=== PATIENT | female | born 1940 | race Caucasian/White ===

== ENCOUNTER 2020-03-12 15:29 | Outpatient (REF) | payer MEDICARE, SELFPAY ==
--- NOTE | 2020-03-12 15:37 | ECG_ITS ---
Test Reason : PREOP EVAL Blood Pressure : / mmHG Vent. Rate : 075 BPM Atrial Rate : 075 BPM P-R Int : 148 ms QRS Dur : 080 ms QT Int : 404 ms P-R-T Axes : 018 011 019 degrees QTc Int : 451 ms Normal sinus rhythm Normal ECG No previous ECGs available Referred By: Mireya Bolivar Electronically Signed By:KIMANI TENORIO MD
[2020-03-12 16:33] LABS: MANUAL DIFF FLAG NO
[2020-03-12 16:50] LABS: Basophils Absolute Auto 0.1 X10*3/uL (0.0-0.2); Basophils Percent Auto 0.9 % (0-2); Eosinophils Absolute Auto 0.2 X10*3/uL (0.0-0.4); Eosinophils Percent Auto 2.4 % (0-4); Hematocrit 39.9 % (37-47); Hemoglobin 13.6 g/dl (12.0-16.0); Imm Gran Abs Auto 0.01 X10*3/uL (0.00-0.03); Imm Gran Pct Auto 0.1 % (0.0-0.4); Lymphocytes Absolute Auto 3.2 X10*3/uL (1.2-4.9); Lymphocytes Percent Auto 41.2 % (20-40); Mean Corpuscular HGB Conc 34.1 g/dl (31.0-35.0); Mean Corpuscular Hemoglobin 31.5 pg (27.0-33.0); Mean Corpuscular Volume 92.4 fL (80-98); Mean Platelet Volume 9.8 fL (9.4-12.3); Monocytes Absolute Auto 0.6 X10*3/uL (0.1-1.2); Monocytes Percent Auto 8.4 % (2-11); Neutrophils Absolute Auto 3.6 X10*3/uL (2.0-8.3); Platelet Count 288 X10*3/uL (160-400); Red Blood Count 4.32 X10*6/uL (4.20-5.50); Red Cell Distribution Width 12.2 % (11.0-16.0); White Blood Count 7.7 X10*3/uL (4.8-10.8)
[2020-03-12 17:08] LABS: Alanine Aminotransferase 25 U/L (0-31); Albumin Level 4.4 g/dL (3.5-5.0); Alkaline Phosphatase 84 U/L (39-117); Anion Gap 12 (12-20); Aspartate Amino Transferase 23 U/L (5-31); Bilirubin Total 0.5 mg/dL (0.0-1.0); Blood Urea Nitrogen 21 mg/dL (9-16); Calcium 9.4 mg/dL (8.4-10.2); Carbon Dioxide 31 mmol/L (22-29); Chloride 99 mmol/L (96-108); Estimated Glomerular Filt Rate > 60; Glucose Random 95 mg/dL (60-115); Potassium 3.7 mmol/l (3.3-5.1); Sodium 138 mmol/L (135-145); Total Protein 6.8 g/dL (6.5-8.0)
== END 2020-03-12 15:30 | disposition home or self-care (01) ==
LOC: HO.LAB 15:29
PROVIDERS: PCP Internal Medicine; Visit Provider Physician Assistant
DX: Z01.818 Encounter for other preprocedural examination (principal)
CPT/HCPCS: 36415; 80053; 85025; 93005

== ENCOUNTER 2020-05-11 08:53 | Outpatient (REF) | payer MEDICARE, SELFPAY ==
[2020-05-11 10:14] LABS: Alanine Aminotransferase 18 U/L (0-31); Albumin Level 4.4 g/dL (3.5-5.0); Alkaline Phosphatase 79 U/L (39-117); Anion Gap 13 (12-20); Aspartate Amino Transferase 19 U/L (5-31); Blood Urea Nitrogen 19 mg/dL (9-16); Calcium 9.8 mg/dL (8.4-10.2); Carbon Dioxide 31 mmol/L (22-29); Chloride 99 mmol/L (96-108); Estimated Glomerular Filt Rate 60; Glucose Random 108 mg/dL (60-115); Potassium 4.2 mmol/l (3.3-5.1); Sodium 139 mmol/L (135-145)
== END 2020-05-11 08:54 | disposition home or self-care (01) ==
LOC: HO.LAB 08:53
PROVIDERS: PCP Internal Medicine; Visit Provider Physician Assistant
DX: I10 Essential (primary) hypertension (principal)
CPT/HCPCS: 80053

== ENCOUNTER 2020-08-31 09:07 | Outpatient (REF) | payer MEDICARE, SELFPAY ==
--- NOTE | ~2020-08-31 | MM_ITS ---
EXAMINATION: MM SCREENING DIGITAL BREAST TOMOSYNTHESIS, BILATERAL CLINICAL INFORMATION: Screening. Asymptomatic. The lifetime risk of breast cancer based on the Tyrer-Cuzick Model is 6.4%. COMPARISON: Mammography: May 20, 2019 and studies dating back to November 11, 2009 TECHNIQUE: Digital breast tomosynthesis is performed in both the craniocaudal and mediolateral oblique views along with computer-aided detection (CAD). Synthesized 2D images are generated from the tomosynthesis. FINDINGS: There are scattered areas of fibroglandular density (ACR BI-RADS breast composition Category b). There are no significant masses, abnormal calcifications, or other abnormalities. Stable region of architectural distortion seen deep lateral aspect of the right breast. MM/MM tomosynthesis screening BI IMPRESSION: There are no significant changes from prior study. ASSESSMENT: BI-RADS 2: Benign RECOMMENDATION: Routine annual mammography screening. This patient's information was entered into a reminder system with a target due date for their next mammogram.
== END 2020-08-31 09:08 | disposition home or self-care (01) ==
LOC: HO.MAMMO 09:07
PROVIDERS: Visit Provider Internal Medicine
DX: Z12.31 Encounter for screening mammogram for malignant neoplasm of breast (principal)
CPT/HCPCS: 77063; 77067

== ENCOUNTER 2020-10-06 08:22 | Outpatient (REF) | payer MEDICARE, SELFPAY ==
--- NOTE | 2020-10-06 18:07 | MHC.AU.AHA ---
Adult Audiological Evaluation Date of Visit: 10/06/20 Reason for Appointment: Audiological evaluation to monitor the status of Ms. Barrera's hearing loss. She has a known bilateral sensorineural hearing loss and uses hearing aids binaurally. She denies any significant changes to her hearing or medical history. Previous Hearing Test Results: [facility] [place], 07/16/2019- Mild to moderately severe sensorineural hearing loss bilaterally. Medical History: Medical History: Dizziness or Unsteadiness, High Blood Pressure, high cholesterol Hearing Instrument History- Right Ear: Clothing Supervisor: PhonoNoise Model: Audeo M90-R Serial Number: [id number] Battery Size: Rechargeable Repair Warranty: 09/15/2021 Loss and Damage Warranty: 09/15/2021 Dispensed By: [facility] Date of Fittin06/26/2018 Hearing Instrument History- Left Ear: Clothing Supervisor: Mobiveryak Model: White Rabbit Brewingeo M90-R Serial Number: [id number] Battery Size: Rechargeable Warranty: 09/15/2021 Loss and Damage Warranty: 09/15/2021 Dispensed By: [facility] Date of Fittin06/26/2018 Otoscopy: Right Ear: Unremarkable Left Ear: Unremarkable Tympanometry: Tympanometry performed due to: To assess integrity of the middle ear system Right Ear: Normal Middle Ear System (Type A) Left Ear: Normal Middle Ear System (Type A) Hearing Evaluation: Transducer(s) Used: Insert Earphones, Bone Conduction Method: Conventional Audiometry Stimuli Used: Pure Tones Right Ear: Description of Hearing: Normal hearing from 250-500 Hz, sloping to a mild to moderately severe sensorineural hearing loss bilaterally. Left Ear: Description of Hearing: Normal hearing from 250-500 Hz, sloping to a mild to moderately severe sensorineural hearing loss bilaterally. Speech Recognition Threshold (SRT): Method Used: Monitored Live Voice Stimuli Used: Spondee Words Right Ear: 30 dBHL Left Ear: 30 dBHL Word Discrimination: Method: Recorded Lists Word Lists Used: NU-6 Right Ear: 96% at 70 dBHL Left Ear: 100% at 70 dBHL Comparison: Compared to the most recent evaluation: Hearing is stable. Recommendations: Audiological re-evaluation in one year. Hearing aid maintenance performed today. Hearing aid(s) reprogrammed with updated test results. Diagnosis: Primary Diagnosis: H90.3 Bilateral Sensorineural Hearing Loss Services Performed: Comprehensive Audiological Evaluation (CPT 99719) Tympanometry (CPT 13419) Signature: Provider: Kyleigh Cummings, CCC-A
== END 2020-10-06 08:23 | disposition home or self-care (01) ==
LOC: HO.SH 08:22
PROVIDERS: Visit Provider Physician Assistant
DX: H90.3 Sensorineural hearing loss, bilateral (principal)
CPT/HCPCS: 92557; 92567

== ENCOUNTER 2021-05-18 08:56 | Outpatient (REF) | payer MEDICARE, SELFPAY ==
[2021-05-18 09:06] LABS: MANUAL DIFF FLAG NO
[2021-05-18 09:31] LABS: Basophils Absolute Auto 0.1 X10*3/uL (0.0-0.2); Basophils Percent Auto 1.2 % (0-2); Eosinophils Absolute Auto 0.2 X10*3/uL (0.0-0.4); Eosinophils Percent Auto 3.5 % (0-4); Hematocrit 40.1 % (37.0-47.0); Hemoglobin 13.3 g/dl (12.0-16.0); Imm Gran Abs Auto 0.01 X10*3/uL (0.00-0.03); Imm Gran Pct Auto 0.2 % (0.0-0.4); Lymphocytes Absolute Auto 2.5 X10*3/uL (1.2-4.9); Lymphocytes Percent Auto 43.2 % (20-40); Mean Corpuscular HGB Conc 33.2 g/dl (31.0-35.0); Mean Corpuscular Hemoglobin 28.3 pg (27.0-33.0); Mean Corpuscular Volume 85.3 fL (80.0-98.0); Mean Platelet Volume 9.3 fL (9.4-12.3); Monocytes Absolute Auto 0.6 X10*3/uL (0.1-1.2); Monocytes Percent Auto 10.1 % (2-11); Neutrophils Absolute Auto 2.4 x10*3/uL (2.0-8.3); Neutrophils Percent Auto 41.8 % (45-73); Platelet Count 314 X10*3/uL (160-400); Red Cell Distribution Width 13.4 % (11.0-16.0); White Blood Count 5.7 X10*3/uL (4.8-10.8)
[2021-05-18 09:56] LABS: Alanine Aminotransferase 19 U/L (0-31); Albumin Level 4.4 g/dL (3.5-5.0); Alkaline Phosphatase 78 U/L (39-117); Anion Gap 11 (12-20); Aspartate Amino Transferase 21 U/L (5-31); Bilirubin Total 0.8 mg/dL (0.0-1.0); Blood Urea Nitrogen 16 mg/dL (9-16); Carbon Dioxide 31 mmol/L (22-29); Chloride 102 mmol/L (96-108); Cholesterol 159 mg/dL; Estimated Glomerular Filt Rate 58; Glucose Random 107 mg/dL (60-115); HDL Cholesterol 47 mg/dL; LDL Cholesterol Calculated 89 mg/dl; Potassium 4.1 mmol/L (3.3-5.1); Sodium 140 mmol/L (135-145); Triglycerides 116 mg/dL
== END 2021-05-18 08:57 | disposition home or self-care (01) ==
LOC: HO.LAB 08:56
PROVIDERS: PCP Internal Medicine; Visit Provider Physician Assistant
DX: E78.2 Mixed hyperlipidemia (principal)
CPT/HCPCS: 36415; 80053; 80061; 85025

== ENCOUNTER 2021-07-07 11:28 | Outpatient (REF) | payer SELFPAY | END 2021-07-07 11:29 | disposition home or self-care (01) | LOC: HO.HAP 11:28 | PROVIDERS: Visit Provider Internal Medicine | DX: Z13.89 Encounter for screening for other disorder (principal) ==

== ENCOUNTER 2021-07-15 12:48 | Outpatient (REF) | payer SELFPAY | END 2021-07-15 12:49 | disposition home or self-care (01) | LOC: HO.HAP 12:48 | PROVIDERS: Visit Provider Internal Medicine | DX: Z13.89 Encounter for screening for other disorder (principal) ==

== ENCOUNTER 2021-08-05 09:52 | Outpatient (REF) | payer SELFPAY | END 2021-08-05 09:53 | disposition home or self-care (01) | LOC: HO.HAP 09:52 | PROVIDERS: Visit Provider Internal Medicine | DX: Z13.89 Encounter for screening for other disorder (principal) ==

== ENCOUNTER 2021-08-18 10:54 | Outpatient (REF) | payer SELFPAY | END 2021-08-18 10:55 | disposition home or self-care (01) | LOC: HO.HAP 10:54 | PROVIDERS: Visit Provider Internal Medicine | DX: Z13.89 Encounter for screening for other disorder (principal) ==

== ENCOUNTER 2021-09-02 10:09 | Outpatient (REF) | payer MEDICARE, SELFPAY ==
--- NOTE | ~2021-09-02 | MM_ITS ---
EXAMINATION: MM SCREENING DIGITAL BREAST TOMOSYNTHESIS, BILATERAL CLINICAL INFORMATION: Screening. Asymptomatic. The lifetime risk of breast cancer based on the Tyrer-Cuzick Model is 5%. COMPARISON: Mammography: 08/31/2020, 05/20/2019, 05/15/2018 TECHNIQUE: Digital breast tomosynthesis is performed in both the craniocaudal and mediolateral oblique views along with computer-aided detection (CAD). Synthesized 2D images are generated from the tomosynthesis. FINDINGS: There are scattered areas of fibroglandular density (ACR BI-RADS breast composition Category b). There are no significant masses, abnormal calcifications, or other abnormalities. There is a dermal lesion overlying the posterior aspect 10:30 o'clock left breast. Bilateral vascular and some scattered benign round calcifications are again noted. MM/MM tomosynthesis screening BI IMPRESSION: No mammographic evidence of malignancy. ASSESSMENT: BI-RADS 2: Benign RECOMMENDATION: Routine annual mammography screening. This patient's information was entered into a reminder system with a target due date for their next mammogram.
== END 2021-09-02 10:10 | disposition home or self-care (01) ==
LOC: HO.MAMMO 10:09
PROVIDERS: PCP Internal Medicine; Visit Provider Internal Medicine
DX: Z12.31 Encounter for screening mammogram for malignant neoplasm of breast (principal)
CPT/HCPCS: 77063; 77067

== ENCOUNTER 2022-01-06 10:13 | Outpatient (REF) | payer MEDICARE, SELFPAY ==
--- NOTE | 2022-01-06 12:55 | MHC.AU.AHA ---
Adult Audiological Evaluation Date of Visit: 01/06/22 Reason for Appointment: History of hearing loss. Patient suspects there has been a small change in her hearing since her last evaluation on 10/06/2020. Previous Hearing Test Results: At this clinic on 10/06/2020- Normal to severe sensorineural hearing loss bilaterally Medical History: Medical History: Dizziness or Unsteadiness, High Blood Pressure. Patient reports her seasonal allergies have been bad this summer. Hearing Instrument History- Right Ear: Ivory Carver: Huitongda Model: Origen Therapeuticseo M90-R Serial Number: [id number] Battery Size: Rechargeable Repair Warranty: 09/15/2021 Loss and Damage Warranty: 09/15/2021 Dispensed By: [facility] Date of Fittin06/26/2018 Hearing Instrument History- Left Ear: Ivory Carver: Ella Healthak Model: Origen Therapeuticseo M90-R Serial Number: [id number] Battery Size: Rechargeable Warranty: 09/15/2021 Loss and Damage Warranty: 09/15/2021 Dispensed By: [facility] Date of Fittin06/26/2018 Otoscopy: Right Ear: Unremarkable Left Ear: Unremarkable Tympanometry: Tympanometry performed due to: To assess integrity of the middle ear system Right Ear: Normal Middle Ear System (Type A) Left Ear: Normal Middle Ear System (Type A) Hearing Evaluation: Transducer(s) Used: Insert Earphones Method: Conventional Audiometry Stimuli Used: Pure Tones Right Ear: Description of Hearing: Normal sloping to severe sensorineural hearing loss Left Ear: Description of Hearing: Mild sloping to severe sensorineural hearing loss Speech Recognition Threshold (SRT): Method Used: Recorded Lists Stimuli Used: Spondee Words Right Ear: 30 dBHL Left Ear: 30 dBHL Word Discrimination: Method: Recorded Lists Word Lists Used: W-22 Right Ear: 92% at 70 dBHL Left Ear: 96% at 70 dBHL Most Comfortable Level (MCL): Right Ear: 70 dBHL Left Ear: 70 dBHL Comparison: Compared to most recent evaluation: Slight decreases noted Recommendations: Audiological re-evaluation in one year. See Hearing Aid Follow-Up note for more information. Diagnosis: Primary Diagnosis: H90.3 Bilateral Sensorineural Hearing Loss Signature: Provider: Kyleigh Jane, GERMAN-A
--- NOTE | 2022-01-06 12:56 | MHC.AU.HFU ---
Hearing Instrument Follow-Up- Binaural Date of Visit: 01/06/22 Right Ear: Education Technician: Phonak Model: Audeo M90-R Serial Number: [id number] Repair Warranty: 09/15/2021 Loss and Damage Warranty: 09/15/2021 Battery Size: Rechargeable Explosive Ordnance Disposal Manager: Size 1 M Type of Dome: Small Vented Type of Wax Guard: Cerushield Left Ear: Education Technician: Phonak Model: Audeo M90-R Serial Number: [id number] Repair Warranty: 09/15/2021 Loss and Damage Warranty: 09/15/2021 Battery Size: Rechargeable Explosive Ordnance Disposal Manager: Size 1 M Type of Dome: Small Vented Type of Wax Guard: Cerushield Follow-Up Summary: Patient was seen for audiological re-evaluation (see separate report for details). Patient reports the hearing aids have been occasionally buzzing. Hearing aid maintenance performed. Hearing aid programming updated with today's results. It was noted that she had on cap domes, and the feedback canceller was cutting out some high frequency gain already. Re-raun feedback canceller with no improvement in feedback or gain. Tried small vented domes and re-ran feedback canceller, with no improvement. The receivers did not seem to be going deep enough into her ears, which was likely preventing an adequate seal. Replaced 0M receivers with 1M receivers with significant improvement in feedback. Re-ran feedback finance manager which brought back more high frequency gain. Patient was pleased with the sound and fit of the instruments. Recommendations: Hearing instrument follow-up or maintenance as needed. Diagnosis Code(s): Primary Diagnosis: H90.3 Bilateral Sensorineural Hearing Loss Signature: Provider: Kyleigh Jane, [facility]
== END 2022-01-06 10:14 | disposition home or self-care (01) ==
LOC: HO.SH 10:13
PROVIDERS: Visit Provider Physician Assistant
DX: Z01.118 Encounter for examination of ears and hearing with other abnormal findings (principal); H90.3 Sensorineural hearing loss, bilateral
CPT/HCPCS: 92557; 92567

== ENCOUNTER 2022-01-27 06:55 | Outpatient (REF) | payer MEDICARE, SELFPAY ==
[2022-01-27 11:29] LABS: MANUAL DIFF FLAG NO
[2022-01-27 11:42] LABS: Prothrombin Time 11.1 SEC (10.0-13.1)
[2022-01-27 11:43] LABS: Basophils Absolute Auto 0.1 X10*3/uL (0.0-0.2); Basophils Percent Auto 1.3 % (0-2); Eosinophils Absolute Auto 0.3 X10*3/uL (0.0-0.4); Eosinophils Percent Auto 5.3 % (0-4); Hematocrit 38.9 % (37.0-47.0); Hemoglobin 13.1 g/dl (12.0-16.0); Imm Gran Abs Auto 0.03 X10*3/uL (0.00-0.03); Imm Gran Pct Auto 0.6 % (0.0-0.4); Lymphocytes Absolute Auto 1.7 X10*3/uL (1.2-4.9); Lymphocytes Percent Auto 35.6 % (20-40); Mean Corpuscular HGB Conc 33.7 g/dl (31.0-35.0); Mean Corpuscular Hemoglobin 27.9 pg (27.0-33.0); Mean Corpuscular Volume 82.9 fL (80.0-98.0); Mean Platelet Volume 9.7 fL (9.4-12.3); Monocytes Absolute Auto 0.5 X10*3/uL (0.1-1.2); Monocytes Percent Auto 11.2 % (2-11); Neutrophils Absolute Auto 2.2 x10*3/uL (2.0-8.3); Platelet Count 311 X10*3/uL (160-400); Red Blood Count 4.69 X10*6/uL (4.20-5.50); Red Cell Distribution Width 14.3 % (11.0-16.0); White Blood Count 4.8 X10*3/uL (4.8-10.8)
[2022-01-27 11:54] LABS: Estimated Average Glucose 111 mg/dL; Hemoglobin A1c % 5.5 %
[2022-01-27 12:19] LABS: Alanine Aminotransferase 21 U/L (0-31); Albumin Level 4.2 g/dL (3.5-5.0); Alkaline Phosphatase 78 U/L (39-117); Anion Gap 16 (12-20); Aspartate Amino Transferase 21 U/L (5-31); Bilirubin Total 0.8 mg/dL (0.0-1.0); Blood Urea Nitrogen 16 mg/dL (9-16); Calcium 9.4 mg/dL (8.4-10.2); Carbon Dioxide 29 mmol/L (22-29); Chloride 97 mmol/L (96-108); Cholesterol 222 mg/dL; Estimated Glomerular Filt Rate 59; Glucose Fasting 107 mg/dL (60-99); HDL Cholesterol 47 mg/dL; LDL Cholesterol Calculated 141 mg/dl; Potassium 3.8 mmol/L (3.3-5.1); Sodium 138 mmol/L (135-145); Total Protein 6.9 g/dL (6.5-8.0); Triglycerides 170 mg/dL
[2022-01-27 12:39] LABS: TSH reflex Free T4 2.96 uIU/mL (0.32-4.0)
[2022-01-27 14:05] LABS: Appearance Urine Clear; Color Urine Yellow; Glucose Urine UA Negative (Negative); Leukocyte Esterase Urine Trace (Negative); Nitrite Urine Negative (Negative); PH 6.5 (5.0-8.0); Urine Blood Negative (Negative); Urine Ketones Negative (Negative); Urine Protein Negative (Neg-Trace)
[2022-01-27 14:10] LABS: Bacteria Urine None Seen (None Seen); Hyaline Casts Urine 0-2 /LPF (0-2); RBC Urine 0-2 /HPF (0-2); Squamous Epithelial Cell Urine 0-2 /HPF (0-2); WBC Urine 0-5 /HPF (0-5)
== END 2022-01-27 06:56 | disposition home or self-care (01) ==
LOC: HO.HMGCLDS 06:55
PROVIDERS: PCP Internal Medicine; Visit Provider Internal Medicine
DX: E55.9 Vitamin D deficiency, unspecified (principal); E78.5 Hyperlipidemia, unspecified; R73.9 Hyperglycemia, unspecified; I10 Essential (primary) hypertension
CPT/HCPCS: 36415; 80053; 80061; 81001; 83036; 84443; 85025; 85610

== ENCOUNTER 2022-09-04 10:18 | Outpatient (REF) | payer MEDICARE, SELFPAY ==
--- NOTE | ~2022-09-04 | MM_ITS ---
EXAMINATION: MM SCREENING DIGITAL BREAST TOMOSYNTHESIS, BILATERAL CLINICAL INFORMATION: Screening. Asymptomatic. The lifetime risk of breast cancer based on the Tyrer-Cuzick Model is 4%. COMPARISON: Mammography: 09/02/2021, 08/31/2020, 05/20/2019 TECHNIQUE: Digital breast tomosynthesis is performed in both the craniocaudal and mediolateral oblique views along with computer-aided detection (CAD). Synthesized 2D images are generated from the tomosynthesis. FINDINGS: There are scattered areas of fibroglandular density (ACR BI-RADS breast composition Category b). There are no significant masses, abnormal calcifications, or other abnormalities. No architectural abnormality or developing density or significant change from prior studies. Again, there is a dermal lesion overlying the posterior medial left breast. The axilla are unremarkable. MM/MM tomosynthesis screening BI IMPRESSION: No mammographic evidence of malignancy. ASSESSMENT: BI-RADS 2: Benign RECOMMENDATION: Routine annual mammography screening. This patient's information was entered into a reminder system with a target due date for their next mammogram.
== END 2022-09-04 10:19 | disposition home or self-care (01) ==
LOC: HO.MAMMO 10:18
PROVIDERS: PCP Internal Medicine; Visit Provider Internal Medicine
DX: Z12.31 Encounter for screening mammogram for malignant neoplasm of breast (principal)
CPT/HCPCS: 77063; 77067

== ENCOUNTER 2022-10-16 09:47 | Outpatient (REF) | payer MEDICARE, SELFPAY ==
[2022-10-16 11:20] LABS: MANUAL DIFF FLAG NO
[2022-10-16 11:33] LABS: Hematocrit 35.3 % (37.0-47.0); Hemoglobin 11.9 g/dl (12.0-16.0); Imm Gran Abs Auto 0.01 X10*3/uL (0.00-0.03); Imm Gran Pct Auto 0.2 % (0.0-0.4); Lymphocytes Absolute Auto 2.3 X10*3/uL (1.2-4.9); Lymphocytes Percent Auto 43.6 % (20-40); Mean Corpuscular HGB Conc 33.7 g/dl (31.0-35.0); Mean Corpuscular Hemoglobin 26.4 pg (27.0-33.0); Mean Corpuscular Volume 78.3 fL (80.0-98.0); Mean Platelet Volume 9.7 fL (9.4-12.3); Monocytes Absolute Auto 0.5 X10*3/uL (0.1-1.2); Monocytes Percent Auto 9.4 % (2-11); Neutrophils Absolute Auto 2.4 x10*3/uL (2.0-8.3); Neutrophils Percent Auto 46.8 % (45-73); Platelet Count 288 X10*3/uL (160-400); Red Blood Count 4.51 X10*6/uL (4.20-5.50); Red Cell Distribution Width 15.9 % (11.0-16.0); White Blood Count 5.2 X10*3/uL (4.8-10.8)
[2022-10-16 12:09] LABS: Alanine Aminotransferase 14 U/L (0-31); Albumin Level 4.2 g/dL (3.5-5.0); Alkaline Phosphatase 67 U/L (39-117); Anion Gap 11 (12-20); Aspartate Amino Transferase 17 U/L (5-31); Bilirubin Total 0.5 mg/dL (0.0-1.0); Blood Urea Nitrogen 24 mg/dL (9-16); Calcium 9.4 mg/dL (8.4-10.2); Carbon Dioxide 32 mmol/L (22-29); Chloride 99 mmol/L (96-108); Cholesterol 190 mg/dL; Estimated Glomerular Filt Rate 59; Glucose Fasting 93 mg/dL (60-99); HDL Cholesterol 48 mg/dL; LDL Cholesterol Calculated 123 mg/dl; Potassium 3.5 mmol/L (3.3-5.1); Sodium 138 mmol/L (135-145); Total Protein 6.6 g/dL (6.5-8.0); Triglycerides 97 mg/dL; Vitamin D 25-OH Total 23.3 ng/mL (>30)
[2022-10-16 16:40] LABS: Appearance Urine Turbid; Color Urine Yellow; Glucose Urine UA Negative (Negative); Leukocyte Esterase Urine Negative (Negative); Nitrite Urine Negative (Negative); Urine Blood Negative (Negative); Urine Ketones Negative (Negative); Urine Protein Negative (Neg-Trace)
== END 2022-10-16 09:48 | disposition home or self-care (01) ==
LOC: HO.HMGCLDS 09:47
PROVIDERS: PCP Internal Medicine; Visit Provider Internal Medicine
DX: R35.0 Frequency of micturition (principal); R73.9 Hyperglycemia, unspecified; E78.5 Hyperlipidemia, unspecified; I10 Essential (primary) hypertension; E55.9 Vitamin D deficiency, unspecified
CPT/HCPCS: 36415; 80053; 80061; 81003; 82306; 85025

== ENCOUNTER 2022-12-25 11:39 | Outpatient (REF) | payer SELFPAY ==
--- NOTE | 2022-12-25 12:17 | MHC.AU.HA3 ---
Hearing Instrument Follow-Up- Binaural Date of Visit: 12/25/22 Right Ear: Model Taj, Color, Serial Number: Nicole Solomon M90-R SN: [id number] Color: Stephania Service Car Operator Repair Warranty: 09/15/2021 Service Car Operator Loss and Damage Warranty: 09/15/2021 Battery Size: Rechargeable Vp Medical/Slim Tube: Size 1 M Earmold/Dome/CShell/SlimTip:Small vented dome Type of Wax Guard: Cerushield Dispensed By: [facility] Date of Fittin06/26/2018 Left Ear: Taj, , Color, Serial Number: Nicole Solomon M90-R SN: [id number] Color: Stephania Service Car Operator Repair Warranty: 09/15/2021 Service Car Operator Loss and Damage Warranty: 09/15/2021 Battery Size: Rechargeable Vp Medical/Slim Tube: Size 1 M Earmold/Dome/CShell/SlimTip: Small vented dome Type of Wax Guard: Cerushield Dispensed By: [facility] Date of Fittin06/26/2018 Follow-Up Summary: Crystal dropped off both hearing aids reporting that they sounded weak. Upon inspection, significant wax/debris noted in domes and wax guards - almost completely occluding. Cleaned hearing aids. Vacuumed microphones. Ran through dehumidifier. Replaced domes, wax guards, and retention tails. A listening check demonstrated that the hearing aids are in good working order. Recommendations: Hearing instrument follow-up or maintenance as needed. Diagnosis Code(s): Primary Diagnosis: H90.3 Bilateral Sensorineural Hearing Loss Signature: Provider: Jose C Monique, [facility]
== END 2022-12-25 11:40 | disposition home or self-care (01) ==
LOC: HO.HAP 11:39
PROVIDERS: Visit Provider Internal Medicine
DX: Z46.1 Encounter for fitting and adjustment of hearing aid (principal)
CPT/HCPCS: 92592

== ENCOUNTER 2023-01-17 09:40 | Outpatient (AMB) | payer MEDICARE, SELFPAY ==
--- NOTE | 2023-01-17 09:53 | A.OFFVIS_ITS ---
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 She has take Robaxin in the past but she finds makes her tired. She like to return to physical therapy. The patient also reports intermittent pain in her low back. She did undergo lumbar spinal fusion surgery several years ago. She denies any fevers or chills. 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 Mother No problems noted. Social History Household Members Other:: , lives with sister, 2 daughters, 3 grandchildren Housing: [facility] Patient Tobacco Use Status: Never used Tobacco e-Cigarette/Vaping Use: Never Used Current occupational status: retired Cognitive needs: No Hearing needs: Yes Vision needs: No Physical Exam Vital Signs: BMI result Body Mass Index 30.9 Const Other: Well-nourished well-developed very friendly female awake alert and oriented x3 in no acute distress Back/Spine/Pelvis Other: Low back examination shows minimal discomfort range of motion, mild bilateral paraspinal muscle tenderness Extrem Other: Bilateral lower extremity examination shows good capillary refill, no skin lesions noted, normal sensation light touch Left hip examination shows that the surgical incision is well healed, no erythema, minimal discomfort with range of motion, mild tenderness over her bursa, no overlying skin lesions Results Reviewed Results Reviewed: X-rays of the patient's lumbar spine taken today show hardware at level L4-L5 with no signs of loosening, no acute bony abnormalities X-rays of the patient's left hip taken today show total hip arthroplasty in good position with no signs of loosening, no acute bony abnormalities Assessment & Plan Assessment & Plan (1) Low back pain: Code(s): M54.50 - Low back pain, unspecified Plan: Ms. Barrera continues to do fairly well after undergoing left total hip replacement surgery. She does have intermittent discomfort most likely due to greater trochanteric bursitis as well as deconditioning. Thus, I gave the patient a prescription for formal physical therapy. She does know to take antibiotics before any dental work. She will contact me prior to her fall mine in 3 months should her symptoms worsen in any way. Feel free to call me at any time should questions regarding her orthopedic management arise. I spent 22 minutes in reviewing the patient's records and imaging studies, seeing the patient and documenting in the medical record. (2) Left hip pain: Code(s): M25.552 - Pain in left hip Orders: Orders XR pelvis 1-2V Today M25.551 - Pain in right hip XR lumbar spine 2-3V Today M54.50 - Low back pain, unspecified PT Evaluation and Treatment Today M25.552 - Pain in left hip, M54.50 - Low back pain, unspecified Coding Level of Care Code Est Pt Level 2 (52870) Diagnoses Low back pain M54.50 Left hip pain M25.552
[2023-01-17 09:55] VITALS: BMI 30.9
== END 2023-01-17 10:50 | disposition home or self-care (01) ==
PROVIDERS: PCP Internal Medicine; Visit Provider Orthopaedic Surgery
DX: M54.50 Low back pain, unspecified (principal); M25.552 Pain in left hip
CPT/HCPCS: 99212

== ENCOUNTER 2023-01-17 09:40 | Outpatient (REF) | payer MEDICARE, SELFPAY ==
--- NOTE | ~2023-01-17 | XR_ITS ---
EXAMINATION: 1. PELVIC X-RAY 2. RADIOGRAPHS LUMBAR SPINE CLINICAL INFORMATION: Low back and right hip pain COMPARISON: None TECHNIQUE: Frontal view of the pelvis and 2 views of the lumbar spine were obtained. FINDINGS: Lumbar spine: 5 nonrib-bearing lumbar vertebral bodies are visualized. There is moderate dextroscoliosis of the lumbar spine centered at L3/4. Also noted is mild anterolisthesis of L4 on L5. Lumbar vertebral body heights are maintained. There is severe disc space narrowing at the L1/2 level mild to moderate disc space narrowing throughout the remainder of the lumbar spine. There is posterior fusion hardware at L4/5 which is unremarkable. Prominent vascular calcifications noted. Pelvis: The pelvic ring is intact. Left total hip arthroplasty is in good orientation. There is no periprosthetic fracture of the left hip. There are moderate degenerative changes of the right hip without fracture or dislocation. XR/XR pelvis 1-2V IMPRESSION: 1. Moderate diffuse degenerative changes of the lumbar spine without compression deformity. 2. No pelvic fracture. 3. Left total hip arthroplasty without fracture or dislocation.
--- NOTE | ~2023-01-17 | XR_ITS ---
EXAMINATION: 1. PELVIC X-RAY 2. RADIOGRAPHS LUMBAR SPINE CLINICAL INFORMATION: Low back and right hip pain COMPARISON: None TECHNIQUE: Frontal view of the pelvis and 2 views of the lumbar spine were obtained. FINDINGS: Lumbar spine: 5 nonrib-bearing lumbar vertebral bodies are visualized. There is moderate dextroscoliosis of the lumbar spine centered at L3/4. Also noted is mild anterolisthesis of L4 on L5. Lumbar vertebral body heights are maintained. There is severe disc space narrowing at the L1/2 level mild to moderate disc space narrowing throughout the remainder of the lumbar spine. There is posterior fusion hardware at L4/5 which is unremarkable. Prominent vascular calcifications noted. Pelvis: The pelvic ring is intact. Left total hip arthroplasty is in good orientation. There is no periprosthetic fracture of the left hip. There are moderate degenerative changes of the right hip without fracture or dislocation. XR/XR lumbar spine 2-3V IMPRESSION: 1. Moderate diffuse degenerative changes of the lumbar spine without compression deformity. 2. No pelvic fracture. 3. Left total hip arthroplasty without fracture or dislocation.
== END 2023-01-17 09:41 | disposition home or self-care (01) ==
LOC: HO.HOSX 09:40
PROVIDERS: PCP Internal Medicine; Visit Provider Orthopaedic Surgery
DX: M54.50 Low back pain, unspecified (principal); M25.551 Pain in right hip; M25.552 Pain in left hip
CPT/HCPCS: 72100; 72170; 99212

== ENCOUNTER 2023-01-29 09:00 | Outpatient (RCR) | payer MEDICARE, SELFPAY ==
--- NOTE | 2022-10-25 11:34 | MHC.PT.EP ---
[facility] [place] Office [place] Office [place] Office [address] Francis Matthews [address] [phone] F: [phone] F: [phone] F: [phone] F: [phone] Physical Therapy Plan of Care Date of Evaluation: Date of Surgery: n/a Diagnosis: low back pain Assessment: Patient is a 82 year old female presenting to PT with complaints of pain in her low back. Pt reports onset of pain began February 2022 due to insidious onset but shortly after her L MTICHELL. She presents today with impairments in pain, lumbar ROM, hip strength, core strength, posture. Pt's current occupation is retired, with baseline physical activities including ambulating, stair negotiation, ADLs, standing. Pt expresses correction goal of reducing pain, and is motivated to work towards this in PT. Clinical presentation today is most consistent with signs and sx associated with low back pain and pt will benefit from skilled PT 2 week x 4 weeks to address the following problems and impairments noted upon evaluation: pain, lumbar ROM, hip strength, core strength, posture. These problems limit the patient with the following functional activities: standing, ambulating, stair negotiation, ADLs. The prescribed treatment plan of care is medically necessary. Co-morbidities of L MITCHELL Feb 2022, TKA 2020were identified and taken into considerations of plan of care. Pt was educated on HEP, role of PT, prognosis, POC. Frequency and Duration: The patient will be seen 2 x week x 4 weeks Short Term Goals: Pt will demonstrate ability to perform PPT with good control in 2 weeks. Pt will demonstrate improved hip MMT strength by 1/3 grade in 2 weeks for improved lumbopelvic stability. Pt will demonstrate reports of reduced pain overall in 2 weeks. Mail Inserter Goals: Pt will demonstrate improved Tha score by 10% in 4 weeks for improved functional mobility. Pt will demonstrate ability to stand with min to no pain for improved tolerance to cleaning and ADLs in 4 weeks. Pt will demonstrate ability to ambulate around her condo complex with min to no pain in 4 weeks for improved tolerance to ambulating. Treatment Plan: Modalities to reduce pain, spasms and effusion. Manual therapy to restore motion and function. Therapeutic exercise to improve strength and flexibility. Neuromuscular re-education for posture and balance. Therapeutic activities to return to functional activities of daily living. Electronically signed by: Charissa Yuan PT, DPT, ATC Please sign and return to therapist. Thank you for your referral.
--- NOTE | 2023-02-28 10:15 | MHC.PT.DC ---
[facility] [place] Office [place] Office [place] Office [address] Francis Matthews [address] [phone] F: [phone] F: [phone] F: [phone] F: [phone] Physical Therapy Discharge Report Diagnosis: low back pain Date of Surgery: n/a Date of Evaluation: 10/25/22 Date of Discharge: 02/28/23 Treatments to Date: Cancellations to Date: 2 No Shows to Date: 0 Discharge Status: Recommend MD Follow-up Discharge Summary: Pt has not attended skilled PT in >30 days and therefore to be d/c per policy. At last visit she was still having sx/pain and discussed recommendation to follow up with specialist as we have maximized PT at this point with multiple different interventions trialed all without significant reduction in pain. Electronically signed by: Charissa Yuan, PT, DPT, ATC Please sign and return to therapist. Thank you for your referral.
== END 2023-02-28 10:15 | disposition home or self-care (01) ==
LOC: HO.PTCHIC 09:00
PROVIDERS: PCP Internal Medicine; Visit Provider Internal Medicine
DX: M54.50 Low back pain, unspecified (principal)
CPT/HCPCS: 97014; 97110; 97140; 97161; 97530

== ENCOUNTER 2023-02-24 14:22 | Outpatient (REF) | payer MEDICARE, SELFPAY ==
--- NOTE | ~2023-02-24 | MR_ITS ---
EXAMINATION: MR LUMBAR SPINE WITHOUT CONTRAST CLINICAL INFORMATION: Low back pain. Left lower extremity pain. COMPARISON: Lumbar spine radiograph 11/17/2022. TECHNIQUE: MRI of the lumbar spine was obtained using routine sequences without contrast. FINDINGS: There are chronic postoperative changes of a posterior spinal fusion with transpedicular hardware extending from L4 to L5. There is spinal scoliosis with a rightward convex curvature centered at L3 and a compensatory leftward convex curvature at the thoracolumbar junction. There is grade 2 anterolisthesis of L4 on L5. Slight grade 1 retrolisthesis of L1 on L2 and L2 on L3. Vertebral heights are preserved. There are mixed degenerative endplate changes at L1-L2 anterolisthesis or extent at L5-S1. There is loss of intervertebral disc height and T2 signal intensity at multiple levels related to disc degeneration. The tip of the conus medullaris is located at L1. No mass effect on the conus. Visualized distal cord signal intensity is normal. At L1-L2 there is a bulging disc and bilateral facet degenerative change. No canal stenosis. Partial effacement of perineural fat without overt compression of the right L1 foraminal nerve root. At L2-L3 there is an asymmetrically bulging disc to the left. Bilateral facet degenerative change. No canal stenosis. Asymmetric narrowing left centimeters on causes abutment of the left traversing L3 nerve roots. Mild to moderate mass effect on the left L2 foraminal nerve root. At L3-L4 there is a shallow left subarticular protrusion superimposed upon a bulging disc. Bilateral facet degenerative change. Mild canal stenosis. Subarticular zone narrowing causes asymmetric compression of the left traversing L4 nerve roots. Moderate compression of the left L3 foraminal nerve root. At L4-L5 there are chronic postoperative changes of a right laminectomy. There is a pseudodisc bulge. No canal stenosis. No mass effect on the traversing or foraminal nerve roots. At L5-S1 there is a bulging disc. Bilateral facet degenerative change. No canal stenosis. Moderate compression of the right L5 foraminal nerve root and mild compression of the left L5 foraminal nerve root. Limited visualization of the retroperitoneal anatomy reveals no abnormal finding. There is a well marginated benign-appearing cystic lesion within the right kidney. Psoas and paraspinal muscle groups are symmetric. MR/MR lumbar spine wo con IMPRESSION: There are chronic postoperative changes of a posterior spinal fusion with transpedicular hardware extending from L4 to L5. There is grade 2 anterolisthesis of L4 on L5. Slight grade 1 retrolisthesis of L1 on L2 and L2 on L3. There is mild canal stenosis at L3-L4. Otherwise no canal compromise. There are varying degrees of mass effect on the traversing and foraminal segments of the nerve roots as described above.
== END 2023-02-24 14:23 | disposition home or self-care (01) ==
LOC: HO.MRI 14:22
PROVIDERS: PCP Internal Medicine; Visit Provider Orthopaedic Surgery
DX: M54.50 Low back pain, unspecified (principal)
CPT/HCPCS: 72148

== ENCOUNTER 2023-03-08 10:11 | Outpatient (AMB) | payer MEDICARE, SELFPAY ==
[2023-03-08 10:27] VITALS: BMI 30.9
--- NOTE | 2023-03-08 10:27 | MHC.OFFVIS ---
Intake Vital Signs 03/08/23 10:27 Height 5 ft 4 in Weight 180 lb BMI 30.9 Intake Visit Reasons: ov- MRI Lumbar Spine review Intake Note: Crystal 82 yr old female presents today with complaints of progressively worsening low back pain which radiates down her left leg. The patient did undergo left total hip replacement surgery on 02/16/2022. She denies any pain in her groin. She did undergo lumbar spinal fusion surgery in 2016. That surgery was performed at [facility]. She denies any fevers or chills. She has taken Robaxin for muscle spasms in her lower extremities. The Robaxin made her tired. She has done formal physical therapy which aggravated her symptoms. Allergies ampicillin [AMPICILLIN] Allergy (Unknown, Verified 03/08/23 10:28) UNKNOWN tetracycline [TETRACYCLINE] Allergy (Unknown, Verified 03/08/23 10:28) UNKNOWN Medication List - Last Reconciled 03/08/23 by Ottoniel Wells MD aspirin-caffeine 500-32.5 mg ([facility]) tabs PO clindamycin HCl 600 mg (2 x 300 mg) PO ONCE hydrochlorothiazide 25 mg PO DAILY [facility] Surgical History (Updated 01/17/23 @ 09:58 by Bailey Molina [facility]) History of lumbar fusion History of total right hip replacement (02/16/22) Family History (Updated 10/16/22 @ 09:07 by Sunni Mitchell [facility]) Father No problems noted. Mother No problems noted. Social History Household Members Other:: , lives with sister, 2 daughters, 3 grandchildren Housing: [facility] Patient Tobacco Use Status: Never used Tobacco e-Cigarette/Vaping Use: Never Used Current occupational status: retired Cognitive needs: No Hearing needs: Yes Vision needs: No Physical Exam Vital Signs: BMI result Body Mass Index 30.9 Const Other: Well-nourished well-developed very friendly female awake alert and oriented x3 in no acute distress Extrem Other: Bilateral lower extremity examination shows good capillary refill, no skin lesions noted, normal sensation light touch Left hip examination shows mild discomfort with range of motion, minimal tenderness over her bursa Results Reviewed Results Reviewed: X-rays of the patient's left hip show a total hip arthroplasty in good position with no signs of loosening, no acute bony abnormalities MRI report of the patient's lumbar spine shows mild to moderate mass effect on the left L2 foraminal nerve root, with moderate compression of the left L3 foraminal nerve root the; varying degrees of mass effect on the traversing and foraminal segments of the nerve roots Assessment & Plan Assessment & Plan (1) Lumbar stenosis: Code(s): M48.061 - Spinal stenosis, lumbar region without neurogenic claudication Plan Ms. Barrera presents with low back pain which radiates down her left leg possibly due to lumbar stenosis. The patient does not appear to have any abnormalities with her left total hip arthroplasty. Thus, I will arrange for the evaluated in our neurosurgery department. She will continue with activity modifications in the meantime. Feel free to call me at any time should any questions regarding her orthopedic management arise. I spent 20 minutes in reviewing the patient's records and imaging studies, seeing the patient and documenting in the medical record. Orders: Referrals Neurosurgery Referral M48.061 - Spinal stenosis, lumbar region without neurogenic claudication Medications: New clindamycin HCl Take two caps (600 mg) one hour before any dental work 600 mg (2 x 300 mg) PO ONCE 10 caps 3RF Coding Level of Care Code Est Pt Level 2 (97860) Diagnoses Lumbar stenosis M48.061
== END 2023-03-08 10:37 | disposition home or self-care (01) ==
PROVIDERS: PCP Internal Medicine; Visit Provider Orthopaedic Surgery
DX: M48.061 Spinal stenosis, lumbar region without neurogenic claudication (principal)
CPT/HCPCS: 99212

== ENCOUNTER → 2023-03-08 10:11 | Outpatient (BNVA) | payer MEDICARE, SELFPAY | PROVIDERS: PCP Internal Medicine; Visit Provider Orthopaedic Surgery | DX: M48.061 Spinal stenosis, lumbar region without neurogenic claudication (principal) | CPT/HCPCS: 99212 ==

== ENCOUNTER 2023-03-29 10:46 | Outpatient (AMB) | payer MEDICARE, SELFPAY ==
[2023-03-29 11:02] VITALS: BP 110/58; PULSE 96; TEMP 36.6; O2SAT 100; BMI 30.4
--- NOTE | 2023-03-29 11:02 | MHC.OFFVIS ---
Intake Vital Signs 03/29/23 11:02 03/29/23 11:42 03/29/23 11:45 Height 5 ft 4 in Weight 177 lb 6 oz BMI 30.4 BP 110/58 L 118/60 114/72 Blood Pressure Location Lt brachial Lt brachial Lt brachial Position Sitting Sitting Sitting Pulse 96 88 95 Pulse Source Pulse Oximeter Pulse Oximeter Pulse Oximeter Temp 97.9 F Temp Source Oral Pulse Oximetry (%) 100 Oxygen Delivery Method Room Air Intake Visit Reasons: EP, nausea, tingling in arms, legs Intake Note: pt is here today for nausea,tingling in arms and legs which started about 2-3 weeks ago. Pt states this started happening after her MRI. Pt states she was diagnosed with 3 bulging disks. Pt states she also has trouble walking. I noticed the patient was having issue finding words/jumbling her words. Allergies ampicillin [AMPICILLIN] Allergy (Unknown, Verified 03/29/23 11:06) UNKNOWN tetracycline [TETRACYCLINE] Allergy (Unknown, Verified 03/29/23 11:06) UNKNOWN Do you need a note to return to daycare/school/sports/work: Yes HPI HPI Comments History of Present Illness Details 82-year-old female presents for weakness and dizziness. Patient has been experiencing intermittent episodes of dizziness and weakness the past 3 weeks. Dizziness feels like a mixture of like she might pass out and occasionally feels unsteady. Dizziness is worse with movement and position changes. There is no dizziness or weakness when at rest. She denies any headaches or vision changes. She does endorse some numbness and tingling in the legs but recently MRI that showed some bulging disc in her back. [facility] Surgical History History of lumbar fusion History of total right hip replacement (02/16/22) Family History Father No problems noted. Mother No problems noted. Social History Household Members Other:: , lives with sister, 2 daughters, 3 grandchildren Housing: [facility] Patient Tobacco Use Status: Never used Tobacco e-Cigarette/Vaping Use: Never Used Current occupational status: retired Cognitive needs: No Hearing needs: Yes Vision needs: No Review of Systems ENT Reports dizziness Neuro Reports dizziness Physical Exam Vital Signs: Last Vital Signs Temp 97.9 F 03/29/23 11:02 Pulse 96 03/29/23 11:02 BP 110/58 L 03/29/23 11:02 Pulse Ox 100 03/29/23 11:02 Oxygen Delivery Method Room Air 03/29/23 11:02 BMI result Body Mass Index 30.4 Const General: cooperative, no acute distress and alert Orientation/consciousness: patient oriented x3 Limitations: no limitations HEENT Head: Yes normal to inspection Ears: hearing grossly normal bilaterally and external ears normal General nose exam: Normal external nose present Eyes General: appearance normal, both eyes and all related structures Neck Neck: Yes normal visual inspection Chest Chest palpation & inspection: normal inspection of the chest Resp Effort & Inspection: normal respiratory effort, able to speak in complete sentences and no audible wheezes Auscultation: clear to auscultation bilaterally Cardio Rate: regular rate Rhythm: regular rhythm GI Inspection: Yes normal to inspection Palpation (GI): Soft to palpation and nontender Skin General skin exam: no rashes or lesions noted Neuro Other: NEURO PHYSCIAL EXAM Alert and oriented to person, place, time speech: clear, fluent CN II: visual acuity grossly intact b/l, PERRLA CN III, IV, : EOMI CN V: facial sensation grossly intact to light touch b/l CN VII: symmetric facial movement b/l, no facial droop CN VIII: hearing intact to finger rub b/l, no nystagmus CN IX, X: uvula midline CN XI: 5/5 strength with SCM and trapezius b/l CN XII: midline tongue protrusion, no atrophy or fasciculations motor: 5/5 muscle strength of UE/LE b/l, no pronator drift sensory: grossly intact b/l to light touch coordination: No dysmetria or dysdiadochokinesia with rapid alternating movement and finger to nose testing General: patient oriented x3 Psych Appearance: grossly normal Mental Status: mental status grossly normal Speech and movement: Normal speech and movement present Affect: normal affect Attitude: cooperative Thought process: Normal thought process present Thought content: Normal thought content present Assessment & Plan Assessment & Plan (1) Dizziness: Code(s): R42 - Dizziness and giddiness Plan: VSS. Exam patient presents alert oriented acute distress exam largely unremarkable. Reproducible dizziness with extraocular movements. HINTS exam appears unremarkable at this time. With patient presentation of consideration is central versus peripheral causes of vertigo. Low suspicion for central causes given intermittent and episodic as well as duration lasting 3 weeks absence of other neurological findings. Given reproducibility as well as torsemide of near-syncope he or feeling she might pass out changing positions of suspicion is vasovagal versus peripheral causes of syncope. At this time will prescribe meclizine. Will also recommend trial of holding her diuretic for several days see if symptoms improve. If not will recommend following up with PCP. Discharge instructions, follow up and treatment are discussed with patient in my usual fashion. Alternatives in treatment are also discussed. The patient will return for worsening symptoms or as needed. Advised that any labs/imaging ordered will be followed up on and contact made if further treatment needed. Counseled that patient's condition may require further evaluation and/or treatment. Symptoms of concern for worsening disorder discussed in detail in my customary manner. Patient does verbalize understanding of the plan, there are no apparent barriers to communication. The patient is given the opportunity to ask questions and have them answered to his/her satisfaction Medications: New meclizine 25 mg PO TID 10 tabs 0RF Coding Level of Care Code Est Pt Level 5 (35967) Diagnoses Dizziness R42
[2023-03-29 11:42] VITALS: BP 118/60; PULSE 88
[2023-03-29 11:45] VITALS: BP 114/72; PULSE 95
== END 2023-03-29 11:52 | disposition home or self-care (01) ==
PROVIDERS: PCP Internal Medicine; Visit Provider Physician Assistant
DX: R42 Dizziness and giddiness (principal)
CPT/HCPCS: 99214

== ENCOUNTER 2023-04-16 08:22 | Outpatient (AMB) | payer MEDICARE, SELFPAY ==
--- NOTE | 2023-04-16 08:25 | A.OFFPC_ITS ---
Vital Signs 04/16/23 08:28 Height 5 ft 4 in Weight 182 lb BMI 31.2 BP 120/72 Blood Pressure Location Rt brachial Position Sitting Pulse 78 Pulse Source Pulse Oximeter Pulse Oximetry (%) 96 Oxygen Delivery Method Room Air Intake Visit Reasons: 6 month follow up HTN Allergies ampicillin [AMPICILLIN] Allergy (Unknown, Verified 04/16/23 08:29) UNKNOWN tetracycline [TETRACYCLINE] Allergy (Unknown, Verified 04/16/23 08:29) UNKNOWN Medication List - Last Reconciled 04/16/23 by Aslheigh Grullon MD aspirin-caffeine 500-32.5 mg (Ronda Back and Body) tabs PO clindamycin HCl 600 mg (2 x 300 mg) PO ONCE meclizine 25 mg PO DAILY PRN Tobacco use date assessed: 04/16/23 Fall risk assessment: No Falls in past year Last assessed Fall Risk: 04/16/23 HPI 6 month follow up HTN HPI Details Pt presents for f/u urgent care visit for dizziness/vertigo and left ear tinnitus started in February after patient had an MRI for lumbar spine. She denies headaches, change in vision, weakness or numbness in extremities but reports chronically poor balance. 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 She denies chest pain shortness of breath or palpitations but reports feeling tired and fatigued. [facility] Surgical History History of lumbar fusion History of total right hip replacement (02/16/22) Family History Father No problems noted. Mother No problems noted. Social History Household Members Other:: , lives with sister, 2 daughters, 3 grandchildren Housing: [facility] Patient Tobacco Use Status: Never used Tobacco e-Cigarette/Vaping Use: Never Used Current occupational status: retired Cognitive needs: No Hearing needs: Yes Vision needs: No Questionnaire Thrive Questionnaire Date Thrive assessed: 01/26/22 NAILA-7 AMB Questionnaire NAILA-7 Date NAILA - 7 assessed: 01/26/22 Source: Developed by Drs. Mukesh Rice, Sravani Ramirez, Martin Padgett and colleagues, with an educational faisal from [employer]. Review of Systems Const All systems reviewed & are unremarkable except as noted in HPI and below Reports no additional complaints Eyes Reports no additional complaints ENT Reports no additional complaints Card Reports no additional complaints Resp Reports no additional complaints GI Reports no additional complaints Reports no additional complaints Physical exam (Primary Care) Vital Signs: Last Vital Signs Pulse 78 04/16/23 08:28 BP 120/72 04/16/23 08:28 Pulse Ox 96 04/16/23 08:28 Oxygen Delivery Method Room Air 04/16/23 08:28 BMI result Body Mass Index 31.2 Tobacco/Smoking Status: Tobacco use Status Tobacco use date assessed 04/16/23 04/16/23 08:33 Patient Tobacco Use Status Never used Tobacco 04/16/23 08:26 e-Cigarette/Vaping Use Never Used 04/16/23 08:26 Thrive Assessment: Date of Thrive Assessment Date Thrive assessed 01/26/22 04/16/23 08:26 Const General: no acute distress HENMT Head: Yes normal to inspection Ears: TM's normal bilaterally and hearing grossly impaired on the left Face and sinus: Yes normal facial exam Mouth: Normal oral and palatal mucosa present Eyes General: appearance normal, both eyes and all related structures Neck Neck: Yes no lymphadenopathy and Yes supple Resp Effort & Inspection: normal respiratory effort Auscultation: clear to auscultation bilaterally Cardio Rhythm: regular rhythm Heart sounds: S1 normal heart sound present and S2 normal heart sound present GI Inspection: Yes normal to inspection Neuro Cranial nerves: Yes CN's II-XII intact bilaterally Gait exam (Neuro): Shuffling gait present Motor exam (neuro): 5/5 motor strength present throughout Coordination: [id number] test normal Romberg Test: Negative Extrem General: Yes no clubbing, cyanosis or edema Assessment and Plan Assessment & Plan (1) Anemia: Code(s): D64.9 - Anemia, unspecified Plan: Check CBC iron count and comprehensive panel (2) Vertigo: Code(s): R42 - Dizziness and giddiness Plan: Referred to physical therapy for vestibular therapy, continue meclizine as needed (3) Poor balance: Code(s): R26.89 - Other abnormalities of gait and mobility Plan: Referred to physical therapy (4) Low back pain: Comment: MR Feb 2023, spinal stenosis, multiple level disc herniations Code(s): M54.50 - Low back pain, unspecified Plan: f/u wit ortho/neurosurg Orders: Orders Complete Blood Count Auto Diff Today D64.9 - Anemia, unspecified, R42 - Dizziness and giddiness IRON PROFILE Today D64.9 - Anemia, unspecified, R42 - Dizziness and giddiness Comprehensive [place]. Panel Fast Today D64.9 - Anemia, unspecified, R42 - Dizziness and giddiness PT Evaluation and Treatment Today R26.89 - Other abnormalities of gait and mobi lity, R42 - Dizziness and giddiness Medications: New meclizine 25 mg PO DAILY PRN 30 tabs 0RF dizziness Coding Level of Care Code Est Pt Level 4 (47038) Diagnoses Anemia D64.9 Vertigo R42 Poor balance R26.89 Low back pain M54.50
[2023-04-16 08:28] VITALS: BP 120/72; PULSE 78; O2SAT 96; BMI 31.2
== END 2023-04-16 09:32 | disposition home or self-care (01) ==
PROVIDERS: Visit Provider Internal Medicine
DX: D64.9 Anemia, unspecified (principal); R42 Dizziness and giddiness; R26.89 Other abnormalities of gait and mobility; M54.50 Low back pain, unspecified
CPT/HCPCS: 99214

== ENCOUNTER 2023-04-16 09:26 | Outpatient (REF) | payer MEDICARE, SELFPAY ==
[2023-04-16 11:13] LABS: MANUAL DIFF FLAG NO
[2023-04-16 11:42] LABS: Eosinophils Absolute Auto 0.1 X10*3/uL (0.0-0.4); Eosinophils Percent Auto 1.1 % (0-4); Imm Gran Abs Auto 0.02 X10*3/uL (0.00-0.03); Imm Gran Pct Auto 0.4 % (0.0-0.4); Lymphocytes Absolute Auto 1.4 X10*3/uL (1.2-4.9); Lymphocytes Percent Auto 25.9 % (20-40); Mean Corpuscular HGB Conc 26.7 g/dl (31.0-35.0); Mean Corpuscular Hemoglobin 16.4 pg (27.0-33.0); Monocytes Absolute Auto 0.6 X10*3/uL (0.1-1.2); Monocytes Percent Auto 10.7 % (2-11); NRBC Pct Auto 0.5 /100WBC (0.0-0.2); Neutrophils Absolute Auto 3.4 x10*3/uL (2.0-8.3); Neutrophils Percent Auto 61.9 % (45-73); Platelet Count 402 X10*3/uL (160-400); Red Blood Count 3.04 X10*6/uL (4.20-5.50); Red Cell Distribution Width 18.7 % (11.0-16.0); White Blood Count 5.5 X10*3/uL (4.8-10.8)
[2023-04-16 11:50] LABS: Alanine Aminotransferase 17 U/L (0-31); Albumin Level 4.1 g/dL (3.5-5.0); Alkaline Phosphatase 73 U/L (39-117); Anion Gap 12 (12-20); Aspartate Amino Transferase 18 U/L (5-31); Bilirubin Total 0.9 mg/dL (0.0-1.0); Blood Urea Nitrogen 13 mg/dL (9-16); Carbon Dioxide 26 mmol/L (22-29); Chloride 103 mmol/L (96-108); Estimated Glomerular Filt Rate 59; Glucose Fasting 116 mg/dL (60-99); Iron 11 mcg/dL (30-160); Percent Iron Saturation 2 % (15-50); Potassium 3.5 mmol/L (3.3-5.1); Sodium 137 mmol/L (135-145); Total Iron Binding Capacity 443 mcg/dL (228-428); Total Protein 6.6 g/dL (6.5-8.0); Unsaturated Iron Binding 432 ug/dL
[2023-04-16 11:57] LABS: Hematocrit 18.7 % (37.0-47.0); Mean Corpuscular Volume 61.5 fL (80.0-98.0)
== END 2023-04-16 09:27 | disposition home or self-care (01) ==
LOC: HO.HMGCLDS 09:26
PROVIDERS: PCP Internal Medicine; Visit Provider Internal Medicine
DX: Z13.89 Encounter for screening for other disorder (principal)
CPT/HCPCS: 36415; 80053; 83540; 85025

== ENCOUNTER 2023-04-16 12:29 | Inpatient (IN) | payer MEDICARE, SELFPAY ==
[2023-04-16] VITALS (8 sets, daily range): BP systolic 151–193; BP diastolic 59–80; PULSE 85–96; RESP 16–20; TEMP 35.9–36.9; O2SAT 96–100; BMI 31.6
--- NOTE | ~2023-04-16 | XR_ITS ---
EXAMINATION: XR CHEST CLINICAL INFORMATION: Shortness of breath COMPARISON: None available. TECHNIQUE: 2 views of the chest were obtained. 1305: FINDINGS: The lungs are well expanded. There is patchy opacity in the left lower lobe consistent with pneumonia. There small bilateral pleural effusions. No pneumothorax or interstitial pulmonary edema. No acute osseous abnormality. No significant abnormality is noted involving the heart, mediastinum, bony thorax or soft tissues. XR/XR chest 2V IMPRESSION: 1. Left lower lobe pneumonia. 2. Small bilateral pleural effusions.
--- NOTE | 2023-04-16 12:40 | ED_ITS ---
HPI - General Adult General Chief complaint: Recheck/Abnormal Lab/Rx Stated complaint: Needs blood transfusion Time Seen by Provider: 04/16/23 13:00 Source: patient Mode of arrival: ambulatory Limitations: no limitations History of Present Illness HPI narrative: 82 year old female with pmhx significant for HTN, HDL, vitamin D deficiency, and osteoarthritis presents as an expect from [facility] for evaluation of H&H of 5 and 18 on routine blood work. Patient states that she has been very fatigued especially with exertion x 3 weeks. Endorses worsening generalized weakness. States that she has not been her get up and go self. Additionally reports dark stools x 2- 3 weeks however has been taking naproxen daily for chronic back pain for ~2 wks. Denies BRBPR or hematochezia. Not on AC. Denies taking Pepto-Bismol or iron supplements. Denies fever, dizziness, ROBLERO, chest pain, SOB, LE swelling/ pain, N/V, abd pain, hematuria, vaginal bleeding, diarrhea, or constipation. Denies known tick bites. Related Data Previous Rx's Medication Instructions Recorded meclizine 25 mg tablet 25 mg PO DAILY PRN dizziness #30 04/16/23 tabs Allergies Allergy/AdvReac Type Severity Reaction Status Date / Time ampicillin [AMPICILLIN] Allergy Unknown UNKNOWN Verified 04/16/23 08:29 tetracycline [TETRACYCLINE] Allergy Unknown UNKNOWN Verified 04/16/23 08:29 Review of Systems 2 Review of Systems: Constitutional: No fever, chills, night sweats, weight changes, +fatigue ENT/Mouth: No ear pain, hearing loss, nasal congestion, sinus pain, rhinorrhea, sore throat Eyes: No eye pain, swelling, redness, vision changes, discharge Cardio: No chest pain, palpitations, FERNANDO, orthopnea, peripheral edema Pulm: No SOB, cough, sputum, wheezing, dyspnea, hemoptysis GI: No nausea, vomiting, hematemesis, abdominal pain, diarrhea, constipation, hematochezia, +melena : No irregular bleeding, dysuria, frequency, urgency, hesitancy, hematuria, flank pain, urinary flow changes MSK: No back pain, neck pain, joint pain, myalgias Skin: No lesions, rashes, +pale Neuro: No weakness, numbness, paresthesias, LOC, dizziness, headache All other systems reviewed and are negative. [facility] Past Medical History Attestation statement: The following information was validated with the patient. 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 Mother Breast cancer Social History Social History Household Members Other:: , lives with sister, 2 daughters, 3 grandchildren Housing: [facility] Patient Tobacco Use Status: Never used Tobacco e-Cigarette/Vaping Use: Never Used Current occupational status: retired Cognitive needs: No Hearing needs: Yes Vision needs: No Physical Exam ED Vital Signs: Vital Signs - 24 hr 04/16/23 12:39 04/16/23 14:41 04/16/23 16:14 Temperature 98.0 F Pulse Rate 93 85 96 Respiratory Rate 18 16 16 Blood Pressure 161/60 H 161/59 H 183/71 H Pulse Oximetry 98 100 100 Oxygen Delivery Method Room Air Room Air Room Air BMI result Body Mass Index 31.6 Vital signs stable Const General: cooperative, comfortable, no acute distress, alert and awake Nutritional Appearance: average body habitus Orientation/consciousness: patient oriented x3 Limitations: no limitations HENPR Head: Yes normal to inspection Ears: hearing grossly normal bilaterally General nose exam: Normal external nose present Mouth: Normal oral and palatal mucosa present Eyes Other: + bilateral conjunctival pallor General: appearance normal, both eyes and all related structures Pupils: Equal, round and reactive pupils present EOM: EOMs intact bilaterally Neck Neck: Yes normal visual inspection and Yes no lymphadenopathy Resp Effort & Inspection: normal respiratory effort Auscultation: clear to auscultation bilaterally Cardio Rate: regular rate Rhythm: regular rhythm Peripheral pulses: radial pulses present GI Other: + Rectal exam performed with [facility] supplier diversity director 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 Normal rectal sphincter tone. No external masses or lesions. Stool is normal in appearance. Guac negative. Inspection: Yes normal to inspection Palpation (GI): Soft to palpation, nontender, no guarding, no splenomegaly and No Rebound tenderness present Skin General skin exam: no rashes or lesions noted, no jaundice, no petechiae, no purpura and pallor Neuro General: patient oriented x3, gait normal and moves all extremities Cranial nerves: Yes CN's II-XII intact bilaterally and Yes Equal, round and reactive pupils present Extrem General: Yes normal to inspection, Yes capillary refill normal and Yes no clubbing, cyanosis or edema Course Course Course Narrative: RME performed by Faina Cheek PA-C. Patient is a 82 year old assigned female at presenting to the emergency department with low hemoglobin. Labs ordered. Patient placed back in the waiting room pending room availability and results. Reevaluation(s) Reevaluation #1: 8109-- On review of outpatient labs obtained this morning, there has been a significant decrease in H&H when compared to labs obtained 6 months ago >H&H now 5 and 18. On review of iron studies, patient with iron deficiency anemia. There are no acute electrolyte abnormalities requiring intervention. OBS negative > less likely GI bleed. Discussed risks and benefits of blood transfusion with patient and obtained informed consent. Type and screen is pending. 2 units PRBC ordered. 1514-- CXR showing small bilateral pleural effusions and possible left lower lobe PNA > patient denies fever, cough, or SOB. Patient is afebrile, normotensive and not tachycardic. Patient with possible source of infection and decreased H&H > infection suspected at this time. Repeat basic labs ordered along with lactic, blood cultueres, and one dose of IV Ceftriaxone. >> Discussed results with patient. Chart showing unknown allergy to ampicillin & tetracycline. Patient tells me that she cannot remember her reaction however thinks that she had an itchy throat. Denies anaphylaxis. I discussed giving her a dose of ceftriaxone and she is agreeable with this. >> Discussed case with hospitalist, Dr. Joseph. Patient to be admitted to medicine pending transfusion, repeat labs, and UA. Medications Administered Discontinued Medications Generic Name Dose Route Start Last Admin Trade Name Freq PRN Reason Stop Dose Admin Ceftriaxone Sodium 1 gm/ 50 mls @ 100 mls/hr 04/16/23 15:10 04/16/23 17:03 Sodium Chloride IV 04/16/23 15:39 Infused ONCE ONE Infusion Medical Decision Making Medical Decision Making [facility] Narrative: 82 year old female with pmhx significant for HTN, HDL, vitamin D deficiency, and osteoarthritis presents as an expect from [facility] for evaluation of H&H of 5 and 18 on routine blood work. VSS. Patient is nontoxic appearing and in NAD. Pallor noted to skin and conjunctiva. RRR. Lungs CTA b/l. No JVD or peripheral edema. 2+ pulses throughout. No rashes or bruising. Abd soft, NT/ND, no hepatosplenomegaly. Guiac negative. Clinical concern for iron deficiency anemia, acute on chronic blood loss, gastrointestinal bleed, PUD, diverticulosis, hemorrhoids, PNA. Low suspicion for UTI, nephrolithiasis, bladder carcinoma. Unlikely ACS, PE, arrhtyhmia. CXR and type & screen ordered in triage. Will obtain OBS and informed consent, plan for transfusion. Differential Diagnosis Differential Diagnoses: The differential diagnosis associated with the presentation includes As above. Admission/Observation Consideration of admission/observation: Escalation of care including admission/observation considered This 82 year old patient with anemia of unknown origin requiring transfusion will be admitted. Consult Healthcare Provider Management of the patient was discussed with: Hospitalist (Dr. Joseph) Lab Data [facility] Lab Attestation statement: I reviewed the patient's lab results. As above. 04/16/23 15:37 04/16/23 15:37 Labs: Lab Results 04/16/23 04/16/23 04/16/23 Range/Units 13:24 13:39 15:37 WBC 5.1 (4.8-10.8) X10*3/uL RBC 2.90 L (4.20-5.50) X10*6/uL Hgb 4.7 L* (12.0-16.0) g/dl Hct 17.2 L* (37.0-47.0) % MCV 59.3 L (80.0-98.0) fL MCH 16.2 L (27.0-33.0) pg MCHC 27.3 L (31.0-35.0) g/dl RDW 18.6 H (11.0-16.0) % Plt Count 318 (160-400) X10*3/uL MPV 9.4 (9.4-12.3) fL Immature Gran % (Auto) 0.6 H (0.0-0.4) % Neut % (Auto) 55.1 (45-73) % Lymph % (Auto) 33.0 (20-40) % Johnson % (Auto) 10.7 (2-11) % Eos % (Auto) 0.6 (0-4) % Baso % (Auto) 0.0 (0-2) % Lymph # (Auto) 1.7 (1.2-4.9) X10*3/uL Johnson # (Auto) 0.5 (0.1-1.2) X10*3/uL Eos # (Auto) 0.0 (0.0-0.4) X10*3/uL Baso # (Auto) 0.0 (0.0-0.2) X10*3/uL Abs Immat Gran (auto) 0.03 (0.00-0.03) X10*3/uL Absolute Neuts (auto) 2.8 (2.0-8.3) x10*3/uL Absolute Nucleated RBC 0.020 H (0.0-0.012) X10*3/uL Nucleated RBC % (auto) 0.4 H (0.0-0.2) /100WBC Sodium 137 (135-145) mmol/L Potassium 3.3 (3.3-5.1) mmol/L Chloride 101 (96-108) mmol/L Carbon Dioxide 27 (22-29) mmol/L Anion Gap 12 (12-20) BUN 12 (9-16) mg/dL Creatinine 0.80 (0.5-1.4) mg/dL Estim Creat Clear Calc 58.6 Estimated GFR > 60 Random Glucose 104 (60-115) mg/dL Lactic Acid 1.0 (0.5-2.0) mmol/L Calcium 8.7 (8.4-10.2) mg/dL Magnesium 2.1 (1.6-2.6) mg/dL Total Bilirubin 0.8 (0.0-1.0) mg/dL AST 17 (5-31) U/L ALT 14 (0-31) U/L Alkaline Phosphatase 73 (39-117) U/L Total Protein 6.3 L (6.5-8.0) g/dL Albumin 4.0 (3.5-5.0) g/dL Lipase 10 (8-78) U/L Urine Color Urine Appearance Urine pH (5.0-9.0) Ur Specific [place] (1.005-1.025) Urine Protein (Neg-Trace) mg/dL Urine Glucose (UA) (Negative) mg/dL Urine Ketones (Negative) mg/dL Urine Blood (Negative) Urine Nitrite (Negative) Ur Leukocyte Esterase (Negative) Stool Occult Blood NEGATIVE (NEGATIVE) Blood Type AB Positive Antibody Screen NEGATIVE Crossmatch See Detail 04/16/23 Range/Units 16:18 WBC (4.8-10.8) X10*3/uL RBC (4.20-5.50) X10*6/uL Hgb (12.0-16.0) g/dl Hct (37.0-47.0) % MCV (80.0-98.0) fL MCH (27.0-33.0) pg MCHC (31.0-35.0) g/dl RDW (11.0-16.0) % Plt Count (160-400) X10*3/uL MPV (9.4-12.3) fL Immature Gran % (Auto) (0.0-0.4) % Neut % (Auto) (45-73) % Lymph % (Auto) (20-40) % Johnson % (Auto) (2-11) % Eos % (Auto) (0-4) % Baso % (Auto) (0-2) % Lymph # (Auto) (1.2-4.9) X10*3/uL Johnson # (Auto) (0.1-1.2) X10*3/uL Eos # (Auto) (0.0-0.4) X10*3/uL Baso # (Auto) (0.0-0.2) X10*3/uL Abs Immat Gran (auto) (0.00-0.03) X10*3/uL Absolute Neuts (auto) (2.0-8.3) x10*3/uL Absolute Nucleated RBC (0.0-0.012) X10*3/uL Nucleated RBC % (auto) (0.0-0.2) /100WBC Sodium (135-145) mmol/L Potassium (3.3-5.1) mmol/L Chloride (96-108) mmol/L Carbon Dioxide (22-29) mmol/L Anion Gap (12-20) BUN (9-16) mg/dL Creatinine (0.5-1.4) mg/dL Estim Creat Clear Calc Estimated GFR Random Glucose (60-115) mg/dL Lactic Acid (0.5-2.0) mmol/L Calcium (8.4-10.2) mg/dL Magnesium (1.6-2.6) mg/dL Total Bilirubin (0.0-1.0) mg/dL AST (5-31) U/L ALT (0-31) U/L Alkaline Phosphatase (39-117) U/L Total Protein (6.5-8.0) g/dL Albumin (3.5-5.0) g/dL Lipase (8-78) U/L Urine Color Yellow Urine Appearance Clear Urine pH 7.5 (5.0-9.0) Ur Specific [place] <= 1.005 (1.005-1.025) Urine Protein Negative (Neg-Trace) mg/dL Urine Glucose (UA) Negative (Negative) mg/dL Urine Ketones Negative (Negative) mg/dL Urine Blood Negative (Negative) Urine Nitrite Negative (Negative) Ur Leukocyte Esterase Negative (Negative) Stool Occult Blood (NEGATIVE) Blood Type Antibody Screen Crossmatch Independent Interpretation I performed an independent interpretation of an: Plain X-Ray Interpretation: CXR showing ?consolidations to the left lower lobe indicating a possible pneumonia, agree with radiologist's interpretation. Radiology Impression Discussion of test interpretation with radiology: I have reviewed the radiologist's reading. Radiologist Impression: XR chest 2V IMPRESSION: 1. Left lower lobe pneumonia. 2. Small bilateral pleural effusions. External Record Review External record reviewed: Inpatient record Critical Care Time Critical Care Time Critical Care Time: Yes Total Critical Care Time: 90 Attestation: Critical care time in the amount of 90 minutes has been provided to the patient in terms of direct patient care, frequent reevaluation, consultation with hospitalist, review and interpretation of medical data and results, and management of potentially life-threatening conditions. This is all outside of any medical procedures. Discharge Plan Discharge Clinical Impression: Anemia Patient Disposition: Admitted As Inpatient Interventions: Admission Worksheet (ED) Last Done: 04/16/23 20:47 Discharge Date/Time: 04/16/23 20:48
[2023-04-16 13:28] LABS: OBS1 NEGATIVE (NEGATIVE)
[2023-04-16 13:29] LABS: OBS Int Ctl Valid YES
--- NOTE | 2023-04-16 13:32 | PC.NURSE ---
patient a&ox3, library monitor applied-nsr on monitor, iv inserted, tech to draw labs, provider did rectal exam, pt states recently she hasnt fell her normal self-has been using a walker to ambulate where prior she walked independently, pt states she has had some dizziness on and off which caused her to reach out to her provider to be seen and have labs drawn.
[2023-04-16 15:47] LABS: MANUAL DIFF FLAG NO
[2023-04-16 15:53] LABS: Eosinophils Percent Auto 0.6 % (0-4); Imm Gran Abs Auto 0.03 X10*3/uL (0.00-0.03); Imm Gran Pct Auto 0.6 % (0.0-0.4); Lymphocytes Absolute Auto 1.7 X10*3/uL (1.2-4.9); Mean Corpuscular HGB Conc 27.3 g/dl (31.0-35.0); Mean Corpuscular Hemoglobin 16.2 pg (27.0-33.0); Mean Platelet Volume 9.4 fL (9.4-12.3); Monocytes Absolute Auto 0.5 X10*3/uL (0.1-1.2); Monocytes Percent Auto 10.7 % (2-11); NRBC Pct Auto 0.4 /100WBC (0.0-0.2); Neutrophils Absolute Auto 2.8 x10*3/uL (2.0-8.3); Neutrophils Percent Auto 55.1 % (45-73); Platelet Count 318 X10*3/uL (160-400); Red Cell Distribution Width 18.6 % (11.0-16.0); White Blood Count 5.1 X10*3/uL (4.8-10.8)
[2023-04-16 15:59] LABS: Hematocrit 17.2 % (37.0-47.0); Hemoglobin 4.7 g/dl (12.0-16.0); Mean Corpuscular Volume 59.3 fL (80.0-98.0)
[2023-04-16 16:02] LABS: Alanine Aminotransferase 14 U/L (0-31); Alkaline Phosphatase 73 U/L (39-117); Anion Gap 12 (12-20); Aspartate Amino Transferase 17 U/L (5-31); Bilirubin Total 0.8 mg/dL (0.0-1.0); Blood Urea Nitrogen 12 mg/dL (9-16); Calcium 8.7 mg/dL (8.4-10.2); Carbon Dioxide 27 mmol/L (22-29); Chloride 101 mmol/L (96-108); Creatinine Clr Calc Pharmacy 58.6; Estimated Glomerular Filt Rate > 60; Glucose Random 104 mg/dL (60-115); Lipase 10 U/L (8-78); Magnesium 2.1 mg/dL (1.6-2.6); Potassium 3.3 mmol/L (3.3-5.1); Sodium 137 mmol/L (135-145); Total Protein 6.3 g/dL (6.5-8.0)
--- NOTE | 2023-04-16 16:14 | P.HPHOSP_ITS ---
History of Present Illness Date of Service: 04/16/23 Chief Complaint: weakness 82 year old presents to the ER from [facility] [place] after lab evaluation of hemoglobin and hematocrit. She reports that she has been very fatigued, feeling weakness over the last several weeks. She did report that she had been taking in naproxen 2-4 tablets day over the last couple of weeks for back pain. She reports that she noted some dark colored stools but no bright red blood, hematemesis or epistaxis. She does not have any significant medical problems. And no previous history of anemia. She denied chest pain, shortness breath, nausea, vomiting, diarrhea, fever, chills, recent travel, sick contact, improperly cooked foods. Hemoglobin and hematocrit in the ER noted to be 4.7/17.2, MCV 59.3, iron 11. 2 units of packed red blood cells was ordered in the ER. Chest x-ray showed a pneumonia the patient has no fever, chills, cough, shortness of breath but she did receive a dose of Rocephin in the ER. She will be admitted for further management and treatment of acute anemia. Review of Systems 2 Review of Systems: Denies any recent fever chills or decrease in appetite respiratory denies any shortness of breath coverage production cardiovascular Denied chest pain gastrointestinal denies any dysphagia abdominal pain nausea vomiting or diarrhea genitourinary denies any dysuria frequency or hematuria musculoskeletal denies any joint pain or swelling neuropsych denies any weakness or seizures all other systems reviewed are negative [facility] Medical History FH: total knee replacement Family History (Updated 04/16/23 @ 16:18 by Geno Torres NP) Father No problems noted. 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) Social History Household Members Other:: , lives with sister, 2 daughters, 3 grandchildren Housing: [facility] Patient Tobacco Use Status: Never used Tobacco Smoked in Last 30 Days: No e-Cigarette/Vaping Use: Never Used Use of substances other than those prescribed or required for medical reasons: No Advance Directives: No Advance Directives Information Provided: No Current occupational status: retired Cognitive needs: No Hearing needs: Yes Vision needs: No Meds Allergies Allergy/AdvReac Type Severity Reaction Status Date / Time ampicillin [AMPICILLIN] Allergy Unknown UNKNOWN Verified 04/16/23 08:29 tetracycline [TETRACYCLINE] Allergy Unknown UNKNOWN Verified 04/16/23 08:29 Physical Exam 2 Vital Signs and Narrative: Vital Signs: Last Vital Signs Temp 98.0 F 04/16/23 12:39 Pulse 85 04/16/23 14:41 Resp 16 04/16/23 14:41 BP 161/59 H 04/16/23 14:41 Pulse Ox 100 04/16/23 14:41 O2 Del Method Room Air 04/16/23 14:41 BMI result Body Mass Index 31.6 Appearing in no acute distress lung sounds are clear to auscultation heart regular rate rhythm, clear S1, S2 positive bowel sounds, abdomen is soft, nontender neuro patient is alert x3, no focal deficits Results Labs 04/16/23 15:37 04/16/23 15:37 Labs: Laboratory Results - last 24 hr 04/16/23 04/16/23 04/16/23 13:24 13:39 15:37 MCV 59.3 L MCH 16.2 L MCHC 27.3 L RDW 18.6 H Plt Count 318 MPV 9.4 Immature Gran % (Auto) 0.6 H Neut % (Auto) 55.1 Lymph % (Auto) 33.0 [place] % (Auto) 10.7 Eos % (Auto) 0.6 Baso % (Auto) 0.0 Lymph # (Auto) 1.7 [place] # (Auto) 0.5 Eos # (Auto) 0.0 Baso # (Auto) 0.0 Abs Immat Gran (auto) 0.03 Absolute Neuts (auto) 2.8 Absolute Nucleated RBC 0.020 H Nucleated RBC % (auto) 0.4 H Anion Gap 12 Estim Creat Clear Calc 58.6 Estimated GFR > 60 Random Glucose 104 Lactic Acid 1.0 Calcium 8.7 Magnesium 2.1 Total Bilirubin 0.8 AST 17 ALT 14 Alkaline Phosphatase 73 Total Protein 6.3 L Albumin 4.0 Lipase 10 Stool Occult Blood NEGATIVE Blood Type AB Positive Antibody Screen NEGATIVE Crossmatch See Detail Imaging Radiologist's Impressions: Impressions Chest X-Ray 04/16/23 13:10 IMPRESSION: 1. Left lower lobe pneumonia. 2. Small bilateral pleural effusions. Assessment and Plan (1) Anemia: Status: Acute Plan 82-year-old woman admitted with acute in blood-loss anemia /GI bleed from unknown cause Acute blood loss anemia/ GI bleed , unspecified Unknown source of bleeding, possibly upper GI bleed source as patient reports taking naproxen 2-4 pills a day over the last several weeks back pain Will transfuse 2 units packed red blood cells Stool occult negative GI consultation Check CBC post transfusion and in the morning iron 11/TIBC 443, start iron supplement Elevated blood pressure reading Patient declines history of hypertension May be secondary to hospitalization Will add IV hydralazine for systolic blood pressure greater than 190 Possible PNA, unspecified Noted on one view chest x-ray no fever, leukocytosis, cough or shortness of breath Will hold off on antibiotics and monitor patient DVT prophylaxis with pneumatic compression boots Full code Patient required 2 inpatient midnights for treatment acute blood loss anemia requiring blood transfusion and specialty follow-up that cannot be done at a lesser acute setting. Quality Stroke Does the patient have a stroke diagnosis?: No VTE Prior VTE?: No VTE Risk Level:: Medical - moderate - high VTE Device Contraindication: N/A - Device Ordered VTE Drug Contraindication: Treatment Not Indicated
[2023-04-16 16:23] LABS: Appearance Urine Clear; Color Urine Yellow; Glucose Urine UA Negative (Negative); Leukocyte Esterase Urine Negative (Negative); Nitrite Urine Negative (Negative); PH 7.5 (5.0-9.0); Specific Gravity - Urine <= 1.005 (1.005-1.025); Urine Blood Negative (Negative); Urine Ketones Negative (Negative); Urine Protein Negative (Neg-Trace)
[2023-04-16] MEDS: cefTRIAXone sodium 1 GM in 0.9 % Sodium Chloride 50 ML IV (16:33)
--- NOTE | 2023-04-16 16:34 | PHA.MEDREC ---
Pharmacy Consult ? Medication Reconciliation Pharmacy has completed the medication reconciliation. Patient reported medications. Lauren Aragon, JaneeD
--- NOTE | 2023-04-16 17:20 | PC.NURSE ---
patient a&ox3, secured entrance monitor intact, vss, pt medicated with abx per order, blood started per order- pt tolerating well, family at bedside, call noel within reach, will continue to monitor.
--- NOTE | 2023-04-16 18:25 | P.EN_ITS ---
Event Note Date of Service: 04/16/23 Event Note: GI-Consult received, chart reviewed, and will see patient on 04/17. Significant microcytic anemia and reportedly taking NSAIDs, although with brown and Heme negative stool per ER exam. Will need upper endoscopy and colonoscopy to R/O a source of GI blood loss if s he has not had these done recently. Will tentatively plan for Wed, 04/18, such that she can be transfused 1st and hopefully be able to tolerate the bowel prep. Will therefore start liquid diet on 04/17 AM and hold Iron. Will also start an empiric PPI in the meantime. Please call me in the meantime if any questions or concerns. Thanks Time Spent With Patient Time: Total time managing care of this patient today ____ minutes.
--- NOTE | 2023-04-16 20:17 | MHC.EDTECH ---
This tech assumed care of patient at 1900,hourly rounds,vitals and belonging list completed. Family brought patients purse and wallet home.
--- NOTE | 2023-04-16 20:21 | PC.NURSE ---
called for report unable to get in touch with nurse at this time
[2023-04-16 22:12] LABS: Hematocrit 20.4 % (37.0-47.0)
[2023-04-17] VITALS (12 sets, daily range): BP systolic 167–194; BP diastolic 72–96; PULSE 80–106; RESP 16–20; TEMP 36.2–37.3; O2SAT 92–99
[2023-04-17] MEDS: 0.9 % Sodium Chloride Flush 3 ML SYRINGE IVFLUSH ×2 (03:58→18:52)
[2023-04-17] MEDS: Omeprazole 40 MG CAPSULE.DR PO (06:24)
[2023-04-17 06:40] LABS: Hematocrit 24.8 % (37.0-47.0); Hemoglobin 7.2 g/dl (12.0-16.0); Mean Corpuscular Hemoglobin 19.9 pg (27.0-33.0); Mean Corpuscular Volume 68.7 fL (80.0-98.0); Mean Platelet Volume 9.1 fL (9.4-12.3); NRBC Pct Auto 1.5 /100WBC (0.0-0.2); Platelet Count 279 X10*3/uL (160-400); Red Blood Count 3.61 X10*6/uL (4.20-5.50); Red Cell Distribution Width 25.7 % (11.0-16.0); White Blood Count 5.4 X10*3/uL (4.8-10.8)
[2023-04-17 06:55] LABS: Alanine Aminotransferase 11 U/L (0-31); Albumin Level 3.8 g/dL (3.5-5.0); Alkaline Phosphatase 75 U/L (39-117); Anion Gap 12 (12-20); Aspartate Amino Transferase 15 U/L (5-31); Bilirubin Total 4.3 mg/dL (0.0-1.0); Blood Urea Nitrogen 9 mg/dL (9-16); Calcium 8.8 mg/dL (8.4-10.2); Carbon Dioxide 27 mmol/L (22-29); Chloride 105 mmol/L (96-108); Creatinine Clr Calc Pharmacy 59.3; Estimated Glomerular Filt Rate > 60; Glucose Random 101 mg/dL (60-115); Potassium 3.6 mmol/L (3.3-5.1); Sodium 140 mmol/L (135-145)
--- NOTE | 2023-04-17 08:04 | PC.NURSE ---
Pt. admitted bu stretcher last evening from ED. Pt. A and O x4. Slight ALUTIIQ and wearing bilateral hearing aids. Pt. denies dysnea. Mild lightheadeness when ambulating. 1 assist with walker to bathroom and used commode to void overnight. No BM's overnight. LS: clear. NSR on surveillance monitor. Pt. received 1 unit of RBC's and tolerated well without adverse reaction. No sob post transfusion.
--- NOTE | 2023-04-17 08:56 | PM.EVENT ---
Event Note Date of Service: 04/17/23 Event Note: GI Consult-Full note dictated Imp: Microcytic anemia with Iron deficiency. She had been using some aspirin and Naproxen for back pain and arthritis but stopped a couple of weeks ago. She has not had any localizing GI sx nor any obvious bleeding, although she does describe some dark brown stools. She has never had a colonoscopy nor upper endoscopy. Her only family history is ulcerative colitis in her mother. Denies tobacco and EtOH. Diff Dx: NSAID-induced chronic UGI bleeding such as silent ulcer, gastritis, etc. Upper or lower GI neoplasm, AVM's, celiac disease with iron malabsorption. Rec: EGD/Colonoscopy 04/[address] Boyle. Full consent obtained for this, including risks of bleeding and perforation. Agree with 3rd unit PRBC. Follow Hgb. Empiric PPI in the meantime. D/W patient in detail and she is comfortable with this plan. Thanks Time Spent With Patient Time: Total time managing care of this patient today ____ minutes.
--- NOTE | 2023-04-17 09:07 | MHC.SHP ---
Pre-Procedural Eval Section A Date of Service: 04/18/23 The patient is an INPATIENT: Yes The History & Physical has been completed within 30 days and I have reviewed it.: Yes Section B Chief Complaint: Anemia Allergies: Allergies Allergy/AdvReac Type Severity Reaction Status Date / Time ampicillin [AMPICILLIN] Allergy Unknown UNKNOWN Verified 04/16/23 08:29 tetracycline [TETRACYCLINE] Allergy Unknown UNKNOWN Verified 04/16/23 08:29 Plan I have reviewed the history and physical and performed a pertinent physical examination on my patient. No changes have occurred unless specified. Time Spent With Patient Time: Total time managing care of this patient today ____ minutes.
--- NOTE | 2023-04-17 09:13 | MHC.CM.PN ---
CM met with Patient at bedside and addressed the IMM with her, providing Patient with the original and placing a copy on the chart. Patient lives with her Sister in a condo and she just recently switched from a cane to a walker. 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 Home with new [facility] pending PT eval is the tentative plan and CM has initiated and will follow for dc planning. Patient's Daughter/Yamel is the HCP and the PCP is Dr. Ashleigh Grullon.
--- NOTE | 2023-04-17 09:42 | P.PNIM_ITS ---
Subjective Subjective Date of Service: 04/17/23 Review of Systems Follow-up for anemia Stable H&H Patient denies any chest pain, shortness breath Physical Exam 2 Vital Signs: Vital Signs: Last Vital Signs Temp 98.2 F 04/17/23 07:56 Pulse 88 04/17/23 07:56 Resp 20 04/17/23 07:56 BP 175/80 H 04/17/23 07:56 Pulse Ox 97 04/17/23 07:56 O2 Del Method Room Air 04/17/23 07:56 BMI result Body Mass Index 31.6 Appearing in no acute distress lung sounds are clear to auscultation heart regular rate rhythm, clear S1, S2 positive bowel sounds, abdomen is soft, nontender neuro patient is alert x3, no focal deficits Objective Data Active Medications Acetaminophen (Acetaminophen 325 Mg Tablet) 650 mg PO Q6H PRN PRN Reason: Pain, Mild (Pain Scale 1-3) Bisacodyl (Bisacodyl 5 Mg Tablet.) 10 mg PO ONCE ONE Stop: 04/17/23 18:02 Bisacodyl (Bisacodyl 5 Mg Tablet.) 10 mg PO ONCE ONE Stop: 04/17/23 13:01 Omeprazole (Omeprazole 40 Mg Capsule.) 40 mg PO DAILY@0630 [facility] Last Admin: 04/17/23 06:24 Dose: 40 mg Documented By: LOPEZ Ondansetron HCl (Ondansetron Hcl 4 Mg/2 Ml Vial) 4 mg IVPUSH Q8H PRN PRN Reason: Nausea and Vomiting Polyethylene Glycol/Electrolytes (Peg 3350/Na Sulf,Bicarb,Cl/Kcl 4,000 Ml Soln.Recon) 4,000 ml PO ONCE ONE Stop: 04/17/23 15:01 Sodium Chloride (0.9 % Sodium Chloride Flush 3 Ml Syringe) [facility] Last Admin: 04/17/23 03:58 Dose: 3 ml Documented By: LOPEZ Labs 04/17/23 06:33 04/17/23 06:33 Labs: Laboratory Results - last 24 hr 04/16/23 04/16/23 04/16/23 13:24 13:39 15:37 MCV 59.3 L MCH 16.2 L MCHC 27.3 L RDW 18.6 H Plt Count 318 MPV 9.4 Immature Gran % (Auto) 0.6 H Neut % (Auto) 55.1 Lymph % (Auto) 33.0 [place] % (Auto) 10.7 Eos % (Auto) 0.6 Baso % (Auto) 0.0 Lymph # (Auto) 1.7 [place] # (Auto) 0.5 Eos # (Auto) 0.0 Baso # (Auto) 0.0 Abs Immat Gran (auto) 0.03 Absolute Neuts (auto) 2.8 Absolute Nucleated RBC 0.020 H Nucleated RBC % (auto) 0.4 H Anion Gap 12 Estim Creat Clear Calc 58.6 Estimated GFR > 60 Random Glucose 104 Lactic Acid 1.0 Calcium 8.7 Magnesium 2.1 Total Bilirubin 0.8 AST 17 ALT 14 Alkaline Phosphatase 73 Total Protein 6.3 L Albumin 4.0 Lipase 10 Urine Color Urine Appearance Urine pH Ur Specific Post Urine Protein Urine Glucose (UA) Urine Ketones Urine Blood Urine Nitrite Ur Leukocyte Esterase Stool Occult Blood NEGATIVE Blood Type AB Positive Antibody Screen NEGATIVE Crossmatch See Detail 04/16/23 04/17/23 16:18 06:33 MCV 68.7 L D MCH 19.9 L MCHC 29.0 L RDW 25.7 H Plt Count 279 MPV 9.1 L Immature Gran % (Auto) Neut % (Auto) Lymph % (Auto) [place] % (Auto) Eos % (Auto) Baso % (Auto) Lymph # (Auto) [place] # (Auto) Eos # (Auto) Baso # (Auto) Abs Immat Gran (auto) Absolute Neuts (auto) Absolute Nucleated RBC 0.080 H Nucleated RBC % (auto) 1.5 H Anion Gap 12 Estim Creat Clear Calc 59.3 Estimated GFR > 60 Random Glucose 101 Lactic Acid Calcium 8.8 Magnesium Total Bilirubin 4.3 H AST 15 ALT 11 Alkaline Phosphatase 75 Total Protein 6.0 L Albumin 3.8 Lipase Urine Color Yellow Urine Appearance Clear Urine pH 7.5 Ur Specific Post <= 1.005 Urine Protein Negative Urine Glucose (UA) Negative Urine Ketones Negative Urine Blood Negative Urine Nitrite Negative Ur Leukocyte Esterase Negative Stool Occult Blood Blood Type Antibody Screen Crossmatch Assessment and Plan (1) Anemia: Status: Acute Plan 82-year-old woman admitted with acute in blood-loss anemia /GI bleed from unknown cause Acute blood loss anemia/ GI bleed , unspecified Unknown source of bleeding, possibly upper GI bleed source as patient reports taking naproxen 2-4 pills a day over the last several weeks back pain s/p 3 units packed red blood cells Stool occult negative GI consultation> plan for EGD and colo 04/18/23 iron 11/TIBC 443, start iron supplement after procedures PPI npo after midnight, clears today Elevated blood pressure reading Patient declines history of hypertension May be secondary to hospitalization Will add IV hydralazine for systolic blood pressure greater than 190 Possible PNA, unspecified Noted on one view chest x-ray no fever, leukocytosis, cough or shortness of breath Will hold off on antibiotics and monitor patient DVT prophylaxis with pneumatic compression boots Attending Dr. Chiang Full code continue hospitalization for treatment acute blood loss anemia requiring blood transfusion and specialty follow-up that cannot be done at a lesser acute setting. Quality Stroke Does the patient have a stroke diagnosis?: No VTE Prior VTE?: No VTE Risk Level:: Medical - moderate - high VTE Device Contraindication: N/A - Device Ordered VTE Drug Contraindication: Treatment Not Indicated
[2023-04-17] MEDS: Acetaminophen 325 MG TABLET 650 MG PO (09:47)
[2023-04-17] MEDS: amLODIPine Besylate 2.5 MG TABLET PO (11:52)
--- NOTE | 2023-04-17 13:12 | P.CDIM_ITS ---
PROVIDER RESPONSE TEXT: To clarify, the appropriate diagnosis supported by the clinical indicators: Clinically unable to determine (explain): undetermined at this point QUERY TEXT: PHYSICIAN'S DOCUMENTATION REQUEST Date of Query: 04/17/2023 12:08 PM EST Patient Name: Crystal Barrera Admit Date: 04/16/2023 Dear Geno Torres, A review of the medical record indicates additional documentation may be needed. Please review below and update the documentation accordingly. Clinical Indicators: GI: Impression - Microcytic anemia with Iron deficiency. Has been using aspirin and Naproxen, dark br own stools. H&P: Acute blood loss anemia/GI bleed Iron 11L/TIBC 443 2 units PRBC, patient agrees with 3rd unit PRBC. Based on the above, could you clarify which of the following is the most likely type of anemia you ar e evaluating, treating, and/or monitoring? Iron deficiency anemia Iron deficiency anemia due to chronic blood loss Iron deficiency anemia due to acute on chronic blood loss Other Other (explain) Clinically unable to determine (explain) Thank you, Jamilah Julien, CCS, CDIS Use of terms such as suspected, likely, concern for, or probable (associated with a specific diagnosi s that is being evaluated, monitored, or treated as if it exists) are acceptable and can be coded in the inpatient se tting, when documented at the time of discharge. Please use your independent medical judgment in providing your response. THIS QUERY IS PART OF THE PERMANENT MEDICAL RECORD
[2023-04-17] MEDS: bisacodyL 5 MG TABLET.DR 10 MG PO (14:54)
[2023-04-17] MEDS: PEG 3350/Na Sulf,Bicarb,Cl/KCL 4,000 ML SOLN.RECON 4000 ML PO (15:03)
[2023-04-18] VITALS (10 sets, daily range): BP systolic 120–181; BP diastolic 60–102; PULSE 68–94; RESP 16–22; TEMP 36.1–37.1; O2SAT 93–98; BMI 29.9
--- NOTE | 2023-04-18 00:29 | CONS_ITS ---
DATE OF SERVICE: 04/17/2023 REASON FOR CONSULTATION: Iron-deficiency anemia. HISTORY OF PRESENT ILLNESS: This has been obtained from the patient and the medical record. The patient is a healthy 82-year-old female, who has noted some progressive fatigue at home. However, she was otherwise feeling well without any particular GI symptoms. She had some routine outpatient lab testing and was noted to be quite anemic with a hemoglobin of 5.0 and hematocrit of 18.7, and an MCV of 61.5 on the morning of April 16. Her hemoglobin in October had been 11.9 with MCV of 78. Hemoglobin in January of 2022 was 13.1 with MCV of 83. Due to the low blood count, she was advised to come to the ER. A repeat hemoglobin was 4.7. She was admitted for further evaluation. Her evaluation in the ER was also notable for brown heme-negative stool. The patient had been using some aspirin and/or naproxen over the past few weeks at least for some back pain and arthritis. However, she reports having stopped that about 2 weeks ago. She has noticed some dark brown stools, but no melena nor hematochezia. She enjoys a good appetite without any significant heartburn nor dysphagia. She denies any abdominal pain, jaundice, nor unintentional weight loss. Her bowel movements are otherwise regular and without any hematochezia. She has never had an upper endoscopy nor colonoscopy. She denies any known family history of colorectal cancer. She does not use any tobacco nor alcohol. Since having stopped the aspirin and naproxen 2 to 3 weeks ago, she has had no further NSAIDs. Thus far here in the hospital, she has received 2 units of blood and is scheduled to receive a third unit. MEDICATIONS: At home include meclizine p.r.n., naproxen p.r.n., and aspirin p.r.n. Current medications include acetaminophen, amlodipine, Zofran. PAST MEDICAL HISTORY: Surgeries include cataracts, left hip replacement, left knee replacement, and appendectomy. She denies history of SD, diabetes, stroke, lung disease or kidney disease. SOCIAL HISTORY: She is a . She does not smoke nor use any significant amounts of alcohol. REVIEW OF SYSTEMS: CONSTITUTIONAL: She has been having fatigue and some shortness of breath due to the anemia. SKIN: No rash. No pruritus. CARDIAC: No chest pain. PULMONARY: No coughing or hemoptysis. GI: As above. URINARY: No dysuria. No hematuria. NEUROLOGIC: No headache or seizures. FAMILY HISTORY: Her mother has ulcerative colitis, but there is no family history of GI malignancy. There is no family history of celiac disease. PHYSICAL EXAMINATION: GENERAL: The patient is a pleasant, alert, pale female, in no distress. SKIN: Warm and dry. HEENT: Anicteric sclerae. Moist mucous membranes. NECK: Supple without lymphadenopathy. CHEST: Clear. CARDIAC: Normal S1, S2. ABDOMEN: Soft, nondistended, nontender without palpable mass. EXTREMITIES: Without edema. NEUROLOGICAL: She is alert and oriented. LABORATORY DATA: CBCs as above. CBC this morning after 2 units of blood showed a hemoglobin of 7.2. Platelet count was 279,000. Normal electrolytes. BUN 9, creatinine 0.8; BUN on admission was 13 with a creatinine of 0.9. Iron 11, TIBC 443, iron saturation 2%. Normal LFTs. Lipase 10. Stool was Hemoccult negative. IMAGING DATA: Chest x-ray revealed a question of a left lower lobe pneumonia, but no sign of any CHF. Small bilateral pleural effusions were noted as well. IMPRESSION: Given the patient's significant iron deficiency anemia, I did review with her that the most likely diagnoses would be that of some chronic gastrointestinal blood loss from her gastrointestinal tract. She has been using some aspirin and naproxen fairly regularly for at least several weeks up until recently and this may certainly account for any chronic upper gastrointestinal blood loss from silent ulcer disease, gastritis, and/or duodenitis. She has not had any obvious bleeding, but again may very well have some chronic slow blood loss from her upper gastrointestinal tract. She looks like she had the beginnings of an anemia earlier this year as well. We did review other potential diagnoses including that of upper or lower gastrointestinal neoplasm, angiodysplasias, celiac disease with iron malabsorption, or polyps. At this point, I would recommend both upper endoscopy and colonoscopy with myself or Dr. Boyle. Full consent has been obtained for this, including risks of bleeding and perforation. In the meantime, I would agree with the third unit of blood for transfusion and following up a blood count. I would start her empirically on a PPI to treat any source of upper gastrointestinal bleeding. Full consent has been obtained from her for both upper endoscopy and colonoscopy, including risks of bleeding and perforation. The patient was comfortable with this plan. Thank you for the consultation. MD DARLYN Jerez/BRINDA / [phone] MTDD
[2023-04-18 06:26] LABS: MANUAL DIFF FLAG NO
[2023-04-18 06:35] LABS: Eosinophils Absolute Auto 0.2 X10*3/uL (0.0-0.4); Eosinophils Percent Auto 2.6 % (0-4); Hematocrit 29.7 % (37.0-47.0); INTERNATIONAL NORM RATIO 1.2 (0.9-1.1); Imm Gran Abs Auto 0.02 X10*3/uL (0.00-0.03); Imm Gran Pct Auto 0.3 % (0.0-0.4); Lymphocytes Absolute Auto 1.3 X10*3/uL (1.2-4.9); Mean Corpuscular HGB Conc 30.3 g/dl (31.0-35.0); Mean Corpuscular Hemoglobin 21.6 pg (27.0-33.0); Mean Corpuscular Volume 71.2 fL (80.0-98.0); Mean Platelet Volume 8.8 fL (9.4-12.3); Monocytes Absolute Auto 0.6 X10*3/uL (0.1-1.2); Monocytes Percent Auto 10.1 % (2-11); NRBC Pct Auto 0.3 /100WBC (0.0-0.2); Platelet Count 240 X10*3/uL (160-400); Prothrombin Time 14.4 SEC (11.1-13.3); Red Blood Count 4.17 X10*6/uL (4.20-5.50); Red Cell Distribution Width 27.9 % (11.0-16.0)
[2023-04-18 06:50] LABS: Alanine Aminotransferase 13 U/L (0-31); Albumin Level 3.7 g/dL (3.5-5.0); Alkaline Phosphatase 80 U/L (39-117); Anion Gap 12 (12-20); Aspartate Amino Transferase 17 U/L (5-31); Bilirubin Direct 0.6 mg/dL (0.0-0.5); Bilirubin Total 2.1 mg/dL (0.0-1.0); Blood Urea Nitrogen 7 mg/dL (9-16); Calcium 8.7 mg/dL (8.4-10.2); Carbon Dioxide 25 mmol/L (22-29); Chloride 105 mmol/L (96-108); Creatinine Clr Calc Pharmacy 61.6; Estimated Glomerular Filt Rate > 60; Glucose Fasting 105 mg/dL (60-99); Potassium 2.8 mmol/L (3.3-5.1); Sodium 139 mmol/L (135-145)
--- NOTE | 2023-04-18 09:07 | MHC.CM.PN ---
Per [facility], Patient is having an Endoscopy and Colonoscopy today and is not yet medically cleared for dc. Patient may benefit from a PT eval to assist with disposition. CM will follow.
--- NOTE | 2023-04-18 12:44 | HO.PM.IMPN ---
Subjective Subjective Date of Service: 04/18/23 Review of Systems Follow-up for anemia Stable H&H Patient denies any chest pain, shortness breath Physical Exam Vital Signs: Vital Signs: Last Vital Signs Temp 98.3 F 04/18/23 11:41 Pulse 73 04/18/23 11:41 Resp 18 04/18/23 11:41 BP 166/79 H 04/18/23 11:41 Pulse Ox 93 04/18/23 11:41 O2 Del Method Room Air 04/18/23 11:41 BMI result Body Mass Index 31.6 Appearing in no acute distress lung sounds are clear to auscultation heart regular rate rhythm, clear S1, S2 positive bowel sounds, abdomen is soft, nontender neuro patient is alert x3, no focal deficits Objective Data Active Medications Acetaminophen (Acetaminophen 325 Mg Tablet) 650 mg PO Q6H PRN PRN Reason: Pain, Mild (Pain Scale 1-3) Last Admin: 04/17/23 09:47 Dose: 650 mg Documented By: CHAKA Amlodipine Besylate (Amlodipine Besylate 2.5 Mg Tablet) 2.5 mg PO DAILY [facility]; Protocol Last Admin: 04/18/23 09:50 Dose: Not Given Documented By: JESI Non-Admin Reason: NPO Influenza Virus Vaccine (Flu Vacc [id number](6mos Up)/Pf 0.5 Ml Syringe) 0.5 ml IM .ONCE ONE Stop: 04/18/23 18:01 Omeprazole (Omeprazole 40 Mg Capsule.Dr) 40 mg PO DAILY@0630 [facility] Last Admin: 04/18/23 06:14 Dose: Not Given Documented By: LY Non-Admin Reason: NPO Ondansetron HCl (Ondansetron Hcl 4 Mg/2 Ml Vial) 4 mg IVPUSH Q8H PRN PRN Reason: Nausea and Vomiting Sodium Chloride (0.9 % Sodium Chloride Flush 3 Ml Syringe) 3 ml IVFLUSH QSHIFT [facility] Last Admin: 04/18/23 11:13 Dose: Not Given Documented By: JESI Non-Admin Reason: Patient Asleep Labs 04/18/23 06:19 04/18/23 06:19 Labs: Laboratory Results - last 24 hr 04/16/23 04/18/23 04/18/23 13:39 06:19 06:19 MCV Cancelled 71.2 L MCH Cancelled MCHC RDW Plt Count MPV Immature Gran % (Auto) Neut % (Auto) Lymph % (Auto) [place] % (Auto) Eos % (Auto) Baso % (Auto) Lymph # (Auto) [place] # (Auto) Eos # (Auto) Baso # (Auto) Abs Immat Gran (auto) Absolute Neuts (auto) Absolute Nucleated RBC Nucleated RBC % (auto) PT INR Anion Gap Estim Creat Clear Calc Estimated GFR Fasting Glucose Calcium Total Bilirubin Direct Bilirubin AST ALT Alkaline Phosphatase Total Protein Albumin Crossmatch See Detail 04/18/23 04/18/23 04/18/23 06:19 06:19 06:19 MCV MCH 21.6 L MCHC Cancelled 30.3 L RDW Cancelled 27.9 H Plt Count Cancelled MPV Immature Gran % (Auto) Neut % (Auto) Lymph % (Auto) [place] % (Auto) Eos % (Auto) Baso % (Auto) Lymph # (Auto) [place] # (Auto) Eos # (Auto) Baso # (Auto) Abs Immat Gran (auto) Absolute Neuts (auto) Absolute Nucleated RBC Nucleated RBC % (auto) PT INR Anion Gap Estim Creat Clear Calc Estimated GFR Fasting Glucose Calcium Total Bilirubin Direct Bilirubin AST ALT Alkaline Phosphatase Total Protein Albumin Crossmatch 04/18/23 04/18/23 04/18/23 06:19 06:19 06:19 MCV MCH MCHC RDW Plt Count 240 MPV Cancelled 8.8 L Immature Gran % (Auto) 0.3 Neut % (Auto) 66.0 Lymph % (Auto) 21.0 [place] % (Auto) 10.1 Eos % (Auto) 2.6 Baso % (Auto) 0.0 Lymph # (Auto) 1.3 [place] # (Auto) 0.6 Eos # (Auto) 0.2 Baso # (Auto) 0.0 Abs Immat Gran (auto) 0.02 Absolute Neuts (auto) 4.0 Absolute Nucleated RBC Cancelled 0.020 H Nucleated RBC % (auto) Cancelled PT INR Anion Gap Estim Creat Clear Calc Estimated GFR Fasting Glucose Calcium Total Bilirubin Direct Bilirubin AST ALT Alkaline Phosphatase Total Protein Albumin Crossmatch 04/18/23 06:19 MCV MCH MCHC RDW Plt Count MPV Immature Gran % (Auto) Neut % (Auto) Lymph % (Auto) [place] % (Auto) Eos % (Auto) Baso % (Auto) Lymph # (Auto) [place] # (Auto) Eos # (Auto) Baso # (Auto) Abs Immat Gran (auto) Absolute Neuts (auto) Absolute Nucleated RBC Nucleated RBC % (auto) 0.3 H PT 14.4 H INR 1.2 H Anion Gap 12 Estim Creat Clear Calc 61.6 Estimated GFR > 60 Fasting Glucose 105 H Calcium 8.7 Total Bilirubin 2.1 H Direct Bilirubin 0.6 H AST 17 ALT 13 Alkaline Phosphatase 80 Total Protein 6.0 L Albumin 3.7 Crossmatch Microbiology Microbiology Results: Microbiology 04/16/23 15:38 Blood Culture - Preliminary Blood - Venous No growth after 24 hours. 04/16/23 15:37 Blood Culture - Preliminary Blood - Venous No growth after 24 hours. Assessment and Plan (1) Anemia: Status: Acute Plan 82-year-old woman admitted with acute in blood-loss anemia /GI bleed from unknown cause Acute blood loss anemia/ GI bleed , unspecified Unknown source of bleeding, possibly upper GI bleed source as patient reports taking naproxen 2-4 pills a day over the last several weeks back pain s/p 3 units packed red blood cells, HH stable 9.0/29.7 Stool occult negative iron 11/TIBC 443, start iron supplement after procedures PPI EGD and colonoscopy today Hypokalemia likely from poor nutritional status vs colon prep replete with oral potassium check BMP in am Elevated blood pressure reading Patient declines history of hypertension May be secondary to hospitalization Will add IV hydralazine for systolic blood pressure greater than 190 Possible PNA, unspecified Noted on one view chest x-ray no fever, leukocytosis, cough or shortness of breath Will hold off on antibiotics and monitor patient DVT prophylaxis with pneumatic compression boots Attending Dr. Chiang Full code DISPO dc home when medically clear continue hospitalization for treatment acute blood loss anemia requiring blood transfusion and specialty follow-up that cannot be done at a lesser acute setting. Quality Stroke Does the patient have a stroke diagnosis?: No VTE Prior VTE?: No VTE Risk Level:: Medical - moderate - high VTE Device Contraindication: N/A - Device Ordered VTE Drug Contraindication: Treatment Not Indicated
[2023-04-18] MEDS: Lactated Ringers 1,000 ML 100 ML IVCONT (14:13)
--- NOTE | 2023-04-18 14:13 | HO.ANESPROP2 ---
HPI - Anesthesia Eval Consult details Narrative: right layeral rectus repair PMFSH Active Problems Active Problems: All Active Problems (Updated 04/16/23 @ 19:32 by DICKSON Aguilar) Anemia (Acute) Poor balance (Acute) Vertigo (Acute) Anemia (Acute) Lumbar stenosis (Acute) Left hip pain (Acute) Low back pain (Acute) Right hip pain (Acute) Annual physical exam (Acute) Actinic keratosis (Acute) Lower back pain (Acute) Increased urinary frequency (Acute) S/P total left hip arthroplasty (Acute) History of laminectomy (Acute) Vitamin D deficiency (Acute) Hyperglycemia (Acute) HTN (hypertension) (Acute) Hyperlipidemia (Acute) Hx of mammogram (Acute) Osteoarthritis of left hip (Acute) Total knee replacement status (Acute) Past Medical History Medical History FH: total knee replacement Family History Family History Father No problems noted. Mother Breast cancer Family history of problems with anesthesia: No Surgical History Surgical History History of appendectomy H/O left knee surgery H/O cataract removal with insertion of prosthetic lens History of lumbar fusion History of total right hip replacement (02/16/22) History of Problems with Anesthesia: No Social History Social History Household Members: Family Household Members Other:: , lives with sister, 2 daughters, 3 grandchildren [facility] Do you presently have visiting nurse or other home services: No Patient Tobacco Use Status: Never used Tobacco e-Cigarette/Vaping Use: Never Used Advance Directives Date on File: 10/16/22 service: No Current occupational status: retired Cognitive needs: No Hearing needs: Yes Vision needs: No Meds Allergies Allergy/AdvReac Type Severity Reaction Status Date / Time ampicillin [AMPICILLIN] Allergy Unknown UNKNOWN Verified 04/16/23 08:29 tetracycline [TETRACYCLINE] Allergy Unknown UNKNOWN Verified 04/16/23 08:29 Active Medications: Current Medications Acetaminophen (Acetaminophen 325 Mg Tablet) 650 mg PO Q6H PRN PRN Reason: Pain, Mild (Pain Scale 1-3) Last Admin: 04/17/23 09:47 Dose: 650 mg Amlodipine Besylate (Amlodipine Besylate 2.5 Mg Tablet) 2.5 mg PO DAILY [facility]; Protocol Last Admin: 04/18/23 09:50 Dose: Not Given Lactated Ringer's (Lr) 1,000 mls @ 100 mls/hr IVCONT .Q10H [facility] Influenza Virus Vaccine (Flu Vacc [id number](6mos Up)/Pf 0.5 Ml Syringe) 0.5 ml IM .ONCE ONE Stop: 04/18/23 18:01 Omeprazole (Omeprazole 40 Mg Capsule.Dr) 40 mg PO DAILY@0630 [facility] Last Admin: 04/18/23 06:14 Dose: Not Given Ondansetron HCl (Ondansetron Hcl 4 Mg/2 Ml Vial) 4 mg IVPUSH Q8H PRN PRN Reason: Nausea and Vomiting Potassium Chloride (Potassium Chloride Er 20 Meq Tab.Er.Prt) 40 meq PO ONCE ONE Stop: 04/18/23 21:01 Sodium Chloride (0.9 % Sodium Chloride Flush 3 Ml Syringe) 3 ml IVFLUSH QSHIFT [facility] Last Admin: 04/18/23 11:13 Dose: Not Given Exam Exam Date and Time: April 18, 2023 1413 Height,Weight and Vital Signs: Height 5 ft 4 in Weight 78.925 kg Last Vital Signs Temp 96.9 F 04/18/23 13:57 Pulse 94 04/18/23 13:57 Resp 18 04/18/23 13:57 BP 181/102 H 04/18/23 13:57 Pulse Ox 97 04/18/23 13:57 O2 Del Method Room Air 04/18/23 13:57 Pertinent Lab Results Pertinent Lab Results: Laboratory Tests 04/16/23 04/16/23 04/16/23 13:24 13:39 15:37 WBC 5.1 RBC 2.90 L Hgb 4.7 L* Hct 17.2 L* MCV 59.3 L MCH 16.2 L MCHC 27.3 L RDW 18.6 H Plt Count 318 MPV 9.4 Immature Gran % (Auto) 0.6 H Neut % (Auto) 55.1 Lymph % (Auto) 33.0 [place] % (Auto) 10.7 Eos % (Auto) 0.6 Baso % (Auto) 0.0 Lymph # (Auto) 1.7 [place] # (Auto) 0.5 Eos # (Auto) 0.0 Baso # (Auto) 0.0 Abs Immat Gran (auto) 0.03 Absolute Neuts (auto) 2.8 Absolute Nucleated RBC 0.020 H Nucleated RBC % (auto) 0.4 H PT INR Sodium 137 Potassium 3.3 Chloride 101 Carbon Dioxide 27 Anion Gap 12 BUN 12 Creatinine 0.80 Estim Creat Clear Calc 58.6 Estimated GFR > 60 Random Glucose 104 Fasting Glucose Lactic Acid 1.0 Calcium 8.7 Magnesium 2.1 Total Bilirubin 0.8 Direct Bilirubin AST 17 ALT 14 Alkaline Phosphatase 73 Total Protein 6.3 L Albumin 4.0 Lipase 10 Urine Color Urine Appearance Urine pH Ur Specific [place] Urine Protein Urine Glucose (UA) Urine Ketones Urine Blood Urine Nitrite Ur Leukocyte Esterase Stool Occult Blood NEGATIVE Blood Type AB Positive Antibody Screen NEGATIVE Crossmatch See Detail 04/16/23 04/16/23 04/17/23 16:18 21:59 06:33 WBC 5.4 RBC 3.61 L D Hgb 6.0 L* D 7.2 L Hct 20.4 L* 24.8 L D MCV 68.7 L D MCH 19.9 L MCHC 29.0 L RDW 25.7 H Plt Count 279 MPV 9.1 L Immature Gran % (Auto) Neut % (Auto) Lymph % (Auto) [place] % (Auto) Eos % (Auto) Baso % (Auto) Lymph # (Auto) [place] # (Auto) Eos # (Auto) Baso # (Auto) Abs Immat Gran (auto) Absolute Neuts (auto) Absolute Nucleated RBC 0.080 H Nucleated RBC % (auto) 1.5 H PT INR Sodium 140 Potassium 3.6 Chloride 105 Carbon Dioxide 27 Anion Gap 12 BUN 9 Creatinine 0.79 Estim Creat Clear Calc 59.3 Estimated GFR > 60 Random Glucose 101 Fasting Glucose Lactic Acid Calcium 8.8 Magnesium Total Bilirubin 4.3 H Direct Bilirubin AST 15 ALT 11 Alkaline Phosphatase 75 Total Protein 6.0 L Albumin 3.8 Lipase Urine Color Yellow Urine Appearance Clear Urine pH 7.5 Ur Specific [place] <= 1.005 Urine Protein Negative Urine Glucose (UA) Negative Urine Ketones Negative Urine Blood Negative Urine Nitrite Negative Ur Leukocyte Esterase Negative Stool Occult Blood Blood Type Antibody Screen Crossmatch 04/18/23 04/18/23 04/18/23 06:19 06:19 06:19 WBC Cancelled 6.0 RBC Cancelled 4.17 L Hgb Cancelled Hct MCV MCH MCHC RDW Plt Count MPV Immature Gran % (Auto) Neut % (Auto) Lymph % (Auto) [place] % (Auto) Eos % (Auto) Baso % (Auto) Lymph # (Auto) [place] # (Auto) Eos # (Auto) Baso # (Auto) Abs Immat Gran (auto) Absolute Neuts (auto) Absolute Nucleated RBC Nucleated RBC % (auto) PT INR Sodium Potassium Chloride Carbon Dioxide Anion Gap BUN Creatinine Estim Creat Clear Calc Estimated GFR Random Glucose Fasting Glucose Lactic Acid Calcium Magnesium Total Bilirubin Direct Bilirubin AST ALT Alkaline Phosphatase Total Protein Albumin Lipase Urine Color Urine Appearance Urine pH Ur Specific [place] Urine Protein Urine Glucose (UA) Urine Ketones Urine Blood Urine Nitrite Ur Leukocyte Esterase Stool Occult Blood Blood Type Antibody Screen Crossmatch 04/18/23 04/18/23 04/18/23 06:19 06:19 06:19 WBC RBC Hgb 9.0 L D Hct Cancelled 29.7 L MCV Cancelled 71.2 L MCH Cancelled MCHC RDW Plt Count MPV Immature Gran % (Auto) Neut % (Auto) Lymph % (Auto) [place] % (Auto) Eos % (Auto) Baso % (Auto) Lymph # (Auto) [place] # (Auto) Eos # (Auto) Baso # (Auto) Abs Immat Gran (auto) Absolute Neuts (auto) Absolute Nucleated RBC Nucleated RBC % (auto) PT INR Sodium Potassium Chloride Carbon Dioxide Anion Gap BUN Creatinine Estim Creat Clear Calc Estimated GFR Random Glucose Fasting Glucose Lactic Acid Calcium Magnesium Total Bilirubin Direct Bilirubin AST ALT Alkaline Phosphatase Total Protein Albumin Lipase Urine Color Urine Appearance Urine pH Ur Specific [place] Urine Protein Urine Glucose (UA) Urine Ketones Urine Blood Urine Nitrite Ur Leukocyte Esterase Stool Occult Blood Blood Type Antibody Screen Crossmatch 04/18/23 04/18/23 04/18/23 06:19 06:19 06:19 WBC RBC Hgb Hct MCV MCH 21.6 L MCHC Cancelled 30.3 L RDW Cancelled 27.9 H Plt Count Cancelled MPV Immature Gran % (Auto) Neut % (Auto) Lymph % (Auto) [place] % (Auto) Eos % (Auto) Baso % (Auto) Lymph # (Auto) [place] # (Auto) Eos # (Auto) Baso # (Auto) Abs Immat Gran (auto) Absolute Neuts (auto) Absolute Nucleated RBC Nucleated RBC % (auto) PT INR Sodium Potassium Chloride Carbon Dioxide Anion Gap BUN Creatinine Estim Creat Clear Calc Estimated GFR Random Glucose Fasting Glucose Lactic Acid Calcium Magnesium Total Bilirubin Direct Bilirubin AST ALT Alkaline Phosphatase Total Protein Albumin Lipase Urine Color Urine Appearance Urine pH Ur Specific [place] Urine Protein Urine Glucose (UA) Urine Ketones Urine Blood Urine Nitrite Ur Leukocyte Esterase Stool Occult Blood Blood Type Antibody Screen Crossmatch 04/18/23 04/18/23 04/18/23 06:19 06:19 06:19 WBC RBC Hgb Hct MCV MCH MCHC RDW Plt Count 240 MPV Cancelled 8.8 L Immature Gran % (Auto) 0.3 Neut % (Auto) 66.0 Lymph % (Auto) 21.0 [place] % (Auto) 10.1 Eos % (Auto) 2.6 Baso % (Auto) 0.0 Lymph # (Auto) 1.3 [place] # (Auto) 0.6 Eos # (Auto) 0.2 Baso # (Auto) 0.0 Abs Immat Gran (auto) 0.02 Absolute Neuts (auto) 4.0 Absolute Nucleated RBC Cancelled 0.020 H Nucleated RBC % (auto) Cancelled PT INR Sodium Potassium Chloride Carbon Dioxide Anion Gap BUN Creatinine Estim Creat Clear Calc Estimated GFR Random Glucose Fasting Glucose Lactic Acid Calcium Magnesium Total Bilirubin Direct Bilirubin AST ALT Alkaline Phosphatase Total Protein Albumin Lipase Urine Color Urine Appearance Urine pH Ur Specific [place] Urine Protein Urine Glucose (UA) Urine Ketones Urine Blood Urine Nitrite Ur Leukocyte Esterase Stool Occult Blood Blood Type Antibody Screen Crossmatch 04/18/23 06:19 WBC RBC Hgb Hct MCV MCH MCHC RDW Plt Count MPV Immature Gran % (Auto) Neut % (Auto) Lymph % (Auto) [place] % (Auto) Eos % (Auto) Baso % (Auto) Lymph # (Auto) [place] # (Auto) Eos # (Auto) Baso # (Auto) Abs Immat Gran (auto) Absolute Neuts (auto) Absolute Nucleated RBC Nucleated RBC % (auto) 0.3 H PT 14.4 H INR 1.2 H Sodium 139 Potassium 2.8 L D Chloride 105 Carbon Dioxide 25 Anion Gap 12 BUN 7 L Creatinine 0.76 Estim Creat Clear Calc 61.6 Estimated GFR > 60 Random Glucose Fasting Glucose 105 H Lactic Acid Calcium 8.7 Magnesium Total Bilirubin 2.1 H Direct Bilirubin 0.6 H AST 17 ALT 13 Alkaline Phosphatase 80 Total Protein 6.0 L Albumin 3.7 Lipase Urine Color Urine Appearance Urine pH Ur Specific [place] Urine Protein Urine Glucose (UA) Urine Ketones Urine Blood Urine Nitrite Ur Leukocyte Esterase Stool Occult Blood Blood Type Antibody Screen Crossmatch Airway Mallampati Class: II TM Dist: >3cm Neck ROM: Full Heart: rrr Lungs: cta Assessment and Plan Assessment Anesthesia Assessment: Anesthesia Plan Discussed and Chart Reviewed Final Anesthetic Review Family History of Problems with Anesthesia: No History of Problems with Anesthesia: No NPO: Yes ASA Class: II Final Preanesthetic Review: No Changes in Pt Med Stat, Meds/Allgs Chart Reviewed, Consent Obtained/Reviewed and Anes Risks/Benef Reviewed Patient Risk: Low Procedure Risk: Low Anesthetic Plan Anesthetic Plan: GA Disposition: Standard PACU
--- NOTE | 2023-04-18 14:31 | HO.ANESPROP2 ---
HPI - Anesthesia Eval Consult details Narrative: 82 yo female patient for EGD, Colonoscopy. Routine blood test 04/16/23 revealed H/H 5/18.2. S/p transfusion 0f 3u PRBC. H/H today 03/02.7 Never had Colonoscopy PMFSH Active Problems Active Problems: All Active Problems (Updated 04/18/23 @ 14:32 by Marcela Castellanos MD) Anemia (Acute) Poor balance (Acute) Vertigo (Acute) Lumbar stenosis (Acute) Left hip pain (Acute) Low back pain (Acute) Right hip pain (Acute) Annual physical exam (Acute) Actinic keratosis (Acute) Increased urinary frequency (Acute) S/P total left hip arthroplasty (Acute) History of laminectomy (Acute) Vitamin D deficiency (Acute) Hyperglycemia (Acute) HTN (hypertension) (Acute) Hyperlipidemia (Acute) Osteoarthritis of left hip (Acute) Total knee replacement status (Acute) Past Medical History Medical History FH: total knee replacement Family History Family History Father No problems noted. Mother Breast cancer Family history of problems with anesthesia: No Surgical History Surgical History History of appendectomy H/O left knee surgery H/O cataract removal with insertion of prosthetic lens History of lumbar fusion History of total right hip replacement (02/16/22) History of Problems with Anesthesia: No Social History Social History Household Members: Family Household Members Other:: , lives with sister, 2 daughters, 3 grandchildren Housing: Condominium Do you presently have visiting nurse or other home services: No Patient Tobacco Use Status: Never used Tobacco e-Cigarette/Vaping Use: Never Used Advance Directives Date on File: 10/16/22 service: No Current occupational status: retired Cognitive needs: No Hearing needs: Yes Vision needs: No Meds Allergies Allergy/AdvReac Type Severity Reaction Status Date / Time ampicillin [AMPICILLIN] Allergy Unknown UNKNOWN Verified 04/16/23 08:29 tetracycline [TETRACYCLINE] Allergy Unknown UNKNOWN Verified 04/16/23 08:29 Active Medications: Current Medications Acetaminophen (Acetaminophen 325 Mg Tablet) 650 mg PO Q6H PRN PRN Reason: Pain, Mild (Pain Scale 1-3) Last Admin: 04/17/23 09:47 Dose: 650 mg Amlodipine Besylate (Amlodipine Besylate 2.5 Mg Tablet) 2.5 mg PO DAILY [facility]; Protocol Last Admin: 04/18/23 09:50 Dose: Not Given Fentanyl (Fentanyl Citrate/Pf 100 Mcg/2 Ml Vial) 25 mcg IVPUSH Q5M PRN; Protocol PRN Reason: Pain, Moderate(Pain Scale 4-6) Lactated Ringer's (Lr) 1,000 mls @ 100 mls/hr IVCONT .Q10H [facility] Last Admin: 04/18/23 14:13 Dose: 100 mls/hr Influenza Virus Vaccine (Flu Vacc [id number](6mos Up)/Pf 0.5 Ml Syringe) 0.5 ml IM .ONCE ONE Stop: 04/18/23 18:01 Omeprazole (Omeprazole 40 Mg Capsule.Dr) 40 mg PO DAILY@0630 [facility] Last Admin: 04/18/23 06:14 Dose: Not Given Ondansetron HCl (Ondansetron Hcl 4 Mg/2 Ml Vial) 4 mg IVPUSH Q8H PRN PRN Reason: Nausea and Vomiting Ondansetron HCl (Ondansetron Hcl 4 Mg/2 Ml Vial) 4 mg IVPUSH ONCE PRN PRN Reason: Nausea and Vomiting Oxycodone HCl (Oxycodone Hcl Immed Release 5 Mg Tablet) 5 mg PO ONCE PRN PRN Reason: Pain, Severe (Pain Scale 7-10) Potassium Chloride (Potassium Chloride Er 20 Meq Tab.Er.Prt) 40 meq PO ONCE ONE Stop: 04/18/23 21:01 Sodium Chloride (0.9 % Sodium Chloride Flush 3 Ml Syringe) 3 ml IVFLUSH QSHIFT [facility] Last Admin: 04/18/23 11:13 Dose: Not Given Exam Exam Date and Time: April 18, 2023 1431 Height,Weight and Vital Signs: Height 5 ft 4 in Weight 78.925 kg Last Vital Signs Temp 96.9 F 04/18/23 13:57 Pulse 94 04/18/23 13:57 Resp 18 04/18/23 13:57 BP 181/102 H 04/18/23 13:57 Pulse Ox 97 04/18/23 13:57 O2 Del Method Room Air 04/18/23 13:57 Pertinent Lab Results Pertinent Lab Results: Laboratory Tests 04/16/23 04/16/23 04/16/23 13:24 13:39 15:37 WBC 5.1 RBC 2.90 L Hgb 4.7 L* Hct 17.2 L* MCV 59.3 L MCH 16.2 L MCHC 27.3 L RDW 18.6 H Plt Count 318 MPV 9.4 Immature Gran % (Auto) 0.6 H Neut % (Auto) 55.1 Lymph % (Auto) 33.0 [place] % (Auto) 10.7 Eos % (Auto) 0.6 Baso % (Auto) 0.0 Lymph # (Auto) 1.7 [place] # (Auto) 0.5 Eos # (Auto) 0.0 Baso # (Auto) 0.0 Abs Immat Gran (auto) 0.03 Absolute Neuts (auto) 2.8 Absolute Nucleated RBC 0.020 H Nucleated RBC % (auto) 0.4 H PT INR Sodium 137 Potassium 3.3 Chloride 101 Carbon Dioxide 27 Anion Gap 12 BUN 12 Creatinine 0.80 Estim Creat Clear Calc 58.6 Estimated GFR > 60 Random Glucose 104 Fasting Glucose Lactic Acid 1.0 Calcium 8.7 Magnesium 2.1 Total Bilirubin 0.8 Direct Bilirubin AST 17 ALT 14 Alkaline Phosphatase 73 Total Protein 6.3 L Albumin 4.0 Lipase 10 Urine Color Urine Appearance Urine pH Ur Specific [place] Urine Protein Urine Glucose (UA) Urine Ketones Urine Blood Urine Nitrite Ur Leukocyte Esterase Stool Occult Blood NEGATIVE Blood Type AB Positive Antibody Screen NEGATIVE Crossmatch See Detail 04/16/23 04/16/23 04/17/23 16:18 21:59 06:33 WBC 5.4 RBC 3.61 L D Hgb 6.0 L* D 7.2 L Hct 20.4 L* 24.8 L D MCV 68.7 L D MCH 19.9 L MCHC 29.0 L RDW 25.7 H Plt Count 279 MPV 9.1 L Immature Gran % (Auto) Neut % (Auto) Lymph % (Auto) [place] % (Auto) Eos % (Auto) Baso % (Auto) Lymph # (Auto) [place] # (Auto) Eos # (Auto) Baso # (Auto) Abs Immat Gran (auto) Absolute Neuts (auto) Absolute Nucleated RBC 0.080 H Nucleated RBC % (auto) 1.5 H PT INR Sodium 140 Potassium 3.6 Chloride 105 Carbon Dioxide 27 Anion Gap 12 BUN 9 Creatinine 0.79 Estim Creat Clear Calc 59.3 Estimated GFR > 60 Random Glucose 101 Fasting Glucose Lactic Acid Calcium 8.8 Magnesium Total Bilirubin 4.3 H Direct Bilirubin AST 15 ALT 11 Alkaline Phosphatase 75 Total Protein 6.0 L Albumin 3.8 Lipase Urine Color Yellow Urine Appearance Clear Urine pH 7.5 Ur Specific [place] <= 1.005 Urine Protein Negative Urine Glucose (UA) Negative Urine Ketones Negative Urine Blood Negative Urine Nitrite Negative Ur Leukocyte Esterase Negative Stool Occult Blood Blood Type Antibody Screen Crossmatch 04/18/23 04/18/23 04/18/23 06:19 06:19 06:19 WBC Cancelled 6.0 RBC Cancelled 4.17 L Hgb Cancelled Hct MCV MCH MCHC RDW Plt Count MPV Immature Gran % (Auto) Neut % (Auto) Lymph % (Auto) [place] % (Auto) Eos % (Auto) Baso % (Auto) Lymph # (Auto) [place] # (Auto) Eos # (Auto) Baso # (Auto) Abs Immat Gran (auto) Absolute Neuts (auto) Absolute Nucleated RBC Nucleated RBC % (auto) PT INR Sodium Potassium Chloride Carbon Dioxide Anion Gap BUN Creatinine Estim Creat Clear Calc Estimated GFR Random Glucose Fasting Glucose Lactic Acid Calcium Magnesium Total Bilirubin Direct Bilirubin AST ALT Alkaline Phosphatase Total Protein Albumin Lipase Urine Color Urine Appearance Urine pH Ur Specific [place] Urine Protein Urine Glucose (UA) Urine Ketones Urine Blood Urine Nitrite Ur Leukocyte Esterase Stool Occult Blood Blood Type Antibody Screen Crossmatch 04/18/23 04/18/23 04/18/23 06:19 06:19 06:19 WBC RBC Hgb 9.0 L D Hct Cancelled 29.7 L MCV Cancelled 71.2 L MCH Cancelled MCHC RDW Plt Count MPV Immature Gran % (Auto) Neut % (Auto) Lymph % (Auto) [place] % (Auto) Eos % (Auto) Baso % (Auto) Lymph # (Auto) [place] # (Auto) Eos # (Auto) Baso # (Auto) Abs Immat Gran (auto) Absolute Neuts (auto) Absolute Nucleated RBC Nucleated RBC % (auto) PT INR Sodium Potassium Chloride Carbon Dioxide Anion Gap BUN Creatinine Estim Creat Clear Calc Estimated GFR Random Glucose Fasting Glucose Lactic Acid Calcium Magnesium Total Bilirubin Direct Bilirubin AST ALT Alkaline Phosphatase Total Protein Albumin Lipase Urine Color Urine Appearance Urine pH Ur Specific [place] Urine Protein Urine Glucose (UA) Urine Ketones Urine Blood Urine Nitrite Ur Leukocyte Esterase Stool Occult Blood Blood Type Antibody Screen Crossmatch 04/18/23 04/18/23 04/18/23 06:19 06:19 06:19 WBC RBC Hgb Hct MCV MCH 21.6 L MCHC Cancelled 30.3 L RDW Cancelled 27.9 H Plt Count Cancelled MPV Immature Gran % (Auto) Neut % (Auto) Lymph % (Auto) [place] % (Auto) Eos % (Auto) Baso % (Auto) Lymph # (Auto) [place] # (Auto) Eos # (Auto) Baso # (Auto) Abs Immat Gran (auto) Absolute Neuts (auto) Absolute Nucleated RBC Nucleated RBC % (auto) PT INR Sodium Potassium Chloride Carbon Dioxide Anion Gap BUN Creatinine Estim Creat Clear Calc Estimated GFR Random Glucose Fasting Glucose Lactic Acid Calcium Magnesium Total Bilirubin Direct Bilirubin AST ALT Alkaline Phosphatase Total Protein Albumin Lipase Urine Color Urine Appearance Urine pH Ur Specific [place] Urine Protein Urine Glucose (UA) Urine Ketones Urine Blood Urine Nitrite Ur Leukocyte Esterase Stool Occult Blood Blood Type Antibody Screen Crossmatch 04/18/23 04/18/23 04/18/23 06:19 06:19 06:19 WBC RBC Hgb Hct MCV MCH MCHC RDW Plt Count 240 MPV Cancelled 8.8 L Immature Gran % (Auto) 0.3 Neut % (Auto) 66.0 Lymph % (Auto) 21.0 [place] % (Auto) 10.1 Eos % (Auto) 2.6 Baso % (Auto) 0.0 Lymph # (Auto) 1.3 [place] # (Auto) 0.6 Eos # (Auto) 0.2 Baso # (Auto) 0.0 Abs Immat Gran (auto) 0.02 Absolute Neuts (auto) 4.0 Absolute Nucleated RBC Cancelled 0.020 H Nucleated RBC % (auto) Cancelled PT INR Sodium Potassium Chloride Carbon Dioxide Anion Gap BUN Creatinine Estim Creat Clear Calc Estimated GFR Random Glucose Fasting Glucose Lactic Acid Calcium Magnesium Total Bilirubin Direct Bilirubin AST ALT Alkaline Phosphatase Total Protein Albumin Lipase Urine Color Urine Appearance Urine pH Ur Specific [place] Urine Protein Urine Glucose (UA) Urine Ketones Urine Blood Urine Nitrite Ur Leukocyte Esterase Stool Occult Blood Blood Type Antibody Screen Crossmatch 04/18/23 06:19 WBC RBC Hgb Hct MCV MCH MCHC RDW Plt Count MPV Immature Gran % (Auto) Neut % (Auto) Lymph % (Auto) [place] % (Auto) Eos % (Auto) Baso % (Auto) Lymph # (Auto) [place] # (Auto) Eos # (Auto) Baso # (Auto) Abs Immat Gran (auto) Absolute Neuts (auto) Absolute Nucleated RBC Nucleated RBC % (auto) 0.3 H PT 14.4 H INR 1.2 H Sodium 139 Potassium 2.8 L D Chloride 105 Carbon Dioxide 25 Anion Gap 12 BUN 7 L Creatinine 0.76 Estim Creat Clear Calc 61.6 Estimated GFR > 60 Random Glucose Fasting Glucose 105 H Lactic Acid Calcium 8.7 Magnesium Total Bilirubin 2.1 H Direct Bilirubin 0.6 H AST 17 ALT 13 Alkaline Phosphatase 80 Total Protein 6.0 L Albumin 3.7 Lipase Urine Color Urine Appearance Urine pH Ur Specific [place] Urine Protein Urine Glucose (UA) Urine Ketones Urine Blood Urine Nitrite Ur Leukocyte Esterase Stool Occult Blood Blood Type Antibody Screen Crossmatch Airway Mallampati Class: II TM Dist: >3cm Neck ROM: Full Loose/Missing/Broken Teeth: No (Denies broken, loose, missing teeth) Heart: RRR Lungs: CTAB Assessment and Plan Assessment Anesthesia Assessment: Anesthesia Plan Discussed and Chart Reviewed Final Anesthetic Review Family History of Problems with Anesthesia: No History of Problems with Anesthesia: No NPO: Yes ASA Class: III and Emergency Final Preanesthetic Review: No Changes in Pt Med Stat, Meds/Allgs Chart Reviewed, Consent Obtained/Reviewed and Anes Risks/Benef Reviewed Patient Risk: Intermediate Procedure Risk: Low Assessment/Block/Sedation in SS: Assess/Block/Sedation-SS Anesthetic Plan Anesthetic Plan: MAC: Disposition: Standard PACU
--- NOTE | 2023-04-18 15:44 | PM.OP ---
Brief Operative Note Date of Service: 04/18/23 Pre-op diagnosis: iron def anemia Post-op diagnosis: same Surgeon: Fernando Boyle MD Anesthesia: MAC Was an Pipe Straightener used for this Procedure?: No Estimated blood loss (mL): 2 Pathology: other Condition: stable Disposition: PACU
--- NOTE | 2023-04-18 15:45 | PM.EVENT ---
Event Note Date of Service: 04/18/23 Event Note: EGD/Colon erosive gastritis, biopsied hiatal hernia normal colonoscopy Rec: advance diet oral iron supplementation cotinue ppi no nsaids Time Spent With Patient Time: Total time managing care of this patient today ____ minutes.
[2023-04-18] MEDS: Potassium Chloride ER 20 MEQ TAB.ER.PRT 40 MEQ PO (20:53)
[2023-04-18] MEDS: 0.9 % Sodium Chloride Flush 3 ML SYRINGE IVFLUSH (20:54)
[2023-04-19] MEDS: Lactated Ringers 1,000 ML 100 ML IVCONT (00:15)
[2023-04-19 03:51] VITALS: BP 157/70; PULSE 87; RESP 20; TEMP 36.4; O2SAT 94
[2023-04-19] MEDS: Omeprazole 40 MG CAPSULE.DR PO (06:15)
[2023-04-19 06:48] LABS: MANUAL DIFF FLAG NO
[2023-04-19 06:54] LABS: Eosinophils Absolute Auto 0.2 X10*3/uL (0.0-0.4); Eosinophils Percent Auto 1.9 % (0-4); Hematocrit 30.9 % (37.0-47.0); Hemoglobin 9.2 g/dl (12.0-16.0); Imm Gran Abs Auto 0.03 X10*3/uL (0.00-0.03); Imm Gran Pct Auto 0.4 % (0.0-0.4); Lymphocytes Absolute Auto 1.9 X10*3/uL (1.2-4.9); Lymphocytes Percent Auto 24.8 % (20-40); Mean Corpuscular HGB Conc 29.8 g/dl (31.0-35.0); Mean Corpuscular Hemoglobin 21.1 pg (27.0-33.0); Mean Corpuscular Volume 70.7 fL (80.0-98.0); Mean Platelet Volume 8.9 fL (9.4-12.3); Monocytes Absolute Auto 0.8 X10*3/uL (0.1-1.2); Monocytes Percent Auto 10.7 % (2-11); Neutrophils Absolute Auto 4.9 x10*3/uL (2.0-8.3); Neutrophils Percent Auto 62.2 % (45-73); Platelet Count 243 X10*3/uL (160-400); Red Blood Count 4.37 X10*6/uL (4.20-5.50); Red Cell Distribution Width 28.7 % (11.0-16.0); White Blood Count 7.8 X10*3/uL (4.8-10.8)
[2023-04-19 07:04] VITALS: BP 170/68; PULSE 85; RESP 20; TEMP 36.7; O2SAT 96
[2023-04-19 07:08] LABS: Anion Gap 9 (12-20); Blood Urea Nitrogen 7 mg/dL (9-16); Calcium 8.8 mg/dL (8.4-10.2); Carbon Dioxide 27 mmol/L (22-29); Chloride 106 mmol/L (96-108); Creatinine Clr Calc Pharmacy 61.6; Estimated Glomerular Filt Rate > 60; Glucose Random 95 mg/dL (60-115); Potassium 3.3 mmol/L (3.3-5.1); Sodium 139 mmol/L (135-145)
--- NOTE | 2023-04-19 08:16 | P.PNGI_ITS ---
Subjective Subjective Date of Service: 04/19/23 Interval History: feels well no problems with bleeding Critical Care Time (minutes): 0 Physical Exam 2 Vital Signs: Vital Signs: Last Vital Signs Temp 98.1 F 04/19/23 07:04 Pulse 85 04/19/23 07:04 Resp 20 04/19/23 07:04 BP 170/68 H 04/19/23 07:04 Pulse Ox 96 04/19/23 07:04 O2 Del Method Room Air 04/19/23 07:04 O2 Flow Rate 6 04/18/23 15:45 BMI result Body Mass Index 29.9 GI: Other: abdomen is soft and nontender Objective Data Labs 04/19/23 06:30 04/19/23 06:30 Labs: Laboratory Results - last 24 hr 04/19/23 06:30 WBC 7.8 RBC 4.37 Hgb 9.2 L Hct 30.9 L MCV 70.7 L MCH 21.1 L MCHC 29.8 L RDW 28.7 H Plt Count 243 MPV 8.9 L Immature Gran % (Auto) 0.4 Neut % (Auto) 62.2 Lymph % (Auto) 24.8 [place] % (Auto) 10.7 Eos % (Auto) 1.9 Baso % (Auto) 0.0 Lymph # (Auto) 1.9 [place] # (Auto) 0.8 Eos # (Auto) 0.2 Baso # (Auto) 0.0 Abs Immat Gran (auto) 0.03 Absolute Neuts (auto) 4.9 Absolute Nucleated RBC 0.000 Nucleated RBC % (auto) 0.0 Sodium 139 Potassium 3.3 Chloride 106 Carbon Dioxide 27 Anion Gap 9 L BUN 7 L Creatinine 0.74 Estim Creat Clear Calc 61.6 Estimated GFR > 60 Random Glucose 95 Calcium 8.8 Microbiology Microbiology Results: Microbiology 04/16/23 15:38 Blood - Venous Blood Culture - Preliminary No growth after 48 hours. 04/16/23 15:37 Blood - Venous Blood Culture - Preliminary No growth after 48 hours. Procedures Date of Service Date of Service: 04/19/23 Progress Note: A&P Assessment and plan (1) Anemia: Status: Acute Assessment and Plan: I reviewed the egd/colonoscopy findings with Mrs Barrera. She is advised to continue a omeprazole and iron, and avoid nsaids/asa. My office will schedule followup and review pathology results with her. She is stable for discharge. Time Spent With Patient Time: Total time managing care of this patient today ____ minutes. Quality Stroke Does the patient have a stroke diagnosis?: No VTE Prior VTE?: No VTE Risk Level:: Medical - moderate - high VTE Device Contraindication: N/A - Device Ordered VTE Drug Contraindication: Treatment Not Indicated
[2023-04-19] MEDS: 0.9 % Sodium Chloride Flush 3 ML SYRINGE IVFLUSH (08:42)
[2023-04-19] MEDS: Ferrous Sulfate 324 MG TABLET.DR PO (08:42)
[2023-04-19] MEDS: amLODIPine Besylate 2.5 MG TABLET PO (08:42)
--- NOTE | 2023-04-19 08:42 | OP_ITS ---
DATE OF SERVICE: 04/18/2023 SURGEON: Fernando Boyle MD INDICATIONS: Iron deficiency anemia. PREOPERATIVE DIAGNOSIS: POSTOPERATIVE DIAGNOSIS: PROCEDURE PERFORMED: ESTIMATED BLOOD LOSS: COMPLICATIONS: ANESTHESIA: Monitored anesthesia care. ASSISTANTS: SPECIMENS: PROCEDURES PERFORMED: 1. Upper endoscopy with biopsy. 2. Colonoscopy to the terminal ileum. DESCRIPTION OF PROCEDURE: A history and physical performed the risks and benefits of the procedure were explained to the patient. Informed consent was obtained. The patient was placed in the left lateral decubitus position. The Olympus video gastroscope was introduced into the esophagus, stomach, and duodenum. Examination was performed. The scope was removed. She was repositioned for colonoscopy. A digital rectal exam was performed and was found to be normal. The Olympus pediatric video colonoscope was introduced into the rectum and advanced to the cecum. The cecum was identified by transillumination, palpation, and identification of ileocecal valve. Examination was performed. The scope was removed. She tolerated both procedures well and was returned to recovery room in stable condition. FINDINGS: Upper endoscopy: 1. Esophagus: The esophagus was normal. There was no esophagitis. There was 7 cm hiatal hernia. 2. Stomach: The stomach showed the hiatal hernia as described above. There were linear erosions at the level of the hiatal hernia, which were mild consistent with Anshu erosions. There was no bleeding. There were some patchy erosive changes in the antrum. Biopsies were obtained from the antrum. 3. Duodenum: The bulb and second portion were normal. No bleeding was identified. The 2nd portion biopsies were obtained. Colonoscopy: The terminal ileum was examined and appeared normal. The visualized colonic mucosa was normal. The quality of the prep was good. There was mild sigmoid diverticulosis. Retroflexed examination showed some internal hemorrhoids. There was no bleeding. IMPRESSION: 1. Erosive gastritis. 2. Hiatal hernia. 3. Normal colonoscopy. RECOMMENDATION: 1. Follow up the biopsy results. 2. Continue proton pump inhibitor. 3. Oral iron supplementation. 4. Advance diet. 5. The patient should avoid NSAIDs and aspirin to the extent possible. MD SCOT Abdullahi/SHUKRIL / [id number]
--- NOTE | 2023-04-19 11:10 | PM.DS ---
DS: Providers Provider Date of Service: 04/19/23 Date of admission: 04/16/23 16:40 Date of discharge: 04/19/23 Primary care physician: Ashleigh Grullon MD Consults: 04/16/23 16:40 Consult to Gastroenterology Routine Consulting Provider: Mukesh Bearden Reason for consultation: anemia Attending physician on discharge: Rashel Chiang Discharging clinician: Luna Tan DS: Diagnosis Discharge Diagnosis (1) Anemia: Status: Acute (2) Erosive gastritis: Status: Acute DS: Summary Hospital Course Hospital Course: From H&P on day of admission 82 year old presents to the ER from [facility] after lab evaluation of hemoglobin and hematocrit. She reports that she has been very fatigued, feeling weakness over the last several weeks. She did report that she had been taking in naproxen 2-4 tablets day over the last couple of weeks for back pain. She reports that she noted some dark colored stools but no bright red blood, hematemesis or epistaxis. She does not have any significant medical problems. And no previous history of anemia. She denied chest pain, shortness breath, nausea, vomiting, diarrhea, fever, chills, recent travel, sick contact, improperly cooked foods. Hemoglobin and hematocrit in the ER noted to be 4.7/17.2, MCV 59.3, iron 11. 2 units of packed red blood cells was ordered in the ER. Chest x-ray showed a pneumonia the patient has no fever, chills, cough, shortness of breath but she did receive a dose of Rocephin in the ER. She will be admitted for further management and treatment of acute anemia. Acute blood loss anemia/ GI bleed due to erosive gastritis patient reports taking naproxen 2-4 pills a day over the last several weeks back pain she received 3 units packed red blood cells, and HH has remained stable. Stool occult negative. she was started on PPI and seen by GI, she underwent EGD and colonoscopy which revealed Erosive gastritis. Colonoscopy was unremarkable. Recommended oral iron supplementation as well as oral proton pump inhibitor. Patient's diet was advanced and she is tolerating a regular diet at this time. Hypokalemia likely from poor nutritional status vs colon prep. resolved with replacement Elevated blood pressure reading Patient declines history of hypertension. was started on low dose Possible PNA, unspecified Noted on one view chest x-ray. no fever, leukocytosis, or any respiratory symptoms. No hypoxia. recommend outpatient follow up CXR Time Attestation Discharge coordination time: Greater than 30 minutes Quality: Safe Use of Opioids Does Pt have an Active Cancer Diagnosis on the Problem List?: No Quality: Stroke Does the patient have a stroke diagnosis?: No Physical Exam Vital Signs: Vital Signs: Last Vital Signs Temp 98.1 F 04/19/23 07:04 Pulse 85 04/19/23 07:04 Resp 20 04/19/23 07:04 BP 170/68 H 04/19/23 07:04 Pulse Ox 96 04/19/23 07:04 O2 Del Method Room Air 04/19/23 07:04 O2 Flow Rate 6 04/18/23 15:45 BMI result Body Mass Index 29.9 Const: General: cooperative, comfortable, no acute distress, alert and awake Nutritional Appearance: overweight Orientation/consciousness: patient oriented x3 Resp: Effort & Inspection: normal respiratory effort, able to speak in complete sentences, no respiratory distress and no use of accessory muscles Cardio: Rate: regular rate GI: Inspection: No distended Palpation (GI): Soft to palpation and nontender Neuro: General: patient oriented x3, moves all extremities and CN's II-XI intact bilaterally DS: Data Data Completed and Pending Pending studies at discharge: Pending at discharge 04/18/23 15:26 Surgical [PTH] Routine Labs on day of discharge: Laboratory Results - last 24 hr 04/19/23 06:30 WBC 7.8 RBC 4.37 Hgb 9.2 L Hct 30.9 L MCV 70.7 L MCH 21.1 L MCHC 29.8 L RDW 28.7 H Plt Count 243 MPV 8.9 L Immature Gran % (Auto) 0.4 Neut % (Auto) 62.2 Lymph % (Auto) 24.8 [place] % (Auto) 10.7 Eos % (Auto) 1.9 Baso % (Auto) 0.0 Lymph # (Auto) 1.9 [place] # (Auto) 0.8 Eos # (Auto) 0.2 Baso # (Auto) 0.0 Abs Immat Gran (auto) 0.03 Absolute Neuts (auto) 4.9 Absolute Nucleated RBC 0.000 Nucleated RBC % (auto) 0.0 Sodium 139 Potassium 3.3 Chloride 106 Carbon Dioxide 27 Anion Gap 9 L BUN 7 L Creatinine 0.74 Estim Creat Clear Calc 61.6 Estimated GFR > 60 Random Glucose 95 Calcium 8.8 Preliminary micro results at discharge 04/16/23 15:38 Blood Culture - Preliminary Blood - Venous No growth after 48 hours. 04/16/23 15:37 Blood Culture - Preliminary Blood - Venous No growth after 48 hours. Discharge Plan Discharge Anticipated Discharge Date/Time: 04/19/23 11:01 Patient Disposition: Home, Self-Care Discharge Diagnosis: anemia secondary to erosive gastritis high blood pressure Referrals: Ashleigh Grullon MD [Primary Care Provider] - 1 Week Fernando Boyle MD [Physician] - 2 Weeks Discharge Medications: New ferrous sulfate 324 mg (65 mg iron) Tablet,Delayed Release (Dr/Ec) 324 mg PO DAILY 30 Days Qty: 30 0RF omeprazole 40 mg Capsule,Delayed Release(Dr/Ec) 40 mg PO DAILY@0630 30 Days Qty: 30 0RF amlodipine 2.5 mg Tablet 2.5 mg PO DAILY 30 Days Qty: 30 0RF Protocol: Hold for SBP< HOLD for SBP < : 90 Continued meclizine 25 mg tablet 25 mg PO DAILY PRN (Reason: dizziness) Qty: 30 0RF Discharge Orders: Discharge Order (Routine); Ordered 04/19/23 Ordered By: Luna Tan Activity on Discharge: As tolerated Stand Alone Forms: Patient Portal Discharge page Care Plan Goals: see below Health Concerns: anemia due to erosive gastritis do not take NSAIDs such as ibuprofen, motrin, aspirin etc the GI office of Dr. Boyle should be in touch to discuss pathology results and schedule follow up start taking iron supplement daily as prescribed start taking prilosec daily as prescribed Blood pressure was also noted to be elevated, you were started on low dose blood pressure medication, Norvasc. this will likely need to be titrated up by your PCP, please call to schedule follow up appointment for blood pressure monitoring CXR on admission showed possible pneumonia, but you do not have a fever or white count to suggest infection or any respiratory symptoms. recommend outpatient follow up CXR Plan of Treatment: see discharge summary Assessment: see discharge summary
[2023-04-19 11:11] VITALS: BP 128/62; PULSE 96; RESP 20; TEMP 37.2; O2SAT 95
--- NOTE | 2023-04-19 11:36 | MHC.CM.PN ---
Pt is medically cleared for D/C home self-care. Pts daughter Yamel will crimp setter her up and bring her home.
--- NOTE | 2023-04-20 10:17 | HO.POSTANES ---
Post Anesthesia Evaluation Post Anesthesia Evaluation Date of Service: 04/19/23 Vital Signs: Patient seen on 04/19/23 at 1120am Vitals: 128/62, 96, 20, 99F, 95%RA Anesthesia: Monitored Mental Status: Awake Pain Control: Satisfactory Nausea/Vomiting: None Hydration: Adequate Anesthesia-Related Issues: No Anes. Related Issues
== END 2023-04-19 15:58 | disposition home or self-care (01) | DRG 377 ==
LOC: HO.ED 13:00 → HO.EDOVER 16:46 → HO.IMC 19:28
PROVIDERS: Internal Medicine; Internal Medicine Gastroenterology; Physician Assistant Medical; Admitting Provider Nurse Practitioner Acute Care; Emergency Provider Emergency Medicine; PCP Internal Medicine; Visit Provider Physician Assistant Medical
PROC: 0DB98ZX Excision of Duodenum, Via Natural or Artificial Opening Endoscopic, Diagnostic (ICD-10-PCS; principal; 2023-04-18 14:40)
DX: K25.4 Chronic or unspecified gastric ulcer with hemorrhage (principal); J18.9 Pneumonia, unspecified organism; D62 Acute posthemorrhagic anemia; J91.8 Pleural effusion in other conditions classified elsewhere; K44.9 Diaphragmatic hernia without obstruction or gangrene; K57.31 Diverticulosis of large intestine without perforation or abscess with bleeding; E87.6 Hypokalemia; R03.0 Elevated blood-pressure reading, without diagnosis of hypertension; Z88.0 Allergy status to penicillin; Z88.1 Allergy status to other antibiotic agents; Z98.1 Arthrodesis status; Z79.899 Other long term (current) drug therapy
CPT/HCPCS: 36415; 71046; 80048; 80053; 80076; 81003; 82272; 83540; 83605; 83690; 83735; 85014; 85018; 85025; 85027; 85610; 86850; 86900; 86901; 86923; 87040; 88305; 88342; 99285; J0696; J2704; J7120; P9016

== ENCOUNTER → 2023-04-16 16:40 | Outpatient (BNV) | payer MEDICARE, SELFPAY | PROVIDERS: Admitting Provider Nurse Practitioner Acute Care; Emergency Provider Emergency Medicine; PCP Internal Medicine; Visit Provider Nurse Practitioner Acute Care | DX: D64.9 Anemia, unspecified (principal); K29.60 Other gastritis without bleeding | CPT/HCPCS: 99223; 99232; 99239 ==

== ENCOUNTER 2023-04-24 13:42 | Outpatient (AMB) | payer MEDICARE, SELFPAY ==
--- NOTE | 2023-04-24 13:59 | HO.SPINEOV ---
Intake Intake Visit Reasons: spinal stenosis Intake Note: Ms. Barrera is here today c/o low back pain. MRI done @ [facility] [place]. Vrt Mechanic Required: No Allergies ampicillin [AMPICILLIN] Allergy (Unknown, Verified 04/16/23 08:29) UNKNOWN tetracycline [TETRACYCLINE] Allergy (Unknown, Verified 04/16/23 08:29) UNKNOWN Assessment & Plan Assessment & Plan (1) Scoliosis (and kyphoscoliosis), idiopathic: Code(s): M41.20 - Other idiopathic scoliosis, site unspecified Plan Dear Dr Wells, Thank you for referring Mrs Barrera to our office today. She is a very nice 82-year-old female who underwent an L4-5 fusion for spondylolisthesis in 2015 at [facility] for back and bilateral leg pain. She tells me she did great from those surgeries until about a year ago when she started to develop a nagging pain from her low back going down into her left anterior thigh into her knee. Occasionally will travel down to her medial anterior tibial region as well. She initially tried to treated with [id number] treatments such as Tylenol and nonsteroidal anti-inflammatories. She has been through physical therapy. Unfortunately the pain is only progressed. It has gotten to the point now when she stands and walks she can only walk for very short distances before she has to sit down. It is starting to bother her at night as well and she is having difficulty sleeping. She has also tried CBD drops with some modest success. She has no pain in the right leg. She underwent an MRI showing collapse of the foramen above the fusion at the L3-4 region and she was sent today to see us for an evaluation. PMH: Recently admitted to the hospital for GI bleed secondary to nonsteroidal anti-inflammatories which ultimately required 3 blood transfusions. Her hematocrit was as low as 17 but bounced up to 30 but at time she was discharged. She is currently having no dizziness chest pain shortness of breath etc.. She is otherwise very healthy, underwent a left hip replacement, left knee replacement, cataract surgery and remote history of an appendectomy. No history of heart disease, strokes, bleeding disorders Social hx: She does not smoke Medications: Taking omeprazole since her admission to the hospital, amlodipine, iron and meclizine Allergies: Ampicillin tetracycline Physical exam: Very nice elderly woman no acute distress, is able to stand up out of a chair on her own slowly, she has some mild iliopsoas strength loss which I think is pain related. From the quadriceps tibialis and gastrocnemius her strength is normal. Reflexes absent at the patella secondary to artificial knee. Imaging review: She has a lumbar MRI and x-rays done at [facility] showing evidence of fusion at L4-5 with no residual stenosis at this region. It should be noted that there is no interbody cage, just pedicle screws. She has a scoliotic curve of the upper lumbar region, specifically at L3-4 there is disc collapse on the left causing severe foraminal narrowing and compressing the left L3 nerve root as well as narrowing of the lateral recess compressing the left L4 nerve root. There are other degenerative changes above at the L1-2 level. Impression: This is a very nice 82-year-old female with history of previous L4-5 fusion about 8 years ago who did well from that surgery over the last year has developed a progressive L3/4 radiculopathy going down into her left anterior thigh into her knee and occasionally into her medial tibial region. The pain is worse when she stands walk and better when she sits. The pain is even started to bother her at night. She has failed conservative treatment in the form of physical therapy, nonsteroidal anti-inflammatories, Tylenol CBD and tincture of time. Dr. Shaw and I met with her discussed the option of an L3-4 oblique lumbar interbody fusion. This approach will give us access to a larger footprint cage which will help with her osteopenic bone. We have tentatively scheduled her for July 09. We did tell her which she would need to have a preoperative evaluation and have her blood levels checked. She was enquiring about tramadol for pain relief. This is certainly reasonable. Typically we would defer this to the primary care physician until the dates of surgery, but if it is too much trouble, we told her we can prescribe before her leading up to surgery. Pt was given risk and benefits of surgery including but not limited to infection, hematoma , nerve injury,durotomy, weakness,bowel/bladder injury, persistent pain, hardware failure, adjacent segment disease as well as the option to continue with conservative treatment and patient wishes to proceed with surgery. Pt is aware they should stop their motrin, aspirin 7 days prior to surgery. All questions were answered to the best of our ability. If there is anything about this patients medical history that we have overlooked or concerns you have about us proceeding with surgery we would appreciate any input you can offer. Thank you for allowing us to care for your patient. The total time spent with this visit with this patient was 45 minutes reviewing history, physical exam, lumbar imaging review, and implementation of treatment plan or further diagnostic testing Boo Shaw MD,PhD [facility] Coding Level of Care Code New Pt Level 4 (90805) Diagnoses Scoliosis (and kyphoscoliosis), idiopathic M41.20
== END 2023-04-24 15:03 | disposition home or self-care (01) ==
PROVIDERS: PCP Internal Medicine; Referring Provider Orthopaedic Surgery; Visit Provider Physician Assistant
DX: M41.20 Other idiopathic scoliosis, site unspecified (principal)
CPT/HCPCS: 99204

== ENCOUNTER → 2023-04-24 13:42 | Outpatient (BNVA) | payer MEDICARE, SELFPAY | PROVIDERS: PCP Internal Medicine; Referring Provider Orthopaedic Surgery; Visit Provider Physician Assistant | DX: M41.20 Other idiopathic scoliosis, site unspecified (principal) | CPT/HCPCS: 99202 ==

== ENCOUNTER 2023-05-03 06:59 | Outpatient (REF) | payer MEDICARE, SELFPAY ==
[2023-05-03 11:48] LABS: MANUAL DIFF FLAG NO
[2023-05-03 12:31] LABS: Basophils Percent Auto 0.2 % (0-2); Eosinophils Absolute Auto 0.3 X10*3/uL (0.0-0.4); Eosinophils Percent Auto 4.5 % (0-4); Hematocrit 34.6 % (37.0-47.0); Hemoglobin 10.6 g/dl (12.0-16.0); Imm Gran Abs Auto 0.02 X10*3/uL (0.00-0.03); Imm Gran Pct Auto 0.4 % (0.0-0.4); Lymphocytes Absolute Auto 2.5 X10*3/uL (1.2-4.9); Lymphocytes Percent Auto 45.1 % (20-40); Mean Corpuscular HGB Conc 30.6 g/dl (31.0-35.0); Mean Corpuscular Hemoglobin 22.9 pg (27.0-33.0); Mean Corpuscular Volume 74.9 fL (80.0-98.0); Mean Platelet Volume 9.5 fL (9.4-12.3); Monocytes Absolute Auto 0.5 X10*3/uL (0.1-1.2); Monocytes Percent Auto 9.7 % (2-11); Neutrophils Absolute Auto 2.3 x10*3/uL (2.0-8.3); Neutrophils Percent Auto 40.1 % (45-73); Red Blood Count 4.62 X10*6/uL (4.20-5.50); White Blood Count 5.6 X10*3/uL (4.8-10.8)
[2023-05-03 14:11] LABS: Platelet Count 619 X10*3/uL (160-400)
== END 2023-05-03 07:00 | disposition home or self-care (01) ==
LOC: HO.HMGCLDS 06:59
PROVIDERS: PCP Internal Medicine; Visit Provider Internal Medicine
DX: D64.9 Anemia, unspecified (principal)
CPT/HCPCS: 36415; 85025

== ENCOUNTER 2023-05-15 13:09 | Outpatient (AMB) | payer MEDICARE, SELFPAY ==
--- NOTE | 2023-05-15 13:23 | MHC.PC.OV ---
Vital Signs 05/15/23 13:25 Height 5 ft 4 in Weight 173 lb BMI 29.7 BP 110/62 Blood Pressure Location Rt brachial Position Sitting Pulse 89 Pulse Source Pulse Oximeter Pulse Oximetry (%) 96 Oxygen Delivery Method Room Air Intake Visit Reasons: Hospital follow up Intake Note: Pt is here today for a Hospital follow up visit from [facility]. Allergies ampicillin [AMPICILLIN] Allergy (Unknown, Verified 05/15/23 13:29) swelling in face and itchy throat tetracycline [TETRACYCLINE] Allergy (Unknown, Verified 05/15/23 13:29) itchy throat swelling in face Medication List - Last Reconciled 05/15/23 by Ashleigh Grullon MD amlodipine 2.5 mg PO DAILY 30 days ferrous sulfate 324 mg PO DAILY 30 days omeprazole 40 mg PO DAILY@0630 30 days Tobacco use date assessed: 05/15/23 Fall risk assessment: No Falls in past year Last assessed Fall Risk: 05/15/23 Dental Screening Dental Screen Date: 05/15/23 Did you have a dental visit in the last 12 months?: Yes Did you have a dental problem in the last 6 months where you did not have access to dental care?: No Was dental information given to patient?: Patient has dentist HPI Hospital follow up HPI Details Patient presents for follow-up of hospitalization for acute iron deficiency anemia.. Patient underwent endoscopy and colonoscopy which showed only erosive gastritis but no acute source of the bleeding. patient was transfused 3 units of PRBC. She stopped taking naproxen. Patient denies hematochezia melena abdominal pain and feels stronger. She is planning to have a lower back surgery in July. [facility] Medical History FH: total knee replacement Surgical History History of appendectomy H/O left knee surgery H/O cataract removal with insertion of prosthetic lens History of lumbar fusion History of total right hip replacement (02/16/22) Family History Father No problems noted. Mother Breast cancer Social History Household Members: Family Household Members Other:: , lives with sister, 2 daughters, 3 grandchildren Housing: [facility] Do you presently have visiting nurse or other home services: No Patient Tobacco Use Status: Never used Tobacco e-Cigarette/Vaping Use: Never Used Advance Directives Date on File: 10/16/22 service: No Current occupational status: retired Cognitive needs: No Hearing needs: Yes Vision needs: No Questionnaire Thrive Questionnaire Date Thrive assessed: 04/17/23 AUDIT C Alcohol Use Questionnaire (AUDIT-C) 1. How often do you have a drink containing alcohol?: Monthly or less 2. How many drinks containing alcohol do you have on a typical day when you are drinking?: 1 or 2 3. How often do you have six or more drinks on one occasion?: Never Total Score: 1 NAILA-7 AMB Questionnaire NAILA-7 Date NAILA - 7 assessed: 01/26/22 Source: Developed by Drs. Mukesh Rice, Sravani Ramirez, Martin Padgett and colleagues, with an educational faisal from [employer]. Review of Systems Const All systems reviewed & are unremarkable except as noted in HPI and below Reports no additional complaints Eyes Reports no additional complaints ENT Reports no additional complaints Card Reports no additional complaints Resp Reports no additional complaints GI Reports no additional complaints Reports no additional complaints Physical exam (Primary Care) Vital Signs: Last Vital Signs Pulse 89 05/15/23 13:25 BP 110/62 05/15/23 13:25 Pulse Ox 96 05/15/23 13:25 Oxygen Delivery Method Room Air 05/15/23 13:25 BMI result Body Mass Index 29.7 Tobacco/Smoking Status: Tobacco use Status Tobacco use date assessed 05/15/23 05/15/23 13:34 Patient Tobacco Use Status Never used Tobacco 05/15/23 13:34 e-Cigarette/Vaping Use Never Used 05/15/23 13:27 Thrive Assessment: Date of Thrive Assessment Date Thrive assessed 04/17/23 05/15/23 13:27 Const General: no acute distress HENMT Head: Yes normal to inspection Mouth: Normal oral and palatal mucosa present Neck Neck: Yes supple Resp Effort & Inspection: normal respiratory effort Auscultation: clear to auscultation bilaterally Cardio Rhythm: regular rhythm Heart sounds: S1 normal heart sound present and S2 normal heart sound present Assessment and Plan Assessment & Plan (1) HTN (hypertension): Code(s): I10 - Essential (primary) hypertension Plan: Continue Amlodipine (2) Hyperglycemia: Code(s): R73.9 - Hyperglycemia, unspecified Plan: ADA diet, check labs in 1 month (3) Anemia: Code(s): D64.9 - Anemia, unspecified Plan: cont Iron, check CBC IN 1 MONTH (4) Lumbar stenosis: Code(s): M48.061 - Spinal stenosis, lumbar region without neurogenic claudication Plan: F/U with ortho Orders: Orders Comprehensive Met. Panel 1 Month I10 - Essential (primary) hypertension, R73.9 - Hyperglycemia, unspecified IRON PROFILE 1 Month I10 - Essential (primary) hypertension, R73.9 - Hyperglycemia, unspecified Complete Blood Count Auto Diff 1 Month I10 - Essential (primary) hypertension, R73.9 - Hyperglycemia, unspecified Lipid Panel 1 Month I10 - Essential (primary) hypertension, R73.9 - Hyperglycemia, unspecified Basic Metabolic Panel Today I10 - Essential (primary) hypertension, R73.9 - Hyperglycemia, unspecified Medications: Refilled omeprazole 40 mg PO DAILY@0630 30 caps 4RF 30 days amlodipine 2.5 mg PO DAILY 30 tabs 4RF 30 days ferrous sulfate 324 mg PO DAILY 30 tabs 1RF 30 days Coding Level of Care Code Est Pt Level 4 (45731) Diagnoses HTN (hypertension) I10 Hyperglycemia R73.9 Anemia D64.9 Lumbar stenosis M48.061
[2023-05-15 13:25] VITALS: BP 110/62; PULSE 89; O2SAT 96; BMI 29.7
== END 2023-05-15 15:30 | disposition home or self-care (01) ==
PROVIDERS: PCP Internal Medicine; Visit Provider Internal Medicine
DX: I10 Essential (primary) hypertension (principal); R73.9 Hyperglycemia, unspecified; D64.9 Anemia, unspecified; M48.061 Spinal stenosis, lumbar region without neurogenic claudication
CPT/HCPCS: 99214

== ENCOUNTER 2023-05-15 14:30 | Outpatient (REF) | payer MEDICARE, SELFPAY ==
[2023-05-15 16:31] LABS: Anion Gap 11 (12-20); Blood Urea Nitrogen 16 mg/dL (9-16); Carbon Dioxide 28 mmol/L (22-29); Chloride 103 mmol/L (96-108); Estimated Glomerular Filt Rate > 60; Glucose Random 109 mg/dL (60-115); Potassium 3.4 mmol/L (3.3-5.1); Sodium 139 mmol/L (135-145)
== END 2023-05-15 14:31 | disposition home or self-care (01) ==
LOC: HO.HMGCLDS 14:30
PROVIDERS: PCP Internal Medicine; Visit Provider Internal Medicine
DX: I10 Essential (primary) hypertension (principal); R73.9 Hyperglycemia, unspecified
CPT/HCPCS: 36415; 80048

== ENCOUNTER 2023-06-08 08:26 | Outpatient (REF) | payer MEDICARE, SELFPAY ==
[2023-06-08 12:27] LABS: Alanine Aminotransferase 10 U/L (0-31); Albumin Level 4.2 g/dL (3.5-5.0); Alkaline Phosphatase 78 U/L (39-117); Anion Gap 11 (12-20); Aspartate Amino Transferase 16 U/L (5-31); Bilirubin Total 0.7 mg/dL (0.0-1.0); Blood Urea Nitrogen 14 mg/dL (9-16); Calcium 9.7 mg/dL (8.4-10.2); Carbon Dioxide 31 mmol/L (22-29); Chloride 105 mmol/L (96-108); Cholesterol 206 mg/dL (<200); Estimated Glomerular Filt Rate > 60; Glucose Random 90 mg/dL (60-115); HDL Cholesterol 45 mg/dL (>40); Iron 65 mcg/dL (30-160); LDL Cholesterol Calculated 142 mg/dL (<100); Percent Iron Saturation 19 % (15-50); Potassium 3.3 mmol/L (3.3-5.1); Sodium 144 mmol/L (135-145); Total Iron Binding Capacity 348 mcg/dL (228-428); Total Protein 6.8 g/dL (6.5-8.0); Triglycerides 97 mg/dL (<150); Unsaturated Iron Binding 283 ug/dL
== END 2023-06-08 08:27 | disposition home or self-care (01) ==
LOC: HO.HMGCLDS 08:26
PROVIDERS: PCP Internal Medicine; Visit Provider Internal Medicine
DX: R73.9 Hyperglycemia, unspecified (principal); I10 Essential (primary) hypertension
CPT/HCPCS: 36415; 80053; 80061; 83540; 85025

== ENCOUNTER 2023-06-08 09:10 | Outpatient (REF) | payer MEDICARE, SELFPAY ==
--- NOTE | 2023-06-08 12:46 | MHC.AU.HA3 ---
Hearing Instrument Follow-Up- Binaural Date of Visit: 06/08/23 Right Ear: Taj, Model, Color, Serial Number: Nicole Solomon [id number] SN: [id number] Color: Stephania Business Continuity Consultant Repair Warranty: 09/15/2021 Business Continuity Consultant Loss and Damage Warranty: 09/15/2021 [facility] Service Plan: Battery Size: Rechargeable Physician/Slim Tube: Size 1 M Earmold/Dome/CShell/SlimTip:Small vented dome Type of Wax Guard: Cerushield Dispensed By: [facility] Date of Fittin06/26/2018 Left Ear: Taj, Model, Color, Serial Number: Nicole Solomon [id number] SN: [id number] Color: Stephania Business Continuity Consultant Repair Warranty: 09/15/2021 Business Continuity Consultant Loss and Damage Warranty: 09/15/2021 [facility] Service Plan: Battery Size: Rechargeable Physician/Slim Tube: Size 1 M Earmold/Dome/CShell/SlimTip: Small vented dome Type of Wax Guard: Cerushield Dispensed By: [facility] Date of Fittin06/26/2018 Follow-Up Summary: Crystal is here for an updated audiogram and hearing aid adjustment. She reports intermittent static with her hearing aids as well as overall lack of clarity. She also finds the planes flying over her con[place] bothersome but notes they are bothersome without the hearing aids as well. Cleaned aids, listening check OK. Updated Target to reflect closed domes (was set to open) and recalculated targets, changed to NAL-NL2 and increased mids. Re-ran feedback communication and outreach manager. Decreased MPO. Juanita reported improved sound quality in the office. Discussed communication strategies to suggest to her sister who she has a very difficult time communicating with at home--suggested SAMIRA as a reference. Follow up as needed. Recommendations: Recommendations: Hearing instrument maintenance in 6 months, or sooner if needed. Patient will call if problems persist. Diagnosis Code(s): Primary Diagnosis: H90.3 Bilateral Sensorineural Hearing Loss Signature: Provider: Kyleigh Sandoval, [facility]
== END 2023-06-08 09:11 | disposition home or self-care (01) ==
LOC: HO.SH 09:10
PROVIDERS: Visit Provider Internal Medicine
DX: Z01.118 Encounter for examination of ears and hearing with other abnormal findings (principal); H90.3 Sensorineural hearing loss, bilateral
CPT/HCPCS: 92552; 92556; 92557

== ENCOUNTER 2023-06-08 13:07 | Outpatient (REF) | payer SELFPAY | END 2023-06-08 13:08 | disposition home or self-care (01) | LOC: HO.HAP 13:07 | PROVIDERS: Visit Provider Internal Medicine | DX: Z46.1 Encounter for fitting and adjustment of hearing aid (principal) | CPT/HCPCS: 92592 ==

== ENCOUNTER 2023-06-15 13:41 | Outpatient (AMB) | payer MEDICARE, SELFPAY ==
[2023-06-15 14:08] VITALS: BP 130/66; PULSE 85; O2SAT 96; BMI 29.3
--- NOTE | 2023-06-15 14:08 | MHC.PC.OV ---
Vital Signs 06/15/23 14:08 Height 5 ft 4 in Weight 171 lb BMI 29.3 BP 130/66 Blood Pressure Location Rt brachial Position Sitting Pulse 85 Pulse Source Pulse Oximeter Pulse Oximetry (%) 96 Oxygen Delivery Method Room Air Intake Visit Reasons: 5 week fu Intake Note: Pt is here today for 5 weeks follow up visit on labs. Allergies ampicillin [AMPICILLIN] Allergy (Unknown, Verified 06/15/23 14:13) swelling in face and itchy throat tetracycline [TETRACYCLINE] Allergy (Unknown, Verified 06/15/23 14:13) itchy throat swelling in face Medication List - Last Reconciled 06/15/23 by Ashleigh Grullon MD amlodipine 2.5 mg PO DAILY 30 days ferrous sulfate 324 mg PO DAILY 30 days omeprazole 40 mg PO DAILY@0630 30 days Tobacco use date assessed: 06/15/23 Fall risk assessment: No Falls in past year Last assessed Fall Risk: 06/15/23 Dental Screening Dental Screen Date: 06/15/23 Did you have a dental visit in the last 12 months?: Yes Did you have a dental problem in the last 6 months where you did not have access to dental care?: No Was dental information given to patient?: Patient has dentist HPI 5 week fu HPI Details Patient presents for the follow-up of hypertension and episode of acute iron deficiency anemia. Patient has a lumbar spine surgery planned in 1 month. She denies chest pain shortness for breath palpitations and feels stronger. She is ambulating with a walker and complains of chronic lower back pain but has not been taking naproxen. [facility] Medical History (Updated 06/15/23 @ 14:55 by Ashleigh Grullon MD) FH: total knee replacement Surgical History History of appendectomy H/O left knee surgery H/O cataract removal with insertion of prosthetic lens History of lumbar fusion History of total right hip replacement (02/16/22) Family History Father No problems noted. Mother Breast cancer Social History Household Members: Family Household Members Other:: , lives with sister, 2 daughters, 3 grandchildren Housing: Condominium Do you presently have visiting nurse or other home services: No Patient Tobacco Use Status: Never used Tobacco e-Cigarette/Vaping Use: Never Used Advance Directives Date on File: 10/16/22 service: No Current occupational status: retired Cognitive needs: No Hearing needs: Yes Vision needs: No Questionnaire PHQ-9 Over the last 2 weeks, how often have you been bothered by any of the following problems? 1. Little interest or pleasure in doing things: not at all 2. Feeling down, depressed, or hopeless: not at all 3. Trouble falling or staying asleep, or sleeping too much: not at all 4. Feeling tired or having little energy: several days 5. Poor appetite or overeating: not at all 6. Feeling bad about yourself - or that you are a failure or have let yourself or your family down: not at all 7. Trouble concentrating on things, such as reading the newspaper or watching television: not at all 8. Moving or speaking so slowly that other people could have noticed. Or the opposite - being so fidgety or restless that you have been moving around a lot more than usual: not at all 9. Thoughts that you would be better off or of hurting yourself in some way: not at all Total score: 1 Depression Screening Interpretation: Negative Depression Screening Done: Yes Source: Developed by Drs. Mukesh Rice, Sravani Ramirez, Martin Padgett and colleagues, with an educational faisal from [employer]. Thrive Questionnaire Date Thrive assessed: 06/15/23 I am a: Patient What is your living situation today?: I have a steady place to live Within the past 12 months, did the food you bought not last and you didn't have the money to get more?: Never true Within the past 12 months, did you worry whether your food would run out before you got money to buy more?: Never true Do you have trouble paying for medicines?: No Do you have trouble getting transportation to medical appointments?: No Do you have trouble paying your heating and electricity bill?: No Do you have trouble taking care of your child, family member or friend?: No Do you have trouble with day-to-day activities such as bathing, preparing meals, shopping, managing finances, etc.?: No Are you currently unemployed and looking for a job?: No Are you interested in more education?: No Please select the resources that you would like help with: None Currently or been in a relationship where the following occur: no concerns reported AUDIT C Alcohol Use Questionnaire (AUDIT-C) 1. How often do you have a drink containing alcohol?: Never 3. How often do you have six or more drinks on one occasion?: Never Total Score: 0 NAILA-7 AMB Questionnaire NAILA-7 Date NAILA - 7 assessed: 06/15/23 Feeling nervous, anxious, or on edge: 0 = Not at all Not being able to stop or control worryin = Not at all Worrying too much about different things: 0 = Not at all Trouble relaxin = Not at all Being so restless that it is hard to sit still: 0 = Not at all Becoming easily annoyed or irritable: 0 = Not at all Feeling afraid as if something awful might happen: 0 = Not at all Total NAILA-7 score (0-4 normal; 5-9 mild; 10-14 moderate; 15-21 severe): 0 Source: Developed by Drs. Mukesh Rice, Sravani Ramirez, Martin Padgett and colleagues, with an educational faisal from [employer]. NAILA-7 Assessment Billing NAILA-7 Assessment Tool: NAILA-7 Assessment 02096 Review of Systems Const All systems reviewed & are unremarkable except as noted in HPI and below Reports no additional complaints Eyes Reports no additional complaints ENT Reports no additional complaints Card Reports no additional complaints Resp Reports no additional complaints GI Reports no additional complaints Reports no additional complaints Physical exam (Primary Care) Vital Signs: Last Vital Signs Pulse 85 06/15/23 14:08 BP 130/66 06/15/23 14:08 Pulse Ox 96 06/15/23 14:08 Oxygen Delivery Method Room Air 06/15/23 14:08 BMI result Body Mass Index 29.3 Tobacco/Smoking Status: Tobacco use Status Tobacco use date assessed 06/15/23 06/15/23 14:14 Patient Tobacco Use Status Never used Tobacco 06/15/23 14:14 e-Cigarette/Vaping Use Never Used 06/15/23 14:14 PHQ-9: PHQ-9 Score PHQ-9: Total score 1 06/15/23 14:16 Depression Screening Interpretation: Negative Thrive Assessment: Date of Thrive Assessment Date Thrive assessed 06/15/23 06/15/23 14:16 Currently or been in a relationship where the following occur: no concerns reported Const General: no acute distress HENMT Head: Yes normal to inspection Face and sinus: Yes normal facial exam Throat: Yes posterior oropharynx normal Eyes General: appearance normal, both eyes and all related structures Neck Neck: Yes supple Resp Effort & Inspection: normal respiratory effort Auscultation: clear to auscultation bilaterally Cardio Rhythm: regular rhythm Heart sounds: S1 normal heart sound present and S2 normal heart sound present Assessment and Plan Assessment & Plan (1) Anemia: Comment: Iron def, GI w/u inpt EGD and colonoscopy no acute bleed 05/26, on oral Iron suppl Code(s): D64.9 - Anemia, unspecified Plan: Continue iron supplement, recheck CBC and iron count in 2 months (2) Erosive gastritis: Comment: EDG 05/26, secondary to NSAIDs, on PPI Code(s): K29.60 - Other gastritis without bleeding Plan: Continue PPI avoid NSAID (3) Lumbar stenosis: Code(s): M48.061 - Spinal stenosis, lumbar region without neurogenic claudication Plan: Patient will have lumbar stenosis surgery in 1 month and is medically cleared (4) HTN (hypertension): Code(s): I10 - Essential (primary) hypertension Plan: Continue Amlodipine Orders: Orders Complete Blood Count Auto Diff 2 Months D64.9 - Anemia, unspecified, I10 - Essential (primary) hypertension IRON PROFILE 2 Months D64.9 - Anemia, unspecified, I10 - Essential (primary) hypertension Comprehensive [place]. Panel Fast 2 Months D64.9 - Anemia, unspecified, I10 - Essential (primary) hypertension Coding Level of Care Code Est Pt Level 4 (40818) Diagnoses Anemia D64.9 Erosive gastritis K29.60 Lumbar stenosis M48.061 HTN (hypertension) I10 Additional Codes NIALA-7 Assessment Billing - NAILA-7 Assessment Tool: NAILA-7 Assessment 64221 ([id number])
== END 2023-06-15 14:58 | disposition home or self-care (01) ==
PROVIDERS: PCP Internal Medicine; Visit Provider Internal Medicine
DX: D64.9 Anemia, unspecified (principal); K29.60 Other gastritis without bleeding; M48.061 Spinal stenosis, lumbar region without neurogenic claudication; I10 Essential (primary) hypertension
CPT/HCPCS: 99214

== ENCOUNTER → 2023-07-09 07:37 | Outpatient (BNV) | payer MEDICARE, SELFPAY | PROVIDERS: Admitting Provider Neurological Surgery; PCP Internal Medicine; Visit Provider Internal Medicine | DX: Z01.818 Encounter for other preprocedural examination (principal); M41.20 Other idiopathic scoliosis, site unspecified | CPT/HCPCS: 93010 ==

== ENCOUNTER 2023-07-18 08:27 | Inpatient (IN) | payer MEDICARE, SELFPAY ==
[2023-06-25 11:57] VITALS: BP 179/83; PULSE 91; RESP 18; O2SAT 98; BMI 29.2
--- NOTE | 2023-06-25 12:16 | P.CONAN_ITS ---
Documented by User: Yamel Anthony NP 07/17/23 08:24 HPI - Anesthesia Eval Consult details Narrative: 83yo F for L3-4 Oblique Lumbar Interbody Fusion, 07/18/23 PCP cleared No recent illness No CP/SOB. Very limited activity d/t back pain [place]20[place] [facility] [place]. Started on omeprazole. BP up at PAT. Reports home BP's wnl. Will record and bring DOS PMFSH Active Problems Active Problems: All Active Problems (Updated 06/22/23 @ 11:43 by Leah Lopez RN) Scoliosis (and kyphoscoliosis), idiopathic (Acute) Erosive gastritis (Acute) Anemia (Acute) Poor balance (Acute) Vertigo (Acute) Lumbar stenosis (Acute) Left hip pain (Acute) Low back pain (Acute) Right hip pain (Acute) Annual physical exam (Acute) Actinic keratosis (Acute) Lower back pain (Acute) Increased urinary frequency (Acute) S/P total left hip arthroplasty (Acute) History of laminectomy (Acute) Vitamin D deficiency (Acute) Hyperglycemia (Acute) HTN (hypertension) (Acute) Hyperlipidemia (Acute) Hx of mammogram (Acute) Osteoarthritis of left hip (Acute) Total knee replacement status (Acute) Past Medical History Medical History (Updated 06/25/23 @ 12:49 by Leah Lopez RN) [place] (hard of hearing) GI bleed due to NSAIDs Osteoarthritis Elevated cholesterol Hyperglycemia HTN (hypertension) Lumbar stenosis Vertigo Gastritis Scoliosis (and kyphoscoliosis), idiopathic Anemia Family History Family History Father No problems noted. Mother Breast cancer Family history of problems with anesthesia: No Surgical History Surgical History Hx of tonsillectomy History of total left knee replacement History of esophagogastroduodenoscopy (EGD) H/O colonoscopy History of lumbar laminectomy History of total left hip arthroplasty History of appendectomy H/O cataract removal with insertion of prosthetic lens History of Problems with Anesthesia: No Social History Social History Household Members: Family Household Members Other:: sister Housing: Condominium Are you a primary career advisor to a significant other at home: No Do you presently have visiting nurse or other home services: No Patient Tobacco Use Status: Never used Tobacco e-Cigarette/Vaping Use: Never Used Use of substances other than those prescribed or required for medical reasons: Yes Substance Use Type Other:: CBD drops BID daily Substance Use Frequency: Daily Have you been hit, kicked, punched, or otherwise hurt by someone within the past year? If so, by whom?: No Are you DNR?: Yes Advance Directives: Yes Advance Directives Information Provided: Yes Advance Directives on File: Yes Advance Directives Date on File: 10/16/22 Recently lost weight without trying: No Eating poorly because of decreased appetite: No Nutrition Risks: Surgical patient >75years Poor oral hygiene: No service: No Current occupational status: retired Cognitive needs: No Hearing needs: Yes Vision needs: No Meds Allergies Allergy/AdvReac Type Severity Reaction Status Date / Time ampicillin [AMPICILLIN] Allergy Severe swelling Verified 06/22/23 11:35 in face/itchy throat tetracycline [TETRACYCLINE] Allergy Severe itchy Verified 06/22/23 11:35 throat/swelling in face Home Medications Medication Instructions Recorded Confirmed Last Taken Type amlodipine 2.5 mg tablet 2.5 mg PO QAM 06/25/23 06/25/23 07/18/23 History ferrous sulfate 325 mg (65 mg 325 mg PO DAILY 06/28/23 07/15/23 History iron) tablet Exam Height,Weight and Vital Signs: Height 5 ft 4 in Weight 77.111 kg Last Vital Signs Pulse 91 06/25/23 11:57 Resp 18 06/25/23 11:57 BP 179/83 H 06/25/23 11:57 Pulse Ox 98 06/25/23 11:57 O2 Del Method Room Air 06/25/23 11:57 Pertinent Lab Results Pertinent Lab Results: Laboratory Tests 06/08/23 08:38 WBC 5.0 Hgb 11.9 L Hct 37.2 Plt Count 353 D Sodium 144 Potassium 3.3 Chloride 105 Carbon Dioxide 31 H BUN 14 Creatinine 0.83 Lab Results 07/09/23 Range/Units 08:03 Blood Type AB Positive Antibody Screen NEGATIVE Narrative Narrative: EKG 07/2022 Vent. Rate : 080 BPM Atrial Rate : 080 BPM P-R Int : 162 ms QRS Dur : 090 ms QT Int : 402 ms P-R-T Axes : 080 000 027 degrees QTc Int : 463 ms Normal sinus rhythm Normal ECG When compared with ECG of 12-MAR-2020 15:44, No significant change was found Airway Mallampati Class: II TM Dist: >3cm Neck ROM: Full Loose/Missing/Broken Teeth: Yes (#24 pulled, lower right molar implant, lower left molar crowned) Heart: RRR Lungs: CTAB Assessment and Plan Assessment Anesthesia Assessment: Anesthesia Plan Discussed and PAT Visit Final Anesthetic Review Family History of Problems with Anesthesia: No History of Problems with Anesthesia: No Documented by User: Matthew Vergara MD 07/18/23 10:00 [facility] Past Medical History Medical History (Updated 06/25/23 @ 12:49 by Leah Lopez RN) [place] (hard of hearing) GI bleed due to NSAIDs Osteoarthritis Elevated cholesterol Hyperglycemia HTN (hypertension) Lumbar stenosis Vertigo Gastritis Scoliosis (and kyphoscoliosis), idiopathic Anemia Family History Family History Father No problems noted. Mother Breast cancer Surgical History Surgical History Hx of tonsillectomy History of total left knee replacement History of esophagogastroduodenoscopy (EGD) H/O colonoscopy History of lumbar laminectomy History of total left hip arthroplasty History of appendectomy H/O cataract removal with insertion of prosthetic lens Social History Social History Household Members: Family Household Members Other:: sister Housing: Condominium Are you a primary career advisor to a significant other at home: No Do you presently have visiting nurse or other home services: No Patient Tobacco Use Status: Never used Tobacco e-Cigarette/Vaping Use: Never Used Use of substances other than those prescribed or required for medical reasons: Yes Substance Use Type Other:: CBD drops BID daily Substance Use Frequency: Daily Have you been hit, kicked, punched, or otherwise hurt by someone within the past year? If so, by whom?: No Are you DNR?: Yes Advance Directives: Yes Advance Directives Information Provided: Yes Advance Directives on File: Yes Advance Directives Date on File: 10/16/22 Recently lost weight without trying: No Eating poorly because of decreased appetite: No Nutrition Risks: Surgical patient >75years Poor oral hygiene: No service: No Current occupational status: retired Cognitive needs: No Hearing needs: Yes Vision needs: No Meds Allergies Allergy/AdvReac Type Severity Reaction Status Date / Time ampicillin [AMPICILLIN] Allergy Severe swelling Verified 06/22/23 11:35 in face/itchy throat tetracycline [TETRACYCLINE] Allergy Severe itchy Verified 06/22/23 11:35 throat/swelling in face Home Medications Medication Instructions Recorded Confirmed Last Taken Type amlodipine 2.5 mg tablet 2.5 mg PO QAM 06/25/23 06/25/23 07/18/23 History ferrous sulfate 325 mg (65 mg 325 mg PO DAILY 06/28/23 07/15/23 History iron) tablet Exam Airway Neck ROM: Full Assessment and Plan Assessment Anesthesia Assessment: Anesthesia Plan Discussed and Chart Reviewed Final Anesthetic Review NPO: Yes ASA Class: II Final Preanesthetic Review: No Changes in Pt Med Stat, Meds/Allgs Chart Reviewed, Consent Obtained/Reviewed and Anes Risks/Benef Reviewed Patient Risk: Intermediate Procedure Risk: Intermediate Anesthetic Plan Anesthetic Plan: GA Disposition: Standard PACU
--- NOTE | 2023-07-09 07:37 | ECG_ITS ---
Test Reason : pre op Blood Pressure : / mmHG Vent. Rate : 080 BPM Atrial Rate : 080 BPM P-R Int : 162 ms QRS Dur : 090 ms QT Int : 402 ms P-R-T Axes : 080 000 027 degrees QTc Int : 463 ms Normal sinus rhythm Normal ECG When compared with ECG of 12-MAR-2020 15:44, No significant change was found Referred By: Yamel Anthony Electronically Signed By:KORY ALONSO
[2023-07-18] VITALS (13 sets, daily range): BP systolic 123–173; BP diastolic 61–84; PULSE 73–78; RESP 15–20; TEMP 36.1–36.6; O2SAT 95–99; BMI 29.9
--- NOTE | ~2023-07-18 | FL_ITS ---
EXAMINATION: XR FLUOROSCOPY WITH IMAGES CLINICAL INFORMATION: Fluoroscopic guidance for lumbar spine fusion at the level of L3-L4 COMPARISON: Surgical images from 04/18/2023 TECHNIQUE: Fluoroscopy Supervised By: Dr. López Walker Fluoroscopy Time: 1 minute 27 seconds. Cumulative Dose: 59.01 mGy. DAP: 18.26 Gycm2. Images: 4. FINDINGS: Procedure performed laparoscopically with C-arm camera images during evaluation and revealed placement of pedicle screws at the level of L4-L5. Pedicles screws are well aligned. There is disc spacer seen at the level of L3-L4.
--- NOTE | 2023-07-18 07:01 | P.HPSUR_ITS ---
Pre-Procedural Eval Section A - 24 Hr Update-Section A only Date of Service: 07/18/23 Section B - Complete if H&P > 30 days Chief Complaint: Other idiopathic scoliosis, site unspecified Allergies: Allergies Allergy/AdvReac Type Severity Reaction Status Date / Time ampicillin [AMPICILLIN] Allergy Severe swelling Verified 06/22/23 11:35 in face/itchy throat tetracycline [TETRACYCLINE] Allergy Severe itchy Verified 06/22/23 11:35 throat/swelling in face Review of Systems Sugical H&P ROS: Negative: Constitution, Cardiovascular, Respiratory, Neurol ogical, Psychiatric, Hem-Onc, Allergic/Immunologic, Gastrointestinal, Genitourinary, Musculoskeletal, Integumentary, Endocrine and Eyes/Ears/Nose/Throat Exam Surgical H&P Exam: Not Evaluated: HEENT, Not Evaluated: Heart, Not Evaluated: Lungs, Not Evaluated: Extremities, Not Evaluated: Abdomen, Not Evaluated: Skin and Not Evaluated: Neurological Plan I have reviewed the history and physical and performed a pertinent physical examination on my patient. No changes have occurred unless specified. Plan remains the same, L3-4 OLIF Time Spent With Patient Time: Total time managing care of this patient today __8__ minutes.
[2023-07-18] MEDS: Lactated Ringers 1,000 ML 100 ML IVCONT (09:23)
[2023-07-18] MEDS: methocarbamoL 750 MG TABLET PO (09:24)
[2023-07-18] MEDS: Gabapentin 300 MG CAPSULE PO ×2 (09:24→20:09)
[2023-07-18] MEDS: vancomycin HCL 1,000 MG in 0.9 % Sodium Chloride 250 ML 270 MG IV ×2 (09:28→20:09)
--- NOTE | 2023-07-18 14:43 | PHA.MEDREC ---
Pharmacy Consult ? Medication Reconciliation Pharmacy has completed the medication reconciliation. Reviewed med rec done by nursing
--- NOTE | 2023-07-18 15:33 | P.OP_ITS ---
Operative Note Operative Note Date of Service: 07/18/23 Narrative: Preop Diagnosis: 1.) Adjacent degenerative disc disease with scoliosis Procedure: L3-4 discectomy, arthrodesis and implantation cage through an anterolateral, retroperitoneal approach; removal L4-5 posterior instrumentation on the left side; insertion posterior fusion L3-4 on the left side; posterolateral fusion L3-4; allograft Consent Informed Consent was obtained for this operation. I have explained the nature, p urpose and benefits of the operation. I have discussed the risks and benefit of the operation including possible complications or adverse events with patient/family. Alternative(s) were discussed with the patient with their relative benefits and risks as well as the consequences of not accepting the operation were included in obtaining consent. Surgeon: CATRACHITO CANDELARIO MD, PHD Procedure Assisted By: DICKSON Hudson Description of Procedure This 83-year-old female is suffering from back pain and lumbar radiculopathy. MRI and x-ray shows adjacent degenerative disc disease with a unilateral collapse of the disc space causing a scoliosis and nerve root compression. The patient was offered an oblique lumbar interbody fusion L3-4, L4-5 instrumentation and reinsertion L3-4 posterior instrumentation.. The procedure complications were explained. The patient was consented. The patient was brought to the operating room and endotracheally intubated. The patient was turned in a lateral position with the left side up. Prep and drape was done followed by timeout. A small incision was made in the left lower abdominal quadrant. The muscle fascia was opened after which the 3 muscle layer was split to enter the retroperitoneal space. Dilators were docked in the anterior one third of the L3- 4 disc space followed by a retractor. The retractor was opened. The L3-4 disc space was exposed. An annulotomy was done after which an elevator Moon was used to release the disc material from its endplates and to perforate the contralateral side. A partial discectomy was done. An 8 and 10 mm height trial implant were inserted. The discectomy was completed. The endplates were prepared. An 10 x 45 mm with 0 degree lordosis 4 web cage filled with allograft was inserted into the disc space under fluoroscopic guidance. This resulted in a correction of the disc collapse and scoliosis. The retractor was removed. Hemostasis was done. The incision was closed in 2 layers. Steri-Strips used to approximate incision. An OpSite with Tegaderm was used to cover the incision. This marked first part of the procedure. The patient was turned prone on the Harvinder spine table. 2C arms were installed for fluoroscopy. Prep and drape was done followed by a second timeout. The previous 2 paramedian incisions were opened to expose the L4-5 posterior hardware. I tried to remove the locking cap from the right L4 pedicle screw but the removal instrumentation hi low truck driver failed and therefore I had to leave the L4-5 instrumentation on the right side in Situ. I opened up the left paramedian incision and expose the L4-5 posterior instrumentation. This time we were able to remove the locking caps solo and screws. A new 7.5 x 50 mm screw was inserted in the left L4 pedicle and another screw was placed in the left L3 pedicle with a diameter of 6.5 x 50 mm. The insertion was done with aid of thePediguard, which reviewed no abnormalities. Pedicle screws were connected with 40 mm solo bilaterally and locked down with locking caps. The extension towers were removed. The posterolateral gutter was filled with allograft to complete the posterolateral L3-4 fusion Hemostasis was done and the incision was closed in 2 layers. Steri-Strips were used to approximate the incision. An OpSite were taken and was used to cover the incision. All sponge and needle counts were correct. Patient was extubated and transferred in stable is to recovery room. Anesthesia: General Estimated Blood Loss (ml): 20 mL Duration of Surgery: 2.5 hours Complications: None Postoperative Plan: Admit to inpatient for observation
[2023-07-18] MEDS: HYDROmorphone HCl 0.5 MG/0.5 ML SYRINGE IVPUSH ×2 (16:15→16:40)
[2023-07-18] MEDS: oxyCODONE HCl Immed Release 5 MG TABLET 10 MG PO ×2 (17:43→21:22)
[2023-07-18] MEDS: Acetaminophen 325 MG TABLET 975 MG PO (18:00)
[2023-07-18] MEDS: HYDROmorphone HCl 1 MG/ML SYRINGE IVPUSH ×2 (20:09→23:29)
[2023-07-18] MEDS: Docusate Sodium 100 MG CAPSULE PO (20:09)
[2023-07-19] MEDS: Acetaminophen 325 MG TABLET 975 MG PO (01:13)
[2023-07-19 03:19] VITALS: BP 121/58; PULSE 80; RESP 14; TEMP 36.2; O2SAT 93
[2023-07-19] MEDS: Omeprazole 40 MG CAPSULE.DR PO (05:36)
[2023-07-19] MEDS: oxyCODONE HCl Immed Release 5 MG TABLET 10 MG PO (05:36)
--- NOTE | 2023-07-19 05:39 | PC.NURSE ---
pt woke up with little confusion. pt think she was at home, looking for her daughter. once fully wakes up she's AOx4. answer all my questions. during the night. given Dilaudid and Oxycodone per eMar. pt voided once greater than 300 mL. using the bedside commode. educated post-op care. pt responds all interaction. no notice issues. will continue to monitor.
[2023-07-19 07:35] VITALS: BP 121/58; PULSE 80; O2SAT 93
[2023-07-19 07:44] VITALS: BP 140/67; PULSE 82; RESP 16; TEMP 36.3; O2SAT 98
[2023-07-19] MEDS: amLODIPine Besylate 2.5 MG TABLET PO (07:48)
[2023-07-19] MEDS: Gabapentin 300 MG CAPSULE PO (07:48)
[2023-07-19] MEDS: Docusate Sodium 100 MG CAPSULE PO (07:48)
[2023-07-19] MEDS: HYDROmorphone HCl 1 MG/ML SYRINGE IVPUSH (07:49)
[2023-07-19 07:54] VITALS: BP 154/72; PULSE 80; RESP 15; TEMP 36.3; O2SAT 96
--- NOTE | 2023-07-19 09:25 | HO.NEURO.PN ---
Neurosurgery Operative Note Date of Service: 07/19/23 Narrative: Postop day 1. L3-4 oblique lumbar interbody fusion with revision of posterior instrumentation Patient overall reports significant improvement in her preoperative leg pain. She has back pain as expected. She has been voiding and tolerating a diet. She was up walking with physical therapy this morning and they anticipate home discharge today. Afebrile, vital signs stable Physical exam: Patient is awake alert oriented x3, she has full strength of bilateral lower extremities, abdomen soft nondistended nontender, left lower quadrant incision clean and dry no rebound tenderness or guarding, back dressings have small amount of staining but no signs of hematoma. Impression: Postop day 1. L3-4 oblique lumbar interbody fusion with revision of posterior instrumentation, clinically doing okay, worked for physical therapy this morning they expect she can go home today. She is otherwise tolerating a diet, voiding okay and her pain is reasonably well controlled, we will plan for discharge today. Patient seen at bedside with Dr. Shaw.
--- NOTE | 2023-07-19 09:29 | P.DS_ITS ---
DS: Providers Provider Date of Service: 07/18/23 Date of admission: 07/18/23 08:27 Date of discharge: 07/19/23 Primary care physician: Ashleigh Grullon MD Admitting clinician: Bran Shaw DS: Diagnosis Discharge Diagnosis (1) Scoliosis (and kyphoscoliosis), idiopathic: Status: Acute DS: Summary Time Attestation Discharge coordination time: Less than 30 minutes Quality: Safe Use of Opioids Does Pt have an Active Cancer Diagnosis on the Problem List?: No Quality: Stroke Does the patient have a stroke diagnosis?: No Physical Exam Vital Signs: Vital Signs: Last Vital Signs Temp 97.3 F 07/19/23 07:54 Pulse 80 07/19/23 07:54 Resp 15 07/19/23 07:54 BP 154/72 H 07/19/23 07:54 Pulse Ox 96 07/19/23 07:54 O2 Del Method Room Air 07/19/23 07:54 O2 Flow Rate 1 07/18/23 16:45 BMI result Body Mass Index 29.9 DS: Data Data Completed and Pending Completed studies during hospitalization [Text1]: Procedures Excision of Duodenum, Via Natural or Artificial Opening Endoscopic, Diagnostic (04/16/23) Excision of Stomach, Pylorus, Via Natural or Artificial Opening Endoscopic, D iagnostic (04/16/23) Inspection of Lower Intestinal Tract, Via Natural or Artificial Opening Endoscopic (04/16/23) Transfusion of Nonautologous Red Blood Cells into Peripheral Vein, Percutaneous Approach (04/16/23) Discharge Plan Discharge Anticipated Discharge Date/Time: 07/19/23 01:00 Patient Disposition: Home, Self-Care Discharge Diagnosis: Lumbar degenerative disc disease Referrals: Ashleigh Grullon MD [Primary Care Provider] - 1 Week Discharge Medications: New docusate sodium [Colace] 100 mg capsule 100 mg PO BID Qty: 20 0RF oxycodone 5 mg tablet See Rx Instructions .ROUTE .COMPLEX PRN (Reason: pain) Qty: 40 0RF Rx Instructions: 1-2 tabs p.o. q.4 hours p.r.n. pain; Partial Fill upon patient request. Continued ferrous sulfate 325 mg (65 mg iron) tablet 325 mg PO DAILY amlodipine 2.5 mg tablet 2.5 mg PO DAILY omeprazole 40 mg capsule,delayed release(DR/EC) 40 mg PO DAILY@0630 30 Days Qty: 30 4RF Discharge Orders: Discharge Order (Routine); Ordered 07/19/23 Ordered By: Boo Horton Diet: Advance to usual diet Activity on Discharge: As tolerated Stand Alone Forms: Patient Portal Discharge page Activity Restrictions/Additional Instructions: After your spinal surgery we ask you to observe the following restrictions/guidelines: Activity: It is normal to feel some discomfort as you increase your activity, but that will improve with time. We ask you avoid heavy lifting or acitivities that cause pain. As a general rule, 8lbs is a safe limit for lifting right after surgery. Walk as much as you feel comfortable but not to exhaustion. You will feel extra tired the first few days after surgery. Stay well hydrated. It is OK to walk up and down stairs You may return to driving when you are off narcotics (such as vicodin, oxycodone, dilaudid, etc), and you are back to normal functional capacity. If you have any concerns please check with office before driving. Return to work is specific to each patient and each surgery, so please speak with your doctor/PA at first follow up. Please bring paperwork such as FMLA at that time if you need it filled out. Medications: For optimum pain control, it is best to start with a combination of 500 mg of Tylenol every 4 hours with 600 mg of Motrin every 8 hours (if you can take these with your history of gastritis) , and use narcotics as needed in between for breakthrough pain. We will give you a short supply of narcotics after surgery (usually one weeks worth). If you need more please call the office but do not use more than prescribed. You will need to give our office 48 hours notice if you need narcotics refilled and we do not fill narcotics on weekends or evenings. If you are on a narcotic, it is a good idea to take a stool softener such as colace or senna to avoid constipation If you take blood thinner such as aspirin, Plavix, Coumadin, Effient, Eliquis etc for conditions such as Afib, DVT, Pulmonary embolus, coronary disease, stents etc please speak with your surgeon about specific details as to when you can resume these medications. You can resume NSAIDs on post op day 1 (eg: Motrin, Naproxen, etc). Follow up: Please call the office, , after surgery to arrange a 3 week follow up for wound check. Wound Care: You may remove your dressing on the first day after surgery. ?You may ?leave open to air. Please do not remove the steri strips underneath. they will fall off on their own in one week. IT IS NORMAL FOR THE WOUND TO OOZE OR BE BLOODY FOR A FEW DAYS AFTER SURGERY. ?IF THIS HAPPENS JUST PLACE NEW DRESSING OVER IT TO AVOID STAINING CLOTHES. You may shower on post op day # 1 We ask that you do not let the water soak the wound. If it does get wet, just towel dry lightly. Please do not scrub your incision or place any type of chemical/ointment on the wound. No tub baths, pools or jacuzzis for one month. If you have any leaking or redness from your wound, or fevers, please call office Care Plan Goals: Discharge home Health Concerns: None Plan of Treatment: Discharge home Assessment: Stable
--- NOTE | 2023-07-19 10:57 | MHC.CM.PN ---
PATIENT LIVES WITH HER SISTER. SHE IS INDEPENDENT WITH ADLS NO VNA SERVICES IN THE HOME. 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 UPON DC, PATIENT'S HCP/DAUGHTER, HORACIO, WILL BE STAYING AT THE HOME TO ASSIST. NO HCP ON FILE AND A COPY IS REQUESTED. PLAN IS HOME TODAY WITH NO VNA SERVICES NEEDED. IMM 07/19 IN CHART.
--- NOTE | 2023-07-19 11:41 | MHC.CM.PN ---
HCP/POA/NELI RECEIVED AND COPIED [facility]
--- NOTE | 2023-07-19 11:55 | HO.POSTANES ---
Post Anesthesia Evaluation Post Anesthesia Evaluation Date of Service: 07/19/23 Vital Signs: Vital Signs Temp Pulse Resp BP Pulse Ox O2 Del Method 07/19/23 10:00 Room Air 07/19/23 07:54 97.3 F 80 15 154/72 H 96 Room Air 07/19/23 07:44 97.4 F 82 16 140/67 H 98 Room Air 07/19/23 07:35 80 121/58 L 93 07/19/23 03:19 97.2 F 80 14 121/58 L 93 Room Air 07/18/23 23:59 16 Anesthesia: General Endotracheal-GETA Mental Status: Awake Pain Control: Satisfactory Nausea/Vomiting: None Hydration: Adequate Anesthesia-Related Issues: No Anes. Related Issues
--- NOTE | 2023-07-24 09:12 | W.MHC.F2F ---
Service Date Service Date: 07/24/23 Encounter Date of encounter: 07/24/23 Encounter: s/p unilateral posterolateral fusion of L3-4 Reasons for Services Signs and symptoms assessed: Lumbago, postoperative pain Reason for physical therapy: home safety and mobility, therapeutic exercises, gait/transfer training, ADL training and energy conservation Reason for occupational therapy: home safety and mobility, therapeutic exercises, gait/transfer training, ADL training and energy conservation Homebound: Leaving the home is medically contraindicated at this time without the asist of a device and/or another person due th the listed conditions above and below. Reason homebound: unsteady gait / fall risk and pain with transfers Certification: Based on the above findings, I certify that this patient is confined to the home and needs intermittent jail care, physical therapy and/or speech therapy, or continues to need occupational therapy. The patient is under my care, and I have initiated the establishment of the plan of care. The patient will be followed by a physician who will periodically review the plan of care. Time Spent With Patient Time: Total time managing care of this patient today __15__ minutes.
== END 2023-07-19 11:58 | disposition home or self-care (01) | DRG 458 ==
LOC: HO.SSSA 08:30 → HO.S3 15:52
PROVIDERS: Neurological Surgery; Admitting Provider Physician Assistant; PCP Internal Medicine; Visit Provider Physician Assistant
PROC: 0SG00A0 Fusion of Lumbar Vertebral Joint with Interbody Fusion Device, Anterior Approach, Anterior Column, Open Approach (ICD-10-PCS; principal; 2023-07-18 10:50)
DX: M51.36 Other intervertebral disc degeneration, lumbar region (principal); M41.56 Other secondary scoliosis, lumbar region; E78.00 Pure hypercholesterolemia, unspecified; Z23 Encounter for immunization; Z79.899 Other long term (current) drug therapy
CPT/HCPCS: 86850; 86900; 86901; 90471; 90686; 93005; 97162; C1713; J0131; J1100; J1170; J1885; J2405; J2598; J2704; J3010; J3370; L8699

== ENCOUNTER → 2023-07-18 08:27 | Outpatient (BNV) | payer MEDICARE, SELFPAY ==
--- NOTE | 2023-07-25 14:39 | HO.SPINEOV ---
Intake Intake Visit Reasons: S/P l3-4 OLIF Allergies ampicillin [AMPICILLIN] Allergy (Severe, Verified 06/22/23 11:35) swelling in face/itchy throat tetracycline [TETRACYCLINE] Allergy (Severe, Verified 06/22/23 11:35) itchy throat/swelling in face Assessment & Plan Assessment & Plan Medications: Discontinued oxycodone Discontinued Reason: Doctor's Order 1-2 tabs p.o. q.4 hours p.r.n. pain; Partial Fill upon patient request. 40 tabs 0RF pain Coding
== END ==
PROVIDERS: Admitting Provider Physician Assistant; PCP Internal Medicine; Visit Provider Neurological Surgery
DX: M41.20 Other idiopathic scoliosis, site unspecified (principal)
CPT/HCPCS: 20930; 22558; 22612; 22849; 22853; 99024; 99499; G0180

== ENCOUNTER 2023-08-08 10:04 | Outpatient (AMB) | payer MEDICARE, SELFPAY ==
--- NOTE | 2023-08-08 10:09 | HO.SPINEOV ---
Intake Intake Visit Reasons: 1st post op Intake Note: Ms. Barrera is here today for 1st post op. Photographs Curator Required: No Allergies ampicillin [AMPICILLIN] Allergy (Severe, Verified 06/22/23 11:35) swelling in face/itchy throat tetracycline [TETRACYCLINE] Allergy (Severe, Verified 06/22/23 11:35) itchy throat/swelling in face Assessment & Plan Assessment & Plan (1) S/P lumbar fusion: Code(s): Z98.1 - Arthrodesis status Plan Procedure: L3-4 OLIF Crystal comes in today for her 1st postoperative visit. She reports that she has had quite a bit of postoperative pain since being discharged from the hospital. She states that she is still suffering from the left-sided radiculopathy that travels over her anterior thigh and terminates in her left knee. Unfortunately, she has not been taking any Tylenol or ibuprofen since her surgery. We discussed the importance of taking 1,000mg of Tylenol 3-4 times daily, as it reduces prostaglandin production. We also discussed ambulation postoperatively. She is currently walking with the assistance of a walker but only really ambulates around her home. I encouraged her to spend more time getting out of her house to go walking. No new neurological deficits. Sensation grossly intact. Patient is able to ambulate well, rises from a seated position with assistance of a walker. Incision sites are closed, well healing, with no signs of drainage. We will follow-up with the patient in 6 weeks for her 2nd postoperative visit. At that time we will get x-rays to review with the patient. López Shaw MD,PhD [facility] Medications: Changed From hydromorphone Partial Fill upon patient request. 2 mg PO Q4-6H 30 tabs 0RF severe pain To hydromorphone Partial Fill upon patient request. 2 mg PO Q8H 21 tabs 0RF severe pain Coding Level of Care Code Global (32948) Diagnoses S/P lumbar fusion Z98.1
== END 2023-08-08 10:28 | disposition home or self-care (01) ==
PROVIDERS: PCP Internal Medicine; Visit Provider Physician Assistant
DX: Z98.1 Arthrodesis status (principal)
CPT/HCPCS: 99024

== ENCOUNTER → 2023-08-08 10:04 | Outpatient (BNVA) | payer MEDICARE, SELFPAY | PROVIDERS: PCP Internal Medicine; Visit Provider Physician Assistant | DX: Z47.89 Encounter for other orthopedic aftercare (principal); Z98.1 Arthrodesis status | CPT/HCPCS: 99212 ==

== ENCOUNTER 2023-08-24 13:44 | Outpatient (AMB) | payer MEDICARE, SELFPAY ==
[2023-08-24 13:56] VITALS: BP 138/80; PULSE 78; O2SAT 98; BMI 29.0
--- NOTE | 2023-08-24 13:56 | A.OFFPC_ITS ---
Vital Signs 08/24/23 13:56 Height 5 ft 4 in Weight 169 lb BMI 29.0 BP 138/80 Blood Pressure Location Rt brachial Position Sitting Pulse 78 Pulse Source Pulse Oximeter Pulse Oximetry (%) 98 Oxygen Delivery Method Room Air Intake Visit Reasons: TWO (2) MONTH F/U HTN Allergies ampicillin [AMPICILLIN] Allergy (Severe, Verified 08/24/23 13:59) swelling in face/itchy throat tetracycline [TETRACYCLINE] Allergy (Severe, Verified 08/24/23 13:59) itchy throat/swelling in face Medication List - Last Reconciled 08/24/23 by Ashleigh Grullon MD amlodipine 2.5 mg PO DAILY docusate sodium (Colace) 100 mg PO BID hydromorphone 2 mg PO Q8H omeprazole 40 mg PO DAILY@0630 30 days Tobacco use date assessed: 08/24/23 Fall risk assessment: No Falls in past year Last assessed Fall Risk: 08/24/23 Dental Screening Dental Screen Date: 08/24/23 Did you have a dental visit in the last 12 months?: Yes Did you have a dental problem in the last 6 months where you did not have access to dental care?: No Was dental information given to patient?: Patient has dentist HPI TWO (2) MONTH F/U HTN HPI Details Patient presents for the follow-up of lower back surgery. She complains of persistent pain not significantly improved since the surgery patient was told to take up to 3 g of Tylenol for the last 3 weeks and has been taking hydromorphone as prescribed by Neurosurgery. Patient has been doing home physical therapy once a week and daily exercises. She has been ambulating with a walker. PFSH Medical History [place] ([place] hearing) GI bleed due to NSAIDs Osteoarthritis Elevated cholesterol Hyperglycemia HTN (hypertension) Lumbar stenosis Vertigo Gastritis Scoliosis (and kyphoscoliosis), idiopathic Anemia Surgical History Hx of tonsillectomy History of total left knee replacement History of esophagogastroduodenoscopy (EGD) H/O colonoscopy History of lumbar laminectomy History of total left hip arthroplasty History of appendectomy H/O cataract removal with insertion of prosthetic lens Family History Father No problems noted. Mother Breast cancer Social History Household Members: Family Household Members Other:: sister Housing: Condominium Are you a primary health care specialist to a significant other at home: No Do you presently have visiting nurse or other home services: No Patient Tobacco Use Status: Never used Tobacco e-Cigarette/Vaping Use: Never Used Advance Directives Date on File: 10/16/22 service: No Current occupational status: retired Cognitive needs: No Hearing needs: Yes Vision needs: No Questionnaire Thrive Questionnaire Date Thrive assessed: 07/19/23 NAILA-7 AMB Questionnaire NAILA-7 Date NAILA - 7 assessed: 06/15/23 Source: Developed by Drs. Mukesh Rice, Sravani Ramirez, Martin Padgett and colleagues, with an educational faisal from [employer]. Review of Systems Const All systems reviewed & are unremarkable except as noted in HPI and below Reports no additional complaints Eyes Reports no additional complaints ENT Reports no additional complaints Card Reports no additional complaints Resp Reports no additional complaints GI Reports no additional complaints Reports no additional complaints Physical exam (Primary Care) Vital Signs: Last Vital Signs Pulse 78 08/24/23 13:56 BP 138/80 08/24/23 13:56 Pulse Ox 98 08/24/23 13:56 Oxygen Delivery Method Room Air 08/24/23 13:56 BMI result Body Mass Index 29.0 Tobacco/Smoking Status: Tobacco use Status Tobacco use date assessed 08/24/23 08/24/23 14:01 Patient Tobacco Use Status Never used Tobacco 08/24/23 14:01 e-Cigarette/Vaping Use Never Used 08/24/23 14:01 Thrive Assessment: Date of Thrive Assessment Date Thrive assessed 07/19/23 08/24/23 14:01 Const General: no acute distress HENMT Head: Yes normal to inspection Ears: hearing grossly normal bilaterally Face and sinus: Yes normal facial exam Eyes General: appearance normal, both eyes and all related structures Neck Neck: Yes supple Resp Effort & Inspection: normal respiratory effort Auscultation: clear to auscultation bilaterally Cardio Rhythm: regular rhythm Heart sounds: S1 normal heart sound present and S2 normal heart sound present GI Inspection: Yes normal to inspection Palpation (GI): Soft to palpation Percussion: Yes normal to percussion Auscultation: normal bowel sounds Assessment and Plan Assessment & Plan (1) Anemia: Comment: Iron def, GI w/u inpt EGD and colonoscopy no acute bleed 05/26, on oral Iron suppl Code(s): D64.9 - Anemia, unspecified Plan: pt has been off Iron supplement for >1 month, check CBC and Iron studies (2) Low back pain: Comment: MR Feb 2023, spinal stenosis, multiple level disc herniations Code(s): M54.50 - Low back pain, unspecified Plan: Follow-up with neurosurgery. Patient was advised not to exceed 2 g of Tylenol daily to prevent liver injury from Tylenol. She will try Celebrex 200 mg for 10 days and will assess and record her pain level daily. (3) HTN (hypertension): Code(s): I10 - Essential (primary) hypertension Plan: Blood pressure is elevated and amlodipine will be increased to 5 mg a day. Patient will follow-up in 1 month (4) Erosive gastritis: Comment: EDG 05/26, secondary to NSAIDs, on PPI Code(s): K29.60 - Other gastritis without bleeding Plan: Continue PPI and avoid NSAIDs Orders: Orders IRON PROFILE Today D64.9 - Anemia, unspecified, I10 - Essential (primary) hypertension, M54.50 - Low back pain, unspecified Complete Blood Count Auto Diff Today D64.9 - Anemia, unspecified, I10 - Essential (primary) hypertension, M54.50 - Low back pain, unspecified Comprehensive Met. Panel Today D64.9 - Anemia, unspecified, I10 - Essential (primary) hypertension, M54.50 - Low back pain, unspecified Medications: New celecoxib (Celebrex) 200 mg PO DAILY 30 caps 0RF amlodipine 5 mg PO DAILY 60 tabs 0RF Coding Level of Care Code Est Pt Level 4 (21919) Diagnoses Anemia D64.9 Low back pain M54.50 HTN (hypertension) I10 Erosive gastritis K29.60
== END 2023-08-24 14:41 | disposition home or self-care (01) ==
PROVIDERS: PCP Internal Medicine; Visit Provider Internal Medicine
DX: D64.9 Anemia, unspecified (principal); M54.50 Low back pain, unspecified; I10 Essential (primary) hypertension; K29.60 Other gastritis without bleeding
CPT/HCPCS: 99214

== ENCOUNTER 2023-08-24 14:42 | Outpatient (REF) | payer MEDICARE, SELFPAY ==
[2023-08-24 16:12] LABS: MANUAL DIFF FLAG NO
[2023-08-24 16:16] LABS: Basophils Percent Auto 0.3 % (0-2); Eosinophils Absolute Auto 0.1 X10*3/uL (0.0-0.4); Eosinophils Percent Auto 1.6 % (0-4); Hematocrit 41.9 % (37.0-47.0); Imm Gran Abs Auto 0.02 X10*3/uL (0.00-0.03); Imm Gran Pct Auto 0.3 % (0.0-0.4); Lymphocytes Absolute Auto 2.5 X10*3/uL (1.2-4.9); Lymphocytes Percent Auto 37.2 % (20-40); Mean Corpuscular HGB Conc 33.4 g/dl (31.0-35.0); Mean Corpuscular Hemoglobin 28.7 pg (27.0-33.0); Monocytes Absolute Auto 0.5 X10*3/uL (0.1-1.2); Monocytes Percent Auto 7.9 % (2-11); Neutrophils Absolute Auto 3.6 x10*3/uL (2.0-8.3); Neutrophils Percent Auto 52.7 % (45-73); Platelet Count 253 X10*3/uL (160-400); Red Blood Count 4.87 X10*6/uL (4.20-5.50); Red Cell Distribution Width 15.7 % (11.0-16.0); White Blood Count 6.8 X10*3/uL (4.8-10.8)
[2023-08-24 16:27] LABS: Alanine Aminotransferase 16 U/L (0-31); Albumin Level 4.6 g/dL (3.5-5.0); Alkaline Phosphatase 114 U/L (39-117); Anion Gap 13 (12-20); Aspartate Amino Transferase 21 U/L (5-31); Bilirubin Total 0.5 mg/dL (0.0-1.0); Blood Urea Nitrogen 15 mg/dL (9-16); Calcium 9.8 mg/dL (8.4-10.2); Carbon Dioxide 28 mmol/L (22-29); Chloride 103 mmol/L (96-108); Estimated Glomerular Filt Rate > 60; Glucose Random 93 mg/dL (60-115); Iron 81 mcg/dL (30-160); Percent Iron Saturation 22 % (15-50); Potassium 3.8 mmol/L (3.3-5.1); Sodium 140 mmol/L (135-145); Total Iron Binding Capacity 369 mcg/dL (228-428); Total Protein 7.5 g/dL (6.5-8.0); Unsaturated Iron Binding 288 ug/dL
== END 2023-08-24 14:43 | disposition home or self-care (01) ==
LOC: HO.HMGCLDS 14:42
PROVIDERS: PCP Internal Medicine; Visit Provider Internal Medicine
DX: D64.9 Anemia, unspecified (principal); I10 Essential (primary) hypertension; M54.50 Low back pain, unspecified
CPT/HCPCS: 36415; 80053; 83540; 85025

== ENCOUNTER 2023-09-21 13:17 | Outpatient (REF) | payer MEDICARE, SELFPAY ==
--- NOTE | ~2023-09-21 | XR_ITS ---
EXAMINATION: XR LUMBOSACRAL SPINE WITH OBLIQUES CLINICAL INFORMATION: Arthrodesis status. COMPARISON: Fluoroscopic OR images of 07/18/2023. MRI lumbar spine 02/24/2023. X-ray lumbar spine 01/18/2020. TECHNIQUE: 4 views of the lumbar spine inclusive of AP, lateral neutral, flexion and extension views. FINDINGS: The bones are diffusely demineralized. Dextroscoliosis of the lumbar spine. Posterior fusion hardware at L4-L5 on the right and L3-L4 on the left. Disc spacer at L3-L4 projects slightly beyond the anterior margin of the disc space with mild grade 1 anterolisthesis of L3 on L4. Small rectangular radiopaque device projects along the posterior aspect of the L4 component on the lateral view, of uncertain significance. Correlate to surgical history and exam recommended. Grade 1 anterolisthesis of L4 on L5 with flexion and extension. Degenerative changes in the remainder of the lumbar spine at L1-L2 and L2-L3 as well as in the imaged lower thoracic spine. Two (2) metallic devices overlie and obscure the right sacroiliac joint with presumed zipper overlying the lower right hemipelvis. Left hip prosthesis minimally imaged. XR/XR lumbar spine 4V min IMPRESSION: 1. Posterior fusion hardware at L4-L5 on the right and L3-L4 on the left. Disc spacer at L3-L4 projects slightly beyond the anterior margin of the disc space with mild grade 1 anterolisthesis of L3 on L4.Grade 1 anterolisthesis of L4 on L5 with flexion and extension. 2. Small rectangular radiopaque device projects along the posterior aspect of the L4 component on the lateral view, of uncertain significance. Correlation with surgical history and exam recommended.
== END 2023-09-21 13:18 | disposition home or self-care (01) ==
LOC: HO.HOSX 13:17
PROVIDERS: PCP Internal Medicine; Visit Provider Physician Assistant
DX: Z47.89 Encounter for other orthopedic aftercare (principal); Z98.1 Arthrodesis status
CPT/HCPCS: 72110; 99212

== ENCOUNTER 2023-09-21 13:17 | Outpatient (AMB) | payer MEDICARE, SELFPAY ==
--- NOTE | 2023-09-21 13:36 | HO.SPINEOV ---
Intake Visit Reasons: 2nd post op with xrays Intake Note: Ms. Barrera is here today for 2nd Post-op appointment. Senior Talent Acquisition Specialist Required: No Allergies ampicillin [AMPICILLIN] Allergy (Severe, Verified 08/24/23 13:59) swelling in face/itchy throat tetracycline [TETRACYCLINE] Allergy (Severe, Verified 08/24/23 13:59) itchy throat/swelling in face Assessment & Plan Assessment & Plan (1) S/P lumbar fusion: Code(s): Z98.1 - Arthrodesis status Category: Medical Plan Procedure: L3-4 OLIF Juanita comes in today for subsequent follow-up visit after being evaluated postoperatively for a L3-4 OLIF during her last visit. Unfortunately, she reported quite a deal of pain during her last visit. Thankfully her leg pain has resolved, and she is only left with a very mild dull back pain. She has been doing very well with ambulation and utilizing her walker. We reviewed her x-rays in office today which shows stable placement of her surgical construct. No new neurological deficits, posterior incision sites are closed and well healed. There is no need for regular routine follow-up with Crystal any longer. She may be discharged as a patient. López Shaw MD,PhD [facility] Orders: Orders XR lumbar spine 4V min Today Z98.1 - Arthrodesis status
== END 2023-09-21 14:46 | disposition home or self-care (01) ==
PROVIDERS: PCP Internal Medicine; Visit Provider Physician Assistant
DX: Z98.1 Arthrodesis status (principal)
CPT/HCPCS: 99024

== ENCOUNTER 2023-09-28 12:38 | Outpatient (AMB) | payer MEDICARE, SELFPAY ==
[2023-09-28 12:51] VITALS: BP 124/78; PULSE 97; O2SAT 97; BMI 28.7
--- NOTE | 2023-09-28 12:51 | MHC.PC.OV ---
Vital Signs 09/28/23 12:51 Height 5 ft 4 in Weight 167 lb BMI 28.7 BP 124/78 Blood Pressure Location Rt brachial Position Sitting Pulse 97 Pulse Source Pulse Oximeter Pulse Oximetry (%) 97 Oxygen Delivery Method Room Air Intake Visit Reasons: 1 month follow up Allergies ampicillin [AMPICILLIN] Allergy (Severe, Verified 09/28/23 12:52) swelling in face/itchy throat tetracycline [TETRACYCLINE] Allergy (Severe, Verified 09/28/23 12:52) itchy throat/swelling in face Medication List - Last Reconciled 09/28/23 by Ashleigh Grullon MD amlodipine 5 mg PO DAILY baclofen 10 mg PO BID celecoxib (Celebrex) 200 mg PO BID PRN docusate sodium (Colace) 100 mg PO BID omeprazole 40 mg PO DAILY@0630 30 days Tobacco use date assessed: 08/24/23 Dental Screening Dental Screen Date: 08/24/23 HPI 1 month follow up HPI Details Pt presents for f/u HTN, stable on Amlodipine. LOWER BACK PAIN IS SLIGHTLY IMPROVED. PATIENT HAS BEEN TAKING CELEBREX NEEDED. She is interested in trying physical therapy PFSH Medical History [place] (hard of hearing) GI bleed due to NSAIDs Osteoarthritis Elevated cholesterol Hyperglycemia HTN (hypertension) Lumbar stenosis Vertigo Gastritis Scoliosis (and kyphoscoliosis), idiopathic Anemia Surgical History Hx of tonsillectomy History of total left knee replacement History of esophagogastroduodenoscopy (EGD) H/O colonoscopy History of lumbar laminectomy History of total left hip arthroplasty History of appendectomy H/O cataract removal with insertion of prosthetic lens Family History Father No problems noted. Mother Breast cancer Social History Household Members: Family Household Members Other:: sister Housing: Condominium Are you a primary career and guidance counselor to a significant other at home: No Do you presently have visiting nurse or other home services: No Patient Tobacco Use Status: Never used Tobacco e-Cigarette/Vaping Use: Never Used Advance Directives Date on File: 10/16/22 service: No Current occupational status: retired Cognitive needs: No Hearing needs: Yes Vision needs: No Questionnaire Thrive Questionnaire Date Thrive assessed: 07/19/23 NAILA-7 AMB Questionnaire NAILA-7 Date NAILA - 7 assessed: 06/15/23 Source: Developed by Drs. Mukesh Rice, Sravani Ramirez, Martin Padgett and colleagues, with an educational faisal from [employer]. Review of Systems Const All systems reviewed & are unremarkable except as noted in HPI and below Reports no additional complaints Eyes Reports no additional complaints ENT Reports no additional complaints Reports no additional complaints Musc Reports no additional complaints Physical exam (Primary Care) Vital Signs: Last Vital Signs Pulse 97 09/28/23 12:51 BP 124/78 09/28/23 12:51 Pulse Ox 97 09/28/23 12:51 Oxygen Delivery Method Room Air 09/28/23 12:51 BMI result Body Mass Index 28.7 Tobacco/Smoking Status: Tobacco use Status Tobacco use date assessed 08/24/23 09/28/23 12:52 Patient Tobacco Use Status Never used Tobacco 09/28/23 12:52 e-Cigarette/Vaping Use Never Used 09/28/23 12:52 Thrive Assessment: Date of Thrive Assessment Date Thrive assessed 07/19/23 09/28/23 12:52 Const General: no acute distress HENMT Head: Yes normal to inspection Ears: hearing grossly normal bilaterally Face and sinus: Yes normal facial exam Throat: Yes posterior oropharynx normal Eyes General: appearance normal, both eyes and all related structures Neck Neck: Yes no lymphadenopathy and Yes supple Resp Effort & Inspection: normal respiratory effort Auscultation: clear to auscultation bilaterally Cardio Rhythm: regular rhythm Heart sounds: S1 normal heart sound present and S2 normal heart sound present Assessment and Plan Assessment & Plan (1) HTN (hypertension): Code(s): I10 - Essential (primary) hypertension Plan: Continue amlodipine (2) Lower back pain: Code(s): M54.50 - Low back pain, unspecified Plan: Referred to physical therapy continue Celebrex as needed only patient was advised to avoid NSAIDs and aspirin Orders: Orders Comprehensive [place]. Panel Fast 3 Months E78.5 - Hyperlipidemia, unspecified, I10 - Essential (primary) hypertension, R73.9 - Hyperglycemia, unspecified Complete Blood Count Auto Diff 3 Months E78.5 - Hyperlipidemia, unspecified, I10 - Essential (primary) hypertension, R73.9 - Hyperglycemia, unspecified PT Evaluation and Treatment Today M54.50 - Low back pain, unspecified Lipid Panel 3 Months E78.5 - Hyperlipidemia, unspecified, I10 - Essential (primary) hypertension, R73.9 - Hyperglycemia, unspecified Medications: New baclofen 10 mg PO BID 60 tabs 1RF Changed From celecoxib (Celebrex) 200 mg PO DAILY 60 caps 1RF To celecoxib (Celebrex) 200 mg PO BID PRN Refilled amlodipine 5 mg PO DAILY 90 tabs 3RF omeprazole 40 mg PO DAILY@0630 30 days 30 caps 4RF celecoxib (Celebrex) 200 mg PO DAILY 60 caps 1RF Discontinued hydromorphone Partial Fill upon patient request. Discontinued Reason: Doctor's Order 2 mg PO Q8H 21 tabs 0RF severe pain Coding Level of Care Code Est Pt Level 3 (23878) Diagnoses HTN (hypertension) I10 Lower back pain M54.50
== END 2023-09-28 15:56 | disposition home or self-care (01) ==
PROVIDERS: PCP Internal Medicine; Visit Provider Internal Medicine
DX: I10 Essential (primary) hypertension (principal); M54.50 Low back pain, unspecified
CPT/HCPCS: 99213

== ENCOUNTER 2023-11-13 14:00 | Outpatient (RCR) | payer MEDICARE, SELFPAY ==
--- NOTE | 2023-10-10 09:09 | MHC.PT.EP ---
[facility] [place] Office [place] [facility] [place] [facility] [address] Francis Matthews [address] [phone] F: [phone] F: [phone] F: [phone] F: [phone] Physical Therapy Plan of Care Date of Evaluation: 10/09/23 Date of Surgery: 07/18/2023 Diagnosis: low back pain Assessment: Patient is a 83 year old female presenting to PT with complaints of pain in her low back s/p L3-4 OLIF on 07/18/2023. She presents today with impairments in pain, ROM, hip strength, posture. Pt's current occupation is retired, with baseline physical activities including sitting, ambulating, stair negotiation, ADLs. Pt expresses fpc goal of walking without walker, and is motivated to work towards this in PT. Clinical presentation today is most consistent with signs and sx associated with s/p L3-4 OLIF and pt will benefit from skilled PT 2 week x 4 weeks to address the following problems and impairments noted upon evaluation: pain, ROM, hip strength, posture. These problems limit the patient with the following functional activities: sitting, ambulating, stair negotiation, ADLs. The prescribed treatment plan of care is medically necessary. Co-morbidities of HTN, hx L MITCHELL, hx lumbar laminectomy were identified and taken into considerations of plan of care. Pt was educated on HEP, role of PT, prognosis, POC. Frequency and Duration: The patient will be seen 2 x week x 4 weeks Short Term Goals: Pt will demonstrate hip strength at least 4/5 in 2 weeks for improved lumbopelvic stability. Pt will demonstrate ability to transfer from seated to standing with good fluidity and minimal to no pain in 2 weeks. Pt will report less pain with ROM in available range in 2 weeks. Fpc Goals: Pt will demonstrate improved Tha score by 10% in 4 weeks for improved functional mobility. Pt will demonstrate ability to ambulate with least restrictive device in 4 weeks for return to PLOF. Pt will demonstrate ability to negotiate stairs with use of railing and minimal difficulty in 4 weeks for improved ability to enter and exit her home. Treatment Plan: Modalities to reduce pain, spasms and effusion. Manual therapy to restore motion and function. Therapeutic exercise to improve strength and flexibility. Neuromuscular re-education for posture and balance. Therapeutic activities to return to functional activities of daily living. Electronically signed by: Charissa Yuan PT, DPT, ATC Please sign and return to therapist. Thank you for your referral.
--- NOTE | 2023-11-30 12:14 | MHC.PT.DC ---
[facility] [place] Office [place] Office [place] Office [address] Francis Matthews [address] [phone] F: [phone] F: [phone] F: [phone] F: [phone] Physical Therapy Discharge Report Diagnosis: low back pain Date of Surgery: 07/18/2023 Date of Evaluation: 10/09/23 Date of Discharge: 11/30/23 Treatments to Date: 9 Cancellations to Date: 1 No Shows to Date: 0 Discharge Status: Recommend MD Follow-up Discharge Summary: At last visit pt was having increase in pain. Recommended to follow up with her MD. Spoke to pt over the phone who stated she is likely needing surgery and therefore will d/c her per this POC. Electronically signed by: Charissa Yuan, PT, DPT, ATC Please sign and return to therapist. Thank you for your referral.
== END 2023-11-30 12:15 | disposition home or self-care (01) ==
LOC: HO.PTCHIC 14:00
PROVIDERS: PCP Internal Medicine; Visit Provider Internal Medicine
DX: M54.50 Low back pain, unspecified (principal)
CPT/HCPCS: 97110; 97140; 97162

== ENCOUNTER 2023-11-16 14:24 | Outpatient (AMB) | payer MEDICARE, SELFPAY ==
--- NOTE | 2023-11-16 14:36 | A.SPINEOV_ITS ---
Intake Visit Reasons: LBP/problems walking Intake Note: Ms. Barrera is here today c/o low back pain and difficulty walking. 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 She was very hopeful right after surgery that the back pain and trouble walking that she had before surgery would improve but unfortunately it only seems to be getting worse. She has been taking Celebrex and baclofen to try to deal with it. She is done extensive physical therapy but she continues to have a feeling of unsteadiness with pain along the right side of her back. It does not allow her to stand up straight and when she has walking the pain will become so intense it will make her feel like she is going to fall to the ground so she is required to use a walker now. Even navigating around her house with very simple activities is very difficult because she can not stand upright and she feels like she is going to fall over. She has no pain radiating down the legs this is strictly a back pain situation. When I examined her, she is barely able to stand up out of a chair on her own because of pain. She can localize with her hands where it hurts and she points to the area just above where the stab incisions are in the right hand side. She has proximal weakness that is pain related but distally her strength is full. She is unsteady just walking down the hallway holding onto the wall because she feels like she can not stand up straight. I did standing x-rays of her today, and this shows the remaining a right-sided L4-5 screws from her previous surgery. These were unable to be removed at the time of her surgery due to issues with instrumentation trying to get the locking caps off. The L3-4 instrumentation on the left looks similar to what it did at the time of surgery, however if we compare the level L2-3 and L1-2 above her surgery and an upright position to the x-rays done before surgery in the upright position we can see on the AP view that she has developing a left leaning scoliosis. It appears to be getting worse slightly compared her x-rays 2 months ago. Intraoperatively with the fluoro imaging we can see that on the Harvinder table her spine was completely straight. This is suggesting to me that there may still be a component of worsening degeneration above the surgical site when she is in a weight-bearing upright position. I am going to get a noncontrast CT scan to evaluate for any lucency or pseudoarthrosis. I will review her imaging with Dr. Shaw once it is completed. Total amount of time spent in this visit was 20 minutes in discussion of symptoms, lumbar x-ray imaging results and subsequent plan of care Boo Shaw MD,PhD [facility] Orders: Orders CT lumbar spine wo IV con Today M54.50 - Low back pain, unspecified XR lumbar spine 4V min Today Z98.1 - Arthrodesis status Coding Level of Care Code Est Pt Level 3 (82609) Diagnoses S/P lumbar fusion Z98.1 Scoliosis (and kyphoscoliosis), idiopathic M41.20
== END 2023-11-16 15:11 | disposition home or self-care (01) ==
PROVIDERS: PCP Internal Medicine; Visit Provider Physician Assistant
DX: Z98.1 Arthrodesis status (principal); M41.20 Other idiopathic scoliosis, site unspecified
CPT/HCPCS: 99213

== ENCOUNTER 2023-11-16 14:24 | Outpatient (REF) | payer MEDICARE, SELFPAY ==
--- NOTE | ~2023-11-16 | XR_ITS ---
EXAMINATION: XR LUMBOSACRAL SPINE WITH OBLIQUES CLINICAL INFORMATION: Status post arthrodesis COMPARISON: 09/21/2023 TECHNIQUE: AP, lateral, lateral flexion and extension views FINDINGS: Patient is status post fusion at the level of L4-L5 on the right and at the level of L3-L4 on the left with parallel screws and vertical rods. There is disc spacer seen again in the same position, at the level of L3-L4. The position of disc spacer is stable and satisfactory. There is mild diffuse osteopenia and dextroscoliosis of lumbar spine. XR/XR lumbar spine 4V min IMPRESSION: No interval change
== END 2023-11-16 14:25 | disposition home or self-care (01) ==
LOC: HO.HOSX 14:24
PROVIDERS: PCP Internal Medicine; Visit Provider Physician Assistant
DX: Z98.1 Arthrodesis status (principal)
CPT/HCPCS: 72110; 99212

== ENCOUNTER 2024-01-01 13:31 | Outpatient (AMB) | payer MEDICARE, SELFPAY ==
[2024-01-01 13:35] VITALS: BP 136/86; PULSE 88; O2SAT 98; BMI 29.9
--- NOTE | 2024-01-01 13:35 | AM.OFFVISMDC ---
Intake Vital Signs 01/01/24 13:35 Height 5 ft 4 in Weight 174 lb BMI 29.9 BP 136/86 Blood Pressure Location Lt brachial Position Sitting Pulse 88 Pulse Source Pulse Oximeter Pulse Oximetry (%) 98 Oxygen Delivery Method Room Air Intake Visit Reasons: SWV [id number] Allergies ampicillin [AMPICILLIN] Allergy (Severe, Verified 01/01/24 13:42) swelling in face/itchy throat tetracycline [TETRACYCLINE] Allergy (Severe, Verified 01/01/24 13:42) itchy throat/swelling in face HPI SWV G0439 HPI Details Initiated the conversation about Advanced Directives. Advanced Directives help? patients prepare for current and future decisions about their medical treatment? and place of care. Discussed with patient that it is a process where a patients? current condition and prognosis are reviewed, their wishes for information? regarding their illness are elicited, and likely medical dilemmas are presented? and options discussed. The form can be amended as needed, reviewed yearly and? make changes as needed IPPE/AWV ? year old presents? for her ? Annual? Wellness Visit, initial visit.? Medical / Social History Reviewed? Past Medical History ?Yes? . ? [place]? of Care / Care Team list updated ?Yes . ? Surgical/Hospitalization? History ?Yes . ? Current Medications? (including OTC and supplements) ?Yes . ? Family History ?Yes? . ? Tobacco? Control form ?Yes . ? AUDIT-C (Alcohol use) form? ?Yes . ? Illicit drug use in Social? History ?Yes . ? Current diagnosis of? depression? ?No ? Appropriate PHQ2/PHQ9? completed ?Yes . ? Data entered by ?Medical? Ballet [employer] and reviewed by provider ? Fall Risk ? Fall? History? Have you had any falls with? injury in the past year? ?No . ? Have you had two or more? falls in the past year? ?No . ? Fall Risk Assessment: ?No? falls in the past year . ? HRA filled out by? the patient, reviewed by Provider and scanned. ? IPPE/AWV ? Balance? [place]? ?Yes . ? Tandem? walk ?Yes . ? Walk and? Turn ?Yes . ? Rise from? sit to stand ?Yes . ?Vision? Corrective? lens ?Yes ? Vision? screen ? Up-to-date, has an appointment [] for vision? screening and glaucoma screening ?Hearing? Whisper? test ?pass .? Initiated the conversation about Advanced Directives. Advanced Directives help? patients prepare for current and future decisions about their medical treatment? and place of care. Discussed with patient that it is a process where a patients? current condition and prognosis are reviewed, their wishes for information? regarding their illness are elicited, and likely medical dilemmas are presented? and options discussed. The form can be amended as needed, reviewed yearly and? make changes as needed Written? Plan?Completed. See Patient? Documents. [facility] Medical History PALA (hard of hearing) GI bleed due to NSAIDs Osteoarthritis Elevated cholesterol Hyperglycemia HTN (hypertension) Lumbar stenosis Vertigo Gastritis Scoliosis (and kyphoscoliosis), idiopathic Anemia Surgical History Hx of tonsillectomy History of total left knee replacement History of esophagogastroduodenoscopy (EGD) H/O colonoscopy History of lumbar laminectomy History of total left hip arthroplasty History of appendectomy H/O cataract removal with insertion of prosthetic lens Family History Father No problems noted. Mother Breast cancer Social History Household Members: Family Household Members Other:: sister Housing: Condominium Are you a primary direct care worker to a significant other at home: No Do you presently have visiting nurse or other home services: No Patient Tobacco Use Status: Never used Tobacco e-Cigarette/Vaping Use: Never Used Advance Directives Date on File: 10/16/22 service: No Current occupational status: retired Cognitive needs: No Hearing needs: Yes Vision needs: No Questionnaire Medicare Wellness Checkup What is your age?: 82 or older What gender do you identify with?: female During the past 4 weeks, how much have you been bothered by emotional problems such as feeling anxious, depressed, irritable, sad or downhearted, and blue?: not at all During the past 4 weeks, has your physical & emotional health limited your social activities with family, friends, neighbors, or groups?: not at all During the past 4 weeks, how much bodily pain have you generally had?: moderate pain During the past 4 weeks, was someone available to help you if you needed & wanted help?: yes, quite a bit During the past 4 weeks, what was the hardest physical activity you could do for at least 2 minutes?: light Can you get to places out of walking distance without help? (For eg., can you travel alone on buses, taxis or drive your car?): Yes Can you go shopping for groceries or clothes without someone's help?: No Can you prepare your own meals?: Yes Can you do your housework without help?: No Because of any health problems, do you need the help of another person with your personal care needs such as eating, bathing, dressing or getting around the house?: No Can you handle your own money without help?: Yes During the past 4 weeks, how would you rate your health in general?: good During the past 4 weeks how have things been going for you?: pretty well Are you having difficulties driving your car?: not applicable, I don't use a car Do you always fasten your seat belt when you are in a car?: yes, usually During past 4 weeks, have you been bothered by the following: never: Falling or dizzy when standing up, Sexual problems?, Trouble eating well?, Teeth or denture problems?, Problems using the telephone? and Tiredness or fatigue? Have you fallen 2 or more times in the past year?: No Are you afraid of falling?: Yes Are you a smoker?: no During the past 4 weeks, how many drinks of wine, beer, or other alcoholic beverages did you have?: no alcohol at all Do you exercise for about 20 minutes 3 or more times a week?: yes, some of the time Have you been given information to help with the following?: yes: Hazards in your house that might hurt you? and yes: Keeping track of your medications? How often do you have trouble taking medicines the way you have been told to take them?: I always take medicine as prescribed How confident are you that you can control & manage most of your health problems?: very confident What is your race?: White Mini Mental State Exam (MMSE) Orientation What is the (year) (season) (date) (day) (month)?: year, season, date, day and month Where are we (state) (county) (town or city) (hospital) (floor)?: state, county, town or city, hospital/clinic and floor Registration Name of 3 unrelated objects clearly and slowly, then ask patient to repeat all 3 of them. (1st repeat determines score. Make sure they can repeat all three): object 1, object 2 and object 3 Attention & Calculation (CHOOSE ONE) Spell WORLD backwards (DLROW): 5 letters Recall Ask patient to repeat the 3 items from question #3.: object 1, object 2 and object 3 Language Show patient a wristwatch & ask what it is. Repeat for pencil.: watch and pencil Ask the patient to repeat the phrase 'No ifs, ands, or buts' after you.: correct Ask the patient to 'take a piece of paper with their right hand' 'fold paper in half' 'place paper on floor': take paper in right hand, fold paper in half and place paper on floor Print the sentence 'CLOSE YOUR EYES' on a piece. If patient actually closes eyes then score.: followed written direction Give patient a blank piece of paper & ask to write a sentence. Score if it contains a noun & verb.: sentence contains subject and verb Score Score: 29 Activity of Daily Living Bathing - sponge bath, tub bath or shower: receives no assistance (gets in/out by self, if usual bathing means Dressing - getting clothes from closets & drawers, including inner/outer garments & fasteners.: gets clothes & gets completely dressed without help Toileting - going to the 'toilet room' for urine/bowel elimination & cleaning self/arranging clothes: goes to toilet room, cleans self, arranges clothes without help Transfer: moves in & out of bed and chair without help (may use support object) Continence: controls urination/bowel movements completely by self Feeding: feeds self without help Total Score: 0 Information obtained from: informant Using telephone: independent Traveling: needs assistance Shopping: dependent Preparing meals: independent Housework: dependent Taking medicine: independent Managing money: independent PHQ-9 Over the last 2 weeks, how often have you been bothered by any of the following problems? 1. Little interest or pleasure in doing things: not at all 2. Feeling down, depressed, or hopeless: not at all 3. Trouble falling or staying asleep, or sleeping too much: not at all 4. Feeling tired or having little energy: not at all 5. Poor appetite or overeating: not at all 6. Feeling bad about yourself - or that you are a failure or have let yourself or your family down: not at all 7. Trouble concentrating on things, such as reading the newspaper or watching television: not at all 8. Moving or speaking so slowly that other people could have noticed. Or the opposite - being so fidgety or restless that you have been moving around a lot more than usual: not at all 9. Thoughts that you would be better off or of hurting yourself in some way: not at all Total score: 0 Depression Screening Interpretation: Negative Depression Screening Done: Yes Source: Developed by Drs. Mukesh Rice, Sravani Ramirez, Martin Pdagett and colleagues, with an educational faisal from [facility]. Review of Systems Const All systems reviewed & are unremarkable except as noted in HPI and below Reports no additional complaints Eyes Reports no additional complaints ENT Reports no additional complaints Card Reports no additional complaints Resp Reports no additional complaints GI Reports no additional complaints Reports no additional complaints Musc Reports no additional complaints Physical Exam Vital Signs: Last Vital Signs Pulse 88 01/01/24 13:35 BP 136/86 01/01/24 13:35 Pulse Ox 98 01/01/24 13:35 Oxygen Delivery Method Room Air 01/01/24 13:35 BMI result Body Mass Index 29.9 Const General: no acute distress HEENT Head: Yes normal to inspection Eyes General: appearance normal, both eyes and all related structures Neck Neck: Yes no lymphadenopathy and Yes supple Resp Effort & Inspection: normal respiratory effort Auscultation: clear to auscultation bilaterally Cardio Rhythm: regular rhythm Heart sounds: S1 normal heart sound present and S2 normal heart sound present GI Inspection: Yes normal to inspection Palpation (GI): Soft to palpation Percussion: Yes normal to percussion Auscultation: normal bowel sounds Extrem General: Yes no clubbing, cyanosis or edema Assessment & Plan Assessment & Plan (1) S/P lumbar fusion: Code(s): Z98.1 - Arthrodesis status Plan: Follow-up with ortho (2) HTN (hypertension): Code(s): I10 - Essential (primary) hypertension Plan: cont Amlodipine (3) Hyperlipidemia: Comment: Refused taking medications, Code(s): E78.5 - Hyperlipidemia, unspecified Plan: Continue low-cholesterol diet (4) Annual physical exam: Code(s): Z00.00 - Encounter for general adult medical examination without abnormal findings Plan: Well-balanced diet regular physical activity discussed with the patient she will return for fasting blood work (5) Erosive gastritis: Comment: EDG 05/26, secondary to NSAIDs, on PPI Code(s): K29.60 - Other gastritis without bleeding Plan: Continue PPI and avoid NSAIDs, check CBC and iron (6) Vitamin D deficiency: Code(s): E55.9 - Vitamin D deficiency, unspecified Plan: Continue vitamin-D supplement check the level Orders: Orders IRON PROFILE Today E55.9 - Vitamin D deficiency, unspecified, E78.5 - Hyperlipidemia, unspecified, I10 - Essential (primary) hypertension, Z00.00 - Encounter for general adult medical examination without abnormal findings TSH reflex Free T4 Today E55.9 - Vitamin D deficiency, unspecified, E78.5 - Hyperlipidemia, unspecified, I10 - Essential (primary) hypertension, Z00.00 - Encounter for general adult medical examination without abnormal findings Vitamin D 25-OH Total Today E55.9 - Vitamin D deficiency, unspecified, E78.5 - Hyperlipidemia, unspecified, I10 - Essential (primary) hypertension, Z00.00 - Encounter for general adult medical examination without abnormal findings Comprehensive [place]. Panel Fast Today E55.9 - Vitamin D deficiency, unspecified, E78.5 - Hyperlipidemia, unspecified, I10 - Essential (primary) hypertension, Z00.00 - Encounter for general adult medical examination without abnormal findings Lipid Panel Today E55.9 - Vitamin D deficiency, unspecified, E78.5 - Hyperlipidemia, unspecified, I10 - Essential (primary) hypertension, Z00.00 - Encounter for general adult medical examination without abnormal findings Quality Reporting (2020) Depression/Bipolar (159/160/161/177) PHQ-9: Total score: 0 Coding Level of Care Code Medicare Subsequent (G0439) Diagnoses S/P lumbar fusion Z98.1 HTN (hypertension) I10 Hyperlipidemia E78.5 Annual physical exam Z00.00 Erosive gastritis K29.60 Vitamin D deficiency E55.9 CPT Codes Advance Care Planning - Advance Care Planning discussion: On file, no changes ([id number]) Advance Care Planning - Time spent: 1-15 minutes, on File ([id number]) Advance Care Planning Advance Care Planning discussion: On file, no changes Forms completed: Health Care Proxy and Comfort care/DNR Time spent: 1-15 minutes, on File
== END 2024-01-01 14:12 | disposition home or self-care (01) ==
PROVIDERS: Visit Provider Internal Medicine
DX: Z00.00 Encounter for general adult medical examination without abnormal findings (principal); Z98.1 Arthrodesis status; I10 Essential (primary) hypertension; E78.5 Hyperlipidemia, unspecified; K29.60 Other gastritis without bleeding; E55.9 Vitamin D deficiency, unspecified
CPT/HCPCS: 1123F; G0439

== ENCOUNTER 2024-01-02 06:36 | Outpatient (REF) | payer MEDICARE, SELFPAY ==
[2024-01-02 10:22] LABS: MANUAL DIFF FLAG NO
[2024-01-02 10:40] LABS: Basophils Percent Auto 0.5 % (0-2); Eosinophils Absolute Auto 0.2 X10*3/uL (0.0-0.4); Eosinophils Percent Auto 3.3 % (0-4); Hematocrit 39.8 % (37.0-47.0); Hemoglobin 13.7 g/dl (12.0-16.0); Imm Gran Abs Auto 0.01 X10*3/uL (0.00-0.03); Imm Gran Pct Auto 0.2 % (0.0-0.4); Lymphocytes Absolute Auto 2.6 X10*3/uL (1.2-4.9); Lymphocytes Percent Auto 46.3 % (20-40); Mean Corpuscular HGB Conc 34.4 g/dl (31.0-35.0); Mean Corpuscular Hemoglobin 31.3 pg (27.0-33.0); Mean Corpuscular Volume 90.9 fL (80.0-98.0); Mean Platelet Volume 9.7 fL (9.4-12.3); Monocytes Absolute Auto 0.6 X10*3/uL (0.1-1.2); Monocytes Percent Auto 10.9 % (2-11); Neutrophils Absolute Auto 2.1 x10*3/uL (2.0-8.3); Neutrophils Percent Auto 38.8 % (45-73); Platelet Count 286 X10*3/uL (160-400); Red Blood Count 4.38 X10*6/uL (4.20-5.50); White Blood Count 5.5 X10*3/uL (4.8-10.8)
[2024-01-02 11:07] LABS: Alanine Aminotransferase 15 U/L (0-31); Albumin Level 4.2 g/dL (3.5-5.0); Alkaline Phosphatase 107 U/L (39-117); Anion Gap 12 (12-20); Aspartate Amino Transferase 18 U/L (5-31); Bilirubin Total 0.8 mg/dL (0.0-1.0); Blood Urea Nitrogen 19 mg/dL (9-16); Carbon Dioxide 29 mmol/L (22-29); Chloride 103 mmol/L (96-108); Cholesterol 239 mg/dL (<200); Estimated Glomerular Filt Rate > 60; Glucose Fasting 91 mg/dL (60-99); HDL Cholesterol 49 mg/dL (>40); Iron 106 mcg/dL (30-160); LDL Cholesterol Calculated 166 mg/dL (<100); Percent Iron Saturation 29 % (15-50); Potassium 3.9 mmol/L (3.3-5.1); Sodium 140 mmol/L (135-145); Total Iron Binding Capacity 362 mcg/dL (228-428); Total Protein 7.1 g/dL (6.5-8.0); Triglycerides 121 mg/dL (<150); Unsaturated Iron Binding 256 ug/dL
[2024-01-02 11:10] LABS: TSH reflex Free T4 4.48 uIU/mL (0.32-4.0); Vitamin D 25-OH Total 45.4 ng/mL (>30)
[2024-01-02 11:51] LABS: Free T4 (Free Thyroxine) 0.89 ng/dL (0.71-1.85)
== END 2024-01-02 06:37 | disposition home or self-care (01) ==
LOC: HO.HMGCLDS 06:36
PROVIDERS: PCP Internal Medicine; Visit Provider Internal Medicine
DX: Z00.00 Encounter for general adult medical examination without abnormal findings (principal); I10 Essential (primary) hypertension; D64.9 Anemia, unspecified; E55.9 Vitamin D deficiency, unspecified; E78.5 Hyperlipidemia, unspecified; R73.9 Hyperglycemia, unspecified
CPT/HCPCS: 36415; 80053; 80061; 82306; 83540; 84439; 84443; 85025

== ENCOUNTER 2024-01-08 16:29 | Outpatient (REF) | payer MEDICARE, SELFPAY ==
--- NOTE | ~2024-01-08 | CT_ITS ---
EXAMINATION: CT LUMBAR SPINE WITHOUT CONTRAST CLINICAL INFORMATION: Low back pain, unspecified, postoperative. COMPARISON: No prior CT available. MRI lumbar 02/24/2023. X-ray lumbar 11/16/2023. TECHNIQUE: Spiral noncontrast CT imaging of the lumbar spine was performed from T12 through the symphysis pubis. Sagittal, coronal, and thin section axial reformatted images were constructed from the axial data set. This CT examination was performed using dose optimization techniques as appropriate, variously including the following: *Automated exposure control *Adjustment of mA and/or kV according to patient size (this includes techniques or standardized protocols for targeted exams where dose is matched to indication/reason for exam; i.e. extremities or head) *Use of iterative reconstruction technique DLP; 667 mGy-cm FINDINGS: POSTOPERATIVE FINDINGS: -Posterior and anterior fusion construct in place. -Transpedicular screw in the left aspect of L3. No evidence of loosening. -Bilateral transpedicular screws in the superior aspect of L4, of which the left demonstrates periscrew lucencies highly suggestive of loosening. -Right transpedicular screw present in L5 without evidence of loosening. Empty screw tract in the left aspect of L5. -Posterior L4-5 facets are fused with bone graft. -Laminectomy changes posteriorly at L4. -Anterior fusion cage present at L3-4, without clear evidence of bony fusion through the device. -Otherwise hardware appears intact. CORONAL ALIGNMENT: -Right convex scoliosis with estimated Moon angle of 20 degrees, apex at L3. -3 mm left lateral listhesis of L2 on L3. -Estimated 9 mm right lateral listhesis of L4 on L5. -There are right lateral pelvic tilt. SAGITTAL ALIGNMENT: -Normal lordosis. -3 mm retrolisthesis of L1 on L2. -4 mm retrolisthesis of L3 on L4. -6 mm anterolisthesis L4 on L5. -2 mm retrolisthesis L5 on S1. LUMBOSACRAL JUNCTION: Normal. There are 5 [id number]-ses-[id number] lumbar-type vertebral bodies. VERTEBRAL BODIES/BONE MARROW: -There are sclerotic type endplate changes present at L1 to, and L3-4. -There is mild superior endplate depression of L3, chronic. -Prominent Schmorl's node in the superior aspect of T12, and inferior endplate of L2. -No abnormal infiltrative bone marrow findings. No lytic or blastic bone lesion. No acute fractures. Bone graft harvest site from the posterior left medial iliac bone. DISCS: -Disc vacuum phenomenon present at T12-L3, and L5-S1, with associated severe disc space narrowing most notable at L1-2 and L5-S1. SPINAL CANAL: No abnormal developmental findings. Several levels of acquired stenosis. See below. Axial Disc Space Images: T12-L1: Shallow diffuse disc bulging. Mild facet arthropathy bilaterally. No significant central canal or neural foraminal narrowing. L1-L2: Disc ridge complex secondary to retrolisthesis, moderate to advanced degenerative facet changes left greater than right with facet osteophytes and dorsal subluxations, ligamentous thickening/infolding, with combination of findings resulting in left greater than right subarticular recess narrowing, mild central canal narrowing, severe right and moderate left neural foraminal narrowing. L2-L3: Disc ridge osteophytic complex present diffusely, asymmetrically left prominent, moderate to advanced degenerative facet changes right greater than left with dorsal subluxations, ligamentous thickening/infolding, with findings resulting in mild central canal stenosis, severe left subarticular recess stenosis, and severe left neural foraminal stenosis. There is moderate right neural foraminal narrowing. L3-L4: This level limited by streak artifact from hardware. Retrolisthesis results in significant effacement of the ventral thecal sac, along with severe left greater than right hypertrophic degenerative facet changes with dorsal subluxations, prominent ligamentous thickening/infolding, with combination findings resulting in moderate central canal stenosis, severe left and moderate right subarticular recess stenosis, and moderate to severe left greater than right neural foraminal encroachment. L4-L5: Retrolisthesis, partial laminectomies right greater than left, severe degenerative facet change left greater than right. Mild central stenosis, mild left subarticular recess stenosis, and mild left neural foraminal narrowing. L5-S1: Shallow diffuse disc osteophytic ridge complex, [id number]-bbgdvrty hypertrophic facet changes bilaterally, however no significant central canal stenosis. There is moderate right and mild left neural foraminal narrowing. IMAGED SI JOINTS: -Mxyy-ie-ttrvkmzp degenerative changes. PARAVERTEBRAL AND INCLUDED EXTRASPINAL SOFT TISSUES: Aorta is heavily calcified but not aneurysmal. Iliac arteries are calcified and ectatic as well as tortuous. Atrophy of the paraspinous musculature inferior to L4. CT/CT lumbar spine wo IV con IMPRESSION: 1. Spinal fusion as detail, both anterior and posterior components. There appears to be loosening of the left L4 transpedicular screw. Hardware otherwise appears intact. 2. Multilevel advanced spondylosis as described, with a right convex scoliosis measuring 20 degrees. 3. L4-5 facets are fused with bone graft. 4. Additional findings as detailed in the body of report. See above for axial disc space imaging findings. Electronically signed by: Nav Zelaya MD 02/11/2024 02:38 PM EDT
== END 2024-01-08 16:30 | disposition home or self-care (01) ==
LOC: HO.CT 16:29
PROVIDERS: Visit Provider Physician Assistant
DX: M54.50 Low back pain, unspecified (principal)
CPT/HCPCS: 72131

== ENCOUNTER → 2024-01-08 16:31 | Outpatient (BNV) | payer MEDICARE, SELFPAY | PROVIDERS: Visit Provider Radiology Diagnostic Radiology | DX: M54.50 Low back pain, unspecified (principal) | CPT/HCPCS: 72131 ==

== ENCOUNTER 2024-02-22 14:12 | Outpatient (AMB) | payer MEDICARE, SELFPAY ==
--- NOTE | 2024-02-22 14:18 | A.SPINEOV_ITS ---
Intake Visit Reasons: F/u CT and Xray results Intake Note: Ms. Barrera is here today to F/u on her CT/Xray results. Network Controller Required: No Allergies ampicillin [AMPICILLIN] Allergy (Severe, Verified 01/01/24 13:42) swelling in face/itchy throat tetracycline [TETRACYCLINE] Allergy (Severe, Verified 01/01/24 13:42) itchy throat/swelling in face Assessment & Plan Assessment & Plan (1) Scoliosis (and kyphoscoliosis), idiopathic: Code(s): M41.20 - Other idiopathic scoliosis, site unspecified Category: Medical Plan Mrs Barrera is back today to discuss her ongoing back pain. We did a L3-4 oblique lumbar interbody fusion as an extension from a previous fusion L4-5. The patient had globus Creo instrumentation placed by her previous surgeon. Unfortunately the locking cap remover failed and we were only able to remove the left side so we extended the construct up on the left side at L3-4 but left the L4-[address] After surgery she has been having ongoing pain which has been getting severely worse with standing and walking. When she is sitting she does have back pain. It is primarily on the left, over the mid to lower lumbar area. We had been following her and Dr. Shaw and I had seen her with regard to progressive scoliotic curvature developing above her construct. We are hoping with time maybe some how things would improve a little bit but over the last few months things have only continue to get worse. Thankfully she has no pain shooting down her legs. The primary issue here is the inability to stand and walk secondary to back pain and being unable to hold herself up. She and her daughter both agree that she is worse off than she was before surgery. Her CT scan done here at [facility] was reviewed in addition to her x-rays and Dr. Shaw and I met with her together and explained to her that the L1-2 and L2-3 appear to be developing adjacent segment disease and increased scoliotic curvature. The treatment for this would be extension of the fusion not only to the L1-2 and L2-3 regions, but because of the junctional thoracic component, we would also need to place pedicle screws up to the lower thoracic spine. We would like a scoliosis survey to better assess her in a standing position as well as AP lateral with flexion-extension views. She also reports today that she has been having some spontaneous fecal incontinence and some altered sensation when she is wiping. We will get a lumbar MRI to rule out that the scoliotic curvature as not cause some kind of compression on her conus. We will see her back in formalize the plan once this is completed and the x-rays are done. Total amount of time spent in this visit was 20 minutes in discussion of symptoms, CT scan imaging results and subsequent plan of care Boo Shaw MD,PhD [facility] Orders: Orders XR lumbar spine 4V min Today M41.20 - Other idiopathic scoliosis, site unspecified MR lumbar spine wo con Today M54.50 - Low back pain, unspecified XR scoliosis survey Today M41.20 - Other idiopathic scoliosis, site unspecified Coding Level of Care Code Est Pt Level 3 (06581) Diagnoses Scoliosis (and kyphoscoliosis), idiopathic M41.20
== END 2024-02-22 15:40 | disposition home or self-care (01) ==
PROVIDERS: PCP Internal Medicine; Visit Provider Physician Assistant
DX: M41.20 Other idiopathic scoliosis, site unspecified (principal)
CPT/HCPCS: 99213

== ENCOUNTER → 2024-02-22 14:12 | Outpatient (BNVA) | payer MEDICARE, SELFPAY | PROVIDERS: Visit Provider Physician Assistant | DX: M41.20 Other idiopathic scoliosis, site unspecified (principal) | CPT/HCPCS: 99212 ==

== ENCOUNTER 2024-03-14 16:17 | Outpatient (REF) | payer MEDICARE, SELFPAY ==
--- NOTE | ~2024-03-14 | MR_ITS ---
EXAMINATION: MR LUMBAR SPINE WITHOUT CONTRAST CLINICAL INFORMATION: Low back pain, unspecified, history of spinal fusion L3-L5. COMPARISON: CT lumbar 01/08/2024. MRI lumbar 02/24/2023. X-ray lumbar 11/16/2023. TECHNIQUE: Multiplanar multisequence MR imaging of the lumbar spine was done without IV contrast. Examination was performed on a 1.5 Sol Siemens magnet, utilizing standard sequences. FINDINGS: -Status post surgical fusion in place consisting of left transpedicular screw L3, bilateral pedicle screws L4, and right-sided transpedicular screw at L5. Empty screw tract the left aspect of L5. -Posterior bars connecting the left L3-4 screws, and similarly on the right contacting the L4-5 screws. Hardware creates significant susceptibility artifact, obscuring significant portions of the adjacent bony and soft tissues. -Disc graft in place at L3-4, cage type. Associated susceptibility artifact. CORONAL ALIGNMENT: -There is an approximate 20 degree right convex scoliosis, apex at L3-4. -3 mm left lateral listhesis of L2 on L3, 9 mm right lateral listhesis of L4 on L5, and there is mild rightward lateral pelvic tilt. SAGITTAL ALIGNMENT: - Normal lordosis. -3 mm retrolisthesis of L1 on L2. -4 mm retrolisthesis L3 on L4. -6 mm anterolisthesis L4 on L5. -2 mm retrolisthesis L5 on S1. LUMBOSACRAL JUNCTION: -Normal. There are 5 zgc-zyi-fkpefyx lumbar-type vertebral bodies. VERTEBRAL BODIES/BONE MARROW: -There are no compression deformities. Limited evaluation of the marrow signal at L3-4 due to susceptibility artifact and loss of fat suppression. -No gross pathological bone marrow signal abnormality. -No gross bone marrow edema within limitations from susceptibility. -There are fatty type endplate changes with mild associated endplate edema at L1-2, there are Schmorl's nodes in the superior endplate of T12, and plates of L1-L2, and inferior endplate of L2. DISCS: -Severe loss of disc height and signal with disc vacuum phenomenon T11-T12, T12-L1, L1-L2, L4-5, and L5-S1. -Disc cage prosthesis L3-4. -Moderate loss of height and signal L2-3. SPINAL CANAL: -No abnormal developmental findings. CONUS MEDULLARIS: -Terminates at T12-L1. Morphology and signal is normal. INTRADURAL NERVE ROOTS: - Normal in distribution. No evidence of clumping or mass. Axial Disc Space Images: T12-L1: Shallow diffuse disc bulging. Mild facet arthropathy bilaterally. No significant central canal or neural foraminal narrowing. L1-L2: Disc ridge complex secondary to retrolisthesis, moderate to advanced degenerative facet changes left greater than right with facet osteophytes and dorsal subluxations, ligamentous thickening/infolding, with combination of findings resulting in left greater than right subarticular recess narrowing with contact and minimal deflection of the left greater than right traversing L3 roots. There is mild central canal narrowing, severe right and moderate left neural foraminal impingement. L2-L3: Disc ridge osteophytic complex present diffusely, asymmetrically left prominent, moderate to advanced degenerative facet changes right greater than left with dorsal subluxations, ligamentous thickening/infolding, dorsal epidural lipomatosis, with findings resulting in moderate. Left central canal stenosis, severe left subarticular recess stenosis, and severe left neural foraminal stenosis. There is moderate right neural foraminal narrowing. -Transpedicular screw within the left aspect of L3. L3-L4: This level limited by susceptibility artifact from hardware. Disc prosthesis/cage in place ventrally. Retrolisthesis results in significant effacement of the ventral thecal sac, along with severe left greater than right hypertrophic degenerative facet changes with dorsal subluxations, prominent ligamentous thickening/infolding, dorsal epidural lipomatosis, with overall combination of findings resulting in moderate to severe central canal stenosis, and severe left and moderate right subarticular recess stenosis. There is contact and likely impingement of the left greater than right traversing L4 nerve roots. There is moderate to severe left and moderate right neural foraminal encroachment. L4-L5: Retrolisthesis, partial laminectomies right greater than left, with hardware susceptibility completely obscuring the right facet joint. Severe degenerative hypertrophic facet changes on the left (per the recent CT also on the right). There is mild to moderate central stenosis, moderate left subarticular recess stenosis, with contact and minimal posterior deflection of the traversing left L5 roots. There is moderate right greater than left neural foraminal narrowing. L5-S1: Shallow diffuse disc osteophytic ridge complex, superimposed central subtle disc extrusion extending into the paracentral regions. There are asvm-fk-ulguswno hypertrophic facet changes bilaterally, however no significant central canal stenosis. There is mild to moderate left and mild right subarticular recess narrowing. There is moderate to severe right and moderate left neural foraminal narrowing. IMAGED SI JOINTS: -Zhpm-ou-ororhfdn degenerative changes. PARAVERTEBRAL AND INCLUDED EXTRASPINAL SOFT TISSUES: -Aorta is nonaneurysmal. -Atrophy of the paraspinous musculature most notable inferior to L4. -Simple cyst in the right posterior kidney. -No retroperitoneal adenopathy noted. MR/MR lumbar spine wo con IMPRESSION: 1. Status post dorsal fusion L3-L5 as discussed, with disc cage/prosthesis L3-4 anterior disc space. Associated hardware are generated susceptibility artifact. 2. Relatively advanced degenerative spondylosis, multilevel, with associated right convex scoliosis. 3. By MR, moderate to severe central canal stenosis at L3-4, with severe left and moderate right subarticular recess stenosis. Moderate to severe left and moderate right neural foraminal stenosis. 4. No additional levels of high-grade central canal stenosis. Multilevel foraminal narrowing as discussed. 5. Remaining axial disc space findings as discussed above. These appear very similar to the axial disc space findings as reported on the recent CT examination. 6. See the body of the report for additional details. Electronically signed by: Nav Zelaya MD 04/11/2024 09:19 AM [facility] FUENETS
== END 2024-03-14 16:18 | disposition home or self-care (01) ==
LOC: HO.MRI 16:17
PROVIDERS: Visit Provider Physician Assistant
DX: M54.50 Low back pain, unspecified (principal)
CPT/HCPCS: 72148

== ENCOUNTER → 2024-03-14 16:17 | Outpatient (BNV) | payer MEDICARE, SELFPAY | PROVIDERS: Visit Provider Radiology Diagnostic Radiology | DX: M54.50 Low back pain, unspecified (principal) | CPT/HCPCS: 72148 ==

== ENCOUNTER 2024-04-18 09:18 | Outpatient (AMB) | payer MEDICARE, SELFPAY ==
--- NOTE | 2024-04-18 09:20 | HO.SPINEOV ---
Intake Visit Reasons: MRI follow up Intake Note: Ms. Barrera is here today to F/u on her MRI results. Info Analyst Required: No Allergies ampicillin [AMPICILLIN] Allergy (Severe, Verified 04/18/24 09:20) swelling in face/itchy throat tetracycline [TETRACYCLINE] Allergy (Severe, Verified 04/18/24 09:20) itchy throat/swelling in face Assessment & Plan Assessment & Plan (1) Scoliosis (and kyphoscoliosis), idiopathic: Code(s): M41.20 - Other idiopathic scoliosis, site unspecified Category: Medical Plan: Dear colleague, On April 18, 2024, I saw for follow-up Crystal Barrera for ongoing back pain with walking and standing. The patient is severe and interferes with her daily activities. She can not stand or walk for any prolonged time due to the pain. She denies radiation down her legs. Imaging reviews progressive lumbar scoliosis above the previous L3-4 fusion that is most likely responsible for symptoms. A scoliosis series was obtained today that shows the scoliosis and coronal plane where there is a lateral listhesis above the fusion causing deformity with the spine falling towards the left side. The curve becomes normal at around T 10. Unfortunately, I think we have to correct the scoliosis and extend the instrumentation to the thoracic area to address her progressive pain. I discussed the proposed procedure and she wants to proceed. She is tentatively scheduled for the end of June. She will come back 1 more time to get a more in-depth discussion about the procedure and to review a lateral view of the spine that was not performed today. I spent 30 minutes in his consult to review imaging and discussing plan of care. Bran Shaw MD, PhD Spine Fellowship Trained Neurosurgeon Director, [facility] Orders: Orders XR scoliosis survey Today M41.20 - Other idiopathic scoliosis, site unspecified XR scoliosis survey Today M41.20 - Other idiopathic scoliosis, site unspecified Coding Level of Care Code Est Pt Level 4 (91440) Diagnoses Scoliosis (and kyphoscoliosis), idiopathic M41.20
== END 2024-04-18 11:23 | disposition home or self-care (01) ==
PROVIDERS: Visit Provider Neurological Surgery
DX: M41.20 Other idiopathic scoliosis, site unspecified (principal)
CPT/HCPCS: 99214

== ENCOUNTER 2024-04-18 09:18 | Outpatient (REF) | payer MEDICARE, SELFPAY ==
--- NOTE | ~2024-04-18 | XR_ITS ---
EXAMINATION: XR SCOLIOSIS CLINICAL INFORMATION: M41.20 - Other idiopathic scoliosis, site unspecified COMPARISON: Lumbar spine radiographs 11/16/2023 TECHNIQUE: A single PA view of the thoracolumbar spine is obtained. FINDINGS: Status post fusion at L3-L4 on the left at L4-L5 on the right with pedicle screws and rods as well as a disc spacer at the L3-L4 level. Residual scoliosis with a left convex thoracolumbar curvature measuring 20 degrees and a right convex lumbar curvature measuring 22 degrees. Negative sagittal balance of 2.7 cm. A moderate hiatal hernia is identified. XR/XR scoliosis survey IMPRESSION: 1. Scoliosis as above with instrumentation without evidence of hardware failure seen. 2. Moderate hiatal hernia is identified. Electronically signed by: Landon Patel MD 05/02/2024 05:01 PM [facility] FUENT[facility]
== END 2024-04-18 09:19 | disposition home or self-care (01) ==
LOC: HO.XRAY 09:18
PROVIDERS: PCP Internal Medicine; Visit Provider Neurological Surgery
DX: M41.20 Other idiopathic scoliosis, site unspecified (principal)
CPT/HCPCS: 72082; 72110; 99212

== ENCOUNTER 2024-05-14 13:59 | Outpatient (AMB) | payer MEDICARE, SELFPAY ==
--- NOTE | 2024-05-14 14:02 | A.SPINEOV_ITS ---
Intake Visit Reasons: F/u and Discuss Surgical Options Intake Note: Ms. 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 As you know, she suffering from pain that is severe and interfering with her daily activities. She can not stand or walk for any prolonged time due to the pain. She denies radiation down her legs. Imaging re views progressive lumbar scoliosis above the previous L3-4 fusion responsible for the increase in symptoms. A scoliosis series was obtained today that shows the scoliosis and coronal plane where there is a lateral listhesis at L2-3, above the fusion causing deformity with the spine falling towards the left side but also collapse of the L1-L2 disc space that is adding to the scoliotic curve.. The curve becomes normal at around T 10. Today we had an extensive discussion about the surgical approach The surgical plan will be to perform an L1-L2, L2-L3 oblique lateral lumbar interbody fusion(Transkambin) followed by removal of L3-L5 posterior instrumentation and posterior instrumented fusion T11-L5. I might try an oblique lumbar interbody fusion at L2-3, which instead of the OLLIF, which has the advantage of getting a longer and larger cage in the disc space. The surgery is planned for 06/18/2023. I ordered a LSO brace with thoracic extension that she will need postoperatively. She also requested to have rehab postoperatively, which seems indicated after this type of surgery. I spent 35 minutes in his consult to review the images in detail with the patient and her daughter, answering questions and discuss the surgical approach. 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
--- OUTSIDE RECORDS SUMMARY | 2024-05-15 02:40 | XMS_ITS | Patient Health Record ---
Author Organization [facility] Address [address] [place] [address] Care Team Providers Care Ladle Watcher Name Role Phone Ashleigh Grullon MD Primary Care Provider Mukesh Taveras [phone] ALLERGIES Allergen (clinical drug ingredient) Drug/Non Drug Allergy documented on EMR Reaction Allergy Type Onset Date Status tetracycline Tetracycline HCl Unknown Drug Allergy Active ampicillin Ampicillin Unknown Drug Allergy Activ e REASON FOR REFERRAL No Information MEDICATIONS Medication SIG (Take, Route, Frequency, Duration) Notes Start Date End Date Status amLODIPine Besylate 5 MG Oral for 60 Active Celecoxib 200 MG Oral for 30 A ctive Multivitamin - 1 tablet Orally Once a day for 30 day(s) Active Omeprazole 40 MG 1 Oral Act dinh tylenol Active SOCIAL HISTORY Sex Assigned At : Social History Observation Description Sex Assigned At Unknown PROBLEMS Problem Type ICD Code Onset Dates Problem Status W/U Status Risk SNOMED Code Notes Problem Acute gastritis with bleeding (K29.01) Active confirmed Acute hemorrhagic gastritis (4362341) Problem Diverticulosis of large intestine without perforation or abscess without bleeding (K57.30) Active confirmed Diverticul ar disease of colon (942678333) Problem Iron deficiency anemia (D50.9) Active confirmed Iron deficien cy anemia (23268781) Problem Hiatal hernia (K44.9) Active confirmed Hiatal hernia (29925484) Problem Chronic diarrhea (K52.9) Active confirmed Chronic diarrhea (782792881) Problem Chronic gastritis with bleeding, unspecified gastritis type (K29.51) Active confirmed Chronic antral gastritis with hemorrhage (disorder) (851212518) Problem Gastric ulcer (K25.9) Active confirmed Gastric ulcer (673667814) Problem Gastritis, erosive (K29.60) Active confirmed Erosive gastritis (97646508073640 00) VITAL SIGNS Temperature 96.4 degrees Fahrenheit 08/28/2023 Blood pressure diastolic 00 mm Hg 08/28/2023 Height 63.5 in 08/28/2023 Blood pressure systolic 00 mm Hg 08/28/2023 Weight 150 lbs 08/28/2023 BMI 26.15 kg/m2 08/28/2023 Encounters Encounter Location Date Provider Diagnosis [facility] [address] [place] [address] 08/28/2023 Mukesh Bearden Iron deficiency anem ia D50.9 ; Hiatal hernia K44.9 ; Chronic gastritis with bleeding, unspecified gastritis type K29.51 and Chronic diarrhea K52.9 ASSESSMENTS Encounter Date Diagnosis Assessment Notes Treatment Notes Treatment Clinical Notes 08/28/2023 Iron deficiency anemia (ICD-10 - D50.9) 08/28/2023 Hiatal hernia (ICD-10 - K44.9) 08/28/2023 Chronic gastritis with bleeding, unspecified gastritis type (ICD-10 - K29.51) 08/28/2023 Chronic diarrhea (ICD-10 - K52.9) Eat bland diet until diarrhea is better. Call if need be PLAN OF TREATMENT Future Test Test Name Order Date UPPER GI ENDOSCOPY 02/26/2014 COLONOSCOPY 02/26/2014 Insurance Providers Payer Name Payer Address Payer Phone Subscriber Number Group Number Insured Name Patient Relationship to Insured Coverage Start Date Coverage End Date MEDICARE OF [place] [address] [place] [id number] SRINIVASAN ALVARAOD Self - patient is the insured [facility] [employer] [address] [place] [address] [id number] SRINIVASAN ALVARADO Self - patient is the insured MEDICAL (GENERAL) HISTORY Medical History History ICD Code Denies NM,DM,CVA,Lung disease,renal dise ase Colonoscopy in 10/2001 with o nly hyperplastic polyps, sigmoid diverticulosis, and internal hemorrhoids EGD in 10/2001 with a small H H and erosive esophagitis-had been on PPI's--bx neg for Gamboa's HTN Hyperlipidemia Upper endoscopy in 2013 show ed only her known hiatal hernia but no other abnormalities Colonoscopy in 2013 revealed only a hype rplastic polyp Admission in April for significant anemia with a hemoglobin of 7.2 and iron deficiency. She had been on NSAIDs at that time. She received 3 units of blood. She underwent upper endoscopy and colonoscopy with a finding of only her known hiatal hernia and associated gastritis. Gastric biopsies were negative for H. pylori. Things resolved with the use of omeprazole, avoidance of NSAIDs, and some temporary use of oral iron. Surgical History Surgery Date(Month/Year) rotator cuff tear repair-right 09/2013 back surgery disc 09/2011 dilatation and curettage eye surgery appendectomy total knee replacement left 2021 total hip replacement left [address] Shaw 07/2023
--- OUTSIDE RECORDS SUMMARY | 2024-05-15 02:40 | XMS_ITS ---
Author Organization [facility] Address [address] [place] [address] Care Team Providers Care Reception Agent Name Role Phone Ashleigh Grullon MD Primary Care Provider Mukesh Taveras [phone] ALLERGIES Allergen (clinical drug ingredient) Drug/Non Drug Allergy documented on EMR Reaction Allergy Type Onset Date Status tetracycline Tetracycline HCl Unknown Drug Allergy Active ampicillin Ampicillin Unknown Drug Allergy Activ e REASON FOR VISIT Patient presents today for gerd MEDICATIONS Medication SIG (Take, Route, Frequency, Duration) Notes Start Date End Date Status amLODIPine Besylate 5 MG Oral for 60 Active Celecoxib 200 MG Oral for 30 A ctive Multivitamin - 1 tablet Orally Once a day for 30 day(s) Active Omeprazole 40 MG 1 Oral Act dinh tylenol Active PROBLEMS Problem Type ICD Code Onset Dates Problem Status W/U Status Risk SNOMED Code Notes Problem Hiatal hernia (K44.9) Active confirmed Hiatal hernia (58604864) Problem Acute gastritis with bleeding (K29.01) Active confirmed Acute hemorrhagic gastritis (3452955) Problem Chronic gastritis with bleeding, unspecified gastritis type (K29.51) Active confirmed Chronic antral gastritis with hemorrhage (disorder) (775826509) Problem Chronic diarrhea (K52.9) Active confirmed Chronic diarrhea (015136070) VITAL SIGNS BMI 26.15 kg/m2 08/28/2023 Blood pressure systolic 00 mm Hg 08/28/19 24 Blood pressure diastolic 00 mm Hg 024 Height 63.5 in 08/28/2023 Temperature 96.4 degrees Fahrenheit 08/28/19 24 Weight 150 lbs 08/28/2023 Encounters Encounter Location Date Provider Diagnosis [facility] [address] [place] [address] 08/28/2023 Mukesh Bearden Iron deficiency anem ia [...] Call if need be PLAN OF TREATMENT Medication Medication Name Sig Start Date Stop Date Notes Omeprazole 40 MG 1 Oral Treatment Notes Assessment Notes Chronic diarrhea Eat bland diet until diarrhea is better. Call if need be Next Appt Details Follow Up: prn, Reason: Progress Notes * Examination Category Sub-Category Detail Notes General Examination GENERAL APPEARANCE: pleasant , well nourished, well developed, in no acute distress HEAD: EYES: sclera non-icteric EARS: NOSE: THROAT: NECK/THYROID: no cervical lymphade nopathy, neck supple HEART: S1, S2 normal CHEST: LUNGS: clear to auscultatio n bilaterally ABDOMEN: normal bowel sounds, no guarding or rigidity, no guarding or rigidity, no masses palpable, soft, nontender, nondistended NEUROLOGIC: alert and oriented SKIN: nonjaundiced, no spi fernando angiomata EXTREMITIES: no edema PERIPHERAL PULSES: BACK: BREASTS: MUSCULOSKELETAL: MALE GENITOURINARY: LYMPH NODES: RECTAL EXAM: FEMALE GENITOURINARY: ORAL CAVITY: mucosa moist
--- OUTSIDE RECORDS SUMMARY | 2024-05-15 02:40 | XMS_ITS ---
Author Organization [facility] Address [address] [place] [address] Care Team Providers Care Drafting Layout Worker Name Role Phone Ashleigh Grullon MD Primary Care Provider UnavailMukesh Mccormick [phone] REASON FOR VISIT follow up after procedure Encounters Encounter Location Date Provider Diagnosis [facility] [address] [place] [address] 04/23/2023 Mukesh Bearden PLAN OF TREATMENT No Information
== END 2024-05-14 14:38 | disposition home or self-care (01) ==
PROVIDERS: PCP Internal Medicine; Visit Provider Neurological Surgery
DX: M51.362 Other intervertebral disc degeneration, lumbar region with discogenic back pain and lower extremity pain (principal); M41.50 Other secondary scoliosis, site unspecified
CPT/HCPCS: 99214

== ENCOUNTER → 2024-05-14 13:59 | Outpatient (BNVA) | payer MEDICARE, SELFPAY | PROVIDERS: PCP Internal Medicine; Visit Provider Neurological Surgery | DX: M51.369 Other intervertebral disc degeneration, lumbar region without mention of lumbar back pain or lower extremity pain (principal); M41.50 Other secondary scoliosis, site unspecified; Z98.1 Arthrodesis status | CPT/HCPCS: 99212 ==

== ENCOUNTER 2024-06-18 06:01 | Inpatient (IN) | payer MEDICARE, SELFPAY ==
[2024-06-03 13:20] VITALS: BP 168/85; PULSE 85; RESP 16; O2SAT 97; BMI 30.6
--- NOTE | 2024-06-03 13:21 | P.CONAN_ITS ---
Documented by User: Yamel Anthony NP 06/16/24 15:33 HPI - Anesthesia Eval Consult details Narrative: 84yo F for L1-2,L3-4 Transkambin Lumbar Interbody Fusion,Removal of L3-5 Posterior Instrumentation, 06/18/23 s/p OLIF 07/2023 GA-ETT 7 (PCP cleared prior) - no issues with anesthesia No recent illness No CP/SOB with limited activity. Limited to pain PMFSH Active Problems Active Problems: All Active Problems Scoliosis due to degenerative disease of spine in adult patient (Acute) S/P lumbar fusion (Acute) Scoliosis (and kyphoscoliosis), idiopathic (Acute) Erosive gastritis (Acute) Anemia (Acute) Poor balance (Acute) Vertigo (Acute) Lumbar stenosis (Acute) Left hip pain (Acute) Low back pain (Acute) Right hip pain (Acute) Annual physical exam (Acute) Actinic keratosis (Acute) Lower back pain (Acute) Increased urinary frequency (Acute) S/P total left hip arthroplasty (Acute) History of laminectomy (Acute) Vitamin D deficiency (Acute) Hyperglycemia (Acute) HTN (hypertension) (Acute) Hyperlipidemia (Acute) Hx of mammogram (Acute) Osteoarthritis of left hip (Acute) Total knee replacement status (Acute) Past Medical History Medical History Uses roller walker Arthritis Back pain GERD (gastroesophageal reflux disease) Numbness Seasonal allergies History of blood transfusion KIPNUK (hard of hearing) GI bleed due to NSAIDs Osteoarthritis Elevated cholesterol Hyperglycemia HTN (hypertension) Lumbar stenosis Vertigo Gastritis Scoliosis (and kyphoscoliosis), idiopathic Anemia Family History Family History Father No problems noted. Mother Breast cancer Family history of problems with anesthesia: No Surgical History Surgical History Hx of spinal surgery (07/18/23) Hx of tonsillectomy History of total left knee replacement History of esophagogastroduodenoscopy (EGD) H/O colonoscopy History of lumbar laminectomy History of total left hip arthroplasty History of appendectomy H/O cataract removal with insertion of prosthetic lens History of Problems with Anesthesia: No Social History Social History (Updated 06/03/24 @ 13:44 by Angy Schmid RN) Household Members: Family Household Members Other:: sister Housing: [facility] Are you a primary respiratory care program director to a significant other at home: No Do you presently have visiting nurse or other home services: Yes (privately hired home health aide 8 hrs per week) Patient Tobacco Use Status: Former Tobacco user Tobacco use type: Cigarette e-Cigarette/Vaping Use: Never Used Use of substances other than those prescribed or required for medical reasons: No Have you been hit, kicked, punched, or otherwise hurt by someone within the past year? If so, by whom?: No Are you DNR?: No Advance Directives: Yes Advance Directives Information Provided: No Advance Directives on File: Yes Advance Directives Date on File: 10/16/22 Recently lost weight without trying: No Nutrition Risks: Surgical patient >75years Poor oral hygiene: No service: No Current occupational status: retired Cognitive needs: No Hearing needs: Yes Vision needs: No Meds Allergies Allergy/AdvReac Type Severity Reaction Status Date / Time ampicillin [AMPICILLIN] Allergy Severe swelling Verified 06/18/24 07:13 in face/itchy throat tetracycline [TETRACYCLINE] Allergy Severe itchy Verified 06/18/24 07:13 throat/swelling in face Home Medications ?Medication ?Instructions ?Recorded ?Confirmed ?Last Taken ?Type baclofen 10 mg tablet 10 mg PO BID PRN Pain 01/01/24 06/03/24 Unknown History docusate sodium 100 mg capsule 100 mg PO BID PRN Constipation 01/01/24 06/03/24 Unknown History (Colace) Exam Pertinent Lab Results Pertinent Lab Results: Lab Results 06/03/24 06/03/24 Range/Units 14:20 14:22 WBC 6.9 (4.8-10.8) X10*3/uL RBC 4.64 (4.20-5.50) X10*6/uL Hgb 14.3 (12.0-16.0) g/dl Hct 40.5 (37.0-47.0) % MCV 87.3 (80.0-98.0) fL MCH 30.8 (27.0-33.0) pg MCHC 35.3 H (31.0-35.0) g/dl RDW 13.3 (11.0-16.0) % Plt Count 263 (160-400) X10*3/uL MPV 9.9 (9.4-12.3) fL Absolute Nucleated RBC 0.000 (0.0-0.012) X10*3/uL Nucleated RBC % (auto) 0.0 (0.0-0.2) /100WBC Sodium 143 (135-145) mmol/L Potassium 3.5 (3.3-5.1) mmol/L Chloride 106 (96-108) mmol/L Carbon Dioxide 27 (22-29) mmol/L Anion Gap 14 (12-20) BUN 17 H (9-16) mg/dL Creatinine 0.81 (0.5-1.4) mg/dL Estim Creat Clear Calc 55.0 Estimated GFR > 60 Random Glucose 91 (60-115) mg/dL Calcium 9.5 (8.4-10.2) mg/dL Blood Type AB Positive Antibody Screen NEGATIVE Narrative Narrative: EKG 07/2023 Vent. Rate : 080 BPM Atrial Rate : 080 BPM P-R Int : 162 ms QRS Dur : 090 ms QT Int : 402 ms P-R-T Axes : 080 000 027 degrees QTc Int : 463 ms Normal sinus rhythm Normal ECG When compared with ECG of 12-MAR-2020 15:44, No significant change was found Airway Mallampati Class: II TM Dist: >3cm Neck ROM: Full Loose/Missing/Broken Teeth: Yes (#24 pulled, lower right molar implant, lower left molar crowned) Heart: RRR Lungs: CTAB Assessment and Plan Assessment Anesthesia Assessment: Anesthesia Plan Discussed and PAT Visit Final Anesthetic Review Family History of Problems with Anesthesia: No History of Problems with Anesthesia: No Documented by User: Brianna Loera MD 06/18/24 07:16 [facility] Past Medical History Medical History Uses roller walker Arthritis Back pain GERD (gastroesophageal reflux disease) Numbness Seasonal allergies History of blood transfusion KIPNUK (hard of hearing) GI bleed due to NSAIDs Osteoarthritis Elevated cholesterol Hyperglycemia HTN (hypertension) Lumbar stenosis Vertigo Gastritis Scoliosis (and kyphoscoliosis), idiopathic Anemia Family History Family History Father No problems noted. Mother Breast cancer Surgical History Surgical History Hx of spinal surgery (07/18/23) Hx of tonsillectomy History of total left knee replacement History of esophagogastroduodenoscopy (EGD) H/O colonoscopy History of lumbar laminectomy History of total left hip arthroplasty History of appendectomy H/O cataract removal with insertion of prosthetic lens Social History Social History (Updated 06/03/24 @ 13:44 by Angy Schmid RN) Household Members: Family Household Members Other:: sister Housing: [facility] Are you a primary respiratory care program director to a significant other at home: No Do you presently have visiting nurse or other home services: Yes (privately hired home health aide 8 hrs per week) Patient Tobacco Use Status: Former Tobacco user Tobacco use type: Cigarette e-Cigarette/Vaping Use: Never Used Use of substances other than those prescribed or required for medical reasons: No Have you been hit, kicked, punched, or otherwise hurt by someone within the past year? If so, by whom?: No Are you DNR?: No Advance Directives: Yes Advance Directives Information Provided: No Advance Directives on File: Yes Advance Directives Date on File: 10/16/22 Recently lost weight without trying: No Nutrition Risks: Surgical patient >75years Poor oral hygiene: No service: No Current occupational status: retired Cognitive needs: No Hearing needs: Yes Vision needs: No Meds Allergies Allergy/AdvReac Type Severity Reaction Status Date / Time ampicillin [AMPICILLIN] Allergy Severe swelling Verified 06/18/24 07:13 in face/itchy throat tetracycline [TETRACYCLINE] Allergy Severe itchy Verified 06/18/24 07:13 throat/swelling in face Home Medications ?Medication ?Instructions ?Recorded ?Confirmed ?Last Taken ?Type baclofen 10 mg tablet 10 mg PO BID PRN Pain 01/01/24 06/03/24 Unknown History docusate sodium 100 mg capsule 100 mg PO BID PRN Constipation 01/01/24 06/03/24 Unknown History (Colace) Exam Airway Mallampati Class: II (caps) Assessment and Plan Final Anesthetic Review NPO: Yes ASA Class: II Final Preanesthetic Review: No Changes in Pt Med Stat, Meds/Allgs Chart Reviewed and Consent Obtained/Reviewed Patient Risk: Intermediate Procedure Risk: Intermediate Anesthetic Plan Anesthetic Plan: GA Disposition: Standard PACU
[2024-06-03 15:24] LABS: Hematocrit 40.5 % (37.0-47.0); Hemoglobin 14.3 g/dl (12.0-16.0); Mean Corpuscular HGB Conc 35.3 g/dl (31.0-35.0); Mean Corpuscular Hemoglobin 30.8 pg (27.0-33.0); Mean Corpuscular Volume 87.3 fL (80.0-98.0); Mean Platelet Volume 9.9 fL (9.4-12.3); Platelet Count 263 X10*3/uL (160-400); Red Blood Count 4.64 X10*6/uL (4.20-5.50); Red Cell Distribution Width 13.3 % (11.0-16.0); White Blood Count 6.9 X10*3/uL (4.8-10.8)
[2024-06-03 17:08] LABS: Anion Gap 14 (12-20); Blood Urea Nitrogen 17 mg/dL (9-16); Calcium 9.5 mg/dL (8.4-10.2); Carbon Dioxide 27 mmol/L (22-29); Chloride 106 mmol/L (96-108); Estimated Glomerular Filt Rate > 60; Glucose Random 91 mg/dL (60-115); Potassium 3.5 mmol/L (3.3-5.1); Sodium 143 mmol/L (135-145)
[2024-06-18] VITALS (17 sets, daily range): BP systolic 94–164; BP diastolic 42–91; PULSE 60–118; RESP 15–20; TEMP 35.5–36.4; O2SAT 87–99
--- NOTE | ~2024-06-18 | CT_ITS ---
CLINICAL HISTORY: stroke CT Head without contrast. CT angiography head and neck with contrast. 3D Postprocessing. Comparison: MR - MR HEAD/BRAIN WO CON - 06/19/24 14:38 EST Findings: The MRI report is not available for review. HEAD CT: No intra-axial mass, midline shift, hydrocephalus, or acute hemorrhage. There is atrophy-like change and white matter disease. There is no sinus or mastoid fluid. The orbits are within normal limits. No skull fracture. HEAD AND NECK CTA: Aortic arch and cervical great vessels are patent. Atherosclerosis calcification of the bilateral carotid bulbs. No significant stenosis of the internal carotid artery and vertebral artery. No aneurysm, dissection of the intracranial arteries. There is a area of severe stenosis of the left distal CAN HANDLER. Areas of diminished or absence of blood flow of the right ABHIJIT. The bilateral MCA and branches are unremarkable. No abnormal intracranial enhancement. The visualized thyroid gland is unremarkable. No cervical mass or fluid collection. Lung apices clear. No acute fracture. Contrast CT head venogram: No abnormal contrast filling defect in the dural venous sinuses. IMPRESSION: 1. No acute intracranial process on the noncontrast CT head. 2. No significant stenoses of the internal carotid artery and vertebral artery. Area of severe stenosis of the left distal CAN HANDLER. There are areas of severe stenosis or occlusion of the right ABHIJIT. Correlation with angiogram finding is recommended. 3. No evidence of dural venous sinus thrombosis. This document has been electronically signed by: Armando Fierro MD on 06/19/2024 20:48:45
--- NOTE | ~2024-06-18 | FL_ITS ---
EXAMINATION: FLUOROSCOPY GUIDANCE FOR NEEDLE PLACEMENT CLINICAL INFORMATION: l1-2,l3-4. transkambkin COMPARISON: None available. TECHNIQUE: Intraoperative fluoroscopy guidance, thoracolumbar. Physician is present. FINDINGS: Intraoperative fluoroscopy guidance with 7 images obtained. FLUOROSCOPY TIME: 4 minutes and 8 seconds. DOSE AREA PRODUCT: 113.62 uGy-m2 (microgray-meter squared) FL/FL guidance in OR IMPRESSION: Intraoperative fluoroscopy guidance. Electronically signed by: Edmond Paniagua MD 06/18/2024 01:47 PM [facility]
--- NOTE | ~2024-06-18 | MR_ITS ---
EXAMINATION: MR BRAIN WITHOUT CONTRAST CLINICAL INFORMATION: Stroke 2 weeks ago. COMPARISON: CT brain and neck angiogram and CT brain without contrast performed subsequently TECHNIQUE: MRI of the brain was obtained using routine sequences without contrast. FINDINGS: There is punctate diffusion abnormality along the right parafalcine frontal cortex with corresponding low signal on ADC suggestive of small area of acute ischemic changes on image 17, series 6-2. Also visualized is a small acute ischemic changes along the prefrontal cortical gyri on axial slice 21/6-2- No additional areas of abnormality seen. There are scattered foci of T2 FLAIR signal abnormality in the periventricular white matter of both cerebral hemispheres without mass effect likely chronic small vessel ischemic changes. There is no magnetic susceptibility artifact seen to suspect an acute or chronic hemorrhagic products. There is calcium deposits in the pineal gland. Normal flow-void signal seen in major cerebral vasculature. The lateral ventricles are symmetrical but enlarged. There is T2 signal in the right mastoid, right frontal and bilateral ethmoid sinuses from inflammatory process. The cervical-medullary junction appears normal. No abnormality seen in the posterior fossa. The bone marrow signal and the scalp soft tissues are normal. MR/MR head/brain wo con IMPRESSION: Punctate area of acute ischemic change in right frontal lobe parafalcine region and along the right frontal cortical gyrus. No evidence acute or chronic hemorrhagic products. Chronic small vessel ischemic changes with slight cerebral volume loss. Electronically signed by: Garrison Ortiz MD 06/20/2024 09:13 AM [facility]
[2024-06-18] MEDS: methocarbamoL 750 MG TABLET PO (06:26)
[2024-06-18] MEDS: Gabapentin 300 MG CAPSULE PO ×3 (06:26→21:17)
[2024-06-18] MEDS: vancomycin HCL 1,500 MG in 0.9 % Sodium Chloride 500 ML 333.33 MG IV (06:46)
[2024-06-18] MEDS: Lactated Ringers 1,000 ML 100 ML IVCONT (06:47)
--- NOTE | 2024-06-18 07:02 | MHC.SHP ---
Pre-Procedural Eval Section A - 24 Hr Update-Section A only Date of Service: 06/18/24 Section B - Complete if H&P > 30 days Chief Complaint: s/p T11-L5 posterior instrumented fusion with inte Allergies: Allergies Allergy/AdvReac Type Severity Reaction Status Date / Time ampicillin [AMPICILLIN] Allergy Severe swelling Verified 06/03/24 13:43 in face/itchy throat tetracycline [TETRACYCLINE] Allergy Severe itchy Verified 06/03/24 13:43 throat/swelling in face Review of Systems Sugical H&P ROS: Negative: Constitution, Cardiovascular, Respiratory, Neurological, Psychiatric, Hem-Onc, Allergic/Immunologic, Gastrointestinal, Genitourinary, Musculoskeletal, Integumentary, Endocrine and Eyes/Ears/Nose/Throat Exam Surgical H&P Exam: Not Evaluated: HEENT, Not Evaluated: Heart, Not Evaluated: Lungs, Not Evaluated: Extremities, Not Evaluated: Abdomen, Not Evaluated: Skin and Not Evaluated: Neurological Exam Comment: The patient is awake, alert, no acute distress. Proposed surgical incision site is clean without any evidence of recent trauma or surgery. Plan Diagnosis/Plan: Unchanged I have reviewed the history and physical and performed a pertinent physical examination on my patient. No changes have occurred unless specified. Plan remains the same: 1) L1-2, L2-3 transkambin lumbar interbody fusion 2) removal of old hardware at L3-5 3) posterior instrumentation from T10-S1 Time Spent With Patient Time: Total time managing care of this patient today __13__ minutes.
--- NOTE | 2024-06-18 11:15 | PHA.MEDREC ---
Pharmacy Consult ? Medication Reconciliation Pharmacy has reviewed the medication reconciliation completed by nursing. Claims match.
--- NOTE | 2024-06-18 17:09 | HO.NEUROPN_ITS ---
Neurosurgery Operative Note Date of Service: 06/18/24 Narrative: POD: 0 Procedure: L1-2 OLIF, L2-3 TKLIF, T11-L5 posterior instrumentation Crystal was seen in the immediate postoperative period tonight. Nursing staff was reporting a left-sided footdrop. After evaluating the patient she reports that the weakness in her left lower extremity is exactly the same as it was prior to surgery. She had significant difficulty moving her left foot before she came in today per her report. Her family were in the room last several questions regarding her surgery and the postoperative healing course. I answered all of their questions to the best of my ability. [facility] should be coming in to fit her for a TLSO brace with sternum plate. Afebrile, vital signs stable. She has about 3/5 strength with dorsiflexion, plantar flexion, and knee flexion. The rest of her bilateral lower extremity strength is about 4/5. Back dressings have some staining without signs of hematoma. No active sanguineous drainage. Area is dry. Plan: Will remain admitted to [address] [place] [address] for recovery, pain management, and further evaluation. Disposition plan is to discharge to inpatient rehab facility. Her Juarez catheter needs to come out at 06:00 tomorrow. She may log roll and ambulate only with the assist. López Shaw MD,PhD [facility]
[2024-06-18] MEDS: Acetaminophen 325 MG TABLET 975 MG PO (17:25)
[2024-06-18] MEDS: 0.9 % Sodium Chloride 1,000 ML 75 ML IVCONT (17:26)
--- NOTE | 2024-06-18 17:48 | P.OP_ITS ---
Operative Note Operative Note Date of Service: 06/18/24 Narrative: Preoperative diagnosis: 1) thoracolumbar scoliosis with back pain 2) status post L3-4 and L4-5 lumbar fusion Postprocedure diagnosis: 1) same as above Procedure: 1) L1-L2 oblique lateral lumbar interbody fusion with discectomy, preparation of the endplates and placement of a titanium bullet cage packed with allograft, anterior to the transverse process in modified prone position, with intraoperative biplanar fluoroscopy imaging and electrophysiological monitoring 2) L2-L3 discectomy, arthrodesis and implantation cage through an anterolateral, retroperitoneal approach 3) removal right L4-5 instrumentation 4) T11-L5 posterior minimally invasive pedicle screw placement and posterior lateral instrumentation and fusion with intraoperative biplanar fluoroscopic imaging and electrophysiological monitoring 3 Exparel in paravertebral tissue for postop management Consent Informed Consent was obtained for this operation. I have explained the nature, purpose and benefits of the operation. I have discussed the risks and benefit of the operation including possible complications or adverse events with patient/family. Alternative(s) were discussed with the patient with their relative benefits and risks as well as the consequences of not accepting the operation were included in obtaining consent. Surgeon: CATRACHITO CANDELARIO MD, PHD Procedure Assisted By: López Walker PA-C Description of Procedure: This is a complex surgery on the lumbar spine and an financial planning assistant as needed for safety of the surgery for setup of instrumentation, retraction and closing. History: This 84-year-old female that had a previous L3-4 and L4-5 fusion done. She complains of severe left-sided back pain and has to ambulate with a walker. Imaging reviews adjacent degenerative disc disease above the previous fusion with an increase of the scoliotic curve. Patient was offered a correction of the scoliotic curve and because it involves the L1-L2 segment it was decided to extend the fusion from T11 to L5 with posterior instrumentation. The L2 3 fusion was done through an oblique lumbar interbody fusion and the L1-L2 area was done through oblique lumbar lateral interbody fusion followed by a posterior lateral instrumented fusion T11-L5. The procedure and complications were explained and the patient was consented. The patient was brought to the operating room and endotracheally intubated. The patient was turned in a lateral position with the left side up. Prep and drape was done followed by timeout. A small incision was made in the left upper abdominal quadrant. The muscle fascia was opened after which the 3 muscle layer was split to enter the retroperitoneal space. Dilators were docked in the anterior one third of the L2-3 disc space followed by a retractor. The retractor was opened. The L2-3 disc space was exposed. An annulotomy was done after which an elevator Moon was used to release the disc material from its endplates and to perforate the contralateral side. A partial discectomy was done. An 8 mm and 10 mm height trial implant was inserted. The discectomy was completed. The endplates were prepared. An 10 x 45 mm with 6 degree lordosis 4 web cage filled with allograft was inserted into the disc space under fluoroscopic guidance. This resulted in near complete correction of the scoliotic curvature. The retractor was removed. Hemostasis was done. The incision was closed in 2 layers. Steri-Strips used to approximate incision. An OpSite with Tegaderm was used to cover the incision. This marked first part of the procedure. Accordingly, the patient was positioned on the Harvinder spine table in a modified prone position for ease of access from the left side.. 2C arms were installed for fluoroscopy. Prepping and draping was done followed by timeout. The landmarks, including spinal processes, transverse processes, disc space, endplates and pedicles are identified and marked. The following steps are taken for each specified level: L1-L2 level: Cage size 9 mm high and 30 mm long titanium . The patient was turned using the rotation of the surgical table so a near direct anterior lateral approach to the lumbar spine could be achieved. A small incision was then made superior to the mid iliac crest and then using biplanar fluoroscopy visualization, under electrophysiological monitoring and stimulation, we introduced an electrophysiological probe through the retroperitoneal space into the desired disc anterior to the transverse process and then passed it into the disc space after finding a silent window. The sleeve was retained and the probe was removed, then the K wire was passed sequentially into the disc space. A dilating tube was then passed along the same route. Following this, a working channel, a working channel was then passed sequentially into the disc space. The working channel was manually held in position while a series of disc cleaning tools were passed through the channel to remove the affected disc under clear and direct biplanar fluoroscopic visualization, decompress the nerve roots and equal corticated vertebral endplates at this segment. Arthrodesis of the intervertebral space via an anterior retroperitoneal exposure was achieved through Kambin's [place] and lateral extraforaminal space. Allograft was added into the anterior disc space. The working channel was then removed. A titanium interbody cage tightly packed with allograft was then in serted into the midportion of the intervertebral disc space over a K-wire under biplanar fluoroscopic visualization and intraoperative neuro monitoring. The inter pedicular and intradiscal space was significantly enlarged and disc height was restored to worked normal anatomy there for releasing pressure on the nerve roots visual largely the spinal canal and lateral recess as well as foramen were bilateral decompressed and all bones were confined to the borders of the disc space. Thirdly, the previous placed L4-5 instrumentation was exposed on the right side. The locking caps, rods and screws were removed followed by placement of 2 K- wires. Then the previous placed L3-4 instrumentation was exposed on the left side. The locking caps were removed and an extension tower was attached so then in a later stage these previously placed screws can be connected to the newly placed screws described below. The following steps are then taken for each specified level: T11 level: Bilateral pedicle screws with a diameter of 6.5 x 40 mm. T12 and L1 levels: Bilateral pedicle screws with a diameter of 5.5 x 40 mm L2 level: Bilateral pedicle screws with a diameter of 5.5 x 45 mm L3 level: Insertion of right L3 pedicle screw with a diameter of 6.5 x 45 mm L4 and L5 levels: Reinsertion of of right L4 and L5 pedicle screws with a diameter of 7.5 x 45 mm Paramedian incisions were made lateral from the T11-L5 pedicles bilaterally. The muscle fascia was opened after which the muscle layer was split bluntly to expose the posterolateral gutter. The following steps were taken. A pediguard t ap was used to create a transpedicular trajectory into the vertebral body. A K wire was placed. A specially designed instrument was advanced over the K wire to decorticate the posterolateral gutter in preparation for the posterolateral fusion. A pedicle screw was advanced over the K wire and the K wire was removed. The steps were done for the bilateral T11, T12, L1 and L2 and the right L3 pedicle. Furthermore, the right old L4-5 hardware was removed and replaced with a new right L4 and L5 pedicle screws. No screw was placed in the left L5 pedicle. A total of 11 screws were placed. The pedicle screws were connected with 180 mm solo on the right side and 160 mm solo on the left side and locked down with locking caps. The solo was prebend according to the spinal curvature .The extension towers were removed. The posterolateral gutter was filled with allograft to complete the posterolateral T11-L5 fusion Hemostasis was done and the incision was closed in 2 layers. Steri-Strips were used to approximate the incisions. Multiple OpSites with Tegaderm were used to cover the incision. All sponge and needle counts were correct. Patient was extubated and transferred in stable is to recovery room. No abnormalities were seen with neurophysiological monitoring or with the Pediguard during the procedure. Anesthesia: General Estimated Blood Loss (ml): 150 mL Specimen: None Duration of Surgery: 5 hours Postoperative Plan: Admit to inpatient
[2024-06-18] MEDS: vancomycin HCL 1,000 MG in 0.9 % Sodium Chloride 250 ML 270 MG IV (18:20)
--- NOTE | 2024-06-18 18:21 | PC.NURSE ---
Ganga Dickey from [facility] here to fit pt for back brace. Pt fitted and instructed on use by Ganga. Pt to be seen by PT in am
[2024-06-18] MEDS: Ketorolac Tromethamine 15 MG/ML VIAL IVPUSH (21:16)
[2024-06-18] MEDS: Sennosides/Docusate Sodium TABLET 2 TAB PO (21:17)
[2024-06-19] VITALS (7 sets, daily range): BP systolic 105–139; BP diastolic 52–69; PULSE 67–92; RESP 16–20; TEMP 36–37; O2SAT 96–100
[2024-06-19] MEDS: Acetaminophen 325 MG TABLET 975 MG PO ×3 (00:15→16:46)
[2024-06-19] MEDS: 0.9 % Sodium Chloride 1,000 ML 75 ML IVCONT ×2 (04:20→16:45)
[2024-06-19] MEDS: Omeprazole 40 MG CAPSULE.DR PO (05:46)
--- NOTE | 2024-06-19 09:02 | HO.POSTANES ---
Post Anesthesia Evaluation Post Anesthesia Evaluation Date of Service: 06/19/24 Vital Signs: Vital Signs Temp Pulse Resp BP Pulse Ox O2 Del Method O2 Flow Rate 06/19/24 08:37 77 124/60 98 06/19/24 07:44 96.8 F 77 16 124/60 98 Nasal Cannula 2 06/19/24 03:20 97.0 F 67 18 114/69 97 Nasal Cannula 2 06/19/24 00:00 98.6 F 75 16 139/65 98 Nasal Cannula 2 Anesthesia: General Endotracheal-GETA Mental Status: Awake Pain Control: Satisfactory Nausea/Vomiting: None Hydration: Adequate Anesthesia-Related Issues: No Anes. Related Issues
[2024-06-19] MEDS: amLODIPine Besylate 5 MG TABLET PO (09:17)
[2024-06-19] MEDS: Gabapentin 300 MG CAPSULE PO ×3 (09:18→20:06)
[2024-06-19] MEDS: Ketorolac Tromethamine 15 MG/ML VIAL IVPUSH ×2 (09:18→20:06)
--- NOTE | 2024-06-19 09:35 | HO.NEURO.PN ---
Neurosurgery Operative Note Date of Service: 06/19/24 Narrative: POD: 1 Procedure: L1-2 OLIF, L2-3 TKLIF, T11-L5 posterior instrumentation Crystal is a pleasant 84 year old female who is POD:1 s/p L1-3 interbody fusion with T11-L5 posterior instrumentation. She was seen laying in bed this morning on 3-S. Postoperatively she disclosed left sided foot & leg weakness that has been ongoing x 2 weeks. She reports that she awoke one morning 2 weeks ago and was largely unable to ambulate / bear weight on her left foot. In addition to this she feels her strength on that side has been significantly diminished. This is a concerning finding that may be related to something more insidious than simply lumber spine exiting nerve compression, and is particularly concerning for a stroke / TIA. Aside from this, she reports that her pain has been well controlled and that she is otherwise doing well. She is tolerating current diet, alonso is still in place. Afebrile, vital signs stable. Patient is alert and oriented in no acutge distress. She maintains about 3/5 strength with dorsiflexion, plantar flexion, and knee flexion on the left. The rest of her bilateral lower extremity strength is about 4/5. Full 5/5 strength in her bilateral UE's. Back dressings have some staining without signs of hematoma. No active sanguineous drainage. Area is dry. (-) Pronator drift bilaterally. (-) Finger to nose testing. Patient maintains normal sensation with no acute changes reported. No facial droop. Plan: Crystal is a pleasant 84 year old female who is POD:1 s/p L1-3 interbody fusion with T11-L5 posterior instrumentation. It sounds like she had some kind of acute event happened roughly 2 weeks ago where she woke up with decreased ability to engage her left lower extremity. This is accompanied by a feeling of weakness. Unfortunately she did not discuss this with us pre-operatively. I would like to order a stat brain MRI to rule out a transient ischemic attack/stroke and will also be urgently consulting Neurology in regards. She will remain admitted to [address] [place] [address] for recovery, pain management, and further evaluation. I contacted nursing staff to have alonso removed; she can use bedside commode with assist. Disposition plan is to discharge to inpatient rehab facility. She may log roll and ambulate only with assist. López Shaw MD,PhD [facility]
--- NOTE | 2024-06-19 12:35 | MHC.CM.PN ---
CM MET WITH PT AND FAMILY AT BEDSIDE PT LIVES WITH HER SISTER AND IS INDEPENDENT AT BASELINE PT USES A WALKER FOR DME SHE HAS A HCP, NELI AND PETER ON FILE PCP: RANI AGUILA IMM DELIVERED STR BEING RECOMMENDED, REPORTED PREFERENCE IS A WELL-RATED SNF NO PREFERRED GEOGRAPHIC LOCATION NOTED REFERRALS MADE TO [facility]
--- NOTE | 2024-06-19 16:10 | P.CNNE_ITS ---
History of Present Illness Data of Consult Service Date: 06/19/24 Primary Care Provider: Ashleigh Grullon MD [facility] Reason for consult: Stroke 84 years old woman who recently had lumbar surgery for intractable back pain radiating to both legs. She was noted to have left leg weakness that she said started maybe couple of weeks before the surgery or at least few days before the surgery. There was no problem with bowel bladder function associated with these symptoms. There was no arm weakness or facial asymmetry. Due to concern about a stroke she had an MRI and this consultation. She was not known to have any cardiac condition. Review of Systems 2 Review of Systems: Recent intractable back pain requiring back surgery PMFSH Past Medical History Medical History (Updated 06/19/24 @ 16:13 by Arnol Parsons MD) Uses roller walker Arthritis Back pain GERD (gastroesophageal reflux disease) Numbness Seasonal allergies History of blood transfusion [place] (hard of hearing) GI bleed due to NSAIDs Osteoarthritis Elevated cholesterol Hyperglycemia HTN (hypertension) Lumbar stenosis Vertigo Gastritis Scoliosis (and kyphoscoliosis), idiopathic Anemia Family History Family History Father No problems noted. Mother Breast cancer Surgical History Surgical History Hx of spinal surgery (07/18/23) Hx of tonsillectomy History of total left knee replacement History of esophagogastroduodenoscopy (EGD) H/O colonoscopy History of lumbar laminectomy History of total left hip arthroplasty History of appendectomy H/O cataract removal with insertion of prosthetic lens Social History Social History (Updated 06/03/24 @ 13:44 by Angy Schmid RN) Household Members: Family Household Members Other:: sister Housing: Condominium Are you a primary direct care supervisor to a significant other at home: No Do you presently have visiting nurse or other home services: No Patient Tobacco Use Status: Former Tobacco user Tobacco use type: Cigarette e-Cigarette/Vaping Use: Never Used Use of substances other than those prescribed or required for medical reasons: No Substance Use Type: Other Substance Use Type Other:: gummies Last Used Substance Other:: greater than a month Currently Displaying Signs/Symptoms of Drug Intoxication Withdrawal: No Have you been hit, kicked, punched, or otherwise hurt by someone within the past year? If so, by whom?: No Do you feel safe in your current relationship?: No Current Relationship Is there a partner from a previous relationship who is making you feel unsafe now?: No Are you made to feel afraid or neglected: No Are you DNR?: No Advance Directives: Yes Advance Directives Information Provided: No Advance Directives on File: Yes Advance Directives Date on File: 10/16/22 Do you have a plan to hurt others: No Plan Recently lost weight without trying: No Nutrition Risks: No Nutritional Risk Patient : No Poor oral hygiene: No service: No Current occupational status: retired Cognitive needs: No Hearing needs: Yes Vision needs: No Meds Allergies Allergy/AdvReac Type Severity Reaction Status Date / Time ampicillin [AMPICILLIN] Allergy Severe swelling Verified 06/18/24 07:13 in face/itchy throat tetracycline [TETRACYCLINE] Allergy Severe itchy Verified 06/18/24 07:13 throat/swelling in face Active Medications: Current Medications Acetaminophen (Acetaminophen 325 Mg Tablet) 975 mg PO Q8H [facility] Last Admin: 06/19/24 09:17 Dose: 975 mg Amlodipine Besylate (Amlodipine Besylate 5 Mg Tablet) 5 mg PO DAILY [facility]; Protocol Last Admin: 06/19/24 09:17 Dose: 5 mg Docusate Sodium (Docusate Sodium 100 Mg Capsule) 100 mg PO BID PRN PRN Reason: Constipation Gabapentin (Gabapentin 300 Mg Capsule) 300 mg PO TID [facility] Last Admin: 06/19/24 15:41 Dose: 300 mg Hydromorphone HCl (Hydromorphone Hcl 1 Mg/Ml Syringe) 1 mg IVPUSH Q3H PRN; Protocol PRN Reason: Pain, Severe (Pain Scale 7-10) Sodium Chloride (Ns) 1,000 mls @ 75 mls/hr IVCONT .[id number] [facility] Last Admin: 06/19/24 04:20 Dose: 75 mls/hr Ketorolac Tromethamine (Ketorolac Tromethamine 15 Mg/Ml Vial) 15 mg IVPUSH BID [facility] Last Admin: 06/19/24 09:18 Dose: 15 mg Methocarbamol (Methocarbamol 750 Mg Tablet) 750 mg PO TID PRN PRN Reason: Muscle Spasm Omeprazole (Omeprazole 40 Mg Capsule.Dr) 40 mg PO DAILY@0630 [facility] Last Admin: 06/19/24 05:46 Dose: 40 mg Ondansetron HCl (Ondansetron Hcl 4 Mg/2 Ml Vial) 4 mg IVPUSH Q6H PRN PRN Reason: Nausea and Vomiting Oxycodone HCl (Oxycodone Hcl Immed Release 5 Mg Tablet) 5 mg PO Q4H PRN PRN Reason: Pain, Moderate(Pain Scale 4-6) Oxycodone HCl (Oxycodone Hcl Immed Release 5 Mg Tablet) 10 mg PO Q4H PRN PRN Reason: Pain, Severe (Pain Scale 7-10) Senna/Docusate Sodium (Sennosides/Docusate Sodium Tablet) 2 tab PO BEDTIME [facility] Last Admin: 06/18/24 21:17 Dose: 2 tab Home Medications ?Medication ?Instructions ?Recorded ?Confirmed ?Last Taken ?Type baclofen 10 mg tablet 10 mg PO BID PRN Pain 01/01/24 06/03/24 Unknown History docusate sodium 100 mg capsule 100 mg PO BID PRN Constipation 01/01/24 06/03/24 Unknown History (Colace) Physical Exam 2 Vital Signs: Vital Signs: Last Vital Signs Temp 97.5 F 06/19/24 15:52 Pulse 90 06/19/24 15:52 Resp 20 06/19/24 15:52 BP 134/60 06/19/24 15:52 Pulse Ox 97 06/19/24 15:52 O2 Del Method Nasal Cannula 06/19/24 15:52 O2 Flow Rate 2 06/19/24 15:52 BMI result Body Mass Index 30.6 Neuro: Other: she is alert and awake with normal spontaneity of speech fluency comprehension and somewhat vague affect. She was following commands. Visual joseph are full. Face is symmetrical. There was no pronator drift. She is able to lift right leg against gravity but could not do so with left leg. She barely wiggle toes on left foot. Plantars were flat. Deep tendon reflexes were trace to absent. There was no neglect. Results Labs 06/03/24 14:22 06/03/24 14:22 Labs: MRI of brain revealed a tiny area of restricted diffusion and right medial parietal area. Chronic microvascular ischemic changes were also noted. Assessment and Plan (1) Cerebral infarction: Qualifiers: Cerebral infarction mechanism: unspecified mechanism Qualified Code(s): I63.9 - Cerebral infarction, unspecified Status: Acute small right hemispheric ischemic cerebral infarction resulting in left leg weakness because of its location. Whenever possible, start aspirin 81 mg daily and subQ heparin to avoid DVT. Pay attention to blood pressure as low blood pressure and this type of patients could be more damaging and I would noted that her blood pressure has significantly dropped during this hospitalization. I recommend stopping blood pressure medicines at this time and hydration to avoid hypotension. I also recommend CTA of brain and neck and an echocardiogram. PT OT consultation is also recommended. Procedures Date of Service Date of Service: 06/19/24
[2024-06-19 18:02] LABS: Blood Urea Nitrogen 8 mg/dL (9-16); Creatinine Clr Calc Pharmacy 59.4; Estimated Glomerular Filt Rate > 60
[2024-06-19] MEDS: iohexoL 350 MG/ML 100 ML INFUS..BTL IV (19:24)
[2024-06-19] MEDS: Sennosides/Docusate Sodium TABLET 2 TAB PO (20:06)
[2024-06-20] VITALS: BP 124/59; PULSE 69; RESP 18; TEMP 36.8; O2SAT 97
[2024-06-20] MEDS: Acetaminophen 325 MG TABLET 975 MG PO ×2 (01:43→08:53)
[2024-06-20 04:00] VITALS: BP 128/60; PULSE 63; RESP 18; TEMP 36.3; O2SAT 97
[2024-06-20] MEDS: 0.9 % Sodium Chloride 1,000 ML 75 ML IVCONT (05:34)
[2024-06-20] MEDS: Omeprazole 40 MG CAPSULE.DR PO (05:34)
[2024-06-20 08:00] VITALS: BP 142/64; PULSE 66; RESP 18; TEMP 36.3; O2SAT 98
[2024-06-20] MEDS: Aspirin 81 MG TAB.CHEW PO (08:53)
[2024-06-20] MEDS: Gabapentin 300 MG CAPSULE PO (08:53)
[2024-06-20] MEDS: oxyCODONE HCl Immed Release 5 MG TABLET PO (08:53)
--- NOTE | 2024-06-20 09:06 | HO.NEUROPN_ITS ---
Neurosurgery Operative Note Date of Service: 06/20/24 Narrative: Postop day 2. 1) L1-L2 oblique lateral lumbar interbody fusion 2) L2-L3 oblique lumbar interbody fusion 3) removal right L4-5 instrumentation 4) T11-L5 posterior minimally invasive pedicle screw placement and posterior lateral instrumentation and fusion Neurology saw patient yesterday, appreciate their input. Looks like the patient has had a small stroke in the right hemisphere. No official read back on the MRI just yet. 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 We have started her on baby aspirin and held her blood pressure medications as recommended. The patient clinically reports no improvement in her left leg weakness. She has not report any new weakness. She continues to have back pain, is taking the medications to help control that. Her Juarez catheter came out, but she had been unable to void on her own. She was straight cathed for 800 cc overnight. She is tolerating a diet okay denies any nausea vomiting abdominal pain etc.. Afebrile, vital signs are stable She is awake alert oriented no acute distress, motor examination again reveals that she has diffuse left leg weakness which I would rate as 3/5 in the left iliopsoas, distal left lower extremity however is 1/5 in the quadriceps, tibialis and gastrocnemius. Sensation is normal in bilateral lower extremities. Her abdomen is soft nondistended nontender, left lower quadrant incision is clean and dry. Her back dressing is clean and dry, no signs of hematoma. Impression: 84-year-old female presented for elective spine surgery, came in with a 2 week history of left lower extremity weakness before the operation. Dr. Shaw was not aware of this leading up to the surgery, but unfortunately now it looks like she had a stroke a few weeks back. We consulted Neurology, who suspects she had a right hemispheric infarct as well. No formal read yet on the MRI but her CTA of the head shows severe stenosis at the ABHIJIT on the right side which would be consistent with the leg weakness and the stroke that the neurologist to seeing. We have stopped her hypertensive medications to avoid hypotension. We have also started baby aspirin and subQ heparin as prophylactic measures. On my exam this morning her weakness remains the same, with minimal movement in the distal left lower extremity, proximally 3/5 in the iliopsoas hip flexor. This is going to be a chair real challenge for her with the rehab from the back surgery because of the challenges with mobility. She is going to need acute rehab. OT was ordered so we could assist with getting her out to [facility]hab [facility]. I will touch base with Neurology today, and review everything with Dr. Shaw. In the interim however, she may need her catheter put back and because she was unable to void on her own since it was removed yesterday. I am going to have the nursing staff scan or bladder again to see if she is continuing to be in retention. Will finalize the plan once I have a chance to review everything with Dr. Shaw.
[2024-06-20 09:34] VITALS: BP 142/64; PULSE 66; O2SAT 98
--- NOTE | 2024-06-20 09:35 | P.DS_ITS ---
DS: Providers Provider Date of Service: 06/18/24 Date of admission: 06/18/24 06:01 Date of discharge: 06/20/24 Primary care physician: Ashleigh Grullon MD Admitting clinician: Bran Shaw Consults: 06/19/24 09:49 Consult to Neurology Stat Consulting Provider: [facility] Reason for consultation: r/o suspected stroke 2 weeks ago see note from today. 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 Shaw last year, who presented with further worsening of her scoliotic curvature and difficulty with back pain with standing walking which had made her life significantly limited. She chose to come in for elective spine surgery to revise and extend her fusion up to the lower thoracic level. She was brought to the operating room on 06/18/2024 and underwent oblique lumbar interbody fusion L2-3, oblique lateral trans Kambin interbody fusion L1-2 as well as revision of posterior instrumentation and fusion from T11-L5 level. The procedure went well, the patient was brought to the PACU where she began a recovery. It was noticed by the PACU nurse that the patient was reporting leg weakness. The patient reported she had had it previously. Upon evaluation on postoperative day 1. When the patient was able to tell us more clearly what was going on, she reported that about 2 weeks ago she had sudden onset of weakness of her left leg. Unfortunately she did not disclose this before the surgery. It is a diffuse left leg weakness described only as inability to lift or move the leg, but no sensory changes reported with it. Denied any upper extremity symptoms, facial droop etc.. On postoperative day 1., Dr. Shaw ordered Neurology consultation as well as brain MRI to rule out a stroke. Indeed the brain MRI came back showing right frontal lobe ischemic area consistent with an infarct. 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 The right ABHIJIT distribution would explain the frontal lobe stroke and the leg weakness. Neurology recommended holding the patient's blood pressure medications in the short term just to make sure that the penumbra of the stroke does not become hypotensive as she was running a little bit low postoperatively likely secondary to narcotics and lack of mobility etc.. So we held her amlodipine. We also started her on baby aspirin and subQ heparin for prophylactic purposes. In terms of the recovery from her spine surgery, she has been complaining of back pain, treated with oxycodone generally, Tylenol etc.. We had to discontinue the Toradol because of the diagnosis of stroke. The patient was able to tolerate a diet. We removed her Juarez on postoperative day 1. But unfortunately she had a lot of difficulty voiding and had to be straight cath for 800 cc. A subsequent voiding trial was done and she was unable to void again. She had 500 cc in her bladder so we will leave a Jaurez in place until she can become more mobile and void on her own. We did allow her to get out of bed with physical therapy and occupational therapy and obviously with her diffuse leg weakness and the extensive lumbar fusion she is going to need acute rehab. The plan will be to discharge her on postoperative day 2 to the rehab facility. She has a brace to wear when she is out of bed and participating in activity. She does not need it when she is sitting in a recliner or lying in bed.. Other than that she has no specific limitations. She has multiple incisions, 1 on her left lower quadrant of her abdomen as well as multiple incisions on her thoracolumbar spine. These were all closed with Steri-Strips and they can be removed in a week if they have not already fallen off. She can shower whenever she likes. She will need to follow up with Neurology as an outpatient, and will come back to see our office in 3 weeks. Physical exam upon discharge: Patient is awake alert oriented no acute distress, as mentioned she has significant weakness of the left lower extremity. Her hip flexor muscle groups are 3/5 but her quadriceps tibialis and plantar function are all about 1/5. No problems with sensation. Upper extremity strength and right lower extremity strength is normal. Abdomen is soft nondistended nontender no rebound tenderness or guarding. There is a left lower quadrant incision that is covered with a dry sterile bandage. This can be removed at any time. Her back dressings are clean and dry, these can be removed tomorrow Please do not hesitate to call the office with any questions [phone]. Status at Discharge Functional status at discharge: uses cane/walker Time Attestation Discharge Coordination Time (in mins): 5 Quality: Safe Use of Opioids Does Pt have an Active Cancer Diagnosis on the Problem List?: No Quality: Stroke Does the patient have a stroke diagnosis?: Yes Reason for No Anti-thrombotic at DC: N/A - Med Ordered Reason for No Anticoagulant at DC: N/A - Med Ordered Reason Not Initiating IV-Tpa: Not indicated Reason for No Anti-thrombotic by Day Two: Not indicated Reason for No Statin at DC: Not indicated Physical Exam Vital Signs: Vital Signs: Last Vital Signs Temp 97.3 F 06/20/24 08:00 Pulse 66 06/20/24 08:00 Resp 18 06/20/24 08:00 BP 142/64 H 06/20/24 08:00 Pulse Ox 98 06/20/24 08:00 O2 Del Method Nasal Cannula 06/20/24 08:00 O2 Flow Rate 1.0 06/20/24 08:00 BMI result Body Mass Index 30.6 DS: Data Data Completed and Pending Completed studies during hospitalization [Text1]: Procedures Excision of Duodenum, Via Natural or Artificial Opening Endoscopic, Diagnostic (04/16/23) Excision of Lumbar Vertebral Disc, Open Approach (07/18/23) Excision of Stomach, Pylorus, Via Natural or Artificial Opening Endoscopic, Diagnostic (04/16/23) Fusion of Lumbar Vertebral Joint with Interbody Fusion Device, Anterior Approach, Anterior Column, Open Approach (07/18/23) Insertion of Interspinous Process Spinal Stabilization Device into Lumbar Vertebral Joint, Open Approach (07/18/23) Inspection of Lower Intestinal Tract, Via Natural or Artificial Opening Endoscopic (04/16/23) Removal of Internal Fixation Device from Lumbar Vertebra, Open Approach (07/18/23) Transfusion of Nonautologous Red Blood Cells into Peripheral Vein, Percutaneous Approach (04/16/23) Labs on day of discharge: Laboratory Results - last 24 hr 06/19/24 17:43 BUN 8 L Creatinine 0.75 Estim Creat Clear Calc 59.4 Estimated GFR > 60 Discharge Plan Discharge Anticipated Discharge Date/Time: 06/20/24 14:09 Patient Disposition: Xfer Inpatient Rehab Fac Discharge Diagnosis: Scoliosis and right frontal cerebral infarct Referrals: Ashleigh Grullon MD [Primary Care Provider] - 1 Week Discharge Medications: New aspirin 81 mg Tablet,Chewable 81 mg PO DAILY Qty: 30 0RF oxycodone 5 mg Tablet See Rx Instructions .ROUTE .COMPLEX PRN (Reason: Pain, Moderate(Pain Scale 4-6)) Qty: 40 0RF Rx Instructions: 1-2 tabs po q4 hours prn pain; Partial Fill upon patient request. acetaminophen 325 mg Tablet 975 mg PO Q8H Qty: 20 0RF heparin (porcine) 5,000 unit/mL Solution 5,000 unit subcut Q8H Qty: 25 0RF Continued omeprazole 40 mg capsule,delayed release(DR/EC) 40 mg PO DAILY@0630 Qty: 90 3RF baclofen 10 mg tablet 10 mg PO BID PRN (Reason: Pain) docusate sodium [Colace] 100 mg capsule 100 mg PO BID PRN (Reason: Constipation) (DME) back brace Misc See Rx Instructions .Route Qty: 1 0RF Rx Instructions: LSO brace with thoracic extension CPT 10: M41.80 CHRISTOPHER: 99 Discontinued celecoxib 200 mg capsule 200 mg PO DAILY Qty: 60 3RF amlodipine 5 mg tablet 5 mg PO DAILY Qty: 90 3RF Discharge Orders: Discharge Order (Routine); Ordered 06/20/24 Ordered By: Boo Horton Diet: Advance to usual diet Activity on Discharge: As tolerated Stand Alone Forms: Patient Portal Discharge page Print Language: Uzbek Activity Restrictions/Additional Instructions: After your spinal surgery we ask you to observe the following restrictions/guidelines: Activity: You must use your TLSO brace when you are out of bed It is normal to feel some discomfort as you increase your activity, but that will improve with time. We ask you avoid heavy lifting or acitivities that cause pain. As a general rule, 8lbs is a safe limit for lifting right after surgery. Walk as much as you feel comfortable but not to exhaustion. You will feel extra tired the first few days after surgery. Stay well hydrated. It is OK to walk up and down stairs You may return to driving when you are off narcotics (such as vicodin, oxycodone, dilaudid, etc), and you are back to normal functional capacity. If you have any concerns please check with office before driving. Return to work is specific to each patient and each surgery, so please speak with your doctor/PA at first follow up. Please bring paperwork such as FMLA at that time if you need it filled out. Medications: For optimum pain control, it is best to start with a combination of 500 mg of Tylenol every 4 hours with 600 mg of Motrin every 8 hours, and use narcotics as needed in between for breakthrough pain. We will give you a short supply of narcotics after surgery (usually one weeks worth). If you need more please call the office but do not use more than prescribed. You will need to give our office 48 hours notice if you need narcotics refilled and we do not fill narcotics on weekends or evenings. If you are on a narcotic, it is a good idea to take a stool softener such as colace or senna to avoid constipation If you take blood thinner such as aspirin, Plavix, Coumadin, Effient, Eliquis etc for conditions such as Afib, DVT, Pulmonary embolus, coronary disease, stents etc please speak with your surgeon about specific details as to when you can resume these medications. Follow up: Please call the office, , after surgery to arrange a 3 week follow up for wound check. Wound Care: You may remove your dressing on the first day after surgery. ?You may ?leave open to air. Please do not remove the steri strips underneath. they will fall off on their own in one week. IT IS NORMAL FOR THE WOUND TO OOZE OR BE BLOODY FOR A FEW DAYS AFTER SURGERY. ?IF THIS HAPPENS JUST PLACE NEW DRESSING OVER IT TO AVOID STAINING CLOTHES. You may shower on post op day # 1 We ask that you do not let the water soak the wound. If it does get wet, just towel dry lightly. Please do not scrub your incision or place any type of chemical/ointment on the wound. No tub baths, pools or jacuzzis for one month. If you have any leaking or redness from your wound, or fevers, please call office Care Plan Goals: Discharge to rehab to recover from stroke and spine surgery Health Concerns: As above recovering from surgery and stroke Plan of Treatment: Discharge to rehab Follow-up with Neurology Dr Parsons and Neurosurgery Dr Shaw in 2-3 weeks Assessment: Stable
[2024-06-20] MEDS: Heparin Sodium,Porcine 5,000 UNIT/ML VIAL 5000 UNIT SUBCUT (10:41)
[2024-06-20 11:08] VITALS: BP 126/60; PULSE 68; RESP 18; TEMP 36.8; O2SAT 96
--- NOTE | 2024-06-20 11:14 | MHC.CM.PN ---
Patient medically cleared for dc to acute rehab. CM reviewed dc plan w/ daughter Yamel and patient. Bed accepted @ [facility]. BLS transport scheduled for 2pm. RN aware.
--- NOTE | 2024-06-20 11:33 | P.DS_ITS ---
DS: Providers Provider Date of Service: 06/18/24 Date of admission: 06/18/24 06:01 Date of discharge: 06/20/24 Primary care physician: Ashleigh Grullon MD Consults: 06/19/24 09:49 Consult to Neurology Stat Consulting Provider: [facility] Reason for consultation: r/o suspected stroke 2 weeks ago see note from today. 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 Shaw last year, who presented with further worsening of her scoliotic curvature and difficulty with back pain with standing walking which had made her life significantly limited. She chose to come in for elective spine surgery to revise and extend her fusion up to the lower thoracic level. She was brought to the operating room on 06/18/2024 and underwent oblique lumbar interbody fusion L2-3, oblique lateral trans Kambin interbody fusion L1-2 as well as revision of posterior instrumentation and fusion from T11-L5 level. The procedure went well, the patient was brought to the PACU where she began a recovery. It was noticed by the PACU nurse that the patient was reporting leg weakness. The patient reported she had had it previously. Upon evaluation on postoperative day 1. When the patient was able to tell us more clearly what was going on, she reported that about 2 weeks ago she had sudden onset of weakness of her left leg. Unfortunately she did not disclose this before the surgery. It is a diffuse left leg weakness described only as inability to lift or move the leg, but no sensory changes reported with it. Denied any upper extremity symptoms, facial droop etc.. On postoperative day 1., Dr. Shaw ordered Neurology consultation as well as brain MRI to rule out a stroke. Indeed the brain MRI came back showing right frontal lobe ischemic area consistent with an infarct. 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 The right ABHIJIT distribution would explain the frontal lobe stroke and the leg weakness. Neurology recommended holding the patient's blood pressure medications in the short term just to make sure that the penumbra of the stroke does not become hypotensive as she was running a little bit low postoperatively likely secondary to narcotics and lack of mobility etc.. So we held her amlodipine. We also started her on baby aspirin and subQ heparin for prophylactic purposes. She was also started on atorvastatin 40 mg daily and a lipid panel was drawn as per stroke protocol. In terms of the recovery from her spine surgery, she has been complaining of back pain, treated with oxycodone generally, Tylenol etc.. We had to discontinue the Toradol because of the diagnosis of stroke. The patient was able to tolerate a diet. We removed her Juarez on postoperative day 1. But unfortunately she had a lot of difficulty voiding and had to be straight cath for 800 cc. A subsequent voiding trial was done and she was unable to void again. She had 500 cc in her bladder so we will leave a Juarez in place until she can become more mobile and void on her own. We did allow her to get out of bed with physical therapy and occupational therapy and obviously with her diffuse leg weakness and the extensive lumbar fusion she is going to need acute rehab. The plan will be to discharge her on postoperative day 2 to the rehab facility. She has a brace to wear when she is out of bed and participating in activity. She does not need it when she is sitting in a recliner or lying in bed.. Other than that she has no specific limitations. She has multiple incisions, 1 on her left lower quadrant of her abdomen as well as multiple incisions on her thoracolumbar spine. These were all closed with Steri-Strips and they can be removed in a week if they have not already fallen off. She can shower whenever she likes. She will need to follow up with Neurology as an outpatient, and will come back to see our office in 3 weeks. Physical exam upon discharge: Patient is awake alert oriented no acute distress, as mentioned she has significant weakness of the left lower extremity. Her hip flexor muscle groups are 3/5 but her quadriceps tibialis and plantar function are all about 1/5. No problems with sensation. Upper extremity strength and right lower extremity strength is normal. Abdomen is soft nondistended nontender no rebound tenderness or guarding. There is a left lower quadrant incision that is covered with a dry sterile bandage. This can be removed at any time. Her back dressings are clean and dry, these can be removed tomorrow Please do not hesitate to call the office with any questions [phone]. Time Attestation Discharge Coordination Time (in mins): 6 Quality: Safe Use of Opioids Does Pt have an Active Cancer Diagnosis on the Problem List?: No Quality: Stroke Does the patient have a stroke diagnosis?: Yes Reason for No Anti-thrombotic at DC: N/A - Med Ordered Reason for No Anticoagulant at DC: N/A - Med Ordered Reason Not Initiating IV-Tpa: Not indicated Reason for No Anti-thrombotic by Day Two: Not indicated Reason for No Statin at DC: N/A - Med Ordered Physical Exam Vital Signs: Vital Signs: Last Vital Signs Temp 98.2 F 06/20/24 11:08 Pulse 68 06/20/24 11:08 Resp 18 06/20/24 11:08 BP 126/60 06/20/24 11:08 Pulse Ox 96 06/20/24 11:08 O2 Del Method Room Air 06/20/24 11:08 O2 Flow Rate 1.0 06/20/24 08:00 BMI result Body Mass Index 30.6 DS: Data Data Completed and Pending Completed studies during hospitalization [Text1]: Procedures Excision of Duodenum, Via Natural or Artificial Opening Endoscopic, Diagnostic (04/16/23) Excision of Lumbar Vertebral Disc, Open Approach (07/18/23) Excision of Stomach, Pylorus, Via Natural or Artificial Opening Endoscopic, Diagnostic (04/16/23) Fusion of Lumbar Vertebral Joint with Interbody Fusion Device, Anterior Approach, Anterior Column, Open Approach (07/18/23) Insertion of Interspinous Process Spinal Stabilization Device into Lumbar Vertebral Joint, Open Approach (07/18/23) Inspection of Lower Intestinal Tract, Via Natural or Artificial Opening End oscopic (04/16/23) Removal of Internal Fixation Device from Lumbar Vertebra, Open Approach (07/18/23) Transfusion of Nonautologous Red Blood Cells into Peripheral Vein, Percutaneous Approach (04/16/23) Labs on day of discharge: Laboratory Results - last 24 hr 06/19/24 17:43 BUN 8 L Creatinine 0.75 Estim Creat Clear Calc 59.4 Estimated GFR > 60 Discharge Plan Discharge Anticipated Discharge Date/Time: 06/20/24 14:09 Patient Disposition: Xfer Inpatient Rehab Fac Discharge Diagnosis: Scoliosis and right frontal cerebral infarct Referrals: Ashleigh Grullon MD [Primary Care Provider] - 1 Week Discharge Medications: New aspirin 81 mg Tablet,Chewable 81 mg PO DAILY Qty: 30 0RF oxycodone 5 mg Tablet See Rx Instructions .ROUTE .COMPLEX PRN (Reason: Pain, Moderate(Pain Scale 4-6)) Qty: 40 0RF Rx Instructions: 1-2 tabs po q4 hours prn pain; Partial Fill upon patient request. acetaminophen 325 mg Tablet 975 mg PO Q8H Qty: 20 0RF heparin (porcine) 5,000 unit/mL Solution 5,000 unit subcut Q8H Qty: 25 0RF atorvastatin 40 mg tablet 40 mg PO DAILY Qty: 20 0RF Continued omeprazole 40 mg capsule,delayed release(DR/EC) 40 mg PO DAILY@0630 Qty: 90 3RF baclofen 10 mg tablet 10 mg PO BID PRN (Reason: Pain) docusate sodium [Colace] 100 mg capsule 100 mg PO BID PRN (Reason: Constipation) (DME) back brace Misc See Rx Instructions .Route Qty: 1 0RF Rx Instructions: LSO brace with thoracic extension CPT 10: M41.80 CHRISTOPHER: 99 Discontinued celecoxib 200 mg capsule 200 mg PO DAILY Qty: 60 3RF amlodipine 5 mg tablet 5 mg PO DAILY Qty: 90 3RF Discharge Orders: Discharge Order (Routine); Ordered 06/20/24 Ordered By: Boo Horton Diet: Advance to usual diet Activity on Discharge: As tolerated Stand Alone Forms: Patient Portal Discharge page Print Language: Malay Activity Restrictions/Additional Instructions: After your spinal surgery we ask you to observe the following restrictions/guidelines: Activity: You must use your TLSO brace when you are out of bed It is normal to feel some discomfort as you increase your activity, but that will improve with time. We ask you avoid heavy lifting or acitivities that cause pain. As a general rule, 8lbs is a safe limit for lifting right after surgery. Walk as much as you feel comfortable but not to exhaustion. You will feel extra tired the first few days after surgery. Stay well hydrated. It is OK to walk up and down stairs You may return to driving when you are off narcotics (such as vicodin, oxycodone, dilaudid, etc), and you are back to normal functional capacity. If you have any concerns please check with office before driving. Return to work is specific to each patient and each surgery, so please speak with your doctor/PA at first follow up. Please bring paperwork such as FMLA at that time if you need it filled out. Medications: For optimum pain control, it is best to start with a combination of 500 mg of Tylenol every 4 hours with 600 mg of Motrin every 8 hours, and use narcotics as needed in between for breakthrough pain. We will give you a short supply of narcotics after surgery (usually one weeks worth). If you need more please call the office but do not use more than prescribed. You will need to give our office 48 hours notice if you need narcotics refilled and we do not fill narcotics on weekends or evenings. If you are on a narcotic, it is a good idea to take a stool softener such as colace or senna to avoid constipation If you take blood thinner such as aspirin, Plavix, Coumadin, Effient, Eliquis etc for conditions such as Afib, DVT, Pulmonary embolus, coronary disease, stents etc please speak with your surgeon about specific details as to when you can resume these medications. Follow up: Please call the office, , after surgery to arrange a 3 week follow up for wound check. Wound Care: You may remove your dressing on the first day after surgery. ?You may ?leave open to air. Please do not remove the steri strips underneath. they will fall off on their own in one week. IT IS NORMAL FOR THE WOUND TO OOZE OR BE BLOODY FOR A FEW DAYS AFTER SURGERY. ?IF THIS HAPPENS JUST PLACE NEW DRESSING OVER IT TO AVOID STAINING CLOTHES. You may shower on post op day # 1 We ask that you do not let the water soak the wound. If it does get wet, just towel dry lightly. Please do not scrub your incision or place any type of chemical/ointment on the wound. No tub baths, pools or jacuzzis for one month. If you have any leaking or redness from your wound, or fevers, please call office Care Plan Goals: Discharge to rehab to recover from stroke and spine surgery Health Concerns: As above recovering from surgery and stroke Plan of Treatment: Discharge to rehab Follow-up with Neurology Dr Parsons and Neurosurgery Dr Shaw in 2-3 weeks Assessment: Stable
--- NOTE | 2024-06-20 12:37 | MHC.STROKE ---
Notified of patient by López Walker neurosurgical PA at 06/19/24 at 1152. Patient had surgery performed on 06/18 and the surgical staff was not notified by the patient of recent left lower extremity weakness. Pt reporting that approximately 2 weeks ago she woke one morning with weakness of her left lower extremity. There was no inciting incident. Patient reported this to the rounding PA. An MRI was ordered and completed. Patient was seen by Dr. Parsons 06/19 MRI did show a stroke. Interventions included: Heparin, Aspirin, Swallow screen, Stroke Education, PT/OT, request for lipid profile and a statin to be ordered. Upon meeting patient, she was sleepy but arousable to verbal stimuli. Pt had been medicated and worked with PT. Pt answering questions appropriately. Stroke Education provided to patient. Pamphlet and diagram given to patient. Risk factors discussed: diet, medication, activity, I also spoke with her daughter Yamel via telephone to provide update from stroke perspective. All questions answered. Plan is for patient to be discharge to IRF. Will continue to assist as needed.
[2024-06-20 12:52] LABS: Cholesterol 143 mg/dL (<200); HDL Cholesterol 33 mg/dL (>40); LDL Cholesterol Calculated 81 mg/dL (<100); Triglycerides 145 mg/dL (<150)
[2024-06-20] MEDS: oxyCODONE HCl Immed Release 5 MG TABLET 10 MG PO (13:32)
[2024-06-20 14:07] VITALS: BP 137/60; PULSE 94; RESP 16; TEMP 36.9; O2SAT 95
== END 2024-06-20 14:02 | DRG 456 ==
LOC: HO.SSSA 06:09 → HO.S3 13:41
PROVIDERS: Neurological Surgery; Nurse Practitioner; Physician Assistant; Admitting Provider Physician Assistant; PCP Internal Medicine; Visit Provider Physician Assistant
PROC: 0SG00A0 Fusion of Lumbar Vertebral Joint with Interbody Fusion Device, Anterior Approach, Anterior Column, Open Approach (ICD-10-PCS; principal; 2024-06-18 07:30)
DX: M51.35 Other intervertebral disc degeneration, thoracolumbar region (principal); I63.9 Cerebral infarction, unspecified; M41.55 Other secondary scoliosis, thoracolumbar region; Z87.891 Personal history of nicotine dependence; Z79.899 Other long term (current) drug therapy
CPT/HCPCS: 36415; 70496; 70498; 70551; 80048; 80061; 82565; 84520; 85027; 86850; 86900; 86901; 97162; 97167; 97530; C1713; C1758; C1889; J0131; J0665; J0666; J1100; J1171; J1644; J1885; J2003; J2250; J2405; J2704; J3010; J3370; J3371; L8699; Q9957; Q9967

== ENCOUNTER 2024-06-18 06:01 | Outpatient (BNV) | payer MEDICARE, SELFPAY | END 2024-06-19 19:09 | PROVIDERS: Admitting Provider Physician Assistant; PCP Internal Medicine; Visit Provider Nuclear Medicine | DX: I67.82 Cerebral ischemia (principal) | CPT/HCPCS: 70551 ==

== ENCOUNTER → 2024-06-18 06:01 | Outpatient (BNV) | payer MEDICARE, SELFPAY | PROVIDERS: Admitting Provider Physician Assistant; PCP Internal Medicine; Visit Provider Physician Assistant | DX: I63.9 Cerebral infarction, unspecified (principal); M41.50 Other secondary scoliosis, site unspecified; Z48.89 Encounter for other specified surgical aftercare | CPT/HCPCS: 99024; 99499 ==

== ENCOUNTER → 2024-06-18 06:01 | Outpatient (BNV) | payer MEDICARE, SELFPAY | PROVIDERS: Admitting Provider Physician Assistant; PCP Internal Medicine; Visit Provider Psychiatry & Neurology Neurology | DX: I67.82 Cerebral ischemia (principal); I69.354 Hemiplegia and hemiparesis following cerebral infarction affecting left non-dominant side | CPT/HCPCS: 99222 ==

== ENCOUNTER 2024-07-17 06:28 | Emergency (ER) | payer MEDICARE, SELFPAY ==
--- NOTE | ~2024-07-17 | XR_ITS ---
EXAMINATION: XR KNEE, LEFT CLINICAL INFORMATION: pain, injury COMPARISON: None available. TECHNIQUE: 2 views of the left knee. FINDINGS: Metallic prosthesis with a femoral and tibial plateau components well seated in the osseous structures. The prostate is intact. The alignment is normal. No loosening. No cortical disruption in the osseous structures. XR/XR knee LT 2V IMPRESSION: Total left knee arthroplasty prosthesis, intact without displacement. Electronically signed by: Edmond Paniagua MD 07/17/2024 11:11 AM [facility]
--- NOTE | ~2024-07-17 | XR_ITS ---
EXAMINATION: XR CHEST CLINICAL INFORMATION: weakness, dizziness COMPARISON: April 16, 2023. TECHNIQUE: 2 views of the chest were obtained. FINDINGS: No consolidation pleural effusion or pneumothorax. Cardiomediastinal silhouette demonstrates a moderate-sized hiatal hernia. Calcified plaque thoracic aorta. Metallic hardware for a thoracolumbar fusion no fully included in the exam. Pineal versus osteoporosis. XR/XR chest 2V IMPRESSION: No acute airspace disease. Hiatal hernia, moderate size. Electronically signed by: Edmond Paniagua MD 07/17/2024 10:21 AM [facility]
--- NOTE | ~2024-07-17 | CT_ITS ---
EXAMINATION: CT HEAD WITHOUT CONTRAST CLINICAL INFORMATION: fall, pain COMPARISON: Correlated to MRI dated June 19, 2024 demonstrated acute nonhemorrhagic ischemia. TECHNIQUE: Contiguous axial imaging was performed from the skull base to vertex without intravenous administration of contrast. This CT examination was performed using dose optimization techniques as appropriate, variously including the following: *Automated exposure control *Adjustment of mA and/or kV according to patient size (this includes techniques or standardized protocols for targeted exams where dose is matched to indication/reason for exam; i.e. extremities or head) *Use of iterative reconstruction technique DLP: 634.9 mGy-cm FINDINGS: The bony calvarium is intact. The skull base is intact. No acute intracranial hemorrhage, mass effect, midline shift, hydrocephalus or herniation. Bilateral multifocal patchy and confluent deep periventricular white matter hypodensities involving centrum semiovale and garcia radiata. Old lacunar infarcts in the centrum semiovale and garcia radiata and right cingulate gyrus. Prominence of the extra-axial CSF spaces cerebral sulci and ventricles. Calcified plaques in the V4 segments of the vertebral arteries and cavernous supracavernous segments both ICAs. Posterior cranial fossa contents demonstrated no acute intracranial hemorrhage or mass effect. Sellar/suprasellar region demonstrated no gross masses or hemorrhage. Craniocervical junction is intact. No hematoma in the intraconal or extraconal compartments of the orbits. There is an apparent high riding left internal jugular bulb. No air-fluid levels in the included paranasal sinuses. Tympanic cavities and mastoid air cells are aerated. Minimal secretions in the right mastoid air cells.. CT/CT head/brain wo IV con IMPRESSION: No acute fracture, bony calvarium. No acute intracranial hemorrhage. Small vessel occlusive disease. Superimposed acute stroke/nonhemorrhagic ischemia cannot be excluded. Global cerebral atrophy. Probable high riding left internal jugular bulb. Electronically signed by: Edmond Paniagua MD 07/17/2024 11:09 AM [facility]
--- NOTE | ~2024-07-17 | CT_ITS ---
EXAMINATION: CT CERVICAL SPINE WITHOUT CONTRAST CLINICAL INFORMATION: Status post fall. COMPARISON: None available. TECHNIQUE: Contiguous axial images through the cervical spine using 3 mm collimation with bone and soft tissue algorithm. Sagittal and coronal reformatted images acquired. This CT examination was performed using dose optimization techniques as appropriate, variously including the following: *Automated exposure control *Adjustment of mA and/or kV according to patient size (this includes techniques or standardized protocols for targeted exams where dose is matched to indication/reason for exam; i.e. extremities or head) *Use of iterative reconstruction technique DLP: 296.50 mGy centimeter. FINDINGS: Degenerative changes in the periodontal C1 region. Craniocervical junction is intact. Multilevel marginal osteophyte formation and endplate irregularity decreased intervertebral disc height and subchondral cyst formation at C6-7 and to a lesser extent C3-4, C5-6 and C4-5 levels. Grade 1 anterolisthesis C4-5 likely degenerative. Reverse curvature apex at C5-6. Facet joint hypertrophy at multiple levels from C2 C7 more conspicuous at C3-4. Calcifications of the ligamentum flavum from C3 to C5. C1 is intact. C2 is intact. C3 is intact. C4 is intact. C5 is intact. C6 is intact. C7 is intact.. No prevertebral compartment hematoma. Calcified plaques in the ICAs. Tympanic cavities and mastoid cells are aerated. Calcified plaques in the cavernous supracavernous segments both ICAs and V4 segments of the left vertebral artery. CT/CT cervical spine wo IV con IMPRESSION: Level cervical spondylosis resulting in grade 1 anterolisthesis C4-5 without acute fracture or trauma-related listhesis. Fleischner guidelines were followed. Electronically signed by: Edmond Paniagua MD 07/17/2024 11:04 AM [facility]
--- NOTE | ~2024-07-17 | CT_ITS ---
EXAMINATION: CT ABDOMEN PELVIS WITHOUT IV CONTRAST HISTORY: fall, pain COMPARISON: There are no prior studies for comparison. TECHNIQUE: CT scan of the abdomen and pelvis was performed without contrast using standard departmental protocol. Coronal and sagittal reformatted images were generated and reviewed. Oral contrast material was not administered at the request of the referring physician. This CT exam was performed with one or more of the following dose reduction techniques: automated exposure control, adjustment of the mA and/or kV according to patient size, use of iterative reconstruction technique. DLP: 588.77 mGy-cm FINDINGS: LOWER CHEST: The visualized lung bases are clear. There is no pleural effusion. CARDIOVASCULATURE: The heart is normal in size. There is no pericardial effusion. LIVER: The liver is normal in size and contour. The liver has an unremarkable unenhanced appearance. GALLBLADDER / BILE DUCTS: The gallbladder is unremarkable. There is no intra or extrahepatic biliary ductal dilatation. SPLEEN: The spleen is normal in size and has an unremarkable unenhanced appearance. PANCREAS: The pancreas has an unremarkable unenhanced appearance. ADRENAL GLANDS: Unremarkable. KIDNEYS/RETROPERITONEUM: No renal calculi are identified. There is no hydronephrosis. There is a 1.2 cm cyst at the anterior aspect of the right kidney. LYMPH NODES: No retroperitoneal lymphadenopathy is identified in the abdomen or pelvis. VASCULATURE: The abdominal aorta demonstrates atherosclerotic calcification, but is normal in caliber. MESENTERY/PERITONEUM: No free fluid. No masses. There is no free intraperitoneal gas. STOMACH: There is a large hiatal hernia. SMALL BOWEL: The small bowel is normal in caliber. COLON: The colon is unremarkable. APPENDIX: The appendix is not seen, however no inflammatory changes are seen adjacent to the cecum. URINARY BLADDER/PELVIC ORGANS: The urinary bladder is unremarkable. The uterus has an unremarkable unenhanced appearance. BONES / SOFT TISSUES: The patient is status post posterior spinal fusion from T11 through L5 with pedicle screws and spinal stabilization rods. There is slight retrolisthesis of L3 on L4 and grade I spondylolisthesis of L4 on L5. There is diffuse degenerative disc disease. No fracture is seen. The patient is status post left total hip arthroplasty. CT/CT abdomen pelvis wo IV con IMPRESSION: No evidence of traumatic injury to the abdomen or pelvis on this unenhanced examination. Please note that evaluation for solid organ injury is limited by lack of intravenous contrast material. Electronically signed by: Mukesh Zacarias MD 07/17/2024 10:30 AM [facility]
[2024-07-17 07:09] VITALS: BP 146/88; PULSE 79; PULSE 82; RESP 16; TEMP 36.7; O2SAT 97; BMI 27.5
[2024-07-17 07:20] VITALS: PULSE 79; RESP 16
--- NOTE | 2024-07-17 07:23 | ECG_ITS ---
Test Reason : syncope Blood Pressure : */* mmHG Vent. Rate : 79 BPM Atrial Rate : * BPM P-R Int : * ms QRS Dur : 92 ms QT Int : 398 ms P-R-T Axes : * -16 10 degrees QTcB Int : 456 ms Poor data quality Possible Accelerated Junctional rhythm Abnormal ECG When compared with ECG of 09-Jul-2023 07:43, Possible Junctional rhythm has replaced Sinus rhythm Referred By: Generic ED Physician Electronically Signed By: CLEMENTINE ACUNA MD
--- OUTSIDE RECORDS SUMMARY | 2024-07-17 07:29 | XMS_ITS | Encounter Summary ---
Author Organization [facility] Address [address] [place] [address] Care Team Providers Care Consulting Analyst Name Role Phone Leonardo García MD Primary Care Provider [phone] Encounter Details Date Type Department Care Team (Late st Contact Info) Description 06/23/[address] [facility] - Main Lab [address] [place] [address] Chris Barlow MD [address] [place] [phone] Encounter for other general examination Social History Tobacco Use Types Packs/Day Years Used Date Smoking Tobacco: Former Cigarettes Q uit: 06/04/1961 Smokeless Tobacco: Never Alcohol Use Standard Drinks/Week Comments Yes 1 (1 standard drink = 0.6 oz pur e alcohol) Comments Unknown Sex and Gender Information Value Date Recorded Sex Assigned at Not on file Legal Sex Female 10:07 PM EST Gender Identity Not on file Sexual Orientation Not on file documented as of this encounter Plan of Treatment Not on file documented as of this encounter Procedures Procedure Name Priority Date/Time Associated Diagnosis Comments MAGNESIUM Routine 06/23/2024 5:46 AM EST Encounter for other general examination BASIC METABOLIC PANEL Routine 06/23/2024 5:46 AM EST Encounter for other general examination documented in this encounter Results * Magnesium (06/23/2024 5:46 AM EST) Magnesium 2.1 1.9 - 2.6 mg/dL LAB CHEMISTRY METHOD 06/23/2024 12:17 PM EST [facility] Blood Venous blood specimen / Unknown Venipuncture / Unknown 06/23/2024 5:46 AM EST 06/23/2024 10:54 AM EST us Chris Barlow MD LAB BLOOD ORDERABLES Final Resu lt [facility] [address] [place] [address], [place] [phone] * (ABNORMAL) Basic metabolic panel (06/23/2024 5:46 AM EST) Sodium 137 133 - 145 mmol/L LAB CHEMISTRY METHOD 06/23/2024 12:24 PM [facility] Potassium 3.7 3.5 - 5.5 mmol/L LAB CHEMISTRY METHOD 06/23/2024 12:24 PM [facility] Chloride 100 96 - 110 mmol/L LAB CHEMISTRY METHOD 06/23/2024 12:24 PM [facility] CO2 29 21 - 32 mmol/L LAB CHEMISTRY METHOD 06/23/2024 12:24 PM [facility] Anion Gap 8 3 - 11 LAB CHEMISTRY METHOD 06/23/2024 12:24 PM [facility] Glucose 106(H) 70 - 100 mg/dL LAB CHEMISTRY METHOD 06/23/2024 12:24 PM [facility] BUN 23 5 - 25 mg/dL LAB CHEMISTRY METHOD 06/23/2024 12:24 PM [facility] Creatinine 0.83 0.50 - 1.10 mg/dL LAB CHEMISTRY METHOD 06/23/2024 12:24 PM [facility] eGFR 70 >=60 mL/min/1. 73m2 LAB CHEMISTRY METHOD 06/23/2024 12:24 PM [facility] Comment:Calculation based on the??Chronic Kidney Disease Epidemiology Collaboration (CKD-EPI) equation refit??without adjustment for race. BUN/Creatinine Ratio 27.7 LAB CHEMISTRY METHOD 06/23/2024 12:24 PM EST [facility] Calcium 8.4(L) 8.5 - 10.5 mg/dL LAB CHEMISTRY METHOD 06/23/2024 12:24 PM EST [facility] Blood Venous blood specimen / Unknown Venipuncture / Unknown 06/23/2024 5:46 AM EST 06/23/2024 10:54 AM EST us Chris Barlow MD LAB BLOOD ORDERABLES Final Resu lt [facility] [address] [place] [address], documented in this encounter Visit Diagnoses Diagnosis Encounter for other general examination documented in this encounter Care Teams Consulting Analyst Relationship Specialty Start Date End Date Leonardo García MD [address] [place] [phone] PCP - General Internal Medicine 06/30/24 documented as of this encounter
--- OUTSIDE RECORDS SUMMARY | 2024-07-17 07:29 | XMS_ITS | Encounter Summary ---
Author Organization [facility] Address [address] [place] [address] Care Team Providers Care Bank Examiner Name Role Phone Leonardo García MD Primary Care Provider [phone] Encounter Details Date Type Department Care Team (Late st Contact Info) Description 06/22/2024 Lab Requisition [facility] - Main Lab [address] [place] [address] Chris Barlow MD [address] [place] [address] Encounter for other general examination Social History [...] Procedure Name Priority Date/Time Associated Diagnosis Comments BASIC METABOLIC PANEL Routine 06/22/2024 6:05 AM EST Encounter for other general examination documented in this encounter Results * (ABNORMAL) Basic metabolic panel (06/22/2024 6:05 AM EST) Sodium 137 133 - 145 mmol/L LAB CHEMISTRY METHOD 06/22/2024 9:17 AM EST [facility] Potassium 3.4(L) 3.5 - 5.5 mmol/L LAB CHEMISTRY METHOD 06/22/2024 9:[address] [facility] Chloride 101 96 - 110 mmol/L LAB CHEMISTRY METHOD 06/22/2024 9:[address] [facility] CO2 28 21 - 32 mmol/L LAB CHEMISTRY METHOD 06/22/2024 9:[address] [facility] Anion Gap 8 3 - 11 LAB CHEMISTRY METHOD 06/22/2024 9:[address] [facility] Glucose 128(H) 70 - 100 mg/dL LAB CHEMISTRY METHOD 06/22/2024 9:[address] [facility] BUN 14 5 - 25 mg/dL LAB CHEMISTRY METHOD 06/22/2024 9:[address] [facility] Creatinine 0.60 0.50 - 1.10 mg/dL LAB CHEMISTRY METHOD 06/22/2024 9:[address] [facility] eGFR 90 >=60 mL/min/1. 73m2 LAB CHEMISTRY METHOD 06/22/2024 9:[address] [facility] Comment:Calculation based on the??Chronic Kidney Disease Epidemiology Collaboration (CKD-EPI) equation refit??without adjustment for race. BUN/Creatinine Ratio 23.3 LAB CHEMISTRY METHOD 06/22/2024 9:[address] [facility] Calcium 8.3(L) 8.5 - 10.5 mg/dL LAB CHEMISTRY METHOD 06/22/2024 9:[address] [facility] Blood Venous blood specimen / Unknown Venipuncture / Unknown 06/22/2024 6:05 AM EST 06/22/2024 8:27 AM EST us Chris Barlow MD LAB BLOOD ORDERABLES Final Resu lt [facility] [address] [place] [address], documented in this encounter Visit Diagnoses Diagnosis Encounter for other general examination documented in this encounter Care Teams Bank Examiner Relationship Specialty Start Date End Date Leonardo García MD [address] [place] [phone] PCP - General Internal Medicine 06/30/24 documented as of this encounter
--- OUTSIDE RECORDS SUMMARY | 2024-07-17 07:29 | XMS_ITS | Encounter Summary ---
Author Organization [facility] Address [address] [place] [address] Care Team Providers Care Extruding Department Supervisor Name Role Phone Leonardo García MD Primary Care Provider [phone] Encounter Details Date Type Department Care Team (Late st Contact Info) Description 06/21/2024 Lab Requisition [facility] - Main Lab [address] [facility] [place] [address] Chris Barlow MD [address] [place] [address] Encounter for other general examination Social History [...] Procedure Name Priority Date/Time Associated Diagnosis Comments CBC WITH AUTO DIFFERENTIAL Routine 06/21/2024 7:13 AM EST Encounter for other general examination CBC AND DIFFERENTIAL Routine 06/21/2024 7:13 AM EST Encounter for other general examination MAGNESIUM Routine 06/21/2024 7:13 AM EST Encounter for other general examination COMPREHENSIVE METABOLIC PANEL Routine 06/21/2024 7:13 AM EST Encounter for other general examination documented in this encounter Results * (ABNORMAL) CBC auto differential (06/21/2024 7:13 AM EST) [facility] WBC 8.0 4.8 - 10.8 K/mcL LAB HEMETOLOGY METHOD 06/21/2024 10:55 AM [facility] RBC 3.50(L) 3.80 - 4.80 M/mcL LAB HEMETOLOGY METHOD 06/21/2024 10:55 AM [facility] Hemoglobin 10.5(L) 11.5 - 16.0 g/dL LAB HEMETOLOGY METHOD 06/21/2024 10:55 AM [facility] Hematocrit 30.6(L) 35.0 - 47.0 % LAB HEMETOLOGY METHOD 06/21/2024 10:55 AM [facility] MCV 88.7 79.0 - 98.0 FL LAB HEMETOLOGY METHOD 06/21/2024 10:55 AM [facility] MCH 30.4 27.0 - 32.0 pcg LAB HEMETOLOGY METHOD 06/21/2024 10:55 AM [facility] MCHC 34.3 32.0 - 37.0 g/dL LAB HEMETOLOGY METHOD 06/21/2024 10:55 AM [facility] RDW 13.4 11.0 - 15.0 % LAB HEMETOLOGY METHOD 06/21/2024 10:55 AM [facility] Platelets 257 130 - 400 K/mcL LAB HEMETOLOGY METHOD 06/21/2024 10:55 AM [facility] MPV 9.7 7.0 - 11.0 FL LAB HEMETOLOGY METHOD 06/21/2024 10:55 AM [facility] NRBC 0.0 <1.0 % LAB HEMETOLOGY METHOD 06/21/2024 10:55 AM [facility] NRBC Absolute 0.00 <0.10 K/mcL LAB HEMETOLOGY METHOD 06/21/2024 10:55 AM [facility] Neutrophils Relative 73.2 % LAB HEMETOLOGY METHOD 06/21/2024 10:55 AM [facility] Lymphocytes Relative 16.0 % LAB HEMETOLOGY METHOD 06/21/2024 10:55 AM [facility] Monocytes Relative 7.3 % LAB HEMETOLOGY METHOD 06/21/2024 10:55 AM [facility] Eosinophils Relative 2.3 % LAB HEMETOLOGY METHOD 06/21/2024 10:55 AM [facility] Basophils Relative 0.6 % LAB HEMETOLOGY METHOD 06/21/2024 10:55 AM [facility] Immature Granulocytes Relative 0.6 % LAB HEMETOLOGY METHOD 06/21/2024 10:55 AM [facility] Neutrophils Absolute 5.84 1.50 - 7.00 K/mcL LAB HEMETOLOGY METHOD 06/21/2024 10:55 AM [facility] Lymphocytes Absolute 1.28 1.00 - 5.00 K/mcL LAB HEMETOLOGY METHOD 06/21/2024 10:55 AM [facility] Monocytes Absolute 0.58 0.20 - 1.00 K/mcL LAB HEMETOLOGY METHOD 06/21/2024 10:55 AM [facility] Eosinophils Absolute 0.18 0.00 - 0.50 K/mcL LAB HEMETOLOGY METHOD 06/21/2024 10:55 AM [facility] Basophils Absolute 0.05 0.00 - 0.20 K/mcL LAB HEMETOLOGY METHOD 06/21/2024 10:55 AM [facility] Immature Granulocytes Absolute 0.05(H) 0.00 - 0.03 K/mcL LAB HEMETOLOGY METHOD 06/21/2024 10:55 AM [facility] Blood Venous blood specimen / Unknown Venipuncture / Unknown 06/21/2024 7:13 AM EST 06/21/2024 10:03 AM EST Chris Barlow MD LAB BLOOD ORDERABLES Final Resu lt Performing Organization Address [facility]/ZIP Co de Phone Number [facility] [address] [place] [address], [place] [phone] * (ABNORMAL) Magnesium (06/21/2024 7:13 AM EST) Magnesium 1.7(L) 1.9 - 2.6 mg/dL LAB CHEMISTRY METHOD 06/21/2024 11:21 AM EST [facility] Blood Venous blood specimen / Unknown Venipuncture / Unknown 06/21/2024 7:13 AM EST 06/21/2024 10:03 AM EST Chris Barlow MD LAB BLOOD ORDERABLES Final Resu lt Performing Organization Address [facility]/ZIP Co de Phone Number [facility] [address] [place] [address], [place] [phone] * (ABNORMAL) Comprehensive metabolic panel (06/21/2024 7:13 AM EST) Pathologist [facility] Sodium 138 133 - 145 mmol/L LAB CHEMISTRY METHOD 06/21/2024 11:50 AM [facility] Potassium 2.8(LL) 3.5 - 5.5 mmol/L LAB CHEMISTRY METHOD 06/21/2024 11:50 AM EST [facility] Chloride 103 96 - 110 mmol/L LAB CHEMISTRY METHOD 06/21/2024 11:50 AM [facility] CO2 30 21 - 32 mmol/L LAB CHEMISTRY METHOD 06/21/2024 11:50 AM [facility] Anion Gap 5 3 - 11 LAB CHEMISTRY METHOD 06/21/2024 11:50 AM [facility] Glucose 109(H) 70 - 100 mg/dL LAB CHEMISTRY METHOD 06/21/2024 11:50 AM [facility] BUN 8 5 - 25 mg/dL LAB CHEMISTRY METHOD 06/21/2024 11:50 AM [facility] Creatinine 0.62 0.50 - 1.10 mg/dL LAB CHEMISTRY METHOD 06/21/2024 11:50 AM [facility] eGFR 89 >=60 mL/min/1. 73m2 LAB CHEMISTRY METHOD 06/21/2024 11:50 AM [facility] Comment:Calculation based on the??Chronic Kidney Disease Epidemiology Collaboration (CKD-EPI) equation refit??without adjustment for race. BUN/Creatinine Ratio 12.9 LAB CHEMISTRY METHOD 06/21/2024 11:50 AM [facility] Calcium 8.4(L) 8.5 - 10.5 mg/dL LAB CHEMISTRY METHOD 06/21/2024 11:50 AM [facility] AST (SGOT) 71(H) 10 - 42 unit/L LAB CHEMISTRY METHOD 06/21/2024 11:50 AM [facility] ALT (SGPT) 46 10 - 60 unit/L LAB CHEMISTRY METHOD 06/21/2024 11:50 AM [facility] Alkaline Phosphatase 95 42 - 121 unit/L LAB CHEMISTRY METHOD 06/21/2024 11:50 AM [facility] Total Protein 5.6(L) 6.0 - 8.0 g/dL LAB CHEMISTRY METHOD 06/21/2024 11:50 AM [facility] Albumin 2.9(L) 3.2 - 5.0 g/dL LAB CHEMISTRY METHOD 06/21/2024 11:50 AM [facility] Total Bilirubin 0.7 0.0 - 1.4 mg/dL LAB CHEMISTRY METHOD 06/21/2024 11:50 AM [facility] Blood Venous blood specimen / Unknown Venipuncture / Unknown 06/21/2024 7:13 AM EST 06/21/2024 10:03 AM EST us Chris Barlow MD LAB BLOOD ORDERABLES Final Resu lt Performing Organization Address City/State/[facility] Co de Phone Number [facility] [address] [place] [address], documented in this encounter Visit Diagnoses Diagnosis Encounter for other general examination documented in this encounter Care Teams Extruding Department Supervisor Relationship Specialty Start Date End Date Leonardo García MD [address] [place] [phone] PCP - General Internal Medicine 06/30/24 documented as of this encounter
--- OUTSIDE RECORDS SUMMARY | 2024-07-17 07:29 | XMS_ITS | Clinical Summary ---
Author Organization [address] Address [address] [place] [phone] Phone Care Team Providers Care X Ray Service Engineer Name Role Phone Leonardo García MD Primary Care Provider [phone] Encounters Date Type Department Care Team Description 07/07/2024 Lab Requisition [facility] Lab [address] [place] [address] Chris Barlow MD Encounter for other general examination 07/06/2024 Lab Requisition [facility] Lab [address] [place] [address] Chris Barlow MD Encounter for other general examination 07/05/2024 Lab Requisition [facility] Lab [address] [place] [address] Chris Barlow MD Encounter for other general examination 06/29/2024 Lab Requisition [facility] Lab [address] [place] [address] Chris Barlow MD Encounter for other general examination 06/23/2024 Lab Requisition [facility] Lab [address] [place] [address] Chris Barlow MD Encounter for other general examination 06/22/2024 Lab Requisition [facility] Lab [address] [place] [address] Chris Barlow MD Encounter for other general examination 06/21/2024 Lab Requisition [facility] Lab [address] [facility] [place] [address] Chris Barlow MD Encounter for other general examination from Last 3 Months Surgical History Surgery Date Site/Laterality Comments APPENDECTOMY PROCEDURE:APPENDECTOMY CATARACT EXTRACTION W/ INTRAOCULAR LENS IMPLANT PROCEDURE:CATARACT EXTRACTION W/ INTRAOCULAR LENS IMPLANT TONSILLECTOMY PROCEDURE:TONSILLECTOMY DENTAL SURGERY PROCEDURE:DENTAL SURGERY;COMMENT:wisdom teeth ROTATOR CUFF REPAIR 2013 Right PROCEDURE:ROTATOR CUFF REPAIR BACK SURGERY PROCEDURE:BACK SURGERY LUMBAR LAMINECTOMY 08/30/2017 Bilateral Posterior PROCEDURE:LUMBAR LAMINECTOMY;COMMENT:Proced ure: L4, L5 LAMINECTOMY DECOMPRESSION; Surgeon: Emeka Lopez MD; Location: [facility]; Service: Spine; Laterality: Bilateral Posterior; LUMBAR FUSION 08/30/2017 Bilateral Posterior PROCEDURE:LUMBAR FUSION;COMMENT:Procedure: L4 - 5 FUSION SPINE LUMBAR POSTERIOR, INSTRUMENTED ARTHRODESIS; Surgeon: Emeka Lopez MD; Location: [facility]; Service: Spine; Laterality: Bilateral Posterior; AUTOGRAFT/SPINE SURGERY 08/30/2017 Left PROCEDURE:AUTOGRAFT/SPINE SURGERY;COMMENT:Procedure: AUTOGRAFT BONE SPINE; Surgeon: Emeka Lopez MD; Location: [facility]; Service: Spine; Laterality: Left; TOTAL KNEE ARTHROPLASTY 01/03/2021 Left PROCEDURE:TOTAL KNEE ARTHROPLASTY TOTAL HIP ARTHROPLASTY 02/16/2022 Left PROCEDURE:TOTAL HIP ARTHROPLASTY;COMMENT:David escalerae: REPLACEMENT TOTAL HIP; Surgeon: Ottoniel Wells MD; Location: [facility] Service: Orthopedics; Laterality: Left; Medical History Medical History Date Comments Bronchitis, chronic (CMS/HCC) DX :Bronchitis, chronic (HCC);COMMENT:May 2017 GERD (gastroesophageal reflux disease) DX:GERD (gastroesophageal reflux disease) Hypertension DX:Hypertension Hyperlipidemia DX:Hyperlipidemi a PONV (postoperative nausea and vomiting) DX:PONV (postoperative nausea and vomiting) Numbness of right foot DX:Numbne ss of right foot Nasal fracture 08/2018 DX:Nasal fractur e Rosacea DX:Rosacea 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; COMMENT:Treated x 1 year Seasonal allergies DX:Seasonal a llergies Social History Tobacco Use Types Packs/Day Years [...] on file Sexual Orientation Not on file Obstetrics History Last Filed Vital Signs Vital Sign Reading Time Taken Comments Blood Pressure - - Pulse - - Temperature - - Respiratory Rate - - Oxygen Saturation - - Inhaled Oxygen Concentration - - Weight 84.8 kg (187 lb) 11/14/2021 10:12 AM EDT Height 162.6 cm (5' 4 ) 11/14/2021 10:12 AM EDT Body Mass Index 32.1 11/14/2021 10:12 AM EDT Plan of Treatment Health Maintenance Due Date Last Done Comments DTaP,Tdap,and Td Vaccines (1 - Tdap) 1947 Pneumococcal Vaccine: 50+ Years (1 of 2 - PCV) 1961 Zoster Vaccines (1 of 2) 1961 RSV Immunization Patients 60 + Years Old (1 - 1-dose 75+ series) 2017 Depression Screening 05/06/2022 Falls Risk Assessment 05/06/2022 Medicare Annual Wellness Visit 05/06/2022 Osteoporosis Screening (Bone Density Screening) 05/06/2022 Social Influencers of Health Screening 05/06/2022 COVID-19 Vaccine (2023-2 5 season) 2024 05/11/2021, 08/04/2020, 07/14/2020 Influenza Vaccine (#1) 2024 HIB Vaccines Aged Out No longer eligi ble based on patient's age to complete this topic HPV Vaccines Aged Out No longer eligi ble based on patient's age to complete this topic Hepatitis A Vaccines Aged Out No long er eligible based on patient's age to complete this topic Hepatitis B Vaccines Aged Out No long er eligible based on patient's age to complete this topic IPV Vaccines Aged Out No longer eligi ble based on patient's age to complete this topic MMR Vaccines Aged Out No longer eligi ble based on patient's age to complete this topic Meningococcal ACWY Vaccine Aged Out N o longer eligible based on patient's age to complete this topic Meningococcal B Vacine Aged Out No lo nger eligible based on patient's age to complete this topic RSV Immunization Patients Under 20 months Aged Out No longer eligible b ased on patient's age to complete this topic Varicella Vaccines Aged Out No longer eligible based on patient's age to complete this topic Medical Devices Implanted Type Area Stock Mixer Device Identifier Shelf Expiration Date Model / Serial / Lot Cement Bone Surg Simplex Radiopq Stry-Howm [id number] Implanted:Qty: 1 on 02/16/2022 by Ottoniel Wells MD Left: Hip [employer] [id number] 05/03/2023 6191-1-010 / / [id number] Hip Head Delta Biolox 36mm-2.5 Stry-Howm [id number] 191 Implanted:Qty: 1 on 02/16/2022 by Ottoniel Wells MD Left: Hip [employer] [id number] 11/10/2026 6570-0-436 / / [id number] Cement Bone Surg Simplex Radiopq Stry-Howm [id number] 092 Implanted:Qty: 1 on 02/16/2022 by Ottoniel Wells MD Left: Hip [employer] [id number] 05/03/2023 6191-1-010 / / [id number] Lp Hex Screw 6.5x30mm Stry-Howm [id number] 78 Implanted:Qty: 1 on 02/16/2022 by Ottoniel Wells MD Left: Hip [employer] [id number] 12/15/2026 6129-7765 / / [id number] Tritanium Cluster Hole Shell 52mm Stry-Howm [id number] Implanted:Qty: 1 on 02/16/2022 by Ottoniel Wells MD Left: Hip [employer] [id number] 09/28/2026 702-04-52E / / [id number] Lp Hex Screw 6.5x20mm Stry-Howm [id number] 57 Implanted:Qty: 1 on 02/16/2022 by Ottoniel Wells MD Left: Hip [employer] [id number] 11/23/2026 8519-8286 / / [id number] Hip Insrt X3 Trident 0d 36mm E Stry-Howm [id number] 921 Implanted:Qty: 1 on 02/16/2022 by Ottoniel Wells MD Left: Hip [employer] [id number] 09/24/2025 623-10-36E / / [id number] Hip Stm Parveen 127 #2 30 124 Stry-Howm [id number] Implanted:Qty: 1 on 02/16/2022 by Ottoniel Wells MD Left: Hip [employer] [id number] 10/21/2026 6057-0230D / / [id number] Plug Bone Sm Stry-Howm [id number] 871 Implanted:Qty: 1 on 02/16/2022 by Ottoniel Wells MD Left: Hip [employer] [id number] 11/16/2026 6215-5-001 / / [id number] Hip Dist Spacer Ostnc Univ #8 Stry-How [id number] 90 Implanted:Qty: 1 on 02/16/2022 by Ottoniel Wells MD Left: Hip [employer] [id number] 01/19/2027 1838-2720 / / [id number] Procedures Procedure Name Priority Date/Time Associated Diagnosis Comments CBC WITH AUTO DIFFERENTIAL Routine 07/07/2024 6:34 AM EST Encounter for other general examination CBC AND DIFFERENTIAL Routine 07/07/2024 6:34 AM EST Encounter for other general examination BASIC METABOLIC PANEL Routine 07/07/2024 6:34 AM EST Encounter for other general examination JAY URINE CULTURE TUBE Routine 07/06/2024 10:07 AM EST Encounter for other general examination URINALYSIS WITH REFLEX MICROSCOPIC AND CULTURE Routine 07/06/2024 10:07 AM EST Encounter for other general examination URINALYSIS WITH REFLEX MICROSCOPIC AND CULTURE Routine 07/06/2024 10:07 AM EST Encounter for other general examination CULTURE URINE Routine 07/06/2024 10:07 AM EST Encounter for other general examination CBC WITH AUTO DIFFERENTIAL Routine 07/05/2024 7:00 AM EST Encounter for other general examination MAGNESIUM Routine 07/05/2024 7:00 AM EST Encounter for other general examination CBC AND DIFFERENTIAL Routine 07/05/2024 7:00 AM EST Encounter for other general examination COMPREHENSIVE METABOLIC PANEL Routine 07/05/2024 7:00 AM EST Encounter for other general examination CBC WITH AUTO DIFFERENTIAL Routine 06/29/2024 5:48 AM EST Encounter for other general examination MAGNESIUM Routine 06/29/2024 5:48 AM EST Encounter for other general examination CBC AND DIFFERENTIAL Routine 06/29/2024 5:48 AM EST Encounter for other general examination COMPREHENSIVE METABOLIC PANEL Routine 06/29/2024 5:48 AM EST Encounter for other general examination MAGNESIUM Routine 06/23/2024 5:46 AM EST Encounter for other general examination BASIC METABOLIC PANEL Routine 06/23/2024 5:46 AM EST Encounter for other general examination BASIC METABOLIC PANEL Routine 06/22/2024 6:05 AM EST Encounter for other general examination CBC WITH AUTO DIFFERENTIAL Routine 06/21/2024 7:13 AM EST Encounter for other general examination MAGNESIUM Routine 06/21/2024 7:13 AM EST Encounter for other general examination CBC AND DIFFERENTIAL Routine 06/21/2024 7:13 AM EST Encounter for other general examination COMPREHENSIVE METABOLIC PANEL Routine 06/21/2024 7:13 AM EST Encounter for other general examination from Last 3 Months Results * (ABNORMAL) CBC auto differential (07/07/2024 6:34 AM EST) Only the most recent of4 resultswithin the time period is included. WBC 6.0 4.8 - 10.8 K/mcL LAB HEMETOLOGY METHOD 07/07/2024 10:40 AM [facility] RBC 3.20(L) 3.80 - 4.80 M/mcL LAB HEMETOLOGY METHOD 07/07/2024 10:40 AM [facility] LAB Hemoglobin 10.1(L) 11.5 - 16.0 g/dL LAB HEMETOLOGY METHOD 07/07/2024 10:40 AM [facility] LAB Hematocrit 30.7(L) 35.0 - 47.0 % LAB HEMETOLOGY METHOD 07/07/2024 10:40 AM [facility] MCV 94.8 79.0 - 98.0 FL LAB HEMETOLOGY METHOD 07/07/2024 10:40 AM [facility] LAB MCH 31.2 27.0 - 32.0 pcg LAB HEMETOLOGY METHOD 07/07/2024 10:40 AM [facility] LAB MCHC 32.9 32.0 - 37.0 g/dL LAB HEMETOLOGY METHOD 07/07/2024 10:40 AM [facility] RDW 14.2 11.0 - 15.0 % LAB HEMETOLOGY METHOD 07/07/2024 10:40 AM [facility] Platelets 415(H) 130 - 400 K/mcL LAB HEMETOLOGY METHOD 07/07/2024 10:40 AM [facility] MPV 9.2 7.0 - 11.0 FL LAB HEMETOLOGY METHOD 07/07/2024 10:40 AM [facility] NRBC 0.0 <1.0 % LAB HEMETOLOGY METHOD 07/07/2024 10:40 AM [facility] LAB NRBC Absolute 0.00 <0.10 K/mcL LAB HEMETOLOGY METHOD 07/07/2024 10:40 AM [facility] Neutrophils Relative 57.2 % LAB HEMETOLOGY METHOD 07/07/2024 10:40 AM [facility] Lymphocytes Relative 25.4 % LAB HEMETOLOGY METHOD 07/07/2024 10:40 AM [facility] Monocytes Relative 12.5 % LAB HEMETOLOGY METHOD 07/07/2024 10:40 AM [facility] Eosinophils Relative 3.8 % LAB HEMETOLOGY METHOD 07/07/2024 10:40 AM [facility] Basophils Relative 0.8 % LAB HEMETOLOGY METHOD 07/07/2024 10:40 AM [facility] Immature Granulocytes Relative 0.3 % LAB HEMETOLOGY METHOD 07/07/2024 10:40 AM [facility] Neutrophils Absolute 3.42 1.50 - 7.00 K/mcL LAB HEMETOLOGY METHOD 07/07/2024 10:40 AM [facility] Lymphocytes Absolute 1.52 1.00 - 5.00 K/mcL LAB HEMETOLOGY METHOD 07/07/2024 10:40 AM [facility] Monocytes Absolute 0.75 0.20 - 1.00 K/mcL LAB HEMETOLOGY METHOD 07/07/2024 10:40 AM [facility] Eosinophils Absolute 0.23 0.00 - 0.50 K/mcL LAB HEMETOLOGY METHOD 07/07/2024 10:40 AM [facility] Basophils Absolute 0.05 0.00 - 0.20 K/mcL LAB HEMETOLOGY METHOD 07/07/2024 10:40 AM EST [facility] Immature Granulocytes Absolute 0.02 0.00 - 0.03 K/[facility] LAB HEMETOLOGY METHOD 07/07/2024 10:40 AM [facility] Blood Venous blood specimen / Unknown Venipuncture / Unknown 07/07/2024 6:34 AM EST 07/07/2024 9:05 AM EST us Chris aBrlow MD LAB BLOOD ORDERABLES Final Resu lt [facility] [address] [place] [address], [place] [phone] * Basic metabolic panel (07/07/2024 6:34 AM EST) Only the most recent of3 resultswithin the time period is included. Sodium 135 133 - 145 mmol/L LAB CHEMISTRY METHOD 07/07/2024 11:20 AM [facility] Potassium 4.2 3.5 - 5.5 mmol/L LAB CHEMISTRY METHOD 07/07/2024 11:20 AM [facility] Chloride 100 96 - 110 mmol/L LAB CHEMISTRY METHOD 07/07/2024 11:20 AM [facility] CO2 28 21 - 32 mmol/L LAB CHEMISTRY METHOD 07/07/2024 11:20 AM [facility] Anion Gap 7 3 - 11 LAB CHEMISTRY METHOD 07/07/2024 11:20 AM [facility] Glucose 92 70 - 100 mg/dL LAB CHEMISTRY METHOD 07/07/2024 11:20 AM [facility] BUN 19 5 - 25 mg/dL LAB CHEMISTRY METHOD 07/07/2024 11:20 AM [facility] Creatinine 0.70 0.50 - 1.10 mg/dL LAB CHEMISTRY METHOD 07/07/2024 11:20 AM [facility] LAB eGFR 86 >=60 mL/min/1. 73m2 LAB CHEMISTRY METHOD 07/07/2024 11:20 AM [facility] Comment:Calculation based on the??Chronic Kidney Disease Epidemiology Collaboration (CKD-EPI) equation refit??without adjustment for race. BUN/Creatinine Ratio 27.1 LAB CHEMISTRY METHOD 07/07/2024 11:20 AM [facility] Calcium 9.0 8.5 - 10.5 mg/dL LAB CHEMISTRY METHOD 07/07/2024 11:20 AM [facility] Blood Venous blood specimen / Unknown Venipuncture / Unknown 07/07/2024 6:34 AM EST 07/07/2024 9:05 AM EST us Chris Barlow MD LAB BLOOD ORDERABLES Final Resu lt [facility] [address] [place] [address], [place] [phone] * (ABNORMAL) Urinalysis with reflex microscopic and culture (07/06/2024 10:07 AM EST) Specific [place] Urine 1.022 1.003 - 1.030 LAB URINALYSIS - AUTOMATED METHOD 07/06/2024 3:05 PM [facility] pH, Urine 5.5 5.0 - 8.0 pH LAB URINALYSIS - AUTOMATED METHOD 07/06/2024 3:05 PM [facility] Leukocytes, Urine Large(A) Negative LAB URINALYSIS - AUTOMATED METHOD 07/06/2024 3:05 PM [facility] Nitrite, Urine Positive(A) Negative LAB URINALYSIS - AUTOMATED METHOD 07/06/2024 3:05 PM [facility] Protein, Urine Negative <=Trace mg/dL LAB URINALYSIS - AUTOMATED METHOD 07/06/2024 3:05 PM [facility] Glucose, Urine Negative Negative mg/dL LAB URINALYSIS - AUTOMATED METHOD 07/06/2024 3:05 PM [facility] Ketones, Urine Negative Negative mg/dL LAB URINALYSIS - AUTOMATED METHOD 07/06/2024 3:05 PM [facility] Urobilinogen , Urine 1.0 0.2 - 1.0 mg/dL LAB URINALYSIS - AUTOMATED METHOD 07/06/2024 3:05 PM [facility] Bilirubin, Urine Negative Negative LAB URINALYSIS - AUTOMATED METHOD 07/06/2024 3:05 PM [facility] Blood, Urine Trace(A) Negative LAB URINALYSIS - AUTOMATED METHOD 07/06/2024 3:05 PM [facility] Urine Urine specimen obtained by clean catch procedure / Unknown 07/06/2024 10:07 AM EST 07/06/2024 2:07 PM EST us Chris Barlow MD LAB URINE ORDERABLES Final Resu lt Performing Organization Address City/[facility]/ZIP Co de Phone Number [facility] [address] [place] [address], [place] [phone] * Jay urine culture tube (07/06/2024 10:07 AM EST) Extra Tube Hold for add-ons. 07/06/2024 4:01 PM [facility] Comment:Auto resulted. Urine Urine specimen obtained by clean catch procedure / Unknown 07/06/2024 10:07 AM EST 07/06/2024 2:09 PM EST us Chris Barlow MD LAB URINE ORDERABLES Final Resu lt Performing Organization Address City/[facility]/ZIP Co de Phone Number [facility] [address] [place] [address], [place] [phone] * (ABNORMAL) Culture urine (07/06/2024 10:07 AM EST) Culture, Urine >100,000 CFU/mL Escherichia coli(A) JUDIE 07/08/2024 8:28 AM EST [facility] Urine Urine specimen obtained by clean catch procedure / Unknown 07/06/2024 10:07 AM EST 07/06/2024 3:05 PM EST Narrative Organism Antibiotic Method Susceptibility Escherichia coli Amoxicillin/Clavulanate JUDIE <=2 ug/ml: Susceptible Escherichia coli Ampicillin/Sulbactam JUDIE <=2 ug/ml: Susceptible Escherichia coli Piperacillin/Tazobactam JUDIE <=4 ug/ml: Susceptible Escherichia coli Cefazolin (Urine) JUDIE <=1 ug/ml: Susceptible Escherichia coli Cefoxitin JUDIE <=4 ug/ml: Susceptible Escherichia coli Ceftazidime JUDIE <=0.5 ug/ml: Susceptible Escherichia coli Ceftriaxone JUDIE <=0.25 ug/ml: Susceptible Escherichia coli Cefepime JUDIE <=0.12 ug/ml: Susceptible Escherichia coli Meropenem JUDIE <=0.25 ug/ml: Susceptible Escherichia coli Amikacin JUDIE 2 ug/ml: Susceptible Escherichia coli Gentamicin JUDIE <=1 ug/ml: Susceptible Escherichia coli Ciprofloxacin JUDIE <=0.06 ug/ml: Susceptible Escherichia coli Levofloxacin JUDIE <=0.12 ug/ml: Susceptible Escherichia coli Nitrofurantoin JUDIE <=16 ug/ml: Susceptible Escherichia coli Trimethoprim/Sulfamethoxazole JUDIE <=20 ug/ml: Susceptible Chris Barlow MD LAB MICROBIOLOGY - GENERAL ALONDRA ROTH Final Result [facility] [address] [place] [address], * Magnesium (07/05/2024 7:00 AM EST) Only the most recent of4 resultswithin the time period is included. Magnesium 2.4 1.9 - 2.6 mg/dL LAB CHEMISTRY METHOD 07/05/2024 12:15 PM EST [facility] Blood Venous blood specimen / Unknown Venipuncture / Unknown 07/05/2024 7:00 AM EST 07/05/2024 10:39 AM EST us Chris Barlow MD LAB BLOOD ORDERABLES Final Resu lt [facility] [address] [place] [address], * (ABNORMAL) Comprehensive metabolic panel (07/05/2024 7:00 AM EST) Only the most recent of3 resultswithin the time period is included. Sodium 132(L) 133 - 145 mmol/L LAB CHEMISTRY METHOD 07/05/2024 12:14 PM [facility] Potassium 4.3 3.5 - 5.5 mmol/L LAB CHEMISTRY METHOD 07/05/2024 12:14 PM [facility] Chloride 98 96 - 110 mmol/L LAB CHEMISTRY METHOD 07/05/2024 12:14 PM [facility] CO2 28 21 - 32 mmol/L LAB CHEMISTRY METHOD 07/05/2024 12:14 PM [facility] Anion Gap 6 3 - 11 LAB CHEMISTRY METHOD 07/05/2024 12:14 PM [facility] Glucose 95 70 - 100 mg/dL LAB CHEMISTRY METHOD 07/05/2024 12:14 PM [facility] BUN 21 5 - 25 mg/dL LAB CHEMISTRY METHOD 07/05/2024 12:14 PM [facility] Creatinine 0.80 0.50 - 1.10 mg/dL LAB CHEMISTRY METHOD 07/05/2024 12:14 PM [facility] eGFR 74 >=60 mL/min/1. 73m2 LAB CHEMISTRY METHOD 07/05/2024 12:14 PM [facility] Comment:Calculation based on the??Chronic Kidney Disease Epidemiology Collaboration (CKD-EPI) equation refit??without adjustment for race. BUN/Creatinine Ratio 26.3 LAB CHEMISTRY METHOD 07/05/2024 12:14 PM [facility] Calcium 8.9 8.5 - 10.5 mg/dL LAB CHEMISTRY METHOD 07/05/2024 12:14 PM [facility] AST (SGOT) 20 10 - 42 unit/L LAB CHEMISTRY METHOD 07/05/2024 12:14 PM [facility] ALT (SGPT) 50 10 - 60 unit/L LAB CHEMISTRY METHOD 07/05/2024 12:14 PM [facility] Alkaline Phosphatase 203(H) 42 - 121 unit/L LAB CHEMISTRY METHOD 07/05/2024 12:14 PM [facility] Total Protein 6.1 6.0 - 8.0 g/dL LAB CHEMISTRY METHOD 07/05/2024 12:14 PM [facility] Albumin 3.5 3.2 - 5.0 g/dL LAB CHEMISTRY METHOD 07/05/2024 12:14 PM [facility] Total Bilirubin 0.9 0.0 - 1.4 mg/dL LAB CHEMISTRY METHOD 07/05/2024 12:14 PM [facility] Blood Venous blood specimen / Unknown Venipuncture / Unknown 07/05/2024 7:00 AM EST 07/05/2024 10:39 AM EST us Chris Barlow MD LAB BLOOD ORDERABLES Final Resu lt [facility] [address] [place] [address], from Last 3 Months Insurance MEDICARE [employer] Advance Directives Documents on File Type Date Recorded 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
--- OUTSIDE RECORDS SUMMARY | 2024-07-17 07:29 | XMS_ITS ---
Author Organization [facility] Address [address] [place] [address] Care Team Providers Care Credit Rating Checker Name Role Phone Ashleigh Grullon MD Primary Care Provider Mukesh Taveras [phone] ALLERGIES Allergen (clinical drug ingredient) Drug/Non Drug [...] Hiatal hernia (K44.9) Active confirmed Hiatal hernia (79292626) Problem Acute gastritis with bleeding (K29.01) Active confirmed Acute hemorrhagic gastritis (4745886) Problem Chronic gastritis with bleeding, unspecified gastritis type (K29.51) Active confirmed Chronic antral gastritis with hemorrhage (disorder) (121043974) Problem Chronic diarrhea (K52.9) Active confirmed Chronic diarrhea (927852875) VITAL SIGNS BMI 26.15 kg/m2 08/28/2023 Blood pressure systolic 00 mm Hg 08/28/19 24 Blood pressure diastolic 00 mm Hg 024 Height 63.5 in 08/28/2023 Temperature 96.4 degrees Fahrenheit 08/28/19 24 Weight 150 lbs 08/28/2023 Encounters Encounter Location Date Provider Diagnosis [facility] [address] [place] [address] 08/28/2023 Mukesh Bearden Iron deficiency anem ia [...]
--- OUTSIDE RECORDS SUMMARY | 2024-07-17 07:29 | XMS_ITS | Encounter Summary ---
Author Organization [facility] Address [address] [place] [address] Care Team Providers Care Jacket Preparer Name Role Phone Leonardo García MD Primary Care Provider [phone] Encounter Details Date Type Department Care Team (Late st Contact Info) Description 06/29/2024 Lab Requisition [facility] - Main Lab [address] [facility] [place] [address] Chris Barlow MD [address] [place] [id number] Encounter for other general examination Social History [...] Diagnosis Comments CBC WITH AUTO DIFFERENTIAL Routine 06/29/2024 5:48 AM EST Encounter for other general examination CBC AND DIFFERENTIAL Routine 06/29/2024 5:48 AM EST Encounter for other general examination MAGNESIUM Routine 06/29/2024 5:48 AM EST Encounter for other general examination COMPREHENSIVE METABOLIC PANEL Routine 06/29/2024 5:48 AM EST Encounter for other general examination documented in this encounter Results * (ABNORMAL) CBC auto differential (06/29/2024 5:48 AM EST) [facility] WBC 9.9 4.8 - 10.8 K/mcL LAB HEMETOLOGY METHOD 06/29/2024 10:26 AM [facility] RBC 3.60(L) 3.80 - 4.80 M/mcL LAB HEMETOLOGY METHOD 06/29/2024 10:26 AM [facility] Hemoglobin 11.2(L) 11.5 - 16.0 g/dL LAB HEMETOLOGY METHOD 06/29/2024 10:26 AM [facility] Hematocrit 33.3(L) 35.0 - 47.0 % LAB HEMETOLOGY METHOD 06/29/2024 10:26 AM [facility] MCV 93.0 79.0 - 98.0 FL LAB HEMETOLOGY METHOD 06/29/2024 10:26 AM [facility] MCH 31.3 27.0 - 32.0 pcg LAB HEMETOLOGY METHOD 06/29/2024 10:26 AM [facility] MCHC 33.6 32.0 - 37.0 g/dL LAB HEMETOLOGY METHOD 06/29/2024 10:26 AM [facility] RDW 13.8 11.0 - 15.0 % LAB HEMETOLOGY METHOD 06/29/2024 10:26 AM [facility] Platelets 373 130 - 400 K/mcL LAB HEMETOLOGY METHOD 06/29/2024 10:26 AM [facility] MPV 9.4 7.0 - 11.0 FL LAB HEMETOLOGY METHOD 06/29/2024 10:26 AM [facility] NRBC 0.0 <1.0 % LAB HEMETOLOGY METHOD 06/29/2024 10:26 AM [facility] NRBC Absolute 0.00 <0.10 K/mcL LAB HEMETOLOGY METHOD 06/29/2024 10:26 AM [facility] Neutrophils Relative 64.0 % LAB HEMETOLOGY METHOD 06/29/2024 10:26 AM [facility] Lymphocytes Relative 25.2 % LAB HEMETOLOGY METHOD 06/29/2024 10:26 AM [facility] Monocytes Relative 7.8 % LAB HEMETOLOGY METHOD 06/29/2024 10:26 AM [facility] Eosinophils Relative 2.0 % LAB HEMETOLOGY METHOD 06/29/2024 10:26 AM [facility] Basophils Relative 0.4 % LAB HEMETOLOGY METHOD 06/29/2024 10:26 AM [facility] Immature Granulocytes Relative 0.6 % LAB HEMETOLOGY METHOD 06/29/2024 10:26 AM [facility] Neutrophils Absolute 6.31 1.50 - 7.00 K/mcL LAB HEMETOLOGY METHOD 06/29/2024 10:26 AM [facility] Lymphocytes Absolute 2.49 1.00 - 5.00 K/mcL LAB HEMETOLOGY METHOD 06/29/2024 10:26 AM [facility] Monocytes Absolute 0.77 0.20 - 1.00 K/mcL LAB HEMETOLOGY METHOD 06/29/2024 10:26 AM [facility] Eosinophils Absolute 0.20 0.00 - 0.50 K/mcL LAB HEMETOLOGY METHOD 06/29/2024 10:26 AM [facility] Basophils Absolute 0.04 0.00 - 0.20 K/mcL LAB HEMETOLOGY METHOD 06/29/2024 10:26 AM [facility] Immature Granulocytes Absolute 0.06(H) 0.00 - 0.03 K/mcL LAB HEMETOLOGY METHOD 06/29/2024 10:26 AM [facility] Blood Venous blood specimen / Unknown Venipuncture / Unknown 06/29/2024 5:48 AM EST 06/29/2024 8:27 AM EST us hCris Barlow MD LAB BLOOD ORDERABLES Final Resu lt Performing Organization Address City/[facility]/ZIP Co de Phone Number [facility] [address] [place] [address], [place] [phone] * Magnesium (06/29/2024 5:48 AM EST) Magnesium 2.2 1.9 - 2.6 mg/dL LAB CHEMISTRY METHOD 06/29/2024 10:10 AM EST [facility] Blood Venous blood specimen / Unknown Venipuncture / Unknown 06/29/2024 5:48 AM EST 06/29/2024 8:27 AM EST us Chris Barlow MD LAB BLOOD ORDERABLES Final Resu lt Performing Organization Address City/[facility]/ZIP Co de Phone Number [facility] [address] [place] [address], [place] [phone] * (ABNORMAL) Comprehensive metabolic panel (06/29/2024 5:48 AM EST) Sodium 134 133 - 145 mmol/L LAB CHEMISTRY METHOD 06/29/2024 10:10 AM EST [facility] Potassium 3.7 3.5 - 5.5 mmol/L LAB CHEMISTRY METHOD 06/29/2024 10:10 AM EST [facility] Chloride 100 96 - 110 mmol/L LAB CHEMISTRY METHOD 06/29/2024 10:10 AM EST [facility] CO2 29 21 - 32 mmol/L LAB CHEMISTRY METHOD 06/29/2024 10:10 AM EST [facility] Anion Gap 5 3 - 11 LAB CHEMISTRY METHOD 06/29/2024 10:10 AM EST [facility] Glucose 86 70 - 100 mg/dL LAB CHEMISTRY METHOD 06/29/2024 10:10 AM [facility] BUN 18 5 - 25 mg/dL LAB CHEMISTRY METHOD 06/29/2024 10:10 AM [facility] Creatinine 0.66 0.50 - 1.10 mg/dL LAB CHEMISTRY METHOD 06/29/2024 10:10 AM [facility] eGFR 88 >=60 mL/min/1. 73m2 LAB CHEMISTRY METHOD 06/29/2024 10:10 AM [facility] Comment:Calculation based on the??Chronic Kidney Disease Epidemiology Collaboration (CKD-EPI) equation refit??without adjustment for race. BUN/Creatinine Ratio 27.3 LAB CHEMISTRY METHOD 06/29/2024 10:10 AM [facility] Calcium 8.9 8.5 - 10.5 mg/dL LAB CHEMISTRY METHOD 06/29/2024 10:10 AM [facility] AST (SGOT) 36 10 - 42 unit/L LAB CHEMISTRY METHOD 06/29/2024 10:10 AM [facility] ALT (SGPT) 69(H) 10 - 60 unit/L LAB CHEMISTRY METHOD 06/29/2024 10:10 AM [facility] Alkaline Phosphatase 141(H) 42 - 121 unit/L LAB CHEMISTRY METHOD 06/29/2024 10:10 AM [facility] Total Protein 5.9(L) 6.0 - 8.0 g/dL LAB CHEMISTRY METHOD 06/29/2024 10:10 AM [facility] Albumin 3.2 3.2 - 5.0 g/dL LAB CHEMISTRY METHOD 06/29/2024 10:10 AM [facility] Total Bilirubin 0.8 0.0 - 1.4 mg/dL LAB CHEMISTRY METHOD 06/29/2024 10:10 AM [facility] Blood Venous blood specimen / Unknown Venipuncture / Unknown 06/29/2024 5:48 AM EST 06/29/2024 8:27 AM EST us Chris Barlow MD LAB BLOOD ORDERABLES Final Resu lt [facility] ([facility]) [facility] [address] [place] [address], documented in this encounter Visit Diagnoses Diagnosis Encounter for other general examination documented in this encounter Care Teams Jacket Preparer Relationship Specialty Start Date End Date Leonardo García MD [address] [place] [address] PCP - General Internal Medicine 06/30/24 documented as of this encounter
--- OUTSIDE RECORDS SUMMARY | 2024-07-17 07:29 | XMS_ITS | Encounter Summary ---
Author Organization [facility] Address [address] [place] [address] Care Team Providers Care Pretzel Twisting Machine Operator Name Role Phone Leonardo García MD Primary Care Provider [phone] Encounter Details Date Type Department Care Team (Late st Contact Info) Description 07/05/[address] [facility] - Main Lab [address] [facility] [employer] [place] [address] Chris Barlow MD [address] [place] [address] Encounter for other general examination Social History [...] Diagnosis Comments CBC WITH AUTO DIFFERENTIAL Routine 07/05/2024 7:00 AM EST Encounter for other general examination CBC AND DIFFERENTIAL Routine 07/05/2024 7:00 AM EST Encounter for other general examination MAGNESIUM Routine 07/05/2024 7:00 AM EST Encounter for other general examination COMPREHENSIVE METABOLIC PANEL Routine 07/05/2024 7:00 AM EST Encounter for other general examination documented in this encounter Results * (ABNORMAL) CBC auto differential (07/05/2024 7:00 AM EST) [facility] WBC 9.9 4.8 - 10.8 K/mcL LAB HEMETOLOGY METHOD 07/05/2024 11:42 AM [facility] RBC 3.60(L) 3.80 - 4.80 M/mcL LAB HEMETOLOGY METHOD 07/05/2024 11:42 AM [facility] Hemoglobin 10.7(L) 11.5 - 16.0 g/dL LAB HEMETOLOGY METHOD 07/05/2024 11:42 AM [facility] Hematocrit 32.8(L) 35.0 - 47.0 % LAB HEMETOLOGY METHOD 07/05/2024 11:42 AM [facility] MCV 92.1 79.0 - 98.0 FL LAB HEMETOLOGY METHOD 07/05/2024 11:42 AM [facility] MCH 30.1 27.0 - 32.0 pcg LAB HEMETOLOGY METHOD 07/05/2024 11:42 AM [facility] MCHC 32.6 32.0 - 37.0 g/dL LAB HEMETOLOGY METHOD 07/05/2024 11:42 AM [facility] RDW 14.2 11.0 - 15.0 % LAB HEMETOLOGY METHOD 07/05/2024 11:42 AM [facility] Platelets 439(H) 130 - 400 K/mcL LAB HEMETOLOGY METHOD 07/05/2024 11:42 AM [facility] MPV 8.9 7.0 - 11.0 FL LAB HEMETOLOGY METHOD 07/05/2024 11:42 AM [facility] NRBC 0.0 <1.0 % LAB HEMETOLOGY METHOD 07/05/2024 11:42 AM [facility] NRBC Absolute 0.00 <0.10 K/mcL LAB HEMETOLOGY METHOD 07/05/2024 11:42 AM [facility] Neutrophils Relative 71.2 % LAB HEMETOLOGY METHOD 07/05/2024 11:42 AM [facility] Lymphocytes Relative 16.3 % LAB HEMETOLOGY METHOD 07/05/2024 11:42 AM [facility] Monocytes Relative 10.4 % LAB HEMETOLOGY METHOD 07/05/2024 11:42 AM [facility] Eosinophils Relative 1.2 % LAB HEMETOLOGY METHOD 07/05/2024 11:42 AM [facility] Basophils Relative 0.4 % LAB HEMETOLOGY METHOD 07/05/2024 11:42 AM [facility] Immature Granulocytes Relative 0.5 % LAB HEMETOLOGY METHOD 07/05/2024 11:42 AM [facility] Neutrophils Absolute 7.06(H) 1.50 - 7.00 K/mcL LAB HEMETOLOGY METHOD 07/05/2024 11:42 AM [facility] Lymphocytes Absolute 1.62 1.00 - 5.00 K/mcL LAB HEMETOLOGY METHOD 07/05/2024 11:42 AM [facility] Monocytes Absolute 1.03(H) 0.20 - 1.00 K/mcL LAB HEMETOLOGY METHOD 07/05/2024 11:42 AM [facility] Eosinophils Absolute 0.12 0.00 - 0.50 K/mcL LAB HEMETOLOGY METHOD 07/05/2024 11:42 AM [facility] Basophils Absolute 0.04 0.00 - 0.20 K/mcL LAB HEMETOLOGY METHOD 07/05/2024 11:42 AM [facility] Immature Granulocytes Absolute 0.05(H) 0.00 - 0.03 K/mcL LAB HEMETOLOGY METHOD 07/05/2024 11:42 AM EST [facility] Blood Venous blood specimen / Unknown Venipuncture / Unknown 07/05/2024 7:00 AM EST 07/05/2024 10:39 AM EST Chris Barlow MD LAB BLOOD ORDERABLES Final Resu lt [facility] [address] [place] [address], [place] [phone] * Magnesium (07/05/2024 7:00 AM EST) Magnesium 2.4 1.9 - 2.6 mg/dL LAB CHEMISTRY METHOD 07/05/2024 12:15 PM [facility] Blood Venous blood specimen / Unknown Venipuncture / Unknown 07/05/2024 7:00 AM EST 07/05/2024 10:39 AM EST Chris Barlow MD LAB BLOOD ORDERABLES Final Resu lt [facility] [address] [place] [address], [place] [phone] * (ABNORMAL) Comprehensive metabolic panel (07/05/2024 7:00 AM EST) Sodium 132(L) 133 - 145 mmol/L LAB CHEMISTRY METHOD 07/05/2024 12:14 PM [facility] Potassium 4.3 3.5 - 5.5 mmol/L LAB CHEMISTRY METHOD 07/05/2024 12:14 PM [facility] Chloride 98 96 - 110 mmol/L LAB CHEMISTRY METHOD 07/05/2024 12:14 PM [facility] CO2 28 21 - 32 mmol/L LAB CHEMISTRY METHOD 07/05/2024 12:14 PM [facility] Anion Gap 6 3 - 11 LAB CHEMISTRY METHOD 07/05/2024 12:14 PM [facility] Glucose 95 70 - 100 mg/dL LAB CHEMISTRY METHOD 07/05/2024 12:14 PM [facility] BUN 21 5 - 25 mg/dL LAB CHEMISTRY METHOD 07/05/2024 12:14 PM [facility] Creatinine 0.80 0.50 - 1.10 mg/dL LAB CHEMISTRY METHOD 07/05/2024 12:14 PM [facility] eGFR 74 >=60 mL/min/1. 73m2 LAB CHEMISTRY METHOD 07/05/2024 12:14 PM [facility] Comment:Calculation based on the??Chronic Kidney Disease Epidemiology Collaboration (CKD-EPI) equation refit??without adjustment for race. BUN/Creatinine Ratio 26.3 LAB CHEMISTRY METHOD 07/05/2024 12:14 PM [facility] Calcium 8.9 8.5 - 10.5 mg/dL LAB CHEMISTRY METHOD 07/05/2024 12:14 PM [facility] AST (SGOT) 20 10 - 42 unit/L LAB CHEMISTRY METHOD 07/05/2024 12:14 PM [facility] ALT (SGPT) 50 10 - 60 unit/L LAB CHEMISTRY METHOD 07/05/2024 12:14 PM [facility] Alkaline Phosphatase 203(H) 42 - 121 unit/L LAB CHEMISTRY METHOD 07/05/2024 12:14 PM [facility] Total Protein 6.1 6.0 - 8.0 g/dL LAB CHEMISTRY METHOD 07/05/2024 12:14 PM [facility] Albumin 3.5 3.2 - 5.0 g/dL LAB CHEMISTRY METHOD 07/05/2024 12:14 PM [facility] Total Bilirubin 0.9 0.0 - 1.4 mg/dL LAB CHEMISTRY METHOD 07/05/2024 12:14 PM [facility] Blood Venous blood specimen / Unknown Venipuncture / Unknown 07/05/2024 7:00 AM EST 07/05/2024 10:39 AM EST us Chris Barlow MD LAB BLOOD ORDERABLES Final Resu lt Performing Organization Address City/State/[facility] Co de Phone Number [facility] ([facility]) [facility] [address] [place] [address], documented in this encounter Visit Diagnoses Diagnosis Encounter for other general examination documented in this encounter Care Teams Pretzel Twisting Machine Operator Relationship Specialty Start Date End Date Leonardo García MD [address] [place] [id number] PCP - General Internal Medicine 06/30/24 documented as of this encounter
--- OUTSIDE RECORDS SUMMARY | 2024-07-17 07:30 | XMS_ITS | Patient Health Record ---
Author Organization [facility] Address [address] [place] [address] Care Team Providers Care Carton Making Machine Operator Name Role Phone Ashleigh Grullon MD Primary Care Provider Mukesh Taveras [phone] ALLERGIES Allergen (clinical drug ingredient) Drug/Non Drug [...] bleeding (K29.01) Active confirmed Acute hemorrhagic gastritis (4595352) Problem Diverticulosis of large intestine without perforation or abscess without bleeding (K57.30) Active confirmed Diverticul ar disease of colon (612456407) Problem Iron deficiency anemia (D50.9) Active confirmed Iron deficien cy anemia (40673814) Problem Hiatal hernia (K44.9) Active confirmed Hiatal hernia (06522353) Problem Chronic diarrhea (K52.9) Active confirmed Chronic diarrhea (978033784) Problem Chronic gastritis with bleeding, unspecified gastritis type (K29.51) Active confirmed Chronic antral gastritis with hemorrhage (disorder) (188832483) Problem Gastric ulcer (K25.9) Active confirmed Gastric ulcer (360193177) Problem Gastritis, erosive (K29.60) Active confirmed Erosive gastritis (21419824621534 00) VITAL SIGNS Temperature 96.4 degrees Fahrenheit 08/28/2023 Blood pressure diastolic 00 mm Hg 08/28/2023 Height 63.5 in 08/28/2023 Blood pressure systolic 00 mm Hg 08/28/2023 Weight 150 lbs 08/28/2023 BMI 26.15 kg/m2 08/28/2023 Encounters Encounter Location Date Provider Diagnosis [facility] [address] [place] [address] 08/28/2023 Mukesh Bearden Iron deficiency anem ia [...] OF [place] [address] [place] [address] [id number] SRINIVASAN ALVARADO Self - patient is the insured [facility] [employer] [address] [place] [address] [id number] SRINIVASAN ALVARADO Self - patient is the insured MEDICAL (GENERAL) HISTORY Medical History History ICD Code Denies [place],DM,CVA,Lung disease,renal dise ase Colonoscopy in 10/2001 with [...]
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
--- OUTSIDE RECORDS SUMMARY | 2024-07-17 07:30 | XMS_ITS | Encounter Summary ---
Author Organization [facility] Address [address] [place] [address] Care Team Providers Care Clasp Machine Operator Name Role Phone Leonardo García MD Primary Care Provider [phone] Encounter Details Date Type Department Care Team (Late st Contact Info) Description 07/06/2024 Lab Requisition [facility] - Main Lab [address] [facility] [place] [address] Chris Barlow MD [address] [place] [address] Encounter for other general examination Social History [...] Procedure Name Priority Date/Time Associated Diagnosis Comments URINALYSIS WITH REFLEX MICROSCOPIC AND CULTURE Routine [...] documented in this encounter Results * (ABNORMAL) Culture urine (07/06/2024 10:07 AM EST) Culture, Urine >100,000 CFU/mL Escherichia coli(A) JUDIE 07/08/2024 8:28 AM EST [facility] Urine Urine specimen obtained by [...] Escherichia coli Trimethoprim/Sulfamethoxazole JUDIE <=20 ug/ml: Susceptible us Chris Barlow MD LAB MICROBIOLOGY - GENERAL ALLANE GONZALEZ Final Result [facility] [address] [place] [address], * Jay urine culture tube (07/06/2024 10:07 AM EST) Extra Tube Hold for add-ons. 07/06/2024 4:01 PM EST [facility] Comment:Auto resulted. Urine Urine specimen obtained by clean catch procedure / Unknown 07/06/2024 10:07 AM EST 07/06/2024 2:09 PM EST us Chris Barlow MD LAB URINE ORDERABLES Final Resu lt [facility] [address] [place] [address], [place] [phone] * (ABNORMAL) Urinalysis with reflex microscopic and culture (07/06/2024 10:07 AM EST) Specific [place] Urine 1.022 1.003 - 1.030 LAB URINALYSIS - AUTOMATED METHOD 07/06/2024 3:05 PM [facility] pH, Urine 5.5 5.0 - 8.0 pH LAB URINALYSIS - AUTOMATED METHOD 07/06/2024 3:05 PM [facility] Leukocytes, Urine Large(A) Negative LAB URINALYSIS - AUTOMATED METHOD 07/06/2024 3:05 PM [facility] Nitrite, Urine Positive(A) Negative LAB URINALYSIS - AUTOMATED METHOD 07/06/2024 3:05 PM [facility] Protein, Urine Negative <=Trace mg/dL LAB URINALYSIS - AUTOMATED METHOD 07/06/2024 3:05 PM [facility] Glucose, Urine Negative Negative mg/dL LAB URINALYSIS - AUTOMATED METHOD 07/06/2024 3:05 PM [facility] Ketones, Urine Negative Negative mg/dL LAB URINALYSIS - AUTOMATED METHOD 07/06/2024 3:05 PM [facility] Urobilinogen , Urine 1.0 0.2 - 1.0 mg/dL LAB URINALYSIS - AUTOMATED METHOD 07/06/2024 3:05 PM [facility] Bilirubin, Urine Negative Negative LAB URINALYSIS - AUTOMATED METHOD 07/06/2024 3:05 PM EST [facility] Blood, Urine Trace(A) Negative LAB URINALYSIS - AUTOMATED METHOD 07/06/2024 3:05 PM EST [facility] Urine Urine specimen obtained by clean catch procedure / Unknown 07/06/2024 10:07 AM EST 07/06/2024 2:07 PM EST us Chris Barlow MD LAB URINE ORDERABLES Final Resu lt [facility] [address] [place] [address], [place] [phone] documented in this encounter Visit Diagnoses Diagnosis Encounter for other general examination documented in this encounter Care Teams Clasp Machine Operator Relationship Specialty Start Date End Date Leonardo García MD [address] [place] [id number] PCP - General Internal Medicine 06/30/24 documented as of this encounter
--- OUTSIDE RECORDS SUMMARY | 2024-07-17 07:30 | XMS_ITS | Clinical Summary ---
Author Organization [facility] Address [address] [place] [address] Care Team Providers Care Call Center Director Name Role Phone Unavailable Primary Care Provider Unavailabl e Social History Tobacco Use Types Packs/Day Years Used Date Smoking Tobacco: Never Assessed Sex and Gender Information Value Date Recorded Sex Assigned at Not on file Gender Identity Not on file Sexual Orientation Not on file Plan of Treatment Health Maintenance Due Date Last Done Comments DTaP/Tdap/Td Vaccines (1 - Tdap) 1961 Pneumococcal Vaccines 50+ (1 of 1 - PCV) 1992 Zoster (Shingles) Vaccine (1 of 2) 1992 DXA Bone Density (Females,Ag es 65 and older) 2007 RSV Vaccine 60 years and old er and Patients (1 - 1-dose 75+ series) 2017 Influenza Vaccine 01/03/2024 COVID-19 Vaccine (2023-2 5 season) 2024 Hepatitis B Vaccines Aged Out No long er eligible based on patient's age to complete this topic
--- OUTSIDE RECORDS SUMMARY | 2024-07-17 07:30 | XMS_ITS ---
Author Organization [facility] Address [address] [place] [address] Care Team Providers Care Teller Supervisor Name Role Phone Ashleigh Grullon MD Primary Care Provider UnavailMukesh Mccormick [phone] REASON FOR VISIT follow up after procedure Encounters Encounter Location Date Provider Diagnosis [facility] [address] [place] [address] 04/23/2023 Mukesh Bearden PLAN OF TREATMENT No Information
--- OUTSIDE RECORDS SUMMARY | 2024-07-17 07:30 | XMS_ITS | Encounter Summary ---
Author Organization [facility] Address [address] [place] [address] Care Team Providers Care E Commerce Merchandising Coordinator Name Role Phone Leonardo García MD Primary Care Provider [phone] Encounter Details Date Type Department Care Team (Late st Contact Info) Description 07/07/2024 Lab Requisition [facility] - Main Lab [address] [facility] [employer] [place] [address] Chris Barlow MD [address] [place] [address] Encounter for other general examination Social History [...] encounter Results * (ABNORMAL) CBC auto differential (07/07/2024 6:34 AM EST) [facility] WBC 6.0 4.8 - 10.8 K/mcL LAB HEMETOLOGY METHOD 07/07/2024 10:[address] [facility] RBC 3.20(L) 3.80 - 4.80 M/mcL LAB HEMETOLOGY METHOD 07/07/2024 10:[address] [facility] Hemoglobin 10.1(L) 11.5 - 16.0 g/dL LAB HEMETOLOGY METHOD 07/07/2024 10:[address] [facility] Hematocrit 30.7(L) 35.0 - 47.0 % LAB HEMETOLOGY METHOD 07/07/2024 10:[address] [facility] MCV 94.8 79.0 - 98.0 FL LAB HEMETOLOGY METHOD 07/07/2024 10:[address] [facility] MCH 31.2 27.0 - 32.0 pcg LAB HEMETOLOGY METHOD 07/07/2024 10:[address] [facility] MCHC 32.9 32.0 - 37.0 g/dL LAB HEMETOLOGY METHOD 07/07/2024 10:[address] [facility] RDW 14.2 11.0 - 15.0 % LAB HEMETOLOGY METHOD 07/07/2024 10:[address] [facility] Platelets 415(H) 130 - 400 K/mcL LAB HEMETOLOGY METHOD 07/07/2024 10:[address] [facility] MPV 9.2 7.0 - 11.0 FL LAB HEMETOLOGY METHOD 07/07/2024 10:[address] [facility] NRBC 0.0 <1.0 % LAB HEMETOLOGY METHOD 07/07/2024 10:[address] [facility] NRBC Absolute 0.00 <0.10 K/mcL LAB HEMETOLOGY METHOD 07/07/2024 10:[address] [facility] Neutrophils Relative 57.2 % LAB HEMETOLOGY METHOD 07/07/2024 10:[address] [facility] Lymphocytes Relative 25.4 % LAB HEMETOLOGY METHOD 07/07/2024 10:[address] [facility] Monocytes Relative 12.5 % LAB HEMETOLOGY METHOD 07/07/2024 10:[address] [facility] Eosinophils Relative 3.8 % LAB HEMETOLOGY METHOD 07/07/2024 10:[address] [facility] Basophils Relative 0.8 % LAB HEMETOLOGY METHOD 07/07/2024 10:[address] [facility] Immature Granulocytes Relative 0.3 % LAB HEMETOLOGY METHOD 07/07/2024 10:[address] [facility] Neutrophils Absolute 3.42 1.50 - 7.00 K/mcL LAB HEMETOLOGY METHOD 07/07/2024 10:[address] [facility] Lymphocytes Absolute 1.52 1.00 - 5.00 K/mcL LAB HEMETOLOGY METHOD 07/07/2024 10:[address] [facility] Monocytes Absolute 0.75 0.20 - 1.00 K/mcL LAB HEMETOLOGY METHOD 07/07/2024 10:[address] [facility] Eosinophils Absolute 0.23 0.00 - 0.50 K/mcL LAB HEMETOLOGY METHOD 07/07/2024 10:[address] [facility] Basophils Absolute 0.05 0.00 - 0.20 K/mcL LAB HEMETOLOGY METHOD 07/07/2024 10:[address] [facility] Immature Granulocytes Absolute 0.02 0.00 - 0.03 K/mcL LAB HEMETOLOGY METHOD 07/07/2024 10:[address] [facility] Blood Venous blood specimen / Unknown Venipuncture / Unknown 07/07/2024 6:34 AM EST 07/07/2024 9:05 AM EST us Chris Barlow MD LAB BLOOD ORDERABLES Final Resu lt [facility] [address] [place] [address], [place] [phone] * Basic metabolic panel (07/07/2024 6:34 AM EST) Sodium 135 133 - 145 mmol/L LAB CHEMISTRY METHOD 07/07/2024 11:[address] [facility] Potassium 4.2 3.5 - 5.5 mmol/L LAB CHEMISTRY METHOD 07/07/2024 11:[address] [facility] Chloride 100 96 - 110 mmol/L LAB CHEMISTRY METHOD 07/07/2024 11:[address] [facility] CO2 28 21 - 32 mmol/L LAB CHEMISTRY METHOD 07/07/2024 11:[address] [facility] Anion Gap 7 3 - 11 LAB CHEMISTRY METHOD 07/07/2024 11:[address] [facility] Glucose 92 70 - 100 mg/dL LAB CHEMISTRY METHOD 07/07/2024 11:[address] [facility] BUN 19 5 - 25 mg/dL LAB CHEMISTRY METHOD 07/07/2024 11:[address] [facility] Creatinine 0.70 0.50 - 1.10 mg/dL LAB CHEMISTRY METHOD 07/07/2024 11:[address] [facility] eGFR 86 >=60 mL/min/1. 73m2 LAB CHEMISTRY METHOD 07/07/2024 11:[address] [facility] Comment:Calculation based on the??Chronic Kidney Disease Epidemiology Collaboration (CKD-EPI) equation refit??without adjustment for race. BUN/Creatinine Ratio 27.1 LAB CHEMISTRY METHOD 07/07/2024 11:[address] [facility] Calcium 9.0 8.5 - 10.5 mg/dL LAB CHEMISTRY METHOD 07/07/2024 11:20 AM EST [facility] Blood Venous blood specimen / Unknown Venipuncture / Unknown 07/07/2024 6:34 AM EST 07/07/2024 9:05 AM EST us Chris Barlow MD LAB BLOOD ORDERABLES Final Resu lt [facility] [address] [place] [address], documented in this encounter Visit Diagnoses Diagnosis Encounter for other general examination documented in this encounter Care Teams E Commerce Merchandising Coordinator Relationship Specialty Start Date End Date Leonardo García MD [address] [place] [id number] PCP - General Internal Medicine 06/30/24 documented as of this encounter
--- OUTSIDE RECORDS SUMMARY | 2024-07-17 07:30 | XMS_ITS | Encounter Summary ---
Author Organization [facility] Address [address] [place] [address] Care Team Providers Care Technical Education Teacher Name Role Phone Unavailable Primary Care Provider Unavailabl e Encounter Details Date Type Department Care Team (Late st Contact Info) Description 03/17/2020 Lab Requisition [facility] [address] [place] [address] Boo Milian PA-C [address] [place] [address] Encounter for laboratory testing for COVID-19 virus Social History Tobacco Use Types Packs/Day Years Used Date Smoking Tobacco: Never Assessed Sex and Gender Information Value Date Recorded Sex Assigned at Not on file Gender Identity Not on file Sexual Orientation Not on file documented as of this encounter Plan of Treatment Not on file documented as of this encounter Procedures Procedure Name Priority Date/Time Associated Diagnosis Comments COVID-19 RT-PCR ([facility]) Routine 03/17/2020 2:45 PM EDT Encounter for laboratory testing for COVID-19 virus [ICD-10-CM] documented in this encounter Results * COVID-19 RT-PCR ([facility]) (03/17/2020 2:45 PM EDT) COVID-19 RT-PCR SARS-COV-2 NOT DETECTED Not Detected 03/18/2020 5:59 PM EDT [facility] Comment: ADDITIONAL INFORMATION The SUKUMAR COVID-19 RT-PCR Assay is Real-Time Reverse Provider Network Manager Polymerase Chain Reaction (chute feeder-PCR) for the in vitro qualitative detection of three SARS-Cov-2 target sequences unique to the coronavirus disease 2019 (COVID-19). This is an Emergency Use Authorization (EUA) in vitro diagnostic (IVD) test that has been modified to include the Revolut automated liquid handler. Its analytical performance characteristics have been determined by the correspondence school instructor and verified by [facility] in a manner consistent with CLIA requirements. This test may be used for clinical purposes and should not be regarded as purely investigational or for research use only. This laboratory is certified under the Clinical Laboratory Improvement Amendments of 1988 (CLIA) as qualified to perform high complexity clinical testing. Reference interval for this testing is SARS-CoV-2 Not Detected. Fact sheets for this Emergency Use Authorization assay can be found at the following links: For Healthcare Providers: https://www.fda.gov/media/447951/download For Patients: https://www.fda.gov/media/610114/download TEST LIMITATIONS Positive results are indicative of the presence of SARS-CoV-2 RNA; clinical correlation with patient history and other diagnostic information is necessary to determine patient infection status. Positive results do not rule out bacterial infection or co-infection with other viruses. The agent detected may not be the definite cause of disease. Negative results do not exclude SARS-CoV-2 infection and should not be used as the sole basis for patient management decisions. Negative results must be combined with clinical observations, patient history, and epidemiological information. Improper sample collection, transport or storage may impede the ability of the assay to detect target sequences. Inconclusive specimens are not repeated, and recollection and submission of a new sample is recommended. The performance of the TaqPath COVID-19 Combo Kit was established using nasopharyngeal swab, nasopharyngeal aspirate, and bronchoalveolar lavage (BAL) specimens. The limit of detection for the assay was determined to be 0.75copies/uL in the specimens of nasopharyngeal swab. Other specimen types may be need for further validation before testing on this system. For further details refer to the [employer] TaqPath COVID-19 Combo Kit EUA submission (https://www.Ombit[employer].gov/media/914002/download). ----- Test performed by [facility], [address] [place], [place] [address] CLIA# [id number] ?[id number] ? Antoine Shah M.D., Ph.D., [facility], Clinical Braiding Machine Operator Microbiology Nasopharyngeal swab / Unknown 03/17/2020 2:45 PM EDT 03/17/2020 2:45 PM EDT Narrative [facility] - 03/18/2020 5:59 PM EDT Performed at [facility], [address] [place], [place], [place] Lic [address], CLIA [id number] Boo Milian PA-C MICROBIOLOGY - NERAL ORDERABLES [facility] [address] [place] [address] documented in this encounter Visit Diagnoses Diagnosis Encounter for laboratory testing for COVID-19 virus documented in this encounter
[2024-07-17 08:04] LABS: MANUAL DIFF FLAG NO
[2024-07-17 08:05] LABS: Basophils Percent Auto 0.3 % (0-2); Eosinophils Absolute Auto 0.1 X10*3/uL (0.0-0.4); Eosinophils Percent Auto 1.1 % (0-4); Hematocrit 33.8 % (37.0-47.0); Hemoglobin 11.7 g/dl (12.0-16.0); Imm Gran Abs Auto 0.02 X10*3/uL (0.00-0.03); Imm Gran Pct Auto 0.3 % (0.0-0.4); Lymphocytes Absolute Auto 1.2 X10*3/uL (1.2-4.9); Mean Corpuscular HGB Conc 34.6 g/dl (31.0-35.0); Mean Corpuscular Hemoglobin 31.5 pg (27.0-33.0); Mean Corpuscular Volume 90.9 fL (80.0-98.0); Mean Platelet Volume 8.9 fL (9.4-12.3); Monocytes Absolute Auto 0.6 X10*3/uL (0.1-1.2); Monocytes Percent Auto 7.5 % (2-11); Neutrophils Absolute Auto 5.6 x10*3/uL (2.0-8.3); Neutrophils Percent Auto 74.8 % (45-73); Platelet Count 274 X10*3/uL (160-400); Red Blood Count 3.72 X10*6/uL (4.20-5.50); Red Cell Distribution Width 14.2 % (11.0-16.0); White Blood Count 7.5 X10*3/uL (4.8-10.8)
[2024-07-17 08:19] LABS: Anion Gap 13 (12-20); Blood Urea Nitrogen 16 mg/dL (9-16); Calcium 9.4 mg/dL (8.4-10.2); Carbon Dioxide 26 mmol/L (22-29); Chloride 105 mmol/L (96-108); Creatinine Clr Calc Pharmacy 66.1; Estimated Glomerular Filt Rate > 60; Glucose Random 110 mg/dL (60-115); Potassium 3.6 mmol/L (3.3-5.1); Sodium 140 mmol/L (135-145)
--- NOTE | 2024-07-17 09:26 | ED_ITS ---
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 Patient states that she got out of her bed and felt lightheaded, like she was going to pass out, and her legs gave out and fell down onto her knee and buttock. Patient states that she did not hit her head or have any loss of consciousness. Patient's daughter states that the patient is supposed to be wearing a back brace but was found by [facility] staff on the ground without it. Patient's daughter states that she is very concerned about the patient living in [facility] and believes she needs a higher level of care. Patient denies any dizziness, abdominal pain, nausea, vomiting, fever, chills, blurry vision, double vision, loss of vision, chest pain, difficulty breathing, shortness of breath, night sweats, pain with urination, increased urinary frequency, increased urinary urgency, blood in her urine or stool, syncope or a near syncopal episode, bowel incontinence, bladder incontinence, or any other complaints at this time. Relieving factors: none Exacerbating factors: none Associated symptoms: weakness Treatments prior to arrival: none Related Data Home Medications ?Medication ?Instructions ?Recorded ?Confirmed baclofen 10 mg tablet 10 mg PO BID PRN Pain 01/01/24 06/03/24 docusate sodium 100 mg capsule 100 mg PO BID PRN Constipation 01/01/24 06/03/24 (Colace) Previous Rx's ?Medication ?Instructions ?Recorded omeprazole 40 mg capsule,delayed 40 mg PO DAILY@0630 #90 caps 03/21/24 release back brace #1 ea 05/14/24 acetaminophen 325 mg tablet 975 mg (3 x 325 mg) PO Q8H #20 tabs 06/20/24 aspirin 81 mg chewable tablet 81 mg PO DAILY #30 tabs 06/20/24 atorvastatin 40 mg tablet 40 mg PO DAILY #20 tabs 06/20/24 heparin (porcine) 5,000 unit/mL 5,000 unit subcut Q8H #25 mL 06/20/24 injection solution oxycodone 5 mg tablet See Rx Instructions .Route 06/20/24 .COMPLEX PRN Pain, Moderate(Pain Scale 4-6) #40 tabs Allergies Allergy/AdvReac Type Severity Reaction Status Date / Time ampicillin [AMPICILLIN] Allergy Severe swelling Verified 07/17/24 07:16 in face/itchy throat tetracycline [TETRACYCLINE] Allergy Severe itchy Verified 07/17/24 07:16 throat/swelling in face Review of Systems 2 Constitutional: Constitutional: Reports no additional constitutional complaints, Denies chills, Denies fever(s) and Denies night sweats Eyes: Eyes: Reports no additional eye complaints, Denies blurry vision, Denies change in vision, Denies diplopia, Denies eye discharge, Denies loss of vision and Denies eye pain ENT: Denies dizziness Cardiovascular: Cardiovascular: Reports no additional cardiovascular complaints, Denies chest pain, Denies lightheadedness, Denies Loss of Consciousness and Denies dyspnea Respiratory: Respiratory: Reports no additional respiratory complaints and Denies dyspnea Gastrointestinal: Gastrointestinal: Reports no additional gastrointestinal complaints, Denies abdominal pain, Denies melena, Denies hematochezia, Denies change in bowel habits and Denies change in stool character Genitourinary: Genitourinary: Denies hematuria, Denies urinary frequency, Denies dysuria, Denies urinary incontinence, Denies urinary hesitancy and Denies urinary urgency Musculoskeletal: Musculoskeletal: Reports no additional musculoskeletal complaints, Denies numbness and Denies tingling Comments: left knee pain buttock / low back pain Neurologic: Denies dizziness, Denies loss of vision, Denies numbness and Denies tingling Psychiatric: Psychiatric: Reports no additional psychiatric complaints Endocrine: Endocrine: Reports no additional endocrine complaints Hematologic/Lymphatic: Hematologic/Lymphatic: Reports no additional hematologic/lymphatic complaints Allergic/Immunologic: Allergic/Immunologic: Reports no additional allergic/immunologic complaints PMFSH Past Medical History Attestation statement: The following information was validated with the patient. (all information validated with the patient's daughter Yamel) Source: old records reviewed, obtained from family (patient's daughter Yamel provided additional history and confirmed the history provided by the patient) and nursing notes reviewed Medical History Uses roller walker Arthritis Back pain GERD (gastroesophageal reflux disease) Numbness Seasonal allergies History of blood transfusion [place] (hard of hearing) GI bleed due to NSAIDs Osteoarthritis Elevated cholesterol Hyperglycemia HTN (hypertension) Lumbar stenosis Vertigo Gastritis Scoliosis (and kyphoscoliosis), idiopathic Anemia Surgical History Hx of spinal surgery (07/18/23) Hx of tonsillectomy History of total left knee replacement History of esophagogastroduodenoscopy (EGD) H/O colonoscopy History of lumbar laminectomy History of total left hip arthroplasty History of appendectomy H/O cataract removal with insertion of prosthetic lens Family History Family History Father No problems noted. Mother Breast cancer Social History Social History Household Members: Family Household Members Other:: sister [facility]: [facility] Are you a primary reservoir caretaker to a significant other at home: No Do you presently have visiting nurse or other home services: No Patient Tobacco Use Status: Former Tobacco user Tobacco use type: Cigarette Smoked in Last 30 Days: No e-Cigarette/Vaping Use: Never Used Substance Use Type: Other Advance Directives: Yes Advance Directives on File: Yes Advance Directives Date on File: 10/16/22 service: No Current occupational status: retired Cognitive needs: No Hearing needs: Yes Vision needs: No Physical Exam ED Vital Signs: Vital Signs - 24 hr 07/17/24 07:09 07/17/24 07:20 07/17/24 07:20 Temperature 98.1 F Pulse Rate 79 79 79 Respiratory Rate 16 16 16 Blood Pressure Pulse Oximetry 97 Oxygen Delivery Method Room Air 07/17/24 11:47 07/17/24 13:11 07/17/24 14:55 Temperature 98.0 F 97.8 F Pulse Rate 79 87 94 Respiratory Rate 16 18 Blood Pressure 150/81 H 169/70 H Pulse Oximetry 95 96 Oxygen Delivery Method Room Air Room Air BMI result Body Mass Index 27.5 Const General: cooperative, no acute distress, alert and awake Nutritional Appearance: well nourished Orientation/consciousness: patient oriented x3 Limitations: no limitations HENMT Head: Yes normal to inspection and Yes atraumatic Ears: hearing grossly normal bilaterally and external ears normal General nose exam: Normal external nose present, no nasal discharge noted and no epistaxis Face and sinus: Yes normal facial exam, No abrasion and No laceration Mouth: Normal oral and palatal mucosa present, no drooling and no muffled voice Eyes General: appearance normal, both eyes and all related structures Periorbital: periorbital findings normal Eyelids: Yes eyelids normal Conjunctivae: conjunctivae normal Pupils: Equal, round and reactive pupils present EOM: EOMs intact bilaterally Neck Neck: Yes normal visual inspection, Yes full ROM and Yes no lymphadenopathy Chest Chest palpation & inspection: normal inspection of the chest Resp Effort & Inspection: normal respiratory effort and able to speak in complete sentences GI Inspection: Yes normal to inspection Neuro General: patient oriented x3, moves all extremities and CN's II-XI intact bilaterally Cranial nerves: Yes Equal, round and reactive pupils present Cognition (Neuro): normal cognition Extrem General: Yes normal to inspection, Yes full ROM and Yes capillary refill normal Psych Appearance: grossly normal Mental Status: mental status grossly normal Affect: normal affect Attitude: cooperative Thought process: Normal thought process present Thought content: Normal thought content present Insight: Good insight present (Psych) Medical Decision Making Medical Decision Making MDM Narrative: Patient is an 84 year old assigned female at with a history of HTN, HLD, 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 Patient's physical exam was unremarkable. Patient's blood work was unremarkable. Patient's urine showed evidence of possible infection - given the patient's presentation, will treat. Patient's EKG was unremarkable. Patient's chest and left knee x-rays showed no acute process. Patient's head, cervical spine, and abdomen/pelvis CTs showed no acute process. I explained my physical exam findings as well as all test results to the patient adn the patient's daughter. I answered all questions asked by the patient and the patient's daughter. Patient will remain in the department to be evaluated by physical therapy and case management. Differential Diagnosis Differential Diagnoses: The differential diagnosis associated with the presentation includes UTI Weakness Failure to thrive Admission/Observation Consideration of admission/observation: Escalation of care including admission/observation considered Patient would have been admitted to the hospital had her work up had any findings where hospital admission was appropriate and her clinical presentation warranted hospital admission. Lab Data [facility] Lab Attestation statement: I reviewed the patient's lab results. My interpretation of these results are in the [facility] Rationale portion of this note. 07/17/24 07:58 07/17/24 07:58 Labs: Lab Results 07/17/24 07/17/24 07/17/24 Range/Units 07:58 11:07 11:13 WBC 7.5 (4.8-10.8) X10*3/uL RBC 3.72 L (4.20-5.50) X10*6/uL Hgb 11.7 L (12.0-16.0) g/dl Hct 33.8 L (37.0-47.0) % MCV 90.9 (80.0-98.0) fL MCH 31.5 (27.0-33.0) pg MCHC 34.6 (31.0-35.0) g/dl RDW 14.2 (11.0-16.0) % Plt Count 274 (160-400) X10*3/uL MPV 8.9 L (9.4-12.3) fL Immature Gran % (Auto) 0.3 (0.0-0.4) % Neut % (Auto) 74.8 H (45-73) % Lymph % (Auto) 16.0 L (20-40) % [place] % (Auto) 7.5 (2-11) % Eos % (Auto) 1.1 (0-4) % Baso % (Auto) 0.3 (0-2) % Lymph # (Auto) 1.2 (1.2-4.9) X10*3/uL [place] # (Auto) 0.6 (0.1-1.2) X10*3/uL Eos # (Auto) 0.1 (0.0-0.4) X10*3/uL Baso # (Auto) 0.0 (0.0-0.2) X10*3/uL Abs Immat Gran (auto) 0.02 (0.00-0.03) X10*3/uL Absolute Neuts (auto) 5.6 (2.0-8.3) x10*3/uL Absolute Nucleated RBC 0.000 (0.0-0.012) X10*3/uL Nucleated RBC % (auto) 0.0 (0.0-0.2) /100WBC VBG pH 7.44 H (7.32-7.43) VBG pCO2 48 mmHg VBG pO2 33 mmHg VBG HCO3 33 H (22-26) mmol/L VBG O2 Saturation 50.0 % VBG Base Excess 8.3 mmol/L Sodium 140 (135-145) mmol/L Potassium 3.6 (3.3-5.1) mmol/L Chloride 105 (96-108) mmol/L Carbon Dioxide 26 (22-29) mmol/L Anion Gap 13 (12-20) BUN 16 (9-16) mg/dL Creatinine 0.64 (0.5-1.4) mg/dL Estim Creat Clear Calc 66.1 Estimated GFR > 60 Random Glucose 110 (60-115) mg/dL Calcium 9.4 (8.4-10.2) mg/dL Magnesium 2.0 (1.6-2.6) mg/dL Total Creatine Kinase 69 (26-140) U/L Troponin I High Sens 4.0 (<3.5-17.0) ng/L Urine Color Urine Appearance Urine pH (5.0-9.0) Ur Specific [place] (1.005-1.025) Urine Protein (Neg-Trace) mg/dL Urine Glucose (UA) (Negative) mg/dL Urine Ketones (Negative) mg/dL Urine Blood (Negative) Urine Nitrite (Negative) Ur Leukocyte Esterase (Negative) Urine RBC (0-2) /HPF Urine WBC (0-5) /HPF Ur Squamous Epith Cells (0-2) /HPF Urine Bacteria (None Seen) Hyaline Casts (0-2) /LPF Influenza Type A (PCR) NEGATIVE (Negative) Influenza Type B (PCR) NEGATIVE (Negative) RSV RNA Qual (PCR) NEGATIVE (Negative) SARS-CoV-2 RNA (RT-PCR) NEGATIVE (Negative) 07/17/24 Range/Units 15:39 WBC (4.8-10.8) X10*3/uL RBC (4.20-5.50) X10*6/uL Hgb (12.0-16.0) g/dl Hct (37.0-47.0) % MCV (80.0-98.0) fL MCH (27.0-33.0) pg MCHC (31.0-35.0) g/dl RDW (11.0-16.0) % Plt Count (160-400) X10*3/uL MPV (9.4-12.3) fL Immature Gran % (Auto) (0.0-0.4) % Neut % (Auto) (45-73) % Lymph % (Auto) (20-40) % [place] % (Auto) (2-11) % Eos % (Auto) (0-4) % Baso % (Auto) (0-2) % Lymph # (Auto) (1.2-4.9) X10*3/uL [place] # (Auto) (0.1-1.2) X10*3/uL Eos # (Auto) (0.0-0.4) X10*3/uL Baso # (Auto) (0.0-0.2) X10*3/uL Abs Immat Gran (auto) (0.00-0.03) X10*3/uL Absolute Neuts (auto) (2.0-8.3) x10*3/uL Absolute Nucleated RBC (0.0-0.012) X10*3/uL Nucleated RBC % (auto) (0.0-0.2) /100WBC VBG pH (7.32-7.43) VBG pCO2 mmHg VBG pO2 mmHg VBG HCO3 (22-26) mmol/L VBG O2 Saturation % VBG Base Excess mmol/L Sodium (135-145) mmol/L Potassium (3.3-5.1) mmol/L Chloride (96-108) mmol/L Carbon Dioxide (22-29) mmol/L Anion Gap (12-20) BUN (9-16) mg/dL Creatinine (0.5-1.4) mg/dL Estim Creat Clear Calc Estimated GFR Random Glucose (60-115) mg/dL Calcium (8.4-10.2) mg/dL Magnesium (1.6-2.6) mg/dL Total Creatine Kinase (26-140) U/L Troponin I High Sens (<3.5-17.0) ng/L Urine Color Yellow Urine Appearance Cloudy Urine pH 6.5 (5.0-9.0) Ur Specific [place] 1.015 (1.005-1.025) Urine Protein Negative (Neg-Trace) mg/dL Urine Glucose (UA) Negative (Negative) mg/dL Urine Ketones Negative (Negative) mg/dL Urine Blood Trace H (Negative) Urine Nitrite Positive H (Negative) Ur Leukocyte Esterase Large (3+) H (Negative) Urine RBC 0-2 (0-2) /HPF Urine WBC >50 H (0-5) /HPF Ur Squamous Epith Cells 3-5 (0-2) /HPF Urine Bacteria 4+ (None Seen) Hyaline Casts 0-2 (0-2) /LPF Influenza Type A (PCR) (Negative) Influenza Type B (PCR) (Negative) RSV RNA Qual (PCR) (Negative) SARS-CoV-2 RNA (RT-PCR) (Negative) Independent Interpretation I performed an independent interpretation of an: EKG, Plain X-Ray and CT Scan Interpretation: My interpretation is in agreement with the radiologist's impression of these imaging studies. L Report Number: [id number]: Total DLP = 296.00 mGy-cm EXAMINATION: CT ABDOMEN PELVIS WITHOUT IV CONTRAST HISTORY: fall, pain COMPARISON: There are no prior studies for comparison. TECHNIQUE: CT scan of the abdomen and pelvis was performed without contrast using standard departmental protocol. Coronal and sagittal reformatted images were generated and reviewed. Oral contrast material was not administered at the request of the referring physician. This CT exam was performed with one or more of the following dose reduction techniques: automated exposure control, adjustment of the mA and/or kV according to patient size, use of iterative reconstruction technique. DLP: 588.77 mGy-cm FINDINGS: LOWER CHEST: The visualized lung bases are clear. There is no pleural effusion. CARDIOVASCULATURE: The heart is normal in size. There is no pericardial effusion. LIVER: The liver is normal in size and contour. The liver has an unremarkable unenhanced appearance. GALLBLADDER / BILE DUCTS: The gallbladder is unremarkable. There is no intra or extrahepatic biliary ductal dilatation. SPLEEN: The spleen is normal in size and has an unremarkable unenhanced appearance. PANCREAS: The pancreas has an unremarkable unenhanced appearance. ADRENAL GLANDS: Unremarkable. KIDNEYS/RETROPERITONEUM: No renal calculi are identified. There is no hydronephrosis. There is a 1.2 cm cyst at the anterior aspect of the right kidney. LYMPH NODES: No retroperitoneal lymphadenopathy is identified in the abdomen or pelvis. VASCULATURE: The abdominal aorta demonstrates atherosclerotic calcification, but is normal in caliber. MESENTERY/PERITONEUM: No free fluid. No masses. There is no free intraperitoneal gas. STOMACH: There is a large hiatal hernia. SMALL BOWEL: The small bowel is normal in caliber. COLON: The colon is unremarkable. APPENDIX: The appendix is not seen, however no inflammatory changes are seen adjacent to the cecum. URINARY BLADDER/PELVIC ORGANS: The urinary bladder is unremarkable. The uterus has an unremarkable unenhanced appearance. BONES / SOFT TISSUES: The patient is status post posterior spinal fusion from T11 through L5 with pedicle screws and spinal stabilization rods. There is slight retrolisthesis of L3 on L4 and grade I spondylolisthesis of L4 on L5. There is diffuse degenerative disc disease. No fracture is seen. The patient is status post left total hip arthroplasty. CT/CT abdomen pelvis wo IV con IMPRESSION: No evidence of traumatic injury to the abdomen or pelvis on this unenhanced examination. Please note that evaluation for solid organ injury is limited by lack of intravenous contrast material. Electronically signed by: Mukesh Zacarias MD 07/17/2024 10:30 AM [facility] Dictated By: Mukesh Zacairas MD Signed By: Electronically signed by Mukesh Zacarias MD 07/17/24 1030 Report Number: [id number]: Total DLP = 644.00 mGy-cm EXAMINATION: CT HEAD WITHOUT CONTRAST CLINICAL INFORMATION: fall, pain COMPARISON: Correlated to MRI dated June 19, 2024 demonstrated acute nonhemorrhagic ischemia. TECHNIQUE: Contiguous axial imaging was performed from the skull base to vertex without intravenous administration of contrast. This CT examination was performed using dose optimization techniques as appropriate, variously including the following: *Automated exposure control *Adjustment of mA and/or kV according to patient size (this includes techniques or standardized protocols for targeted exams where dose is matched to indication/reason for exam; i.e. extremities or head) *Use of iterative reconstruction technique DLP: 634.9 mGy-cm FINDINGS: The bony calvarium is intact. The skull base is intact. No acute intracranial hemorrhage, mass effect, midline shift, hydrocephalus or herniation. Bilateral multifocal patchy and confluent deep periventricular white matter hypodensities involving centrum semiovale and garcia radiata. Old lacunar infarcts in the centrum semiovale and garcia radiata and right cingulate gyrus. Prominence of the extra-axial CSF spaces cerebral sulci and ventricles. Calcified plaques in the V4 segments of the vertebral arteries and cavernous supracavernous segments both ICAs. Posterior cranial fossa contents demonstrated no acute intracranial hemorrhage or mass effect. Sellar/suprasellar region demonstrated no gross masses or hemorrhage. Craniocervical junction is intact. No hematoma in the intraconal or extraconal compartments of the orbits. There is an apparent high riding left internal jugular bulb. No air-fluid levels in the included paranasal sinuses. Tympanic cavities and mastoid air cells are aerated. Minimal secretions in the right mastoid air cells.. CT/CT head/brain wo IV con IMPRESSION: No acute fracture, bony calvarium. No acute intracranial hemorrhage. Small vessel occlusive disease. Superimposed acute stroke/nonhemorrhagic ischemia cannot be excluded. Global cerebral atrophy. Probable high riding left internal jugular bulb. Electronically signed by: Edmond Paniagua MD 07/17/2024 11:09 AM [facility] Dictated By: Edmond Jones MD Signed By: Electronically signed by Edmond Lauren MD 07/17/24 1109 EXAMINATION: XR CHEST CLINICAL INFORMATION: weakness, dizziness COMPARISON: April 16, 2023. TECHNIQUE: 2 views of the chest were obtained. FINDINGS: No consolidation pleural effusion or pneumothorax. Cardiomediastinal silhouette demonstrates a moderate-sized hiatal hernia. Calcified plaque thoracic aorta. Metallic hardware for a thoracolumbar fusion no fully included in the exam. Pineal versus osteoporosis. XR/XR chest 2V IMPRESSION: No acute airspace disease. Hiatal hernia, moderate size. Electronically signed by: Edmond Paniagua MD 07/17/2024 10:21 AM [facility] Dictated By: Edmond Jones MD Signed By: Electronically signed by Edmond Lauren MD 07/17/24 1021 Report Number: [id number]: Total DLP = 296.00 mGy-cm EXAMINATION: CT CERVICAL SPINE WITHOUT CONTRAST CLINICAL INFORMATION: Status post fall. COMPARISON: None available. TECHNIQUE: Contiguous axial images through the cervical spine using 3 mm collimation with bone and soft tissue algorithm. Sagittal and coronal reformatted images acquired. This CT examination was performed using dose optimization techniques as appropriate, variously including the following: *Automated exposure control *Adjustment of mA and/or kV according to patient size (this includes techniques or standardized protocols for targeted exams where dose is matched to indication/reason for exam; i.e. extremities or head) *Use of iterative reconstruction technique DLP: 296.50 mGy centimeter. FINDINGS: Degenerative changes in the periodontal C1 region. Craniocervical junction is intact. Multilevel marginal osteophyte formation and endplate irregularity decreased intervertebral disc height and subchondral cyst formation at C6-7 and to a lesser extent C3-4, C5-6 and C4-5 levels. Grade 1 anterolisthesis C4-5 likely degenerative. Reverse curvature apex at C5-6. Facet joint hypertrophy at multiple levels from C2 C7 more conspicuous at C3-4. Calcifications of the ligamentum flavum from C3 to C5. C1 is intact. C2 is intact. C3 is intact. C4 is intact. C5 is intact. C6 is intact. C7 is intact.. No prevertebral compartment hematoma. Calcified plaques in the ICAs. Tympanic cavities and mastoid cells are aerated. Calcified plaques in the cavernous supracavernous segments both ICAs and V4 segments of the left vertebral artery. CT/CT cervical spine wo IV con IMPRESSION: Level cervical spondylosis resulting in grade 1 anterolisthesis C4-5 without acute fracture or trauma-related listhesis. Fleischner guidelines were followed. Electronically signed by: Edmond Paniagua MD 07/17/2024 11:04 AM EST [facility] Dictated By: Edmond Jones MD Signed By: Electronically signed by Edmond Lauren MD 07/17/24 1104 EXAMINATION: XR KNEE, LEFT CLINICAL INFORMATION: pain, injury COMPARISON: None available. TECHNIQUE: 2 views of the left knee. FINDINGS: Metallic prosthesis with a femoral and tibial plateau components well seated in the osseous structures. The prostate is intact. The alignment is normal. No loosening. No cortical disruption in the osseous structures. XR/XR knee LT 2V IMPRESSION: Total left knee arthroplasty prosthesis, intact without displacement. Electronically signed by: Edmond Paniagua MD 07/17/2024 11:11 AM EST [facility] Dictated By: Edmond Jones MD Signed By: Electronically signed by Edmond Lauren MD 07/17/24 1111 I independently interpreted this EKG and am in agreement with the below findings: Vent. Rate: 79 BPM QRS Dur: 92 ms QT Int: 398 ms QTcB Int: 456 ms Poor data quality NSR 07/17/24 1058 Radiology Impression Discussion of test interpretation with radiology: I have reviewed the radiologist's reading. Independent Historian Clinical information obtained from an independent historian. History obtained from or confirmed by: EMS (EMS provided additional history and confirmed the history provided by the patient.) and Other (patient's daughter provided additional history and confirmed the history provided by the patient.) Prescription Management I considered prescription management with: Antibiotic (patient started on antibiotic for UTI) Discharge Plan Discharge Clinical Impression: Acute UTI, Weakness, Fall Patient Disposition: Still a Patient Prescriptions: No Action omeprazole 40 mg capsule,delayed release(DR/EC) 40 mg PO DAILY@0630 Qty: 90 3RF aspirin 81 mg Tablet,Chewable 81 mg PO DAILY Qty: 30 0RF oxycodone 5 mg Tablet See Rx Instructions .ROUTE .COMPLEX PRN (Reason: Pain, Moderate(Pain Scale 4-6)) Qty: 40 0RF Rx Instructions: 1-2 tabs po q4 hours prn pain; Partial Fill upon patient request. acetaminophen 325 mg Tablet 975 mg PO Q8H Qty: 20 0RF heparin (porcine) 5,000 unit/mL Solution 5,000 unit subcut Q8H Qty: 25 0RF atorvastatin 40 mg tablet 40 mg PO DAILY Qty: 20 0RF baclofen 10 mg tablet 10 mg PO BID PRN (Reason: Pain) docusate sodium [Colace] 100 mg capsule 100 mg PO BID PRN (Reason: Constipation) (DME) back brace Misc See Rx Instructions .Route Qty: 1 0RF Rx Instructions: LSO brace with thoracic extension CPT 10: M41.80 CHRISTOPHER: 99 Print Language: Bahamian
[2024-07-17 11:19] LABS: VBG pCO2 48 mmHg; VBG pH 7.44 (7.32-7.43); VBG pO2 33 mmHg
[2024-07-17 11:20] LABS: VBG Base Excess 8.3 mmol/L; VBG HCO3 33 mmol/L (22-26)
[2024-07-17 11:23] LABS: Venous Blood Gas Refer to POC result
[2024-07-17 11:47] VITALS: PULSE 79
[2024-07-17 12:07] LABS: Influenza A PCR NEGATIVE (Negative); Influenza B PCR NEGATIVE (Negative); Resp Syncy Virus RNA Qual PCR NEGATIVE (Negative); SARS COV2 PCR INHOUSE NEGATIVE (Negative)
[2024-07-17 13:11] VITALS: BP 150/81; PULSE 87; RESP 16; TEMP 36.7; O2SAT 95
--- NOTE | 2024-07-17 14:37 | MHC.CM.ED ---
Addendum entered by Muriel Armstrong 07/17/24 14:56: Received return telephone call from Yamel. Discharge plan will be STR at this time. Referral will be broadcasted locally for bed offers. Original Note: Received case management consult from Faina FORMAN. Patient came to the ER due to a fall with knee pain. Work up essentially negative. Physical therapy eval completed. Short term rehab is recommended. Attempted to meet with patient in regards to discharge planning. Patient has a little confusion at this time. Spoke with patient's daughter, Yamel, via telephone at [phone]. Patient resides at [facility] in [place]. Patient was at [facility] from 06/20-07/14. Patient is now unable to self transfer out of bed. The [facility] is unable to manage residents that are unable to self transfer. Yamel requesting referral to [facility] in [place]. T/W spoke with Lianna of [facility]. They are able to accept residents that require 2 person assist and sandra lift for transfers. Lianna will reach out to Yamel to see if [facility] would be a good fit for patient. Continue to monitor for d/c needs.
[2024-07-17 14:55] VITALS: BP 169/70; PULSE 94; RESP 18; TEMP 36.6; O2SAT 96
--- NOTE | 2024-07-17 15:49 | MHC.EDTECH ---
pt transferred to bedside commode x2 assist, slightly unsteady, able to void, UA sent to lab
[2024-07-17 15:52] LABS: Appearance Urine Cloudy; Color Urine Yellow; Glucose Urine UA Negative (Negative); Leukocyte Esterase Urine Large (3+) (Negative); Nitrite Urine Positive (Negative); PH 6.5 (5.0-9.0); Specific Gravity - Urine 1.015 (1.005-1.025); UMIC TRIGGER UACC YES; Urine Blood Trace (Negative); Urine Ketones Negative (Negative); Urine Protein Negative (Neg-Trace)
[2024-07-17 16:12] LABS: Bacteria Urine 4+ (None Seen); Hyaline Casts Urine 0-2 /LPF (0-2); RBC Urine 0-2 /HPF (0-2); UACC Culture Trigger YES; WBC Urine >50 /HPF (0-5)
--- NOTE | 2024-07-17 17:15 | MHC.CM.ED ---
CM reviewed bed offers with daughter, including 3 facilities that are reviewing. Daughter, Yamel will review with her family. Currently interested in [facility] (with bed available on Sunday) and [facility] that are reviewing. All facilities that offered bed are aware that family is reviewing options and that CM will reach out to them in the morning regarding bed acceptance. Yamel tells CM that she spoke with [facility]. The plan moving forward per Yamel is to have her mother go to [facility] to increase strength, have formal dementia testing and then return to [facility] if possible, otherwise the family will consider other [facility] with memory care levels.
[2024-07-17 20:00] VITALS: BP 173/79; PULSE 74; RESP 18; TEMP 36.3; O2SAT 96
--- NOTE | 2024-07-17 20:29 | PC.NURSE ---
pt med list not updated. updated with pt and called provider to look over and order pt meds. pt states she has a headache 12/11 at this time.
--- NOTE | 2024-07-18 00:47 | PC.NURSE ---
pt waking up to get oob, needs met pt confused, (UTI), pt redirectable back in bed with alarm on. still waiting for med rec to be approved. pt has not received her daily meds.
--- NOTE | 2024-07-18 00:51 | PC.NURSE ---
pt took her back brace off. repositioned, pt also pulled her iv out.
[2024-07-18] MEDS: Heparin Sodium,Porcine 5,000 UNIT/ML VIAL 5000 UNIT SUBCUT ×2 (05:05→14:47)
[2024-07-18] MEDS: oxyCODONE HCl Immed Release 5 MG TABLET 10 MG PO (05:06)
[2024-07-18] MEDS: Omeprazole 40 MG CAPSULE.DR PO (05:06)
[2024-07-18] MEDS: Acetaminophen 325 MG TABLET 975 MG PO ×2 (05:07→14:47)
--- NOTE | 2024-07-18 05:08 | PC.NURSE ---
pt medication list crossed over, pt medicated for 10/10 pain to knee and also with a scheduled tylenol order as well.
[2024-07-18 05:26] VITALS: BP 143/68; PULSE 77; RESP 19; TEMP 36.5; O2SAT 93
[2024-07-18 07:00] VITALS: BP 143/68; PULSE 77; RESP 19; TEMP 36.5
[2024-07-18 08:00] VITALS: BP 132/63; PULSE 70; RESP 18; TEMP 36.6; O2SAT 98
--- NOTE | 2024-07-18 08:32 | MHC.CM.ED ---
Addendum entered by Muriel Armstrong 07/18/24 09:19: Per Yamel, facility choices: 1) [facility] 2) [facility] 3) [facility] Original Note: Patient remains in ER overflow. Waiting for telephone call from patient's daughter, Yamel, about facility 1st choice. Continue to monitor for d/c needs.
[2024-07-18] MEDS: Aspirin 81 MG TAB.CHEW PO (08:44)
[2024-07-18] MEDS: Atorvastatin Calcium 40 MG TABLET PO (08:45)
--- NOTE | 2024-07-18 12:02 | MHC.CM.ED ---
[facility] bed. Patient can leave at 4pm. Ari MOREL booked. Med nec with chart. Patient, daughter Margie Montesinos RN and Faina FORMAN aware. Continue to monitor for d/c needs.
[2024-07-18] MEDS: levoFLOXacin 750 MG TABLET PO (14:47)
--- NOTE | 2024-07-18 15:01 | PC.NURSE ---
ortho static vitals not done this morning, this RN asked provider if still needed to be done and she said no
[2024-07-18 15:49] VITALS: BP 176/89; PULSE 83; RESP 16; TEMP 36.6; O2SAT 96
[2024-07-18 17:31] VITALS: BP 140/69; PULSE 83; RESP 16; TEMP 36.6; O2SAT 96
== END 2024-07-18 17:32 | disposition skilled nursing facility (03) ==
PROVIDERS: Physician Assistant Medical; Emergency Provider Emergency Medicine Emergency Medical Services; PCP Internal Medicine
DX: S89.92XA Unspecified injury of left lower leg, initial encounter (principal); S09.90XA Unspecified injury of head, initial encounter; N39.0 Urinary tract infection, site not specified; R51.9 Headache, unspecified; M54.2 Cervicalgia; R10.2 Pelvic and perineal pain; R07.89 Other chest pain; R53.1 Weakness; R94.31 Abnormal electrocardiogram [ECG] [EKG]; M25.562 Pain in left knee; R26.81 Unsteadiness on feet; W06.XXXA Fall from bed, initial encounter; Y93.9 Activity, unspecified; Y92.003 Bedroom of unspecified non-institutional (private) residence as the place of occurrence of the external cause; Y99.8 Other external cause status; Z79.899 Other long term (current) drug therapy; Z03.818 Encounter for observation for suspected exposure to other biological agents ruled out
CPT/HCPCS: 0241U; 36415; 70450; 71046; 72125; 73560; 74176; 80048; 81001; 81003; 82550; 82803; 83735; 84484; 85025; 87086; 87088; 87186; 93005; 97162; 99285; J1644

== ENCOUNTER → 2024-07-17 07:23 | Outpatient (BNV) | payer MEDICARE, SELFPAY | PROVIDERS: Emergency Provider Emergency Medicine Emergency Medical Services; PCP Internal Medicine; Visit Provider Internal Medicine Cardiovascular Disease | DX: R94.31 Abnormal electrocardiogram [ECG] [EKG] (principal); R55 Syncope and collapse | CPT/HCPCS: 93010 ==

== ENCOUNTER → 2024-07-17 09:26 | Outpatient (BNV) | payer MEDICARE, SELFPAY | PROVIDERS: Emergency Provider Emergency Medicine Emergency Medical Services; PCP Internal Medicine; Visit Provider Radiology Diagnostic Radiology | DX: M25.562 Pain in left knee (principal); Z96.652 Presence of left artificial knee joint; R53.1 Weakness; G31.9 Degenerative disease of nervous system, unspecified; M47.812 Spondylosis without myelopathy or radiculopathy, cervical region; M43.12 Spondylolisthesis, cervical region; R10.9 Unspecified abdominal pain | CPT/HCPCS: 74176 ==

== ENCOUNTER 2024-07-21 06:07 | Outpatient (REF) | payer MEDICARE, SELFPAY ==
[2024-07-21 06:11] LABS: MANUAL DIFF FLAG NO
[2024-07-21 07:15] LABS: Basophils Percent Auto 0.5 % (0-2); Eosinophils Absolute Auto 0.4 X10*3/uL (0.0-0.4); Eosinophils Percent Auto 5.8 % (0-4); Hematocrit 31.6 % (37.0-47.0); Hemoglobin 10.8 g/dl (12.0-16.0); Imm Gran Abs Auto 0.02 X10*3/uL (0.00-0.03); Imm Gran Pct Auto 0.3 % (0.0-0.4); Lymphocytes Absolute Auto 1.6 X10*3/uL (1.2-4.9); Lymphocytes Percent Auto 24.7 % (20-40); Mean Corpuscular HGB Conc 34.2 g/dl (31.0-35.0); Mean Corpuscular Hemoglobin 31.8 pg (27.0-33.0); Mean Corpuscular Volume 92.9 fL (80.0-98.0); Mean Platelet Volume 9.4 fL (9.4-12.3); Monocytes Absolute Auto 0.7 X10*3/uL (0.1-1.2); Neutrophils Absolute Auto 3.8 x10*3/uL (2.0-8.3); Neutrophils Percent Auto 58.7 % (45-73); Platelet Count 274 X10*3/uL (160-400); Red Cell Distribution Width 13.9 % (11.0-16.0); White Blood Count 6.5 X10*3/uL (4.8-10.8)
[2024-07-21 07:23] LABS: Alanine Aminotransferase 130 U/L (0-31); Albumin Level 3.6 g/dL (3.5-5.0); Alkaline Phosphatase 355 U/L (39-117); Anion Gap 14 (12-20); Aspartate Amino Transferase 82 U/L (5-31); Bilirubin Total 0.9 mg/dL (0.0-1.0); Blood Urea Nitrogen 18 mg/dL (9-16); Calcium 8.8 mg/dL (8.4-10.2); Carbon Dioxide 23 mmol/L (22-29); Chloride 105 mmol/L (96-108); Estimated Glomerular Filt Rate > 60; Glucose Random 91 mg/dL (60-115); Potassium 3.2 mmol/L (3.3-5.1); Sodium 139 mmol/L (135-145); Total Protein 6.2 g/dL (6.5-8.0)
== END 2024-07-21 06:08 | disposition home or self-care (01) ==
LOC: HO.MMNH2L 06:07
PROVIDERS: Visit Provider Student in an Organized Health Care Education/Training Program
DX: N39.0 Urinary tract infection, site not specified (principal); R53.1 Weakness
CPT/HCPCS: 36415; 80053; 85025

== ENCOUNTER 2024-07-23 05:21 | Outpatient (REF) | payer MEDICARE, SELFPAY ==
[2024-07-23 05:23] LABS: MANUAL DIFF FLAG NO
--- OUTSIDE RECORDS SUMMARY | 2024-07-23 05:24 | XMS_ITS ---
Author Organization [facility] Address [address] [place] [address] Care Team Providers Care Certification And Selection Specialist Name Role Phone Ashleigh Grullon MD Primary Care Provider Mukesh Taveras [phone] ALLERGIES Allergen (clinical drug ingredient) Drug/Non Drug [...] Hiatal hernia (K44.9) Active confirmed Hiatal hernia (41652445) Problem Acute gastritis with bleeding (K29.01) Active confirmed Acute hemorrhagic gastritis (6202980) Problem Chronic gastritis with bleeding, unspecified gastritis type (K29.51) Active confirmed Chronic antral gastritis with hemorrhage (disorder) (328124413) Problem Chronic diarrhea (K52.9) Active confirmed Chronic diarrhea (609661678) VITAL SIGNS BMI 26.15 kg/m2 08/28/2023 Blood pressure systolic 00 mm Hg 08/28/19 24 Blood pressure diastolic 00 mm Hg 024 Height 63.5 in 08/28/2023 Temperature 96.4 degrees Fahrenheit 08/28/19 24 Weight 150 lbs 08/28/2023 Encounters Encounter Location Date Provider Diagnosis [facility] [address] [place] [address] 08/28/2023 Mukesh Bearden Iron deficiency anem ia [...]
--- OUTSIDE RECORDS SUMMARY | 2024-07-23 05:24 | XMS_ITS | Encounter Summary ---
Author Organization [facility] Address [address] [place] [address] Care Team Providers Care Manager Library Name Role Phone Leonardo García MD Primary Care Provider [phone] Encounter Details Date Type Department Care Team (Late st Contact Info) Description 07/05/2024 Lab Requisition [facility] [address] [facility] [place] [address] Chris Barlow MD [address] [place] [phone] Encounter for other general examination Social History [...] CBC auto differential (07/05/2024 7:00 AM EST) [facility] WBC 9.9 4.8 - 10.8 K/mcL LAB HEMETOLOGY METHOD 07/05/2024 11:42 AM [facility] RBC 3.60(L) 3.80 - 4.80 M/mcL LAB HEMETOLOGY METHOD 07/05/2024 11:42 AM [facility] Hemoglobin 10.7(L) 11.5 - 16.0 g/dL LAB HEMETOLOGY METHOD 07/05/2024 11:42 AM [facility] Hematocrit 32.8(L) 35.0 - 47.0 % LAB HEMETOLOGY METHOD 07/05/2024 11:42 AM [facility] MCV 92.1 79.0 - 98.0 FL LAB HEMETOLOGY METHOD 07/05/2024 11:42 AM [facility] MCH 30.1 27.0 - 32.0 pcg LAB HEMETOLOGY METHOD 07/05/2024 11:42 AM [facility] MCHC 32.6 32.0 - 37.0 g/dL LAB HEMETOLOGY METHOD 07/05/2024 11:42 AM [facility] RDW 14.2 11.0 - 15.0 % LAB HEMETOLOGY METHOD 07/05/2024 11:42 AM [facility] Platelets 439(H) 130 - 400 K/mcL LAB HEMETOLOGY METHOD 07/05/2024 11:42 AM [facility] MPV 8.9 7.0 - 11.0 FL LAB HEMETOLOGY METHOD 07/05/2024 11:42 AM [facility] NRBC 0.0 <1.0 % LAB HEMETOLOGY METHOD 07/05/2024 11:42 AM [facility] NRBC Absolute 0.00 <0.10 K/mcL LAB HEMETOLOGY METHOD 07/05/2024 11:42 AM [facility] Neutrophils Relative 71.2 % LAB HEMETOLOGY METHOD 07/05/2024 11:42 AM [facility] Lymphocytes Relative 16.3 % LAB HEMETOLOGY METHOD 07/05/2024 11:42 AM [facility] Monocytes Relative 10.4 % LAB HEMETOLOGY METHOD 07/05/2024 11:42 AM [facility] Eosinophils Relative 1.2 % LAB HEMETOLOGY METHOD 07/05/2024 11:42 AM [facility] Basophils Relative 0.4 % LAB HEMETOLOGY METHOD 07/05/2024 11:42 AM [facility] Immature Granulocytes Relative 0.5 % LAB HEMETOLOGY METHOD 07/05/2024 11:42 AM [facility] Neutrophils Absolute 7.06(H) 1.50 - 7.00 K/mcL LAB HEMETOLOGY METHOD 07/05/2024 11:42 AM [facility] Lymphocytes Absolute 1.62 1.00 - 5.00 K/mcL LAB HEMETOLOGY METHOD 07/05/2024 11:42 AM [facility] Monocytes Absolute 1.03(H) 0.20 - 1.00 K/mcL LAB HEMETOLOGY METHOD 07/05/2024 11:42 AM [facility] Eosinophils Absolute 0.12 0.00 - 0.50 K/mcL LAB HEMETOLOGY METHOD 07/05/2024 11:42 AM [facility] Basophils Absolute 0.04 0.00 - 0.20 K/mcL LAB HEMETOLOGY METHOD 07/05/2024 11:42 AM [facility] Immature Granulocytes Absolute 0.05(H) 0.00 - 0.03 K/mcL LAB HEMETOLOGY METHOD 07/05/2024 11:42 AM EST [facility] Blood Venous blood specimen / Unknown Venipuncture / Unknown 07/05/2024 7:00 AM EST 07/05/2024 10:39 AM EST Chris Barlow MD LAB BLOOD ORDERABLES Final Resu lt [facility] [address] [place] [address], [place] [phone] * Magnesium (07/05/2024 7:00 AM EST) Magnesium 2.4 1.9 - 2.6 mg/dL LAB CHEMISTRY METHOD 07/05/2024 12:15 PM [facility] Blood Venous blood specimen / Unknown Venipuncture / Unknown 07/05/2024 7:00 AM EST 07/05/2024 10:39 AM EST Chris Barlow MD LAB BLOOD ORDERABLES Final Resu lt [facility] [address] [place] [address], [place] [phone] * (ABNORMAL) Comprehensive metabolic panel (07/05/2024 7:00 AM EST) Sodium 132(L) 133 - 145 mmol/L LAB CHEMISTRY METHOD 07/05/2024 12:14 PM [facility] Potassium 4.3 3.5 - 5.5 mmol/L LAB CHEMISTRY METHOD 07/05/2024 12:14 PM [facility] Chloride 98 96 - 110 mmol/L LAB CHEMISTRY METHOD 07/05/2024 12:14 PM [facility] CO2 28 21 - 32 mmol/L LAB CHEMISTRY METHOD 07/05/2024 12:14 PM [facility] Anion Gap 6 3 - 11 LAB CHEMISTRY METHOD 07/05/2024 12:14 PM [facility] Glucose 95 70 - 100 mg/dL LAB CHEMISTRY METHOD 07/05/2024 12:14 PM [facility] BUN 21 5 - 25 mg/dL LAB CHEMISTRY METHOD 07/05/2024 12:14 PM [facility] Creatinine 0.80 0.50 - 1.10 mg/dL LAB CHEMISTRY METHOD 07/05/2024 12:14 PM [facility] eGFR 74 >=60 mL/min/1. 73m2 LAB CHEMISTRY METHOD 07/05/2024 12:14 PM [facility] Comment:Calculation based on the??Chronic Kidney Disease Epidemiology Collaboration (CKD-EPI) equation refit??without adjustment for race. BUN/Creatinine Ratio 26.3 LAB CHEMISTRY METHOD 07/05/2024 12:14 PM [facility] Calcium 8.9 8.5 - 10.5 mg/dL LAB CHEMISTRY METHOD 07/05/2024 12:14 PM [facility] AST (SGOT) 20 10 - 42 unit/L LAB CHEMISTRY METHOD 07/05/2024 12:14 PM [facility] ALT (SGPT) 50 10 - 60 unit/L LAB CHEMISTRY METHOD 07/05/2024 12:14 PM [facility] Alkaline Phosphatase 203(H) 42 - 121 unit/L LAB CHEMISTRY METHOD 07/05/2024 12:14 PM [facility] Total Protein 6.1 6.0 - 8.0 g/dL LAB CHEMISTRY METHOD 07/05/2024 12:14 PM [facility] Albumin 3.5 3.2 - 5.0 g/dL LAB CHEMISTRY METHOD 07/05/2024 12:14 PM [facility] Total Bilirubin 0.9 0.0 - 1.4 mg/dL LAB CHEMISTRY METHOD 07/05/2024 12:14 PM [facility] Blood Venous blood specimen / Unknown Venipuncture / Unknown 07/05/2024 7:00 AM EST 07/05/2024 10:39 AM EST us Chris Barlow MD LAB BLOOD ORDERABLES Final Resu lt Performing Organization Address City/State/[facility] Co de Phone Number [facility] ([facility] [address] [place] [address], documented in this encounter Visit Diagnoses Diagnosis Encounter for other general examination documented in this encounter Care Teams Manager Library Relationship Specialty Start Date End Date Leonardo García MD [address] [place] [phone] PCP - General Internal Medicine 06/30/24 documented as of this encounter
--- OUTSIDE RECORDS SUMMARY | 2024-07-23 05:24 | XMS_ITS | Clinical Summary ---
Author Organization [address] Address [address] [place] [address] Phone Care Team Providers Care Cut Off Saw Operator Metal Name Role Phone Leonardo García MD Primary Care Provider [phone] Encounters Date Type Department Care Team Description 07/07/2024 Lab Requisition [facility] Lab [address] [place] [address] Chris Barlow MD Encounter for other general examination 07/06/2024 Lab Requisition [facility] Lab [address] [place] [address] Chris Barlow MD Encounter for other general examination 07/05/2024 Lab Requisition [facility] Lab [address] [place] [address] Chris Barlow MD Encounter for other general examination 06/29/2024 Lab Requisition [facility] Lab [address] [place] [address] Chris Barlow MD Encounter for other general examination 06/23/2024 Lab Requisition [facility] Lab [address] [place] [address] Chris Barlow MD Encounter for other general examination 06/22/2024 Lab Requisition [facility] Lab [address] [place] [address] Chris Barlow MD Encounter for other general examination 06/21/2024 Lab Requisition [facility] Main Lab [address] [facility] [place] [address] Chris Barlow MD Encounter for [...] LAMINECTOMY DECOMPRESSION; Surgeon: Emeka Lopez MD; Location: [facility] MAIN OPERATING ROOM; Service: Spine; Laterality: Bilateral Posterior; LUMBAR FUSION 08/30/2017 Bilateral Posterior PROCEDURE:LUMBAR FUSION;COMMENT:Procedure: L4 - 5 FUSION SPINE LUMBAR POSTERIOR, INSTRUMENTED ARTHRODESIS; Surgeon: Emeka Lopez MD; Location: [facility] MAIN OPERATING ROOM; Service: Spine; Laterality: Bilateral Posterior; AUTOGRAFT/SPINE SURGERY 08/30/2017 Left PROCEDURE:AUTOGRAFT/SPINE SURGERY;COMMENT:Procedure: AUTOGRAFT BONE SPINE; Surgeon: Emeka Lopez MD; Location: [facility] MAIN OPERATING ROOM; Service: Spine; Laterality: Left; TOTAL KNEE ARTHROPLASTY 01/03/2021 Left PROCEDURE:TOTAL KNEE ARTHROPLASTY TOTAL HIP ARTHROPLASTY 02/16/2022 Left PROCEDURE:TOTAL HIP ARTHROPLASTY;COMMENT:David escalerae: REPLACEMENT TOTAL HIP; Surgeon: Ottoniel Wells MD; Location: [facility] Service: Orthopedics; [...] Comments DTaP,Tdap,and Td Vaccines (1 - Tdap) 1959 Pneumococcal Vaccine: 50+ Years (1 of 2 [...] this topic Medical Devices Implanted Type Area Automatic Steel Tie Adjuster Device Identifier Shelf Expiration Date Model / Serial / Lot Cement Bone Surg Simplex Radiopq Stry-Howm [id number] Implanted:Qty: 1 on 02/16/2022 by Ottoniel Wells MD Left: Hip [employer] [id number] 05/03/2023 6191-1-010 / / [id number] Hip Head Delta Biolox 36mm-2.5 Stry-Howm [id number] 191 Implanted:Qty: 1 on 02/16/2022 by Ottoniel Wells MD Left: Hip [employer] [id number] 11/10/2026 6570-0-436 / / [id number] Cement Bone Surg Simplex Radiopq Stry-Howm [id number] 092 Implanted:Qty: 1 on 02/16/2022 by Ottoniel Wells MD Left: Hip [employer] [id number] 05/03/2023 6191-1-010 / / [id number] Lp Hex Screw 6.5x30mm Stry-Howm [id number] 78 Implanted:Qty: 1 on 02/16/2022 by Ottoniel Wells MD Left: Hip [employer] [id number] 12/15/2026 2231-8513 / / [id number] Tritanium Cluster Hole Shell 52mm Stry-Howm [id number] Implanted:Qty: 1 on 02/16/2022 by Ottoniel Wells MD Left: Hip [employer] [id number] 09/28/2026 702-04-52E / / [id number] Lp Hex Screw 6.5x20mm Stry-Howm [id number] 57 Implanted:Qty: 1 on 02/16/2022 by Ottoniel Wells MD Left: Hip [employer] [id number] 11/23/2026 9264-9234 / / [id number] Hip Insrt X3 Trident 0d 36mm E Stry-Howm [id number] 921 Implanted:Qty: 1 on 02/16/2022 by Ottoniel Wells MD Left: Hip [employer] [id number] 09/24/2025 623-10-36E / / [id number] Hip Stm Parveen 127 #2 30 124 Stry-Howm [id number] 932 Implanted:Qty: 1 on 02/16/2022 by Ottoniel Wells MD Left: Hip [employer] [id number] 10/21/2026 6057-0230D / / [id number] Plug Bone Sm Stry-Howm [id number] 871 Implanted:Qty: 1 on 02/16/2022 by Ottoniel Wells MD Left: Hip [employer] [id number] 11/16/2026 6215-5-001 / / [id number] Hip Dist Spacer Ostnc Univ #8 Stry-How [id number] 90 Implanted:Qty: 1 on 02/16/2022 by Ottoniel Wells MD Left: Hip [employer] [id number] 01/19/2027 7062-3477 / / [id number] Procedures Procedure Name Priority Date/Time Associated Diagnosis [...] K/mcL LAB HEMETOLOGY METHOD 07/07/2024 10:40 AM [facility] LAB RBC 3.20(L) 3.80 - 4.80 M/mcL LAB HEMETOLOGY METHOD 07/07/2024 10:40 AM [facility] LAB Hemoglobin 10.1(L) 11.5 - 16.0 g/dL LAB HEMETOLOGY METHOD 07/07/2024 10:40 AM [facility] LAB Hematocrit 30.7(L) 35.0 - 47.0 % LAB HEMETOLOGY METHOD 07/07/2024 10:40 AM [facility] LAB MCV 94.8 79.0 - 98.0 FL LAB HEMETOLOGY METHOD 07/07/2024 10:40 AM [facility] LAB MCH 31.2 27.0 - 32.0 pcg LAB HEMETOLOGY METHOD 07/07/2024 10:40 AM [facility] LAB MCHC 32.9 32.0 - 37.0 g/dL LAB HEMETOLOGY METHOD 07/07/2024 10:40 AM [facility] LAB RDW 14.2 11.0 - 15.0 % LAB HEMETOLOGY METHOD 07/07/2024 10:40 AM [facility] LAB Platelets 415(H) 130 - 400 K/mcL LAB HEMETOLOGY METHOD 07/07/2024 10:40 AM [facility] LAB MPV 9.2 7.0 - 11.0 FL LAB HEMETOLOGY METHOD 07/07/2024 10:40 AM [facility] LAB NRBC 0.0 <1.0 % LAB HEMETOLOGY METHOD 07/07/2024 10:40 AM [facility] LAB NRBC Absolute 0.00 <0.10 K/mcL LAB HEMETOLOGY METHOD 07/07/2024 10:40 AM [facility] LAB Neutrophils Relative 57.2 % LAB HEMETOLOGY METHOD 07/07/2024 10:40 AM [facility] LAB Lymphocytes Relative 25.4 % LAB HEMETOLOGY METHOD 07/07/2024 10:40 AM [facility] Monocytes Relative 12.5 % LAB HEMETOLOGY METHOD 07/07/2024 10:40 AM [facility] Eosinophils Relative 3.8 % LAB HEMETOLOGY METHOD 07/07/2024 10:40 AM [facility] Basophils Relative 0.8 % LAB HEMETOLOGY METHOD 07/07/2024 10:40 AM [facility] Immature Granulocytes Relative 0.3 % LAB HEMETOLOGY METHOD 07/07/2024 10:40 AM [facility] LAB Neutrophils Absolute 3.42 1.50 - 7.00 K/mcL LAB HEMETOLOGY METHOD 07/07/2024 10:40 AM [facility] LAB Lymphocytes Absolute 1.52 1.00 - 5.00 K/mcL LAB HEMETOLOGY METHOD 07/07/2024 10:40 AM [facility] Monocytes Absolute 0.75 0.20 - 1.00 K/mcL LAB HEMETOLOGY METHOD 07/07/2024 10:40 AM [facility] LAB Eosinophils Absolute 0.23 0.00 - 0.50 K/mcL LAB HEMETOLOGY METHOD 07/07/2024 10:40 AM [facility] Basophils Absolute 0.05 0.00 - 0.20 K/mcL LAB HEMETOLOGY METHOD 07/07/2024 10:40 AM EST [facility] LAB Immature Granulocytes Absolute 0.02 0.00 - 0.03 K/[facility] LAB HEMETOLOGY METHOD 07/07/2024 10:40 AM [facility] LAB Blood Venous blood specimen / Unknown Venipuncture / Unknown 07/07/2024 6:34 AM EST 07/07/2024 9:05 AM EST us Chris Barlow MD LAB BLOOD ORDERABLES Final Resu lt [facility] [address] [place] [address], [place] [phone] * Basic metabolic panel (07/07/2024 6:34 AM EST) Only the most recent of3 resultswithin the time period is included. Sodium 135 133 - 145 mmol/L LAB CHEMISTRY METHOD 07/07/2024 11:20 AM [facility] Potassium 4.2 3.5 - 5.5 mmol/L LAB CHEMISTRY METHOD 07/07/2024 11:20 AM [facility] Chloride 100 96 - 110 mmol/L LAB CHEMISTRY METHOD 07/07/2024 11:20 AM [facility] CO2 28 21 - 32 mmol/L LAB CHEMISTRY METHOD 07/07/2024 11:20 AM [facility] Anion Gap 7 3 - 11 LAB CHEMISTRY METHOD 07/07/2024 11:20 AM [facility] Glucose 92 70 - 100 mg/dL LAB CHEMISTRY METHOD 07/07/2024 11:20 AM [facility] BUN 19 5 - 25 mg/dL LAB CHEMISTRY METHOD 07/07/2024 11:20 AM [facility] Creatinine 0.70 0.50 - 1.10 mg/dL LAB CHEMISTRY METHOD 07/07/2024 11:20 AM [facility] eGFR 86 >=60 mL/min/1. 73m2 LAB CHEMISTRY METHOD 07/07/2024 11:20 AM [facility] Comment:Calculation based on the??Chronic Kidney Disease Epidemiology Collaboration (CKD-EPI) equation refit??without adjustment for race. BUN/Creatinine Ratio 27.1 LAB CHEMISTRY METHOD 07/07/2024 11:20 AM [facility] Calcium 9.0 8.5 - 10.5 mg/dL LAB CHEMISTRY METHOD 07/07/2024 11:20 AM [facility] Blood Venous blood specimen / Unknown Venipuncture / Unknown 07/07/2024 6:34 AM EST 07/07/2024 9:05 AM EST us Chris Barlow MD LAB BLOOD ORDERABLES Final Resu lt [facility] [address] [place] [address], [place] [phone] * (ABNORMAL) Urinalysis with reflex microscopic and culture (07/06/2024 10:07 AM EST) Specific Kouts Urine 1.022 1.003 - 1.030 LAB URINALYSIS - AUTOMATED METHOD 07/06/2024 3:05 PM [facility] pH, Urine 5.5 5.0 - 8.0 pH LAB URINALYSIS - AUTOMATED METHOD 07/06/2024 3:05 PM [facility] Leukocytes, Urine Large(A) Negative LAB URINALYSIS - AUTOMATED METHOD 07/06/2024 3:05 PM [facility] Nitrite, Urine Positive(A) Negative LAB URINALYSIS - AUTOMATED METHOD 07/06/2024 3:05 PM [facility] Protein, Urine Negative <=Trace mg/dL LAB URINALYSIS - AUTOMATED METHOD 07/06/2024 3:05 PM [facility] Glucose, Urine Negative Negative mg/dL LAB URINALYSIS - AUTOMATED METHOD 07/06/2024 3:05 PM [facility] Ketones, Urine Negative Negative mg/dL LAB URINALYSIS - AUTOMATED METHOD 07/06/2024 3:05 PM [facility] Urobilinogen , Urine 1.0 0.2 - 1.0 mg/dL LAB URINALYSIS - AUTOMATED METHOD 07/06/2024 3:05 PM [facility] Bilirubin, Urine Negative Negative LAB URINALYSIS - AUTOMATED METHOD 07/06/2024 3:05 PM [facility] Blood, Urine Trace(A) Negative LAB URINALYSIS - AUTOMATED METHOD 07/06/2024 3:05 PM [facility] Urine Urine specimen obtained by clean catch procedure / Unknown 07/06/2024 10:07 AM EST 07/06/2024 2:07 PM EST us Chris Barlow MD LAB URINE ORDERABLES Final Resu lt Performing Organization Address City/[facility]/ZIP Co de Phone Number [facility] [address] [place] [address], [place] [phone] * Jay urine culture tube (07/06/2024 10:07 AM EST) Extra Tube Hold for add-ons. 07/06/2024 4:01 PM [facility] Comment:Auto resulted. Urine Urine specimen obtained by clean catch procedure / Unknown 07/06/2024 10:07 AM EST 07/06/2024 2:09 PM EST us Chris Barlow MD LAB URINE ORDERABLES Final Resu lt Performing Organization Address City/[facility]/ZIP Co de Phone Number [facility] [address] [place] [address], [place] [phone] * (ABNORMAL) Culture urine (07/06/2024 10:07 AM EST) Culture, Urine >100,000 CFU/mL Escherichia coli(A) JUDIE 07/08/2024 8:28 AM EST [facility] Urine Urine specimen obtained by [...] MICROBIOLOGY - GENERAL ALONDRA ROTH Final Result [facility] [address] [place] [address], * Magnesium (07/05/2024 7:00 AM EST) Only the most recent of4 resultswithin the time period is included. 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
--- OUTSIDE RECORDS SUMMARY | 2024-07-23 05:24 | XMS_ITS | Patient Health Record ---
Author Organization [facility] Address [address] [place] [address] Care Team Providers Care Teacher Home Therapy Name Role Phone Ashleigh Grullon MD Primary Care Provider Mukesh Taveras [phone] ALLERGIES Allergen (clinical drug ingredient) Drug/Non Drug [...] bleeding (K29.01) Active confirmed Acute hemorrhagic gastritis (1843316) Problem Diverticulosis of large intestine without perforation or abscess without bleeding (K57.30) Active confirmed Diverticul ar disease of colon (985221870) Problem Iron deficiency anemia (D50.9) Active confirmed Iron deficien cy anemia (49904779) Problem Hiatal hernia (K44.9) Active confirmed Hiatal hernia (53164450) Problem Chronic diarrhea (K52.9) Active confirmed Chronic diarrhea (456172131) Problem Chronic gastritis with bleeding, unspecified gastritis type (K29.51) Active confirmed Chronic antral gastritis with hemorrhage (disorder) (650622838) Problem Gastric ulcer (K25.9) Active confirmed Gastric ulcer (411940772) Problem Gastritis, erosive (K29.60) Active confirmed Erosive gastritis (30403163350714 00) VITAL SIGNS Temperature 96.4 degrees Fahrenheit 08/28/2023 Blood pressure diastolic 00 mm Hg 08/28/2023 Height 63.5 in 08/28/2023 Blood pressure systolic 00 mm Hg 08/28/2023 Weight 150 lbs 08/28/2023 BMI 26.15 kg/m2 08/28/2023 Encounters Encounter Location Date Provider Diagnosis [facility] [address] [place] [address] 08/28/2023 Mukesh Bearden Iron deficiency anem ia [...] OF [place] [address] [place] [address] [phone] [id number] SRINIVASAN ALVARADO Self - patient is the insured [facility] SUPPLEMENTAL PLAN [address] [place] [address] [phone] [id number] SRINIVASAN ALVARADO Self - patient is the insured MEDICAL (GENERAL) HISTORY Medical History History ICD Code Denies MT,DM,CVA,Lung disease,renal dise ase Colonoscopy in 10/2001 with [...]
--- OUTSIDE RECORDS SUMMARY | 2024-07-23 05:24 | XMS_ITS | Encounter Summary ---
Author Organization [facility] Address [address] [place] [address] Care Team Providers Care Principal Trainer Name Role Phone Leonardo García MD Primary Care Provider [phone] Encounter Details Date Type Department Care Team (Late st Contact Info) Description 06/22/2024 Lab Requisition [facility] Main Lab [address] [place] [address] Chris Barlow MD [address] [place] [address] Encounter for other general examination Social History [...] LAB CHEMISTRY METHOD 06/22/2024 9:17 AM EST [facility] Potassium 3.4(L) 3.5 - 5.5 mmol/L LAB CHEMISTRY METHOD 06/22/2024 9:17 AM [facility] Chloride 101 96 - 110 mmol/L LAB CHEMISTRY METHOD 06/22/2024 9:17 AM [facility] CO2 28 21 - 32 mmol/L LAB CHEMISTRY METHOD 06/22/2024 9:17 AM [facility] Anion Gap 8 3 - 11 LAB CHEMISTRY METHOD 06/22/2024 9:17 AM [facility] Glucose 128(H) 70 - 100 mg/dL LAB CHEMISTRY METHOD 06/22/2024 9:17 AM [facility] BUN 14 5 - 25 mg/dL LAB CHEMISTRY METHOD 06/22/2024 9:17 AM [facility] Creatinine 0.60 0.50 - 1.10 mg/dL LAB CHEMISTRY METHOD 06/22/2024 9:17 AM [facility] eGFR 90 >=60 mL/min/1. 73m2 LAB CHEMISTRY METHOD 06/22/2024 9:17 AM [facility] Comment:Calculation based on the??Chronic Kidney Disease Epidemiology Collaboration (CKD-EPI) equation refit??without adjustment for race. BUN/Creatinine Ratio 23.3 LAB CHEMISTRY METHOD 06/22/2024 9:17 AM [facility] Calcium 8.3(L) 8.5 - 10.5 mg/dL LAB CHEMISTRY METHOD 06/22/2024 9:17 AM [facility] Blood Venous blood specimen / Unknown Venipuncture / Unknown 06/22/2024 6:05 AM EST 06/22/2024 8:27 AM EST us Chris Barlow MD LAB BLOOD ORDERABLES Final Resu lt [facility] [address] [place] [address], documented in this encounter Visit Diagnoses Diagnosis Encounter for other general examination documented in this encounter Care Teams Principal Trainer Relationship Specialty Start Date End Date Leonardo García MD [address] [place] [address] PCP - General Internal Medicine 06/30/24 documented as of this encounter
--- OUTSIDE RECORDS SUMMARY | 2024-07-23 05:24 | XMS_ITS | Encounter Summary ---
Author Organization [facility] Address [address] [place] [address] Care Team Providers Care Sql Server Dba Name Role Phone Leonardo García MD Primary Care Provider [phone] Encounter Details Date Type Department Care Team (Late st Contact Info) Description 06/29/2024 Lab Requisition [facility] Main Lab [address] [facility] [place] [address] Chris Barlow MD [address] [place] [address] Encounter for other general examination Social History [...] CBC auto differential (06/29/2024 5:48 AM EST) [facility] WBC 9.9 4.8 - 10.8 K/mcL LAB HEMETOLOGY METHOD 06/29/2024 10:26 AM [facility] RBC 3.60(L) 3.80 - 4.80 M/mcL LAB HEMETOLOGY METHOD 06/29/2024 10:26 AM [facility] Hemoglobin 11.2(L) 11.5 - 16.0 g/dL LAB HEMETOLOGY METHOD 06/29/2024 10:26 AM [facility] Hematocrit 33.3(L) 35.0 - 47.0 % LAB HEMETOLOGY METHOD 06/29/2024 10:26 AM [facility] MCV 93.0 79.0 - 98.0 FL LAB HEMETOLOGY METHOD 06/29/2024 10:26 AM [facility] MCH 31.3 27.0 - 32.0 pcg LAB HEMETOLOGY METHOD 06/29/2024 10:26 AM [facility] MCHC 33.6 32.0 - 37.0 g/dL LAB HEMETOLOGY METHOD 06/29/2024 10:26 AM [facility] RDW 13.8 11.0 - 15.0 % LAB HEMETOLOGY METHOD 06/29/2024 10:26 AM [facility] Platelets 373 130 - 400 K/mcL LAB HEMETOLOGY METHOD 06/29/2024 10:26 AM [facility] MPV 9.4 7.0 - 11.0 FL LAB HEMETOLOGY METHOD 06/29/2024 10:26 AM [facility] NRBC 0.0 <1.0 % LAB HEMETOLOGY METHOD 06/29/2024 10:26 AM [facility] NRBC Absolute 0.00 <0.10 K/mcL LAB HEMETOLOGY METHOD 06/29/2024 10:26 AM [facility] Neutrophils Relative 64.0 % LAB HEMETOLOGY METHOD 06/29/2024 10:26 AM [facility] Lymphocytes Relative 25.2 % LAB HEMETOLOGY METHOD 06/29/2024 10:26 AM [facility] Monocytes Relative 7.8 % LAB HEMETOLOGY METHOD 06/29/2024 10:26 AM [facility] Eosinophils Relative 2.0 % LAB HEMETOLOGY METHOD 06/29/2024 10:26 AM [facility] Basophils Relative 0.4 % LAB HEMETOLOGY METHOD 06/29/2024 10:26 AM [facility] Immature Granulocytes Relative 0.6 % LAB HEMETOLOGY METHOD 06/29/2024 10:26 AM [facility] Neutrophils Absolute 6.31 1.50 - 7.00 K/mcL LAB HEMETOLOGY METHOD 06/29/2024 10:26 AM [facility] Lymphocytes Absolute 2.49 1.00 - 5.00 K/mcL LAB HEMETOLOGY METHOD 06/29/2024 10:26 AM [facility] Monocytes Absolute 0.77 0.20 - 1.00 K/mcL LAB HEMETOLOGY METHOD 06/29/2024 10:26 AM [facility] Eosinophils Absolute 0.20 0.00 - 0.50 K/mcL LAB HEMETOLOGY METHOD 06/29/2024 10:26 AM [facility] Basophils Absolute 0.04 0.00 - 0.20 K/mcL LAB HEMETOLOGY METHOD 06/29/2024 10:26 AM [facility] Immature Granulocytes Absolute 0.06(H) 0.00 - 0.03 K/mcL LAB HEMETOLOGY METHOD 06/29/2024 10:26 AM [facility] Blood Venous blood specimen / Unknown Venipuncture / Unknown 06/29/2024 5:48 AM EST 06/29/2024 8:27 AM EST us Chris Barlow MD LAB BLOOD ORDERABLES Final Resu lt Performing Organization Address City/[facility]/ZIP Co de Phone Number [facility] [address] [place] [address], [place] [phone] * Magnesium (06/29/2024 5:48 AM EST) Magnesium 2.2 1.9 - 2.6 mg/dL LAB CHEMISTRY METHOD 06/29/2024 10:10 AM EST [facility] Blood Venous blood specimen / Unknown Venipuncture / Unknown 06/29/2024 5:48 AM EST 06/29/2024 8:27 AM EST us Chris Barlow MD LAB BLOOD ORDERABLES Final Resu lt Performing Organization Address City/[facility]/ZIP Co de Phone Number [facility] [address] [place] [address], [place] [phone] * (ABNORMAL) Comprehensive metabolic panel (06/29/2024 5:48 AM EST) Sodium 134 133 - 145 mmol/L LAB CHEMISTRY METHOD 06/29/2024 10:10 AM EST [facility] Potassium 3.7 3.5 - 5.5 mmol/L LAB CHEMISTRY METHOD 06/29/2024 10:10 AM EST [facility] Chloride 100 96 - 110 mmol/L LAB CHEMISTRY METHOD 06/29/2024 10:10 AM EST [facility] CO2 29 21 - 32 mmol/L LAB CHEMISTRY METHOD 06/29/2024 10:10 AM EST [facility] Anion Gap 5 3 - 11 LAB CHEMISTRY METHOD 06/29/2024 10:10 AM EST [facility] Glucose 86 70 - 100 mg/dL LAB CHEMISTRY METHOD 06/29/2024 10:10 AM [facility] BUN 18 5 - 25 mg/dL LAB CHEMISTRY METHOD 06/29/2024 10:10 AM [facility] Creatinine 0.66 0.50 - 1.10 mg/dL LAB CHEMISTRY METHOD 06/29/2024 10:10 AM [facility] eGFR 88 >=60 mL/min/1. 73m2 LAB CHEMISTRY METHOD 06/29/2024 10:10 AM [facility] Comment:Calculation based on the??Chronic Kidney Disease Epidemiology Collaboration (CKD-EPI) equation refit??without adjustment for race. BUN/Creatinine Ratio 27.3 LAB CHEMISTRY METHOD 06/29/2024 10:10 AM [facility] Calcium 8.9 8.5 - 10.5 mg/dL LAB CHEMISTRY METHOD 06/29/2024 10:10 AM [facility] AST (SGOT) 36 10 - 42 unit/L LAB CHEMISTRY METHOD 06/29/2024 10:10 AM [facility] ALT (SGPT) 69(H) 10 - 60 unit/L LAB CHEMISTRY METHOD 06/29/2024 10:10 AM [facility] Alkaline Phosphatase 141(H) 42 - 121 unit/L LAB CHEMISTRY METHOD 06/29/2024 10:10 AM [facility] Total Protein 5.9(L) 6.0 - 8.0 g/dL LAB CHEMISTRY METHOD 06/29/2024 10:10 AM [facility] Albumin 3.2 3.2 - 5.0 g/dL LAB CHEMISTRY METHOD 06/29/2024 10:10 AM [facility] Total Bilirubin 0.8 0.0 - 1.4 mg/dL LAB CHEMISTRY METHOD 06/29/2024 10:10 AM [facility] Blood Venous blood specimen / Unknown Venipuncture / Unknown 06/29/2024 5:48 AM EST 06/29/2024 8:27 AM EST us Chris Barlow MD LAB BLOOD ORDERABLES Final Resu lt [facility] ([facility]) [facility] [address] [place] [address], documented in this encounter Visit Diagnoses Diagnosis Encounter for other general examination documented in this encounter Care Teams Sql Server Dba Relationship Specialty Start Date End Date Leonardo García MD [address] [place] [address] PCP - General Internal Medicine 06/30/24 documented as of this encounter
--- OUTSIDE RECORDS SUMMARY | 2024-07-23 05:24 | XMS_ITS ---
Author Organization [facility] Address [address] [place] [address] Care Team Providers Care Assistant Grocery Store Manager Name Role Phone Ashleigh Grullon MD Primary Care Provider UnavailMukesh Mccormick [phone] REASON FOR VISIT follow up after procedure Encounters Encounter Location Date Provider Diagnosis [facility] [address] [place] [address] 04/23/2023 Mukesh Bearden PLAN OF TREATMENT No Information
--- OUTSIDE RECORDS SUMMARY | 2024-07-23 05:24 | XMS_ITS | Encounter Summary ---
Author Organization [facility] Address [address] [place] [address] Care Team Providers Care Crew Dispatcher Name Role Phone Leonardo García MD Primary Care Provider [phone] Encounter Details Date Type Department Care Team (Late st Contact Info) Description 06/23/2024 Lab Requisition [facility] - Main Lab [address] [place] [address] Chris Barlow MD [address] [place] [id number] Encounter for other general examination Social History [...] LAB CHEMISTRY METHOD 06/23/2024 12:17 PM EST [facility] Blood Venous blood specimen / Unknown Venipuncture / Unknown 06/23/2024 5:46 AM EST 06/23/2024 10:54 AM EST us Chris Barlow MD LAB BLOOD ORDERABLES Final Resu lt [facility] [address] [place] [address], [place] [phone] * (ABNORMAL) Basic metabolic panel (06/23/2024 5:46 AM EST) Sodium 137 133 - 145 mmol/L LAB CHEMISTRY METHOD 06/23/2024 12:24 PM [facility] Potassium 3.7 3.5 - 5.5 mmol/L LAB CHEMISTRY METHOD 06/23/2024 12:24 PM [facility] Chloride 100 96 - 110 mmol/L LAB CHEMISTRY METHOD 06/23/2024 12:24 PM [facility] CO2 29 21 - 32 mmol/L LAB CHEMISTRY METHOD 06/23/2024 12:24 PM [facility] Anion Gap 8 3 - 11 LAB CHEMISTRY METHOD 06/23/2024 12:24 PM [facility] Glucose 106(H) 70 - 100 mg/dL LAB CHEMISTRY METHOD 06/23/2024 12:24 PM [facility] BUN 23 5 - 25 mg/dL LAB CHEMISTRY METHOD 06/23/2024 12:24 PM [facility] Creatinine 0.83 0.50 - 1.10 mg/dL LAB CHEMISTRY METHOD 06/23/2024 12:24 PM [facility] eGFR 70 >=60 mL/min/1. 73m2 LAB CHEMISTRY METHOD 06/23/2024 12:24 PM [facility] Comment:Calculation based on the??Chronic Kidney Disease Epidemiology Collaboration (CKD-EPI) equation refit??without adjustment for race. BUN/Creatinine Ratio 27.7 LAB CHEMISTRY METHOD 06/23/2024 12:24 PM EST [facility] Calcium 8.4(L) 8.5 - 10.5 mg/dL LAB CHEMISTRY METHOD 06/23/2024 12:24 PM EST [facility] Blood Venous blood specimen / Unknown Venipuncture / Unknown 06/23/2024 5:46 AM EST 06/23/2024 10:54 AM EST us Chris Barlwo MD LAB BLOOD ORDERABLES Final Resu lt [facility] [address] [place] [address], documented in this encounter Visit Diagnoses Diagnosis Encounter for other general examination documented in this encounter Care Teams Crew Dispatcher Relationship Specialty Start Date End Date Leonardo García MD [address] [place] [id number] PCP - General Internal Medicine 06/30/24 documented as of this encounter
--- OUTSIDE RECORDS SUMMARY | 2024-07-23 05:24 | XMS_ITS | Encounter Summary ---
Author Organization [facility] Address [address] [place] [address] Care Team Providers Care Blending Supervisor Name Role Phone Leonardo García MD Primary Care Provider [phone] Encounter Details Date Type Department Care Team (Late st Contact Info) Description 07/07/2024 Lab Requisition [facility] - Main Lab [address] [facility] [place] [address] Chris Barlow MD [address] [place] [phone] Encounter for other general examination Social History [...] CBC auto differential (07/07/2024 6:34 AM EST) [facility] WBC 6.0 4.8 - 10.8 K/mcL LAB HEMETOLOGY METHOD 07/07/2024 10:40 AM [facility] RBC 3.20(L) 3.80 - 4.80 M/mcL LAB HEMETOLOGY METHOD 07/07/2024 10:40 AM [facility] Hemoglobin 10.1(L) 11.5 - 16.0 g/dL LAB HEMETOLOGY METHOD 07/07/2024 10:40 AM [facility] Hematocrit 30.7(L) 35.0 - 47.0 % LAB HEMETOLOGY METHOD 07/07/2024 10:40 AM [facility] MCV 94.8 79.0 - 98.0 FL LAB HEMETOLOGY METHOD 07/07/2024 10:40 AM [facility] MCH 31.2 27.0 - 32.0 pcg LAB HEMETOLOGY METHOD 07/07/2024 10:40 AM [facility] MCHC 32.9 32.0 - 37.0 g/dL LAB HEMETOLOGY METHOD 07/07/2024 10:40 AM [facility] RDW 14.2 11.0 - 15.0 % LAB HEMETOLOGY METHOD 07/07/2024 10:40 AM [facility] Platelets 415(H) 130 - 400 K/mcL LAB HEMETOLOGY METHOD 07/07/2024 10:40 AM [facility] MPV 9.2 7.0 - 11.0 FL LAB HEMETOLOGY METHOD 07/07/2024 10:40 AM [facility] NRBC 0.0 <1.0 % LAB HEMETOLOGY METHOD 07/07/2024 10:40 AM [facility] NRBC Absolute 0.00 <0.10 K/mcL LAB HEMETOLOGY METHOD 07/07/2024 10:40 AM [facility] Neutrophils Relative 57.2 % LAB HEMETOLOGY METHOD 07/07/2024 10:40 AM [facility] Lymphocytes Relative 25.4 % LAB HEMETOLOGY METHOD 07/07/2024 10:40 AM [facility] Monocytes Relative 12.5 % LAB HEMETOLOGY METHOD 07/07/2024 10:40 AM [facility] Eosinophils Relative 3.8 % LAB HEMETOLOGY METHOD 07/07/2024 10:40 AM [facility] Basophils Relative 0.8 % LAB HEMETOLOGY METHOD 07/07/2024 10:40 AM [facility] Immature Granulocytes Relative 0.3 % LAB HEMETOLOGY METHOD 07/07/2024 10:40 AM [facility] Neutrophils Absolute 3.42 1.50 - 7.00 K/mcL LAB HEMETOLOGY METHOD 07/07/2024 10:40 AM [facility] Lymphocytes Absolute 1.52 1.00 - 5.00 K/mcL LAB HEMETOLOGY METHOD 07/07/2024 10:40 AM [facility] Monocytes Absolute 0.75 0.20 - 1.00 K/mcL LAB HEMETOLOGY METHOD 07/07/2024 10:40 AM [facility] Eosinophils Absolute 0.23 0.00 - 0.50 K/mcL LAB HEMETOLOGY METHOD 07/07/2024 10:40 AM [facility] Basophils Absolute 0.05 0.00 - 0.20 K/mcL LAB HEMETOLOGY METHOD 07/07/2024 10:40 AM [facility] Immature Granulocytes Absolute 0.02 0.00 - 0.03 K/mcL LAB HEMETOLOGY METHOD 07/07/2024 10:40 AM [facility] Blood Venous blood specimen / Unknown Venipuncture / Unknown 07/07/2024 6:34 AM EST 07/07/2024 9:05 AM EST us Chris Barlow MD LAB BLOOD ORDERABLES Final Resu lt [facility] [address] [place] [address], [place] [phone] * Basic metabolic panel (07/07/2024 6:34 AM EST) Sodium 135 133 - 145 mmol/L LAB CHEMISTRY METHOD 07/07/2024 11:20 AM [facility] Potassium 4.2 3.5 - 5.5 mmol/L LAB CHEMISTRY METHOD 07/07/2024 11:20 AM [facility] Chloride 100 96 - 110 mmol/L LAB CHEMISTRY METHOD 07/07/2024 11:20 AM [facility] CO2 28 21 - 32 mmol/L LAB CHEMISTRY METHOD 07/07/2024 11:20 AM [facility] Anion Gap 7 3 - 11 LAB CHEMISTRY METHOD 07/07/2024 11:20 AM [facility] Glucose 92 70 - 100 mg/dL LAB CHEMISTRY METHOD 07/07/2024 11:20 AM [facility] BUN 19 5 - 25 mg/dL LAB CHEMISTRY METHOD 07/07/2024 11:20 AM [facility] Creatinine 0.70 0.50 - 1.10 mg/dL LAB CHEMISTRY METHOD 07/07/2024 11:20 AM [facility] eGFR 86 >=60 mL/min/1. 73m2 LAB CHEMISTRY METHOD 07/07/2024 11:20 AM [facility] Comment:Calculation based on the??Chronic Kidney Disease Epidemiology Collaboration (CKD-EPI) equation refit??without adjustment for race. BUN/Creatinine Ratio 27.1 LAB CHEMISTRY METHOD 07/07/2024 11:20 AM [facility] Calcium 9.0 8.5 - 10.5 mg/dL LAB CHEMISTRY METHOD 07/07/2024 11:20 AM EST [facility] Blood Venous blood specimen / Unknown Venipuncture / Unknown 07/07/2024 6:34 AM EST 07/07/2024 9:05 AM EST us Chris Barlow MD LAB BLOOD ORDERABLES Final Resu lt [facility] [address] [place] [address], documented in this encounter Visit Diagnoses Diagnosis Encounter for other general examination documented in this encounter Care Teams Blending Supervisor Relationship Specialty Start Date End Date Leonardo García MD [address] [place] [phone] PCP - General Internal Medicine 06/30/24 documented as of this encounter
--- OUTSIDE RECORDS SUMMARY | 2024-07-23 05:24 | XMS_ITS | Encounter Summary ---
Author Organization [facility] Address [address] [place] [address] Care Team Providers Care Tick Eradicator Name Role Phone Leonardo García MD Primary Care Provider [phone] Encounter Details Date Type Department Care Team (Late st Contact Info) Description 07/06/2024 Lab Requisition [facility] - Main Lab [address] [facility] [place] [address] Chris Barlow MD [address] [place] [address] Encounter for other general examination Social History [...] Escherichia coli(A) JUDIE 07/08/2024 8:28 AM EST [facility] Urine Urine specimen obtained by [...] MICROBIOLOGY - GENERAL ALLANE GONZALEZ Final Result [facility] [address] [place] [address], * Jay urine culture tube (07/06/2024 10:07 AM EST) Extra Tube Hold for add-ons. 07/06/2024 4:01 PM EST [facility] Comment:Auto resulted. Urine Urine specimen obtained by clean catch procedure / Unknown 07/06/2024 10:07 AM EST 07/06/2024 2:09 PM EST us Chris Barlow MD LAB URINE ORDERABLES Final Resu lt [facility] [address] [place] [address], [place] [phone] * (ABNORMAL) Urinalysis with reflex microscopic and culture (07/06/2024 10:07 AM EST) Specific [place] Urine 1.022 1.003 - 1.030 LAB URINALYSIS - AUTOMATED METHOD 07/06/2024 3:05 PM [facility] pH, Urine 5.5 5.0 - 8.0 pH LAB URINALYSIS - AUTOMATED METHOD 07/06/2024 3:05 PM [facility] Leukocytes, Urine Large(A) Negative LAB URINALYSIS - AUTOMATED METHOD 07/06/2024 3:05 PM [facility] Nitrite, Urine Positive(A) Negative LAB URINALYSIS - AUTOMATED METHOD 07/06/2024 3:05 PM [facility] Protein, Urine Negative <=Trace mg/dL LAB URINALYSIS - AUTOMATED METHOD 07/06/2024 3:05 PM [facility] Glucose, Urine Negative Negative mg/dL LAB URINALYSIS - AUTOMATED METHOD 07/06/2024 3:05 PM [facility] Ketones, Urine Negative Negative mg/dL LAB URINALYSIS - AUTOMATED METHOD 07/06/2024 3:05 PM [facility] Urobilinogen , Urine 1.0 0.2 - 1.0 mg/dL LAB URINALYSIS - AUTOMATED METHOD 07/06/2024 3:05 PM [facility] Bilirubin, Urine Negative Negative LAB URINALYSIS - AUTOMATED METHOD 07/06/2024 3:05 PM EST [facility] Blood, Urine Trace(A) Negative LAB URINALYSIS - AUTOMATED METHOD 07/06/2024 3:05 PM EST [facility] Urine Urine specimen obtained by clean catch procedure / Unknown 07/06/2024 10:07 AM EST 07/06/2024 2:07 PM EST us Chris Barlow MD LAB URINE ORDERABLES Final Resu lt [facility] [address] [place] [address], [place] [phone] documented in this encounter Visit Diagnoses Diagnosis Encounter for other general examination documented in this encounter Care Teams Tick Eradicator Relationship Specialty Start Date End Date Leonardo García MD [address] [place] [id number] PCP - General Internal Medicine 06/30/24 documented as of this encounter
--- OUTSIDE RECORDS SUMMARY | 2024-07-23 05:24 | XMS_ITS | Clinical Summary ---
Author Organization [facility] Address [address] [place] [address] Care Team Providers Care Pathology Secretary/Transcriptionist Name Role Phone Unavailable Primary Care Provider [...]
--- OUTSIDE RECORDS SUMMARY | 2024-07-23 05:24 | XMS_ITS | Encounter Summary ---
Author Organization [facility] Address [address] [place] [address] Care Team Providers Care Carrot Buncher Name Role Phone Unavailable Primary Care Provider Unavailabl e Encounter Details Date Type Department Care Team (Late st Contact Info) Description 03/17/2020 Lab Requisition [facility] [address] [place] [address] Boo Milian PA-C [address] [place] [address] Encounter for laboratory testing for COVID-19 virus [...] DETECTED Not Detected 03/18/2020 5:59 PM EDT [facility] Comment: ADDITIONAL INFORMATION The [employer] COVID-19 RT-PCR Assay is Real-Time Reverse Quality Manager Polymerase Chain Reaction (marketing operations specialist-PCR) for the in vitro qualitative detection of three SARS-Cov-2 target sequences unique to the coronavirus disease 2019 (COVID-19). This is an Emergency Use Authorization (EUA) in vitro diagnostic (IVD) test that has been modified to include the [employer] automated liquid handler. Its analytical performance characteristics have been determined by the panama hat hydraulic press operator and verified by [facility] in a manner consistent with CLIA [...] at the following links: For Healthcare Providers: https://www.fda.gov/media/788960/download For Patients: https://www.fda.gov/media/015949/download TEST LIMITATIONS Positive results are indicative of [...] system. For further details refer to the Lee Silber TaqPath COVID-19 Combo Kit EUA submission (https://www.Workana.gov/media/720381/download). ----- Test performed by [facility], [address] [place], [place] [address] CLIA# [id number] ?[id number] ? Antoine Shah M.D., Ph.D., [facility], Clinical Air Drill Operator Microbiology Nasopharyngeal swab / Unknown 03/17/2020 2:45 PM EDT 03/17/2020 2:45 PM EDT Narrative [facility] - 03/18/2020 5:59 PM EDT Performed at [facility], [address] [place], [place], [place] Lic [address]695, CLIA [id number] Boo Milian PA-C MICROBIOLOGY - NERAL ORDERABLES [facility] [address] [place] [address] documented in this encounter Visit Diagnoses Diagnosis Encounter for laboratory testing for COVID-19 virus documented in this encounter
--- OUTSIDE RECORDS SUMMARY | 2024-07-23 05:24 | XMS_ITS | Encounter Summary ---
Author Organization [facility] Address [address] [place] [address] Care Team Providers Care Envelope Patternmaker Name Role Phone Leonardo García MD Primary Care Provider [phone] Encounter Details Date Type Department Care Team (Late st Contact Info) Description 06/21/2024 Lab Requisition [facility] - Main Lab [address] [facility] [employer] [place] [address] Chris Barlow MD [address] [place] [address] Encounter for other general examination Social History [...] CBC auto differential (06/21/2024 7:13 AM EST) [facility] WBC 8.0 4.8 - 10.8 K/mcL LAB HEMETOLOGY METHOD 06/21/2024 10:[address] [facility] RBC 3.50(L) 3.80 - 4.80 M/mcL LAB HEMETOLOGY METHOD 06/21/2024 10:[address] [facility] Hemoglobin 10.5(L) 11.5 - 16.0 g/dL LAB HEMETOLOGY METHOD 06/21/2024 10:[address] [facility] Hematocrit 30.6(L) 35.0 - 47.0 % LAB HEMETOLOGY METHOD 06/21/2024 10:[address] [facility] MCV 88.7 79.0 - 98.0 FL LAB HEMETOLOGY METHOD 06/21/2024 10:[address] [facility] MCH 30.4 27.0 - 32.0 pcg LAB HEMETOLOGY METHOD 06/21/2024 10:[address] [facility] MCHC 34.3 32.0 - 37.0 g/dL LAB HEMETOLOGY METHOD 06/21/2024 10:[address] [facility] RDW 13.4 11.0 - 15.0 % LAB HEMETOLOGY METHOD 06/21/2024 10:[address] [facility] Platelets 257 130 - 400 K/mcL LAB HEMETOLOGY METHOD 06/21/2024 10:[address] [facility] MPV 9.7 7.0 - 11.0 FL LAB HEMETOLOGY METHOD 06/21/2024 10:[address] [facility] NRBC 0.0 <1.0 % LAB HEMETOLOGY METHOD 06/21/2024 10:[address] [facility] NRBC Absolute 0.00 <0.10 K/mcL LAB HEMETOLOGY METHOD 06/21/2024 10:[address] [facility] Neutrophils Relative 73.2 % LAB HEMETOLOGY METHOD 06/21/2024 10:[address] [facility] Lymphocytes Relative 16.0 % LAB HEMETOLOGY METHOD 06/21/2024 10:[address] [facility] Monocytes Relative 7.3 % LAB HEMETOLOGY METHOD 06/21/2024 10:[address] [facility] Eosinophils Relative 2.3 % LAB HEMETOLOGY METHOD 06/21/2024 10:[address] [facility] Basophils Relative 0.6 % LAB HEMETOLOGY METHOD 06/21/2024 10:[address] [facility] Immature Granulocytes Relative 0.6 % LAB HEMETOLOGY METHOD 06/21/2024 10:[address] [facility] Neutrophils Absolute 5.84 1.50 - 7.00 K/mcL LAB HEMETOLOGY METHOD 06/21/2024 10:[address] [facility] Lymphocytes Absolute 1.28 1.00 - 5.00 K/mcL LAB HEMETOLOGY METHOD 06/21/2024 10:[address] [facility] Monocytes Absolute 0.58 0.20 - 1.00 K/mcL LAB HEMETOLOGY METHOD 06/21/2024 10:[address] [facility] Eosinophils Absolute 0.18 0.00 - 0.50 K/mcL LAB HEMETOLOGY METHOD 06/21/2024 10:[address] [facility] Basophils Absolute 0.05 0.00 - 0.20 K/mcL LAB HEMETOLOGY METHOD 06/21/2024 10:[address] [facility] Immature Granulocytes Absolute 0.05(H) 0.00 - 0.03 K/mcL LAB HEMETOLOGY METHOD 06/21/2024 10:[address] [facility] Blood Venous blood specimen / Unknown Venipuncture / Unknown 06/21/2024 7:13 AM EST 06/21/2024 10:03 AM EST Chris Barlow MD LAB BLOOD ORDERABLES Final Resu lt Performing Organization Address [facility]/ZIP Co de Phone Number [facility] [address] [place] [address], [place] [phone] * (ABNORMAL) Magnesium (06/21/2024 7:13 AM EST) Magnesium 1.7(L) 1.9 - 2.6 mg/dL LAB CHEMISTRY METHOD 06/21/2024 11:21 AM EST [facility] Blood Venous blood specimen / Unknown Venipuncture / Unknown 06/21/2024 7:13 AM EST 06/21/2024 10:03 AM EST Chris Barlow MD LAB BLOOD ORDERABLES Final Resu lt Performing Organization Address [facility]/ZIP Co de Phone Number [facility] [address] [place] [address], [place] [phone] * (ABNORMAL) Comprehensive metabolic panel (06/21/2024 7:13 AM EST) Pathologist [facility] Sodium 138 133 - 145 mmol/L LAB CHEMISTRY METHOD 06/21/2024 11:[address] [facility] Potassium 2.8(LL) 3.5 - 5.5 mmol/L LAB CHEMISTRY METHOD 06/21/2024 11:50 AM EST [facility] Chloride 103 96 - 110 mmol/L LAB CHEMISTRY METHOD 06/21/2024 11:[address] [facility] CO2 30 21 - 32 mmol/L LAB CHEMISTRY METHOD 06/21/2024 11:[address] [facility] Anion Gap 5 3 - 11 LAB CHEMISTRY METHOD 06/21/2024 11:[address] [facility] Glucose 109(H) 70 - 100 mg/dL LAB CHEMISTRY METHOD 06/21/2024 11:[address] [facility] BUN 8 5 - 25 mg/dL LAB CHEMISTRY METHOD 06/21/2024 11:[address] [facility] Creatinine 0.62 0.50 - 1.10 mg/dL LAB CHEMISTRY METHOD 06/21/2024 11:[address] [facility] eGFR 89 >=60 mL/min/1. 73m2 LAB CHEMISTRY METHOD 06/21/2024 11:[address] [facility] Comment:Calculation based on the??Chronic Kidney Disease Epidemiology Collaboration (CKD-EPI) equation refit??without adjustment for race. BUN/Creatinine Ratio 12.9 LAB CHEMISTRY METHOD 06/21/2024 11:[address] [facility] Calcium 8.4(L) 8.5 - 10.5 mg/dL LAB CHEMISTRY METHOD 06/21/2024 11:[address] [facility] AST (SGOT) 71(H) 10 - 42 unit/L LAB CHEMISTRY METHOD 06/21/2024 11:[address] [facility] ALT (SGPT) 46 10 - 60 unit/L LAB CHEMISTRY METHOD 06/21/2024 11:[address] [facility] Alkaline Phosphatase 95 42 - 121 unit/L LAB CHEMISTRY METHOD 06/21/2024 11:[address] [facility] Total Protein 5.6(L) 6.0 - 8.0 g/dL LAB CHEMISTRY METHOD 06/21/2024 11:[address] [facility] Albumin 2.9(L) 3.2 - 5.0 g/dL LAB CHEMISTRY METHOD 06/21/2024 11:[address] [facility] Total Bilirubin 0.7 0.0 - 1.4 mg/dL LAB CHEMISTRY METHOD 06/21/2024 11:[address] [facility] Blood Venous blood specimen / Unknown Venipuncture / Unknown 06/21/2024 7:13 AM EST 06/21/2024 10:03 AM EST us Chris Barlow MD LAB BLOOD ORDERABLES Final Resu lt Performing Organization Address City/State/[facility] Co de Phone Number [facility] [address] [place] [address], documented in this encounter Visit Diagnoses Diagnosis Encounter for other general examination documented in this encounter Care Teams Envelope Patternmaker Relationship Specialty Start Date End Date Leonardo García MD [address] [place] [id number] PCP - General Internal Medicine 06/30/24 documented as of this encounter
--- OUTSIDE RECORDS SUMMARY | 2024-07-23 05:24 | XMS_ITS | Clinical Summary ---
Author Organization [facility] Address [address] [place] [address] Care Team Providers Care Product Safety Technical Assistant Name Role Phone Ashleigh Grullon MD Primary Care Provider [phone] Allergies Active Allergy Reactions Criticality Noted Date Comments Ampicillin Anaphylaxis High 08/15/2017 Chloramphenicol Anaphylaxis High 08/15/2017 [employer] 08/30/2017 Tape Rash Medium 08/30/2017 Paper tape, [...] MORNING AND IN THE EVENING 0 Active [place]-3 Fatty Acids (OMEGA-3 FISH OIL PO) Take [...] Immunizations Name Administration Dates Next Due Covid-19 (Adlogix) Dilution Required 05/11/2021,0 08/04/2020,07/14/2020 Social History Tobacco [...] this topic Medical Devices Implanted Type Area Steel Post Installer Device Identifier Shelf Expiration Date Model / Serial / Lot Screw 6.5 X 45.Mm - [id number] - [id number] Implanted:Qty : 1 on 08/30/2017 by Emeka Lopez MD at [facility] Posterior: Spine Lumbar [employer] 1067.1645 / / 6.5 X 50mm Screw Modular Creo Amp - [id number] - [id number] Implanted:Qty : 3 on 08/30/2017 by Emeka Lopez MD at [facility] Posterior: Spine Lumbar [employer] 1067.1650 / / 5.5 Polyaxial Tulip Threaded Creo Amp - [id number] - [id number] Implanted:Qty : 4 on 08/30/2017 by Emeka Lopez MD at [facility] Posterior: Spine Lumbar [employer] 1119.0110 / / 5.5 Threaded Locking Cap Creo - [id number] - [id number] Implanted:Qty : 4 on 08/30/2017 by Emeka Lopez MD at [facility] Posterior: Spine Lumbar [facility] 1119.0010 / / 5.5mm Curved Gurpreet Titanium Alloy 40mm Length - [id number] - [id number] Implanted:Qty : 2 on 08/30/2017 by Emeka Lopez MD at [facility] Posterior: Spine Lumbar [facility] 1119.7040 / / Lp Hex Screw 6.5x20mm Stry-Howm 7141-9812-124 457 - [id number] Implanted:Qty : 1 on 02/16/2022 by Ottoniel Wells MD at [facility] Left: Hip [facility] [id number] 11/23/2026 0607-1075 / / [id number] Hip Insrt X3 Trident 0d 36mm E Stry-Howm 294-80-60h-20 0921 - [id number] Implanted:Qty : 1 on 02/16/2022 by Ottoniel Wells MD at [facility] Left: Hip [employer] [id number] 09/24/2025 623-10-36 E / / [id number] Hip Stm Parveen 127 #2 30 124 Stry-Howm 8115-3483q-51 7932 - [id number] Implanted:Qty : 1 on 02/16/2022 by Ottoniel Wells MD at [facility] Left: Hip [employer] [id number] 10/21/2026 5122-7775 D / / [id number] Plug Bone Sm Stry-Howm 1993-5-639-14 3871 - [id number] Implanted:Qty : 1 on 02/16/2022 by Ottoniel Wells MD at [facility] Left: Hip [employer] [facility] [id number] 11/16/2026 6215-5-00 1 / / [id number] Hip Dist Spacer Ostnc Univ #8 Stry-Howm 0852-4097-224 590 - [id number] Implanted:Qty : 1 on 02/16/2022 by Ottoniel Wells MD at [facility] Left: Hip [facility] [facility] [id number] 01/19/2027 6514-5913 / / [id number] Hip Head Delta [employer] 36mm-2.5 Stry-Howm 1498-4-905-54 9191 - [id number] Implanted:Qty : 1 on 02/16/2022 by Ottoniel Wells MD at [facility] Left: Hip [facility] [facility] [id number] 11/10/2026 6570-0-43 6 / / [id number] Cement Bone Surg Simplex Radiopq Stry-Howm 5969-4-084-11 4092 - [id number] Implanted:Qty : 1 on 02/16/2022 by Ottoniel Wells MD at [facility] Left: Hip [facility] [id number] 05/03/2023 6190-06-04 0 / / [id number] Cement Bone Surg Simplex Radiopq Stry-Howm 2017-4-628-11 4092 - [id number] Implanted:Qty : 1 on 02/16/2022 by Ottoniel Wells MD at [facility] Left: Hip [facility] [facility] [id number] 05/03/2023 6190-06-04 0 / / [id number] Lp Hex Screw 6.5x30mm Stry-Howm 6872-7226-567 478 - [id number] Implanted:Qty : 1 on 02/16/2022 by Ottoniel Wells MD at [facility] Left: Hip [facility] [facility] [id number] 12/15/2026 1340-1862 / / [id number] Tritanium Cluster Hole Shell 52mm Stry-Howm 777-52-41m-77 0473 - [id number] Implanted:Qty : 1 on 02/16/2022 by Ottoniel Wells MD at [facility] Left: Hip [facility] [id number] 09/28/2026 702-04-52 E / / [id number] Advance Directives For more information, please contact: [phone] Documents on File Type Date Recorded Patient Public Service Director Expl anation Advance Directive and Living Will [...] way: discussion with patient . Care Teams Product Safety Technical Assistant Relationship Specialty Start Date End Date Cichon, Ashleigh, MD [address] [place] [address] PCP - General Trace Clerk 01/02/22
[2024-07-23 05:54] LABS: Basophils Percent Auto 0.5 % (0-2); Eosinophils Absolute Auto 0.3 X10*3/uL (0.0-0.4); Eosinophils Percent Auto 5.2 % (0-4); Hematocrit 31.7 % (37.0-47.0); Hemoglobin 10.9 g/dl (12.0-16.0); Imm Gran Abs Auto 0.02 X10*3/uL (0.00-0.03); Imm Gran Pct Auto 0.3 % (0.0-0.4); Lymphocytes Absolute Auto 0.9 X10*3/uL (1.2-4.9); Lymphocytes Percent Auto 15.5 % (20-40); Mean Corpuscular HGB Conc 34.4 g/dl (31.0-35.0); Mean Corpuscular Hemoglobin 31.1 pg (27.0-33.0); Mean Corpuscular Volume 90.6 fL (80.0-98.0); Mean Platelet Volume 9.6 fL (9.4-12.3); Monocytes Absolute Auto 0.4 X10*3/uL (0.1-1.2); Monocytes Percent Auto 7.2 % (2-11); Neutrophils Absolute Auto 4.1 x10*3/uL (2.0-8.3); Neutrophils Percent Auto 71.3 % (45-73); Platelet Count 239 X10*3/uL (160-400); Red Cell Distribution Width 13.7 % (11.0-16.0); White Blood Count 5.8 X10*3/uL (4.8-10.8)
[2024-07-23 06:13] LABS: Alanine Aminotransferase 390 U/L (0-31); Albumin Level 3.3 g/dL (3.5-5.0); Alkaline Phosphatase 625 U/L (39-117); Anion Gap 13 (12-20); Aspartate Amino Transferase 383 U/L (5-31); Bilirubin Total 1.4 mg/dL (0.0-1.0); Blood Urea Nitrogen 14 mg/dL (9-16); Calcium 8.7 mg/dL (8.4-10.2); Carbon Dioxide 24 mmol/L (22-29); Chloride 106 mmol/L (96-108); Estimated Glomerular Filt Rate > 60; Glucose Random 93 mg/dL (60-115); Potassium 3.1 mmol/L (3.3-5.1); Sodium 140 mmol/L (135-145); Total Protein 6.1 g/dL (6.5-8.0)
== END 2024-07-23 05:22 | disposition home or self-care (01) ==
LOC: HO.MMNH2L 05:21
PROVIDERS: Visit Provider Student in an Organized Health Care Education/Training Program
DX: D64.9 Anemia, unspecified (principal)
CPT/HCPCS: 36415; 80053; 85025

== ENCOUNTER 2024-07-24 15:47 | Outpatient (REF) | payer MEDICARE, SELFPAY ==
[2024-07-24 15:57] LABS: MANUAL DIFF FLAG NO
[2024-07-24 16:03] LABS: Basophils Percent Auto 0.4 % (0-2); Eosinophils Absolute Auto 0.3 X10*3/uL (0.0-0.4); Eosinophils Percent Auto 7.4 % (0-4); Hematocrit 34.3 % (37.0-47.0); Hemoglobin 11.8 g/dl (12.0-16.0); Imm Gran Abs Auto 0.02 X10*3/uL (0.00-0.03); Imm Gran Pct Auto 0.4 % (0.0-0.4); Lymphocytes Absolute Auto 1.4 X10*3/uL (1.2-4.9); Lymphocytes Percent Auto 30.4 % (20-40); Mean Corpuscular HGB Conc 34.4 g/dl (31.0-35.0); Mean Corpuscular Hemoglobin 31.1 pg (27.0-33.0); Mean Corpuscular Volume 90.3 fL (80.0-98.0); Mean Platelet Volume 9.7 fL (9.4-12.3); Monocytes Absolute Auto 0.4 X10*3/uL (0.1-1.2); Monocytes Percent Auto 8.1 % (2-11); Neutrophils Absolute Auto 2.4 x10*3/uL (2.0-8.3); Neutrophils Percent Auto 53.3 % (45-73); Platelet Count 265 X10*3/uL (160-400); Red Cell Distribution Width 13.9 % (11.0-16.0); White Blood Count 4.6 X10*3/uL (4.8-10.8)
[2024-07-24 16:09] LABS: INTERNATIONAL NORM RATIO 1.2 (0.9-1.1); Prothrombin Time 13.8 SEC (10.9-12.4)
[2024-07-24 16:21] LABS: Alanine Aminotransferase 845 U/L (0-31); Albumin Level 3.5 g/dL (3.5-5.0); Aspartate Amino Transferase 559 U/L (5-31); Bilirubin Direct 1.5 mg/dL (0.0-0.5); Bilirubin Total 2.7 mg/dL (0.0-1.0); Total Protein 6.7 g/dL (6.5-8.0)
[2024-07-24 16:38] LABS: Alkaline Phosphatase 1041 U/L (39-117)
--- OUTSIDE RECORDS SUMMARY | 2024-07-24 16:45 | XMS_ITS | Encounter Summary ---
Author Organization [facility] Address [address] [place] [address] Care Team Providers Care Sales Process Manager Name Role Phone Leonardo García MD Primary Care Provider [phone] Encounter Details Date Type Department Care Team (Late st Contact Info) Description 06/22/2024 Lab Requisition [facility] - Main Lab [address] [place] [address] Chris Barlow MD [address] [place] [address] Encounter for other general examination Social History [...] LAB CHEMISTRY METHOD 06/22/2024 9:17 AM EST [facility] Potassium 3.4(L) 3.5 - 5.5 mmol/L LAB CHEMISTRY METHOD 06/22/2024 9:17 AM [facility] Chloride 101 96 - 110 mmol/L LAB CHEMISTRY METHOD 06/22/2024 9:17 AM [facility] CO2 28 21 - 32 mmol/L LAB CHEMISTRY METHOD 06/22/2024 9:17 AM [facility] Anion Gap 8 3 - 11 LAB CHEMISTRY METHOD 06/22/2024 9:17 AM [facility] Glucose 128(H) 70 - 100 mg/dL LAB CHEMISTRY METHOD 06/22/2024 9:17 AM [facility] BUN 14 5 - 25 mg/dL LAB CHEMISTRY METHOD 06/22/2024 9:17 AM [facility] Creatinine 0.60 0.50 - 1.10 mg/dL LAB CHEMISTRY METHOD 06/22/2024 9:17 AM [facility] eGFR 90 >=60 mL/min/1. 73m2 LAB CHEMISTRY METHOD 06/22/2024 9:17 AM [facility] Comment:Calculation based on the??Chronic Kidney Disease Epidemiology Collaboration (CKD-EPI) equation refit??without adjustment for race. BUN/Creatinine Ratio 23.3 LAB CHEMISTRY METHOD 06/22/2024 9:17 AM [facility] Calcium 8.3(L) 8.5 - 10.5 mg/dL LAB CHEMISTRY METHOD 06/22/2024 9:17 AM [facility] Blood Venous blood specimen / Unknown Venipuncture / Unknown 06/22/2024 6:05 AM EST 06/22/2024 8:27 AM EST us Chris Barlow MD LAB BLOOD ORDERABLES Final Resu lt [facility] [address] [place] [address], documented in this encounter Visit Diagnoses Diagnosis Encounter for other general examination documented in this encounter Care Teams Sales Process Manager Relationship Specialty Start Date End Date Leonardo García MD [address] [place] [address] PCP - General Internal Medicine 06/30/24 documented as of this encounter
--- OUTSIDE RECORDS SUMMARY | 2024-07-24 16:45 | XMS_ITS | Encounter Summary ---
Author Organization [facility] Address [address] [place] [address] Care Team Providers Care Internal Recruiter Name Role Phone Leonardo García MD Primary Care Provider [phone] Encounter Details Date Type Department Care Team (Late st Contact Info) Description 06/23/2024 Lab Requisition [facility] - Main Lab [address] [place] [address] Chris Barlow MD [address] [place] [address] Encounter for other general examination Social History [...] LAB CHEMISTRY METHOD 06/23/2024 12:17 PM EST [facility] Blood Venous blood specimen / Unknown Venipuncture / Unknown 06/23/2024 5:46 AM EST 06/23/2024 10:54 AM EST us Chris Barlow MD LAB BLOOD ORDERABLES Final Resu lt [facility] [address] [place] [address], [place] [phone] * (ABNORMAL) Basic metabolic panel (06/23/2024 5:46 AM EST) Sodium 137 133 - 145 mmol/L LAB CHEMISTRY METHOD 06/23/2024 12:24 PM [facility] Potassium 3.7 3.5 - 5.5 mmol/L LAB CHEMISTRY METHOD 06/23/2024 12:24 PM [facility] Chloride 100 96 - 110 mmol/L LAB CHEMISTRY METHOD 06/23/2024 12:24 PM [facility] CO2 29 21 - 32 mmol/L LAB CHEMISTRY METHOD 06/23/2024 12:24 PM [facility] Anion Gap 8 3 - 11 LAB CHEMISTRY METHOD 06/23/2024 12:24 PM [facility] Glucose 106(H) 70 - 100 mg/dL LAB CHEMISTRY METHOD 06/23/2024 12:24 PM [facility] BUN 23 5 - 25 mg/dL LAB CHEMISTRY METHOD 06/23/2024 12:24 PM [facility] Creatinine 0.83 0.50 - 1.10 mg/dL LAB CHEMISTRY METHOD 06/23/2024 12:24 PM [facility] eGFR 70 >=60 mL/min/1. 73m2 LAB CHEMISTRY METHOD 06/23/2024 12:24 PM [facility] Comment:Calculation based on the??Chronic Kidney Disease Epidemiology Collaboration (CKD-EPI) equation refit??without adjustment for race. BUN/Creatinine Ratio 27.7 LAB CHEMISTRY METHOD 06/23/2024 12:24 PM EST [facility] Calcium 8.4(L) 8.5 - 10.5 mg/dL LAB CHEMISTRY METHOD 06/23/2024 12:24 PM EST [facility] Blood Venous blood specimen / Unknown Venipuncture / Unknown 06/23/2024 5:46 AM EST 06/23/2024 10:54 AM EST us Chris Barlow MD LAB BLOOD ORDERABLES Final Resu lt [facility] [address] [place] [address], documented in this encounter Visit Diagnoses Diagnosis Encounter for other general examination documented in this encounter Care Teams Internal Recruiter Relationship Specialty Start Date End Date Leonardo García MD [address] [place] [address] PCP - General Internal Medicine 06/30/24 documented as of this encounter
--- OUTSIDE RECORDS SUMMARY | 2024-07-24 16:45 | XMS_ITS ---
Author Organization [facility] Address [address] [place] [address] Care Team Providers Care Patient Services Specialist Name Role Phone Ashleigh Grullon MD Primary Care Provider UnavailMukesh Mccormick [phone] REASON FOR VISIT follow up after procedure Encounters Encounter Location Date Provider Diagnosis [facility] [address] [place] [address] 04/23/2023 Mukesh Bearden PLAN OF TREATMENT No Information
--- OUTSIDE RECORDS SUMMARY | 2024-07-24 16:45 | XMS_ITS | Encounter Summary ---
Author Organization [facility] Address [address] [place] [address] Care Team Providers Care Senior Research Associate Name Role Phone Leonardo García MD Primary Care Provider [phone] Encounter Details Date Type Department Care Team (Late st Contact Info) Description 07/06/[address] [facility] - Main Lab [address] [facility] [place] [address] Chris Barlow MD [address] [place] [address] Encounter for other general examination Social History [...] Escherichia coli(A) JUDIE 07/08/2024 8:28 AM EST [facility] Urine Urine specimen obtained by [...] MICROBIOLOGY - GENERAL ALLANE GONZALEZ Final Result [facility] [address] [place] [address], * Jay urine culture tube (07/06/2024 10:07 AM EST) Extra Tube Hold for add-ons. 07/06/2024 4:01 PM EST [facility] Comment:Auto resulted. Urine Urine specimen obtained by clean catch procedure / Unknown 07/06/2024 10:07 AM EST 07/06/2024 2:09 PM EST us Chris Barlow MD LAB URINE ORDERABLES Final Resu lt [facility] [address] [place] [address], [place] [phone] * (ABNORMAL) Urinalysis with reflex microscopic and culture (07/06/2024 10:07 AM EST) Specific [place] Urine 1.022 1.003 - 1.030 LAB URINALYSIS [...] - AUTOMATED METHOD 07/06/2024 3:05 PM EST [facility] Blood, Urine Trace(A) Negative LAB URINALYSIS - AUTOMATED METHOD 07/06/2024 3:05 PM EST [facility] Urine Urine specimen obtained by clean catch procedure / Unknown 07/06/2024 10:07 AM EST 07/06/2024 2:07 PM EST us Chris Barlow MD LAB URINE ORDERABLES Final Resu lt [facility] [address] [place] [address], [place] [phone] documented in this encounter Visit Diagnoses Diagnosis Encounter for other general examination documented in this encounter Care Teams Senior Research Associate Relationship Specialty Start Date End Date Leonardo García MD [address] [place] [address] PCP - General Internal Medicine 06/30/24 documented as of this encounter
--- OUTSIDE RECORDS SUMMARY | 2024-07-24 16:45 | XMS_ITS | Encounter Summary ---
Author Organization [facility] Address [address] [place] [address] Care Team Providers Care Lockstitch Back Maker Name Role Phone Leonardo García MD Primary Care Provider [phone] Encounter Details Date Type Department Care Team (Late st Contact Info) Description 06/21/2024 Lab Requisition [facility] - Main Lab [address] [facility] [place] [address] Chris Barlow MD [address] [place] [address] Encounter for other general examination Social History [...] CBC auto differential (06/21/2024 7:13 AM EST) [facility] [address] WBC 8.0 4.8 - 10.8 K/mcL LAB HEMETOLOGY METHOD 06/21/2024 10:55 AM [facility] RBC 3.50(L) 3.80 - 4.80 M/mcL LAB HEMETOLOGY METHOD 06/21/2024 10:55 AM [facility] Hemoglobin 10.5(L) 11.5 - 16.0 g/dL LAB HEMETOLOGY METHOD 06/21/2024 10:55 AM [facility] Hematocrit 30.6(L) 35.0 - 47.0 % LAB HEMETOLOGY METHOD 06/21/2024 10:55 AM [facility] MCV 88.7 79.0 - 98.0 FL LAB HEMETOLOGY METHOD 06/21/2024 10:55 AM [facility] MCH 30.4 27.0 - 32.0 pcg LAB HEMETOLOGY METHOD 06/21/2024 10:55 AM [facility] MCHC 34.3 32.0 - 37.0 g/dL LAB HEMETOLOGY METHOD 06/21/2024 10:55 AM [facility] RDW 13.4 11.0 - 15.0 % LAB HEMETOLOGY METHOD 06/21/2024 10:55 AM [facility] Platelets 257 130 - 400 K/mcL LAB HEMETOLOGY METHOD 06/21/2024 10:55 AM [facility] MPV 9.7 7.0 - 11.0 FL LAB HEMETOLOGY METHOD 06/21/2024 10:55 AM [facility] NRBC 0.0 <1.0 % LAB HEMETOLOGY METHOD 06/21/2024 10:55 AM [facility] NRBC Absolute 0.00 <0.10 K/mcL LAB HEMETOLOGY METHOD 06/21/2024 10:55 AM [facility] Neutrophils Relative 73.2 % LAB HEMETOLOGY METHOD 06/21/2024 10:55 AM [facility] Lymphocytes Relative 16.0 % LAB HEMETOLOGY METHOD 06/21/2024 10:55 AM [facility] Monocytes Relative 7.3 % LAB HEMETOLOGY METHOD 06/21/2024 10:55 AM [facility] Eosinophils Relative 2.3 % LAB HEMETOLOGY METHOD 06/21/2024 10:55 AM [facility] Basophils Relative 0.6 % LAB HEMETOLOGY METHOD 06/21/2024 10:55 AM [facility] Immature Granulocytes Relative 0.6 % LAB HEMETOLOGY METHOD 06/21/2024 10:55 AM [facility] Neutrophils Absolute 5.84 1.50 - 7.00 K/mcL LAB HEMETOLOGY METHOD 06/21/2024 10:55 AM [facility] Lymphocytes Absolute 1.28 1.00 - 5.00 K/mcL LAB HEMETOLOGY METHOD 06/21/2024 10:55 AM [facility] Monocytes Absolute 0.58 0.20 - 1.00 K/mcL LAB HEMETOLOGY METHOD 06/21/2024 10:55 AM [facility] Eosinophils Absolute 0.18 0.00 - 0.50 K/mcL LAB HEMETOLOGY METHOD 06/21/2024 10:55 AM [facility] Basophils Absolute 0.05 0.00 - 0.20 K/mcL LAB HEMETOLOGY METHOD 06/21/2024 10:55 AM [facility] Immature Granulocytes Absolute 0.05(H) 0.00 - 0.03 K/mcL LAB HEMETOLOGY METHOD 06/21/2024 10:55 AM [facility] Blood Venous blood specimen / Unknown Venipuncture / Unknown 06/21/2024 7:13 AM EST 06/21/2024 10:03 AM EST Chris Barlow MD LAB BLOOD ORDERABLES Final Resu lt Performing Organization Address [facility]/ZIP Co de Phone Number [facility] [address] [place] [address], [place] [phone] * (ABNORMAL) Magnesium (06/21/2024 7:13 AM EST) Magnesium 1.7(L) 1.9 - 2.6 mg/dL LAB CHEMISTRY METHOD 06/21/2024 11:21 AM EST [facility] Blood Venous blood specimen / Unknown Venipuncture / Unknown 06/21/2024 7:13 AM EST 06/21/2024 10:03 AM EST Chris Barlow MD LAB BLOOD ORDERABLES Final Resu lt Performing Organization Address [facility]/ZIP Co de Phone Number [facility] [address] [place] [address], [place] [phone] * (ABNORMAL) Comprehensive metabolic panel (06/21/2024 7:13 AM EST) Pathologist [facility] Sodium 138 133 - 145 mmol/L LAB CHEMISTRY METHOD 06/21/2024 11:50 AM [facility] Potassium 2.8(LL) 3.5 - 5.5 mmol/L LAB CHEMISTRY METHOD 06/21/2024 11:50 AM EST [facility] Chloride 103 96 - 110 mmol/L LAB CHEMISTRY METHOD 06/21/2024 11:50 AM [facility] CO2 30 21 - 32 mmol/L LAB CHEMISTRY METHOD 06/21/2024 11:50 AM [facility] Anion Gap 5 3 - 11 LAB CHEMISTRY METHOD 06/21/2024 11:50 AM [facility] Glucose 109(H) 70 - 100 mg/dL LAB CHEMISTRY METHOD 06/21/2024 11:50 AM [facility] BUN 8 5 - 25 mg/dL LAB CHEMISTRY METHOD 06/21/2024 11:50 AM [facility] Creatinine 0.62 0.50 - 1.10 mg/dL LAB CHEMISTRY METHOD 06/21/2024 11:50 AM [facility] eGFR 89 >=60 mL/min/1. 73m2 LAB CHEMISTRY METHOD 06/21/2024 11:50 AM [facility] Comment:Calculation based on the??Chronic Kidney Disease Epidemiology Collaboration (CKD-EPI) equation refit??without adjustment for race. BUN/Creatinine Ratio 12.9 LAB CHEMISTRY METHOD 06/21/2024 11:50 AM [facility] Calcium 8.4(L) 8.5 - 10.5 mg/dL LAB CHEMISTRY METHOD 06/21/2024 11:50 AM [facility] AST (SGOT) 71(H) 10 - 42 unit/L LAB CHEMISTRY METHOD 06/21/2024 11:50 AM [facility] ALT (SGPT) 46 10 - 60 unit/L LAB CHEMISTRY METHOD 06/21/2024 11:50 AM [facility] Alkaline Phosphatase 95 42 - 121 unit/L LAB CHEMISTRY METHOD 06/21/2024 11:50 AM [facility] Total Protein 5.6(L) 6.0 - 8.0 g/dL LAB CHEMISTRY METHOD 06/21/2024 11:50 AM [facility] Albumin 2.9(L) 3.2 - 5.0 g/dL LAB CHEMISTRY METHOD 06/21/2024 11:50 AM [facility] Total Bilirubin 0.7 0.0 - 1.4 mg/dL LAB CHEMISTRY METHOD 06/21/2024 11:50 AM [facility] Blood Venous blood specimen / Unknown Venipuncture / Unknown 06/21/2024 7:13 AM EST 06/21/2024 10:03 AM EST us Chris Barlow MD LAB BLOOD ORDERABLES Final Resu lt Performing Organization Address City/State/[facility] Co de Phone Number [facility] [address] [place] [address], documented in this encounter Visit Diagnoses Diagnosis Encounter for other general examination documented in this encounter Care Teams Lockstitch Back Maker Relationship Specialty Start Date End Date Leonardo García MD [address] [place] [address] PCP - General Internal Medicine 06/30/24 documented as of this encounter
--- OUTSIDE RECORDS SUMMARY | 2024-07-24 16:45 | XMS_ITS | Data Portability ---
Author Organization [facility] Home Service Address [address] [place] [address] Assessment Encounter Date Assessment Date Assessment LastModified by Organization Details LastModified Time 09/07/2021 09/07/2021 The patient denies recent falls or recurrent falls. Denies instability, weakness, abnormal gait, or difficulties with movement. The patient wears correct, supportive shoes and is not otherwise severely visually impaired. The patient is full weight bearing and if using the assistance of a cane or walker feels supported and stable with the use of such devices. All medical conditions have been taken into account that may pose a risk for the patient for falls. Home ernst, carpets and/or rugs do not pose a challenge for the patient. The patient has been educated about the use of vitamin D supplementation for bone health and prevention of hypotensive episodes that may increase risk for fall. All question and concerns were answered to the patient's satisfaction. [email or web address] Not available 09/07/2021 11:24:10 Plan of Treatment Reminders Order Date Submit Date Provider Last Modified By Organization Details Last Modified Time Details Appointments None recorded. Lab lipid panel, blood 2020 [facility], [address] [place] [address], [place], [address], 13:17:16 CMP, serum or plasma 2020 [facility], [address] [place] [address], [place], [address], 13:17:16 CBC w/ auto diff 2020 [facility], [address] [place] [address], [place], [address], 1 13:17:16 CMP, serum or plasma 2019 [facility], [address] [place] [address], [place], [address], 0 15:24:12 CBC w/ auto diff 2019 [facility], [address] [place] [address], [place], [address], 0 15:24:12 CMP, serum or plasma 2019 [facility] Not available 0 16:01:10 Referral None recorded. Procedures None recorded. Surgeries None recorded. Imaging None recorded. Medication Orders celecoxib 200 mg capsule 2021 022 [facility] #[id number], [address], [place], [id number], 2 11:37:31 metronidaz ole 0.75 % topical cream 2021 [facility] #[id number], [address], [place], [id number], 2 11:29:27 hydrochlor othiazide 25 mg tablet 2021 022 [facility] #[id number], [address], [place], [id number], 2 11:31:03 hydrochlor othiazide 25 mg tablet 2019 [facility] #[id number], [address], [place], [id number], 0 10:39:17 Patient TargetsNo targets recorded. Patient Instructions Encounter Date Encounter Id Patient Instructions Last Modified By Organization Details Last Modified Time 03/12/2020 [id number] rhythm strip, EKG* VON Not available 03/12/2020 17:29:18 Reason for Referral None Reported. Results Created Date Observation Date Name Description Value Unit Range Abnormal Flag Note LastModifiedBy Organization Detail LastModifiedTime 03/12/20 20 03/12/2020 rhyth m strip , EKG* No observ ation record ed. [facility] [address] [facility], [place], [address], 03/16/2020 09:55:12 09/02/19 21 08/31/2020 MAMMO , scree andres, digit al, bilat eral No observ ation record ed. [address] [place], [address], 09/01/2020 14:06:45 01/04/20 21 01/03/2021 XR, knee No observ ation record ed. [facility] [address] [place], [address], 01/03/2021 16:03:47 09/06/19 22 09/02/2021 MAMMO , scree andres, digit al, bilat eral No observ ation record ed. [address] [place], [address], 09/05/2021 12:30:19 Result Notes None recorded. Problems Name Problem SNOMED Code Status Onset Date Resolution Date Notes Provider Name and Address Organization Details Recorded Time Essential hypertensi on 96131175 Active 2017 Not Available [facility] 0 11:57:35 Hyperchole sterolemia 53029971 Active 2017 Not Available [facility] 0 11:57:35 Gastric reflux 096448396 Active 2017 Not Available [facility] 0 11:57:35 Degenerati on of interverte bral disc 15004777 Active 2017 Not Available [facility] 0 11:57:35 Insomnia 181940451 Active 2018 Not Available [facility] 0 11:57:35 Kamran 739267855 Active [address] [place], [address], [facility] 2 11:27:44 Problem Notes None recorded. Procedures Surgical History Date Name Laterality Status Provider Name and Address Organization Details Recorded Time 018 Most Recent Mammogram completed Hamida Pinedo [facility] 05/06/2019 09:57:25 018 laminectomy completed Brigette Cates NP, S [address] [place] [address], [address], [facility] 05/01/2018 14:57:46 014 Colonoscopy completed [facility] 04/30/2018 14:53:24 Cataract Surgery completed [facility] 04/30/2018 14:51:58 complete repair of rotator cuff completed [facility] 04/30/2018 14:52:29 Appendectomy completed Brigette grullon NP, S [address] [place] [address], [address], [facility] 04/30/2018 16:37:33 tonsillectomy completed Brigette menendez NP, S [address] [place] [address], [address], [facility] 04/30/2018 16:38:54 Imaging Results Imaging Date Name Status LastModified by Organiz ation Details LastModified Time 03/12/2020 rhythm strip, EKG* [facility] [address] [facility], [place], [address], 03/16/2020 09:55:12 08/31/2020 MAMMO, screening, digital, bilateral completed rtba [facility] [address] [place] [address] [place], [address], 09/01/2020 14:06:45 01/03/2021 XR, knee completed [email or web address] [facility] [address] [facility], [place], [address], 01/03/2021 16:03:47 09/02/2021 MAMMO, screening, digital, bilateral completed [email or web address] [facility] [address] [place], [address], 09/05/2021 12:30:19 Procedure Notes None recorded. Medical Equipment None Reported. Allergies Allergen ID Allergen Name Allergen Category Reaction Reaction Severity Criticality Documentation Date Start Date Code Code System Note Provider Name and Address Organization Details Recorded Time 2553 ampicilli n medicatio n Not available Not available Not available 04/30/2018 733 RxNorm Claire valencia [facility] 8 14:43:03 2554 tetracycl ine medicatio n Not available Not available Not available 04/30/2018 38328 RxNorm Claire valencia [facility] 8 14:43:18 2555 Chloromyc etin medicatio n Not available Not available Not available 04/30/2018 73117 8 RxNorm Claire Tovar [facility] 8 14:51:28 3665 adhesive tape environme nt,medica tion rash Not available Not available 06/10/2019 [id number] UNK Hamida Mahmoodaugustine [facility] 0 10:05:05 Medications Name Sig Start Date Stop Date Status Note LastModified by Organization Details LastModified Time losartan potassium 25 mg tabs 02/16 completed Not Available Not Available Not Available lovastatin 40 mg tabs 02/16 completed Not Available Not Available Not Available celecoxib 200 mg capsule TAKE 1 CAPSULE BY MOUTH EVERY DAY WITH MEALS active Not Available Not Available No t Available methocarbam ol 500 mg tablet 05/01 completed Not Available Not Available Not Available tizanidine 2 mg tablet 05/01 completed Not Available Not Available Not Available clindamycin HCl 300 mg capsule TAKE 2 CAPSULES BY MOUTH 1 HOUR BEFORE DENTAL APPOINTME NT active Not Available Not Available No t Available lovastatin 40 mg tablet TAKE 1 TABLET BY MOUTH EVERY DAY NO FULL MONTH SUPPLY-NE EDS APPT. CALL OFFICE 09/07 completed Not Available Not Available Not Available tramadol 50 mg tablet 03/12 completed Not Available Not Available Not Available acetaminoph en 500 mg tablet 05/13 completed Not Available Not Available Not Available oxycodone-a cetaminophe n 5 mg-325 mg tablet TK 1 TO 2 TS PO Q 4 TO 6 HOURS PRF PAIN 05/13 completed Not Available Not Available Not Available hydromorpho ne 2 mg tablet TAKE 1 TABLET BY MOUTH EVERY 4 TO 6 HOURS NEEDED FOR PAIN. MAY FILL FOR LESSER QUANTITY 05/13 completed Not Available Not Available Not Available diazepam 2 mg tablet 1 po q hs prn 02/16 completed Not Available Not Available Not Available cephalexin 500 mg capsule 06/10 completed Not Available Not Available Not Available lisinopril 10 mg tablet Take 1 tablet every day by oral route for 90 days. 02/16 completed Not Available Not Available Not Available metronidazo le 0.75 % topical cream APPLY THIN LAYER TOPICALLY TO THE AFFECTED AREA TWICE DAILY IN THE MORNING AND IN THE EVENING active Not Available Not Available No t Available losartan 25 mg tablet TAKE 1 TABLET BY MOUTH EVERY DAY 02/16 completed Not Available Not Available Not Available hydrochloro thiazide 25 mg tablet TAKE 1 TABLET BY MOUTH DAILY 2022 active Not Available Not Available Not Avai lable warfarin 1 mg tablet 05/13 completed Not Available Not Available Not Available magnesium 05/13 completed Not Available Not Available Not Available zinc 05/13 completed Not Available Not Available Not Available naproxen prn 09/07 completed Not Available Not Available Not Available Glucosamine Take 1 tablet twice a day 03/12 completed Not Available Not Available Not Available CoQ10 02/16 completed Not Available Not Available Not Available [place] 3 02/16 completed Not Available Not Available Not Available Advil Cold and Sinus seasonal allergies , PRN active Not Available Not Available No t Available Cromolyn Sodium Nasal prn active Not Available Not Available Not Available Stimulant Laxative Plus 8.6 mg-50 mg tablet 05/13 completed Not Available Not Available Not Available Vitals Date Recorded Body height Body mass index (BMI) Body weight Heart rate Oxygen saturation Oxygen saturation in Arterial blood by Pulse oximetry Systolic blood pressure Diastolic blood pressure Provider Name and Address Organization Details Last Updated DateTime 0 160.02 cm 32.8 kg/m2 76008.6 7 g 78 /min 98 % 98 % 148 mm[Hg] 92 mm[Hg] [facility] 0 10:29:24 Date Recorded Body height Body mass index (BMI) Body weight Heart rate Oxygen saturation Oxygen saturation in Arterial blood by Pulse oximetry Systolic blood pressure Diastolic blood pressure Provider Name and Address Organization Details Last Updated DateTime 0 160.02 cm 32.9 kg/m2 64065.8 2 g 78 /min 97 % 97 % 130 mm[Hg] 82 mm[Hg] [facility] 0 14:26:47 Date Recorded Body height Body mass index (BMI) Body weight Oxygen saturation Oxygen saturation in Arterial blood by Pulse oximetry Heart rate Systolic blood pressure Diastolic blood pressure Provider Name and Address Organization Details Last Updated DateTime 1 160.02 cm 33.4 kg/m2 96864.2 4 g 97 % 97 % 83 /min 158 mm[Hg] 90 mm[Hg] Lianna [facility] 1 11:28:23 Date Recorded Body height Oxygen saturation Oxygen saturation in Arterial blood by Pulse oximetry Heart rate Systolic blood pressure Diastolic blood pressure Provider Name and Address Organization Details Last Updated DateTime 2 160.02 cm 99 % 99 % 74 /min 158 mm[Hg] 90 mm[Hg] Lianna [facility] 2 11:16:48 Social History Question Answer Notes LastModified by Organizat ion Details LastModified Time Tobacco Smoking Status Former Smoker Not Available [facility] 04/06/2020 03:36:23 What Was The Date Of Your Most Recent Tobacco Screening? 05/13/2021 [email or web address] Information not available 05/13/2021 Sex: Unknown Functional Status None recorded. Mental Status None recorded. Family History Nothing Reported. Medical History No medical history recorded. Gynecological History Statement/Question Response Most Recent Mammogram 05/15/2018 Obstetrics History GPAL:G 0 P 0 0 0 0 Immunizations Vaccine Type Date Status Note Provider Nam e and Address Organization Details Recorded Time Influenza, split virus, quadrivalent, preservative 8 completed Hamida valencia [facility] 03/12/2020 14:22:57 Influenza, split virus, quadrivalent, preservative 1 completed Lianna valencia [facility] 05/10/2021 08:45:09 COVID-19, mRNA, LNP-S, PF, 30 mcg/0.3 mL dose 1 completed Lianna valencia [facility] 05/10/2021 08:45:31 COVID-19, mRNA, LNP-S, PF, 30 mcg/0.3 mL dose 1 completed Lianna valencia [facility] 05/10/2021 08:45:46 Td(adult) unspecified formulation 9 completed Lianna valencia [facility] 05/10/2021 08:46:19 Influenza, split virus, quadrivalent, preservative 9 completed Hamida valencia [facility] 03/12/2020 14:22:57 Influenza, split virus, quadrivalent, preservative 0 completed Hamida valencia [facility] 03/12/2020 14:22:57 Past Encounters Encounter ID Performer Location Encounter Start Date Encounter Closed Date Diagnosis/Indication Diagnosis SNOMED-CT Code Diagnosis ICD10 Code Diagnosis Note [id number] Brigette Cates NP, S [facility] [address],[place] [address] 05/01/2018 13:37:32 05/01/2018 15:16:02 Essential hypertension 71322371 I10 Degenerati on of intervertebral disc 19066778 M51.9 S/P laminectom y Hypercholesterolemia 136 85906 E78.00 Decreased hearing 235507 001 H91.93 September CESAR Hannon [facility] Medicine [address] [facility], [place] [address] 11/01/2018 11:36:08 11/01/2018 12:10:37 Essential hypertension 52112114 I10 stable Degenerati on of intervertebral disc 48017597 M51.9 S/P laminectom y Hypercholesterolemia 136 58002 E78.00 taking lovastatin every other day - would really like to get off the med discussed diet for weight loss Insomnia 696052040 G47.0 0 takes a half at bedtime to help her sleep lots of stress Body mass index 30+ - obesity 099290548 Z68.33 discussed diet strategies cutting out sugar - advised she may have withdrawl like sx and cravings for sugar, but that these would eventually subside she could try sugar free alternates , but these may still cause sugar craving and can still cause fat storage via the insulin pathyway discussed restrictiv e eating schedule 12 hours of eating and 12 hours of fasting - ok to have water and tea while fasting [id number] CES[address] [facility] Medicine [address] [facility],[place] [address] 06/10/2019 09:46:55 06/10/2019 10:42:39 Essential hypertension 57011412 I10 mildly elevated d/c hctz start lisinopril 10 mg Degenerati on of intervertebral disc 46774077 M51.9 S/P laminectom y Hypercholesterolemia 136 75460 E78.00 taking lovastatin every other day - would really like to get off the med discussed diet for weight loss Insomnia 187681718 G47.0 0 takes a half at bedtime to help her sleep as needed lots of stress Body mass index 30+ - obesity 700046529 Z68.33 has lost about 10 lbs! has cut back her sugar intake due to her high bs last time Gastric reflux 274000229 K21.9 Hearing loss 26269668 H9 1.93 Advance care planning 71 9490810 Z71.89 HCP - planning to re-do her will/trust and update HCP [id number] [facility] Medicine [address] [facility], [place] [address] 02/17/2020 10:22:21 02/17/2020 11:04:06 Essential hypertension 97471944 I10 will switch off losartan as patient states it makes her thirsty and dry mouth the patient would like to go back on HTCZ, will just monitor her kidney function more frequently Adult heal th examination 586616267 Z00.00 BP is elevated has been since switch from HTCZ to losartan will switch back and just watch kidneys closer never had issue with kidney function before on it Active or passive immunization 356178321 Z23 has shingle shot, old one long time ago getting flu shot at pharmacy [id number] [facility] Internal Medicine [address] [facility] [address],[place] [address] 03/12/2020 14:10:33 03/12/2020 15:07:44 Pre-surgery evaluation 650630691 Z01.818 based on exam and history will clear for surgery pending labs and EKG will fax EKG separately after reading results [id number] [facility] Medicine [address] [facility] [address],[place] [address] 05/18/2020 08:44:16 05/18/2020 10:08:45 Essential hypertension 42392433 I10 BP has been stable on the HTCZ, no side effects CMP looks good as well Osteoarthritis 750168482 M19.90 improvemen t with surgery and PT, if need surgeon will clear out arthritis behind her patella [id number] [facility] Medicine [address] [facility] [address],[place] [address] 05/13/2021 10:59:04 05/13/2021 12:18:39 Essential hypertension 11471450 I10 BP has been stable with other checks and with recheck in office Hypercholesterolemia 136 84549 E78.2 will recheck labsdiscus sed stopping as she has muscle aches with it constantly [id number] [facility] Internal Medicine [address] [facility] [address],[place] [address] 09/07/2021 11:09:39 09/12/2021 09:03:07 Hypercholesterolemia 83111373 E78.2 will recheck labsdiscus sed stopping as she has muscle aches with it constantly Essential hypertension 29023473 I10 BP has been stable with other checks and with recheck in office Degenerati on of intervertebral disc 36612908 M51.06 seeing PT for the next 6 weeks Insomnia 428441126 G47.0 0 stable Rosacea 302591753 L71.8 will trial a course of metronidaz ole cream for use Health Concerns Section Related Observation LastModified by Organization Detai ls LastModified Time None Recorded Concern Status LastModified by Organization Details LastModified Time None Recorded Advance Directives Directive None Recorded Payers Encounter Date Sequence Insurance Name Policy Number Policy Dotson Covered Member ID Dotson Member ID Guarantor Name 02/17/2020 2 [employer] OPTIONS Crystal [place]son [id number] Crytsal Holly 02/17/2020 1 [place] [facility] Crystal G [place]son [id number] Crystal [place] 03/12/2020 2 [employer] - OPTIONS Crystal [place]son [id number] Crystal [place]son 03/12/2020 1 [place] [facility] Crystal G [place] [id number] Crystal [place]son 05/18/2020 2 [employer] OPTIONS Crystal Holly [id number] Crystal [place] 05/18/2020 1 [place] [facility] Crystal G [place] [id number] Crystal [place]son 05/13/2021 2 [employer] OPTIONS Crystal [place]son [id number] Crystal [place]son 05/13/2021 1 MEDICARE [facility]: [facility] Crystal G [place] [id number] Crystal Holly 09/07/2021 2 [employer] - OPTIONS Crystal [place] [id number] Crystal Holly 09/07/2021 1 MEDICARE [facility]: [facility] Crystal G Holly [id number] Crystal Holly Notes Date Note Type Note Provider Name a nd Address Organization Details Recorded Time 0 text/html Medicare Annual Wellness VisitReported bypatient.Diet and Nutrition:discussed vitamin and supplement use; discussed portion control; discussed maintaining calcium balance; discussed diet improvement Fracture Risk:no history of fractures; no recent explained fracture; no sudden unexplained fractures; no previous musculoskeletal injuries Physical Activity:exercises on a regular basis; discussed weightbearing activities; discussed exercise habits Depression Risk:never feels sad, empty, or tearful; no loss of interest in activities; no significant changes in weight; no sleep disturbances or insomnia; no agitation; no loss of energy; no feelings of worthlessness or guilt; no thoughts of suicide; no history of depression; no history of mood disorders Orientation:no disorientation to time; no disorientation to date; no disorientation to place Concentration and Memory:no decreased concentrating ability; no memory lapses or loss; does not forget words Speech/Motor difficulties:no speech difficulties; no difficulty expressing formulated concepts; no difficulty with fine manipulative tasks; no difficulty writing/copying; no slowed reaction time; does not knock things over when trying to pick them up Hearing:wears hearing aids Vision:no vision problems Activities of Daily Living:able to bathe with limited or no assistance; able to contol urination and bowels; able to dress with limited or no assistance; able to feed self with limited or no assistance; able to get out of chair or bed with limited or no assistance; able to groom with limited or no assistance; able to toilet with limited or no assistance Instrumental Activities of Daily Living:able to do house work with limited or no assistance; able to grocery shop with limited or no assistance; able to manage medications with limited or no assistance; able to manage money with limited or no assistance; able to prepare meals with limited or no assistance; able to use the phone with limited or no assistance Falls Risk Assessment:fall(s) in the past year 1 Home Safety:no unsafe ernst hazzards; no unsafe stairs; no unsafe gas appliances; working smoke/CO detectors; wears protective head gear for biking/high velocity; use of seatbelts; no vision or hearing loss while driving; no fire arms; has hand bars in the bathroom/shower; good lighting in the home [address]ICKSON STONE [address] [place] [address], [address], [facility] 02/17/2020 10:47:42 0 text/html Pre-OpReported bypatient.Surgery to be Performed:left knee arthroscopy Dr[facility] Risk Factorsno cognitive impairment; no functional impairment; no malnutrition; no frailty; able to climb a flight of stairs (exercise capacity>4 METS); no obstructive sleep apnea; non-smoker; no alcohol misuse; no illicit drug use; no chronic cardiopulmonary condition; not obese Anesthesia hx:no hx of anesthesia complications; no allergy to anesthetic agents; no family history of anesthesia complications Functional Ability:able to walk up stairs; able to perform heavy work around the house; no difficulty walking up hills; able to walk 4 mph Post-Op Support:adequate assistance at home [address] [place], [address], [facility] 03/12/2020 15:56:29 0 text/html 3 mo fu the patient reports that the operation which great the patient has two tears fixed, did find a lot of arthritis behind the knee the patient is doing well with PT, if she has any concerns about her knee the surgeon told her the could go back in and clean it out for now patient says her knee feels much better no fever, no chills, no sob, no cough, no abd pain, no chest pain, no n/v/d, no sore throat, no fatigue [address] [place], [address], [facility] 05/18/2020 10:08:45 1 text/html medication fu TKR: the patient reports that she has a total knee replacement, right kneedoing excellent, full ROM now, has had fu with ortho and everything is stable HTN: the patient BP is a little elevated todaycheck after 5 minutes in 130/80 in the right arm sittingtends to have white coat in officeother readings at other offices have been excellent HLD: will recheck her cholesterol to see if we can start taking her off of it due to her side effects [address] [place], [address], [facility] 05/13/2021 11:43:58 2 text/html medication f/u fall risk assessment: per A&P low back pain: the patient will start six week of PT for her lumbar back, if no improvement in her low back pain, she will be scheduled for cortisone injectionwas not given her anything for the pain, will start on the tramadol has left over diluadid, for severe painwill trial celobrex HTN: today in the office the patient BP is 130/80 R arm with recheck, ten minutes after with sittingthe patient is doing well on the BP medication with no side effects and no adjustment of their medications needed today at the appointmentroseline-eldon padilla on medicationdenies chest pain, sob, ankle swelling, orthopnea, palpitations all questions and concerns answered today [facility] [address] [place] [address], [place], [address], [facility] 09/07/2021 11:39:36 OBGyn Episode No OBEpisode recorded.
--- OUTSIDE RECORDS SUMMARY | 2024-07-24 16:45 | XMS_ITS | Encounter Summary ---
Author Organization [facility] Address [address] [place] [address] Care Team Providers Care Cosmetician Name Role Phone Leonardo García MD Primary Care Provider Encounter Details Date Type Department Care Team (Late st Contact Info) Description 06/29/2024 Lab Requisition [facility] - Main Lab [address] [facility] [employer] [address] Chris Barlwo MD [address] [place] [id number] Encounter for other general examination Social History [...] K/mcL LAB HEMETOLOGY METHOD 06/29/2024 10:26 AM [facility] RBC 3.60(L) 3.80 - 4.80 M/mcL LAB HEMETOLOGY METHOD 06/29/2024 10:26 AM [facility] Hemoglobin 11.2(L) 11.5 - 16.0 g/dL LAB HEMETOLOGY METHOD 06/29/2024 10:26 AM [facility] Hematocrit 33.3(L) 35.0 - 47.0 % LAB HEMETOLOGY METHOD 06/29/2024 10:26 AM [facility] MCV 93.0 79.0 - 98.0 FL LAB HEMETOLOGY METHOD 06/29/2024 10:26 AM [facility] MCH 31.3 27.0 - 32.0 pcg LAB HEMETOLOGY METHOD 06/29/2024 10:26 AM [facility] MCHC 33.6 32.0 - 37.0 g/dL LAB HEMETOLOGY METHOD 06/29/2024 10:26 AM [facility] RDW 13.8 11.0 - 15.0 % LAB HEMETOLOGY METHOD 06/29/2024 10:26 AM [facility] Platelets 373 130 - 400 K/mcL LAB HEMETOLOGY METHOD 06/29/2024 10:26 AM [facility] MPV 9.4 7.0 - 11.0 FL LAB HEMETOLOGY METHOD 06/29/2024 10:26 AM [facility] NRBC 0.0 <1.0 % LAB HEMETOLOGY METHOD 06/29/2024 10:26 AM [facility] NRBC Absolute 0.00 <0.10 K/mcL LAB HEMETOLOGY METHOD 06/29/2024 10:26 AM [facility] Neutrophils Relative 64.0 % LAB HEMETOLOGY METHOD 06/29/2024 10:26 AM [facility] Lymphocytes Relative 25.2 % LAB HEMETOLOGY METHOD 06/29/2024 10:26 AM [facility] Monocytes Relative 7.8 % LAB HEMETOLOGY METHOD 06/29/2024 10:26 AM [facility] Eosinophils Relative 2.0 % LAB HEMETOLOGY METHOD 06/29/2024 10:26 AM [facility] Basophils Relative 0.4 % LAB HEMETOLOGY METHOD 06/29/2024 10:26 AM [facility] Immature Granulocytes Relative 0.6 % LAB HEMETOLOGY METHOD 06/29/2024 10:26 AM [facility] Neutrophils Absolute 6.31 1.50 - 7.00 K/mcL LAB HEMETOLOGY METHOD 06/29/2024 10:26 AM [facility] Lymphocytes Absolute 2.49 1.00 - 5.00 K/mcL LAB HEMETOLOGY METHOD 06/29/2024 10:26 AM [facility] Monocytes Absolute 0.77 0.20 - 1.00 K/mcL LAB HEMETOLOGY METHOD 06/29/2024 10:26 AM [facility] Eosinophils Absolute 0.20 0.00 - 0.50 K/mcL LAB HEMETOLOGY METHOD 06/29/2024 10:26 AM [facility] Basophils Absolute 0.04 0.00 - 0.20 K/mcL LAB HEMETOLOGY METHOD 06/29/2024 10:26 AM [facility] Immature Granulocytes Absolute 0.06(H) 0.00 - 0.03 K/mcL LAB HEMETOLOGY METHOD 06/29/2024 10:26 AM [facility] Blood Venous blood specimen / Unknown Venipuncture / Unknown 06/29/2024 5:48 AM EST 06/29/2024 8:27 AM EST us Chris Barlow MD LAB BLOOD ORDERABLES Final Resu lt Performing Organization Address City/[facility]/ZIP Co de Phone Number [facility] [address] [place] [address], [place] [phone] * Magnesium (06/29/2024 5:48 AM EST) Magnesium 2.2 1.9 - 2.6 mg/dL LAB CHEMISTRY METHOD 06/29/2024 10:10 AM EST [facility] Blood Venous blood specimen / Unknown Venipuncture / Unknown 06/29/2024 5:48 AM EST 06/29/2024 8:27 AM EST us Chris Barlow MD LAB BLOOD ORDERABLES Final Resu lt Performing Organization Address City/[facility]/ZIP Co de Phone Number [facility] [address] [place] [address], [place] [phone] * (ABNORMAL) Comprehensive metabolic panel (06/29/2024 5:48 AM EST) Sodium 134 133 - 145 mmol/L LAB CHEMISTRY METHOD 06/29/2024 10:10 AM EST [facility] Potassium 3.7 3.5 - 5.5 mmol/L LAB CHEMISTRY METHOD 06/29/2024 10:10 AM EST [facility] Chloride 100 96 - 110 mmol/L LAB CHEMISTRY METHOD 06/29/2024 10:10 AM EST [facility] CO2 29 21 - 32 mmol/L LAB CHEMISTRY METHOD 06/29/2024 10:10 AM EST [facility] Anion Gap 5 3 - 11 LAB CHEMISTRY METHOD 06/29/2024 10:10 AM EST [facility] Glucose 86 70 - 100 mg/dL LAB CHEMISTRY METHOD 06/29/2024 10:10 AM [facility] BUN 18 5 - 25 mg/dL LAB CHEMISTRY METHOD 06/29/2024 10:10 AM [facility] Creatinine 0.66 0.50 - 1.10 mg/dL LAB CHEMISTRY METHOD 06/29/2024 10:10 AM [facility] eGFR 88 >=60 mL/min/1. 73m2 LAB CHEMISTRY METHOD 06/29/2024 10:10 AM [facility] Comment:Calculation based on the??Chronic Kidney Disease Epidemiology Collaboration (CKD-EPI) equation refit??without adjustment for race. BUN/Creatinine Ratio 27.3 LAB CHEMISTRY METHOD 06/29/2024 10:10 AM [facility] Calcium 8.9 8.5 - 10.5 mg/dL LAB CHEMISTRY METHOD 06/29/2024 10:10 AM [facility] AST (SGOT) 36 10 - 42 unit/L LAB CHEMISTRY METHOD 06/29/2024 10:10 AM [facility] ALT (SGPT) 69(H) 10 - 60 unit/L LAB CHEMISTRY METHOD 06/29/2024 10:10 AM [facility] Alkaline Phosphatase 141(H) 42 - 121 unit/L LAB CHEMISTRY METHOD 06/29/2024 10:10 AM [facility] Total Protein 5.9(L) 6.0 - 8.0 g/dL LAB CHEMISTRY METHOD 06/29/2024 10:10 AM [facility] Albumin 3.2 3.2 - 5.0 g/dL LAB CHEMISTRY METHOD 06/29/2024 10:10 AM [facility] Total Bilirubin 0.8 0.0 - 1.4 mg/dL LAB CHEMISTRY METHOD 06/29/2024 10:10 AM [facility] Blood Venous blood specimen / Unknown Venipuncture / Unknown 06/29/2024 5:48 AM EST 06/29/2024 8:27 AM EST us Chris Barlow MD LAB BLOOD ORDERABLES Final Resu lt [facility] [address] [place] [address], documented in this encounter Visit Diagnoses Diagnosis Encounter for other general examination documented in this encounter Care Teams Cosmetician Relationship Specialty Start Date End Date Leonardo García MD [address] [place] [address] PCP - General Internal Medicine 06/30/24 documented as of this encounter
--- OUTSIDE RECORDS SUMMARY | 2024-07-24 16:45 | XMS_ITS ---
Author Organization [facility] Address [address] [place] [address] Care Team Providers Care Adjunct Psychology Professor Name Role Phone Ashleigh Grullon MD Primary Care Provider Mukesh Taveras [phone] ALLERGIES Allergen (clinical drug ingredient) Drug/Non Drug [...] Hiatal hernia (K44.9) Active confirmed Hiatal hernia (22314473) Problem Acute gastritis with bleeding (K29.01) Active confirmed Acute hemorrhagic gastritis (8406042) Problem Chronic gastritis with bleeding, unspecified gastritis type (K29.51) Active confirmed Chronic antral gastritis with hemorrhage (disorder) (978335666) Problem Chronic diarrhea (K52.9) Active confirmed Chronic diarrhea (603711356) VITAL SIGNS BMI 26.15 kg/m2 08/28/2023 Blood pressure systolic 00 mm Hg 08/28/19 24 Blood pressure diastolic 00 mm Hg 024 Height 63.5 in 08/28/2023 Temperature 96.4 degrees Fahrenheit 08/28/19 24 Weight 150 lbs 08/28/2023 Encounters Encounter Location Date Provider Diagnosis [facility] [address] [place] [address] 08/28/2023 Mukesh Bearden Iron deficiency anem ia [...]
--- OUTSIDE RECORDS SUMMARY | 2024-07-24 16:45 | XMS_ITS | Clinical Summary ---
Author Organization [address] Address [address] [place] [phone] Phone Care Team Providers Care Psychology Instructor Name Role Phone Leonardo García MD Primary Care Provider [phone] Encounters Date Type Department Care Team Description 07/07/2024 Lab Requisition [facility] [address] [place] [address] Chris Barlow MD Encounter for other general examination 07/06/2024 Lab Requisition [facility] [address] [place] [address] Chris Barlow MD Encounter for other general examination 07/05/2024 Lab Requisition [facility] [address] [place] [address] Chris Barlow MD Encounter for other general examination 06/29/2024 Lab Requisition [facility] [address] [place] [address] Chris Barlow MD Encounter for other general examination 06/23/2024 Lab Requisition [facility] [address] [place] [address] Chris Barlow MD Encounter for other general examination 06/22/2024 Lab Requisition [facility] [address] [place] [address] Chris Barlow MD Encounter for other general examination 06/21/2024 Lab Requisition [facility] Lab [address] [facility] [place] [place] [address] Chris Barlow MD Encounter for [...] LAMINECTOMY DECOMPRESSION; Surgeon: Emeka Lopez MD; Location: [facility]; Service: Spine; Laterality: Bilateral Posterior; LUMBAR FUSION 08/30/2017 Bilateral Posterior PROCEDURE:LUMBAR FUSION;COMMENT:Procedure: L4 - 5 FUSION SPINE LUMBAR POSTERIOR, INSTRUMENTED ARTHRODESIS; Surgeon: Emeka Lopez MD; Location: [facility]; Service: Spine; Laterality: Bilateral Posterior; AUTOGRAFT/SPINE SURGERY 08/30/2017 Left PROCEDURE:AUTOGRAFT/SPINE SURGERY;COMMENT:Procedure: AUTOGRAFT BONE SPINE; Surgeon: Emeka Lopez MD; Location: [facility]; Service: Spine; Laterality: Left; TOTAL KNEE ARTHROPLASTY 01/03/2021 Left PROCEDURE:TOTAL KNEE ARTHROPLASTY TOTAL HIP ARTHROPLASTY 02/16/2022 Left PROCEDURE:TOTAL HIP ARTHROPLASTY;COMMENT:David escalerae: REPLACEMENT TOTAL HIP; Surgeon: Ottoniel Wells MD; Location: [facility]); Service: Orthopedics; Laterality: [...] this topic Medical Devices Implanted Type Area Grainer Machine Device Identifier Shelf Expiration Date Model / Serial / Lot Cement Bone Surg Simplex Radiopq Stry-Howm [id number] Implanted:Qty: 1 on 02/16/2022 by Ottoniel Wells MD Left: Hip [employer] [id number] 05/03/2023 6191-1-010 / / [id number] Hip Head Delta Biolox 36mm-2.5 Stry-Howm 1946-2-521-549 191 Implanted:Qty: 1 on 02/16/2022 by Ottoniel Wells MD Left: Hip [employer] [id number] 11/10/2026 6570-0-436 / / [id number] Cement Bone Surg Simplex Radiopq Stry-Howm [id number] 092 Implanted:Qty: 1 on 02/16/2022 by Ottoniel Wells MD Left: Hip [employer] [id number] 05/03/2023 6191-1-010 / / [id number] Lp Hex Screw 6.5x30mm Stry-Howm [id number] 78 Implanted:Qty: 1 on 02/16/2022 by Ottoniel Wells MD Left: Hip [employer] [id number] 12/15/2026 2654-9438 / / [id number] Tritanium Cluster Hole Shell 52mm Stry-Howm [id number] Implanted:Qty: 1 on 02/16/2022 by Ottoniel Wells MD Left: Hip [employer] [id number] 09/28/2026 702-04-52E / / [id number] Lp Hex Screw 6.5x20mm Stry-Howm [id number] Implanted:Qty: 1 on 02/16/2022 by Ottoniel Wells MD Left: Hip [employer] [id number] 11/23/2026 6419-7014 / / [id number] Hip Insrt X3 Trident 0d 36mm E Stry-Howm [id number] 921 Implanted:Qty: 1 on 02/16/2022 by Ottoniel Wells MD Left: Hip [employer] [id number] 09/24/2025 623-10-36E / / [id number] Hip Stm Parveen 127 #2 30 124 Stry-Howm [id number] Implanted:Qty: 1 on 02/16/2022 by Ottoniel Wells MD Left: Hip [employer] [id number] 10/21/2026 6057-0230D / / [id number] Plug Bone Sm Stry-Howm [id number] 871 Implanted:Qty: 1 on 02/16/2022 by Ottoniel Wells MD Left: Hip [employer] [id number] 11/16/2026 6215-5-001 / / [id number] Hip Dist Spacer Ost[employer] #8 Stry-How [id number] 90 Implanted:Qty: 1 on 02/16/2022 by Ottoniel Wells MD Left: Hip [employer] [id number] 01/19/2027 0881-9369 / / [id number] Procedures Procedure Name Priority Date/Time Associated Diagnosis [...] K/mcL LAB HEMETOLOGY METHOD 07/07/2024 10:40 AM [facility] RBC 3.20(L) 3.80 - 4.80 M/mcL LAB HEMETOLOGY METHOD 07/07/2024 10:40 AM [facility] Hemoglobin 10.1(L) 11.5 - 16.0 g/dL LAB HEMETOLOGY METHOD 07/07/2024 10:40 AM [facility] Hematocrit 30.7(L) 35.0 - 47.0 % LAB HEMETOLOGY METHOD 07/07/2024 10:40 AM [facility] MCV 94.8 79.0 - 98.0 FL LAB HEMETOLOGY METHOD 07/07/2024 10:40 AM [facility] MCH 31.2 27.0 - 32.0 pcg LAB HEMETOLOGY METHOD 07/07/2024 10:40 AM [facility] MCHC 32.9 32.0 - 37.0 g/dL LAB HEMETOLOGY METHOD 07/07/2024 10:40 AM [facility] RDW 14.2 11.0 - 15.0 % LAB HEMETOLOGY METHOD 07/07/2024 10:40 AM [facility] Platelets 415(H) 130 - 400 K/mcL LAB HEMETOLOGY METHOD 07/07/2024 10:40 AM [facility] MPV 9.2 7.0 - 11.0 FL LAB HEMETOLOGY METHOD 07/07/2024 10:40 AM [facility] NRBC 0.0 <1.0 % LAB HEMETOLOGY METHOD 07/07/2024 10:40 AM [facility] NRBC Absolute 0.00 <0.10 K/mcL LAB HEMETOLOGY METHOD 07/07/2024 10:40 AM [facility] Neutrophils Relative 57.2 % LAB HEMETOLOGY METHOD 07/07/2024 10:40 AM [facility] Lymphocytes Relative 25.4 % LAB HEMETOLOGY METHOD 07/07/2024 10:40 AM [facility] Monocytes Relative 12.5 % LAB HEMETOLOGY METHOD 07/07/2024 10:40 AM [facility] Eosinophils Relative 3.8 % LAB HEMETOLOGY METHOD 07/07/2024 10:40 AM [facility] Basophils Relative 0.8 % LAB HEMETOLOGY METHOD 07/07/2024 10:40 AM [facility] Immature Granulocytes Relative 0.3 % LAB HEMETOLOGY METHOD 07/07/2024 10:40 AM [facility] Neutrophils Absolute 3.42 1.50 - 7.00 K/mcL LAB HEMETOLOGY METHOD 07/07/2024 10:40 AM [facility] Lymphocytes Absolute 1.52 1.00 - 5.00 K/mcL LAB HEMETOLOGY METHOD 07/07/2024 10:40 AM [facility] Monocytes Absolute 0.75 0.20 - 1.00 K/mcL LAB HEMETOLOGY METHOD 07/07/2024 10:40 AM [facility] Eosinophils Absolute 0.23 0.00 - 0.50 K/mcL LAB HEMETOLOGY METHOD 07/07/2024 10:40 AM [facility] Basophils Absolute 0.05 0.00 - 0.20 K/mcL LAB HEMETOLOGY METHOD 07/07/2024 10:40 AM EST [facility] Immature Granulocytes Absolute 0.02 0.00 - 0.03 K/[facility] LAB HEMETOLOGY METHOD 07/07/2024 10:40 AM [facility] Blood Venous blood specimen / Unknown Venipuncture / Unknown 07/07/2024 6:34 AM EST 07/07/2024 9:05 AM EST us Chris Barlow MD LAB BLOOD ORDERABLES Final Resu lt [facility] [address] [place] [address], [place] [phone] * Basic metabolic panel (07/07/2024 6:34 AM EST) Only the most recent of3 resultswithin the time period is included. Sodium 135 133 - 145 mmol/L LAB CHEMISTRY METHOD 07/07/2024 11:20 AM [facility] Potassium 4.2 3.5 - 5.5 mmol/L LAB CHEMISTRY METHOD 07/07/2024 11:20 AM [facility] Chloride 100 96 - 110 mmol/L LAB CHEMISTRY METHOD 07/07/2024 11:20 AM [facility] CO2 28 21 - 32 mmol/L LAB CHEMISTRY METHOD 07/07/2024 11:20 AM [facility] Anion Gap 7 3 - 11 LAB CHEMISTRY METHOD 07/07/2024 11:20 AM [facility] Glucose 92 70 - 100 mg/dL LAB CHEMISTRY METHOD 07/07/2024 11:20 AM [facility] BUN 19 5 - 25 mg/dL LAB CHEMISTRY METHOD 07/07/2024 11:20 AM [facility] Creatinine 0.70 0.50 - 1.10 mg/dL LAB CHEMISTRY METHOD 07/07/2024 11:20 AM [facility] eGFR 86 >=60 mL/min/1. 73m2 LAB CHEMISTRY METHOD 07/07/2024 11:20 AM [facility] Comment:Calculation based on the??Chronic Kidney Disease Epidemiology Collaboration (CKD-EPI) equation refit??without adjustment for race. BUN/Creatinine Ratio 27.1 LAB CHEMISTRY METHOD 07/07/2024 11:20 AM [facility] Calcium 9.0 8.5 - 10.5 mg/dL LAB CHEMISTRY METHOD 07/07/2024 11:20 AM [facility] Blood Venous blood specimen / Unknown Venipuncture / Unknown 07/07/2024 6:34 AM EST 07/07/2024 9:05 AM EST us Chris Barlow MD LAB BLOOD ORDERABLES Final Resu lt [facility] [address] [place] [address], [place] [phone] * (ABNORMAL) Urinalysis with reflex microscopic and culture (07/06/2024 10:07 AM EST) Specific [place] Urine 1.022 1.003 - 1.030 LAB URINALYSIS - AUTOMATED METHOD 07/06/2024 3:05 PM [facility] pH, Urine 5.5 5.0 - 8.0 pH LAB URINALYSIS - AUTOMATED METHOD 07/06/2024 3:05 PM [facility] Leukocytes, Urine Large(A) Negative LAB URINALYSIS - AUTOMATED METHOD 07/06/2024 3:05 PM [facility] Nitrite, Urine Positive(A) Negative LAB URINALYSIS - AUTOMATED METHOD 07/06/2024 3:05 PM [facility] Protein, Urine Negative <=Trace mg/dL LAB URINALYSIS - AUTOMATED METHOD 07/06/2024 3:05 PM [facility] Glucose, Urine Negative Negative mg/dL LAB URINALYSIS - AUTOMATED METHOD 07/06/2024 3:05 PM [facility] Ketones, Urine Negative Negative mg/dL LAB URINALYSIS - AUTOMATED METHOD 07/06/2024 3:05 PM [facility] Urobilinogen , Urine 1.0 0.2 - 1.0 mg/dL LAB URINALYSIS - AUTOMATED METHOD 07/06/2024 3:05 PM [facility] Bilirubin, Urine Negative Negative LAB URINALYSIS - AUTOMATED METHOD 07/06/2024 3:05 PM [facility] Blood, Urine Trace(A) Negative LAB URINALYSIS - AUTOMATED METHOD 07/06/2024 3:05 PM [facility] Urine Urine specimen obtained by clean catch procedure / Unknown 07/06/2024 10:07 AM EST 07/06/2024 2:07 PM EST us Chris Barlow MD LAB URINE ORDERABLES Final Resu lt Performing Organization Address City/[facility]/ZIP Co de Phone Number [facility] [address] [place] [address], [place] [phone] * Jay urine culture tube (07/06/2024 10:07 AM EST) Extra Tube Hold for add-ons. 07/06/2024 4:01 PM [facility] Comment:Auto resulted. Urine Urine specimen obtained by clean catch procedure / Unknown 07/06/2024 10:07 AM EST 07/06/2024 2:09 PM EST us Chris Barlow MD LAB URINE ORDERABLES Final Resu lt Performing Organization Address City/[facility]/ZIP Co de Phone Number [facility] [address] [place] [address], [place] [phone] * (ABNORMAL) Culture urine (07/06/2024 10:07 AM [...] MICROBIOLOGY - GENERAL ALONDRA ROTH Final Result [facility] [address] [place] [address], * Magnesium (07/05/2024 7:00 AM EST) Only the most recent of4 resultswithin the time period is included. Magnesium 2.4 1.9 - 2.6 mg/dL LAB CHEMISTRY METHOD 07/05/2024 12:15 PM EST [facility] Blood Venous blood specimen / Unknown Venipuncture / Unknown 07/05/2024 7:00 AM EST 07/05/2024 10:39 AM EST us Chris Barlow MD LAB BLOOD ORDERABLES Final Resu lt [facility] [address] [place] [address], * (ABNORMAL) Comprehensive metabolic panel (07/05/2024 7:00 AM EST) Only the most recent of3 resultswithin the time period is included. Sodium 132(L) 133 - 145 mmol/L LAB CHEMISTRY METHOD 07/05/2024 12:14 PM [facility] Potassium 4.3 3.5 - 5.5 mmol/L LAB CHEMISTRY METHOD 07/05/2024 12:14 PM [facility] Chloride 98 96 - 110 mmol/L LAB CHEMISTRY METHOD 07/05/2024 12:14 PM [facility] CO2 28 21 - 32 mmol/L LAB CHEMISTRY METHOD 07/05/2024 12:14 PM [facility] Anion Gap 6 3 - 11 LAB CHEMISTRY METHOD 07/05/2024 12:14 PM [facility] Glucose 95 70 - 100 mg/dL LAB CHEMISTRY METHOD 07/05/2024 12:14 PM [facility] BUN 21 5 - 25 mg/dL LAB CHEMISTRY METHOD 07/05/2024 12:14 PM [facility] Creatinine 0.80 0.50 - 1.10 mg/dL LAB CHEMISTRY METHOD 07/05/2024 12:14 PM [facility] eGFR 74 >=60 mL/min/1. 73m2 LAB CHEMISTRY METHOD 07/05/2024 12:14 PM [facility] Comment:Calculation based on the??Chronic Kidney Disease Epidemiology Collaboration (CKD-EPI) equation refit??without adjustment for race. BUN/Creatinine Ratio 26.3 LAB CHEMISTRY METHOD 07/05/2024 12:14 PM [facility] Calcium 8.9 8.5 - 10.5 mg/dL LAB CHEMISTRY METHOD 07/05/2024 12:14 PM [facility] AST (SGOT) 20 10 - 42 unit/L LAB CHEMISTRY METHOD 07/05/2024 12:14 PM [facility] ALT (SGPT) 50 10 - 60 unit/L LAB CHEMISTRY METHOD 07/05/2024 12:14 PM [facility] Alkaline Phosphatase 203(H) 42 - 121 unit/L LAB CHEMISTRY METHOD 07/05/2024 12:14 PM [facility] Total Protein 6.1 6.0 - 8.0 g/dL LAB CHEMISTRY METHOD 07/05/2024 12:14 PM [facility] Albumin 3.5 3.2 - 5.0 g/dL LAB CHEMISTRY METHOD 07/05/2024 12:14 PM [facility] Total Bilirubin 0.9 0.0 - 1.4 mg/dL LAB CHEMISTRY METHOD 07/05/2024 12:14 PM [facility] Blood Venous blood specimen / Unknown Venipuncture / Unknown 07/05/2024 7:00 AM EST 07/05/2024 10:39 AM EST us Chris Barlow MD LAB BLOOD ORDERABLES Final Resu lt [facility] [address] [place] [address], from Last 3 Months Insurance MEDICARE AARP Advance Directives Documents on File Type Date Recorded Patient Ehs Engineer Expl anation Health Care Decision (hx) 02/16/2022 ADVANCE DIRECTIVE AN D LIVING WILL Health Care Decision (hx) 12/21/2020 ADVANCE DIRECTIVE Care Teams Psychology Instructor Relationship Specialty Start Date End Date Leonardo García MD [address] [place] [phone] PCP - General Internal Medicine 06/30/24
--- OUTSIDE RECORDS SUMMARY | 2024-07-24 16:45 | XMS_ITS | Encounter Summary ---
Author Organization [facility] Address [address] [place] [address] Care Team Providers Care Instructor Substitute Cosmetology Name Role Phone Leonardo García MD Primary Care Provider [phone] Encounter Details Date Type Department Care Team (Late st Contact Info) Description 07/05/2024 Lab Requisition [facility] - Main Lab [address] [facility] [place] [address] Chris Barlow MD [address] [place] [address] Encounter for other general examination Social History [...] CBC auto differential (07/05/2024 7:00 AM EST) [facility] WBC 9.9 4.8 - 10.8 K/mcL LAB HEMETOLOGY METHOD 07/05/2024 11:42 AM [facility] RBC 3.60(L) 3.80 - 4.80 M/mcL LAB HEMETOLOGY METHOD 07/05/2024 11:42 AM [facility] Hemoglobin 10.7(L) 11.5 - 16.0 g/dL LAB HEMETOLOGY METHOD 07/05/2024 11:42 AM [facility] Hematocrit 32.8(L) 35.0 - 47.0 % LAB HEMETOLOGY METHOD 07/05/2024 11:42 AM [facility] MCV 92.1 79.0 - 98.0 FL LAB HEMETOLOGY METHOD 07/05/2024 11:42 AM [facility] MCH 30.1 27.0 - 32.0 pcg LAB HEMETOLOGY METHOD 07/05/2024 11:42 AM [facility] MCHC 32.6 32.0 - 37.0 g/dL LAB HEMETOLOGY METHOD 07/05/2024 11:42 AM [facility] RDW 14.2 11.0 - 15.0 % LAB HEMETOLOGY METHOD 07/05/2024 11:42 AM [facility] Platelets 439(H) 130 - 400 K/mcL LAB HEMETOLOGY METHOD 07/05/2024 11:42 AM [facility] MPV 8.9 7.0 - 11.0 FL LAB HEMETOLOGY METHOD 07/05/2024 11:42 AM [facility] NRBC 0.0 <1.0 % LAB HEMETOLOGY METHOD 07/05/2024 11:42 AM [facility] NRBC Absolute 0.00 <0.10 K/mcL LAB HEMETOLOGY METHOD 07/05/2024 11:42 AM [facility] Neutrophils Relative 71.2 % LAB HEMETOLOGY METHOD 07/05/2024 11:42 AM [facility] Lymphocytes Relative 16.3 % LAB HEMETOLOGY METHOD 07/05/2024 11:42 AM [facility] Monocytes Relative 10.4 % LAB HEMETOLOGY METHOD 07/05/2024 11:42 AM [facility] Eosinophils Relative 1.2 % LAB HEMETOLOGY METHOD 07/05/2024 11:42 AM [facility] Basophils Relative 0.4 % LAB HEMETOLOGY METHOD 07/05/2024 11:42 AM [facility] Immature Granulocytes Relative 0.5 % LAB HEMETOLOGY METHOD 07/05/2024 11:42 AM [facility] Neutrophils Absolute 7.06(H) 1.50 - 7.00 K/mcL LAB HEMETOLOGY METHOD 07/05/2024 11:42 AM [facility] Lymphocytes Absolute 1.62 1.00 - 5.00 K/mcL LAB HEMETOLOGY METHOD 07/05/2024 11:42 AM [facility] Monocytes Absolute 1.03(H) 0.20 - 1.00 K/mcL LAB HEMETOLOGY METHOD 07/05/2024 11:42 AM [facility] Eosinophils Absolute 0.12 0.00 - 0.50 K/mcL LAB HEMETOLOGY METHOD 07/05/2024 11:42 AM [facility] Basophils Absolute 0.04 0.00 - 0.20 K/mcL LAB HEMETOLOGY METHOD 07/05/2024 11:42 AM [facility] Immature Granulocytes Absolute 0.05(H) 0.00 - 0.03 K/mcL LAB HEMETOLOGY METHOD 07/05/2024 11:42 AM EST [facility] Blood Venous blood specimen / Unknown Venipuncture / Unknown 07/05/2024 7:00 AM EST 07/05/2024 10:39 AM EST Chris Barlow MD LAB BLOOD ORDERABLES Final Resu lt [facility] [address] [place] [address], [place] [phone] * Magnesium (07/05/2024 7:00 AM EST) Magnesium 2.4 1.9 - 2.6 mg/dL LAB CHEMISTRY METHOD 07/05/2024 12:15 PM [facility] Blood Venous blood specimen / Unknown Venipuncture / Unknown 07/05/2024 7:00 AM EST 07/05/2024 10:39 AM EST Chris Barlow MD LAB BLOOD ORDERABLES Final Resu lt [facility] [address] [place] [address], [place] [phone] * (ABNORMAL) Comprehensive metabolic panel (07/05/2024 7:00 AM EST) Sodium 132(L) 133 - 145 mmol/L LAB CHEMISTRY METHOD 07/05/2024 12:14 PM [facility] Potassium 4.3 3.5 - 5.5 mmol/L LAB CHEMISTRY METHOD 07/05/2024 12:14 PM [facility] Chloride 98 96 - 110 mmol/L LAB CHEMISTRY METHOD 07/05/2024 12:14 PM [facility] CO2 28 21 - 32 mmol/L LAB CHEMISTRY METHOD 07/05/2024 12:14 PM [facility] Anion Gap 6 3 - 11 LAB CHEMISTRY METHOD 07/05/2024 12:14 PM [facility] Glucose 95 70 - 100 mg/dL LAB CHEMISTRY METHOD 07/05/2024 12:14 PM [facility] BUN 21 5 - 25 mg/dL LAB CHEMISTRY METHOD 07/05/2024 12:14 PM [facility] Creatinine 0.80 0.50 - 1.10 mg/dL LAB CHEMISTRY METHOD 07/05/2024 12:14 PM [facility] eGFR 74 >=60 mL/min/1. 73m2 LAB CHEMISTRY METHOD 07/05/2024 12:14 PM [facility] Comment:Calculation based on the??Chronic Kidney Disease Epidemiology Collaboration (CKD-EPI) equation refit??without adjustment for race. BUN/Creatinine Ratio 26.3 LAB CHEMISTRY METHOD 07/05/2024 12:14 PM [facility] Calcium 8.9 8.5 - 10.5 mg/dL LAB CHEMISTRY METHOD 07/05/2024 12:14 PM [facility] AST (SGOT) 20 10 - 42 unit/L LAB CHEMISTRY METHOD 07/05/2024 12:14 PM [facility] ALT (SGPT) 50 10 - 60 unit/L LAB CHEMISTRY METHOD 07/05/2024 12:14 PM [facility] Alkaline Phosphatase 203(H) 42 - 121 unit/L LAB CHEMISTRY METHOD 07/05/2024 12:14 PM [facility] Total Protein 6.1 6.0 - 8.0 g/dL LAB CHEMISTRY METHOD 07/05/2024 12:14 PM [facility] Albumin 3.5 3.2 - 5.0 g/dL LAB CHEMISTRY METHOD 07/05/2024 12:14 PM [facility] Total Bilirubin 0.9 0.0 - 1.4 mg/dL LAB CHEMISTRY METHOD 07/05/2024 12:14 PM [facility] Blood Venous blood specimen / Unknown Venipuncture / Unknown 07/05/2024 7:00 AM EST 07/05/2024 10:39 AM EST us Chris Barlow MD LAB BLOOD ORDERABLES Final Resu lt Performing Organization Address City/State/[facility] Co de Phone Number [facility] [address] [place] [address], documented in this encounter Visit Diagnoses Diagnosis Encounter for other general examination documented in this encounter Care Teams Instructor Substitute Cosmetology Relationship Specialty Start Date End Date Leonardo García MD [address] [place] [phone] PCP - General Internal Medicine 06/30/24 documented as of this encounter
--- OUTSIDE RECORDS SUMMARY | 2024-07-24 16:46 | XMS_ITS | Patient Health Record ---
Author Organization [facility] Address [address] [place] [address] Care Team Providers Care Grocery Stocker Name Role Phone Ashleigh Grullon MD Primary Care Provider Mukesh Taveras [phone] ALLERGIES Allergen (clinical drug ingredient) Drug/Non Drug [...] bleeding (K29.01) Active confirmed Acute hemorrhagic gastritis (5451785) Problem Diverticulosis of large intestine without perforation or abscess without bleeding (K57.30) Active confirmed Diverticul ar disease of colon (856406019) Problem Iron deficiency anemia (D50.9) Active confirmed Iron deficien cy anemia (98250411) Problem Hiatal hernia (K44.9) Active confirmed Hiatal hernia (94285953) Problem Chronic diarrhea (K52.9) Active confirmed Chronic diarrhea (362720301) Problem Chronic gastritis with bleeding, unspecified gastritis type (K29.51) Active confirmed Chronic antral gastritis with hemorrhage (disorder) (476824577) Problem Gastric ulcer (K25.9) Active confirmed Gastric ulcer (274345225) Problem Gastritis, erosive (K29.60) Active confirmed Erosive gastritis (02736764897070 00) VITAL SIGNS Temperature 96.4 degrees Fahrenheit 08/28/2023 Blood pressure diastolic 00 mm Hg 08/28/2023 Height 63.5 in 08/28/2023 Blood pressure systolic 00 mm Hg 08/28/2023 Weight 150 lbs 08/28/2023 BMI 26.15 kg/m2 08/28/2023 Encounters Encounter Location Date Provider Diagnosis [facility] [address] [place] [address] 08/28/2023 Mukesh Bearden Iron deficiency anem ia [...] OF [place] [address] [place] [address] [phone] [id number] SRINIVASAN ALVARADO Self - patient is the insured [facility] [employer] [address] [place] [address] [phone] [id number] SRINIVASAN ALVARADO Self - patient is the insured MEDICAL (GENERAL) HISTORY Medical History History ICD Code Denies NH,DM,CVA,Lung disease,renal dise ase Colonoscopy in 10/2001 with [...]
--- OUTSIDE RECORDS SUMMARY | 2024-07-24 16:46 | XMS_ITS | Encounter Summary ---
Author Organization [facility] Address [address] [place] [address] Care Team Providers Care Product Sales Representative Name Role Phone Leonardo García MD Primary Care Provider [phone] Encounter Details Date Type Department Care Team (Late st Contact Info) Description 07/07/2024 Lab Requisition [facility] - Main Lab [address] [facility] [employer] [address] Chris Barlow MD [address] [place] [address] Encounter for other general examination Social History [...] CBC auto differential (07/07/2024 6:34 AM EST) [facility] WBC 6.0 4.8 - 10.8 K/mcL LAB HEMETOLOGY METHOD 07/07/2024 10:40 AM [facility] RBC 3.20(L) 3.80 - 4.80 M/mcL LAB HEMETOLOGY METHOD 07/07/2024 10:40 AM [facility] Hemoglobin 10.1(L) 11.5 - 16.0 g/dL LAB HEMETOLOGY METHOD 07/07/2024 10:40 AM [facility] Hematocrit 30.7(L) 35.0 - 47.0 % LAB HEMETOLOGY METHOD 07/07/2024 10:40 AM [facility] MCV 94.8 79.0 - 98.0 FL LAB HEMETOLOGY METHOD 07/07/2024 10:40 AM [facility] MCH 31.2 27.0 - 32.0 pcg LAB HEMETOLOGY METHOD 07/07/2024 10:40 AM [facility] MCHC 32.9 32.0 - 37.0 g/dL LAB HEMETOLOGY METHOD 07/07/2024 10:40 AM [facility] RDW 14.2 11.0 - 15.0 % LAB HEMETOLOGY METHOD 07/07/2024 10:40 AM [facility] Platelets 415(H) 130 - 400 K/mcL LAB HEMETOLOGY METHOD 07/07/2024 10:40 AM [facility] MPV 9.2 7.0 - 11.0 FL LAB HEMETOLOGY METHOD 07/07/2024 10:40 AM [facility] NRBC 0.0 <1.0 % LAB HEMETOLOGY METHOD 07/07/2024 10:40 AM [facility] NRBC Absolute 0.00 <0.10 K/mcL LAB HEMETOLOGY METHOD 07/07/2024 10:40 AM [facility] Neutrophils Relative 57.2 % LAB HEMETOLOGY METHOD 07/07/2024 10:40 AM [facility] Lymphocytes Relative 25.4 % LAB HEMETOLOGY METHOD 07/07/2024 10:40 AM [facility] Monocytes Relative 12.5 % LAB HEMETOLOGY METHOD 07/07/2024 10:40 AM [facility] Eosinophils Relative 3.8 % LAB HEMETOLOGY METHOD 07/07/2024 10:40 AM [facility] Basophils Relative 0.8 % LAB HEMETOLOGY METHOD 07/07/2024 10:40 AM [facility] Immature Granulocytes Relative 0.3 % LAB HEMETOLOGY METHOD 07/07/2024 10:40 AM [facility] Neutrophils Absolute 3.42 1.50 - 7.00 K/mcL LAB HEMETOLOGY METHOD 07/07/2024 10:40 AM [facility] Lymphocytes Absolute 1.52 1.00 - 5.00 K/mcL LAB HEMETOLOGY METHOD 07/07/2024 10:40 AM [facility] Monocytes Absolute 0.75 0.20 - 1.00 K/mcL LAB HEMETOLOGY METHOD 07/07/2024 10:40 AM [facility] Eosinophils Absolute 0.23 0.00 - 0.50 K/mcL LAB HEMETOLOGY METHOD 07/07/2024 10:40 AM [facility] Basophils Absolute 0.05 0.00 - 0.20 K/mcL LAB HEMETOLOGY METHOD 07/07/2024 10:40 AM [facility] Immature Granulocytes Absolute 0.02 0.00 - 0.03 K/mcL LAB HEMETOLOGY METHOD 07/07/2024 10:40 AM [facility] Blood Venous blood specimen / Unknown Venipuncture / Unknown 07/07/2024 6:34 AM EST 07/07/2024 9:05 AM EST us Chris Barlow MD LAB BLOOD ORDERABLES Final Resu lt [facility] [address] [place] [address], [place] [phone] * Basic metabolic panel (07/07/2024 6:34 AM EST) Sodium 135 133 - 145 mmol/L LAB CHEMISTRY METHOD 07/07/2024 11:20 AM [facility] Potassium 4.2 3.5 - 5.5 mmol/L LAB CHEMISTRY METHOD 07/07/2024 11:20 AM [facility] Chloride 100 96 - 110 mmol/L LAB CHEMISTRY METHOD 07/07/2024 11:20 AM [facility] CO2 28 21 - 32 mmol/L LAB CHEMISTRY METHOD 07/07/2024 11:20 AM [facility] Anion Gap 7 3 - 11 LAB CHEMISTRY METHOD 07/07/2024 11:20 AM [facility] Glucose 92 70 - 100 mg/dL LAB CHEMISTRY METHOD 07/07/2024 11:20 AM [facility] BUN 19 5 - 25 mg/dL LAB CHEMISTRY METHOD 07/07/2024 11:20 AM [facility] Creatinine 0.70 0.50 - 1.10 mg/dL LAB CHEMISTRY METHOD 07/07/2024 11:20 AM [facility] eGFR 86 >=60 mL/min/1. 73m2 LAB CHEMISTRY METHOD 07/07/2024 11:20 AM [facility] Comment:Calculation based on the??Chronic Kidney Disease Epidemiology Collaboration (CKD-EPI) equation refit??without adjustment for race. BUN/Creatinine Ratio 27.1 LAB CHEMISTRY METHOD 07/07/2024 11:20 AM [facility] Calcium 9.0 8.5 - 10.5 mg/dL LAB CHEMISTRY METHOD 07/07/2024 11:20 AM EST [facility] Blood Venous blood specimen / Unknown Venipuncture / Unknown 07/07/2024 6:34 AM EST 07/07/2024 9:05 AM EST us Chris Barlow MD LAB BLOOD ORDERABLES Final Resu lt [facility] [address] [place] [address], documented in this encounter Visit Diagnoses Diagnosis Encounter for other general examination documented in this encounter Care Teams Product Sales Representative Relationship Specialty Start Date End Date Leonardo García MD [address] [place] [address] PCP - General Internal Medicine 06/30/24 documented as of this encounter
--- OUTSIDE RECORDS SUMMARY | 2024-07-24 16:46 | XMS_ITS | Clinical Summary ---
Author Organization [facility] Address [address] [place] [address] Care Team Providers Care Polo Coach Name Role Phone Ashleigh Grullon MD Primary Care Provider [phone] Allergies Active Allergy Reactions Criticality Noted Date Comments Ampicillin Anaphylaxis High 08/15/2017 Chloramphenicol Anaphylaxis High 08/15/2017 [place] 08/30/2017 Tape Rash Medium 08/30/2017 Paper tape, [...] MORNING AND IN THE EVENING 0 Active [place]-3 Fatty Acids (OMEGA-3 FISH OIL PO) Take [...] Immunizations Name Administration Dates Next Due Covid-19 (True Office) Dilution Required 05/11/2021,0 08/04/2020,07/14/2020 Social History Tobacco [...] this topic Medical Devices Implanted Type Area Die Cast Patternmaker Device Identifier Shelf Expiration Date Model / Serial / Lot Screw 6.5 X 45.Mm - [id number] - [id number] Implanted:Qty : 1 on 08/30/2017 by Emeka Lopez MD at [facility] [place] Posterior: Spine Lumbar [employer] 1067.1645 / / 6.5 X 50mm Screw Modular Creo Amp - [id number] - [id number] Implanted:Qty : 3 on 08/30/2017 by Emeka Lopez MD at [facility] [place] [place] Posterior: Spine Lumbar [employer] 1067.1650 / / 5.5 Polyaxial Tulip Threaded Creo Amp - [id number] - [id number] Implanted:Qty : 4 on 08/30/2017 by Emeka Lopez MD at [facility] [place] Posterior: Spine Lumbar [employer] 1119.0110 / / 5.5 Threaded Locking Cap Creo - 649235 - [id number] Implanted:Qty : 4 on 08/30/2017 by Emeka Lopez MD at [facility] [place] Posterior: Spine Lumbar [facility] 1119.0010 / / 5.5mm Curved Gurpreet Titanium Alloy 40mm Length - [id number] - [id number] Implanted:Qty : 2 on 08/30/2017 by Emeka Lopez MD at [facility] [place] Posterior: Spine Lumbar [facility] 1119.7040 / / Lp Hex Screw 6.5x20mm Stry-Howm [id number] 457 - [id number] Implanted:Qty : 1 on 02/16/2022 by Ottoniel Wells MD at [facility] [place] [place] Left: Hip [facility] [employer] [id number] 11/23/2026 4313-7085 / / [id number] Hip Insrt X3 Trident 0d 36mm E Stry-Howm 716-39-68s-20 0921 - [id number] Implanted:Qty : 1 on 02/16/2022 by Ottoniel Wells MD at [facility] [place] Left: Hip [employer] [facility] [id number] 09/24/2025 623-10-36 E / / [id number] Hip Stm Parveen 127 #2 30 124 Stry-Howm 3908-9606o-39 7932 - [id number] Implanted:Qty : 1 on 02/16/2022 by Ottoniel Wells MD at [facility] [place] [place] Left: Hip [employer] [id number] 10/21/2026 7972-8198 D / / [id number] Plug Bone Sm Stry-Howm 9294-3-424-14 3871 - [id number] Implanted:Qty : 1 on 02/16/2022 by Ottoniel Wells MD at [facility] [place] Left: Hip [facility] [facility] [id number] 11/16/2026 6215-5-00 1 / / [id number] E Hip Dist Spacer Ostnc Univ #8 Stry-Howm 3693-4146-620 590 - [id number] Implanted:Qty : 1 on 02/16/2022 by Ottoniel Wells MD at [facility] [place] [place] Left: Hip [facility] [facility] [id number] 01/19/2027 1305-6893 / / [id number] Hip Head Delta [employer] 36mm-2.5 Stry-Howm 0407-1-219-54 9191 - [id number] Implanted:Qty : 1 on 02/16/2022 by Ottoniel Wells MD at [facility] [place] [facility] Left: Hip [facility] [facility] [id number] 11/10/2026 6570-0-43 6 / / [id number] Cement Bone Surg Simplex Radiopq Stry-Howm 4396-6-080-11 4092 - [id number] Implanted:Qty : 1 on 02/16/2022 by Ottoniel Wells MD at [facility] [place] [place] [facility] Left: Hip [facility] [id number] 05/03/2023 6190-06-04 0 / / [id number] Cement Bone Surg Simplex Radiopq Stry-Howm 7058-6-072-11 4092 - [id number] Implanted:Qty : 1 on 02/16/2022 by Ottoniel Wells MD at [facility] [place] [place] Left: Hip [employer] [facility] [id number] 05/03/2023 6190-06-04 0 / / [id number] Lp Hex Screw 6.5x30mm Stry-Howm 4923-7800-585 478 - [id number] Implanted:Qty : 1 on 02/16/2022 by Ottoniel Wells MD at [facility] [place] [place] Left: Hip [facility] [id number] 12/15/2026 6300-0596 / / [id number] Tritanium Cluster Hole Shell 52mm Stry-Howm 120-44-16g-77 0473 - [id number] Implanted:Qty : 1 on 02/16/2022 by Ottoniel Wells MD at [facility] [place] [place] Left: Hip [facility] [id number] 09/28/2026 702-04-52 E / / [id number] Advance Directives For more information, please contact: [phone] Documents on File Type Date Recorded Patient Concentrator Operator Expl anation Advance Directive and Living Will [...] way: discussion with patient . Care Teams Polo Coach Relationship Specialty Start Date End Date Cichon, Ashleigh, MD [address] [place] [address] PCP - General Painter Drum 01/02/22
--- OUTSIDE RECORDS SUMMARY | 2024-07-24 16:46 | XMS_ITS | Clinical Summary ---
Author Organization [facility] Address [address] [place] [address] Care Team Providers Care Business Communications Instructor Name Role Phone Unavailable Primary Care Provider [...]
--- OUTSIDE RECORDS SUMMARY | 2024-07-24 16:46 | XMS_ITS | Encounter Summary ---
Author Organization [facility] Address [address] [place] [address] Care Team Providers Care Assistant Manager Pt Name Role Phone Unavailable Primary Care Provider Unavailabl e Encounter Details Date Type Department Care Team (Late st Contact Info) Description 03/17/2020 Lab Requisition [facility] [address] [place] [address] Boo Milian PA-C [address] [place] [address] Encounter for laboratory testing for COVID-19 virus [...] DETECTED Not Detected 03/18/2020 5:59 PM EDT [facility] Comment: ADDITIONAL INFORMATION The SUKUMAR COVID-19 RT-PCR Assay is Real-Time Reverse Ice Cream Maker Polymerase Chain Reaction (tube skiver-PCR) for the in vitro qualitative detection of three SARS-Cov-2 target sequences unique to the coronavirus disease 2019 (COVID-19). This is an Emergency Use Authorization (EUA) in vitro diagnostic (IVD) test that has been modified to include the [facility] automated liquid handler. Its analytical performance characteristics have been determined by the pallet rectifier and verified by [facility] in a manner consistent with CLIA [...] at the following links: For Healthcare Providers: https://www.fda.gov/media/257950/download For Patients: https://www.fda.gov/media/881299/download TEST LIMITATIONS Positive results are indicative of [...] system. For further details refer to the Source Audio TaqPath COVID-19 Combo Kit EUA submission (https://www.[employer].gov/media/356539/download). ----- Test performed by [facility] for [facility], [address] [place], [place] [address] CLIA# [id number] ?[id number] ? Antoine Shah M.D., Ph.D., [facility], Clinical Office Bookkeeper Microbiology Nasopharyngeal swab / Unknown 03/17/2020 2:45 PM EDT 03/17/2020 2:45 PM EDT Narrative [facility] - 03/18/2020 5:59 PM EDT Performed at [facility], [address] [place], [place], [place] Lic [address], CLIA [id number] Boo Milian PA-C MICROBIOLOGY - NERAL ORDERABLES [facility] [address] [place] [address] documented in this encounter Visit Diagnoses Diagnosis Encounter for laboratory testing for COVID-19 virus documented in this encounter
== END 2024-07-24 15:48 | disposition home or self-care (01) ==
LOC: HO.MMNH2L 15:47
PROVIDERS: Visit Provider Nurse Practitioner
DX: E46 Unspecified protein-calorie malnutrition (principal); K92.2 Gastrointestinal hemorrhage, unspecified
CPT/HCPCS: 36415; 80076; 85025; 85610

== ENCOUNTER 2024-07-28 07:37 | Outpatient (REF) | payer MEDICARE, SELFPAY ==
[2024-07-28 06:12] LABS: MANUAL DIFF FLAG NO
[2024-07-28 06:38] LABS: Basophils Absolute Auto 0.1 X10*3/uL (0.0-0.2); Basophils Percent Auto 1.1 % (0-2); Eosinophils Absolute Auto 0.3 X10*3/uL (0.0-0.4); Eosinophils Percent Auto 5.2 % (0-4); Hematocrit 36.7 % (37.0-47.0); Hemoglobin 12.1 g/dl (12.0-16.0); Imm Gran Abs Auto 0.01 X10*3/uL (0.00-0.03); Imm Gran Pct Auto 0.2 % (0.0-0.4); Lymphocytes Absolute Auto 1.7 X10*3/uL (1.2-4.9); Lymphocytes Percent Auto 29.6 % (20-40); Mean Corpuscular Hemoglobin 30.6 pg (27.0-33.0); Mean Corpuscular Volume 92.7 fL (80.0-98.0); Mean Platelet Volume 9.7 fL (9.4-12.3); Monocytes Absolute Auto 0.6 X10*3/uL (0.1-1.2); Monocytes Percent Auto 10.2 % (2-11); Neutrophils Percent Auto 53.7 % (45-73); Platelet Count 286 X10*3/uL (160-400); Red Blood Count 3.96 X10*6/uL (4.20-5.50); Red Cell Distribution Width 13.7 % (11.0-16.0); White Blood Count 5.6 X10*3/uL (4.8-10.8)
[2024-07-28 07:05] LABS: Anion Gap 14 (12-20); Blood Urea Nitrogen 10 mg/dL (9-16); Calcium 8.9 mg/dL (8.4-10.2); Carbon Dioxide 23 mmol/L (22-29); Chloride 105 mmol/L (96-108); Estimated Glomerular Filt Rate > 60; Glucose Random 106 mg/dL (60-115); Potassium 3.2 mmol/L (3.3-5.1); Sodium 139 mmol/L (135-145)
--- OUTSIDE RECORDS SUMMARY | 2024-07-28 07:40 | XMS_ITS | Encounter Summary ---
Author Organization [facility] Address [address] [place] [address] Care Team Providers Care Box Press Operator Name Role Phone Leonardo García MD Primary Care Provider [phone] Encounter Details Date Type Department Care Team (Late st Contact Info) Description 06/21/2024 Lab Requisition [facility] - Main Lab [address] [facility] [place] [address] Chris Barlow MD [address] [place] [address] Encounter for other general examination Social History [...] CBC auto differential (06/21/2024 7:13 AM EST) [facility] WBC 8.0 4.8 - 10.8 K/mcL LAB HEMETOLOGY METHOD 06/21/2024 10:55 AM [facility] RBC 3.50(L) 3.80 - 4.80 M/mcL LAB HEMETOLOGY METHOD 06/21/2024 10:55 AM [facility] Hemoglobin 10.5(L) 11.5 - 16.0 g/dL LAB HEMETOLOGY METHOD 06/21/2024 10:55 AM [facility] Hematocrit 30.6(L) 35.0 - 47.0 % LAB HEMETOLOGY METHOD 06/21/2024 10:55 AM [facility] MCV 88.7 79.0 - 98.0 FL LAB HEMETOLOGY METHOD 06/21/2024 10:55 AM [facility] MCH 30.4 27.0 - 32.0 pcg LAB HEMETOLOGY METHOD 06/21/2024 10:55 AM [facility] MCHC 34.3 32.0 - 37.0 g/dL LAB HEMETOLOGY METHOD 06/21/2024 10:55 AM [facility] RDW 13.4 11.0 - 15.0 % LAB HEMETOLOGY METHOD 06/21/2024 10:55 AM [facility] Platelets 257 130 - 400 K/mcL LAB HEMETOLOGY METHOD 06/21/2024 10:55 AM [facility] MPV 9.7 7.0 - 11.0 FL LAB HEMETOLOGY METHOD 06/21/2024 10:55 AM [facility] NRBC 0.0 <1.0 % LAB HEMETOLOGY METHOD 06/21/2024 10:55 AM [facility] NRBC Absolute 0.00 <0.10 K/mcL LAB HEMETOLOGY METHOD 06/21/2024 10:55 AM [facility] Neutrophils Relative 73.2 % LAB HEMETOLOGY METHOD 06/21/2024 10:55 AM [facility] Lymphocytes Relative 16.0 % LAB HEMETOLOGY METHOD 06/21/2024 10:55 AM [facility] Monocytes Relative 7.3 % LAB HEMETOLOGY METHOD 06/21/2024 10:55 AM [facility] Eosinophils Relative 2.3 % LAB HEMETOLOGY METHOD 06/21/2024 10:55 AM [facility] Basophils Relative 0.6 % LAB HEMETOLOGY METHOD 06/21/2024 10:55 AM [facility] Immature Granulocytes Relative 0.6 % LAB HEMETOLOGY METHOD 06/21/2024 10:55 AM [facility] Neutrophils Absolute 5.84 1.50 - 7.00 K/mcL LAB HEMETOLOGY METHOD 06/21/2024 10:55 AM [facility] Lymphocytes Absolute 1.28 1.00 - 5.00 K/mcL LAB HEMETOLOGY METHOD 06/21/2024 10:55 AM [facility] Monocytes Absolute 0.58 0.20 - 1.00 K/mcL LAB HEMETOLOGY METHOD 06/21/2024 10:55 AM [facility] Eosinophils Absolute 0.18 0.00 - 0.50 K/mcL LAB HEMETOLOGY METHOD 06/21/2024 10:55 AM [facility] Basophils Absolute 0.05 0.00 - 0.20 K/mcL LAB HEMETOLOGY METHOD 06/21/2024 10:55 AM [facility] Immature Granulocytes Absolute 0.05(H) 0.00 - 0.03 K/mcL LAB HEMETOLOGY METHOD 06/21/2024 10:[address] [facility] Blood Venous blood specimen / Unknown Venipuncture / Unknown 06/21/2024 7:13 AM EST 06/21/2024 10:03 AM EST us Chris Barlow MD LAB BLOOD ORDERABLES Final Resu lt Performing Organization Address City/[facility]/ZIP Co de Phone Number [facility] [address] [place] [address], [place] [phone] * (ABNORMAL) Magnesium (06/21/2024 7:13 AM EST) Magnesium 1.7(L) 1.9 - 2.6 mg/dL LAB CHEMISTRY METHOD 06/21/2024 11:[address] [facility] Blood Venous blood specimen / Unknown Venipuncture / Unknown 06/21/2024 7:13 AM EST 06/21/2024 10:03 AM EST us Chris Barlow MD LAB BLOOD ORDERABLES Final Resu lt Performing Organization Address [facility]/ZIP Co de Phone Number [facility] [address] [place] [address], [place] [phone] * (ABNORMAL) Comprehensive metabolic panel (06/21/2024 7:13 AM EST) Sodium 138 133 - 145 mmol/L LAB CHEMISTRY METHOD 06/21/2024 11:[address] [facility] Potassium 2.8(LL) 3.5 - 5.5 mmol/L LAB CHEMISTRY METHOD 06/21/2024 11:[address] [facility] Chloride 103 96 - 110 mmol/L LAB CHEMISTRY METHOD 06/21/2024 11:[address] [facility] CO2 30 21 - 32 mmol/L LAB CHEMISTRY METHOD 06/21/2024 11:50 AM [facility] Anion Gap 5 3 - 11 LAB CHEMISTRY METHOD 06/21/2024 11:50 AM [facility] Glucose 109(H) 70 - 100 mg/dL LAB CHEMISTRY METHOD 06/21/2024 11:50 AM [facility] BUN 8 5 - 25 mg/dL LAB CHEMISTRY METHOD 06/21/2024 11:50 AM [facility] Creatinine 0.62 0.50 - 1.10 mg/dL LAB CHEMISTRY METHOD 06/21/2024 11:50 AM [facility] eGFR 89 >=60 mL/min/1. 73m2 LAB CHEMISTRY METHOD 06/21/2024 11:50 AM [facility] Comment:Calculation based on the??Chronic Kidney Disease Epidemiology Collaboration (CKD-EPI) equation refit??without adjustment for race. BUN/Creatinine Ratio 12.9 LAB CHEMISTRY METHOD 06/21/2024 11:50 AM [facility] Calcium 8.4(L) 8.5 - 10.5 mg/dL LAB CHEMISTRY METHOD 06/21/2024 11:50 AM [facility] AST (SGOT) 71(H) 10 - 42 unit/L LAB CHEMISTRY METHOD 06/21/2024 11:50 AM [facility] ALT (SGPT) 46 10 - 60 unit/L LAB CHEMISTRY METHOD 06/21/2024 11:50 AM [facility] Alkaline Phosphatase 95 42 - 121 unit/L LAB CHEMISTRY METHOD 06/21/2024 11:50 AM [facility] Total Protein 5.6(L) 6.0 - 8.0 g/dL LAB CHEMISTRY METHOD 06/21/2024 11:50 AM [facility] Albumin 2.9(L) 3.2 - 5.0 g/dL LAB CHEMISTRY METHOD 06/21/2024 11:50 AM [facility] Total Bilirubin 0.7 0.0 - 1.4 mg/dL LAB CHEMISTRY METHOD 06/21/2024 11:[address] [facility] Blood Venous blood specimen / Unknown Venipuncture / Unknown 06/21/2024 7:13 AM EST 06/21/2024 10:03 AM EST us Chris Barlow MD LAB BLOOD ORDERABLES Final Resu lt [facility] [address] [place] [address], documented in this encounter Visit Diagnoses Diagnosis Encounter for other general examination documented in this encounter Additional Health Concerns Infection Onset Date Last Indicated Resolved Time Respiratory Rule-Out 07/26/2024 07/26/2024 025 3:02 AM EST COVID-19 Rule-Out 07/26/2024 07/26/2024 07/26/2024 3:02 AM EST documented as of this encounter Care Teams Box Press Operator Relationship Specialty Start Date End Date Leonardo García MD [address] [place] [id number] PCP - General Internal Medicine 06/30/24 documented as of this encounter
--- OUTSIDE RECORDS SUMMARY | 2024-07-28 07:40 | XMS_ITS | Encounter Summary ---
Author Organization [facility] Address [address] [place] [address] Care Team Providers Care Camper Assembler Name Role Phone Unavailable Primary Care Provider Unavailabl e Encounter Details Date Type Department Care Team (Late st Contact Info) Description 03/17/2020 Lab Requisition [facility] [address] [place] [address] Boo Milian PA-C [address] [place] [id number] Encounter for laboratory testing for COVID-19 virus [...] DETECTED Not Detected 03/18/2020 5:59 PM EDT Primary Data Comment: ADDITIONAL INFORMATION The SUK[employer]AR COVID-19 RT-PCR Assay is Real-Time Reverse Drill Press Hand Polymerase Chain Reaction (medical device engineer-PCR) for the in vitro qualitative detection of three SARS-Cov-2 target sequences unique to the coronavirus disease 2019 (COVID-19). This is an Emergency Use Authorization (EUA) in vitro diagnostic (IVD) test that has been modified to include the [employer] automated liquid handler. Its analytical performance characteristics have been determined by the control room technician and verified by [facility] in a manner consistent with CLIA [...] at the following links: For Healthcare Providers: https://www.fda.gov/media/461113/download For Patients: https://www.fda.gov/media/777456/download TEST LIMITATIONS Positive results are indicative of [...] system. For further details refer to the [employer] TaqPath COVID-19 Combo Kit EUA submission (https://www.[place].gov/media/193900/download). ----- Test performed by [facility], [address] [place], [place] [address] CLIA# [id number] ?[id number] ? Antoine Shah M.D., Ph.D., [facility] [place], Clinical Ship Purser Microbiology Nasopharyngeal swab / Unknown 03/17/2020 2:45 PM EDT 03/17/2020 2:45 PM EDT Narrative [facility] - 03/18/2020 5:59 PM EDT Performed at [facility], [address], [place], [place] Lic [address], CLIA [id number] Boo Milian PA-C MICROBIOLOGY - NERAL ORDERABLES [facility] [address] [place] [address] documented in this encounter Visit Diagnoses Diagnosis Encounter for laboratory testing for COVID-19 virus documented in this encounter
--- OUTSIDE RECORDS SUMMARY | 2024-07-28 07:40 | XMS_ITS | Encounter Summary ---
Author Organization [facility] Address [address] [place] [address] Care Team Providers Care Early Childhood Education Specialist Name Role Phone Leonardo García MD Primary Care Provider [phone] Encounter Details Date Type Department Care Team (Late st Contact Info) Description 06/29/2024 Lab Requisition [facility] - Main Lab [address] [facility] [place] [address] Chris Barlow MD [address] [place] [address] Encounter for other general examination Social History [...] CBC auto differential (06/29/2024 5:48 AM EST) [facility] Signature WBC 9.9 4.8 - 10.8 K/mcL LAB HEMETOLOGY METHOD 06/29/2024 10:26 AM [facility] RBC 3.60(L) 3.80 - 4.80 M/mcL LAB HEMETOLOGY METHOD 06/29/2024 10:26 AM [facility] Hemoglobin 11.2(L) 11.5 - 16.0 g/dL LAB HEMETOLOGY METHOD 06/29/2024 10:26 AM [facility] Hematocrit 33.3(L) 35.0 - 47.0 % LAB HEMETOLOGY METHOD 06/29/2024 10:26 AM [facility] MCV 93.0 79.0 - 98.0 FL LAB HEMETOLOGY METHOD 06/29/2024 10:26 AM [facility] MCH 31.3 27.0 - 32.0 pcg LAB HEMETOLOGY METHOD 06/29/2024 10:26 AM [facility] MCHC 33.6 32.0 - 37.0 g/dL LAB HEMETOLOGY METHOD 06/29/2024 10:26 AM [facility] RDW 13.8 11.0 - 15.0 % LAB HEMETOLOGY METHOD 06/29/2024 10:26 AM [facility] Platelets 373 130 - 400 K/mcL LAB HEMETOLOGY METHOD 06/29/2024 10:26 AM [facility] MPV 9.4 7.0 - 11.0 FL LAB HEMETOLOGY METHOD 06/29/2024 10:26 AM [facility] NRBC 0.0 <1.0 % LAB HEMETOLOGY METHOD 06/29/2024 10:26 AM [facility] NRBC Absolute 0.00 <0.10 K/mcL LAB HEMETOLOGY METHOD 06/29/2024 10:26 AM [facility] Neutrophils Relative 64.0 % LAB HEMETOLOGY METHOD 06/29/2024 10:26 AM [facility] Lymphocytes Relative 25.2 % LAB HEMETOLOGY METHOD 06/29/2024 10:26 AM [facility] Monocytes Relative 7.8 % LAB HEMETOLOGY METHOD 06/29/2024 10:26 AM [facility] Eosinophils Relative 2.0 % LAB HEMETOLOGY METHOD 06/29/2024 10:26 AM [facility] Basophils Relative 0.4 % LAB HEMETOLOGY METHOD 06/29/2024 10:26 AM [facility] Immature Granulocytes Relative 0.6 % LAB HEMETOLOGY METHOD 06/29/2024 10:26 AM [facility] Neutrophils Absolute 6.31 1.50 - 7.00 K/mcL LAB HEMETOLOGY METHOD 06/29/2024 10:26 AM [facility] Lymphocytes Absolute 2.49 1.00 - 5.00 K/mcL LAB HEMETOLOGY METHOD 06/29/2024 10:26 AM [facility] Monocytes Absolute 0.77 0.20 - 1.00 K/mcL LAB HEMETOLOGY METHOD 06/29/2024 10:26 AM [facility] Eosinophils Absolute 0.20 0.00 - 0.50 K/mcL LAB HEMETOLOGY METHOD 06/29/2024 10:26 AM [facility] Basophils Absolute 0.04 0.00 - 0.20 K/mcL LAB HEMETOLOGY METHOD 06/29/2024 10:26 AM [facility] Immature Granulocytes Absolute 0.06(H) 0.00 - 0.03 K/mcL LAB HEMETOLOGY METHOD 06/29/2024 10:26 AM EST [facility] Blood Venous blood specimen / Unknown Venipuncture / Unknown 06/29/2024 5:48 AM EST 06/29/2024 8:27 AM EST Chris Barlow MD LAB BLOOD ORDERABLES Final Resu lt Performing Organization Address City/[facility]/ZIP Co de Phone Number [facility] [address] [place] [address], [place] [phone] * Magnesium (06/29/2024 5:48 AM EST) [facility] Magnesium 2.2 1.9 - 2.6 mg/dL LAB CHEMISTRY METHOD 06/29/2024 10:10 AM EST [facility] Blood Venous blood specimen / Unknown Venipuncture / Unknown 06/29/2024 5:48 AM EST 06/29/2024 8:27 AM EST us Chris Barlow MD LAB BLOOD ORDERABLES Final Resu lt Performing Organization Address [facility]/ZIP Co de Phone Number [facility] [address] [place] [address], [place] [phone] * (ABNORMAL) Comprehensive metabolic panel (06/29/2024 5:48 AM EST) [facility] Sodium 134 133 - 145 mmol/L LAB [...] 11 LAB CHEMISTRY METHOD 06/29/2024 10:10 AM [facility] Glucose 86 70 - 100 mg/dL LAB CHEMISTRY METHOD 06/29/2024 10:10 AM [facility] BUN 18 5 - 25 mg/dL LAB CHEMISTRY METHOD 06/29/2024 10:10 AM [facility] Creatinine 0.66 0.50 - 1.10 mg/dL LAB CHEMISTRY METHOD 06/29/2024 10:10 AM [facility] eGFR 88 >=60 mL/min/1. 73m2 LAB CHEMISTRY METHOD 06/29/2024 10:10 AM [facility] Comment:Calculation based on the??Chronic Kidney Disease Epidemiology Collaboration (CKD-EPI) equation refit??without adjustment for race. BUN/Creatinine Ratio 27.3 LAB CHEMISTRY METHOD 06/29/2024 10:10 AM [facility] Calcium 8.9 8.5 - 10.5 mg/dL LAB CHEMISTRY METHOD 06/29/2024 10:10 AM [facility] AST (SGOT) 36 10 - 42 unit/L LAB CHEMISTRY METHOD 06/29/2024 10:10 AM [facility] ALT (SGPT) 69(H) 10 - 60 unit/L LAB CHEMISTRY METHOD 06/29/2024 10:10 AM [facility] Alkaline Phosphatase 141(H) 42 - 121 unit/L LAB CHEMISTRY METHOD 06/29/2024 10:10 AM [facility] Total Protein 5.9(L) 6.0 - 8.0 g/dL LAB CHEMISTRY METHOD 06/29/2024 10:10 AM [facility] Albumin 3.2 3.2 - 5.0 g/dL LAB CHEMISTRY METHOD 06/29/2024 10:10 AM [facility] Total Bilirubin 0.8 0.0 - 1.4 mg/dL LAB CHEMISTRY METHOD 06/29/2024 10:10 AM EST [facility] Blood Venous blood specimen / Unknown Venipuncture / Unknown 06/29/2024 5:48 AM EST 06/29/2024 8:27 AM EST us Chris Barlow MD LAB BLOOD ORDERABLES Final Resu lt [facility] [address] [place] [address], documented in this encounter Visit Diagnoses Diagnosis Encounter for other general examination documented in this encounter Additional Health Concerns Infection Onset Date Last Indicated Resolved Time Respiratory Rule-Out 07/26/2024 07/26/2024 025 3:02 AM EST COVID-19 Rule-Out 07/26/2024 07/26/2024 07/26/2024 3:02 AM EST documented as of this encounter Care Teams Early Childhood Education Specialist Relationship Specialty Start Date End Date Leonardo García MD [address] [place] [id number] PCP - General Internal Medicine 06/30/24 documented as of this encounter
--- OUTSIDE RECORDS SUMMARY | 2024-07-28 07:40 | XMS_ITS | Encounter Summary ---
Author Organization [facility] Address [address] [place] [address] Care Team Providers Care Family Practice Nurse Practitioner Name Role Phone Leonardo García MD Primary Care Provider [phone] Reason for Visit * Reason Comments Abnormal Labs * Auth/Cert (Routine) Specialty Diagnoses / Procedures Referred By Contac t Referred To Contact Diagnoses Hypokalemia Elevated LFTs Colon wall thickening Elevated liver transaminase level Procedures [facility] IP/OBS CARE INITIAL MODERATE LEVEL PER DAY . Jomar Booth MD [address] [place] [id number] Phone: tel: fax: [facility] Unit [address] [place] [phone] Phone: tel: Referral ID Status Reason Start Date Expiration Date Visits Re quested Visits Authorized [id number] 1 1 Encounter Details Date Type Department Care Team (Latest Contact Info) Description 07/25/2024 11:18 AM EST - 07/27/2024 1:30 PM EST Hospital Encounter [facility] [address] [place] [phone] Jomar Booth MD [address] [place] [address] Tammie Lewis MD [address] [place] [id number] Hypokalemia (Primary Dx); Colon wall thickening; Elevated liver transaminase level Discharge Disposition: Fdc Facility Social History Tobacco Use Types Packs/Day Years Used Date Smoking Tobacco: Former Cigarettes Q uit: 06/04/1961 Smokeless Tobacco: Never Alcohol Use Standard Drinks/Week Comments Yes 1 (1 standard drink = 0.6 oz pur e alcohol) Interpersonal Safety Answer Date Record ed Physical Abuse 07/25/2024 Verbal Abuse 07/25/2024 Comments Unknown Sex and Gender Information Value Date Recorded Sex Assigned at Not on file Legal Sex Female 10:07 PM EST Gender Identity Not on file Sexual Orientation Not on file documented as of this encounter Last Filed Vital Signs Vital Sign Reading Time Taken Comments Blood Pressure 149/73 07/27/2024 7:45 AM EST Pulse 69 07/27/2024 7:45 AM EST Temperature 36.5 ??C (97.7 ??F) 07/27/2024 7:45 AM ES T Respiratory Rate 14 07/27/2024 7:45 AM EST Oxygen Saturation 92% 07/27/2024 7:45 AM EST Inhaled Oxygen Concentration - - Weight 74.8 kg (165 lb) 07/25/2024 11:27 AM EST Height 162.6 cm (5' 4 ) 07/25/2024 11:27 AM EST Body Mass Index 28.32 07/25/2024 11:27 AM EST documented in this encounter Discharge Summaries * DICKSON Zhu - 07/27/2024 11:43 AM EST Date of admission 07/25/2024 Date of discharge 07/27/2024 Disposition: SNF Discharge Final Diagnosis: Elevated LFTs Hospital Course: From HPI: Mrs. Barrera is an 84-year-old female with PMH CVA, GERD, HTN, HLD, recent UTI on levaquin seen today for complaint of abnormal lfts. She had no complaints during my interview including dizziness, chest pain, shortness of breath, nausea, vomiting, abdominal pain, diarrhea. She was able to answer orientation questions appropriately with exception that she thought she was [facility] instead of [facility]. She did not want to converse much and did not respond when asked about medication. She currently resides at [facility]. Vitals are as follows: Temperature of 36.5, heart rate of 90, respirate of 16, blood pressure 156/76 and pulse ox of 95% on room air. Labs notable for K of 2.9, ast of 328, alt of 693, alk phos of 1054, total biliribuin 2.2, direct 2.2, indirect 1.4, lactate 1.2, cbc wnl, hepatitis panel negative, urine appears to be a dirty sample with greater than [address] A/P showed colonic thickening consistent with ischemia, infection or inflammation, f/up colonoscopy recommended to excluded underlying neoplasm, hiatal hernia. Patient was given potassium IV and po in the ED. Patient will be transferred to the care of [facility] staff for further management of their elevated lfts with concern for cholangiocarcinoma. Transaminitis Hyperbilirubinemia: Upon arrival to the ED AST 328 ALT 693 ALP 1054. Total bilirubin 2.2, direct 1.4. Tylenol level was less than 2. INR 1.0. Hepatitis panel negative. CT abdomen and pelvis showed colonic thickening and hiatal hernia. Right upper quadrant ultrasound showed borderline gallbladder wall thickening without stones. MRCP was negative for any biliary ductal dilation liver appeared within normal limits. Statin and amantadine were held. LFTs are downtrending most recently AST 115 ALT 362 ALP 912 with total bilirubin 1.0 on 07/27. In rare instances amantadine can cause elevated liver enzymes. This is her only new medication (prescribed 07/15 for 30-day course). I suspect her transaminitis is due to amantadine and recommend discontinuation of amantadine. Continue to hold statin until LFTs close to baseline. Repeat LFTs in 3 days at [facility]. Avoid hepatotoxins. As for question of colitison CT she is without any lower abdominal pain, diarrhea, fever. Lactate was WNL 1.2. Low suspicion for colitis. Plan is for her to transfer back to [facility] on 07/27. Hypokalemia: Potassium on arrival was 2.9. Replaced. Repeat potassium is stable 3.6 on 07/27. History of CVA: Continues on aspirin 81 mg daily. Statin remains on hold due to transaminitis. OnceLFTs close to baseline can resume with close LFT monitoring. GERD: Continue PPI Hypertension: Amlodipine was increased from 2.5 to 5 mg daily Test Results Pending At Discharge: Pending Labs Order Current Status Culture urine Preliminary result Outpatient Follow-Up Care: No future appointments. Discharge Medication List: Your medication list CHANGE how you take these medications Instructions Last Dose Given Next Dose Due amLODIPine 2.5 mg tablet Commonly known as: NORVASC What changed: how much to take Take 2 tablets (5 mg total) by mouth 1 (one) time each day. atorvastatin 80 mg tablet Commonly known as: LIPITOR What changed: additional instructions Take 1 tablet (80 mg total) by mouth 1 (one) time each day. HOLD THIS MEDICATION UNTIL LIVER FUNCTION TESTS IMPROVE AND YOU ARE INSTRUCTED TO RESUME CONTINUE taking these medications Instructions Last Dose Given Next Dose Due aspirin 81 mg chewable tablet Chew 1 tablet (81 mg total) 1 (one) time each day at the same time. baclofen 10 mg tablet Commonly known as: LIORESAL Take 1 tablet (10 mg total) by mouth 2 (two) times a day if needed for muscle spasms. docusate sodium 100 mg capsule Commonly known as: COLACE Take 1 capsule (100 mg total) by mouth 2 (two) times a day if needed for constipation. omeprazole [address] capsule Commonly known as: PriLOSEC Take 1 capsule (40 mg total) by mouth 1 (one) time each day at the same time. oxyCODONE 5 mg immediate release tablet Commonly known as: ROXICODONE Take 1 tablet (5 mg total) by mouth every 4 (four) hours if needed for severe pain. Max Daily Amount: 30 mg STOP taking these medications amantadine 10 mg/mL solution Commonly known as: SYMMETREL Where to Get Your Medications Information about where to get these medications is not yet available Ask your nurse or doctor about these medications amLODIPine 2.5 mg tablet atorvastatin 80 mg tablet Patient Condition and Disposition at Time of Discharge: Patient was seen and examined this morning at bedside. She continues to deny any abdominal pain, nausea or vomiting No chest pain, shortness of breath, diarrhea Has been afebrile Tolerating diet Vitals: 07/27/24 0745 BP: (!) 149/73 Pulse: 69 Resp: 14 Temp: 36.5 ??C (97.7 ??F) SpO2: 92% Physical Exam General Exam: Age-appropriate female, awake, calm, cooperative, lying in the hospital bed in no acute distress. Skin Exam: Warm, dry and intact without diaphoresis. No rashes appreciated. HEENT exam: Head appears atraumatic. No scleral icterus. Respiratory Exam: Clear to auscultation bilaterally. Cardiovascular Exam: Regular rate and rhythm. Gastrointestinal Exam: Abdomen is soft, nontender, and nondistended. Bowel sounds appreciated. Musculoskeletal Exam: No lower extremity edema is appreciated. Neurological Exam: Alert and oriented to person, [facility] and 2024 Psychiatric: Stable mood and affect. Lab Results Component Value Date WBC 6.6 07/27/2024 HGB 11.8 07/27/2024 HCT 36.3 07/27/2024 MCV 94.5 07/27/2024 PLT 300 07/27/2024 Lab Results Component Value Date GLUCOSE 110 (H) 07/27/2024 CALCIUM 9.4 07/27/2024 NA 137 07/27/2024 K 3.6 07/27/2024 CO2 29 07/27/2024 CL 103 07/27/2024 BUN 10 07/27/2024 CREATININE 0.49 (L) 07/27/2024 MR Abdomen wo and w Contrast MRCP Final Result 1. As seen by CT, no evidence of biliary ductal dilatation to indicate cholangiocarcinoma. Negative evaluation of the liver. 2. Hiatal hernia. This document has been electronically signed by: Janice Chaparro MD on 07/26/2024 15:28:50 US Abdomen Limited Final Result Impression: Borderline gallbladder wall thickening without stones Consider hepatobiliary scan if cholecystitis suspected This document has been electronically signed by: Qamar Sepulveda MD on 07/26/2024 01:02:43 CT Abdomen Pelvis w Contrast Final Result 1. Colonic thickening, consistent with ischemia, infection, or inflammation. Follow-up colonoscopy is recommended to exclude underlying neoplasm. 2. Hiatal hernia. This document has been electronically signed by: Janice Chaparro MD on 07/25/2024 17:55:43 Recent Results (from the past week) Culture urine Collection Time: 07/25/24 7:41 PM Specimen: Urine, Clean Catch Result Value Ref Range Culture, Urine 50,000-100,000 CFU/mL Gram negative bacilli (A) Respiratory virus panel molecular study Collection Time: 07/26/24 2:05 AM Specimen: Naris, Right; Swab Result Value Ref Range Adenovirus Detection by PCR Not Detected Not Detected Influenza A PCR Not Detected Not Detected Influenza B PCR Not Detected Not Detected Coronavirus 229E Not Detected Not Detected Coronavirus HKU1 Not Detected Not Detected Coronavirus OC43 Not Detected Not Detected Coronavirus NL63 Not Detected Not Detected Parainfluenza Virus 1 Not Detected Not Detected Parainfluenza Virus 2 Not Detected Not Detected Parainfluenza Virus 3 Not Detected Not Detected Parainfluenza Virus 4 Not Detected Not Detected RSV PCR Not Detected Not Detected Human Metapneumovirus A and B Not Detected Not Detected Rhinovirus/Enterovirus Not Detected Not Detected Bordetella pertussis Not Detected Not Detected Bordetella parapertussis Not Detected Not Detected Mycoplasma pneumo by PCR Not Detected Not Detected Chlamydia pneumoniae Not Detected Not Detected SARS COV-2 Not Detected Not Detected Total time spent performing chart review, assessing the patient, documenting, discussing with attending MD/bedside RN/ICC, updating family, arranging care and performing a high level of medical decision making approximately 40 minutes. Case discussed with Dr. Lewis. Cosigned by Tammie Lewis MD at 07/27/2024 12:44 PM EST Associated attestation - Tammie Lewis MD - 07/27/2024 12:44 PM EST This is a split/shared visit with DICKSON Zhu. I personally performed the medical decision making (MDM) for the care of this patient on 07/27/24 as documented below Patient seen and examined on the date of service, discussed with Jeannie FORMAN regarding plan of care. All diagnostics and imaging was reviewed by me directly. Agree with assessment and plan as outlined below. Hold Amantadine for now - new meds MRI negative, abd exam benign Recheck LFT in few days to ensure trending down Tammie Lewis MD 07/27/24 12:42 PM EST documented in this encounter Medications at Time of Discharge amLODIPine (NORVASC) 2.5 mg tablet Take 2 tablets (5 mg total) by mouth 1 (one) time each day. 07/27/2024 atorvastatin (LIPITOR) 80 mg tablet Take 1 tablet (80 mg total) by mouth 1 (one) time each day. HOLD THIS MEDICATION UNTIL LIVER FUNCTION TESTS IMPROVE AND YOU ARE INSTRUCTED TO RESUME 07/27/2024 aspirin 81 mg chewable tablet Chew 1 tablet (81 mg total) 1 (one) time each day at the same time. 07/19/2024 baclofen (LIORESAL) 10 mg tablet Take 1 tablet (10 mg total) by mouth 2 (two) times a day if needed for muscle spasms. 07/18/2024 docusate sodium (COLACE) 100 mg capsule Take 1 capsule (100 mg total) by mouth 2 (two) times a day if needed for constipation. omeprazole (PriLOSEC) [address] capsule Take 1 capsule (40 mg total) by mouth 1 (one) time each day at the same time. 07/19/2024 oxyCODONE (ROXICODONE) 5 mg immediate release tablet Take 1 tablet (5 mg total) by mouth every 4 (four) hours if needed for severe pain. Max Daily Amount: 30 mg documented as of this encounter Ordered Prescriptions Prescription Sig Dispense Quantity Refills Last Filled Start Date End Date amLODIPine (NORVASC) 2.5 mg tablet Take 2 tablets (5 mg total) by mouth 1 (one) time each day. 07/27/2024 atorvastatin (LIPITOR) 80 mg tablet Take 1 tablet (80 mg total) by mouth 1 (one) time each day. HOLD THIS MEDICATION UNTIL LIVER FUNCTION TESTS IMPROVE AND YOU ARE INSTRUCTED TO RESUME 07/27/2024 documented in this encounter Discharge Disposition Disposition Code Departure Means Destination Comment s Fdc Facility documented in this encounter Progress Notes * Luna Miller RN - 07/27/2024 3:34 PM EST 07/27/24 1534 Transportation Transportation at discharge [facility] providing transportation [place] What day is the transport expected? 07/27/24 What time is the transport expected? 1330 Final Discharge Disposition Fdc Facility Pt returned to [facility]. Pt's daughter notified of d/c and agreed with plan * Amber Varela - 07/27/2024 1:30 PM EST SPIRITUAL CARE Date/Time:07/27/24 at 1:30 PM EST Type of Visit: Initial Visit and Anthropology Lecturer Rounding Reason for Visit: Spiritual/Emotional Support and Spiritual Assessment Time Spent: 15 Minutes Location: [address] [place] [address] Sacramental Encounters: Sacrament of Sick-Anointing: Anointed Spiritual Distress Assessment: Spiritual Distress Assessment at beginning of visit Meaning - Overall Life Balance: No evidence of unmet spiritual need Transcendence: No evidence of unmet spiritual need Values - Acknowledgement: No evidence of unmet spiritual need Values - Control: No evidence of unmet spiritual need Psycho-Social Identity: No evidence of unmet spiritual need SDAT Beginning of Visit Average Score: 0 Spiritual Distress Assessment at end of visit Meaning - Overall Life Balance: No evidence of unmet spiritual need Transcendence: No evidence of unmet spiritual need Values - Acknowledgement: No evidence of unmet spiritual need Values - Control: No evidence of unmet spiritual need Psycho-Social Identity: No evidence of unmet spiritual need SDAT End of Visit Average Score: 0 Spiritual Assessment/Distress Spiritual Care Assessment: Assessment: Corrinne, was awake, alert, lying and resting in bed at the time of visit. Patient observer present in the room. Voiced having and good night sleep and rest. Raised no concern. Thankful for family support and quality of care given and caregivers. Holley sikhism is Rastafarian. Voiced desire to receive anointing of the sick. Prayed for recovery and good health. Thankful for the visit and support. Intervention: NE Spiritual Care Interventions : provided support, explored hope, listened empathically, and provided prayer Outcomes: expressed gratitude and expressed peace Plan of Care: Visit as needed *Reference: Spiritual Distress Assessment Tool: The SDAT is a clinical tool used by chaplains to identify unmet spiritual and emotional needs that can impact Goals of Care in the following categories: Spiritual Distress Assessment Legend Spiritual Needs Related Questions Meaning Are you having difficulties coping with what is happening to your now? Does your hospitalization have any repercussions on the way you live usually? Transcendence Do you have a particular sikhism, holley, or spirituality? Is your sikhism/spirituality/holley challenged by what is happening to you now? Values Do you think that the health professionals caring for you know you well enough? Do you feel that you are participating in the decisions made about your care? Psycho-Social Identity Do you have any worries or difficulties regarding your family or other persons close to you? Do you feel lonely? Do you have links to your holley community? SCALE 0= no evidence of unmet spiritual needs 1= some evidence of unmet spiritual needs 2= substantial evidence of unmet spiritual needs 3= evidence of severe unmet spiritual needs * Valerie Tolentino RN - 07/27/2024 6:50 AM EST Goals: Clinical Goals for the Shift: to get a good nights sleep Identify possible barriers to meeting goals/advancing plan of care: Stability of the patient: Moderately Stable - Low risk of patient condition declining or worsening End of Shift Summary: Pt is alert. Slept at night, no complain of pain. Will continue to monitor. * DICKSON Zhu - 07/26/2024 2:27 PM EST Subjective Patient was seen and examined this morning at bedside She denies any abdominal pain, nausea, vomiting, chest pain, shortness of breath Denies dizziness or diarrhea Per RN, was impulsive earlier, trying to get out of bed Objective Physical Exam General Exam: Age-appropriate female, awake, calm, cooperative, lying in the hospital bed in no acute distress. Skin Exam: Warm, dry and intact without diaphoresis. No rashes appreciated. HEENT exam: Head appears atraumatic. No scleral icterus. Respiratory Exam: Clear to auscultation bilaterally. Cardiovascular Exam: Regular rate and rhythm. Gastrointestinal Exam: Abdomen is soft, nontender, and nondistended. Bowel sounds appreciated. Musculoskeletal Exam: No lower extremity edema is appreciated. Neurological Exam: Alert and oriented to person, [facility] and 2024 Psychiatric: Stable mood and affect. Last Recorded Vitals: Blood pressure (!) 152/75, pulse 74, temperature 36.7 ??C (98.1 ??F), resp. rate 14, height 1.626 m(64 ), weight 74.8 kg (165 lb), SpO2 97%. Medications: amLODIPine, 2.5 mg, oral, Daily aspirin, 81 mg, oral, q24h gadoterate meglumine, 15 mL, intravenous, Once in imaging pantoprazole, 40 mg, oral, q AM AC sodium chloride, 10 mL, intravenous, BID PRN medications: baclofen, ibuprofen, ondansetron (ZOFRAN-ODT) disintegrating tablet OR ondansetron, polyetheylene glycol, prochlorperazine OR prochlorperazine OR prochlorperazine, Insertperipheral IV AND Maintain IV access AND Saline lock IV AND sodium chloride AND sodium chloride Lab Results Component Value Date WBC 5.7 07/26/2024 HGB 12.5 07/26/2024 HCT 38.3 07/26/2024 MCV 93.9 07/26/2024 PLT 308 07/26/2024 Lab Results Component Value Date GLUCOSE 103 (H) 07/26/2024 CALCIUM 9.4 07/26/2024 NA 138 07/26/2024 K 3.4 (L) 07/26/2024 CO2 28 07/26/2024 CL 103 07/26/2024 BUN 10 07/26/2024 CREATININE 0.62 07/26/2024 US Abdomen Limited Final Result Impression: Borderline gallbladder wall thickening without stones Consider hepatobiliary scan if cholecystitis suspected This document has been electronically signed by: Qamar Sepulveda MD on 07/26/2024 01:02:43 CT Abdomen Pelvis w Contrast Final Result 1. Colonic thickening, consistent with ischemia, infection, or inflammation. Follow-up colonoscopy is recommended to exclude underlying neoplasm. 2. Hiatal hernia. This document has been electronically signed by: Janice Chaparro MD on 07/25/2024 17:55:43 MR Abdomen wo and w Contrast MRCP (Results Pending) Assessment/Plan This is an 84-year-old female with a past medical history of CVA, GERD, hypertension, hyperlipidemia, or recent UTI on Levaquin who presented to the ED due to abnormal LFTs. On arrival to the ED she was hypertensive but otherwise hemodynamically stable. Lab workup showed hypokalemia with potassium 2.9, transaminitis with mild hyperbilirubinemia. Viral panel was negative. UA showed possible infection. CT abdomen and pelvis showed colonic thickening and hiatal hernia. Abdomen ultrasound showed borderline gallbladder wall thickening without stones. She was admitted to the medical service for further management. Transaminitis Hyperbilirubinemia Upon arrival to the ED AST 328 ALT 693 ALP 1054. Total bilirubin 2.2, direct 1.4 Tylenol level less than 2 INR 1.[address] abdomen/ultrasound results as above On 07/26 LFTs downtrending with AST 196 ALT 538 ALP 986. Total bilirubin 1.5 --MRCP --Trend LFTs --Hold statin, amantadine -- Avoid other hepatotoxins Hypokalemia Potassium on arrival 2.9. Replaced. Repeat potassium 3.4 on 07/26 --KCl replacement --BMP in a.m. History of CVA -- Continue aspirin 81 mg daily -- Hold statin due to transaminitis GERD -- Continue PPI Hypertension SBP 130s to 150s on 07/26 --Continue amlodipine 2.5 mg p.o. daily CODE STATUS: Full code DVT prophylaxis: SCDs Emergency contact is the patient's daughter, Yamel [phone] and Cassandra [phone]. Family updated at bedside by attending MD today. Total time spent performing chart review, assessing the patient, documenting, discussing with attending MD/bedside RN/ICC, updating family, arranging care and performing a high level of medical decision making approximately 40 minutes. Case discussed with Dr. Lewis Cosigned by Tammie Lewis MD at 07/26/2024 3:33 PM EST Associated attestation - Tammie Lewis MD - 07/26/2024 3:33 PM EST This is a split/shared visit with DICKSON Zhu. I personally performed the medical decision making (MDM) for the care of this patient on 07/26/24 as documented below Patient seen and examined on the date of service, discussed with Jeannie FORMAN regarding plan of care. All diagnostics and imaging was reviewed by me directly. . Time spent was reviewing imaging, evaluating the patient, and discussing care with patient and family Agree with assessment and mary outlined below. Patient without any signs or symptoms, no abdominal pain no nausea or vomiting. Has been on Tylenol postsurgery for pain control. No other recent changes in medications per patient's daughter. Denies having any recent viral illnesses. Abdomen exam is benign, nontender. LFT trending down. No evidence of acute obstruction noted on CAT scan. Await MRI. Recheck LFTs in a.m., if trending down plan likely DC back to rehab facility. Tammie Lewis MD 07/26/24 3:32 PM EST * Luna Miller RN - 07/26/2024 1:36 PM EST 07/26/24 1336 Initial Transition Plan Initial Transition Plan Inpatient Rehab Discharge Planning Living Arrangements Other (Comment) Type of Residence long-term Care Facility Name [facility] Assistive Devices Walker Support Systems Children;Immediate family;Friends Medication Coverage Has Med Coverage Under Insurance Plan Yes Medication Affordability No concerns related to payment for meds Anticipated Discharge Needs Discipline following for SNF placement Seasonal ClerkDomestic Violence Advocate Transportation at discharge Ambulance [facility] met with pt and daughter Cassandra at bedside. Daughter Cassandra confirmed that pt was recently at respite at the [facility] and had a fall. Pt has since been at [facility] for rehab. Plan is to return to facility, referral placed. HCP on file * Magui Ruff RN - 07/26/2024 1:08 PM EST Goals: Clinical Goals for the Shift: to get a good nights sleep Identify possible barriers to meeting goals/advancing plan of care: Stability of the patient: Moderately Stable - Low risk of patient condition declining or worsening End of Shift Summary: VSS. Patient verbalizes understanding of NPO status due to test today. Patient cooperative with care. * Yudy Tanner RN - 07/26/2024 3:32 AM EST Goals: Clinical Goals for the Shift: to get a good nights sleep Identify possible barriers to meeting goals/advancing plan of care: multiple orders/imaging/labs, interrupting pts sleep Stability of the patient: Moderately Stable - Low risk of patient condition declining or worsening End of Shift Summary: alert and pleasantly confused, from [facility], viral panel negative, abd U/S complated, pt awaiting MRCP * Nina Crocker RN - 07/25/2024 9:27 PM EST ED RN HANDOFF (All Lui Below Must Be Completed) Reason/Diagnosis for Admission: Type of Admission: [x] Medsurg, [] Telemetry Already in a Hospital Bed: [] Yes / [x] No Room Considerations/Precautions (ex: fever, diarrhea, or any infectious concerns): [] Yes / [x] No Optometric Coordinator: [] Yes / [x] No If YES, Cardiac Rhythm: [] NSR, [] SB, [] ST, [] A-FIB, [] A-Flutter, [] Pacemaker, [] 1st Degree HB, [] 2nd Degree HB, [] 3rd Degree HB Reason for Optometric Coordinator: VS: Visit Vitals BP (!) 186/99 (BP Location: Left arm, Patient Position: Lying) Pulse 70 Temp 36.5 ??C (97.7 ??F) (Oral) Resp 18 Ht 1.626 m (64 ) Wt 74.8 kg (165 lb) SpO2 99% BMI 28.32 kg/m?? Smoking Status Former BSA 1.8 m?? Current Mental Status: A/O x [x]4, []3, []2, []1 Current Ambulation Status: UNK IV Access: [x] Yes / [] No Field IV present: [] Yes / [x] No Hx of Violence: [] Yes / [x] No / [] Unknown Fall Risk:[] Yes / [x] No Yellow Bracelet Applied [] Yes / [] No Yellow Socks Applied [] Yes / [] No Patient Belongings inventoried and BL completed: [] Yes / [x] No Patient belongings stored in the security closet: [] Yes (If Yes please supply Security bag #): [x] No Patient Medications stored in Pharmacy: [] Yes (If Yes please supply Medication Security bag #): [x] No ED Summary of Care: ADMIT FOR ELEVATED LFTs Submitted by and Phone Extension: NINA Hodgson RN * Nina Crocker RN - 07/25/2024 7:02 PM EST DAUGHTER CASSANDRA REQUESTS TO BE CALLED FIRST. SISTER WHO IS PROXY IS ALSO IN HOSPITAL. TEL: [phone] OKAY TO CALL ANYTIME. Nina Crocker RN 07/25/24 5621 * Tayo Gomez RN - 07/25/2024 11:24 AM EST ANDREAA from [facility] with concerns of increased liver panel. Patient complaining of dizziness, and abdominal pain. ? Biliary obstruction. Fsbg 46 for EMS * Bella Smith RN - 07/25/2024 11:[address] Perez from [facility] called and states send the pt in for ? Biliary obstruction, jaundice. States to call with any questions [phone] or cell # [phone] Bella Smith RN 07/25/24 7910 * DICKSON Naranjo - 07/25/2024 11:12 AM EST Emergency Medicine Note Patient Name: Crystal Barrera Initial Evaluation: 07/25/2024 : 1940 Patient's PCP: Leonardo García MD Emergency Physician: DICKSON Naranjo History of Present Illness Chief Complaint: Chief Complaint Patient presents with Abnormal Labs This is an 84-year-old female with a past medical history of gastroesophageal reflux disease, hypertension, appendectomy, hyperlipidemia and recent treatment of UTI with Levaquin on July 18 presenting from [facility] evaluation of increased liver function tests. Specific laboratory results of concern are not available. Upon evaluation the patient has no specific physical complaints at this time. ROS: I have performed a ROS with the pertinent positives and negatives documented in the history ofpresent illness. 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;COMMENT:Treated x 1 year Rosacea DX:Rosacea Seasonal allergies DX:Seasonal allergies Past Surgical History: Procedure Laterality Date APPENDECTOMY PROCEDURE:APPENDECTOMY AUTOGRAFT/SPINE SURGERY Left 08/30/2017 PROCEDURE:AUTOGRAFT/SPINE SURGERY;COMMENT:Procedure: AUTOGRAFT BONE SPINE; Surgeon: Emeka Lopez MD; Location: [facility]PER[facility] RO[facility]; Service: Spine; Laterality: Left; BACK SURGERY PROCEDURE:BACK SURGERY CATARACT EXTRACTION W/ INTRAOCULAR LENS IMPLANT PROCEDURE:CATARACT EXTRACTION W/ INTRAOCULAR LENS IMPLANT DENTAL SURGERY PROCEDURE:DENTAL SURGERY;COMMENT:wisdom teeth LUMBAR FUSION Bilateral Posterior 08/30/2017 PROCEDURE:LUMBAR FUSION;COMMENT:Procedure: L4 - 5 FUSION SPINE LUMBAR POSTERIOR, INSTRUMENTED ARTHRODESIS; Surgeon: Emeka Lopez MD; Location: [facility]; Service: Spine; Laterality:Bilateral Posterior; LUMBAR LAMINECTOMY Bilateral Posterior 08/30/2017 PROCEDURE:LUMBAR LAMINECTOMY;COMMENT:Procedure: L4, L5 LAMINECTOMY DECOMPRESSION; Surgeon: Emeka Lopez MD; Location: [facility]; Service: Spine; Laterality: Bilateral Posterior; ROTATOR CUFF REPAIR 2013 PROCEDURE:ROTATOR CUFF REPAIR TONSILLECTOMY PROCEDURE:TONSILLECTOMY TOTAL HIP ARTHROPLASTY Left 02/16/2022 PROCEDURE:TOTAL HIP ARTHROPLASTY;COMMENT:Procedure: REPLACEMENT TOTAL HIP; Surgeon: Ottoniel Wells MD; Location: [facility] ([facility] Service: Orthopedics; Laterality: Left; TOTAL KNEE ARTHROPLASTY Left 01/03/2021 PROCEDURE:TOTAL KNEE ARTHROPLASTY Social History Tobacco Use Smoking status: Former Current packs/day: 0.00 Types: Cigarettes Quit date: 06/04/1961 Years since quittin.1 Smokeless tobacco: Never Substance Use Topics Alcohol use: Yes Alcohol/week: 1.0 standard drink of alcohol Drug use: No No family history on file. has No Known Allergies. No current facility-administered medications on file prior to encounter. No current outpatient medications on file prior to encounter. Physical Exam ED Triage Vitals [07/25/24 1127] Temp Heart Rate Resp BP 36.5 ??C (97.7 ??F) 90 16 (!) 156/76 SpO2 Temp Source Heart Rate Source Patient Position 95 % Oral Monitor Lying BP Location FiO2 (%) Left arm -- Physical Exam General: awake, calm, cooperative, no apparent distress, vital signs reviewed Skin: warm, dry, no diaphoresis, no overt jaundice Eyes: EOMI, no photophobia, no nystagmus, no icterus ENT: mucosa is moist, throat is clear Respiratory: clear to auscultation bilaterally throughout Cardiovascular: regular rate and rhythm, no murmur Gastrointestinal: soft, mild epigastric tenderness without guarding, abdomen is nondistended, normal active bowel sounds Musculoskeletal: patient able to move all four extremities, extremities are warm and well-perfused Neurological: alert and oriented to self and hospital , no focal deficits Psychiatric: stable mood and affect, fluid speech, good eye contact and appropriate demeanor Results Labs Reviewed COMPREHENSIVE METABOLIC PANEL - Abnormal Result Value Sodium 140 Potassium 2.9 (*) Chloride 103 CO2 28 Anion Gap 9 Glucose 101 (*) BUN 10 Creatinine 0.62 eGFR 89 BUN/Creatinine Ratio 16.1 Calcium 9.3 AST (SGOT) 328 (*) ALT (SGPT) 693 (*) Alkaline Phosphatase 1,054 (*) Total Protein 6.6 Albumin 3.4 Total Bilirubin 2.2 (*) BILIRUBIN DUPLICATE PROCEDURE TO ORDER - Abnormal Total Bilirubin 2.2 (*) Bilirubin, Direct 1.4 (*) Bilirubin, Indirect 0.8 ACETAMINOPHEN LEVEL - Abnormal Acetaminophen Level <2.0 (*) POCT GLUCOSE, BLOOD - Abnormal Glucose POCT 177 (*) PROTHROMBIN TIME WITH INR - Normal Protime 13.1 INR 1.0 LIPASE - Normal Lipase 21 LACTATE - Normal Lactate 1.2 HEPATITIS PANEL, ACUTE WITH REFLEX TO CONFIRMATION - Normal Hepatitis B Surface Ag Negative Hepatitis A Antibody IgM Negative Hep B Core IgM Negative Hepatitis C Antibody Negative CBC AND DIFFERENTIAL Narrative: The following orders were created for panel order CBC and differential. Procedure Abnormality Status --------- ------ CBC auto differential[[id number]] Final result Please view results for these tests on the individual orders. CBC WITH AUTO DIFFERENTIAL WBC 6.1 RBC 3.90 Hemoglobin 12.3 Hematocrit 36.7 MCV 93.1 MCH 31.2 MCHC 33.5 RDW 13.9 Platelets 321 MPV 10.4 NRBC 0.0 NRBC Absolute 0.00 Neutrophils Relative 60.8 Lymphocytes Relative 23.2 Monocytes Relative 9.4 Eosinophils Relative 5.9 Basophils Relative 0.5 Immature Granulocytes Relative 0.2 Neutrophils Absolute 3.70 Lymphocytes Absolute 1.41 Monocytes Absolute 0.57 Eosinophils Absolute 0.36 Basophils Absolute 0.03 Immature Granulocytes Absolute 0.01 URINALYSIS WITH REFLEX MICROSCOPIC AND CULTURE Narrative: The following orders were created for panel order Urinalysis with reflex microscopic and culture. Procedure Abnormality Status --------- ------ Urinalysis with reflex m...[[id number]] In process Jay urine culture tube[[id number]] In process Please view results for these tests on the individual orders. URINALYSIS WITH REFLEX MICROSCOPIC AND CULTURE Abnormal Labs Reviewed COMPREHENSIVE METABOLIC PANEL - Abnormal; Notable for the following components: Result Value Potassium 2.9 (*) Glucose 101 (*) AST (SGOT) 328 (*) ALT (SGPT) 693 (*) Alkaline Phosphatase 1,054 (*) Total Bilirubin 2.2 (*) All other components within normal limits BILIRUBIN DUPLICATE PROCEDURE TO ORDER - Abnormal; Notable for the following components: Total Bilirubin 2.2 (*) Bilirubin, Direct 1.4 (*) All other components within normal limits ACETAMINOPHEN LEVEL - Abnormal; Notable for the following components: Acetaminophen Level <2.0 (*) All other components within normal limits POCT GLUCOSE, BLOOD - Abnormal; Notable for the following components: Glucose POCT 177 (*) All other components within normal limits CT Abdomen Pelvis w Contrast Final Result 1. Colonic thickening, consistent with ischemia, infection, or inflammation. Follow-up colonoscopy is recommended to exclude underlying neoplasm. 2. Hiatal hernia. This document has been electronically signed by: Janice Chaparro MD on 07/25/2024 17:55:43 I have discussed the incidental/abnormal imaging and/or lab abnormalities with the patient and haveinstructed them the need for further evaluation and workup with their primary care doctor. The laboratory results, imaging results and other diagnostic exam results were reviewed in the EMR. EKG Interpretation Critical Care Time None ? Differential Diagnosis Elevated LFTs Cholelithiasis Acetaminophen toxicity Malignancy Choledocholithiasis Medical Decision Making Patient is evaluated. Blood glucose is reevaluated bedside. Laboratories are pending at this time. Medications potassium chloride 10 mEq/100 mL IVPB 10 mEq (10 mEq intravenous New Bag 07/25/242039) potassium chloride (KLOR-CON) packet 40 mEq (40 mEq oral Given 07/25/241803) iopamidoL (ISOVUE-370) 370 mg iodine /mL (76 %) injection 100 mL (90 mL intravenous Given 07/25/241725) sodium chloride 0.9 % flush 10 mL (10 mL intravenous Given 07/25/241725) ED Course as of 07/25/242050Jul 25, 2024 1603 Patient's laboratories reveal hypokalemia which will be repleted IV and p.o. as well as elevated transaminases. Given that this patient has no significant right upper quadrant tenderness, CT imaging will be obtained. The patient's daughter, Cassandra is now bedside and states that her mother has been at [facility] for approximately 10 days after having spinal fusion performed at [facility] on June [address] Shaw. [RO] 6116 CT imaging reveals colonic thickening, consistent with ischemia, infection, or inflammation. Follow-up colonoscopy is recommended to exclude underlying neoplasm. Patient denies having any previous colonoscope performed. [RO] ED Course User Index [RO] DICKSON Naranjo Clinical Impressions as of 07/25/242050 Hypokalemia Colon wall thickening Elevated liver transaminase level Procedures Procedures Diagnosis 1. Hypokalemia 2. Colon wall thickening 3. Elevated liver transaminase level Disposition Admit to Inpatient ED Prescriptions None Physician Attestation DCIKSON Naranjo 07/25/24 1149 DICKSON Naranjo 07/25/24 1831 DICKSON Naranjo 07/25/242050 Cosigned by Chidi Klein MD at 07/26/2024 9:24 AM EST documented in this encounter H&P Notes * DCIKSON Alvarez - 07/25/2024 10:41 PM EST Images from the original note were not included. [facility] HISTORY AND PHYSICAL Please contact author [DICKSON Alvarez] via [employer]. Patient: Crystal Barrera Admission Date/Time: 07/25/2024 11:18 AM : 1940 [84 y.o.] Patient's PCP: Leonardo García MD Attending Provider: Jomar Booth MD CHIEF COMPLAINT Abnormal lfts HISTORY OF PRESENT ILLNESS Mrs. Barrera is an 84-year-old female with PMH CVA, GERD, HTN, HLD, recent UTI on levaquin seen today for complaint of abnormal lfts. She had no complaints during my interview including dizziness, chest pain, shortness of breath, nausea, vomiting, abdominal pain, diarrhea. She was able to answer orientation questions appropriately with exception that she thought she was [facility] instead of [facility]. She did not want to converse much and did not respond when asked about medication. She currently resides at [facility]. Vitals are as follows: Temperature of 36.5, heart rate of 90, respirate of 16, blood pressure 156/76 and pulse ox of 95% on room air. Labs notable for K of 2.9, ast of 328, alt of 693, alk phos of 1054, total biliribuin 2.2, direct 2.2, indirect 1.4, lactate 1.2, cbc wnl, hepatitis panel negative, urine appears to be a dirty sample with greater than [address] A/P showed colonic thickening consistent with ischemia, infection or inflammation, f/up colonoscopy recommended to excluded underlying neoplasm, hiatal hernia. Patient was given potassium IV and po in the ED. Patient will be transferred to the care of [facility] staff for further management of their elevated lfts with concern for cholangiocarcinoma. 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;COMMENT: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 1 year Rosacea DX:Rosacea Seasonal allergies DX:Seasonal allergies Past Surgical History Past Surgical History: Procedure Laterality Date APPENDECTOMY PROCEDURE:APPENDECTOMY AUTOGRAFT/SPINE SURGERY Left 08/30/2017 PROCEDURE:AUTOGRAFT/SPINE SURGERY;COMMENT:Procedure: AUTOGRAFT BONE SPINE; Surgeon: Emeka Lopez MD; Location: [facility]; Service: Spine; Laterality: Left; BACK SURGERY PROCEDURE:BACK SURGERY CATARACT EXTRACTION W/ INTRAOCULAR LENS IMPLANT PROCEDURE:CATARACT EXTRACTION W/ INTRAOCULAR LENS IMPLANT DENTAL SURGERY PROCEDURE:DENTAL SURGERY;COMMENT:wisdom teeth LUMBAR FUSION Bilateral Posterior 08/30/2017 PROCEDURE:LUMBAR FUSION;COMMENT:Procedure: L4 - 5 FUSION SPINE LUMBAR POSTERIOR, INSTRUMENTED ARTHRODESIS; Surgeon: Emeka Lopez MD; Location: [facility]; Service: Spine; Laterality:Bilateral Posterior; LUMBAR LAMINECTOMY Bilateral Posterior 08/30/2017 PROCEDURE:LUMBAR LAMINECTOMY;COMMENT:Procedure: L4, L5 LAMINECTOMY DECOMPRESSION; Surgeon: Emeka Lopez MD; Location: [facility]; Service: Spine; Laterality: Bilateral Posterior; ROTATOR CUFF REPAIR 2013 PROCEDURE:ROTATOR CUFF REPAIR TONSILLECTOMY PROCEDURE:TONSILLECTOMY TOTAL HIP ARTHROPLASTY Left 02/16/2022 PROCEDURE:TOTAL HIP ARTHROPLASTY;COMMENT:Procedure: REPLACEMENT TOTAL HIP; Surgeon: Ottoniel Wells MD; Location: [facility] Service: Orthopedics; Laterality: Left; TOTAL KNEE ARTHROPLASTY Left 01/03/2021 PROCEDURE:TOTAL KNEE ARTHROPLASTY Social History reports that she quit smoking about 63 years ago. Her smoking use included cigarettes. She has never used smokeless tobacco. She reports current alcohol use of about 1.0 standard drink of alcohol perweek. She reports that she does not use drugs. Family History family history is not on file. Allergies has No Known Allergies. Home Medications No current facility-administered medications on file prior to encounter. Current Outpatient Medications on File Prior to Encounter Medication Sig Dispense Refill amantadine (SYMMETREL) 10 mg/mL solution Take 5 mL (50 mg total) by mouth 2 (two) times a day. amLODIPine (NORVASC) 2.5 mg tablet Take 1 tablet (2.5 mg total) by mouth 1 (one) time each day. aspirin 81 mg chewable tablet Chew 1 tablet (81 mg total) 1 (one) time each day at the same time. atorvastatin (LIPITOR) 80 mg tablet Take 1 tablet (80 mg total) by mouth 1 (one) time each day. baclofen (LIORESAL) 10 mg tablet Take 1 tablet (10 mg total) by mouth 2 (two) times a day if neededfor muscle spasms. omeprazole (PriLOSEC) [address] capsule Take 1 capsule (40 mg total) by mouth 1 (one) time each day at the same time. OBJECTIVE Vitals Visit Vitals BP (!) 168/78 (BP Location: Left arm, Patient Position: Lying) Pulse 67 Temp 37 ??C (98.6 ??F) (Oral) Resp 16 Temp (24hrs), Av.8 ??C (98.2 ??F), Min:36.5 ??C (97.7 ??F), Max:37 ??C (98.6 ??F) Body mass index is 28.32 kg/m??. No results found for: PTWT , PTHT Physical Examination Physical Exam General: Older female sitting upright in the stretcher in no acute distress, calm Skin: Appropriate tone for ethnicity, warm, dry, no rashes or wounds HEENT: normocephalic, atraumatic, sclera nonicteric, MONIKA, EOMI, tongue protrudes midline, moist mucus membranes, uvula midline Pulmonary: Lungs clear to auscultation in all lung lui bilaterally. No wheezes railes or rhonchiappreciated, no respiratory distress, no accessory muscle use. Cardiac: S1 and S2 appreciated, no murmurs, rubs or gallops, no peripheral edema Abdomen: Soft, non-tender, nondistended, no guarding or rebound tenderness appreciated. Bowel sounds normoactive. MSK: Full range of motion in upper and lower extremities dorsiflexion, plantar flexion, handgrip strength 5/5. Neuro: Alert and oriented x4. Cranial nerves 2-12 intact. No focal neurological deficits appreciated. No facial droop. No drift noted to the extremities bilaterally, no asterixis Psych: Normal affect. ECG: Was ECG Performed? No EKG Performed. Sinus Rhythm? N/A. Signs of acute ischemia? N/A Further Interpretation: LAB RESULTS (most recent) HEMATOLOGY Lab Results Component Value Date WBC 6.1 07/25/2024 HGB 12.3 07/25/2024 HCT 36.7 07/25/2024 MCV 93.1 07/25/2024 PLT 321 07/25/2024 CHEMISTRY Lab Results Component Value Date GLUCOSE 101 (H) 07/25/2024 NA 140 07/25/2024 K 2.9 (LL) 07/25/2024 CO2 28 07/25/2024 CL 103 07/25/2024 BUN 10 07/25/2024 CREATININE 0.62 07/25/2024 EGFR 89 07/25/2024 CALCIUM 9.3 07/25/2024 MG 2.0 07/25/2024 ANIONGAP 9 07/25/[address] Abdomen Pelvis w Contrast Final Result 1. Colonic thickening, consistent with ischemia, infection, or inflammation. Follow-up colonoscopy is recommended to exclude underlying neoplasm. 2. Hiatal hernia. This document has been electronically signed by: Janice Chaparro MD on 07/25/2024 17:55:43 US Abdomen Limited (Results Pending) ASSESSMENT & PLAN Abnormal LFTs with concern for cholangiocarcinoma -Patient resents today with concern of abnormal LFTs -vitals are stable -Labs notable for K of 2.9, ast of 328, alt of 693, alk phos of 1054, total biliribuin 2.2, direct 2.2, indirect 1.4, lactate 1.2, cbc wnl, hepatitis panel negative, urine appears to be a dirty sample with greater than [address] -CT A/P showed colonic thickening consistent with ischemia, infection or inflammation, f/up colonoscopy recommended to excluded underlying neoplasm, hiatal hernia. -Patient was given potassium IV and po in the ED. -Will check liver ultrasound, if there are no clear findings will need MRCP with and without tomorrow ---MRCP placed -was less conversive and not forthcoming with details, didn't know why she came in although answered most oriented questions appropriately. No hx of dementia in chart, no focal neurologic deficits, ua appeared contaminated, no white count, will check resp panel. She has findings of colitis on imaging but she has no abdominal pain, vomiting or diarrhea will defer antibiotics at this time. -AM labs Hx of CVA -Holding statin in setting elevated LFTs, continue with aspirin GERD -Continue PPI Hypertension -Continue amlodipine Admission checklist [x] Code status: Full Code - Default [x] VTE Prophylaxis: SCD [x] Diet order on admission: Dietary Orders (From admission, onward) Start Ordered 07/25/24 2250 Adult diet [facility]; General; Regular Diet effective 0500 Question Answer Comment Location [facility] Diet Type (req) General General Diet Regular 07/25/24 2249 [x] Lines, tubes, drains: IV access [x] Medication reconciliation Health Care proxy with Phone number emergency contact is daughter Yamel, and daughter Cassandra, Cosigned by Jomar Booth MD at 07/26/2024 10:05 PM EST Associated attestation - Jomar Booth MD - 07/26/2024 10:05 PM EST This is a split/shared visit with DICKSON Alvarez. I personally performed the medical decision making (MDM) for the care of this patient on 07/25/2024 as documented below 84 year-old female with history of CVA, hypertension, hyperlipidemia, GERD, and recent UTI treated with levofloxacin presents with abnormal LFTs. After discussion with the ER provider, the patient will be admitted to the hospital. The patient was prescribed levofloxacin from /. Routine check of her laboratories at her facilityshowed severe elevation in her LFTs and she was referred to the Emergency Department for further evaluation. The patient is completely asymptomatic. The pattern of her liver enzymes is consistent with cholestatic liver injury. Her numbers are too high to calculate an R factor, but the severe elevations in her GGT and alkaline phosphatase point to a cholestatic injury. Her normal INR and albumin suggest routine synthetic function. Her viral hepatitis panel is negative. Drug-induced cholestatic liver injury secondary to levofloxacin is a possibility, her liver function tests are severely elevated and the diagnosis is one of exclusion. She has already completed her antibiotic course. Due to her age, cholangiocarcinoma and primary biliary cirrhosis are considerations and MRCP will be performed for further evaluation. We will follow her liver function tests expectantly. Jomar Booth MD 07/26/24 8:46 PM EST documented in this encounter Plan of Treatment Not on file documented as of this encounter Procedures Procedure Name Priority Date/Time Associated Diagnosis Comments CBC WITH AUTO DIFFERENTIAL Routine 07/27/2024 6:22 AM EST CBC AND DIFFERENTIAL Routine 07/27/2024 6:22 AM EST HEPATIC FUNCTION PANEL Routine 07/27/2024 6:22 AM EST BASIC METABOLIC PANEL Routine 07/27/2024 6:22 AM EST MR ABDOMEN WO AND W CONTRAST MRCP Routine 07/26/2024 2:40 PM EST CBC WITH AUTO DIFFERENTIAL Routine 07/26/2024 6:14 AM EST PROTHROMBIN TIME WITH INR Routine 07/26/2024 6:14 AM EST CBC AND DIFFERENTIAL Routine 07/26/2024 6:14 AM EST COMPREHENSIVE METABOLIC PANEL Routine 07/26/2024 6:14 AM EST RESPIRATORY VIRUS PANEL MOLECULAR STUDY Routine 07/26/2024 2:05 AM EST BASIC METABOLIC PANEL Routine 07/26/2024 1:06 AM EST US ABDOMEN LIMITED STAT 07/26/2024 12 :37 AM EST URINALYSIS WITH REFLEX MICROSCOPIC AND CULTURE STAT 07/25/2024 7:41 PM EST JAY URINE CULTURE TUBE STAT 07/25/2024 7:41 PM EST URINALYSIS WITH REFLEX MICROSCOPIC AND CULTURE STAT 07/25/2024 7:41 PM EST CULTURE URINE STAT 07/25/2024 7:41 PM EST LACTATE STAT 07/25/2024 7:[address] ABDOMEN PELVIS W CONTRAST STAT 07/25/2024 5:33 PM EST BILIRUBIN DUPLICATE PROCEDURE TO ORDER STAT 07/25/2024 2:10 PM EST HEPATITIS PANEL, ACUTE WITH REFLEX TO CONFIRMATION Add-On 07/25/2024 2:10 PM EST MAGNESIUM Add-On 07/25/2024 2:10 PM EST LIPASE STAT Add-on 07/25/2024 2:10 PM EST GAMMA GLUTAMYL TRANSFERASE Add-On 07/25/2024 2:10 PM EST ACETAMINOPHEN LEVEL STAT Add-on 07/25/2024 2 :10 PM EST COMPREHENSIVE METABOLIC PANEL STAT 07/25/2024 2:10 PM EST PROTHROMBIN TIME WITH INR STAT 07/25/2024 12:49 PM EST CBC WITH AUTO DIFFERENTIAL STAT 07/25/2024 11:54 AM EST CBC AND DIFFERENTIAL STAT 07/25/2024 11:54 AM EST POCT GLUCOSE BLOOD Routine 07/25/2024 11 :26 AM EST documented in this encounter Results * CBC auto differential (07/27/2024 6:22 AM EST) WBC 6.6 4.8 - 10.8 K/mcL LAB HEMETOLOGY METHOD 07/27/2024 7:50 AM [facility] RBC 3.80 3.80 - 4.80 M/mcL LAB HEMETOLOGY METHOD 07/27/2024 7:50 AM [facility] Hemoglobin 11.8 11.5 - 16.0 g/dL LAB HEMETOLOGY METHOD 07/27/2024 7:50 AM [facility] Hematocrit 36.3 35.0 - 47.0 % LAB HEMETOLOGY METHOD 07/27/2024 7:50 AM [facility] MCV 94.5 79.0 - 98.0 FL LAB HEMETOLOGY METHOD 07/27/2024 7:50 AM [facility] MCH 30.7 27.0 - 32.0 pcg LAB HEMETOLOGY METHOD 07/27/2024 7:50 AM [facility] MCHC 32.5 32.0 - 37.0 g/dL LAB HEMETOLOGY METHOD 07/27/2024 7:50 AM [facility] RDW 13.9 11.0 - 15.0 % LAB HEMETOLOGY METHOD 07/27/2024 7:50 AM [facility] Platelets 300 130 - 400 K/mcL LAB HEMETOLOGY METHOD 07/27/2024 7:50 AM [facility] MPV 9.7 7.0 - 11.0 FL LAB HEMETOLOGY METHOD 07/27/2024 7:50 AM [facility] NRBC 0.0 <1.0 % LAB HEMETOLOGY METHOD 07/27/2024 7:50 AM [facility] NRBC Absolute 0.00 <0.10 K/mcL LAB HEMETOLOGY METHOD 07/27/2024 7:50 AM [facility] Neutrophils Relative 55.9 % LAB HEMETOLOGY METHOD 07/27/2024 7:50 AM [facility] Lymphocytes Relative 26.7 % LAB HEMETOLOGY METHOD 07/27/2024 7:50 AM [facility] Monocytes Relative 9.6 % LAB HEMETOLOGY METHOD 07/27/2024 7:50 AM [facility] Eosinophils Relative 6.4 % LAB HEMETOLOGY METHOD 07/27/2024 7:50 AM [facility] Basophils Relative 1.1 % LAB HEMETOLOGY METHOD 07/27/2024 7:50 AM [facility] Immature Granulocytes Relative 0.3 % LAB HEMETOLOGY METHOD 07/27/2024 7:50 AM [facility] Neutrophils Absolute 3.66 1.50 - 7.00 K/mcL LAB HEMETOLOGY METHOD 07/27/2024 7:50 AM [facility] Lymphocytes Absolute 1.75 1.00 - 5.00 K/mcL LAB HEMETOLOGY METHOD 07/27/2024 7:50 AM [facility] Monocytes Absolute 0.63 0.20 - 1.00 K/mcL LAB HEMETOLOGY METHOD 07/27/2024 7:50 AM [facility] Eosinophils Absolute 0.42 0.00 - 0.50 K/mcL LAB HEMETOLOGY METHOD 07/27/2024 7:50 AM EST [facility] Basophils Absolute 0.07 0.00 - 0.20 K/mcL LAB HEMETOLOGY METHOD 07/27/2024 7:50 AM [facility] Immature Granulocytes Absolute 0.02 0.00 - 0.03 K/mcL LAB HEMETOLOGY METHOD 07/27/2024 7:50 AM EST [facility] Blood Venous blood specimen / Unknown Venipuncture / Unknown 07/27/2024 6:22 AM EST 07/27/2024 7:09 AM EST Jeannie FORMAN LAB BLOOD ORDERABLES Final Result [facility] [address] [place] [address], * (ABNORMAL) Hepatic function panel (07/27/2024 6:22 AM EST) Total Protein 6.0 6.0 - 8.0 g/dL LAB CHEMISTRY METHOD 07/27/2024 7:56 AM [facility] Albumin 3.0(L) 3.2 - 5.0 g/dL LAB CHEMISTRY METHOD 07/27/2024 7:56 AM [facility] Total Bilirubin 1.0 0.0 - 1.4 mg/dL LAB CHEMISTRY METHOD 07/27/2024 7:56 AM [facility] Bilirubin, Direct 0.4(H) 0.0 - 0.3 mg/dL LAB CHEMISTRY METHOD 07/27/2024 7:56 AM [facility] Bilirubin, Indirect 0.6 0.0 - 1.1 mg/dL LAB CHEMISTRY METHOD 07/27/2024 7:56 AM [facility] ALT (SGPT) 362(H) 10 - 60 unit/L LAB CHEMISTRY METHOD 07/27/2024 7:56 AM [facility] AST (SGOT) 115(H) 10 - 42 unit/L LAB CHEMISTRY METHOD 07/27/2024 7:56 AM [facility] Alkaline Phosphatase 912(H) 42 - 121 unit/L LAB CHEMISTRY METHOD 07/27/2024 7:56 AM [facility] Blood Venous blood specimen / Unknown Venipuncture / Unknown 07/27/2024 6:22 AM EST 07/27/2024 7:10 AM EST us Jeannie FORMAN LAB BLOOD ORDERABLES Final Result [facility] [address] [place] [address], [place] [phone] * (ABNORMAL) Basic metabolic panel (07/27/2024 6:22 AM EST) Sodium 137 133 - 145 mmol/L LAB CHEMISTRY METHOD 07/27/2024 7:47 AM [facility] Potassium 3.6 3.5 - 5.5 mmol/L LAB CHEMISTRY METHOD 07/27/2024 7:47 AM [facility] Chloride 103 96 - 110 mmol/L LAB CHEMISTRY METHOD 07/27/2024 7:47 AM [facility] CO2 29 21 - 32 mmol/L LAB CHEMISTRY METHOD 07/27/2024 7:47 AM [facility] Anion Gap 5 3 - 11 LAB CHEMISTRY METHOD 07/27/2024 7:47 AM [facility] Glucose 110(H) 70 - 100 mg/dL LAB CHEMISTRY METHOD 07/27/2024 7:47 AM [facility] BUN 10 5 - 25 mg/dL LAB CHEMISTRY METHOD 07/27/2024 7:47 AM [facility] Creatinine 0.49(L) 0.50 - 1.10 mg/dL LAB CHEMISTRY METHOD 07/27/2024 7:47 AM EST [facility] eGFR 94 >=60 mL/min/1. 73m2 LAB CHEMISTRY METHOD 07/27/2024 7:47 AM EST [facility] Comment:Calculation based on the??Chronic Kidney Disease Epidemiology Collaboration (CKD-EPI) equation refit??without adjustment for race. BUN/Creatinine Ratio 20.4 LAB CHEMISTRY METHOD 07/27/2024 7:47 AM EST [facility] Calcium 9.4 8.5 - 10.5 mg/dL LAB CHEMISTRY METHOD 07/27/2024 7:47 AM EST [facility] Blood Venous blood specimen / Unknown Venipuncture / Unknown 07/27/2024 6:22 AM EST 07/27/2024 7:10 AM EST us Jeannie FORMAN LAB BLOOD ORDERABLES Final Result [facility] [address] [place] [address], [place] [phone] * MR Abdomen wo and w Contrast MRCP (07/26/2024 2:40 PM EST) Anatomical Region Laterality Modality Body Magnetic Resonan ce 07/26/2024 3:28 PM EST Impressions 07/26/2024 3:28 PM EST 1. As seen by CT, no evidence of biliary ductal dilatation to indicate cholangiocarcinoma. Negative evaluation of the liver. 2. Hiatal hernia. This document has been electronically signed by: Janice Chaparro MD on 07/26/2024 15:28:50 Narrative 07/26/2024 3:28 PM EST INDICATION: Jaundice 1. MRCP. 2. MR abdomen with and without gadolinium Comparison: CT - CT ABD PEL W CONTRAST - 07/25/24 17:32 EST Findings: Examination is degraded by motion artifact Lung bases are clear. Heart size is normal. Liver, biliary tree, gallbladder, pancreas, and pancreatic duct are within normal limits. Spleen, adrenals, and kidneys are within normal limits. No adenopathy. Visualized bowel loops and vasculature are normal in caliber. Large hiatal hernia. Visualized osseous structures are within normal limits. Fusion hardware within the thoracolumbar spine. Procedure Note Janice Chaparro MD - 07/26/2024 INDICATION: Jaundice 1. MRCP. 2. MR abdomen with and without gadolinium Comparison: CT - CT ABD PEL W CONTRAST - 07/25/24 17:32 EST Findings: Examination is degraded by motion artifact Lung bases are clear. Heart size is normal. Liver, biliary tree, gallbladder, pancreas, and pancreatic duct arewithin normal limits. Spleen, adrenals, and kidneys are within normal limits. No adenopathy. Visualized bowel loops and vasculature are normal in caliber. Largehiatal hernia. Visualized osseous structures are within normal limits. Fusion hardware within the thoracolumbar spine. IMPRESSION: 1. As seen by CT, no evidence of biliary ductal dilatation to indicate cholangiocarcinoma. Negative evaluation of the liver. 2. Hiatal hernia. This document has been electronically signed by: Janice Chaparro MD on 07/26/2024 15:28:50 us Jomar Booth MD IM MRI PROCEDURES Final Re sult * CBC auto differential (07/26/2024 6:14 AM EST) WBC 5.7 4.8 - 10.8 K/mcL LAB HEMETOLOGY METHOD 07/26/2024 7:18 AM [facility] RBC 4.10 3.80 - 4.80 M/mcL LAB HEMETOLOGY METHOD 07/26/2024 7:18 AM [facility] Hemoglobin 12.5 11.5 - 16.0 g/dL LAB HEMETOLOGY METHOD 07/26/2024 7:18 AM [facility] Hematocrit 38.3 35.0 - 47.0 % LAB HEMETOLOGY METHOD 07/26/2024 7:18 AM [facility] MCV 93.9 79.0 - 98.0 FL LAB HEMETOLOGY METHOD 07/26/2024 7:18 AM [facility] MCH 30.6 27.0 - 32.0 pcg LAB HEMETOLOGY METHOD 07/26/2024 7:18 AM [facility] MCHC 32.6 32.0 - 37.0 g/dL LAB HEMETOLOGY METHOD 07/26/2024 7:18 AM [facility] RDW 13.9 11.0 - 15.0 % LAB HEMETOLOGY METHOD 07/26/2024 7:18 AM [facility] Platelets 308 130 - 400 K/mcL LAB HEMETOLOGY METHOD 07/26/2024 7:18 AM [facility] MPV 9.7 7.0 - 11.0 FL LAB HEMETOLOGY METHOD 07/26/2024 7:18 AM [facility] NRBC 0.0 <1.0 % LAB HEMETOLOGY METHOD 07/26/2024 7:18 AM [facility] NRBC Absolute 0.00 <0.10 K/mcL LAB HEMETOLOGY METHOD 07/26/2024 7:18 AM [facility] Neutrophils Relative 51.3 % LAB HEMETOLOGY METHOD 07/26/2024 7:18 AM [facility] Lymphocytes Relative 30.7 % LAB HEMETOLOGY METHOD 07/26/2024 7:18 AM [facility] Monocytes Relative 9.5 % LAB HEMETOLOGY METHOD 07/26/2024 7:18 AM [facility] Eosinophils Relative 7.4 % LAB HEMETOLOGY METHOD 07/26/2024 7:18 AM [facility] Basophils Relative 0.7 % LAB HEMETOLOGY METHOD 07/26/2024 7:18 AM [facility] Immature Granulocytes Relative 0.4 % LAB HEMETOLOGY METHOD 07/26/2024 7:18 AM [facility] Neutrophils Absolute 2.91 1.50 - 7.00 K/mcL LAB HEMETOLOGY METHOD 07/26/2024 7:18 AM EST [facility] Lymphocytes Absolute 1.74 1.00 - 5.00 K/[facility] LAB HEMETOLOGY METHOD 07/26/2024 7:18 AM [facility] Monocytes Absolute 0.54 0.20 - 1.00 K/[facility] LAB HEMETOLOGY METHOD 07/26/2024 7:18 AM EST [facility] Eosinophils Absolute 0.42 0.00 - 0.50 K/[facility] LAB HEMETOLOGY METHOD 07/26/2024 7:18 AM [facility] Basophils Absolute 0.04 0.00 - 0.20 K/[facility] LAB HEMETOLOGY METHOD 07/26/2024 7:18 AM [facility] Immature Granulocytes Absolute 0.02 0.00 - 0.03 K/[facility] LAB HEMETOLOGY METHOD 07/26/2024 7:18 AM [facility] Blood Venous blood specimen / Unknown Venipuncture / Unknown 07/26/2024 6:14 AM EST 07/26/2024 6:54 AM EST us Jomar Booth MD LAB BLOOD ORDERABLES Final Result [facility] [address] [place] [address], * (ABNORMAL) Comprehensive metabolic panel (07/26/2024 6:14 AM EST) Sodium 138 133 - 145 mmol/L LAB CHEMISTRY METHOD 07/26/2024 7:53 AM [facility] Potassium 3.4(L) 3.5 - 5.5 mmol/L LAB CHEMISTRY METHOD 07/26/2024 7:53 AM [facility] Chloride 103 96 - 110 mmol/L LAB CHEMISTRY METHOD 07/26/2024 7:53 AM [facility] CO2 28 21 - 32 mmol/L LAB CHEMISTRY METHOD 07/26/2024 7:53 AM [facility] Anion Gap 7 3 - 11 LAB CHEMISTRY METHOD 07/26/2024 7:53 AM [facility] Glucose 103(H) 70 - 100 mg/dL LAB CHEMISTRY METHOD 07/26/2024 7:53 AM [facility] BUN 10 5 - 25 mg/dL LAB CHEMISTRY METHOD 07/26/2024 7:53 AM [facility] Creatinine 0.62 0.50 - 1.10 mg/dL LAB CHEMISTRY METHOD 07/26/2024 7:53 AM [facility] eGFR 89 >=60 mL/min/1. 73m2 LAB CHEMISTRY METHOD 07/26/2024 7:53 AM [facility] Comment:Calculation based on the??Chronic Kidney Disease Epidemiology Collaboration (CKD-EPI) equation refit??without adjustment for race. BUN/Creatinine Ratio 16.1 LAB CHEMISTRY METHOD 07/26/2024 7:53 AM [facility] Calcium 9.4 8.5 - 10.5 mg/dL LAB CHEMISTRY METHOD 07/26/2024 7:53 AM [facility] AST (SGOT) 196(H) 10 - 42 unit/L LAB CHEMISTRY METHOD 07/26/2024 7:53 AM [facility] ALT (SGPT) 538(H) 10 - 60 unit/L LAB CHEMISTRY METHOD 07/26/2024 7:53 AM [facility] Alkaline Phosphatase 986(H) 42 - 121 unit/L LAB CHEMISTRY METHOD 07/26/2024 7:53 AM [facility] Total Protein 6.5 6.0 - 8.0 g/dL LAB CHEMISTRY METHOD 07/26/2024 7:53 AM [facility] Albumin 3.3 3.2 - 5.0 g/dL LAB CHEMISTRY METHOD 07/26/2024 7:53 AM [facility] Total Bilirubin 1.5(H) 0.0 - 1.4 mg/dL LAB CHEMISTRY METHOD 07/26/2024 7:53 AM EST [facility] Blood Venous blood specimen / Unknown Venipuncture / Unknown 07/26/2024 6:14 AM EST 07/26/2024 6:50 AM EST Jomar Booth MD LAB BLOOD ORDERABLES Final Result Performing Organization Address City/[facility]/ZIP Co de Phone Number [facility] [address] [place] [address], [place] [phone] * Prothrombin time with INR (07/26/2024 6:14 AM EST) [facility] Protime 11.3 10.6 - 13.9 sec LAB COAGULATION METHOD 07/26/2024 7:26 AM [facility] INR 0.9 LAB COAGULATION METHOD 07/26/2024 7:26 AM [facility] Blood Venous blood specimen / Unknown Venipuncture / Unknown 07/26/2024 6:14 AM EST 07/26/2024 6:51 AM EST us Jomar Booth MD LAB BLOOD ORDERABLES Final Result Performing Organization Address [facility]/ZIP Co de Phone Number [facility] [address] [place] [address], [place] [phone] * Respiratory virus panel molecular study (07/26/2024 2:05 AM EST) [facility] Adenovirus Detection by PCR Not Detected Not Detected LAB MICROBIOLOGY METHOD 07/26/2024 3:02 AM EST [facility] Influenza A PCR Not Detected Not Detected LAB MICROBIOLOGY METHOD 07/26/2024 3:02 AM [facility] Influenza B PCR Not Detected Not Detected LAB MICROBIOLOGY METHOD 07/26/2024 3:02 AM EST [facility] Coronavirus 229E Not Detected Not Detected LAB MICROBIOLOGY METHOD 07/26/2024 3:02 AM [facility] Coronavirus HKU1 Not Detected Not Detected LAB MICROBIOLOGY METHOD 07/26/2024 3:02 AM [facility] Coronavirus OC43 Not Detected Not Detected LAB MICROBIOLOGY METHOD 07/26/2024 3:02 AM [facility] Coronavirus NL63 Not Detected Not Detected LAB MICROBIOLOGY METHOD 07/26/2024 3:02 AM [facility] Parainfluenza Virus 1 Not Detected Not Detected LAB MICROBIOLOGY METHOD 07/26/2024 3:02 AM [facility] Parainfluenza Virus 2 Not Detected Not Detected LAB MICROBIOLOGY METHOD 07/26/2024 3:02 AM [facility] Parainfluenza Virus 3 Not Detected Not Detected LAB MICROBIOLOGY METHOD 07/26/2024 3:02 AM [facility] Parainfluenza Virus 4 Not Detected Not Detected LAB MICROBIOLOGY METHOD 07/26/2024 3:02 AM [facility] RSV PCR Not Detected Not Detected LAB MICROBIOLOGY METHOD 07/26/2024 3:02 AM [facility] Human Metapneumovirus A and B Not Detected Not Detected LAB MICROBIOLOGY METHOD 07/26/2024 3:02 AM [facility] Rhinovirus/Entero virus Not Detected Not Detected LAB MICROBIOLOGY METHOD 07/26/2024 3:02 AM [facility] Bordetella pertussis Not Detected Not Detected LAB MICROBIOLOGY METHOD 07/26/2024 3:02 AM [facility] Bordetella parapertussis Not Detected Not Detected LAB MICROBIOLOGY METHOD 07/26/2024 3:02 AM [facility] Mycoplasma pneumo by PCR Not Detected Not Detected LAB MICROBIOLOGY METHOD 07/26/2024 3:02 AM [facility] Chlamydia pneumoniae Not Detected Not Detected LAB MICROBIOLOGY METHOD 07/26/2024 3:02 AM [facility] SARS COV-2 Not Detected Not Detected LAB MICROBIOLOGY METHOD 07/26/2024 3:02 AM [facility] Swab Structure of right anterior naris / Unknown Non-blood Collection / Unknown 07/26/2024 2:05 AM EST 07/26/2024 2:14 AM EST [facility] - 07/26/2024 3:02 AM EST Testing was performed using the [employer] Respiratory Pathogen PCR Assay. All results must be correlated with the clinical findings. Results should not be used as the sole basis for diagnosis. False Negative results may occur from the presence of sequence variants in the region targeted by the assay or the presence of inhibitors. Results may be affected by concurrent antiviral/antimicrobial therapy or levels of organisms that are below the limit of detection. Nayely FORMAN LAB MICROBIOLOGY - GENERAL OR DERABLES Final Result [facility] [address] [place] [address], [place] [phone] * (ABNORMAL) Basic metabolic panel (07/26/2024 1:06 AM EST) Sodium 140 133 - 145 mmol/L LAB CHEMISTRY METHOD 07/26/2024 2:07 AM [facility] Potassium 3.5 3.5 - 5.5 mmol/L LAB CHEMISTRY METHOD 07/26/2024 2:07 AM [facility] Chloride 105 96 - 110 mmol/L LAB CHEMISTRY METHOD 07/26/2024 2:07 AM [facility] CO2 28 21 - 32 mmol/L LAB CHEMISTRY METHOD 07/26/2024 2:07 AM [facility] Anion Gap 7 3 - 11 LAB CHEMISTRY METHOD 07/26/2024 2:07 AM [facility] Glucose 143(H) 70 - 100 mg/dL LAB CHEMISTRY METHOD 07/26/2024 2:07 AM [facility] BUN 9 5 - 25 mg/dL LAB CHEMISTRY METHOD 07/26/2024 2:07 AM EST [facility] Creatinine 0.58 0.50 - 1.10 mg/dL LAB CHEMISTRY METHOD 07/26/2024 2:07 AM EST [facility] eGFR 90 >=60 mL/min/1. 73m2 LAB CHEMISTRY METHOD 07/26/2024 2:07 AM EST [facility] Comment:Calculation based on the??Chronic Kidney Disease Epidemiology Collaboration (CKD-EPI) equation refit??without adjustment for race. BUN/Creatinine Ratio 15.5 LAB CHEMISTRY METHOD 07/26/2024 2:07 AM EST [facility] Calcium 8.9 8.5 - 10.5 mg/dL LAB CHEMISTRY METHOD 07/26/2024 2:07 AM EST [facility] Blood Venous blood specimen / Unknown Venipuncture / Unknown 07/26/2024 1:06 AM EST 07/26/2024 1:28 AM EST us Nayely FORMAN LAB BLOOD ORDERABLES Final Re sult [facility] [address] [place] [address], [place] [phone] * [place] Abdomen Limited (07/26/2024 12:37 AM EST) Anatomical Region Laterality Modality Body Ultrasound 07/26/2024 1:02 AM EST Impressions 07/26/2024 1:02 AM EST Impression: Borderline gallbladder wall thickening without stones Consider hepatobiliary scan if cholecystitis suspected This document has been electronically signed by: Qamar Sepulveda MD on 07/26/2024 01:02:43 Narrative 07/26/2024 1:02 AM EST INDICATION: Cholangiocarcinoma suspected US abdomen limited Comparison: CT same date Findings: Liver homogeneous without focal abnormality. Right lobe 13.5 cm length. Main portal vein patent with antegrade flow. Visualized pancreas unremarkable. Borderline gallbladder wall thickening noted. No stones or sludge identified. Question early acalculous cholecystitis. Nuclear hepatobiliary scan may be of value. Common duct 3.2 mm diameter. No ultrasonographic De La Garza sign. Right kidney normal, 9.6 cm in length. Procedure Note Qamar Sepulveda MD - 07/26/2024 INDICATION: Cholangiocarcinoma suspected US abdomen limited Comparison: CT same date Findings: Liver homogeneous without focal abnormality. Right lobe 13.5 cm length. Main portal vein patent with antegrade flow. Visualized pancreas unremarkable. Borderline gallbladder wall thickening noted. No stones or sludge identified. Question early acalculous cholecystitis. Nuclear hepatobiliary scan may be of value. Common duct 3.2 mm diameter. No ultrasonographic De La Garza sign. Right kidney normal, 9.6 cm in length. IMPRESSION: Impression: Borderline gallbladder wall thickening without stones Consider hepatobiliary scan if cholecystitis suspected This document has been electronically signed by: Qamar Sepulveda MD on 07/26/2024 01:02:43 us Jomar Booth MD IMG US PROCEDURES Final Res ult * (ABNORMAL) Culture urine (07/25/2024 7:41 PM EST) Culture, Urine 50,000-100,000 CFU/mL Escherichia coli(A) JUDIE 07/27/2024 11:55 AM EST [facility] Comment: This is an edited result. Previous organism was Gram negative bacilli on 07/26/2024 at 1325 EST. Urine Urine specimen obtained by clean catch procedure / Unknown Non-blood Collection / Unknown 07/25/2024 7:41 PM EST 07/25/2024 8:57 PM EST Narrative [facility] - 07/27/2024 11:55 AM EST Additional colony types present in insignificant amounts. Organism Antibiotic Method Susceptibility Escherichia coli Amoxicillin/Clavulanate [...] <=1 ug/ml: Susceptible Escherichia coli Ciprofloxacin JUDIE >=4 ug/ml: Resistant Escherichia coli Levofloxacin JUDIE >=8 ug/ml: Resistant Escherichia coli Nitrofurantoin JUDIE <=16 ug/ml: Susceptible Escherichia coli Trimethoprim/Sulfamethoxazole JUDIE <=20 ug/ml: Susceptible Jomar Booth MD LAB MICROBIOLOGY - GENERAL ORDERABLES Final Result Performing Organization Address [facility]/ZIP Co de Phone Number [facility] [address] [place] [address], [place] [phone] * Jay urine culture tube (07/25/2024 7:41 PM EST) [facility] Extra Tube Hold for add-ons. 07/25/2024 9:01 PM EST [facility] Comment:Auto resulted. Urine Urine specimen obtained by clean catch procedure / Unknown Non-blood Collection / Unknown 07/25/2024 7:41 PM EST 07/25/2024 7:59 PM EST Jomar Booth MD LAB URINE ORDERABLES Final Result Performing Organization Address [facility]/ZIP Co de Phone Number [facility] [address] [place] [address], [place] [phone] * (ABNORMAL) Urinalysis with reflex microscopic and culture (07/25/2024 7:41 PM EST) Pathologist [facility] Specific [place] Urine 1.040(H) 1.003 - 1.030 LAB URINALYSIS - AUTOMATED METHOD 07/25/2024 8:57 PM EST [facility] pH, Urine 7.0 5.0 - 8.0 pH LAB URINALYSIS - AUTOMATED METHOD 07/25/2024 8:57 PM [facility] Leukocytes, Urine Small(A) Negative LAB URINALYSIS - AUTOMATED METHOD 07/25/2024 8:57 PM [facility] Nitrite, Urine Negative Negative LAB URINALYSIS - AUTOMATED METHOD 07/25/2024 8:57 PM [facility] Protein, Urine Negative <=Trace mg/dL LAB URINALYSIS - AUTOMATED METHOD 07/25/2024 8:57 PM [facility] Glucose, Urine Negative Negative mg/dL LAB URINALYSIS - AUTOMATED METHOD 07/25/2024 8:57 PM [facility] Ketones, Urine Trace(A) Negative mg/dL LAB URINALYSIS - AUTOMATED METHOD 07/25/2024 8:57 PM [facility] Urobilinogen, Urine 1.0 0.2 - 1.0 mg/dL LAB URINALYSIS - AUTOMATED METHOD 07/25/2024 8:57 PM [facility] Bilirubin, Urine Negative Negative LAB URINALYSIS - AUTOMATED METHOD 07/25/2024 8:57 PM [facility] Blood, Urine Negative Negative LAB URINALYSIS - AUTOMATED METHOD 07/25/2024 8:57 PM [facility] RBC, Urine 1.7 0 - 4 /HPF LAB URINALYSIS - AUTOMATED METHOD 07/25/2024 8:57 PM [facility] WBC, Urine 16.3(H) 0 - 4 /HPF LAB URINALYSIS - AUTOMATED METHOD 07/25/2024 8:57 PM [facility] Squamous Epithelial, Urine >100(H) 0 - 60 /LPF LAB URINALYSIS - AUTOMATED METHOD 07/25/2024 8:57 PM [facility] Bacteria, Urine Few(A) Negative /HPF LAB URINALYSIS - AUTOMATED METHOD 07/25/2024 8:57 PM [facility] Hyaline Casts, Urine 5.6(H) 0 - 3 /LPF LAB URINALYSIS - AUTOMATED METHOD 07/25/2024 8:57 PM EST [facility] Urine Urine specimen obtained by clean catch procedure / Unknown Non-blood Collection / Unknown 07/25/2024 7:41 PM EST 07/25/2024 7:59 PM EST Jomar Booth MD LAB URINE ORDERABLES Final Result Performing Organization Address [facility]/ZIP Co de Phone Number [facility] [address] [place] [address], [place] [phone] * Lactate (07/25/2024 7:34 PM EST) Lactate 1.2 0.4 - 2.0 mmol/L LAB CHEMISTRY METHOD 07/25/2024 8:37 PM EST [facility] Blood Venous blood specimen / Unknown Venipuncture / Unknown 07/25/2024 7:34 PM EST 07/25/2024 7:59 PM EST us Kaci Lopez DO LAB BLOOD ORDERABLES Payal l Result Performing Organization Address [facility]/ZIP Co de Phone Number [facility] [address] [place] [address], [place] [phone] * CT Abdomen Pelvis w Contrast (07/25/2024 5:33 PM EST) Anatomical Region Laterality Modality Body Computed Tomogra phy 07/25/2024 5:55 PM EST Impressions 07/25/2024 5:55 PM EST 1. Colonic thickening, consistent with ischemia, infection, or inflammation. Follow-up colonoscopy is recommended to exclude underlying neoplasm. 2. Hiatal hernia. This document has been electronically signed by: Janice Chaparro MD on 07/25/2024 17:55:43 Narrative 07/25/2024 5:55 PM EST INDICATION: Anemia CT abdomen and pelvis with contrast Comparison: None Findings: The lung bases are clear. The gallbladder and solid organs are within normal limits. No renal stones. No bowel obstruction, pneumoperitoneum, or pneumatosis. Large hiatal hernia. Moderate thickening of the splenic flexure of colon and proximal descending colon. Cylindrical calcifications within the mid/distal splenic artery. Pelvic contents unremarkable. Appendix is not seen. No acute fracture. Thoracolumbar fusion hardware. Multilevel disc space narrowing and endplate osteophyte formation, as well as facet hypertrophy. Procedure Note Janice Chaparro MD - 07/25/2024 INDICATION: Anemia CT abdomen and pelvis with contrast Comparison: None Findings: The lung bases are clear. The gallbladder and solid organs are within normal limits. No renal stones. No bowel obstruction, pneumoperitoneum, or pneumatosis. Large hiatal hernia. Moderate thickening of the splenic flexure of colon and proximal descending colon. Cylindrical calcifications within the mid/distal splenic artery. Pelvic contents unremarkable. Appendix is not seen. No acute fracture. Thoracolumbar fusion hardware. Multilevel disc space narrowing and endplate osteophyte formation, as well as facethypertrophy. IMPRESSION: 1. Colonic thickening, consistent with ischemia, infection, or inflammation. Follow-up colonoscopy is recommended to exclude underlying neoplasm. 2. Hiatal hernia. This document has been electronically signed by: Janice Chaparro MD on 07/25/2024 17:55:[address] PROCEDURES Final Re sult * (ABNORMAL) GGT (07/25/2024 2:10 PM EST) GGT 933(H) 7 - 64 unit/L LAB CHEMISTRY METHOD 07/25/2024 9:38 PM EST [facility] Blood Venous blood specimen / Unknown Venipuncture / Unknown 07/25/2024 2:10 PM EST 07/25/2024 2:23 PM EST Jomar Booth MD LAB BLOOD ORDERABLES Final Result [facility] [address] [place] [address], [place] [phone] * Magnesium (07/25/2024 2:10 PM EST) Magnesium 2.0 1.9 - 2.6 mg/dL LAB CHEMISTRY METHOD 07/25/2024 10:55 PM EST [facility] Blood Venous blood specimen / Unknown Venipuncture / Unknown 07/25/2024 2:10 PM EST 07/25/2024 2:23 PM EST Jomar Booth MD LAB BLOOD ORDERABLES Final Result Performing Organization Address [facility]/ZIP Co de Phone Number [facility] [address] [place] [address], [place] [phone] * (ABNORMAL) Acetaminophen level (07/25/2024 2:10 PM EST) Pathologist [facility] Acetaminophen Level <2.0(L) 10.0 - 30.0 mcg/mL LAB CHEMISTRY METHOD 07/25/2024 6:50 PM EST [facility] Blood Venous blood specimen / Unknown Venipuncture / Unknown 07/25/2024 2:10 PM EST 07/25/2024 2:23 PM EST aKci Lopez DO LAB BLOOD ORDERABLES Payal l Result Performing Organization Address City/[facility]/ZIP Co de Phone Number [facility] [address] [place] [address], [place] [phone] * Hepatitis panel, acute with reflex to confirmation (07/25/2024 2:10 PM EST) Pathologist [facility] Hepatitis B Surface Ag Negative Negative LAB CHEMISTRY METHOD 07/25/2024 7:43 PM EST [facility] Hepatitis A Antibody IgM Negative Negative LAB CHEMISTRY METHOD 07/25/2024 7:43 PM EST [facility] Hep B Core IgM Negative Negative LAB CHEMISTRY METHOD 07/25/2024 7:43 PM EST [facility] Hepatitis C Antibody Negative Negative LAB CHEMISTRY METHOD 07/25/2024 7:43 PM EST [facility] Blood Venous blood specimen / Unknown Venipuncture / Unknown 07/25/2024 2:10 PM EST 07/25/2024 2:23 PM EST Marino Eligio Lopez LAB BLOOD ORDERABLES Payal l Result Performing Organization Address City/[facility]/ZIP Co de Phone Number [facility] [address] [place] [address], [place] [phone] * Lipase (07/25/2024 2:10 PM EST) [facility] Lipase 21 13 - 75 unit/L LAB CHEMISTRY METHOD 07/25/2024 6:50 PM EST [facility] Blood Venous blood specimen / Unknown Venipuncture / Unknown 07/25/2024 2:10 PM EST 07/25/2024 2:23 PM EST [facility] Eligio Aaron [facility] LAB BLOOD ORDERABLES Payal l Result Performing Organization Address [facility] de Phone Number [facility] [address] [place] [address], [place] [phone] * (ABNORMAL) Bilirubin duplicate procedure to order (07/25/2024 2:10 PM EST) Pathologist [facility] Total Bilirubin 2.2(H) 0.0 - 1.4 mg/dL LAB CHEMISTRY METHOD 07/25/2024 3:26 PM EST [facility] Bilirubin, Direct 1.4(H) 0.0 - 0.3 mg/dL LAB CHEMISTRY METHOD 07/25/2024 3:26 PM EST [facility] Bilirubin, Indirect 0.8 0.0 - 1.1 mg/dL LAB CHEMISTRY METHOD 07/25/2024 3:26 PM EST [facility] Blood Venous blood specimen / Unknown Venipuncture / Unknown 07/25/2024 2:10 PM EST 07/25/2024 2:23 PM EST Brianna FORMAN LAB BLOOD ORDERABLES Final Result [facility] [address] [place] [address], [place] [phone] * (ABNORMAL) Comprehensive metabolic panel (07/25/2024 2:10 PM EST) Sodium 140 133 - 145 mmol/L LAB CHEMISTRY METHOD 07/25/2024 4:02 PM [facility] Potassium 2.9(LL) 3.5 - 5.5 mmol/L LAB CHEMISTRY METHOD 07/25/2024 4:02 PM [facility] Chloride 103 96 - 110 mmol/L LAB CHEMISTRY METHOD 07/25/2024 4:02 PM [facility] CO2 28 21 - 32 mmol/L LAB CHEMISTRY METHOD 07/25/2024 4:02 PM [facility] Anion Gap 9 3 - 11 LAB CHEMISTRY METHOD 07/25/2024 4:02 PM [facility] Glucose 101(H) 70 - 100 mg/dL LAB CHEMISTRY METHOD 07/25/2024 4:02 PM [facility] BUN 10 5 - 25 mg/dL LAB CHEMISTRY METHOD 07/25/2024 4:02 PM [facility] Creatinine 0.62 0.50 - 1.10 mg/dL LAB CHEMISTRY METHOD 07/25/2024 4:02 PM [facility] eGFR 89 >=60 mL/min/1 .73m2 LAB CHEMISTRY METHOD 07/25/2024 4:02 PM [facility] Comment:Calculation based on the??Chronic Kidney Disease Epidemiology Collaboration (CKD-EPI) equation refit??without adjustment for race. BUN/Creatinine Ratio 16.1 LAB CHEMISTRY METHOD 07/25/2024 4:02 PM [facility] Calcium 9.3 8.5 - 10.5 mg/dL LAB CHEMISTRY METHOD 07/25/2024 4:02 PM [facility] AST (SGOT) 328(H) 10 - 42 unit/L LAB CHEMISTRY METHOD 07/25/2024 4:02 PM [facility] ALT (SGPT) 693(H) 10 - 60 unit/L LAB CHEMISTRY METHOD 07/25/2024 4:02 PM [facility] Alkaline Phosphatase 1,054(H) 42 - 121 unit/L LAB CHEMISTRY METHOD 07/25/2024 4:02 PM [facility] Total Protein 6.6 6.0 - 8.0 g/dL LAB CHEMISTRY METHOD 07/25/2024 4:02 PM [facility] Albumin 3.4 3.2 - 5.0 g/dL LAB CHEMISTRY METHOD 07/25/2024 4:02 PM [facility] Total Bilirubin 2.2(H) 0.0 - 1.4 mg/dL LAB CHEMISTRY METHOD 07/25/2024 4:02 PM [facility] Blood Venous blood specimen / Unknown Venipuncture / Unknown 07/25/2024 2:10 PM EST 07/25/2024 2:23 PM EST us Brianna FORMAN LAB BLOOD ORDERABLES Final Result [facility] [address] [place] [address], * Prothrombin time with INR (07/25/2024 12:49 PM EST) Protime 13.1 10.6 - 13.9 sec LAB COAGULATION METHOD 07/25/2024 1:02 PM [facility] INR 1.0 LAB COAGULATION METHOD 07/25/2024 1:02 PM [facility] Blood Venous blood specimen / Unknown Venipuncture / Unknown 07/25/2024 12:49 PM EST 07/25/2024 12:53 PM EST Brianna FORMAN LAB BLOOD ORDERABLES Final Result [facility] [address] [place] [address], * CBC auto differential (07/25/2024 11:54 AM EST) WBC 6.1 4.8 - 10.8 K/mcL LAB HEMETOLOGY METHOD 07/25/2024 12:30 PM [facility] RBC 3.90 3.80 - 4.80 M/mcL LAB HEMETOLOGY METHOD 07/25/2024 12:30 PM [facility] Hemoglobin 12.3 11.5 - 16.0 g/dL LAB HEMETOLOGY METHOD 07/25/2024 12:30 PM [facility] Hematocrit 36.7 35.0 - 47.0 % LAB HEMETOLOGY METHOD 07/25/2024 12:30 PM [facility] MCV 93.1 79.0 - 98.0 FL LAB HEMETOLOGY METHOD 07/25/2024 12:30 PM [facility] MCH 31.2 27.0 - 32.0 pcg LAB HEMETOLOGY METHOD 07/25/2024 12:30 PM [facility] MCHC 33.5 32.0 - 37.0 g/dL LAB HEMETOLOGY METHOD 07/25/2024 12:30 PM [facility] RDW 13.9 11.0 - 15.0 % LAB HEMETOLOGY METHOD 07/25/2024 12:30 PM [facility] Platelets 321 130 - 400 K/mcL LAB HEMETOLOGY METHOD 07/25/2024 12:30 PM [facility] MPV 10.4 7.0 - 11.0 FL LAB HEMETOLOGY METHOD 07/25/2024 12:30 PM [facility] NRBC 0.0 <1.0 % LAB HEMETOLOGY METHOD 07/25/2024 12:30 PM [facility] NRBC Absolute 0.00 <0.10 K/mcL LAB HEMETOLOGY METHOD 07/25/2024 12:30 PM [facility] Neutrophils Relative 60.8 % LAB HEMETOLOGY METHOD 07/25/2024 12:30 PM [facility] Lymphocytes Relative 23.2 % LAB HEMETOLOGY METHOD 07/25/2024 12:30 PM [facility] Monocytes Relative 9.4 % LAB HEMETOLOGY METHOD 07/25/2024 12:30 PM [facility] Eosinophils Relative 5.9 % LAB HEMETOLOGY METHOD 07/25/2024 12:30 PM [facility] Basophils Relative 0.5 % LAB HEMETOLOGY METHOD 07/25/2024 12:30 PM [facility] Immature Granulocytes Relative 0.2 % LAB HEMETOLOGY METHOD 07/25/2024 12:30 PM [facility] Neutrophils Absolute 3.70 1.50 - 7.00 K/mcL LAB HEMETOLOGY METHOD 07/25/2024 12:30 PM [facility] Lymphocytes Absolute 1.41 1.00 - 5.00 K/mcL LAB HEMETOLOGY METHOD 07/25/2024 12:30 PM [facility] Monocytes Absolute 0.57 0.20 - 1.00 K/mcL LAB HEMETOLOGY METHOD 07/25/2024 12:30 PM [facility] Eosinophils Absolute 0.36 0.00 - 0.50 K/mcL LAB HEMETOLOGY METHOD 07/25/2024 12:30 PM EST [facility] Basophils Absolute 0.03 0.00 - 0.20 K/[facility] LAB HEMETOLOGY METHOD 07/25/2024 12:30 PM EST [facility] Immature Granulocytes Absolute 0.01 0.00 - 0.03 K/mcL LAB HEMETOLOGY METHOD 07/25/2024 12:30 PM EST [facility] Blood Venous blood specimen / Unknown Venipuncture / Unknown 07/25/2024 11:54 AM EST 07/25/2024 12:26 PM EST Jomar Booth MD LAB BLOOD ORDERABLES Final Result [facility] [address] [place] [address], [place] [phone] * (ABNORMAL) POCT Glucose, blood (07/25/2024 11:26 AM EST) [facility] Signature Glucose POCT 177(H) 70 - 100 mg/dL 07/25/2024 11:27 AM EST [facility] Blood Capillary blood specimen / Unknown 07/25/2024 11:26 AM EST 07/25/2024 11:29 AM EST Generic Provider Poct LAB POINT OF CARE TEST DOCKED DEVICE UNSOLICITED RESULTS Final Result [facility] [address] [place] [address], [place] [phone] documented in this encounter Visit Diagnoses Diagnosis Elevated LFTs- Primary Other abnormal blood chemistry Hypokalemia Hypopotassemia Colon wall thickening Elevated liver transaminase level documented in this encounter Admitting Diagnoses Diagnosis Elevated LFTs Other abnormal blood chemistry documented in this encounter Administered Medications Inactive Administered Medications - up to 3 most recent administrations Medication Order MAR Action Action Date Dose Rate Site amLODIPine (NORVASC) tablet 2.5 mg 2.5 mg, oral, Daily, First dose on 07/26/24 at 0900 Given 07/26/2024 9:47 AM EST 2.5 mg amLODIPine (NORVASC) tablet 5 mg 5 mg, oral, Daily, First dose (after last modification) on 07/27/24 at 0900 Given 07/27/2024 8:13 AM EST 5 mg aspirin chewable tablet 81 mg 81 mg, oral, Every 24 hours, First dose on 07/26/24 at 0900 Given 07/27/2024 8:13 AM EST 81 mg Given 07/26/2024 9:46 AM EST 81 mg gadoterate meglumine (CLARISCAN, DOTAREM) injection 15 mL 15 mL, intravenous, Once in imaging, Starting on 07/26/24 at 1426, For 1 dose Given 07/26/2024 2:40 PM EST 15 mL iopamidoL (ISOVUE-370) 370 mg iodine /mL (76 %) injection 100 mL 100 mL, intravenous, Once in imaging, Starting on Sun07/25/24 at 1725, For 1 dose Given 07/25/2024 5:26 PM EST 90 mL ondansetron (PF) (ZOFRAN) injection 4 mg 4 mg, intravenous, Every 8 hours PRN, vomiting, nausea, Starting on Sun07/25/24 at 2249, -ONLY give IV if patient is unable to take orally. -If inadequate response within 30 minutes, proceed to next-line agent or contact provider if no further options ordered. ondansetron ODT (ZOFRAN-ODT) disintegrating tablet 4 mg 4 mg, oral, Every 8 hours PRN, vomiting, nausea, Starting on Sun07/25/24 at 2249, -Give IV if patient is unable to take orally. -If inadequate response within 30 minutes, proceed to next-line agent or contact provider if no further options ordered. For ODT tablets: -Do not remove from blister pack until just before administering. -Patient should allow tablet to dissolve on tongue. pantoprazole (PROTONIX) EC tablet 40 mg 40 mg, oral, Every morning before breakfast, First dose on 07/26/24 at 0700, Do not crush, chew, or split. Given 07/27/2024 6:31 AM EST 40 mg Given 07/26/2024 6:15 AM EST 40 mg potassium chloride (KLOR-CON M20) CR tablet 40 mEq 40 mEq, oral, Once, On Sun07/26/24 at 0830, For 1 dose, Tablet may be swallowed whole (do not crush/chew/suck on) OR broken in half and each half swallowed separately OR dissolved (whole tablet) in ~4 ounces of water (allow ~2 minutes to dissolve, stir well and administer immediately). Given 07/26/2024 9:47 AM EST 40 mEq potassium chloride (KLOR-CON) packet 40 mEq 40 mEq, oral, Once, On Sun07/25/24 at 1629, For 1 dose, Dissolve each packet in 4 ounces of water = 5 mEq per 1 oz fluid. Given 07/25/2024 6:04 PM EST 40 mEq potassium chloride 10 mEq/100 mL IVPB 10 mEq 10 mEq, intravenous, at 100 mL/hr, Administer over 1 Hours, Every 1 hour, First dose on Sun07/25/24 at 1629, For 2 doses New Bag 07/25/2024 8:40 PM EST 10 mEq 100 mL/hr New Bag 07/25/2024 6:08 PM EST 10 mEq 100 mL/hr prochlorperazine (COMPAZINE) injection 10 mg 10 mg, intravenous, Every 6 hours PRN, nausea, vomiting, Starting on Sun07/25/24 at 2249, 2nd Line Option: -ONLY give IV if patient is unable to take orally. -Give IM if patient does not have IV Access -If inadequate response within 30 minutes, proceed to next-line agent or contact provider if no further options ordered. prochlorperazine (COMPAZINE) suppository 25 mg 25 mg, rectal, Every 12 hours PRN, nausea, vomiting, Starting on Sun07/25/24 at 2249, 2nd Line Option: -ONLY give NH if patient is unable to take orally and cannot receive IV/IM. -If inadequate response within 30 minutes, proceed to next-line agent or contact provider if no further options ordered. prochlorperazine (COMPAZINE) tablet 10 mg 10 mg, oral, Every 6 hours PRN, nausea, vomiting, Starting on Sun07/25/24 at 2249, 2nd Line Option: -Give IV or IM if patient is unable to take orally. -If inadequate response within 30 minutes, proceed to next-line agent or contact provider if no further options ordered. sodium chloride 0.9 % flush 10 mL 10 mL, intravenous, Once, On Sun07/25/24 at 1726, For 1 dose Given 07/25/2024 5:26 PM EST 10 mL sodium chloride 0.9 % flush 10 mL 10 mL, intravenous, 2 times daily, First dose on Sun07/25/24 at 2315 Given 07/27/2024 8:13 AM EST 10 mL Given 07/26/2024 9:14 PM EST 10 mL Given 07/26/2024 9:46 AM EST 10 mL sodium chloride 0.9 % flush 10 mL 10 mL, intravenous, As needed, line care, Starting on Sun07/25/24 at 2249 documented in this encounter Discontinued Medications Medication Sig Discontinue Reason Start Date End Da te amLODIPine (NORVASC) 2.5 mg tablet Take 1 tablet (2.5 mg total) by mouth 1 (one) time each day. 07/17/2024 07/27/2024 atorvastatin (LIPITOR) 80 mg tablet Take 1 tablet (80 mg total) by mouth 1 (one) time each day. 07/17/2024 07/27/2024 amantadine (SYMMETREL) 10 mg/mL solution Take 5 mL (50 mg total) by mouth 2 (two) times a day. Stop Taking at Discharge 07/10/2024 07/27/2024 documented as of this encounter Historical Medications * This list may reflect changes made after this encounter. oxyCODONE (ROXICODONE) 5 mg immediate release tablet Take 1 tablet (5 mg total) by mouth every 4 (four) hours if needed for severe pain. Max Daily Amount: 30 mg docusate sodium (COLACE) 100 mg capsule Take 1 capsule (100 mg total) by mouth 2 (two) times a day if needed for constipation. omeprazole (PriLOSEC) [address] capsule Take 1 capsule (40 mg total) by mouth 1 (one) time each day at the same time. 07/19/2024 baclofen (LIORESAL) 10 mg tablet Take 1 tablet (10 mg total) by mouth 2 (two) times a day if needed for muscle spasms. 07/18/2024 aspirin 81 mg chewable tablet Chew 1 tablet (81 mg total) 1 (one) time each day at the same time. 07/19/2024 atorvastatin (LIPITOR) 80 mg tablet Take 1 tablet (80 mg total) by mouth 1 (one) time each day. 07/17/2024 07/27/2024 amLODIPine (NORVASC) 2.5 mg tablet Take 1 tablet (2.5 mg total) by mouth 1 (one) time each day. 07/17/2024 07/27/2024 amantadine (SYMMETREL) 10 mg/mL solution Take 5 mL (50 mg total) by mouth 2 (two) times a day. 07/10/2024 07/27/2024 added in this encounter Active and Recently Administered Medications Times are shown in EST. Scheduled Medication Order 07/25/2024 07/26/2024 07/27/2024 amLODIPine (NORVASC) tablet 2.5 mg (CANCELED) 2.5 mg, oral, Daily, First dose on 07/26/24 at 0900 0947 (Given - Provider: Magui Ruff, PAYTON) amLODIPine (NORVASC) tablet 5 mg 5 mg, oral, Daily, First dose (after last modification) on 07/27/24 at 0900 0813 (Given - Provider: Radha Hinds, PAYTON) aspirin chewable tablet 81 mg 81 mg, oral, Every 24 hours, First dose on 07/26/24 at 0900 0946 (Given - Provider: Magui Ruff, PAYTON) 0813 (Given - Provider: Radha Hinds, RN) gadoterate meglumine (CLARISCAN, DOTAREM) injection 15 mL (COMPLETED) 15 mL, intravenous, Once in imaging, Starting on 07/26/24 at 1426, For 1 dose 1440 (Given - Provider: Yamel Bai) iopamidoL (ISOVUE-370) 370 mg iodine /mL (76 %) injection 100 mL (COMPLETED) 100 mL, intravenous, Once in imaging, Starting on Sun07/25/24 at 1725, For 1 dose 1726 (Given - Provider: Annemarie Joaquin) pantoprazole (PROTONIX) EC tablet 40 mg 40 mg, oral, Every morning before breakfast, First dose on 07/26/24 at 0700, Do not crush, chew, or split. 0615 (Given - Provider: Yudy Tanner, RN) 0631 (Given - Provider: Valerie Tolentino, RN) potassium chloride (KLOR-CON M20) CR tablet 40 mEq (COMPLETED) 40 mEq, oral, Once, On Sun07/26/24 at 0830, For 1 dose, Tablet may be swallowed whole (do not crush/chew/suck on) OR broken in half and each half swallowed separately OR dissolved (whole tablet) in ~4 ounces of water (allow ~2 minutes to dissolve, stir well and administer immediately). 0947 (Given - Provider: Magui Ruff, RN) potassium chloride (KLOR-CON) packet 40 mEq (COMPLETED) 40 mEq, oral, Once, On Sun07/25/24 at 1629, For 1 dose, Dissolve each packet in 4 ounces of water = 5 mEq per 1 oz fluid. 1804 (Given - Provider: Nina Crocker RN) potassium chloride 10 mEq/100 mL IVPB 10 mEq (COMPLETED) 10 mEq, intravenous, at 100 mL/hr, Administer over 1 Hours, Every 1 hour, First dose on Sun07/25/24 at 1629, For 2 doses 1808 (New Bag - Provider: Nina Crocker RN)2040 (New Bag - Provider: Nina Crocker, RN)2307 (Stopped - Provider: Yudy Tanner, PAYTON)2314 (Stopped - Provider: Yudy Tanner RN - Comment: not infusing) sodium chloride 0.9 % flush 10 mL (COMPLETED) 10 mL, intravenous, Once, On Sun07/25/24 at 1726, For 1 dose 1726 (Given - Provider: Annemarie Joaquin) sodium chloride 0.9 % flush 10 mL(Linked Group 1) 10 mL, intravenous, 2 times daily, First dose on Sun07/25/24 at 2315 2307 (Given - Provider: Yudy Tanner, PAYTON) 0946 (Given - Provider: Magui Ruff, RN)2114 (Given - Provider: Valerie Tolentino, RN) 0813 (Given - Provider: Radha Hinds, PAYTON) PRN Medication Order 07/25/2024 07/26/2024 07/27/2024 baclofen (LIORESAL) tablet 10 mg 10 mg, oral, 2 times daily PRN, muscle spasms, Starting on Sun07/26/24 at 0900 ibuprofen (ADVIL,MOTRIN) tablet 200 mg 200 mg, oral, Every 6 hours PRN, mild pain, Starting on Sun07/25/24 at 2249, Administer with food or milk to decrease GI upset ondansetron (PF) (ZOFRAN) injection 4 mg(Linked Group 2) 4 mg, intravenous, Every 8 hours PRN, vomiting, nausea, Starting on Sun07/25/24 at 2249, -ONLY give IV if patient is unable to take orally. -If inadequate response within 30 minutes, proceed to next-line agent or contact provider if no further options ordered. ondansetron ODT (ZOFRAN-ODT) disintegrating tablet 4 mg(Linked Group 2) 4 mg, oral, Every 8 hours PRN, vomiting, nausea, Starting on Sun07/25/24 at 2249, -Give IV if patient is unable to take orally. -If inadequate response within 30 minutes, proceed to next-line agent or contact provider if no further options ordered. For ODT tablets: -Do not remove from blister pack until just before administering. -Patient should allow tablet to dissolve on tongue. polyethylene glycol (MIRALAX) packet 17 g 17 g, oral, Daily PRN, constipation, Starting on Sun07/25/24 at 2249, Bowel Regimen - for prevention of constipation prochlorperazine (COMPAZINE) injection 10 mg(Linked Group 3) 10 mg, intravenous, Every 6 hours PRN, nausea, vomiting, Starting on Sun07/25/24 at 2249, 2nd Line Option: -ONLY give IV if patient is unable to take orally. -Give IM if patient does not have IV Access -If inadequate response within 30 minutes, proceed to next-line agent or contact provider if no further options ordered. prochlorperazine (COMPAZINE) suppository 25 mg(Linked Group 3) 25 mg, rectal, Every 12 hours PRN, nausea, vomiting, Starting on Sun07/25/24 at 2249, 2nd Line Option: -ONLY give NH if patient is unable to take orally and cannot receive IV/IM. -If inadequate response within 30 minutes, proceed to next-line agent or contact provider if no further options ordered. prochlorperazine (COMPAZINE) tablet 10 mg(Linked Group 3) 10 mg, oral, Every 6 hours PRN, nausea, vomiting, Starting on Sun07/25/24 at 2249, 2nd Line Option: -Give IV or IM if patient is unable to take orally. -If inadequate response within 30 minutes, proceed to next-line agent or contact provider if no further options ordered. sodium chloride 0.9 % flush 10 mL(Linked Group 1) 10 mL, intravenous, As needed, line care, Starting on Sun07/25/24 at 2249 Linked Groups Order Group 1: Insert peripheral IV (CANCELED) STAT, Once, On Sun07/25/24 at 2250, For 1 occurrence And Maintain IV access (CANCELED) Until discontinued, Starting on Sun07/25/24 at 2250, Until Specified And Saline lock IV (CANCELED) Routine, Once, On Sun07/25/24 at 2250, For 1 occurrence And sodium chloride 0.9 % flush 10 mLJump to med 10 mL, intravenous, 2 times daily, First dose on Sun07/25/24 at 2315 And sodium chloride 0.9 % flush 10 mLJump to med 10 mL, intravenous, As needed, line care, Starting on Sun07/25/24 at 2249 Group 2: ondansetron ODT (ZOFRAN-ODT) disintegrating tablet 4 mgJump to med 4 mg, oral, Every 8 hours PRN, vomiting, nausea, Starting on Sun07/25/24 at 2249, -Give IV if patient is unable to take orally. -If inadequate response within 30 minutes, proceed to next-line agent or contact provider if no further options ordered. For ODT tablets: -Do not remove from blister pack until just before administering. -Patient should allow tablet to dissolve on tongue. Or ondansetron (PF) (ZOFRAN) injection 4 mgJump to med 4 mg, intravenous, Every 8 hours PRN, vomiting, nausea, Starting on Sun07/25/24 at 2249, -ONLY give IV if patient is unable to take orally. -If inadequate response within 30 minutes, proceed to next-line agent or contact provider if no further options ordered. Group 3: prochlorperazine (COMPAZINE) tablet 10 mgJump to med 10 mg, oral, Every 6 hours PRN, nausea, vomiting, Starting on Sun07/25/24 at 2249, 2nd Line Option: -Give IV or IM if patient is unable to take orally. -If inadequate response within 30 minutes, proceed to next-line agent or contact provider if no further options ordered. Or prochlorperazine (COMPAZINE) injection 10 mgJump to med 10 mg, intravenous, Every 6 hours PRN, nausea, vomiting, Starting on Sun07/25/24 at 2249, 2nd Line Option: -ONLY give IV if patient is unable to take orally. -Give IM if patient does not have IV Access -If inadequate response within 30 minutes, proceed to next-line agent or contact provider if no further options ordered. Or prochlorperazine (COMPAZINE) suppository 25 mgJump to med 25 mg, rectal, Every 12 hours PRN, nausea, vomiting, Starting on Sun07/25/24 at 2249, 2nd Line Option: -ONLY give NH if patient is unable to take orally and cannot receive IV/IM. -If inadequate response within 30 minutes, proceed to next-line agent or contact provider if no further options ordered. documented in this encounter Orders Medications Ordered That Mike ht Not Have Been Administered Count Last Ordered Date First Ordered Date amantadine (SYMMETREL) solution 50 mg 1 baclofen (LIORESAL) tablet 10 mg 1 07/26/19 ibuprofen (ADVIL,MOTRIN) tablet 200 mg 1 ondansetron (PF) (ZOFRAN) injection 4 mg 1 07/25/2024 ondansetron ODT (ZOFRAN-ODT) disintegrating tablet 4 mg 1 07/25/2024 polyethylene glycol (MIRALAX) packet 17 g 1 07/25/2024 prochlorperazine (COMPAZINE) injection 10 mg 1 07/25/2024 prochlorperazine (COMPAZINE) suppository 25 mg 1 07/25/2024 prochlorperazine (COMPAZINE) tablet 10 mg 1 07/25/2024 sodium chloride 0.9 % flush 10 mL 1 025 Admission Count Last Ordered Date First Orde red Date ADMIT TO INPATIENT 1 07/25/2024 Transfer Count Last Ordered Date First Orde red Date ED TO FLOOR BED REQUEST 1 07/25/2024 Discharge Count Last Ordered Date First Orde red Date DISCHARGE PATIENT 1 07/27/2024 documented in this encounter Additional Health Concerns Infection Onset Date Last Indicated Resolved Time Respiratory Rule-Out 07/26/2024 07/26/2024 025 3:02 AM EST COVID-19 Rule-Out 07/26/2024 07/26/2024 07/26/2024 3:02 AM EST documented as of this encounter Care Teams Family Practice Nurse Practitioner Relationship Specialty Start Date End Date Leonardo García MD [address] [place] [id number] PCP - General Internal Medicine 06/30/24 documented as of this encounter
--- OUTSIDE RECORDS SUMMARY | 2024-07-28 07:40 | XMS_ITS | Encounter Summary ---
Author Organization [facility] Address [address] [place] [address] Care Team Providers Care Dynamics Ax Consultant Name Role Phone Leonardo García MD Primary Care Provider Encounter Details Date Type Department Care Team (Late st Contact Info) Description 07/06/2024 Lab Requisition [facility] - Main Lab [address] [facility] [place] [id number] Chris Barlow MD [address] [place] [id number] Encounter for other general examination Social History [...] (ABNORMAL) Culture urine (07/06/2024 10:07 AM EST) Pathologist [facility] Culture, Urine >100,000 CFU/mL Escherichia coli(A) JUDIE 07/08/2024 8:28 AM EST [facility] Urine Urine specimen obtained by clean [...] Chris Barlow MD LAB MICROBIOLOGY - GENERAL ORDE GONZALEZ Final Result [facility] [address] [place] [address], [place] [phone] * Jay urine culture tube (07/06/2024 10:07 AM EST) Extra Tube Hold for add-ons. 07/06/2024 4:01 PM [facility] Comment:Auto resulted. Urine Urine specimen obtained by clean catch procedure / Unknown 07/06/2024 10:07 AM EST 07/06/2024 2:09 PM EST us Chris Barlow MD LAB URINE ORDERABLES Final Resu lt [facility] [address] [place] [address], [place] [phone] * (ABNORMAL) Urinalysis with reflex microscopic and culture (07/06/2024 10:07 AM EST) [facility] Specific [place] Urine 1.022 1.003 - 1.030 LAB URINALYSIS - AUTOMATED METHOD 07/06/2024 3:05 PM [facility] pH, Urine 5.5 5.0 - 8.0 pH LAB URINALYSIS - AUTOMATED METHOD 07/06/2024 3:05 PM [facility] Leukocytes, Urine Large(A) Negative LAB URINALYSIS - AUTOMATED METHOD 07/06/2024 3:05 PM [facility] Nitrite, Urine Positive(A) Negative LAB URINALYSIS - AUTOMATED METHOD 07/06/2024 3:05 PM [facility] Protein, Urine Negative <=Trace mg/dL LAB URINALYSIS - AUTOMATED METHOD 07/06/2024 3:05 PM [facility] Glucose, Urine Negative Negative mg/dL LAB URINALYSIS - AUTOMATED METHOD 07/06/2024 3:05 PM [facility] Ketones, Urine Negative Negative mg/dL LAB URINALYSIS - AUTOMATED METHOD 07/06/2024 3:05 PM [facility] Urobilinogen , Urine 1.0 0.2 - 1.0 mg/dL LAB URINALYSIS - AUTOMATED METHOD 07/06/2024 3:05 PM EST [facility] Bilirubin, Urine Negative Negative LAB URINALYSIS - AUTOMATED METHOD 07/06/2024 3:05 PM EST [facility] Blood, Urine Trace(A) Negative LAB URINALYSIS - AUTOMATED METHOD 07/06/2024 3:05 PM EST [facility] Urine Urine specimen obtained by clean catch procedure / Unknown 07/06/2024 10:07 AM EST 07/06/2024 2:07 PM EST us Chris Barlow MD LAB URINE ORDERABLES Final Resu lt [facility] [address] [place] [address], documented in this encounter Visit Diagnoses Diagnosis Encounter for other general examination documented in this encounter Additional Health Concerns Infection Onset Date Last Indicated Resolved Time Respiratory Rule-Out 07/26/2024 07/26/2024 025 3:02 AM EST COVID-19 Rule-Out 07/26/2024 07/26/2024 07/26/2024 3:02 AM EST documented as of this encounter Care Teams Dynamics Ax Consultant Relationship Specialty Start Date End Date Leonardo García MD [address] [place] [id number] PCP - General Internal Medicine 06/30/24 documented as of this encounter
--- OUTSIDE RECORDS SUMMARY | 2024-07-28 07:40 | XMS_ITS | Encounter Summary ---
Author Organization [facility] [place] [address] Care Team Providers Care Electronic Assembler Name Role Phone Leonardo García MD Primary Care Provider [phone] Encounter Details Date Type Department Care Team (Late st Contact Info) Description 06/23/2024 Lab Requisition [facility] - Main Lab 299 [facility] [place] [address] Chris Barlow MD [address] [place] [address] Encounter for other general examination Social History [...] Results * Magnesium (06/23/2024 5:46 AM EST) Pathologist [facility] Magnesium 2.1 1.9 - 2.6 mg/dL LAB CHEMISTRY METHOD 06/23/2024 12:17 PM [facility] Blood Venous blood specimen / Unknown Venipuncture / Unknown 06/23/2024 5:46 AM EST 06/23/2024 10:54 AM EST us Chris Barlow MD LAB BLOOD ORDERABLES Final Resu lt [facility] [address] [place] [address], [place] [phone] * (ABNORMAL) Basic metabolic panel (06/23/2024 5:46 AM EST) [facility] Sodium 137 133 - 145 mmol/L LAB CHEMISTRY METHOD 06/23/2024 12:24 PM [facility] Potassium 3.7 3.5 - 5.5 mmol/L LAB CHEMISTRY METHOD 06/23/2024 12:24 PM [facility] Chloride 100 96 - 110 mmol/L LAB CHEMISTRY METHOD 06/23/2024 12:24 PM [facility] CO2 29 21 - 32 mmol/L LAB CHEMISTRY METHOD 06/23/2024 12:24 PM [facility] Anion Gap 8 3 - 11 LAB CHEMISTRY METHOD 06/23/2024 12:24 PM [facility] Glucose 106(H) 70 - 100 mg/dL LAB CHEMISTRY METHOD 06/23/2024 12:24 PM [facility] BUN 23 5 - 25 mg/dL LAB CHEMISTRY METHOD 06/23/2024 12:24 PM [facility] Creatinine 0.83 0.50 - 1.10 mg/dL LAB CHEMISTRY METHOD 06/23/2024 12:24 PM [facility] eGFR 70 >=60 mL/min/1. 73m2 LAB CHEMISTRY METHOD 06/23/2024 12:24 PM EST [facility] Comment:Calculation based on the??Chronic Kidney Disease Epidemiology Collaboration (CKD-EPI) equation refit??without adjustment for race. BUN/Creatinine Ratio 27.7 LAB CHEMISTRY METHOD 06/23/2024 12:24 PM [facility] Calcium 8.4(L) 8.5 - 10.5 mg/dL LAB CHEMISTRY METHOD 06/23/2024 12:24 PM [facility] Blood Venous blood specimen / Unknown Venipuncture / Unknown 06/23/2024 5:46 AM EST 06/23/2024 10:54 AM EST us Chris Barlow MD LAB BLOOD ORDERABLES Final Resu lt [facility] [address] [place] [address], documented in this encounter Visit Diagnoses Diagnosis Encounter for other general examination documented in this encounter Additional Health Concerns Infection Onset Date Last Indicated Resolved Time Respiratory Rule-Out 07/26/2024 07/26/2024 025 3:02 AM EST COVID-19 Rule-Out 07/26/2024 07/26/2024 07/26/2024 3:02 AM EST documented as of this encounter Care Teams Electronic Assembler Relationship Specialty Start Date End Date Leonardo García MD [address] [place] [id number] PCP - General Internal Medicine 06/30/24 documented as of this encounter
--- OUTSIDE RECORDS SUMMARY | 2024-07-28 07:40 | XMS_ITS | Encounter Summary ---
Author Organization [facility] [address] Care Team Providers Care Slip Seat Coverer Name Role Phone Leonardo García MD Primary Care Provider [phone] Encounter Details Date Type Department Care Team (Late st Contact Info) Description 07/05/2024 Lab Requisition [facility] - Main Lab [address] [facility] [place] [address] Chris Barlow MD [address] [place] [address] Encounter for other general examination Social History [...] CBC auto differential (07/05/2024 7:00 AM EST) [facility] Signature WBC 9.9 4.8 - 10.8 K/mcL LAB HEMETOLOGY METHOD 07/05/2024 11:42 AM [facility] RBC 3.60(L) 3.80 - 4.80 M/mcL LAB HEMETOLOGY METHOD 07/05/2024 11:42 AM [facility] Hemoglobin 10.7(L) 11.5 - 16.0 g/dL LAB HEMETOLOGY METHOD 07/05/2024 11:42 AM [facility] Hematocrit 32.8(L) 35.0 - 47.0 % LAB HEMETOLOGY METHOD 07/05/2024 11:42 AM [facility] MCV 92.1 79.0 - 98.0 FL LAB HEMETOLOGY METHOD 07/05/2024 11:42 AM [facility] MCH 30.1 27.0 - 32.0 pcg LAB HEMETOLOGY METHOD 07/05/2024 11:42 AM [facility] MCHC 32.6 32.0 - 37.0 g/dL LAB HEMETOLOGY METHOD 07/05/2024 11:42 AM [facility] RDW 14.2 11.0 - 15.0 % LAB HEMETOLOGY METHOD 07/05/2024 11:42 AM [facility] Platelets 439(H) 130 - 400 K/mcL LAB HEMETOLOGY METHOD 07/05/2024 11:42 AM [facility] MPV 8.9 7.0 - 11.0 FL LAB HEMETOLOGY METHOD 07/05/2024 11:42 AM [facility] NRBC 0.0 <1.0 % LAB HEMETOLOGY METHOD 07/05/2024 11:42 AM [facility] NRBC Absolute 0.00 <0.10 K/mcL LAB HEMETOLOGY METHOD 07/05/2024 11:42 AM [facility] Neutrophils Relative 71.2 % LAB HEMETOLOGY METHOD 07/05/2024 11:42 AM [facility] Lymphocytes Relative 16.3 % LAB HEMETOLOGY METHOD 07/05/2024 11:42 AM [facility] Monocytes Relative 10.4 % LAB HEMETOLOGY METHOD 07/05/2024 11:42 AM [facility] Eosinophils Relative 1.2 % LAB HEMETOLOGY METHOD 07/05/2024 11:42 AM [facility] Basophils Relative 0.4 % LAB HEMETOLOGY METHOD 07/05/2024 11:42 AM [facility] Immature Granulocytes Relative 0.5 % LAB HEMETOLOGY METHOD 07/05/2024 11:42 AM [facility] Neutrophils Absolute 7.06(H) 1.50 - 7.00 K/mcL LAB HEMETOLOGY METHOD 07/05/2024 11:42 AM [facility] Lymphocytes Absolute 1.62 1.00 - 5.00 K/mcL LAB HEMETOLOGY METHOD 07/05/2024 11:42 AM [facility] Monocytes Absolute 1.03(H) 0.20 - 1.00 K/mcL LAB HEMETOLOGY METHOD 07/05/2024 11:42 AM [facility] Eosinophils Absolute 0.12 0.00 - 0.50 K/mcL LAB HEMETOLOGY METHOD 07/05/2024 11:42 AM [facility] Basophils Absolute 0.04 0.00 - 0.20 K/mcL LAB HEMETOLOGY METHOD 07/05/2024 11:42 AM [facility] Immature Granulocytes Absolute 0.05(H) 0.00 - 0.03 K/mcL LAB HEMETOLOGY METHOD 07/05/2024 11:42 AM EST [facility] Blood Venous blood specimen / Unknown Venipuncture / Unknown 07/05/2024 7:00 AM EST 07/05/2024 10:39 AM EST Chris Barlow MD LAB BLOOD ORDERABLES Final Resu lt Performing Organization Address City/[facility]/ZIP Co de Phone Number [facility] [address] [place] [address], [place] [phone] * Magnesium (07/05/2024 7:00 AM EST) Pathologist [facility] Magnesium 2.4 1.9 - 2.6 mg/dL LAB CHEMISTRY METHOD 07/05/2024 12:15 PM EST [facility] Blood Venous blood specimen / Unknown Venipuncture / Unknown 07/05/2024 7:00 AM EST 07/05/2024 10:39 AM EST Chris Barlow MD LAB BLOOD ORDERABLES Final Resu lt Performing Organization Address [facility]/ZIP Co de Phone Number [facility] [address] [place] [address], [place] [phone] * (ABNORMAL) Comprehensive metabolic panel (07/05/2024 7:00 AM EST) Sodium 132(L) 133 - 145 mmol/L LAB CHEMISTRY METHOD 07/05/2024 12:14 PM EST [facility] Potassium 4.3 3.5 - 5.5 mmol/L LAB CHEMISTRY METHOD 07/05/2024 12:14 PM EST [facility] Chloride 98 96 - 110 mmol/L LAB CHEMISTRY METHOD 07/05/2024 12:14 PM EST [facility] CO2 28 21 - 32 mmol/L LAB CHEMISTRY METHOD 07/05/2024 12:14 PM [facility] Anion Gap 6 3 - 11 LAB CHEMISTRY METHOD 07/05/2024 12:14 PM [facility] Glucose 95 70 - 100 mg/dL LAB CHEMISTRY METHOD 07/05/2024 12:14 PM [facility] BUN 21 5 - 25 mg/dL LAB CHEMISTRY METHOD 07/05/2024 12:14 PM [facility] Creatinine 0.80 0.50 - 1.10 mg/dL LAB CHEMISTRY METHOD 07/05/2024 12:14 PM [facility] eGFR 74 >=60 mL/min/1. 73m2 LAB CHEMISTRY METHOD 07/05/2024 12:14 PM [facility] Comment:Calculation based on the??Chronic Kidney Disease Epidemiology Collaboration (CKD-EPI) equation refit??without adjustment for race. BUN/Creatinine Ratio 26.3 LAB CHEMISTRY METHOD 07/05/2024 12:14 PM [facility] Calcium 8.9 8.5 - 10.5 mg/dL LAB CHEMISTRY METHOD 07/05/2024 12:14 PM [facility] AST (SGOT) 20 10 - 42 unit/L LAB CHEMISTRY METHOD 07/05/2024 12:14 PM [facility] ALT (SGPT) 50 10 - 60 unit/L LAB CHEMISTRY METHOD 07/05/2024 12:14 PM [facility] Alkaline Phosphatase 203(H) 42 - 121 unit/L LAB CHEMISTRY METHOD 07/05/2024 12:14 PM [facility] Total Protein 6.1 6.0 - 8.0 g/dL LAB CHEMISTRY METHOD 07/05/2024 12:14 PM [facility] Albumin 3.5 3.2 - 5.0 g/dL LAB CHEMISTRY METHOD 07/05/2024 12:14 PM [facility] Total Bilirubin 0.9 0.0 - 1.4 mg/dL LAB CHEMISTRY METHOD 07/05/2024 12:14 PM EST [facility] Blood Venous blood specimen / Unknown Venipuncture / Unknown 07/05/2024 7:00 AM EST 07/05/2024 10:39 AM EST us Chris Barlow MD LAB BLOOD ORDERABLES Final Resu lt [facility] [address] [place] [address], documented in this encounter Visit Diagnoses Diagnosis Encounter for other general examination documented in this encounter Additional Health Concerns Infection Onset Date Last Indicated Resolved Time Respiratory Rule-Out 07/26/2024 07/26/2024 025 3:02 AM EST COVID-19 Rule-Out 07/26/2024 07/26/2024 07/26/2024 3:02 AM EST documented as of this encounter Care Teams Slip Seat Coverer Relationship Specialty Start Date End Date Leonardo García MD [address] [place] [id number] PCP - General Internal Medicine 06/30/24 documented as of this encounter
--- OUTSIDE RECORDS SUMMARY | 2024-07-28 07:40 | XMS_ITS ---
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
--- OUTSIDE RECORDS SUMMARY | 2024-07-28 07:40 | XMS_ITS | Clinical Summary ---
Author Organization [facility] Address [address] [place] [address] Care Team Providers Care Apparatus Lineman Name Role Phone Unavailable Primary Care Provider [...]
--- OUTSIDE RECORDS SUMMARY | 2024-07-28 07:40 | XMS_ITS | Encounter Summary ---
Author Organization [facility] Address [address] [place] [address] Care Team Providers Care Wet Mixer Name Role Phone Leonardo García MD Primary Care Provider [phone] Encounter Details Date Type Department Care Team (Late st Contact Info) Description 06/22/2024 Lab Requisition [facility] - Main Lab [address] [facility] [place] [address] Chris Barlow MD [address] [place] [address] Encounter for other general examination Social History [...] mmol/L LAB CHEMISTRY METHOD 06/22/2024 9:17 AM [facility] Potassium 3.4(L) 3.5 - 5.5 mmol/L LAB CHEMISTRY METHOD 06/22/2024 9:17 AM [facility] Chloride 101 96 - 110 mmol/L LAB CHEMISTRY METHOD 06/22/2024 9:17 AM [facility] CO2 28 21 - 32 mmol/L LAB CHEMISTRY METHOD 06/22/2024 9:17 AM [facility] Anion Gap 8 3 - 11 LAB CHEMISTRY METHOD 06/22/2024 9:17 AM [facility] Glucose 128(H) 70 - 100 mg/dL LAB CHEMISTRY METHOD 06/22/2024 9:17 AM [facility] BUN 14 5 - 25 mg/dL LAB CHEMISTRY METHOD 06/22/2024 9:17 AM [facility] Creatinine 0.60 0.50 - 1.10 mg/dL LAB CHEMISTRY METHOD 06/22/2024 9:17 AM [facility] eGFR 90 >=60 mL/min/1. 73m2 LAB CHEMISTRY METHOD 06/22/2024 9:17 AM [facility] Comment:Calculation based on the??Chronic Kidney Disease Epidemiology Collaboration (CKD-EPI) equation refit??without adjustment for race. BUN/Creatinine Ratio 23.3 LAB CHEMISTRY METHOD 06/22/2024 9:17 AM [facility] Calcium 8.3(L) 8.5 - 10.5 mg/dL LAB CHEMISTRY METHOD 06/22/2024 9:17 AM [facility] Blood Venous blood specimen / Unknown Venipuncture / Unknown 06/22/2024 6:05 AM EST 06/22/2024 8:27 AM EST us Chris Barlow MD LAB BLOOD ORDERABLES Final Resu lt [facility] [address] [place], [place] [address] [phone] documented in this encounter Visit Diagnoses Diagnosis Encounter for other general examination documented in this encounter Additional Health Concerns Infection Onset Date Last Indicated Resolved Time Respiratory Rule-Out 07/26/2024 07/26/2024 025 3:02 AM EST COVID-19 Rule-Out 07/26/2024 07/26/2024 07/26/2024 3:02 AM EST documented as of this encounter Care Teams Wet Mixer Relationship Specialty Start Date End Date Leonardo García MD [address] [place] [id number] PCP - General Internal Medicine 06/30/24 documented as of this encounter
--- OUTSIDE RECORDS SUMMARY | 2024-07-28 07:40 | XMS_ITS | Clinical Summary ---
Author Organization [address] Address [address] [place] [phone] Phone Care Team Providers Care Bus Person Dishwasher Name Role Phone Leonardo García MD Primary Care Provider [phone] Allergies No known active allergies Medications aspirin 81 mg chewable tablet Chew 1 tablet (81 mg total) 1 (one) time each day at the same time. 07/19/19 25 Active baclofen (LIORESAL) 10 mg tablet Take 1 tablet (10 mg total) by mouth 2 (two) times a day if needed for muscle spasms. 07/18/19 25 Active omeprazole (PriLOSEC) [address] capsule Take 1 capsule (40 mg total) by mouth 1 (one) time each day at the same time. 07/19/19 25 Active docusate sodium (COLACE) 100 mg capsule Take 1 capsule (100 mg total) by mouth 2 (two) times a day if needed for constipation. Active oxyCODONE (ROXICODONE) 5 mg immediate release tablet Take 1 tablet (5 mg total) by mouth every 4 (four) hours if needed for severe pain. Max Daily Amount: 30 mg Active atorvastatin (LIPITOR) 80 mg tablet Take 1 tablet (80 mg total) by mouth 1 (one) time each day. HOLD THIS MEDICATION UNTIL LIVER FUNCTION TESTS IMPROVE AND YOU ARE INSTRUCTED TO RESUME 07/27/19 25 Active amLODIPine (NORVASC) 2.5 mg tablet Take 2 tablets (5 mg total) by mouth 1 (one) time each day. 07/27/19 Active amantadine (SYMMETREL) 10 mg/mL solution Take 5 mL (50 mg total) by mouth 2 (two) times a day. 07/10/19 025 Discontinued(St op Taking at Discharge) amLODIPine (NORVASC) 2.5 mg tablet Take 1 tablet (2.5 mg total) by mouth 1 (one) time each day. 07/17/19 025 Discontinued atorvastatin (LIPITOR) 80 mg tablet Take 1 tablet (80 mg total) by mouth 1 (one) time each day. 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 07/18/2024 Gastro-esophageal reflux disease without esophag itis 07/18/2024 Adult failure to thrive 07/18/2024 Rosacea 09/07/2021 Insomnia 11/01/2018 Essential hypertension 04/30/2018 Encounters Date Type Department Care Team Description 07/25/2024 11:18 AM EST - 07/27/2024 1:30 PM [facility] Hospital Encounter [facility] Urology [address] [place] [address] Jomar Booth MD Surendran, Anupama, MD Hypokalemia (Primary Dx); Colon wall thickening; Elevated liver transaminase level Discharge Disposition: [facility] 07/07/2024 Lab Requisition [facility] Lab [address] [place] [phone] Chris Barlow MD Encounter for other general examination 07/06/2024 Lab Requisition [facility] Lab [address] [place] [phone] Chris Barlow MD Encounter for other general examination 07/05/2024 Lab Requisition [facility] Lab [address] [place] [phone] Chris Barlow MD Encounter for other general examination 06/29/2024 Lab Requisition [facility] Lab [address] [place] [phone] Chris Barlow MD Encounter for other general examination 06/23/2024 Lab Requisition [facility] Lab [address] [place] [phone] Chris Barlow MD Encounter for other general examination 06/22/2024 Lab Requisition [facility] Lab [address] [place] [phone] Chris Barlow MD Encounter for other general examination 06/21/2024 Lab Requisition [facility] Lab [address] [place] [phone] Chris Barlow MD Encounter for other general [...] LAMINECTOMY DECOMPRESSION; Surgeon: Emeka Lopez MD; Location: [facility]; Service: Spine; Laterality: Bilateral Posterior; LUMBAR FUSION 08/30/2017 Bilateral Posterior PROCEDURE:LUMBAR FUSION;COMMENT:Procedure: L4 - 5 FUSION SPINE LUMBAR POSTERIOR, INSTRUMENTED ARTHRODESIS; Surgeon: Emeka Lopez MD; Location: [facility]; Service: Spine; Laterality: Bilateral Posterior; AUTOGRAFT/SPINE SURGERY 08/30/2017 Left PROCEDURE:AUTOGRAFT/SPINE SURGERY;COMMENT:Procedure: AUTOGRAFT BONE SPINE; Surgeon: Emeka Lopez MD; Location: [facility]; Service: Spine; Laterality: Left; TOTAL KNEE ARTHROPLASTY 01/03/2021 Left PROCEDURE:TOTAL KNEE ARTHROPLASTY TOTAL HIP ARTHROPLASTY 02/16/2022 Left PROCEDURE:TOTAL HIP ARTHROPLASTY;COMMENT:Proce dure: REPLACEMENT TOTAL HIP; Surgeon: Ottoniel Wells MD; Location: [facility] Service: Orthopedics; [...] Mass Index 28.32 07/25/2024 11:27 AM EST Plan of Treatment Health Maintenance Due Date Last Done Comments Pneumococcal Vaccine: 50+ Years (1 of 2 - PCV) 1961 Zoster Vaccines (1 of 2) 1961 RSV Immunization Patients 60+ Years Old (1 - 1-dose 75+ series) 2017 Cholesterol Screening (Lipid Panel) 05/06/2022 Depression Screening 05/06/2022 Medicare Annual Wellness Visit 05/06/2022 Osteoporosis Screening (Bone Density Screening) 05/06/2022 Social Influencers of Health Screening 05/06/2022 Falls Risk Assessment 07/27/2025 07/27/2024 Hypertension/CHF/CAD Annual BMP Blood Test 07/27/2025 07/27/2024, 07/26/2024, 07/26/2024, Additional history exists DTaP,Tdap,and Td Vaccines (2 - Td or Tdap) 08/24/2028 08/24/2018 COVID-19 Vaccine Completed 03/04/2024, 07/2022, 05/11/2021, Additional history exists Influenza Vaccine Completed 03/04/2024, , 07/06/2022, Additional history exists HIB Vaccines Aged Out No longer eligi [...] 20 months Aged Out No longer eligible based on patient's age to complete this topic Varicella Vaccines Aged Out No longer eligible based on patient's age to complete this topic Medical Devices Implanted Type Area Wheel Filler Device Identifier Shelf Expiration Date Model / Serial / Lot Cement Bone Surg Simplex Radiopq [facility] [id number] Implanted:Qty: 1 on 02/16/2022 by Ottoniel Wells MD Left: Hip [employer] [id number] 05/03/2023 6191-1-010 / / [id number] Hip Head Delta Biolox 36mm-2.5 [facility] [id number] Implanted:Qty: 1 on 02/16/2022 by Ottoniel Wells MD Left: Hip [employer] [id number] 11/10/2026 6570-0-436 / / [id number] Cement Bone Surg Simplex Radiopq Stry-Howm [id number] Implanted:Qty: 1 on 02/16/2022 by Ottoniel Wells MD Left: Hip [employer] [id number] 05/03/2023 6191-1-010 / / [id number] Lp Hex Screw 6.5x30mm Stry-Howm [id number] 78 Implanted:Qty: 1 on 02/16/2022 by Ottoniel Wells MD Left: Hip [employer] [id number] 12/15/2026 9495-1231 / / [id number] Tritanium Cluster Hole Shell 52mm Stry-Howm [id number] Implanted:Qty: 1 on 02/16/2022 by Ottoniel Wells MD Left: Hip [employer] [id number] 09/28/2026 702-04-52E / / [id number] Lp Hex Screw 6.5x20mm Stry-Howm [id number] Implanted:Qty: 1 on 02/16/2022 by Ottoniel Wells MD Left: Hip [employer] [id number] 11/23/2026 5843-5311 / / [id number] Hip Insrt X3 Trident 0d 36mm E Stry-Howm [id number] 921 Implanted:Qty: 1 on 02/16/2022 by Ottoniel Wells MD Left: Hip [employer] [id number] 09/24/2025 623-10-36E / / [id number] Hip Stm Parveen 127 #2 30 124 Stry-Howm [id number] Implanted:Qty: 1 on 02/16/2022 by Ottoniel Wells MD Left: Hip [employer] [id number] 10/21/2026 6057-0230D / / [id number] Plug Bone Sm Strtheron-How [id number] 871 Implanted:Qty: 1 on 02/16/2022 by Ottoniel Wells MD Left: Hip [employer] [id number] 11/16/2026 6215-5-001 / / [id number] Hip Dist Spacer [employer]8 Strtheron-Ana [id number] 90 Implanted:Qty: 1 on 02/16/2022 by Ottoniel Wells MD Left: Hip [employer] [id number] 01/19/2027 7969-5070 / / [id number] Procedures Procedure Name Priority Date/Time Associated Diagnosis Comments CBC WITH AUTO DIFFERENTIAL Routine 07/27/2024 6:22 AM EST CBC AND DIFFERENTIAL Routine 07/27/2024 6:22 AM EST HEPATIC FUNCTION PANEL Routine 07/27/2024 6:22 AM EST BASIC METABOLIC PANEL Routine 07/27/2024 6:22 AM EST MR ABDOMEN WO AND W CONTRAST MRCP Routine 07/26/2024 2:40 PM EST CBC WITH AUTO DIFFERENTIAL Routine 07/26/2024 6:14 AM EST COMPREHENSIVE METABOLIC PANEL Routine 07/26/2024 6:14 AM EST PROTHROMBIN TIME WITH INR Routine 07/26/2024 6:14 AM EST CBC AND DIFFERENTIAL Routine 07/26/2024 6:14 AM EST RESPIRATORY VIRUS PANEL MOLECULAR STUDY Routine 07/26/2024 2:05 AM EST BASIC METABOLIC PANEL Routine 07/26/2024 1:06 AM EST US ABDOMEN LIMITED STAT 07/26/2024 12 :37 AM EST JAY URINE CULTURE TUBE STAT 07/25/2024 7:41 PM EST URINALYSIS WITH REFLEX MICROSCOPIC AND CULTURE STAT 07/25/2024 7:41 PM EST URINALYSIS WITH REFLEX MICROSCOPIC AND CULTURE STAT 07/25/2024 7:41 PM EST CULTURE URINE STAT 07/25/2024 7:41 PM EST LACTATE STAT 07/25/2024 7:[address] ABDOMEN PELVIS W CONTRAST STAT 07/25/2024 5:33 PM EST MAGNESIUM Add-On 07/25/2024 2:10 PM EST GAMMA GLUTAMYL TRANSFERASE Add-On 07/25/2024 2:10 PM EST ACETAMINOPHEN LEVEL STAT Add-on 07/25/2024 2 :10 PM EST HEPATITIS PANEL, ACUTE WITH REFLEX TO CONFIRMATION Add-On 07/25/2024 2:10 PM EST LIPASE STAT Add-on 07/25/2024 2:10 PM EST BILIRUBIN DUPLICATE PROCEDURE TO ORDER STAT 07/25/2024 2:10 PM EST COMPREHENSIVE METABOLIC PANEL STAT 07/25/2024 2:10 PM EST PROTHROMBIN TIME WITH INR STAT 07/25/2024 12:49 PM EST CBC WITH AUTO DIFFERENTIAL STAT 07/25/2024 11:54 AM EST CBC AND DIFFERENTIAL STAT 07/25/2024 11:54 AM EST POCT GLUCOSE BLOOD Routine 07/25/2024 11 :26 AM EST CBC WITH AUTO DIFFERENTIAL Routine 07/07/2024 6:34 [...] examination from Last 3 Months Results * CBC auto differential (07/27/2024 6:22 AM EST) Only the most recent of7 resultswithin the time period is included. WBC 6.6 4.8 - 10.8 K/mcL LAB HEMETOLOGY METHOD 07/27/2024 7:50 AM [facility] LAB RBC 3.80 3.80 - 4.80 M/mcL LAB HEMETOLOGY METHOD 07/27/2024 7:50 AM [facility] LAB Hemoglobin 11.8 11.5 - 16.0 g/dL LAB HEMETOLOGY METHOD 07/27/2024 7:50 AM [facility] LAB Hematocrit 36.3 35.0 - 47.0 % LAB HEMETOLOGY METHOD 07/27/2024 7:50 AM [facility] LAB MCV 94.5 79.0 - 98.0 FL LAB HEMETOLOGY METHOD 07/27/2024 7:50 AM [facility] LAB MCH 30.7 27.0 - 32.0 pcg LAB HEMETOLOGY METHOD 07/27/2024 7:50 AM [facility] LAB MCHC 32.5 32.0 - 37.0 g/dL LAB HEMETOLOGY METHOD 07/27/2024 7:50 AM [facility] LAB RDW 13.9 11.0 - 15.0 % LAB HEMETOLOGY METHOD 07/27/2024 7:50 AM [facility] LAB Platelets 300 130 - 400 K/mcL LAB HEMETOLOGY METHOD 07/27/2024 7:50 AM [facility] LAB MPV 9.7 7.0 - 11.0 FL LAB HEMETOLOGY METHOD 07/27/2024 7:50 AM [facility] LAB NRBC 0.0 <1.0 % LAB HEMETOLOGY METHOD 07/27/2024 7:50 AM [facility] LAB NRBC Absolute 0.00 <0.10 K/mcL LAB HEMETOLOGY METHOD 07/27/2024 7:50 AM [facility] LAB Neutrophils Relative 55.9 % LAB HEMETOLOGY METHOD 07/27/2024 7:50 AM [facility] LAB Lymphocytes Relative 26.7 % LAB HEMETOLOGY METHOD 07/27/2024 7:50 AM [facility] LAB Monocytes Relative 9.6 % LAB HEMETOLOGY METHOD 07/27/2024 7:50 AM [facility] LAB Eosinophils Relative 6.4 % LAB HEMETOLOGY METHOD 07/27/2024 7:50 AM [facility] LAB Basophils Relative 1.1 % LAB HEMETOLOGY METHOD 07/27/2024 7:50 AM [facility] LAB Immature Granulocytes Relative 0.3 % LAB HEMETOLOGY METHOD 07/27/2024 7:50 AM [facility] LAB Neutrophils Absolute 3.66 1.50 - 7.00 K/mcL LAB HEMETOLOGY METHOD 07/27/2024 7:50 AM [facility] LAB Lymphocytes Absolute 1.75 1.00 - 5.00 K/mcL LAB HEMETOLOGY METHOD 07/27/2024 7:50 AM EST [facility] LAB Monocytes Absolute 0.63 0.20 - 1.00 K/[facility] LAB HEMETOLOGY METHOD 07/27/2024 7:50 AM EST [facility] LAB Eosinophils Absolute 0.42 0.00 - 0.50 K/[facility] LAB HEMETOLOGY METHOD 07/27/2024 7:50 AM EST [facility] LAB Basophils Absolute 0.07 0.00 - 0.20 K/[facility] LAB HEMETOLOGY METHOD 07/27/2024 7:50 AM EST [facility] LAB Immature Granulocytes Absolute 0.02 0.00 - 0.03 K/[facility] LAB HEMETOLOGY METHOD 07/27/2024 7:50 AM EST [facility] LAB Blood Venous blood specimen / Unknown Venipuncture / Unknown 07/27/2024 6:22 AM EST 07/27/2024 7:09 AM EST us Jeannie FORMAN LAB BLOOD ORDERABLES Final Result [facility] LAB [address] [place] [address], * (ABNORMAL) Hepatic function panel (07/27/2024 6:22 AM EST) Total Protein 6.0 6.0 - 8.0 g/dL LAB CHEMISTRY METHOD 07/27/2024 7:56 AM EST [facility] LAB Albumin 3.0(L) 3.2 - 5.0 g/dL LAB CHEMISTRY METHOD 07/27/2024 7:56 AM [facility] LAB Total Bilirubin 1.0 0.0 - 1.4 mg/dL LAB CHEMISTRY METHOD 07/27/2024 7:56 AM EST [facility] LAB Bilirubin, Direct 0.4(H) 0.0 - 0.3 mg/dL LAB CHEMISTRY METHOD 07/27/2024 7:56 AM [facility] LAB Bilirubin, Indirect 0.6 0.0 - 1.1 mg/dL LAB CHEMISTRY METHOD 07/27/2024 7:56 AM [facility] LAB ALT (SGPT) 362(H) 10 - 60 unit/L LAB CHEMISTRY METHOD 07/27/2024 7:56 AM [facility] LAB AST (SGOT) 115(H) 10 - 42 unit/L LAB CHEMISTRY METHOD 07/27/2024 7:56 AM [facility] LAB Alkaline Phosphatase 912(H) 42 - 121 unit/L LAB CHEMISTRY METHOD 07/27/2024 7:56 AM [facility] LAB Blood Venous blood specimen / Unknown Venipuncture / Unknown 07/27/2024 6:22 AM EST 07/27/2024 7:10 AM EST us Jeannie FORMAN LAB BLOOD ORDERABLES Final Result [facility] LAB [address] [place] [address], [place] [phone] * (ABNORMAL) Basic metabolic panel (07/27/2024 6:22 AM EST) Only the most recent of5 resultswithin the time period is included. Sodium 137 133 - 145 mmol/L LAB CHEMISTRY METHOD 07/27/2024 7:47 AM [facility] LAB Potassium 3.6 3.5 - 5.5 mmol/L LAB CHEMISTRY METHOD 07/27/2024 7:47 AM [facility] LAB Chloride 103 96 - 110 mmol/L LAB CHEMISTRY METHOD 07/27/2024 7:47 AM [facility] LAB CO2 29 21 - 32 mmol/L LAB CHEMISTRY METHOD 07/27/2024 7:47 AM [facility] LAB Anion Gap 5 3 - 11 LAB CHEMISTRY METHOD 07/27/2024 7:47 AM [facility] LAB Glucose 110(H) 70 - 100 mg/dL LAB CHEMISTRY METHOD 07/27/2024 7:47 AM [facility] LAB BUN 10 5 - 25 mg/dL LAB CHEMISTRY METHOD 07/27/2024 7:47 AM [facility] LAB Creatinine 0.49(L) 0.50 - 1.10 mg/dL LAB CHEMISTRY METHOD 07/27/2024 7:47 AM [facility] LAB eGFR 94 >=60 mL/min/1. 73m2 LAB CHEMISTRY METHOD 07/27/2024 7:47 AM [facility] LAB Comment:Calculation based on the??Chronic Kidney Disease Epidemiology Collaboration (CKD-EPI) equation refit??without adjustment for race. BUN/Creatinine Ratio 20.4 LAB CHEMISTRY METHOD 07/27/2024 7:47 AM [facility] LAB Calcium 9.4 8.5 - 10.5 mg/dL LAB CHEMISTRY METHOD 07/27/2024 7:47 AM [facility] LAB Blood Venous blood specimen / Unknown Venipuncture / Unknown 07/27/2024 6:22 AM EST 07/27/2024 7:10 AM EST us Jeannie FORMAN LAB BLOOD ORDERABLES Final Result [facility] LAB [address] [place] [address], * MR Abdomen wo and w Contrast [...] by: Janice Chaparro MD on 07/26/2024 15:28:50 Jomar Booth MD IM MRI PROCEDURES Final Re sult * Prothrombin time with INR (07/26/2024 6:14 AM EST) Only the most recent of2 resultswithin the time period is included. Protime 11.3 10.6 - 13.9 sec LAB COAGULATION METHOD 07/26/2024 7:26 AM EST [facility] LAB INR 0.9 LAB COAGULATION METHOD 07/26/2024 7:26 AM EST [facility] LAB Blood Venous blood specimen / Unknown Venipuncture / Unknown 07/26/2024 6:14 AM EST 07/26/2024 6:51 AM EST us Jomar Booth MD LAB BLOOD ORDERABLES Final Result [facility] LAB [address] [place] [address], [place] [phone] * (ABNORMAL) Comprehensive metabolic panel (07/26/2024 6:14 AM EST) Only the most recent of5 resultswithin the time period is included. Sodium 138 133 - 145 mmol/L LAB CHEMISTRY METHOD 07/26/2024 7:53 AM [facility] LAB Potassium 3.4(L) 3.5 - 5.5 mmol/L LAB CHEMISTRY METHOD 07/26/2024 7:53 AM [facility] LAB Chloride 103 96 - 110 mmol/L LAB CHEMISTRY METHOD 07/26/2024 7:53 AM [facility] LAB CO2 28 21 - 32 mmol/L LAB CHEMISTRY METHOD 07/26/2024 7:53 AM [facility] LAB Anion Gap 7 3 - 11 LAB CHEMISTRY METHOD 07/26/2024 7:53 AM [facility] LAB Glucose 103(H) 70 - 100 mg/dL LAB CHEMISTRY METHOD 07/26/2024 7:53 AM [facility] LAB BUN 10 5 - 25 mg/dL LAB CHEMISTRY METHOD 07/26/2024 7:53 AM [facility] LAB Creatinine 0.62 0.50 - 1.10 mg/dL LAB CHEMISTRY METHOD 07/26/2024 7:53 AM [facility] LAB eGFR 89 >=60 mL/min/1. 73m2 LAB CHEMISTRY METHOD 07/26/2024 7:53 AM [facility] LAB Comment:Calculation based on the??Chronic Kidney Disease Epidemiology Collaboration (CKD-EPI) equation refit??without adjustment for race. BUN/Creatinine Ratio 16.1 LAB CHEMISTRY METHOD 07/26/2024 7:53 AM [facility] LAB Calcium 9.4 8.5 - 10.5 mg/dL LAB CHEMISTRY METHOD 07/26/2024 7:53 AM [facility] LAB AST (SGOT) 196(H) 10 - 42 unit/L LAB CHEMISTRY METHOD 07/26/2024 7:53 AM [facility] LAB ALT (SGPT) 538(H) 10 - 60 unit/L LAB CHEMISTRY METHOD 07/26/2024 7:53 AM [facility] LAB Alkaline Phosphatase 986(H) 42 - 121 unit/L LAB CHEMISTRY METHOD 07/26/2024 7:53 AM [facility] LAB Total Protein 6.5 6.0 - 8.0 g/dL LAB CHEMISTRY METHOD 07/26/2024 7:53 AM [facility] LAB Albumin 3.3 3.2 - 5.0 g/dL LAB CHEMISTRY METHOD 07/26/2024 7:53 AM [facility] LAB Total Bilirubin 1.5(H) 0.0 - 1.4 mg/dL LAB CHEMISTRY METHOD 07/26/2024 7:53 AM [facility] LAB Blood Venous blood specimen / Unknown Venipuncture / Unknown 07/26/2024 6:14 AM EST 07/26/2024 6:50 AM EST us Jomar Booth MD LAB BLOOD ORDERABLES Final Result [facility] LAB [address] [place] [address], * Respiratory virus panel molecular study (07/26/2024 2:05 AM EST) Adenovirus Detection by PCR Not Detected Not Detected LAB MICROBIOLOGY METHOD 07/26/2024 3:02 AM [facility] LAB Influenza A PCR Not Detected Not Detected LAB MICROBIOLOGY METHOD 07/26/2024 3:02 AM [facility] LAB Influenza B PCR Not Detected Not Detected LAB MICROBIOLOGY METHOD 07/26/2024 3:02 AM [facility] LAB Coronavirus 229E Not Detected Not Detected LAB MICROBIOLOGY METHOD 07/26/2024 3:02 AM [facility] LAB Coronavirus HKU1 Not Detected Not Detected LAB MICROBIOLOGY METHOD 07/26/2024 3:02 AM [facility] LAB Coronavirus OC43 Not Detected Not Detected LAB MICROBIOLOGY METHOD 07/26/2024 3:02 AM [facility] LAB Coronavirus NL63 Not Detected Not Detected LAB MICROBIOLOGY METHOD 07/26/2024 3:02 AM [facility] LAB Parainfluenza Virus 1 Not Detected Not Detected LAB MICROBIOLOGY METHOD 07/26/2024 3:02 AM [facility] LAB Parainfluenza Virus 2 Not Detected Not Detected LAB MICROBIOLOGY METHOD 07/26/2024 3:02 AM [facility] LAB Parainfluenza Virus 3 Not Detected Not Detected LAB MICROBIOLOGY METHOD 07/26/2024 3:02 AM [facility] LAB Parainfluenza Virus 4 Not Detected Not Detected LAB MICROBIOLOGY METHOD 07/26/2024 3:02 AM [facility] LAB RSV PCR Not Detected Not Detected LAB MICROBIOLOGY METHOD 07/26/2024 3:02 AM [facility] LAB Human Metapneumovirus A and B Not Detected Not Detected LAB MICROBIOLOGY METHOD 07/26/2024 3:02 AM [facility] LAB Rhinovirus/Entero virus Not Detected Not Detected LAB MICROBIOLOGY METHOD 07/26/2024 3:02 AM [facility] LAB Bordetella pertussis Not Detected Not Detected LAB MICROBIOLOGY METHOD 07/26/2024 3:02 AM [facility] LAB Bordetella parapertussis Not Detected Not Detected LAB MICROBIOLOGY METHOD 07/26/2024 3:02 AM [facility] LAB Mycoplasma pneumo by PCR Not Detected Not Detected LAB MICROBIOLOGY METHOD 07/26/2024 3:02 AM EST [facility] LAB Chlamydia pneumoniae Not Detected Not Detected LAB MICROBIOLOGY METHOD 07/26/2024 3:02 AM EST [facility] LAB SARS COV-2 Not Detected Not Detected LAB MICROBIOLOGY METHOD 07/26/2024 3:02 AM EST [facility] LAB Swab Structure of right anterior naris / Unknown Non-blood Collection / Unknown 07/26/2024 2:05 AM EST 07/26/2024 2:14 AM EST [facility] LAB - 07/26/2024 3:02 AM EST Testing was performed using the [employer] Respiratory Pathogen PCR Assay. All results must [...] that are below the limit of detection. us Nayely FORMAN LAB MICROBIOLOGY - GENERAL OR DERABLES Final Result [facility] LAB [address] [place] [address], * [place] Abdomen Limited (07/26/2024 12:37 AM [...] US PROCEDURES Final Res ult * (ABNORMAL) Urinalysis with reflex microscopic and culture (07/25/2024 7:41 PM EST) Only the most recent of2 resultswithin the time period is included. Specific [place] Urine 1.040(H) 1.003 - 1.030 LAB URINALYSIS - AUTOMATED METHOD 07/25/2024 8:57 PM [facility] LAB pH, Urine 7.0 5.0 - 8.0 pH LAB URINALYSIS - AUTOMATED METHOD 07/25/2024 8:57 PM [facility] LAB Leukocytes, Urine Small(A) Negative LAB URINALYSIS - AUTOMATED METHOD 07/25/2024 8:57 PM [facility] LAB Nitrite, Urine Negative Negative LAB URINALYSIS - AUTOMATED METHOD 07/25/2024 8:57 PM [facility] LAB Protein, Urine Negative <=Trace mg/dL LAB URINALYSIS - AUTOMATED METHOD 07/25/2024 8:57 PM [facility] LAB Glucose, Urine Negative Negative mg/dL LAB URINALYSIS - AUTOMATED METHOD 07/25/2024 8:57 PM [facility] LAB Ketones, Urine Trace(A) Negative mg/dL LAB URINALYSIS - AUTOMATED METHOD 07/25/2024 8:57 PM [facility] LAB Urobilinogen, Urine 1.0 0.2 - 1.0 mg/dL LAB URINALYSIS - AUTOMATED METHOD 07/25/2024 8:57 PM [facility] LAB Bilirubin, Urine Negative Negative LAB URINALYSIS - AUTOMATED METHOD 07/25/2024 8:57 PM [facility] LAB Blood, Urine Negative Negative LAB URINALYSIS - AUTOMATED METHOD 07/25/2024 8:57 PM [facility] LAB RBC, Urine 1.7 0 - 4 /HPF LAB URINALYSIS - AUTOMATED METHOD 07/25/2024 8:57 PM [facility] LAB WBC, Urine 16.3(H) 0 - 4 /HPF LAB URINALYSIS - AUTOMATED METHOD 07/25/2024 8:57 PM [facility] LAB Squamous Epithelial, Urine >100(H) 0 - 60 /LPF LAB URINALYSIS - AUTOMATED METHOD 07/25/2024 8:57 PM [facility] LAB Bacteria, Urine Few(A) Negative /HPF LAB URINALYSIS - AUTOMATED METHOD 07/25/2024 8:57 PM [facility] Hyaline Casts, Urine 5.6(H) 0 - 3 /LPF LAB URINALYSIS - AUTOMATED METHOD 07/25/2024 8:57 PM [facility] Urine Urine specimen obtained by clean catch procedure / Unknown Non-blood Collection / Unknown 07/25/2024 7:41 PM EST 07/25/2024 7:59 PM EST us Jomar Booth MD LAB URINE ORDERABLES Final Result [facility] [address] [place] [address], * Jay urine culture tube (07/25/2024 7:41 PM EST) Only the most recent of2 resultswithin the time period is included. Extra Tube Hold for add-ons. 07/25/2024 9:01 PM EST [facility] Comment:Auto resulted. Urine Urine specimen obtained by clean catch procedure / Unknown Non-blood Collection / Unknown 07/25/2024 7:41 PM EST 07/25/2024 7:59 PM EST us Jomar Booth MD LAB URINE ORDERABLES Final Result [facility] [address] [place] [address], * (ABNORMAL) Culture urine (07/25/2024 7:41 PM EST) Only the most recent of2 resultswithin the time period is included. Culture, Urine 50,000-100,000 CFU/mL Escherichia coli(A) JUDIE 07/27/2024 11:55 AM EST [facility] Comment: This is an edited result. Previous organism was Gram negative bacilli on 07/26/2024 at 1325 EST. Urine Urine specimen obtained by clean catch procedure / Unknown Non-blood Collection / Unknown 07/25/2024 7:41 PM EST 07/25/2024 8:57 PM EST Narrative [facility] - 07/27/2024 11:55 AM EST [...] GENERAL ORDERABLES Final Result Performing Organization Address [facility]/ZIP Co de Phone Number [facility] [address] [place] [address], [place] [phone] * Lactate (07/25/2024 7:34 PM EST) [facility] Signature Lactate 1.2 0.4 - 2.0 mmol/L LAB CHEMISTRY METHOD 07/25/2024 8:37 PM EST [facility] Blood Venous blood specimen / Unknown Venipuncture / Unknown 07/25/2024 7:34 PM EST 07/25/2024 7:59 PM EST Kaci Buiny John CAIN LAB BLOOD ORDERABLES Payal l Result Performing Organization Address [facility]/ZIP Co de Phone Number [facility] [address] [place] [address], [place] [phone] * CT Abdomen Pelvis w Contrast (07/25/2024 [...] Chaparro MD on 07/25/2024 17:55:43 Brianna FORMAN [facility] PROCEDURES Final Re sult * (ABNORMAL) Bilirubin duplicate procedure to order (07/25/2024 2:10 PM EST) Total Bilirubin 2.2(H) 0.0 - 1.4 mg/dL LAB CHEMISTRY METHOD 07/25/2024 3:26 PM EST [facility] Bilirubin, Direct 1.4(H) 0.0 - 0.3 mg/dL LAB CHEMISTRY METHOD 07/25/2024 3:26 PM EST [facility] Bilirubin, Indirect 0.8 0.0 - 1.1 mg/dL LAB CHEMISTRY METHOD 07/25/2024 3:26 PM EST [facility] Blood Venous blood specimen / Unknown Venipuncture / Unknown 07/25/2024 2:10 PM EST 07/25/2024 2:23 PM EST Brianna FORMAN LAB BLOOD ORDERABLES Final Result Performing Organization Address [facility]/ZIP Co de Phone Number [facility] [address] [place] [address], [place] [phone] * Hepatitis panel, acute with reflex to confirmation (07/25/2024 2:10 PM EST) Hepatitis B Surface Ag Negative Negative LAB CHEMISTRY METHOD 07/25/2024 7:43 PM EST [facility] Hepatitis A Antibody IgM Negative Negative LAB CHEMISTRY METHOD 07/25/2024 7:43 PM EST [facility] Hep B Core IgM Negative Negative LAB CHEMISTRY METHOD 07/25/2024 7:43 PM EST [facility] Hepatitis C Antibody Negative Negative LAB CHEMISTRY METHOD 07/25/2024 7:43 PM EST [facility] Blood Venous blood specimen / Unknown Venipuncture / Unknown 07/25/2024 2:10 PM EST 07/25/2024 2:23 PM EST Kaci Lopez DO LAB BLOOD ORDERABLES Payal l Result Performing Organization Address City/[facility]/ZIP Co de Phone Number [facility] [address] [place] [address], [place] [phone] * Magnesium (07/25/2024 2:10 PM EST) Only the most recent of5 resultswithin the time period is included. Pathologist [facility] Magnesium 2.0 1.9 - 2.6 mg/dL LAB CHEMISTRY METHOD 07/25/2024 10:55 PM EST [facility] Blood Venous blood specimen / Unknown Venipuncture / Unknown 07/25/2024 2:10 PM EST 07/25/2024 2:23 PM EST Jomar Booth MD LAB BLOOD ORDERABLES Final Result Performing Organization Address [facility] Co de Phone Number [facility] [address] [place] [address], [place] [phone] * Lipase (07/25/2024 2:10 PM EST) [facility] Lipase 21 13 - 75 unit/L LAB CHEMISTRY METHOD 07/25/2024 6:50 PM EST [facility] Blood Venous blood specimen / Unknown Venipuncture / Unknown 07/25/2024 2:10 PM EST 07/25/2024 2:23 PM EST Kaci Lopez DO LAB BLOOD ORDERABLES Payal l Result Performing Organization Address [facility] de Phone Number [facility] [address] [place] [address], [place] [phone] * (ABNORMAL) GGT (07/25/2024 2:10 PM EST) [facility] GGT 933(H) 7 - 64 unit/L LAB CHEMISTRY METHOD 07/25/2024 9:38 PM EST [facility] Blood Venous blood specimen / Unknown Venipuncture / Unknown 07/25/2024 2:10 PM EST 07/25/2024 2:23 PM EST us Jomar Booth MD LAB BLOOD ORDERABLES Final Result Performing Organization Address [facility] Co de Phone Number [facility] [address] [place] [address], [place] [phone] * (ABNORMAL) Acetaminophen level (07/25/2024 2:10 PM EST) [facility] Acetaminophen Level <2.0(L) 10.0 - 30.0 mcg/mL LAB CHEMISTRY METHOD 07/25/2024 6:50 PM EST [facility] Blood Venous blood specimen / Unknown Venipuncture / Unknown 07/25/2024 2:10 PM EST 07/25/2024 2:23 PM EST Kaci Buiny John DO LAB BLOOD ORDERABLES Payal l Result [facility] [address] [place] [address], [place] [phone] * (ABNORMAL) POCT Glucose, blood (07/25/2024 11:26 AM EST) [facility] Glucose POCT 177(H) 70 - 100 mg/dL 07/25/2024 11:27 AM EST [facility] Blood Capillary blood specimen / Unknown 07/25/2024 11:26 AM EST 07/25/2024 11:29 AM EST us Generic Provider Poct LAB POINT OF CARE TEST DOCKED DEVICE UNSOLICITED RESULTS Final Result Performing Organization Address [facility] Co de Phone Number [facility] [address] [place] [address], [place] [phone] from Last 3 Months Insurance MEDICARE [facility] Advance Directives Documents on File Type Date Recorded 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 Do not modify or discontinue any currently active code status orders. Care Teams Bus Person Dishwasher Relationship Specialty Start Date End Date Leonardo García MD [address] [place] [id number] PCP - General Internal Medicine 06/30/24
--- OUTSIDE RECORDS SUMMARY | 2024-07-28 07:40 | XMS_ITS | Patient Health Record ---
Author Organization [facility] Address [address] [place] [address] Care Team Providers Care Spa Manager Name Role Phone Ashleigh Grullon MD Primary Care Provider Mukesh Taveras [phone] ALLERGIES Allergen (clinical drug ingredient) Drug/Non Drug [...] bleeding (K29.01) Active confirmed Acute hemorrhagic gastritis (9937865) Problem Diverticulosis of large intestine without perforation or abscess without bleeding (K57.30) Active confirmed Diverticul ar disease of colon (587879398) Problem Iron deficiency anemia (D50.9) Active confirmed Iron deficien cy anemia (18361126) Problem Hiatal hernia (K44.9) Active confirmed Hiatal hernia (58249221) Problem Chronic diarrhea (K52.9) Active confirmed Chronic diarrhea (268703981) Problem Chronic gastritis with bleeding, unspecified gastritis type (K29.51) Active confirmed Chronic antral gastritis with hemorrhage (disorder) (017643806) Problem Gastric ulcer (K25.9) Active confirmed Gastric ulcer (403768406) Problem Gastritis, erosive (K29.60) Active confirmed Erosive gastritis (10933232020683 00) VITAL SIGNS Temperature 96.4 degrees Fahrenheit 08/28/2023 Blood pressure diastolic 00 mm Hg 08/28/2023 Height 63.5 in 08/28/2023 Blood pressure systolic 00 mm Hg 08/28/2023 Weight 150 lbs 08/28/2023 BMI 26.15 kg/m2 08/28/2023 Encounters Encounter Location Date Provider Diagnosis [facility] [address] [place] [address] 08/28/2023 Mukesh Bearden Iron deficiency anem ia [...] OF [place] [address] [place] [address] [phone] [id number] SRINIVASAN ALVARADO Self - patient is the insured [facility] [employer]AN [address] [place] [address] [id number] SRINIVASAN ALVARADO Self - patient is the insured MEDICAL (GENERAL) HISTORY Medical History History ICD Code Denies NC,DM,CVA,Lung disease,renal dise ase Colonoscopy in 10/2001 with [...]
--- OUTSIDE RECORDS SUMMARY | 2024-07-28 07:40 | XMS_ITS | Clinical Summary ---
Author Organization [facility] Address [address] [place] [address] Care Team Providers Care Office Helper Clerical Name Role Phone Ashleigh Grullon MD Primary Care Provider [phone] Allergies Active Allergy Reactions Criticality Noted Date Comments Ampicillin Anaphylaxis High 08/15/2017 Chloramphenicol Anaphylaxis High 08/15/2017 [place] 08/30/2017 Tape Rash Medium 08/30/2017 Paper tape, [...] MORNING AND IN THE EVENING 0 Active [place]-3 Fatty Acids (OMEGA-3 FISH OIL PO) Take [...] Immunizations Name Administration Dates Next Due Covid-19 ([facility]) Dilution Required 05/11/2021,0 08/04/2020,07/14/2020 Social History Tobacco [...] this topic Medical Devices Implanted Type Area Rail Layer Device Identifier Shelf Expiration Date Model / Serial / Lot Screw 6.5 X 45.Mm - [id number] - [id number] Implanted:Qty : 1 on 08/30/2017 by Emeka Lopez MD at [facility] [place] [facility] Posterior: Spine Lumbar [employer] 1067.1645 / / 6.5 X 50mm Screw Modular Creo Amp - 687789 - [id number] Implanted:Qty : 3 on 08/30/2017 by Emeka Lopez MD at [facility] [place] [facility] Posterior: Spine Lumbar [employer] 1067.1650 / / 5.5 Polyaxial Tulip Threaded Creo Amp - 283874 - [id number] Implanted:Qty : 4 on 08/30/2017 by Emeka Lopez MD at [facility] [place] [facility] Posterior: Spine Lumbar [employer] 1119.0110 / / 5.5 Threaded Locking Cap Creo - 588631 - [id number] Implanted:Qty : 4 on 08/30/2017 by Emeka Lopez MD at [facility] [place] [facility] Posterior: Spine Lumbar [facility] 1119.0010 / / 5.5mm Curved Gurpreet Titanium Alloy 40mm Length - 869148 - [id number] Implanted:Qty : 2 on 08/30/2017 by Emeka Lopez MD at [facility] [place] [facility] Posterior: Spine Lumbar [facility] 1119.7040 / / Lp Hex Screw 6.5x20mm Stry-Howm 1174-8844-132 457 - [id number] Implanted:Qty : 1 on 02/16/2022 by Ottoniel Wells MD at [facility] [place] [facility] Left: Hip [employer] [id number] 11/23/2026 9547-6191 / / [id number] Hip Insrt X3 Trident 0d 36mm E Stry-Howm 706-54-86p-20 0921 - [id number] Implanted:Qty : 1 on 02/16/2022 by Ottoniel Wells MD at [facility] [place] [facility] Left: Hip [employer] [id number] 09/24/2025 623-10-36 E / / [id number] Hip Stm Parveen 127 #2 30 124 Stry-Howm 4845-0909r-78 7932 - [id number] Implanted:Qty : 1 on 02/16/2022 by Ottoniel Wells MD at [facility] [place] [facility] Left: Hip [employer] [id number] 10/21/2026 9596-2154 D / / [id number] Plug Bone Sm Stry-Howm 1795-1-712-14 3871 - [id number] Implanted:Qty : 1 on 02/16/2022 by Ottoniel Wells MD at [facility] [place] [facility] Left: Hip [employer] [id number] 11/16/2026 6215-5-00 1 / / [id number] Hip Dist Spacer Ostnc Univ #8 Stry-Howm 4038-3829-423 590 - [id number] Implanted:Qty : 1 on 02/16/2022 by Ottoniel Wells MD at [facility] [place] [facility] Left: Hip [employer] [id number] 01/19/2027 4882-4751 / / [id number] Hip Head Delta [employer] 36mm-2.5 Stry-Howm 9259-7-245-54 9191 - [id number] Implanted:Qty : 1 on 02/16/2022 by Ottoniel Wells MD at [facility] [place] [facility] Left: Hip [employer] [id number] 11/10/2026 6570-0-43 6 / / [id number] Cement Bone Surg Simplex Radiopq Stry-Howm 7233-9-701-11 4092 - [id number] Implanted:Qty : 1 on 02/16/2022 by Ottoniel Wells MD at [facility] [place] [facility] Left: Hip [employer] [id number] 05/03/2023 6190-06-04 0 / / [id number] Cement Bone Surg Simplex Radiopq Stry-Howm 3534-6-454-11 4092 - [id number] Implanted:Qty : 1 on 02/16/2022 by Ottoniel Wells MD at [facility] [place] [facility] Left: Hip [employer] [id number] 05/03/2023 6190-06-04 0 / / [id number] Lp Hex Screw 6.5x30mm Stry-Howm 4091-5050-363 478 - [id number] Implanted:Qty : 1 on 02/16/2022 by Ottoniel Wells MD at [facility] [place] [facility] Left: Hip [employer] [id number] 12/15/2026 2047-9178 / / [id number] Tritanium Cluster Hole Shell 52mm Stry-Howm 958-72-51z-77 0473 - [id number] Implanted:Qty : 1 on 02/16/2022 by Ottoniel Wells MD at [facility] [place] [facility] Left: Hip [employer] [id number] 09/28/2026 702-04-52 E / / [id number] Advance Directives For more information, please contact: [phone] Documents on File Type Date Recorded Patient Community Specialist Expl anation Advance Directive and Living Will [...] way: discussion with patient . Care Teams Office Helper Clerical Relationship Specialty Start Date End Date Cichon, Ashleigh, MD [address] [place] [address] PCP - General Telecommunications Support 01/02/22
--- OUTSIDE RECORDS SUMMARY | 2024-07-28 07:40 | XMS_ITS ---
Author Organization [facility] Address [address] [place] [address] Care Team Providers Care Filling And Packing Supervisor Name Role Phone Ashleigh Grullon MD Primary Care Provider UnavailMukesh Mccormick [phone] REASON FOR VISIT follow up after procedure Encounters Encounter Location Date Provider Diagnosis [facility] [address] [place] [address] 04/23/2023 Mukesh Bearden PLAN OF TREATMENT No Information
--- OUTSIDE RECORDS SUMMARY | 2024-07-28 07:40 | XMS_ITS | Data Portability ---
Author Organization [facility] Home Service Address [address] [place] [address] Assessment Encounter Date Assessment Date Assessment LastModified [...] None recorded. Lab lipid panel, blood 2020 [facility], [address] [place] [address], [place], [address], 13:17:16 CMP, serum or plasma 2020 [facility], [address] [place] [address], [place], [address], 13:17:16 CBC w/ auto diff 2020 [facility], [address] [place] [address], [place], [address], 1 13:17:16 CMP, serum or plasma 2019 [facility], [address] [place] [address], [place], [address], 0 15:24:12 CBC w/ auto diff 2019 [facility], [address] [place] [address], [place], [address], 0 15:24:12 CMP, serum or plasma 2019 VON Not available 0 16:01:10 Referral None recorded. Procedures None recorded. Surgeries None recorded. Imaging None recorded. Medication Orders celecoxib 200 mg capsule 2021 022 [facility][id number], [address], L[place] Herrmann, [id number], 2 11:37:31 metronidaz ole 0.75 % topical cream 2021 [facility][id number], [address], [place], [id number], 2 11:29:27 hydrochlor othiazide 25 mg tablet 2021 022 [facility] #[id number], [address], [place] Herr[place], [id number], 2 11:31:03 hydrochlor othiazide 25 mg tablet 2019 [facility] #79629, [address], [place] Herrmann, [id number], 0 10:39:17 Patient TargetsNo targets recorded. Patient Instructions Encounter Date Encounter Id Patient Instructions Last Modified By Organization Details Last Modified Time 03/12/2020 [id number] rhythm strip, EKG* VON Not available 03/12/2020 17:29:18 Reason for Referral None Reported. Results Created Date Observation Date Name Description Value Unit Range Abnormal Flag Note LastModifiedBy Organization Detail LastModifiedTime 03/12/20 20 03/12/2020 rhyth m strip , EKG* No observ ation record ed. [facility] [address] [facility], [place], [address], 03/16/2020 09:55:12 09/02/19 21 08/31/2020 MAMMO , scree andres, digit al, bilat eral No observ ation record ed. [address] [place], [address], 09/01/2020 14:06:45 01/04/20 21 01/03/2021 XR, knee No observ ation record ed. [facility] [address] [place], [address], 01/03/2021 16:03:47 09/06/19 22 09/02/2021 MAMMO , scree andres, digit al, bilat eral No observ ation record ed. [address] [place], [address], 09/05/2021 12:30:19 Result Notes None recorded. Problems Name Problem SNOMED Code Status Onset Date Resolution Date Notes Provider Name and Address Organization Details Recorded Time Essential hypertensi on 79133524 Active 2017 Not Available [facility] 0 11:57:35 Hyperchole sterolemia 45382415 Active 2017 Not Available [facility] 0 11:57:35 Gastric reflux 222313576 Active 2017 Not Available [facility] 0 11:57:35 Degenerati on of interverte bral disc 97590586 Active 2017 Not Available [facility] 0 11:57:35 Insomnia 863773161 Active 2018 Not Available [facility] 0 11:57:35 Kamran 523507577 Active 2021 [address] [place], [address], [facility] Internal [facility] 2 11:27:44 Problem Notes None recorded. Procedures Surgical History Date Name Laterality Status Provider Name and Address Organization Details Recorded Time 018 Most Recent Mammogram completed Hamida Pinedo [facility] 05/06/2019 09:57:25 018 laminectomy completed Brigette Cates NP, S [address] [place] [address], [address], [facility] 05/01/2018 14:57:46 014 Colonoscopy completed [facility] 04/30/2018 14:53:24 Cataract Surgery completed [facility] 04/30/2018 14:51:58 complete repair of rotator cuff completed [facility] 04/30/2018 14:52:29 Appendectomy completed Brigette grullon NP, S [address] [place] [address], [address], [facility] 04/30/2018 16:37:33 tonsillectomy completed Brigette menendez NP, S [address] [place] [address], [address], [facility] 04/30/2018 16:38:54 Imaging Results Imaging Date Name Status LastModified by Organiz ation Details LastModified Time 03/12/2020 rhythm strip, EKG* [facility] [address] [facility], [place], [address], 03/16/2020 09:55:12 08/31/2020 MAMMO, screening, digital, bilateral completed rtba [facility] [address] [place] [address] [place], [address], 09/01/2020 14:06:45 01/03/2021 XR, knee completed [email or web address] [facility] [address] [facility], [place], [address], 01/03/2021 16:03:47 09/02/2021 MAMMO, screening, digital, bilateral completed [email or web address] [facility] [address] [place], [address], 09/05/2021 12:30:19 Procedure Notes None recorded. Medical Equipment None Reported. Allergies Allergen ID Allergen Name Allergen Category Reaction Reaction Severity Criticality Documentation Date Start Date Code Code System Note Provider Name and Address Organization Details Recorded Time 2553 ampicilli n medicatio n Not available Not available Not available 04/30/2018 733 RxNorm Claire valencia [facility] 8 14:43:03 2554 tetracycl ine medicatio n Not available Not available Not available 04/30/2018 12621 RxNorm Claire valencia [facility] 8 14:43:18 2555 Chloromyc etin medicatio n Not available Not available Not available 04/30/2018 04838 8 RxNorm Claire Tovar [facility] 8 14:51:28 3665 adhesive tape environme nt,medica tion rash Not available Not available 06/10/2019 [id number] UNK Hamida Mahmoodaugustine [facility] 0 10:05:05 Medications Name [...] completed Not Available Not Available Not Available [place] 3 02/16 completed Not Available Not Available [...] Updated DateTime 0 160.02 cm 32.8 kg/m2 83818.6 7 g 78 /min 98 % 98 % 148 mm[Hg] 92 mm[Hg] [facility] 0 10:29:24 Date Recorded Body height Body mass index (BMI) Body weight Heart rate Oxygen saturation Oxygen saturation in Arterial blood by Pulse oximetry Systolic blood pressure Diastolic blood pressure Provider Name and Address Organization Details Last Updated DateTime 0 160.02 cm 32.9 kg/m2 97208.8 2 g 78 /min 97 % 97 % 130 mm[Hg] 82 mm[Hg] [facility] 0 14:26:47 Date Recorded Body height Body mass index (BMI) Body weight Oxygen saturation Oxygen saturation in Arterial blood by Pulse oximetry Heart rate Systolic blood pressure Diastolic blood pressure Provider Name and Address Organization Details Last Updated DateTime 1 160.02 cm 33.4 kg/m2 98569.2 4 g 97 % 97 % 83 /min 158 mm[Hg] 90 mm[Hg] Lianna [facility] 1 11:28:23 Date Recorded Body height Oxygen saturation Oxygen saturation in Arterial blood by Pulse oximetry Heart rate Systolic blood pressure Diastolic blood pressure Provider Name and Address Organization Details Last Updated DateTime 2 160.02 cm 99 % 99 % 74 /min 158 mm[Hg] 90 mm[Hg] Lianna [facility] 2 11:16:48 Social History [...] virus, quadrivalent, preservative 8 completed Hamida valencia [facility] 03/12/2020 14:22:57 Influenza, split virus, quadrivalent, preservative 1 completed Lianna valencia [facility] 05/10/2021 08:45:09 COVID-19, mRNA, LNP-S, PF, 30 mcg/0.3 mL dose 1 completed Lianna valencia [facility] 05/10/2021 08:45:31 COVID-19, mRNA, LNP-S, PF, 30 mcg/0.3 mL dose 1 completed Lianna valencia [facility] 05/10/2021 08:45:46 Td(adult) unspecified formulation 9 completed Lianna valencia [facility] 05/10/2021 08:46:19 Influenza, split virus, quadrivalent, preservative 9 completed Hamida valencia [facility] 03/12/2020 14:22:57 Influenza, split virus, quadrivalent, preservative 0 completed Hamida valencia [facility] 03/12/2020 14:22:57 Past Encounters Encounter ID Performer Location Encounter Start Date Encounter Closed Date Diagnosis/Indication Diagnosis SNOMED-CT Code Diagnosis ICD10 Code Diagnosis Note [id number] Brigette Cates NP, S [facility] [address],[place] [address] 05/01/2018 13:37:32 05/01/2018 15:16:02 Essential hypertension 86529279 I10 Degenerati on of intervertebral disc 38444145 M51.9 S/P laminectom y Hypercholesterolemia 136 57027 E78.00 Decreased hearing 892763 001 H91.93 September CESAR Hannon [facility] [address] [facility], [place] [address] 11/01/2018 11:36:08 11/01/2018 12:10:37 Essential hypertension 02132037 I10 stable Degenerati on of intervertebral disc 41039877 M51.9 S/P laminectom y Hypercholesterolemia 136 07903 E78.00 taking lovastatin every other day - would really like to get off the med discussed diet for weight loss Insomnia 314440508 G47.0 0 takes a half at bedtime to help her sleep lots of stress Body mass index 30+ - obesity 385348824 Z68.33 discussed diet strategies cutting out sugar [...] to have water and tea while fasting [id number] CESAR Alfred [facility] [address] [facility],[place] [address] 06/10/2019 09:46:55 06/10/2019 10:42:39 Essential hypertension 93314580 I10 mildly elevated d/c hctz start lisinopril 10 mg Degenerati on of intervertebral disc 14450704 M51.9 S/P laminectom y Hypercholesterolemia 136 25152 E78.00 taking lovastatin every other day - would really like to get off the med discussed diet for weight loss Insomnia 506333552 G47.0 0 takes a half at bedtime to help her sleep as needed lots of stress Body mass index 30+ - obesity 882737390 Z68.33 has lost about 10 lbs! has cut back her sugar intake due to her high bs last time Gastric reflux 888357232 K21.9 Hearing loss 80196209 H9 1.93 Advance care planning 71 7503859 Z71.89 HCP - planning to re-do her will/trust and update HCP [id number] [address] [facility] [address] [facility] [place] [address] 02/17/2020 10:22:21 02/17/2020 11:04:06 Essential hypertension 70744363 I10 will switch off losartan as patient states it makes her thirsty and dry mouth the patient would like to go back on HTCZ, will just monitor her kidney function more frequently Adult heal th examination 078657683 Z00.00 BP is elevated has been since switch from HTCZ to losartan will switch back and just watch kidneys closer never had issue with kidney function before on it Active or passive immunization 373665299 Z23 has shingle shot, old one long time ago getting flu shot at pharmacy [id number] [address] [facility] [address] [facility] [address],[place] [address] 03/12/2020 14:10:33 03/12/2020 15:07:44 Pre-surgery evaluation 777823431 Z01.818 based on exam and history will clear for surgery pending labs and EKG will fax EKG separately after reading results [id number] [address] [facility] [address] [facility] on [address],[place] [address] 05/18/2020 08:44:16 05/18/2020 10:08:45 Essential hypertension 59125855 I10 BP has been stable on the HTCZ, no side effects CMP looks good as well Osteoarthritis 153176773 M19.90 improvemen t with surgery and PT, if need surgeon will clear out arthritis behind her patella [id number] [address] [facility] [address] [facility] [address],[place] [address] 05/13/2021 10:59:04 05/13/2021 12:18:39 Essential hypertension 05408620 I10 BP has been stable with other checks and with recheck in office Hypercholesterolemia 136 93453 E78.2 will recheck labsdiscus sed stopping as she has muscle aches with it constantly [id number] [address] [facility] [address] [facility] [address],[place] [address] 09/07/2021 11:09:39 09/12/2021 09:03:07 Hypercholesterolemia 67488558 E78.2 will recheck labsdiscus sed stopping as she has muscle aches with it constantly Essential hypertension 93789054 I10 BP has been stable with other checks and with recheck in office Degenerati on of intervertebral disc 34784389 M51.06 seeing PT for the next 6 weeks Insomnia 882663267 G47.0 0 stable Rosacea 417809940 L71.8 will trial a course of metronidaz [...] 02/17/2020 2 [employer] Crystal Hunker [id number] Crystal Holly 02/17/2020 1 MEDICARE B-[place]: [facility] Crystal G Hunker [id number] Crystal Hunker 03/12/2020 2 [employer] Crystal Hunker [id number] Crystal Hunker 03/12/2020 1 MEDICARE B-[place]: [facility] Crystal G Hunker [id number] Crystal Hunker 05/18/2020 2 [employer] Crystal Holly [id number] Crystal Hunker 05/18/2020 1 MEDICARE B-[place]: [facility] Crystal G Hunker [id number] Crystal Hunker 05/13/2021 2 [employer] Crystal Hunker [id number] Crystal Hunker 05/13/2021 1 [facility] Crystal G Hunker [id number] Crystal Holly 09/07/2021 2 [employer] Crystal Hunker [id number] Crystal Holly 09/07/2021 1 [facility] Crystal G Holly [id number] Crystal Holly Notes Date Note Type Note [...] good lighting in the home DICKSON STONE [address] [place] [address], [address], [facility] 02/17/2020 10:47:42 0 text/html Pre-OpReported bypatient.Surgery to be Performed:left knee arthroscopy Dr. Jimenez [facility] Risk Factorsno cognitive impairment; no functional impairment; [...] Support:adequate assistance at home DICKSON STONE [address] [place], [address], [facility] 03/12/2020 15:56:29 0 [...] sore throat, no fatigue DICKSON STONE [address] [place], [address], [facility] 05/18/2020 10:08:45 1 [...] to her side effects DICKSON STONE [address] [place], [address], [facility] 05/13/2021 11:43:58 2 [...] questions and concerns answered today DICKSON STONE [address] [place] [address], [place], [address], [facility] 09/07/2021 11:39:36 OBGyn Episode No OBEpisode recorded.
--- OUTSIDE RECORDS SUMMARY | 2024-07-28 07:40 | XMS_ITS | Encounter Summary ---
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 Name Role Phone Leonardo García MD Primary Care Provider [phone] Encounter Details Date Type Department Care Team (Late st Contact Info) Description 07/07/2024 Lab Requisition [facility] - Main Lab [address] [facility] [place] [phone] Chris Barlow MD [address] [place] [address] Encounter for other general examination Social History [...] CBC auto differential (07/07/2024 6:34 AM EST) [facility] WBC 6.0 4.8 - 10.8 K/mcL LAB HEMETOLOGY METHOD 07/07/2024 10:40 AM [facility] RBC 3.20(L) 3.80 - 4.80 M/mcL LAB HEMETOLOGY METHOD 07/07/2024 10:40 AM [facility] Hemoglobin 10.1(L) 11.5 - 16.0 g/dL LAB HEMETOLOGY METHOD 07/07/2024 10:40 AM [facility] Hematocrit 30.7(L) 35.0 - 47.0 % LAB HEMETOLOGY METHOD 07/07/2024 10:40 AM [facility] MCV 94.8 79.0 - 98.0 FL LAB HEMETOLOGY METHOD 07/07/2024 10:40 AM [facility] MCH 31.2 27.0 - 32.0 pcg LAB HEMETOLOGY METHOD 07/07/2024 10:40 AM [facility] MCHC 32.9 32.0 - 37.0 g/dL LAB HEMETOLOGY METHOD 07/07/2024 10:40 AM [facility] RDW 14.2 11.0 - 15.0 % LAB HEMETOLOGY METHOD 07/07/2024 10:40 AM [facility] Platelets 415(H) 130 - 400 K/mcL LAB HEMETOLOGY METHOD 07/07/2024 10:40 AM [facility] MPV 9.2 7.0 - 11.0 FL LAB HEMETOLOGY METHOD 07/07/2024 10:40 AM [facility] NRBC 0.0 <1.0 % LAB HEMETOLOGY METHOD 07/07/2024 10:40 AM [facility] NRBC Absolute 0.00 <0.10 K/mcL LAB HEMETOLOGY METHOD 07/07/2024 10:40 AM [facility] Neutrophils Relative 57.2 % LAB HEMETOLOGY METHOD 07/07/2024 10:40 AM [facility] Lymphocytes Relative 25.4 % LAB HEMETOLOGY METHOD 07/07/2024 10:40 AM [facility] Monocytes Relative 12.5 % LAB HEMETOLOGY METHOD 07/07/2024 10:40 AM [facility] Eosinophils Relative 3.8 % LAB HEMETOLOGY METHOD 07/07/2024 10:40 AM [facility] Basophils Relative 0.8 % LAB HEMETOLOGY METHOD 07/07/2024 10:40 AM [facility] Immature Granulocytes Relative 0.3 % LAB HEMETOLOGY METHOD 07/07/2024 10:40 AM [facility] Neutrophils Absolute 3.42 1.50 - 7.00 K/mcL LAB HEMETOLOGY METHOD 07/07/2024 10:40 AM [facility] Lymphocytes Absolute 1.52 1.00 - 5.00 K/mcL LAB HEMETOLOGY METHOD 07/07/2024 10:40 AM [facility] Monocytes Absolute 0.75 0.20 - 1.00 K/mcL LAB HEMETOLOGY METHOD 07/07/2024 10:40 AM [facility] Eosinophils Absolute 0.23 0.00 - 0.50 K/mcL LAB HEMETOLOGY METHOD 07/07/2024 10:40 AM [facility] Basophils Absolute 0.05 0.00 - 0.20 K/mcL LAB HEMETOLOGY METHOD 07/07/2024 10:40 AM [facility] Immature Granulocytes Absolute 0.02 0.00 - 0.03 K/mcL LAB HEMETOLOGY METHOD 07/07/2024 10:[address] [facility] Blood Venous blood specimen / Unknown Venipuncture / Unknown 07/07/2024 6:34 AM EST 07/07/2024 9:05 AM EST us Chris Barlow MD LAB BLOOD ORDERABLES Final Resu lt [facility] [address] [place] [address], [place] [phone] * Basic metabolic panel (07/07/2024 6:34 AM EST) Sodium 135 133 - 145 mmol/L LAB CHEMISTRY METHOD 07/07/2024 11:20 AM [facility] Potassium 4.2 3.5 - 5.5 mmol/L LAB CHEMISTRY METHOD 07/07/2024 11:20 AM [facility] Chloride 100 96 - 110 mmol/L LAB CHEMISTRY METHOD 07/07/2024 11:20 AM [facility] CO2 28 21 - 32 mmol/L LAB CHEMISTRY METHOD 07/07/2024 11:20 AM [facility] Anion Gap 7 3 - 11 LAB CHEMISTRY METHOD 07/07/2024 11:20 AM [facility] Glucose 92 70 - 100 mg/dL LAB CHEMISTRY METHOD 07/07/2024 11:20 AM [facility] BUN 19 5 - 25 mg/dL LAB CHEMISTRY METHOD 07/07/2024 11:20 AM [facility] Creatinine 0.70 0.50 - 1.10 mg/dL LAB CHEMISTRY METHOD 07/07/2024 11:20 AM [facility] eGFR 86 >=60 mL/min/1. 73m2 LAB CHEMISTRY METHOD 07/07/2024 11:20 AM [facility] Comment:Calculation based on the??Chronic Kidney Disease Epidemiology Collaboration (CKD-EPI) equation refit??without adjustment for race. BUN/Creatinine Ratio 27.1 LAB CHEMISTRY METHOD 07/07/2024 11:[address] [facility] Calcium 9.0 8.5 - 10.5 mg/dL LAB CHEMISTRY METHOD 07/07/2024 11:[address] [facility] Blood Venous blood specimen / Unknown Venipuncture / Unknown 07/07/2024 6:34 AM EST 07/07/2024 9:05 AM EST us Chris Barlow MD LAB BLOOD ORDERABLES Final Resu lt [facility] [address] [place] [address], documented in this encounter Visit Diagnoses Diagnosis Encounter for other general examination documented in this encounter Additional Health Concerns Infection Onset Date Last Indicated Resolved Time Respiratory Rule-Out 07/26/2024 07/26/2024 025 3:02 AM EST COVID-19 Rule-Out 07/26/2024 07/26/2024 07/26/2024 3:02 AM EST documented as of this encounter Care Teams Shell Molding Roller Blast Operator Relationship Specialty Start Date End Date Leonardo García MD [address] [place] [id number] PCP - General Internal Medicine 06/30/24 documented as of this encounter
== END 2024-07-28 07:38 | disposition home or self-care (01) ==
LOC: HO.MMNH2L 07:37
PROVIDERS: Visit Provider Student in an Organized Health Care Education/Training Program
DX: N39.0 Urinary tract infection, site not specified (principal); R53.1 Weakness
CPT/HCPCS: 36415; 80048; 85025

== ENCOUNTER 2024-07-31 05:32 | Outpatient (REF) | payer MEDICARE, SELFPAY ==
[2024-07-31 05:35] LABS: MANUAL DIFF FLAG NO
[2024-07-31 06:10] LABS: Basophils Absolute Auto 0.1 X10*3/uL (0.0-0.2); Basophils Percent Auto 1.2 % (0-2); Eosinophils Absolute Auto 0.2 X10*3/uL (0.0-0.4); Eosinophils Percent Auto 4.7 % (0-4); Hematocrit 36.4 % (37.0-47.0); Hemoglobin 11.9 g/dl (12.0-16.0); Imm Gran Abs Auto 0.01 X10*3/uL (0.00-0.03); Imm Gran Pct Auto 0.2 % (0.0-0.4); Lymphocytes Absolute Auto 1.5 X10*3/uL (1.2-4.9); Lymphocytes Percent Auto 28.5 % (20-40); Mean Corpuscular HGB Conc 32.7 g/dl (31.0-35.0); Mean Corpuscular Hemoglobin 30.2 pg (27.0-33.0); Mean Corpuscular Volume 92.4 fL (80.0-98.0); Mean Platelet Volume 9.6 fL (9.4-12.3); Monocytes Absolute Auto 0.7 X10*3/uL (0.1-1.2); Monocytes Percent Auto 13.2 % (2-11); Neutrophils Absolute Auto 2.7 x10*3/uL (2.0-8.3); Neutrophils Percent Auto 52.2 % (45-73); Platelet Count 338 X10*3/uL (160-400); Red Blood Count 3.94 X10*6/uL (4.20-5.50); Red Cell Distribution Width 13.4 % (11.0-16.0); White Blood Count 5.1 X10*3/uL (4.8-10.8)
[2024-07-31 06:23] LABS: Alanine Aminotransferase 124 U/L (0-31); Albumin Level 3.4 g/dL (3.5-5.0); Alkaline Phosphatase 564 U/L (39-117); Anion Gap 13 (12-20); Aspartate Amino Transferase 33 U/L (5-31); Bilirubin Total 0.7 mg/dL (0.0-1.0); Blood Urea Nitrogen 12 mg/dL (9-16); Calcium 8.9 mg/dL (8.4-10.2); Carbon Dioxide 25 mmol/L (22-29); Chloride 106 mmol/L (96-108); Estimated Glomerular Filt Rate > 60; Glucose Random 99 mg/dL (60-115); Potassium 3.6 mmol/L (3.3-5.1); Sodium 140 mmol/L (135-145); Total Protein 6.3 g/dL (6.5-8.0)
== END 2024-07-31 05:33 | disposition home or self-care (01) ==
LOC: HO.MMNH2L 05:32
PROVIDERS: Visit Provider Student in an Organized Health Care Education/Training Program
DX: E78.5 Hyperlipidemia, unspecified (principal)
CPT/HCPCS: 36415; 80053; 85025

== ENCOUNTER 2024-08-04 06:19 | Outpatient (REF) | payer MEDICARE, SELFPAY ==
[2024-08-04 06:13] LABS: MANUAL DIFF FLAG NO
--- OUTSIDE RECORDS SUMMARY | 2024-08-04 06:31 | XMS_ITS | Clinical Summary ---
Author Organization [address] Address [address] [place] [phone] Phone Care Team Providers Care Enamel Burner Name Role Phone Leonardo García MD Primary Care Provider [phone] Allergies No known active allergies Medications aspirin [...] AM EST - 07/27/2024 1:30 PM [facility] Hospital Encounter [facility] Urology [address] [place] [address] Jomar Booth MD Surendran, Anupama, MD Hypokalemia (Primary Dx); Colon wall thickening; Elevated liver transaminase level Discharge Disposition: [facility] Facility 07/07/2024 Lab Requisition [facility] Lab [address] [place] [address] Chris Barlow MD Encounter for other general examination 07/06/[address] [facility] Lab [address] [place] [address] Chris Barlow MD Encounter for other general examination 07/05/[address] [facility] Lab [address] [place] [address] Chrsi Barlow MD Encounter for other general examination 06/29/[address] [facility] Lab [address] [place] [phone] Chris Barlow MD Encounter for other general examination 06/23/2024 Lab Requisition [facility] Main Lab [address] [place] [phone] Chris Barlow MD Encounter for other general examination 06/22/[address] [facility] Lab [address] [place] [phone] Chris Barlow MD Encounter for other general examination 06/21/[address] [facility] Lab [address] [place] [phone] Chris Barlow MD Encounter for other general [...] LAMINECTOMY DECOMPRESSION; Surgeon: Emeka Lopez MD; Location: [facility] MAIN OPERATING ROOM; Service: Spine; Laterality: Bilateral Posterior; LUMBAR FUSION 08/30/2017 Bilateral Posterior PROCEDURE:LUMBAR FUSION;COMMENT:Procedure: L4 - 5 FUSION SPINE LUMBAR POSTERIOR, INSTRUMENTED ARTHRODESIS; Surgeon: Emeka Lopez MD; Location: [facility]PERATING RO[facility]; Service: Spine; Laterality: Bilateral Posterior; AUTOGRAFT/SPINE SURGERY 08/30/2017 Left PROCEDURE:AUTOGRAFT/SPINE SURGERY;COMMENT:Procedure: AUTOGRAFT BONE SPINE; Surgeon: Emeka Lopez MD; Location: [facility] MAIN [facility]PERATING ROOM; Service: Spine; Laterality: Left; TOTAL KNEE ARTHROPLASTY 01/03/2021 Left PROCEDURE:TOTAL KNEE ARTHROPLASTY TOTAL HIP ARTHROPLASTY 02/16/2022 Left PROCEDURE:TOTAL HIP ARTHROPLASTY;COMMENT:Proce dure: REPLACEMENT TOTAL HIP; Surgeon: Ottoniel Wells MD; Location: [facility] Service: Orthopedics; [...] this topic Medical Devices Implanted Type Area Machine Maintenance Technician Device Identifier Shelf Expiration Date Model / Serial / Lot Cement Bone Surg Simplex Radiopq [facility] [id number] Implanted:Qty: 1 on 02/16/2022 by Ottoniel Wells MD Left: Hip [employer] [id number] 05/03/2023 6191-1-010 / / [id number] Hip Head Delta Biolox 36mm-2.5 [facility] [id number] Implanted:Qty: 1 on 02/16/2022 by Ottoniel Wells MD Left: Hip [employer] [id number] 11/10/2026 6570-0-436 / / [id number] Cement Bone Surg Simplex Radiopq [employer] [id number] 092 Implanted:Qty: 1 on 02/16/2022 by Ottoniel Wells MD Left: Hip [employer] [id number] 05/03/2023 6191-1-010 / / [id number] Lp Hex Screw 6.5x30mm Stry-Howm [id number] 78 Implanted:Qty: 1 on 02/16/2022 by Ottoniel Wells MD Left: Hip [employer] [id number] 12/15/2026 8547-6328 / / [id number] Tritanium Cluster Hole Shell 52mm Stry-Howm [id number] 473 Implanted:Qty: 1 on 02/16/2022 by Ottoniel Wells MD Left: Hip [employer] [id number] 09/28/2026 702-04-52E / / [id number] Lp Hex Screw 6.5x20mm Stry-Howm [id number] 57 Implanted:Qty: 1 on 02/16/2022 by Ottoniel Wells MD Left: Hip [employer] [id number] 11/23/2026 2797-9768 / / [id number] Hip Insrt X3 Trident 0d 36mm E Stry-Howm [id number] 921 Implanted:Qty: 1 on 02/16/2022 by Ottoniel Wells MD Left: Hip [employer] [id number] 09/24/2025 623-10-36E / / [id number] Hip Stm Parveen 127 #2 30 124 Stry-Howm [id number] 932 Implanted:Qty: 1 on 02/16/2022 by Ottoniel Wells MD Left: Hip [employer] [id number] 10/21/2026 6057-0230D / / [id number] Plug Bone Sm Str[place]on-How [id number] 871 Implanted:Qty: 1 on 02/16/2022 by Ottoniel Wells MD Left: Hip [employer] [id number] 11/16/2026 6215-5-001 / / [id number] Hip Dist Spacer [employer] #8 Str[employer]on-Ana [id number] 90 Implanted:Qty: 1 on 02/16/2022 by Ottoniel Wells MD Left: Hip [employer] [id number] 01/19/2027 4358-1617 / / [id number] Procedures Procedure Name Priority Date/Time Associated Diagnosis [...] K/mcL LAB HEMETOLOGY METHOD 07/27/2024 7:[address] [facility] RBC 3.80 3.80 - 4.80 M/mcL LAB HEMETOLOGY METHOD 07/27/2024 7:[address] [facility] Hemoglobin 11.8 11.5 - 16.0 g/dL LAB HEMETOLOGY METHOD 07/27/2024 7:[address] [facility] Hematocrit 36.3 35.0 - 47.0 % LAB HEMETOLOGY METHOD 07/27/2024 7:[address] [facility] MCV 94.5 79.0 - 98.0 FL LAB HEMETOLOGY METHOD 07/27/2024 7:[address] [facility] MCH 30.7 27.0 - 32.0 pcg LAB HEMETOLOGY METHOD 07/27/2024 7:[address] [facility] MCHC 32.5 32.0 - 37.0 g/dL LAB HEMETOLOGY METHOD 07/27/2024 7:[address] [facility] RDW 13.9 11.0 - 15.0 % LAB HEMETOLOGY METHOD 07/27/2024 7:[address] [facility] Platelets 300 130 - 400 K/mcL LAB HEMETOLOGY METHOD 07/27/2024 7:[address] [facility] MPV 9.7 7.0 - 11.0 FL LAB HEMETOLOGY METHOD 07/27/2024 7:[address] [facility] NRBC 0.0 <1.0 % LAB HEMETOLOGY METHOD 07/27/2024 7:[address] [facility] NRBC Absolute 0.00 <0.10 K/mcL LAB HEMETOLOGY METHOD 07/27/2024 7:[address] [facility] Neutrophils Relative 55.9 % LAB HEMETOLOGY METHOD 07/27/2024 7:[address] [facility] Lymphocytes Relative 26.7 % LAB HEMETOLOGY METHOD 07/27/2024 7:[address] [facility] Monocytes Relative 9.6 % LAB HEMETOLOGY METHOD 07/27/2024 7:[address] [facility] Eosinophils Relative 6.4 % LAB HEMETOLOGY METHOD 07/27/2024 7:[address] [facility] Basophils Relative 1.1 % LAB HEMETOLOGY METHOD 07/27/2024 7:[address] [facility] Immature Granulocytes Relative 0.3 % LAB HEMETOLOGY METHOD 07/27/2024 7:[address] [facility] Neutrophils Absolute 3.66 1.50 - 7.00 K/mcL LAB HEMETOLOGY METHOD 07/27/2024 7:[address] [facility] Lymphocytes Absolute 1.75 1.00 - 5.00 K/mcL LAB HEMETOLOGY METHOD 07/27/2024 7:50 AM EST [facility] Monocytes Absolute 0.63 0.20 - 1.00 K/[facility] LAB HEMETOLOGY METHOD 07/27/2024 7:50 AM EST [facility] Eosinophils Absolute 0.42 0.00 - 0.50 K/[facility] LAB HEMETOLOGY METHOD 07/27/2024 7:50 AM EST [facility] Basophils Absolute 0.07 0.00 - 0.20 K/[facility] LAB HEMETOLOGY METHOD 07/27/2024 7:50 AM EST [facility] Immature Granulocytes Absolute 0.02 0.00 - 0.03 K/[facility] LAB HEMETOLOGY METHOD 07/27/2024 7:50 AM EST [facility] Blood Venous blood specimen / Unknown Venipuncture / Unknown 07/27/2024 6:22 AM EST 07/27/2024 7:09 AM EST us Jeannie FORMAN LAB BLOOD ORDERABLES Final Result [facility] [address] [place] [address], * (ABNORMAL) Hepatic function panel (07/27/2024 6:22 AM EST) Total Protein 6.0 6.0 - 8.0 g/dL LAB CHEMISTRY METHOD 07/27/2024 7:56 AM EST [facility] Albumin 3.0(L) 3.2 - 5.0 g/dL LAB CHEMISTRY METHOD 07/27/2024 7:[address] [facility] Total Bilirubin 1.0 0.0 - 1.4 mg/dL LAB CHEMISTRY METHOD 07/27/2024 7:56 AM EST [facility] Bilirubin, Direct 0.4(H) 0.0 - 0.3 mg/dL LAB CHEMISTRY METHOD 07/27/2024 7:[address] [facility] Bilirubin, Indirect 0.6 0.0 - 1.1 mg/dL LAB CHEMISTRY METHOD 07/27/2024 7:[address] [facility] ALT (SGPT) 362(H) 10 - 60 unit/L LAB CHEMISTRY METHOD 07/27/2024 7:[address] [facility] AST (SGOT) 115(H) 10 - 42 unit/L LAB CHEMISTRY METHOD 07/27/2024 7:[address] [facility] Alkaline Phosphatase 912(H) 42 - 121 unit/L LAB CHEMISTRY METHOD 07/27/2024 7:[address] [facility] Blood Venous blood specimen / Unknown Venipuncture / Unknown 07/27/2024 6:22 AM EST 07/27/2024 7:10 AM EST us Jeannie FORMAN LAB BLOOD ORDERABLES Final Result [facility] [address] [place] [address], [place] [phone] * (ABNORMAL) Basic metabolic panel (07/27/2024 6:22 AM EST) Only the most recent of5 resultswithin the time period is included. Sodium 137 133 - 145 mmol/L LAB CHEMISTRY METHOD 07/27/2024 7:[address] [facility] Potassium 3.6 3.5 - 5.5 mmol/L LAB CHEMISTRY METHOD 07/27/2024 7:[address] [facility] Chloride 103 96 - 110 mmol/L LAB CHEMISTRY METHOD 07/27/2024 7:[address] [facility] CO2 29 21 - 32 mmol/L LAB CHEMISTRY METHOD 07/27/2024 7:[address] [facility] Anion Gap 5 3 - 11 LAB CHEMISTRY METHOD 07/27/2024 7:[address] [facility] Glucose 110(H) 70 - 100 mg/dL LAB CHEMISTRY METHOD 07/27/2024 7:[address] [facility] BUN 10 5 - 25 mg/dL LAB CHEMISTRY METHOD 07/27/2024 7:[address] [facility] Creatinine 0.49(L) 0.50 - 1.10 mg/dL LAB CHEMISTRY METHOD 07/27/2024 7:[address] [facility] eGFR 94 >=60 mL/min/1. 73m2 LAB CHEMISTRY METHOD 07/27/2024 7:[address] [facility] Comment:Calculation based on the??Chronic Kidney Disease Epidemiology Collaboration (CKD-EPI) equation refit??without adjustment for race. BUN/Creatinine Ratio 20.4 LAB CHEMISTRY METHOD 07/27/2024 7:[address] [facility] Calcium 9.4 8.5 - 10.5 mg/dL LAB CHEMISTRY METHOD 07/27/2024 7:[address] [facility] Blood Venous blood specimen / Unknown Venipuncture / Unknown 07/27/2024 6:22 AM EST 07/27/2024 7:10 AM EST us Jeannie FORMAN LAB BLOOD ORDERABLES Final Result [facility] [address] [place] [address], * MR Abdomen wo and w Contrast [...] LAB COAGULATION METHOD 07/26/2024 7:26 AM EST [facility] INR 0.9 LAB COAGULATION METHOD 07/26/2024 7:26 AM EST [facility] Blood Venous blood specimen / Unknown Venipuncture / Unknown 07/26/2024 6:14 AM EST 07/26/2024 6:51 AM EST us Jomar Booth MD LAB BLOOD ORDERABLES Final Result [facility] [address] [place] [address], [place] [phone] * (ABNORMAL) Comprehensive metabolic panel (07/26/2024 6:14 AM EST) Only the most recent of5 resultswithin the time period is included. Sodium 138 133 - 145 mmol/L LAB CHEMISTRY METHOD 07/26/2024 7:[address] [facility] Potassium 3.4(L) 3.5 - 5.5 mmol/L LAB CHEMISTRY METHOD 07/26/2024 7:[address] [facility] Chloride 103 96 - 110 mmol/L LAB CHEMISTRY METHOD 07/26/2024 7:[address] [facility] CO2 28 21 - 32 mmol/L LAB CHEMISTRY METHOD 07/26/2024 7:[address] [facility] Anion Gap 7 3 - 11 LAB CHEMISTRY METHOD 07/26/2024 7:[address] [facility] Glucose 103(H) 70 - 100 mg/dL LAB CHEMISTRY METHOD 07/26/2024 7:[address] [facility] BUN 10 5 - 25 mg/dL LAB CHEMISTRY METHOD 07/26/2024 7:[address] [facility] Creatinine 0.62 0.50 - 1.10 mg/dL LAB CHEMISTRY METHOD 07/26/2024 7:[address] [facility] eGFR 89 >=60 mL/min/1. 73m2 LAB CHEMISTRY METHOD 07/26/2024 7:[address] [facility] Comment:Calculation based on the??Chronic Kidney Disease Epidemiology Collaboration (CKD-EPI) equation refit??without adjustment for race. BUN/Creatinine Ratio 16.1 LAB CHEMISTRY METHOD 07/26/2024 7:[address] [facility] Calcium 9.4 8.5 - 10.5 mg/dL LAB CHEMISTRY METHOD 07/26/2024 7:[address] [facility] AST (SGOT) 196(H) 10 - 42 unit/L LAB CHEMISTRY METHOD 07/26/2024 7:[address] [facility] ALT (SGPT) 538(H) 10 - 60 unit/L LAB CHEMISTRY METHOD 07/26/2024 7:[address] [facility] Alkaline Phosphatase 986(H) 42 - 121 unit/L LAB CHEMISTRY METHOD 07/26/2024 7:[address] [facility] Total Protein 6.5 6.0 - 8.0 g/dL LAB CHEMISTRY METHOD 07/26/2024 7:[address] [facility] Albumin 3.3 3.2 - 5.0 g/dL LAB CHEMISTRY METHOD 07/26/2024 7:[address] [facility] Total Bilirubin 1.5(H) 0.0 - 1.4 mg/dL LAB CHEMISTRY METHOD 07/26/2024 7:[address] [facility] Blood Venous blood specimen / Unknown Venipuncture / Unknown 07/26/2024 6:14 AM EST 07/26/2024 6:50 AM EST us Jomar Booth MD LAB BLOOD ORDERABLES Final Result [facility] [address] [place] [address], * Respiratory virus panel molecular study (07/26/2024 2:05 AM EST) Adenovirus Detection by PCR Not Detected Not Detected LAB MICROBIOLOGY METHOD 07/26/2024 3:[address] [facility] Influenza A PCR Not Detected Not Detected LAB MICROBIOLOGY METHOD 07/26/2024 3:[address] [facility] Influenza B PCR Not Detected Not Detected LAB MICROBIOLOGY METHOD 07/26/2024 3:[address] [facility] Coronavirus 229E Not Detected Not Detected LAB MICROBIOLOGY METHOD 07/26/2024 3:[address] [facility] Coronavirus HKU1 Not Detected Not Detected LAB MICROBIOLOGY METHOD 07/26/2024 3:[address] [facility] Coronavirus OC43 Not Detected Not Detected LAB MICROBIOLOGY METHOD 07/26/2024 3:[address] [facility] Coronavirus NL63 Not Detected Not Detected LAB MICROBIOLOGY METHOD 07/26/2024 3:[address] [facility] Parainfluenza Virus 1 Not Detected Not Detected LAB MICROBIOLOGY METHOD 07/26/2024 3:[address] [facility] Parainfluenza Virus 2 Not Detected Not Detected LAB MICROBIOLOGY METHOD 07/26/2024 3:[address] [facility] Parainfluenza Virus 3 Not Detected Not Detected LAB MICROBIOLOGY METHOD 07/26/2024 3:[address] [facility] Parainfluenza Virus 4 Not Detected Not Detected LAB MICROBIOLOGY METHOD 07/26/2024 3:[address] [facility] RSV PCR Not Detected Not Detected LAB MICROBIOLOGY METHOD 07/26/2024 3:[address] [facility] Human Metapneumovirus A and B Not Detected Not Detected LAB MICROBIOLOGY METHOD 07/26/2024 3:[address] [facility] Rhinovirus/Entero virus Not Detected Not Detected LAB MICROBIOLOGY METHOD 07/26/2024 3:[address] [facility] Bordetella pertussis Not Detected Not Detected LAB MICROBIOLOGY METHOD 07/26/2024 3:[address] [facility] Bordetella parapertussis Not Detected Not Detected LAB MICROBIOLOGY METHOD 07/26/2024 3:[address] [facility] Mycoplasma pneumo by PCR Not Detected Not Detected LAB MICROBIOLOGY METHOD 07/26/2024 3:02 AM EST [facility] Chlamydia pneumoniae Not Detected Not Detected LAB MICROBIOLOGY METHOD 07/26/2024 3:02 AM EST [facility] SARS COV-2 Not Detected Not Detected LAB MICROBIOLOGY METHOD 07/26/2024 3:02 AM EST [facility] Swab Structure of right anterior naris / Unknown Non-blood Collection / Unknown 07/26/2024 2:05 AM EST 07/26/2024 2:14 AM EST [facility] - 07/26/2024 3:02 AM EST Testing was performed using the [employer] Respiratory Pathogen PCR Assay. All results must [...] MICROBIOLOGY - GENERAL OR DERABLES Final Result [facility] [address] [place] [address], * [place] Abdomen Limited (07/26/2024 12:37 AM [...] resultswithin the time period is included. Specific [place] Urine 1.040(H) 1.003 - 1.030 LAB URINALYSIS - AUTOMATED METHOD 07/25/2024 8:[address] [facility] pH, Urine 7.0 5.0 - 8.0 pH LAB URINALYSIS - AUTOMATED METHOD 07/25/2024 8:[address] [facility] Leukocytes, Urine Small(A) Negative LAB URINALYSIS - AUTOMATED METHOD 07/25/2024 8:[address] [facility] Nitrite, Urine Negative Negative LAB URINALYSIS - AUTOMATED METHOD 07/25/2024 8:[address] [facility] Protein, Urine Negative <=Trace mg/dL LAB URINALYSIS - AUTOMATED METHOD 07/25/2024 8:[address] [facility] Glucose, Urine Negative Negative mg/dL LAB URINALYSIS - AUTOMATED METHOD 07/25/2024 8:[address] [facility] Ketones, Urine Trace(A) Negative mg/dL LAB URINALYSIS - AUTOMATED METHOD 07/25/2024 8:[address] [facility] Urobilinogen, Urine 1.0 0.2 - 1.0 mg/dL LAB URINALYSIS - AUTOMATED METHOD 07/25/2024 8:[address] [facility] Bilirubin, Urine Negative Negative LAB URINALYSIS - AUTOMATED METHOD 07/25/2024 8:[address] [facility] Blood, Urine Negative Negative LAB URINALYSIS - AUTOMATED METHOD 07/25/2024 8:[address] [facility] RBC, Urine 1.7 0 - 4 /HPF LAB URINALYSIS - AUTOMATED METHOD 07/25/2024 8:[address] [facility] WBC, Urine 16.3(H) 0 - 4 /HPF LAB URINALYSIS - AUTOMATED METHOD 07/25/2024 8:[address] [facility] Squamous Epithelial, Urine >100(H) 0 - 60 /LPF LAB URINALYSIS - AUTOMATED METHOD 07/25/2024 8:[address] [facility] Bacteria, Urine Few(A) Negative /HPF LAB URINALYSIS - AUTOMATED METHOD 07/25/2024 8:[address] [facility] Hyaline Casts, Urine 5.6(H) 0 - 3 /LPF LAB URINALYSIS - AUTOMATED METHOD 07/25/2024 8:[address] [facility] Urine Urine specimen obtained by clean catch procedure / Unknown Non-blood Collection / Unknown 07/25/2024 7:41 PM EST 07/25/2024 7:59 PM EST us Jomar Booth MD LAB URINE ORDERABLES Final Result [facility] [address] [place] [address], * Jay urine culture tube (07/25/2024 7:41 PM EST) Only the most recent of2 resultswithin the time period is included. Extra Tube Hold for add-ons. 07/25/2024 9:01 PM EST [facility] Comment:Auto resulted. Urine Urine specimen obtained by clean catch procedure / Unknown Non-blood Collection / Unknown 07/25/2024 7:41 PM EST 07/25/2024 7:59 PM EST us Jomar Booth MD LAB URINE ORDERABLES Final Result [facility] [address] [place] [address], * (ABNORMAL) Culture urine (07/25/2024 7:41 PM EST) Only the most recent of2 resultswithin the time period is included. Culture, Urine 50,000-100,000 CFU/mL Escherichia coli(A) JUDIE 07/27/2024 11:55 AM EST [facility] Comment: This is an edited result. Previous organism was Gram negative bacilli on 07/26/2024 at 1325 EST. Urine Urine specimen obtained by clean catch procedure / Unknown Non-blood Collection / Unknown 07/25/2024 7:41 PM EST 07/25/2024 8:57 PM EST Narrative [facility] - 07/27/2024 11:55 AM EST [...] GENERAL ORDERABLES Final Result Performing Organization Address [facility] [address]/ZIP Co de Phone Number [facility] [address] [place] [address], [place] [phone] * Lactate (07/25/2024 7:34 PM EST) [facility] [employer] Signature Lactate 1.2 0.4 - 2.0 mmol/L LAB CHEMISTRY METHOD 07/25/2024 8:37 PM EST [facility] Blood Venous blood specimen / Unknown Venipuncture / Unknown 07/25/2024 7:34 PM EST 07/25/2024 7:59 PM EST Kaci Buiny John CAIN LAB BLOOD ORDERABLES Payal l Result Performing Organization Address [facility] [address]/ZIP Co de Phone Number [facility] [address] [place] [address], [place] [phone] * CT Abdomen Pelvis w Contrast (07/25/2024 [...] Chaparro MD on 07/25/2024 17:55:43 Brianna FORMAN [facility] CT PROCEDURES Final Re sult * (ABNORMAL) Bilirubin duplicate procedure to order (07/25/2024 2:10 PM EST) Total Bilirubin 2.2(H) 0.0 - 1.4 mg/dL LAB CHEMISTRY METHOD 07/25/2024 3:26 PM EST [facility] Bilirubin, Direct 1.4(H) 0.0 - 0.3 mg/dL LAB CHEMISTRY METHOD 07/25/2024 3:26 PM EST [facility] Bilirubin, Indirect 0.8 0.0 - 1.1 mg/dL LAB CHEMISTRY METHOD 07/25/2024 3:26 PM EST [facility] Blood Venous blood specimen / Unknown Venipuncture / Unknown 07/25/2024 2:10 PM EST 07/25/2024 2:23 PM EST Brianna FORMAN LAB BLOOD ORDERABLES Final Result Performing Organization Address [facility] [address]/ZIP Co de Phone Number [facility] [address] [place] [address], [place] [phone] * Hepatitis panel, acute with reflex to confirmation (07/25/2024 2:10 PM EST) Hepatitis B Surface Ag Negative Negative LAB CHEMISTRY METHOD 07/25/2024 7:43 PM EST [facility] Hepatitis A Antibody IgM Negative Negative LAB CHEMISTRY METHOD 07/25/2024 7:43 PM EST [facility] Hep B Core IgM Negative Negative LAB CHEMISTRY METHOD 07/25/2024 7:43 PM EST [facility] Hepatitis C Antibody Negative Negative LAB CHEMISTRY METHOD 07/25/2024 7:43 PM EST [facility] Blood Venous blood specimen / Unknown Venipuncture / Unknown 07/25/2024 2:10 PM EST 07/25/2024 2:23 PM EST Kaci Lopez DO LAB BLOOD ORDERABLES Payal l Result Performing Organization Address City/[facility] [address]/ZIP Co de Phone Number [facility] [address] [place] [address], [place] [phone] * Magnesium (07/25/2024 2:10 PM EST) Only the most recent of5 resultswithin the time period is included. Pathologist [facility] Magnesium 2.0 1.9 - 2.6 mg/dL LAB CHEMISTRY METHOD 07/25/2024 10:55 PM EST [facility] Blood Venous blood specimen / Unknown Venipuncture / Unknown 07/25/2024 2:10 PM EST 07/25/2024 2:23 PM EST Jomar Booth MD LAB BLOOD ORDERABLES Final Result Performing Organization Address [facility] [address]/[facility] Co de Phone Number [facility] [address] [place] [address], [place] [phone] * Lipase (07/25/2024 2:10 PM EST) [facility] Lipase 21 13 - 75 unit/L LAB CHEMISTRY METHOD 07/25/2024 6:50 PM EST [facility] Blood Venous blood specimen / Unknown Venipuncture / Unknown 07/25/2024 2:10 PM EST 07/25/2024 2:23 PM EST Kaci Lopez DO LAB BLOOD ORDERABLES Payal l Result Performing Organization Address [facility] [address]/[facility] de Phone Number [facility] [address] [place] [address], [place] [phone] * (ABNORMAL) GGT (07/25/2024 2:10 PM EST) [facility] GGT 933(H) 7 - 64 unit/L LAB CHEMISTRY METHOD 07/25/2024 9:38 PM EST [facility] Blood Venous blood specimen / Unknown Venipuncture / Unknown 07/25/2024 2:10 PM EST 07/25/2024 2:23 PM EST us Jomar Booth MD LAB BLOOD ORDERABLES Final Result Performing Organization Address [facility] [address]/[facility] Co de Phone Number [facility] [address] [place] [address], [place] [phone] * (ABNORMAL) Acetaminophen level (07/25/2024 2:10 PM EST) [facility] Acetaminophen Level <2.0(L) 10.0 - 30.0 mcg/mL LAB CHEMISTRY METHOD 07/25/2024 6:50 PM EST [facility] Blood Venous blood specimen / Unknown Venipuncture / Unknown 07/25/2024 2:10 PM EST 07/25/2024 2:23 PM EST Kaci Buiny John DO LAB BLOOD ORDERABLES Payal l Result [facility] [address] [place] [address], [place] [phone] * (ABNORMAL) POCT Glucose, blood (07/25/2024 11:26 AM EST) [facility] Glucose POCT 177(H) 70 - 100 mg/dL 07/25/2024 11:27 AM EST [facility] Blood Capillary blood specimen / Unknown 07/25/2024 11:26 AM EST 07/25/2024 11:29 AM EST us Generic Provider Poct LAB POINT OF CARE TEST DOCKED DEVICE UNSOLICITED RESULTS Final Result Performing Organization Address [facility] [address]/[facility] Co de Phone Number [facility] [address] [place] [address], [place] [phone] from Last [address] [facility] [place] Advance Directives Documents on File Type Date Recorded Patient Aquaculture Director Expl anation Health Care Decision (hx) 02/16/2022 [...] currently active code status orders. Care Teams Enamel Burner Relationship Specialty Start Date End Date Leonardo García MD [address] [place] [id number] PCP - General Internal Medicine 06/30/24
--- OUTSIDE RECORDS SUMMARY | 2024-08-04 06:31 | XMS_ITS ---
Author Organization [facility] Address [address] [place] [address] Care Team Providers Care Front Facer Name Role Phone Ashleigh Grullon MD Primary Care Provider UnavailMukesh Mccormick [phone] REASON FOR VISIT follow up after procedure Encounters Encounter Location Date Provider Diagnosis [facility] [address] [place] [address] 04/23/2023 Mukesh Bearden PLAN OF TREATMENT No Information
--- OUTSIDE RECORDS SUMMARY | 2024-08-04 06:31 | XMS_ITS | Encounter Summary ---
Author Organization [facility] Address [address] [place] [address] Care Team Providers Care Jewelsmith Name Role Phone Leonardo Gracía MD Primary Care Provider [phone] Reason for Visit * Reason Comments Abnormal Labs * Auth/Cert (Routine) Specialty Diagnoses / Procedures Referred By Contac t Referred To Contact Diagnoses Hypokalemia Elevated LFTs Colon wall thickening Elevated liver transaminase level Procedures PA HOSPITAL IP/OBS CARE INITIAL MODERATE LEVEL PER DAY . Jomar Booth MD [address] [place] [address] Phone: tel: fax: [facility] Urology Unit [address] [place] [phone] Phone: tel: Referral ID Status Reason Start Date Expiration Date Visits Re quested Visits Authorized [id number] 1 1 Encounter Details Date Type Department Care Team (Latest Contact Info) Description 07/25/2024 11:18 AM EST - 07/27/2024 1:30 PM EST Hospital Encounter [facility] [address] [place] [phone] Jomar Booth MD [address] [place] [address] Tammie Lewis MD [address] [place] [phone] Hypokalemia (Primary Dx); Colon wall thickening; Elevated liver transaminase level Discharge Disposition: Halfway Facility Social History Tobacco Use Types Packs/Day [...] with exception that she thought she was [facility] instead of [facility]. She did not want to converse much and did not respond when asked about medication. She currently resides at [facility]. Vitals are as follows: Temperature of 36.5, [...] will be transferred to the care of [facility] staff for further management of their elevated [...] baseline. Repeat LFTs in 3 days at [facility]. Avoid hepatotoxins. As for question of colitison CT she is without any lower abdominal pain, diarrhea, fever. Lactate was WNL 1.2. Low suspicion for colitis. Plan is for her to transfer back to [facility] on 07/27. Hypokalemia: Potassium on arrival was [...] Neurological Exam: Alert and oriented to person, [facility] and 2024 Psychiatric: Stable mood and affect. [...] Disposition Code Departure Means Destination Comment s Halfway Facility documented in this encounter Progress Notes * Luna Miller RN - 07/27/2024 3:34 PM EST 07/27/24 1534 Transportation Transportation at discharge [facility] providing transportation [place] What day is the transport expected? 07/27/24 What time is the transport expected? 1330 Final Discharge Disposition Halfway Facility Pt returned to [facility]. Pt's daughter notified of d/c and agreed with plan * Amber Varela - 07/27/2024 1:30 PM EST SPIRITUAL CARE Date/Time:07/27/24 at 1:30 PM EST Type of Visit: Initial Visit and Wallpaper Remover Steam Rounding Reason for Visit: Spiritual/Emotional Support and Spiritual Assessment Time Spent: 15 Minutes Location: [address] [place] [address] Sacramental Encounters: Sacrament of Sick-Anointing: Anointed Spiritual [...] quality of care given and caregivers. Holley pentecostalism is Religious. Voiced desire to receive anointing of the [...] usually? Transcendence Do you have a particular pentecostalism, holley, or spirituality? Is your pentecostalism/spirituality/holley challenged by what is happening to you [...] Neurological Exam: Alert and oriented to person, [facility] and 2024 Psychiatric: Stable mood and affect. [...] Emergency contact is the patient's daughter, Yamel [phone] and Cassandra [phone]. 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 Daughter Cassandra confirmed that pt was recently at respite at the [facility] and had a fall. Pt has since been at [facility] for rehab. Plan is to return to [...] Shift Summary: alert and pleasantly confused, from [facility], viral panel negative, abd U/S complated, pt awaiting MRCP * Nina Crocker RN - 07/25/2024 9:27 PM EST ED RN HANDOFF (All Lui Below Must Be Completed) Reason/Diagnosis for Admission: Type of Admission: [x] Medsurg, [] Telemetry Already in a Hospital Bed: [] Yes / [x] No Room Considerations/Precautions (ex: fever, diarrhea, or any infectious concerns): [] Yes / [x] No Ultrasonic Cleaner: [] Yes / [x] No If YES, Cardiac Rhythm: [] NSR, [] SB, [] ST, [] A-FIB, [] A-Flutter, [] Pacemaker, [] 1st Degree HB, [] 2nd Degree HB, [] 3rd Degree HB Reason for Ultrasonic Cleaner: VS: Visit Vitals BP (!) 186/99 (BP [...] IS PROXY IS ALSO IN HOSPITAL. TEL: [phone] OKAY TO CALL ANYTIME. Nina Crocker RN 07/25/24 2684 * Tayo Gomez RN - 07/25/2024 11:24 AM EST ANDREAA from [facility] with concerns of increased liver panel. Patient complaining of dizziness, and abdominal pain. ? Biliary obstruction. Fsbg 46 for EMS * Bella Smith RN - 07/25/2024 11:[address] Perez from [facility] called and states send the pt in for ? Biliary obstruction, jaundice. States to call with any questions [phone] or cell # [phone] Bella Smith RN 07/25/24 0643 * DICKSON Naranjo - 07/25/2024 11:12 AM [...] with Levaquin on July 18 presenting from [facility] evaluation of increased liver function tests. Specific [...] BONE SPINE; Surgeon: Emeka Lopez MD; Location: [facility] MAIN OPERATING ROOM; Service: Spine; Laterality: Left; BACK SURGERY PROCEDURE:BACK SURGERY CATARACT EXTRACTION W/ INTRAOCULAR LENS IMPLANT PROCEDURE:CATARACT EXTRACTION W/ INTRAOCULAR LENS IMPLANT DENTAL SURGERY PROCEDURE:DENTAL SURGERY;COMMENT:wisdom teeth LUMBAR FUSION Bilateral Posterior 08/30/2017 PROCEDURE:LUMBAR FUSION;COMMENT:Procedure: L4 - 5 FUSION SPINE LUMBAR POSTERIOR, INSTRUMENTED ARTHRODESIS; Surgeon: Emeka Lopez MD; Location: [facility] MAIN OPERATING ROOM; Service: Spine; Laterality:Bilateral Posterior; LUMBAR LAMINECTOMY Bilateral Posterior 08/30/2017 PROCEDURE:LUMBAR LAMINECTOMY;COMMENT:Procedure: L4, L5 LAMINECTOMY DECOMPRESSION; Surgeon: Emeka Lopez MD; Location: [facility] MAIN OPERATING ROOM; Service: Spine; Laterality: Bilateral Posterior; ROTATOR CUFF REPAIR 2013 PROCEDURE:ROTATOR CUFF REPAIR TONSILLECTOMY PROCEDURE:TONSILLECTOMY TOTAL HIP ARTHROPLASTY Left 02/16/2022 PROCEDURE:TOTAL HIP ARTHROPLASTY;COMMENT:Procedure: REPLACEMENT TOTAL HIP; Surgeon: Ottoniel Wells MD; Location: [facility] ([facility]); Service: Orthopedics; [...] Procedure Abnormality Status --------- ------ CBC auto differential[[id number]] Final result Please view results for these [...] Abnormality Status --------- ------ Urinalysis with reflex m...[[id number]] In process Jay urine culture tube[[id number]] In process Please view results for these [...] states that her mother has been at [facility] for approximately 10 days after having spinal fusion performed at [facility] on June [address] Shaw. [RO] 8772 CT imaging reveals colonic thickening, consistent with [...] to Inpatient ED Prescriptions None Physician Attestation DICKSON Naranjo 07/25/24 1149 DICKSON Naranjo 07/25/24 1831 DICKSON Naranjo 07/25/242050 Cosigned by Chidi Klein MD at 07/26/2024 9:24 AM EST documented in this encounter H&P Notes * DICKSON Alvarez - 07/25/2024 10:41 PM EST Images from the original note were not included. [facility] HISTORY AND PHYSICAL Please contact author [DICKSON Alvarez] via [employer]. Patient: Crystal Barrera Admission Date/Time: 07/25/2024 11:18 [...] with exception that she thought she was [facility] instead of [facility]. She did not want to converse much and did not respond when asked about medication. She currently resides at [facility]. Vitals are as follows: Temperature of 36.5, [...] will be transferred to the care of [facility] staff for further management of their elevated [...] BONE SPINE; Surgeon: Emeka Lopez MD; Location: [facility] MAIN OPERATING ROOM; Service: Spine; Laterality: Left; BACK SURGERY PROCEDURE:BACK SURGERY CATARACT EXTRACTION W/ INTRAOCULAR LENS IMPLANT PROCEDURE:CATARACT EXTRACTION W/ INTRAOCULAR LENS IMPLANT DENTAL SURGERY PROCEDURE:DENTAL SURGERY;COMMENT:wisdom teeth LUMBAR FUSION Bilateral Posterior 08/30/2017 PROCEDURE:LUMBAR FUSION;COMMENT:Procedure: L4 - 5 FUSION SPINE LUMBAR POSTERIOR, INSTRUMENTED ARTHRODESIS; Surgeon: Emeka Lopez MD; Location: [facility] MAIN OPERATING ROOM; Service: Spine; Laterality:Bilateral Posterior; LUMBAR LAMINECTOMY Bilateral Posterior 08/30/2017 PROCEDURE:LUMBAR LAMINECTOMY;COMMENT:Procedure: L4, L5 LAMINECTOMY DECOMPRESSION; Surgeon: Emeka Lopez MD; Location: [facility] MAIN OPERATING ROOM; Service: Spine; Laterality: Bilateral Posterior; ROTATOR CUFF REPAIR 2013 PROCEDURE:ROTATOR CUFF REPAIR TONSILLECTOMY PROCEDURE:TONSILLECTOMY TOTAL HIP ARTHROPLASTY Left 02/16/2022 PROCEDURE:TOTAL HIP ARTHROPLASTY;COMMENT:Procedure: REPLACEMENT TOTAL HIP; Surgeon: Ottoniel Wells MD; Location: [facility] ([facility]); Service: Orthopedics; [...] onward) [place] Ordered 07/25/24 2250 Adult diet [facility]; General; Regular Diet effective 0500 Question Answer Comment Location [facility] Diet Type (req) General General Diet Regular [...] K/mcL LAB HEMETOLOGY METHOD 07/27/2024 7:50 AM [facility] RBC 3.80 3.80 - 4.80 M/mcL LAB HEMETOLOGY METHOD 07/27/2024 7:50 AM [facility] Hemoglobin 11.8 11.5 - 16.0 g/dL LAB HEMETOLOGY METHOD 07/27/2024 7:50 AM [facility] Hematocrit 36.3 35.0 - 47.0 % LAB HEMETOLOGY METHOD 07/27/2024 7:50 AM [facility] MCV 94.5 79.0 - 98.0 FL LAB HEMETOLOGY METHOD 07/27/2024 7:50 AM [facility] MCH 30.7 27.0 - 32.0 pcg LAB HEMETOLOGY METHOD 07/27/2024 7:50 AM [facility] MCHC 32.5 32.0 - 37.0 g/dL LAB HEMETOLOGY METHOD 07/27/2024 7:50 AM [facility] RDW 13.9 11.0 - 15.0 % LAB HEMETOLOGY METHOD 07/27/2024 7:50 AM [facility] Platelets 300 130 - 400 K/mcL LAB HEMETOLOGY METHOD 07/27/2024 7:50 AM [facility] MPV 9.7 7.0 - 11.0 FL LAB HEMETOLOGY METHOD 07/27/2024 7:50 AM [facility] NRBC 0.0 <1.0 % LAB HEMETOLOGY METHOD 07/27/2024 7:50 AM [facility] NRBC Absolute 0.00 <0.10 K/mcL LAB HEMETOLOGY METHOD 07/27/2024 7:50 AM [facility] Neutrophils Relative 55.9 % LAB HEMETOLOGY METHOD 07/27/2024 7:50 AM [facility] Lymphocytes Relative 26.7 % LAB HEMETOLOGY METHOD 07/27/2024 7:50 AM [facility] Monocytes Relative 9.6 % LAB HEMETOLOGY METHOD 07/27/2024 7:50 AM [facility] Eosinophils Relative 6.4 % LAB HEMETOLOGY METHOD 07/27/2024 7:50 AM [facility] Basophils Relative 1.1 % LAB HEMETOLOGY METHOD 07/27/2024 7:50 AM [facility] Immature Granulocytes Relative 0.3 % LAB HEMETOLOGY METHOD 07/27/2024 7:50 AM [facility] Neutrophils Absolute 3.66 1.50 - 7.00 K/mcL LAB HEMETOLOGY METHOD 07/27/2024 7:50 AM [facility] Lymphocytes Absolute 1.75 1.00 - 5.00 K/mcL LAB HEMETOLOGY METHOD 07/27/2024 7:50 AM [facility] Monocytes Absolute 0.63 0.20 - 1.00 K/mcL LAB HEMETOLOGY METHOD 07/27/2024 7:50 AM [facility] Eosinophils Absolute 0.42 0.00 - 0.50 K/mcL LAB HEMETOLOGY METHOD 07/27/2024 7:50 AM EST [facility] Basophils Absolute 0.07 0.00 - 0.20 K/mcL LAB HEMETOLOGY METHOD 07/27/2024 7:50 AM [facility] Immature Granulocytes Absolute 0.02 0.00 - 0.03 K/mcL LAB HEMETOLOGY METHOD 07/27/2024 7:50 AM EST [facility] Blood Venous blood specimen / Unknown Venipuncture / Unknown 07/27/2024 6:22 AM EST 07/27/2024 7:09 AM EST Jeannie FORMAN LAB BLOOD ORDERABLES Final Result [facility] [address] [place] [address], * (ABNORMAL) Hepatic function panel (07/27/2024 6:22 AM EST) Total Protein 6.0 6.0 - 8.0 g/dL LAB CHEMISTRY METHOD 07/27/2024 7:56 AM [facility] Albumin 3.0(L) 3.2 - 5.0 g/dL LAB CHEMISTRY METHOD 07/27/2024 7:56 AM [facility] Total Bilirubin 1.0 0.0 - 1.4 mg/dL LAB CHEMISTRY METHOD 07/27/2024 7:56 AM [facility] Bilirubin, Direct 0.4(H) 0.0 - 0.3 mg/dL LAB CHEMISTRY METHOD 07/27/2024 7:56 AM [facility] Bilirubin, Indirect 0.6 0.0 - 1.1 mg/dL LAB CHEMISTRY METHOD 07/27/2024 7:56 AM [facility] ALT (SGPT) 362(H) 10 - 60 unit/L LAB CHEMISTRY METHOD 07/27/2024 7:56 AM [facility] AST (SGOT) 115(H) 10 - 42 unit/L LAB CHEMISTRY METHOD 07/27/2024 7:56 AM [facility] Alkaline Phosphatase 912(H) 42 - 121 unit/L LAB CHEMISTRY METHOD 07/27/2024 7:56 AM [facility] Blood Venous blood specimen / Unknown Venipuncture / Unknown 07/27/2024 6:22 AM EST 07/27/2024 7:10 AM EST us Jeannie FORMAN LAB BLOOD ORDERABLES Final Result [facility] [address] [place] [address], [place] [phone] * (ABNORMAL) Basic metabolic panel (07/27/2024 6:22 AM EST) Sodium 137 133 - 145 mmol/L LAB CHEMISTRY METHOD 07/27/2024 7:47 AM [facility] Potassium 3.6 3.5 - 5.5 mmol/L LAB CHEMISTRY METHOD 07/27/2024 7:47 AM [facility] Chloride 103 96 - 110 mmol/L LAB CHEMISTRY METHOD 07/27/2024 7:47 AM [facility] CO2 29 21 - 32 mmol/L LAB CHEMISTRY METHOD 07/27/2024 7:47 AM [facility] Anion Gap 5 3 - 11 LAB CHEMISTRY METHOD 07/27/2024 7:47 AM [facility] Glucose 110(H) 70 - 100 mg/dL LAB CHEMISTRY METHOD 07/27/2024 7:47 AM [facility] BUN 10 5 - 25 mg/dL LAB CHEMISTRY METHOD 07/27/2024 7:47 AM [facility] Creatinine 0.49(L) 0.50 - 1.10 mg/dL LAB CHEMISTRY METHOD 07/27/2024 7:47 AM EST [facility] eGFR 94 >=60 mL/min/1. 73m2 LAB CHEMISTRY METHOD 07/27/2024 7:47 AM EST [facility] Comment:Calculation based on the??Chronic Kidney Disease Epidemiology Collaboration (CKD-EPI) equation refit??without adjustment for race. BUN/Creatinine Ratio 20.4 LAB CHEMISTRY METHOD 07/27/2024 7:47 AM EST [facility] Calcium 9.4 8.5 - 10.5 mg/dL LAB CHEMISTRY METHOD 07/27/2024 7:47 AM EST [facility] Blood Venous blood specimen / Unknown Venipuncture / Unknown 07/27/2024 6:22 AM EST 07/27/2024 7:10 AM EST us Jeannie FORMAN LAB BLOOD ORDERABLES Final Result [facility] [address] [place] [address], [place] [phone] * MR Abdomen wo and w Contrast [...] K/mcL LAB HEMETOLOGY METHOD 07/26/2024 7:18 AM [facility] RBC 4.10 3.80 - 4.80 M/mcL LAB HEMETOLOGY METHOD 07/26/2024 7:18 AM [facility] Hemoglobin 12.5 11.5 - 16.0 g/dL LAB HEMETOLOGY METHOD 07/26/2024 7:18 AM [facility] Hematocrit 38.3 35.0 - 47.0 % LAB HEMETOLOGY METHOD 07/26/2024 7:18 AM [facility] MCV 93.9 79.0 - 98.0 FL LAB HEMETOLOGY METHOD 07/26/2024 7:18 AM [facility] MCH 30.6 27.0 - 32.0 pcg LAB HEMETOLOGY METHOD 07/26/2024 7:18 AM [facility] MCHC 32.6 32.0 - 37.0 g/dL LAB HEMETOLOGY METHOD 07/26/2024 7:18 AM [facility] RDW 13.9 11.0 - 15.0 % LAB HEMETOLOGY METHOD 07/26/2024 7:18 AM [facility] Platelets 308 130 - 400 K/mcL LAB HEMETOLOGY METHOD 07/26/2024 7:18 AM [facility] MPV 9.7 7.0 - 11.0 FL LAB HEMETOLOGY METHOD 07/26/2024 7:18 AM [facility] NRBC 0.0 <1.0 % LAB HEMETOLOGY METHOD 07/26/2024 7:18 AM [facility] NRBC Absolute 0.00 <0.10 K/mcL LAB HEMETOLOGY METHOD 07/26/2024 7:18 AM [facility] Neutrophils Relative 51.3 % LAB HEMETOLOGY METHOD 07/26/2024 7:18 AM [facility] Lymphocytes Relative 30.7 % LAB HEMETOLOGY METHOD 07/26/2024 7:18 AM [facility] Monocytes Relative 9.5 % LAB HEMETOLOGY METHOD 07/26/2024 7:18 AM [facility] Eosinophils Relative 7.4 % LAB HEMETOLOGY METHOD 07/26/2024 7:18 AM [facility] Basophils Relative 0.7 % LAB HEMETOLOGY METHOD 07/26/2024 7:18 AM [facility] Immature Granulocytes Relative 0.4 % LAB HEMETOLOGY METHOD 07/26/2024 7:18 AM [facility] Neutrophils Absolute 2.91 1.50 - 7.00 K/mcL LAB HEMETOLOGY METHOD 07/26/2024 7:18 AM EST [facility] Lymphocytes Absolute 1.74 1.00 - 5.00 K/[facility] LAB HEMETOLOGY METHOD 07/26/2024 7:18 AM [facility] Monocytes Absolute 0.54 0.20 - 1.00 K/[facility] LAB HEMETOLOGY METHOD 07/26/2024 7:18 AM EST [facility] Eosinophils Absolute 0.42 0.00 - 0.50 K/[facility] LAB HEMETOLOGY METHOD 07/26/2024 7:18 AM [facility] Basophils Absolute 0.04 0.00 - 0.20 K/[facility] LAB HEMETOLOGY METHOD 07/26/2024 7:18 AM [facility] Immature Granulocytes Absolute 0.02 0.00 - 0.03 K/[facility] LAB HEMETOLOGY METHOD 07/26/2024 7:18 AM [facility] Blood Venous blood specimen / Unknown Venipuncture / Unknown 07/26/2024 6:14 AM EST 07/26/2024 6:54 AM EST us Jomar Booth MD LAB BLOOD ORDERABLES Final Result [facility] [address] [place] [address], * (ABNORMAL) Comprehensive metabolic panel (07/26/2024 6:14 AM EST) Sodium 138 133 - 145 mmol/L LAB CHEMISTRY METHOD 07/26/2024 7:53 AM [facility] Potassium 3.4(L) 3.5 - 5.5 mmol/L LAB CHEMISTRY METHOD 07/26/2024 7:53 AM [facility] Chloride 103 96 - 110 mmol/L LAB CHEMISTRY METHOD 07/26/2024 7:53 AM [facility] CO2 28 21 - 32 mmol/L LAB CHEMISTRY METHOD 07/26/2024 7:53 AM [facility] Anion Gap 7 3 - 11 LAB CHEMISTRY METHOD 07/26/2024 7:53 AM [facility] Glucose 103(H) 70 - 100 mg/dL LAB CHEMISTRY METHOD 07/26/2024 7:53 AM [facility] BUN 10 5 - 25 mg/dL LAB CHEMISTRY METHOD 07/26/2024 7:53 AM [facility] Creatinine 0.62 0.50 - 1.10 mg/dL LAB CHEMISTRY METHOD 07/26/2024 7:53 AM [facility] eGFR 89 >=60 mL/min/1. 73m2 LAB CHEMISTRY METHOD 07/26/2024 7:53 AM [facility] Comment:Calculation based on the??Chronic Kidney Disease Epidemiology Collaboration (CKD-EPI) equation refit??without adjustment for race. BUN/Creatinine Ratio 16.1 LAB CHEMISTRY METHOD 07/26/2024 7:53 AM [facility] Calcium 9.4 8.5 - 10.5 mg/dL LAB CHEMISTRY METHOD 07/26/2024 7:53 AM [facility] AST (SGOT) 196(H) 10 - 42 unit/L LAB CHEMISTRY METHOD 07/26/2024 7:53 AM [facility] ALT (SGPT) 538(H) 10 - 60 unit/L LAB CHEMISTRY METHOD 07/26/2024 7:53 AM [facility] Alkaline Phosphatase 986(H) 42 - 121 unit/L LAB CHEMISTRY METHOD 07/26/2024 7:53 AM [facility] Total Protein 6.5 6.0 - 8.0 g/dL LAB CHEMISTRY METHOD 07/26/2024 7:53 AM [facility] Albumin 3.3 3.2 - 5.0 g/dL LAB CHEMISTRY METHOD 07/26/2024 7:53 AM [facility] Total Bilirubin 1.5(H) 0.0 - 1.4 mg/dL LAB CHEMISTRY METHOD 07/26/2024 7:53 AM EST [facility] Blood Venous blood specimen / Unknown Venipuncture / Unknown 07/26/2024 6:14 AM EST 07/26/2024 6:50 AM EST Jomar Booth MD LAB BLOOD ORDERABLES Final Result Performing Organization Address City/[facility]/ZIP Co de Phone Number [facility] [address] [place] [address], [place] [phone] * Prothrombin time with INR (07/26/2024 6:14 AM EST) [facility] Protime 11.3 10.6 - 13.9 sec LAB COAGULATION METHOD 07/26/2024 7:26 AM [facility] INR 0.9 LAB COAGULATION METHOD 07/26/2024 7:26 AM [facility] Blood Venous blood specimen / Unknown Venipuncture / Unknown 07/26/2024 6:14 AM EST 07/26/2024 6:51 AM EST us Jomar Booth MD LAB BLOOD ORDERABLES Final Result Performing Organization Address [facility]/ZIP Co de Phone Number [facility] [address] [place] [address], [place] [phone] * Respiratory virus panel molecular study (07/26/2024 2:05 AM EST) [facility] Adenovirus Detection by PCR Not Detected Not Detected LAB MICROBIOLOGY METHOD 07/26/2024 3:02 AM EST [facility] Influenza A PCR Not Detected Not Detected LAB MICROBIOLOGY METHOD 07/26/2024 3:02 AM [facility] Influenza B PCR Not Detected Not Detected LAB MICROBIOLOGY METHOD 07/26/2024 3:02 AM EST [facility] Coronavirus 229E Not Detected Not Detected LAB MICROBIOLOGY METHOD 07/26/2024 3:02 AM [facility] Coronavirus HKU1 Not Detected Not Detected LAB MICROBIOLOGY METHOD 07/26/2024 3:02 AM [facility] Coronavirus OC43 Not Detected Not Detected LAB MICROBIOLOGY METHOD 07/26/2024 3:02 AM [facility] Coronavirus NL63 Not Detected Not Detected LAB MICROBIOLOGY METHOD 07/26/2024 3:02 AM [facility] Parainfluenza Virus 1 Not Detected Not Detected LAB MICROBIOLOGY METHOD 07/26/2024 3:02 AM [facility] Parainfluenza Virus 2 Not Detected Not Detected LAB MICROBIOLOGY METHOD 07/26/2024 3:02 AM [facility] Parainfluenza Virus 3 Not Detected Not Detected LAB MICROBIOLOGY METHOD 07/26/2024 3:02 AM [facility] Parainfluenza Virus 4 Not Detected Not Detected LAB MICROBIOLOGY METHOD 07/26/2024 3:02 AM [facility] RSV PCR Not Detected Not Detected LAB MICROBIOLOGY METHOD 07/26/2024 3:02 AM [facility] Human Metapneumovirus A and B Not Detected Not Detected LAB MICROBIOLOGY METHOD 07/26/2024 3:02 AM [facility] Rhinovirus/Entero virus Not Detected Not Detected LAB MICROBIOLOGY METHOD 07/26/2024 3:02 AM [facility] Bordetella pertussis Not Detected Not Detected LAB MICROBIOLOGY METHOD 07/26/2024 3:02 AM [facility] Bordetella parapertussis Not Detected Not Detected LAB MICROBIOLOGY METHOD 07/26/2024 3:02 AM [facility] Mycoplasma pneumo by PCR Not Detected Not Detected LAB MICROBIOLOGY METHOD 07/26/2024 3:02 AM [facility] Chlamydia pneumoniae Not Detected Not Detected LAB MICROBIOLOGY METHOD 07/26/2024 3:02 AM [facility] SARS COV-2 Not Detected Not Detected LAB MICROBIOLOGY METHOD 07/26/2024 3:02 AM [facility] Swab Structure of right anterior naris / Unknown Non-blood Collection / Unknown 07/26/2024 2:05 AM EST 07/26/2024 2:14 AM EST [facility] - 07/26/2024 3:02 AM EST Testing was performed using the [employer] Respiratory Pathogen PCR Assay. All results must [...] MICROBIOLOGY - GENERAL OR DERABLES Final Result [facility] [address] [place] [address], [place] [phone] * (ABNORMAL) Basic metabolic panel (07/26/2024 1:06 AM EST) Sodium 140 133 - 145 mmol/L LAB CHEMISTRY METHOD 07/26/2024 2:07 AM [facility] Potassium 3.5 3.5 - 5.5 mmol/L LAB CHEMISTRY METHOD 07/26/2024 2:07 AM [facility] Chloride 105 96 - 110 mmol/L LAB CHEMISTRY METHOD 07/26/2024 2:07 AM [facility] CO2 28 21 - 32 mmol/L LAB CHEMISTRY METHOD 07/26/2024 2:07 AM [facility] Anion Gap 7 3 - 11 LAB CHEMISTRY METHOD 07/26/2024 2:07 AM [facility] Glucose 143(H) 70 - 100 mg/dL LAB CHEMISTRY METHOD 07/26/2024 2:07 AM [facility] BUN 9 5 - 25 mg/dL LAB CHEMISTRY METHOD 07/26/2024 2:07 AM EST [facility] [facility] Creatinine 0.58 0.50 - 1.10 mg/dL LAB CHEMISTRY METHOD 07/26/2024 2:07 AM EST [facility] eGFR 90 >=60 mL/min/1. 73m2 LAB CHEMISTRY METHOD 07/26/2024 2:07 AM EST [facility] Comment:Calculation based on the??Chronic Kidney Disease Epidemiology Collaboration (CKD-EPI) equation refit??without adjustment for race. BUN/Creatinine Ratio 15.5 LAB CHEMISTRY METHOD 07/26/2024 2:07 AM EST [facility] Calcium 8.9 8.5 - 10.5 mg/dL LAB CHEMISTRY METHOD 07/26/2024 2:07 AM EST [facility] Blood Venous blood specimen / Unknown Venipuncture / Unknown 07/26/2024 1:06 AM EST 07/26/2024 1:28 AM EST us Nayely FORMAN LAB BLOOD ORDERABLES Final Re sult [facility] [address] [place] [address], [place] [phone] * [place] Abdomen Limited (07/26/2024 12:37 AM [...] Escherichia coli(A) JUDIE 07/27/2024 11:55 AM EST [facility] Comment: This is an edited result. Previous organism was Gram negative bacilli on 07/26/2024 at 1325 EST. Urine Urine specimen obtained by clean catch procedure / Unknown Non-blood Collection / Unknown 07/25/2024 7:41 PM EST 07/25/2024 8:57 PM EST Narrative [facility] - 07/27/2024 11:55 AM EST Additional [...] ORDERABLES Final Result Performing Organization Address [facility]/ZIP Co de Phone Number [facility] [address] [place] [address], [place] [phone] * Jay urine culture tube (07/25/2024 7:41 PM EST) [facility] Extra Tube Hold for add-ons. 07/25/2024 9:01 PM EST [facility] Comment:Auto resulted. Urine Urine specimen obtained by clean catch procedure / Unknown Non-blood Collection / Unknown 07/25/2024 7:41 PM EST 07/25/2024 7:59 PM EST Jomar Booth MD LAB URINE ORDERABLES Final Result Performing Organization Address [facility]/ZIP Co de Phone Number [facility] [address] [place] [address], [place] [phone] * (ABNORMAL) Urinalysis with reflex microscopic and culture (07/25/2024 7:41 PM EST) Pathologist [facility] Specific [place] Urine 1.040(H) 1.003 - 1.030 LAB URINALYSIS - AUTOMATED METHOD 07/25/2024 8:57 PM EST [facility] pH, Urine 7.0 5.0 - 8.0 pH LAB URINALYSIS - AUTOMATED METHOD 07/25/2024 8:57 PM [facility] Leukocytes, Urine Small(A) Negative LAB URINALYSIS - AUTOMATED METHOD 07/25/2024 8:57 PM [facility] Nitrite, Urine Negative Negative LAB URINALYSIS - AUTOMATED METHOD 07/25/2024 8:57 PM [facility] Protein, Urine Negative <=Trace mg/dL LAB URINALYSIS - AUTOMATED METHOD 07/25/2024 8:57 PM [facility] Glucose, Urine Negative Negative mg/dL LAB URINALYSIS - AUTOMATED METHOD 07/25/2024 8:57 PM [facility] Ketones, Urine Trace(A) Negative mg/dL LAB URINALYSIS - AUTOMATED METHOD 07/25/2024 8:57 PM [facility] Urobilinogen, Urine 1.0 0.2 - 1.0 mg/dL LAB URINALYSIS - AUTOMATED METHOD 07/25/2024 8:57 PM [facility] Bilirubin, Urine Negative Negative LAB URINALYSIS - AUTOMATED METHOD 07/25/2024 8:57 PM [facility] Blood, Urine Negative Negative LAB URINALYSIS - AUTOMATED METHOD 07/25/2024 8:57 PM [facility] RBC, Urine 1.7 0 - 4 /HPF LAB URINALYSIS - AUTOMATED METHOD 07/25/2024 8:57 PM [facility] WBC, Urine 16.3(H) 0 - 4 /HPF LAB URINALYSIS - AUTOMATED METHOD 07/25/2024 8:57 PM [facility] Squamous Epithelial, Urine >100(H) 0 - 60 /LPF LAB URINALYSIS - AUTOMATED METHOD 07/25/2024 8:57 PM [facility] Bacteria, Urine Few(A) Negative /HPF LAB URINALYSIS - AUTOMATED METHOD 07/25/2024 8:57 PM [facility] Hyaline Casts, Urine 5.6(H) 0 - 3 /LPF LAB URINALYSIS - AUTOMATED METHOD 07/25/2024 8:57 PM EST [facility] Urine Urine specimen obtained by clean catch procedure / Unknown Non-blood Collection / Unknown 07/25/2024 7:41 PM EST 07/25/2024 7:59 PM EST Jomar Booth MD LAB URINE ORDERABLES Final Result Performing Organization Address [facility]/ZIP Co de Phone Number [facility] [address] [place] [address], [place] [phone] * Lactate (07/25/2024 7:34 PM EST) Lactate 1.2 0.4 - 2.0 mmol/L LAB CHEMISTRY METHOD 07/25/2024 8:37 PM EST [facility] Blood Venous blood specimen / Unknown Venipuncture / Unknown 07/25/2024 7:34 PM EST 07/25/2024 7:59 PM EST us Kaci Lopez DO LAB BLOOD ORDERABLES Payal l Result Performing Organization Address [facility]/ZIP Co de Phone Number [facility] [address] [place] [address], [place] [phone] * CT Abdomen Pelvis w Contrast (07/25/2024 [...] LAB CHEMISTRY METHOD 07/25/2024 9:38 PM EST [facility] Blood Venous blood specimen / Unknown Venipuncture / Unknown 07/25/2024 2:10 PM EST 07/25/2024 2:23 PM EST Jomar Booth MD LAB BLOOD ORDERABLES Final Result [facility] [address] [place] [address], [place] [phone] * Magnesium (07/25/2024 2:10 PM EST) Magnesium 2.0 1.9 - 2.6 mg/dL LAB CHEMISTRY METHOD 07/25/2024 10:55 PM EST [facility] Blood Venous blood specimen / Unknown Venipuncture / Unknown 07/25/2024 2:10 PM EST 07/25/2024 2:23 PM EST Jomar Booth MD LAB BLOOD ORDERABLES Final Result Performing Organization Address [facility]/ZIP Co de Phone Number [facility] [address] [place] [address], [place] [phone] * (ABNORMAL) Acetaminophen level (07/25/2024 2:10 PM EST) Pathologist [facility] Acetaminophen Level <2.0(L) 10.0 - 30.0 mcg/mL LAB CHEMISTRY METHOD 07/25/2024 6:50 PM EST [facility] Blood Venous blood specimen / Unknown Venipuncture / Unknown 07/25/2024 2:10 PM EST 07/25/2024 2:23 PM EST Kaci Lopez DO LAB BLOOD ORDERABLES Payal l Result Performing Organization Address City/[facility]/ZIP Co de Phone Number [facility] [address] [place] [address], [place] [phone] * Hepatitis panel, acute with reflex to confirmation (07/25/2024 2:10 PM EST) Pathologist [facility] Hepatitis B Surface Ag Negative Negative LAB CHEMISTRY METHOD 07/25/2024 7:43 PM EST [facility] Hepatitis A Antibody IgM Negative Negative LAB CHEMISTRY METHOD 07/25/2024 7:43 PM EST [facility] Hep B Core IgM Negative Negative LAB CHEMISTRY METHOD 07/25/2024 7:43 PM EST [facility] Hepatitis C Antibody Negative Negative LAB CHEMISTRY METHOD 07/25/2024 7:43 PM EST [facility] Blood Venous blood specimen / Unknown Venipuncture / Unknown 07/25/2024 2:10 PM EST 07/25/2024 2:23 PM EST Marino Eligio Lopez LAB BLOOD ORDERABLES Payal l Result Performing Organization Address [facility]/ZIP Co de Phone Number [facility] [address] [place] [address], [place] [phone] * Lipase (07/25/2024 2:10 PM EST) [facility] Lipase 21 13 - 75 unit/L LAB CHEMISTRY METHOD 07/25/2024 6:50 PM EST [facility] Blood Venous blood specimen / Unknown Venipuncture / Unknown 07/25/2024 2:10 PM EST 07/25/2024 2:23 PM EST [facility] Eligio Aaron [facility] LAB BLOOD ORDERABLES Payal l Result Performing Organization Address [facility] de Phone Number [facility] [address] [place] [address], [place] [phone] * (ABNORMAL) Bilirubin duplicate procedure to order (07/25/2024 2:10 PM EST) Pathologist [facility] Total Bilirubin 2.2(H) 0.0 - 1.4 mg/dL LAB CHEMISTRY METHOD 07/25/2024 3:26 PM EST [facility] Bilirubin, Direct 1.4(H) 0.0 - 0.3 mg/dL LAB CHEMISTRY METHOD 07/25/2024 3:26 PM EST [facility] Bilirubin, Indirect 0.8 0.0 - 1.1 mg/dL LAB CHEMISTRY METHOD 07/25/2024 3:26 PM EST [facility] Blood Venous blood specimen / Unknown Venipuncture / Unknown 07/25/2024 2:10 PM EST 07/25/2024 2:23 PM EST Brianna FORMAN LAB BLOOD ORDERABLES Final Result [facility] [address] [place] [address], [place] [phone] * (ABNORMAL) Comprehensive metabolic panel (07/25/2024 2:10 PM EST) Sodium 140 133 - 145 mmol/L LAB CHEMISTRY METHOD 07/25/2024 4:02 PM [facility] Potassium 2.9(LL) 3.5 - 5.5 mmol/L LAB CHEMISTRY METHOD 07/25/2024 4:02 PM [facility] Chloride 103 96 - 110 mmol/L LAB CHEMISTRY METHOD 07/25/2024 4:02 PM [facility] CO2 28 21 - 32 mmol/L LAB CHEMISTRY METHOD 07/25/2024 4:02 PM [facility] Anion Gap 9 3 - 11 LAB CHEMISTRY METHOD 07/25/2024 4:02 PM [facility] Glucose 101(H) 70 - 100 mg/dL LAB CHEMISTRY METHOD 07/25/2024 4:02 PM [facility] BUN 10 5 - 25 mg/dL LAB CHEMISTRY METHOD 07/25/2024 4:02 PM [facility] Creatinine 0.62 0.50 - 1.10 mg/dL LAB CHEMISTRY METHOD 07/25/2024 4:02 PM [facility] eGFR 89 >=60 mL/min/1 .73m2 LAB CHEMISTRY METHOD 07/25/2024 4:02 PM [facility] Comment:Calculation based on the??Chronic Kidney Disease Epidemiology Collaboration (CKD-EPI) equation refit??without adjustment for race. BUN/Creatinine Ratio 16.1 LAB CHEMISTRY METHOD 07/25/2024 4:02 PM [facility] Calcium 9.3 8.5 - 10.5 mg/dL LAB CHEMISTRY METHOD 07/25/2024 4:02 PM [facility] AST (SGOT) 328(H) 10 - 42 unit/L LAB CHEMISTRY METHOD 07/25/2024 4:02 PM [facility] ALT (SGPT) 693(H) 10 - 60 unit/L LAB CHEMISTRY METHOD 07/25/2024 4:02 PM [facility] Alkaline Phosphatase 1,054(H) 42 - 121 unit/L LAB CHEMISTRY METHOD 07/25/2024 4:02 PM [facility] Total Protein 6.6 6.0 - 8.0 g/dL LAB CHEMISTRY METHOD 07/25/2024 4:02 PM [facility] Albumin 3.4 3.2 - 5.0 g/dL LAB CHEMISTRY METHOD 07/25/2024 4:02 PM [facility] Total Bilirubin 2.2(H) 0.0 - 1.4 mg/dL LAB CHEMISTRY METHOD 07/25/2024 4:02 PM [facility] Blood Venous blood specimen / Unknown Venipuncture / Unknown 07/25/2024 2:10 PM EST 07/25/2024 2:23 PM EST us Brianna FORMAN LAB BLOOD ORDERABLES Final Result [facility] [address] [place] [address], * Prothrombin time with INR (07/25/2024 12:49 PM EST) Protime 13.1 10.6 - 13.9 sec LAB COAGULATION METHOD 07/25/2024 1:02 PM [facility] INR 1.0 LAB COAGULATION METHOD 07/25/2024 1:02 PM [facility] Blood Venous blood specimen / Unknown Venipuncture / Unknown 07/25/2024 12:49 PM EST 07/25/2024 12:53 PM EST Brianna FORMAN LAB BLOOD ORDERABLES Final Result [facility] [address] [place] [address], * CBC auto differential (07/25/2024 11:54 AM EST) WBC 6.1 4.8 - 10.8 K/mcL LAB HEMETOLOGY METHOD 07/25/2024 12:30 PM [facility] RBC 3.90 3.80 - 4.80 M/mcL LAB HEMETOLOGY METHOD 07/25/2024 12:30 PM [facility] Hemoglobin 12.3 11.5 - 16.0 g/dL LAB HEMETOLOGY METHOD 07/25/2024 12:30 PM [facility] Hematocrit 36.7 35.0 - 47.0 % LAB HEMETOLOGY METHOD 07/25/2024 12:30 PM [facility] MCV 93.1 79.0 - 98.0 FL LAB HEMETOLOGY METHOD 07/25/2024 12:30 PM [facility] MCH 31.2 27.0 - 32.0 pcg LAB HEMETOLOGY METHOD 07/25/2024 12:30 PM [facility] MCHC 33.5 32.0 - 37.0 g/dL LAB HEMETOLOGY METHOD 07/25/2024 12:30 PM [facility] RDW 13.9 11.0 - 15.0 % LAB HEMETOLOGY METHOD 07/25/2024 12:30 PM [facility] Platelets 321 130 - 400 K/mcL LAB HEMETOLOGY METHOD 07/25/2024 12:30 PM [facility] MPV 10.4 7.0 - 11.0 FL LAB HEMETOLOGY METHOD 07/25/2024 12:30 PM [facility] NRBC 0.0 <1.0 % LAB HEMETOLOGY METHOD 07/25/2024 12:30 PM [facility] NRBC Absolute 0.00 <0.10 K/mcL LAB HEMETOLOGY METHOD 07/25/2024 12:30 PM [facility] Neutrophils Relative 60.8 % LAB HEMETOLOGY METHOD 07/25/2024 12:30 PM [facility] Lymphocytes Relative 23.2 % LAB HEMETOLOGY METHOD 07/25/2024 12:30 PM [facility] Monocytes Relative 9.4 % LAB HEMETOLOGY METHOD 07/25/2024 12:30 PM [facility] Eosinophils Relative 5.9 % LAB HEMETOLOGY METHOD 07/25/2024 12:30 PM [facility] Basophils Relative 0.5 % LAB HEMETOLOGY METHOD 07/25/2024 12:30 PM [facility] Immature Granulocytes Relative 0.2 % LAB HEMETOLOGY METHOD 07/25/2024 12:30 PM [facility] Neutrophils Absolute 3.70 1.50 - 7.00 K/mcL LAB HEMETOLOGY METHOD 07/25/2024 12:30 PM [facility] Lymphocytes Absolute 1.41 1.00 - 5.00 K/mcL LAB HEMETOLOGY METHOD 07/25/2024 12:30 PM [facility] Monocytes Absolute 0.57 0.20 - 1.00 K/mcL LAB HEMETOLOGY METHOD 07/25/2024 12:30 PM [facility] Eosinophils Absolute 0.36 0.00 - 0.50 K/mcL LAB HEMETOLOGY METHOD 07/25/2024 12:30 PM EST [facility] Basophils Absolute 0.03 0.00 - 0.20 K/[facility] LAB HEMETOLOGY METHOD 07/25/2024 12:30 PM EST [facility] Immature Granulocytes Absolute 0.01 0.00 - 0.03 K/mcL LAB HEMETOLOGY METHOD 07/25/2024 12:30 PM EST [facility] Blood Venous blood specimen / Unknown Venipuncture / Unknown 07/25/2024 11:54 AM EST 07/25/2024 12:26 PM EST Jomar Booth MD LAB BLOOD ORDERABLES Final Result [facility] [address] [place] [address], [place] [phone] * (ABNORMAL) POCT Glucose, blood (07/25/2024 11:26 AM EST) [facility] Signature Glucose POCT 177(H) 70 - 100 mg/dL 07/25/2024 11:27 AM EST [facility] Blood Capillary blood specimen / Unknown 07/25/2024 11:26 AM EST 07/25/2024 11:29 AM EST Generic Provider Poct LAB POINT OF CARE TEST DOCKED DEVICE UNSOLICITED RESULTS Final Result [facility] [address] [place] [address], [place] [phone] documented in this encounter Visit Diagnoses Diagnosis [...] at 2249, 2nd Line Option: -ONLY give PA if patient is unable to take orally [...] at 2249, 2nd Line Option: -ONLY give PA if patient is unable to take orally [...] at 2249, 2nd Line Option: -ONLY give PA if patient is unable to take orally [...] documented as of this encounter Care Teams Jewelsmith Relationship Specialty Start Date End Date Leonardo García MD [address] [place] [id number] PCP - General Internal Medicine 06/30/24 documented as of this encounter
--- OUTSIDE RECORDS SUMMARY | 2024-08-04 06:31 | XMS_ITS | Patient Health Record ---
Author Organization [facility] Address [address] [place] [address] Care Team Providers Care Cab Driver Name Role Phone Ashleigh Grullon MD Primary Care Provider Mukesh Taveras [phone] ALLERGIES Allergen (clinical drug ingredient) Drug/Non Drug [...] bleeding (K29.01) Active confirmed Acute hemorrhagic gastritis (4700935) Problem Diverticulosis of large intestine without perforation or abscess without bleeding (K57.30) Active confirmed Diverticul ar disease of colon (191464788) Problem Iron deficiency anemia (D50.9) Active confirmed Iron deficien cy anemia (56208775) Problem Hiatal hernia (K44.9) Active confirmed Hiatal hernia (15445213) Problem Chronic diarrhea (K52.9) Active confirmed Chronic diarrhea (765838192) Problem Chronic gastritis with bleeding, unspecified gastritis type (K29.51) Active confirmed Chronic antral gastritis with hemorrhage (disorder) (812474008) Problem Gastric ulcer (K25.9) Active confirmed Gastric ulcer (682620313) Problem Gastritis, erosive (K29.60) Active confirmed Erosive gastritis (60953225853341 00) VITAL SIGNS Temperature 96.4 degrees Fahrenheit 08/28/2023 Blood pressure diastolic 00 mm Hg 08/28/2023 Height 63.5 in 08/28/2023 Blood pressure systolic 00 mm Hg 08/28/2023 Weight 150 lbs 08/28/2023 BMI 26.15 kg/m2 08/28/2023 Encounters Encounter Location Date Provider Diagnosis [facility] [address] [place] [address] 08/28/2023 Mukesh Bearden Iron deficiency anem ia [...] OF [place] [address] [place] [address] [phone] [id number] SRINIVASAN ALVARADO Self - patient is the insured [facility] [employer]AN [address] [place] [address] [phone] [id number] SRINIVASAN ALVARADO Self - patient is the insured MEDICAL (GENERAL) HISTORY Medical History History ICD Code Denies IN,DM,CVA,Lung disease,renal dise ase Colonoscopy in 10/2001 with [...]
--- OUTSIDE RECORDS SUMMARY | 2024-08-04 06:31 | XMS_ITS | Encounter Summary ---
Author Organization [facility] Address [address] [place] [address] Care Team Providers Care Charm Filter Operator Helper Name Role Phone Leonardo García MD Primary Care Provider [phone] Encounter Details Date Type Department Care Team (Late st Contact Info) Description 06/22/2024 Lab Requisition [facility] [address] [facility] [place] [address] Chris Barlow MD [address] [place] [address] Encounter for other general examination Social History [...] mmol/L LAB CHEMISTRY METHOD 06/22/2024 9:17 AM [facility] Potassium 3.4(L) 3.5 - 5.5 mmol/L LAB CHEMISTRY METHOD 06/22/2024 9:17 AM [facility] Chloride 101 96 - 110 mmol/L LAB CHEMISTRY METHOD 06/22/2024 9:17 AM [facility] CO2 28 21 - 32 mmol/L LAB CHEMISTRY METHOD 06/22/2024 9:17 AM [facility] Anion Gap 8 3 - 11 LAB CHEMISTRY METHOD 06/22/2024 9:17 AM [facility] Glucose 128(H) 70 - 100 mg/dL LAB CHEMISTRY METHOD 06/22/2024 9:17 AM [facility] BUN 14 5 - 25 mg/dL LAB CHEMISTRY METHOD 06/22/2024 9:17 AM [facility] Creatinine 0.60 0.50 - 1.10 mg/dL LAB CHEMISTRY METHOD 06/22/2024 9:17 AM [facility] eGFR 90 >=60 mL/min/1. 73m2 LAB CHEMISTRY METHOD 06/22/2024 9:17 AM [facility] Comment:Calculation based on the??Chronic Kidney Disease Epidemiology Collaboration (CKD-EPI) equation refit??without adjustment for race. BUN/Creatinine Ratio 23.3 LAB CHEMISTRY METHOD 06/22/2024 9:17 AM [facility] Calcium 8.3(L) 8.5 - 10.5 mg/dL LAB CHEMISTRY METHOD 06/22/2024 9:17 AM [facility] Blood Venous blood specimen / Unknown Venipuncture / Unknown 06/22/2024 6:05 AM EST 06/22/2024 8:27 AM EST us Chris Barlow MD LAB BLOOD ORDERABLES Final Resu lt [facility] [address] [place], [place] [address] [phone] documented in this encounter Visit Diagnoses Diagnosis Encounter for other general examination documented in this encounter Additional Health Concerns Infection Onset Date Last Indicated Resolved Time Respiratory Rule-Out 07/26/2024 07/26/2024 025 3:02 AM EST COVID-19 Rule-Out 07/26/2024 07/26/2024 07/26/2024 3:02 AM EST documented as of this encounter Care Teams Charm Filter Operator Helper Relationship Specialty Start Date End Date Leonardo García MD [address] [place] [id number] PCP - General Internal Medicine 06/30/24 documented as of this encounter
--- OUTSIDE RECORDS SUMMARY | 2024-08-04 06:31 | XMS_ITS ---
Author Organization [facility] Address [address] [place] [address] Care Team Providers Care Concession Supervisor Name Role Phone Ashleigh Grullon MD Primary Care Provider Mukesh Taveras [phone] ALLERGIES Allergen (clinical drug ingredient) Drug/Non Drug [...] Hiatal hernia (K44.9) Active confirmed Hiatal hernia (00370668) Problem Acute gastritis with bleeding (K29.01) Active confirmed Acute hemorrhagic gastritis (9404919) Problem Chronic gastritis with bleeding, unspecified gastritis type (K29.51) Active confirmed Chronic antral gastritis with hemorrhage (disorder) (627362820) Problem Chronic diarrhea (K52.9) Active confirmed Chronic diarrhea (486214558) VITAL SIGNS Temperature 96.4 degrees Fahrenheit 08/28/19 24 Blood pressure systolic 00 mm Hg 08/28/19 24 Blood pressure diastolic 00 mm Hg 024 Height 63.5 in 08/28/2023 Weight 150 lbs 08/28/2023 BMI 26.15 kg/m2 08/28/2023 Encounters Encounter Location Date Provider Diagnosis [facility] [address] [place] [address] 08/28/2023 Mukesh Bearden Iron deficiency anem ia [...]
--- OUTSIDE RECORDS SUMMARY | 2024-08-04 06:31 | XMS_ITS | Encounter Summary ---
Author Organization [facility] Address [address] [place] [address] Care Team Providers Care Senior Informatica Etl Developer Name Role Phone Leonardo García MD Primary Care Provider [phone] Encounter Details Date Type Department Care Team (Late st Contact Info) Description 06/29/2024 Lab Requisition [facility] - Main Lab [address] [facility] [place] [address] Chris Barlow MD [address] [place] [address] Encounter for other general examination Social History [...] CBC auto differential (06/29/2024 5:48 AM EST) [facility] Signature WBC 9.9 4.8 - 10.8 K/mcL LAB HEMETOLOGY METHOD 06/29/2024 10:26 AM [facility] RBC 3.60(L) 3.80 - 4.80 M/mcL LAB HEMETOLOGY METHOD 06/29/2024 10:26 AM [facility] Hemoglobin 11.2(L) 11.5 - 16.0 g/dL LAB HEMETOLOGY METHOD 06/29/2024 10:26 AM [facility] Hematocrit 33.3(L) 35.0 - 47.0 % LAB HEMETOLOGY METHOD 06/29/2024 10:26 AM [facility] MCV 93.0 79.0 - 98.0 FL LAB HEMETOLOGY METHOD 06/29/2024 10:26 AM [facility] MCH 31.3 27.0 - 32.0 pcg LAB HEMETOLOGY METHOD 06/29/2024 10:26 AM [facility] LAB MCHC 33.6 32.0 - 37.0 g/dL LAB HEMETOLOGY METHOD 06/29/2024 10:26 AM [facility] RDW 13.8 11.0 - 15.0 % LAB HEMETOLOGY METHOD 06/29/2024 10:26 AM [facility] Platelets 373 130 - 400 K/mcL LAB HEMETOLOGY METHOD 06/29/2024 10:26 AM [facility] MPV 9.4 7.0 - 11.0 FL LAB HEMETOLOGY METHOD 06/29/2024 10:26 AM [facility] NRBC 0.0 <1.0 % LAB HEMETOLOGY METHOD 06/29/2024 10:26 AM [facility] LAB NRBC Absolute 0.00 <0.10 K/mcL LAB HEMETOLOGY METHOD 06/29/2024 10:26 AM [facility] Neutrophils Relative 64.0 % LAB HEMETOLOGY METHOD 06/29/2024 10:26 AM [facility] Lymphocytes Relative 25.2 % LAB HEMETOLOGY METHOD 06/29/2024 10:26 AM [facility] Monocytes Relative 7.8 % LAB HEMETOLOGY METHOD 06/29/2024 10:26 AM [facility] Eosinophils Relative 2.0 % LAB HEMETOLOGY METHOD 06/29/2024 10:26 AM [facility] Basophils Relative 0.4 % LAB HEMETOLOGY METHOD 06/29/2024 10:26 AM [facility] Immature Granulocytes Relative 0.6 % LAB HEMETOLOGY METHOD 06/29/2024 10:26 AM [facility] Neutrophils Absolute 6.31 1.50 - 7.00 K/mcL LAB HEMETOLOGY METHOD 06/29/2024 10:26 AM [facility] Lymphocytes Absolute 2.49 1.00 - 5.00 K/mcL LAB HEMETOLOGY METHOD 06/29/2024 10:26 AM [facility] Monocytes Absolute 0.77 0.20 - 1.00 K/mcL LAB HEMETOLOGY METHOD 06/29/2024 10:26 AM [facility] Eosinophils Absolute 0.20 0.00 - 0.50 K/mcL LAB HEMETOLOGY METHOD 06/29/2024 10:26 AM [facility] Basophils Absolute 0.04 0.00 - 0.20 K/mcL LAB HEMETOLOGY METHOD 06/29/2024 10:26 AM [facility] Immature Granulocytes Absolute 0.06(H) 0.00 - 0.03 K/mcL LAB HEMETOLOGY METHOD 06/29/2024 10:26 AM EST [facility] Blood Venous blood specimen / Unknown Venipuncture / Unknown 06/29/2024 5:48 AM EST 06/29/2024 8:27 AM EST Chris Barlow MD LAB BLOOD ORDERABLES Final Resu lt Performing Organization Address City/[facility]/ZIP Co de Phone Number [facility] [address] [place] [address], [place] [phone] * Magnesium (06/29/2024 5:48 AM EST) [facility] Magnesium 2.2 1.9 - 2.6 mg/dL LAB CHEMISTRY METHOD 06/29/2024 10:10 AM EST [facility] Blood Venous blood specimen / Unknown Venipuncture / Unknown 06/29/2024 5:48 AM EST 06/29/2024 8:27 AM EST us Crhis Barlow MD LAB BLOOD ORDERABLES Final Resu lt Performing Organization Address [facility]/ZIP Co de Phone Number [facility] [address] [place] [address], [place] [phone] * (ABNORMAL) Comprehensive metabolic panel (06/29/2024 5:48 AM EST) [facility] Sodium 134 133 - 145 mmol/L LAB CHEMISTRY METHOD 06/29/2024 10:10 AM EST [facility] Potassium 3.7 3.5 - 5.5 mmol/L LAB CHEMISTRY METHOD 06/29/2024 10:10 AM EST [facility] Chloride 100 96 - 110 mmol/L LAB CHEMISTRY METHOD 06/29/2024 10:10 AM EST [facility] CO2 29 21 - 32 mmol/L LAB CHEMISTRY METHOD 06/29/2024 10:10 AM EST [facility] Anion Gap 5 3 - 11 LAB CHEMISTRY METHOD 06/29/2024 10:10 AM [facility] Glucose 86 70 - 100 mg/dL LAB CHEMISTRY METHOD 06/29/2024 10:10 AM [facility] BUN 18 5 - 25 mg/dL LAB CHEMISTRY METHOD 06/29/2024 10:10 AM [facility] Creatinine 0.66 0.50 - 1.10 mg/dL LAB CHEMISTRY METHOD 06/29/2024 10:10 AM [facility] eGFR 88 >=60 mL/min/1. 73m2 LAB CHEMISTRY METHOD 06/29/2024 10:10 AM [facility] Comment:Calculation based on the??Chronic Kidney Disease Epidemiology Collaboration (CKD-EPI) equation refit??without adjustment for race. BUN/Creatinine Ratio 27.3 LAB CHEMISTRY METHOD 06/29/2024 10:10 AM [facility] Calcium 8.9 8.5 - 10.5 mg/dL LAB CHEMISTRY METHOD 06/29/2024 10:10 AM [facility] AST (SGOT) 36 10 - 42 unit/L LAB CHEMISTRY METHOD 06/29/2024 10:10 AM [facility] ALT (SGPT) 69(H) 10 - 60 unit/L LAB CHEMISTRY METHOD 06/29/2024 10:10 AM [facility] Alkaline Phosphatase 141(H) 42 - 121 unit/L LAB CHEMISTRY METHOD 06/29/2024 10:10 AM [facility] Total Protein 5.9(L) 6.0 - 8.0 g/dL LAB CHEMISTRY METHOD 06/29/2024 10:10 AM [facility] Albumin 3.2 3.2 - 5.0 g/dL LAB CHEMISTRY METHOD 06/29/2024 10:10 AM [facility] Total Bilirubin 0.8 0.0 - 1.4 mg/dL LAB CHEMISTRY METHOD 06/29/2024 10:10 AM EST [facility] Blood Venous blood specimen / Unknown Venipuncture / Unknown 06/29/2024 5:48 AM EST 06/29/2024 8:27 AM EST us Chris Barlow MD LAB BLOOD ORDERABLES Final Resu lt [facility] [address] [place] [address], documented in this encounter Visit Diagnoses Diagnosis Encounter for other general examination documented in this encounter Additional Health Concerns Infection Onset Date Last Indicated Resolved Time Respiratory Rule-Out 07/26/2024 07/26/2024 025 3:02 AM EST COVID-19 Rule-Out 07/26/2024 07/26/2024 07/26/2024 3:02 AM EST documented as of this encounter Care Teams Senior Informatica Etl Developer Relationship Specialty Start Date End Date Leonardo García MD [address] [place] [id number] PCP - General Internal Medicine 06/30/24 documented as of this encounter
--- OUTSIDE RECORDS SUMMARY | 2024-08-04 06:31 | XMS_ITS | Clinical Summary ---
Author Organization [facility] Address [address] [place] [address] Care Team Providers Care Poly Operator Name Role Phone Ashleigh Grullon MD Primary Care Provider [phone] Allergies Active Allergy Reactions Criticality Noted Date Comments Ampicillin Anaphylaxis High 08/15/2017 Chloramphenicol Anaphylaxis High 08/15/2017 Sparkill 08/30/2017 Tape Rash Medium 08/30/2017 Paper tape, [...] MORNING AND IN THE EVENING 0 Active [place]-3 Fatty Acids (OMEGA-3 FISH OIL PO) Take [...] Immunizations Name Administration Dates Next Due Covid-19 (Wooop) Dilution Required 05/11/2021,0 08/04/2020,07/14/2020 Social History Tobacco [...] this topic Medical Devices Implanted Type Area Diagnostic Imaging Manager Device Identifier Shelf Expiration Date Model / Serial / Lot Screw 6.5 X 45.Mm - [id number] - [id number] Implanted:Qty : 1 on 08/30/2017 by Emeka Lopez MD at [facility] Posterior: Spine Lumbar [employer] 1067.1645 / / 6.5 X 50mm Screw Modular Creo Amp - 069228 - [id number] Implanted:Qty : 3 on 08/30/2017 by Emeka Lopez MD at [facility] Posterior: Spine Lumbar [employer] 1067.1650 / / 5.5 Polyaxial Tulip Threaded Creo Amp - [id number] - [id number] Implanted:Qty : 4 on 08/30/2017 by Emeka Lopez MD at [facility] Posterior: Spine Lumbar [employer] 1119.0110 / / 5.5 Threaded Locking Cap Creo - [id number] - [id number] Implanted:Qty : 4 on 08/30/2017 by Emeka Lopez MD at [facility] Posterior: Spine Lumbar [facility] 1119.0010 / / 5.5mm Curved Gurpreet Titanium Alloy 40mm Length - [id number] - [id number] Implanted:Qty : 2 on 08/30/2017 by Emeka Lopez MD at [facility] Posterior: Spine Lumbar [facility] 1119.7040 / / Lp Hex Screw 6.5x20mm Stry-Howm 5197-7403-900 457 - [id number] Implanted:Qty : 1 on 02/16/2022 by Ottoniel Wells MD at [facility] Left: Hip [employer] [id number] 11/23/2026 5533-1308 / / [id number] Hip Insrt X3 Trident 0d 36mm E Stry-Howm 158-38-32n-20 0921 - [id number] Implanted:Qty : 1 on 02/16/2022 by Ottoniel Wells MD at [facility] Left: Hip [employer] [id number] 09/24/2025 623-10-36 E / / [id number] Hip Stm Parveen 127 #2 30 124 Stry-Howm 0130-6007a-22 7932 - [id number] Implanted:Qty : 1 on 02/16/2022 by Ottoniel Wells MD at [facility] Left: Hip [employer] [id number] 10/21/2026 4221-5096 D / / [id number] Plug Bone Sm Stry-Howm 4318-5-158-14 3871 - [id number] Implanted:Qty : 1 on 02/16/2022 by Ottoniel Wells MD at [facility] Left: Hip [employer] [id number] 11/16/2026 6215-5-00 1 / / [id number] E Hip Dist Spacer Ostnc Univ #8 Stry-Howm 7951-3957-400 590 - [id number] Implanted:Qty : 1 on 02/16/2022 by Ottoniel Wells MD at [facility] Left: Hip [employer] [id number] 01/19/2027 6878-8812 / / [id number] Hip Head Delta [employer]ox 36mm-2.5 Stry-Howm 6112-2-475-54 9191 - [id number] Implanted:Qty : 1 on 02/16/2022 by Ottoniel Wells MD at [facility] Left: Hip [employer] [id number] 11/10/2026 6570-0-43 6 / / [id number] Cement Bone Surg Simplex Radiopq Stry-Howm 3959-3-580-11 4092 - [id number] Implanted:Qty : 1 on 02/16/2022 by Ottoniel Wells MD at [facility] Left: Hip [employer] [id number] 05/03/2023 6190-06-04 0 / / [id number] Cement Bone Surg Simplex Radiopq Stry-Howm 9473-1-650-11 4092 - [id number] Implanted:Qty : 1 on 02/16/2022 by Ottoniel Wells MD at [facility] Left: Hip [employer] [facility] [id number] 05/03/2023 6190-06-04 0 / / [id number] Lp Hex Screw 6.5x30mm Stry-Howm 2423-8136-664 478 - [id number] Implanted:Qty : 1 on 02/16/2022 by Ottoniel Wells MD at [facility] Left: Hip [employer] [id number] 12/15/2026 7242-5884 / / [id number] Tritanium Cluster Hole Shell 52mm Stry-Howm 087-70-16g-77 0473 - [id number] Implanted:Qty : 1 on 02/16/2022 by Ottoniel Wells MD at [facility] Left: Hip [employer] [facility] [id number] 09/28/2026 702-04-52 E / / [id number] Advance Directives For more information, please contact: [phone] Documents on File Type Date Recorded Patient Charge Auditor Expl anation Advance Directive and Living Will [...] way: discussion with patient . Care Teams Poly Operator Relationship Specialty Start Date End Date Cichon, Ashleigh, MD [address] [place] [address] PCP - General Hide And Skin Processing Worker 01/02/22
--- OUTSIDE RECORDS SUMMARY | 2024-08-04 06:31 | XMS_ITS | Encounter Summary ---
Author Organization [facility] Address [address] [place] [address] Care Team Providers Care Director Energy Name Role Phone Leonardo García MD Primary Care Provider [phone] Encounter Details Date Type Department Care Team (Late st Contact Info) Description 06/21/2024 Lab Requisition [facility] - Main Lab [address] [facility] [place] [address] Chris Barlow MD [address] [place] [address] Encounter for other general examination Social History [...] auto differential (06/21/2024 7:13 AM EST) [facility] WBC 8.0 4.8 - 10.8 K/mcL LAB HEMETOLOGY METHOD 06/21/2024 10:55 AM [facility] RBC 3.50(L) 3.80 - 4.80 M/mcL LAB HEMETOLOGY METHOD 06/21/2024 10:55 AM [facility] Hemoglobin 10.5(L) 11.5 - 16.0 g/dL LAB HEMETOLOGY METHOD 06/21/2024 10:55 AM [facility] Hematocrit 30.6(L) 35.0 - 47.0 % LAB HEMETOLOGY METHOD 06/21/2024 10:55 AM [facility] MCV 88.7 79.0 - 98.0 FL LAB HEMETOLOGY METHOD 06/21/2024 10:55 AM [facility] MCH 30.4 27.0 - 32.0 pcg LAB HEMETOLOGY METHOD 06/21/2024 10:55 AM [facility] MCHC 34.3 32.0 - 37.0 g/dL LAB HEMETOLOGY METHOD 06/21/2024 10:55 AM [facility] RDW 13.4 11.0 - 15.0 % LAB HEMETOLOGY METHOD 06/21/2024 10:55 AM [facility] Platelets 257 130 - 400 K/mcL LAB HEMETOLOGY METHOD 06/21/2024 10:55 AM [facility] MPV 9.7 7.0 - 11.0 FL LAB HEMETOLOGY METHOD 06/21/2024 10:55 AM [facility] NRBC 0.0 <1.0 % LAB HEMETOLOGY METHOD 06/21/2024 10:55 AM [facility] NRBC Absolute 0.00 <0.10 K/mcL LAB HEMETOLOGY METHOD 06/21/2024 10:55 AM [facility] Neutrophils Relative 73.2 % LAB HEMETOLOGY METHOD 06/21/2024 10:55 AM [facility] Lymphocytes Relative 16.0 % LAB HEMETOLOGY METHOD 06/21/2024 10:55 AM [facility] Monocytes Relative 7.3 % LAB HEMETOLOGY METHOD 06/21/2024 10:55 AM [facility] Eosinophils Relative 2.3 % LAB HEMETOLOGY METHOD 06/21/2024 10:55 AM [facility] Basophils Relative 0.6 % LAB HEMETOLOGY METHOD 06/21/2024 10:55 AM [facility] Immature Granulocytes Relative 0.6 % LAB HEMETOLOGY METHOD 06/21/2024 10:55 AM [facility] Neutrophils Absolute 5.84 1.50 - 7.00 K/mcL LAB HEMETOLOGY METHOD 06/21/2024 10:55 AM [facility] Lymphocytes Absolute 1.28 1.00 - 5.00 K/mcL LAB HEMETOLOGY METHOD 06/21/2024 10:55 AM [facility] Monocytes Absolute 0.58 0.20 - 1.00 K/mcL LAB HEMETOLOGY METHOD 06/21/2024 10:55 AM [facility] Eosinophils Absolute 0.18 0.00 - 0.50 K/mcL LAB HEMETOLOGY METHOD 06/21/2024 10:55 AM [facility] Basophils Absolute 0.05 0.00 - 0.20 K/mcL LAB HEMETOLOGY METHOD 06/21/2024 10:55 AM [facility] Immature Granulocytes Absolute 0.05(H) 0.00 - 0.03 K/mcL LAB HEMETOLOGY METHOD 06/21/2024 10:55 AM EST [facility] Blood Venous blood specimen / Unknown Venipuncture / Unknown 06/21/2024 7:13 AM EST 06/21/2024 10:03 AM EST us Chris Barlow MD LAB BLOOD ORDERABLES Final Resu lt Performing Organization Address City/[facility]/ZIP Co de Phone Number [facility] [address] [place] [address], [place] [phone] * (ABNORMAL) Magnesium (06/21/2024 7:13 AM EST) Magnesium 1.7(L) 1.9 - 2.6 mg/dL LAB CHEMISTRY METHOD 06/21/2024 11:21 AM EST [facility] Blood Venous blood specimen / Unknown Venipuncture / Unknown 06/21/2024 7:13 AM EST 06/21/2024 10:03 AM EST us Chris Barlow MD LAB BLOOD ORDERABLES Final Resu lt Performing Organization Address [facility]/ZIP Co de Phone Number [facility] [address] [place] [address], [place] [phone] * (ABNORMAL) Comprehensive metabolic panel (06/21/2024 7:13 AM EST) Sodium 138 133 - 145 mmol/L LAB CHEMISTRY METHOD 06/21/2024 11:50 AM EST [facility] Potassium 2.8(LL) 3.5 - 5.5 mmol/L LAB CHEMISTRY METHOD 06/21/2024 11:50 AM EST [facility] Chloride 103 96 - 110 mmol/L LAB CHEMISTRY METHOD 06/21/2024 11:50 AM EST [facility] CO2 30 21 - 32 mmol/L LAB CHEMISTRY METHOD 06/21/2024 11:50 AM [facility] Anion Gap 5 3 - 11 LAB CHEMISTRY METHOD 06/21/2024 11:50 AM [facility] Glucose 109(H) 70 - 100 mg/dL LAB CHEMISTRY METHOD 06/21/2024 11:50 AM [facility] BUN 8 5 - 25 mg/dL LAB CHEMISTRY METHOD 06/21/2024 11:50 AM [facility] Creatinine 0.62 0.50 - 1.10 mg/dL LAB CHEMISTRY METHOD 06/21/2024 11:50 AM [facility] eGFR 89 >=60 mL/min/1. 73m2 LAB CHEMISTRY METHOD 06/21/2024 11:50 AM [facility] Comment:Calculation based on the??Chronic Kidney Disease Epidemiology Collaboration (CKD-EPI) equation refit??without adjustment for race. BUN/Creatinine Ratio 12.9 LAB CHEMISTRY METHOD 06/21/2024 11:50 AM [facility] Calcium 8.4(L) 8.5 - 10.5 mg/dL LAB CHEMISTRY METHOD 06/21/2024 11:50 AM [facility] AST (SGOT) 71(H) 10 - 42 unit/L LAB CHEMISTRY METHOD 06/21/2024 11:50 AM [facility] ALT (SGPT) 46 10 - 60 unit/L LAB CHEMISTRY METHOD 06/21/2024 11:50 AM [facility] Alkaline Phosphatase 95 42 - 121 unit/L LAB CHEMISTRY METHOD 06/21/2024 11:50 AM [facility] Total Protein 5.6(L) 6.0 - 8.0 g/dL LAB CHEMISTRY METHOD 06/21/2024 11:50 AM [facility] Albumin 2.9(L) 3.2 - 5.0 g/dL LAB CHEMISTRY METHOD 06/21/2024 11:50 AM [facility] Total Bilirubin 0.7 0.0 - 1.4 mg/dL LAB CHEMISTRY METHOD 06/21/2024 11:50 AM EST [facility] Blood Venous blood specimen / Unknown Venipuncture / Unknown 06/21/2024 7:13 AM EST 06/21/2024 10:03 AM EST us Chris Barlow MD LAB BLOOD ORDERABLES Final Resu lt [facility] [address] [place] [address], documented in this encounter Visit Diagnoses Diagnosis Encounter for other general examination documented in this encounter Additional Health Concerns Infection Onset Date Last Indicated Resolved Time Respiratory Rule-Out 07/26/2024 07/26/2024 025 3:02 AM EST COVID-19 Rule-Out 07/26/2024 07/26/2024 07/26/2024 3:02 AM EST documented as of this encounter Care Teams Director Energy Relationship Specialty Start Date End Date Leonardo García MD [address] [place] [id number] PCP - General Internal Medicine 06/30/24 documented as of this encounter
--- OUTSIDE RECORDS SUMMARY | 2024-08-04 06:31 | XMS_ITS | Clinical Summary ---
Author Organization [facility] Address [address] [place] [address] Care Team Providers Care Bulb Packer Name Role Phone Unavailable Primary Care Provider [...]
--- OUTSIDE RECORDS SUMMARY | 2024-08-04 06:31 | XMS_ITS | Encounter Summary ---
Author Organization [facility] Address [address] [place] [phone] Care Team Providers Care Inseamer Name Role Phone Unavailable Primary Care Provider Unavailabl e Encounter Details Date Type Department Care Team (Late st Contact Info) Description 03/17/2020 Lab Requisition [facility] [address] [place] [address] Boo Milian PA-C [address] [place] [id number] Encounter for laboratory testing for COVID-19 virus [...] DETECTED Not Detected 03/18/2020 5:59 PM EDT [facility] Comment: ADDITIONAL INFORMATION The SUKUMAR COVID-19 RT-PCR Assay is Real-Time Reverse Potato Chip Frier Polymerase Chain Reaction (director industrial relations-PCR) for the in vitro qualitative detection of three SARS-Cov-2 target sequences unique to the coronavirus disease 2019 (COVID-19). This is an Emergency Use Authorization (EUA) in vitro diagnostic (IVD) test that has been modified to include the Rollstream automated liquid handler. Its analytical performance characteristics have been determined by the crayon molding machine operator and verified by [facility] in a manner consistent with CLIA [...] at the following links: For Healthcare Providers: https://www.fda.gov/media/272445/download For Patients: https://www.fda.gov/media/718848/download TEST LIMITATIONS Positive results are indicative of [...] system. For further details refer to the [employer] TaqPath COVID-19 Combo Kit EUA submission (https://www.TempMine.gov/media/749437/download). ----- Test performed by [facility], [address] [place], [place] [address] CLIA# [id number] ?[id number] ? Antoine Shah M.D., Ph.D., [facility], Clinical Pharmacy Account Director Microbiology Nasopharyngeal swab / Unknown 03/17/2020 2:45 PM EDT 03/17/2020 2:45 PM EDT Narrative [facility] - 03/18/2020 5:59 PM EDT Performed at [facility], [address], [place], [place] Lic [address], CLIA [id number] Boo Milian PA-C MICROBIOLOGY - NERAL ORDERABLES [facility] [address] [place] [address] documented in this encounter Visit Diagnoses Diagnosis Encounter for laboratory testing for COVID-19 virus documented in this encounter
--- OUTSIDE RECORDS SUMMARY | 2024-08-04 06:31 | XMS_ITS | Data Portability ---
Author Organization [facility] Home Service Address [address] [place] [address] Assessment Encounter Date Assessment Date Assessment LastModified [...] None recorded. Lab lipid panel, blood 2020 [facility], [address] [place] [address], [place], [address], 13:17:16 CMP, serum or plasma 2020 [facility], [address] [place] [address], [place], [address], 13:17:16 CBC w/ auto diff 2020 [facility], [address] [place] [address], [place], [address], 1 13:17:16 CMP, serum or plasma 2019 [facility], [address] [place] [address], [place], [address], 0 15:24:12 CBC w/ auto diff 2019 [facility], [address] [place] [address], [place], [address], 0 15:24:12 CMP, serum or plasma 2019 VON Not available 0 16:01:10 Referral None recorded. Procedures None recorded. Surgeries None recorded. Imaging None recorded. Medication Orders celecoxib 200 mg capsule [address] [facility]90288, [address], [place], [id number], 2 11:37:31 metronidaz ole 0.75 % topical cream 2021 [facility] #79644, [address], [place], [id number], 2 11:29:27 hydrochlor othiazide 25 mg tablet [address] [facility] #94687, [address], [place], [id number], 2 11:31:03 hydrochlor othiazide 25 mg tablet 2019 [facility] #43679, [address], [place], [id number], 0 10:39:17 Patient TargetsNo targets recorded. Patient Instructions Encounter Date Encounter Id Patient Instructions Last Modified By Organization Details Last Modified Time 03/12/2020 [id number] rhythm strip, EKG* VON Not available 03/12/2020 17:29:18 Reason for Referral None Reported. Results Created Date Observation Date Name Description Value Unit Range Abnormal Flag Note LastModifiedBy Organization Detail LastModifiedTime 03/12/20 20 03/12/2020 rhyth m strip , EKG* No observ ation record ed. [facility] [address] [facility], [place], [address], 03/16/2020 09:55:12 09/02/19 21 08/31/2020 MAMMO , scree andres, digit al, bilat eral No observ ation record ed. [address] [place], [address], 09/01/2020 14:06:45 01/04/20 21 01/03/2021 XR, knee No observ ation record ed. [facility] [address] [place], [address], 01/03/2021 16:03:47 09/06/19 22 09/02/2021 MAMMO , scree andres, digit al, bilat eral No observ ation record ed. [address] [place], [address], 09/05/2021 12:30:19 Result Notes None recorded. Problems Name Problem SNOMED Code Status Onset Date Resolution Date Notes Provider Name and Address Organization Details Recorded Time Essential hypertensi on 62518891 Active 2017 Not Available [facility] 0 11:57:35 Hyperchole sterolemia 19809325 Active 2017 Not Available [facility] 0 11:57:35 Gastric reflux 889494027 Active 2017 Not Available [facility] 0 11:57:35 Degenerati on of interverte bral disc 00543097 Active 2017 Not Available [facility] 0 11:57:35 Insomnia 769966924 Active 2018 Not Available [facility] 0 11:57:35 Kamran 550689190 Active [address] [place], [address], [facility] 2 11:27:44 Problem Notes None recorded. Procedures Surgical History Date Name Laterality Status Provider Name and Address Organization Details Recorded Time 018 Most Recent Mammogram completed Hamida Pinedo [facility] 05/06/2019 09:57:25 018 laminectomy completed Brigette Cates NP, S [address] [place] [address], [address], [facility] 05/01/2018 14:57:46 014 Colonoscopy completed [facility] 04/30/2018 14:53:24 Cataract Surgery completed [facility] 04/30/2018 14:51:58 complete repair of rotator cuff completed [facility] 04/30/2018 14:52:29 Appendectomy completed Brigette grullon NP, S [address] [place] [address], [address], [facility] 04/30/2018 16:37:33 tonsillectomy completed Brigette menendez NP, [address] [place] [address], [address], [facility] 04/30/2018 16:38:54 Imaging Results Imaging Date Name Status LastModified by Organiz ation Details LastModified Time 03/12/2020 rhythm strip, EKG* [facility] [address] [facility], [place], [address], 03/16/2020 09:55:12 08/31/2020 MAMMO, screening, digital, bilateral completed rtba [facility] [address] [place] [address] [place], [address], 09/01/2020 14:06:45 01/03/2021 XR, knee completed rtryba [facility] [address] [facility], [place], [address], 01/03/2021 16:03:47 09/02/2021 MAMMO, screening, digital, bilateral completed rtryba [facility] [address] [place], [address], 09/05/2021 12:30:19 Procedure Notes None recorded. Medical Equipment None Reported. Allergies Allergen ID Allergen Name Allergen Category Reaction Reaction Severity Criticality Documentation Date Start Date Code Code System Note Provider Name and Address Organization Details Recorded Time 2553 ampicilli n medicatio n Not available Not available Not available 04/30/2018 733 RxNorm Claire valencia [facility] Internal [facility] 8 14:43:03 2554 tetracycl ine medicatio n Not available Not available Not available 04/30/2018 36167 RxNorm Claire valencia [facility] 8 14:43:18 2555 Chloromyc etin medicatio n Not available Not available Not available 04/30/2018 52940 8 RxNorm Claire Tovar [facility] Internal [facility] 8 14:51:28 3665 adhesive tape environme nt,medica tion rash Not available Not available 06/10/2019 85366 UNK Hamida Mahmoodaugustine [facility] Medicine 0 10:05:05 Medications Name [...] completed Not Available Not Available Not Available Drury 3 02/16 completed Not Available Not Available [...] Updated DateTime 0 160.02 cm 32.8 kg/m2 02222.6 7 g 78 /min 98 % 98 % 148 mm[Hg] 92 mm[Hg] [facility] 0 10:29:24 Date Recorded Body height Body mass index (BMI) Body weight Heart rate Oxygen saturation Oxygen saturation in Arterial blood by Pulse oximetry Systolic blood pressure Diastolic blood pressure Provider Name and Address Organization Details Last Updated DateTime 0 160.02 cm 32.9 kg/m2 98333.8 2 g 78 /min 97 % 97 % 130 mm[Hg] 82 mm[Hg] [facility] 0 14:26:47 Date Recorded Body height Body mass index (BMI) Body weight Oxygen saturation Oxygen saturation in Arterial blood by Pulse oximetry Heart rate Systolic blood pressure Diastolic blood pressure Provider Name and Address Organization Details Last Updated DateTime 1 160.02 cm 33.4 kg/m2 35391.2 4 g 97 % 97 % 83 /min 158 mm[Hg] 90 mm[Hg] Lianna [facility] 1 11:28:23 Date Recorded Body height Oxygen saturation Oxygen saturation in Arterial blood by Pulse oximetry Heart rate Systolic blood pressure Diastolic blood pressure Provider Name and Address Organization Details Last Updated DateTime 2 160.02 cm 99 % 99 % 74 /min 158 mm[Hg] 90 mm[Hg] Lianna [facility] 2 11:16:48 Social History Question [...] virus, quadrivalent, preservative 8 completed Hamida valencia [facility] 03/12/2020 14:22:57 Influenza, split virus, quadrivalent, preservative 1 completed Lianna valencia [facility] 05/10/2021 08:45:09 COVID-19, mRNA, LNP-S, PF, 30 mcg/0.3 mL dose 1 completed Lianna valencia [facility] 05/10/2021 08:45:31 COVID-19, mRNA, LNP-S, PF, 30 mcg/0.3 mL dose 1 completed Lianna valencia [facility] 05/10/2021 08:45:46 Td(adult) unspecified formulation 9 completed Lianna valencia [facility] 05/10/2021 08:46:19 Influenza, split virus, quadrivalent, preservative 9 completed Hamida valencia [facility] 03/12/2020 14:22:57 Influenza, split virus, quadrivalent, preservative 0 completed Hamida valencia [facility] 03/12/2020 14:22:57 Past Encounters Encounter ID Performer Location Encounter Start Date Encounter Closed Date Diagnosis/Indication Diagnosis SNOMED-CT Code Diagnosis ICD10 Code Diagnosis Note [id number] Brigette Cates NP, S [facility] Internal [address],[place] [address] 05/01/2018 13:37:32 05/01/2018 15:16:02 Essential hypertension 05301313 I10 Degenerati on of intervertebral disc 70905072 M51.9 S/P laminectom y Hypercholesterolemia 136 55118 E78.00 Decreased hearing 288134 [address] H91.[address] [facility] Medicine [address] [facility], [place] [address] 11/01/2018 11:36:08 11/01/2018 12:10:37 Essential hypertension 11518416 I10 stable Degenerati on of intervertebral disc 97667851 M51.9 S/P laminectom y Hypercholesterolemia 136 07740 E78.00 taking lovastatin every other day - would really like to get off the med discussed diet for weight loss Insomnia 294837229 G47.0 0 takes a half at bedtime to help her sleep lots of stress Body mass index 30+ - obesity 850528357 Z68.33 discussed diet strategies cutting out sugar [...] to have water and tea while fasting [id number] [facility] [address] [facility],[place] [address] 06/10/2019 09:46:55 06/10/2019 10:42:39 Essential hypertension 14878669 I10 mildly elevated d/c hctz start lisinopril 10 mg Degenerati on of intervertebral disc 70983326 M51.9 S/P laminectom y Hypercholesterolemia 136 70785 E78.00 taking lovastatin every other day - would really like to get off the med discussed diet for weight loss Insomnia 366823426 G47.0 0 takes a half at bedtime to help her sleep as needed lots of stress Body mass index 30+ - obesity 337379042 Z68.33 has lost about 10 lbs! has cut back her sugar intake due to her high bs last time Gastric reflux 043731214 K21.9 Hearing loss 55502556 H9 1.93 Advance care planning 71 8365359 Z71.89 HCP - planning to re-do her will/trust and update HCP [id number] [facility] Internal Medicine [address] [facility], [place] [address] 02/17/2020 10:22:21 02/17/2020 11:04:06 Essential hypertension 65601294 I10 will switch off losartan as patient states it makes her thirsty and dry mouth the patient would like to go back on HTCZ, will just monitor her kidney function more frequently Adult heal th examination 807045734 Z00.00 BP is elevated has been since switch from HTCZ to losartan will switch back and just watch kidneys closer never had issue with kidney function before on it Active or passive immunization 329081714 Z23 has shingle shot, old one long time ago getting flu shot at pharmacy [id number] [facility] Internal Medicine [address] [facility] [address],[place] [address] 03/12/2020 14:10:33 03/12/2020 15:07:44 Pre-surgery evaluation 866750147 Z01.818 based on exam and history will clear for surgery pending labs and EKG will fax EKG separately after reading results [id number] [facility] Medicine [address] [facility] [address],[place] [address] 05/18/2020 08:44:16 05/18/2020 10:08:45 Essential hypertension 98907631 I10 BP has been stable on the HTCZ, no side effects CMP looks good as well Osteoarthritis 436177284 M19.90 improvemen t with surgery and PT, if need surgeon will clear out arthritis behind her patella [id number] [facility] Medicine [address] [facility] [address],[place] [address] 05/13/2021 10:59:04 05/13/2021 12:18:39 Essential hypertension 25649240 I10 BP has been stable with other checks and with recheck in office Hypercholesterolemia 136 44328 E78.2 will recheck labsdiscus sed stopping as she has muscle aches with it constantly [id number] [facility] Medicine [address] [facility] [address],[place] [address] 09/07/2021 11:09:39 09/12/2021 09:03:07 Hypercholesterolemia 21525055 E78.2 will recheck labsdiscus sed stopping as she has muscle aches with it constantly Essential hypertension 15707872 I10 BP has been stable with other checks and with recheck in office Degenerati on of intervertebral disc 37839418 M51.06 seeing PT for the next 6 weeks Insomnia 139409058 G47.0 0 stable Rosacea 274868184 L71.8 will trial a course of metronidaz [...] 02/17/2020 2 [employer] Crystal Holly [id number] Crystal [place] 02/17/2020 1 MEDICARE [place]: [facility] Crystal G Holly [id number] Crystal Holly 03/12/2020 2 [employer] Crystal Clintwood [id number] Crystal Clintwood 03/12/2020 1 [place]: [facility] Crystal G Holly [id number] Crystal Holly 05/18/2020 2 [employer] Crystal Clintwood [id number] Crystal Holly 05/18/2020 1 [place]: [facility] Crystal G Clintwood [id number] Crystal Holly 05/13/2021 2 [employer] Crystal Holly [id number] Crystal Clintwood 05/13/2021 1 [facility] Crystal G Holly [id number] Crystal Holly 09/07/2021 2 [employer] Crystal Holly [id number] Crystal Holly 09/07/2021 1 [facility] Crystal G Clintwood [id number] Crystal Holly Notes Date Note Type Note [...] good lighting in the home DICKSON STONE [address] [place] [address], [address], [facility] 02/17/2020 10:47:42 0 text/html Pre-OpReported bypatient.Surgery to be Performed:left knee arthroscopy Dr. [facility] Risk Factorsno cognitive impairment; no functional [...] Support:adequate assistance at home [address] [address] [place], [address], [facility] 03/12/2020 15:56:29 0 text/html [...] sore throat, no fatigue [address]SON STONE [address] [place], [address], [facility] 05/18/2020 10:08:45 1 text/html [...] to her side effects [address]ICKSON STONE [address] [place], [address], [facility] 05/13/2021 11:43:58 2 text/html [...] questions and concerns answered today [facility]ICKSON STONE [address] [place] [address], [place], [address], [facility] 09/07/2021 11:39:36 OBGyn Episode No OBEpisode recorded.
--- OUTSIDE RECORDS SUMMARY | 2024-08-04 06:31 | XMS_ITS | Encounter Summary ---
Author Organization [facility] Address [address] [place] [address] Care Team Providers Care Travel Specialist Name Role Phone Leonardo García MD Primary Care Provider [phone] Encounter Details Date Type Department Care Team (Late st Contact Info) Description 07/07/2024 Lab Requisition [facility] - Main Lab [address] [facility] [place] [id number] Chris Barlow MD [address] [place] [address] Encounter for other general examination Social History [...] CBC auto differential (07/07/2024 6:34 AM EST) [facility] WBC 6.0 4.8 - 10.8 K/mcL LAB HEMETOLOGY METHOD 07/07/2024 10:40 AM [facility] RBC 3.20(L) 3.80 - 4.80 M/mcL LAB HEMETOLOGY METHOD 07/07/2024 10:40 AM [facility] Hemoglobin 10.1(L) 11.5 - 16.0 g/dL LAB HEMETOLOGY METHOD 07/07/2024 10:40 AM [facility] Hematocrit 30.7(L) 35.0 - 47.0 % LAB HEMETOLOGY METHOD 07/07/2024 10:40 AM [facility] MCV 94.8 79.0 - 98.0 FL LAB HEMETOLOGY METHOD 07/07/2024 10:40 AM [facility] MCH 31.2 27.0 - 32.0 pcg LAB HEMETOLOGY METHOD 07/07/2024 10:40 AM [facility] MCHC 32.9 32.0 - 37.0 g/dL LAB HEMETOLOGY METHOD 07/07/2024 10:40 AM [facility] RDW 14.2 11.0 - 15.0 % LAB HEMETOLOGY METHOD 07/07/2024 10:40 AM [facility] Platelets 415(H) 130 - 400 K/mcL LAB HEMETOLOGY METHOD 07/07/2024 10:40 AM [facility] MPV 9.2 7.0 - 11.0 FL LAB HEMETOLOGY METHOD 07/07/2024 10:40 AM [facility] NRBC 0.0 <1.0 % LAB HEMETOLOGY METHOD 07/07/2024 10:40 AM [facility] NRBC Absolute 0.00 <0.10 K/mcL LAB HEMETOLOGY METHOD 07/07/2024 10:40 AM [facility] Neutrophils Relative 57.2 % LAB HEMETOLOGY METHOD 07/07/2024 10:40 AM [facility] Lymphocytes Relative 25.4 % LAB HEMETOLOGY METHOD 07/07/2024 10:40 AM [facility] Monocytes Relative 12.5 % LAB HEMETOLOGY METHOD 07/07/2024 10:40 AM [facility] Eosinophils Relative 3.8 % LAB HEMETOLOGY METHOD 07/07/2024 10:40 AM [facility] Basophils Relative 0.8 % LAB HEMETOLOGY METHOD 07/07/2024 10:40 AM [facility] Immature Granulocytes Relative 0.3 % LAB HEMETOLOGY METHOD 07/07/2024 10:40 AM [facility] Neutrophils Absolute 3.42 1.50 - 7.00 K/mcL LAB HEMETOLOGY METHOD 07/07/2024 10:40 AM [facility] Lymphocytes Absolute 1.52 1.00 - 5.00 K/mcL LAB HEMETOLOGY METHOD 07/07/2024 10:40 AM [facility] Monocytes Absolute 0.75 0.20 - 1.00 K/mcL LAB HEMETOLOGY METHOD 07/07/2024 10:40 AM [facility] Eosinophils Absolute 0.23 0.00 - 0.50 K/mcL LAB HEMETOLOGY METHOD 07/07/2024 10:40 AM [facility] Basophils Absolute 0.05 0.00 - 0.20 K/mcL LAB HEMETOLOGY METHOD 07/07/2024 10:40 AM [facility] Immature Granulocytes Absolute 0.02 0.00 - 0.03 K/mcL LAB HEMETOLOGY METHOD 07/07/2024 10:40 AM EST [facility] Blood Venous blood specimen / Unknown Venipuncture / Unknown 07/07/2024 6:34 AM EST 07/07/2024 9:05 AM EST us Chris Barlow MD LAB BLOOD ORDERABLES Final Resu lt [facility] [address] [place] [address], [place] [phone] * Basic metabolic panel (07/07/2024 6:34 AM EST) Sodium 135 133 - 145 mmol/L LAB CHEMISTRY METHOD 07/07/2024 11:20 AM [facility] Potassium 4.2 3.5 - 5.5 mmol/L LAB CHEMISTRY METHOD 07/07/2024 11:20 AM [facility] Chloride 100 96 - 110 mmol/L LAB CHEMISTRY METHOD 07/07/2024 11:20 AM [facility] CO2 28 21 - 32 mmol/L LAB CHEMISTRY METHOD 07/07/2024 11:20 AM [facility] Anion Gap 7 3 - 11 LAB CHEMISTRY METHOD 07/07/2024 11:20 AM [facility] Glucose 92 70 - 100 mg/dL LAB CHEMISTRY METHOD 07/07/2024 11:20 AM [facility] BUN 19 5 - 25 mg/dL LAB CHEMISTRY METHOD 07/07/2024 11:20 AM [facility] Creatinine 0.70 0.50 - 1.10 mg/dL LAB CHEMISTRY METHOD 07/07/2024 11:20 AM [facility] eGFR 86 >=60 mL/min/1. 73m2 LAB CHEMISTRY METHOD 07/07/2024 11:20 AM [facility] Comment:Calculation based on the??Chronic Kidney Disease Epidemiology Collaboration (CKD-EPI) equation refit??without adjustment for race. BUN/Creatinine Ratio 27.1 LAB CHEMISTRY METHOD 07/07/2024 11:20 AM EST [facility] Calcium 9.0 8.5 - 10.5 mg/dL LAB CHEMISTRY METHOD 07/07/2024 11:20 AM EST [facility] Blood Venous blood specimen / Unknown Venipuncture / Unknown 07/07/2024 6:34 AM EST 07/07/2024 9:05 AM EST us Chris Barlow MD LAB BLOOD ORDERABLES Final Resu lt [facility] [address] [place] [address], documented in this encounter Visit Diagnoses Diagnosis Encounter for other general examination documented in this encounter Additional Health Concerns Infection Onset Date Last Indicated Resolved Time Respiratory Rule-Out 07/26/2024 07/26/2024 025 3:02 AM EST COVID-19 Rule-Out 07/26/2024 07/26/2024 07/26/2024 3:02 AM EST documented as of this encounter Care Teams Travel Specialist Relationship Specialty Start Date End Date Leonardo García MD [address] [place] [id number] PCP - General Internal Medicine 06/30/24 documented as of this encounter
--- OUTSIDE RECORDS SUMMARY | 2024-08-04 06:31 | XMS_ITS | Encounter Summary ---
Author Organization [facility] [place] [address] Care Team Providers Care Sign Out Clerk Name Role Phone Leonardo García MD Primary Care Provider [phone] Encounter Details Date Type Department Care Team (Late st Contact Info) Description 07/05/[address] [facility] - Main Lab 299 [facility] [place] [address] Chris Barlow MD [address] [place] [address] Encounter for other general examination Social History [...] CBC auto differential (07/05/2024 7:00 AM EST) [facility] Signature WBC 9.9 4.8 - 10.8 K/mcL LAB HEMETOLOGY METHOD 07/05/2024 11:42 AM [facility] RBC 3.60(L) 3.80 - 4.80 M/mcL LAB HEMETOLOGY METHOD 07/05/2024 11:42 AM [facility] Hemoglobin 10.7(L) 11.5 - 16.0 g/dL LAB HEMETOLOGY METHOD 07/05/2024 11:42 AM [facility] Hematocrit 32.8(L) 35.0 - 47.0 % LAB HEMETOLOGY METHOD 07/05/2024 11:42 AM [facility] MCV 92.1 79.0 - 98.0 FL LAB HEMETOLOGY METHOD 07/05/2024 11:42 AM [facility] MCH 30.1 27.0 - 32.0 pcg LAB HEMETOLOGY METHOD 07/05/2024 11:42 AM [facility] MCHC 32.6 32.0 - 37.0 g/dL LAB HEMETOLOGY METHOD 07/05/2024 11:42 AM [facility] RDW 14.2 11.0 - 15.0 % LAB HEMETOLOGY METHOD 07/05/2024 11:42 AM [facility] Platelets 439(H) 130 - 400 K/mcL LAB HEMETOLOGY METHOD 07/05/2024 11:42 AM [facility] MPV 8.9 7.0 - 11.0 FL LAB HEMETOLOGY METHOD 07/05/2024 11:42 AM [facility] NRBC 0.0 <1.0 % LAB HEMETOLOGY METHOD 07/05/2024 11:42 AM [facility] NRBC Absolute 0.00 <0.10 K/mcL LAB HEMETOLOGY METHOD 07/05/2024 11:42 AM [facility] Neutrophils Relative 71.2 % LAB HEMETOLOGY METHOD 07/05/2024 11:42 AM [facility] Lymphocytes Relative 16.3 % LAB HEMETOLOGY METHOD 07/05/2024 11:42 AM [facility] Monocytes Relative 10.4 % LAB HEMETOLOGY METHOD 07/05/2024 11:42 AM [facility] Eosinophils Relative 1.2 % LAB HEMETOLOGY METHOD 07/05/2024 11:42 AM [facility] Basophils Relative 0.4 % LAB HEMETOLOGY METHOD 07/05/2024 11:42 AM [facility] Immature Granulocytes Relative 0.5 % LAB HEMETOLOGY METHOD 07/05/2024 11:42 AM [facility] Neutrophils Absolute 7.06(H) 1.50 - 7.00 K/mcL LAB HEMETOLOGY METHOD 07/05/2024 11:42 AM [facility] Lymphocytes Absolute 1.62 1.00 - 5.00 K/mcL LAB HEMETOLOGY METHOD 07/05/2024 11:42 AM [facility] Monocytes Absolute 1.03(H) 0.20 - 1.00 K/mcL LAB HEMETOLOGY METHOD 07/05/2024 11:42 AM [facility] Eosinophils Absolute 0.12 0.00 - 0.50 K/mcL LAB HEMETOLOGY METHOD 07/05/2024 11:42 AM [facility] Basophils Absolute 0.04 0.00 - 0.20 K/mcL LAB HEMETOLOGY METHOD 07/05/2024 11:42 AM [facility] Immature Granulocytes Absolute 0.05(H) 0.00 - 0.03 K/mcL LAB HEMETOLOGY METHOD 07/05/2024 11:42 AM EST [facility] Blood Venous blood specimen / Unknown Venipuncture / Unknown 07/05/2024 7:00 AM EST 07/05/2024 10:39 AM EST Chris Barlow MD LAB BLOOD ORDERABLES Final Resu lt Performing Organization Address City/[facility]/ZIP Co de Phone Number [facility] [address] [place] [address], [place] [phone] * Magnesium (07/05/2024 7:00 AM EST) Pathologist [facility] Magnesium 2.4 1.9 - 2.6 mg/dL LAB CHEMISTRY METHOD 07/05/2024 12:15 PM EST [facility] Blood Venous blood specimen / Unknown Venipuncture / Unknown 07/05/2024 7:00 AM EST 07/05/2024 10:39 AM EST Chris Barlow MD LAB BLOOD ORDERABLES Final Resu lt Performing Organization Address [facility]/ZIP Co de Phone Number [facility] [address] [place] [address], [place] [phone] * (ABNORMAL) Comprehensive metabolic panel (07/05/2024 7:00 AM EST) Sodium 132(L) 133 - 145 mmol/L LAB CHEMISTRY METHOD 07/05/2024 12:14 PM EST [facility] Potassium 4.3 3.5 - 5.5 mmol/L LAB CHEMISTRY METHOD 07/05/2024 12:14 PM EST [facility] Chloride 98 96 - 110 mmol/L LAB CHEMISTRY METHOD 07/05/2024 12:14 PM EST [facility] CO2 28 21 - 32 mmol/L LAB CHEMISTRY METHOD 07/05/2024 12:14 PM [facility] Anion Gap 6 3 - 11 LAB CHEMISTRY METHOD 07/05/2024 12:14 PM [facility] Glucose 95 70 - 100 mg/dL LAB CHEMISTRY METHOD 07/05/2024 12:14 PM [facility] BUN 21 5 - 25 mg/dL LAB CHEMISTRY METHOD 07/05/2024 12:14 PM [facility] Creatinine 0.80 0.50 - 1.10 mg/dL LAB CHEMISTRY METHOD 07/05/2024 12:14 PM [facility] eGFR 74 >=60 mL/min/1. 73m2 LAB CHEMISTRY METHOD 07/05/2024 12:14 PM [facility] Comment:Calculation based on the??Chronic Kidney Disease Epidemiology Collaboration (CKD-EPI) equation refit??without adjustment for race. BUN/Creatinine Ratio 26.3 LAB CHEMISTRY METHOD 07/05/2024 12:14 PM [facility] Calcium 8.9 8.5 - 10.5 mg/dL LAB CHEMISTRY METHOD 07/05/2024 12:14 PM [facility] AST (SGOT) 20 10 - 42 unit/L LAB CHEMISTRY METHOD 07/05/2024 12:14 PM [facility] ALT (SGPT) 50 10 - 60 unit/L LAB CHEMISTRY METHOD 07/05/2024 12:14 PM [facility] Alkaline Phosphatase 203(H) 42 - 121 unit/L LAB CHEMISTRY METHOD 07/05/2024 12:14 PM [facility] Total Protein 6.1 6.0 - 8.0 g/dL LAB CHEMISTRY METHOD 07/05/2024 12:14 PM [facility] Albumin 3.5 3.2 - 5.0 g/dL LAB CHEMISTRY METHOD 07/05/2024 12:14 PM [facility] Total Bilirubin 0.9 0.0 - 1.4 mg/dL LAB CHEMISTRY METHOD 07/05/2024 12:14 PM EST [facility] Blood Venous blood specimen / Unknown Venipuncture / Unknown 07/05/2024 7:00 AM EST 07/05/2024 10:39 AM EST us Chris Barlow MD LAB BLOOD ORDERABLES Final Resu lt [facility] [address] [place] [address], documented in this encounter Visit Diagnoses Diagnosis Encounter for other general examination documented in this encounter Additional Health Concerns Infection Onset Date Last Indicated Resolved Time Respiratory Rule-Out 07/26/2024 07/26/2024 025 3:02 AM EST COVID-19 Rule-Out 07/26/2024 07/26/2024 07/26/2024 3:02 AM EST documented as of this encounter Care Teams Sign Out Clerk Relationship Specialty Start Date End Date Leonardo García MD [address] [place] [id number] PCP - General Internal Medicine 06/30/24 documented as of this encounter
--- OUTSIDE RECORDS SUMMARY | 2024-08-04 06:31 | XMS_ITS | Encounter Summary ---
Author Organization [facility] [place] [address] Care Team Providers Care Computer Typesetter Keyliner Name Role Phone Leonardo García MD Primary Care Provider [phone] Encounter Details Date Type Department Care Team (Late st Contact Info) Description 06/23/2024 Lab Requisition [facility] - Main Lab 299 [facility] [place] [address] Chris Barlow MD [address] [place] [address] Encounter for other general examination Social History [...] * Magnesium (06/23/2024 5:46 AM EST) Pathologist [facility] Magnesium 2.1 1.9 - 2.6 mg/dL LAB CHEMISTRY METHOD 06/23/2024 12:17 PM [facility] Blood Venous blood specimen / Unknown Venipuncture / Unknown 06/23/2024 5:46 AM EST 06/23/2024 10:54 AM EST us Chris Barlow MD LAB BLOOD ORDERABLES Final Resu lt [facility] [address] [place] [address], [place] [phone] * (ABNORMAL) Basic metabolic panel (06/23/2024 5:46 AM EST) [facility] Sodium 137 133 - 145 mmol/L LAB CHEMISTRY METHOD 06/23/2024 12:24 PM [facility] Potassium 3.7 3.5 - 5.5 mmol/L LAB CHEMISTRY METHOD 06/23/2024 12:24 PM [facility] Chloride 100 96 - 110 mmol/L LAB CHEMISTRY METHOD 06/23/2024 12:24 PM [facility] CO2 29 21 - 32 mmol/L LAB CHEMISTRY METHOD 06/23/2024 12:24 PM [facility] Anion Gap 8 3 - 11 LAB CHEMISTRY METHOD 06/23/2024 12:24 PM [facility] Glucose 106(H) 70 - 100 mg/dL LAB CHEMISTRY METHOD 06/23/2024 12:24 PM [facility] BUN 23 5 - 25 mg/dL LAB CHEMISTRY METHOD 06/23/2024 12:24 PM [facility] Creatinine 0.83 0.50 - 1.10 mg/dL LAB CHEMISTRY METHOD 06/23/2024 12:24 PM [facility] eGFR 70 >=60 mL/min/1. 73m2 LAB CHEMISTRY METHOD 06/23/2024 12:24 PM EST [facility] Comment:Calculation based on the??Chronic Kidney Disease Epidemiology Collaboration (CKD-EPI) equation refit??without adjustment for race. BUN/Creatinine Ratio 27.7 LAB CHEMISTRY METHOD 06/23/2024 12:24 PM [facility] Calcium 8.4(L) 8.5 - 10.5 mg/dL LAB CHEMISTRY METHOD 06/23/2024 12:24 PM [facility] Blood Venous blood specimen / Unknown Venipuncture / Unknown 06/23/2024 5:46 AM EST 06/23/2024 10:54 AM EST us Chris Barlow MD LAB BLOOD ORDERABLES Final Resu lt [facility] [address] [place] [address], documented in this encounter Visit Diagnoses Diagnosis Encounter for other general examination documented in this encounter Additional Health Concerns Infection Onset Date Last Indicated Resolved Time Respiratory Rule-Out 07/26/2024 07/26/2024 025 3:02 AM EST COVID-19 Rule-Out 07/26/2024 07/26/2024 07/26/2024 3:02 AM EST documented as of this encounter Care Teams Computer Typesetter Keyliner Relationship Specialty Start Date End Date Leonardo García MD [address] [place] [id number] PCP - General Internal Medicine 06/30/24 documented as of this encounter
--- OUTSIDE RECORDS SUMMARY | 2024-08-04 06:31 | XMS_ITS | Encounter Summary ---
Author Organization [facility] Address [address] [place] [address] Care Team Providers Care Nurse Staff Industrial Name Role Phone Leonardo García MD Primary Care Provider [phone] Encounter Details Date Type Department Care Team (Late st Contact Info) Description 07/06/2024 Lab Requisition [facility] - Main Lab 299 [facility] [place] [phone] Chris Barlow MD [address] [place] [phone] Encounter for other general examination Social History [...] Culture urine (07/06/2024 10:07 AM EST) Pathologist [facility] Culture, Urine >100,000 CFU/mL Escherichia coli(A) JUDIE 07/08/2024 8:28 AM EST [facility] Urine Urine specimen obtained [...] MICROBIOLOGY - GENERAL ORDE GONZALEZ Final Result [facility] [address] [place] [address], [place] [phone] * Jay urine culture tube (07/06/2024 10:07 AM EST) Extra Tube Hold for add-ons. 07/06/2024 4:01 PM [facility] Comment:Auto resulted. Urine Urine specimen obtained by clean catch procedure / Unknown 07/06/2024 10:07 AM EST 07/06/2024 2:09 PM EST us Chris Barlow MD LAB URINE ORDERABLES Final Resu lt [facility] [address] [place] [address], [place] [phone] * (ABNORMAL) Urinalysis with reflex microscopic and culture (07/06/2024 10:07 AM EST) [facility] Specific [place] Urine 1.022 1.003 - 1.030 LAB URINALYSIS - AUTOMATED METHOD 07/06/2024 3:05 PM [facility] pH, Urine 5.5 5.0 - 8.0 pH LAB URINALYSIS - AUTOMATED METHOD 07/06/2024 3:05 PM [facility] Leukocytes, Urine Large(A) Negative LAB URINALYSIS - AUTOMATED METHOD 07/06/2024 3:05 PM [facility] Nitrite, Urine Positive(A) Negative LAB URINALYSIS - AUTOMATED METHOD 07/06/2024 3:05 PM [facility] Protein, Urine Negative <=Trace mg/dL LAB URINALYSIS - AUTOMATED METHOD 07/06/2024 3:05 PM [facility] Glucose, Urine Negative Negative mg/dL LAB URINALYSIS - AUTOMATED METHOD 07/06/2024 3:05 PM [facility] Ketones, Urine Negative Negative mg/dL LAB URINALYSIS - AUTOMATED METHOD 07/06/2024 3:05 PM [facility] Urobilinogen , Urine 1.0 0.2 - 1.0 mg/dL LAB URINALYSIS - AUTOMATED METHOD 07/06/2024 3:05 PM EST [facility] Bilirubin, Urine Negative Negative LAB URINALYSIS - AUTOMATED METHOD 07/06/2024 3:05 PM EST [facility] Blood, Urine Trace(A) Negative LAB URINALYSIS - AUTOMATED METHOD 07/06/2024 3:05 PM EST [facility] Urine Urine specimen obtained by clean catch procedure / Unknown 07/06/2024 10:07 AM EST 07/06/2024 2:07 PM EST us Chris Barlow MD LAB URINE ORDERABLES Final Resu lt [facility] [address] [place] [address], documented in this encounter Visit Diagnoses Diagnosis Encounter for other general examination documented in this encounter Additional Health Concerns Infection Onset Date Last Indicated Resolved Time Respiratory Rule-Out 07/26/2024 07/26/2024 025 3:02 AM EST COVID-19 Rule-Out 07/26/2024 07/26/2024 07/26/2024 3:02 AM EST documented as of this encounter Care Teams Nurse Staff Industrial Relationship Specialty Start Date End Date Leonardo García MD [address] [place] [id number] PCP - General Internal Medicine 06/30/24 documented as of this encounter
[2024-08-04 06:46] LABS: Basophils Percent Auto 0.3 % (0-2); Eosinophils Absolute Auto 0.1 X10*3/uL (0.0-0.4); Eosinophils Percent Auto 1.8 % (0-4); Hematocrit 34.1 % (37.0-47.0); Hemoglobin 11.4 g/dl (12.0-16.0); Lymphocytes Absolute Auto 1.8 X10*3/uL (1.2-4.9); Lymphocytes Percent Auto 45.9 % (20-40); Mean Corpuscular HGB Conc 33.4 g/dl (31.0-35.0); Mean Corpuscular Hemoglobin 30.5 pg (27.0-33.0); Mean Corpuscular Volume 91.2 fL (80.0-98.0); Mean Platelet Volume 9.8 fL (9.4-12.3); Monocytes Absolute Auto 0.6 X10*3/uL (0.1-1.2); Monocytes Percent Auto 14.7 % (2-11); Neutrophils Absolute Auto 1.5 x10*3/uL (2.0-8.3); Neutrophils Percent Auto 37.3 % (45-73); Platelet Count 305 X10*3/uL (160-400); Red Blood Count 3.74 X10*6/uL (4.20-5.50); Red Cell Distribution Width 13.1 % (11.0-16.0); White Blood Count 3.9 X10*3/uL (4.8-10.8)
[2024-08-04 07:17] LABS: Anion Gap 12 (12-20); Blood Urea Nitrogen 18 mg/dL (9-16); Calcium 8.8 mg/dL (8.4-10.2); Carbon Dioxide 25 mmol/L (22-29); Chloride 106 mmol/L (96-108); Estimated Glomerular Filt Rate > 60; Glucose Random 88 mg/dL (60-115); Sodium 140 mmol/L (135-145)
== END 2024-08-04 06:20 | disposition home or self-care (01) ==
LOC: HO.MMNH2L 06:19
PROVIDERS: Visit Provider Student in an Organized Health Care Education/Training Program
DX: N30.00 Acute cystitis without hematuria (principal); R53.1 Weakness
CPT/HCPCS: 36415; 80048; 85025

== ENCOUNTER 2024-08-06 05:46 | Outpatient (REF) | payer MEDICARE, SELFPAY ==
[2024-08-06 06:32] LABS: Anion Gap 12 (12-20); Blood Urea Nitrogen 10 mg/dL (9-16); Carbon Dioxide 27 mmol/L (22-29); Chloride 104 mmol/L (96-108); Estimated Glomerular Filt Rate > 60; Glucose Random 91 mg/dL (60-115); Potassium 3.6 mmol/L (3.3-5.1); Sodium 139 mmol/L (135-145)
== END 2024-08-06 05:47 | disposition home or self-care (01) ==
LOC: HO.MMNH2L 05:46
PROVIDERS: Visit Provider Student in an Organized Health Care Education/Training Program
DX: I69.352 Hemiplegia and hemiparesis following cerebral infarction affecting left dominant side (principal); M25.569 Pain in unspecified knee; Z91.81 History of falling
CPT/HCPCS: 36415; 80048

== ENCOUNTER 2024-08-18 13:22 | Outpatient (REF) | payer MEDICARE, SELFPAY ==
--- NOTE | ~2024-08-18 | XR_ITS ---
CLINICAL HISTORY: M41.50 - Other secondary scoliosis, site unspecified 2 views thoracic spine Comparison: None Findings: Normal alignment. Extensive thoracolumbar fusion. No findings of complication. The left-sided facet screw at the superior most level (T11) does extend into the disc space. Bones appear osteopenic. No acute appearing thoracic vertebral body height loss. Hiatal hernia. Lungs are otherwise clear. Multilevel disc height loss. IMPRESSION: Partially visualized thoracolumbar fusion hardware. The left pedicular screw at T11 does extend into the T10/T11 disc space. Otherwise no complications or failure. Multilevel thoracic spondylosis. Osteopenia. This document has been electronically signed by: Mireya Mac MD on 08/20/2024 08:58:46
--- NOTE | ~2024-08-18 | XR_ITS ---
CLINICAL HISTORY: M41.50 - Other secondary scoliosis, site unspecified 2 views lumbar spine Comparison: None Findings: Thoracolumbar fusion. No evidence of hardware failure or complication within the lumbar spine. There is a 6 mm anterolisthesis of L4 on L5. Bones appear osteopenic. IMPRESSION: Extensive fusion without evidence of acute complication or failure. This document has been electronically signed by: Mireya Mac MD on 08/20/2024 08:59:10
== END 2024-08-18 13:23 | disposition home or self-care (01) ==
LOC: HO.HOSX 13:22
PROVIDERS: PCP Internal Medicine; Visit Provider Physician Assistant
DX: Z98.1 Arthrodesis status (principal); M41.50 Other secondary scoliosis, site unspecified
CPT/HCPCS: 72070; 72110; 99212

== ENCOUNTER 2024-08-18 13:22 | Outpatient (AMB) | payer MEDICARE, SELFPAY ==
--- NOTE | 2024-08-18 13:55 | HO.SPINEOV ---
Intake Visit Reasons: F/u LBP Intake Note: Ms. Barrera is here today for a F/u on her Low back pain. 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 Two months ago she had a T11 at L5 posterior instrumentation with interbody cages at L1-2, L2-3. This was then extension of a previous fusion which developed scoliotic curvature above the previous construct and she was brought back for scoliosis revision. She had a postop course complicated by a left leg weakness which was ultimately diagnosed as a stroke which occurred before surgery. The patient never shared with us that she was experiencing left leg weakness before she came in and ultimately a brain MRI in the hospital diagnosed the stroke. She has been in and out of rehab now for about 2 months. Her daughter Yamel is here with her today. She looks after her and is very up to date on her whole situation right now. She currently just transitioned to a assisted living facility which seems to be a nice fit for her. She is having minimal back pain, not requiring any pain medication. On my exam her wounds are healed up nicely. She is still wearing a brace. The patient's daughter and the patient reluctantly admit that she generally he is noncompliant with it. The patient has some dementia related issues and generally does not wear it at all. No x-rays to look at today. Her left leg weakness is improving. She is antigravity with the hip flexor, 4+ out of 5 with the quadriceps tibialis and plantar flexion. I am going to get a set of x-rays today in the standing position. I will talk with Dr. Shaw after I review the x-rays and get back to the patient's daughter Yamel with the plan. I suspect if the x-rays are stable he will tell her she does not continue to need the brace. 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
--- OUTSIDE RECORDS SUMMARY | 2024-08-18 15:32 | XMS_ITS | Encounter Summary ---
Author Organization [facility] [place] [address] Care Team Providers Care Quality Internship Name Role Phone Leonardo García MD Primary Care Provider [phone] Encounter Details Date Type Department Care Team (Late st Contact Info) Description 06/23/2024 Lab Requisition [facility] - Main Lab 299 [facility] [place] [address] Chris Barlow MD [address] [place] [address] Encounter for other general examination Social History [...] * Magnesium (06/23/2024 5:46 AM EST) Pathologist [facility] Magnesium 2.1 1.9 - 2.6 mg/dL LAB CHEMISTRY METHOD 06/23/2024 12:17 PM [facility] Blood Venous blood specimen / Unknown Venipuncture / Unknown 06/23/2024 5:46 AM EST 06/23/2024 10:54 AM EST us Chris Barlow MD LAB BLOOD ORDERABLES Final Resu lt [facility] [address] [place] [address], [place] [phone] * (ABNORMAL) Basic metabolic panel (06/23/2024 5:46 AM EST) [facility] Sodium 137 133 - 145 mmol/L LAB [...] LAB CHEMISTRY METHOD 06/23/2024 12:[address] [facility] Comment:Calculation based on [...] MD LAB BLOOD ORDERABLES Final Resu lt [facility] [address] [place] [address], documented in this encounter Visit Diagnoses Diagnosis Encounter for other general examination documented in this encounter Additional Health Concerns Infection Onset Date Last Indicated Resolved Time Respiratory Rule-Out 07/26/2024 07/26/2024 025 3:02 AM EST COVID-19 Rule-Out 07/26/2024 07/26/2024 07/26/2024 3:02 AM EST documented as of this encounter Care Teams Quality Internship Relationship Specialty Start Date End Date Leonardo García MD [address] [place] [id number] PCP - General Internal Medicine 06/30/24 documented as of this encounter
--- OUTSIDE RECORDS SUMMARY | 2024-08-18 15:32 | XMS_ITS | Encounter Summary ---
Author Organization [facility] Address [address] [place] [address] Care Team Providers Care Room Service Food Server Name Role Phone Leonardo García MD Primary Care Provider [phone] Encounter Details Date Type Department Care Team (Late st Contact Info) Description 07/06/2024 Lab Requisition [facility] - Main Lab 299 [facility] [place] [phone] Chris Barlow MD [address] [place] [address] Encounter for other general examination Social History [...] Culture urine (07/06/2024 10:07 AM EST) Pathologist [facility] Culture, Urine >100,000 CFU/mL Escherichia coli(A) JUDIE 07/08/2024 8:28 AM EST [facility] Urine Urine specimen obtained [...] MICROBIOLOGY - GENERAL ORDE GONZALEZ Final Result [facility] [address] [place] [address], [place] [phone] * Jay urine culture tube (07/06/2024 10:07 AM EST) Extra Tube Hold for add-ons. 07/06/2024 4:01 PM [facility] Comment:Auto resulted. Urine Urine specimen obtained by clean catch procedure / Unknown 07/06/2024 10:07 AM EST 07/06/2024 2:09 PM EST us Chris Barlow MD LAB URINE ORDERABLES Final Resu lt [facility] [address] [place] [address], [place] [phone] * (ABNORMAL) Urinalysis with reflex microscopic and culture (07/06/2024 10:07 AM EST) [facility] Specific [place] Urine 1.022 1.003 - 1.030 LAB URINALYSIS - AUTOMATED METHOD 07/06/2024 3:05 PM [facility] pH, Urine 5.5 5.0 - 8.0 pH LAB URINALYSIS - AUTOMATED METHOD 07/06/2024 3:05 PM [facility] Leukocytes, Urine Large(A) Negative LAB URINALYSIS - AUTOMATED METHOD 07/06/2024 3:05 PM [facility] Nitrite, Urine Positive(A) Negative LAB URINALYSIS - AUTOMATED METHOD 07/06/2024 3:05 PM [facility] Protein, Urine Negative <=Trace mg/dL LAB URINALYSIS - AUTOMATED METHOD 07/06/2024 3:05 PM [facility] Glucose, Urine Negative Negative mg/dL LAB URINALYSIS - AUTOMATED METHOD 07/06/2024 3:05 PM [facility] Ketones, Urine Negative Negative mg/dL LAB URINALYSIS - AUTOMATED METHOD 07/06/2024 3:05 PM [facility] Urobilinogen , Urine 1.0 0.2 - 1.0 mg/dL LAB URINALYSIS - AUTOMATED METHOD 07/06/2024 3:05 PM EST [facility] Bilirubin, Urine Negative Negative LAB URINALYSIS - AUTOMATED METHOD 07/06/2024 3:05 PM EST [facility] Blood, Urine Trace(A) Negative LAB URINALYSIS - AUTOMATED METHOD 07/06/2024 3:05 PM EST [facility] Urine Urine specimen obtained by clean catch procedure / Unknown 07/06/2024 10:07 AM EST 07/06/2024 2:07 PM EST us Chris Barlow MD LAB URINE ORDERABLES Final Resu lt [facility] [address] [place] [address], documented in this encounter Visit Diagnoses Diagnosis Encounter for other general examination documented in this encounter Additional Health Concerns Infection Onset Date Last Indicated Resolved Time Respiratory Rule-Out 07/26/2024 07/26/2024 025 3:02 AM EST COVID-19 Rule-Out 07/26/2024 07/26/2024 07/26/2024 3:02 AM EST documented as of this encounter Care Teams Room Service Food Server Relationship Specialty Start Date End Date Leonardo García MD [address] [place] [id number] PCP - General Internal Medicine 06/30/24 documented as of this encounter
--- OUTSIDE RECORDS SUMMARY | 2024-08-18 15:32 | XMS_ITS | Encounter Summary ---
Author Organization [facility] Address [address] [place] [address] Care Team Providers Care Engineering And Scientific Programmer Name Role Phone Leonardo García MD Primary Care Provider [phone] Encounter Details Date Type Department Care Team (Late st Contact Info) Description 07/07/2024 Lab Requisition [facility] - Main Lab [address] [facility] [place] [id number] Chris Barlow MD [address] [place] [address] Encounter for other general examination Social History [...] CBC auto differential (07/07/2024 6:34 AM EST) [facility] [address] WBC 6.0 4.8 - 10.8 K/mcL LAB HEMETOLOGY METHOD 07/07/2024 10:40 AM [facility] RBC 3.20(L) 3.80 - 4.80 M/mcL LAB HEMETOLOGY METHOD 07/07/2024 10:40 AM [facility] Hemoglobin 10.1(L) 11.5 - 16.0 g/dL LAB HEMETOLOGY METHOD 07/07/2024 10:40 AM [facility] Hematocrit 30.7(L) 35.0 - 47.0 % LAB HEMETOLOGY METHOD 07/07/2024 10:40 AM [facility] MCV 94.8 79.0 - 98.0 FL LAB HEMETOLOGY METHOD 07/07/2024 10:40 AM [facility] MCH 31.2 27.0 - 32.0 pcg LAB HEMETOLOGY METHOD 07/07/2024 10:40 AM [facility] MCHC 32.9 32.0 - 37.0 g/dL LAB HEMETOLOGY METHOD 07/07/2024 10:40 AM [facility] RDW 14.2 11.0 - 15.0 % LAB HEMETOLOGY METHOD 07/07/2024 10:40 AM [facility] Platelets 415(H) 130 - 400 K/mcL LAB HEMETOLOGY METHOD 07/07/2024 10:40 AM [facility] MPV 9.2 7.0 - 11.0 FL LAB HEMETOLOGY METHOD 07/07/2024 10:40 AM [facility] NRBC 0.0 <1.0 % LAB HEMETOLOGY METHOD 07/07/2024 10:40 AM [facility] NRBC Absolute 0.00 <0.10 K/mcL LAB HEMETOLOGY METHOD 07/07/2024 10:40 AM [facility] Neutrophils Relative 57.2 % LAB HEMETOLOGY METHOD 07/07/2024 10:40 AM [facility] Lymphocytes Relative 25.4 % LAB HEMETOLOGY METHOD 07/07/2024 10:40 AM [facility] Monocytes Relative 12.5 % LAB HEMETOLOGY METHOD 07/07/2024 10:40 AM [facility] Eosinophils Relative 3.8 % LAB HEMETOLOGY METHOD 07/07/2024 10:40 AM [facility] Basophils Relative 0.8 % LAB HEMETOLOGY METHOD 07/07/2024 10:40 AM [facility] Immature Granulocytes Relative 0.3 % LAB HEMETOLOGY METHOD 07/07/2024 10:40 AM [facility] Neutrophils Absolute 3.42 1.50 - 7.00 K/mcL LAB HEMETOLOGY METHOD 07/07/2024 10:40 AM [facility] Lymphocytes Absolute 1.52 1.00 - 5.00 K/mcL LAB HEMETOLOGY METHOD 07/07/2024 10:40 AM [facility] Monocytes Absolute 0.75 0.20 - 1.00 K/mcL LAB HEMETOLOGY METHOD 07/07/2024 10:40 AM [facility] Eosinophils Absolute 0.23 0.00 - 0.50 K/mcL LAB HEMETOLOGY METHOD 07/07/2024 10:40 AM [facility] Basophils Absolute 0.05 0.00 - 0.20 K/mcL LAB HEMETOLOGY METHOD 07/07/2024 10:40 AM [facility] Immature Granulocytes Absolute 0.02 0.00 - 0.03 K/mcL LAB HEMETOLOGY METHOD 07/07/2024 10:40 AM EST [facility] Blood Venous blood specimen / Unknown Venipuncture / Unknown 07/07/2024 6:34 AM EST 07/07/2024 9:05 AM EST us Chris Barlow MD LAB BLOOD ORDERABLES Final Resu lt [facility] [address] [place] [address], [place] [phone] * Basic metabolic panel (07/07/2024 6:34 AM EST) Sodium 135 133 - 145 mmol/L LAB CHEMISTRY METHOD 07/07/2024 11:20 AM [facility] Potassium 4.2 3.5 - 5.5 mmol/L LAB CHEMISTRY METHOD 07/07/2024 11:20 AM [facility] Chloride 100 96 - 110 mmol/L LAB CHEMISTRY METHOD 07/07/2024 11:20 AM [facility] CO2 28 21 - 32 mmol/L LAB CHEMISTRY METHOD 07/07/2024 11:20 AM [facility] Anion Gap 7 3 - 11 LAB CHEMISTRY METHOD 07/07/2024 11:20 AM [facility] Glucose 92 70 - 100 mg/dL LAB CHEMISTRY METHOD 07/07/2024 11:20 AM [facility] BUN 19 5 - 25 mg/dL LAB CHEMISTRY METHOD 07/07/2024 11:20 AM [facility] Creatinine 0.70 0.50 - 1.10 mg/dL LAB CHEMISTRY METHOD 07/07/2024 11:20 AM [facility] eGFR 86 >=60 mL/min/1. 73m2 LAB CHEMISTRY METHOD 07/07/2024 11:20 AM [facility] Comment:Calculation based on the??Chronic Kidney Disease Epidemiology Collaboration (CKD-EPI) equation refit??without adjustment for race. BUN/Creatinine Ratio 27.1 LAB CHEMISTRY METHOD 07/07/2024 11:20 AM EST [facility] Calcium 9.0 8.5 - 10.5 mg/dL LAB CHEMISTRY METHOD 07/07/2024 11:20 AM EST [facility] Blood Venous blood specimen / Unknown Venipuncture / Unknown 07/07/2024 6:34 AM EST 07/07/2024 9:05 AM EST us Chris Barlow MD LAB BLOOD ORDERABLES Final Resu lt [facility] [address] [place] [address], documented in this encounter Visit Diagnoses Diagnosis Encounter for other general examination documented in this encounter Additional Health Concerns Infection Onset Date Last Indicated Resolved Time Respiratory Rule-Out 07/26/2024 07/26/2024 025 3:02 AM EST COVID-19 Rule-Out 07/26/2024 07/26/2024 07/26/2024 3:02 AM EST documented as of this encounter Care Teams Engineering And Scientific Programmer Relationship Specialty Start Date End Date Leonardo García MD [address] [place] [id number] PCP - General Internal Medicine 06/30/24 documented as of this encounter
--- OUTSIDE RECORDS SUMMARY | 2024-08-18 15:32 | XMS_ITS ---
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 Role Phone Magui Quijano Unavailable Unavailable Paula Dumas Unavailable Unavailable Td Perez Unavailable Unavailable Allergies and adverse reactions Code CodeSystem Substance Reaction Severity StartDate Concern Status 17006 RXNORM Tetracycline Moderate 07/18/2024 active 733 RXNORM Ampicillin Severe 07/18/2024 active Care Team Name Role Address Phone Organization Dates Td Perez PCP [address] [place] [address], [id number], [facility] : [facility] 07/18/2024 - present Magui Quijano Attending Physician [address] [place] [address], [id number], [place] (Office): : [facility] 07/18/2024 - present Paula Dumas Attending Physician [address] [place] [address], [place], [id number], [facility] ([facility] : [facility] 07/18/2024 - present Goals Section Description Status Target Date I will maintain optimal stat us and quality of life within limitations imposed by Hemiplegia/Hemiparesis (specify) through next review date. Active 10/12/2024 I will attend/participate in activities of choice (Specify i.e.3-5 times weekly) by next review date. Active 10/12/2024 I will be at reduced risk fo r complications of self care performance deficit and impaired mobility daily through the review date. Active 10/12/2024 I will be free from discomfo rt and adverse effects of pain medication through the review date. Active 10/12/2024 I will be free from discomfo rt or adverse side effects of antibiotic therapy through the review date. Active 10/12/2024 I will be free from discomfo rt or adverse side effects of anticoagulant therapy through the review date. Active 025 I will be free from s/sx of complications of cardiac problems through the review date. Active 10/12/2024 I will be free from s/sx of dehydration through next review date. Active 10/12/2024 I will be free of fall relat ed injury through the next review date. Active 10/12/2024 I will maintain adequate nut ritional status as evidenced by maintaining weight within +/-5% of (SPECIFY BASELINE), no s/sx of malnutrition, and consuming at least >/=76% of at least 2 meals daily through review date. Active 10/12/2024 I will not have skin breakdo wn due to incontinence through the review date. Active 10/12/2024 I will remain free from disc omfort and complications related to gastro-esophageal reflux through the review date. Active 10/02 I will remain free from disc omfort, complications or s/sx related to gastrointestinal alterations through review date. Active 0 10/12/2024 I will verbalize adequate re lief of pain or ability to cope with incompletely relieved pain through the review date. Active My skin integrity will be im proved or maintained by next review date. Active 10/12/2024 My urinary tract infection w ill resolve without complications by the review date. Active 10/12/2024 The resident will have intac t skin, free of redness, blisters, or discoloration through review date. Active 10/12/2024 Functional Status Code Name Recorded Time Value Entered By Eating 07/24/2024 Independent molivo Lying to sitting on side of bed 07/25/2024 Not assessed levital Oral hygiene 07/25/2024 Substantial/maximal assistan ce levital Personal hygiene 07/25/2024 Substantial/maximal assi stance levital Shower/bathe self 07/25/2024 Not assessed levital Sit to lying 07/25/2024 Substantial/maximal assistan ce levital Toilet transfer 07/25/2024 Substantial/maximal katheryn tance levital Toileting hygiene 07/25/2024 Substantial/maximal ass istance levital Immunizations Immunization Status Vaccine Details Vaccine Code CodeSystem Noe e Notes Tetanus completed tetanus immune globulin 13 CVX created date: 07/22/2024 administered date: 08/24/2018 (Influenza) FLUAD - Adjuvanted - High Dose - 65+ completed Influenza, adjuvanted, inactivated, trivalent, injectable, preservative free 168 CVX created date: 07/22/2024 administered date: 03/04/2024 (COVID-19) [id number] Updated [employer] Vaccine completed SARS-COV-2 (COVID-19) vaccine, mRNA, spike protein, LNP, preservative free, juanito-sucrose, 30 mcg/0.3 mL dose 309 CVX created date: 07/22/2024 administered date: 03/04/2024 Medications Section Medication Name Status Code CodeSystem Dose Route Frequency Admin Type Sig Text Start Date End Date Tubersol Solution 5 UNIT/0.1ML complete d 060624 RXNORM 0.1 ml Intrade rmal one time only One Time Only Inject 0.1 ml intrad ermall y one time only for Screen ing for TB until 2024 23:59 record indura tion in millim eters; Read PPD in 48 hours, notify physic markos if positi ve and discon tinue 2-step . 07/20 Tubersol Solution 5 UNIT/0.1ML active 436930 RXNORM 0.1 ml Intrade rmal one time only One Time Only Inject 0.1 ml intrad ermall y one time only for Screen ing For TB until 2024 23:59 record indura tion in millim eters; Read PPD in 48 hours, notify physic markos if positi ve. 08/03 Dulcolax Suppository 10 MG active 272320 RXNORM 1 suppos itory Rectal as needed PRN Insert 1 suppos itory rectal ly as needed for Consti pation every 3 days if No Bowel Moveme nt and Milk of Magnes ia ineffe ctive 2024 - Milk of Magnesia Suspension 400 MG/5ML active 783128 RXNORM 30 ml Oral as needed PRN Give 30 ml by mouth as needed for Consti pation daily 2024 - Fleet Enema Enema 7-19 GM/118ML active 099727 RXNORM 1 applic ation Rectal as needed PRN Insert 1 applic ation rectal ly as needed for Consti pation daily 2024 - levoFLOXacin Oral Tablet 750 MG complete d 780034 RXNORM 1 tablet Oral one time a day Routine Give 1 tablet by mouth one time a day for UTI for 4 Days 07/23 Aspirin Oral Tablet Chewable 81 MG active 865824 RXNORM 1 tablet Oral one time a day Routine Give 1 tablet by mouth one time a day for Pain 2024 - Acetaminophen Tablet 325 MG aborted 201875 RXNORM 3 tablet Oral three times a day Routine Give 3 tablet by mouth three times a day for Pain Manage ment DO NOT EXCEED GREATE R THAN 3 GRAMS/ 24 HOURS 07/21 Omeprazole Oral Capsule Delayed Release 40 MG active 923734 RXNORM 1 capsul e Oral one time a day Routine Give 1 capsul e by mouth one time a day for GERD 2024 - oxyCODONE HCl Oral Tablet 5 MG active 484950 1 RXNORM 1 tablet Oral as needed PRN Give 1 tablet by mouth every 4 hours as needed for Modera te(4-6 ) - Severe (7-10) Pain 2024 - Heparin Sodium (Porcine) Injection Solution 5000 UNIT/ML aborted 513920 3 RXNORM 5000 unit Subcuta neous three times a day Routine Inject 5000 unit subcut aneous ly three times a day for Antico agulat ion Therap y 07/23 Colace Oral Capsule 100 MG active 619396 6 RXNORM 1 capsul e Oral as needed PRN Give 1 capsul e by mouth every 12 hours as needed for Consti pation 2024 - Atorvastatin Calcium Oral Tablet 40 MG aborted 965243 RXNORM 1 tablet Oral in the evening Routine Give 1 tablet by mouth in the evenin g for Choles terol 07/24 Baclofen Oral Tablet 10 MG active 360286 RXNORM 1 tablet Oral as needed PRN Give 1 tablet by mouth every 12 hours as needed for Pain Manage ment 2024 - Lidocaine Patch 4 % active 822447 8 RXNORM n/a n/a Topical in the morning Routine Apply to area of discom fort topica lly in the mornin g for pain for 12 hours then remove 2024 - Tylenol Extra Strength Oral Tablet 500 MG aborted 627909 RXNORM 1 tablet Oral three times a day Routine Give 1 tablet by mouth three times a day for pain manage ment decrea sed due to elevat ed LFTs 07/24 Heparin Sodium (Porcine) Injection Solution 5000 UNIT/ML aborted 592939 3 RXNORM 5000 unit Subcuta neous every 8 hours Routine Inject 5000 unit subcut aneous ly every 8 hours for Antico agulat ion Therap y 07/24 Potassium Chloride ER Tablet Extended Release 20 MEQ complete d 19800609 RXNORM 2 tablet Oral STAT STAT Give 2 tablet by mouth STAT for hypoK 07/25 Problems Problem # Description Date of onset Resolved Date Code CodeSystem Concern Status 1 ANEMIA, UNSPECIFIED [address] active 2 ESSENTIAL (PRIMARY) HYPERTENSION [address] active 3 HISTORY OF FALLING [address] active 4 MUSCLE WASTING AND ATROPHY, NOT ELSEWHERE CLASSIFIED, MULTIPLE SITES [address] active 5 UNSPECIFIED PROTEIN-CALORIE MALNUTRITION [address] active 6 ADULT FAILURE TO THRIVE [address] active 7 GASTRO-ESOPHAGEAL REFLUX DISEASE WITHOUT ESOPHAGITIS [address] active 8 GASTROINTESTINAL HEMORRHAGE, UNSPECIFIED [address] active 9 HEMIPLEGIA AND HEMIPARESIS FOLLOWING CEREBRAL INFARCTION AFFECTING LEFT DOMINANT SIDE [address] active 10 HYPERLIPIDEMIA, UNSPECIFIED [address] active 11 PAIN IN UNSPECIFIED KNEE [address] active 12 SPINAL STENOSIS, LUMBAR REGION WITHOUT NEUROGENIC CLAUDICATION [address] active 13 URINARY TRACT INFECTION, SITE NOT SPECIFIED [address] active Reason for Referral No Reasons for Referral Entered Social History Social History Observation Description Start Date End Date Code Code System Current Smoking Status Tobacco smoking consumption unknown 484221095 SNOMED CT Sex Assigned At Female 1940 03802-8 [facility] Vital Signs Code Code System Vitals Name Values and Units Timing Information 57365-3 [facility] Pain Level Value=0.0 07/25/2024 8310-5 [facility] Body Temperature Value=98.8 Units=?? F 07/23/2024 9279-1 [facility] Respiratory Rate Value=18.0 Units=/m in 07/22/2024 8462-4 [facility] Blood Pressure-Diastolic Value=69 Un its=mmHg 07/22/2024 8480-6 [facility] Blood Pressure-Systolic Chwuw=970 Un its=mmHg 07/22/2024 8867-4 [facility] Heart rate Value=76.0 Units=/min 66308-5 [facility] O2 % BldC Oximetry Value=95.0 Units= % 07/22/2024 04216-2 [facility] Weight Oejok=805.2 Units=Lbs 8302-2 [facility] Height Value=64.0 Units=Inches 07/19/2024
--- OUTSIDE RECORDS SUMMARY | 2024-08-18 15:32 | XMS_ITS | Data Portability ---
Author Organization [facility] Home Service Address [address] [place] [address] Assessment Encounter Date Assessment Date Assessment LastModified [...] None recorded. Lab lipid panel, blood 2020 [facility], [address] [place] [address], [place], [address], 13:17:16 CMP, serum or plasma 2020 [facility], [address] [place] [address], [place], [address], 13:17:16 CBC w/ auto diff 2020 [facility], [address] [place] [address], [place], [address], 1 13:17:16 CMP, serum or plasma 2019 [facility], [address] [place] [address], [place], [address], 0 15:24:12 CBC w/ auto diff 2019 [facility], [address] [place] [address], [place], [address], 0 15:24:12 CMP, serum or plasma 2019 V[facility] Not available 0 16:01:10 Referral None recorded. Procedures None recorded. Surgeries None recorded. Imaging None recorded. Medication Orders celecoxib 200 mg capsule 2021 022 [facility] #[id number], [address], [place], [id number], 2 11:37:31 metronidaz ole 0.75 % topical cream 2021 [facility] #44269, [address], [place], [id number], 2 11:29:27 hydrochlor othiazide 25 mg tablet 2021 022 [facility] #96391, [address], [place], [id number], 2 11:31:03 hydrochlor othiazide 25 mg tablet 2019 [facility] #[id number], [address], [place], [id number], 0 10:39:17 Patient TargetsNo targets recorded. Patient Instructions Encounter Date Encounter Id Patient Instructions Last Modified By Organization Details Last Modified Time 03/12/2020 [id number] rhythm strip, EKG* VON Not available 03/12/2020 17:29:18 Reason for Referral None Reported. Results Created Date Observation Date Name Description Value Unit Range Abnormal Flag Note LastModifiedBy Organization Detail LastModifiedTime 03/12/20 20 03/12/2020 rhyth m strip , EKG* No observ ation record ed. [facility] [address] [facility], [place], [address], 03/16/2020 09:55:12 09/02/19 21 08/31/2020 MAMMO , scree andres, digit al, bilat eral No observ ation record ed. [address] [place], [address], 09/01/2020 14:06:45 01/04/20 21 01/03/2021 XR, knee No observ ation record ed. [facility] [address] [place], [address], 01/03/2021 16:03:47 09/06/19 22 09/02/2021 MAMMO , scree andres, digit al, bilat eral No observ ation record ed. [address] [place], [address], 09/05/2021 12:30:19 Result Notes None recorded. Problems Name Problem SNOMED Code Status Onset Date Resolution Date Notes Provider Name and Address Organization Details Recorded Time Essential hypertensi on 92835827 Active 2017 Not Available [facility] 0 11:57:35 Hyperchole sterolemia 65881995 Active 2017 Not Available [facility] 0 11:57:35 Gastric reflux 866634790 Active 2017 Not Available [facility] 0 11:57:35 Degenerati on of interverte bral disc 56972353 Active 2017 Not Available [facility] 0 11:57:35 Insomnia 697664634 Active 2018 Not Available [facility] 0 11:57:35 Kamran 012492174 Active 2021 [address] [place], [address], [facility] Internal [facility] 2 11:27:44 Problem Notes None recorded. Procedures Surgical History Date Name Laterality Status Provider Name and Address Organization Details Recorded Time 018 Most Recent Mammogram completed Hamida Pinedo [facility] 05/06/2019 09:57:25 018 laminectomy completed Brigette Cates NP, S [address] [place] [address], [address], [facility] 05/01/2018 14:57:46 [address] [facility] 04/30/2018 14:53:24 Cataract Surgery completed [facility] 04/30/2018 14:51:58 complete repair of rotator cuff completed [facility] 04/30/2018 14:52:29 Appendectomy completed Brigette grullon NP, [address] [place] [address], [address], [facility] 04/30/2018 16:37:33 tonsillectomy completed Brigette menendez NP, [address] [place] [address], [address], [facility] Internal [facility] 04/30/2018 16:38:54 Imaging Results Imaging Date Name Status LastModified by Organiz ation Details LastModified Time 03/12/2020 rhythm strip, EKG* [facility] [address] [facility], [place], [address], 03/16/2020 09:55:12 08/31/2020 MAMMO, screening, digital, bilateral completed rtba [facility] [address] [place] [address] [place], [address], 09/01/2020 14:06:45 01/03/2021 XR, knee completed rtryba [facility] [address] [facility], [place], [address], 01/03/2021 16:03:47 09/02/2021 MAMMO, screening, digital, bilateral completed rtryba [facility] [address] [place], [address], 09/05/2021 12:30:19 Procedure Notes None recorded. Medical Equipment None Reported. Allergies Allergen ID Allergen Name Allergen Category Reaction Reaction Severity Criticality Documentation Date Start Date Code Code System Note Provider Name and Address Organization Details Recorded Time 2553 ampicilli n medicatio n Not available Not available Not available 04/30/2018 733 RxNorm Claire valencia [facility] Internal [facility] 8 14:43:03 2554 tetracycl ine medicatio n Not available Not available Not available 04/30/2018 92480 RxNorm Claire valencia [facility] 8 14:43:18 2555 Chloromyc etin medicatio n Not available Not available Not available 04/30/2018 47960 8 RxNorm Claire Tovar [facility] Internal [facility] 8 14:51:28 3665 adhesive tape environme nt,medica tion rash Not available Not available 06/10/2019 [id number] UNK Hamida Mahmoodaugustine [facility] 0 10:05:05 Medications Name Sig [...] completed Not Available Not Available Not Available [place] 3 02/16 completed Not Available Not Available [...] Updated DateTime 0 160.02 cm 32.8 kg/m2 59632.6 7 g 78 /min 98 % 98 % 148 mm[Hg] 92 mm[Hg] [facility] 0 10:29:24 Date Recorded Body height Body mass index (BMI) Body weight Heart rate Oxygen saturation Oxygen saturation in Arterial blood by Pulse oximetry Systolic blood pressure Diastolic blood pressure Provider Name and Address Organization Details Last Updated DateTime 0 160.02 cm 32.9 kg/m2 12106.8 2 g 78 /min 97 % 97 % 130 mm[Hg] 82 mm[Hg] [facility] 0 14:26:47 Date Recorded Body height Body mass index (BMI) Body weight Oxygen saturation Oxygen saturation in Arterial blood by Pulse oximetry Heart rate Systolic blood pressure Diastolic blood pressure Provider Name and Address Organization Details Last Updated DateTime 1 160.02 cm 33.4 kg/m2 35647.2 4 g 97 % 97 % 83 /min 158 mm[Hg] 90 mm[Hg] Lianna [facility] 1 11:28:23 Date Recorded Body height Oxygen saturation Oxygen saturation in Arterial blood by Pulse oximetry Heart rate Systolic blood pressure Diastolic blood pressure Provider Name and Address Organization Details Last Updated DateTime 2 160.02 cm 99 % 99 % 74 /min 158 mm[Hg] 90 mm[Hg] Lian[facility] 2 11:16:48 Social History [...] virus, quadrivalent, preservative 8 completed Hamida valencia [facility] 03/12/2020 14:22:57 Influenza, split virus, quadrivalent, preservative 1 completed Lianna valencia [facility] 05/10/2021 08:45:09 COVID-19, mRNA, LNP-S, PF, 30 mcg/0.3 mL dose 1 completed Lianna valencia [facility] 05/10/2021 08:45:31 COVID-19, mRNA, LNP-S, PF, 30 mcg/0.3 mL dose 1 completed Lianna valencia [facility] 05/10/2021 08:45:46 Td(adult) unspecified formulation 9 completed Lianna valencia [facility] 05/10/2021 08:46:19 Influenza, split virus, quadrivalent, preservative 9 completed Hamida valencia [facility] 03/12/2020 14:22:57 Influenza, split virus, quadrivalent, preservative 0 completed Hamida valencia [facility] 03/12/2020 14:22:57 Past Encounters Encounter ID Performer Location Encounter Start Date Encounter Closed Date Diagnosis/Indication Diagnosis SNOMED-CT Code Diagnosis ICD10 Code Diagnosis Note [id number] Brigette Cates NP, S [facility] [address],[place] [address] 05/01/2018 13:37:32 05/01/2018 15:16:02 Essential hypertension 02913697 I10 Degenerati on of intervertebral disc 14945894 M51.9 S/P laminectom y Hypercholesterolemia 136 13517 E78.00 Decreased hearing 794619 001 H91.93 September CESAR Hannon [facility] [address] [facility], [place] [address] 11/01/2018 11:36:08 11/01/2018 12:10:37 Essential hypertension 82491313 I10 stable Degenerati on of intervertebral disc 56271510 M51.9 S/P laminectom y Hypercholesterolemia 136 18178 E78.00 taking lovastatin every other day - would really like to get off the med discussed diet for weight loss Insomnia 612382244 G47.0 0 takes a half at bedtime to help her sleep lots of stress Body mass index 30+ - obesity 932997112 Z68.33 discussed diet strategies cutting out sugar [...] to have water and tea while fasting [id number] CESAR Alfred [facility] [address] [facility],[place] [address] 06/10/2019 09:46:55 06/10/2019 10:42:39 Essential hypertension 83079495 I10 mildly elevated d/c hctz start lisinopril 10 mg Degenerati on of intervertebral disc 80927102 M51.9 S/P laminectom y Hypercholesterolemia 136 12632 E78.00 taking lovastatin every other day - would really like to get off the med discussed diet for weight loss Insomnia 308250290 G47.0 0 takes a half at bedtime to help her sleep as needed lots of stress Body mass index 30+ - obesity 681917941 Z68.33 has lost about 10 lbs! has cut back her sugar intake due to her high bs last time Gastric reflux 512986703 K21.9 Hearing loss 18177194 H9 1.93 Advance care planning 71 1425617 Z71.89 HCP - planning to re-do her will/trust and update HCP [id number] [address] [facility] Medicine [address] [facility], [place] [address] 02/17/2020 10:22:21 02/17/2020 11:04:06 Essential hypertension 14044223 I10 will switch off losartan as patient states it makes her thirsty and dry mouth the patient would like to go back on HTCZ, will just monitor her kidney function more frequently Adult heal th examination 692634597 Z00.00 BP is elevated has been since switch from HTCZ to losartan will switch back and just watch kidneys closer never had issue with kidney function before on it Active or passive immunization 847086715 Z23 has shingle shot, old one long time ago getting flu shot at pharmacy [id number] [address] [facility] Medicine [address] [facility] [address],[place] [address] 03/12/2020 14:10:33 03/12/2020 15:07:44 Pre-surgery evaluation 719362160 Z01.818 based on exam and history will clear for surgery pending labs and EKG will fax EKG separately after reading results [id number] [address] [facility] Medicine [address] [facility] [address],[place] [address] 05/18/2020 08:44:16 05/18/2020 10:08:45 Essential hypertension 48210596 I10 BP has been stable on the HTCZ, no side effects CMP looks good as well Osteoarthritis 147280085 M19.90 improvemen t with surgery and PT, if need surgeon will clear out arthritis behind her patella [id number] [address] [facility] Medicine [address] [facility] [address],[place] [address] 05/13/2021 10:59:04 05/13/2021 12:18:39 Essential hypertension 86911032 I10 BP has been stable with other checks and with recheck in office Hypercholesterolemia 136 71346 E78.2 will recheck labsdiscus sed stopping as she has muscle aches with it constantly [id number] [address] [facility] Medicine [address] [facility] [address],[place] [address] 09/07/2021 11:09:39 09/12/2021 09:03:07 Hypercholesterolemia 77356246 E78.2 will recheck labsdiscus sed stopping as she has muscle aches with it constantly Essential hypertension 95860617 I10 BP has been stable with other checks and with recheck in office Degenerati on of intervertebral disc 29764457 M51.06 seeing PT for the next 6 weeks Insomnia 799251459 G47.0 0 stable Rosacea 459356602 L71.8 will trial a course of metronidaz [...] 02/17/2020 2 [employer] [place] [id number] [place] 02/17/2020 1 MEDICARE B-[place]: [facility] Crystal G [place] [id number] Crystal [place] 03/12/2020 2 [employer] [place] [id number] Crystal [place] 03/12/2020 1 MEDICARE [place]: [facility] [place] [id number] [place] 05/18/2020 2 [employer] [facility] [place] [id number] Crystal [place] 05/18/2020 1 MEDICARE [place]: [facility] [place] [id number] [place] 05/13/2021 2 [employer] [facility] [place] [id number] Crystal [place] 05/13/2021 1 [facility] [place] [id number] [place] 09/07/2021 2 [employer] [place] [id number] Crystal [place] 09/07/2021 1 [facility] [place] [id number] [place] Notes Date Note Type Note Provider Name [...] good lighting in the home DICKSON STONE [address] [place] [address], [address], [facility] 02/17/2020 10:47:42 0 text/html Pre-OpReported bypatient.Surgery to be Performed:left knee arthroscopy Dr. Jimenez [facility] Risk Factorsno cognitive impairment; no functional impairment; [...] Support:adequate assistance at home DICKSON STONE [address] [place], [address], [facility] 03/12/2020 15:56:29 0 text/html 3 [...] sore throat, no fatigue DICKSON STONE [address] [place], [address], [facility] Medicine 05/18/2020 10:08:45 1 text/html medication [...] to her side effects DICKSON STONE [address] [place], [address], [facility] 05/13/2021 11:43:58 2 text/html medication [...] questions and concerns answered today DICKSON STONE [address] [place] [address], [place], [address], [facility] 09/07/2021 11:39:36 OBGyn Episode No OBEpisode recorded.
--- OUTSIDE RECORDS SUMMARY | 2024-08-18 15:32 | XMS_ITS | Encounter Summary ---
Author Organization [facility] [place] [address] Care Team Providers Care Disbursing Agent Name Role Phone Leonardo García MD Primary Care Provider [phone] Encounter Details Date Type Department Care Team (Late st Contact Info) Description 07/05/2024 Lab Requisition [facility] - Main Lab [address] [facility] [place] [address] Chris Barlow MD [address] [place] [address] Encounter for other general examination Social History [...] CBC auto differential (07/05/2024 7:00 AM EST) [facility] Signature WBC 9.9 4.8 - 10.8 K/mcL [...] [facility] Monocytes Relative 10.4 [...] Phone Number [facility] [address] [place] [address], [place] [phone] * Magnesium (07/05/2024 7:00 AM EST) Pathologist [facility] Magnesium 2.4 1.9 - 2.6 mg/dL LAB CHEMISTRY METHOD 07/05/2024 12:15 PM EST [facility] Blood Venous blood specimen / Unknown Venipuncture / Unknown 07/05/2024 7:00 AM EST 07/05/2024 10:39 AM EST Chris Barlow MD LAB BLOOD ORDERABLES Final Resu lt Performing Organization Address [facility]/ZIP Co de Phone Number [facility] [address] [place] [address], [place] [phone] * (ABNORMAL) Comprehensive metabolic panel (07/05/2024 7:00 AM EST) Sodium 132(L) 133 - 145 mmol/L LAB CHEMISTRY METHOD 07/05/2024 12:14 PM EST [facility] Potassium 4.3 3.5 - 5.5 mmol/L LAB CHEMISTRY METHOD 07/05/2024 12:14 PM EST [facility] Chloride 98 96 - 110 mmol/L LAB CHEMISTRY METHOD 07/05/2024 12:14 PM EST [facility] CO2 28 21 [...] LAB CHEMISTRY METHOD 07/05/2024 12:14 PM EST [facility] Blood Venous blood specimen / Unknown Venipuncture / Unknown 07/05/2024 7:00 AM EST 07/05/2024 10:39 AM EST us Chris Barlow MD LAB BLOOD ORDERABLES Final Resu lt [facility] [address] [place] [address], documented in this encounter Visit Diagnoses Diagnosis Encounter for other general examination documented in this encounter Additional Health Concerns Infection Onset Date Last Indicated Resolved Time Respiratory Rule-Out 07/26/2024 07/26/2024 025 3:02 AM EST COVID-19 Rule-Out 07/26/2024 07/26/2024 07/26/2024 3:02 AM EST documented as of this encounter Care Teams Disbursing Agent Relationship Specialty Start Date End Date Leonardo García MD [address] [place] [address] PCP - General Internal Medicine 06/30/24 documented as of this encounter
--- OUTSIDE RECORDS SUMMARY | 2024-08-18 15:32 | XMS_ITS | Encounter Summary ---
Author Organization [facility] Address [address] [place] [address] Care Team Providers Care Hydraulic Plumber Name Role Phone Leonardo García MD Primary Care Provider [phone] Encounter Details Date Type Department Care Team (Late st Contact Info) Description 06/29/2024 Lab Requisition [facility] - Main Lab [address] [facility] [place] [address] Chris Barlow MD [address] [place] [address] Encounter for other general examination Social History [...] CBC auto differential (06/29/2024 5:48 AM EST) [facility] Signature WBC 9.9 4.8 - 10.8 K/mcL LAB HEMETOLOGY METHOD 06/29/2024 10:26 AM [facility] RBC 3.60(L) 3.80 - 4.80 M/mcL LAB HEMETOLOGY METHOD 06/29/2024 10:26 AM [facility] Hemoglobin 11.2(L) 11.5 - 16.0 g/dL LAB HEMETOLOGY METHOD 06/29/2024 10:26 AM [facility] Hematocrit 33.3(L) 35.0 - 47.0 % LAB HEMETOLOGY METHOD 06/29/2024 10:26 AM [facility] MCV 93.0 79.0 - 98.0 FL LAB HEMETOLOGY METHOD 06/29/2024 10:26 AM [facility] MCH 31.3 27.0 - 32.0 pcg LAB HEMETOLOGY METHOD 06/29/2024 10:26 AM [facility] MCHC 33.6 32.0 - 37.0 g/dL LAB HEMETOLOGY METHOD 06/29/2024 10:26 AM [facility] RDW 13.8 11.0 - 15.0 % LAB HEMETOLOGY METHOD 06/29/2024 10:26 AM [facility] Platelets 373 130 - 400 K/mcL LAB HEMETOLOGY METHOD 06/29/2024 10:26 AM [facility] MPV 9.4 7.0 - 11.0 FL LAB HEMETOLOGY METHOD 06/29/2024 10:26 AM [facility] NRBC 0.0 <1.0 % LAB HEMETOLOGY METHOD 06/29/2024 10:26 AM [facility] NRBC Absolute 0.00 <0.10 K/mcL LAB HEMETOLOGY METHOD 06/29/2024 10:26 AM [facility] Neutrophils Relative 64.0 % LAB HEMETOLOGY METHOD 06/29/2024 10:26 AM [facility] Lymphocytes Relative 25.2 % LAB HEMETOLOGY METHOD 06/29/2024 10:26 AM [facility] Monocytes Relative 7.8 % LAB HEMETOLOGY METHOD 06/29/2024 10:26 AM [facility] Eosinophils Relative 2.0 % LAB HEMETOLOGY METHOD 06/29/2024 10:26 AM [facility] Basophils Relative 0.4 % LAB HEMETOLOGY METHOD 06/29/2024 10:26 AM [facility] Immature Granulocytes Relative 0.6 % LAB HEMETOLOGY METHOD 06/29/2024 10:26 AM [facility] Neutrophils Absolute 6.31 1.50 - 7.00 K/mcL LAB HEMETOLOGY METHOD 06/29/2024 10:26 AM [facility] Lymphocytes Absolute 2.49 1.00 - 5.00 K/mcL LAB HEMETOLOGY METHOD 06/29/2024 10:26 AM [facility] Monocytes Absolute 0.77 0.20 - 1.00 K/mcL LAB HEMETOLOGY METHOD 06/29/2024 10:26 AM [facility] Eosinophils Absolute 0.20 0.00 - 0.50 K/mcL LAB HEMETOLOGY METHOD 06/29/2024 10:26 AM [facility] Basophils Absolute 0.04 0.00 - 0.20 K/mcL LAB HEMETOLOGY METHOD 06/29/2024 10:26 AM [facility] Immature Granulocytes Absolute 0.06(H) 0.00 - 0.03 K/mcL LAB HEMETOLOGY METHOD 06/29/2024 10:26 AM EST [facility] Blood Venous blood specimen / Unknown Venipuncture / Unknown 06/29/2024 5:48 AM EST 06/29/2024 8:27 AM EST Chris Barlow MD LAB BLOOD ORDERABLES Final Resu lt Performing Organization Address City/[facility]/ZIP Co de Phone Number [facility] [address] [place] [address], [place] [phone] * Magnesium (06/29/2024 5:48 AM EST) [facility] Magnesium 2.2 1.9 - 2.6 mg/dL LAB CHEMISTRY METHOD 06/29/2024 10:10 AM EST [facility] Blood Venous blood specimen / Unknown Venipuncture / Unknown 06/29/2024 5:48 AM EST 06/29/2024 8:27 AM EST us Chris Barlow MD LAB BLOOD ORDERABLES Final Resu lt Performing Organization Address [facility]/ZIP Co de Phone Number [facility] [address] [place] [address], [place] [phone] * (ABNORMAL) Comprehensive metabolic panel (06/29/2024 5:48 AM EST) [facility] Sodium 134 133 - 145 mmol/L LAB CHEMISTRY METHOD 06/29/2024 10:10 AM EST [facility] Potassium 3.7 3.5 - 5.5 mmol/L LAB CHEMISTRY METHOD 06/29/2024 10:10 AM EST [facility] Chloride 100 96 - 110 mmol/L LAB CHEMISTRY METHOD 06/29/2024 10:10 AM EST [facility] CO2 29 21 - 32 mmol/L LAB CHEMISTRY METHOD 06/29/2024 10:10 AM EST [facility] Anion Gap 5 3 - 11 LAB CHEMISTRY METHOD 06/29/2024 10:10 AM [facility] Glucose 86 70 - 100 mg/dL LAB CHEMISTRY METHOD 06/29/2024 10:10 AM [facility] BUN 18 5 - 25 mg/dL LAB CHEMISTRY METHOD 06/29/2024 10:10 AM [facility] Creatinine 0.66 0.50 - 1.10 mg/dL LAB CHEMISTRY METHOD 06/29/2024 10:10 AM [facility] eGFR 88 >=60 mL/min/1. 73m2 LAB CHEMISTRY METHOD 06/29/2024 10:10 AM [facility] Comment:Calculation based on the??Chronic Kidney Disease Epidemiology Collaboration (CKD-EPI) equation refit??without adjustment for race. BUN/Creatinine Ratio 27.3 LAB CHEMISTRY METHOD 06/29/2024 10:10 AM [facility] Calcium 8.9 8.5 - 10.5 mg/dL LAB CHEMISTRY METHOD 06/29/2024 10:10 AM [facility] AST (SGOT) 36 10 - 42 unit/L LAB CHEMISTRY METHOD 06/29/2024 10:10 AM [facility] ALT (SGPT) 69(H) 10 - 60 unit/L LAB CHEMISTRY METHOD 06/29/2024 10:10 AM [facility] Alkaline Phosphatase 141(H) 42 - 121 unit/L LAB CHEMISTRY METHOD 06/29/2024 10:10 AM [facility] Total Protein 5.9(L) 6.0 - 8.0 g/dL LAB CHEMISTRY METHOD 06/29/2024 10:10 AM [facility] Albumin 3.2 3.2 - 5.0 g/dL LAB CHEMISTRY METHOD 06/29/2024 10:10 AM [facility] Total Bilirubin 0.8 0.0 - 1.4 mg/dL LAB CHEMISTRY METHOD 06/29/2024 10:10 AM EST [facility] Blood Venous blood specimen / Unknown Venipuncture / Unknown 06/29/2024 5:48 AM EST 06/29/2024 8:27 AM EST us Chris Barlow MD LAB BLOOD ORDERABLES Final Resu lt [facility] [address] [place] [address], documented in this encounter Visit Diagnoses Diagnosis Encounter for other general examination documented in this encounter Additional Health Concerns Infection Onset Date Last Indicated Resolved Time Respiratory Rule-Out 07/26/2024 07/26/2024 025 3:02 AM EST COVID-19 Rule-Out 07/26/2024 07/26/2024 07/26/2024 3:02 AM EST documented as of this encounter Care Teams Hydraulic Plumber Relationship Specialty Start Date End Date Leonardo García MD [address] [place] [address] PCP - General Internal Medicine 06/30/24 documented as of this encounter
--- OUTSIDE RECORDS SUMMARY | 2024-08-18 15:33 | XMS_ITS | Encounter Summary ---
Author Organization [facility] Address [address] [place] [address] Care Team Providers Care Game Farm Supervisor Name Role Phone Leonardo García MD Primary Care Provider [phone] Encounter Details Date Type Department Care Team (Late st Contact Info) Description 06/22/2024 Lab Requisition [facility] - Main Lab [address] [facility] [place] [address] Chris Barlow MD [address] [place] [address] Encounter for other general examination Social History [...] mmol/L LAB CHEMISTRY METHOD 06/22/2024 9:17 AM [facility] Potassium 3.4(L) 3.5 - 5.5 mmol/L LAB CHEMISTRY METHOD 06/22/2024 9:17 AM [facility] Chloride 101 96 - 110 mmol/L LAB CHEMISTRY METHOD 06/22/2024 9:17 AM [facility] CO2 28 21 - 32 mmol/L LAB CHEMISTRY METHOD 06/22/2024 9:17 AM [facility] Anion Gap 8 3 - 11 LAB CHEMISTRY METHOD 06/22/2024 9:17 AM [facility] Glucose 128(H) 70 - 100 mg/dL LAB CHEMISTRY METHOD 06/22/2024 9:17 AM [facility] BUN 14 5 - 25 mg/dL LAB CHEMISTRY METHOD 06/22/2024 9:17 AM [facility] Creatinine 0.60 0.50 - 1.10 mg/dL LAB CHEMISTRY METHOD 06/22/2024 9:17 AM [facility] eGFR 90 >=60 mL/min/1. 73m2 LAB CHEMISTRY METHOD 06/22/2024 9:17 AM [facility] Comment:Calculation based on the??Chronic Kidney Disease Epidemiology Collaboration (CKD-EPI) equation refit??without adjustment for race. BUN/Creatinine Ratio 23.3 LAB CHEMISTRY METHOD 06/22/2024 9:17 AM [facility] Calcium 8.3(L) 8.5 - 10.5 mg/dL LAB CHEMISTRY METHOD 06/22/2024 9:17 AM [facility] Blood Venous blood specimen / Unknown Venipuncture / Unknown 06/22/2024 6:05 AM EST 06/22/2024 8:27 AM EST us Chris Barlow MD LAB BLOOD ORDERABLES Final Resu lt [facility] [address] [place], [place] [address] [phone] documented in this encounter Visit Diagnoses Diagnosis Encounter for other general examination documented in this encounter Additional Health Concerns Infection Onset Date Last Indicated Resolved Time Respiratory Rule-Out 07/26/2024 07/26/2024 025 3:02 AM EST COVID-19 Rule-Out 07/26/2024 07/26/2024 07/26/2024 3:02 AM EST documented as of this encounter Care Teams Game Farm Supervisor Relationship Specialty Start Date End Date Leonardo García MD [address] [place] [id number] PCP - General Internal Medicine 06/30/24 documented as of this encounter
--- OUTSIDE RECORDS SUMMARY | 2024-08-18 15:33 | XMS_ITS | Clinical Summary ---
Author Organization [facility] Address [address] [place] [address] Care Team Providers Care Department Administrator Name Role Phone Unavailable Primary Care Provider [...]
--- OUTSIDE RECORDS SUMMARY | 2024-08-18 15:33 | XMS_ITS ---
Author Name [facility] Organization [facility] Encounters Encounter Type Encounter Reason Primary Diagnosis Location Date Ambulatory [facility] 12/01/2022 Care Team Organization Name Specialty Phone Email Start Date End Da te [facility] RANI AGUILA Primary Care 05/04/2022 024
--- OUTSIDE RECORDS SUMMARY | 2024-08-18 15:33 | XMS_ITS ---
Author Organization [facility] Address [address] [place] [address] Care Team Providers Care Manager Garage Name Role Phone Ashleigh Grullon MD Primary Care Provider Mukesh Taveras [phone] REASON FOR VISIT follow up after procedure Encounters Encounter Location Date Provider Diagnosis [facility] [address] [place] [address] 04/23/2023 Mukesh Bearden Plan Of Treatment No Information Progress Notes * SRINIVASAN ALVARADO GDOB:1939 (83 yo F)Acc No.[id number]:04/23/2023 Patient:?SRINIVASAN ALVARADO :1940???Age:82 Y???Sex:Female Address:[address] [place], [place] [address] [address] * true * Date:? Generated for Elieser vasquez/Jairo/eTransmitting on:?08/18/2024 03:32 PM EDT
--- OUTSIDE RECORDS SUMMARY | 2024-08-18 15:33 | XMS_ITS ---
Author Organization [facility] Care Team Providers Care Physician [facility] Name Role Phone Magui Quijano Unavailable Unavailable Paula Dumas Unavailable Unavailable Paula Cormier Unavailable Unavailable Td Perez Unavailable Unavailable Allergies and adverse reactions Code CodeSystem Substance Reaction Severity StartDate Concern Status 15222 RXNORM Tetracycline Moderate 07/18/2024 active 733 RXNORM Ampicillin Severe 07/18/2024 active Care Team Name Role Address Phone Organization Dates Td Ana PCP [address] [place] [address], [address], [facility] (Office): : [facility] 07/27/2024 - 08/08/2024 Magui Quijano Attending Physician [address] [place] [address], [phone], [place] (Office): : [facility] 07/27/2024 - 08/08/2024 Paula Dumas Attending Physician [address] [place] [address], [address], [facility] (Office): : [facility] 07/27/2024 - 08/08/2024 Paula Cormier Attending Physician [address] [place] [address], [place], [address], [place] (Office): : [facility] 07/27/2024 - 08/08/2024 Goals Section Description Status Target Date I will maintain optimal stat us and quality of life within limitations imposed by Hemiplegia/Hemiparesis (specify) through next review date. Active 10/25/2024 I plan to discharge to [facility] to the [facility] where I was residing prior to being in the hospital Pending outcome of therapy sessions, clinical medical stability progress reviewed weekly. Active 10/25/2024 I will attend/participate in activities of choice 1-2 times weekly) by next review date. Active 10/25/2024 I will be at reduced risk fo r adverse drug reactions through the review date. Active 10/25/2024 I will be at reduced risk fo r complications of self care performance deficit and impaired mobility daily through the review date. Active 10/25/2024 I will be free from discomfo rt and adverse effects of pain medication through the review date. Active 10/25/2024 I will be free from discomfo rt or adverse side effects of antibiotic therapy through the review date. Active 10/25/2024 I will be free from discomfo rt or adverse side effects of anticoagulant therapy through the review date. Active I will be free from s/sx of complications of cardiac problems through the review date. Active 10/25/2024 I will be free from s/sx of dehydration through next review date. Active 10/25/2024 I will be free of fall relat ed injury through the next review date. Active 10/25/2024 I will improve current level of cognitive function by the review date. Active 10/25/2024 I will maintain adequate nut ritional status as evidenced by maintaining weight within +/-5% of CBW, no s/sx of malnutrition, and consuming at least >/=76% of at least 2 meals daily through review date. Active 10/25/2024 I will maintain involvement in cognitive stimulation, social activities as desired through next review date. Active 2024 I will not have skin breakdo wn due to incontinence through the review date. Active 10/25/2024 I will remain free from disc omfort and complications related to gastro-esophageal reflux through the review date. Active 10/03 I will remain free from disc omfort, complications or s/sx related to gastrointestinal alterations through review date. Active 0 10/25/2024 I will verbalize adequate re lief of pain or ability to cope with incompletely relieved pain through the review date. Active My skin integrity will be im proved or maintained by next review date. Active 10/25/2024 My urinary tract infection w ill resolve without complications by the review date. Active 10/25/2024 The resident will have intac t skin, free of redness, blisters, or discoloration through review date. Active 10/25/2024 The resident's advance direc tives are in effect and their wishes will be carried out through the next review. Active Functional Status Code Name Recorded Time Value Entered By Eating 08/08/2024 Partial/moderate assistance [email or web address] Lying to sitting on side of bed 08/08/2024 Partial/m oderate assistance [email or web address] Oral hygiene 08/08/2024 Partial/moderate assistance [email or web address] Personal hygiene 08/08/2024 Partial/moderate assista nce [email or web address] Shower/bathe self 08/08/2024 Partial/moderate assist ance [email or web address] Sit to lying 08/08/2024 Partial/moderate assistance [email or web address] Toilet transfer 08/08/2024 Partial/moderate assistan ce [email or web address] Toileting hygiene 08/08/2024 Partial/moderate assist ance [email or web address] Immunizations Immunization Status Vaccine Details Vaccine Code CodeSystem Noe e Notes Tetanus completed tetanus immune globulin 13 CVX created date: 07/22/2024 administered date: 08/24/2018 (Influenza) FLUAD - Adjuvanted - High Dose - 65+ completed Influenza, adjuvanted, inactivated, trivalent, injectable, preservative free 168 CVX created date: 07/22/2024 administered date: 03/04/2024 (COVID-19) [id number] Updated Pfizer Vaccine completed SARS-COV-2 (COVID-19) vaccine, mRNA, spike protein, LNP, preservative free, juanito-sucrose, 30 mcg/0.3 mL dose 309 CVX created date: 07/22/2024 administered date: 03/04/2024 Medications Section Medication Name Status Code CodeSystem Dose Route Frequency Admin Type Sig Text Start Date End Date Tubersol Solution 5 UNIT/0.1ML complete d 857557 RXNORM 0.1 ml Intrade rmal one time only One Time Only Inject 0.1 ml intrad ermall y one time only for Screen ing for TB until 2024 23:59 record indura tion in millim eters; Read PPD in 48 hours, notify physic markos if positi ve and discon tinue 2-step . 07/20 Tubersol Solution 5 UNIT/0.1ML complete d 688343 RXNORM 0.1 ml Intrade rmal one time only One Time Only Inject 0.1 ml intrad ermall y one time only for Screen ing For TB until 2024 23:59 record indura tion in millim eters; Read PPD in 48 hours, notify physic markos if positi ve. 08/03 Dulcolax Suppository 10 MG active 690936 RXNORM 1 suppos itory Rectal as needed PRN Insert 1 suppos itory rectal ly as needed for Consti pation every 3 days if No Bowel Moveme nt and Milk of Magnes ia ineffe ctive 2024 - Milk of Magnesia Suspension 400 MG/5ML active 022385 RXNORM 30 ml Oral as needed PRN Give 30 ml by mouth as needed for Consti pation daily 2024 - Fleet Enema Enema 7-19 GM/118ML active 052877 RXNORM 1 applic ation Rectal as needed PRN Insert 1 applic ation rectal ly as needed for Consti pation daily 2024 - levoFLOXacin Oral Tablet 750 MG complete d 273233 RXNORM 1 tablet Oral one time a day Routine Give 1 tablet by mouth one time a day for UTI for 4 Days 07/23 Aspirin Oral Tablet Chewable 81 MG active 068171 RXNORM 1 tablet Oral one time a day Routine Give 1 tablet by mouth one time a day for Pain 2024 - Acetaminophen Tablet 325 MG aborted 765721 RXNORM 3 tablet Oral three times a day Routine Give 3 tablet by mouth three times a day for Pain Manage ment DO NOT EXCEED GREATE R THAN 3 GRAMS/ 24 HOURS 07/21 Omeprazole Oral Capsule Delayed Release 40 MG active 868914 RXNORM 1 capsul e Oral one time a day Routine Give 1 capsul e by mouth one time a day for GERD 2024 - oxyCODONE HCl Oral Tablet 5 MG aborted 217158 1 RXNORM 1 tablet Oral as needed PRN Give 1 tablet by mouth every 4 hours as needed for Modera te(4-6 ) - Severe (7-10) Pain 07/28 Heparin Sodium (Porcine) Injection Solution 5000 UNIT/ML aborted 894534 3 RXNORM 5000 unit Subcuta neous three times a day Routine Inject 5000 unit subcut aneous ly three times a day for Antico agulat ion Therap y 07/23 Colace Oral Capsule 100 MG active 013495 6 RXNORM 1 capsul e Oral as needed PRN Give 1 capsul e by mouth every 12 hours as needed for Consti pation 2024 - Atorvastatin Calcium Oral Tablet 40 MG aborted 743930 RXNORM 1 tablet Oral in the evening Routine Give 1 tablet by mouth in the evenin g for Choles terol 07/24 Baclofen Oral Tablet 10 MG aborted 335240 RXNORM 1 tablet Oral as needed PRN Give 1 tablet by mouth every 12 hours as needed for Pain Manage ment 08/06 Lidocaine Patch 4 % active 909668 8 RXNORM n/a n/a Topical in the morning Routine Apply to area of discom fort topica lly in the mornin g for pain for 12 hours then remove 2024 - Tylenol Extra Strength Oral Tablet 500 MG aborted 334402 RXNORM 1 tablet Oral three times a day Routine Give 1 tablet by mouth three times a day for pain manage ment decrea sed due to elevat ed LFTs 07/245 Heparin Sodium (Porcine) Injection Solution 5000 UNIT/ML aborted 381393 3 RXNORM 5000 unit Subcuta neous every 8 hours Routine Inject 5000 unit subcut aneous ly every 8 hours for Antico agulat ion Therap y 07/24 Potassium Chloride ER Tablet Extended Release 20 MEQ complete d 19800609 RXNORM 2 tablet Oral STAT STAT Give 2 tablet by mouth STAT for hypoK 07/25 AmLODIPine Besylate Tablet 5 MG active 133216 RXNORM 1 tablet Oral one time a day Routine Give 1 tablet by mouth one time a day for hypert ension 2024 - Atorvastatin Calcium Oral Tablet 80 MG aborted 638047 RXNORM 80 mg Oral in the morning Routine Give 80 mg by mouth in the mornin g for choles terol 07/28 Omeprazole Oral Capsule Delayed Release 20 MG aborted 334245 RXNORM 40 mg Oral in the morning Routine Give 40 mg by mouth in the mornin g for gerd 07/28 Potassium Chloride ER Tablet Extended Release 20 MEQ complete d 19800609 RXNORM 2 tablet Oral one time only One Time Only Give 2 tablet by mouth one time only for hypoK for 1 Day 07/29 oxyCODONE HCl Oral Tablet 5 MG aborted 823675 1 RXNORM 1 tablet Oral as needed PRN Give 1 tablet by mouth every 6 hours as needed for Modera te(4-6 ) - Severe (7-10) Pain 07/30 Tylenol Extra Strength Oral Tablet 500 MG active 900747 RXNORM 500 mg Oral as needed PRN Give 500 mg by mouth every 12 hours as needed for Pain 2024 - traMADol HCl Oral Tablet 25 MG aborted 658067 0 RXNORM 25 mg Oral as needed PRN Give 25 mg by mouth every 6 hours as needed for pain 08/06 Potassium Chloride ER Oral Tablet Extended Release complete d 40 mEq Oral every 6 hours Routine Give 40 mEq by mouth every 6 hours for Hypoka lemia for 2 Admini strati ons 08/06 Mental Status Section Date Assessment Total Score Description 07/25/2024 CAM 0 No delirium ind icated 07/24/2024 BIMS 11 moderate cognit dinh impairment CAM 0 No delirium ind icated Problems Problem # Description Date of onset Resolved Date Code CodeSystem Concern Status 1 ANEMIA, UNSPECIFIED [address] active 2 ESSENTIAL (PRIMARY) HYPERTENSION [address] active 3 HISTORY OF FALLING [address] active 4 MUSCLE WASTING AND ATROPHY, NOT ELSEWHERE CLASSIFIED, MULTIPLE SITES [address] active 5 UNSPECIFIED PROTEIN-CALORIE MALNUTRITION [address] active 6 ADULT FAILURE TO THRIVE [address] active 7 GASTRO-ESOPHAGEAL REFLUX DISEASE WITHOUT ESOPHAGITIS [address] active 8 GASTROINTESTINAL HEMORRHAGE, UNSPECIFIED [address] active 9 HEMIPLEGIA AND HEMIPARESIS FOLLOWING CEREBRAL INFARCTION AFFECTING LEFT DOMINANT SIDE [address] active 10 HYPERLIPIDEMIA, UNSPECIFIED [address] active 11 PAIN IN UNSPECIFIED KNEE [address] active 12 SPINAL STENOSIS, LUMBAR REGION WITHOUT NEUROGENIC CLAUDICATION [address] active 13 URINARY TRACT INFECTION, SITE NOT SPECIFIED [address] active Reason for Referral No Reasons for Referral Entered Social History Social History Observation Description Start Date End Date Code Code System Current Smoking Status Tobacco smoking consumption unknown 253829261 SNOMED CT Sex Assigned At Female 1940 [address]-9 [facility] Vital Signs Code Code System Vitals Name Values and Units Timing Information 85625-6 LOINC Pain Level Value=0.0 08/08/2024 9279-1 LOINC Respiratory Rate Value=18.0 Units=/m in 08/07/2024 8462-4 LOINC Blood Pressure-Diastolic Value=82 Un its=mmHg 08/07/2024 8480-6 LOINC Blood Pressure-Systolic Bobcy=692 Un its=mmHg 08/07/2024 8310-5 LOINC Body Temperature Value=97.2 Units=?? F 08/07/2024 8867-4 [facility] Heart rate Value=91.0 Units=/min 11/2024 62408-9 [facility] O2 % BldC Oximetry Value=95.0 Units= % 08/07/2024 53084-5 [facility] Weight Cwyra=657.0 Units=Lbs 09/2024 8302-2 [facility] Height Value=64.0 Units=Inches 07/19/2024
--- OUTSIDE RECORDS SUMMARY | 2024-08-18 15:33 | XMS_ITS | Encounter Summary ---
Author Organization [facility] Address [address] [place] [address] Care Team Providers Care Cognos Report Developer Name Role Phone Leonardo García MD Primary Care Provider Encounter Details Date Type Department Care Team (Late st Contact Info) Description 06/21/2024 Lab Requisition [facility] - Main Lab [address] [facility] [place] [address] Chris Barlow MD [address] [place] [address] Encounter for other general examination Social History [...] CBC auto differential (06/21/2024 7:13 AM EST) [facility] WBC 8.0 4.8 - 10.8 K/mcL LAB [...] LAB HEMETOLOGY METHOD 06/21/2024 10:55 AM EST [facility] Blood Venous blood specimen / Unknown Venipuncture / Unknown 06/21/2024 7:13 AM EST 06/21/2024 10:03 AM EST us Chris Barlow MD LAB BLOOD ORDERABLES Final Resu lt Performing Organization Address City/[facility]/ZIP Co de Phone Number [facility] [address] [place] [address], [place] [phone] * (ABNORMAL) Magnesium (06/21/2024 7:13 AM EST) Magnesium 1.7(L) 1.9 - 2.6 mg/dL LAB CHEMISTRY METHOD 06/21/2024 11:21 AM EST [facility] Blood Venous blood specimen / Unknown Venipuncture / Unknown 06/21/2024 7:13 AM EST 06/21/2024 10:03 AM EST us Chris Barlow MD LAB BLOOD ORDERABLES Final Resu lt Performing Organization Address [facility]/ZIP Co de Phone Number [facility] [address] [place] [address], [place] [phone] * (ABNORMAL) Comprehensive metabolic panel (06/21/2024 7:13 AM EST) Sodium 138 133 - 145 mmol/L LAB CHEMISTRY METHOD 06/21/2024 11:50 AM EST [facility] Potassium 2.8(LL) 3.5 - 5.5 mmol/L LAB CHEMISTRY METHOD 06/21/2024 11:50 AM EST [facility] Chloride 103 96 - 110 mmol/L LAB CHEMISTRY METHOD 06/21/2024 11:50 AM EST [facility] CO2 30 21 - [...] LAB CHEMISTRY METHOD 06/21/2024 11:50 AM EST [facility] Blood Venous blood specimen / Unknown Venipuncture / Unknown 06/21/2024 7:13 AM EST 06/21/2024 10:03 AM EST us Chris Barlow MD LAB BLOOD ORDERABLES Final Resu lt [facility] [address] [place] [address], documented in this encounter Visit Diagnoses Diagnosis Encounter for other general examination documented in this encounter Additional Health Concerns Infection Onset Date Last Indicated Resolved Time Respiratory Rule-Out 07/26/2024 07/26/2024 025 3:02 AM EST COVID-19 Rule-Out 07/26/2024 07/26/2024 07/26/2024 3:02 AM EST documented as of this encounter Care Teams Cognos Report Developer Relationship Specialty Start Date End Date Leonardo García MD [address] [place] [address] PCP - General Internal Medicine 06/30/24 documented as of this encounter
--- OUTSIDE RECORDS SUMMARY | 2024-08-18 15:33 | XMS_ITS | Clinical Summary ---
Author Organization [facility] Address [address] [place] [address] Care Team Providers Care Hand Baseball Sewer Name Role Phone Ashleigh Grullon MD Primary Care Provider [phone] Allergies Active Allergy Reactions Criticality Noted Date Comments Ampicillin Anaphylaxis High 08/15/2017 Chloramphenicol Anaphylaxis High 08/15/2017 [place] 08/30/2017 Tape Rash Medium 08/30/2017 Paper tape, [...] MORNING AND IN THE EVENING 0 Active Bellamy-3 Fatty Acids (OMEGA-3 FISH OIL PO) Take [...] Immunizations Name Administration Dates Next Due Covid-19 ([place]icos) Dilution Required 05/11/2021,0 08/04/2020,07/14/2020 Social History Tobacco [...] this topic Medical Devices Implanted Type Area Search Engine Optimization Strategist Device Identifier Shelf Expiration Date Model / Serial / Lot Screw 6.5 X 45.Mm - [id number] - [id number] Implanted:Qty : 1 on 08/30/2017 by Emeka Lopez MD at [facility] Posterior: Spine Lumbar [employer] 1067.1645 / / 6.5 X 50mm Screw Modular Creo Amp - [id number] - [id number] Implanted:Qty : 3 on 08/30/2017 by Emeka Lopez MD at [facility] Posterior: Spine Lumbar [employer] 1067.1650 / / 5.5 Polyaxial Tulip Threaded Creo Amp - 144199 - [id number] Implanted:Qty : 4 on 08/30/2017 by Emeka Lopez MD at [facility] Posterior: Spine Lumbar [employer] 1119.0110 / / 5.5 Threaded Locking Cap Creo - 144243 - [id number] Implanted:Qty : 4 on 08/30/2017 by Emeka Lopez MD at [facility] Posterior: Spine Lumbar [facility] 1119.0010 / / 5.5mm Curved Gurpreet Titanium Alloy 40mm Length - [id number] - [id number] Implanted:Qty : 2 on 08/30/2017 by Emeka Lopez MD at [facility] Posterior: Spine Lumbar [facility] 1119.7040 / / Lp Hex Screw 6.5x20mm Stry-Howm 5131-6655-009 457 - [id number] Implanted:Qty : 1 on 02/16/2022 by Ottoniel Wells MD at [facility] Left: Hip [employer] [id number] 11/23/2026 2717-5443 / / [id number] Hip Insrt X3 Trident 0d 36mm E Stry-Howm 298-48-84z-20 0921 - [id number] Implanted:Qty : 1 on 02/16/2022 by Ottoniel Wells MD at [facility] Left: Hip [employer] [id number] 09/24/2025 623-10-36 E / / [id number] Hip Stm Parveen 127 #2 30 124 Stry-Howm 2908-8174s-58 7932 - [id number] Implanted:Qty : 1 on 02/16/2022 by Ottoniel Wells MD at [facility] Left: Hip [employer] [id number] 10/21/2026 6456-8622 D / / [id number] Plug Bone Sm Stry-Howm 1209-1-911-14 3871 - [id number] Implanted:Qty : 1 on 02/16/2022 by Ottoniel Wells MD at [facility] Left: Hip [employer] [id number] 11/16/2026 6215-5-00 1 / / [id number] E Hip Dist Spacer Ostnc Univ #8 Stry-Howm 9377-4276-917 590 - [id number] Implanted:Qty : 1 on 02/16/2022 by Ottoniel Wells MD at [facility] Left: Hip [employer] [id number] 01/19/2027 1286-3232 / / [id number] Hip Head Delta Biolox 36mm-2.5 Stry-Howm 4275-7-152-54 9191 - [id number] Implanted:Qty : 1 on 02/16/2022 by Ottoniel Wells MD at [facility] Left: Hip [employer] [id number] 11/10/2026 6570-0-43 6 / / [id number] Cement Bone Surg Simplex Radiopq Stry-Howm 9178-3-647-11 4092 - [id number] Implanted:Qty : 1 on 02/16/2022 by Ottoniel Wells MD at [facility] Left: Hip [facility] [facility] [id number] 05/03/2023 6190-06-04 0 / / [id number] Cement Bone Surg Simplex Radiopq Stry-Howm 4306-4-751-11 4092 - [id number] Implanted:Qty : 1 on 02/16/2022 by Ottoniel Wells MD at [facility] Left: Hip [employer] [id number] 05/03/2023 6190-06-04 0 / / [id number] Lp Hex Screw 6.5x30mm Stry-Howm 3930-9927-170 478 - [id number] Implanted:Qty : 1 on 02/16/2022 by Ottoniel Wells MD at [facility] Left: Hip [employer] [facility] [id number] 12/15/2026 7113-9254 / / [id number] Tritanium Cluster Hole Shell 52mm Stry-Howm 575-61-75r-77 0473 - [id number] Implanted:Qty : 1 on 02/16/2022 by Ottoniel Wells MD at [facility] Left: Hip [employer] [id number] 09/28/2026 702-04-52 E / / [id number] Advance Directives For more information, please contact: [phone] Documents on File Type Date 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 Care Teams Hand Baseball Sewer Relationship Specialty Start Date End Date Cichon, Ashleigh, MD [address] [place] [address] PCP - General Postdoctoral Fellow 01/02/22
--- OUTSIDE RECORDS SUMMARY | 2024-08-18 15:33 | XMS_ITS | Encounter Summary ---
Author Organization [facility] Address [address] [place] [address] Care Team Providers Care Special Agent In Charge Name Role Phone Unavailable Primary Care Provider Unavailabl e Encounter Details Date Type Department Care Team (Late st Contact Info) Description 03/17/2020 Lab Requisition [facility] [address] [place] [address] Boo Milian PA-C [address] [place] [address] Encounter for laboratory testing for COVID-19 virus [...] DETECTED Not Detected 03/18/2020 5:59 PM EDT [employer] Comment: ADDITIONAL INFORMATION The SUKUMAR COVID-19 RT-PCR Assay is Real-Time Reverse Dry Goods Clerk Polymerase Chain Reaction (dye reel operator helper-PCR) for the in vitro qualitative detection of three SARS-Cov-2 target sequences unique to the coronavirus disease 2019 (COVID-19). This is an Emergency Use Authorization (EUA) in vitro diagnostic (IVD) test that has been modified to include the [employer] automated liquid handler. Its analytical performance characteristics have been determined by the assistant import manager and verified by [facility] in a manner consistent with CLIA [...] at the following links: For Healthcare Providers: https://www.fda.gov/media/650767/download For Patients: https://www.fda.gov/media/600593/download TEST LIMITATIONS Positive results are indicative of [...] system. For further details refer to the [employer] TaqPath COVID-19 Combo Kit EUA submission (https://www.myShavingClub.com.gov/media/233380/download). ----- Test performed by [facility], [address] [place], [place] [address] CLIA# [id number] ?[id number] ? Antoine Shah M.D., Ph.D., [facility] Clinical Microbiology Quality Control Technician Microbiology Nasopharyngeal swab / Unknown 03/17/2020 2:45 PM EDT 03/17/2020 2:45 PM EDT Narrative [facility] - 03/18/2020 5:59 PM EDT Performed at [facility], [address], [place], [place] Lic [address], CLIA [id number] Boo Milian PA-C MICROBIOLOGY - NERAL ORDERABLES [facility] [address] [place] [address] documented in this encounter Visit Diagnoses Diagnosis Encounter for laboratory testing for COVID-19 virus documented in this encounter
--- OUTSIDE RECORDS SUMMARY | 2024-08-18 15:33 | XMS_ITS ---
Author Organization [facility] Address [address] [place] [address] Care Team Providers Care Rubber Chemist Name Role Phone Ashleigh Grullon MD Primary Care Provider Mukesh Taveras [phone] Allergies Allergen (clinical drug ingredient) Drug/Non Drug Allergy documented on EMR Reaction Allergy Type Onset Date Status tetracycline Tetracycline HCl Unknown Drug Allergy Active ampicillin Ampicillin Unknown Drug Allergy Activ e REASON FOR VISIT Patient presents today for gerd Medications Medication SIG (Take, Route, Frequency, Duration) Notes Start Date End Date Status amLODIPine Besylate 5 MG Oral for 60 Active Celecoxib 200 MG Oral for 30 A ctive Multivitamin - 1 tablet Orally Once a day for 30 day(s) Active Omeprazole 40 MG 1 Oral Act dinh tylenol Active Problems Problem Type SNOMED Code ICD Code Onset Dates Problem Status W/U Status Risk Notes Problem Hiatal hernia (27634036) Hiatal hernia (K44.9) Active confirmed Problem Acute hemorrhagic gastritis (7796391) Acute gastritis with bleeding (K29.01) Active confirmed Problem Chronic antral gastritis with hemorrhage (disorder) (777683659) Chronic gastritis with bleeding, unspecified gastritis type (K29.51) Active confirmed Problem Chronic diarrhea (082409798) Chronic diarrhea (K52.9) Active confirmed Vital Signs Temperature 96.4 degrees Fahrenheit 08/28/19 24 Blood pressure systolic 00 mm Hg 08/28/19 24 Blood pressure diastolic 00 mm Hg 024 Height 63.5 in 08/28/2023 Weight 150 lbs 08/28/2023 BMI 26.15 kg/m2 08/28/2023 Encounters Encounter Location Date Provider Diagnosis [facility] [address] [place] [address] 08/28/2023 Mukesh Bearden Iron deficiency anem ia D50.9 ; Hiatal hernia K44.9 ; Chronic gastritis with bleeding, unspecified gastritis type K29.51 and Chronic diarrhea K52.9 Assessments Encounter Date Diagnosis (ICD Code) Assessment Notes Treatment Notes Treatment Clinical Notes Section Notes 08/28/2023 Iron deficiency anemia (ICD-10 - D50.9) Overall, Srinivasan appears quite well. Her previous anemia has completely resolved by avoiding NSAIDs and staying on her omeprazole. I did advise her to continue the omeprazole long-term given her known significant hiatal hernia and previous GI bleeding. I did advise her to try to avoid all NSAIDs as well. Based on her excellent clinical appearance and resolution of the anemia, I don't think any further evaluation of that is required. I advised her that she can certainly stay off iron and have some periodic monitoring of her blood counts every 6 months or so. In regard to the new diarrhea that she has been having since this morning this does not seem particularly worrisome by her description. I don't think she needs any testing for that given the acute onset and her good clinical appearance. I did advise her stay on a very bland diet and stay hydrated, and to call me if symptoms persist or worsen in which case we would want to obtain some stool specimens. If things otherwise remain well I advised Srinivasan to see me on a p.r.n. basis. Srinivasan and Jimena were both very comfortable with this plan. Thank you again for allowing me to participate in Srinivasan's care. I shall continue to keep you advised of her progress. 08/28/2023 Hiatal hernia (ICD-10 - K44.9) Overall, Srinivasan appears quite well. Her previous anemia has completely resolved by avoiding NSAIDs and staying on her omeprazole. I did advise her to continue the omeprazole long-term given her known significant hiatal hernia and previous GI bleeding. I did advise her to try to avoid all NSAIDs as well. Based on her excellent clinical appearance and resolution of the anemia, I don't think any further evaluation of that is required. I advised her that she can certainly stay off iron and have some periodic monitoring of her blood counts every 6 months or so. In regard to the new diarrhea that she has been having since this morning this does not seem particularly worrisome by her description. I don't think she needs any testing for that given the acute onset and her good clinical appearance. I did advise her stay on a very bland diet and stay hydrated, and to call me if symptoms persist or worsen in which case we would want to obtain some stool specimens. If things otherwise remain well I advised Srinivasan to see me on a p.r.n. basis. Srinivasan and Jimena were both very comfortable with this plan. Thank you again for allowing me to participate in Srinivasan's care. I shall continue to keep you advised of her progress. 08/28/2023 Chronic gastritis with bleeding, unspecified gastritis type (ICD-10 - K29.51) Overall, Srinivasan appears quite well. Her previous anemia has completely resolved by avoiding NSAIDs and staying on her omeprazole. I did advise her to continue the omeprazole long-term given her known significant hiatal hernia and previous GI bleeding. I did advise her to try to avoid all NSAIDs as well. Based on her excellent clinical appearance and resolution of the anemia, I don't think any further evaluation of that is required. I advised her that she can certainly stay off iron and have some periodic monitoring of her blood counts every 6 months or so. In regard to the new diarrhea that she has been having since this morning this does not seem particularly worrisome by her description. I don't think she needs any testing for that given the acute onset and her good clinical appearance. I did advise her stay on a very bland diet and stay hydrated, and to call me if symptoms persist or worsen in which case we would want to obtain some stool specimens. If things otherwise remain well I advised Srinivasan to see me on a p.r.n. basis. Srinivasan and Jimena were both very comfortable with this plan. Thank you again for allowing me to participate in Srinivasan's care. I shall continue to keep you advised of her progress. 08/28/2023 Chronic diarrhea (ICD-10 - K52.9) Eat bland diet until diarrhea is better. Call if need be Overall, Srinivasan appears quite well. Her previous anemia has completely resolved by avoiding NSAIDs and staying on her omeprazole. I did advise her to continue the omeprazole long-term given her known significant hiatal hernia and previous GI bleeding. I did advise her to try to avoid all NSAIDs as well. Based on her excellent clinical appearance and resolution of the anemia, I don't think any further evaluation of that is required. I advised her that she can certainly stay off iron and have some periodic monitoring of her blood counts every 6 months or so. In regard to the new diarrhea that she has been having since this morning this does not seem particularly worrisome by her description. I don't think she needs any testing for that given the acute onset and her good clinical appearance. I did advise her stay on a very bland diet and stay hydrated, and to call me if symptoms persist or worsen in which case we would want to obtain some stool specimens. If things otherwise remain well I advised Srinivasan to see me on a p.r.n. basis. Srinivasan and Jimena were both very comfortable with this plan. Thank you again for allowing me to participate in Srinivasan's care. I shall continue to keep you advised of her progress. Plan Of Treatment Medication Medication Name Sig Start Date Stop Date Notes Omeprazole 40 MG 1 Oral Treatment Notes Assessment Notes Chronic diarrhea Eat bland diet until diarrhea is better. Call if need be Next Appt Details Follow Up: prn, Reason: Progress Notes * SRINIVASAN ALVRAADO GDOB:1939 (83 yo F)Acc No.[id number]:08/28/2023 Progress Notes Patient:?SRINIVASAN ALVARADO Provider:?Mukesh Bearden MD :1940???Age:83 Y???Sex:Female D ate:08/28/2023 Address:[address] [place] [address], [id number] Pcp:Ashleigh Grullon MD Subjective: * Chief Complaints: * ???Patient presents today fo r gerd * HPI: ???incontinence:? I saw Srinivasan in followup today in regard to her hiatal hernia, gastritis, and anemia. She is accompanied by her SCREEN PRINTING MACHINE OPERATOR HELPER, Jimena. ?I last saw Srinivasan in April of 2023 when she was admitted with a hemoglobin of 7.2. Her workup with an upper endoscopy and colonoscopy revealed her known hiatal hernia with associated erosions within the hiatal hernia, as well as antral gastritis. Gastric biopsies were negative for H. pylori. Duodenal biopsies were negative for celiac disease. A colonoscopy on that day was unremarkable. ?Since the hospitalization she was on oral iron but stopped that due to some GI upset. She has remain off of NSAIDs other than Celebrex, and has remained On her omeprazole. Her blood work from just last week revealed a hemoglobin of 14.0. ?She is presently feeling well. She did have a couple of episodes of diarrhea this morning but prior to that had been feeling very well with regular bowel movements and good appetite. She denies any hematochezia nor melena. She denies any significant heartburn or dysphagia. She denies abdominal pain, jaundice, nor weight loss. ?She did just had back surgery in July and is recovering from that. ?In regard to her diarrhea she denies any recent antibiotic use, suspicious food intake, nor ill contacts. * ROS:?General/Constitutional:?Change in appetite?denies.?Chills?denies.?Fatigue?denies.?Ophthalmologic:?Comments?all negative.?ENT:?Comments?all negative.?Respiratory:?hemoptysis?denies.?Cough?denies.?Cardiovascular:?Chest pain?denies.?Orthopnea?denies.?Gastrointestinal:?Comments?See HPI for details.?Genitourinary:?Hematuria?denies.?Dysuria?denies.?Musculoskeletal:?Painful joints?denies.?Weakness?denies.?Skin:?Itching?denies.?Rash?denies.?Neurologic:?Headache?denies.?Seizures?denies.?Psychiatric:?Comments?all negative.? * Medical History:? * Surgical History:?rotator cu ff tear repair-right ack surgery disc 09/2011dilatation and curettage eye surgery appendectomy total knee replacement left 2021total hip replacement left ack surgery with Dr. Shaw 07/2023 * Hospitalization/Major Diagno stic Procedure:?No Hospitalization History. * Family History:?Father: dece ased.?Mother: , breast cancer , diagnosed with HTN (hypertension), Heart disease.? No colorectal cancer. * Social History:?Tobacco Use:?Tobacco Use/Smoking?Are you a: nonsmoker.?Drugs/Alcohol:?Alcohol Screen?Points: 1, Interpretation: Negative.?Miscellaneous:?Marital status: . Occupation: retired. ???Nonsmoker; no sig alcohol. * Medications:?Takingtylenol Multivitamin - Tablet 1 tablet Orally Once a dayamLODIPine Besylate 5 MG Tablet Oral Celecoxib 200 MG Capsule Oral Omeprazole 40 MG Capsule Delayed Release TAKE 1 CAPSULE BY MOUTH DAILY AT 6.3 AM Oral Taking tylenol Taking Multivitamin - Tablet 1 tablet Orally Once a dayTaking amLODIPine Besylate 5 MG Tablet Oral Taking Celecoxib 200 MG Capsule Oral Taking Omeprazole 40 MG Capsule Delayed Release TAKE 1 CAPSULE BY MOUTH DAILY AT 6.3 AM Oral DiscontinuedhydroCHLOROthiazide 25 MG Tablet 1 tablet Orally Once a dayLovastatin 40 MG Tablet 1 tablet with a meal Orally Once a dayAspir-81 81 MG Tablet Delayed Release 1 tablet Orally Once a [id number] [place] 3 Colyte w Flavor Packs 240 GM Solution Reconstituted as directed Orally as directedMedication List reviewed and reconciled with the patientDiscontinued hydroCHLOROthiazide 25 MG Tablet 1 tablet Orally Once a dayDiscontinued Lovastatin 40 MG Tablet 1 tablet with a meal Orally Once a dayDiscontinued Aspir-81 81 MG Tablet Delayed Release 1 tablet Orally Once a dayDiscontinued CoQ10 Discontinued [place] 3 Discontinued Colyte w Flavor Packs 240 GM Solution Reconstituted as directed Orally as directedMedication List reviewed and reconciled with the patient * Allergies:?Tetracycline HClA mpicillinyes[Allergies Verified] Objective: * Vitals:?Wt: 150 lbs, Ht: 63. 5 in, BMI:26.15 Index, BP: 00/00 mm Hg, Temp: 96.4. * Examination: ???General Examination: ?GENERAL APPEARANCE:?pleasant, well nourished, well developed, in no acute distress.?EYES:?sclera non-icteric.?ORAL CAVITY:?mucosa moist.?NECK/THYROID:?no cervical lymphadenopathy, neck supple.?SKIN:?nonjaundiced, no spider angiomata.?HEART:?S1, S2 normal.?LUNGS:?clear to auscultation bilaterally.?ABDOMEN:?normal bowel sounds, no guarding or rigidity, no guarding or rigidity, no masses palpable, soft, nontender, nondistended.?EXTREMITIES:?no edema.?NEUROLOGIC:?alert and oriented.? Assessment: * Assessment: 1.?Iron deficiency anemia - D50.9 (Primary)?2.?Hiatal hernia - K44.9?3.?Chronic gastritis with bleeding, unspecified gastritis type - K29.51?4.?Chronic diarrhea - K52.9? Overall, Srinivasan appears amie te well. Her previous anemia has completely resolved by avoiding NSAIDs and staying on her omeprazole. I did advise her to continue the omeprazole long-term given her known significant hiatal hernia and previous GI bleeding. I did advise her to try to avoid all NSAIDs as well. Based on her excellent clinical appearance and resolution of the anemia, I don't think any further evaluation of that is required. I advised her that she can certainly stay off iron and have some periodic monitoring of her blood counts every 6 months or so. In regard to the new diarrhea that she has been having since this morning this does not seem particularly worrisome by her description. I don't think she needs any testing for that given the acute onset and her good clinical appearance. I did advise her stay on a very bland diet and stay hydrated, and to call me if symptoms persist or worsen in which case we would want to obtain some stool specimens. If things otherwise remain well I advised Srinivasan to see me on a p.r.n. basis. Srinivasan and Jimena were both very comfortable with this plan. Thank you again for allowing me to participate in Srinivasan's care. I shall continue to keep you advised of her progress. Plan: * Treatment: 2.?Others? Continue Omeprazole Capsule Delayed Release, 40 MG, 1, Oral.?? * Procedure Codes:?1036F TOBAC CO [id number] BP SCR NOT PRFRM REC REASON NOS * Preventive Medicine:? ??Counseling:?Care goal follow-up plan:?Above Normal BMI Follow-up?Giving encouragement to exercise,?BMI management provided?Yes.? ??Urinary Incontinence:?Urinary Incontinence?Assessment:?Present,?Plan of care documented:?Yes,?Type of plan of care:?Lifestyle interventions.? * Follow Up:?prn * * Sign off status: Completed true * Provider:?Mukesh Bearden MD Date:? 024 Generated for Elieser vasquez/Jairo/Aprilitting on:?08/18/2024 03:32 PM EDT History and Physical Notes * HPI (History of Present Illness) Category Sub-Category Detail Notes Category Not es incontinence I saw Srinivasan in followup today in regard to her hiatal hernia, gastritis, and anemia. She is accompanied by her SCREEN PRINTING MACHINE OPERATOR HELPER, Jimena. I last saw Srinivasan in April of 2023 when she was admitted with a hemoglobin of 7.2. Her workup with an upper endoscopy and colonoscopy revealed her known hiatal hernia with associated erosions within the hiatal hernia, as well as antral gastritis. Gastric biopsies were negative for H. pylori. Duodenal biopsies were negative for celiac disease. A colonoscopy on that day was unremarkable. Since the hospitalization she was on oral iron but stopped that due to some GI upset. She has remain off of NSAIDs other than Celebrex, and has remained On her omeprazole. Her blood work from just last week revealed a hemoglobin of 14.0. She is presently feeling well. She did have a couple of episodes of diarrhea this morning but prior to that had been feeling very well with regular bowel movements and good appetite. She denies any hematochezia nor melena. She denies any significant heartburn or dysphagia. She denies abdominal pain, jaundice, nor weight loss. She did just had back surgery in July and is recovering from that. In regard to her diarrhea she denies any recent antibiotic use, suspicious food intake, nor ill contacts. Examination Category Sub-Category Detail Notes Category Not es General Examination GENERAL APPEARANCE: pleasant , well [...]
--- OUTSIDE RECORDS SUMMARY | 2024-08-18 15:33 | XMS_ITS | Clinical Summary ---
Author Organization [address] Address [address] [place] [phone] Phone Care Team Providers Care Psychotherapist Social Worker Name Role Phone Leonardo García MD Primary Care Provider [phone] Allergies No known active allergies Medications aspirin [...] 11:18 AM EST - 07/27/2024 1:30 PM [facility] Hospital Encounter [facility] Unit [address] [place] [address] Jomar Booth MD Surendran, Anupama, MD Hypokalemia (Primary Dx); Colon wall thickening; Elevated liver transaminase level Discharge Disposition: [facility] Facility 07/07/2024 Lab Requisition [facility] [address] [place] [phone] Chris Barlow MD Encounter for other general examination 07/06/2024 Lab Requisition [facility] [address] [place] [phone] Chris Barlow MD Encounter for other general examination 07/05/2024 Lab Requisition [facility] [address] [place] [phone] Chris Barlow MD Encounter for other general examination 06/29/2024 Lab Requisition [facility] [address] [place] [phone] Chris Barlow MD Encounter for other general examination 06/23/2024 Lab Requisition [facility] Lab [address] [place] [phone] Chris Barlow MD Encounter for other general examination 06/22/2024 Lab Requisition [facility] [address] [place] [phone] Chris Barlow MD Encounter for other general examination 06/21/2024 Lab Requisition [facility] [address] [place] [phone] Chris Barlow MD Encounter for other general [...] DECOMPRESSION; Surgeon: Emeka Lopez MD; Location: [facility] MAIN OPERATING ROOM; Service: Spine; Laterality: Bilateral Posterior; LUMBAR FUSION 08/30/2017 Bilateral Posterior PROCEDURE:LUMBAR FUSION;COMMENT:Procedure: L4 - 5 FUSION SPINE LUMBAR POSTERIOR, INSTRUMENTED ARTHRODESIS; Surgeon: Emeka Lopez MD; Location: [facility] MAIN OPERATING ROOM; Service: Spine; Laterality: Bilateral Posterior; AUTOGRAFT/SPINE SURGERY 08/30/2017 Left PROCEDURE:AUTOGRAFT/SPINE SURGERY;COMMENT:Procedure: AUTOGRAFT BONE SPINE; Surgeon: Emkea Lopez MD; Location: [facility] MAIN OPERATING ROOM; Service: Spine; Laterality: Left; TOTAL KNEE ARTHROPLASTY 01/03/2021 Left PROCEDURE:TOTAL KNEE ARTHROPLASTY TOTAL HIP ARTHROPLASTY 02/16/2022 Left PROCEDURE:TOTAL HIP ARTHROPLASTY;COMMENT:Proce dure: REPLACEMENT TOTAL HIP; Surgeon: Ottoniel Wells MD; Location: [facility] Service: [...] this topic Medical Devices Implanted Type Area Asphalt Distributor Tender Device Identifier Shelf Expiration Date Model / Serial / Lot Cement Bone Surg Simplex Radiopq [facility] [id number] Implanted:Qty: 1 on 02/16/2022 by Ottoniel Wells MD Left: Hip [employer] [id number] 05/03/2023 6191-1-010 / / [id number] Hip Head Delta Biolox 36mm-2.5 [facility] [id number] Implanted:Qty: 1 on 02/16/2022 by Ottoniel Wells MD Left: Hip [employer] [id number] 11/10/2026 6570-0-436 / / [id number] Cement Bone Surg Simplex Radiopq [employer]How[employer] [id number] 092 Implanted:Qty: 1 on 02/16/2022 by Ottoniel Wells MD Left: Hip [employer] [id number] 05/03/2023 6191-1-010 / / [id number] Lp Hex Screw 6.5x30mm Stry[employer]Howm [id number] 78 Implanted:Qty: 1 on 02/16/2022 by Ottoniel Wells MD Left: Hip [employer] [id number] 12/15/2026 6879-0575 / / [id number] Tritanium Cluster Hole Shell 52mm [employer]Howm [id number] Implanted:Qty: 1 on 02/16/2022 by Ottoniel Wells MD Left: Hip [employer] [id number] 09/28/2026 702-04-52E / / [id number] Lp Hex Screw 6.5x20mm Stry-Howm [id number] 57 Implanted:Qty: 1 on 02/16/2022 by Ottoniel Wells MD Left: Hip [employer] [id number] 11/23/2026 4151-1661 / / [id number] Hip Insrt X3 Trident 0d 36mm E Stry-Howm [id number] 921 Implanted:Qty: 1 on 02/16/2022 by Ottoniel Wells MD Left: Hip [employer] [id number] 09/24/2025 623-10-36E / / [id number] Hip Stm Parveen 127 #2 30 124 Stry-Howm [id number] 932 Implanted:Qty: 1 on 02/16/2022 by Ottoniel Wells MD Left: Hip [employer] [id number] 10/21/2026 6057-0230D / / [id number] Plug Bone Sm Str[place]on-How [id number] 871 Implanted:Qty: 1 on 02/16/2022 by Ottoniel Wells MD Left: Hip [employer] [id number] 11/16/2026 6215-5-001 / / [id number] Hip Dist Spacer [employer] #8 Str[place]-Ana [id number] 90 Implanted:Qty: 1 on 02/16/2022 by Ottoniel Wells MD Left: Hip [employer] [id number] 01/19/2027 5850-4807 / / [id number] Procedures Procedure Name Priority Date/Time Associated Diagnosis [...] LAB HEMETOLOGY METHOD 07/27/2024 7:50 AM EST [facility] Monocytes Absolute 0.63 0.20 - 1.00 K/Health system LAB HEMETOLOGY METHOD 07/27/2024 7:50 AM EST [facility] Eosinophils Absolute 0.42 0.00 - 0.50 K/Health system LAB HEMETOLOGY METHOD 07/27/2024 7:50 AM EST [facility] Basophils Absolute 0.07 0.00 - 0.20 K/Health system LAB HEMETOLOGY METHOD 07/27/2024 7:50 AM EST [facility] Immature Granulocytes Absolute 0.02 0.00 - 0.03 K/Health system LAB HEMETOLOGY METHOD 07/27/2024 7:50 AM EST [facility] Blood Venous blood specimen / Unknown Venipuncture / Unknown 07/27/2024 6:22 AM EST 07/27/2024 7:09 AM EST us Jeannie FORMAN LAB BLOOD ORDERABLES Final Result [facility] [address] [place] [address], * (ABNORMAL) Hepatic function panel (07/27/2024 6:22 AM EST) Total Protein 6.0 6.0 - 8.0 g/dL LAB CHEMISTRY METHOD 07/27/2024 7:56 AM EST [facility] Albumin 3.0(L) 3.2 - 5.0 g/dL LAB CHEMISTRY METHOD 07/27/2024 7:56 AM [facility] Total Bilirubin 1.0 0.0 - 1.4 mg/dL LAB CHEMISTRY METHOD 07/27/2024 7:56 AM EST [facility] Bilirubin, Direct 0.4(H) [...] Jeannie FORMAN LAB BLOOD ORDERABLES Final Result [facility] [address] [place] [address], [place] [phone] * (ABNORMAL) Basic metabolic panel (07/27/2024 6:22 [...] 07/27/2024 7:47 AM [facility] eGFR 94 >=60 mL/min/1. 73m2 LAB CHEMISTRY METHOD 07/27/2024 7:47 AM [facility] Comment:Calculation based on the??Chronic Kidney Disease Epidemiology Collaboration (CKD-EPI) equation refit??without adjustment for race. BUN/Creatinine Ratio 20.4 LAB CHEMISTRY METHOD 07/27/2024 7:47 AM [facility] Calcium 9.4 8.5 - 10.5 mg/dL LAB CHEMISTRY METHOD 07/27/2024 7:47 AM [facility] Blood Venous blood specimen / Unknown Venipuncture / Unknown 07/27/2024 6:22 AM EST 07/27/2024 7:10 AM EST us Jeannie FORMAN LAB BLOOD ORDERABLES Final Result [facility] [address] [place] [address], * MR Abdomen wo and w Contrast [...] LAB COAGULATION METHOD 07/26/2024 7:26 AM EST [facility] INR 0.9 LAB COAGULATION METHOD 07/26/2024 7:26 AM EST [facility] Blood Venous blood specimen / Unknown Venipuncture / Unknown 07/26/2024 6:14 AM EST 07/26/2024 6:51 AM EST us Jomar Booth MD LAB BLOOD ORDERABLES Final Result [facility] [address] [place] [address], [place] [phone] * (ABNORMAL) Comprehensive metabolic panel (07/26/2024 6:14 [...] 07/26/2024 7:53 AM [facility] Blood Venous blood specimen / Unknown Venipuncture / Unknown 07/26/2024 6:14 AM EST 07/26/2024 6:50 AM EST us Jomar Booth MD LAB BLOOD ORDERABLES Final Result [facility] [address] [place] [address], * Respiratory virus panel molecular study (07/26/2024 2:05 AM EST) Adenovirus Detection by PCR Not Detected Not Detected LAB MICROBIOLOGY METHOD 07/26/2024 3:02 AM [facility] Influenza A PCR Not Detected Not Detected LAB MICROBIOLOGY METHOD 07/26/2024 3:02 AM [facility] Influenza B PCR Not Detected Not Detected LAB MICROBIOLOGY METHOD 07/26/2024 3:02 AM [facility] Coronavirus 229E Not Detected Not [...] LAB MICROBIOLOGY METHOD 07/26/2024 3:02 AM EST [facility] Chlamydia pneumoniae Not Detected Not Detected LAB MICROBIOLOGY METHOD 07/26/2024 3:02 AM EST [facility] SARS COV-2 Not Detected Not Detected LAB MICROBIOLOGY METHOD 07/26/2024 3:02 AM EST [facility] Swab Structure of right anterior naris / Unknown Non-blood Collection / Unknown 07/26/2024 2:05 AM EST 07/26/2024 2:14 AM EST [facility] - 07/26/2024 3:02 AM EST Testing was performed using the [employer] Respiratory Pathogen PCR Assay. All results must [...] MICROBIOLOGY - GENERAL OR DERABLES Final Result [facility] [address] [place] [address], * US Abdomen Limited (07/26/2024 12:37 AM [...] 9.6 cm in length. 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 Specific Hale Urine 1.040(H) 1.003 - 1.030 LAB URINALYSIS - AUTOMATED METHOD 07/25/2024 8:57 PM [facility] pH, Urine 7.0 5.0 - [...] 07/25/2024 8:57 PM [facility] Urine Urine specimen obtained by clean catch procedure / Unknown Non-blood Collection / Unknown 07/25/2024 7:41 PM EST 07/25/2024 7:59 PM EST us Jomar Booth MD LAB URINE ORDERABLES Final Result [facility] [address] [place] [address], * Jay urine culture tube (07/25/2024 7:41 PM EST) Only the most recent of2 resultswithin the time period is included. Extra Tube Hold for add-ons. 07/25/2024 9:01 PM EST [facility] Comment:Auto resulted. Urine Urine specimen obtained by clean catch procedure / Unknown Non-blood Collection / Unknown 07/25/2024 7:41 PM EST 07/25/2024 7:59 PM EST us Jomar Booth MD LAB URINE ORDERABLES Final Result [facility] [address] [place] [address], * (ABNORMAL) Culture urine (07/25/2024 7:41 PM EST) Only the most recent of2 resultswithin the time period is included. Culture, Urine 50,000-100,000 CFU/mL Escherichia coli(A) JUDIE 07/27/2024 11:55 AM EST [facility] Comment: This is an edited result. Previous organism was Gram negative bacilli on 07/26/2024 at 1325 EST. Urine Urine specimen obtained by clean catch procedure / Unknown Non-blood Collection / Unknown 07/25/2024 7:41 PM EST 07/25/2024 8:57 PM EST Narrative [facility] - 07/27/2024 11:55 AM EST [...] GENERAL ORDERABLES Final Result Performing Organization Address [facility]/ZIP Co de Phone Number [facility] [address] [place] [address], [place] [phone] * Lactate (07/25/2024 7:34 PM EST) [facility] Signature Lactate 1.2 0.4 - 2.0 mmol/L LAB CHEMISTRY METHOD 07/25/2024 8:37 PM EST [facility] Blood Venous blood specimen / Unknown Venipuncture / Unknown 07/25/2024 7:34 PM EST 07/25/2024 7:59 PM EST Kaci Buiny John CAIN LAB BLOOD ORDERABLES Payal l Result Performing Organization Address [facility]/ZIP Co de Phone Number [facility] [address] [place] [address], [place] [phone] * CT Abdomen Pelvis w Contrast (07/25/2024 [...] Chaparro MD on 07/25/2024 17:55:43 Brianna FORMAN [facility] PROCEDURES Final Re sult * (ABNORMAL) Bilirubin duplicate procedure to order (07/25/2024 2:10 PM EST) Total Bilirubin 2.2(H) 0.0 - 1.4 mg/dL LAB CHEMISTRY METHOD 07/25/2024 3:26 PM EST [facility] Bilirubin, Direct 1.4(H) 0.0 - 0.3 mg/dL LAB CHEMISTRY METHOD 07/25/2024 3:26 PM EST [facility] Bilirubin, Indirect 0.8 0.0 - 1.1 mg/dL LAB CHEMISTRY METHOD 07/25/2024 3:26 PM EST [facility] Blood Venous blood specimen / Unknown Venipuncture / Unknown 07/25/2024 2:10 PM EST 07/25/2024 2:23 PM EST Brianna FORMAN LAB BLOOD ORDERABLES Final Result Performing Organization Address [facility]/ZIP Co de Phone Number [facility] [address] [place] [address], [place] [phone] * Hepatitis panel, acute with reflex to confirmation (07/25/2024 2:10 PM EST) Hepatitis B Surface Ag Negative Negative LAB CHEMISTRY METHOD 07/25/2024 7:43 PM EST [facility] Hepatitis A Antibody IgM Negative Negative LAB CHEMISTRY METHOD 07/25/2024 7:43 PM EST [facility] Hep B Core IgM Negative Negative LAB CHEMISTRY METHOD 07/25/2024 7:43 PM EST [facility] Hepatitis C Antibody Negative Negative LAB CHEMISTRY METHOD 07/25/2024 7:43 PM EST [facility] Blood Venous blood specimen / Unknown Venipuncture / Unknown 07/25/2024 2:10 PM EST 07/25/2024 2:23 PM EST Kaci Lopez DO LAB BLOOD ORDERABLES Payal l Result Performing Organization Address City/[facility]/ZIP Co de Phone Number [facility] [address] [place] [address], [place] [phone] * Magnesium (07/25/2024 2:10 PM EST) Only the most recent of5 resultswithin the time period is included. Pathologist [facility] Magnesium 2.0 1.9 - 2.6 mg/dL LAB CHEMISTRY METHOD 07/25/2024 10:55 PM EST [facility] Blood Venous blood specimen / Unknown Venipuncture / Unknown 07/25/2024 2:10 PM EST 07/25/2024 2:23 PM EST Jomar Booth MD LAB BLOOD ORDERABLES Final Result Performing Organization Address [facility] Co de Phone Number [facility] [address] [place] [address], [place] [phone] * Lipase (07/25/2024 2:10 PM EST) [facility] Lipase 21 13 - 75 unit/L LAB CHEMISTRY METHOD 07/25/2024 6:50 PM EST [facility] Blood Venous blood specimen / Unknown Venipuncture / Unknown 07/25/2024 2:10 PM EST 07/25/2024 2:23 PM EST Kaci Lopez DO LAB BLOOD ORDERABLES Payal l Result Performing Organization Address [facility] de Phone Number [facility] [address] [place] [address], [place] [phone] * (ABNORMAL) GGT (07/25/2024 2:10 PM EST) [facility] GGT 933(H) 7 - 64 unit/L LAB CHEMISTRY METHOD 07/25/2024 9:38 PM EST [facility] Blood Venous blood specimen / Unknown Venipuncture / Unknown 07/25/2024 2:10 PM EST 07/25/2024 2:23 PM EST us Jomar Booth MD LAB BLOOD ORDERABLES Final Result Performing Organization Address [facility] Co de Phone Number [facility] [address] [place] [address], [place] [phone] * (ABNORMAL) Acetaminophen level (07/25/2024 2:10 PM EST) [facility] Acetaminophen Level <2.0(L) 10.0 - 30.0 mcg/mL LAB CHEMISTRY METHOD 07/25/2024 6:50 PM EST [facility] Blood Venous blood specimen / Unknown Venipuncture / Unknown 07/25/2024 2:10 PM EST 07/25/2024 2:23 PM EST Kaci Buiny John DO LAB BLOOD ORDERABLES Payal l Result [facility] [address] [place] [address], [place] [phone] * (ABNORMAL) POCT Glucose, blood (07/25/2024 11:26 AM EST) [facility] Glucose POCT 177(H) 70 - 100 mg/dL 07/25/2024 11:27 AM EST [facility] Blood Capillary blood specimen / Unknown 07/25/2024 11:26 AM EST 07/25/2024 11:29 AM EST us Generic Provider Poct LAB POINT OF CARE TEST DOCKED DEVICE UNSOLICITED RESULTS Final Result Performing Organization Address [facility] Co de Phone Number [facility] [address] [place] [address], [place] [phone] from Last 3 Months Insurance MEDICARE [facility] Advance Directives Documents on File Type Date Recorded Patient Tnt Line Supervisor Expl anation Health Care Decision (hx) 02/16/2022 [...] currently active code status orders. Care Teams Psychotherapist Social Worker Relationship Specialty Start Date End Date Leonardo García MD [address] [place] [id number] PCP - General Internal Medicine 06/30/24
--- OUTSIDE RECORDS SUMMARY | 2024-08-18 15:33 | XMS_ITS | Encounter Summary ---
Author Organization [facility] Address [address] [place] [address] Care Team Providers Care Engraver Machine Name Role Phone Leonardo García MD Primary Care Provider Reason for Visit * Reason Comments Abnormal Labs * Auth/Cert (Routine) Specialty Diagnoses / Procedures Referred By Contac t Referred To Contact Diagnoses Hypokalemia Elevated LFTs Colon wall thickening Elevated liver transaminase level Procedures [facility] IP/OBS CARE INITIAL MODERATE LEVEL PER DAY . Jomar Booth MD [address] [place] [phone] Phone: tel: fax: [facility] Urology Unit [address] [place] [phone] Phone: tel: Referral ID Status Reason Start Date Expiration Date Visits Re quested Visits Authorized [id number] 1 1 Encounter Details Date Type Department Care Team (Latest Contact Info) Description 07/25/2024 11:18 AM EST - 07/27/2024 1:30 PM EST Hospital Encounter [facility] Unit [address] [place] [phone] Jomar Booth MD [address] [place] [address] Tammie Lewis MD [address] [place] [phone] Hypokalemia (Primary Dx); Colon wall thickening; Elevated liver transaminase level Discharge Disposition: [facility] Facility Social History Tobacco Use Types Packs/Day [...] with exception that she thought she was [facility] instead of [facility]. She did not want to converse much and did not respond when asked about medication. She currently resides at [facility]. Vitals are as follows: Temperature of [...] will be transferred to the care of [facility] staff for further management of their elevated [...] baseline. Repeat LFTs in 3 days at [facility]. Avoid hepatotoxins. As for question of colitison CT she is without any lower abdominal pain, diarrhea, fever. Lactate was WNL 1.2. Low suspicion for colitis. Plan is for her to transfer back to [facility] on 07/27. Hypokalemia: Potassium on [...] Neurological Exam: Alert and oriented to person, [facility] and 2024 Psychiatric: Stable mood and [...] mouth 1 (one) time each day. 07/27/2024 aspirin 81 mg chewable tablet Chew 1 tablet (81 mg total) 1 (one) time each day at the same time. 07/19/2024 atorvastatin (LIPITOR) 80 mg tablet Take 1 tablet (80 mg total) by mouth 1 (one) time each day. HOLD THIS MEDICATION UNTIL LIVER FUNCTION TESTS IMPROVE AND YOU ARE INSTRUCTED TO RESUME 07/27/2024 baclofen (LIORESAL) 10 mg tablet Take 1 [...] Disposition Code Departure Means Destination Comment s [facility] Facility documented in this encounter Progress Notes * Luna Miller RN - 07/27/2024 3:34 PM EST 07/27/24 1534 Transportation Transportation at discharge [facility] providing transportation [place] What day is the transport expected? 07/27/24 What time is the transport expected? 1330 Final Discharge Disposition [facility] Facility Pt returned to [facility]. Pt's daughter notified of d/c and agreed with plan * Amber Varela - 07/27/2024 1:30 PM EST SPIRITUAL CARE Date/Time:07/27/24 at 1:30 PM EST Type of Visit: Initial Visit and Conceptor Rounding Reason for Visit: Spiritual/Emotional Support and Spiritual Assessment Time Spent: 15 Minutes Location: [address] [place] [address] Sacramental Encounters: Sacrament of Sick-Anointing: Anointed Spiritual [...] quality of care given and caregivers. Holley taoism is Hoahaoism. Voiced desire to receive anointing of the [...] usually? Transcendence Do you have a particular taoism, holley, or spirituality? Is your taoism/spirituality/holley challenged by what is happening to you [...] Neurological Exam: Alert and oriented to person, [facility] and 2024 Psychiatric: Stable mood and [...] Emergency contact is the patient's daughter, Yamel [phone] and Cassandra [phone]. Family updated at bedside by attending MD [...] Living Arrangements Other (Comment) Type of Residence [facility] Care Facility Name [facility] Assistive Devices Walker Support Systems Children;Immediate family;Friends Medication Coverage Has Med Coverage Under Insurance Plan Yes Medication Affordability No concerns related to payment for meds Anticipated Discharge Needs Discipline following for SNF placement Seo EngineerField Specialist Transportation at discharge Ambulance [facility] met with pt and daughter Cassandra at bedside. Daughter Cassandra confirmed that pt was recently at respite at the [facility] and had a fall. Pt has since been at [facility] for rehab. Plan is to return [...] Shift Summary: alert and pleasantly confused, from [facility], viral panel negative, abd U/S complated, pt awaiting MRCP * Nina Crocker RN - 07/25/2024 9:27 PM EST ED RN HANDOFF (All Lui Below Must Be Completed) Reason/Diagnosis for Admission: Type of Admission: [x] Medsurg, [] Telemetry Already in a Hospital Bed: [] Yes / [x] No Room Considerations/Precautions (ex: fever, diarrhea, or any infectious concerns): [] Yes / [x] No Gold Tooler: [] Yes / [x] No If YES, Cardiac Rhythm: [] NSR, [] SB, [] ST, [] A-FIB, [] A-Flutter, [] Pacemaker, [] 1st Degree HB, [] 2nd Degree HB, [] 3rd Degree HB Reason for Gold Tooler: VS: Visit Vitals BP (!) 186/99 (BP [...] IS PROXY IS ALSO IN HOSPITAL. TEL: [phone] OKAY TO CALL ANYTIME. Nina Crocker RN 07/25/24 3524 * Tayo Gomez RN - 07/25/2024 11:24 AM EST ANDREAA from [facility] with concerns of increased liver panel. Patient complaining of dizziness, and abdominal pain. ? Biliary obstruction. Fsbg 46 for EMS * Bella Smith RN - 07/25/2024 11:[address] Perez from [facility] called and states send the pt in for ? Biliary obstruction, jaundice. States to call with any questions [phone] or cell # [phone] Bella Smith RN 07/25/24 1587 * DICKSON Naranjo - 07/25/2024 11:12 AM [...] with Levaquin on July 18 presenting from [facility] evaluation of increased liver function tests. Specific [...] BONE SPINE; Surgeon: Emeka Lopez MD; Location: [facility] MAIN OPERATING ROOM; Service: Spine; Laterality: Left; BACK SURGERY PROCEDURE:BACK SURGERY CATARACT EXTRACTION W/ INTRAOCULAR LENS IMPLANT PROCEDURE:CATARACT EXTRACTION W/ INTRAOCULAR LENS IMPLANT DENTAL SURGERY PROCEDURE:DENTAL SURGERY;COMMENT:wisdom teeth LUMBAR FUSION Bilateral Posterior 08/30/2017 PROCEDURE:LUMBAR FUSION;COMMENT:Procedure: L4 - 5 FUSION SPINE LUMBAR POSTERIOR, INSTRUMENTED ARTHRODESIS; Surgeon: Emeka Lopez MD; Location: [facility] MAIN OPERATING ROOM; Service: Spine; Laterality:Bilateral Posterior; LUMBAR LAMINECTOMY Bilateral Posterior 08/30/2017 PROCEDURE:LUMBAR LAMINECTOMY;COMMENT:Procedure: L4, L5 LAMINECTOMY DECOMPRESSION; Surgeon: Emeka Lopez MD; Location: [facility] MAIN OPERATING ROOM; Service: Spine; Laterality: Bilateral Posterior; ROTATOR CUFF REPAIR 2013 PROCEDURE:ROTATOR CUFF REPAIR TONSILLECTOMY PROCEDURE:TONSILLECTOMY TOTAL HIP ARTHROPLASTY Left 02/16/2022 PROCEDURE:TOTAL HIP ARTHROPLASTY;COMMENT:Procedure: REPLACEMENT TOTAL HIP; Surgeon: Ottoniel Wells MD; Location: [facility] Service: Orthopedics; Laterality: [...] Procedure Abnormality Status --------- ------ CBC auto differential[[id number]] Final result Please view results for these [...] Abnormality Status --------- ------ Urinalysis with reflex m...[[id number]] In process Jay urine culture tube[[id number]] In process Please view results for these [...] states that her mother has been at [facility] for approximately 10 days after having spinal fusion performed at [facility] on June [address] Shaw. [RO] 8067 CT imaging reveals colonic thickening, consistent with [...] PHYSICAL Please contact author [DICKSON Alvarez] via [employer]. Patient: Crystal Barrera Admission Date/Time: 07/25/2024 11:18 [...] with exception that she thought she was [facility] instead of [facility]. She did not want to converse much and did not respond when asked about medication. She currently resides at [facility]. Vitals are as follows: Temperature of [...] will be transferred to the care of [facility] staff for further management of their elevated [...] BONE SPINE; Surgeon: Emeka Lopez MD; Location: [facility] MAIN OPERATING ROOM; Service: Spine; Laterality: Left; BACK SURGERY PROCEDURE:BACK SURGERY CATARACT EXTRACTION W/ INTRAOCULAR LENS IMPLANT PROCEDURE:CATARACT EXTRACTION W/ INTRAOCULAR LENS IMPLANT DENTAL SURGERY PROCEDURE:DENTAL SURGERY;COMMENT:wisdom teeth LUMBAR FUSION Bilateral Posterior 08/30/2017 PROCEDURE:LUMBAR FUSION;COMMENT:Procedure: L4 - 5 FUSION SPINE LUMBAR POSTERIOR, INSTRUMENTED ARTHRODESIS; Surgeon: Emeka Lopez MD; Location: [facility] MAIN OPERATING ROOM; Service: Spine; Laterality:Bilateral Posterior; LUMBAR LAMINECTOMY Bilateral Posterior 08/30/2017 PROCEDURE:LUMBAR LAMINECTOMY;COMMENT:Procedure: L4, L5 LAMINECTOMY DECOMPRESSION; Surgeon: Emeka Lopez MD; Location: [facility] MAIN OPERATING ROOM; Service: Spine; Laterality: Bilateral Posterior; ROTATOR CUFF REPAIR 2013 PROCEDURE:ROTATOR CUFF REPAIR TONSILLECTOMY PROCEDURE:TONSILLECTOMY TOTAL HIP ARTHROPLASTY Left 02/16/2022 PROCEDURE:TOTAL HIP ARTHROPLASTY;COMMENT:Procedure: REPLACEMENT TOTAL HIP; Surgeon: Ottoniel Wells MD; Location: [facility] ([facility]); Service: Orthopedics; Laterality: [...] onward) Start Ordered 07/25/24 2250 Adult diet [facility]; General; Regular Diet effective 0500 Question Answer Comment Location [facility] Diet Type (req) General General Diet Regular 07/25/24 2249 [x] Lines, tubes, drains: IV access [x] Medication reconciliation Health Care proxy with Phone number emergency contact is daughter Yamel, and daughter Cassandra, Cosigned by Jomar Botoh MD at 07/26/2024 10:05 PM EST Associated [...] K/mcL LAB HEMETOLOGY METHOD 07/27/2024 7:50 AM [facility] RBC 3.80 3.80 - 4.80 M/mcL LAB HEMETOLOGY METHOD 07/27/2024 7:50 AM [facility] Hemoglobin 11.8 11.5 - 16.0 g/dL LAB HEMETOLOGY METHOD 07/27/2024 7:50 AM [facility] Hematocrit 36.3 35.0 - 47.0 % LAB HEMETOLOGY METHOD 07/27/2024 7:50 AM [facility] MCV 94.5 79.0 - 98.0 FL LAB HEMETOLOGY METHOD 07/27/2024 7:50 AM [facility] MCH 30.7 27.0 - 32.0 pcg LAB HEMETOLOGY METHOD 07/27/2024 7:50 AM [facility] MCHC 32.5 32.0 - 37.0 g/dL LAB HEMETOLOGY METHOD 07/27/2024 7:50 AM [facility] RDW 13.9 11.0 - 15.0 % LAB HEMETOLOGY METHOD 07/27/2024 7:50 AM [facility] Platelets 300 130 - 400 K/mcL LAB HEMETOLOGY METHOD 07/27/2024 7:50 AM [facility] MPV 9.7 7.0 - 11.0 FL LAB HEMETOLOGY METHOD 07/27/2024 7:50 AM [facility] NRBC 0.0 <1.0 % LAB HEMETOLOGY METHOD 07/27/2024 7:50 AM [facility] NRBC Absolute 0.00 <0.10 K/mcL LAB HEMETOLOGY METHOD 07/27/2024 7:50 AM [facility] Neutrophils Relative 55.9 % LAB HEMETOLOGY METHOD 07/27/2024 7:50 AM [facility] Lymphocytes Relative 26.7 % LAB HEMETOLOGY METHOD 07/27/2024 7:50 AM [facility] Monocytes Relative 9.6 % LAB HEMETOLOGY METHOD 07/27/2024 7:50 AM [facility] Eosinophils Relative 6.4 % LAB HEMETOLOGY METHOD 07/27/2024 7:50 AM [facility] Basophils Relative 1.1 % LAB HEMETOLOGY METHOD 07/27/2024 7:50 AM [facility] Immature Granulocytes Relative 0.3 % LAB HEMETOLOGY METHOD 07/27/2024 7:50 AM [facility] Neutrophils Absolute 3.66 1.50 - 7.00 K/mcL LAB HEMETOLOGY METHOD 07/27/2024 7:50 AM [facility] Lymphocytes Absolute 1.75 1.00 - 5.00 K/mcL LAB HEMETOLOGY METHOD 07/27/2024 7:50 AM [facility] Monocytes Absolute 0.63 0.20 - 1.00 K/mcL LAB HEMETOLOGY METHOD 07/27/2024 7:50 AM [facility] Eosinophils Absolute 0.42 0.00 - 0.50 K/mcL LAB HEMETOLOGY METHOD 07/27/2024 7:50 AM EST [facility] Basophils Absolute 0.07 0.00 - 0.20 K/mcL LAB HEMETOLOGY METHOD 07/27/2024 7:50 AM [facility] Immature Granulocytes Absolute 0.02 0.00 - 0.03 K/mcL LAB HEMETOLOGY METHOD 07/27/2024 7:50 AM EST [facility] Blood Venous blood specimen / Unknown Venipuncture / Unknown 07/27/2024 6:22 AM EST 07/27/2024 7:09 AM EST Jeannie FORMAN LAB BLOOD ORDERABLES Final Result [facility] [address] [place] [address], * (ABNORMAL) Hepatic function panel (07/27/2024 6:22 AM EST) Total Protein 6.0 6.0 - 8.0 g/dL LAB CHEMISTRY METHOD 07/27/2024 7:56 AM [facility] Albumin 3.0(L) 3.2 - 5.0 g/dL LAB CHEMISTRY METHOD 07/27/2024 7:56 AM [facility] Total Bilirubin 1.0 0.0 - 1.4 mg/dL LAB CHEMISTRY METHOD 07/27/2024 7:56 AM [facility] Bilirubin, Direct 0.4(H) 0.0 - 0.3 mg/dL LAB CHEMISTRY METHOD 07/27/2024 7:56 AM [facility] Bilirubin, Indirect 0.6 0.0 - 1.1 mg/dL LAB CHEMISTRY METHOD 07/27/2024 7:56 AM [facility] ALT (SGPT) 362(H) 10 - 60 unit/L LAB CHEMISTRY METHOD 07/27/2024 7:56 AM [facility] AST (SGOT) 115(H) 10 - 42 unit/L LAB CHEMISTRY METHOD 07/27/2024 7:56 AM [facility] Alkaline Phosphatase 912(H) 42 - 121 unit/L LAB CHEMISTRY METHOD 07/27/2024 7:56 AM [facility] Blood Venous blood specimen / Unknown Venipuncture / Unknown 07/27/2024 6:22 AM EST 07/27/2024 7:10 AM EST us Jeannie FORMAN LAB BLOOD ORDERABLES Final Result [facility] [address] [place] [address], [place] [phone] * (ABNORMAL) Basic metabolic panel (07/27/2024 6:22 AM EST) Sodium 137 133 - 145 mmol/L LAB CHEMISTRY METHOD 07/27/2024 7:47 AM [facility] Potassium 3.6 3.5 - 5.5 mmol/L LAB CHEMISTRY METHOD 07/27/2024 7:47 AM [facility] Chloride 103 96 - 110 mmol/L LAB CHEMISTRY METHOD 07/27/2024 7:47 AM [facility] CO2 29 21 - 32 mmol/L LAB CHEMISTRY METHOD 07/27/2024 7:47 AM [facility] Anion Gap 5 3 - 11 LAB CHEMISTRY METHOD 07/27/2024 7:47 AM [facility] Glucose 110(H) 70 - 100 mg/dL LAB CHEMISTRY METHOD 07/27/2024 7:47 AM [facility] BUN 10 5 - 25 mg/dL LAB CHEMISTRY METHOD 07/27/2024 7:47 AM [facility] Creatinine 0.49(L) 0.50 - 1.10 mg/dL LAB CHEMISTRY METHOD 07/27/2024 7:47 AM EST [facility] eGFR 94 >=60 mL/min/1. 73m2 LAB CHEMISTRY METHOD 07/27/2024 7:47 AM EST [facility] Comment:Calculation based on the??Chronic Kidney Disease Epidemiology Collaboration (CKD-EPI) equation refit??without adjustment for race. BUN/Creatinine Ratio 20.4 LAB CHEMISTRY METHOD 07/27/2024 7:47 AM EST [facility] Calcium 9.4 8.5 - 10.5 mg/dL LAB CHEMISTRY METHOD 07/27/2024 7:47 AM EST [facility] Blood Venous blood specimen / Unknown Venipuncture / Unknown 07/27/2024 6:22 AM EST 07/27/2024 7:10 AM EST us Jeannie FORMAN LAB BLOOD ORDERABLES Final Result [facility] [address] [place] [address], [place] [phone] * MR Abdomen wo and w Contrast [...] K/mcL LAB HEMETOLOGY METHOD 07/26/2024 7:18 AM [facility] RBC 4.10 3.80 - 4.80 M/mcL LAB HEMETOLOGY METHOD 07/26/2024 7:18 AM [facility] Hemoglobin 12.5 11.5 - 16.0 g/dL LAB HEMETOLOGY METHOD 07/26/2024 7:18 AM [facility] Hematocrit 38.3 35.0 - 47.0 % LAB HEMETOLOGY METHOD 07/26/2024 7:18 AM [facility] MCV 93.9 79.0 - 98.0 FL LAB HEMETOLOGY METHOD 07/26/2024 7:18 AM [facility] MCH 30.6 27.0 - 32.0 pcg LAB HEMETOLOGY METHOD 07/26/2024 7:18 AM [facility] MCHC 32.6 32.0 - 37.0 g/dL LAB HEMETOLOGY METHOD 07/26/2024 7:18 AM [facility] RDW 13.9 11.0 - 15.0 % LAB HEMETOLOGY METHOD 07/26/2024 7:18 AM [facility] Platelets 308 130 - 400 K/mcL LAB HEMETOLOGY METHOD 07/26/2024 7:18 AM [facility] MPV 9.7 7.0 - 11.0 FL LAB HEMETOLOGY METHOD 07/26/2024 7:18 AM [facility] NRBC 0.0 <1.0 % LAB HEMETOLOGY METHOD 07/26/2024 7:18 AM [facility] NRBC Absolute 0.00 <0.10 K/mcL LAB HEMETOLOGY METHOD 07/26/2024 7:18 AM [facility] Neutrophils Relative 51.3 % LAB HEMETOLOGY METHOD 07/26/2024 7:18 AM [facility] Lymphocytes Relative 30.7 % LAB HEMETOLOGY METHOD 07/26/2024 7:18 AM [facility] Monocytes Relative 9.5 % LAB HEMETOLOGY METHOD 07/26/2024 7:18 AM [facility] Eosinophils Relative 7.4 % LAB HEMETOLOGY METHOD 07/26/2024 7:18 AM [facility] Basophils Relative 0.7 % LAB HEMETOLOGY METHOD 07/26/2024 7:18 AM [facility] Immature Granulocytes Relative 0.4 % LAB HEMETOLOGY METHOD 07/26/2024 7:18 AM [facility] Neutrophils Absolute 2.91 1.50 - 7.00 K/mcL LAB HEMETOLOGY METHOD 07/26/2024 7:18 AM EST [facility] Lymphocytes Absolute 1.74 1.00 - 5.00 K/[facility] LAB HEMETOLOGY METHOD 07/26/2024 7:18 AM [facility] Monocytes Absolute 0.54 0.20 - 1.00 K/[facility] LAB HEMETOLOGY METHOD 07/26/2024 7:18 AM EST [facility] Eosinophils Absolute 0.42 0.00 - 0.50 K/[facility] LAB HEMETOLOGY METHOD 07/26/2024 7:18 AM [facility] Basophils Absolute 0.04 0.00 - 0.20 K/[facility] LAB HEMETOLOGY METHOD 07/26/2024 7:18 AM [facility] Immature Granulocytes Absolute 0.02 0.00 - 0.03 K/[facility] LAB HEMETOLOGY METHOD 07/26/2024 7:18 AM [facility] Blood Venous blood specimen / Unknown Venipuncture / Unknown 07/26/2024 6:14 AM EST 07/26/2024 6:54 AM EST us Jomar Booth MD LAB BLOOD ORDERABLES Final Result [facility] [address] [place] [address], * (ABNORMAL) Comprehensive metabolic panel (07/26/2024 6:14 AM EST) Sodium 138 133 - 145 mmol/L LAB CHEMISTRY METHOD 07/26/2024 7:53 AM [facility] Potassium 3.4(L) 3.5 - 5.5 mmol/L LAB CHEMISTRY METHOD 07/26/2024 7:53 AM [facility] Chloride 103 96 - 110 mmol/L LAB CHEMISTRY METHOD 07/26/2024 7:53 AM [facility] CO2 28 21 - 32 mmol/L LAB CHEMISTRY METHOD 07/26/2024 7:53 AM [facility] Anion Gap 7 3 - 11 LAB CHEMISTRY METHOD 07/26/2024 7:53 AM [facility] Glucose 103(H) 70 - 100 mg/dL LAB CHEMISTRY METHOD 07/26/2024 7:53 AM [facility] BUN 10 5 - 25 mg/dL LAB CHEMISTRY METHOD 07/26/2024 7:53 AM [facility] Creatinine 0.62 0.50 - 1.10 mg/dL LAB CHEMISTRY METHOD 07/26/2024 7:53 AM [facility] eGFR 89 >=60 mL/min/1. 73m2 LAB CHEMISTRY METHOD 07/26/2024 7:53 AM [facility] Comment:Calculation based on the??Chronic Kidney Disease Epidemiology Collaboration (CKD-EPI) equation refit??without adjustment for race. BUN/Creatinine Ratio 16.1 LAB CHEMISTRY METHOD 07/26/2024 7:53 AM [facility] Calcium 9.4 8.5 - 10.5 mg/dL LAB CHEMISTRY METHOD 07/26/2024 7:53 AM [facility] AST (SGOT) 196(H) 10 - 42 unit/L LAB CHEMISTRY METHOD 07/26/2024 7:53 AM [facility] ALT (SGPT) 538(H) 10 - 60 unit/L LAB CHEMISTRY METHOD 07/26/2024 7:53 AM [facility] Alkaline Phosphatase 986(H) 42 - 121 unit/L LAB CHEMISTRY METHOD 07/26/2024 7:53 AM [facility] Total Protein 6.5 6.0 - 8.0 g/dL LAB CHEMISTRY METHOD 07/26/2024 7:53 AM [facility] Albumin 3.3 3.2 - 5.0 g/dL LAB CHEMISTRY METHOD 07/26/2024 7:53 AM [facility] Total Bilirubin 1.5(H) 0.0 - 1.4 mg/dL LAB CHEMISTRY METHOD 07/26/2024 7:53 AM EST [facility] Blood Venous blood specimen / Unknown Venipuncture / Unknown 07/26/2024 6:14 AM EST 07/26/2024 6:50 AM EST Jomar Booth MD LAB BLOOD ORDERABLES Final Result Performing Organization Address City/[facility]/ZIP Co de Phone Number [facility] [address] [place] [address], [place] [phone] * Prothrombin time with INR (07/26/2024 6:14 AM EST) [facility] Protime 11.3 10.6 - 13.9 sec LAB COAGULATION METHOD 07/26/2024 7:26 AM [facility] INR 0.9 LAB COAGULATION METHOD 07/26/2024 7:26 AM [facility] Blood Venous blood specimen / Unknown Venipuncture / Unknown 07/26/2024 6:14 AM EST 07/26/2024 6:51 AM EST us Jomar Booth MD LAB BLOOD ORDERABLES Final Result Performing Organization Address [facility]/ZIP Co de Phone Number [facility] [address] [place] [address], [place] [phone] * Respiratory virus panel molecular study (07/26/2024 2:05 AM EST) [facility] Adenovirus Detection by PCR Not Detected Not Detected LAB MICROBIOLOGY METHOD 07/26/2024 3:02 AM EST [facility] Influenza A PCR Not Detected Not Detected LAB MICROBIOLOGY METHOD 07/26/2024 3:02 AM [facility] Influenza B PCR Not Detected Not Detected LAB MICROBIOLOGY METHOD 07/26/2024 3:02 AM EST [facility] Coronavirus 229E Not Detected Not Detected LAB MICROBIOLOGY METHOD 07/26/2024 3:02 AM [facility] Coronavirus HKU1 Not Detected Not Detected LAB MICROBIOLOGY METHOD 07/26/2024 3:02 AM [facility] Coronavirus OC43 Not Detected Not Detected LAB MICROBIOLOGY METHOD 07/26/2024 3:02 AM [facility] Coronavirus NL63 Not Detected Not Detected LAB MICROBIOLOGY METHOD 07/26/2024 3:02 AM [facility] Parainfluenza Virus 1 Not Detected Not Detected LAB MICROBIOLOGY METHOD 07/26/2024 3:02 AM [facility] Parainfluenza Virus 2 Not Detected Not Detected LAB MICROBIOLOGY METHOD 07/26/2024 3:02 AM [facility] Parainfluenza Virus 3 Not Detected Not Detected LAB MICROBIOLOGY METHOD 07/26/2024 3:02 AM [facility] Parainfluenza Virus 4 Not Detected Not Detected LAB MICROBIOLOGY METHOD 07/26/2024 3:02 AM [facility] RSV PCR Not Detected Not Detected LAB MICROBIOLOGY METHOD 07/26/2024 3:02 AM [facility] Human Metapneumovirus A and B Not Detected Not Detected LAB MICROBIOLOGY METHOD 07/26/2024 3:02 AM [facility] Rhinovirus/Entero virus Not Detected Not Detected LAB MICROBIOLOGY METHOD 07/26/2024 3:02 AM [facility] Bordetella pertussis Not Detected Not Detected LAB MICROBIOLOGY METHOD 07/26/2024 3:02 AM [facility] Bordetella parapertussis Not Detected Not Detected LAB MICROBIOLOGY METHOD 07/26/2024 3:02 AM [facility] Mycoplasma pneumo by PCR Not Detected Not Detected LAB MICROBIOLOGY METHOD 07/26/2024 3:02 AM [facility] Chlamydia pneumoniae Not Detected Not Detected LAB MICROBIOLOGY METHOD 07/26/2024 3:02 AM [facility] SARS COV-2 Not Detected Not Detected LAB MICROBIOLOGY METHOD 07/26/2024 3:02 AM [facility] Swab Structure of right anterior naris / Unknown Non-blood Collection / Unknown 07/26/2024 2:05 AM EST 07/26/2024 2:14 AM EST [facility] - 07/26/2024 3:02 AM EST Testing was performed using the [employer] Respiratory Pathogen PCR Assay. All results must [...] MICROBIOLOGY - GENERAL OR DERABLES Final Result [facility] [address] [place] [address], [place] [phone] * (ABNORMAL) Basic metabolic panel (07/26/2024 1:06 AM EST) Sodium 140 133 - 145 mmol/L LAB CHEMISTRY METHOD 07/26/2024 2:07 AM [facility] Potassium 3.5 3.5 - 5.5 mmol/L LAB CHEMISTRY METHOD 07/26/2024 2:07 AM [facility] Chloride 105 96 - 110 mmol/L LAB CHEMISTRY METHOD 07/26/2024 2:07 AM [facility] CO2 28 21 - 32 mmol/L LAB CHEMISTRY METHOD 07/26/2024 2:07 AM [facility] Anion Gap 7 3 - 11 LAB CHEMISTRY METHOD 07/26/2024 2:07 AM [facility] Glucose 143(H) 70 - 100 mg/dL LAB CHEMISTRY METHOD 07/26/2024 2:07 AM [facility] BUN 9 5 - 25 mg/dL LAB CHEMISTRY METHOD 07/26/2024 2:07 AM EST [facility] Creatinine 0.58 0.50 - 1.10 mg/dL LAB CHEMISTRY METHOD 07/26/2024 2:07 AM EST [facility] eGFR 90 >=60 mL/min/1. 73m2 LAB CHEMISTRY METHOD 07/26/2024 2:07 AM EST [facility] Comment:Calculation based on the??Chronic Kidney Disease Epidemiology Collaboration (CKD-EPI) equation refit??without adjustment for race. BUN/Creatinine Ratio 15.5 LAB CHEMISTRY METHOD 07/26/2024 2:07 AM EST [facility] Calcium 8.9 8.5 - 10.5 mg/dL LAB CHEMISTRY METHOD 07/26/2024 2:07 AM EST [facility] Blood Venous blood specimen / Unknown Venipuncture / Unknown 07/26/2024 1:06 AM EST 07/26/2024 1:28 AM EST us Nayely FORMAN LAB BLOOD ORDERABLES Final Re sult [facility] [address] [place] [address], [place] [phone] * [place] Abdomen Limited (07/26/2024 12:37 AM [...] Escherichia coli(A) JUDIE 07/27/2024 11:55 AM EST [facility] Comment: This is an edited result. Previous organism was Gram negative bacilli on 07/26/2024 at 1325 EST. Urine Urine specimen obtained by clean catch procedure / Unknown Non-blood Collection / Unknown 07/25/2024 7:41 PM EST 07/25/2024 8:57 PM EST Narrative [facility] - 07/27/2024 11:55 AM [...] GENERAL ORDERABLES Final Result Performing Organization Address [facility]/ZIP Co de Phone Number [facility] [address] [place] [address], [place] [phone] * Jay urine culture tube (07/25/2024 7:41 PM EST) [facility] Extra Tube Hold for add-ons. 07/25/2024 9:01 PM EST [facility] Comment:Auto resulted. Urine Urine specimen obtained by clean catch procedure / Unknown Non-blood Collection / Unknown 07/25/2024 7:41 PM EST 07/25/2024 7:59 PM EST Jomar Booth MD LAB URINE ORDERABLES Final Result Performing Organization Address [facility]/ZIP Co de Phone Number [facility] [address] [place] [address], [place] [phone] * (ABNORMAL) Urinalysis with reflex microscopic and culture (07/25/2024 7:41 PM EST) Pathologist [facility] Specific [place] Urine 1.040(H) 1.003 - 1.030 LAB URINALYSIS - AUTOMATED METHOD 07/25/2024 8:57 PM EST [facility] pH, Urine 7.0 5.0 - 8.0 pH LAB URINALYSIS - AUTOMATED METHOD 07/25/2024 8:57 PM [facility] Leukocytes, Urine Small(A) Negative LAB URINALYSIS - AUTOMATED METHOD 07/25/2024 8:57 PM [facility] Nitrite, Urine Negative Negative LAB URINALYSIS - AUTOMATED METHOD 07/25/2024 8:57 PM [facility] Protein, Urine Negative <=Trace mg/dL LAB URINALYSIS - AUTOMATED METHOD 07/25/2024 8:57 PM [facility] Glucose, Urine Negative Negative mg/dL LAB URINALYSIS - AUTOMATED METHOD 07/25/2024 8:57 PM [facility] Ketones, Urine Trace(A) Negative mg/dL LAB URINALYSIS - AUTOMATED METHOD 07/25/2024 8:57 PM [facility] Urobilinogen, Urine 1.0 0.2 - 1.0 mg/dL LAB URINALYSIS - AUTOMATED METHOD 07/25/2024 8:57 PM [facility] Bilirubin, Urine Negative Negative LAB URINALYSIS - AUTOMATED METHOD 07/25/2024 8:57 PM [facility] Blood, Urine Negative Negative LAB URINALYSIS - AUTOMATED METHOD 07/25/2024 8:57 PM [facility] RBC, Urine 1.7 0 - 4 /HPF LAB URINALYSIS - AUTOMATED METHOD 07/25/2024 8:57 PM [facility] WBC, Urine 16.3(H) 0 - 4 /HPF LAB URINALYSIS - AUTOMATED METHOD 07/25/2024 8:57 PM [facility] Squamous Epithelial, Urine >100(H) 0 - 60 /LPF LAB URINALYSIS - AUTOMATED METHOD 07/25/2024 8:57 PM [facility] Bacteria, Urine Few(A) Negative /HPF LAB URINALYSIS - AUTOMATED METHOD 07/25/2024 8:57 PM [facility] Hyaline Casts, Urine 5.6(H) 0 - 3 /LPF LAB URINALYSIS - AUTOMATED METHOD 07/25/2024 8:57 PM EST [facility] Urine Urine specimen obtained by clean catch procedure / Unknown Non-blood Collection / Unknown 07/25/2024 7:41 PM EST 07/25/2024 7:59 PM EST Jomar Booth MD LAB URINE ORDERABLES Final Result Performing Organization Address [facility]/ZIP Co de Phone Number [facility] [address] [place] [address], [place] [phone] * Lactate (07/25/2024 7:34 PM EST) Lactate 1.2 0.4 - 2.0 mmol/L LAB CHEMISTRY METHOD 07/25/2024 8:37 PM EST [facility] Blood Venous blood specimen / Unknown Venipuncture / Unknown 07/25/2024 7:34 PM EST 07/25/2024 7:59 PM EST us Kaci Lopez DO LAB BLOOD ORDERABLES Payal l Result Performing Organization Address [facility]/ZIP Co de Phone Number [facility] [address] [place] [address], [place] [phone] * CT Abdomen Pelvis w Contrast (07/25/2024 [...] LAB CHEMISTRY METHOD 07/25/2024 9:38 PM EST [facility] Blood Venous blood specimen / Unknown Venipuncture / Unknown 07/25/2024 2:10 PM EST 07/25/2024 2:23 PM EST Jomar Booth MD LAB BLOOD ORDERABLES Final Result [facility] [address] [place] [address], [place] [phone] * Magnesium (07/25/2024 2:10 PM EST) Magnesium 2.0 1.9 - 2.6 mg/dL LAB CHEMISTRY METHOD 07/25/2024 10:55 PM EST [facility] Blood Venous blood specimen / Unknown Venipuncture / Unknown 07/25/2024 2:10 PM EST 07/25/2024 2:23 PM EST Jomar Booth MD LAB BLOOD ORDERABLES Final Result Performing Organization Address [facility]/ZIP Co de Phone Number [facility] [address] [place] [address], [place] [phone] * (ABNORMAL) Acetaminophen level (07/25/2024 2:10 PM EST) Pathologist [facility] Acetaminophen Level <2.0(L) 10.0 - 30.0 mcg/mL LAB CHEMISTRY METHOD 07/25/2024 6:50 PM EST [facility] Blood Venous blood specimen / Unknown Venipuncture / Unknown 07/25/2024 2:10 PM EST 07/25/2024 2:23 PM EST Kaci Lopez DO LAB BLOOD ORDERABLES Payal l Result Performing Organization Address [facility]/ZIP Co de Phone Number [facility] [address] [place] [address], [place] [phone] * Hepatitis panel, acute with reflex to confirmation (07/25/2024 2:10 PM EST) Pathologist [facility] Hepatitis B Surface Ag Negative Negative LAB CHEMISTRY METHOD 07/25/2024 7:43 PM EST [facility] Hepatitis A Antibody IgM Negative Negative LAB CHEMISTRY METHOD 07/25/2024 7:43 PM EST [facility] Hep B Core IgM Negative Negative LAB CHEMISTRY METHOD 07/25/2024 7:43 PM EST [facility] Hepatitis C Antibody Negative Negative LAB CHEMISTRY METHOD 07/25/2024 7:43 PM EST [facility] Blood Venous blood specimen / Unknown Venipuncture / Unknown 07/25/2024 2:10 PM EST 07/25/2024 2:23 PM EST Marino Eligio Lopez LAB BLOOD ORDERABLES Payal l Result Performing Organization Address [facility]/ZIP Co de Phone Number [facility] [address] [place] [address], [place] [phone] * Lipase (07/25/2024 2:10 PM EST) [facility] Lipase 21 13 - 75 unit/L LAB CHEMISTRY METHOD 07/25/2024 6:50 PM EST [facility] Blood Venous blood specimen / Unknown Venipuncture / Unknown 07/25/2024 2:10 PM EST 07/25/2024 2:23 PM EST [facility] Eligio Aaron [facility] LAB BLOOD ORDERABLES Payal l Result Performing Organization Address [facility] de Phone Number [facility] [address] [place] [address], [place] [phone] * (ABNORMAL) Bilirubin duplicate procedure to order (07/25/2024 2:10 PM EST) Pathologist [facility] Total Bilirubin 2.2(H) 0.0 - 1.4 mg/dL LAB CHEMISTRY METHOD 07/25/2024 3:26 PM EST [facility] Bilirubin, Direct 1.4(H) 0.0 - 0.3 mg/dL LAB CHEMISTRY METHOD 07/25/2024 3:26 PM EST [facility] Bilirubin, Indirect 0.8 0.0 - 1.1 mg/dL LAB CHEMISTRY METHOD 07/25/2024 3:26 PM EST [facility] Blood Venous blood specimen / Unknown Venipuncture / Unknown 07/25/2024 2:10 PM EST 07/25/2024 2:23 PM EST Brianna FORMAN LAB BLOOD ORDERABLES Final Result [facility] [address] [place] [address], [place] [phone] * (ABNORMAL) Comprehensive metabolic panel (07/25/2024 2:10 PM EST) Sodium 140 133 - 145 mmol/L LAB CHEMISTRY METHOD 07/25/2024 4:02 PM [facility] Potassium 2.9(LL) 3.5 - 5.5 mmol/L LAB CHEMISTRY METHOD 07/25/2024 4:02 PM [facility] Chloride 103 96 - 110 mmol/L LAB CHEMISTRY METHOD 07/25/2024 4:02 PM [facility] CO2 28 21 - 32 mmol/L LAB CHEMISTRY METHOD 07/25/2024 4:02 PM [facility] Anion Gap 9 3 - 11 LAB CHEMISTRY METHOD 07/25/2024 4:02 PM [facility] Glucose 101(H) 70 - 100 mg/dL LAB CHEMISTRY METHOD 07/25/2024 4:02 PM [facility] BUN 10 5 - 25 mg/dL LAB CHEMISTRY METHOD 07/25/2024 4:02 PM [facility] Creatinine 0.62 0.50 - 1.10 mg/dL LAB CHEMISTRY METHOD 07/25/2024 4:02 PM [facility] eGFR 89 >=60 mL/min/1 .73m2 LAB CHEMISTRY METHOD 07/25/2024 4:02 PM [facility] Comment:Calculation based on the??Chronic Kidney Disease Epidemiology Collaboration (CKD-EPI) equation refit??without adjustment for race. BUN/Creatinine Ratio 16.1 LAB CHEMISTRY METHOD 07/25/2024 4:02 PM [facility] Calcium 9.3 8.5 - 10.5 mg/dL LAB CHEMISTRY METHOD 07/25/2024 4:02 PM [facility] AST (SGOT) 328(H) 10 - 42 unit/L LAB CHEMISTRY METHOD 07/25/2024 4:02 PM [facility] ALT (SGPT) 693(H) 10 - 60 unit/L LAB CHEMISTRY METHOD 07/25/2024 4:02 PM [facility] Alkaline Phosphatase 1,054(H) 42 - 121 unit/L LAB CHEMISTRY METHOD 07/25/2024 4:02 PM [facility] Total Protein 6.6 6.0 - 8.0 g/dL LAB CHEMISTRY METHOD 07/25/2024 4:02 PM [facility] Albumin 3.4 3.2 - 5.0 g/dL LAB CHEMISTRY METHOD 07/25/2024 4:02 PM [facility] Total Bilirubin 2.2(H) 0.0 - 1.4 mg/dL LAB CHEMISTRY METHOD 07/25/2024 4:02 PM [facility] Blood Venous blood specimen / Unknown Venipuncture / Unknown 07/25/2024 2:10 PM EST 07/25/2024 2:23 PM EST us Brianna FORMAN LAB BLOOD ORDERABLES Final Result [facility] [address] [place] [address], * Prothrombin time with INR (07/25/2024 12:49 PM EST) Protime 13.1 10.6 - 13.9 sec LAB COAGULATION METHOD 07/25/2024 1:02 PM [facility] INR 1.0 LAB COAGULATION METHOD 07/25/2024 1:02 PM [facility] Blood Venous blood specimen / Unknown Venipuncture / Unknown 07/25/2024 12:49 PM EST 07/25/2024 12:53 PM EST Brianna FORMAN LAB BLOOD ORDERABLES Final Result [facility] [address] [place] [address], * CBC auto differential (07/25/2024 11:54 AM EST) WBC 6.1 4.8 - 10.8 K/mcL LAB HEMETOLOGY METHOD 07/25/2024 12:30 PM [facility] RBC 3.90 3.80 - 4.80 M/mcL LAB HEMETOLOGY METHOD 07/25/2024 12:30 PM [facility] Hemoglobin 12.3 11.5 - 16.0 g/dL LAB HEMETOLOGY METHOD 07/25/2024 12:30 PM [facility] Hematocrit 36.7 35.0 - 47.0 % LAB HEMETOLOGY METHOD 07/25/2024 12:30 PM [facility] MCV 93.1 79.0 - 98.0 FL LAB HEMETOLOGY METHOD 07/25/2024 12:30 PM [facility] MCH 31.2 27.0 - 32.0 pcg LAB HEMETOLOGY METHOD 07/25/2024 12:30 PM [facility] MCHC 33.5 32.0 - 37.0 g/dL LAB HEMETOLOGY METHOD 07/25/2024 12:30 PM [facility] RDW 13.9 11.0 - 15.0 % LAB HEMETOLOGY METHOD 07/25/2024 12:30 PM [facility] Platelets 321 130 - 400 K/mcL LAB HEMETOLOGY METHOD 07/25/2024 12:30 PM [facility] MPV 10.4 7.0 - 11.0 FL LAB HEMETOLOGY METHOD 07/25/2024 12:30 PM [facility] NRBC 0.0 <1.0 % LAB HEMETOLOGY METHOD 07/25/2024 12:30 PM [facility] NRBC Absolute 0.00 <0.10 K/mcL LAB HEMETOLOGY METHOD 07/25/2024 12:30 PM [facility] Neutrophils Relative 60.8 % LAB HEMETOLOGY METHOD 07/25/2024 12:30 PM [facility] Lymphocytes Relative 23.2 % LAB HEMETOLOGY METHOD 07/25/2024 12:30 PM [facility] Monocytes Relative 9.4 % LAB HEMETOLOGY METHOD 07/25/2024 12:30 PM [facility] Eosinophils Relative 5.9 % LAB HEMETOLOGY METHOD 07/25/2024 12:30 PM [facility] Basophils Relative 0.5 % LAB HEMETOLOGY METHOD 07/25/2024 12:30 PM [facility] Immature Granulocytes Relative 0.2 % LAB HEMETOLOGY METHOD 07/25/2024 12:30 PM [facility] Neutrophils Absolute 3.70 1.50 - 7.00 K/mcL LAB HEMETOLOGY METHOD 07/25/2024 12:30 PM [facility] Lymphocytes Absolute 1.41 1.00 - 5.00 K/mcL LAB HEMETOLOGY METHOD 07/25/2024 12:30 PM [facility] Monocytes Absolute 0.57 0.20 - 1.00 K/mcL LAB HEMETOLOGY METHOD 07/25/2024 12:30 PM [facility] Eosinophils Absolute 0.36 0.00 - 0.50 K/mcL LAB HEMETOLOGY METHOD 07/25/2024 12:30 PM EST [facility] Basophils Absolute 0.03 0.00 - 0.20 K/[facility] LAB HEMETOLOGY METHOD 07/25/2024 12:30 PM EST [facility] Immature Granulocytes Absolute 0.01 0.00 - 0.03 K/mcL LAB HEMETOLOGY METHOD 07/25/2024 12:30 PM EST [facility] Blood Venous blood specimen / Unknown Venipuncture / Unknown 07/25/2024 11:54 AM EST 07/25/2024 12:26 PM EST Jomar Booth MD LAB BLOOD ORDERABLES Final Result [facility] [address] [place] [address], [place] [phone] * (ABNORMAL) POCT Glucose, blood (07/25/2024 11:26 AM EST) [facility] Signature Glucose POCT 177(H) 70 - 100 mg/dL 07/25/2024 11:27 AM EST [facility] Blood Capillary blood specimen / Unknown 07/25/2024 11:26 AM EST 07/25/2024 11:29 AM EST Generic Provider Poct LAB POINT OF CARE TEST DOCKED DEVICE UNSOLICITED RESULTS Final Result [facility] [address] [place] [address], [place] [phone] documented in this encounter Visit Diagnoses Diagnosis [...] at 2249, 2nd Line Option: -ONLY give NC if patient is unable to take orally [...] at 2249, 2nd Line Option: -ONLY give NC if patient is unable to take orally [...] at 2249, 2nd Line Option: -ONLY give NC if patient is unable to take orally [...] documented as of this encounter Care Teams Engraver Machine Relationship Specialty Start Date End Date Leonardo García MD [address] [place] [id number] PCP - General Internal Medicine 06/30/24 documented as of this encounter
--- OUTSIDE RECORDS SUMMARY | 2024-08-18 15:33 | XMS_ITS | Patient Health Record ---
Author Organization [facility] Address [address] [place] [address] Care Team Providers Care Boiler Out Name Role Phone Ashleigh Grullon MD Primary Care Provider Mukesh Taveras [phone] Allergies Allergen (clinical drug ingredient) Drug/Non Drug Allergy documented on EMR Reaction Allergy Type Onset Date Status tetracycline Tetracycline HCl Unknown Drug Allergy Active ampicillin Ampicillin Unknown Drug Allergy Activ e Reason For Referral No Information Medications Medication SIG (Take, Route, Frequency, Duration) [...] Problem Status W/U Status Risk Notes Problem Acute hemorrhagic gastritis (4645338) Acute gastritis with bleeding (K29.01) Active confirmed Problem Diverticular disease of colon (106383199) Diverticulosis of large intestine without perforation or abscess without bleeding (K57.30) Active confirmed Problem Iron deficiency anemia (66817130) Iron deficiency anemia (D50.9) Active confirmed Problem Hiatal hernia (62220423) Hiatal hernia (K44.9) Active confirmed Problem Chronic diarrhea (365158378) Chronic diarrhea (K52.9) Active confirmed Problem 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) Chronic gastritis with bleeding, unspecified gastritis type (K29.51) Active confirmed Problem Gastric ulcer (896882042) Gastric ulcer (K25.9) Active confirmed Problem Erosive gastritis (059613108859101 0) Gastritis, erosive (K29.60) Active confirmed Vital Signs Temperature 96.4 degrees Fahrenheit 08/28/2023 Blood pressure diastolic 00 mm Hg 08/28/2023 Height 63.5 in 08/28/2023 Blood pressure systolic 00 mm Hg 08/28/2023 Weight 150 lbs 08/28/2023 BMI 26.15 kg/m2 08/28/2023 Encounters Encounter Location Date Provider Diagnosis [facility] [address] [place] [address] 08/28/2023 Mukesh Bearden Iron deficiency anem ia [...] If things otherwise remain well I advised Srinivasna to see me on a p.r.n. basis. [...] advised of her progress. Plan Of Treatment Future Test Test Name Order Date UPPER GI ENDOSCOPY 02/26/2014 COLONOSCOPY 02/26/2014 Insurance Providers Payer Name Payer Address Payer Phone Subscriber Number Group Number Insured Name Patient Relationship to Insured Coverage Start Date Coverage End Date MEDICARE OF [place] [address] [place] [id number] [phone] [id number] SRINIVASAN ALVARADO Self - patient is the insured [facility] [employer] [address] [place] [address] [id number] SRINIVASAN ALVARADO Self - patient is the insured Medical (General) History Medical History History ICD Code Denies NC,DM,CVA,Lung [...]
== END 2024-08-18 14:42 | disposition home or self-care (01) ==
LOC: HO.HNS 13:23
PROVIDERS: PCP Internal Medicine; Visit Provider Physician Assistant
DX: Z09 Encounter for follow-up examination after completed treatment for conditions other than malignant neoplasm (principal)
CPT/HCPCS: 99024

== ENCOUNTER → 2024-08-18 14:18 | Outpatient (BNV) | payer MEDICARE, SELFPAY | PROVIDERS: PCP Internal Medicine; Visit Provider Radiology Diagnostic Radiology | DX: M41.9 Scoliosis, unspecified (principal) | CPT/HCPCS: 72070; 72110 ==

== ENCOUNTER 2024-08-28 10:35 | Outpatient (REF) | payer MEDICARE, SELFPAY ==
--- NOTE | ~2024-08-28 | XR_ITS ---
EXAMINATION: XR CHEST CLINICAL INFORMATION: Cough. COMPARISON: July 17, 2024. TECHNIQUE: 2 views of the chest were obtained. FINDINGS: No consolidation, pleural effusion or pneumothorax. Cardiomediastinal silhouette size is normal. Calcified plaque thoracic aorta. Hiatal hernia, moderate to large size. Metallic hardware from a posterior thoracolumbar fusion no fully included. XR/XR chest 2V IMPRESSION: No acute airspace disease. Hiatal hernia, moderate to large volume. Electronically signed by: Edmond Paniagua MD 08/28/2024 12:41 PM EDT
== END 2024-08-28 10:36 | disposition home or self-care (01) ==
LOC: HO.HMGCX 10:35
PROVIDERS: PCP Internal Medicine; Visit Provider Internal Medicine
DX: R05.9 Cough, unspecified (principal); F03.90 Unspecified dementia, unspecified severity, without behavioral disturbance, psychotic disturbance, mood disturbance, and anxiety; Z86.73 Personal history of transient ischemic attack (TIA), and cerebral infarction without residual deficits; Z98.1 Arthrodesis status
CPT/HCPCS: 71046; 96127; 99212

== ENCOUNTER 2024-08-28 10:35 | Outpatient (AMB) | payer MEDICARE, SELFPAY ==
[2024-08-28 10:39] VITALS: BP 134/84; PULSE 92; RESP 18; TEMP 36.7; O2SAT 97; BMI 28.1
--- NOTE | 2024-08-28 10:39 | MHC.PC.OV ---
Vital Signs 08/28/24 10:39 Height 5 ft 4 in Weight 164 lb BMI 28.1 BP 134/84 Blood Pressure Location Lt brachial Position Sitting Respiration 18 Pulse 92 Pulse Source Pulse Oximeter Temp 98.0 F Temp Source Oral Pulse Oximetry (%) 97 Oxygen Delivery Method Room Air Intake Visit Reasons: Cough Intake Note: Pt is here today for a sick visit. Pt c/o cough. Pt's daughter states that pt had back surgery in June and after that she had a stroke. Pt states that she took 3 Advils this morning. Allergies ampicillin [AMPICILLIN] Allergy (Severe, Verified 08/28/24 10:40) swelling in face/itchy throat tetracycline [TETRACYCLINE] Allergy (Severe, Verified 08/28/24 10:40) itchy throat/swelling in face Tobacco use date assessed: 08/28/24 Fall risk assessment: 2 + Falls in past year Last assessed Fall Risk: 08/28/24 Dental Screening Dental Screen Date: 08/28/24 Did you have a dental visit in the last 12 months?: Yes Did you have a dental problem in the last 6 months where you did not have access to dental care?: No Was dental information given to patient?: Patient has dentist HPI Cough HPI Details Pt c/o dry cough for 2 weeks on and off. Patient denies recent upper respiratory infection, heartburn allergy symptoms. She denies chest pain shortness or breath PND orthopnea fever, chills. Patient underwent fusion of T11 through L5 spine on June 19. Patient was found to have left lower extremity weakness after waking up from anesthesia and brain MRI showed right frontal lobe acute ischemia. brain and neck CTA revealed severe stenosis in the left distal EXTRUSION PRESS ADJUSTER and right ABHIJIT. Patient has been in-patient rehab following the surgery with significant improvement of her left lower extremity. Patient has been ambulating with a walker and continues physical therapy. She has been forgetful and confused at times before the surgery became worse afterwards. Patient is currently living in assisted living facility. Her daughter is concerned about patient's progressive declining memory, having episodes of hallucinations and confusions, sundowning. Patient has no episodes of agitation or insomnia. she denies depression anxiety and has good appetite. [facility] Medical History Uses roller walker Arthritis Back pain GERD (gastroesophageal reflux disease) Numbness Seasonal allergies History of blood transfusion KNIK (hard of hearing) GI bleed due to NSAIDs Osteoarthritis Elevated cholesterol Hyperglycemia HTN (hypertension) Lumbar stenosis Vertigo Gastritis Scoliosis (and kyphoscoliosis), idiopathic Anemia Surgical History Hx of spinal surgery (07/18/23) Hx of tonsillectomy History of total left knee replacement History of esophagogastroduodenoscopy (EGD) H/O colonoscopy History of lumbar laminectomy History of total left hip arthroplasty History of appendectomy H/O cataract removal with insertion of prosthetic lens Family History Father No problems noted. Mother Breast cancer Social History Household Members: Family Household Members Other:: sister Housing: Condominium Are you a primary career information specialist to a significant other at home: No Do you presently have visiting nurse or other home services: No Patient Tobacco Use Status: Former Tobacco user Tobacco use type: Cigarette e-Cigarette/Vaping Use: Never Used Substance Use Type: Other Advance Directives Date on File: 10/16/22 service: No Current occupational status: retired Cognitive needs: No Hearing needs: Yes Vision needs: No Questionnaire PHQ-9 Over the last 2 weeks, how often have you been bothered by any of the following problems? 1. Little interest or pleasure in doing things: not at all 2. Feeling down, depressed, or hopeless: not at all 3. Trouble falling or staying asleep, or sleeping too much: several days 4. Feeling tired or having little energy: several days 5. Poor appetite or overeating: not at all 6. Feeling bad about yourself - or that you are a failure or have let yourself or your family down: not at all 7. Trouble concentrating on things, such as reading the newspaper or watching television: not at all 8. Moving or speaking so slowly that other people could have noticed. Or the opposite - being so fidgety or restless that you have been moving around a lot more than usual: not at all 9. Thoughts that you would be better off or of hurting yourself in some way: not at all Total score: 2 Depression Screening Interpretation: Negative Depression Screening Done: Yes 61404 - PHQ-9 Billing: Yes Source: Developed by Sravani Soto Kurt Kroenke and colleagues, with an educational faisal from [employer]. Thrive Questionnaire Date Thrive assessed: 08/28/24 I am a: Patient What is your living situation today?: I have a steady place to live Within the past 12 months, did the food you bought not last and you didn't have the money to get more?: Never true Within the past 12 months, did you worry whether your food would run out before you got money to buy more?: Never true Do you have trouble paying for medicines?: No Do you have trouble getting transportation to medical appointments?: No Do you have trouble paying your heating and electricity bill?: No Do you have trouble taking care of your child, family member or friend?: No Do you have trouble with day-to-day activities such as bathing, preparing meals, shopping, managing finances, etc.?: No Are you currently unemployed and looking for a job?: No Are you interested in more education?: No Please select the resources that you would like help with: Care for elder or disabled Currently or been in a relationship where the following occur: I choose not to answer THRIVE Score: 0 AUDIT C Alcohol Use Questionnaire (AUDIT-C) 1. How often do you have a drink containing alcohol?: Never 3. How often do you have six or more drinks on one occasion?: Never Total Score: 0 NAILA-7 AMB Questionnaire NAILA-7 Date NAILA - 7 assessed: 08/28/24 Feeling nervous, anxious, or on edge: 1 = Several days Not being able to stop or control worryin = Several days Worrying too much about different things: 1 = Several days Trouble relaxin = Not at all Being so restless that it is hard to sit still: 0 = Not at all Becoming easily annoyed or irritable: 0 = Not at all Feeling afraid as if something awful might happen: 0 = Not at all Total NAILA-7 score (0-4 normal; 5-9 mild; 10-14 moderate; 15-21 severe): 3 Source: Developed by Sravani Soto Kurt Kroenke and colleagues, with an educational faisal from [employer]. NAILA-7 Assessment Billing NAILA-7 Assessment Tool: NAILA-7 Assessment 88542 Review of Systems Const All systems reviewed & are unremarkable except as noted in HPI and below Eyes Reports no additional complaints ENT Reports no additional complaints Card Reports no additional complaints Resp Reports no additional complaints GI Reports no additional complaints Reports no additional complaints Physical exam (Primary Care) Vital Signs: Last Vital Signs Temp 98.0 F 08/28/24 10:39 Pulse 92 08/28/24 10:39 Resp 18 08/28/24 10:39 BP 134/84 08/28/24 10:39 Pulse Ox 97 08/28/24 10:39 Oxygen Delivery Method Room Air 08/28/24 10:39 BMI result Body Mass Index 28.1 Tobacco/Smoking Status: Tobacco use Status Tobacco use date assessed 08/28/24 08/28/24 10:51 Patient Tobacco Use Status Former Tobacco user 08/28/24 10:51 Tobacco use type Cigarette 08/28/24 10:51 e-Cigarette/Vaping Use Never Used 08/28/24 10:51 PHQ-9: PHQ-9 Score PHQ-9: Total score 2 08/28/24 11:02 Depression Screening Interpretation: Negative Thrive Assessment: Date of Thrive Assessment Date Thrive assessed 08/28/24 08/28/24 10:51 Currently or been in a relationship where the following occur: I choose not to answer Const General: no acute distress HENMT Head: Yes normal to inspection Eyes General: appearance normal, both eyes and all related structures Resp Effort & Inspection: normal respiratory effort Auscultation: clear to auscultation bilaterally Cardio Rhythm: regular rhythm Heart sounds: S1 normal heart sound present and S2 normal heart sound present GI Inspection: Yes normal to inspection Palpation (GI): Soft to palpation Percussion: Yes normal to percussion Auscultation: normal bowel sounds Neuro Other: left lower extremity motor strength 4-5/5 proximally 3 to 4/5 distally, right lower extremity strength 5/5 proximally and distally General: Unable to assess gait Cranial nerves: Yes CN's II-XII intact bilaterally Gait exam (Neuro): Unable to assess gait Motor exam (neuro): Pronator motor function not present Coding Level of Care Code Est Pt Level 5 (55856) Complex EM visit Add On G2211 Diagnoses Cerebral infarction, unspecified mechanism I63.9 Cerebral infarction mechanism: unspecified mechanism Dementia F03.90 S/P lumbar fusion Z98.1 Additional Codes NAILA-7 Assessment Billing - NAILA-7 Assessment Tool: NAILA-7 Assessment 33369 ([id number]) PHQ-9 - 69612 - PHQ-9 Billing: Yes ([id number]) Assessment & Plan Assessment & Plan (1) Cerebral infarction: Comment: 06/2024, left lower extremity weakness, MR acute ischemia in middle cerebral artery distribution. CT angiogram severe stenosis left distal EXTRUSION PRESS ADJUSTER, right ABHIJIT Code(s): I63.9 - Cerebral infarction, unspecified Category: Medical Qualifiers: Cerebral infarction mechanism: unspecified mechanism Qualified Code(s): I63.9 - Cerebral infarction, unspecified Plan: Patient will have a fasting blood work today and most advised to restart high dose of statin and baby aspirin. She will be referred to Neurology (2) Dementia: Comment: Brain MRI consistent with small-vessel ischemic changes and atrophy 06/2024 Code(s): F03.90 - Unspecified dementia, unspecified severity, without behavioral disturbance, psychotic disturbance, mood disturbance, and anxiety Category: Medical Plan: Check blood work and referred to neurologist for worsening dementia (3) S/P lumbar fusion: Comment: Th11-L5, 06/2024, by Dr. Shaw Code(s): Z98.1 - Arthrodesis status Category: Surgical Plan: Follow-up with the spine surgeon Orders: Orders Vitamin B12 and Folate Today I63.9 - Cerebral infarction, unspecified Comprehensive Met. Panel Today I63.9 - Cerebral infarction, unspecified Complete Blood Count Auto Diff Today I63.9 - Cerebral infarction, unspecified Lipid Panel Today I63.9 - Cerebral infarction, unspecified TSH reflex Free T4 Today I63.9 - Cerebral infarction, unspecified Vitamin D 25-OH Total Today I63.9 - Cerebral infarction, unspecified Referrals Neurology Referral I63.9 - Cerebral infarction, unspecified
== END 2024-08-28 11:29 | disposition home or self-care (01) ==
LOC: HO.HMCC 10:36
PROVIDERS: PCP Internal Medicine; Visit Provider Internal Medicine
DX: I69.354 Hemiplegia and hemiparesis following cerebral infarction affecting left non-dominant side (principal); F03.90 Unspecified dementia, unspecified severity, without behavioral disturbance, psychotic disturbance, mood disturbance, and anxiety; Z98.1 Arthrodesis status

== ENCOUNTER → 2024-08-28 11:25 | Outpatient (BNV) | payer MEDICARE, SELFPAY | PROVIDERS: PCP Internal Medicine; Visit Provider Radiology Diagnostic Radiology | DX: R05.9 Cough, unspecified (principal) | CPT/HCPCS: 71046 ==

== ENCOUNTER 2024-08-30 07:10 | Outpatient (REF) | payer MEDICARE, SELFPAY ==
[2024-08-30 11:44] LABS: MANUAL DIFF FLAG NO
[2024-08-30 11:53] LABS: Basophils Percent Auto 0.7 % (0-2); Eosinophils Absolute Auto 0.1 X10*3/uL (0.0-0.4); Hematocrit 36.1 % (37.0-47.0); Hemoglobin 12.2 g/dl (12.0-16.0); Imm Gran Abs Auto 0.01 X10*3/uL (0.00-0.03); Imm Gran Pct Auto 0.2 % (0.0-0.4); Lymphocytes Percent Auto 48.8 % (20-40); Mean Corpuscular HGB Conc 33.8 g/dl (31.0-35.0); Mean Corpuscular Hemoglobin 29.4 pg (27.0-33.0); Mean Platelet Volume 9.9 fL (9.4-12.3); Monocytes Absolute Auto 0.5 X10*3/uL (0.1-1.2); Monocytes Percent Auto 12.7 % (2-11); Neutrophils Absolute Auto 1.4 x10*3/uL (2.0-8.3); Neutrophils Percent Auto 34.6 % (45-73); Platelet Count 260 X10*3/uL (160-400); Red Blood Count 4.15 X10*6/uL (4.20-5.50); Red Cell Distribution Width 13.3 % (11.0-16.0)
[2024-08-30 12:12] LABS: Alanine Aminotransferase 13 U/L (0-31); Albumin Level 3.8 g/dL (3.5-5.0); Alkaline Phosphatase 129 U/L (39-117); Anion Gap 10 (12-20); Aspartate Amino Transferase 22 U/L (5-31); Bilirubin Total 0.7 mg/dL (0.0-1.0); Blood Urea Nitrogen 12 mg/dL (9-16); Calcium 8.8 mg/dL (8.4-10.2); Carbon Dioxide 28 mmol/L (22-29); Chloride 105 mmol/L (96-108); Cholesterol 176 mg/dL (<200); Estimated Glomerular Filt Rate > 60; Glucose Random 98 mg/dL (60-115); HDL Cholesterol 38 mg/dL (>40); LDL Cholesterol Calculated 113 mg/dL (<100); Sodium 140 mmol/L (135-145); Total Protein 6.2 g/dL (6.5-8.0); Triglycerides 128 mg/dL (<150)
[2024-08-30 12:32] LABS: TSH reflex Free T4 1.89 uIU/mL (0.32-4.0); Vitamin D 25-OH Total 20.6 ng/mL (>30)
[2024-08-30 12:38] LABS: Folate 9.5 ng/mL (> or = 4.0); Vitamin B12 290 pg/mL (200-900)
== END 2024-08-30 07:11 | disposition home or self-care (01) ==
LOC: HO.HMGCLDS 07:10
PROVIDERS: PCP Internal Medicine; Visit Provider Internal Medicine
DX: I63.9 Cerebral infarction, unspecified (principal)
CPT/HCPCS: 36415; 80053; 80061; 82306; 82607; 82746; 84443; 85025

== ENCOUNTER 2024-09-13 08:01 | Outpatient (REF) | payer MEDICARE, SELFPAY ==
--- OUTSIDE RECORDS SUMMARY | 2024-09-13 08:03 | XMS_ITS | Encounter Summary ---
Author Organization [facility] Address [address] [place] [address] Care Team Providers Care Machine Bander And Cellophaner Name Role Phone Leonardo García MD Primary Care Provider [phone] Encounter Details Date Type Department Care Team (Late st Contact Info) Description 06/22/2024 Lab Requisition [facility] - Main Lab [address] [facility] [place] [address] Chris Barlow MD [address] [place] [address] Encounter for other general examination Social History [...] mmol/L LAB CHEMISTRY METHOD 06/22/2024 9:17 AM [facility] Potassium 3.4(L) 3.5 - 5.5 mmol/L LAB CHEMISTRY METHOD 06/22/2024 9:17 AM [facility] Chloride 101 96 - 110 mmol/L LAB CHEMISTRY METHOD 06/22/2024 9:17 AM [facility] CO2 28 21 - 32 mmol/L LAB CHEMISTRY METHOD 06/22/2024 9:17 AM [facility] Anion Gap 8 3 - 11 LAB CHEMISTRY METHOD 06/22/2024 9:17 AM [facility] Glucose 128(H) 70 - 100 mg/dL LAB CHEMISTRY METHOD 06/22/2024 9:17 AM [facility] BUN 14 5 - 25 mg/dL LAB CHEMISTRY METHOD 06/22/2024 9:17 AM [facility] Creatinine 0.60 0.50 - 1.10 mg/dL LAB CHEMISTRY METHOD 06/22/2024 9:17 AM [facility] eGFR 90 >=60 mL/min/1. 73m2 LAB CHEMISTRY METHOD 06/22/2024 9:17 AM [facility] Comment:Calculation based on the??Chronic Kidney Disease Epidemiology Collaboration (CKD-EPI) equation refit??without adjustment for race. BUN/Creatinine Ratio 23.3 LAB CHEMISTRY METHOD 06/22/2024 9:17 AM [facility] Calcium 8.3(L) 8.5 - 10.5 mg/dL LAB CHEMISTRY METHOD 06/22/2024 9:17 AM [facility] Blood Venous blood specimen / Unknown Venipuncture / Unknown 06/22/2024 6:05 AM EST 06/22/2024 8:27 AM EST us Chris Barlow MD LAB BLOOD ORDERABLES Final Resu lt [facility] [address] [place], [place] [address] [phone] documented in this encounter Visit Diagnoses Diagnosis Encounter for other general examination documented in this encounter Additional Health Concerns Infection Onset Date Last Indicated Resolved Time Respiratory Rule-Out 07/26/2024 07/26/2024 025 3:02 AM EST COVID-19 Rule-Out 07/26/2024 07/26/2024 07/26/2024 3:02 AM EST documented as of this encounter Care Teams Machine Bander And Cellophaner Relationship Specialty Start Date End Date Leonardo García MD [address] [place] [id number] PCP - General Internal Medicine 06/30/24 documented as of this encounter
--- OUTSIDE RECORDS SUMMARY | 2024-09-13 08:03 | XMS_ITS | Encounter Summary ---
Author Organization [facility] Address [address] [place] [address] Care Team Providers Care Contact Center Director Name Role Phone Leonardo García MD Primary Care Provider [phone] Encounter Details Date Type Department Care Team (Late st Contact Info) Description 06/21/2024 Lab Requisition [facility] - Main Lab [address] [facility] [place] [address] Chris Barlow MD [address] [place] [address] Encounter for other general examination Social History [...] CBC auto differential (06/21/2024 7:13 AM EST) [facility] WBC 8.0 4.8 - 10.8 K/mcL LAB HEMETOLOGY METHOD 06/21/2024 10:55 AM [facility] RBC 3.50(L) 3.80 - 4.80 M/mcL LAB HEMETOLOGY METHOD 06/21/2024 10:55 AM [facility] Hemoglobin 10.5(L) 11.5 - 16.0 g/dL LAB HEMETOLOGY METHOD 06/21/2024 10:55 AM [facility] Hematocrit 30.6(L) 35.0 - 47.0 % LAB HEMETOLOGY METHOD 06/21/2024 10:55 AM [facility] MCV 88.7 79.0 - 98.0 FL LAB HEMETOLOGY METHOD 06/21/2024 10:55 AM [facility] MCH 30.4 27.0 - 32.0 pcg LAB HEMETOLOGY METHOD 06/21/2024 10:55 AM [facility] MCHC 34.3 32.0 - 37.0 g/dL LAB HEMETOLOGY METHOD 06/21/2024 10:55 AM [facility] RDW 13.4 11.0 - 15.0 % LAB HEMETOLOGY METHOD 06/21/2024 10:55 AM [facility] Platelets 257 130 - 400 K/mcL LAB HEMETOLOGY METHOD 06/21/2024 10:55 AM [facility] MPV 9.7 7.0 - 11.0 FL LAB HEMETOLOGY METHOD 06/21/2024 10:55 AM [facility] NRBC 0.0 <1.0 % LAB HEMETOLOGY METHOD 06/21/2024 10:55 AM [facility] NRBC Absolute 0.00 <0.10 K/mcL LAB HEMETOLOGY METHOD 06/21/2024 10:55 AM [facility] Neutrophils Relative 73.2 % LAB HEMETOLOGY METHOD 06/21/2024 10:55 AM [facility] Lymphocytes Relative 16.0 % LAB HEMETOLOGY METHOD 06/21/2024 10:55 AM [facility] Monocytes Relative 7.3 % LAB HEMETOLOGY METHOD 06/21/2024 10:55 AM [facility] Eosinophils Relative 2.3 % LAB HEMETOLOGY METHOD 06/21/2024 10:55 AM [facility] Basophils Relative 0.6 % LAB HEMETOLOGY METHOD 06/21/2024 10:55 AM [facility] Immature Granulocytes Relative 0.6 % LAB HEMETOLOGY METHOD 06/21/2024 10:55 AM [facility] Neutrophils Absolute 5.84 1.50 - 7.00 K/mcL LAB HEMETOLOGY METHOD 06/21/2024 10:55 AM [facility] Lymphocytes Absolute 1.28 1.00 - 5.00 K/mcL LAB HEMETOLOGY METHOD 06/21/2024 10:55 AM [facility] Monocytes Absolute 0.58 0.20 - 1.00 K/mcL LAB HEMETOLOGY METHOD 06/21/2024 10:55 AM [facility] Eosinophils Absolute 0.18 0.00 - 0.50 K/mcL LAB HEMETOLOGY METHOD 06/21/2024 10:55 AM [facility] Basophils Absolute 0.05 0.00 - 0.20 K/mcL LAB HEMETOLOGY METHOD 06/21/2024 10:55 AM [facility] Immature Granulocytes Absolute 0.05(H) 0.00 - 0.03 K/mcL LAB HEMETOLOGY METHOD 06/21/2024 10:55 AM EST [facility] Blood Venous blood specimen / Unknown Venipuncture / Unknown 06/21/2024 7:13 AM EST 06/21/2024 10:03 AM EST us Chris Barlow MD LAB BLOOD ORDERABLES Final Resu lt Performing Organization Address City/[facility]/ZIP Co de Phone Number [facility] [address] [place] [address], [place] [phone] * (ABNORMAL) Magnesium (06/21/2024 7:13 AM EST) Magnesium 1.7(L) 1.9 - 2.6 mg/dL LAB CHEMISTRY METHOD 06/21/2024 11:21 AM EST [facility] Blood Venous blood specimen / Unknown Venipuncture / Unknown 06/21/2024 7:13 AM EST 06/21/2024 10:03 AM EST us Chris Barlow MD LAB BLOOD ORDERABLES Final Resu lt Performing Organization Address [facility]/ZIP Co de Phone Number [facility] [address] [place] [address], [place] [phone] * (ABNORMAL) Comprehensive metabolic panel (06/21/2024 7:13 AM EST) Sodium 138 133 - 145 mmol/L LAB CHEMISTRY METHOD 06/21/2024 11:50 AM EST [facility] Potassium 2.8(LL) 3.5 - 5.5 mmol/L LAB CHEMISTRY METHOD 06/21/2024 11:50 AM EST [facility] Chloride 103 96 - 110 mmol/L LAB CHEMISTRY METHOD 06/21/2024 11:50 AM EST [facility] CO2 30 21 - 32 mmol/L LAB CHEMISTRY METHOD 06/21/2024 11:50 AM [facility] Anion Gap 5 3 - 11 LAB CHEMISTRY METHOD 06/21/2024 11:50 AM [facility] Glucose 109(H) 70 - 100 mg/dL LAB CHEMISTRY METHOD 06/21/2024 11:50 AM [facility] BUN 8 5 - 25 mg/dL LAB CHEMISTRY METHOD 06/21/2024 11:50 AM [facility] Creatinine 0.62 0.50 - 1.10 mg/dL LAB CHEMISTRY METHOD 06/21/2024 11:50 AM [facility] eGFR 89 >=60 mL/min/1. 73m2 LAB CHEMISTRY METHOD 06/21/2024 11:50 AM [facility] Comment:Calculation based on the??Chronic Kidney Disease Epidemiology Collaboration (CKD-EPI) equation refit??without adjustment for race. BUN/Creatinine Ratio 12.9 LAB CHEMISTRY METHOD 06/21/2024 11:50 AM [facility] Calcium 8.4(L) 8.5 - 10.5 mg/dL LAB CHEMISTRY METHOD 06/21/2024 11:50 AM [facility] AST (SGOT) 71(H) 10 - 42 unit/L LAB CHEMISTRY METHOD 06/21/2024 11:50 AM [facility] ALT (SGPT) 46 10 - 60 unit/L LAB CHEMISTRY METHOD 06/21/2024 11:50 AM [facility] Alkaline Phosphatase 95 42 - 121 unit/L LAB CHEMISTRY METHOD 06/21/2024 11:50 AM [facility] Total Protein 5.6(L) 6.0 - 8.0 g/dL LAB CHEMISTRY METHOD 06/21/2024 11:50 AM [facility] Albumin 2.9(L) 3.2 - 5.0 g/dL LAB CHEMISTRY METHOD 06/21/2024 11:50 AM [facility] Total Bilirubin 0.7 0.0 - 1.4 mg/dL LAB CHEMISTRY METHOD 06/21/2024 11:50 AM EST [facility] Blood Venous blood specimen / Unknown Venipuncture / Unknown 06/21/2024 7:13 AM EST 06/21/2024 10:03 AM EST us Chris Barlow MD LAB BLOOD ORDERABLES Final Resu lt [facility] [address] [place] [address], documented in this encounter Visit Diagnoses Diagnosis Encounter for other general examination documented in this encounter Additional Health Concerns Infection Onset Date Last Indicated Resolved Time Respiratory Rule-Out 07/26/2024 07/26/2024 025 3:02 AM EST COVID-19 Rule-Out 07/26/2024 07/26/2024 07/26/2024 3:02 AM EST documented as of this encounter Care Teams Contact Center Director Relationship Specialty Start Date End Date Leonardo García MD [address] [place] [id number] PCP - General Internal Medicine 06/30/24 documented as of this encounter
--- OUTSIDE RECORDS SUMMARY | 2024-09-13 08:03 | XMS_ITS | Encounter Summary ---
Author Organization [facility] Address [address] [place] [address] Care Team Providers Care Salvage Mechanic Name Role Phone Leonardo García MD Primary Care Provider [phone] Encounter Details Date Type Department Care Team (Late st Contact Info) Description 07/06/2024 Lab Requisition [facility] - Main Lab [address] [facility] [place] [id number] Chris Barlow MD [address] [place] [address] Encounter for other general examination Social History [...] Escherichia coli(A) JUDIE 07/08/2024 8:28 AM EST [facility] Urine Urine specimen obtained [...] MICROBIOLOGY - GENERAL ORDE GONZALEZ Final Result [facility] [address] [place] [address], [place] [phone] * Jay urine culture tube (07/06/2024 10:07 AM EST) Extra Tube Hold for add-ons. 07/06/2024 4:01 PM [facility] Comment:Auto resulted. Urine Urine specimen obtained by clean catch procedure / Unknown 07/06/2024 10:07 AM EST 07/06/2024 2:09 PM EST us Chris Barlow MD LAB URINE ORDERABLES Final Resu lt [facility] [address] [place] [address], [place] [phone] * (ABNORMAL) Urinalysis with reflex microscopic and culture (07/06/2024 10:07 AM EST) [facility] [place] Urine 1.022 1.003 - 1.030 LAB URINALYSIS - AUTOMATED METHOD 07/06/2024 3:05 PM [facility] pH, Urine 5.5 5.0 - 8.0 pH LAB URINALYSIS - AUTOMATED METHOD 07/06/2024 3:05 PM [facility] Leukocytes, Urine Large(A) Negative LAB URINALYSIS - AUTOMATED METHOD 07/06/2024 3:05 PM [facility] Nitrite, Urine Positive(A) Negative LAB URINALYSIS - AUTOMATED METHOD 07/06/2024 3:05 PM [facility] Protein, Urine Negative <=Trace mg/dL LAB URINALYSIS - AUTOMATED METHOD 07/06/2024 3:05 PM [facility] Glucose, Urine Negative Negative mg/dL LAB URINALYSIS - AUTOMATED METHOD 07/06/2024 3:05 PM [facility] Ketones, Urine Negative Negative mg/dL LAB URINALYSIS - AUTOMATED METHOD 07/06/2024 3:05 PM [facility] Urobilinogen , Urine 1.0 0.2 - 1.0 mg/dL LAB URINALYSIS - AUTOMATED METHOD 07/06/2024 3:05 PM EST [facility] Bilirubin, Urine Negative Negative LAB URINALYSIS - AUTOMATED METHOD 07/06/2024 3:05 PM EST [facility] Blood, Urine Trace(A) Negative LAB URINALYSIS - AUTOMATED METHOD 07/06/2024 3:05 PM EST [facility] Urine Urine specimen obtained by clean catch procedure / Unknown 07/06/2024 10:07 AM EST 07/06/2024 2:07 PM EST us Chris Barlow MD LAB URINE ORDERABLES Final Resu lt [facility] [address] [place] [address], documented in this encounter Visit Diagnoses Diagnosis Encounter for other general examination documented in this encounter Additional Health Concerns Infection Onset Date Last Indicated Resolved Time Respiratory Rule-Out 07/26/2024 07/26/2024 025 3:02 AM EST COVID-19 Rule-Out 07/26/2024 07/26/2024 07/26/2024 3:02 AM EST documented as of this encounter Care Teams Salvage Mechanic Relationship Specialty Start Date End Date Leonardo García MD [address] [place] [address] PCP - General Internal Medicine 06/30/24 documented as of this encounter
--- OUTSIDE RECORDS SUMMARY | 2024-09-13 08:03 | XMS_ITS ---
Author Organization [facility] Address [address] [place] [address] Care Team Providers Care Weatherization Administrator Name Role Phone Ashleigh Grullon MD Primary Care Provider Mukesh Taveras [phone] Allergies Allergen (clinical drug ingredient) Drug/Non Drug [...] W/U Status Risk Notes Problem Hiatal hernia (45795377) Hiatal hernia (K44.9) Active confirmed Problem Acute hemorrhagic gastritis (3564983) Acute gastritis with bleeding (K29.01) Active confirmed Problem Chronic antral gastritis with hemorrhage (disorder) (714875683) Chronic gastritis with bleeding, unspecified gastritis type (K29.51) Active confirmed Problem Chronic diarrhea (162861793) Chronic diarrhea (K52.9) Active confirmed Vital Signs Temperature 96.4 degrees Fahrenheit 08/28/19 24 Blood pressure systolic 00 mm Hg 08/28/19 24 Blood pressure diastolic 00 mm Hg 024 Height 63.5 in 08/28/2023 Weight 150 lbs 08/28/2023 BMI 26.15 kg/m2 08/28/2023 Encounters Encounter Location Date Provider Diagnosis [facility] [address] [place] [address] 08/28/2023 Mukesh Bearden Iron deficiency anem ia [...] Up: prn, Reason: Progress Notes * SRINIVASAN ALVARADO GDOB:1939 (83 yo F)Acc No.[id number]:08/28/2023 Progress Notes Patient:?SRINIVASAN ALVARADO Provider:?Mukesh Bearden MD :1940???Age:83 Y???Sex:Female D ate:08/28/2023 Address:[address] [place] [address], [facility] Pcp:Ashleigh Grullon MD Subjective: * Chief Complaints: * ???Patient presents today fo r gerd * HPI: ???incontinence:? I saw Srinivasan in followup today in regard to her hiatal hernia, gastritis, and anemia. She is accompanied by her HEALTH AND SAFETY INSTRUCTOR, Jimena. ?I last saw Srinivasan in April [...] Delayed Release 1 tablet Orally Once a [id number] [place] 3 Colyte w Flavor Packs 240 GM Solution Reconstituted as directed Orally as directedMedication List reviewed and reconciled with the patientDiscontinued hydroCHLOROthiazide 25 MG Tablet 1 tablet Orally Once a dayDiscontinued Lovastatin 40 MG Tablet 1 tablet with a meal Orally Once a dayDiscontinued Aspir-81 81 MG Tablet Delayed Release 1 tablet Orally Once a dayDiscontinued CoQ10 Discontinued [place] 3 Discontinued Colyte w Flavor Packs 240 [...] 1, Oral.?? * Procedure Codes:?1036F TOBAC CO NON-[id number] BP SCR NOT PRFRM REC REASON NOS * Preventive Medicine:? ??Counseling:?Care goal follow-up plan:?Above Normal BMI Follow-up?Giving encouragement to exercise,?BMI management provided?Yes.? ??Urinary Incontinence:?Urinary Incontinence?Assessment:?Present,?Plan of care documented:?Yes,?Type of plan of care:?Lifestyle interventions.? * Follow Up:?prn * * Sign off status: Completed true * Provider:?Mukesh Bearden MD Date:? 024 Generated for Elieser vasquez/Jairo/Aprilitting on:?09/13/2024 08:02 AM EDT History and Physical Notes * HPI (History of Present Illness) Category Sub-Category Detail Notes Category Not es incontinence I saw Srinivasan in followup today in regard to her hiatal hernia, gastritis, and anemia. She is accompanied by her HEALTH AND SAFETY INSTRUCTOR, Jimena. I last saw Srinivasan in April [...]
--- OUTSIDE RECORDS SUMMARY | 2024-09-13 08:03 | XMS_ITS ---
Author Organization [facility] Address [address] [place] [address] Care Team Providers Care Forensic Investigator Name Role Phone Ashleigh Grullon MD Primary Care Provider Mukesh Taveras [phone] REASON FOR VISIT follow up after procedure Encounters Encounter Location Date Provider Diagnosis [facility] [address] [place] [phone] 04/23/2023 Mukesh Bearden Plan Of Treatment No Information Progress Notes * SRINIVASAN ALVARADO GDOB:1939 (83 yo F)Acc No.[id number]:04/23/2023 Patient:?SRINIVASAN ALVARADO :1940???Age:82 Y???Sex:Female Address:[address] [place], [place] [address] [address] * true * Date:? Generated for Elieser vasquez/Jairo/eTransmitting on:?09/13/2024 08:03 AM EDT
--- OUTSIDE RECORDS SUMMARY | 2024-09-13 08:03 | XMS_ITS | Encounter Summary ---
Author Organization [facility] [place] [address] Care Team Providers Care Lining Ironer Name Role Phone Leonardo García MD Primary Care Provider [phone] Encounter Details Date Type Department Care Team (Late st Contact Info) Description 07/05/2024 Lab Requisition [facility] - Main Lab [address] [facility] [place] [address] Chris Barlow MD [address] [place] [address] Encounter for other general examination Social History [...] CBC auto differential (07/05/2024 7:00 AM EST) [facility] Signature WBC 9.9 4.8 - 10.8 K/mcL LAB HEMETOLOGY METHOD 07/05/2024 11:42 AM [facility] RBC 3.60(L) 3.80 - 4.80 M/mcL LAB HEMETOLOGY METHOD 07/05/2024 11:42 AM [facility] Hemoglobin 10.7(L) 11.5 - 16.0 g/dL LAB HEMETOLOGY METHOD 07/05/2024 11:42 AM [facility] Hematocrit 32.8(L) 35.0 - 47.0 % LAB HEMETOLOGY METHOD 07/05/2024 11:42 AM [facility] MCV 92.1 79.0 - 98.0 FL LAB HEMETOLOGY METHOD 07/05/2024 11:42 AM [facility] MCH 30.1 27.0 - 32.0 pcg LAB HEMETOLOGY METHOD 07/05/2024 11:42 AM [facility] MCHC 32.6 32.0 - 37.0 g/dL LAB HEMETOLOGY METHOD 07/05/2024 11:42 AM [facility] RDW 14.2 11.0 - 15.0 % LAB HEMETOLOGY METHOD 07/05/2024 11:42 AM [facility] Platelets 439(H) 130 - 400 K/mcL LAB HEMETOLOGY METHOD 07/05/2024 11:42 AM [facility] MPV 8.9 7.0 - 11.0 FL LAB HEMETOLOGY METHOD 07/05/2024 11:42 AM [facility] NRBC 0.0 <1.0 % LAB HEMETOLOGY METHOD 07/05/2024 11:42 AM [facility] NRBC Absolute 0.00 <0.10 K/mcL LAB HEMETOLOGY METHOD 07/05/2024 11:42 AM [facility] Neutrophils Relative 71.2 % LAB HEMETOLOGY METHOD 07/05/2024 11:42 AM [facility] Lymphocytes Relative 16.3 % LAB HEMETOLOGY METHOD 07/05/2024 11:42 AM [facility] Monocytes Relative 10.4 % LAB HEMETOLOGY METHOD 07/05/2024 11:42 AM [facility] Eosinophils Relative 1.2 % LAB HEMETOLOGY METHOD 07/05/2024 11:42 AM [facility] Basophils Relative 0.4 % LAB HEMETOLOGY METHOD 07/05/2024 11:42 AM [facility] Immature Granulocytes Relative 0.5 % LAB HEMETOLOGY METHOD 07/05/2024 11:42 AM [facility] Neutrophils Absolute 7.06(H) 1.50 - 7.00 K/mcL LAB HEMETOLOGY METHOD 07/05/2024 11:42 AM [facility] Lymphocytes Absolute 1.62 1.00 - 5.00 K/mcL LAB HEMETOLOGY METHOD 07/05/2024 11:42 AM [facility] Monocytes Absolute 1.03(H) 0.20 - 1.00 K/mcL LAB HEMETOLOGY METHOD 07/05/2024 11:42 AM [facility] Eosinophils Absolute 0.12 0.00 - 0.50 K/mcL LAB HEMETOLOGY METHOD 07/05/2024 11:42 AM [facility] Basophils Absolute 0.04 0.00 - 0.20 K/mcL LAB HEMETOLOGY METHOD 07/05/2024 11:42 AM [facility] Immature Granulocytes Absolute 0.05(H) 0.00 - 0.03 K/mcL LAB HEMETOLOGY METHOD 07/05/2024 11:42 AM EST [facility] Blood Venous blood specimen / Unknown Venipuncture / Unknown 07/05/2024 7:00 AM EST 07/05/2024 10:39 AM EST Chris Barlow MD LAB BLOOD ORDERABLES Final Resu lt Performing Organization Address City/[facility]/ZIP Co de Phone Number [facility] [address] [place] [address], [place] [phone] * Magnesium (07/05/2024 7:00 AM EST) Pathologist [facility] Magnesium 2.4 1.9 - 2.6 mg/dL LAB CHEMISTRY METHOD 07/05/2024 12:15 PM EST [facility] Blood Venous blood specimen / Unknown Venipuncture / Unknown 07/05/2024 7:00 AM EST 07/05/2024 10:39 AM EST Chris Barlow MD LAB BLOOD ORDERABLES Final Resu lt Performing Organization Address [facility]/ZIP Co de Phone Number [facility] [address] [place] [address], [place] [phone] * (ABNORMAL) Comprehensive metabolic panel (07/05/2024 7:00 AM EST) Sodium 132(L) 133 - 145 mmol/L LAB CHEMISTRY METHOD 07/05/2024 12:14 PM EST [facility] Potassium 4.3 3.5 - 5.5 mmol/L LAB CHEMISTRY METHOD 07/05/2024 12:14 PM EST [facility] Chloride 98 96 - 110 mmol/L LAB CHEMISTRY METHOD 07/05/2024 12:14 PM EST [facility] CO2 28 21 - 32 mmol/L LAB CHEMISTRY METHOD 07/05/2024 12:14 PM [facility] Anion Gap 6 3 - 11 LAB CHEMISTRY METHOD 07/05/2024 12:14 PM [facility] Glucose 95 70 - 100 mg/dL LAB CHEMISTRY METHOD 07/05/2024 12:14 PM [facility] BUN 21 5 - 25 mg/dL LAB CHEMISTRY METHOD 07/05/2024 12:14 PM [facility] Creatinine 0.80 0.50 - 1.10 mg/dL LAB CHEMISTRY METHOD 07/05/2024 12:14 PM [facility] eGFR 74 >=60 mL/min/1. 73m2 LAB CHEMISTRY METHOD 07/05/2024 12:14 PM [facility] Comment:Calculation based on the??Chronic Kidney Disease Epidemiology Collaboration (CKD-EPI) equation refit??without adjustment for race. BUN/Creatinine Ratio 26.3 LAB CHEMISTRY METHOD 07/05/2024 12:14 PM [facility] Calcium 8.9 8.5 - 10.5 mg/dL LAB CHEMISTRY METHOD 07/05/2024 12:14 PM [facility] AST (SGOT) 20 10 - 42 unit/L LAB CHEMISTRY METHOD 07/05/2024 12:14 PM [facility] ALT (SGPT) 50 10 - 60 unit/L LAB CHEMISTRY METHOD 07/05/2024 12:14 PM [facility] Alkaline Phosphatase 203(H) 42 - 121 unit/L LAB CHEMISTRY METHOD 07/05/2024 12:14 PM [facility] Total Protein 6.1 6.0 - 8.0 g/dL LAB CHEMISTRY METHOD 07/05/2024 12:14 PM [facility] Albumin 3.5 3.2 - 5.0 g/dL LAB CHEMISTRY METHOD 07/05/2024 12:14 PM [facility] Total Bilirubin 0.9 0.0 - 1.4 mg/dL LAB CHEMISTRY METHOD 07/05/2024 12:14 PM EST [facility] Blood Venous blood specimen / Unknown Venipuncture / Unknown 07/05/2024 7:00 AM EST 07/05/2024 10:39 AM EST us Chris Barlow MD LAB BLOOD ORDERABLES Final Resu lt [facility] [address] [place] [address], documented in this encounter Visit Diagnoses Diagnosis Encounter for other general examination documented in this encounter Additional Health Concerns Infection Onset Date Last Indicated Resolved Time Respiratory Rule-Out 07/26/2024 07/26/2024 025 3:02 AM EST COVID-19 Rule-Out 07/26/2024 07/26/2024 07/26/2024 3:02 AM EST documented as of this encounter Care Teams Lining Ironer Relationship Specialty Start Date End Date Leonardo García MD [address] [place] [address] PCP - General Internal Medicine 06/30/24 documented as of this encounter
--- OUTSIDE RECORDS SUMMARY | 2024-09-13 08:03 | XMS_ITS | Patient Health Record ---
Author Organization [facility] Address [address] [place] [address] Care Team Providers Care Splicer Helper Name Role Phone Ashleigh Grullon MD Primary Care Provider Mukesh Taveras [phone] Allergies Allergen (clinical drug ingredient) Drug/Non Drug [...] Status Risk Notes Problem Acute hemorrhagic gastritis (5734366) Acute gastritis with bleeding (K29.01) Active confirmed Problem Diverticular disease of colon (151694244) Diverticulosis of large intestine without perforation or abscess without bleeding (K57.30) Active confirmed Problem Iron deficiency anemia (14590431) Iron deficiency anemia (D50.9) Active confirmed Problem Hiatal hernia (57113846) Hiatal hernia (K44.9) Active confirmed Problem Chronic diarrhea (311381888) Chronic diarrhea (K52.9) Active confirmed Problem Chronic antral gastritis with hemorrhage (disorder) (393159653) Chronic gastritis with bleeding, unspecified gastritis type (K29.51) Active confirmed Problem Gastric ulcer (453078782) Gastric ulcer (K25.9) Active confirmed Problem Erosive gastritis (020360564134493 0) Gastritis, erosive (K29.60) Active confirmed Plan Of Treatment Future Test Test Name Order Date UPPER GI ENDOSCOPY 02/26/2014 COLONOSCOPY 02/26/2014 Insurance Providers Payer Name Payer Address Payer Phone Subscriber Number Group Number Insured Name Patient Relationship to Insured Coverage Start Date Coverage End Date MEDICARE OF [place] [address] [place] [id number] [phone] [id number] SRINIVASAN ALVARADO Self - patient is the insured [facility] SUPPLEMENTAL PLAN [address] [place] [address] [id number] SRINIVASAN ALVARADO Self - patient is the insured Medical (General) History Medical History History ICD Code Denies [place],DM,CVA,Lung [...]
--- OUTSIDE RECORDS SUMMARY | 2024-09-13 08:03 | XMS_ITS | Data Portability ---
Author Organization [facility] Service Address [address] [place] [address] Assessment Encounter Date Assessment Date Assessment LastModified [...] None recorded. Lab lipid panel, blood 2020 [facility], [address] [place] [place] [address], [place], [address], 13:17:16 CMP, serum or plasma 2020 [facility], [address] [place] [address], [place], [address], 13:17:16 CBC w/ auto diff 2020 [facility], [address] [place] [address], [place], [address], 1 13:17:16 CMP, serum or plasma 2019 [facility], [address] [place] [address], [place], [address], 0 15:24:12 CBC w/ auto diff 2019 [facility], [address] [place] [address], [place], [address], 0 15:24:12 CMP, serum or plasma 2019 VON Not available 0 16:01:10 Referral None recorded. Procedures None recorded. Surgeries None recorded. Imaging None recorded. Medication Orders celecoxib 200 mg capsule 2021 022 [facility] #[id number], [address], [place], [id number], 2 11:37:31 metronidaz ole 0.75 % topical cream 2021 [facility] #61525, [address], [place], [id number], 2 11:29:27 hydrochlor othiazide 25 mg tablet 2021 022 [facility] #58117, [address], [place], [id number], 2 11:31:03 hydrochlor othiazide 25 mg tablet 2019 [facility] #11342, [address], [place], [id number], 0 10:39:17 Patient TargetsNo targets recorded. Patient Instructions Encounter Date Encounter Id Patient Instructions Last Modified By Organization Details Last Modified Time 03/12/2020 [id number] rhythm strip, EKG* VON Not available 03/12/2020 17:29:18 Reason for Referral None Reported. Results Created Date Observation Date Name Description Value Unit Range Abnormal Flag Note LastModifiedBy Organization Detail LastModifiedTime 03/12/20 20 03/12/2020 rhyth m strip , EKG* No observ ation record ed. [facility] [address], [place], [address], 03/16/2020 09:55:12 09/02/19 21 08/31/2020 MAMMO , scree andres, digit al, bilat eral No observ ation record ed. [address] [place], [address], 09/01/2020 14:06:45 01/04/20 21 01/03/2021 XR, knee No observ ation record ed. [facility] [address] [place], [address], 01/03/2021 16:03:47 09/06/19 22 09/02/2021 MAMMO , scree andres, digit al, bilat eral No observ ation record ed. [address] [place], [address], 09/05/2021 12:30:19 Result Notes None recorded. Problems Name Problem SNOMED Code Status Onset Date Resolution Date Notes Provider Name and Address Organization Details Recorded Time Essential hypertensi on 17605922 Active 2017 Not Available [facility] 0 11:57:35 Hyperchole sterolemia 25229893 Active 2017 Not Available [facility] 0 11:57:35 Gastric reflux 126940175 Active 2017 Not Available [facility] 0 11:57:35 Degenerati on of interverte bral disc 58587300 Active 2017 Not Available [facility] 0 11:57:35 Insomnia 267454429 Active 2018 Not Available [facility] 0 11:57:35 Kamran 539936925 Active [address] [place], [address], [facility] 2 11:27:44 Problem Notes None recorded. Procedures Surgical History Date Name Laterality Status Provider Name and Address Organization Details Recorded Time 018 Most Recent Mammogram completed Hamida Pinedo [facility] 05/06/2019 09:57:25 018 laminectomy completed Brigette Cates NP, S [address] [place] [address], [address], [facility] 05/01/2018 14:57:46 014 Colonoscopy completed [facility] 04/30/2018 14:53:24 Cataract Surgery completed [facility] 04/30/2018 14:51:58 complete repair of rotator cuff completed [facility] 04/30/2018 14:52:29 Appendectomy completed Brigette grullon NP, S [address] [place] [address], [address], [facility] 04/30/2018 16:37:33 tonsillectomy completed Brigette menendez NP, S [address] [place] [address], [address], [facility] 04/30/2018 16:38:54 Imaging Results Imaging Date Name Status LastModified by Organiz ation Details LastModified Time 03/12/2020 rhythm strip, EKG* [facility] [address], [place], [address], 03/16/2020 09:55:12 08/31/2020 MAMMO, screening, digital, bilateral completed [facility] [address] [place] [address] [place], [address], 09/01/2020 14:06:45 01/03/2021 XR, knee completed [facility] [address] [facility], [place], [address], 01/03/2021 16:03:47 09/02/2021 MAMMO, screening, digital, bilateral completed [facility] [address] [place], [address], 09/05/2021 12:30:19 Procedure Notes None recorded. Medical Equipment None Reported. Allergies Allergen ID Allergen Name Allergen Category Reaction Reaction Severity Criticality Documentation Date Start Date Code Code System Note Provider Name and Address Organization Details Recorded Time 2553 ampicilli n medicatio n Not available Not available Not available 04/30/2018 733 RxNorm Claire valencia [facility] 8 14:43:03 2554 tetracycl ine medicatio n Not available Not available Not available 04/30/2018 42573 RxNorm Claire valencia [facility] 8 14:43:18 2555 Chloromyc etin medicatio n Not available Not available Not available 04/30/2018 84397 8 RxNorm Claire Tovar [facility] 8 14:51:28 3665 adhesive tape environme nt,medica tion rash Not available Not available 06/10/2019 41484 UNK Hamida Mahmoodaugustine [facility] 0 10:05:05 Medications [...] completed Not Available Not Available Not Available [facility] 3 02/16 completed Not Available Not Available [...] Updated DateTime 0 160.02 cm 32.8 kg/m2 79146.6 7 g 78 /min 98 % 98 % 148 mm[Hg] 92 mm[Hg] [facility] 0 10:29:24 Date Recorded Body height Body mass index (BMI) Body weight Heart rate Oxygen saturation Oxygen saturation in Arterial blood by Pulse oximetry Systolic blood pressure Diastolic blood pressure Provider Name and Address Organization Details Last Updated DateTime 0 160.02 cm 32.9 kg/m2 40481.8 2 g 78 /min 97 % 97 % 130 mm[Hg] 82 mm[Hg] [facility] 0 14:26:47 Date Recorded Body height Body mass index (BMI) Body weight Oxygen saturation Oxygen saturation in Arterial blood by Pulse oximetry Heart rate Systolic blood pressure Diastolic blood pressure Provider Name and Address Organization Details Last Updated DateTime 1 160.02 cm 33.4 kg/m2 02647.2 4 g 97 % 97 % 83 /min 158 mm[Hg] 90 mm[Hg] Lianna [facility] 1 11:28:23 Date Recorded Body height Oxygen saturation Oxygen saturation in Arterial blood by Pulse oximetry Heart rate Systolic blood pressure Diastolic blood pressure Provider Name and Address Organization Details Last Updated DateTime 2 160.02 cm 99 % 99 % 74 /min 158 mm[Hg] 90 mm[Hg] Lianna [facility] 2 11:16:48 Social History [...] virus, quadrivalent, preservative 8 completed Hamida valencia [facility] 03/12/2020 14:22:57 Influenza, split virus, quadrivalent, preservative 1 completed Lianna valencia [facility] 05/10/2021 08:45:09 COVID-19, mRNA, LNP-S, PF, 30 mcg/0.3 mL dose 1 completed Lianna valencia [facility] 05/10/2021 08:45:31 COVID-19, mRNA, LNP-S, PF, 30 mcg/0.3 mL dose 1 completed Lianna valencia [facility] 05/10/2021 08:45:46 Td(adult) unspecified formulation 9 completed Lianna valencia [facility] 05/10/2021 08:46:19 Influenza, split virus, quadrivalent, preservative 9 completed Hamida valencia [facility] 03/12/2020 14:22:57 Influenza, split virus, quadrivalent, preservative 0 completed Hamida valencia [facility] 03/12/2020 14:22:57 Past Encounters Encounter ID Performer Location Encounter Start Date Encounter Closed Date Diagnosis/Indication Diagnosis SNOMED-CT Code Diagnosis ICD10 Code Diagnosis Note [id number] Brigette Cates NP, S [facility] [address],[place] [address] 05/01/2018 13:37:32 05/01/2018 15:16:02 Essential hypertension 08080831 I10 Degenerati on of intervertebral disc 77764600 M51.9 S/P laminectom y Hypercholesterolemia 136 87649 E78.00 Decreased hearing 560238 001 H91.93 September CESAR Hannon [facility] [address], [place] [address] 11/01/2018 11:36:08 11/01/2018 12:10:37 Essential hypertension 43066413 I10 stable Degenerati on of intervertebral disc 43937074 M51.9 S/P laminectom y Hypercholesterolemia 136 87532 E78.00 taking lovastatin every other day - would really like to get off the med discussed diet for weight loss Insomnia 540314295 G47.0 0 takes a half at bedtime to help her sleep lots of stress Body mass index 30+ - obesity 145688644 Z68.33 discussed diet strategies cutting out sugar [...] to have water and tea while fasting [id number] CESAR Alfrde [facility] [address],[place] [address] 06/10/2019 09:46:55 06/10/2019 10:42:39 Essential hypertension 71275662 I10 mildly elevated d/c hctz start lisinopril 10 mg Degenerati on of intervertebral disc 29867217 M51.9 S/P laminectom y Hypercholesterolemia 136 58067 E78.00 taking lovastatin every other day - would really like to get off the med discussed diet for weight loss Insomnia 896042614 G47.0 0 takes a half at bedtime to help her sleep as needed lots of stress Body mass index 30+ - obesity 566232973 Z68.33 has lost about 10 lbs! has cut back her sugar intake due to her high bs last time Gastric reflux 730968820 K21.9 Hearing loss 64608772 H9 1.93 Advance care planning 71 7040909 Z71.89 HCP - planning to re-do her will/trust and update HCP [id number] [address] [facility] [address] [facility], [place] [address] 02/17/2020 10:22:21 02/17/2020 11:04:06 Essential hypertension 13023239 I10 will switch off losartan as patient states it makes her thirsty and dry mouth the patient would like to go back on HTCZ, will just monitor her kidney function more frequently Adult heal th examination 581327088 Z00.00 BP is elevated has been since switch from HTCZ to losartan will switch back and just watch kidneys closer never had issue with kidney function before on it Active or passive immunization 259235620 Z23 has shingle shot, old one long time ago getting flu shot at pharmacy [id number] [address] [facility] [address],[place] [address] 03/12/2020 14:10:33 03/12/2020 15:07:44 Pre-surgery evaluation 259897882 Z01.818 based on exam and history will clear for surgery pending labs and EKG will fax EKG separately after reading results [id number] [address] [facility] [address] [facility] [address] [place] [address] 05/18/2020 08:44:16 05/18/2020 10:08:45 Essential hypertension 66574584 I10 BP has been stable on the HTCZ, no side effects CMP looks good as well Osteoarthritis 733375466 M19.90 improvemen t with surgery and PT, if need surgeon will clear out arthritis behind her patella [id number] [address] [facility] Medicine [address],[place] [address] 05/13/2021 10:59:04 05/13/2021 12:18:39 Essential hypertension 34092062 I10 BP has been stable with other checks and with recheck in office Hypercholesterolemia 136 47352 E78.2 will recheck labsdiscus sed stopping as she has muscle aches with it constantly [id number] [address] [facility] Medicine [address],[place] [address] 09/07/2021 11:09:39 09/12/2021 09:03:07 Hypercholesterolemia 02782518 E78.2 will recheck labsdiscus sed stopping as she has muscle aches with it constantly Essential hypertension 67309419 I10 BP has been stable with other checks and with recheck in office Degenerati on of intervertebral disc 31494121 M51.06 seeing PT for the next 6 weeks Insomnia 448768926 G47.0 0 stable Rosacea 831279686 L71.8 will trial a course of metronidaz [...] 02/17/2020 2 [employer] Crystal [place] [id number] Crystal Holly 02/17/2020 1 MEDICARE B-[place]: [facility] Crystal G Holly [id number] Crystal Holly 03/12/2020 2 [employer] Crystal [place] [id number] Crystal Holly 03/12/2020 1 MEDICARE B-[place]: [facility] Crystal G Morrow [id number] Crystal [place]row 05/18/2020 2 [employer] Crystal Holly [id number] Crystal Holly 05/18/2020 1 MEDICARE B-[place]: [facility] Crystal G Morrow [id number] Crystal Morrow 05/13/2021 2 [employer] Crystal Holly [id number] Crystal Holly 05/13/2021 1 [facility] Crystal G Morrow [id number] Crystal Holly 09/07/2021 2 [employer] Crystal Holly [id number] Crystal Holly 09/07/2021 1 [facility] Crystal G Morrow [id number] Crystal [place] Notes Date Note Type Note Provider Name [...] good lighting in the home DICKSON STONE [address] [place] [address], [address], [facility] 02/17/2020 10:47:42 0 text/html Pre-OpReported bypatient.Surgery to be Performed:left knee arthroscopy Dr. Jimenez [facility] Risk Factorsno cognitive impairment; no functional impairment; [...] Support:adequate assistance at home DICKSON STONE [address] [place], [address], [facility] 03/12/2020 15:56:29 0 text/html 3 [...] sore throat, no fatigue DICKSON STONE [address] [place], [address], [facility] 05/18/2020 10:08:45 1 text/html medication [...] to her side effects DICKSON STONE [address] [place], [address], [facility] 05/13/2021 11:43:58 2 text/html medication [...] questions and concerns answered today DICKSON STONE [address] [place] [address], [place], [address], [facility] 09/07/2021 11:39:36 OBGyn Episode No OBEpisode recorded.
--- OUTSIDE RECORDS SUMMARY | 2024-09-13 08:03 | XMS_ITS | Encounter Summary ---
Author Organization [facility] Address [address] [place] [address] Care Team Providers Care Clinical Trial Assistant Name Role Phone Unavailable Primary Care Provider Unavailabl e Encounter Details Date Type Department Care Team (Late st Contact Info) Description 03/17/2020 Lab Requisition [facility] [address] [place] [address] Boo Milian PA-C [address] [place] [address] Encounter for laboratory testing for COVID-19 virus [...] DETECTED Not Detected 03/18/2020 5:59 PM EDT [employer] Comment: ADDITIONAL INFORMATION The SU[employer] COVID-19 RT-PCR Assay is Real-Time Reverse Electrician Marine Polymerase Chain Reaction (hospital sales representative-PCR) for the in vitro qualitative detection of three SARS-Cov-2 target sequences unique to the coronavirus disease 2019 (COVID-19). This is an Emergency Use Authorization (EUA) in vitro diagnostic (IVD) test that has been modified to include the [employer] automated liquid handler. Its analytical performance characteristics have been determined by the cassandra consultant and verified by [facility] in a manner consistent with CLIA [...] at the following links: For Healthcare Providers: https://www.fda.gov/media/475809/download For Patients: https://www.fda.gov/media/451710/download TEST LIMITATIONS Positive results are indicative of [...] system. For further details refer to the [employer] TaqPath COVID-19 Combo Kit EUA submission (https://www.Revenew.gov/media/143835/download). ----- Test performed by [facility], [address] [place], [place] [address] CLIA# [id number] ?[id number] ? Antoine Shah M.D., Ph.D., [facility], Clinical Sleeve Setter Lockstitch Microbiology Nasopharyngeal swab / Unknown 03/17/2020 2:45 PM EDT 03/17/2020 2:45 PM EDT Narrative [facility] - 03/18/2020 5:59 PM EDT Performed at [facility], [address], [place], [place] [address], CLIA [id number] Boo Milian PA-C MICROBIOLOGY - NERAL ORDERABLES [facility] [address] [place] [address] documented in this encounter Visit Diagnoses Diagnosis Encounter for laboratory testing for COVID-19 virus documented in this encounter
--- OUTSIDE RECORDS SUMMARY | 2024-09-13 08:03 | XMS_ITS | Clinical Summary ---
Author Organization [facility] Address [address] [place] [address] Care Team Providers Care Boiler Inspector Name Role Phone Unavailable Primary Care Provider [...]
--- OUTSIDE RECORDS SUMMARY | 2024-09-13 08:03 | XMS_ITS | Encounter Summary ---
Author Organization [facility] Address [address] [place] [address] Care Team Providers Care Top Lift And Automatic Window Repairer Name Role Phone Leonardo García MD Primary Care Provider [phone] Encounter Details Date Type Department Care Team (Late st Contact Info) Description 06/29/2024 Lab Requisition [facility] - Main Lab [address] [facility] [place] [address] Chris Barlow MD [address] [place] [address] Encounter for other general examination Social History [...] CBC auto differential (06/29/2024 5:48 AM EST) [facility] Signature WBC 9.9 4.8 - 10.8 K/mcL LAB HEMETOLOGY METHOD 06/29/2024 10:26 AM [facility] RBC 3.60(L) 3.80 - 4.80 M/mcL LAB HEMETOLOGY METHOD 06/29/2024 10:26 AM [facility] Hemoglobin 11.2(L) 11.5 - 16.0 g/dL LAB HEMETOLOGY METHOD 06/29/2024 10:26 AM [facility] Hematocrit 33.3(L) 35.0 - 47.0 % LAB HEMETOLOGY METHOD 06/29/2024 10:26 AM [facility] MCV 93.0 79.0 - 98.0 FL LAB HEMETOLOGY METHOD 06/29/2024 10:26 AM [facility] MCH 31.3 27.0 - 32.0 pcg LAB HEMETOLOGY METHOD 06/29/2024 10:26 AM [facility] MCHC 33.6 32.0 - 37.0 g/dL LAB HEMETOLOGY METHOD 06/29/2024 10:26 AM [facility] RDW 13.8 11.0 - 15.0 % LAB HEMETOLOGY METHOD 06/29/2024 10:26 AM [facility] Platelets 373 130 - 400 K/mcL LAB HEMETOLOGY METHOD 06/29/2024 10:26 AM [facility] MPV 9.4 7.0 - 11.0 FL LAB HEMETOLOGY METHOD 06/29/2024 10:26 AM [facility] NRBC 0.0 <1.0 % LAB HEMETOLOGY METHOD 06/29/2024 10:26 AM [facility] NRBC Absolute 0.00 <0.10 K/mcL LAB HEMETOLOGY METHOD 06/29/2024 10:26 AM [facility] Neutrophils Relative 64.0 % LAB HEMETOLOGY METHOD 06/29/2024 10:26 AM [facility] Lymphocytes Relative 25.2 % LAB HEMETOLOGY METHOD 06/29/2024 10:26 AM [facility] Monocytes Relative 7.8 % LAB HEMETOLOGY METHOD 06/29/2024 10:26 AM [facility] Eosinophils Relative 2.0 % LAB HEMETOLOGY METHOD 06/29/2024 10:26 AM [facility] Basophils Relative 0.4 % LAB HEMETOLOGY METHOD 06/29/2024 10:26 AM [facility] Immature Granulocytes Relative 0.6 % LAB HEMETOLOGY METHOD 06/29/2024 10:26 AM [facility] Neutrophils Absolute 6.31 1.50 - 7.00 K/mcL LAB HEMETOLOGY METHOD 06/29/2024 10:26 AM [facility] Lymphocytes Absolute 2.49 1.00 - 5.00 K/mcL LAB HEMETOLOGY METHOD 06/29/2024 10:26 AM [facility] Monocytes Absolute 0.77 0.20 - 1.00 K/mcL LAB HEMETOLOGY METHOD 06/29/2024 10:26 AM [facility] Eosinophils Absolute 0.20 0.00 - 0.50 K/mcL LAB HEMETOLOGY METHOD 06/29/2024 10:26 AM [facility] Basophils Absolute 0.04 0.00 - 0.20 K/mcL LAB HEMETOLOGY METHOD 06/29/2024 10:26 AM [facility] Immature Granulocytes Absolute 0.06(H) 0.00 - 0.03 K/mcL LAB HEMETOLOGY METHOD 06/29/2024 10:26 AM EST [facility] Blood Venous blood specimen / Unknown Venipuncture / Unknown 06/29/2024 5:48 AM EST 06/29/2024 8:27 AM EST Chris Barlow MD LAB BLOOD ORDERABLES Final Resu lt Performing Organization Address City/[facility]/ZIP Co de Phone Number [facility] [address] [place] [address], [place] [phone] * Magnesium (06/29/2024 5:48 AM EST) [facility] Magnesium 2.2 1.9 - 2.6 mg/dL LAB CHEMISTRY METHOD 06/29/2024 10:10 AM EST [facility] Blood Venous blood specimen / Unknown Venipuncture / Unknown 06/29/2024 5:48 AM EST 06/29/2024 8:27 AM EST us Chris Barlow MD LAB BLOOD ORDERABLES Final Resu lt Performing Organization Address [facility]/ZIP Co de Phone Number [facility] [address] [place] [address], [place] [phone] * (ABNORMAL) Comprehensive metabolic panel (06/29/2024 5:48 AM EST) [facility] Sodium 134 133 - 145 mmol/L LAB CHEMISTRY METHOD 06/29/2024 10:10 AM EST [facility] Potassium 3.7 3.5 - 5.5 mmol/L LAB CHEMISTRY METHOD 06/29/2024 10:10 AM EST [facility] Chloride 100 96 - 110 mmol/L LAB CHEMISTRY METHOD 06/29/2024 10:10 AM EST [facility] CO2 29 21 - 32 mmol/L LAB CHEMISTRY METHOD 06/29/2024 10:10 AM EST [facility] Anion Gap 5 3 - 11 LAB CHEMISTRY METHOD 06/29/2024 10:10 AM [facility] Glucose 86 70 - 100 mg/dL LAB CHEMISTRY METHOD 06/29/2024 10:10 AM [facility] BUN 18 5 - 25 mg/dL LAB CHEMISTRY METHOD 06/29/2024 10:10 AM [facility] Creatinine 0.66 0.50 - 1.10 mg/dL LAB CHEMISTRY METHOD 06/29/2024 10:10 AM [facility] eGFR 88 >=60 mL/min/1. 73m2 LAB CHEMISTRY METHOD 06/29/2024 10:10 AM [facility] Comment:Calculation based on the??Chronic Kidney Disease Epidemiology Collaboration (CKD-EPI) equation refit??without adjustment for race. BUN/Creatinine Ratio 27.3 LAB CHEMISTRY METHOD 06/29/2024 10:10 AM [facility] Calcium 8.9 8.5 - 10.5 mg/dL LAB CHEMISTRY METHOD 06/29/2024 10:10 AM [facility] AST (SGOT) 36 10 - 42 unit/L LAB CHEMISTRY METHOD 06/29/2024 10:10 AM [facility] ALT (SGPT) 69(H) 10 - 60 unit/L LAB CHEMISTRY METHOD 06/29/2024 10:10 AM [facility] Alkaline Phosphatase 141(H) 42 - 121 unit/L LAB CHEMISTRY METHOD 06/29/2024 10:10 AM [facility] Total Protein 5.9(L) 6.0 - 8.0 g/dL LAB CHEMISTRY METHOD 06/29/2024 10:10 AM [facility] Albumin 3.2 3.2 - 5.0 g/dL LAB CHEMISTRY METHOD 06/29/2024 10:10 AM [facility] Total Bilirubin 0.8 0.0 - 1.4 mg/dL LAB CHEMISTRY METHOD 06/29/2024 10:10 AM EST [facility] Blood Venous blood specimen / Unknown Venipuncture / Unknown 06/29/2024 5:48 AM EST 06/29/2024 8:27 AM EST us Chris Barlow MD LAB BLOOD ORDERABLES Final Resu lt [facility] [address] [place] [address], documented in this encounter Visit Diagnoses Diagnosis Encounter for other general examination documented in this encounter Additional Health Concerns Infection Onset Date Last Indicated Resolved Time Respiratory Rule-Out 07/26/2024 07/26/2024 025 3:02 AM EST COVID-19 Rule-Out 07/26/2024 07/26/2024 07/26/2024 3:02 AM EST documented as of this encounter Care Teams Top Lift And Automatic Window Repairer Relationship Specialty Start Date End Date Leonardo García MD [address] [place] [address] PCP - General Internal Medicine 06/30/24 documented as of this encounter
--- OUTSIDE RECORDS SUMMARY | 2024-09-13 08:03 | XMS_ITS | Encounter Summary ---
Author Organization [facility] Address [address] [place] [address] Care Team Providers Care Dehydration Plant Operator Name Role Phone Leonardo García MD Primary Care Provider [phone] Encounter Details Date Type Department Care Team (Late st Contact Info) Description 07/07/2024 Lab Requisition [facility] - Main Lab [address] [facility] [place] [id number] Chris Barlow MD [address] [place] [address] Encounter for other general examination Social History [...] (07/07/2024 6:34 AM EST) [facility] WBC 6.0 4.8 - 10.8 K/mcL LAB HEMETOLOGY METHOD 07/07/2024 10:40 AM [facility] RBC 3.20(L) 3.80 - 4.80 M/mcL LAB HEMETOLOGY METHOD 07/07/2024 10:40 AM [facility] Hemoglobin 10.1(L) 11.5 - 16.0 g/dL LAB HEMETOLOGY METHOD 07/07/2024 10:40 AM [facility] Hematocrit 30.7(L) 35.0 - 47.0 % LAB HEMETOLOGY METHOD 07/07/2024 10:40 AM [facility] MCV 94.8 79.0 - 98.0 FL LAB HEMETOLOGY METHOD 07/07/2024 10:40 AM [facility] MCH 31.2 27.0 - 32.0 pcg LAB HEMETOLOGY METHOD 07/07/2024 10:40 AM [facility] MCHC 32.9 32.0 - 37.0 g/dL LAB HEMETOLOGY METHOD 07/07/2024 10:40 AM [facility] RDW 14.2 11.0 - 15.0 % LAB HEMETOLOGY METHOD 07/07/2024 10:40 AM [facility] Platelets 415(H) 130 - 400 K/mcL LAB HEMETOLOGY METHOD 07/07/2024 10:40 AM [facility] MPV 9.2 7.0 - 11.0 FL LAB HEMETOLOGY METHOD 07/07/2024 10:40 AM [facility] NRBC 0.0 <1.0 % LAB HEMETOLOGY METHOD 07/07/2024 10:40 AM [facility] NRBC Absolute 0.00 <0.10 K/mcL LAB HEMETOLOGY METHOD 07/07/2024 10:40 AM [facility] Neutrophils Relative 57.2 % LAB HEMETOLOGY METHOD 07/07/2024 10:40 AM [facility] Lymphocytes Relative 25.4 % LAB HEMETOLOGY METHOD 07/07/2024 10:40 AM [facility] Monocytes Relative 12.5 % LAB HEMETOLOGY METHOD 07/07/2024 10:40 AM [facility] Eosinophils Relative 3.8 % LAB HEMETOLOGY METHOD 07/07/2024 10:40 AM [facility] Basophils Relative 0.8 % LAB HEMETOLOGY METHOD 07/07/2024 10:40 AM [facility] Immature Granulocytes Relative 0.3 % LAB HEMETOLOGY METHOD 07/07/2024 10:40 AM [facility] Neutrophils Absolute 3.42 1.50 - 7.00 K/mcL LAB HEMETOLOGY METHOD 07/07/2024 10:40 AM [facility] Lymphocytes Absolute 1.52 1.00 - 5.00 K/mcL LAB HEMETOLOGY METHOD 07/07/2024 10:40 AM [facility] Monocytes Absolute 0.75 0.20 - 1.00 K/mcL LAB HEMETOLOGY METHOD 07/07/2024 10:40 AM [facility] Eosinophils Absolute 0.23 0.00 - 0.50 K/mcL LAB HEMETOLOGY METHOD 07/07/2024 10:40 AM [facility] Basophils Absolute 0.05 0.00 - 0.20 K/mcL LAB HEMETOLOGY METHOD 07/07/2024 10:40 AM [facility] Immature Granulocytes Absolute 0.02 0.00 - 0.03 K/mcL LAB HEMETOLOGY METHOD 07/07/2024 10:40 AM EST [facility] Blood Venous blood specimen / Unknown Venipuncture / Unknown 07/07/2024 6:34 AM EST 07/07/2024 9:05 AM EST us Chris Barlow MD LAB BLOOD ORDERABLES Final Resu lt [facility] [address] [place] [address], [place] [phone] * Basic metabolic panel (07/07/2024 6:34 AM EST) Sodium 135 133 - 145 mmol/L LAB CHEMISTRY METHOD 07/07/2024 11:20 AM [facility] Potassium 4.2 3.5 - 5.5 mmol/L LAB CHEMISTRY METHOD 07/07/2024 11:20 AM [facility] Chloride 100 96 - 110 mmol/L LAB CHEMISTRY METHOD 07/07/2024 11:20 AM [facility] CO2 28 21 - 32 mmol/L LAB CHEMISTRY METHOD 07/07/2024 11:20 AM [facility] Anion Gap 7 3 - 11 LAB CHEMISTRY METHOD 07/07/2024 11:20 AM [facility] Glucose 92 70 - 100 mg/dL LAB CHEMISTRY METHOD 07/07/2024 11:20 AM [facility] BUN 19 5 - 25 mg/dL LAB CHEMISTRY METHOD 07/07/2024 11:20 AM [facility] Creatinine 0.70 0.50 - 1.10 mg/dL LAB CHEMISTRY METHOD 07/07/2024 11:20 AM [facility] eGFR 86 >=60 mL/min/1. 73m2 LAB CHEMISTRY METHOD 07/07/2024 11:20 AM [facility] Comment:Calculation based on the??Chronic Kidney Disease Epidemiology Collaboration (CKD-EPI) equation refit??without adjustment for race. BUN/Creatinine Ratio 27.1 LAB CHEMISTRY METHOD 07/07/2024 11:20 AM EST [facility] Calcium 9.0 8.5 - 10.5 mg/dL LAB CHEMISTRY METHOD 07/07/2024 11:20 AM EST [facility] Blood Venous blood specimen / Unknown Venipuncture / Unknown 07/07/2024 6:34 AM EST 07/07/2024 9:05 AM EST us Chris Barlow MD LAB BLOOD ORDERABLES Final Resu lt [facility] [address] [place] [address], documented in this encounter Visit Diagnoses Diagnosis Encounter for other general examination documented in this encounter Additional Health Concerns Infection Onset Date Last Indicated Resolved Time Respiratory Rule-Out 07/26/2024 07/26/2024 025 3:02 AM EST COVID-19 Rule-Out 07/26/2024 07/26/2024 07/26/2024 3:02 AM EST documented as of this encounter Care Teams Dehydration Plant Operator Relationship Specialty Start Date End Date Leonardo García MD [address] [place] [address] PCP - General Internal Medicine 06/30/24 documented as of this encounter
--- OUTSIDE RECORDS SUMMARY | 2024-09-13 08:03 | XMS_ITS | Clinical Summary ---
Author Organization [facility] Address [address] [place] [address] Care Team Providers Care Hair Spring Winder Name Role Phone Ashleigh Grullon MD Primary Care Provider [phone] Allergies Active Allergy Reactions Criticality Noted Date Comments Ampicillin Anaphylaxis High 08/15/2017 Chloramphenicol Anaphylaxis High 08/15/2017 [place] 08/30/2017 Tape Rash Medium 08/30/2017 Paper tape, [...] MORNING AND IN THE EVENING 0 Active Grant-3 Fatty Acids (OMEGA-3 FISH OIL PO) Take 1 tablet by mouth daily. 0 Active UNABLE TO FIND Take 1 tablet by mouth daily. Med Name:Lipidene 0 Active UNABLE TO FIND Take 1 tablet by mouth daily. Med Name: Arthrozene 0 Active UNABLE TO FIND Take 1 tablet by mouth daily. Med Name: Walelr Guard 0 Active UNABLE TO FIND Take [...] Immunizations Name Administration Dates Next Due Covid-19 (MobiliBuy) Dilution Required 05/11/2021,0 08/04/2020,07/14/2020 Social History Tobacco [...] this topic Medical Devices Implanted Type Area Marketing Lead Device Identifier Shelf Expiration Date Model / Serial / Lot Screw 6.5 X 45.Mm - [id number] - [id number] Implanted:Qty : 1 on 08/30/2017 by Emeka Lopez MD at [facility] Posterior: Spine Lumbar [employer] 1067.1645 / / 6.5 X 50mm Screw Modular Creo Amp - [id number] - [id number] Implanted:Qty : 3 on 08/30/2017 by Emeka Lopez MD at [facility] Posterior: Spine Lumbar [employer] 1067.1650 / / 5.5 Polyaxial Tulip Threaded Creo Amp - 003703 - [id number] Implanted:Qty : 4 on 08/30/2017 by Emeka Lopez MD at [facility] [place] [facility] Posterior: Spine Lumbar [employer] 1119.0110 / / 5.5 Threaded Locking Cap Creo - 662483 - [id number] Implanted:Qty : 4 on 08/30/2017 by Emeka Lopez MD at [facility] Posterior: Spine Lumbar [facility] 1119.0010 / / 5.5mm Curved Gurpreet Titanium Alloy 40mm Length - [id number] - [id number] Implanted:Qty : 2 on 08/30/2017 by Emeka Lopez MD at [facility] [place] [facility] Posterior: Spine Lumbar [facility] 1119.7040 / / Lp Hex Screw 6.5x20mm Stry-Howm 3766-1704-371 457 - [id number] Implanted:Qty : 1 on 02/16/2022 by Ottoniel Wells MD at [facility] Left: Hip [employer] [id number] 11/23/2026 5754-7222 / / [id number] Hip Insrt X3 Trident 0d 36mm E Stry-Howm 179-58-79r-20 0921 - [id number] Implanted:Qty : 1 on 02/16/2022 by Ottoniel Wells MD at [facility] Left: Hip [employer] [id number] 09/24/2025 623-10-36 E / / [id number] Hip Stm Parveen 127 #2 30 124 Stry-Howm 2996-8207u-06 7932 - [id number] Implanted:Qty : 1 on 02/16/2022 by Ottoneil Wells MD at [facility] Left: Hip [employer] [id number] 10/21/2026 2530-5499 D / / [id number] Plug Bone Sm Stry-Howm 2915-2-335-14 3871 - [id number] Implanted:Qty : 1 on 02/16/2022 by Ottoniel Wells MD at [facility] Left: Hip [employer] [id number] 11/16/2026 6215-5-00 1 / / [id number] E Hip Dist Spacer Ostnc Univ #8 Stry-Howm 9486-8574-462 590 - [id number] Implanted:Qty : 1 on 02/16/2022 by Ottoniel Wells MD at [facility] Left: Hip [employer] [id number] 01/19/2027 0712-7607 / / [id number] Hip Head Delta Biolox 36mm-2.5 Stry-Howm 7266-4-125-54 9191 - [id number] Implanted:Qty : 1 on 02/16/2022 by Ottoniel Wells MD at [facility] Left: Hip [employer] [id number] 11/10/2026 6570-0-43 6 / / [id number] Cement Bone Surg Simplex Radiopq Stry-Howm 7799-7-478-11 4092 - [id number] Implanted:Qty : 1 on 02/16/2022 by Ottoniel Wells MD at [facility] Left: Hip [employer] [facility] [id number] 05/03/2023 6190-06-04 0 / / [id number] Cement Bone Surg Simplex Radiopq Stry-Howm 1179-7-756-11 4092 - [id number] Implanted:Qty : 1 on 02/16/2022 by Ottoniel Wells MD at [facility] Left: Hip [employer] [id number] 05/03/2023 6190-06-04 0 / / [id number] Lp Hex Screw 6.5x30mm Stry-Howm 7994-2862-757 478 - [id number] Implanted:Qty : 1 on 02/16/2022 by Ottoniel Wells MD at [facility] Left: Hip [employer] [facility] [id number] 12/15/2026 2503-0602 / / [id number] Tritanium Cluster Hole Shell 52mm Stry-Howm 860-53-98b-77 0473 - [id number] Implanted:Qty : 1 on 02/16/2022 by Ottoniel Wells MD at [facility] Left: Hip [employer] [id number] 09/28/2026 702-04-52 E / / [id number] Advance Directives For more information, please contact: [phone] Documents on File Type Date Recorded Patient Interlocker Maintainer Expl anation Advance Directive and Living Will [...] way: discussion with patient . Care Teams Hair Spring Winder Relationship Specialty Start Date End Date Cichon, Ashleigh, MD [address] [place] [address] PCP - General Tank Builder Supervisor 01/02/22
--- OUTSIDE RECORDS SUMMARY | 2024-09-13 08:03 | XMS_ITS | Clinical Summary ---
Author Organization [address] Address [address] [place] [phone] Phone Care Team Providers Care Termite Control Service Representative Name Role Phone Leonardo García MD Primary Care Provider [phone] Allergies No known active allergies Medications aspirin 81 mg chewable tablet Chew 1 tablet (81 mg total) 1 (one) time each day at the same time. 5 Active baclofen (LIORESAL) 10 mg tablet Take 1 tablet (10 mg total) by mouth 2 (two) times a day if needed for muscle spasms. 5 Active omeprazole (PriLOSEC) [address] capsule Take 1 capsule (40 mg total) by mouth 1 (one) time each day at the same time. 5 Active docusate sodium (COLACE) 100 mg capsule [...] IMPROVE AND YOU ARE INSTRUCTED TO RESUME 5 Active amLODIPine (NORVASC) 2.5 mg tablet Take 2 tablets (5 mg total) by mouth 1 (one) time each day. 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 ([facility] V24, [facility] V28) 07/18/2024 Gastro-esophageal reflux disease without esophag itis 07/18/2024 Adult failure to thrive 07/18/2024 Rosacea 09/07/2021 Insomnia 11/01/2018 Essential hypertension 04/30/2018 Encounters Date Type Department Care Team Description 07/25/2024 11:18 AM EST - 07/27/2024 1:30 PM [facility] Hospital Encounter [facility] [address] [place] [phone] Jomar Booth MD Surendran, Anupama, MD Hypokalemia (Primary Dx); Colon wall thickening; Elevated liver transaminase level Discharge Disposition: Penitentiary Facility 07/07/[address] [facility] [address] [place] [phone] Chris Barlow MD Encounter for other general examination 07/06/[address] [facility] [address] [place] [phone] Chris Barlow MD Encounter for other general examination 07/05/[address] [facility] [address] [place] [phone] Chris Barlow MD Encounter for other general examination 06/29/[address] [facility] [address] [place] [phone] Chris Barlow MD Encounter for other general examination 06/23/[address] [facility] [address] [place] [phone] Chris Barlow MD Encounter for other general examination 06/22/[address] [facility] [address] [place] [phone] Chris Barlow MD Encounter for other general examination 06/21/2024 Lab Requisition [facility] Lab [address] [place] [phone] Chris Barlow MD Encounter for [...] LAMINECTOMY DECOMPRESSION; Surgeon: Emeka Lopez MD; Location: [facility]IN [facility]PER[facility]; Service: Spine; Laterality: Bilateral Posterior; LUMBAR FUSION 08/30/2017 Bilateral Posterior PROCEDURE:LUMBAR FUSION;COMMENT:Procedure: L4 - 5 FUSION SPINE LUMBAR POSTERIOR, INSTRUMENTED ARTHRODESIS; Surgeon: Emeka Lopez MD; Location: [facility]; Service: Spine; Laterality: Bilateral Posterior; AUTOGRAFT/SPINE SURGERY 08/30/2017 Left PROCEDURE:AUTOGRAFT/SPINE SURGERY;COMMENT:Procedure: AUTOGRAFT BONE SPINE; Surgeon: Emeka Lopez MD; Location: [facility]; Service: Spine; Laterality: Left; TOTAL KNEE ARTHROPLASTY 01/03/2021 Left PROCEDURE:TOTAL KNEE ARTHROPLASTY TOTAL HIP ARTHROPLASTY 02/16/2022 Left PROCEDURE:TOTAL HIP ARTHROPLASTY;COMMENT:David escalerae: REPLACEMENT TOTAL HIP; Surgeon: Ottoniel Wells MD; Location: [facility] Service: Orthopedics; Laterality: Left; Medical History Medical History Date Comments Bronchitis, chronic (CMS/HCC V24, CMS/HCC V28) DX:Bronchitis, chronic (HCC);COMMENT:May 2017 GERD (gastroesophageal reflux [...] Vaccines (1 of 2) 1961 RSV Immunization Adult Patients (1 - 1-dose 75+ series) 2017 Cholesterol [...] age to complete this topic Meningococcal B Vaccine Aged Out No l onger eligible based on patient's age to complete this topic RSV Immunization Patients Under 20 months Aged Out No longer eligible based on patient's age to complete this topic Varicella Vaccines Aged Out No longer eligible based on patient's age to complete this topic Medical Devices Implanted Type Area Dry Cans Operator Device Identifier Shelf Expiration Date Model / Serial / Lot Cement Bone Surg Simplex Radiopq Stry-Howm [id number] Implanted:Qty: 1 on 02/16/2022 by Ottoniel Wells MD Left: Hip [employer] [id number] 05/03/2023 6191-1-010 / / [id number] Hip Head Delta Biolox 36mm-2.5 Stry-How [id number] Implanted:Qty: 1 on 02/16/2022 by Ottoniel Wells MD Left: Hip [employer] [id number] 11/10/2026 6570-0-436 / / [id number] Cement Bone Surg Simplex Radiopq Stry-Howm [id number] 092 Implanted:Qty: 1 on 02/16/2022 by Ottoniel Wells MD Left: Hip [employer] [id number] 05/03/2023 6191-1-010 / / [id number] Lp Hex Screw 6.5x30mm Stry-Howm [id number] 78 Implanted:Qty: 1 on 02/16/2022 by Ottoniel Wells MD Left: Hip [employer] [id number] 12/15/2026 0468-6928 / / [id number] Tritanium Cluster Hole Shell 52mm Stry-Howm [id number] Implanted:Qty: 1 on 02/16/2022 by Ottoniel Wells MD Left: Hip [employer] [id number] 09/28/2026 702-04-52E / / [id number] Lp Hex Screw 6.5x20mm Stry-Howm [id number] 57 Implanted:Qty: 1 on 02/16/2022 by Ottoniel Wells MD Left: Hip [employer] [id number] 11/23/2026 3318-4800 / / [id number] Hip Insrt X3 Trident 0d 36mm E Stry-Howm [id number]-200 921 Implanted:Qty: 1 on 02/16/2022 by Ottoniel Wells MD Left: Hip [employer] [id number] 09/24/2025 623-10-36E / / [id number] Hip Stm Parveen 127 #2 30 124 Stry-Howm [id number] 932 Implanted:Qty: 1 on 02/16/2022 by Ottoniel Wells MD Left: Hip [employer] [id number] 10/21/2026 6057-0230D / / [id number] Plug Bone Sm Stry-Howm [id number] 871 Implanted:Qty: 1 on 02/16/2022 by Ottoniel Wells MD Left: Hip [employer] [id number] 11/16/2026 6215-5-001 / / [id number] Hip Dist Spacer Ostnc Univ #8 Stry-Howm [id number] 90 Implanted:Qty: 1 on 02/16/2022 by Ottoniel Wells MD Left: Hip [employer] [id number] 01/19/2027 7935-5020 / / [id number] Procedures Procedure Name Priority Date/Time Associated Diagnosis [...] 7:50 AM [facility] Basophils Absolute 0.07 0.00 - 0.20 K/mcL LAB HEMETOLOGY METHOD 07/27/2024 7:50 AM [facility] Immature Granulocytes Absolute 0.02 0.00 - 0.03 K/mcL LAB HEMETOLOGY METHOD 07/27/2024 7:50 AM [facility] Blood Venous blood specimen / Unknown Venipuncture / Unknown 07/27/2024 6:22 AM EST 07/27/2024 7:09 AM EST Jeannie FORMAN LAB BLOOD ORDERABLES Final Result [facility] [address] [place] [address], [place] [phone] * (ABNORMAL) Hepatic function panel (07/27/2024 6:22 [...] Jeannie FORMAN LAB BLOOD ORDERABLES Final Result [facility] [address] [place] [address], [place] [phone] * (ABNORMAL) Basic metabolic panel (07/27/2024 6:22 [...] LAB CHEMISTRY METHOD 07/27/2024 7:47 AM EST [facility] eGFR 94 >=60 mL/min/1. 73m2 LAB CHEMISTRY METHOD 07/27/2024 7:47 AM EST [facility] Comment:Calculation based on the??Chronic Kidney Disease Epidemiology Collaboration (CKD-EPI) equation refit??without adjustment for race. BUN/Creatinine Ratio 20.4 LAB CHEMISTRY METHOD 07/27/2024 7:47 AM EST [facility] Calcium 9.4 8.5 - 10.5 mg/dL LAB CHEMISTRY METHOD 07/27/2024 7:47 AM EST [facility] Blood Venous blood specimen / Unknown Venipuncture / Unknown 07/27/2024 6:22 AM EST 07/27/2024 7:10 AM EST us Jeannie FORMAN LAB BLOOD ORDERABLES Final Result [facility] [address] [place] [address], [place] [phone] * MR Abdomen wo and w Contrast [...] MD on 07/26/2024 15:28:50 Jomar Booth MD IMG MRI PROCEDURES Final Re sult * Prothrombin time with INR (07/26/2024 6:14 AM EST) Only the most recent of2 resultswithin the time period is included. Protime 11.3 10.6 - 13.9 sec LAB COAGULATION METHOD 07/26/2024 7:26 AM EST [facility] INR 0.9 LAB COAGULATION METHOD 07/26/2024 7:26 AM EST [facility] Blood Venous blood specimen / Unknown Venipuncture / Unknown 07/26/2024 6:14 AM EST 07/26/2024 6:51 AM EST us Jomar Booth MD LAB BLOOD ORDERABLES Final Result [facility] [address] [place] [address], [place] [phone] * (ABNORMAL) Comprehensive metabolic panel (07/26/2024 6:14 [...] Booth MD LAB BLOOD ORDERABLES Final Result [facility] [address] [place] [address], * Respiratory virus panel molecular study (07/26/2024 [...] 2:05 AM EST 07/26/2024 2:14 AM EST Narrative [facility] - 07/26/2024 3:02 AM EST Testing was performed using the DailyBurn Respiratory Pathogen PCR Assay. All results must [...] MICROBIOLOGY - GENERAL OR DERABLES Final Result [facility] [address] [place] [address], [place] [phone] * US Abdomen Limited (07/26/2024 12:37 AM [...] on 07/26/2024 01:02:43 us Jomar Booth MD IM US PROCEDURES Final Res ult * (ABNORMAL) Urinalysis with reflex microscopic and culture (07/25/2024 7:41 PM EST) Only the most recent of2 resultswithin the time period is included. Specific [place] Urine 1.040(H) 1.003 - 1.030 LAB URINALYSIS [...] Booth MD LAB URINE ORDERABLES Final Result [facility] [address] [place] [address], * Jay urine culture tube (07/25/2024 7:41 PM EST) Only the most recent of2 resultswithin the time period is included. Extra Tube Hold for add-ons. 07/25/2024 9:01 PM [facility] Comment:Auto resulted. Urine Urine specimen obtained by clean catch procedure / Unknown Non-blood Collection / Unknown 07/25/2024 7:41 PM EST 07/25/2024 7:59 PM EST us Jomar Booht MD LAB URINE ORDERABLES Final Result [facility] [address] [place] [address], [place] [phone] * (ABNORMAL) Culture urine (07/25/2024 7:41 PM EST) Only the most recent of2 resultswithin the time period is included. Culture, Urine 50,000-100,000 CFU/mL Escherichia coli(A) JUDIE 07/27/2024 11:55 AM EST [facility] Comment: This is an edited result. Previous organism was Gram negative bacilli on 07/26/2024 at 1325 EST. Urine Urine specimen obtained by clean catch procedure / Unknown Non-blood Collection / Unknown 07/25/2024 7:41 PM EST 07/25/2024 8:57 PM EST Narrative [facility] - 07/27/2024 11:55 AM EST [...] GENERAL ORDERABLES Final Result Performing Organization Address [facility]/ZIP Co de Phone Number [facility] [address] [place] [address], [place] [phone] * Lactate (07/25/2024 7:34 PM EST) Lactate 1.2 0.4 - 2.0 mmol/L LAB CHEMISTRY METHOD 07/25/2024 8:37 PM EST [facility] Blood Venous blood specimen / Unknown Venipuncture / Unknown 07/25/2024 7:34 PM EST 07/25/2024 7:59 PM EST Kaci Aaron Lopez DO LAB BLOOD ORDERABLES Payal l Result Performing Organization Address [facility] Co de Phone Number [facility] [address] [place] [address], [place] [phone] * CT Abdomen Pelvis w Contrast (07/25/2024 [...] by: Janice Chaparro MD on 07/25/2024 17:55:43 us Brianna [address]MAN IMG CT PROCEDURES Final Re sult * (ABNORMAL) Bilirubin duplicate procedure to order (07/25/2024 2:10 PM EST) Total Bilirubin 2.2(H) 0.0 - 1.4 mg/dL LAB CHEMISTRY METHOD 07/25/2024 3:26 PM EST [facility] Bilirubin, Direct 1.4(H) 0.0 - 0.3 mg/dL LAB CHEMISTRY METHOD 07/25/2024 3:26 PM EST [facility] Bilirubin, Indirect 0.8 0.0 - 1.1 mg/dL LAB CHEMISTRY METHOD 07/25/2024 3:26 PM EST [facility] Blood Venous blood specimen / Unknown Venipuncture / Unknown 07/25/2024 2:10 PM EST 07/25/2024 2:23 PM EST us Brianna FORMAN LAB BLOOD ORDERABLES Final Result [facility] [address] [place] [address], [place] [phone] * Hepatitis panel, acute with reflex to confirmation (07/25/2024 2:10 PM EST) Pathologist [facility] Hepatitis B Surface Ag Negative Negative LAB CHEMISTRY METHOD 07/25/2024 7:43 PM EST [facility] Hepatitis A Antibody IgM Negative Negative LAB CHEMISTRY METHOD 07/25/2024 7:43 PM EST [facility] Hep B Core IgM Negative Negative LAB CHEMISTRY METHOD 07/25/2024 7:43 PM EST [facility] Hepatitis C Antibody Negative Negative LAB CHEMISTRY METHOD 07/25/2024 7:43 PM EST [facility] Blood Venous blood specimen / Unknown Venipuncture / Unknown 07/25/2024 2:10 PM EST 07/25/2024 2:23 PM EST Kaci Lopez DO LAB BLOOD ORDERABLES Payal l Result [facility] [address] [place] [address], * Magnesium (07/25/2024 2:10 PM EST) Only the most recent of5 resultswithin the time period is included. [facility] Magnesium 2.0 1.9 - 2.6 mg/dL LAB CHEMISTRY METHOD 07/25/2024 10:55 PM EST [facility] Blood Venous blood specimen / Unknown Venipuncture / Unknown 07/25/2024 2:10 PM EST 07/25/2024 2:23 PM EST Jomar Booth MD LAB BLOOD ORDERABLES Final Result [facility] [address] [place] [address], [place] [phone] * Lipase (07/25/2024 2:10 PM EST) [facility] Lipase 21 13 - 75 unit/L LAB CHEMISTRY METHOD 07/25/2024 6:50 PM EST [facility] Blood Venous blood specimen / Unknown Venipuncture / Unknown 07/25/2024 2:10 PM EST 07/25/2024 2:23 PM EST Marinovee Eligio Galen Lopez DO LAB BLOOD ORDERABLES Payal l Result Performing Organization Address [facility] de Phone Number [facility] [address] [place] [address], [place] [phone] * (ABNORMAL) GGT (07/25/2024 2:10 PM EST) [facility] GGT 933(H) 7 - 64 unit/L LAB CHEMISTRY METHOD 07/25/2024 9:38 PM EST [facility] Blood Venous blood specimen / Unknown Venipuncture / Unknown 07/25/2024 2:10 PM EST 07/25/2024 2:23 PM EST us Jomar Booth MD LAB BLOOD ORDERABLES Final Result Performing Organization Address [facility] de Phone Number [facility] [address] [place] [address], [place] [phone] * (ABNORMAL) Acetaminophen level (07/25/2024 2:10 PM EST) [facility] Acetaminophen Level <2.0(L) 10.0 - 30.0 mcg/mL LAB CHEMISTRY METHOD 07/25/2024 6:50 PM EST [facility] Blood Venous blood specimen / Unknown Venipuncture / Unknown 07/25/2024 2:10 PM EST 07/25/2024 2:23 PM EST us Kaci Lopez DO LAB BLOOD ORDERABLES Payal l Result Performing Organization Address [facility] Co de Phone Number [facility] [address] [place] [address], [place] [phone] * (ABNORMAL) POCT Glucose, blood (07/25/2024 11:26 AM EST) Glucose POCT 177(H) 70 - 100 mg/dL 07/25/2024 11:27 AM EST [facility] Blood Capillary blood specimen / Unknown 07/25/2024 11:26 AM EST 07/25/2024 11:29 AM EST us Generic Provider Poct LAB POINT OF CARE TEST DOCKED DEVICE UNSOLICITED RESULTS Final Result [facility] [address] [place] [address], [place] [phone] from Last 3 Months Insurance MEDICARE [facility] Advance Directives Documents on File Type Date Recorded Patient Carding Machine Feeder Expl anation Health Care Decision (hx) 02/16/2022 [...] currently active code status orders. Care Teams Termite Control Service Representative Relationship Specialty Start Date End Date Leonardo García MD [address] [place] [id number] PCP - General Internal Medicine 06/30/24
[2024-09-13 11:43] LABS: Anion Gap 11 (12-20); Blood Urea Nitrogen 17 mg/dL (9-16); Calcium 9.4 mg/dL (8.4-10.2); Carbon Dioxide 25 mmol/L (22-29); Chloride 107 mmol/L (96-108); Cholesterol 203 mg/dL (<200); Estimated Glomerular Filt Rate > 60; Glucose Random 103 mg/dL (60-115); HDL Cholesterol 38 mg/dL (>40); LDL Cholesterol Calculated 130 mg/dL (<100); Potassium 4.1 mmol/L (3.3-5.1); Sodium 139 mmol/L (135-145); Triglycerides 177 mg/dL (<150)
== END 2024-09-13 08:02 | disposition home or self-care (01) ==
LOC: HO.HMGCLDS 08:01
PROVIDERS: PCP Internal Medicine; Visit Provider Internal Medicine
DX: E87.6 Hypokalemia (principal); E78.5 Hyperlipidemia, unspecified
CPT/HCPCS: 36415; 80048; 80061

== ENCOUNTER 2024-10-29 08:41 | Outpatient (AMB) | payer MEDICARE, SELFPAY ==
[2024-10-29 08:51] VITALS: BP 134/76; PULSE 81; RESP 18; TEMP 36.7; O2SAT 96; BMI 29.0
--- NOTE | 2024-10-29 08:51 | A.OFFPC_ITS ---
Vital Signs 10/29/24 08:51 Height 5 ft 4 in Weight 169 lb BMI 29.0 BP 134/76 Blood Pressure Location Rt brachial Position Sitting Respiration 18 Pulse 81 Pulse Source Pulse Oximeter Temp 98.1 F Temp Source Oral Pulse Oximetry (%) 96 Oxygen Delivery Method Room Air Intake Visit Reasons: 2m f/u Intake Note: Pt is here today for 2 months follow up visit. Pt states that she has been having problem with her feet and her L foot has been swollen. Pt states that she gets dizzy feeling and feels like she will fall. Allergies ampicillin [AMPICILLIN] Allergy (Severe, Verified 08/28/24 10:40) swelling in face/itchy throat tetracycline [TETRACYCLINE] Allergy (Severe, Verified 08/28/24 10:40) itchy throat/swelling in face Medication List - Last Reconciled 10/29/24 by Ashleigh Grullon MD acetaminophen 975 mg (3 x 325 mg) PO Q8H aspirin 81 mg PO DAILY back brace LSO brace with thoracic extension CPT 10: M41.80 CHRISTOPHER: 99 loratadine (Claritin) 10 mg PO DAILY omeprazole 40 mg PO DAILY potassium chloride ER 20 mEq PO DAILY Tobacco use date assessed: 10/29/24 Fall risk assessment: 2 + Falls in past year Last assessed Fall Risk: 10/29/24 Dental Screening Dental Screen Date: 08/28/24 HPI 2m f/u HPI Details Patient presents for the follow-up. She completed physical therapy for lower extremity weakness. Patient has been ambulating with a walker living in assisted living facility. She continues to have some memory lapses but is doing better overall. Patient reports lower extremity edema worse at the end of the day after sitting in the chair for most of the day. She denies chest pain shortness or breath, PND orthopnea PFSH Medical History (Updated 10/29/24 @ 16:24 by Ashleigh Grullon MD) Dementia Memory loss Lumbar stenosis Scoliosis (and kyphoscoliosis), idiopathic Cerebral infarction Hyperlipidemia Uses roller walker Arthritis Back pain GERD (gastroesophageal reflux disease) Numbness Seasonal allergies ILIAMNA (hard of hearing) GI bleed due to NSAIDs Osteoarthritis Elevated cholesterol Hyperglycemia HTN (hypertension) Vertigo Gastritis Scoliosis (and kyphoscoliosis), idiopathic Anemia Surgical History (Updated 10/29/24 @ 16:16 by Ashleigh Grullon MD) S/P lumbar fusion Hx of spinal surgery (07/18/23) Hx of tonsillectomy History of total left knee replacement History of esophagogastroduodenoscopy (EGD) H/O colonoscopy History of lumbar laminectomy History of total left hip arthroplasty History of appendectomy H/O cataract removal with insertion of prosthetic lens Family History Father No problems noted. Mother Breast cancer Social History Household Members: Family Household Members Other:: sister Housing: Condominium Are you a primary animal care technician to a significant other at home: No Do you presently have visiting nurse or other home services: No Patient Tobacco Use Status: Former Tobacco user Tobacco use type: Cigarette e-Cigarette/Vaping Use: Never Used Substance Use Type: Other Advance Directives Date on File: 10/16/22 service: No Current occupational status: retired Cognitive needs: No Hearing needs: Yes Vision needs: No Questionnaire Thrive Questionnaire Date Thrive assessed: 08/28/24 I am a: Patient What is your living situation today?: I have a steady place to live Within the past 12 months, did the food you bought not last and you didn't have the money to get more?: Never true Within the past 12 months, did you worry whether your food would run out before you got money to buy more?: Never true Do you have trouble paying for medicines?: No Do you have trouble getting transportation to medical appointments?: No Do you have trouble paying your heating and electricity bill?: No Do you have trouble taking care of your child, family member or friend?: No Do you have trouble with day-to-day activities such as bathing, preparing meals, shopping, managing finances, etc.?: No Are you currently unemployed and looking for a job?: No Are you interested in more education?: No Please select the resources that you would like help with: Care for elder or disabled Currently or been in a relationship where the following occur: I choose not to answer THRIVE Score: 0 NAILA-7 AMB Questionnaire NAILA-7 Date NAILA - 7 assessed: 08/28/24 Source: Developed by Drs. Mukesh Rice, Sravani Ramirez, Martin Padgett and colleagues, with an educational faisal from [employer]. Review of Systems Const All systems reviewed & are unremarkable except as noted in HPI and below Eyes Reports no additional complaints ENT Reports no additional complaints Card Reports no additional complaints Resp Reports no additional complaints GI Reports no additional complaints Reports no additional complaints Physical exam (Primary Care) Vital Signs: Last Vital Signs Temp 98.1 F 10/29/24 08:51 Pulse 81 10/29/24 08:51 Resp 18 10/29/24 08:51 BP 134/76 10/29/24 08:51 Pulse Ox 96 10/29/24 08:51 Oxygen Delivery Method Room Air 10/29/24 08:51 BMI result Body Mass Index 29.0 Tobacco/Smoking Status: Tobacco use Status Tobacco use date assessed 10/29/24 10/29/24 09:14 Patient Tobacco Use Status Former Tobacco user 10/29/24 08:52 Tobacco use type Cigarette 10/29/24 08:52 e-Cigarette/Vaping Use Never Used 10/29/24 08:52 Thrive Assessment: Date of Thrive Assessment Date Thrive assessed 08/28/24 10/29/24 08:52 Currently or been in a relationship where the following occur: I choose not to answer Const General: no acute distress HENMT Head: Yes normal to inspection Mouth: Normal oral and palatal mucosa present Resp Effort & Inspection: normal respiratory effort Auscultation: clear to auscultation bilaterally Cardio Rhythm: regular rhythm Heart sounds: S1 normal heart sound present and S2 normal heart sound present GI Inspection: Yes normal to inspection Palpation (GI): Soft to palpation Percussion: Yes normal to percussion Auscultation: normal bowel sounds Extrem Other: 1+ pitting edema lower extremities bilaterally Immunizations pneumoc 20-enoch conj-dip cr(PF) 0.5 mL IM syringe Performing Provider: Ashleigh Grullon MD Performing Location: [facility] Administered by: BUNNY Chang on 10/29/24 09:50 Dose Route Admin Location Dispensed Lot Number Expiration Date [facility] Prepared [employer] Production Team Member 0.5 mL IM Left Deltoid 0.5 mL [id number] 09/01/25 2705-4586-35 WYETH/PFIZER VIS Given Date VIS Provided VIS Publication Date 10/29/24 Single Vaccine 21 Eligibility Eligibility Date Funding Source Not VFC Eligible 10/29/24 Private Coding Level of Care Code Est Pt Level 4 (71615) Complex EM visit Add On G2211 Diagnoses HTN (hypertension) I10 Hyperlipidemia E78.5 S/P lumbar fusion Z98.1 Anemia D64.9 Assessment & Plan Assessment & Plan (1) HTN (hypertension): Code(s): I10 - Essential (primary) hypertension Category: Medical Plan: Start 25 mg of spironolactone follow extremity swelling and elevated blood pressure. Check basic metabolic panel in 2 weeks. Patient was advised to stop taking potassium supplement (2) Hyperlipidemia: Code(s): E78.5 - Hyperlipidemia, unspecified Category: Medical Plan: Start 40 mg of atorvastatin (3) S/P lumbar fusion: Comment: Th11-L5, 06/2024, by Dr. Shaw Code(s): Z98.1 - Arthrodesis status Category: Surgical Plan: Patient complaining of physical therapy but was advised to continue regular lower extremities strength exercises and increase walking (4) Anemia: Comment: Iron def, GI w/u inpt EGD and colonoscopy no acute bleed 05/26, on oral Iron s uppl Code(s): D64.9 - Anemia, unspecified Category: Medical Plan: Monitor CBC continue iron supplement and PPI Orders: Orders Basic Metabolic Panel 2 Weeks E78.5 - Hyperlipidemia, unspecified, I10 - Essential (primary) hypertension Complete Blood Count Auto Diff 6 Weeks D64.9 - Anemia, unspecified, E55.9 - Vitamin D deficiency, unspecified, E87.6 - Hypokalemia, F03.90 - Unspecified dementia, unspecified severity, without behavioral disturbance, psychotic disturbance, mood disturbance, and anxiety, I10 - Essential (primary) hypertension, R41.3 - Other amnesia, R73.9 - Hyperglycemia, unspecified IRON PROFILE 6 Weeks D64.9 - Anemia, unspecified, E55.9 - Vitamin D deficiency, unspecified, E87.6 - Hypokalemia, F03.90 - Unspecified dementia, unspecified severity, without behavioral disturbance, psychotic disturbance, mood disturbance, and anxiety, I10 - Essential (primary) hypertension, R41.3 - Other amnesia, R73.9 - Hyperglycemia, unspecified Lipid Panel 6 Weeks D64.9 - Anemia, unspecified, E55.9 - Vitamin D deficiency, unspecified, E87.6 - Hypokalemia, F03.90 - Unspecified dementia, unspecified severity, without behavioral disturbance, psychotic disturbance, mood disturbance, and anxiety, I10 - Essential (primary) hypertension, R41.3 - Other amnesia, R73.9 - Hyperglycemia, unspecified Vitamin B12 and Folate 6 Weeks D64.9 - Anemia, unspecified, E55.9 - Vitamin D deficiency, unspecified, E87.6 - Hypokalemia, F03.90 - Unspecified dementia, unspecified severity, without behavioral disturbance, psychotic disturbance, mood disturbance, and anxiety, I10 - Essential (primary) hypertension, R41.3 - Other amnesia, R73.9 - Hyperglycemia, unspecified Pneumococcal 20 Immunization Today Z23 - Encounter for immunization Comprehensive [place]. Panel Fast 6 Weeks D64.9 - Anemia, unspecified, E55.9 - Vitamin D deficiency, unspecified, E87.6 - Hypokalemia, F03.90 - Unspecified dementia, unspecified severity, without behavioral disturbance, psychotic disturbance, mood disturbance, and anxiety, I10 - Essential (primary) hypertension, R41.3 - Other amnesia, R73.9 - Hyperglycemia, unspecified Vitamin D 25-OH Total 6 Weeks D64.9 - Anemia, unspecified, E55.9 - Vitamin D deficiency, unspecified, E87.6 - Hypokalemia, F03.90 - Unspecified dementia, unspecified severity, without behavioral disturbance, psychotic disturbance, mood disturbance, and anxiety, I10 - Essential (primary) hypertension, R41.3 - Other amnesia, R73.9 - Hyperglycemia, unspecified TSH reflex Free T4 6 Weeks D64.9 - Anemia, unspecified, E55.9 - Vitamin D de ficiency, unspecified, E87.6 - Hypokalemia, F03.90 - Unspecified dementia, unspecified severity, without behavioral disturbance, psychotic disturbance, mood disturbance, and anxiety, I10 - Essential (primary) hypertension, R41.3 - Other amnesia, R73.9 - Hyperglycemia, unspecified Medications: New spironolactone 25 mg PO DAILY 90 tabs 0RF atorvastatin 40 mg PO DAILY 90 tabs 3RF atorvastatin 40 mg PO BEDTIME 90 tabs 3RF cholecalciferol (vitamin D3) 50 mcg PO DAILY 90 tabs 2RF
--- OUTSIDE RECORDS SUMMARY | 2024-10-29 08:59 | XMS_ITS | Encounter Summary ---
Author Organization [facility] [place] [address] Care Team Providers Care Brain Picker Name Role Phone Leonardo García MD Primary Care Provider [phone] Encounter Details Date Type Department Care Team (Late st Contact Info) Description 06/23/2024 Lab Requisition [facility] - Main Lab [address] [facility] [place] [address] Chris Barlow MD [address] [place] [address] Encounter for other general examination Social History [...] mg/dL LAB CHEMISTRY METHOD 06/23/2024 12:17 PM [facility] Blood Venous blood specimen / Unknown Venipuncture / Unknown 06/23/2024 5:46 AM EST 06/23/2024 10:54 AM EST us Chris Barlow MD LAB BLOOD ORDERABLES Final Resu lt [facility] [address] [place] [address], [place] [phone] * (ABNORMAL) Basic metabolic panel (06/23/2024 5:46 AM EST) [facility] Sodium 137 133 - 145 mmol/L [...] LAB CHEMISTRY METHOD 06/23/2024 12:24 PM EST [facility] Comment:Calculation based on the??Chronic Kidney Disease Epidemiology Collaboration (CKD-EPI) equation refit??without adjustment for race. BUN/Creatinine Ratio 27.7 LAB CHEMISTRY METHOD 06/23/2024 12:24 PM [facility] Calcium 8.4(L) 8.5 - 10.5 mg/dL LAB CHEMISTRY METHOD 06/23/2024 12:24 PM [facility] Blood Venous blood specimen / Unknown Venipuncture / Unknown 06/23/2024 5:46 AM EST 06/23/2024 10:54 AM EST us Chris Barlow MD LAB BLOOD ORDERABLES Final Resu lt [facility] [address] [place] [address], documented in this encounter Visit Diagnoses Diagnosis Encounter for other general examination documented in this encounter Additional Health Concerns Infection Onset Date Last Indicated Resolved Time Respiratory Rule-Out 07/26/2024 07/26/2024 025 3:02 AM EST COVID-19 Rule-Out 07/26/2024 07/26/2024 07/26/2024 3:02 AM EST documented as of this encounter Care Teams Brain Picker Relationship Specialty Start Date End Date Leonardo García MD [address] [place] [id number] PCP - General Internal Medicine 06/30/24 documented as of this encounter
== END 2024-10-29 09:52 | disposition home or self-care (01) ==
LOC: HO.HMCC 08:42
PROVIDERS: PCP Internal Medicine; Visit Provider Internal Medicine
DX: I10 Essential (primary) hypertension (principal); E78.5 Hyperlipidemia, unspecified; Z98.1 Arthrodesis status; D64.9 Anemia, unspecified; Z23 Encounter for immunization

== ENCOUNTER → 2024-10-29 08:41 | Outpatient (BNVA) | payer MEDICARE, SELFPAY | PROVIDERS: PCP Internal Medicine; Visit Provider Internal Medicine | DX: Z23 Encounter for immunization (principal); I63.9 Cerebral infarction, unspecified; I10 Essential (primary) hypertension; E78.5 Hyperlipidemia, unspecified; D64.9 Anemia, unspecified; Z98.1 Arthrodesis status | CPT/HCPCS: 90471; 90677; 99212 ==

== ENCOUNTER 2024-11-07 14:14 | Outpatient (REF) | payer MEDICARE, SELFPAY ==
[2024-11-07 16:44] LABS: Anion Gap 12 (12-20); Blood Urea Nitrogen 17 mg/dL (9-16); Calcium 9.2 mg/dL (8.4-10.2); Carbon Dioxide 28 mmol/L (22-29); Chloride 104 mmol/L (96-108); Estimated Glomerular Filt Rate > 60; Glucose Random 136 mg/dL (60-115); Potassium 3.9 mmol/L (3.3-5.1); Sodium 140 mmol/L (135-145)
== END 2024-11-07 14:15 | disposition home or self-care (01) ==
LOC: HO.HMGCLDS 14:14
PROVIDERS: PCP Internal Medicine; Visit Provider Internal Medicine
DX: I10 Essential (primary) hypertension (principal); E78.5 Hyperlipidemia, unspecified
CPT/HCPCS: 36415; 80048

== ENCOUNTER 2024-11-23 16:47 | Emergency (ER) | payer MEDICARE, SELFPAY ==
--- NOTE | ~2024-11-23 | XR_ITS ---
CLINICAL HISTORY: pain, injury 2 view left knee Comparison: CR/SR - XR KNEE LT 2V - 07/17/24 10:14 EST Findings: No fractures or dislocations. Left total knee arthroplasty. No joint effusion. IMPRESSION: 1. No acute findings. This document has been electronically signed by: Jerry Rodriguez MD on 11/23/2024 18:57:19
--- NOTE | ~2024-11-23 | XR_ITS ---
CLINICAL HISTORY: injury, checking hardware 3 views lumbar spine Comparison: DX - XR LUMBAR SPINE 4V MIN - 08/18/24 14:18 EDT Findings: Postsurgical changes related to T11-L5 posterior spinal fusion with intact hardware and alignment. Stable grade 1 anterolisthesis of L4 on L5, unchanged. No acute fractures or dislocation. No significant degenerative change. IMPRESSION: Postsurgical changes related to T11-L5 posterior spinal fusion with intact hardware and alignment. Stable grade 1 anterolisthesis of L4 on L5, unchanged. This document has been electronically signed by: Mandy Kim MD on 11/23/2024 19:45:13
--- NOTE | ~2024-11-23 | XR_ITS ---
CLINICAL HISTORY: injury, checking hardware 3 views thoracic spine Comparison: CR/SR - XR CHEST 2V - 08/28/24 11:35 EDT DX - XR LUMBAR SPINE 4V MIN - 08/18/24 14:18 EDT Findings: Postsurgical changes related to T11 through L5 posterior spinal fusion with intact hardware and alignment. The left transpedicular surgical screws traverses the T10-T11 disc space. Moderately exaggerated thoracic kyphosis on degenerative basis. No acute fractures or dislocation. No significant degenerative change. IMPRESSION: Posterior spinal fusion with intact hardware and alignment. The left transpedicular surgical screws traverses the T10-T11 disc space. Moderately exaggerated thoracic kyphosis on degenerative basis. No evidence of acute fracture or traumatic listhesis of the thoracic spine. This document has been electronically signed by: Mandy Kim MD on 11/23/2024 19:47:13
[2024-11-23 16:57] VITALS: BP 172/94; PULSE 99; RESP 18; TEMP 36.6; O2SAT 95
[2024-11-23 16:58] VITALS: BP 150/100; PULSE 106; O2SAT 98; BMI 29.1
--- OUTSIDE RECORDS SUMMARY | 2024-11-23 17:17 | XMS_ITS | Encounter Summary ---
Author Organization [facility] [place] [address] Care Team Providers Care Tool Keeper Name Role Phone Leonardo García MD Primary Care Provider [phone] Encounter Details Date Type Department Care Team (Late st Contact Info) Description 06/23/2024 Lab Requisition [facility] - Main Lab [address] [facility] [place] [address] Chris Barlow MD [address] [place] [address] Encounter for other general examination Social History [...] * Magnesium (06/23/2024 5:46 AM EST) Pathologist [facility] Magnesium 2.1 1.9 - 2.6 mg/dL LAB CHEMISTRY METHOD 06/23/2024 12:[address] [facility] Blood Venous blood specimen / Unknown Venipuncture / Unknown 06/23/2024 5:46 AM EST 06/23/2024 10:54 AM EST us Chris Barlow MD LAB BLOOD ORDERABLES Final Resu lt [facility] [address] [place] [address], [place] [phone] * (ABNORMAL) Basic metabolic panel (06/23/2024 5:46 AM EST) [facility] Sodium 137 133 - 145 mmol/L LAB CHEMISTRY METHOD 06/23/2024 12:[address] [facility] Potassium 3.7 3.5 - 5.5 mmol/L LAB CHEMISTRY METHOD 06/23/2024 12:[address] [facility] Chloride 100 96 - 110 mmol/L LAB CHEMISTRY METHOD 06/23/2024 12:[address] [facility] CO2 29 21 - 32 mmol/L LAB CHEMISTRY METHOD 06/23/2024 12:[address] [facility] Anion Gap 8 3 - 11 LAB CHEMISTRY METHOD 06/23/2024 12:[address] [facility] Glucose 106(H) 70 - 100 mg/dL LAB CHEMISTRY METHOD 06/23/2024 12:[address] [facility] BUN 23 5 - 25 mg/dL LAB CHEMISTRY METHOD 06/23/2024 12:[address] [facility] Creatinine 0.83 0.50 - 1.10 mg/dL LAB CHEMISTRY METHOD 06/23/2024 12:[address] [facility] eGFR 70 >=60 mL/min/1. 73m2 LAB CHEMISTRY METHOD 06/23/2024 12:24 PM EST [facility] Comment:Calculation based on the Chronic Kidney Disease Epidemiology Collaboration (CKD-EPI) equation refit without adjustment for race. BUN/Creatinine Ratio 27.7 LAB CHEMISTRY METHOD 06/23/2024 12:24 PM EST [facility] Calcium 8.4(L) 8.5 - 10.5 mg/dL LAB CHEMISTRY METHOD 06/23/2024 12:[address] [facility] Blood Venous blood specimen / Unknown Venipuncture / Unknown 06/23/2024 5:46 AM EST 06/23/2024 10:54 AM EST us Chris Barlow MD LAB BLOOD ORDERABLES Final Resu lt [facility] [address] [place] [address], documented in this encounter Visit Diagnoses Diagnosis Encounter for other general examination documented in this encounter Additional Health Concerns Infection Onset Date Last Indicated Resolved Time Respiratory Rule-Out 07/26/2024 07/26/2024 025 3:02 AM EST COVID-19 Rule-Out 07/26/2024 07/26/2024 07/26/2024 3:02 AM EST documented as of this encounter Care Teams Tool Keeper Relationship Specialty Start Date End Date Leonardo García MD [address] [place] [id number] PCP - General Internal Medicine 06/30/24 documented as of this encounter
--- NOTE | 2024-11-23 18:04 | ED_ITS ---
HPI - General Adult General Chief complaint: Fall Stated complaint: Fall, L knee/hip discomfort, no head strike Time Seen by Provider: 11/23/24 18:00 Source: patient, family (patient's daughter and son-in-law) and EMS Mode of arrival: EMS Limitations: no limitations History of Present Illness ED Provider: Faina Cheek PA-C HPI narrative: Patient is an 84 year old assigned female at with a history of HTN, OA, lumbar stenosis s/p surgery, dementia, and CVA presenting to the emergency department today with left knee and hip pain after a fall. Patient states that she spilled soda on her carpet and when she went to clean it up, she fell, landing on her left side. Patient denies any head strike or loss of consciousness. Patient denies any dizziness, lightheadedness, abdominal pain, nausea, vomiting, fever, chills, blurry vision, double vision, loss of vision, chest pain, difficulty breathing, shortness of breath, back pain, night sweats, pain with urination, increased urinary frequency, increased urinary urgency, blood in her urine or stool, syncope or a near syncopal episode, bowel incontinence, bladder incontinence, or any other complaints at this time. Relieving factors: none Exacerbating factors: none Associated symptoms: denies other symptoms Treatments prior to arrival: none Related Data Home Medications ?Medication ?Instructions ?Recorded ?Confirmed aspirin 81 mg tablet,delayed 81 mg PO DAILY 10/29/24 0 10/29/24 release loratadine 10 mg tablet (Claritin) 10 mg PO DAILY 10/0310/29/24 Previous Rx's ?Medication ?Instructions ?Recorded back brace #1 ea 05/14/24 acetaminophen 325 mg tablet 975 mg (3 x 325 mg) PO Q8H #20 tabs 06/20/24 omeprazole 40 mg capsule,delayed 40 mg PO DAILY #90 ca ps 10/01/24 release potassium chloride 20 mEq 20 meq PO DAILY #30 tabs 07/29 tablet,extended release atorvastatin 40 mg tablet 40 mg PO DAILY #90 tabs 10/03 01/26 cholecalciferol (vitamin D3) 50 50 mcg PO DAILY #90 ta bs 10/29/24 mcg (2,000 unit) tablet spironolactone 25 mg tablet 25 mg PO DAILY #90 tabs Allergies Allergy/AdvReac Type Severity Reaction Status Date / Time ampicillin (AMPICILLIN) Allergy Severe swelling Verified 11/23/24 17:02 in face/itchy throat tetracycline (TETRACYCLINE) Allergy Severe itchy Verified 11/23/24 17:02 throat/swelling in face Review of Systems Constitutional: Constitutional: Reports no additional constitutional com plaints, Denies chills, Denies fever(s) and Denies night sweats Eyes: Eyes: Reports no additional eye complaints, Denies blurry vision, Denies change in vision, Denies diplopia, Denies eye discharge, Denies loss of vision and Denies eye pain ENT: Denies dizziness Cardiovascular: Cardiovascular: Reports no additional cardiovascular complaints, Denies chest pain, Denies lightheadedness, Denies Loss of Consciousness and Denies dyspnea Respiratory: Respiratory: Reports no additional respiratory complaints and Denies dyspnea Gastrointestinal: Gastrointestinal: Reports no additional gastrointestinal complaints, Denies abdominal pain, Denies melena, Denies hematochezia, Denies change in bowel habits and Denies change in stool character Genitourinary: Genitourinary: Denies hematuria, Denies urinary frequency, Denies dysuria, Denies urinary incontinence, Denies urinary hesitancy and Denies urinary urgency Musculoskeletal: Musculoskeletal: Reports no additional musculoskeletal complaints, Denies numbness and Denies tingling Comments: left knee pain left hip pain Neurologic: Denies dizziness, Denies loss of vision, Denies numbness and Denies tingling Psychiatric: Psychiatric: Reports no additional psychiatric complaints Endocrine: Endocrine: Reports no additional endocrine complaints Hematologic/Lymphatic: Hematologic/Lymphatic: Reports no additional hematologic/lymphatic complaints Allergic/Immunologic: Allergic/Immunologic: Reports no additional allergic/immunologic complaints [facility] Past Medical History Attestation statement: The following information was validated with the patient. (patient's daughter and son-in-law validated all information) Source: old records reviewed, obtained from family (patient's daughter and son-in-law provided additional history and confirmed the history provided by the patient. ) and nursing notes reviewed Medical History Dementia Memory loss Lumbar stenosis Scoliosis (and kyphoscoliosis), idiopathic Cerebral infarction Hyperlipidemia Uses roller walker Arthritis Back pain GERD (gastroesophageal reflux disease) Numbness Seasonal allergies [place] (hard of hearing) GI bleed due to NSAIDs Osteoarthritis Elevated cholesterol Hyperglycemia HTN (hypertension) Vertigo Gastritis Scoliosis (and kyphoscoliosis), idiopathic Anemia Surgical History S/P lumbar fusion Hx of spinal surgery (07/18/23) Hx of tonsillectomy History of total left knee replacement History of esophagogastroduodenoscopy (EGD) H/O colonoscopy History of lumbar laminectomy History of total left hip arthroplasty History of appendectomy H/O cataract removal with insertion of prosthetic lens Family History Family History Father No problems noted. Mother Breast cancer Social History Social History Household Members: Family Household Members Other:: sister Housing: Condominium Are you a primary care management coordinator to a significant other at home: No Do you presently have visiting nurse or other home services: No Patient Tobacco Use Status: Former Tobacco user Tobacco use type: Cigarette e-Cigarette/Vaping Use: Never Used Substance Use Type: Other Advance Directives Date on File: 10/16/22 service: No Current occupational status: retired Cognitive needs: No Hearing needs: Yes Vision needs: No Physical Exam ED Vital Signs: Vital Signs - 24 hr 11/23/24 16:57 11/23/24 20:13 Temperature 97.9 F 97.6 F Pulse Rate 99 73 Respiratory Rate 18 16 Blood Pressure 172/94 H 136/81 Pulse Oximetry 95 97 Oxygen Delivery Method Room Air Room Air BMI result Body Mass Index 29.1 Const General: cooperative, no acute distress, alert and awake Nutritional Appearance: well nourished Orientation/consciousness: patient oriented x3 HENMT Head: Yes normal to inspection and Yes atraumatic Ears: hearing grossly normal bilaterally and external ears normal General nose exam: Normal external nose present, no nasal discharge noted and no epistaxis Face and sinus: Yes normal facial exam, No abrasion and No laceration Mouth: Normal oral and palatal mucosa present, no drooling and no muffled voice Eyes General: appearance normal, both eyes and all related structures Periorbital: periorbital findings normal Eyelids: Yes eyelids normal Conjunctivae: conjunctivae normal Pupils: Equal, round and reactive pupils present EOM: EOMs intact bilaterally Neck Neck: Yes normal visual inspection, Yes full ROM and Yes no lymphadenopathy Resp Effort & Inspection: normal respiratory effort and able to speak in complete sentences Neuro General: patient oriented x3, moves all extremities and CN's II-XI intact bilaterally Cranial nerves: Yes Equal, round and reactive pupils present Cognition (Neuro): normal cognition Extrem General: Yes normal to inspection, Yes full ROM and Yes capillary refill normal Psych Appearance: grossly normal Mental Status: mental status grossly normal Affect: normal affect Attitude: cooperative Thought process: Normal thought process present Thought content: Normal thought content present Insight: Good insight present (Psych) Medical Decision Making Medical Decision Making MDM Narrative: Patient is an 84 year old assigned female at with a history of HTN, OA, lumbar stenosis s/p surgery, dementia, and CVA presenting to the emergency department today with left knee and hip pain after a fall. Patient's physical exam was unremarkable. Patient's left knee, lumbar spine, and thoracic spine x- rays showed no acute process. I explained my physical exam findings as well as all test results to the patient, the patient's daughter, and the patient's son-in-law. I answered all questions asked by the patient, the patient's daughter, and the patient's son-in-law. I stressed the importance of the patient taking her medication as directed (either prescribed or as the over the counter packaging recommends). I stressed the importance of the patient following up with her primary care provider. I stressed the importance of the patient returning to the emergency department immediately if her symptoms were to worsen or if she were to develop any dizziness, shortness of breath, difficulty breathing, chest pain, blurry vision, loss of vision, nausea, vomiting, abdominal pain, fever, chills, back pain, or any other complaints. Patient, the patient's daughter, and the patient's son-in-law verbalized agreement and understanding with this treatment plan and discharge. Differential Diagnosis Differential Diagnoses: The differential diagnosis associated with the presentation includes Fall Left knee pain Left hip pain Admission/Observation Consideration of admission/observation: Escalation of care including admission/observation considered Patient would have been admitted to the hospital had her work up had any findings where hospital admission was appropriate and her clinical presentation warranted hospital admission. Independent Interpretation I performed an independent interpretation of an: Plain X-Ray Interpretation: My interpretation is in agreement with the radiologist's impression of these imaging studies. CLINICAL HISTORY: injury, checking hardware 3 views thoracic spine Comparison: CR/SR - XR CHEST 2V - 08/28/24 11:35 EDT DX - XR LUMBAR SPINE 4V MIN - 08/18/24 14:18 EDT Findings: Postsurgical changes related to T11 through L5 posterior spinal fusion with intact hardware and alignment. The left transpedicular surgical screws traverses the T10-T11 disc space. Moderately exaggerated thoracic kyphosis on degenerative basis. No acute fractures or dislocation. No significant degenerative change. IMPRESSION: Posterior spinal fusion with intact hardware and alignment. The left transpedicular surgical screws traverses the T10-T11 disc space. Moderately exaggerated thoracic kyphosis on degenerative basis. No evidence of acute fracture or traumatic listhesis of the thoracic spine. This document has been electronically signed by: Mandy Kim MD on 11/23/2024 19:47:13 Dictated By: Mandy Kim MD Signed By: Electronically signed by Mandy Kim MD 11/23/241947 CLINICAL HISTORY: injury, checking hardware 3 views lumbar spine Comparison: DX - XR LUMBAR SPINE 4V MIN - 08/18/24 14:18 EDT Findings: Postsurgical changes related to T11-L5 posterior spinal fusion with intact hardware and alignment. Stable grade 1 anterolisthesis of L4 on L5, unchanged. No acute fractures or dislocation. No significant degenerative change. IMPRESSION: Postsurgical changes related to T11-L5 posterior spinal fusion with intact hardware and alignment. Stable grade 1 anterolisthesis of L4 on L5, unchanged. This document has been electronically signed by: Mandy Kim MD on 11/23/2024 19:45:13 Dictated By: Mandy Kim MD Signed By: Electronically signed by Mandy Kim MD 11/23/241945 CLINICAL HISTORY: pain, injury 2 view left knee Comparison: CR/SR - XR KNEE LT 2V - 07/17/24 10:14 EST Findings: No fractures or dislocations. Left total knee arthroplasty. No joint effusion. IMPRESSION: 1. No acute findings. This document has been electronically signed by: Jerry Rodriguez MD on 11/23/2024 18:57:19 Dictated By: Jerry Rodriguez MD Signed By: Electronically signed by Jerry Rodriguez MD 11/23/24 2168 Radiology Impression Discussion of test interpretation with radiology: I have reviewed the radiologist's reading. Independent Historian Clinical information obtained from an independent historian. History obtained from or confirmed by: EMS (EMS provided additional history and confirmed the history provided by the patient. ) and Other (Patient's daughter and son-in-law provided additional history and confirmed the history provided by the patient. ) Discharge Plan Discharge Clinical Impression: Fall Qualifiers: Encounter type: initial encounter Qualified Code(s): W19.XXXA - Unspecified fall, initial encounter Patient Disposition: er SNF Instructions: Fall Prevention for Older Adults (ED) Additional Instructions: Your x-rays today confirmed all of your hardware (in your back and your left knee) are intact and normal. Follow up with your primary care provider. Return to the emergency department immediately if your symptoms worsen or if you develop any numbness, tingling, dizziness, shortness of breath, difficulty breathing, chest pain, blurry vision, loss of vision, nausea, vomiting, abdominal pain, fever, chills, back pain, or any other complaints. Please see the information below about our Patient Portal. If you are not yet enrolled in the [facility] Patient Portal, you will receive an enrollment email invitation following your visit to any [facility] [place] [facility] setting. You may also self-enroll in the Patient Portal by visiting our website: [email or web address] The following information is required to access the Patient Portal: - Your [facility] [place] [facility] Medical Record Number - Your personal home email address (must match what is in your electronic medical record, Registration staff can assist with this) - Name - Date of Capabilities of the Patient Portal: - Message some providers - View upcoming appointments - Access your health summary, medical history, and visit history - View current conditions and allergies - View procedure and lab results - View your medications, including guidelines, side effects, and precautions - Complete pre-appointment questionnaires requested by your provider - Ready summary reports of your office visits and procedures To access the Patient Portal Mobile [employer], follow these directions: - Search [employer] in the [employer] Store or [employer] Store - Download the [employer] - Search for [facility] - Enter your login/password Prescriptions: No Action omeprazole 40 mg capsule,delayed release(DR/EC) 40 mg PO DAILY Qty: 90 1RF potassium chloride 20 mEq tablet extended release 20 meq PO DAILY Qty: 30 0RF acetaminophen 325 mg Tablet 975 mg PO Q8H Qty: 20 0RF (DME) back brace Misc See Rx Instructions .Route Qty: 1 0RF Rx Instructions: LSO brace with thoracic extension CPT 10: M41.80 CHRISTOPHER: 99 aspirin 81 mg tablet,delayed release (DR/EC) 81 mg PO DAILY loratadine [Claritin] 10 mg tablet 10 mg PO DAILY cholecalciferol (vitamin D3) 50 mcg (2,000 unit) tablet 50 mcg PO DAILY Qty: 90 2RF spironolactone 25 mg tablet 25 mg PO DAILY Qty: 90 0RF atorvastatin 40 mg tablet 40 mg PO DAILY Qty: 90 3RF Referrals: Ashleigh Grullon MD [Primary Care Provider, Internal Medicine] Interventions: ED Discharge Assessment Last Done: 11/23/24 20:13 Discharge Date/Time: 11/23/24 20:14 Print Language: Montserratian
--- NOTE | 2024-11-23 19:04 | PC.NURSE ---
assumed care of pt. Pt assisted onto bedpan and given call noel. Pt respirations even and unlabored. Daughter at bedside. No complaints at this time.
[2024-11-23 20:13] VITALS: BP 136/81; PULSE 73; RESP 16; TEMP 36.4; O2SAT 97
== END 2024-11-23 20:14 | disposition skilled nursing facility (03) ==
PROVIDERS: Emergency Provider Emergency Medicine Emergency Medical Services; PCP Internal Medicine
DX: S89.92XA Unspecified injury of left lower leg, initial encounter (principal); M54.50 Low back pain, unspecified; M25.552 Pain in left hip; M54.6 Pain in thoracic spine; M25.562 Pain in left knee; F03.90 Unspecified dementia, unspecified severity, without behavioral disturbance, psychotic disturbance, mood disturbance, and anxiety; X58.XXXA Exposure to other specified factors, initial encounter; Y93.9 Activity, unspecified; Y92.9 Unspecified place or not applicable; Y99.8 Other external cause status; Z87.891 Personal history of nicotine dependence; Z79.899 Other long term (current) drug therapy
CPT/HCPCS: 72070; 72100; 73560; 99283; 99284

== ENCOUNTER → 2024-11-23 18:04 | Outpatient (BNV) | payer MEDICARE, SELFPAY | PROVIDERS: PCP Internal Medicine; Visit Provider Radiology Diagnostic Radiology | DX: M43.16 Spondylolisthesis, lumbar region (principal); M40.294 Other kyphosis, thoracic region; M25.562 Pain in left knee | CPT/HCPCS: 72070; 72100 ==

== ENCOUNTER → 2024-11-28 23:59 | Outpatient (BNV) | payer MEDICARE, SELFPAY | PROVIDERS: PCP Internal Medicine; Visit Provider Internal Medicine | DX: I10 Essential (primary) hypertension (principal); F03.90 Unspecified dementia, unspecified severity, without behavioral disturbance, psychotic disturbance, mood disturbance, and anxiety; M48.061 Spinal stenosis, lumbar region without neurogenic claudication | CPT/HCPCS: G0180 ==

== ENCOUNTER 2024-12-04 09:28 | Outpatient (AMB) | payer MEDICARE, SELFPAY ==
--- NOTE | 2024-12-04 09:43 | MHC.PC.OV ---
Vital Signs 12/04/24 09:50 Height 5 ft 5 in Weight 166 lb BMI 27.6 BP 126/68 Blood Pressure Location Lt brachial Position Sitting Respiration 18 Pulse 75 Pulse Source Pulse Oximeter Temp 97.8 F Temp Source Oral Pulse Oximetry (%) 97 Oxygen Delivery Method Room Air Intake Visit Reasons: 6 week follow up Intake Note: Pt is gere today for 6 weeks follow up visit. Allergies ampicillin (AMPICILLIN) Allergy (Severe, Verified 12/04/24 09:53) swelling in face/itchy throat tetracycline (TETRACYCLINE) Allergy (Severe, Verified 12/04/24 09:53) itchy throat/swelling in face Medication List - Last Reconciled 12/04/24 by Ashleigh Grullon MD acetaminophen 650 mg PO Q8H PRN aspirin 81 mg PO DAILY atorvastatin 40 mg PO DAILY back brace LSO brace with thoracic extension CPT 10: M41.80 CHRISTOPHER: 99 cholecalciferol (vitamin D3) 50 mcg PO DAILY loratadine (Claritin) 10 mg PO DAILY omeprazole 40 mg PO DAILY spironolactone 25 mg PO DAILY Tobacco use date assessed: 12/04/24 Fall risk assessment: 2 + Falls in past year Last assessed Fall Risk: 12/04/24 Dental Screening Dental Screen Date: 08/28/24 HPI 6 week follow up HPI Details Pt presents for the follow-up of hyperlipidemia controlled on atorvastatin patient was in the ER 2 weeks ago for a fall after patient been down to wipe the floor. She denies any head injury. Patient lives in assisted living and has been exercising walking with a walker every day for 15 minutes. Short term memory has been declining. PFSH Medical History Dementia Memory loss Lumbar stenosis Scoliosis (and kyphoscoliosis), idiopathic Cerebral infarction Hyperlipidemia Uses roller walker Arthritis Back pain GERD (gastroesophageal reflux disease) Numbness Seasonal allergies [place] (hard of hearing) GI bleed due to NSAIDs Osteoarthritis Elevated cholesterol Hyperglycemia HTN (hypertension) Vertigo Gastritis Scoliosis (and kyphoscoliosis), idiopathic Anemia Surgical History S/P lumbar fusion Hx of spinal surgery (07/18/23) Hx of tonsillectomy History of total left knee replacement History of esophagogastroduodenoscopy (EGD) H/O colonoscopy History of lumbar laminectomy History of total left hip arthroplasty History of appendectomy H/O cataract removal with insertion of prosthetic lens Family History Father No problems noted. Mother Breast cancer Social History Household Members: Family Household Members Other:: sister Housing: Condominium Are you a primary healthcare educator to a significant other at home: No Do you presently have visiting nurse or other home services: No Patient Tobacco Use Status: Former Tobacco user Tobacco use type: Cigarette e-Cigarette/Vaping Use: Never Used Substance Use Type: Other Advance Directives Date on File: 10/16/22 service: No Current occupational status: retired Cognitive needs: No Hearing needs: Yes Vision needs: No Questionnaire Thrive Questionnaire Date Thrive assessed: 08/28/24 I am a: Patient What is your living situation today?: I have a steady place to live Within the past 12 months, did the food you bought not last and you didn't have the money to get more?: Never true Within the past 12 months, did you worry whether your food would run out before you got money to buy more?: Never true Do you have trouble paying for medicines?: No Do you have trouble getting transportation to medical appointments?: No Do you have trouble paying your heating and electricity bill?: No Do you have trouble taking care of your child, family member or friend?: No Do you have trouble with day-to-day activities such as bathing, preparing meals, shopping, managing finances, etc.?: No Are you currently unemployed and looking for a job?: No Are you interested in more education?: No Please select the resources that you would like help with: Care for elder or disabled Currently or been in a relationship where the following occur: I choose not to answer THRIVE Score: 0 NAILA-7 AMB Questionnaire NAILA-7 Date NAILA - 7 assessed: 08/28/24 Source: Developed by Drs. Mukesh Rice, Sravani Ramirez, Martin Padgett and colleagues, with an educational faisal from [employer] Review of Systems Const All systems reviewed & are unremarkable except as noted in HPI and below Eyes Reports no additional complaints ENT Reports no additional complaints Card Reports no additional complaints Resp Reports no additional complaints GI Reports no additional complaints Reports no additional complaints Physical exam (Primary Care) Vital Signs: Last Vital Signs Temp 97.8 F 12/04/24 09:50 Pulse 75 12/04/24 09:50 Resp 18 12/04/24 09:50 BP 126/68 12/04/24 09:50 Pulse Ox 97 12/04/24 09:50 Oxygen Delivery Method Room Air 12/04/24 09:50 BMI result Body Mass Index 27.6 Tobacco/Smoking Status: Tobacco use Status Tobacco use date assessed 12/04/24 12/04/24 09:58 Patient Tobacco Use Status Former Tobacco user 12/04/24 09:43 Tobacco use type Cigarette 12/04/24 09:43 e-Cigarette/Vaping Use Never Used 12/04/24 09:43 Thrive Assessment: Date of Thrive Assessment Date Thrive assessed 08/28/24 12/04/24 09:43 Currently or been in a relationship where the following occur: I choose not to answer Const General: no acute distress HENMT Head: Yes normal to inspection Throat: Yes posterior oropharynx normal Neck Neck: Yes supple Resp Effort & Inspection: normal respiratory effort Auscultation: clear to auscultation bilaterally Cardio Rhythm: regular rhythm Heart sounds: S1 normal heart sound present and S2 normal heart sound present Coding Level of Care Code Est Pt Level 4 (60422) Complex EM visit Add On G2211 Diagnoses HTN (hypertension) I10 Vitamin D deficiency E55.9 Anemia D64.9 Dementia F03.90 Assessment & Plan Assessment & Plan (1) HTN (hypertension): Code(s): I10 - Essential (primary) hypertension Category: Medical Plan: Continue spironolactone (2) Vitamin D deficiency: Code(s): E55.9 - Vitamin D deficiency, unspecified Category: Medical Plan: Continue vitamin-D supplement check the level (3) Anemia: Comment: Iron def, GI w/u inpt EGD and colonoscopy no acute bleed 05/26, on oral Iron suppl Code(s): D64.9 - Anemia, unspecified Category: Medical Plan: Continue supplemental iron, monitor CBC and iron count (4) Dementia: Comment: Brain MRI consistent with small-vessel ischemic changes and atrophy 06/2024 Code(s): F03.90 - Unspecified dementia, unspecified severity, without behavioral disturbance, psychotic disturbance, mood disturbance, and anxiety Category: Medical Plan: Follow-up with Neurology Orders: Orders Comprehensive [place]. Panel Fast 2 Months Ashleigh Grullon MD D64.9 - Anemia, unspecified, E55.9 - Vitamin D deficiency, unspecified, I10 - Essential (primary) hypertension, R73.9 - Hyperglycemia, unspecified Complete Blood Count Auto Diff 2 Months Ashleigh Grullon MD D64.9 - Anemia, unspecified, E55.9 - Vitamin D deficiency, unspecified, I10 - Essential (primary) hypertension, R73.9 - Hyperglycemia, unspecified IRON PROFILE 2 Months Ashleigh Grullon MD D64.9 - Anemia, unspecified, E55.9 - Vitamin D deficiency, unspecified, I10 - Essential (primary) hypertension, R73.9 - Hyperglycemia, unspecified Vitamin D 25-OH Total 2 Months Ashleigh Grullon MD D64.9 - Anemia, unspecified, E55.9 - Vitamin D deficiency, unspecified, I10 - Essential (primary) hypertension, R73.9 - Hyperglycemia, unspecified Hemoglobin A1c 2 Months Ashleigh Grullon MD D64.9 - Anemia, unspecified, E55.9 - Vitamin D deficiency, unspecified, I10 - Essential (primary) hypertension, R73.9 - Hyperglycemia, unspecified Vitamin B12 and Folate 2 Months Ashleigh Grullon MD D64.9 - Anemia, unspecified, E55.9 - Vitamin D deficiency, unspecified, I10 - Essential (primary) hypertension, R73.9 - Hyperglycemia, unspecified Medications: Changed From acetaminophen 975 mg (3 x 325 mg) PO Q8H 20 tabs 0RF To acetaminophen 650 mg PO Q8H PRN DICKSON Sutton
--- OUTSIDE RECORDS SUMMARY | 2024-12-04 09:47 | XMS_ITS | Encounter Summary ---
Author Organization [facility] [place] [address] Care Team Providers Care Processing Analyst Name Role Phone Leonardo García MD Primary Care Provider [phone] Encounter Details Date Type Department Care Team (Late st Contact Info) Description 06/23/2024 Lab Requisition [facility] - Main Lab [address] [facility] [place] [address] Chris Bralow MD [address] [place] [address] Encounter for other general examination Social History [...] * Magnesium (06/23/2024 5:46 AM EST) Pathologist [facility] [place] Magnesium 2.1 1.9 - 2.6 mg/dL LAB CHEMISTRY METHOD 06/23/2024 12:17 PM [facility] Blood Venous blood specimen / Unknown Venipuncture / Unknown 06/23/2024 5:46 AM EST 06/23/2024 10:54 AM EST us Chris Barlow MD LAB BLOOD ORDERABLES Final Resu lt [facility] [address] [place] [address], [place] [phone] * (ABNORMAL) Basic metabolic panel (06/23/2024 5:46 AM EST) [facility] Sodium 137 133 - 145 mmol/L LAB CHEMISTRY METHOD 06/23/2024 12:24 PM [facility] Potassium 3.7 3.5 - 5.5 mmol/L LAB CHEMISTRY METHOD 06/23/2024 12:24 PM [facility] Chloride 100 96 - 110 mmol/L LAB CHEMISTRY METHOD 06/23/2024 12:24 PM [facility] CO2 29 21 - 32 mmol/L LAB CHEMISTRY METHOD 06/23/2024 12:24 PM [facility] Anion Gap 8 3 - 11 LAB CHEMISTRY METHOD 06/23/2024 12:24 PM [facility] Glucose 106(H) 70 - 100 mg/dL LAB CHEMISTRY METHOD 06/23/2024 12:24 PM [facility] BUN 23 5 - 25 mg/dL LAB CHEMISTRY METHOD 06/23/2024 12:24 PM [facility] Creatinine 0.83 0.50 - 1.10 mg/dL LAB CHEMISTRY METHOD 06/23/2024 12:24 PM [facility] eGFR 70 >=60 mL/min/1. 73m2 LAB CHEMISTRY METHOD 06/23/2024 12:24 PM EST [facility] Comment:Calculation based on the Chronic Kidney Disease Epidemiology Collaboration (CKD-EPI) equation refit without adjustment for race. BUN/Creatinine Ratio 27.7 LAB CHEMISTRY METHOD 06/23/2024 12:24 PM EST [facility] Calcium 8.4(L) 8.5 - 10.5 mg/dL LAB CHEMISTRY METHOD 06/23/2024 12:24 PM [facility] Blood Venous blood specimen / Unknown Venipuncture / Unknown 06/23/2024 5:46 AM EST 06/23/2024 10:54 AM EST us Chris Barlow MD LAB BLOOD ORDERABLES Final Resu lt [facility] [address] [place] [address], documented in this encounter Visit Diagnoses Diagnosis Encounter for other general examination documented in this encounter Additional Health Concerns Infection Onset Date Last Indicated Resolved Time Respiratory Rule-Out 07/26/2024 07/26/2024 025 3:02 AM EST COVID-19 Rule-Out 07/26/2024 07/26/2024 07/26/2024 3:02 AM EST documented as of this encounter Care Teams Processing Analyst Relationship Specialty Start Date End Date Leonardo García MD [address] [place] [id number] PCP - General Internal Medicine 06/30/24 documented as of this encounter
--- OUTSIDE RECORDS SUMMARY | 2024-12-04 09:47 | XMS_ITS | Patient Health Record ---
Author Organization [facility] Address [address] [place] [address] Care Team Providers Care Claim Service Representative Name Role Phone Ashleigh Grullon MD Primary Care Provider Mukesh Taveras [phone] Allergies Allergen (clinical drug ingredient) Drug/Non Drug [...] Status Risk Notes Problem Acute hemorrhagic gastritis (6056249) Acute gastritis with bleeding (K29.01) Active confirmed Problem Diverticular disease of colon (651057763) Diverticulosis of large intestine without perforation or abscess without bleeding (K57.30) Active confirmed Problem Iron deficiency anemia (49031236) Iron deficiency anemia (D50.9) Active confirmed Problem Hiatal hernia (89191799) Hiatal hernia (K44.9) Active confirmed Problem Chronic diarrhea (789140761) Chronic diarrhea (K52.9) Active confirmed Problem Chronic antral gastritis with hemorrhage (disorder) (024237883) Chronic gastritis with bleeding, unspecified gastritis type (K29.51) Active confirmed Problem Gastric ulcer (294654163) Gastric ulcer (K25.9) Active confirmed Problem Erosive gastritis (225566028433325 0) Gastritis, erosive (K29.60) Active confirmed Plan Of Treatment Future Test Test Name Order Date UPPER GI ENDOSCOPY 02/26/2014 COLONOSCOPY 02/26/2014 Insurance Providers Payer Name Payer Address Payer Phone Subscriber Number Group Number Insured Name Patient Relationship to Insured Coverage Start Date Coverage End Date MEDICARE OF [place] [address] [place] [id number] SRINIVASAN ALVARADO Self - patient is the insured [facility] SUPPLE[facility]AL [facility]AN [address] [place] [address] [id number] SRINIVASAN ALVARADO Self - patient is the insured Medical (General) History Medical History History ICD Code Denies [place],DM,CVA,Lung disease,renal dise ase Colonoscopy in 10/2001 with [...]
--- OUTSIDE RECORDS SUMMARY | 2024-12-04 09:47 | XMS_ITS | Encounter Summary ---
Author Organization [facility] Address [address] [place] [address] Care Team Providers Care Back Gray Cloth Washer Name Role Phone Unavailable Primary Care Provider Unavailabl e Encounter Details Date Type Department Care Team (Late st Contact Info) Description 03/17/2020 Lab Requisition [facility] [address] [place] [address] Boo Milian PA-C [address] [place] [id number] Encounter for laboratory testing for COVID-19 virus Social History Tobacco Use Types Packs/Day Years Used Date Smoking Tobacco: Never Assessed Comments Unknown Sex and Gender Information Value Date Recorded Sex Assigned at Not on file Legal Sex Female 11:34 AM EDT Gender Identity Not on file Sexual Orientation [...] DETECTED Not Detected 03/18/2020 5:59 PM EDT HARVINDER MARTINEZ Comment: ADDITIONAL INFORMATION The [employer] COVID-19 RT-PCR Assay is Real-Time Reverse Customer Advocacy Manager Polymerase Chain Reaction (rn care transition-PCR) for the in vitro qualitative detection of three SARS-Cov-2 target sequences unique to the coronavirus disease 2019 (COVID-19). This is an Emergency Use Authorization (EUA) in vitro diagnostic (IVD) test that has been modified to include the ROKT automated liquid handler. Its analytical performance characteristics have been determined by the flower planter and verified by [facility] in a manner consistent with CLIA [...] at the following links: For Healthcare Providers: https://www.fda.gov/media/224227/download For Patients: https://www.TMS.gov/media/305745/download TEST LIMITATIONS Positive results are indicative of [...] system. For further details refer to the [employer] TaqPath COVID-19 Combo Kit EUA submission (https://www.TMS.gov/media/841651/download). ----- Test performed by [facility], [address] [place] [id number] CLIA# [id number] Antoine Shah M.D., Ph.D., [facility], Clinical Customer Training Specialist Microbiology Nasopharyngeal swab / Unknown 03/17/2020 2:45 PM EDT 03/17/2020 2:45 PM EDT Narrative [facility] - 03/18/2020 5:59 PM EDT Performed at [facility], [address] [place] [address], [facility] 0695, CLIA [id number] Boo Milian PA-C MICROBIOLOGY - GENERAL OR DERABLES Final Result [facility] [address] [place] [address] documented in this encounter Visit Diagnoses Diagnosis Encounter for laboratory testing for COVID-19 virus documented in this encounter
--- OUTSIDE RECORDS SUMMARY | 2024-12-04 09:47 | XMS_ITS | Data Portability ---
Author Organization [facility], Telehealth Patient Home Address [address] [place] [address] Assessment Encounter Date Assessment Date Assessment LastModified [...] None recorded. Lab lipid panel, blood 2020 [facility], [address] [place] [address], [place], [address], 13:17:16 CMP, serum or plasma 2020 [facility], [address] [place] [address], [address], 13:17:16 CBC w/ auto diff 122020 [facility], [address] [place] [address], [place], [address], 1 13:17:16 CMP, serum or plasma 2019 [facility], [address] [place] [address], [place], [address], 0 15:24:12 CBC w/ auto diff 2019 [facility], [address] [place] [address], [address], 0 15:24:12 CMP, serum or plasma 2019 [facility] Not available 0 16:01:10 Referral None recorded. Procedures None recorded. Surgeries None recorded. Imaging None recorded. Medication Orders celecoxib 200 mg capsule 2021 022 [facility] #[id number], [address], [place], [id number], 2 11:37:31 metronidaz ole 0.75 % topical cream 2021 [facility] #59834, [address], [place], [id number], 2 11:29:27 hydrochlor othiazide 25 mg tablet 2021 022 [facility] #[id number], [address], [place], [id number], 2 11:31:03 hydrochlor othiazide 25 mg tablet 2019 [facility] #[id number], [address], [place], [id number], 0 10:39:17 Patient TargetsNo targets recorded. Patient Instructions Encounter Date Encounter Id Patient Instructions Last Modified By Organization Details Last Modified Time 03/12/2020 [id number] rhythm strip, EKG* VON Not available 03/12/2020 17:29:18 Reason for Referral None Reported. Results Created Date Observation Date Name Description Value Unit Range Abnormal Flag Note LastModifiedBy Organization Detail LastModifiedTime 03/12/20 20 03/12/2020 rhyth m strip , EKG* No observ ation record ed. [facility] [address] [facility], [place], [address], 03/16/2020 09:55:12 09/02/19 21 08/31/2020 MAMMO , scree andres, digit al, bilat eral No observ ation record ed. [address] [place], [address], 09/01/2020 14:06:45 01/04/20 21 01/03/2021 XR, knee No observ ation record ed. [facility] [address] [place], [address], 01/03/2021 16:03:47 09/06/19 22 09/02/2021 MAMMO , scree andres, digit al, bilat eral No observ ation record ed. [address] [place], [address], 09/05/2021 12:30:19 Result Notes None recorded. Problems Name Problem SNOMED Code Status Onset Date Resolution Date Notes Provider Name and Address Organization Details Recorded Time Essential hypertensi on 93992017 Active 2017 Not Available [facility] 0 11:57:35 Hyperchole sterolemia 37209781 Active 2017 Not Available [facility] 0 11:57:35 Gastric reflux 609596390 Active 2017 Not Available [facility] 0 11:57:35 Degenerati on of interverte bral disc 53273111 Active 2017 Not Available [facility] 0 11:57:35 Jeffrey 131450661 Active 2018 Not Available [facility] 0 11:57:35 Christinematthewwilliam 078425893 Active 2021 [facility] [address] [place] [address], [address], [facility] 2 11:27:44 Problem Notes None recorded. Procedures Surgical History Date Name Laterality Status Provider Name and Address Organization Details Recorded Time 018 Most Recent Mammogram completed Hamida Pinedo [facility] 05/06/2019 09:57:25 018 laminectomy completed Brigette Cates NP, S [address] [place] [address], [address], [facility] 05/01/2018 14:57:46 014 Colonoscopy completed [facility] 04/30/2018 14:53:24 [facility] 14:51:58 complete repair of rotator cuff [facility] 14:52:29 Appendectomy completed Brigette grullon NP, S [address] [place] [address], [address], [facility] 04/30/2018 16:37:33 tonsillectomy completed Brigette menendez NP, [address] [place] [address], [address], [facility] 04/30/2018 16:38:54 Imaging Results None recorded. Procedure Notes None recorded. Medical Equipment None Reported. Allergies Allergen ID Allergen Name Allergen Category Reaction Reaction Severity Criticality Documentation Date Start Date Code Code System Note Provider Name and Address Organization Details Recorded Time 2553 ampicilli n medicatio n Not available Not available Not available 04/30/2018 733 RxNorm Claire valencia [facility] 8 14:43:03 2554 tetracycl ine medicatio n Not available Not available Not available 04/30/2018 96618 RxNorm Claire valencia [facility] 8 14:43:18 2555 Chloromyc etin medicatio n Not available Not available Not available 04/30/2018 61281 8 [facility] 8 14:51:28 3665 adhesive tape environme nt,medica tion rash Not available Not available 06/10/2019 22142 UNK [facility] 0 10:05:05 Medications Name [...] completed Not Available Not Available Not Available Keldron 3 02/16 completed Not Available Not Available Not Available Advil Cold and Sinus seasonal allergies , PRN active Not Available Not Available No t Available Cromolyn Sodium Nasal prn active Not Available Not Available Not Available Stimulant Laxative Plus 8.6 mg-50 mg tablet 05/13 completed Not Available Not Available Not Available Vitals Date Recorded Body height Oxygen saturation Oxygen saturation in Arterial blood by Pulse oximetry Heart rate Systolic And Diastolic Provider Name and Address Organization Details Last Updated DateTime 2 160.02 cm 99 % 99 % 74 /min 158/90 mm[Hg] Lianna Combs [facility] 2 11:16:48 Date Recorded Body height Body mass index (BMI) Body weight Heart rate Oxygen saturation Oxygen saturation in Arterial blood by Pulse oximetry Systolic And Diastolic Provider Name and Address Organization Details Last Updated DateTime 0 160.02 cm 32.8 kg/m2 56736.6 7 g 78 /min 98 % 98 % 148/92 mm[Hg] Hamida Pinedo [facility] 0 10:29:24 Date Recorded Body height Body mass index (BMI) Body weight Heart rate Oxygen saturation Oxygen saturation in Arterial blood by Pulse oximetry Systolic And Diastolic Provider Name and Address Organization Details Last Updated DateTime 0 160.02 cm 32.9 kg/m2 83938.8 2 g 78 /min 97 % 97 % 130/82 mm[Hg] Hamida Pinedo [facility] 0 14:26:47 Date Recorded Body height Body mass index (BMI) Body weight Oxygen saturation Oxygen saturation in Arterial blood by Pulse oximetry Heart rate Systolic And Diastolic Provider Name and Address Organization Details Last Updated DateTime 1 160.02 cm 33.4 kg/m2 96324.2 4 g 97 % 97 % 83 /min 158/90 mm[Hg] Lianna Combs [facility] 1 11:28:23 Social History Question Answer Notes LastModified by [...] virus, quadrivalent, preservative 8 completed Hamida valencia [facility] 03/12/2020 14:22:57 Influenza, split virus, quadrivalent, preservative 1 completed Lianna valencia [facility] 05/10/2021 08:45:09 COVID-19, mRNA, LNP-S, PF, 30 mcg/0.3 mL dose 1 completed Lianna valencia [facility] 05/10/2021 08:45:31 COVID-19, mRNA, LNP-S, PF, 30 mcg/0.3 mL dose 1 completed Lianna valencia [facility] 05/10/2021 08:45:46 Td(adult) unspecified formulation 9 completed Lianna valencia [facility] 05/10/2021 08:46:19 Influenza, split virus, quadrivalent, preservative 9 completed Hamida valencia [facility] 03/12/2020 14:22:57 Influenza, split virus, quadrivalent, preservative 0 completed Hamida valencia [facility] 03/12/2020 14:22:57 Past Encounters Encounter ID Performer Location Encounter Start Date Encounter Closed Date Diagnosis/Indication Diagnosis SNOMED-CT Code Diagnosis ICD10 Code Diagnosis Note [id number] [facility]ie [facility] [address] [facility],[place] [address] 05/01/2018 13:37:32 05/01/2018 15:16:02 Essential hypertension 21815385 I10 Degenerati on of intervertebral disc 24351209 M51.9 S/P laminectom y Hypercholesterolemia 136 45173 E78.00 Decreased hearing 479437 001 H91.93 [id number] Fernie Coeindira [facility] [address] [facility], [place] [address] 11/01/2018 11:36:08 11/01/2018 12:10:37 Essential hypertension 80921466 I10 stable Degenerati on of intervertebral disc 03202467 M51.9 S/P laminectom y Hypercholesterolemia 136 09788 E78.00 taking lovastatin every other day - would really like to get off the med discussed diet for weight loss Insomnia 468293982 G47.0 0 takes a half at bedtime to help her sleep lots of stress Body mass index 30+ - obesity 683887893 Z68.33 discussed diet strategies cutting out sugar [...] to have water and tea while fasting [id number] Fernie Fernandes [facility] [address] [facility], [place] [address] 06/10/2019 09:46:55 06/10/2019 10:42:39 Essential hypertension 60449205 I10 mildly elevated d/c hctz start lisinopril 10 mg Degenerati on of intervertebral disc 87212542 M51.9 S/P laminectom y Hypercholesterolemia 136 13490 E78.00 taking lovastatin every other day - would really like to get off the med discussed diet for weight loss Insomnia 814920103 G47.0 0 takes a half at bedtime to help her sleep as needed lots of stress Body mass index 30+ - obesity 801869992 Z68.33 has lost about 10 lbs! has cut back her sugar intake due to her high bs last time Gastric reflux 892640827 K21.9 Hearing loss 41297853 H9 1.93 Advance care planning 71 0409090 Z71.89 HCP - planning to re-do her will/trust and update HCP [id number] Fernie Fernandes [facility] [address] [facility], [place] [address] 02/17/2020 10:22:21 02/17/2020 11:04:06 Essential hypertension 80482832 I10 will switch off losartan as patient states it makes her thirsty and dry mouth the patient would like to go back on HTCZ, will just monitor her kidney function more frequently Adult [facility] th examination 489513758 Z00.00 BP is elevated has been since switch from HTCZ to losartan will switch back and just watch kidneys closer never had issue with kidney function before on it Active or passive immunization 764546988 Z23 has shingle shot, old one long time ago getting flu shot at pharmacy [id number] Fernie Fernandes [facility] [address] [facility], [place] [address] 03/12/2020 14:10:33 03/12/2020 15:07:44 Pre-surgery evaluation 540577586 Z01.818 based on exam and history will clear for surgery pending labs and EKG will fax EKG separately after reading results [id number] Fernie Fernandes [facility] [address] [facility], [place] [address] 05/18/2020 08:44:16 05/18/2020 10:08:45 Essential hypertension 14999487 I10 BP has been stable on the HTCZ, no side effects CMP looks good as well Osteoarthritis 495408876 M19.90 improvemen t with surgery and PT, if need surgeon will clear out arthritis behind her patella [id number] Fernie Fernandes [facility] [address] [facility], [place] [address] 05/13/2021 10:59:04 05/13/2021 12:18:39 Essential hypertension 17734379 I10 BP has been stable with other checks and with recheck in office Hypercholesterolemia 136 88906 E78.2 will recheck labsdiscus sed stopping as she has muscle aches with it constantly [id number] Fernie Fernandes [facility] [address] [facility],[place] [address] [facility] [place] [address] 09/07/2021 11:09:39 09/12/2021 09:03:07 Hypercholesterolemia 51106541 E78.2 will recheck labsdiscus sed stopping as she has muscle aches with it constantly Essential hypertension 66298903 I10 BP has been stable with other checks and with recheck in office Degenerati on of intervertebral disc 51844987 M51.06 seeing PT for the next 6 weeks Insomnia 322591442 G47.0 0 stable Rosacea 922795012 L71.8 will trial a course of metronidaz ole cream for use Health Concerns Section Related Observation LastModified by Organization Detai ls LastModified Time None Recorded Concern Status LastModified by Organization Details LastModified Time None Recorded Advance Directives Directive None Recorded Payers Insurance Date Sequence Insurance Name Policy Number Policy Dotson Covered Member ID Dotson Member ID Guarantor Name 02/07/2022 2 AARP Crystal Holly [id number] Crystal Kerens 07/11/2023 1 MEDICARE B-GA: [facility] Crystal Roseop [id number] Crystal Leyvahrop Notes Date Note Type Note Provider Name [...] good lighting in the home DICKSON STONE [address] [place] [address], [address] 02/17/2020 10:47:42 0 text/html Pre-OpReported bypatient.Surgery to be Performed:left knee arthroscopy Dr. Jimenez, [facility] chris Risk Factorsno cognitive impairment; no functional impairment; [...] Support:adequate assistance at home DICKSON STONE [address] [place], [address], [facility] 03/12/2020 15:56:29 0 [...] sore throat, no fatigue DICKSON STONE [address] [place], [address], [facility] 05/18/2020 10:08:45 1 [...] to her side effects DICKSON STONE [address] [place], [address], [facility] 05/13/2021 11:43:58 2 [...] of their medications needed today at the appointmentronaldo padilla on medicationdenies chest pain, sob, ankle swelling, orthopnea, palpitations all questions and concerns answered today DICKSON STONE [address] [place] [address], [place], [address], [facility] 09/07/2021 11:39:36 OBGyn Episode No OBEpisode recorded.
--- OUTSIDE RECORDS SUMMARY | 2024-12-04 09:47 | XMS_ITS | Clinical Summary ---
Author Organization [facility] Address [address] [place] [address] Care Team Providers Care Manager Managing Name Role Phone Ashleigh Grullon MD Primary Care Provider [phone] Allergies Active Allergy Reactions Criticality Noted Date Comments Ampicillin Anaphylaxis High 08/15/2017 Chloramphenicol Anaphylaxis High 08/15/2017 [place] 08/30/2017 Tape Rash Medium 08/30/2017 Paper tape, [...] MORNING AND IN THE EVENING 0 Active Carbon-3 Fatty Acids (OMEGA-3 FISH OIL PO) Take [...] Immunizations Name Administration Dates Next Due Covid-19 ([place]) Dilution Required 05/11/2021,0 08/04/2020,07/14/2020 Social History Tobacco [...] 76 02/17/2022 8:12 AM EDT Temperature 36.4 C (97.5 F) 02/17/2022 8:12 AM EDT Respiratory Rate 19 02/17/2022 8:12 AM EDT [...] season) 2024 05/11/2021, 08/04/2020, 07/14/2020 Influenza Vaccine (Season Ended) 2025 02/17/2021, 02/19/2020, 02/02/2019, Additional history exists Hepatitis B Vaccines Aged Out No long er eligible based on patient's age to complete this topic RSV Ped < 20 months Aged Out No longe r eligible based on patient's age to complete this topic Medical Devices Implanted Type Area Bat Carrier Device Identifier Shelf Expiration Date Model / Serial / Lot Screw 6.5 X 45.Mm - [id number] - [id number] Implanted:Qty : 1 on 08/30/2017 by Emeka Lopez MD at [facility] Posterior: Spine Lumbar [employer] 1067.1645 / / 6.5 X 50mm Screw Modular Creo Amp - 334032 - [id number] Implanted:Qty : 3 on 08/30/2017 by Emeka Lopez MD at [facility] Posterior: Spine Lumbar [employer] 1067.1650 / / 5.5 Polyaxial Tulip Threaded Creo Amp - 762036 - [id number] Implanted:Qty : 4 on 08/30/2017 by Emeka Lopez MD at [facility] Posterior: Spine Lumbar [employer] 1119.0110 / / 5.5 Threaded Locking Cap Creo - 106199 - [id number] Implanted:Qty : 4 on 08/30/2017 by Emeka Lopez MD at [facility] Posterior: Spine Lumbar [employer] 1119.0010 / / 5.5mm Curved Gurpreet Titanium Alloy 40mm Length - 864859 - [id number] Implanted:Qty : 2 on 08/30/2017 by Emeka Lopez MD at [facility] Posterior: Spine Lumbar [facility] 1119.7040 / / Lp Hex Screw 6.5x20mm Stry-Howm 3949-2970-657 457 - [id number] Implanted:Qty : 1 on 02/16/2022 by Ottoniel Wells MD at [facility] Left: Hip [employer] [id number] 11/23/2026 2401-2865 / / [id number] Hip Insrt X3 Trident 0d 36mm E Stry-How 043-04-60c-20 0921 - [id number] Implanted:Qty : 1 on 02/16/2022 by Ottoniel Wells MD at [facility] Left: Hip [employer] [id number] 09/24/2025 623-10-36 E / / [id number] Hip Stm Parveen 127 #2 30 124 Stry-How 6020-9354b-75 7932 - [id number] Implanted:Qty : 1 on 02/16/2022 by Ottoniel Wells MD at [facility] Left: Hip [employer] [id number] 10/21/2026 2766-1862 D / / [id number] Plug Bone Sm Stry-How 7135-6-593-14 3871 - [id number] Implanted:Qty : 1 on 02/16/2022 by Ottoniel Wells MD at [facility] Left: Hip [employer] [id number] 11/16/2026 6215-5-00 1 / / [id number] E Hip Dist Spacer Ostnc Univ #8 Stry-Howm 3172-8219-789 590 - [id number] Implanted:Qty : 1 on 02/16/2022 by Ottoniel Wells MD at [facility] Left: Hip [employer] [id number] 01/19/2027 6116-9581 / / [id number] Hip Head Delta [employer]ox 36mm-2.5 Stry-Howm 8381-1-457-54 9191 - [id number] Implanted:Qty : 1 on 02/16/2022 by Ottoniel Wells MD at [facility] Left: Hip [employer] [id number] 11/10/2026 6570-0-43 6 / / [id number] Cement Bone Surg Simplex Radiopq Stry-Howm 9588-2-087-11 4092 - [id number] Implanted:Qty : 1 on 02/16/2022 by Ottoniel Wells MD at [facility] Left: Hip [employer] [id number] 05/03/2023 6190-06-04 0 / / [id number] Cement Bone Surg Simplex Radiopq Stry-Howm 6523-7-024-11 4092 - [id number] Implanted:Qty : 1 on 02/16/2022 by Ottoniel Wells MD at [facility] Left: Hip [employer] [id number] 05/03/2023 6190-06-04 0 / / [id number] Lp Hex Screw 6.5x30mm Stry-Howm 2019-2798-610 478 - [id number] Implanted:Qty : 1 on 02/16/2022 by Ottoniel Wells MD at [facility] Left: Hip [employer] [id number] 12/15/2026 0626-7437 / / [id number] Tritanium Cluster Hole Shell 52mm Stry-Howm 368-11-18x-77 0473 - [id number] Implanted:Qty : 1 on 02/16/2022 by Ottoniel Wells MD at [facility] Left: Hip [employer] [id number] 09/28/2026 702-04-52 E / / [id number] Advance Directives For more information, please contact: [phone] Documents on File Type Date Recorded Patient Support Engineer Expl anation Advance Directive and Living Will [...] way: discussion with patient . Care Teams Manager Managing Relationship Specialty Start Date End Date Ashleigh Grullon MD [address] [facility] [place] [address] PCP - General Court Magistrate 01/02/22
[2024-12-04 09:50] VITALS: BP 126/68; PULSE 75; RESP 18; TEMP 36.6; O2SAT 97; BMI 27.6
== END 2024-12-04 10:37 | disposition home or self-care (01) ==
LOC: HO.HMCC 09:29
PROVIDERS: PCP Internal Medicine; Visit Provider Internal Medicine
DX: I10 Essential (primary) hypertension (principal); E55.9 Vitamin D deficiency, unspecified; D64.9 Anemia, unspecified; F03.90 Unspecified dementia, unspecified severity, without behavioral disturbance, psychotic disturbance, mood disturbance, and anxiety

== ENCOUNTER → 2024-12-04 09:28 | Outpatient (BNVA) | payer MEDICARE, SELFPAY | PROVIDERS: PCP Internal Medicine; Visit Provider Internal Medicine | DX: I10 Essential (primary) hypertension (principal); E55.9 Vitamin D deficiency, unspecified; D64.9 Anemia, unspecified; F03.90 Unspecified dementia, unspecified severity, without behavioral disturbance, psychotic disturbance, mood disturbance, and anxiety | CPT/HCPCS: 99212 ==

== ENCOUNTER 2025-01-22 09:04 | Outpatient (AMB) | payer MEDICARE, SELFPAY ==
--- NOTE | 2025-01-22 09:09 | A.OFFVIS_ITS ---
Vital Signs 01/22/25 09:10 Height 5 ft 5 in Weight 167 lb 4 oz BMI 27.8 BP 142/88 H Blood Pressure Location Rt brachial Position Sitting Pulse 70 Pulse Source Pulse Oximeter Pulse Oximetry (%) 100 Oxygen Delivery Method Room Air Intake Visit Reasons: INP-Cerebral Infarction Intake Note: Cerebral infarction see PCP note 08.28.2024 Nurse Head Required: No Accompanied by: Daughter Allergies ampicillin (AMPICILLIN) Allergy (Severe, Verified 01/22/25 09:09) swelling in face/itchy throat tetracycline (TETRACYCLINE) Allergy (Severe, Verified 01/22/25 09:09) itchy throat/swelling in face Medication List - Last Reconciled 01/22/25 by Kelly Vazquez MD amlodipine 2.5 mg PO DAILY aspirin 81 mg PO DAILY atorvastatin 40 mg PO DAILY back brace LSO brace with thoracic extension CPT 10: M41.80 CHRISTOPHER: 99 cholecalciferol (vitamin D3) 50 mcg PO DAILY loratadine (Claritin) 10 mg PO DAILY omeprazole 40 mg PO DAILY spironolactone 25 mg PO DAILY HPI Comments Details: 84Y/O Right handed female comes for neurological evaluation following a cVA in Jun 2024 . she is accompanied by her daughter who helps with history . she dailey sh/o chronic back pain , had prior surgery , had another surgery Jun 18 2024. The evening of surgery she c/o weakness of left leg . MRI Brain showed an ACute Stroke in right Frontal region. she was seen by Dr. Parsons - suggested Aspirin 81 mg qd. [facility] ,then she moved to [facility]isted Living and had fall there.She wnet to rehab again and spent a few weeks She noticed mild improvement left leg . she has some speech difficulties CTA showed severe Right ABHIJIT stenosis and distal Left [employer] stenosis Since the stroke her cognition declined significantly she is also depressed. she has snoring and some daytime sleepiness [facility] Medical History (Updated 01/22/25 @ 10:08 by Kelly Vazquez MD) Cognitive disorder Hypersomnia Snoring Dementia Memory loss Lumbar stenosis Scoliosis (and kyphoscoliosis), idiopathic Cerebral infarction Hyperlipidemia Uses roller walker Arthritis Back pain GERD (gastroesophageal reflux disease) Numbness Seasonal allergies [place] (hard of hearing) GI bleed due to NSAIDs Osteoarthritis Elevated cholesterol Hyperglycemia HTN (hypertension) Vertigo Gastritis Scoliosis (and kyphoscoliosis), idiopathic Anemia Surgical History S/P lumbar fusion Hx of spinal surgery (07/18/23) Hx of tonsillectomy History of total left knee replacement History of esophagogastroduodenoscopy (EGD) H/O colonoscopy History of lumbar laminectomy History of total left hip arthroplasty History of appendectomy H/O cataract removal with insertion of prosthetic lens Family History Father No problems noted. Mother Breast cancer Social History Household Members: Family Household Members Other:: sister Housing: Condominium Are you a primary director of primary care to a significant other at home: No Do you presently have visiting nurse or other home services: No Patient Tobacco Use Status: Former Tobacco user Tobacco use type: Cigarette e-Cigarette/Vaping Use: Never Used Substance Use Type: Other Advance Directives Date on File: 10/16/22 service: No Current occupational status: retired Cognitive needs: No Hearing needs: Yes Vision needs: No Physical Exam Vital Signs: Last Vital Signs Pulse 70 01/22/25 09:10 BP 142/88 H 01/22/25 09:10 Pulse Ox 100 01/22/25 09:10 Oxygen Delivery Method Room Air 01/22/25 09:10 BMI result Body Mass Index 27.8 Const General: cooperative, healthy appearing and comfortable Nutritional Appearance: average body habitus Orientation/consciousness: patient oriented x3 Eyes Pupils: Equal, round and reactive pupils present Neuro Other: Left LE- Hip flexion- 4-/5 Knee flexion and extension 4-/5 Foot dorsiflexion - 3/5 Plantar flexion 3/5 Mild increased Tone Mild facial asymmetry Gait- drags her left foot General: patient oriented x3 and moves all extremities Cranial nerves: Yes Facial sensation intact/muscles of mastication intact, Yes Equal, round and reactive pupils present, Yes Bilaterally intact EOM present, Yes Nystagmus not present, Yes Normal facial strength present, Yes Midline tongue present and Yes Ability to bilaterally elevate shoulders present Cognition (Neuro): normal cognition Motor exam (neuro): Normal motor muscle tone present throughout Deep tendon reflexes (DTR's): Right triceps reflex intensity grade: 2+, Left triceps reflex intensity grade: 2+, Rt Biceps (C5, C6): 2+, Left biceps reflex intensity grade: 2+, Right brachioradialis reflex intensity grade: 2+, Left brachioradialis reflex intensity grade: 2+, Right patellar reflex intensity grade: 2+ and Left patellar reflex intensity grade: 2+ Coordination: [id number] test normal Orientation What is the (year) (season) (date) (day) (month)?: year, season and month Where are we (state) (county) (town or city) (hospital) (floor)?: state, county, town or city, hospital/clinic and floor Registration Name of 3 unrelated objects clearly and slowly, then ask patient to repeat all 3 of them. (1st repeat determines score. Make sure they can repeat all three): object 1, object 2 and object 3 Attention & Calculation (CHOOSE ONE) Spell WORLD backwards (DLROW): 5 letters Recall Ask patient to repeat the 3 items from question #3.: object 1 Language Show patient a wristwatch & ask what it is. Repeat for pencil.: watch and pencil Ask the patient to repeat the phrase 'No ifs, ands, or buts' after you.: correct Ask the patient to 'take a piece of paper with their right hand' 'fold paper in half' 'place paper on floor': take paper in right hand, fold paper in half and place paper on floor Print the sentence 'CLOSE YOUR EYES' on a piece. If patient actually closes eyes then score.: followed written direction Give patient a blank piece of paper & ask to write a sentence. Score if it contains a noun & verb.: sentence contains subject and verb Ask patient to copy figure of intersecting pentagons exactly. Score if all 10 angles & 2 intersects are included.: all 10 angles present & 2 are intersected Score Score: 26 Results Reviewed Results Reviewed: CT Brain 07/2024No acute fracture, bony calvarium. No acute intracranial hemorrhage. Small vessel occlusive disease. Superimposed acute stroke/nonhemorrhagic ischemia cannot be excluded. Global cerebral atrophy. Probable high riding left internal jugular bulb. CTA Neck and head 06/2024 No acute intracranial process on the noncontrast CT head. 2. No significant stenosis of the internal carotid artery and vertebral artery. Area of severe stenosis of the left distal [employer]. There are areas of severe stenosis or occlusion of the right ABHIJIT. Correlation with angiogram finding is recommended. 3. No evidence of dural venous sinus thrombosisR MRI Brain 06/20/24-.Punctate area of acute ischemic change in right frontal lobe parafalcine region and along the right frontal cortical gyrus. No evidence acute or chronic hemorrhagic products. Chronic small vessel ischemic changes with slight cerebral volume loss. Assessment & Plan Assessment & Plan (1) Cerebral infarction: Comment: 06/2024 after spinal surgery, left lower extremity weakness, CT angiogram severe stenosis left distal [employer], right ABHIJIT Code(s): I63.9 - Cerebral infarction, unspecified Category: Medical Qualifiers: Cerebral infarction mechanism: unspecified mechanism Qualified Code(s): I63.9 - Cerebral infarction, unspecified (2) Cognitive disorder: Comment: Did well on MMSE 27/30 Code(s): F09 - Unspecified mental disorder due to known physiological condition Category: Medical Plan Patients daughter and the patient declines ref to Vascular neurologist for any intervention of Intracranial stenosis ABHIJIT and [employer]. Continue aspirin 81mg qd Home sleep test to r/o sleep apnea I will trial her on citalopram 10 mg qd for mood which is likley contributing to her cognitive decline along with vascular etiology Continue OT and PT Encouraged her to participate in exercise classes and other social activities at the [facility]. Orders: Orders RT home sleep study Today G47.10 - Hypersomnia, unspecified, R06.83 - Snoring Medications: New citalopram 10 mg PO DAILY 30 tabs 6RF Coding Level of Care Code New Pt Level 4 (74926) Complex EM visit Add On G2211 Diagnoses Cerebral infarction, unspecified mechanism I63.9 Cerebral infarction mechanism: unspecified mechanism Cognitive disorder F09
[2025-01-22 09:10] VITALS: BP 142/88; PULSE 70; O2SAT 100; BMI 27.8
--- OUTSIDE RECORDS SUMMARY | 2025-01-22 10:08 | XMS_ITS | Encounter Summary ---
Author Organization [facility] Address [address] [place] [address] Care Team Providers Care Cold Saw Operator Name Role Phone Unavailable Primary Care Provider Unavailabl e Encounter Details Date Type Department Care Team (Late st Contact Info) Description 03/17/2020 Lab Requisition [facility] [address] [place] [address] Boo Milian PA-C [address] [place] [address] Encounter for laboratory testing for COVID-19 virus [...] SUKUMAR COVID-19 RT-PCR Assay is Real-Time Reverse Training Professional Polymerase Chain Reaction (frickertron checker-PCR) for the in vitro qualitative detection of three SARS-Cov-2 target sequences unique to the coronavirus disease 2019 (COVID-19). This is an Emergency Use Authorization (EUA) in vitro diagnostic (IVD) test that has been modified to include the Siteminis automated liquid handler. Its analytical performance characteristics have been determined by the bindery helper and verified by [facility] in a manner consistent with CLIA [...] at the following links: For Healthcare Providers: https://www.fda.gov/media/352115/download For Patients: https://www.KidAdmit.gov/media/705226/download TEST LIMITATIONS Positive results are indicative of [...] system. For further details refer to the [employer] TaqPath COVID-19 Combo Kit EUA submission (https://www.KidAdmit.gov/media/475198/download). ----- Test performed by [facility], [address] [place] [id number] CLIA# [id number] Antoine Shah M.D., Ph.D., [facility] Clinical Shot Blast Equipment Operator Microbiology Nasopharyngeal swab / Unknown 03/17/2020 2:45 PM EDT 03/17/2020 2:45 PM EDT Narrative [facility] - 03/18/2020 5:59 PM EDT Performed at [facility], [address] [place] [address], [facility] 0695, CLIA [id number] Boo Milian PA-C MICROBIOLOGY - GENERAL OR DERABLES Final Result [facility] [address] [place] [address] documented in this encounter Visit Diagnoses Diagnosis Encounter for laboratory testing for COVID-19 virus documented in this encounter
--- OUTSIDE RECORDS SUMMARY | 2025-01-22 10:08 | XMS_ITS | Clinical Summary ---
Author Organization [facility] Address [address] [place] [address] Care Team Providers Care Warehouse Receiving Clerk Name Role Phone Ashleigh Grullon MD Primary Care Provider [phone] Allergies Active Allergy Reactions Criticality Noted Date Comments Ampicillin Anaphylaxis High 08/15/2017 Chloramphenicol Anaphylaxis High 08/15/2017 [place] 08/30/2017 Tape Rash Medium 08/30/2017 Paper tape, [...] MORNING AND IN THE EVENING 0 Active [place]-3 Fatty Acids ([place]-3 FISH OIL PO) Take [...] Immunizations Name Administration Dates Next Due Covid-19 (A[place]on) Dilution Required 05/11/2021,0 08/04/2020,07/14/2020 Social History Tobacco [...] - Tdap) 08/25/2018 08/24/2018 COVID-19 Vaccine ( season) 2024 05/11/2021, 08/04/2020, 07/14/2020 Influenza Vaccine (#1) 2025 , 02/19/2020, 02/02/2019, Additional history exists Hepatitis B Vaccines Aged Out No long er eligible based on patient's age to complete this topic RSV Ped < 20 months Aged Out No longe r eligible based on patient's age to complete this topic Medical Devices Implanted Type Area Behavioral Health Director Device Identifier Shelf Expiration Date Model / Serial / Lot Screw 6.5 X 45.Mm - [id number] - [id number] Implanted:Qty : 1 on 08/30/2017 by Emeka Lopez MD at [facility] and Med Posterior: Spine Lumbar [employer] 1067.1645 / / 6.5 X 50mm Screw Modular Creo Amp - [id number] - [id number] Implanted:Qty : 3 on 08/30/2017 by Emeka Lopez MD at [facility] and Med Posterior: Spine Lumbar [employer] 1067.1650 / / 5.5 Polyaxial Tulip Threaded Creo Amp - [id number] - [id number] Implanted:Qty : 4 on 08/30/2017 by Emeka Lopez MD at [facility] and Med Posterior: Spine Lumbar [employer] 1119.0110 / / 5.5 Threaded Locking Cap Creo - 618274 - [id number] Implanted:Qty : 4 on 08/30/2017 by Emeka Lopez MD at [facility] and Med Posterior: Spine Lumbar [employer] 1119.0010 / / 5.5mm Curved Gurpreet Titanium Alloy 40mm Length - [id number] - [id number] Implanted:Qty : 2 on 08/30/2017 by Emeka Lopez MD at [facility] and Med Posterior: Spine Lumbar [facility] 1119.7040 / / Lp Hex Screw 6.5x20mm Stry-Howm 1519-8846-976 457 - [id number] Implanted:Qty : 1 on 02/16/2022 by Ottoniel Wells MD at [facility] and Med Left: Hip [facility] [id number] 11/23/2026 3536-0066 / / [id number] Hip Insrt X3 Trident 0d 36mm E Stry-How 690-07-55m-20 0921 - [id number] Implanted:Qty : 1 on 02/16/2022 by Ottoniel Wells MD at [facility] and Med Left: Hip [facility] [id number] 09/24/2025 623-10-36 E / / [id number] Hip Stm Parveen 127 #2 30 124 Stry-How 2723-7004k-25 7932 - [id number] Implanted:Qty : 1 on 02/16/2022 by Ottoniel Wells MD at [facility] and Med Left: Hip [facility] [id number] 10/21/2026 8530-2803 D / / [id number] Plug Bone Sm Stry-How 4799-4-393-14 3871 - [id number] Implanted:Qty : 1 on 02/16/2022 by Ottoniel Wells MD at [facility] and Med Left: Hip [facility] [id number] 11/16/2026 6215-5-00 1 / / [id number] E Hip Dist Spacer Ostnc Univ #8 Stry-Howm 9134-7917-489 590 - [id number] Implanted:Qty : 1 on 02/16/2022 by Ottoniel Wells MD at [facility] and Med Left: Hip [facility] [id number] 01/19/2027 9091-7062 / / [id number] Hip Head Delta [employer] 36mm-2.5 Stry-Howm 0209-6-529-54 9191 - [id number] Implanted:Qty : 1 on 02/16/2022 by Ottoniel Wells MD at [facility] and [facility] Left: Hip [facility] [id number] 11/10/2026 6570-0-43 6 / / [id number] Cement Bone Surg Simplex Radiopq Stry-Howm 7838-3-346-11 4092 - [id number] Implanted:Qty : 1 on 02/16/2022 by Ottoniel Wells MD at [facility] and [facility] Left: Hip [facility] [id number] 05/03/2023 6190-06-04 0 / / [id number] Cement Bone Surg Simplex Radiopq Stry-Howm 0173-1-545-11 4092 - [id number] Implanted:Qty : 1 on 02/16/2022 by Ottoniel Wells MD at [facility] and Med Left: Hip [facility] [id number] 05/03/2023 6190-06-04 0 / / [id number] Lp Hex Screw 6.5x30mm Stry-Howm 9312-6489-905 478 - [id number] Implanted:Qty : 1 on 02/16/2022 by Ottoniel Wells MD at [facility] and [facility] Left: Hip [facility] [id number] 12/15/2026 1507-4907 / / [id number] Tritanium Cluster Hole Shell 52mm Stry-Howm 658-69-83q-77 0473 - [id number] Implanted:Qty : 1 on 02/16/2022 by Ottoniel Wells MD at [facility] and [facility] Left: Hip [facility] [id number] 09/28/2026 702-04-52 E / / [id number] Advance Directives For more information, please contact: [phone] Documents on File Type Date Recorded Patient Vat Tender Expl anation Advance Directive and Living Will [...] way: discussion with patient . Care Teams Warehouse Receiving Clerk Relationship Specialty Start Date End Date Ashleigh Grullon MD [address] [facility] [place] [address] PCP - General Wrinkle Chaser 01/02/22
--- OUTSIDE RECORDS SUMMARY | 2025-01-22 10:08 | XMS_ITS | Patient Health Record ---
Author Organization [facility] Address [address] [place] [address] Care Team Providers Care Technical Applications Specialist Name Role Phone Ashleigh Grullon MD Primary Care Provider Mukesh Taveras [phone] Allergies Allergen (clinical drug ingredient) Drug/Non Drug [...] Status Risk Notes Problem Acute hemorrhagic gastritis (4907219) Acute gastritis with bleeding (K29.01) Active confirmed Problem Diverticular disease of colon (611228300) Diverticulosis of large intestine without perforation or abscess without bleeding (K57.30) Active confirmed Problem Iron deficiency anemia (89081636) Iron deficiency anemia (D50.9) Active confirmed Problem Hiatal hernia (97898840) Hiatal hernia (K44.9) Active confirmed Problem Chronic diarrhea (055534895) Chronic diarrhea (K52.9) Active confirmed Problem Chronic antral gastritis with hemorrhage (disorder) (393798399) Chronic gastritis with bleeding, unspecified gastritis type (K29.51) Active confirmed Problem Gastric ulcer (627948654) Gastric ulcer (K25.9) Active confirmed Problem Erosive gastritis (245592989262836 0) Gastritis, erosive (K29.60) Active confirmed Plan Of Treatment Future Test Test Name Order Date UPPER GI ENDOSCOPY 02/26/2014 COLONOSCOPY 02/26/2014 Insurance Providers Payer Name Payer Address Payer Phone Subscriber Number Group Number Insured Name Patient Relationship to Insured Coverage Start Date Coverage End Date MEDICARE OF [place] [address] [place] [id number] SRINIVASAN ALVARADO Self - patient is the insured [employer] [address] [place] [address] [phone] [id number] SRINIVASAN ALVARADO Self - patient is the insured Medical (General) History Medical History History ICD Code Denies CO,DM,CVA,Lung disease,renal dise ase Colonoscopy in 10/2001 with [...]
--- OUTSIDE RECORDS SUMMARY | 2025-01-22 10:08 | XMS_ITS | Encounter Summary ---
Author Organization [facility] [place] [address] Care Team Providers Care Outbound Sales Consultant Name Role Phone Leonardo García MD Primary Care Provider Encounter Details Date Type Department Care Team (Late st Contact Info) Description 06/23/2024 Lab Requisition [facility] [address] [facility] [place] [address] Chris Barlow MD [address] [place] [address] Encounter for other general examination Social History [...] * Magnesium (06/23/2024 5:46 AM EST) Pathologist [facility] Magnesium 2.1 1.9 - 2.6 mg/dL LAB CHEMISTRY METHOD 06/23/2024 12:17 PM [facility] Blood Venous blood specimen / Unknown Venipuncture / Unknown 06/23/2024 5:46 AM EST 06/23/2024 10:54 AM EST us Chris Barlow MD LAB BLOOD ORDERABLES Final Resu lt [facility] [address] [place] [address], [place] [phone] * (ABNORMAL) Basic metabolic panel (06/23/2024 5:46 AM EST) [facility] Sodium 137 133 - 145 mmol/L LAB CHEMISTRY METHOD 06/23/2024 12:24 PM [facility] Potassium 3.7 3.5 - 5.5 mmol/L LAB CHEMISTRY METHOD 06/23/2024 12:24 PM [facility] Chloride 100 96 - 110 mmol/L LAB CHEMISTRY METHOD 06/23/2024 12:24 PM [facility] CO2 29 21 - 32 mmol/L LAB CHEMISTRY METHOD 06/23/2024 12:24 PM [facility] Anion Gap 8 3 - 11 LAB CHEMISTRY METHOD 06/23/2024 12:24 PM [facility] Glucose 106(H) 70 - 100 mg/dL LAB CHEMISTRY METHOD 06/23/2024 12:24 PM [facility] BUN 23 5 - 25 mg/dL LAB CHEMISTRY METHOD 06/23/2024 12:24 PM [facility] Creatinine 0.83 0.50 - 1.10 mg/dL LAB CHEMISTRY METHOD 06/23/2024 12:24 PM [facility] eGFR 70 >=60 mL/min/1. 73m2 LAB CHEMISTRY METHOD 06/23/2024 12:24 PM EST [facility] Comment:Calculation based on the Chronic Kidney Disease Epidemiology Collaboration (CKD-EPI) equation refit without adjustment for race. BUN/Creatinine Ratio 27.7 LAB CHEMISTRY METHOD 06/23/2024 12:24 PM EST [facility] Calcium 8.4(L) 8.5 - 10.5 mg/dL LAB CHEMISTRY METHOD 06/23/2024 12:24 PM [facility] Blood Venous blood specimen / Unknown Venipuncture / Unknown 06/23/2024 5:46 AM EST 06/23/2024 10:54 AM EST us Chris Barlow MD LAB BLOOD ORDERABLES Final Resu lt [facility] [address] [place] [address], documented in this encounter Visit Diagnoses Diagnosis Encounter for other general examination documented in this encounter Additional Health Concerns Infection Onset Date Last Indicated Resolved Time Respiratory Rule-Out 07/26/2024 07/26/2024 025 3:02 AM EST COVID-19 Rule-Out 07/26/2024 07/26/2024 07/26/2024 3:02 AM EST documented as of this encounter Care Teams Outbound Sales Consultant Relationship Specialty Start Date End Date Leonardo García MD [address] [place] [address] PCP - General Internal Medicine 06/30/24 documented as of this encounter
== END 2025-01-22 10:12 | disposition home or self-care (01) ==
LOC: HO.HSMS 09:05
PROVIDERS: PCP Internal Medicine; Visit Provider Psychiatry & Neurology Neurology
DX: I63.9 Cerebral infarction, unspecified (principal); R41.89 Other symptoms and signs involving cognitive functions and awareness
CPT/HCPCS: 99204; G2211

== ENCOUNTER → 2025-01-22 09:04 | Outpatient (BNVA) | payer MEDICARE, SELFPAY | PROVIDERS: PCP Internal Medicine; Visit Provider Psychiatry & Neurology Neurology | DX: F09 Unspecified mental disorder due to known physiological condition (principal); Z86.73 Personal history of transient ischemic attack (TIA), and cerebral infarction without residual deficits | CPT/HCPCS: 99202 ==

== ENCOUNTER → 2025-01-27 23:59 | Outpatient (BNV) | payer MEDICARE, SELFPAY | PROVIDERS: PCP Internal Medicine; Visit Provider Internal Medicine | DX: F03.90 Unspecified dementia, unspecified severity, without behavioral disturbance, psychotic disturbance, mood disturbance, and anxiety (principal); I10 Essential (primary) hypertension; E78.00 Pure hypercholesterolemia, unspecified | CPT/HCPCS: G0179 ==

== ENCOUNTER 2025-02-16 07:31 | Outpatient (REF) | payer MEDICARE, SELFPAY ==
--- OUTSIDE RECORDS SUMMARY | 2025-02-16 07:34 | XMS_ITS | Encounter Summary ---
Author Organization [facility] [place] [address] Care Team Providers Care Horseradish Grinder Name Role Phone Leonardo García MD Primary Care Provider [phone] Encounter Details Date Type Department Care Team (Late st Contact Info) Description 07/05/2024 Lab Requisition [facility] - Main Lab [address] [facility] [place] [address] Chris Barlow MD [address] [place] [address] Encounter for other general examination Social History [...] CBC auto differential (07/05/2024 7:00 AM EST) [facility] Signature WBC 9.9 4.8 - 10.8 K/mcL LAB HEMETOLOGY METHOD 07/05/2024 11:[address] [facility] RBC 3.60(L) 3.80 - 4.80 M/mcL LAB HEMETOLOGY METHOD 07/05/2024 11:[address] [facility] Hemoglobin 10.7(L) 11.5 - 16.0 g/dL LAB HEMETOLOGY METHOD 07/05/2024 11:[address] [facility] Hematocrit 32.8(L) 35.0 - 47.0 % LAB HEMETOLOGY METHOD 07/05/2024 11:[address] [facility] MCV 92.1 79.0 - 98.0 FL LAB HEMETOLOGY METHOD 07/05/2024 11:[address] [facility] MCH 30.1 27.0 - 32.0 pcg LAB HEMETOLOGY METHOD 07/05/2024 11:[address] [facility] MCHC 32.6 32.0 - 37.0 g/dL LAB HEMETOLOGY METHOD 07/05/2024 11:[address] [facility] RDW 14.2 11.0 - 15.0 % LAB HEMETOLOGY METHOD 07/05/2024 11:[address] [facility] Platelets 439(H) 130 - 400 K/mcL LAB HEMETOLOGY METHOD 07/05/2024 11:[address] [facility] MPV 8.9 7.0 - 11.0 FL LAB HEMETOLOGY METHOD 07/05/2024 11:[address] [facility] NRBC 0.0 <1.0 % LAB HEMETOLOGY METHOD 07/05/2024 11:[address] [facility] NRBC Absolute 0.00 <0.10 K/mcL LAB HEMETOLOGY METHOD 07/05/2024 11:[address] [facility] Neutrophils Relative 71.2 % LAB HEMETOLOGY METHOD 07/05/2024 11:[address] [facility] Lymphocytes Relative 16.3 % LAB HEMETOLOGY METHOD 07/05/2024 11:[address] [facility] Monocytes Relative 10.4 % LAB HEMETOLOGY METHOD 07/05/2024 11:[address] [facility] Eosinophils Relative 1.2 % LAB HEMETOLOGY METHOD 07/05/2024 11:[address] [facility] Basophils Relative 0.4 % LAB HEMETOLOGY METHOD 07/05/2024 11:[address] [facility] Immature Granulocytes Relative 0.5 % LAB HEMETOLOGY METHOD 07/05/2024 11:[address] [facility] Neutrophils Absolute 7.06(H) 1.50 - 7.00 K/mcL LAB HEMETOLOGY METHOD 07/05/2024 11:[address] [facility] Lymphocytes Absolute 1.62 1.00 - 5.00 K/mcL LAB HEMETOLOGY METHOD 07/05/2024 11:[address] [facility] Monocytes Absolute 1.03(H) 0.20 - 1.00 K/mcL LAB HEMETOLOGY METHOD 07/05/2024 11:[address] [facility] Eosinophils Absolute 0.12 0.00 - 0.50 K/mcL LAB HEMETOLOGY METHOD 07/05/2024 11:[address] [facility] Basophils Absolute 0.04 0.00 - 0.20 K/mcL LAB HEMETOLOGY METHOD 07/05/2024 11:[address] [facility] Immature Granulocytes Absolute 0.05(H) 0.00 - 0.03 K/mcL LAB HEMETOLOGY METHOD 07/05/2024 11:42 AM EST [facility] Blood Venous blood specimen / Unknown Venipuncture / Unknown 07/05/2024 7:00 AM EST 07/05/2024 10:39 AM EST Chris Barlow MD LAB BLOOD ORDERABLES Final Resu lt Performing Organization Address City/[facility]/ZIP Co de Phone Number [facility] [address] [place] [address], [place] [phone] * Magnesium (07/05/2024 7:00 AM EST) Pathologist [facility] Magnesium 2.4 1.9 - 2.6 mg/dL LAB CHEMISTRY METHOD 07/05/2024 12:15 PM EST [facility] Blood Venous blood specimen / Unknown Venipuncture / Unknown 07/05/2024 7:00 AM EST 07/05/2024 10:39 AM EST Chris Barlow MD LAB BLOOD ORDERABLES Final Resu lt Performing Organization Address [facility]/ZIP Co de Phone Number [facility] [address] [place] [address], [place] [phone] * (ABNORMAL) Comprehensive metabolic panel (07/05/2024 7:00 AM EST) Sodium 132(L) 133 - 145 mmol/L LAB CHEMISTRY METHOD 07/05/2024 12:14 PM EST [facility] Potassium 4.3 3.5 - 5.5 mmol/L LAB CHEMISTRY METHOD 07/05/2024 12:14 PM EST [facility] Chloride 98 96 - 110 mmol/L LAB CHEMISTRY METHOD 07/05/2024 12:14 PM EST [facility] CO2 28 21 - 32 mmol/L LAB CHEMISTRY METHOD 07/05/2024 12:[address] [facility] Anion Gap 6 3 - 11 LAB CHEMISTRY METHOD 07/05/2024 12:[address] [facility] Glucose 95 70 - 100 mg/dL LAB CHEMISTRY METHOD 07/05/2024 12:[address] [facility] BUN 21 5 - 25 mg/dL LAB CHEMISTRY METHOD 07/05/2024 12:[address] [facility] Creatinine 0.80 0.50 - 1.10 mg/dL LAB CHEMISTRY METHOD 07/05/2024 12:[address] [facility] eGFR 74 >=60 mL/min/1. 73m2 LAB CHEMISTRY METHOD 07/05/2024 12:[address] [facility] Comment:Calculation based on the Chronic Kidney Disease Epidemiology Collaboration (CKD-EPI) equation refit without adjustment for race. BUN/Creatinine Ratio 26.3 LAB CHEMISTRY METHOD 07/05/2024 12:[address] [facility] Calcium 8.9 8.5 - 10.5 mg/dL LAB CHEMISTRY METHOD 07/05/2024 12:[address] [facility] AST (SGOT) 20 10 - 42 unit/L LAB CHEMISTRY METHOD 07/05/2024 12:[address] [facility] ALT (SGPT) 50 10 - 60 unit/L LAB CHEMISTRY METHOD 07/05/2024 12:[address] [facility] Alkaline Phosphatase 203(H) 42 - 121 unit/L LAB CHEMISTRY METHOD 07/05/2024 12:[address] [facility] Total Protein 6.1 6.0 - 8.0 g/dL LAB CHEMISTRY METHOD 07/05/2024 12:[address] [facility] Albumin 3.5 3.2 - 5.0 g/dL LAB CHEMISTRY METHOD 07/05/2024 12:[address] [facility] Total Bilirubin 0.9 0.0 - 1.4 mg/dL LAB CHEMISTRY METHOD 07/05/2024 12:14 PM EST [facility] Blood Venous blood specimen / Unknown Venipuncture / Unknown 07/05/2024 7:00 AM EST 07/05/2024 10:39 AM EST us Chris Barlow MD LAB BLOOD ORDERABLES Final Resu lt [facility] [address] [place] [address], documented in this encounter Visit Diagnoses Diagnosis Encounter for other general examination documented in this encounter Additional Health Concerns Infection Onset Date Last Indicated Resolved Time Respiratory Rule-Out 07/26/2024 07/26/2024 025 3:02 AM EST COVID-19 Rule-Out 07/26/2024 07/26/2024 07/26/2024 3:02 AM EST documented as of this encounter Care Teams Horseradish Grinder Relationship Specialty Start Date End Date Leonardo García MD [address] [place] [phone] PCP - General Internal Medicine 06/30/24 documented as of this encounter
--- OUTSIDE RECORDS SUMMARY | 2025-02-16 07:34 | XMS_ITS | Encounter Summary ---
Author Organization [facility] Address [address] [place] [address] Care Team Providers Care Bus Person Dishwasher Name Role Phone Leonardo García MD Primary Care Provider [phone] Encounter Details Date Type Department Care Team (Late st Contact Info) Description 07/06/2024 Lab Requisition [facility] - Main Lab [address] [facility] [place] [phone] Chris Barlow MD [address] [place] [address] Encounter for other general examination Social History [...] Culture urine (07/06/2024 10:07 AM EST) Pathologist [facility] Culture, Urine >100,000 CFU/mL Escherichia coli(A) JUDIE [...] MICROBIOLOGY - GENERAL ORDE GONZALEZ Final Result [facility] [address] [place] [address], [place] [phone] * Jay urine culture tube (07/06/2024 10:07 AM EST) Extra Tube Hold for add-ons. 07/06/2024 4:01 PM [facility] Comment:Auto resulted. Urine Urine specimen obtained by clean catch procedure / Unknown 07/06/2024 10:07 AM EST 07/06/2024 2:09 PM EST us Chris Barlow MD LAB URINE ORDERABLES Final Resu lt [facility] [address] [place] [address], [place] [phone] * (ABNORMAL) Urinalysis with reflex microscopic and culture (07/06/2024 10:07 AM EST) [facility] [place] Urine 1.022 1.003 - 1.030 LAB URINALYSIS - AUTOMATED METHOD 07/06/2024 3:05 PM [facility] pH, Urine 5.5 5.0 - 8.0 pH LAB URINALYSIS - AUTOMATED METHOD 07/06/2024 3:05 PM [facility] Leukocytes, Urine Large(A) Negative LAB URINALYSIS - AUTOMATED METHOD 07/06/2024 3:05 PM [facility] Nitrite, Urine Positive(A) Negative LAB URINALYSIS - AUTOMATED METHOD 07/06/2024 3:05 PM [facility] Protein, Urine Negative <=Trace mg/dL LAB URINALYSIS - AUTOMATED METHOD 07/06/2024 3:05 PM [facility] Glucose, Urine Negative Negative mg/dL LAB URINALYSIS - AUTOMATED METHOD 07/06/2024 3:05 PM [facility] Ketones, Urine Negative Negative mg/dL LAB URINALYSIS - AUTOMATED METHOD 07/06/2024 3:05 PM [facility] Urobilinogen , Urine 1.0 0.2 - 1.0 mg/dL LAB URINALYSIS - AUTOMATED METHOD 07/06/2024 3:05 PM EST [facility] Bilirubin, Urine Negative Negative LAB [...] lt [facility] [address] [place] [address], documented in this encounter Visit Diagnoses Diagnosis Encounter for other general examination documented in this encounter Additional Health Concerns Infection Onset Date Last Indicated Resolved Time Respiratory Rule-Out 07/26/2024 07/26/2024 025 3:02 AM EST COVID-19 Rule-Out 07/26/2024 07/26/2024 07/26/2024 3:02 AM EST documented as of this encounter Care Teams Bus Person Dishwasher Relationship Specialty Start Date End Date Leonardo García MD [address] [place] [address] PCP - General Internal Medicine 06/30/24 documented as of this encounter
--- OUTSIDE RECORDS SUMMARY | 2025-02-16 07:34 | XMS_ITS | Encounter Summary ---
Author Organization [facility] [place] [address] Care Team Providers Care Silver Recovery Operator Name Role Phone Leonardo García MD Primary Care Provider [phone] Encounter Details Date Type Department Care Team (Late st Contact Info) Description 06/23/2024 Lab Requisition [facility] - Main Lab [address] [facility] [place] [address] Chris Barlow MD [address] [place] [address] Encounter for other general examination Social History [...] * Magnesium (06/23/2024 5:46 AM EST) Pathologist [facility] Magnesium 2.1 1.9 - 2.6 mg/dL LAB CHEMISTRY METHOD 06/23/2024 12:17 PM [facility] Blood Venous blood specimen / Unknown Venipuncture / Unknown 06/23/2024 5:46 AM EST 06/23/2024 10:54 AM EST us Chris Barlow MD LAB BLOOD ORDERABLES Final Resu lt [facility] [address] [place] [address], [place] [phone] * (ABNORMAL) Basic metabolic panel (06/23/2024 5:46 AM EST) [facility] Sodium 137 133 - 145 mmol/L LAB CHEMISTRY METHOD 06/23/2024 12:24 PM [facility] Potassium 3.7 3.5 - 5.5 mmol/L LAB CHEMISTRY METHOD 06/23/2024 12:24 PM [facility] Chloride 100 96 - 110 mmol/L LAB CHEMISTRY METHOD 06/23/2024 12:24 PM [facility] CO2 29 21 - 32 mmol/L LAB CHEMISTRY METHOD 06/23/2024 12:24 PM [facility] Anion Gap 8 3 - 11 LAB CHEMISTRY METHOD 06/23/2024 12:24 PM [facility] Glucose 106(H) 70 - 100 mg/dL LAB CHEMISTRY METHOD 06/23/2024 12:24 PM [facility] BUN 23 5 - 25 mg/dL LAB CHEMISTRY METHOD 06/23/2024 12:24 PM [facility] Creatinine 0.83 0.50 - 1.10 mg/dL LAB CHEMISTRY METHOD 06/23/2024 12:24 PM [facility] eGFR 70 >=60 mL/min/1. 73m2 LAB CHEMISTRY METHOD 06/23/2024 12:24 PM EST [facility] Comment:Calculation based on the Chronic Kidney Disease Epidemiology Collaboration (CKD-EPI) equation refit without adjustment for race. BUN/Creatinine Ratio 27.7 LAB CHEMISTRY METHOD 06/23/2024 12:24 PM EST [facility] Calcium 8.4(L) 8.5 - 10.5 mg/dL LAB CHEMISTRY METHOD 06/23/2024 12:24 PM [facility] Blood Venous blood specimen / Unknown Venipuncture / Unknown 06/23/2024 5:46 AM EST 06/23/2024 10:54 AM EST us Chris Barlow MD LAB BLOOD ORDERABLES Final Resu lt [facility] [address] [place] [address], documented in this encounter Visit Diagnoses Diagnosis Encounter for other general examination documented in this encounter Additional Health Concerns Infection Onset Date Last Indicated Resolved Time Respiratory Rule-Out 07/26/2024 07/26/2024 025 3:02 AM EST COVID-19 Rule-Out 07/26/2024 07/26/2024 07/26/2024 3:02 AM EST documented as of this encounter Care Teams Silver Recovery Operator Relationship Specialty Start Date End Date Leonardo García MD [address] [place] [phone] PCP - General Internal Medicine 06/30/24 documented as of this encounter
--- OUTSIDE RECORDS SUMMARY | 2025-02-16 07:34 | XMS_ITS | Clinical Summary ---
Author Organization [facility] Address [address] [place] [address] Care Team Providers Care Junior Java Developer Name Role Phone Unavailable Primary Care Provider Unavailabl e Social History Tobacco Use Types Packs/Day Years Used Date Smoking Tobacco: Never Assessed Comments Unknown Sex and Gender Information Value Date Recorded Sex Assigned at Not on file Legal Sex Female 11:34 AM EDT Gender Identity Not on file Sexual Orientation Not on file Plan of Treatment Health Maintenance Due Date Last Done Comments Advance Care Planning 1942 DTaP/Tdap/Td Vaccines (1 - Tdap) 1961 Pneumococcal Vaccines 50+ (1 of 1 - PCV) 1992 Zoster (Shingles) Vaccine (1 of 2) 1992 DXA Bone Density (Females,Ag es 65 and older) 2007 RSV Vaccine 60 years and old er and Patients (1 - 1-dose 75+ series) 2017 Influenza Vaccine 01/02/2025 COVID-19 Vaccine ( - 2023-2 5 season) 2025 Hepatitis B Vaccines Aged Out No long er eligible based on patient's age to complete this topic Insurance MEDICARE PART A & B
--- OUTSIDE RECORDS SUMMARY | 2025-02-16 07:34 | XMS_ITS | Patient Health Record ---
Author Organization [facility] Address [address] [place] [address] Care Team Providers Care Power Tool Repair Technician Name Role Phone Ashleigh Grullon MD Primary Care Provider Mukesh Taveras [phone] Allergies Allergen (clinical drug ingredient) Drug/Non Drug [...] Status Risk Notes Problem Acute hemorrhagic gastritis (8791490) Acute gastritis with bleeding (K29.01) Active confirmed Problem Diverticular disease of colon (958728291) Diverticulosis of large intestine without perforation or abscess without bleeding (K57.30) Active confirmed Problem Iron deficiency anemia (82331594) Iron deficiency anemia (D50.9) Active confirmed Problem Hiatal hernia (18131495) Hiatal hernia (K44.9) Active confirmed Problem Chronic diarrhea (912302958) Chronic diarrhea (K52.9) Active confirmed Problem 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) Chronic gastritis with bleeding, unspecified gastritis type (K29.51) Active confirmed Problem Gastric ulcer (050031682) Gastric ulcer (K25.9) Active confirmed Problem Erosive gastritis (713404924019785 0) Gastritis, erosive (K29.60) Active confirmed Plan Of Treatment Future Test Test Name Order Date UPPER GI ENDOSCOPY 02/26/2014 COLONOSCOPY 02/26/2014 Insurance Providers Payer Name Payer Address Payer Phone Subscriber Number Group Number Insured Name Patient Relationship to Insured Coverage Start Date Coverage End Date MEDICARE OF [place] [address] [place] [id number] SRINIVASAN ALVARADO Self - patient is the insured [facility] [employer] [address] [place] [address] [id number] SRINIVASAN ALVARADO Self - patient is the insured Medical (General) History Medical History History ICD Code Denies ME,DM,CVA,Lung disease,renal dise ase Colonoscopy in 10/2001 with [...]
--- OUTSIDE RECORDS SUMMARY | 2025-02-16 07:34 | XMS_ITS | Encounter Summary ---
Author Organization [facility] Address [address] [place] [address] Care Team Providers Care Billboard Mechanic Name Role Phone Leonardo García MD Primary Care Provider Encounter Details Date Type Department Care Team (Late st Contact Info) Description 06/21/2024 Lab Requisition [facility] - Main Lab [address] [facility] [place] [address] Chris Barlow MD [address] [place] [address] Encounter for other general examination Social History [...] CBC auto differential (06/21/2024 7:13 AM EST) [facility] WBC 8.0 4.8 - 10.8 K/mcL LAB HEMETOLOGY METHOD 06/21/2024 10:55 AM [facility] RBC 3.50(L) 3.80 - 4.80 M/mcL LAB HEMETOLOGY METHOD 06/21/2024 10:55 AM [facility] Hemoglobin 10.5(L) 11.5 - 16.0 g/dL LAB HEMETOLOGY METHOD 06/21/2024 10:55 AM [facility] Hematocrit 30.6(L) 35.0 - 47.0 % LAB HEMETOLOGY METHOD 06/21/2024 10:55 AM [facility] MCV 88.7 79.0 - 98.0 FL LAB HEMETOLOGY METHOD 06/21/2024 10:55 AM [facility] MCH 30.4 27.0 - 32.0 pcg LAB HEMETOLOGY METHOD 06/21/2024 10:55 AM [facility] MCHC 34.3 32.0 - 37.0 g/dL LAB HEMETOLOGY METHOD 06/21/2024 10:55 AM [facility] RDW 13.4 11.0 - 15.0 % LAB HEMETOLOGY METHOD 06/21/2024 10:55 AM [facility] Platelets 257 130 - 400 K/mcL LAB HEMETOLOGY METHOD 06/21/2024 10:55 AM [facility] MPV 9.7 7.0 - 11.0 FL LAB HEMETOLOGY METHOD 06/21/2024 10:55 AM [facility] NRBC 0.0 <1.0 % LAB HEMETOLOGY METHOD 06/21/2024 10:55 AM [facility] NRBC Absolute 0.00 <0.10 K/mcL LAB HEMETOLOGY METHOD 06/21/2024 10:55 AM [facility] Neutrophils Relative 73.2 % LAB HEMETOLOGY METHOD 06/21/2024 10:55 AM [facility] Lymphocytes Relative 16.0 % LAB HEMETOLOGY METHOD 06/21/2024 10:55 AM [facility] Monocytes Relative 7.3 % LAB HEMETOLOGY METHOD 06/21/2024 10:55 AM [facility] Eosinophils Relative 2.3 % LAB HEMETOLOGY METHOD 06/21/2024 10:55 AM [facility] Basophils Relative 0.6 % LAB HEMETOLOGY METHOD 06/21/2024 10:55 AM [facility] Immature Granulocytes Relative 0.6 % LAB HEMETOLOGY METHOD 06/21/2024 10:55 AM [facility] Neutrophils Absolute 5.84 1.50 - 7.00 K/mcL LAB HEMETOLOGY METHOD 06/21/2024 10:55 AM [facility] Lymphocytes Absolute 1.28 1.00 - 5.00 K/mcL LAB HEMETOLOGY METHOD 06/21/2024 10:55 AM [facility] Monocytes Absolute 0.58 0.20 - 1.00 K/mcL LAB HEMETOLOGY METHOD 06/21/2024 10:55 AM [facility] Eosinophils Absolute 0.18 0.00 - 0.50 K/mcL LAB HEMETOLOGY METHOD 06/21/2024 10:55 AM [facility] Basophils Absolute 0.05 0.00 - 0.20 K/mcL LAB HEMETOLOGY METHOD 06/21/2024 10:55 AM [facility] Immature Granulocytes Absolute 0.05(H) 0.00 - 0.03 K/mcL LAB HEMETOLOGY METHOD 06/21/2024 10:55 AM EST [facility] Blood Venous blood specimen / Unknown Venipuncture / Unknown 06/21/2024 7:13 AM EST 06/21/2024 10:03 AM EST us Chris Barlow MD LAB BLOOD ORDERABLES Final Resu lt Performing Organization Address City/[facility]/ZIP Co de Phone Number [facility] [address] [place] [address], [place] [phone] * (ABNORMAL) Magnesium (06/21/2024 7:13 AM EST) Magnesium 1.7(L) 1.9 - 2.6 mg/dL LAB CHEMISTRY METHOD 06/21/2024 11:21 AM EST [facility] Blood Venous blood specimen / Unknown Venipuncture / Unknown 06/21/2024 7:13 AM EST 06/21/2024 10:03 AM EST us Chris Barlow MD LAB BLOOD ORDERABLES Final Resu lt Performing Organization Address [facility]/ZIP Co de Phone Number [facility] [address] [place] [address], [place] [phone] * (ABNORMAL) Comprehensive metabolic panel (06/21/2024 7:13 [...] mmol/L LAB CHEMISTRY METHOD 06/21/2024 11:50 AM [facility] Anion Gap 5 3 - 11 LAB CHEMISTRY METHOD 06/21/2024 11:50 AM [facility] Glucose 109(H) 70 - 100 mg/dL LAB CHEMISTRY METHOD 06/21/2024 11:50 AM [facility] BUN 8 5 - 25 mg/dL LAB CHEMISTRY METHOD 06/21/2024 11:50 AM [facility] Creatinine 0.62 0.50 - 1.10 mg/dL LAB CHEMISTRY METHOD 06/21/2024 11:50 AM [facility] eGFR 89 >=60 mL/min/1. 73m2 LAB CHEMISTRY METHOD 06/21/2024 11:50 AM [facility] Comment:Calculation based on the Chronic Kidney Disease Epidemiology Collaboration (CKD-EPI) equation refit without adjustment for race. BUN/Creatinine Ratio 12.9 LAB CHEMISTRY METHOD 06/21/2024 11:50 AM [facility] Calcium 8.4(L) 8.5 - 10.5 mg/dL LAB CHEMISTRY METHOD 06/21/2024 11:50 AM [facility] AST (SGOT) 71(H) 10 - 42 unit/L LAB CHEMISTRY METHOD 06/21/2024 11:50 AM [facility] ALT (SGPT) 46 10 - 60 unit/L LAB CHEMISTRY METHOD 06/21/2024 11:50 AM [facility] Alkaline Phosphatase 95 42 - 121 unit/L LAB CHEMISTRY METHOD 06/21/2024 11:50 AM [facility] Total Protein 5.6(L) 6.0 - 8.0 g/dL LAB CHEMISTRY METHOD 06/21/2024 11:50 AM [facility] Albumin 2.9(L) 3.2 - 5.0 g/dL LAB CHEMISTRY METHOD 06/21/2024 11:50 AM [facility] Total Bilirubin 0.7 0.0 - 1.4 mg/dL LAB CHEMISTRY METHOD 06/21/2024 11:50 AM EST [facility] Blood Venous blood specimen / Unknown Venipuncture / Unknown 06/21/2024 7:13 AM EST 06/21/2024 10:03 AM EST us Chris Barlow MD LAB BLOOD ORDERABLES Final Resu lt [facility] [address] [place] [address], documented in this encounter Visit Diagnoses Diagnosis Encounter for other general examination documented in this encounter Additional Health Concerns Infection Onset Date Last Indicated Resolved Time Respiratory Rule-Out 07/26/2024 07/26/2024 025 3:02 AM EST COVID-19 Rule-Out 07/26/2024 07/26/2024 07/26/2024 3:02 AM EST documented as of this encounter Care Teams Billboard Mechanic Relationship Specialty Start Date End Date Leonardo García MD [address] [place] [phone] PCP - General Internal Medicine 06/30/24 documented as of this encounter
--- OUTSIDE RECORDS SUMMARY | 2025-02-16 07:34 | XMS_ITS | Encounter Summary ---
Author Organization [facility] Address [address] [place] [address] Care Team Providers Care Offset Lithographic Press Setter Name Role Phone Leonardo García MD Primary Care Provider [phone] Encounter Details Date Type Department Care Team (Late st Contact Info) Description 07/07/2024 Lab Requisition [facility] - Main Lab [address] [facility] [place] [id number] Chris Barlow MD [address] [place] [address] Encounter for other general examination Social History [...] CBC auto differential (07/07/2024 6:34 AM EST) [facility] WBC 6.0 4.8 - 10.8 K/mcL LAB HEMETOLOGY METHOD 07/07/2024 10:40 AM [facility] RBC 3.20(L) 3.80 - 4.80 M/mcL LAB HEMETOLOGY METHOD 07/07/2024 10:40 AM [facility] Hemoglobin 10.1(L) 11.5 - 16.0 g/dL LAB HEMETOLOGY METHOD 07/07/2024 10:40 AM [facility] Hematocrit 30.7(L) 35.0 - 47.0 % LAB HEMETOLOGY METHOD 07/07/2024 10:40 AM [facility] MCV 94.8 79.0 - 98.0 FL LAB HEMETOLOGY METHOD 07/07/2024 10:40 AM [facility] MCH 31.2 27.0 - 32.0 pcg LAB HEMETOLOGY METHOD 07/07/2024 10:40 AM [facility] MCHC 32.9 32.0 - 37.0 g/dL LAB HEMETOLOGY METHOD 07/07/2024 10:40 AM [facility] RDW 14.2 11.0 - 15.0 % LAB HEMETOLOGY METHOD 07/07/2024 10:40 AM [facility] Platelets 415(H) 130 - 400 K/mcL LAB HEMETOLOGY METHOD 07/07/2024 10:40 AM [facility] MPV 9.2 7.0 - 11.0 FL LAB HEMETOLOGY METHOD 07/07/2024 10:40 AM [facility] NRBC 0.0 <1.0 % LAB HEMETOLOGY METHOD 07/07/2024 10:40 AM [facility] NRBC Absolute 0.00 <0.10 K/mcL LAB HEMETOLOGY METHOD 07/07/2024 10:40 AM [facility] Neutrophils Relative 57.2 % LAB HEMETOLOGY METHOD 07/07/2024 10:40 AM [facility] Lymphocytes Relative 25.4 % LAB HEMETOLOGY METHOD 07/07/2024 10:40 AM [facility] Monocytes Relative 12.5 % LAB HEMETOLOGY METHOD 07/07/2024 10:40 AM [facility] Eosinophils Relative 3.8 % LAB HEMETOLOGY METHOD 07/07/2024 10:40 AM [facility] Basophils Relative 0.8 % LAB HEMETOLOGY METHOD 07/07/2024 10:40 AM [facility] Immature Granulocytes Relative 0.3 % LAB HEMETOLOGY METHOD 07/07/2024 10:40 AM [facility] Neutrophils Absolute 3.42 1.50 - 7.00 K/mcL LAB HEMETOLOGY METHOD 07/07/2024 10:40 AM [facility] Lymphocytes Absolute 1.52 1.00 - 5.00 K/mcL LAB HEMETOLOGY METHOD 07/07/2024 10:40 AM [facility] Monocytes Absolute 0.75 0.20 - 1.00 K/mcL LAB HEMETOLOGY METHOD 07/07/2024 10:40 AM [facility] Eosinophils Absolute 0.23 0.00 - 0.50 K/mcL LAB HEMETOLOGY METHOD 07/07/2024 10:40 AM [facility] Basophils Absolute 0.05 0.00 - 0.20 K/mcL LAB HEMETOLOGY METHOD 07/07/2024 10:40 AM [facility] Immature Granulocytes Absolute 0.02 0.00 - 0.03 K/mcL LAB HEMETOLOGY METHOD 07/07/2024 10:40 AM EST [facility] Blood Venous blood specimen / Unknown Venipuncture / Unknown 07/07/2024 6:34 AM EST 07/07/2024 9:05 AM EST us Chris Barlow MD LAB BLOOD ORDERABLES Final Resu lt [facility] [address] [place] [address], [place] [phone] * Basic metabolic panel (07/07/2024 6:34 AM EST) Sodium 135 133 - 145 mmol/L LAB CHEMISTRY METHOD 07/07/2024 11:20 AM [facility] Potassium 4.2 3.5 - 5.5 mmol/L LAB CHEMISTRY METHOD 07/07/2024 11:20 AM [facility] Chloride 100 96 - 110 mmol/L LAB CHEMISTRY METHOD 07/07/2024 11:20 AM [facility] CO2 28 21 - 32 mmol/L LAB CHEMISTRY METHOD 07/07/2024 11:20 AM [facility] Anion Gap 7 3 - 11 LAB CHEMISTRY METHOD 07/07/2024 11:20 AM [facility] Glucose 92 70 - 100 mg/dL LAB CHEMISTRY METHOD 07/07/2024 11:20 AM [facility] BUN 19 5 - 25 mg/dL LAB CHEMISTRY METHOD 07/07/2024 11:20 AM [facility] Creatinine 0.70 0.50 - 1.10 mg/dL LAB CHEMISTRY METHOD 07/07/2024 11:20 AM [facility] eGFR 86 >=60 mL/min/1. 73m2 LAB CHEMISTRY METHOD 07/07/2024 11:20 AM [facility] Comment:Calculation based on the Chronic Kidney Disease Epidemiology Collaboration (CKD-EPI) equation refit without adjustment for race. BUN/Creatinine Ratio 27.1 LAB CHEMISTRY METHOD 07/07/2024 11:20 AM EST [facility] Calcium 9.0 8.5 - 10.5 mg/dL LAB CHEMISTRY METHOD 07/07/2024 11:20 AM EST [facility] Blood Venous blood specimen / Unknown Venipuncture / Unknown 07/07/2024 6:34 AM EST 07/07/2024 9:05 AM EST us Chris Barlow MD LAB BLOOD ORDERABLES Final Resu lt [facility] [address] [place] [address], documented in this encounter Visit Diagnoses Diagnosis Encounter for other general examination documented in this encounter Additional Health Concerns Infection Onset Date Last Indicated Resolved Time Respiratory Rule-Out 07/26/2024 07/26/2024 025 3:02 AM EST COVID-19 Rule-Out 07/26/2024 07/26/2024 07/26/2024 3:02 AM EST documented as of this encounter Care Teams Offset Lithographic Press Setter Relationship Specialty Start Date End Date Leonardo García MD [address] [place] [address] PCP - General Internal Medicine 06/30/24 documented as of this encounter
--- OUTSIDE RECORDS SUMMARY | 2025-02-16 07:34 | XMS_ITS | Encounter Summary ---
Author Organization [facility] Address [address] [place] [address] Care Team Providers Care Enrober Tender Name Role Phone Unavailable Primary Care Provider Unavailabl e Encounter Details Date Type Department Care Team (Late st Contact Info) Description 03/17/2020 Lab Requisition [facility] [address] [place] [address] Boo Milian PA-C [address] [place] [address] Encounter for laboratory testing for COVID-19 virus [...] SUKUMAR COVID-19 RT-PCR Assay is Real-Time Reverse Granulizing Machine Operator Polymerase Chain Reaction (installment account checker-PCR) for the in vitro qualitative detection of three SARS-Cov-2 target sequences unique to the coronavirus disease 2019 (COVID-19). This is an Emergency Use Authorization (EUA) in vitro diagnostic (IVD) test that has been modified to include the [employer] automated liquid handler. Its analytical performance characteristics have been determined by the vending machine technician and verified by [facility] in a manner consistent with CLIA [...] at the following links: For Healthcare Providers: https://www.fda.gov/media/362688/download For Patients: https://www.[place].gov/media/007557/download TEST LIMITATIONS Positive results are indicative of [...] system. For further details refer to the [employer] TaqPath COVID-19 Combo Kit EUA submission (https://www.[place].gov/media/515399/download). ----- Test performed by [facility], [address] [place] [address] CLIA# [id number] Antoine Shah M.D., Ph.D., [facility], Clinical Merchandise Adjustment Clerk Microbiology Nasopharyngeal swab / Unknown 03/17/2020 2:45 PM EDT 03/17/2020 2:45 PM EDT Narrative [facility] - 03/18/2020 5:59 PM EDT Performed at [facility], [address] [place] [address], [facility] 0695, CLIA [id number] Boo Milian PA-C MICROBIOLOGY - GENERAL OR DERABLES Final Result [facility] [address] [place] [address] documented in this encounter Visit Diagnoses Diagnosis Encounter for laboratory testing for COVID-19 virus documented in this encounter
--- OUTSIDE RECORDS SUMMARY | 2025-02-16 07:34 | XMS_ITS | Encounter Summary ---
Author Organization [facility] Address [address] [place] [address] Care Team Providers Care Insurance Service Representative Name Role Phone Leonardo García MD Primary Care Provider [phone] Encounter Details Date Type Department Care Team (Late st Contact Info) Description 06/22/2024 Lab Requisition [facility] - Main Lab [address] [facility] [email or web address] [address] Chris Barlow MD [address] [place] [address] Encounter for other general examination Social History [...] mmol/L LAB CHEMISTRY METHOD 06/22/2024 9:17 AM [facility] Potassium 3.4(L) 3.5 - 5.5 mmol/L LAB CHEMISTRY METHOD 06/22/2024 9:17 AM [facility] Chloride 101 96 - 110 mmol/L LAB CHEMISTRY METHOD 06/22/2024 9:17 AM [facility] CO2 28 21 - 32 mmol/L LAB CHEMISTRY METHOD 06/22/2024 9:17 AM [facility] Anion Gap 8 3 - 11 LAB CHEMISTRY METHOD 06/22/2024 9:17 AM [facility] Glucose 128(H) 70 - 100 mg/dL LAB CHEMISTRY METHOD 06/22/2024 9:17 AM [facility] BUN 14 5 - 25 mg/dL LAB CHEMISTRY METHOD 06/22/2024 9:17 AM [facility] Creatinine 0.60 0.50 - 1.10 mg/dL LAB CHEMISTRY METHOD 06/22/2024 9:17 AM [facility] eGFR 90 >=60 mL/min/1. 73m2 LAB CHEMISTRY METHOD 06/22/2024 9:17 AM [facility] Comment:Calculation based on the Chronic Kidney Disease Epidemiology Collaboration (CKD-EPI) equation refit without adjustment for race. BUN/Creatinine Ratio 23.3 LAB CHEMISTRY METHOD 06/22/2024 9:17 AM [facility] Calcium 8.3(L) 8.5 - 10.5 mg/dL LAB CHEMISTRY METHOD 06/22/2024 9:17 AM [facility] Blood Venous blood specimen / Unknown Venipuncture / Unknown 06/22/2024 6:05 AM EST 06/22/2024 8:27 AM EST us Chris Barlow MD LAB BLOOD ORDERABLES Final Resu lt [facility] [address] [place] [address], [place] [phone] documented in this encounter Visit Diagnoses Diagnosis Encounter for other general examination documented in this encounter Additional Health Concerns Infection Onset Date Last Indicated Resolved Time Respiratory Rule-Out 07/26/2024 07/26/2024 025 3:02 AM EST COVID-19 Rule-Out 07/26/2024 07/26/2024 07/26/2024 3:02 AM EST documented as of this encounter Care Teams Insurance Service Representative Relationship Specialty Start Date End Date Leonardo García MD [address] [place] [address] PCP - General Internal Medicine 06/30/24 documented as of this encounter
--- OUTSIDE RECORDS SUMMARY | 2025-02-16 07:34 | XMS_ITS ---
Author Name [facility] Organization Unknown Encounters Encounter Type Encounter Reason Primary Diagnosis Location Date Ambulatory [facility] 12/01/2022 Care Team Organization Name Specialty Phone Email Start Date End Da te [facility] RANI AGUILA Primary Care 05/04/2022 024
--- OUTSIDE RECORDS SUMMARY | 2025-02-16 07:34 | XMS_ITS | Clinical Summary ---
Author Organization [facility] Address [address] [place] [address] Care Team Providers Care Home Performance Consultant Name Role Phone Ashleigh Grullon MD Primary Care Provider [phone] Allergies Active Allergy Reactions Criticality Noted Date Comments Ampicillin Anaphylaxis High 08/15/2017 Chloramphenicol Anaphylaxis High 08/15/2017 [place] 08/30/2017 Tape Rash Medium 08/30/2017 Paper tape, [...] MORNING AND IN THE EVENING 0 Active Huntington-3 Fatty Acids (OMEGA-3 FISH OIL PO) Take [...] Immunizations Name Administration Dates Next Due Covid-19 (Comuto) Dilution Required 05/11/2021,0 08/04/2020,07/14/2020 Social History Tobacco [...] Tdap) 08/25/2018 08/24/2018 COVID-19 Vaccine ( season) 2025 05/11/2021, 08/04/2020, 07/14/2020 Influenza Vaccine (#1) 2025 , 02/19/2020, 02/02/2019, Additional history exists Hepatitis B Vaccines Aged Out No long er eligible based on patient's age to complete this topic RSV Ped < 20 months Aged Out No longe r eligible based on patient's age to complete this topic Medical Devices Implanted Type Area Terrazzo Tile Setter Device Identifier Shelf Expiration Date Model / Serial / Lot Screw 6.5 X 45.Mm - [id number] - [id number] Implanted:Qty : 1 on 08/30/2017 [place] [facility] [place] [facility] [place] Posterior: Spine Lumbar [employer] 1067.1645 / / 6.5 X 50mm Screw Modular Creo Amp - [id number] - [id number] Implanted:Qty : 3 on 08/30/2017 by [place]meka Lopez [place] [facility] [place] [facility] Posterior: Spine Lumbar [employer] 1067.1650 / / 5.5 Polyaxial Tulip Threaded Creo Amp - [id number] - [id number] Implanted:Qty : 4 on 08/30/2017 by Emeka Lopez [place] [facility] [place] [facility] Posterior: Spine Lumbar [employer] 1119.0110 / / 5.5 Threaded Locking Cap Creo - [id number] - [id number] Implanted:Qty : 4 on 08/30/2017 by Emeka Lopez [place] [facility] [place] [facility] Posterior: Spine Lumbar [employer] 1119.0010 / / 5.5mm Curved Gurpreet Titanium Alloy 40mm Length - [id number] - [id number] Implanted:Qty : 2 on 08/30/2017 by Emeka Lopez [place] [facility] [place] [facility] Posterior: Spine Lumbar [employer] 1119.7040 / / Lp Hex Screw 6.5x20mm Stry-Howm 5941-7461-516 457 - [id number] Implanted:Qty : 1 on 02/16/2022 by Ottoniel Wells [place] [facility] [place] [facility] Left: Hip [facility] [id number] 11/23/2026 1386-7751 / / [id number] Hip Insrt X3 Trident 0d 36mm E Stry-How 148-50-65a-20 0921 - [id number] Implanted:Qty : 1 on 02/16/2022 by Ottoniel Wells [place] [facility] [place] [facility] Left: Hip [facility] [id number] 09/24/2025 623-10-36 E / / [id number] Hip Stm Parveen 127 #2 30 124 Stry-How 4902-7670t-44 7932 - [id number] Implanted:Qty : 1 on 02/16/2022 by Ottoniel Wells [place] [facility] [place] [facility] Left: Hip [facility] [id number] 10/21/2026 5976-3701 D / / [id number] Plug Bone Sm Stry-How 9223-3-873-14 3871 - [id number] Implanted:Qty : 1 on 02/16/2022 by Ottoniel Wells [place] [facility] [place] [facility] [place] Left: Hip [facility] [id number] 11/16/2026 6215-5-00 1 / / [id number] Hip Dist Spacer Ostnc Univ #8 Stry-Howm 1281-4772-935 590 - [id number] Implanted:Qty : 1 on 02/16/2022 by Ottoniel Wells [place] [facility] [place] [facility] Left: Hip [facility] [id number] 01/19/2027 5086-5737 / / [id number] Hip Head Delta Biolox 36mm-2.5 Stry-Howm 3377-4-701-54 9191 - [id number] Implanted:Qty : 1 on 02/16/2022 by Ottoniel Wells [place] [facility] [place] [facility] Left: Hip [facility] [id number] 11/10/2026 6570-0-43 6 / / [id number] Cement Bone Surg Simplex Radiopq Stry-Howm 7221-0-799-11 4092 - [id number] Implanted:Qty : 1 on 02/16/2022 by Ottoniel Wells [place] [facility] [place] [facility] Left: Hip [facility] [id number] 05/03/2023 6190-06-04 0 / / [id number] Cement Bone Surg Simplex Radiopq Stry-Howm 8689-7-761-11 4092 - [id number] Implanted:Qty : 1 on 02/16/2022 by Ottoniel Wells [place] [facility] [place] [facility] Left: Hip [facility] [id number] 05/03/2023 6190-06-04 0 / / [id number] Lp Hex Screw 6.5x30mm Stry-Howm 6765-2122-859 478 - [id number] Implanted:Qty : 1 on 02/16/2022 by Ottoniel Wells [place] [facility] Left: Hip [facility] [id number] 12/15/2026 0758-4264 / / [id number] Tritanium Cluster Hole Shell 52mm Stry-Howm 312-68-05y-77 0473 - [id number] Implanted:Qty : 1 on 02/16/2022 by Ottoniel Wells [place] [facility] [place] [facility] Left: Hip [facility] [id number] 09/28/2026 702-04-52 E / / [id number] Advance Directives For more information, please contact: [phone] Documents on File Type Date Recorded Patient Hammerer Helper Expl anation Advance Directive and Living Will [...] way: discussion with patient . Care Teams Home Performance Consultant Relationship Specialty Start Date End Date Ashleigh Grullon MD [address] [place] [address] PCP - General Camera Person 01/02/22
--- OUTSIDE RECORDS SUMMARY | 2025-02-16 07:34 | XMS_ITS | Encounter Summary ---
Author Organization [facility] Address [address] [place] [address] Care Team Providers Care Field Marketing Associate Name Role Phone Leonardo García MD Primary Care Provider [phone] Encounter Details Date Type Department Care Team (Late st Contact Info) Description 06/29/2024 Lab Requisition [facility] - Main Lab [address] [facility] [place] [address] Chris Barlow MD [address] [place] [address] Encounter for other general examination Social History [...] CBC auto differential (06/29/2024 5:48 AM EST) [facility] Signature WBC 9.9 4.8 - 10.8 K/mcL LAB HEMETOLOGY METHOD 06/29/2024 10:26 AM [facility] RBC 3.60(L) 3.80 - 4.80 M/mcL LAB HEMETOLOGY METHOD 06/29/2024 10:26 AM [facility] Hemoglobin 11.2(L) 11.5 - 16.0 g/dL LAB HEMETOLOGY METHOD 06/29/2024 10:26 AM [facility] Hematocrit 33.3(L) 35.0 - 47.0 % LAB HEMETOLOGY METHOD 06/29/2024 10:26 AM [facility] MCV 93.0 79.0 - 98.0 FL LAB HEMETOLOGY METHOD 06/29/2024 10:26 AM [facility] MCH 31.3 27.0 - 32.0 pcg LAB HEMETOLOGY METHOD 06/29/2024 10:26 AM [facility] MCHC 33.6 32.0 - 37.0 g/dL LAB HEMETOLOGY METHOD 06/29/2024 10:26 AM [facility] RDW 13.8 11.0 - 15.0 % LAB HEMETOLOGY METHOD 06/29/2024 10:26 AM [facility] Platelets 373 130 - 400 K/mcL LAB HEMETOLOGY METHOD 06/29/2024 10:26 AM [facility] MPV 9.4 7.0 - 11.0 FL LAB HEMETOLOGY METHOD 06/29/2024 10:26 AM [facility] NRBC 0.0 <1.0 % LAB HEMETOLOGY METHOD 06/29/2024 10:26 AM [facility] NRBC Absolute 0.00 <0.10 K/mcL LAB HEMETOLOGY METHOD 06/29/2024 10:26 AM [facility] Neutrophils Relative 64.0 % LAB HEMETOLOGY METHOD 06/29/2024 10:26 AM [facility] Lymphocytes Relative 25.2 % LAB HEMETOLOGY METHOD 06/29/2024 10:26 AM [facility] Monocytes Relative 7.8 % LAB HEMETOLOGY METHOD 06/29/2024 10:26 AM [facility] Eosinophils Relative 2.0 % LAB HEMETOLOGY METHOD 06/29/2024 10:26 AM [facility] Basophils Relative 0.4 % LAB HEMETOLOGY METHOD 06/29/2024 10:26 AM [facility] Immature Granulocytes Relative 0.6 % LAB HEMETOLOGY METHOD 06/29/2024 10:26 AM [facility] Neutrophils Absolute 6.31 1.50 - 7.00 K/mcL LAB HEMETOLOGY METHOD 06/29/2024 10:26 AM [facility] Lymphocytes Absolute 2.49 1.00 - 5.00 K/mcL LAB HEMETOLOGY METHOD 06/29/2024 10:26 AM [facility] Monocytes Absolute 0.77 0.20 - 1.00 K/mcL LAB HEMETOLOGY METHOD 06/29/2024 10:26 AM [facility] Eosinophils Absolute 0.20 0.00 - 0.50 K/mcL LAB HEMETOLOGY METHOD 06/29/2024 10:26 AM [facility] Basophils Absolute 0.04 0.00 - 0.20 K/mcL LAB HEMETOLOGY METHOD 06/29/2024 10:26 AM [facility] Immature Granulocytes Absolute 0.06(H) 0.00 - 0.03 K/mcL LAB HEMETOLOGY METHOD 06/29/2024 10:26 AM EST [facility] Blood Venous blood specimen / Unknown Venipuncture / Unknown 06/29/2024 5:48 AM EST 06/29/2024 8:27 AM EST Chris Barlow MD LAB BLOOD ORDERABLES Final Resu lt Performing Organization Address City/Va Hospital/ZIP Co de Phone Number [facility] [address] [place] [address], [place] [phone] * Magnesium (06/29/2024 5:48 AM EST) [facility] Magnesium 2.2 1.9 - 2.6 mg/dL LAB CHEMISTRY METHOD 06/29/2024 10:10 AM EST [facility] Blood Venous blood specimen / Unknown Venipuncture / Unknown 06/29/2024 5:48 AM EST 06/29/2024 8:27 AM EST us Chris Barlow MD LAB BLOOD ORDERABLES Final Resu lt Performing Organization Address [facility]/Va Hospital/ZIP Co de Phone Number [facility] [address] [place] [address], [place] [phone] * (ABNORMAL) Comprehensive metabolic panel (06/29/2024 5:48 AM EST) [facility] Sodium 134 133 - 145 mmol/L LAB CHEMISTRY METHOD 06/29/2024 10:10 AM EST [facility] Potassium 3.7 3.5 - 5.5 mmol/L LAB CHEMISTRY METHOD 06/29/2024 10:10 AM EST [facility] Chloride 100 96 - 110 mmol/L LAB CHEMISTRY METHOD 06/29/2024 10:10 AM EST [facility] CO2 29 21 - 32 mmol/L LAB CHEMISTRY METHOD 06/29/2024 10:10 AM EST [facility] Anion Gap 5 3 - 11 LAB CHEMISTRY METHOD 06/29/2024 10:10 AM [facility] Glucose 86 70 - 100 mg/dL LAB CHEMISTRY METHOD 06/29/2024 10:10 AM [facility] BUN 18 5 - 25 mg/dL LAB CHEMISTRY METHOD 06/29/2024 10:10 AM [facility] Creatinine 0.66 0.50 - 1.10 mg/dL LAB CHEMISTRY METHOD 06/29/2024 10:10 AM [facility] eGFR 88 >=60 mL/min/1. 73m2 LAB CHEMISTRY METHOD 06/29/2024 10:10 AM [facility] Comment:Calculation based on the Chronic Kidney Disease Epidemiology Collaboration (CKD-EPI) equation refit without adjustment for race. BUN/Creatinine Ratio 27.3 LAB CHEMISTRY METHOD 06/29/2024 10:10 AM [facility] Calcium 8.9 8.5 - 10.5 mg/dL LAB CHEMISTRY METHOD 06/29/2024 10:10 AM [facility] AST (SGOT) 36 10 - 42 unit/L LAB CHEMISTRY METHOD 06/29/2024 10:10 AM [facility] ALT (SGPT) 69(H) 10 - 60 unit/L LAB CHEMISTRY METHOD 06/29/2024 10:10 AM [facility] Alkaline Phosphatase 141(H) 42 - 121 unit/L LAB CHEMISTRY METHOD 06/29/2024 10:10 AM [facility] Total Protein 5.9(L) 6.0 - 8.0 g/dL LAB CHEMISTRY METHOD 06/29/2024 10:10 AM [facility] Albumin 3.2 3.2 - 5.0 g/dL LAB CHEMISTRY METHOD 06/29/2024 10:10 AM [facility] Total Bilirubin 0.8 0.0 - 1.4 mg/dL LAB CHEMISTRY METHOD 06/29/2024 10:10 AM EST [facility] Blood Venous blood specimen / Unknown Venipuncture / Unknown 06/29/2024 5:48 AM EST 06/29/2024 8:27 AM EST us Chris Barlow MD LAB BLOOD ORDERABLES Final Resu lt [facility] [address] [place] [address], documented in this encounter Visit Diagnoses Diagnosis Encounter for other general examination documented in this encounter Additional Health Concerns Infection Onset Date Last Indicated Resolved Time Respiratory Rule-Out 07/26/2024 07/26/2024 025 3:02 AM EST COVID-19 Rule-Out 07/26/2024 07/26/2024 07/26/2024 3:02 AM EST documented as of this encounter Care Teams Field Marketing Associate Relationship Specialty Start Date End Date Leonardo García MD [address] [place] [address] PCP - General Internal Medicine 06/30/24 documented as of this encounter
--- OUTSIDE RECORDS SUMMARY | 2025-02-16 07:34 | XMS_ITS | Clinical Summary ---
Author Organization [address] Address [address] [place] [phone] Phone Care Team Providers Care Book Editor Name Role Phone Leonardo García MD Primary Care Provider [phone] Allergies No known active allergies Medications aspirin [...] ollowing cerebral infarction affecting left dominant side ([facility] V24, [facility] V28) 07/18/2024 Gastro-esophageal reflux disease without esophag itis 07/18/2024 Adult failure to thrive 07/18/2024 Rosacea 09/07/2021 Insomnia 11/01/2018 Essential hypertension 04/30/2018 Surgical History Surgery Date Site/Laterality Comments APPENDECTOMY PROCEDURE:APPENDECTOMY CATARACT EXTRACTION W/ INTRAOCULAR LENS IMPLANT PROCEDURE:CATARACT EXTRACTION W/ INTRAOCULAR LENS IMPLANT TONSILLECTOMY PROCEDURE:TONSILLECTOMY DENTAL SURGERY PROCEDURE:DENTAL SURGERY;COMMENT:wisdom teeth ROTATOR CUFF REPAIR 2013 Right PROCEDURE:ROTATOR CUFF REPAIR BACK SURGERY PROCEDURE:BACK SURGERY LUMBAR LAMINECTOMY 08/30/2017 Bilateral Posterior PROCEDURE:LUMBAR LAMINECTOMY;COMMENT:Proced ure: L4, L5 LAMINECTOMY DECOMPRESSION; Surgeon: Emeka Lopez MD; Location: [facility]; Service: Spine; Laterality: Bilateral Posterior; LUMBAR FUSION 08/30/2017 Bilateral Posterior PROCEDURE:LUMBAR FUSION;COMMENT:Procedure: L4 - 5 FUSION SPINE LUMBAR POSTERIOR, INSTRUMENTED ARTHRODESIS; Surgeon: Emeka Lopez MD; Location: [facility]; Service: Spine; Laterality: Bilateral Posterior; AUTOGRAFT/SPINE SURGERY 08/30/2017 Left PROCEDURE:AUTOGRAFT/SPINE SURGERY;COMMENT:Procedure: AUTOGRAFT BONE SPINE; Surgeon: Emeka Lopez MD; Location: [facility]; Service: Spine; Laterality: Left; TOTAL KNEE ARTHROPLASTY 01/03/2021 Left PROCEDURE:TOTAL KNEE ARTHROPLASTY TOTAL HIP ARTHROPLASTY 02/16/2022 Left PROCEDURE:TOTAL HIP ARTHROPLASTY;COMMENT:Proce dure: REPLACEMENT TOTAL HIP; Surgeon: Ottoniel Wells MD; Location: [facility] Service: Orthopedics; Laterality: Left; Medical History Medical History Date Comments Bronchitis, chronic ([facility] V24, [facility] V28) DX:Bronchitis, chronic ([facility]);COMMENT:May 2017 GERD (gastroesophageal reflux disease) DX:GERD (gastroesophageal [...] 69 07/27/2024 7:45 AM EST Temperature 36.5 C (97.7 F) 07/27/2024 7:45 AM EST Respiratory Rate 14 07/27/2024 7:45 AM EST Oxygen Saturation 92% 07/27/2024 7:45 AM EST Inhaled Oxygen Concentration - - Weight 74.8 kg (165 lb) 07/25/2024 11:27 AM EST Height 162.6 cm (5' 4 ) 07/25/2024 11:27 AM EST Body Mass Index 28.32 07/25/2024 11:27 AM EST Plan of Treatment Health Maintenance Due Date Last Done Comments Pneumococcal Vaccine: 50+ Years (1 of 1 - PCV) 1992 Zoster Vaccines (1 of 2) 1992 RSV Immunization Adult Patients (1 - 1-dose 75+ series) 2017 Cholesterol Screening (Lipid Panel) 05/06/2022 Medicare Annual Wellness Visit 05/06/2022 Osteoporosis Screening (Bone Density Screening) 05/06/2022 Social Influencers of Health Screening 05/06/2022 Depression Screening 06/04/2024 COVID-19 Vaccine ( season) 2025 03/04/2024, 07/06/2022, 05/11/2021, Additional history exists Influenza Vaccine (#1) 2025 , 07/18/2023, 07/06/2022, Additional history exists Falls Risk Assessment 07/27/2025 07/27/2024 Hypertension/CHF/CAD Annual BMP Blood Test 07/27/2025 07/27/2024, 07/26/2024, 07/26/2024, Additional history exists DTaP,Tdap,and Td Vaccines (2 - Td or Tdap) 08/24/2028 08/24/2018 HIB Vaccines Aged Out No longer eligi [...] this topic Medical Devices Implanted Type Area Microsoft Architect Device Identifier Shelf Expiration Date Model / Serial / Lot Cement Bone Surg Simplex Radiopq [facility]-How [id number] Implanted:Qty: 1 on 02/16/2022 by Ottoniel Wells MD Left: Hip [employer] [id number] 05/03/2023 6191-1-010 / / [id number] Hip Head Delta Biolox 36mm-2.5 [facility] [id number] Implanted:Qty: 1 on 02/16/2022 by Ottoniel Wells MD Left: Hip [employer] [id number] 11/10/2026 6570-0-436 / / [id number] Cement Bone Surg Simplex Radiopq St[employer]How[employer] [id number] 092 Implanted:Qty: 1 on 02/16/2022 by Ottoniel Wells MD Left: Hip [employer] [id number] 05/03/2023 6191-1-010 / / [id number] Lp Hex Screw 6.5x30mm Stry-Howm [id number] 78 Implanted:Qty: 1 on 02/16/2022 by Ottoniel Wells MD Left: Hip [employer] [id number] 12/15/2026 3813-1831 / / [id number] Tritanium Cluster Hole Shell 52mm Stry-How[employer] [id number] Implanted:Qty: 1 on 02/16/2022 by Ottoniel Wells MD Left: Hip [employer] [id number] 09/28/2026 702-04-52E / / [id number] Lp Hex Screw 6.5x20mm Stry-How[employer] [id number] 57 Implanted:Qty: 1 on 02/16/2022 by Ottoniel Wells MD Left: Hip [employer] [id number] 11/23/2026 1329-8137 / / [id number] Hip Insrt X3 Trident 0d 36mm E Stry-Howm [id number] 921 Implanted:Qty: 1 on 02/16/2022 by Ottoniel Wells MD Left: Hip [employer] [id number] 09/24/2025 623-10-36E / / [id number] Hip Stm Parveen 127 #2 30 124 Stry-Howm [id number] 932 Implanted:Qty: 1 on 02/16/2022 by Ottoniel Wells MD Left: Hip [employer] [id number] 10/21/2026 6057-0230D / / [id number] Plug Bone Sm Stry-Howm [id number] 871 Implanted:Qty: 1 on 02/16/2022 by Ottoniel Wells MD Left: Hip [employer] [id number] 11/16/2026 6215-5-001 / / [id number] Hip Dist Spacer [facility] [id number] 90 Implanted:Qty: 1 on 02/16/2022 by Ottoniel Wells MD Left: Hip [employer] [id number] 01/19/2027 6982-7299 / / [id number] Procedures Procedure Name Priority Date/Time Associated Diagnosis Comments BASIC METABOLIC PANEL Routine 07/27/2024 6:22 AM EST from Last 3 Months or Most Recently Relevant to Health Maintenance Results * (ABNORMAL) Basic metabolic panel (07/27/2024 6:22 [...] LAB CHEMISTRY METHOD 07/27/2024 7:47 AM EST [facility] Comment:Calculation based on the Chronic Kidney Disease Epidemiology Collaboration (CKD-EPI) equation refit without adjustment for race. BUN/Creatinine Ratio 20.4 LAB CHEMISTRY METHOD 07/27/2024 7:47 AM EST [facility] Calcium 9.4 8.5 - 10.5 mg/dL LAB CHEMISTRY METHOD 07/27/2024 7:47 AM EST [facility] Blood Venous blood specimen / Unknown Venipuncture / Unknown 07/27/2024 6:22 AM EST 07/27/2024 7:10 AM EST Jeannie FORMAN LAB BLOOD ORDERABLES Final Result [facility] [address] [place] [address], from Last 3 Months or Most Recently Relevant to Health Maintenance Insurance MEDICARE [facility] Advance Directives Documents on File Type Date Recorded 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 Care Teams Book Editor Relationship Specialty Start Date End Date Leonardo García MD [address] [place] [id number] PCP - General Internal Medicine 06/30/24
[2025-02-16 07:50] LABS: MANUAL DIFF FLAG NO
[2025-02-16 08:30] LABS: Hematocrit 38.8 % (37.0-47.0); Hemoglobin 13.1 g/dl (12.0-16.0); Imm Gran Abs Auto 0.01 X10*3/uL (0.00-0.03); Imm Gran Pct Auto 0.2 % (0.0-0.4); Lymphocytes Absolute Auto 2.2 X10*3/uL (1.2-4.9); Mean Corpuscular HGB Conc 33.8 g/dl (31.0-35.0); Mean Corpuscular Hemoglobin 28.4 pg (27.0-33.0); Mean Corpuscular Volume 84.0 fL (80.0-98.0); NRBC Abs Auto 0.000 X10*3/uL (0.0-0.012); NRBC Pct Auto 0.0 /100WBC (0.0-0.2); Platelet Count 280 X10*3/uL (160-400); Red Blood Count 4.62 X10*6/uL (4.20-5.50); White Blood Count 5.5 X10*3/uL (4.8-10.8)
[2025-02-16 08:40] LABS: Hemoglobin A1C 139.9790 umol/L; Total Hemoglobin (HGBA1C) 3357.5472 umol/L
[2025-02-16 08:55] LABS: Alanine Aminotransferase 20 U/L (0-31); Albumin Level 4.7 g/dL (3.5-5.0); Alkaline Phosphatase 117 U/L (39-117); Anion Gap 12 (12-20); Aspartate Amino Transferase 25 U/L (5-31); Blood Urea Nitrogen 20 mg/dL (9-16); Calcium 9.7 mg/dL (8.4-10.2); Carbon Dioxide 28 mmol/L (22-29); Chloride 105 mmol/L (96-108); Estimated Glomerular Filt Rate > 60; Iron 97 mcg/dL (30-160); Percent Iron Saturation 25 % (15-50); Potassium 3.9 mmol/L (3.3-5.1); Sodium 141 mmol/L (135-145); Total Iron Binding Capacity 381 mcg/dL (228-428); Total Protein 7.4 g/dL (6.5-8.0); Unsaturated Iron Binding 284 ug/dL
[2025-02-16 09:20] LABS: Folate 11.1 ng/mL (> or = 4.0); Vitamin B12 294 pg/mL (200-900)
== END 2025-02-16 07:32 | disposition home or self-care (01) ==
LOC: HO.LAB 07:31
PROVIDERS: PCP Internal Medicine; Visit Provider Internal Medicine
DX: I10 Essential (primary) hypertension (principal); R73.9 Hyperglycemia, unspecified; E55.9 Vitamin D deficiency, unspecified; D64.9 Anemia, unspecified
CPT/HCPCS: 36415; 80053; 82306; 82607; 82746; 83036; 83540; 85025

== ENCOUNTER 2025-02-18 09:28 | Outpatient (AMB) | payer MEDICARE, SELFPAY ==
--- NOTE | 2025-02-18 09:34 | A.OFFPC_ITS ---
Intake Visit Reasons: AWV Allergies ampicillin (AMPICILLIN) Allergy (Severe, Verified 01/22/25 09:09) swelling in face/itchy throat tetracycline (TETRACYCLINE) Allergy (Severe, Verified 01/22/25 09:09) itchy throat/swelling in face Tobacco use date assessed: 12/04/24 Dental Screening Dental Screen Date: 08/28/24 [facility] Medical History (Updated 01/22/25 @ 10:08 by Kelly Vazquez MD) Cognitive disorder Hypersomnia Snoring Dementia Memory loss Lumbar stenosis Scoliosis (and kyphoscoliosis), idiopathic Cerebral infarction Hyperlipidemia Uses roller walker Arthritis Back pain GERD (gastroesophageal reflux disease) Numbness Seasonal allergies [place] (hard of hearing) GI bleed due to NSAIDs Osteoarthritis Elevated cholesterol Hyperglycemia HTN (hypertension) Vertigo Gastritis Scoliosis (and kyphoscoliosis), idiopathic Anemia Surgical History S/P lumbar fusion Hx of spinal surgery (07/18/23) Hx of tonsillectomy History of total left knee replacement History of esophagogastroduodenoscopy (EGD) H/O colonoscopy History of lumbar laminectomy History of total left hip arthroplasty History of appendectomy H/O cataract removal with insertion of prosthetic lens Family History Father No problems noted. Mother Breast cancer Social History Household Members: Family Household Members Other:: sister [facility] Are you a primary career coach to a significant other at home: No Do you presently have visiting nurse or other home services: No Patient Tobacco Use Status: Former Tobacco user Tobacco use type: Cigarette e-Cigarette/Vaping Use: Never Used Substance Use Type: Other Advance Directives Date on File: 10/16/22 service: No Current occupational status: retired Cognitive needs: No Hearing needs: Yes Vision needs: No Questionnaire Thrive Questionnaire Date Thrive assessed: 08/28/24 I am a: Patient What is your living situation today?: I have a steady place to live Within the past 12 months, did the food you bought not last and you didn't have the money to get more?: Never true Within the past 12 months, did you worry whether your food would run out before you got money to buy more?: Never true Do you have trouble paying for medicines?: No Do you have trouble getting transportation to medical appointments?: No Do you have trouble paying your heating and electricity bill?: No Do you have trouble taking care of your child, family member or friend?: No Do you have trouble with day-to-day activities such as bathing, preparing meals, shopping, managing finances, etc.?: No Are you currently unemployed and looking for a job?: No Are you interested in more education?: No Please select the resources that you would like help with: Care for elder or disabled Currently or been in a relationship where the following occur: I choose not to answer THRIVE Score: 0 NAILA-7 AMB Questionnaire NAILA-7 Date NAILA - 7 assessed: 08/28/24 Source: Developed by Drs. Mukesh Rice, Sravani Ramirez, Martin Padgett and colleagues, with an educational faisal from [employer]. Physical exam (Primary Care) Tobacco/Smoking Status: Tobacco use Status Tobacco use date assessed 12/04/24 12/04/24 09:58 Patient Tobacco Use Status Former Tobacco user 12/04/24 09:43 Tobacco use type Cigarette 12/04/24 09:43 e-Cigarette/Vaping Use Never Used 12/04/24 09:43 Thrive Assessment: Date of Thrive Assessment Date Thrive assessed 08/28/24 12/04/24 09:43 Currently or been in a relationship where the following occur: I choose not to answer Coding
[2025-02-18 09:35] VITALS: BP 132/84; PULSE 80; RESP 18; TEMP 36.4; O2SAT 99; BMI 28.0
--- NOTE | 2025-02-18 09:35 | A.OFFVIS_ITS ---
Intake Vital Signs 02/18/25 09:35 Height 5 ft 5 in Weight 168 lb BMI 28.0 BP 132/84 Blood Pressure Location Lt brachial Position Sitting Respiration 18 Pulse 80 Pulse Source Pulse Oximeter Temp 97.5 F Temp Source Oral Pulse Oximetry (%) 99 Oxygen Delivery Method Room Air Intake Visit Reasons: AWV Intake Note: Pt is here today for AWV. Allergies ampicillin (AMPICILLIN) Allergy (Severe, Verified 02/18/25 09:54) swelling in face/itchy throat tetracycline (TETRACYCLINE) Allergy (Severe, Verified 02/18/25 09:54) itchy throat/swelling in face citalopram Adverse Reaction (Verified 02/18/25 10:18) vertigo Medication List - Last Reconciled 02/18/25 by Ashleigh Grullon MD amlodipine 2.5 mg PO DAILY aspirin 81 mg PO DAILY atorvastatin 40 mg PO DAILY back brace LSO brace with thoracic extension CPT 10: M41.80 CHRISTOPHER: 99 cholecalciferol (vitamin D3) 50 mcg PO DAILY loratadine (Claritin) 10 mg PO DAILY omeprazole 40 mg PO DAILY spironolactone 25 mg PO DAILY HPI AWV HPI Details Initiated the conversation about Advanced Directives. Advanced Directives help? patients prepare for current and future decisions about their medical treatment? and place of care. Discussed with patient that it is a process where a patients? current condition and prognosis are reviewed, their wishes for information? regarding their illness are elicited, and likely medical dilemmas are presented? and options discussed. The form can be amended as needed, reviewed yearly and? make changes as needed IPPE/AWV ? year old presents? for her ? Annual? Wellness Visit, initial visit.? Medical / Social History Reviewed? Past Medical History ?Yes? . ? [place]? of Care / Care Team list updated ?Yes . ? Surgical/Hospitalization? History ?Yes . ? Current Medications? (including OTC and supplements) ?Yes . ? Family History ?Yes? . ? Tobacco? Control form ?Yes . ? AUDIT-C (Alcohol use) form? ?Yes . ? Illicit drug use in Social? History ?Yes . ? Current diagnosis of? depression? ?No ? Appropriate PHQ2/PHQ9? completed ?Yes . ? Data entered by ?Medical? Manager Forensic and reviewed by provider ? Fall Risk ? Fall? History? Have you had any falls with? injury in the past year? ?No . ? Have you had two or more? falls in the past year? ?No . ? Fall Risk Assessment: ?No? falls in the past year . ? HRA filled out by? the patient, reviewed by Provider and scanned. ? IPPE/AWV ? Balance? [place]? ?Yes . ? Tandem? walk ?Yes . ? Walk and? Turn ?Yes . ? Rise from? sit to stand ?Yes . ?Vision? Corrective? lens ?Yes ? Vision? screen ? Up-to-date, has an appointment [] for vision? screening and glaucoma screening ?Hearing? Whisper? test ?pass .? Initiated the conversation about Advanced Directives. Advanced Directives help? patients prepare for current and future decisions about their medical treatment? and place of care. Discussed with patient that it is a process where a patients? current condition and prognosis are reviewed, their wishes for information? regarding their illness are elicited, and likely medical dilemmas are presented? and options discussed. The form can be amended as needed, reviewed yearly and? make changes as needed Written? Plan?Completed. See Patient? Documents. [facility] Medical History (Updated 02/18/25 @ 10:35 by Ashleigh Grullon MD) Hyperlipidemia Hypersomnia Snoring Dementia Memory loss Lumbar stenosis Scoliosis (and kyphoscoliosis), idiopathic Cerebral infarction Uses roller walker Arthritis Back pain GERD (gastroesophageal reflux disease) Numbness Seasonal allergies [place] (hard of hearing) GI bleed due to NSAIDs Osteoarthritis Elevated cholesterol Hyperglycemia HTN (hypertension) Vertigo Gastritis Scoliosis (and kyphoscoliosis), idiopathic Anemia Surgical History S/P lumbar fusion Hx of spinal surgery (07/18/23) Hx of tonsillectomy History of total left knee replacement History of esophagogastroduodenoscopy (EGD) H/O colonoscopy History of lumbar laminectomy History of total left hip arthroplasty History of appendectomy H/O cataract removal with insertion of prosthetic lens Family History Father No problems noted. Mother Breast cancer Social History Household Members: Family Household Members Other:: sister [facility] Are you a primary critical care unit manager to a significant other at home: No Do you presently have visiting nurse or other home services: No Patient Tobacco Use Status: Former Tobacco user Tobacco use type: Cigarette e-Cigarette/Vaping Use: Never Used Substance Use Type: Other Advance Directives Date on File: 10/16/22 service: No Current occupational status: retired Cognitive needs: No Hearing needs: Yes Vision needs: No Questionnaire Medicare Wellness Checkup What is your age?: 80 or older What gender do you identify with?: female During the past 4 weeks, how much have you been bothered by emotional problems such as feeling anxious, depressed, irritable, sad or downhearted, and blue?: not at all During the past 4 weeks, has your physical & emotional health limited your social activities with family, friends, neighbors, or groups?: not at all During the past 4 weeks, how much bodily pain have you generally had?: moderate pain During the past 4 weeks, was someone available to help you if you needed & wanted help?: yes, as much as I wanted During the past 4 weeks, what was the hardest physical activity you could do for at least 2 minutes?: very light Can you get to places out of walking distance without help? (For eg., can you travel alone on buses, taxis or drive your car?): No Can you go shopping for groceries or clothes without someone's help?: No Can you prepare your own meals?: No Can you do your housework without help?: No Because of any health problems, do you need the help of another person with your personal care needs such as eating, bathing, dressing or getting around the house?: No Can you handle your own money without help?: No During the past 4 weeks, how would you rate your health in general?: fair During the past 4 weeks how have things been going for you?: pretty well Are you having difficulties driving your car?: not applicable, I don't use a car Do you always fasten your seat belt when you are in a car?: yes, usually During past 4 weeks, have you been bothered by the following: never: Falling or dizzy when standing up, Sexual problems?, Trouble eating well?, Teeth or denture problems?, Problems using the telephone? and Tiredness or fatigue? Have you fallen 2 or more times in the past year?: No Are you afraid of falling?: Yes Are you a smoker?: no During the past 4 weeks, how many drinks of wine, beer, or other alcoholic beverages did you have?: no alcohol at all Do you exercise for about 20 minutes 3 or more times a week?: yes, some of the time Have you been given information to help with the following?: yes: Hazards in your house that might hurt you? and yes: Keeping track of your medications? How often do you have trouble taking medicines the way you have been told to take them?: I always take medicine as prescribed How confident are you that you can control & manage most of your health problems?: very confident What is your race?: White Mini Mental State Exam (MMSE) Orientation What is the (year) (season) (date) (day) (month)?: year, season, date and month Where are we (state) (county) (town or city) (hospital) (floor)?: state, county, town or city and hospital/clinic Registration Name of 3 unrelated objects clearly and slowly, then ask patient to repeat all 3 of them. (1st repeat determines score. Make sure they can repeat all three): object 1 and object 2 Attention & Calculation (CHOOSE ONE) Spell WORLD backwards (DLROW): 4 letters Recall Ask patient to repeat the 3 items from question #3.: object 1 and object 2 Language Show patient a wristwatch & ask what it is. Repeat for pencil.: watch and pencil Ask the patient to 'take a piece of paper with their right hand' 'fold paper in half' 'place paper on floor': take paper in right hand, fold paper in half and place paper on floor Give patient a blank piece of paper & ask to write a sentence. Score if it contains a noun & verb.: sentence contains subject and verb Score Score: 22 PHQ-9 Over the last 2 weeks, how often have you been bothered by any of the following problems? 1. Little interest or pleasure in doing things: not at all 2. Feeling down, depressed, or hopeless: not at all 3. Trouble falling or staying asleep, or sleeping too much: several days 4. Feeling tired or having little energy: several days 5. Poor appetite or overeating: not at all 6. Feeling bad about yourself - or that you are a failure or have let yourself or your family down: not at all 7. Trouble concentrating on things, such as reading the newspaper or watching television: several days 8. Moving or speaking so slowly that other people could have noticed. Or the opposite - being so fidgety or restless that you have been moving around a lot more than usual: not at all 9. Thoughts that you would be better off or of hurting yourself in some way: not at all Total score: 3 Depression Screening Interpretation: Negative Depression Screening Done: Yes Source: Developed by Drs. Mukesh Rice, Sravani Ramirez, Martin Padgett and colleagues, with an educational faisal from [employer] Review of Systems Const All systems reviewed & are unremarkable except as noted in HPI and below Eyes Reports no additional complaints ENT Reports no additional complaints Card Reports no additional complaints Resp Reports no additional complaints GI Reports no additional complaints Reports no additional complaints Physical Exam Vital Signs: Last Vital Signs Temp 97.5 F 02/18/25 09:35 Pulse 80 02/18/25 09:35 Resp 18 02/18/25 09:35 BP 132/84 02/18/25 09:35 Pulse Ox 99 02/18/25 09:35 Oxygen Delivery Method Room Air 02/18/25 09:35 BMI result Body Mass Index 28.0 Const General: no acute distress HEENT Head: Yes normal to inspection Ears: hearing grossly normal bilaterally Eyes General: appearance normal, both eyes and all related structures Neck Neck: Yes no lymphadenopathy and Yes supple Resp Effort & Inspection: normal respiratory effort Auscultation: clear to auscultation bilaterally Cardio Rhythm: regular rhythm Heart sounds: S1 normal heart sound present and S2 normal heart sound present GI Inspection: Yes normal to inspection Palpation (GI): Soft to palpation Percussion: Yes normal to percussion Auscultation: normal bowel sounds Extrem General: Yes no clubbing, cyanosis or edema Assessment & Plan Assessment & Plan (1) Hyperlipidemia: Code(s): E78.5 - Hyperlipidemia, unspecified Plan: Continue atorvastatin return for fasting blood work (2) HTN (hypertension): Code(s): I10 - Essential (primary) hypertension Plan: Continue current medications (3) Cerebral infarction: Comment: 06/2024 after spinal surgery, left lower extremity weakness, CT angiogram severe stenosis 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 Follow-up in 6 months with a fasting labs before Orders: Orders Lipid Panel Today E78.5 - Hyperlipidemia, unspecified, I10 - Essential (primary) hypertension Comprehensive [place]. Panel Fast 6 Months D64.9 - Anemia, unspecified, E55.9 - Vitamin D deficiency, unspecified, E78.5 - Hyperlipidemia, unspecified, I10 - Essential (primary) hypertension, R73.9 - Hyperglycemia, unspecified Hemoglobin A1c 6 Months D64.9 - Anemia, unspecified, E55.9 - Vitamin D defi ciency, unspecified, E78.5 - Hyperlipidemia, unspecified, I10 - Essential (primary) hypertension, R73.9 - Hyperglycemia, unspecified Complete Blood Count Auto Diff 6 Months D64.9 - Anemia, unspecified, E55.9 - Vitamin D deficiency, unspecified, E78.5 - Hyperlipidemia, unspecified, I10 - Essential (primary) hypertension, R73.9 - Hyperglycemia, unspecified Lipid Panel 6 Months D64.9 - Anemia, unspecified, E55.9 - Vitamin D deficiency, unspecified, E78.5 - Hyperlipidemia, unspecified, I10 - Essential (primary) hypertension, R73.9 - Hyperglycemia, unspecified Vitamin B12 and Folate 6 Months D64.9 - Anemia, unspecified, E55.9 - Vitamin D deficiency, unspecified, E78.5 - Hyperlipidemia, unspecified, I10 - Essential (primary) hypertension, R73.9 - Hyperglycemia, unspecified Vitamin D 25-OH Total 6 Months D64.9 - Anemia, unspecified, E55.9 - Vitamin D deficiency, unspecified, E78.5 - Hyperlipidemia, unspecified, I10 - Essential (primary) hypertension, R73.9 - Hyperglycemia, unspecified TSH reflex Free T4 6 Months D64.9 - Anemia, unspecified, E55.9 - Vitamin D deficiency, unspecified, E78.5 - Hyperlipidemia, unspecified, I10 - Essential (primary) hypertension, R73.9 - Hyperglycemia, unspecified Medications: New cyanocobalamin (vitamin B-12) 1,000 mcg PO DAILY 90 caps 3RF Quality Reporting (2019) Depression/Bipolar (159/160/161/177) PHQ-9: Total score: 3 Coding Level of Care Code Medicare Subsequent (G0439) Diagnoses Hyperlipidemia E78.5 HTN (hypertension) I10 Cerebral infarction, unspecified mechanism I63.9 Cerebral infarction mechanism: unspecified mechanism Annual physical exam Z00.00 CPT Codes Advance Care Planning - Advance Care Planning discussion: On file, no changes ([id number]) Advance Care Planning - Time spent: 1-15 minutes, on File ([id number]) Advance Care Planning Advance Care Planning discussion: On file, no changes Forms completed: Health Care Proxy Time spent: 1-15 minutes, on File Did not discuss due to Cultural/Spiritual beliefs: Yes
--- OUTSIDE RECORDS SUMMARY | 2025-02-18 11:10 | XMS_ITS | Encounter Summary ---
Author Organization [facility] Address [address] [place] [address] Care Team Providers Care Infection Prevention Specialist Name Role Phone Leonardo García MD Primary Care Provider [phone] Encounter Details Date Type Department Care Team (Late st Contact Info) Description 06/29/2024 Lab Requisition [facility] - Main Lab [address] [facility] [place] [address] Chris Barlow MD [address] [place] [address] Encounter for other general examination Social History [...] CBC auto differential (06/29/2024 5:48 AM EST) [facility] Signature WBC 9.9 4.8 - 10.8 K/mcL LAB HEMETOLOGY METHOD 06/29/2024 10:26 AM [facility] RBC 3.60(L) 3.80 - 4.80 M/mcL LAB HEMETOLOGY METHOD 06/29/2024 10:26 AM [facility] Hemoglobin 11.2(L) 11.5 - 16.0 g/dL LAB HEMETOLOGY METHOD 06/29/2024 10:26 AM [facility] Hematocrit 33.3(L) 35.0 - 47.0 % LAB HEMETOLOGY METHOD 06/29/2024 10:26 AM [facility] MCV 93.0 79.0 - 98.0 FL LAB HEMETOLOGY METHOD 06/29/2024 10:26 AM [facility] MCH 31.3 27.0 - 32.0 pcg LAB HEMETOLOGY METHOD 06/29/2024 10:26 AM [facility] MCHC 33.6 32.0 - 37.0 g/dL LAB HEMETOLOGY METHOD 06/29/2024 10:26 AM [facility] RDW 13.8 11.0 - 15.0 % LAB HEMETOLOGY METHOD 06/29/2024 10:26 AM [facility] Platelets 373 130 - 400 K/mcL LAB HEMETOLOGY METHOD 06/29/2024 10:26 AM [facility] MPV 9.4 7.0 - 11.0 FL LAB HEMETOLOGY METHOD 06/29/2024 10:26 AM [facility] NRBC 0.0 <1.0 % LAB HEMETOLOGY METHOD 06/29/2024 10:26 AM [facility] NRBC Absolute 0.00 <0.10 K/mcL LAB HEMETOLOGY METHOD 06/29/2024 10:26 AM [facility] Neutrophils Relative 64.0 % LAB HEMETOLOGY METHOD 06/29/2024 10:26 AM [facility] Lymphocytes Relative 25.2 % LAB HEMETOLOGY METHOD 06/29/2024 10:26 AM [facility] Monocytes Relative 7.8 % LAB HEMETOLOGY METHOD 06/29/2024 10:26 AM [facility] Eosinophils Relative 2.0 % LAB HEMETOLOGY METHOD 06/29/2024 10:26 AM [facility] Basophils Relative 0.4 % LAB HEMETOLOGY METHOD 06/29/2024 10:26 AM [facility] Immature Granulocytes Relative 0.6 % LAB HEMETOLOGY METHOD 06/29/2024 10:26 AM [facility] Neutrophils Absolute 6.31 1.50 - 7.00 K/mcL LAB HEMETOLOGY METHOD 06/29/2024 10:26 AM [facility] Lymphocytes Absolute 2.49 1.00 - 5.00 K/mcL LAB HEMETOLOGY METHOD 06/29/2024 10:26 AM [facility] Monocytes Absolute 0.77 0.20 - 1.00 K/mcL LAB HEMETOLOGY METHOD 06/29/2024 10:26 AM [facility] Eosinophils Absolute 0.20 0.00 - 0.50 K/mcL LAB HEMETOLOGY METHOD 06/29/2024 10:26 AM [facility] Basophils Absolute 0.04 0.00 - 0.20 K/mcL LAB HEMETOLOGY METHOD 06/29/2024 10:26 AM [facility] Immature Granulocytes Absolute 0.06(H) 0.00 - 0.03 K/mcL LAB HEMETOLOGY METHOD 06/29/2024 10:26 AM EST [facility] Blood Venous blood specimen / Unknown Venipuncture / Unknown 06/29/2024 5:48 AM EST 06/29/2024 8:27 AM EST Chris Barlow MD LAB BLOOD ORDERABLES Final Resu lt Performing Organization Address City/[facility]/ZIP Co de Phone Number [facility] [address] [place] [address], [place] [phone] * Magnesium (06/29/2024 5:48 AM EST) [facility] Magnesium 2.2 1.9 - 2.6 mg/dL LAB CHEMISTRY METHOD 06/29/2024 10:10 AM EST [facility] Blood Venous blood specimen / Unknown Venipuncture / Unknown 06/29/2024 5:48 AM EST 06/29/2024 8:27 AM EST us Chris Barlow MD LAB BLOOD ORDERABLES Final Resu lt Performing Organization Address [facility]/ZIP Co de Phone Number [facility] [address] [place] [address], [place] [phone] * (ABNORMAL) Comprehensive metabolic panel (06/29/2024 5:48 AM EST) [facility] Sodium 134 133 - 145 mmol/L LAB CHEMISTRY METHOD 06/29/2024 10:10 AM EST [facility] Potassium 3.7 3.5 - 5.5 mmol/L LAB CHEMISTRY METHOD 06/29/2024 10:10 AM EST [facility] Chloride 100 96 - 110 mmol/L LAB CHEMISTRY METHOD 06/29/2024 10:10 AM EST [facility] CO2 29 21 - 32 mmol/L LAB CHEMISTRY METHOD 06/29/2024 10:10 AM EST [facility] Anion Gap 5 3 - 11 LAB CHEMISTRY METHOD 06/29/2024 10:10 AM [facility] Glucose 86 70 - 100 mg/dL LAB CHEMISTRY METHOD 06/29/2024 10:10 AM [facility] BUN 18 5 - 25 mg/dL LAB CHEMISTRY METHOD 06/29/2024 10:10 AM [facility] Creatinine 0.66 0.50 - 1.10 mg/dL LAB CHEMISTRY METHOD 06/29/2024 10:10 AM [facility] eGFR 88 >=60 mL/min/1. 73m2 LAB CHEMISTRY METHOD 06/29/2024 10:10 AM [facility] Comment:Calculation based on the Chronic Kidney Disease Epidemiology Collaboration (CKD-EPI) equation refit without adjustment for race. BUN/Creatinine Ratio 27.3 LAB CHEMISTRY METHOD 06/29/2024 10:10 AM [facility] Calcium 8.9 8.5 - 10.5 mg/dL LAB CHEMISTRY METHOD 06/29/2024 10:10 AM [facility] AST (SGOT) 36 10 - 42 unit/L LAB CHEMISTRY METHOD 06/29/2024 10:10 AM [facility] ALT (SGPT) 69(H) 10 - 60 unit/L LAB CHEMISTRY METHOD 06/29/2024 10:10 AM [facility] Alkaline Phosphatase 141(H) 42 - 121 unit/L LAB CHEMISTRY METHOD 06/29/2024 10:10 AM [facility] Total Protein 5.9(L) 6.0 - 8.0 g/dL LAB CHEMISTRY METHOD 06/29/2024 10:10 AM [facility] Albumin 3.2 3.2 - 5.0 g/dL LAB CHEMISTRY METHOD 06/29/2024 10:10 AM [facility] Total Bilirubin 0.8 0.0 - 1.4 mg/dL LAB CHEMISTRY METHOD 06/29/2024 10:10 AM EST [facility] Blood Venous blood specimen / Unknown Venipuncture / Unknown 06/29/2024 5:48 AM EST 06/29/2024 8:27 AM EST us Chris Barlow MD LAB BLOOD ORDERABLES Final Resu lt [facility] [address] [place] [address], documented in this encounter Visit Diagnoses Diagnosis Encounter for other general examination documented in this encounter Additional Health Concerns Infection Onset Date Last Indicated Resolved Time Respiratory Rule-Out 07/26/2024 07/26/2024 025 3:02 AM EST COVID-19 Rule-Out 07/26/2024 07/26/2024 07/26/2024 3:02 AM EST documented as of this encounter Care Teams Infection Prevention Specialist Relationship Specialty Start Date End Date Leonardo García MD [address] [place] [id number] PCP - General Internal Medicine 06/30/24 documented as of this encounter
--- OUTSIDE RECORDS SUMMARY | 2025-02-18 11:10 | XMS_ITS | Encounter Summary ---
Author Organization [facility] Address [address] [place] [address] Care Team Providers Care Supply Chain Procurement Manager Name Role Phone Leonardo García MD Primary Care Provider [phone] Encounter Details Date Type Department Care Team (Late st Contact Info) Description 07/06/2024 Lab Requisition [facility] - Main Lab [address] [facility] [place] [id number] Chris Barlow MD [address] [place] [address] Encounter for other general examination Social History [...] Culture urine (07/06/2024 10:07 AM EST) Pathologist [facility] Culture, Urine >100,000 CFU/mL Escherichia coli(A) JUDIE 07/08/2024 8:28 AM EST [facility] Urine Urine specimen [...] MICROBIOLOGY - GENERAL ORDE GONZALEZ Final Result [facility] [address] [place] [address], [place] [phone] * Jay urine culture tube (07/06/2024 10:07 AM EST) Extra Tube Hold for add-ons. 07/06/2024 4:01 PM [facility] Comment:Auto resulted. Urine Urine specimen obtained by clean catch procedure / Unknown 07/06/2024 10:07 AM EST 07/06/2024 2:09 PM EST us Chris Barlow MD LAB URINE ORDERABLES Final Resu lt [facility] [address] [place] [address], [place] [phone] * (ABNORMAL) Urinalysis with reflex microscopic and culture (07/06/2024 10:07 AM EST) [facility] [place] Urine 1.022 1.003 - 1.030 LAB URINALYSIS - AUTOMATED METHOD 07/06/2024 3:05 PM [facility] pH, Urine 5.5 5.0 - 8.0 pH LAB URINALYSIS - AUTOMATED METHOD 07/06/2024 3:05 PM [facility] Leukocytes, Urine Large(A) Negative LAB URINALYSIS - AUTOMATED METHOD 07/06/2024 3:05 PM [facility] Nitrite, Urine Positive(A) Negative LAB URINALYSIS - AUTOMATED METHOD 07/06/2024 3:05 PM [facility] Protein, Urine Negative <=Trace mg/dL LAB URINALYSIS - AUTOMATED METHOD 07/06/2024 3:05 PM [facility] Glucose, Urine Negative Negative mg/dL LAB URINALYSIS - AUTOMATED METHOD 07/06/2024 3:05 PM [facility] Ketones, Urine Negative Negative mg/dL LAB URINALYSIS - AUTOMATED METHOD 07/06/2024 3:05 PM [facility] Urobilinogen , Urine 1.0 0.2 - 1.0 mg/dL LAB URINALYSIS - AUTOMATED METHOD 07/06/2024 3:05 PM EST [facility] Bilirubin, Urine Negative Negative LAB URINALYSIS - AUTOMATED METHOD 07/06/2024 3:05 PM EST [facility] Blood, Urine Trace(A) Negative LAB URINALYSIS - AUTOMATED METHOD 07/06/2024 3:05 PM EST [facility] Urine Urine specimen obtained by clean catch procedure / Unknown 07/06/2024 10:07 AM EST 07/06/2024 2:07 PM EST us Chris Barlow MD LAB URINE ORDERABLES Final Resu lt [facility] [address] [place] [address], documented in this encounter Visit Diagnoses Diagnosis Encounter for other general examination documented in this encounter Additional Health Concerns Infection Onset Date Last Indicated Resolved Time Respiratory Rule-Out 07/26/2024 07/26/2024 025 3:02 AM EST COVID-19 Rule-Out 07/26/2024 07/26/2024 07/26/2024 3:02 AM EST documented as of this encounter Care Teams Supply Chain Procurement Manager Relationship Specialty Start Date End Date Leonardo García MD [address] [place] [id number] PCP - General Internal Medicine 06/30/24 documented as of this encounter
--- OUTSIDE RECORDS SUMMARY | 2025-02-18 11:10 | XMS_ITS | Encounter Summary ---
Author Organization Formerly [facility] Address [address] [place] [address] Care Team Providers Care Wet End Supervisor Name Role Phone Unavailable Primary Care Provider Unavailabl e Encounter Details Date Type Department Care Team (Late st Contact Info) Description 03/17/2020 Lab Requisition [facility] [address] [place] [address] Boo Milian PA-C [address] [place] [address] Encounter for laboratory testing for COVID-19 virus [...] SUKUMAR COVID-19 RT-PCR Assay is Real-Time Reverse Saxophone Player Polymerase Chain Reaction (animal trainer supervisor-PCR) for the in vitro qualitative detection of three SARS-Cov-2 target sequences unique to the coronavirus disease 2019 (COVID-19). This is an Emergency Use Authorization (EUA) in vitro diagnostic (IVD) test that has been modified to include the SportsBeep automated liquid handler. Its analytical performance characteristics have been determined by the pad making machine operator and verified by [facility] in a manner consistent with CLIA [...] at the following links: For Healthcare Providers: https://www.fda.gov/media/841638/download For Patients: https://www.backstitch.gov/media/840252/download TEST LIMITATIONS Positive results are indicative of [...] system. For further details refer to the Arc[employer] TaqPath COVID-19 Combo Kit EUA submission (https://www.backstitch.gov/media/518711/download). ----- Test performed by [facility], [address] [place] [address] CLIA# [id number] Antoine Shah M.D., Ph.D., [facility], Clinical Director Of Field Service Microbiology Nasopharyngeal swab / Unknown 03/17/2020 2:45 PM EDT 03/17/2020 2:45 PM EDT Narrative [facility] - 03/18/2020 5:59 PM EDT Performed at [facility], [address] [place] [address], [facility] 0695, CLIA [id number] Boo Milian PA-C MICROBIOLOGY - GENERAL OR DERABLES Final Result [facility] [address] [place] [address] documented in this encounter Visit Diagnoses Diagnosis Encounter for laboratory testing for COVID-19 virus documented in this encounter
--- OUTSIDE RECORDS SUMMARY | 2025-02-18 11:10 | XMS_ITS | Clinical Summary ---
Author Organization [facility] Address [address] [place] [address] Care Team Providers Care Negative Stripper Name Role Phone Unavailable Primary Care Provider [...]
--- OUTSIDE RECORDS SUMMARY | 2025-02-18 11:10 | XMS_ITS | Encounter Summary ---
Author Organization [facility] [place] [address] Care Team Providers Care Hot Head Machine Operator Name Role Phone Leonardo García MD Primary Care Provider [phone] Encounter Details Date Type Department Care Team (Late st Contact Info) Description 06/23/2024 Lab Requisition [facility] - Main Lab [address] [facility] [place] [address] Chris Barlow MD [address] [place] [address] Encounter for other general examination Social History [...] mg/dL LAB CHEMISTRY METHOD 06/23/2024 12:17 PM [facility] Blood Venous blood specimen / Unknown Venipuncture / Unknown 06/23/2024 5:46 AM EST 06/23/2024 10:54 AM EST us Chris Barlow MD LAB BLOOD ORDERABLES Final Resu lt [facility] [address] [place] [address], [place] [phone] * (ABNORMAL) Basic metabolic panel (06/23/2024 5:46 AM EST) [facility] Sodium 137 133 - 145 mmol/L LAB CHEMISTRY METHOD 06/23/2024 12:24 PM [facility] Potassium 3.7 3.5 - 5.5 mmol/L LAB CHEMISTRY METHOD 06/23/2024 12:24 PM [facility] Chlor[place] 100 96 - 110 mmol/L LAB CHEMISTRY METHOD 06/23/2024 12:24 PM [facility] CO2 29 21 - 32 mmol/L LAB CHEMISTRY METHOD 06/23/2024 12:24 PM [facility] Anion Gap 8 3 - 11 LAB CHEMISTRY METHOD 06/23/2024 12:24 PM [facility] Glucose 106(H) 70 - 100 mg/dL LAB CHEMISTRY METHOD 06/23/2024 12:24 PM [facility] BUN 23 5 - 25 mg/dL LAB CHEMISTRY METHOD 06/23/2024 12:24 PM [facility] Creatinine 0.83 0.50 - 1.10 mg/dL LAB CHEMISTRY METHOD 06/23/2024 12:24 PM [facility] eGFR 70 >=60 mL/min/1. 73m2 LAB CHEMISTRY METHOD 06/23/2024 12:24 PM EST [facility] Comment:Calculation based on the Chronic Kidney Disease Epidemiology Collaboration (CKD-EPI) equation refit without adjustment for race. BUN/Creatinine Ratio 27.7 LAB CHEMISTRY METHOD 06/23/2024 12:24 PM EST [facility] Calcium 8.4(L) 8.5 - 10.5 mg/dL LAB CHEMISTRY METHOD 06/23/2024 12:24 PM [facility] Blood Venous blood specimen / Unknown Venipuncture / Unknown 06/23/2024 5:46 AM EST 06/23/2024 10:54 AM EST us Chris Barlow MD LAB BLOOD ORDERABLES Final Resu lt [facility] [address] [place] [address], documented in this encounter Visit Diagnoses Diagnosis Encounter for other general examination documented in this encounter Additional Health Concerns Infection Onset Date Last Indicated Resolved Time Respiratory Rule-Out 07/26/2024 07/26/2024 025 3:02 AM EST COVID-19 Rule-Out 07/26/2024 07/26/2024 07/26/2024 3:02 AM EST documented as of this encounter Care Teams Hot Head Machine Operator Relationship Specialty Start Date End Date Leonardo García MD [address] [place] [address] PCP - General Internal Medicine 06/30/24 documented as of this encounter
--- OUTSIDE RECORDS SUMMARY | 2025-02-18 11:10 | XMS_ITS | Clinical Summary ---
Author Organization [facility] Address [address] [place] [address] Care Team Providers Care Chief Librarian Extension Department Name Role Phone Ashleigh Grullon MD Primary Care Provider [phone] Allergies Active Allergy Reactions Criticality Noted Date Comments Ampicillin Anaphylaxis High 08/15/2017 Chloramphenicol Anaphylaxis High 08/15/2017 [place] 08/30/2017 Tape Rash Medium 08/30/2017 Paper tape, [...] MORNING AND IN THE EVENING 0 Active [place]-3 Fatty Acids (OMEGA-3 FISH OIL PO) Take [...] Immunizations Name Administration Dates Next Due Covid-19 ([employer]) Dilution Required 05/11/2021,0 08/04/2020,07/14/2020 Social History Tobacco [...] this topic Medical Devices Implanted Type Area Advertising Space Clerk Device Identifier Shelf Expiration Date Model / Serial / Lot Screw 6.5 X 45.Mm - [id number] - [id number] Implanted:Qty : 1 on 08/30/2017 by Emeka Lopez MD at [facility] Posterior: Spine Lumbar [employer] 1067.1645 / / 6.5 X 50mm Screw Modular Creo Amp - [id number] - [id number] Implanted:Qty : 3 on 08/30/2017 by Emeka Lopez MD at [facility] Posterior: Spine Lumbar [employer] 1067.1650 / / 5.5 Polyaxial [place]ip Threaded Creo Amp - [id number] - [id number] Implanted:Qty : 4 on 08/30/2017 by Emeka Lopez MD at [facility] [place] [facility] Posterior: Spine Lumbar [employer] 1119.0110 / / 5.5 Threaded Locking Cap Creo - [id number] - [id number] Implanted:Qty : 4 on 08/30/2017 by Emeka Lopez MD at [facility] Posterior: Spine Lumbar [employer] 1119.0010 / / 5.5mm Curved Gurpreet Titanium Alloy 40mm Length - [id number] - [id number] Implanted:Qty : 2 on 08/30/2017 by Emeka Lopez MD at [facility] [place] [facility] Posterior: Spine Lumbar [facility] 1119.7040 / / Lp Hex Screw 6.5x20mm Stry-Howm 8748-3517-991 457 - [id number] Implanted:Qty : 1 on 02/16/2022 by Ottoniel Wells MD at [facility] Left: Hip [employer] [id number] 11/23/2026 6838-7336 / / [id number] Hip Insrt X3 Trident 0d 36mm E Stry-How 402-08-61o-20 0921 - [id number] Implanted:Qty : 1 on 02/16/2022 by Ottoniel Wells MD at [facility] Left: Hip [employer] [id number] 09/24/2025 623-10-36 E / / [id number] Hip Stm Parveen 127 #2 30 124 Stry-How 0675-0913b-12 7932 - [id number] Implanted:Qty : 1 on 02/16/2022 by Ottoniel Wells MD at [facility] Left: Hip [employer] [id number] 10/21/2026 3436-1562 D / / [id number] Plug Bone Sm Stry-How 2807-2-221-14 3871 - [id number] Implanted:Qty : 1 on 02/16/2022 by Ottoniel Wells MD at [facility] Left: Hip [employer] [id number] 11/16/2026 6215-5-00 1 / / [id number] E Hip Dist Spacer Ostnc Univ #8 Stry-Howm 0429-4288-860 590 - [id number] Implanted:Qty : 1 on 02/16/2022 by Ottoniel Wells MD at [facility] Left: Hip [employer] [id number] 01/19/2027 9618-0288 / / [id number] Hip Head Delta Biolox 36mm-2.5 Stry-Howm 2418-6-915-54 9191 - [id number] Implanted:Qty : 1 on 02/16/2022 by Ottoniel Wells MD at [facility] Left: Hip [employer] [id number] 11/10/2026 6570-0-43 6 / / [id number] Cement Bone Surg Simplex Radiopq Stry-Howm 4081-5-490-11 4092 - [id number] Implanted:Qty : 1 on 02/16/2022 by Ottoniel Wells MD at [facility] Left: Hip [employer] [id number] 05/03/2023 6190-06-04 0 / / [id number] Cement Bone Surg Simplex Radiopq Stry-Howm 9086-9-349-11 4092 - [id number] Implanted:Qty : 1 on 02/16/2022 by Ottoniel Wells MD at [facility] Left: Hip [employer] [id number] 05/03/2023 6190-06-04 0 / / [id number] Lp Hex Screw 6.5x30mm Stry-Howm 4801-9888-712 478 - [id number] Implanted:Qty : 1 on 02/16/2022 by Ottoniel Wells MD at [facility] Left: Hip [employer] [id number] 12/15/2026 7817-2567 / / [id number] Tritanium Cluster Hole Shell 52mm Stry-Howm 651-13-50u-77 0473 - [id number] Implanted:Qty : 1 on 02/16/2022 by Ottoniel Wells MD at [facility] Left: Hip [employer] [id number] 09/28/2026 702-04-52 E / / [id number] Advance Directives For more information, please contact: [phone] Documents on File Type Date Recorded Patient Location Worker Expl anation Advance Directive and Living Will [...] way: discussion with patient . Care Teams Chief Librarian Extension Department Relationship Specialty Start Date End Date Ashleigh Grullon MD [address] [place] [address] PCP - General Manager Apple 01/02/22
--- OUTSIDE RECORDS SUMMARY | 2025-02-18 11:10 | XMS_ITS | Encounter Summary ---
Author Organization [facility] Address [address] [place] [address] Care Team Providers Care Photo Printer Name Role Phone Leonardo García MD Primary Care Provider [phone] Encounter Details Date Type Department Care Team (Late st Contact Info) Description 07/07/2024 Lab Requisition [facility] - Main Lab [address] [facility] [place] [phone] Chris Barlow MD [address] [place] [address] Encounter for other general examination Social History [...] CBC auto differential (07/07/2024 6:34 AM EST) [facility] WBC 6.0 4.8 - 10.8 K/mcL LAB HEMETOLOGY METHOD 07/07/2024 10:40 AM [facility] RBC 3.20(L) 3.80 - 4.80 M/mcL LAB HEMETOLOGY METHOD 07/07/2024 10:40 AM [facility] Hemoglobin 10.1(L) 11.5 - 16.0 g/dL LAB HEMETOLOGY METHOD 07/07/2024 10:40 AM [facility] Hematocrit 30.7(L) 35.0 - 47.0 % LAB HEMETOLOGY METHOD 07/07/2024 10:40 AM [facility] MCV 94.8 79.0 - 98.0 FL LAB HEMETOLOGY METHOD 07/07/2024 10:40 AM [facility] MCH 31.2 27.0 - 32.0 pcg LAB HEMETOLOGY METHOD 07/07/2024 10:40 AM [facility] MCHC 32.9 32.0 - 37.0 g/dL LAB HEMETOLOGY METHOD 07/07/2024 10:40 AM [facility] RDW 14.2 11.0 - 15.0 % LAB HEMETOLOGY METHOD 07/07/2024 10:40 AM [facility] Platelets 415(H) 130 - 400 K/mcL LAB HEMETOLOGY METHOD 07/07/2024 10:40 AM [facility] MPV 9.2 7.0 - 11.0 FL LAB HEMETOLOGY METHOD 07/07/2024 10:40 AM [facility] NRBC 0.0 <1.0 % LAB HEMETOLOGY METHOD 07/07/2024 10:40 AM [facility] NRBC Absolute 0.00 <0.10 K/mcL LAB HEMETOLOGY METHOD 07/07/2024 10:40 AM [facility] Neutrophils Relative 57.2 % LAB HEMETOLOGY METHOD 07/07/2024 10:40 AM [facility] Lymphocytes Relative 25.4 % LAB HEMETOLOGY METHOD 07/07/2024 10:40 AM [facility] Monocytes Relative 12.5 % LAB HEMETOLOGY METHOD 07/07/2024 10:40 AM [facility] Eosinophils Relative 3.8 % LAB HEMETOLOGY METHOD 07/07/2024 10:40 AM [facility] Basophils Relative 0.8 % LAB HEMETOLOGY METHOD 07/07/2024 10:40 AM [facility] Immature Granulocytes Relative 0.3 % LAB HEMETOLOGY METHOD 07/07/2024 10:40 AM [facility] Neutrophils Absolute 3.42 1.50 - 7.00 K/mcL LAB HEMETOLOGY METHOD 07/07/2024 10:40 AM [facility] Lymphocytes Absolute 1.52 1.00 - 5.00 K/mcL LAB HEMETOLOGY METHOD 07/07/2024 10:40 AM [facility] Monocytes Absolute 0.75 0.20 - 1.00 K/mcL LAB HEMETOLOGY METHOD 07/07/2024 10:40 AM [facility] Eosinophils Absolute 0.23 0.00 - 0.50 K/mcL LAB HEMETOLOGY METHOD 07/07/2024 10:40 AM [facility] Basophils Absolute 0.05 0.00 - 0.20 K/mcL LAB HEMETOLOGY METHOD 07/07/2024 10:40 AM [facility] Immature Granulocytes Absolute 0.02 0.00 - 0.03 K/mcL LAB HEMETOLOGY METHOD 07/07/2024 10:40 AM EST [facility] Blood Venous blood specimen / Unknown Venipuncture / Unknown 07/07/2024 6:34 AM EST 07/07/2024 9:05 AM EST us Chris Barlow MD LAB BLOOD ORDERABLES Final Resu lt [facility] [address] [place] [address], [place] [phone] * Basic metabolic panel (07/07/2024 6:34 AM EST) Sodium 135 133 - 145 mmol/L LAB CHEMISTRY METHOD 07/07/2024 11:20 AM [facility] Potassium 4.2 3.5 - 5.5 mmol/L LAB CHEMISTRY METHOD 07/07/2024 11:20 AM [facility] Chloride 100 96 - 110 mmol/L LAB CHEMISTRY METHOD 07/07/2024 11:20 AM [facility] CO2 28 21 - 32 mmol/L LAB CHEMISTRY METHOD 07/07/2024 11:20 AM [facility] Anion Gap 7 3 - 11 LAB CHEMISTRY METHOD 07/07/2024 11:20 AM [facility] Glucose 92 70 - 100 mg/dL LAB CHEMISTRY METHOD 07/07/2024 11:20 AM [facility] BUN 19 5 - 25 mg/dL LAB CHEMISTRY METHOD 07/07/2024 11:20 AM [facility] Creatinine 0.70 0.50 - 1.10 mg/dL LAB CHEMISTRY METHOD 07/07/2024 11:20 AM [facility] eGFR 86 >=60 mL/min/1. 73m2 LAB CHEMISTRY METHOD 07/07/2024 11:20 AM [facility] Comment:Calculation based on the Chronic Kidney Disease Epidemiology Collaboration (CKD-EPI) equation refit without adjustment for race. BUN/Creatinine Ratio 27.1 LAB CHEMISTRY METHOD 07/07/2024 11:20 AM EST [facility] Calcium 9.0 8.5 - 10.5 mg/dL LAB CHEMISTRY METHOD 07/07/2024 11:20 AM EST [facility] Blood Venous blood specimen / Unknown Venipuncture / Unknown 07/07/2024 6:34 AM EST 07/07/2024 9:05 AM EST us Chris Barlow MD LAB BLOOD ORDERABLES Final Resu lt [facility] [address] [place] [address], documented in this encounter Visit Diagnoses Diagnosis Encounter for other general examination documented in this encounter Additional Health Concerns Infection Onset Date Last Indicated Resolved Time Respiratory Rule-Out 07/26/2024 07/26/2024 025 3:02 AM EST COVID-19 Rule-Out 07/26/2024 07/26/2024 07/26/2024 3:02 AM EST documented as of this encounter Care Teams Photo Printer Relationship Specialty Start Date End Date Leonardo García MD [address] [place] [id number] PCP - General Internal Medicine 06/30/24 documented as of this encounter
--- OUTSIDE RECORDS SUMMARY | 2025-02-18 11:10 | XMS_ITS | Encounter Summary ---
Author Organization [facility] Address [address] [place] [address] Care Team Providers Care Laboratory Clerk Name Role Phone Leonardo García MD Primary Care Provider [phone] Encounter Details Date Type Department Care Team (Late st Contact Info) Description 06/22/2024 Lab Requisition [facility] - Main Lab [address] [facility] [place] [address] Chris Barlow MD [address] [place] [address] Encounter for other general examination Social History [...] mmol/L LAB CHEMISTRY METHOD 06/22/2024 9:17 AM [facility] Potassium 3.4(L) 3.5 - 5.5 mmol/L LAB CHEMISTRY METHOD 06/22/2024 9:17 AM [facility] [place] 101 96 - 110 mmol/L LAB CHEMISTRY METHOD 06/22/2024 9:17 AM [facility] CO2 28 21 - 32 mmol/L LAB CHEMISTRY METHOD 06/22/2024 9:17 AM [facility] Anion Gap 8 3 - 11 LAB CHEMISTRY METHOD 06/22/2024 9:17 AM [facility] Glucose 128(H) 70 - 100 mg/dL LAB CHEMISTRY METHOD 06/22/2024 9:17 AM [facility] BUN 14 5 - 25 mg/dL LAB CHEMISTRY METHOD 06/22/2024 9:17 AM [facility] Creatinine 0.60 0.50 - 1.10 mg/dL LAB CHEMISTRY METHOD 06/22/2024 9:17 AM [facility] eGFR 90 >=60 mL/min/1. 73m2 LAB CHEMISTRY METHOD 06/22/2024 9:17 AM [facility] Comment:Calculation based on the Chronic Kidney Disease Epidemiology Collaboration (CKD-EPI) equation refit without adjustment for race. BUN/Creatinine Ratio 23.3 LAB CHEMISTRY METHOD 06/22/2024 9:17 AM [facility] Calcium 8.3(L) 8.5 - 10.5 mg/dL LAB CHEMISTRY METHOD 06/22/2024 9:17 AM [facility] Blood Venous blood specimen / Unknown Venipuncture / Unknown 06/22/2024 6:05 AM EST 06/22/2024 8:27 AM EST us Chris Barlow MD LAB BLOOD ORDERABLES Final Resu lt [facility] [address] [place] [address], [place] [phone] documented in this encounter Visit Diagnoses Diagnosis Encounter for other general examination documented in this encounter Additional Health Concerns Infection Onset Date Last Indicated Resolved Time Respiratory Rule-Out 07/26/2024 07/26/2024 025 3:02 AM EST COVID-19 Rule-Out 07/26/2024 07/26/2024 07/26/2024 3:02 AM EST documented as of this encounter Care Teams Laboratory Clerk Relationship Specialty Start Date End Date Leonardo García MD [address] [place] [address] PCP - General Internal Medicine 06/30/24 documented as of this encounter
--- OUTSIDE RECORDS SUMMARY | 2025-02-18 11:10 | XMS_ITS | Clinical Summary ---
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 ([facility] V24, [facility] V28) 07/18/2024 Gastro-esophageal reflux disease [...] LAMINECTOMY DECOMPRESSION; Surgeon: Emeka Lopez MD; Location: [facility]; Service: Spine; Laterality: Bilateral Posterior; LUMBAR FUSION 08/30/2017 Bilateral Posterior PROCEDURE:LUMBAR FUSION;COMMENT:Procedure: L4 - 5 FUSION SPINE LUMBAR POSTERIOR, INSTRUMENTED ARTHRODESIS; Surgeon: Emeka Lopez MD; Location: [facility]; Service: Spine; Laterality: Bilateral Posterior; AUTOGRAFT/SPINE SURGERY 08/30/2017 Left PROCEDURE:AUTOGRAFT/SPINE SURGERY;COMMENT:Procedure: AUTOGRAFT BONE SPINE; Surgeon: Emeka Lopez MD; Location: [facility]; Service: Spine; Laterality: Left; TOTAL KNEE ARTHROPLASTY 01/03/2021 Left PROCEDURE:TOTAL KNEE ARTHROPLASTY TOTAL HIP ARTHROPLASTY 02/16/2022 Left PROCEDURE:TOTAL HIP ARTHROPLASTY;COMMENT:Proce dure: REPLACEMENT TOTAL HIP; Surgeon: Ottoniel Wells MD; Location: [facility] Service: Orthopedics; Laterality: Left; Medical History Medical History Date Comments Bronchitis, chronic ([facility] V24, [facility] V28) DX:Bronchitis, chronic ([facility]);COMMENT:May 2017 GERD (gastroesophageal reflux disease) [...] this topic Medical Devices Implanted Type Area Educational Psychology Teacher Device Identifier Shelf Expiration Date Model / Serial / Lot Cement Bone Surg Simplex Radiopq [facility]-How [id number] Implanted:Qty: 1 on 02/16/2022 by Ottoniel Wells MD Left: Hip [employer] [id number] 05/03/2023 6191-1-010 / / [id number] Hip Head Delta Biolox 36mm-2.5 [facility] [id number] Implanted:Qty: 1 on 02/16/2022 by Ottoniel Wells MD Left: Hip [employer] [id number] 11/10/2026 6570-0-436 / / [id number] Cement Bone Surg Simplex Radiopq Stry-Howm [id number] 092 Implanted:Qty: 1 on 02/16/2022 by Ottoniel Wells MD Left: Hip [employer] [id number] 05/03/2023 6191-1-010 / / [id number] Lp Hex Screw 6.5x30mm Stry-Howm [id number] 78 Implanted:Qty: 1 on 02/16/2022 by Ottoniel Wells MD Left: Hip [employer] [id number] 12/15/2026 1430-9267 / / [id number] Tritanium Cluster Hole Shell 52mm Stry-Howm [id number] Implanted:Qty: 1 on 02/16/2022 by Ottoniel Wells MD Left: Hip [employer] [id number] 09/28/2026 702-04-52E / / [id number] Lp Hex Screw 6.5x20mm Stry-Howm [id number] 57 Implanted:Qty: 1 on 02/16/2022 by Ottoniel Wells MD Left: Hip [employer] [id number] 11/23/2026 3813-0700 / / [id number] Hip Insrt X3 Trident 0d 36mm E Stry-Howm [id number] 921 Implanted:Qty: 1 on 02/16/2022 by Ottoniel Wells MD Left: Hip [employer] [id number] 09/24/2025 623-10-36E / / [id number] Hip Stm Parveen 127 #2 30 124 Stry-Howm [id number] Implanted:Qty: 1 on 02/16/2022 by Ottoniel Wells MD Left: Hip [employer] [id number] 10/21/2026 6057-0230D / / [id number] Plug Bone Sm Stry-Howm [id number] 871 Implanted:Qty: 1 on 02/16/2022 by Ottoniel Wells MD Left: Hip [employer] [id number] 11/16/2026 6215-5-001 / / [id number] Hip Dist Spacer [facility] [id number] 90 Implanted:Qty: 1 on 02/16/2022 by Ottoniel Wells MD Left: Hip [employer] [id number] 01/19/2027 8384-3437 / / [id number] Procedures Procedure Name Priority Date/Time Associated Diagnosis Comments BASIC METABOLIC PANEL Routine 07/27/2024 6:22 AM EST from Last 3 Months or Most Recently Relevant to Health Maintenance Results * (ABNORMAL) Basic metabolic panel (07/27/2024 6:22 AM EST) Sodium 137 133 - 145 mmol/L LAB CHEMISTRY METHOD 07/27/2024 7:47 AM [facility] Potassium 3.6 3.5 - 5.5 mmol/L LAB CHEMISTRY METHOD 07/27/2024 7:47 AM [facility] Chloride 103 96 - 110 mmol/L LAB CHEMISTRY METHOD 07/27/2024 7:47 AM [facility] CO2 29 21 - 32 mmol/L LAB CHEMISTRY METHOD 07/27/2024 7:47 AM [facility] Anion Gap 5 3 - 11 LAB CHEMISTRY METHOD 07/27/2024 7:47 AM [facility] Glucose 110(H) 70 - 100 mg/dL LAB CHEMISTRY METHOD 07/27/2024 7:47 AM [facility] BUN 10 5 - 25 mg/dL LAB CHEMISTRY METHOD 07/27/2024 7:47 AM [facility] Creatinine 0.49(L) 0.50 - 1.10 mg/dL LAB CHEMISTRY METHOD 07/27/2024 7:47 AM [facility] eGFR 94 >=60 mL/min/1. 73m2 LAB CHEMISTRY METHOD 07/27/2024 7:47 AM EST [facility] Comment:Calculation based on the Chronic Kidney Disease Epidemiology Collaboration (CKD-EPI) equation refit without adjustment for race. BUN/Creatinine Ratio 20.4 LAB CHEMISTRY METHOD 07/27/2024 7:[address] [facility] Calcium 9.4 8.5 - 10.5 mg/dL LAB CHEMISTRY METHOD 07/27/2024 7:47 AM EST [facility] Blood Venous blood specimen / Unknown Venipuncture / Unknown 07/27/2024 6:22 AM EST 07/27/2024 7:10 AM EST Jeannie FORMAN LAB BLOOD ORDERABLES Final Result [facility] [address] [place] [address], from Last 3 Months or Most Recently Relevant to Health Maintenance Insurance MEDICARE [facility] Advance Directives Documents on File Type Date Recorded Patient Business Management Specialist Expl anation Health Care Decision (hx) 02/16/2022 [...] currently active code status orders. Care Teams Technical Stenographer Relationship Specialty Start Date End Date Leonrado García MD [address] [place] [address] PCP - General Internal Medicine 06/30/24
--- OUTSIDE RECORDS SUMMARY | 2025-02-18 11:10 | XMS_ITS | Encounter Summary ---
Author Organization [facility] [place] [address] Care Team Providers Care Processor Solid Propellant Name Role Phone Leonardo García MD Primary Care Provider [phone] Encounter Details Date Type Department Care Team (Late st Contact Info) Description 07/05/[address] [facility] - Main Lab [address] [facility] [place] [address] Chris Barlow MD [address] [place] [address] Encounter for other general examination Social History [...] K/mcL LAB HEMETOLOGY METHOD 07/05/2024 11:42 AM [facility] RBC 3.60(L) 3.80 - 4.80 M/mcL LAB HEMETOLOGY METHOD 07/05/2024 11:42 AM [facility] Hemoglobin 10.7(L) 11.5 - 16.0 g/dL LAB HEMETOLOGY METHOD 07/05/2024 11:42 AM [facility] Hematocrit 32.8(L) 35.0 - 47.0 % LAB HEMETOLOGY METHOD 07/05/2024 11:42 AM [facility] MCV 92.1 79.0 - 98.0 FL LAB HEMETOLOGY METHOD 07/05/2024 11:42 AM [facility] MCH 30.1 27.0 - 32.0 pcg LAB HEMETOLOGY METHOD 07/05/2024 11:42 AM [facility] MCHC 32.6 32.0 - 37.0 g/dL LAB HEMETOLOGY METHOD 07/05/2024 11:42 AM [facility] RDW 14.2 11.0 - 15.0 % LAB HEMETOLOGY METHOD 07/05/2024 11:42 AM [facility] Platelets 439(H) 130 - 400 K/mcL LAB HEMETOLOGY METHOD 07/05/2024 11:42 AM [facility] MPV 8.9 7.0 - 11.0 FL LAB HEMETOLOGY METHOD 07/05/2024 11:42 AM [facility] NRBC 0.0 <1.0 % LAB HEMETOLOGY METHOD 07/05/2024 11:42 AM [facility] NRBC Absolute 0.00 <0.10 K/mcL LAB HEMETOLOGY METHOD 07/05/2024 11:42 AM [facility] Neutrophils Relative 71.2 % LAB HEMETOLOGY METHOD 07/05/2024 11:42 AM [facility] Lymphocytes Relative 16.3 % LAB HEMETOLOGY METHOD 07/05/2024 11:42 AM [facility] Monocytes Relative 10.4 % LAB HEMETOLOGY METHOD 07/05/2024 11:42 AM [facility] Eosinophils Relative 1.2 % LAB HEMETOLOGY METHOD 07/05/2024 11:42 AM [facility] Basophils Relative 0.4 % LAB HEMETOLOGY METHOD 07/05/2024 11:42 AM [facility] Immature Granulocytes Relative 0.5 % LAB HEMETOLOGY METHOD 07/05/2024 11:42 AM [facility] Neutrophils Absolute 7.06(H) 1.50 - 7.00 K/mcL LAB HEMETOLOGY METHOD 07/05/2024 11:42 AM [facility] Lymphocytes Absolute 1.62 1.00 - 5.00 K/mcL LAB HEMETOLOGY METHOD 07/05/2024 11:42 AM [facility] Monocytes Absolute 1.03(H) 0.20 - 1.00 K/mcL LAB HEMETOLOGY METHOD 07/05/2024 11:42 AM [facility] Eosinophils Absolute 0.12 0.00 - 0.50 K/mcL LAB HEMETOLOGY METHOD 07/05/2024 11:42 AM [facility] Basophils Absolute 0.04 0.00 - 0.20 K/mcL LAB HEMETOLOGY METHOD 07/05/2024 11:42 AM [facility] Immature Granulocytes Absolute 0.05(H) 0.00 - 0.03 K/mcL LAB HEMETOLOGY METHOD 07/05/2024 11:42 AM EST [facility] Blood Venous blood specimen / Unknown Venipuncture / Unknown 07/05/2024 7:00 AM EST 07/05/2024 10:39 AM EST Chris Barlow MD LAB BLOOD ORDERABLES Final Resu lt Performing Organization Address City/[facility]/ZIP Co de Phone Number [facility] [address] [place] [address], [place] [phone] * Magnesium (07/05/2024 7:00 AM EST) Pathologist [facility] Magnesium 2.4 1.9 - 2.6 mg/dL LAB CHEMISTRY METHOD 07/05/2024 12:15 PM EST [facility] Blood Venous blood specimen / Unknown Venipuncture / Unknown 07/05/2024 7:00 AM EST 07/05/2024 10:39 AM EST Chris Barlow MD LAB BLOOD ORDERABLES Final Resu lt Performing Organization Address [facility]/ZIP Co de Phone Number [facility] [address] [place] [address], [place] [phone] * (ABNORMAL) Comprehensive metabolic panel (07/05/2024 7:00 [...] mmol/L LAB CHEMISTRY METHOD 07/05/2024 12:14 PM [facility] Anion Gap 6 3 - 11 LAB CHEMISTRY METHOD 07/05/2024 12:14 PM [facility] Glucose 95 70 - 100 mg/dL LAB CHEMISTRY METHOD 07/05/2024 12:14 PM [facility] BUN 21 5 - 25 mg/dL LAB CHEMISTRY METHOD 07/05/2024 12:14 PM [facility] Creatinine 0.80 0.50 - 1.10 mg/dL LAB CHEMISTRY METHOD 07/05/2024 12:14 PM [facility] eGFR 74 >=60 mL/min/1. 73m2 LAB CHEMISTRY METHOD 07/05/2024 12:14 PM [facility] Comment:Calculation based on the Chronic Kidney Disease Epidemiology Collaboration (CKD-EPI) equation refit without adjustment for race. BUN/Creatinine Ratio 26.3 LAB CHEMISTRY METHOD 07/05/2024 12:14 PM [facility] Calcium 8.9 8.5 - 10.5 mg/dL LAB CHEMISTRY METHOD 07/05/2024 12:14 PM [facility] AST (SGOT) 20 10 - 42 unit/L LAB CHEMISTRY METHOD 07/05/2024 12:14 PM [facility] ALT (SGPT) 50 10 - 60 unit/L LAB CHEMISTRY METHOD 07/05/2024 12:14 PM [facility] Alkaline Phosphatase 203(H) 42 - 121 unit/L LAB CHEMISTRY METHOD 07/05/2024 12:14 PM [facility] Total Protein 6.1 6.0 - 8.0 g/dL LAB CHEMISTRY METHOD 07/05/2024 12:14 PM [facility] Albumin 3.5 3.2 - 5.0 g/dL LAB CHEMISTRY METHOD 07/05/2024 12:14 PM [facility] Total Bilirubin 0.9 0.0 - 1.4 mg/dL LAB CHEMISTRY METHOD 07/05/2024 12:14 PM EST [facility] Blood Venous blood specimen / Unknown Venipuncture / Unknown 07/05/2024 7:00 AM EST 07/05/2024 10:39 AM EST us Chris Barlow MD LAB BLOOD ORDERABLES Final Resu lt [facility] [address] [place] [address], documented in this encounter Visit Diagnoses Diagnosis Encounter for other general examination documented in this encounter Additional Health Concerns Infection Onset Date Last Indicated Resolved Time Respiratory Rule-Out 07/26/2024 07/26/2024 025 3:02 AM EST COVID-19 Rule-Out 07/26/2024 07/26/2024 07/26/2024 3:02 AM EST documented as of this encounter Care Teams Processor Solid Propellant Relationship Specialty Start Date End Date Leonardo García MD [address] [place] [address] PCP - General Internal Medicine 06/30/24 documented as of this encounter
--- OUTSIDE RECORDS SUMMARY | 2025-02-18 11:10 | XMS_ITS | Encounter Summary ---
Author Organization [facility] Address [address] [place] [address] Care Team Providers Care Director Cloud Transformation Name Role Phone Leonardo García MD Primary Care Provider [phone] Encounter Details Date Type Department Care Team (Late st Contact Info) Description 06/21/2024 Lab Requisition [facility] - Main Lab [address] [facility] [place] [address] Chris Barlow MD [address] [place] [address] Encounter for other general examination Social History [...] CBC auto differential (06/21/2024 7:13 AM EST) [facility] WBC 8.0 4.8 - 10.8 K/mcL LAB HEMETOLOGY METHOD 06/21/2024 10:55 AM [facility] RBC 3.50(L) 3.80 - 4.80 M/mcL LAB HEMETOLOGY METHOD 06/21/2024 10:55 AM [facility] Hemoglobin 10.5(L) 11.5 - 16.0 g/dL LAB HEMETOLOGY METHOD 06/21/2024 10:55 AM [facility] Hematocrit 30.6(L) 35.0 - 47.0 % LAB HEMETOLOGY METHOD 06/21/2024 10:55 AM [facility] MCV 88.7 79.0 - 98.0 FL LAB HEMETOLOGY METHOD 06/21/2024 10:55 AM [facility] MCH 30.4 27.0 - 32.0 pcg LAB HEMETOLOGY METHOD 06/21/2024 10:55 AM [facility] MCHC 34.3 32.0 - 37.0 g/dL LAB HEMETOLOGY METHOD 06/21/2024 10:55 AM [facility] RDW 13.4 11.0 - 15.0 % LAB HEMETOLOGY METHOD 06/21/2024 10:55 AM [facility] Platelets 257 130 - 400 K/mcL LAB HEMETOLOGY METHOD 06/21/2024 10:55 AM [facility] MPV 9.7 7.0 - 11.0 FL LAB HEMETOLOGY METHOD 06/21/2024 10:55 AM [facility] NRBC 0.0 <1.0 % LAB HEMETOLOGY METHOD 06/21/2024 10:55 AM [facility] NRBC Absolute 0.00 <0.10 K/mcL LAB HEMETOLOGY METHOD 06/21/2024 10:55 AM [facility] Neutrophils Relative 73.2 % LAB HEMETOLOGY METHOD 06/21/2024 10:55 AM [facility] Lymphocytes Relative 16.0 % LAB HEMETOLOGY METHOD 06/21/2024 10:55 AM [facility] Monocytes Relative 7.3 % LAB HEMETOLOGY METHOD 06/21/2024 10:55 AM [facility] Eosinophils Relative 2.3 % LAB HEMETOLOGY METHOD 06/21/2024 10:55 AM [facility] Basophils Relative 0.6 % LAB HEMETOLOGY METHOD 06/21/2024 10:55 AM [facility] Immature Granulocytes Relative 0.6 % LAB HEMETOLOGY METHOD 06/21/2024 10:55 AM [facility] Neutrophils Absolute 5.84 1.50 - 7.00 K/mcL LAB HEMETOLOGY METHOD 06/21/2024 10:55 AM [facility] Lymphocytes Absolute 1.28 1.00 - 5.00 K/mcL LAB HEMETOLOGY METHOD 06/21/2024 10:55 AM [facility] Monocytes Absolute 0.58 0.20 - 1.00 K/mcL LAB HEMETOLOGY METHOD 06/21/2024 10:55 AM [facility] Eosinophils Absolute 0.18 0.00 - 0.50 K/mcL LAB HEMETOLOGY METHOD 06/21/2024 10:55 AM [facility] Basophils Absolute 0.05 0.00 - 0.20 K/mcL LAB HEMETOLOGY METHOD 06/21/2024 10:55 AM [facility] Immature Granulocytes Absolute 0.05(H) 0.00 - 0.03 K/mcL LAB HEMETOLOGY METHOD 06/21/2024 10:55 AM EST [facility] Blood Venous blood specimen / Unknown Venipuncture / Unknown 06/21/2024 7:13 AM EST 06/21/2024 10:03 AM EST us Chris Barlow MD LAB BLOOD ORDERABLES Final Resu lt Performing Organization Address City/[facility]/ZIP Co de Phone Number [facility] [address] [place] [address], [place] [phone] * (ABNORMAL) Magnesium (06/21/2024 7:13 AM EST) Magnesium 1.7(L) 1.9 - 2.6 mg/dL LAB CHEMISTRY METHOD 06/21/2024 11:21 AM EST [facility] Blood Venous blood specimen / Unknown Venipuncture / Unknown 06/21/2024 7:13 AM EST 06/21/2024 10:03 AM EST us Chris Barlow MD LAB BLOOD ORDERABLES Final Resu lt Performing Organization Address [facility]/ZIP Co de Phone Number [facility] [address] [place] [address], [place] [phone] * (ABNORMAL) Comprehensive metabolic panel (06/21/2024 7:13 AM EST) Sodium 138 133 - 145 mmol/L LAB CHEMISTRY METHOD 06/21/2024 11:50 AM EST [facility] Potassium 2.8(LL) 3.5 - 5.5 mmol/L LAB CHEMISTRY METHOD 06/21/2024 11:50 AM EST [facility] Chloride 103 96 - 110 mmol/L LAB CHEMISTRY METHOD 06/21/2024 11:50 AM EST [facility] CO2 30 21 - 32 mmol/L LAB CHEMISTRY METHOD 06/21/2024 11:50 AM [facility] Anion Gap 5 3 - 11 LAB CHEMISTRY METHOD 06/21/2024 11:50 AM [facility] Glucose 109(H) 70 - 100 mg/dL LAB CHEMISTRY METHOD 06/21/2024 11:50 AM [facility] BUN 8 5 - 25 mg/dL LAB CHEMISTRY METHOD 06/21/2024 11:50 AM [facility] Creatinine 0.62 0.50 - 1.10 mg/dL LAB CHEMISTRY METHOD 06/21/2024 11:50 AM [facility] eGFR 89 >=60 mL/min/1. 73m2 LAB CHEMISTRY METHOD 06/21/2024 11:50 AM [facility] Comment:Calculation based on the Chronic Kidney Disease Epidemiology Collaboration (CKD-EPI) equation refit without adjustment for race. BUN/Creatinine Ratio 12.9 LAB CHEMISTRY METHOD 06/21/2024 11:50 AM [facility] Calcium 8.4(L) 8.5 - 10.5 mg/dL LAB CHEMISTRY METHOD 06/21/2024 11:50 AM [facility] AST (SGOT) 71(H) 10 - 42 unit/L LAB CHEMISTRY METHOD 06/21/2024 11:50 AM [facility] ALT (SGPT) 46 10 - 60 unit/L LAB CHEMISTRY METHOD 06/21/2024 11:50 AM [facility] Alkaline Phosphatase 95 42 - 121 unit/L LAB CHEMISTRY METHOD 06/21/2024 11:50 AM [facility] Total Protein 5.6(L) 6.0 - 8.0 g/dL LAB CHEMISTRY METHOD 06/21/2024 11:50 AM [facility] Albumin 2.9(L) 3.2 - 5.0 g/dL LAB CHEMISTRY METHOD 06/21/2024 11:50 AM [facility] Total Bilirubin 0.7 0.0 - 1.4 mg/dL LAB CHEMISTRY METHOD 06/21/2024 11:50 AM EST [facility] Blood Venous blood specimen / Unknown Venipuncture / Unknown 06/21/2024 7:13 AM EST 06/21/2024 10:03 AM EST us Chris Barlow MD LAB BLOOD ORDERABLES Final Resu lt [facility] [address] [place] [address], documented in this encounter Visit Diagnoses Diagnosis Encounter for other general examination documented in this encounter Additional Health Concerns Infection Onset Date Last Indicated Resolved Time Respiratory Rule-Out 07/26/2024 07/26/2024 025 3:02 AM EST COVID-19 Rule-Out 07/26/2024 07/26/2024 07/26/2024 3:02 AM EST documented as of this encounter Care Teams Director Cloud Transformation Relationship Specialty Start Date End Date Leonardo García MD [address] [place] [address] PCP - General Internal Medicine 06/30/24 documented as of this encounter
--- OUTSIDE RECORDS SUMMARY | 2025-02-18 11:10 | XMS_ITS | Patient Health Record ---
Author Organization [facility] Address [address] [place] [address] Care Team Providers Care Engraver Seals Name Role Phone Ashleigh Grullon MD Primary Care Provider Mukesh Taveras [phone] Allergies Allergen (clinical drug ingredient) Drug/Non Drug [...] Status Risk Notes Problem Acute hemorrhagic gastritis (6455176) Acute gastritis with bleeding (K29.01) Active confirmed Problem Diverticular disease of colon (971616012) Diverticulosis of large intestine without perforation or abscess without bleeding (K57.30) Active confirmed Problem Iron deficiency anemia (72773330) Iron deficiency anemia (D50.9) Active confirmed Problem Hiatal hernia (75860695) Hiatal hernia (K44.9) Active confirmed Problem Chronic diarrhea (169892100) Chronic diarrhea (K52.9) Active confirmed Problem Chronic antral gastritis with hemorrhage (disorder) (296751798) Chronic gastritis with bleeding, unspecified gastritis type (K29.51) Active confirmed Problem Gastric ulcer (118810014) Gastric ulcer (K25.9) Active confirmed Problem Erosive gastritis (590917278971678 0) Gastritis, erosive (K29.60) Active confirmed Plan Of Treatment Future Test Test Name Order Date UPPER GI ENDOSCOPY 02/26/2014 COLONOSCOPY 02/26/2014 Insurance Providers Payer Name Payer Address Payer Phone Subscriber Number Group Number Insured Name Patient Relationship to Insured Coverage Start Date Coverage End Date MEDICARE OF [place] [address] [place] [id number] SRINIVASAN ALVARADO Self - patient is the insured [employer] [address] [place] [address] [id number] SRINIVASAN ALVARADO Self - patient is the insured Medical (General) History Medical History History ICD Code Denies RI,DM,CVA,Lung disease,renal dise ase Colonoscopy in 10/2001 with [...]
== END 2025-02-18 10:33 | disposition home or self-care (01) ==
LOC: HO.HMCC 09:29
PROVIDERS: PCP Internal Medicine; Visit Provider Internal Medicine
DX: Z00.00 Encounter for general adult medical examination without abnormal findings (principal); I63.9 Cerebral infarction, unspecified; E78.5 Hyperlipidemia, unspecified; I10 Essential (primary) hypertension

== ENCOUNTER 2025-02-21 07:01 | Outpatient (REF) | payer MEDICARE, SELFPAY ==
--- OUTSIDE RECORDS SUMMARY | 2025-02-21 07:04 | XMS_ITS | Encounter Summary ---
Author Organization [facility] Address [address] [place] [address] Care Team Providers Care Auto Mechanic Supervisor Name Role Phone Unavailable Primary Care Provider Unavailabl e Encounter Details Date Type Department Care Team (Late st Contact Info) Description 03/17/2020 Lab Requisition [facility] [address] [place] [address] Boo Milian PA-C [address] [place] [address] Encounter for laboratory testing for COVID-19 virus [...] SUKUMAR COVID-19 RT-PCR Assay is Real-Time Reverse Dining Service Supervisor Polymerase Chain Reaction (nascar pit crew person-PCR) for the in vitro qualitative detection of three SARS-Cov-2 target sequences unique to the coronavirus disease 2019 (COVID-19). This is an Emergency Use Authorization (EUA) in vitro diagnostic (IVD) test that has been modified to include the Style[employer]ive automated liquid handler. Its analytical performance characteristics have been determined by the sorting cows worker and verified by [facility] in a manner consistent with CLIA [...] at the following links: For Healthcare Providers: https://www.fda.gov/media/514569/download For Patients: https://www.[employer].gov/media/290223/download TEST LIMITATIONS Positive results are indicative of [...] system. For further details refer to the [employer] TaqPath COVID-19 Combo Kit EUA submission (https://www.[employer].gov/media/250273/download). ----- Test performed by [facility], [address] [place] [address] CLIA# [id number] Antoine Shah M.D., Ph.D., [facility] Clinical Orthotic And Prosthetic Technician Microbiology Nasopharyngeal swab / Unknown 03/17/2020 2:45 PM EDT 03/17/2020 2:45 PM EDT Narrative [facility] - 03/18/2020 5:59 PM EDT Performed at [facility], [address] [place] [address], [facility] 0695, CLIA [id number] Boo Milian PA-C MICROBIOLOGY - GENERAL OR DERABLES Final Result [facility] [address] [place] [address] documented in this encounter Visit Diagnoses Diagnosis Encounter for laboratory testing for COVID-19 virus documented in this encounter
--- OUTSIDE RECORDS SUMMARY | 2025-02-21 07:04 | XMS_ITS | Encounter Summary ---
Author Organization [facility] [place] [address] Care Team Providers Care Clinical Applications Specialist Name Role Phone Leonardo García MD Primary Care Provider [phone] Encounter Details Date Type Department Care Team (Late st Contact Info) Description 06/29/2024 Lab Requisition [facility] - Main Lab 299 [facility] [place] [address] Chris Barlow MD [address] [place] [address] Encounter for other general examination Social History [...] CBC auto differential (06/29/2024 5:48 AM EST) [facility] Signature WBC 9.9 4.8 - 10.8 K/mcL LAB HEMETOLOGY METHOD 06/29/2024 10:26 AM [facility] RBC 3.60(L) 3.80 - 4.80 M/mcL LAB HEMETOLOGY METHOD 06/29/2024 10:26 AM [facility] Hemoglobin 11.2(L) 11.5 - 16.0 g/dL LAB HEMETOLOGY METHOD 06/29/2024 10:26 AM [facility] Hematocrit 33.3(L) 35.0 - 47.0 % LAB HEMETOLOGY METHOD 06/29/2024 10:26 AM [facility] MCV 93.0 79.0 - 98.0 FL LAB HEMETOLOGY METHOD 06/29/2024 10:26 AM [facility] MCH 31.3 27.0 - 32.0 pcg LAB HEMETOLOGY METHOD 06/29/2024 10:26 AM [facility] MCHC 33.6 32.0 - 37.0 g/dL LAB HEMETOLOGY METHOD 06/29/2024 10:26 AM [facility] RDW 13.8 11.0 - 15.0 % LAB HEMETOLOGY METHOD 06/29/2024 10:26 AM [facility] Platelets 373 130 - 400 K/mcL LAB HEMETOLOGY METHOD 06/29/2024 10:26 AM [facility] MPV 9.4 7.0 - 11.0 FL LAB HEMETOLOGY METHOD 06/29/2024 10:26 AM [facility] NRBC 0.0 <1.0 % LAB HEMETOLOGY METHOD 06/29/2024 10:26 AM [facility] NRBC Absolute 0.00 <0.10 K/mcL LAB HEMETOLOGY METHOD 06/29/2024 10:26 AM [facility] Neutrophils Relative 64.0 % LAB HEMETOLOGY METHOD 06/29/2024 10:26 AM [facility] Lymphocytes Relative 25.2 % LAB HEMETOLOGY METHOD 06/29/2024 10:26 AM [facility] Monocytes Relative 7.8 % LAB HEMETOLOGY METHOD 06/29/2024 10:26 AM [facility] Eosinophils Relative 2.0 % LAB HEMETOLOGY METHOD 06/29/2024 10:26 AM [facility] Basophils Relative 0.4 % LAB HEMETOLOGY METHOD 06/29/2024 10:26 AM [facility] Immature Granulocytes Relative 0.6 % LAB HEMETOLOGY METHOD 06/29/2024 10:26 AM [facility] Neutrophils Absolute 6.31 1.50 - 7.00 K/mcL LAB HEMETOLOGY METHOD 06/29/2024 10:26 AM [facility] Lymphocytes Absolute 2.49 1.00 - 5.00 K/mcL LAB HEMETOLOGY METHOD 06/29/2024 10:26 AM [facility] Monocytes Absolute 0.77 0.20 - 1.00 K/mcL LAB HEMETOLOGY METHOD 06/29/2024 10:26 AM [facility] Eosinophils Absolute 0.20 0.00 - 0.50 K/mcL LAB HEMETOLOGY METHOD 06/29/2024 10:26 AM [facility] Basophils Absolute 0.04 0.00 - 0.20 K/mcL LAB HEMETOLOGY METHOD 06/29/2024 10:26 AM [facility] Immature Granulocytes Absolute 0.06(H) 0.00 - 0.03 K/mcL LAB HEMETOLOGY METHOD 06/29/2024 10:26 AM EST [facility] Blood Venous blood specimen / Unknown Venipuncture / Unknown 06/29/2024 5:48 AM EST 06/29/2024 8:27 AM EST Chris Barlow MD LAB BLOOD ORDERABLES Final Resu lt Performing Organization Address City/[facility]/ZIP Co de Phone Number [facility] [address] [place] [address], [place] [phone] * Magnesium (06/29/2024 5:48 AM EST) [facility] Magnesium 2.2 1.9 - 2.6 mg/dL LAB CHEMISTRY METHOD 06/29/2024 10:10 AM EST [facility] Blood Venous blood specimen / Unknown Venipuncture / Unknown 06/29/2024 5:48 AM EST 06/29/2024 8:27 AM EST us Chris Barlow MD LAB BLOOD ORDERABLES Final Resu lt Performing Organization Address [facility]/ZIP Co de Phone Number [facility] [address] [place] [address], [place] [phone] * (ABNORMAL) Comprehensive metabolic panel (06/29/2024 5:48 AM EST) [facility] Sodium 134 133 - 145 mmol/L LAB CHEMISTRY METHOD 06/29/2024 10:10 AM EST [facility] Potassium 3.7 3.5 - 5.5 mmol/L LAB CHEMISTRY METHOD 06/29/2024 10:10 AM EST [facility] Chloride 100 96 - 110 mmol/L LAB CHEMISTRY METHOD 06/29/2024 10:10 AM EST [facility] CO2 29 21 - 32 mmol/L LAB CHEMISTRY METHOD 06/29/2024 10:10 AM EST [facility] Anion Gap 5 3 - 11 LAB CHEMISTRY METHOD 06/29/2024 10:10 AM [facility] Glucose 86 70 - 100 mg/dL LAB CHEMISTRY METHOD 06/29/2024 10:10 AM [facility] BUN 18 5 - 25 mg/dL LAB CHEMISTRY METHOD 06/29/2024 10:10 AM [facility] Creatinine 0.66 0.50 - 1.10 mg/dL LAB CHEMISTRY METHOD 06/29/2024 10:10 AM [facility] eGFR 88 >=60 mL/min/1. 73m2 LAB CHEMISTRY METHOD 06/29/2024 10:10 AM [facility] Comment:Calculation based on the Chronic Kidney Disease Epidemiology Collaboration (CKD-EPI) equation refit without adjustment for race. BUN/Creatinine Ratio 27.3 LAB CHEMISTRY METHOD 06/29/2024 10:10 AM [facility] Calcium 8.9 8.5 - 10.5 mg/dL LAB CHEMISTRY METHOD 06/29/2024 10:10 AM [facility] AST (SGOT) 36 10 - 42 unit/L LAB CHEMISTRY METHOD 06/29/2024 10:10 AM [facility] ALT (SGPT) 69(H) 10 - 60 unit/L LAB CHEMISTRY METHOD 06/29/2024 10:10 AM [facility] Alkaline Phosphatase 141(H) 42 - 121 unit/L LAB CHEMISTRY METHOD 06/29/2024 10:10 AM [facility] Total Protein 5.9(L) 6.0 - 8.0 g/dL LAB CHEMISTRY METHOD 06/29/2024 10:10 AM [facility] Albumin 3.2 3.2 - 5.0 g/dL LAB CHEMISTRY METHOD 06/29/2024 10:10 AM [facility] Total Bilirubin 0.8 0.0 - 1.4 mg/dL LAB CHEMISTRY METHOD 06/29/2024 10:10 AM EST [facility] Blood Venous blood specimen / Unknown Venipuncture / Unknown 06/29/2024 5:48 AM EST 06/29/2024 8:27 AM EST us Chris Barlow MD LAB BLOOD ORDERABLES Final Resu lt [facility] [address] [place] [address], documented in this encounter Visit Diagnoses Diagnosis Encounter for other general examination documented in this encounter Additional Health Concerns Infection Onset Date Last Indicated Resolved Time Respiratory Rule-Out 07/26/2024 07/26/2024 025 3:02 AM EST COVID-19 Rule-Out 07/26/2024 07/26/2024 07/26/2024 3:02 AM EST documented as of this encounter Care Teams Clinical Applications Specialist Relationship Specialty Start Date End Date Leonardo García MD [address] [place] [address] PCP - General Internal Medicine 06/30/24 documented as of this encounter
--- OUTSIDE RECORDS SUMMARY | 2025-02-21 07:04 | XMS_ITS | Encounter Summary ---
Author Organization [facility] [address] Care Team Providers Care Developmental Education Instructor Name Role Phone Leonardo García MD Primary Care Provider [phone] Encounter Details Date Type Department Care Team (Late st Contact Info) Description 06/23/2024 Lab Requisition [facility] - Main Lab 299 [facility] [place] [address] Chris Barlow MD [address] [place] [address] Encounter for other general examination Social History [...] * Magnesium (06/23/2024 5:46 AM EST) Pathologist [facility] Magnesium 2.1 1.9 - 2.6 mg/dL LAB CHEMISTRY METHOD 06/23/2024 12:17 PM [facility] Blood Venous blood specimen / Unknown Venipuncture / Unknown 06/23/2024 5:46 AM EST 06/23/2024 10:54 AM EST us Chris Barlow MD LAB BLOOD ORDERABLES Final Resu lt [facility] [address] [place] [address], [place] [phone] * (ABNORMAL) Basic metabolic panel (06/23/2024 5:46 AM EST) [facility] Sodium 137 133 - 145 mmol/L LAB CHEMISTRY METHOD 06/23/2024 12:24 PM [facility] Potassium 3.7 3.5 - 5.5 mmol/L LAB CHEMISTRY METHOD 06/23/2024 12:24 PM [facility] Chloride 100 96 - 110 mmol/L LAB CHEMISTRY METHOD 06/23/2024 12:24 PM [facility] CO2 29 21 - 32 mmol/L LAB CHEMISTRY METHOD 06/23/2024 12:24 PM [facility] Anion Gap 8 3 - 11 LAB CHEMISTRY METHOD 06/23/2024 12:24 PM [facility] Glucose 106(H) 70 - 100 mg/dL LAB CHEMISTRY METHOD 06/23/2024 12:24 PM [facility] BUN 23 5 - 25 mg/dL LAB CHEMISTRY METHOD 06/23/2024 12:24 PM [facility] Creatinine 0.83 0.50 - 1.10 mg/dL LAB CHEMISTRY METHOD 06/23/2024 12:24 PM [facility] eGFR 70 >=60 mL/min/1. 73m2 LAB CHEMISTRY METHOD 06/23/2024 12:24 PM EST [facility] Comment:Calculation based on the Chronic Kidney Disease Epidemiology Collaboration (CKD-EPI) equation refit without adjustment for race. BUN/Creatinine Ratio 27.7 LAB CHEMISTRY METHOD 06/23/2024 12:24 PM EST [facility] Calcium 8.4(L) 8.5 - 10.5 mg/dL LAB CHEMISTRY METHOD 06/23/2024 12:24 PM [facility] Blood Venous blood specimen / Unknown Venipuncture / Unknown 06/23/2024 5:46 AM EST 06/23/2024 10:54 AM EST us Chris Barlow MD LAB BLOOD ORDERABLES Final Resu lt [facility] [address] [place] [address], documented in this encounter Visit Diagnoses Diagnosis Encounter for other general examination documented in this encounter Additional Health Concerns Infection Onset Date Last Indicated Resolved Time Respiratory Rule-Out 07/26/2024 07/26/2024 025 3:02 AM EST COVID-19 Rule-Out 07/26/2024 07/26/2024 07/26/2024 3:02 AM EST documented as of this encounter Care Teams Developmental Education Instructor Relationship Specialty Start Date End Date Leonardo García MD [address] [place] [id number] PCP - General Internal Medicine 06/30/24 documented as of this encounter
--- OUTSIDE RECORDS SUMMARY | 2025-02-21 07:04 | XMS_ITS | Encounter Summary ---
Author Organization [facility] Address [address] [place] [address] Care Team Providers Care Club Attendant Name Role Phone Leonardo García MD Primary Care Provider [phone] Encounter Details Date Type Department Care Team (Late st Contact Info) Description 07/07/2024 Lab Requisition [facility] - Main Lab 299 [facility] [place] [id number] Chris Barlow MD [address] [place] [address] Encounter for other general examination Social History [...] CBC auto differential (07/07/2024 6:34 AM EST) [facility] WBC 6.0 4.8 - 10.8 K/mcL [...] LAB HEMETOLOGY METHOD 07/07/2024 10:40 AM EST [facility] Blood Venous blood specimen / Unknown Venipuncture / Unknown 07/07/2024 6:34 AM EST 07/07/2024 9:05 AM EST us Chris Barlow MD LAB BLOOD ORDERABLES Final Resu lt [facility] [address] [place] [address], [place] [phone] * Basic metabolic panel (07/07/2024 6:34 AM [...] LAB CHEMISTRY METHOD 07/07/2024 11:20 AM EST [facility] Calcium 9.0 8.5 - 10.5 mg/dL LAB CHEMISTRY METHOD 07/07/2024 11:20 AM EST [facility] Blood Venous blood specimen / Unknown Venipuncture / Unknown 07/07/2024 6:34 AM EST 07/07/2024 9:05 AM EST us Chris Barlow MD LAB BLOOD ORDERABLES Final Resu lt [facility] [address] [place] [address], documented in this encounter Visit Diagnoses Diagnosis Encounter for other general examination documented in this encounter Additional Health Concerns Infection Onset Date Last Indicated Resolved Time Respiratory Rule-Out 07/26/2024 07/26/2024 025 3:02 AM EST COVID-19 Rule-Out 07/26/2024 07/26/2024 07/26/2024 3:02 AM EST documented as of this encounter Care Teams Club Attendant Relationship Specialty Start Date End Date Leonardo García MD [address] [place] [id number] PCP - General Internal Medicine 06/30/24 documented as of this encounter
--- OUTSIDE RECORDS SUMMARY | 2025-02-21 07:04 | XMS_ITS | Encounter Summary ---
Author Organization [facility] [place] [address] Care Team Providers Care Casing Material Weigher Name Role Phone Leonardo García MD Primary Care Provider [phone] Encounter Details Date Type Department Care Team (Late st Contact Info) Description 06/22/2024 Lab Requisition [facility] - Main Lab 299 [facility] [place] [address] Chris Barlow MD [address] [place] [address] Encounter for other general examination Social History [...] Resu lt [facility] [address] [place] [address], [place] [phone] documented in this encounter Visit Diagnoses Diagnosis Encounter for other general examination documented in this encounter Additional Health Concerns Infection Onset Date Last Indicated Resolved Time Respiratory Rule-Out 07/26/2024 07/26/2024 025 3:02 AM EST COVID-19 Rule-Out 07/26/2024 07/26/2024 07/26/2024 3:02 AM EST documented as of this encounter Care Teams Casing Material Weigher Relationship Specialty Start Date End Date Leonardo García MD [address] [place] [id number] PCP - General Internal Medicine 06/30/24 documented as of this encounter
--- OUTSIDE RECORDS SUMMARY | 2025-02-21 07:04 | XMS_ITS | Clinical Summary ---
Author Organization [facility] Address [address] [place] [address] Care Team Providers Care Tank Tender Name Role Phone Unavailable Primary Care [...]
--- OUTSIDE RECORDS SUMMARY | 2025-02-21 07:04 | XMS_ITS | Encounter Summary ---
Author Organization [facility] [place] [address] Care Team Providers Care Project Executive Name Role Phone Leonardo García MD Primary Care Provider [phone] Encounter Details Date Type Department Care Team (Late st Contact Info) Description 07/05/2024 Lab Requisition [facility] - Main Lab [address] [facility] [place] [address] Chris Barlow MD [address] [place] [address] Encounter for other general examination Social History [...] CBC auto differential (07/05/2024 7:00 AM EST) [facility] Signature WBC 9.9 4.8 - 10.8 K/mcL LAB HEMETOLOGY METHOD 07/05/2024 11:42 AM [facility] RBC 3.60(L) 3.80 - 4.80 M/mcL LAB HEMETOLOGY METHOD 07/05/2024 11:42 AM [facility] Hemoglobin 10.7(L) 11.5 - 16.0 g/dL LAB HEMETOLOGY METHOD 07/05/2024 11:42 AM [facility] Hematocrit 32.8(L) 35.0 - 47.0 % LAB HEMETOLOGY METHOD 07/05/2024 11:42 AM [facility] MCV 92.1 79.0 - 98.0 FL LAB HEMETOLOGY METHOD 07/05/2024 11:42 AM [facility] MCH 30.1 27.0 - 32.0 pcg LAB HEMETOLOGY METHOD 07/05/2024 11:42 AM [facility] MCHC 32.6 32.0 - 37.0 g/dL LAB HEMETOLOGY METHOD 07/05/2024 11:42 AM [facility] RDW 14.2 11.0 - 15.0 % LAB HEMETOLOGY METHOD 07/05/2024 11:42 AM [facility] Platelets 439(H) 130 - 400 K/mcL LAB HEMETOLOGY METHOD 07/05/2024 11:42 AM [facility] MPV 8.9 7.0 - 11.0 FL LAB HEMETOLOGY METHOD 07/05/2024 11:42 AM [facility] NRBC 0.0 <1.0 % LAB HEMETOLOGY METHOD 07/05/2024 11:42 AM [facility] NRBC Absolute 0.00 <0.10 K/mcL LAB HEMETOLOGY METHOD 07/05/2024 11:42 AM [facility] Neutrophils Relative 71.2 % LAB HEMETOLOGY METHOD 07/05/2024 11:42 AM [facility] Lymphocytes Relative 16.3 % LAB HEMETOLOGY METHOD 07/05/2024 11:42 AM [facility] Monocytes Relative 10.4 % LAB HEMETOLOGY METHOD 07/05/2024 11:42 AM [facility] Eosinophils Relative 1.2 % LAB HEMETOLOGY METHOD 07/05/2024 11:42 AM [facility] Basophils Relative 0.4 % LAB HEMETOLOGY METHOD 07/05/2024 11:42 AM [facility] Immature Granulocytes Relative 0.5 % LAB HEMETOLOGY METHOD 07/05/2024 11:42 AM [facility] Neutrophils Absolute 7.06(H) 1.50 - 7.00 K/mcL LAB HEMETOLOGY METHOD 07/05/2024 11:42 AM [facility] Lymphocytes Absolute 1.62 1.00 - 5.00 K/mcL LAB HEMETOLOGY METHOD 07/05/2024 11:42 AM [facility] Monocytes Absolute 1.03(H) 0.20 - 1.00 K/mcL LAB HEMETOLOGY METHOD 07/05/2024 11:42 AM [facility] Eosinophils Absolute 0.12 0.00 - 0.50 K/mcL LAB HEMETOLOGY METHOD 07/05/2024 11:42 AM [facility] Basophils Absolute 0.04 0.00 - 0.20 K/mcL LAB HEMETOLOGY METHOD 07/05/2024 11:42 AM [facility] Immature Granulocytes Absolute 0.05(H) 0.00 - 0.03 K/mcL LAB HEMETOLOGY METHOD 07/05/2024 11:42 AM EST [facility] Blood Venous blood specimen / Unknown Venipuncture / Unknown 07/05/2024 7:00 AM EST 07/05/2024 10:39 AM EST Chris Barlow MD LAB BLOOD ORDERABLES Final Resu lt Performing Organization Address City/[facility]/ZIP Co de Phone Number [facility] [address] [place] [address], [place] [phone] * Magnesium (07/05/2024 7:00 AM EST) Pathologist [facility] Magnesium 2.4 1.9 - 2.6 mg/dL LAB CHEMISTRY METHOD 07/05/2024 12:15 PM EST [facility] Blood Venous blood specimen / Unknown Venipuncture / Unknown 07/05/2024 7:00 AM EST 07/05/2024 10:39 AM EST Chris Barlow MD LAB BLOOD ORDERABLES Final Resu lt Performing Organization Address [facility]/ZIP Co de Phone Number [facility] [address] [place] [address], [place] [phone] * (ABNORMAL) Comprehensive metabolic panel (07/05/2024 7:00 AM EST) Sodium 132(L) 133 - 145 mmol/L LAB CHEMISTRY METHOD 07/05/2024 12:14 PM EST [facility] Potassium 4.3 3.5 - 5.5 mmol/L LAB CHEMISTRY METHOD 07/05/2024 12:14 PM EST [facility] Chloride 98 96 - 110 mmol/L LAB CHEMISTRY METHOD 07/05/2024 12:14 PM EST [facility] CO2 28 21 - 32 mmol/L LAB CHEMISTRY METHOD 07/05/2024 12:14 PM [facility] Anion Gap 6 3 - 11 LAB CHEMISTRY METHOD 07/05/2024 12:14 PM [facility] Glucose 95 70 - 100 mg/dL LAB CHEMISTRY METHOD 07/05/2024 12:14 PM [facility] BUN 21 5 - 25 mg/dL LAB CHEMISTRY METHOD 07/05/2024 12:14 PM [facility] Creatinine 0.80 0.50 - 1.10 mg/dL LAB CHEMISTRY METHOD 07/05/2024 12:14 PM [facility] eGFR 74 >=60 mL/min/1. 73m2 LAB CHEMISTRY METHOD 07/05/2024 12:14 PM [facility] Comment:Calculation based on the Chronic Kidney Disease Epidemiology Collaboration (CKD-EPI) equation refit without adjustment for race. BUN/Creatinine Ratio 26.3 LAB CHEMISTRY METHOD 07/05/2024 12:14 PM [facility] Calcium 8.9 8.5 - 10.5 mg/dL LAB CHEMISTRY METHOD 07/05/2024 12:14 PM [facility] AST (SGOT) 20 10 - 42 unit/L LAB CHEMISTRY METHOD 07/05/2024 12:14 PM [facility] ALT (SGPT) 50 10 - 60 unit/L LAB CHEMISTRY METHOD 07/05/2024 12:14 PM [facility] Alkaline Phosphatase 203(H) 42 - 121 unit/L LAB CHEMISTRY METHOD 07/05/2024 12:14 PM [facility] Total Protein 6.1 6.0 - 8.0 g/dL LAB CHEMISTRY METHOD 07/05/2024 12:14 PM [facility] Albumin 3.5 3.2 - 5.0 g/dL LAB CHEMISTRY METHOD 07/05/2024 12:14 PM [facility] Total Bilirubin 0.9 0.0 - 1.4 mg/dL LAB CHEMISTRY METHOD 07/05/2024 12:14 PM EST [facility] Blood Venous blood specimen / Unknown Venipuncture / Unknown 07/05/2024 7:00 AM EST 07/05/2024 10:39 AM EST us Chris Barlow MD LAB BLOOD ORDERABLES Final Resu lt [facility] [address] [place] [address], documented in this encounter Visit Diagnoses Diagnosis Encounter for other general examination documented in this encounter Additional Health Concerns Infection Onset Date Last Indicated Resolved Time Respiratory Rule-Out 07/26/2024 07/26/2024 025 3:02 AM EST COVID-19 Rule-Out 07/26/2024 07/26/2024 07/26/2024 3:02 AM EST documented as of this encounter Care Teams Project Executive Relationship Specialty Start Date End Date Leonardo García MD [address] [place] [address] PCP - General Internal Medicine 06/30/24 documented as of this encounter
--- OUTSIDE RECORDS SUMMARY | 2025-02-21 07:04 | XMS_ITS | Patient Health Record ---
Author Organization [facility] Address [address] [place] [address] Care Team Providers Care Track Liner Operator Name Role Phone Ashleigh Grullon MD Primary Care Provider Mukesh Taveras [phone] Allergies Allergen (clinical drug ingredient) Drug/Non Drug [...] Status Risk Notes Problem Acute hemorrhagic gastritis (0572126) Acute gastritis with bleeding (K29.01) Active confirmed Problem Diverticular disease of colon (290491844) Diverticulosis of large intestine without perforation or abscess without bleeding (K57.30) Active confirmed Problem Iron deficiency anemia (81701417) Iron deficiency anemia (D50.9) Active confirmed Problem Hiatal hernia (59581297) Hiatal hernia (K44.9) Active confirmed Problem Chronic diarrhea (975846677) Chronic diarrhea (K52.9) Active confirmed Problem 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) Chronic gastritis with bleeding, unspecified gastritis type (K29.51) Active confirmed Problem Gastric ulcer (196762704) Gastric ulcer (K25.9) Active confirmed Problem Erosive gastritis (826358809430491 0) Gastritis, erosive (K29.60) Active confirmed Plan Of Treatment Future Test Test Name Order Date UPPER GI ENDOSCOPY 02/26/2014 COLONOSCOPY 02/26/2014 Insurance Providers Payer Name Payer Address Payer Phone Subscriber Number Group Number Insured Name Patient Relationship to Insured Coverage Start Date Coverage End Date MEDICARE OF [place] [address] [place] [id number] SRINIVASAN ALVARADO Self - patient is the insured [facility] SUPPLEMENTAL PLAN [address] [place] [address] [phone] [id number] SRINIVASAN ALVARADO Self - patient is the [...]
--- OUTSIDE RECORDS SUMMARY | 2025-02-21 07:04 | XMS_ITS | Encounter Summary ---
Author Organization [facility] [place] [address] Care Team Providers Care Slag Dumper Name Role Phone Leonardo aGrcía MD Primary Care Provider [phone] Encounter Details Date Type Department Care Team (Late st Contact Info) Description 06/21/2024 Lab Requisition [facility] - Main Lab [address] [facility] [place] [address] Chris Barlow MD [address] [place] [address] Encounter for other general examination Social History [...] CBC auto differential (06/21/2024 7:13 AM EST) [facility] WBC 8.0 4.8 - 10.8 K/mcL LAB HEMETOLOGY METHOD 06/21/2024 10:55 AM [facility] RBC 3.50(L) 3.80 - 4.80 M/mcL LAB HEMETOLOGY METHOD 06/21/2024 10:55 AM [facility] Hemoglobin 10.5(L) 11.5 - 16.0 g/dL LAB HEMETOLOGY METHOD 06/21/2024 10:55 AM [facility] Hematocrit 30.6(L) 35.0 - 47.0 % LAB HEMETOLOGY METHOD 06/21/2024 10:55 AM [facility] MCV 88.7 79.0 - 98.0 FL LAB HEMETOLOGY METHOD 06/21/2024 10:55 AM [facility] MCH 30.4 27.0 - 32.0 pcg LAB HEMETOLOGY METHOD 06/21/2024 10:55 AM [facility] MCHC 34.3 32.0 - 37.0 g/dL LAB HEMETOLOGY METHOD 06/21/2024 10:55 AM [facility] RDW 13.4 11.0 - 15.0 % LAB HEMETOLOGY METHOD 06/21/2024 10:55 AM [facility] Platelets 257 130 - 400 K/mcL LAB HEMETOLOGY METHOD 06/21/2024 10:55 AM [facility] MPV 9.7 7.0 - 11.0 FL LAB HEMETOLOGY METHOD 06/21/2024 10:55 AM [facility] NRBC 0.0 <1.0 % LAB HEMETOLOGY METHOD 06/21/2024 10:55 AM [facility] NRBC Absolute 0.00 <0.10 K/mcL LAB HEMETOLOGY METHOD 06/21/2024 10:55 AM [facility] Neutrophils Relative 73.2 % LAB HEMETOLOGY METHOD 06/21/2024 10:55 AM [facility] Lymphocytes Relative 16.0 % LAB HEMETOLOGY METHOD 06/21/2024 10:55 AM [facility] Monocytes Relative 7.3 % LAB HEMETOLOGY METHOD 06/21/2024 10:55 AM [facility] Eosinophils Relative 2.3 % LAB HEMETOLOGY METHOD 06/21/2024 10:55 AM [facility] Basophils Relative 0.6 % LAB HEMETOLOGY METHOD 06/21/2024 10:55 AM [facility] Immature Granulocytes Relative 0.6 % LAB HEMETOLOGY METHOD 06/21/2024 10:55 AM [facility] Neutrophils Absolute 5.84 1.50 - 7.00 K/mcL LAB HEMETOLOGY METHOD 06/21/2024 10:55 AM [facility] Lymphocytes Absolute 1.28 1.00 - 5.00 K/mcL LAB HEMETOLOGY METHOD 06/21/2024 10:55 AM [facility] Monocytes Absolute 0.58 0.20 - 1.00 K/mcL LAB HEMETOLOGY METHOD 06/21/2024 10:55 AM [facility] Eosinophils Absolute 0.18 0.00 - 0.50 K/mcL LAB HEMETOLOGY METHOD 06/21/2024 10:55 AM [facility] Basophils Absolute 0.05 0.00 - 0.20 K/mcL LAB HEMETOLOGY METHOD 06/21/2024 10:55 AM [facility] Immature Granulocytes Absolute 0.05(H) 0.00 - 0.03 K/mcL LAB HEMETOLOGY METHOD 06/21/2024 10:55 AM EST [facility] Blood Venous blood specimen / Unknown Venipuncture / Unknown 06/21/2024 7:13 AM EST 06/21/2024 10:03 AM EST us Chris Barlow MD LAB BLOOD ORDERABLES Final Resu lt Performing Organization Address City/[facility]/ZIP Co de Phone Number [facility] [address] [place] [address], [place] [phone] * (ABNORMAL) Magnesium (06/21/2024 7:13 AM EST) Magnesium 1.7(L) 1.9 - 2.6 mg/dL LAB CHEMISTRY METHOD 06/21/2024 11:21 AM EST [facility] Blood Venous blood specimen / Unknown Venipuncture / Unknown 06/21/2024 7:13 AM EST 06/21/2024 10:03 AM EST us Chris Barlow MD LAB BLOOD ORDERABLES Final Resu lt Performing Organization Address [facility]/ZIP Co de Phone Number [facility] [address] [place] [address], [place] [phone] * (ABNORMAL) Comprehensive metabolic panel (06/21/2024 7:13 AM EST) Sodium 138 133 - 145 mmol/L LAB CHEMISTRY METHOD 06/21/2024 11:50 AM EST [facility] Potassium 2.8(LL) 3.5 - 5.5 mmol/L LAB CHEMISTRY METHOD 06/21/2024 11:50 AM EST [facility] Chloride 103 96 - 110 mmol/L LAB CHEMISTRY METHOD 06/21/2024 11:50 AM EST [facility] CO2 30 21 - 32 mmol/L LAB CHEMISTRY METHOD 06/21/2024 11:50 AM [facility] Anion Gap 5 3 - 11 LAB CHEMISTRY METHOD 06/21/2024 11:50 AM [facility] Glucose 109(H) 70 - 100 mg/dL LAB CHEMISTRY METHOD 06/21/2024 11:50 AM [facility] BUN 8 5 - 25 mg/dL LAB CHEMISTRY METHOD 06/21/2024 11:50 AM [facility] Creatinine 0.62 0.50 - 1.10 mg/dL LAB CHEMISTRY METHOD 06/21/2024 11:50 AM [facility] eGFR 89 >=60 mL/min/1. 73m2 LAB CHEMISTRY METHOD 06/21/2024 11:50 AM [facility] Comment:Calculation based on the Chronic Kidney Disease Epidemiology Collaboration (CKD-EPI) equation refit without adjustment for race. BUN/Creatinine Ratio 12.9 LAB CHEMISTRY METHOD 06/21/2024 11:50 AM [facility] Calcium 8.4(L) 8.5 - 10.5 mg/dL LAB CHEMISTRY METHOD 06/21/2024 11:50 AM [facility] AST (SGOT) 71(H) 10 - 42 unit/L LAB CHEMISTRY METHOD 06/21/2024 11:50 AM [facility] ALT (SGPT) 46 10 - 60 unit/L LAB CHEMISTRY METHOD 06/21/2024 11:50 AM [facility] Alkaline Phosphatase 95 42 - 121 unit/L LAB CHEMISTRY METHOD 06/21/2024 11:50 AM [facility] Total Protein 5.6(L) 6.0 - 8.0 g/dL LAB CHEMISTRY METHOD 06/21/2024 11:50 AM [facility] Albumin 2.9(L) 3.2 - 5.0 g/dL LAB CHEMISTRY METHOD 06/21/2024 11:50 AM [facility] Total Bilirubin 0.7 0.0 - 1.4 mg/dL LAB CHEMISTRY METHOD 06/21/2024 11:50 AM EST [facility] Blood Venous blood specimen / Unknown Venipuncture / Unknown 06/21/2024 7:13 AM EST 06/21/2024 10:03 AM EST us Chris Barlow MD LAB BLOOD ORDERABLES Final Resu lt [facility] [address] [place] [address], documented in this encounter Visit Diagnoses Diagnosis Encounter for other general examination documented in this encounter Additional Health Concerns Infection Onset Date Last Indicated Resolved Time Respiratory Rule-Out 07/26/2024 07/26/2024 025 3:02 AM EST COVID-19 Rule-Out 07/26/2024 07/26/2024 07/26/2024 3:02 AM EST documented as of this encounter Care Teams Slag Dumper Relationship Specialty Start Date End Date Leonardo García MD [address] [place] [id number] PCP - General Internal Medicine 06/30/24 documented as of this encounter
--- OUTSIDE RECORDS SUMMARY | 2025-02-21 07:04 | XMS_ITS | Clinical Summary ---
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 ([facility] V24, [facility] V28) 07/18/2024 Gastro-esophageal reflux disease without esophag [...] HIP; Surgeon: Ottoniel Wells MD; Location: [facility] Service: Orthopedics; Laterality: Left; Medical History Medical History Date Comments Bronchitis, chronic ([facility] V24, [facility] V28) DX:Bronchitis, chronic ([facility]);COMMENT:May 2017 GERD (gastroesophageal reflux disease) DX:GERD (gastroesophageal [...] this topic Medical Devices Implanted Type Area Quality Systems Engineer Device Identifier Shelf Expiration Date Model / Serial / Lot Cement Bone Surg Simplex Radiopq [facility]-How [id number] Implanted:Qty: 1 on 02/16/2022 by Ottoniel Wells MD Left: Hip [employer] [id number] 05/03/2023 6191-1-010 / / [id number] Hip Head Delta Biolox 36mm-2.5 [facility] [id number] 191 Implanted:Qty: 1 on 02/16/2022 by Ottoniel Wells MD Left: Hip [employer] [id number] 11/10/2026 6570-0-436 / / [id number] Cement Bone Surg Simplex Radiopq Stry-Howm 6909-9-766-114 092 Implanted:Qty: 1 on 02/16/2022 by Ottoniel Wells MD Left: Hip [employer] [id number] 05/03/2023 6191-1-010 / / [id number] Lp Hex Screw 6.5x30mm Stry-Howm 5047-0550-8675 78 Implanted:Qty: 1 on 02/16/2022 by Ottoniel Wells MD Left: Hip [employer] [id number] 12/15/2026 4234-6202 / / [id number] Tritanium Cluster Hole Shell 52mm Stry-Howm 192-46-05s-770 473 Implanted:Qty: 1 on 02/16/2022 by Ottoniel Wells MD Left: Hip [employer] [id number] 09/28/2026 702-04-52E / / [id number] Lp Hex Screw 6.5x20mm Stry-Howm 1055-0566-5931 57 Implanted:Qty: 1 on 02/16/2022 by Ottoniel Wells MD Left: Hip [employer] [id number] 11/23/2026 2278-5543 / / [id number] Hip Insrt X3 Trident 0d 36mm E Stry-Howm 032-26-42x-200 921 Implanted:Qty: 1 on 02/16/2022 by Ottoniel Wells MD Left: Hip [employer] [id number] 09/24/2025 623-10-36E / / [id number] Hip Stm Parveen 127 #2 30 124 Stry-Howm 1041-1749v-744 932 Implanted:Qty: 1 on 02/16/2022 by Ottoniel Wells MD Left: Hip [employer] [id number] 10/21/2026 6057-0230D / / [id number] Plug Bone Sm Stry-Howm 2575-0-358-143 871 Implanted:Qty: 1 on 02/16/2022 by Ottoniel Wells MD Left: Hip [employer] [id number] 11/16/2026 6215-5-001 / / [id number] Hip Dist Spacer [facility] 0026-7113-1294 90 Implanted:Qty: 1 on 02/16/2022 by Ottoniel Wells MD Left: Hip [employer] [id number] 01/19/2027 8536-2787 / / [id number] Procedures Procedure Name Priority Date/Time Associated Diagnosis [...] LAB CHEMISTRY METHOD 07/27/2024 7:47 AM EST [facility] Comment:Calculation based on the Chronic Kidney Disease Epidemiology Collaboration (CKD-EPI) equation refit without adjustment for race. BUN/Creatinine Ratio 20.4 LAB CHEMISTRY METHOD 07/27/2024 7:47 AM EST [facility] Calcium 9.4 8.5 - 10.5 mg/dL LAB CHEMISTRY METHOD 07/27/2024 7:47 AM EST [facility]) [facility] Blood Venous blood specimen / Unknown Venipuncture / Unknown 07/27/2024 6:22 AM EST 07/27/2024 7:10 AM EST Jeannie FORMAN LAB BLOOD ORDERABLES Final Result [facility] [address] [place] [address], from Last 3 Months or Most Recently Relevant to Health Maintenance Insurance MEDICARE [facility] Advance Directives Documents on File Type Date Recorded Patient Clinical Laboratory Assistant Expl anation Health Care Decision (hx) 02/16/2022 [...] currently active code status orders. Care Teams Caustic Room Attendant Relationship Specialty Start Date End Date Leonardo García MD [address] [place] [id number] PCP - General Internal Medicine 06/30/24
--- OUTSIDE RECORDS SUMMARY | 2025-02-21 07:04 | XMS_ITS | Clinical Summary ---
Author Organization [facility] Address [address] [place] [address] Care Team Providers Care Abstractor Name Role Phone Ashleigh Grullon MD Primary Care Provider [phone] Allergies Active Allergy Reactions Criticality Noted Date Comments Ampicillin Anaphylaxis High 08/15/2017 Chloramphenicol Anaphylaxis High 08/15/2017 [place] 08/30/2017 Tape Rash Medium 08/30/2017 Paper tape, [...] MORNING AND IN THE EVENING 0 Active [place]-3 Fatty Acids (OMEGA-3 FISH OIL PO) Take [...] Immunizations Name Administration Dates Next Due Covid-19 ([employer]) Dilution Required 05/11/2021,0 08/04/2020,07/14/2020 Social History Tobacco [...] this topic Medical Devices Implanted Type Area Feather Drying Machine Operator Device Identifier Shelf Expiration Date Model / Serial / Lot Screw 6.5 X 45.Mm - [id number] - [id number] Implanted:Qty : 1 on 08/30/2017 by Emeka Lopez MD at [facility] Posterior: Spine Lumbar [employer] 1067.1645 / / 6.5 X 50mm Screw Modular Creo Amp - 961479 - [id number] Implanted:Qty : 3 on 08/30/2017 by Emeka Lopez MD at [facility] Posterior: Spine Lumbar [employer] 1067.1650 / / 5.5 Polyaxial Tulip Threaded Creo Amp - 997927 - [id number] Implanted:Qty : 4 on 08/30/2017 by Emeka Lopez MD at [facility] Posterior: Spine Lumbar [employer] 1119.0110 / / 5.5 Threaded Locking Cap Creo - 304813 - [id number] Implanted:Qty : 4 on 08/30/2017 by Emeka Lopez MD at [facility] Posterior: Spine Lumbar [employer] 1119.0010 / / 5.5mm Curved Gurpreet Titanium Alloy 40mm Length - [id number] - [id number] Implanted:Qty : 2 on 08/30/2017 by Emeka Lopez MD at [facility] Posterior: Spine Lumbar [facility] 1119.7040 / / Lp Hex Screw 6.5x20mm Stry-Howm 8337-6456-661 457 - [id number] Implanted:Qty : 1 on 02/16/2022 by Ottoniel Wells MD at [facility] Left: Hip [employer] [id number] 11/23/2026 0568-3298 / / [id number] Hip Insrt X3 Trident 0d 36mm E Stry-How 703-01-46p-20 0921 - [id number] Implanted:Qty : 1 on 02/16/2022 by Ottoniel Wells MD at [facility] Left: Hip [employer] [id number] 09/24/2025 623-10-36 E / / [id number] Hip Stm Parveen 127 #2 30 124 Stry-How 4072-6892h-88 7932 - [id number] Implanted:Qty : 1 on 02/16/2022 by Ottoniel Wells MD at [facility] Left: Hip [employer] [id number] 10/21/2026 2895-3736 D / / [id number] Plug Bone Sm Stry-How 5779-4-317-14 3871 - [id number] Implanted:Qty : 1 on 02/16/2022 by Ottoniel Wells MD at [facility] Left: Hip [employer] [id number] 11/16/2026 6215-5-00 1 / / [id number] Hip Dist Spacer [employer] #8 Stry-Howm 0123-9426-935 590 - [id number] Implanted:Qty : 1 on 02/16/2022 by Ottoniel Wells MD at [facility] Left: Hip [employer] [id number] 01/19/2027 9961-4885 / / [id number] Hip Head Delta Biolox 36mm-2.5 Stry-Howm 7871-3-065-54 9191 - [id number] Implanted:Qty : 1 on 02/16/2022 by Ottoniel Wells MD at [facility] Left: Hip [employer] [id number] 11/10/2026 6570-0-43 6 / / [id number] Cement Bone Surg Simplex Radiopq Stry-Howm 8102-5-976-11 4092 - [id number] Implanted:Qty : 1 on 02/16/2022 by Ottoniel Wells MD at [facility] Left: Hip [employer] [id number] 05/03/2023 6190-06-04 0 / / [id number] Cement Bone Surg Simplex Radiopq Stry-Howm 2128-2-289-11 4092 - [id number] Implanted:Qty : 1 on 02/16/2022 by Ottoniel Wells MD at [facility] Left: Hip [employer] [id number] 05/03/2023 6190-06-04 0 / / [id number] Lp Hex Screw 6.5x30mm Stry-Howm 8702-3062-814 478 - [id number] Implanted:Qty : 1 on 02/16/2022 by Ottoniel Wells MD at [facility] Left: Hip [employer] [id number] 12/15/2026 7400-1186 / / [id number] Tritanium Cluster Hole Shell 52mm Stry-Howm 572-61-28c-77 0473 - [id number] Implanted:Qty : 1 on 02/16/2022 by Ottoniel Wells MD at [facility] Left: Hip [employer] [id number] 09/28/2026 702-04-52 E / / [id number] Advance Directives For more information, please contact: [phone] Documents on File Type Date Recorded Patient Ocean Freight Agent Expl anation Advance Directive and Living Will [...] way: discussion with patient . Care Teams Abstractor Relationship Specialty Start Date End Date Ashleigh Grullon MD [address] [facility] [place] [place] [address] PCP - General Qc Lab Technician 01/02/22
--- OUTSIDE RECORDS SUMMARY | 2025-02-21 07:04 | XMS_ITS | Encounter Summary ---
Author Organization [facility] Address [address] [place] [address] Care Team Providers Care Residential Real Estate Appraiser Name Role Phone Leonardo García MD Primary Care Provider [phone] Encounter Details Date Type Department Care Team (Late st Contact Info) Description 07/06/[address] [facility] - Main Lab [address] [facility] [place] [phone] Chris Barlow MD [address] [place] [id number] Encounter for other general examination Social History [...] Culture urine (07/06/2024 10:07 AM EST) Pathologist [facility] Culture, Urine >100,000 CFU/mL Escherichia coli(A) JUDIE 07/08/2024 8:28 AM EST [facility] Urine Urine specimen obtained by [...] MICROBIOLOGY - GENERAL ORDE GONZALEZ Final Result [facility] [address] [place] [address], [place] [phone] * Jay urine culture tube (07/06/2024 10:07 AM EST) Extra Tube Hold for add-ons. 07/06/2024 4:01 PM [facility] Comment:Auto resulted. Urine Urine specimen obtained by clean catch procedure / Unknown 07/06/2024 10:07 AM EST 07/06/2024 2:09 PM EST us Chris Barlow MD LAB URINE ORDERABLES Final Resu lt [facility] [address] [place] [address], [place] [phone] * (ABNORMAL) Urinalysis with reflex microscopic and culture (07/06/2024 10:07 AM EST) [facility] Specific [place] Urine 1.022 1.003 - 1.030 LAB URINALYSIS - AUTOMATED METHOD 07/06/2024 3:05 PM [facility] pH, Urine 5.5 5.0 - 8.0 pH LAB URINALYSIS - AUTOMATED METHOD 07/06/2024 3:05 PM [facility] Leukocytes, Urine Large(A) Negative LAB URINALYSIS - AUTOMATED METHOD 07/06/2024 3:05 PM [facility] Nitrite, Urine Positive(A) Negative LAB URINALYSIS - AUTOMATED METHOD 07/06/2024 3:05 PM [facility] Protein, Urine Negative <=Trace mg/dL LAB URINALYSIS - AUTOMATED METHOD 07/06/2024 3:05 PM [facility] Glucose, Urine Negative Negative mg/dL LAB URINALYSIS - AUTOMATED METHOD 07/06/2024 3:05 PM [facility] Ketones, Urine Negative Negative mg/dL LAB URINALYSIS - AUTOMATED METHOD 07/06/2024 3:05 PM [facility] Urobilinogen , Urine 1.0 0.2 - 1.0 mg/dL LAB URINALYSIS - AUTOMATED METHOD 07/06/2024 3:05 PM EST [facility] Bilirubin, Urine Negative Negative LAB URINALYSIS - AUTOMATED METHOD 07/06/2024 3:05 PM EST [facility] Blood, Urine Trace(A) Negative LAB URINALYSIS - AUTOMATED METHOD 07/06/2024 3:05 PM EST [facility] Urine Urine specimen obtained by clean catch procedure / Unknown 07/06/2024 10:07 AM EST 07/06/2024 2:07 PM EST us Chris Barlow MD LAB URINE ORDERABLES Final Resu lt [facility] [address] [place] [address], documented in this encounter Visit Diagnoses Diagnosis Encounter for other general examination documented in this encounter Additional Health Concerns Infection Onset Date Last Indicated Resolved Time Respiratory Rule-Out 07/26/2024 07/26/2024 025 3:02 AM EST COVID-19 Rule-Out 07/26/2024 07/26/2024 07/26/2024 3:02 AM EST documented as of this encounter Care Teams Residential Real Estate Appraiser Relationship Specialty Start Date End Date Leonardo García MD [address] [place] [phone] PCP - General Internal Medicine 06/30/24 documented as of this encounter
[2025-02-21 11:47] LABS: Cholesterol 126 mg/dL (<200); HDL Cholesterol 43 mg/dL (>40); Triglycerides 101 mg/dL (<150)
== END 2025-02-21 07:02 | disposition home or self-care (01) ==
LOC: HO.HMGCLDS 07:01
PROVIDERS: PCP Internal Medicine; Visit Provider Internal Medicine
DX: I10 Essential (primary) hypertension (principal); E78.5 Hyperlipidemia, unspecified
CPT/HCPCS: 36415; 80061

== ENCOUNTER → 2025-02-27 23:59 | Outpatient (BNV) | payer MEDICARE, SELFPAY | PROVIDERS: PCP Internal Medicine; Visit Provider Internal Medicine | DX: F03.90 Unspecified dementia, unspecified severity, without behavioral disturbance, psychotic disturbance, mood disturbance, and anxiety (principal); I10 Essential (primary) hypertension; E46 Unspecified protein-calorie malnutrition | CPT/HCPCS: G0179 ==

== ENCOUNTER 2025-04-09 11:25 | Outpatient (AMB) | payer MEDICARE, SELFPAY ==
[2025-04-09 11:56] VITALS: BP 128/78; PULSE 82; RESP 16; TEMP 36.7; O2SAT 95; BMI 28.5
--- NOTE | 2025-04-09 11:56 | MHC.PC.OV ---
Vital Signs 04/09/25 11:56 Height 5 ft 5 in Weight 171 lb BMI 28.5 BP 128/78 Blood Pressure Location Lt brachial Position Sitting Respiration 16 Pulse 82 Pulse Source Pulse Oximeter Temp 98.0 F Temp Source Oral Pulse Oximetry (%) 95 Oxygen Delivery Method Room Air Intake Visit Reasons: Lower back Pain Intake Note: Pt is here today for a [facility] visit. Pt c/o worst lower back pain for last couple of weeks. Allergies ampicillin (AMPICILLIN) Allergy (Severe, Verified 04/09/25 11:59) swelling in face/itchy throat tetracycline (TETRACYCLINE) Allergy (Severe, Verified 02/18/25 09:54) itchy throat/swelling in face citalopram Adverse Reaction (Verified 04/09/25 11:59) vertigo Medication List - Last Reconciled 04/09/25 by Ashleigh Grullon MD amlodipine 2.5 mg PO DAILY aspirin 81 mg PO DAILY atorvastatin 40 mg PO DAILY back brace LSO brace with thoracic extension CPT 10: M41.80 CHRISTOPHER: 99 cholecalciferol (vitamin D3) 50 mcg PO DAILY cyanocobalamin (vitamin B-12) 1,000 mcg PO DAILY gabapentin 300 mg PO BID loratadine (Claritin) 10 mg PO DAILY omeprazole 40 mg PO DAILY spironolactone 25 mg PO DAILY Tobacco use date assessed: 12/04/24 Dental Screening Dental Screen Date: 08/28/24 HPI Lower back Pain HPI Details Pt presents for c/o chronic back pain getting worse when walking or standing. Pt has been ambulating with walker and has been getting home PT. Pt denies weakness or numbness in the extremities, change in BM or urination. Hypertension hyperlipidemia are controlled on current medications PFSH Medical History (Updated 04/09/25 @ 20:35 by Ashleigh Grullon MD) Low back pain Hyperlipidemia Hypersomnia Snoring Dementia Memory loss Lumbar stenosis Scoliosis (and kyphoscoliosis), idiopathic Cerebral infarction Uses roller walker Arthritis Back pain GERD (gastroesophageal reflux disease) Numbness Seasonal allergies [place] (hard of hearing) GI bleed due to NSAIDs Osteoarthritis Elevated cholesterol Hyperglycemia HTN (hypertension) Vertigo Gastritis Scoliosis (and kyphoscoliosis), idiopathic Anemia Surgical History S/P lumbar fusion Hx of spinal surgery (07/18/23) Hx of tonsillectomy History of total left knee replacement History of esophagogastroduodenoscopy (EGD) H/O colonoscopy History of lumbar laminectomy History of total left hip arthroplasty History of appendectomy H/O cataract removal with insertion of prosthetic lens Family History Father No problems noted. Mother Breast cancer Social History Household Members: Family Household Members Other:: sister Housing: Condominium Are you a primary primary care coordinator to a significant other at home: No Do you presently have visiting nurse or other home services: No Patient Tobacco Use Status: Former Tobacco user Tobacco use type: Cigarette e-Cigarette/Vaping Use: Never Used Substance Use Type: Other Advance Directives Date on File: 10/16/22 service: No Current occupational status: retired Cognitive needs: No Hearing needs: Yes Vision needs: No Questionnaire PHQ-9 Over the last 2 weeks, how often have you been bothered by any of the following problems? 1. Little interest or pleasure in doing things: not at all 2. Feeling down, depressed, or hopeless: not at all 3. Trouble falling or staying asleep, or sleeping too much: several days 4. Feeling tired or having little energy: several days 5. Poor appetite or overeating: not at all 6. Feeling bad about yourself - or that you are a failure or have let yourself or your family down: not at all 7. Trouble concentrating on things, such as reading the newspaper or watching television: several days 8. Moving or speaking so slowly that other people could have noticed. Or the opposite - being so fidgety or restless that you have been moving around a lot more than usual: not at all 9. Thoughts that you would be better off or of hurting yourself in some way: not at all Total score: 3 Depression Screening Interpretation: Negative Depression Screening Done: Yes Source: Developed by Drs. Mukesh Rice, Sravani Ramirez, Martin Padgett and colleagues, with an educational faisal from [employer]. Thrive Questionnaire Date Thrive assessed: 08/28/24 I am a: Patient What is your living situation today?: I have a steady place to live Within the past 12 months, did the food you bought not last and you didn't have the money to get more?: Never true Within the past 12 months, did you worry whether your food would run out before you got money to buy more?: Never true Do you have trouble paying for medicines?: No Do you have trouble getting transportation to medical appointments?: No Do you have trouble paying your heating and electricity bill?: No Do you have trouble taking care of your child, family member or friend?: No Do you have trouble with day-to-day activities such as bathing, preparing meals, shopping, managing finances, etc.?: No Are you currently unemployed and looking for a job?: No Are you interested in more education?: No Please select the resources that you would like help with: Care for elder or disabled Currently or been in a relationship where the following occur: I choose not to answer THRIVE Score: 0 AUDIT C Alcohol Use Questionnaire (AUDIT-C) 3. How often do you have six or more drinks on one occasion?: Never Total Score: 0 NAILA-7 AMB Questionnaire NAILA-7 Date NAILA - 7 assessed: 08/28/24 Source: Developed by Drs. Mukesh Rice, Sravani Ramirez, Martin Padgett and colleagues, with an educational faisal from [employer]. Review of Systems Const All systems reviewed & are unremarkable except as noted in HPI and below Eyes Reports no additional complaints ENT Reports no additional complaints Card Reports no additional complaints Resp Reports no additional complaints GI Reports no additional complaints Reports no additional complaints Physical exam (Primary Care) Vital Signs: Last Vital Signs Temp 98.0 F 04/09/25 11:56 Pulse 82 04/09/25 11:56 Resp 16 04/09/25 11:56 BP 128/78 04/09/25 11:56 Pulse Ox 95 04/09/25 11:56 Oxygen Delivery Method Room Air 04/09/25 11:56 BMI result Body Mass Index 28.5 Tobacco/Smoking Status: Tobacco use Status Tobacco use date assessed 12/04/24 04/09/25 12:02 Patient Tobacco Use Status Former Tobacco user 04/09/25 12:02 Tobacco use type Cigarette 04/09/25 12:02 e-Cigarette/Vaping Use Never Used 04/09/25 12:02 PHQ-9: PHQ-9 Score PHQ-9: Total score 3 04/09/25 12:54 Depression Screening Interpretation: Negative Thrive Assessment: Date of Thrive Assessment Date Thrive assessed 08/28/24 04/09/25 12:02 Currently or been in a relationship where the following occur: I choose not to answer Const General: no acute distress HENMT Head: Yes normal to inspection Face and sinus: Yes normal facial exam Resp Effort & Inspection: normal respiratory effort Auscultation: clear to auscultation bilaterally Cardio Rhythm: regular rhythm Heart sounds: S1 normal heart sound present and S2 normal heart sound present GI Inspection: Yes normal to inspection Palpation (GI): Soft to palpation Percussion: Yes normal to percussion Auscultation: normal bowel sounds Back/Spine/Pelvis Other: Decreased range of motion in lumbar spine paraspinal tenderness in lower lumbar region, strength 5/5 bilaterally Coding Level of Care Code Est Pt Level 4 (55475) Diagnoses Low back pain M54.50 HTN (hypertension) I10 Hyperlipidemia E78.5 Assessment & Plan Assessment & Plan (1) Low back pain: Comment: MR Feb 2023, spinal stenosis, multiple level disc herniations, status post lumbar fusion TH 11 through L5 June 2024, Dr. Shaw Code(s): M54.50 - Low back pain, unspecified Category: Medical Plan: Start gabapentin 200 mg twice a day. Physical therapy was recommended but patient will try home exercises. She was advised to avoid NSAIDs history of erosive gastritis and GI bleed in the past and continue omeprazole (2) HTN (hypertension): Code(s): I10 - Essential (primary) hypertension Category: Medical Plan: Continue amlodipine and spironolactone (3) Hyperlipidemia: Code(s): E78.5 - Hyperlipidemia, unspecified Category: Medical Plan: Continue statin Medications: New gabapentin 200 mg (2 x 100 mg) PO BID 120 caps 2RF
--- OUTSIDE RECORDS SUMMARY | 2025-04-09 14:21 | XMS_ITS | Data Portability ---
Author Organization [facility], Telehealth Patient Home Address [address] [place] [address] Assessment Encounter Date Assessment Date Assessment LastModified [...] None recorded. Lab lipid panel, blood 2020 [facility], [address] [place] [address], [place], [address], 13:17:16 CMP, serum or plasma 2020 [facility], [address] [place] [address], [address], 13:17:16 CBC w/ auto diff 122020 [facility], [address] [place] [address], [place], [address], 1 13:17:16 CMP, serum or plasma 2019 [facility], [address] [place] [address], [address], 0 15:24:12 CBC w/ auto diff 2019 [facility], [address] [place] [address], [address], 0 15:24:12 CMP, serum or plasma 2019 VON Not available 0 16:01:10 Referral None recorded. Procedures None recorded. Surgeries None recorded. Imaging None recorded. Medication Orders celecoxib 200 mg capsule 2021 022 VON Not available 2 11:37:31 metronidaz ole 0.75 % topical cream 2021 VON Not available 2 11:29:27 hydrochlor othiazide 25 mg tablet 2021 022 VON Not available 2 11:31:03 hydrochlor othiazide 25 mg tablet 2019 INTERFACE Not available 0 10:39:17 Patient TargetsNo targets recorded. Patient Instructions Encounter Date Encounter Id Patient Instructions Last Modified By Organization Details Last Modified Time 03/12/2020 [id number] rhythm strip, EKG* VON Not available 03/12/2020 17:29:18 Reason for Referral None Reported. Results Created Date Observation Date Name Description Value Unit Range Abnormal Flag Note LastModifiedBy Organization Detail LastModifiedTime 03/12/20 20 03/12/2020 rhyth m strip , EKG* No observ ation record ed. [facility] [address] [place], [address], 03/16/2020 09:55:12 09/02/19 21 08/31/2020 MAMMO , scree andres, digit al, bilat eral No observ ation record ed. [address] [place], [address], 09/01/2020 14:06:45 01/04/20 21 01/03/2021 XR, knee No observ ation record ed. [facility] [address] [place] [address], [address], 01/03/2021 16:03:47 09/06/19 22 09/02/2021 MAMMO , scree andres, digit al, bilat eral No observ ation record ed. [address] [place], [address], 09/05/2021 12:30:19 Result Notes None recorded. Problems Name Problem SNOMED Code Status Onset Date Resolution Date Notes Provider Name and Address Organization Details Recorded Time Essential hypertensi on 26337430 Active 2017 Not Available [facility] 0 11:57:35 Hyperchole sterolemia 81088814 Active 2017 Not Available [facility] 0 11:57:35 Gastric reflux 452923306 Active 2017 Not Available [facility] 0 11:57:35 Degenerati on of interverte bral disc 32848021 Active 2017 Not Available [facility] 0 11:57:35 Insomnia 343131695 Active 2018 Not Available [facility] 0 11:57:35 Rosacea 468514235 Active 2021 [address]ONE [address] [place], [address], [facility] 2 11:27:44 Problem Notes None recorded. Procedures Surgical History Date Name Laterality Status Provider Name and Address Organization Details Recorded Time 018 Most Recent Mammogram completed Hamida Pinedo [facility] 05/06/2019 09:57:25 04/04/2 018 laminectomy completed Brigette Cates NP, [address] [place], [address], [facility] Internal [facility] 05/01/2018 14:57:46 014 Colonoscopy completed [facility] 04/30/2018 14:53:24 Cataract Surgery completed [facility] 04/30/2018 14:51:58 complete repair of rotator cuff completed [facility] 04/30/2018 14:52:29 Appendectomy completed Brigette grullon NP, [address] [place], [address], [facility] 04/30/2018 16:37:33 tonsillectomy completed Brigette menendez NP, [address] [place], [address], [facility] 04/30/2018 16:38:54 Imaging Results None recorded. Procedure Notes None recorded. Medical Equipment None Reported. Allergies Allergen ID Allergen Name Allergen Category Reaction Reaction Severity Criticality Documentation Date Start Date Code Code System Note Provider Name and Address Organization Details Recorded Time 2553 ampicilli n medicatio n Not available Not available Not available 04/30/2018 733 RxNorm Claire Tovar [facility] 8 14:43:03 2554 tetracycl ine medicatio n Not available Not available Not available 04/30/2018 12782 [facility] 14:43:18 2555 Chloromyc etin medicatio n Not available Not available Not available 04/30/2018 66327 8 [facility] 8 14:51:28 3665 adhesive tape environme nt,medica tion rash Not available Not available 06/10/2019 [facility] 0 10:05:05 Medications Name Sig Start Date [...] completed Not Available Not Available Not Available [place] 3 02/16 completed Not Available Not Available [...] % 74 /min 158/90 mm[Hg] Lianna Combs [facility] 2 11:16:48 Date Recorded Body height Body mass index (BMI) Body weight Heart rate Oxygen saturation Oxygen saturation in Arterial blood by Pulse oximetry Systolic And Diastolic Provider Name and Address Organization Details Last Updated DateTime 0 160.02 cm 32.8 kg/m2 43223.6 7 g 78 /min 98 % 98 % 148/92 mm[Hg] Hamida [facility] 0 10:29:24 Date Recorded Body height Body mass index (BMI) Body weight Heart rate Oxygen saturation Oxygen saturation in Arterial blood by Pulse oximetry Systolic And Diastolic Provider Name and Address Organization Details Last Updated DateTime 0 160.02 cm 32.9 kg/m2 27222.8 2 g 78 /min 97 % 97 % 130/82 mm[Hg] [facility] 0 14:26:47 Date Recorded Body height Body mass index (BMI) Body weight Oxygen saturation Oxygen saturation in Arterial blood by Pulse oximetry Heart rate Systolic And Diastolic Provider Name and Address Organization Details Last Updated DateTime 1 160.02 cm 33.4 kg/m2 58886.2 4 g 97 % 97 % 83 /min 158/90 mm[Hg] Lianna Combs [facility] 1 11:28:23 Social History Question Answer Notes LastModified by Organizat ion Details LastModified Time Tobacco Smoking Status Former Smoker Not Available [facility] 04/06/2020 03:36:23 What Was The Date Of [...] virus, quadrivalent, preservative 8 completed Hamida valencia [facility] 03/12/2020 14:22:57 Influenza, split virus, quadrivalent, preservative 1 completed Lianna valencia [facility] 05/10/2021 08:45:09 COVID-19, mRNA, LNP-S, PF, 30 mcg/0.3 mL dose 1 completed Lianna valencia [facility] 05/10/2021 08:45:31 COVID-19, mRNA, LNP-S, PF, 30 mcg/0.3 mL dose 1 completed Lianna valencia [facility] 05/10/2021 08:45:46 Td(adult) unspecified formulation 9 completed Lianna valencia [facility] 05/10/2021 08:46:19 Influenza, split virus, quadrivalent, preservative 9 completed Hamida valencia [facility] 03/12/2020 14:22:57 Influenza, split virus, quadrivalent, preservative 0 completed Hamida valencia [facility] 03/12/2020 14:22:57 Past Encounters Encounter ID Performer Location Encounter Start Date Encounter Closed Date Diagnosis/Indication Diagnosis SNOMED-CT Code Diagnosis ICD10 Code Diagnosis IMO Codes Diagnosis Note [id number] Fernie Fernandes DO [facility] [address] [facility],[place] [address] 05/01/2018 13:37:32 05/01/2018 15:16:02 Essential hypertension 86451777 I10 Degenerati on of intervertebral disc 17510186 M51.9 S/P laminectom y Hypercholesterolemia 136 11291 E78.00 Decreased hearing 384892 001 H91.93 [id number] Fernie Fernandes DO [facility] [address] [facility],[place] [address] 11/01/2018 11:36:08 11/01/2018 12:10:37 Essential hypertension 62194193 I10 stable Degenerati on of intervertebral disc 43349278 M51.9 S/P laminectom y Hypercholesterolemia 136 48055 E78.00 taking lovastatin every other day - would really like to get off the med discussed diet for weight loss Insomnia G47.0 0 takes a half at bedtime to help her sleep lots of stress Body mass index 30+ - obesity 962516707 Z68.33 discussed diet strategies cutting out sugar [...] to have water and tea while fasting [id number] Fernie Fernandes DO [facility] [address] [facility] [address] 06/10/2019 09:46:55 06/10/2019 10:42:39 Essential hypertension 91409866 I10 mildly elevated d/c hctz start lisinopril 10 mg Degenerati on of intervertebral disc 00986478 M51.9 S/P laminectom y Hypercholesterolemia 136 11733 E78.00 taking lovastatin every other day - would really like to get off the med discussed diet for weight loss Insomnia G47.0 0 takes a half at bedtime to help her sleep as needed lots of stress Body mass index 30+ - obesity 971169055 Z68.33 has lost about 10 lbs! has cut back her sugar intake due to her high bs last time Gastric reflux 805378786 K21.9 Hearing loss 41002898 H9 1.93 Advance care planning 71 5532525 Z71.89 HCP - planning to re-do her will/trust and update HCP [id number] [facility] [address] [facility] [address] [address] 02/17/2020 10:22:21 02/17/2020 11:04:06 Essential hypertension 59426359 I10 will switch off losartan as patient states it makes her thirsty and dry mouth the patient would like to go back on HTCZ, will just monitor her kidney function more frequently Adult heal th examination 302957830 Z00.00 BP is elevated has been since switch from HTCZ to losartan will switch back and just watch kidneys closer never had issue with kidney function before on it Active or passive immunization 037822286 Z23 has shingle shot, old one long time ago getting flu shot at pharmacy [id number] [facility] [address] [facility] [address] [address] 03/12/2020 14:10:33 03/12/2020 15:07:44 Pre-surgery evaluation 886192599 Z01.818 based on exam and history will clear for surgery pending labs and EKG will fax EKG separately after reading results [id number] [facility] [address] [facility] 7 05/18/2020 08:44:16 05/18/2020 10:08:45 Essential hypertension 15582032 I10 BP has been stable on the HTCZ, no side effects CMP looks good as well Osteoarthritis 228621298 M19.90 improvemen t with surgery and PT, if need surgeon will clear out arthritis behind her patella [id number] [facility] [address] [facility] [address] [address] 05/13/2021 10:59:04 05/13/2021 12:18:39 Essential hypertension 98930136 I10 BP has been stable with other checks and with recheck in office Hypercholesterolemia 136 77595 E78.2 will recheck labsdiscus sed stopping as she has muscle aches with it constantly [id number] [facility] [address] [facility] [address] [address] 09/07/2021 11:09:39 09/12/2021 09:03:07 Hypercholesterolemia 53849735 E78.2 will recheck labsdiscus sed stopping as she has muscle aches with it constantly Essential hypertension 84754113 I10 BP has been stable with other checks and with recheck in office Degenerati on of intervertebral disc 84682061 M51.06 seeing PT for the next 6 weeks Insomnia 276550520 G47.0 0 stable Rosacea 626985214 L71.8 will trial a course of metronidaz ole cream for use Health Concerns Section Related Observation LastModified by Organization Detai ls LastModified Time None Recorded Concern Status LastModified by Organization Details LastModified Time None Recorded Advance Directives Directive None Recorded Payers Insurance Date Sequence Insurance Name Policy Number Policy Dotson Covered Member ID Dotson Member ID Guarantor Name 02/07/2022 2 A[employer] Crystal Holly [id number] Crystal Holly 07/11/2023 1 MEDICARE B-IN: [facility] Crystal G Bozman [id number] Crystal Bozman Notes Date Note Type Note Provider Name a nd Address Organization Details Recorded Time 0 text/html Medicare Annual Wellness VisitReported by PatientSocial/Behavio ral HistoryFor diet and nutrition, patient reportsdiscussed vitamin and supplement use,discussed portion control,discussed maintaining calcium balance, anddiscussed diet improvement. For fracture risk, patient reportsno history of fractures,no recent explained fracture,no sudden unexplained fractures, andno previous musculoskeletal injuries. For physical activity, patient reportsexercises on a regular basis,discussed weightbearing activities, anddiscussed exercise habits.Mental Status:For depression risk, patient reportsnever feels sad, empty, or tearful,no loss of interest in activities,no significant changes in weight,no sleep disturbances or insomnia,no agitation,no loss of energy,no feelings of worthlessness or guilt,no thoughts of suicide,no history of depression, andno history of mood disorders. For orientation, patient reportsno disorientation to time,no disorientation to date, andno disorientation to place. For concentration and memory, patient reportsno decreased concentrating ability,no memory lapses or loss, anddoes not forget words. For speech/motor difficulties, patient reportsno speech difficulties,no difficulty expressing formulated concepts,no difficulty with fine manipulative tasks,no difficulty writing/copying,no slowed reaction time, anddoes not knock things over when trying to pick them up.Functional AbilityFor hearing, patient reportswears hearing aids. For vision, patient reportsno vision problems. For activities of daily living, patient reportsable to bathe with limited or no assistance,able to contol urination and bowels,able to dress with limited or no assistance,able to feed self with limited or no assistance,able to get out of chair or bed with limited or no assistance,able to groom with limited or no assistance, andable to toilet with limited or no assistance. For instrumental activities of daily living, patient reportsable to do house work with limited or no assistance,able to grocery shop with limited or no assistance,able to manage medications with limited or no assistance,able to manage money with limited or no assistance,able to prepare meals with limited or no assistance, andable to use the phone with limited or no assistance. For falls risk assessment, patient reportsfall(s) in the past year 1. For home safety, patient reportsno unsafe ernst hazzards,no unsafe stairs,no unsafe gas appliances,working smoke/co detectors,wears protective head gear for biking/high velocity,use of seatbelts,no vision or hearing loss while driving,no fire arms,has hand bars in the bathroom/shower, andgood lighting in the home. DICKSON STONE [address] [place] [address], [address], [facility] 02/17/2020 10:47:42 0 text/html Pre-OpReported by PatientHPIFor risk factors, patient reportsno cognitive impairment,no functional impairment,no malnutrition,no frailty,able to climb a flight of stairs (exercise capacity>4 mets),no obstructive sleep apnea,non-smoker,no alcohol misuse,no illicit drug use,no chronic cardiopulmonary condition, andnot obese. For anesthesia hx, patient reportsno hx of anesthesia complications,no allergy to anesthetic agents, andno family history of anesthesia complications. For functional ability, patient reportsable to walk up stairs,able to perform heavy work around the house,no difficulty walking up hills, andable to walk 4 mph. For post-op support, patient reportsadequate assistance at home. For surgery to be performed, (left knee arthroscopy dr. larson, [place] [facility] DICKSON STONE [address] [place], [address], [facility] 03/12/2020 15:56:29 0 text/html ROS as noted in the HPI 3 mo fu the patient reports that [...] sore throat, no fatigue DICKSON STONE [address] [place], [address], [facility] 05/18/2020 10:08:45 1 text/html ROS as noted in the HPI medication fu TKR: the patient reports that [...] to her side effects DICKSON STONE [address] [place], [address], [facility] 05/13/2021 11:43:58 2 text/html ROS as noted in the HPI medication f/u fall risk assessment: per A&P [...] questions and concerns answered today DICKSON STONE [address] [place] [address], [place], [address], [facility] 09/07/2021 11:39:36 OBGyn Episode No OBEpisode recorded.
--- OUTSIDE RECORDS SUMMARY | 2025-04-09 14:21 | XMS_ITS | Clinical Summary ---
Author Organization [facility] Address [address] [place] [address] Care Team Providers Care Tongue Stitcher Name Role Phone Ashleigh Grullon MD Primary Care Provider [phone] Allergies Active Allergy Reactions Criticality Noted Date Comments Ampicillin Anaphylaxis High 08/15/2017 Chloramphenicol Anaphylaxis High 08/15/2017 [place] 08/30/2017 Tape Rash Medium 08/30/2017 Paper tape, [...] MORNING AND IN THE EVENING 0 Active [place]-3 Fatty Acids (OMEGA-3 FISH OIL PO) Take [...] Immunizations Name Administration Dates Next Due Covid-19 ([employer]) Dilution Required 05/11/2021,0 08/04/2020,07/14/2020 Social History Tobacco [...] this topic Medical Devices Implanted Type Area Joy Loader Device Identifier Shelf Expiration Date Model / Serial / Lot Screw 6.5 X 45.Mm - [id number] - [id number] Implanted:Qty : 1 on 08/30/2017 by Emeka Lopez MD at [facility] Posterior: Spine Lumbar [employer] 1067.1645 / / 6.5 X 50mm Screw Modular Creo Amp - 088407 - [id number] Implanted:Qty : 3 on 08/30/2017 by Emeka Lopez MD at [facility] Posterior: Spine Lumbar [employer] 1067.1650 / / 5.5 Polyaxial Tulip Threaded Creo Amp - 229262 - [id number] Implanted:Qty : 4 on 08/30/2017 by Emeka Lopez MD at [facility] Posterior: Spine Lumbar [employer] 1119.0110 / / 5.5 Threaded Locking Cap Creo - 116729 - [id number] Implanted:Qty : 4 on 08/30/2017 by Emeka Lopez MD at [facility] Posterior: Spine Lumbar [employer] 1119.0010 / / 5.5mm Curved Gurpreet Titanium Alloy 40mm Length - 028748 - [id number] Implanted:Qty : 2 on 08/30/2017 by Emeka Lopez MD at [facility] Posterior: Spine Lumbar [employer] 1119.7040 / / Lp Hex Screw 6.5x20mm Stry-Howm 0457-7441-233 457 - [id number] Implanted:Qty : 1 on 02/16/2022 by Ottoniel Wells MD at [facility] Left: Hip [employer] [id number] 11/23/2026 3804-6330 / / [id number] Hip Insrt X3 Trident 0d 36mm E Stry-How 076-25-43v-20 0921 - [id number] Implanted:Qty : 1 on 02/16/2022 by Ottoniel Wells MD at [facility] Left: Hip [employer] [id number] 09/24/2025 623-10-36 E / / [id number] Hip Stm Parveen 127 #2 30 124 Stry-How 8601-1399p-12 7932 - [id number] Implanted:Qty : 1 on 02/16/2022 by Ottoniel Wells MD at [facility] Left: Hip [employer] [id number] 10/21/2026 8889-2556 D / / [id number] Plug Bone Sm Stry-How 9852-2-716-14 3871 - [id number] Implanted:Qty : 1 on 02/16/2022 by Ottoniel Wells MD at [facility] Left: Hip [employer] [id number] 11/16/2026 6215-5-00 1 / / [id number] E Hip Dist Spacer Ostnc Univ #8 Stry-Howm 5326-7535-811 590 - [id number] Implanted:Qty : 1 on 02/16/2022 by Ottoniel Wells MD at [facility] Left: Hip [employer] [id number] 01/19/2027 0082-3954 / / [id number] Hip Head Delta Biolox 36mm-2.5 Stry-Howm 2945-0-786-54 9191 - [id number] Implanted:Qty : 1 on 02/16/2022 by Ottoniel Wells MD at [facility] Left: Hip [employer] [id number] 11/10/2026 6570-0-43 6 / / [id number] Cement Bone Surg Simplex Radiopq Stry-Howm 3296-3-711-11 4092 - [id number] Implanted:Qty : 1 on 02/16/2022 by Ottoniel Wells MD at [facility] Left: Hip [employer] [id number] 05/03/2023 6190-06-04 0 / / [id number] Cement Bone Surg Simplex Radiopq Stry-Howm 6799-2-678-11 4092 - [id number] Implanted:Qty : 1 on 02/16/2022 by Ottoniel Wells MD at [facility] Left: Hip [employer] [facility] [id number] 05/03/2023 6190-06-04 0 / / [id number] Lp Hex Screw 6.5x30mm Stry-Howm 7316-7376-453 478 - [id number] Implanted:Qty : 1 on 02/16/2022 by Ottoniel Wells MD at [facility] Left: Hip [employer] [id number] 12/15/2026 4880-9685 / / [id number] Tritanium Cluster Hole Shell 52mm Stry-Howm 866-74-13x-77 0473 - [id number] Implanted:Qty : 1 on 02/16/2022 by Ottoniel Wells MD at [facility] Left: Hip [employer] [facility] [id number] 09/28/2026 702-04-52 E / / [id number] Advance Directives For more information, please contact: [phone] Documents on File Type Date Recorded Patient Slip Cover Estimator Expl anation Advance Directive and Living Will [...] way: discussion with patient . Care Teams Tongue Stitcher Relationship Specialty Start Date End Date Ashleigh Grullon MD [address] [facility] [place] [place] [address] PCP - General Wool Brusher 01/02/22
--- OUTSIDE RECORDS SUMMARY | 2025-04-09 14:21 | XMS_ITS | Clinical Summary ---
Author Organization [facility] Address [address] [place] [address] Care Team Providers Care Flame Hardening Machine Operator Name Role Phone Unavailable Primary Care [...] es 65 and older) 2007 RSV Vaccine 50 years and old er and Patients (1 - 1-dose 75+ series) 2017 Influenza Vaccine 01/02/2025 COVID-19 Vaccine ( - 2023-2 5 season) 2025 Hepatitis B Vaccines Aged Out No long er eligible based on patient's age to complete this topic Insurance MEDICARE PART A & B
== END 2025-04-09 17:05 | disposition home or self-care (01) ==
LOC: HO.HMCC 11:25
PROVIDERS: PCP Internal Medicine; Visit Provider Internal Medicine
DX: M54.50 Low back pain, unspecified (principal); I10 Essential (primary) hypertension; E78.5 Hyperlipidemia, unspecified

== ENCOUNTER → 2025-04-09 11:25 | Outpatient (BNVA) | payer MEDICARE, SELFPAY | PROVIDERS: PCP Internal Medicine; Visit Provider Internal Medicine | DX: M54.50 Low back pain, unspecified (principal); E78.5 Hyperlipidemia, unspecified; I10 Essential (primary) hypertension | CPT/HCPCS: 99212 ==

== ENCOUNTER → 2025-04-22 09:25 | Outpatient (REF) | payer MEDICARE, SELFPAY ==
--- OUTSIDE RECORDS SUMMARY | 2025-04-22 17:20 | XMS_ITS | Encounter Summary ---
Author Organization [facility] [place] [address] Care Team Providers Care Project Development Manager Name Role Phone Leonardo García MD Primary Care Provider [phone] Encounter Details Date Type Department Care Team (Late st Contact Info) Description 06/23/2024 Lab Requisition [facility] - Main Lab [address] [facility] [place] [phone] Chris Barlow MD [address] [place] [address] Encounter for other general examination Social History Tobacco Use Types Packs/Day Years Used Date Smoking Tobacco: Former Cigarettes 0 Q uit: 06/04/1961 Smokeless Tobacco: Never Alcohol [...] * Magnesium (06/23/2024 5:46 AM EST) Pathologist [facility] Magnesium 2.1 1.9 - 2.6 mg/dL LAB CHEMISTRY METHOD 06/23/2024 12:[address] [facility] Blood Venous blood specimen / Unknown Venipuncture / Unknown 06/23/2024 5:46 AM EST 06/23/2024 10:54 AM EST us Chris Barlow MD LAB BLOOD ORDERABLES Final Resu lt [facility] [address] [place] [address], [place] [phone] * (ABNORMAL) Basic metabolic panel (06/23/2024 5:46 AM EST) Pathologist [facility] Sodium 137 133 - 145 mmol/L [...] LAB CHEMISTRY METHOD 06/23/2024 12:24 PM EST [facility] Comment:Calculation based on the Chronic Kidney Disease Epidemiology Collaboration (CKD-EPI) equation refit without adjustment for race. BUN/Creatinine Ratio 27.7 LAB CHEMISTRY METHOD 06/23/2024 12:24 PM EST [facility] Calcium 8.4(L) 8.5 - 10.5 mg/dL LAB CHEMISTRY METHOD 06/23/2024 12:24 PM EST [facility] Blood Venous blood specimen / Unknown Venipuncture / Unknown 06/23/2024 5:46 AM EST 06/23/2024 10:54 AM EST us Chris Barlow MD LAB BLOOD ORDERABLES Final Resu lt [facility] [address] [place] [address], documented in this encounter Visit Diagnoses Diagnosis Encounter for other general examination documented in this encounter Additional Health Concerns Infection Onset Date Last Indicated Resolved Time Respiratory Rule-Out 07/26/2024 07/26/2024 025 3:02 AM EST COVID-19 Rule-Out 07/26/2024 07/26/2024 07/26/2024 3:02 AM EST documented as of this encounter Care Teams Project Development Manager Relationship Specialty Start Date End Date Leonardo García MD [address] [place] [id number] PCP - General Internal Medicine 06/30/24 documented as of this encounter
--- OUTSIDE RECORDS SUMMARY | 2025-04-22 17:20 | XMS_ITS | Encounter Summary ---
Author Organization [facility] Address [address] [place] [address] Care Team Providers Care Accountant Auditor Name Role Phone Leonardo García MD Primary Care Provider [phone] Encounter Details Date Type Department Care Team (Late st Contact Info) Description 06/29/2024 Lab Requisition [facility] - Main Lab [address] [facility] [place] [address] Chris Barlow MD [address] [place] [address] Encounter for other general examination Social History [...] CBC auto differential (06/29/2024 5:48 AM EST) [facility] WBC 9.9 4.8 - 10.8 K/mcL LAB HEMETOLOGY METHOD 06/29/2024 10:26 AM [facility] RBC 3.60(L) 3.80 - 4.80 M/mcL LAB HEMETOLOGY METHOD 06/29/2024 10:26 AM [facility] Hemoglobin 11.2(L) 11.5 - 16.0 g/dL LAB HEMETOLOGY METHOD 06/29/2024 10:26 AM [facility] Hematocrit 33.3(L) 35.0 - 47.0 % LAB HEMETOLOGY METHOD 06/29/2024 10:26 AM [facility] MCV 93.0 79.0 - 98.0 FL LAB HEMETOLOGY METHOD 06/29/2024 10:26 AM [facility] MCH 31.3 27.0 - 32.0 pcg LAB HEMETOLOGY METHOD 06/29/2024 10:26 AM [facility] MCHC 33.6 32.0 - 37.0 g/dL LAB HEMETOLOGY METHOD 06/29/2024 10:26 AM [facility] RDW 13.8 11.0 - 15.0 % LAB HEMETOLOGY METHOD 06/29/2024 10:26 AM [facility] Platelets 373 130 - 400 K/mcL LAB HEMETOLOGY METHOD 06/29/2024 10:26 AM [facility] MPV 9.4 7.0 - 11.0 FL LAB HEMETOLOGY METHOD 06/29/2024 10:26 AM [facility] NRBC 0.0 <1.0 % LAB HEMETOLOGY METHOD 06/29/2024 10:26 AM [facility] NRBC Absolute 0.00 <0.10 K/mcL LAB HEMETOLOGY METHOD 06/29/2024 10:26 AM [facility] Neutrophils Relative 64.0 % LAB HEMETOLOGY METHOD 06/29/2024 10:26 AM [facility] Lymphocytes Relative 25.2 % LAB HEMETOLOGY METHOD 06/29/2024 10:26 AM [facility] Monocytes Relative 7.8 % LAB HEMETOLOGY METHOD 06/29/2024 10:26 AM [facility] Eosinophils Relative 2.0 % LAB HEMETOLOGY METHOD 06/29/2024 10:26 AM [facility] Basophils Relative 0.4 % LAB HEMETOLOGY METHOD 06/29/2024 10:26 AM [facility] Immature Granulocytes Relative 0.6 % LAB HEMETOLOGY METHOD 06/29/2024 10:26 AM [facility] Neutrophils Absolute 6.31 1.50 - 7.00 K/mcL LAB HEMETOLOGY METHOD 06/29/2024 10:26 AM [facility] Lymphocytes Absolute 2.49 1.00 - 5.00 K/mcL LAB HEMETOLOGY METHOD 06/29/2024 10:26 AM [facility] Monocytes Absolute 0.77 0.20 - 1.00 K/mcL LAB HEMETOLOGY METHOD 06/29/2024 10:26 AM [facility] Eosinophils Absolute 0.20 0.00 - 0.50 K/mcL LAB HEMETOLOGY METHOD 06/29/2024 10:26 AM [facility] Basophils Absolute 0.04 0.00 - 0.20 K/mcL LAB HEMETOLOGY METHOD 06/29/2024 10:26 AM [facility] Immature Granulocytes Absolute 0.06(H) 0.00 - 0.03 K/mcL LAB HEMETOLOGY METHOD 06/29/2024 10:26 AM EST [facility] Blood Venous blood specimen / Unknown Venipuncture / Unknown 06/29/2024 5:48 AM EST 06/29/2024 8:27 AM EST Chris Barlow MD LAB BLOOD ORDERABLES Final Resu lt Performing Organization Address City/[facility]/ZIP Co de Phone Number [facility] [address] [place] [address], [place] [phone] * Magnesium (06/29/2024 5:48 AM EST) [facility] Magnesium 2.2 1.9 - 2.6 mg/dL LAB CHEMISTRY METHOD 06/29/2024 10:10 AM EST [facility] Blood Venous blood specimen / Unknown Venipuncture / Unknown 06/29/2024 5:48 AM EST 06/29/2024 8:27 AM EST us Chris Balrow MD LAB BLOOD ORDERABLES Final Resu lt Performing Organization Address City/[facility]/ZIP Co de Phone Number [facility] [address] [place] [address], [place] [phone] * (ABNORMAL) Comprehensive metabolic panel (06/29/2024 5:48 AM EST) Pathologist [facility] Sodium 134 133 - 145 mmol/L LAB CHEMISTRY METHOD 06/29/2024 10:10 AM EST [facility] Potassium 3.7 3.5 - 5.5 mmol/L LAB CHEMISTRY METHOD 06/29/2024 10:10 AM EST [facility] Chloride 100 96 - 110 mmol/L LAB CHEMISTRY METHOD 06/29/2024 10:10 AM EST [facility] CO2 29 21 - 32 mmol/L LAB CHEMISTRY METHOD 06/29/2024 10:10 AM EST [facility] Anion Gap 5 3 - 11 LAB CHEMISTRY METHOD 06/29/2024 10:10 AM [facility] Glucose 86 70 - 100 mg/dL LAB CHEMISTRY METHOD 06/29/2024 10:10 AM [facility] BUN 18 5 - 25 mg/dL LAB CHEMISTRY METHOD 06/29/2024 10:10 AM [facility] Creatinine 0.66 0.50 - 1.10 mg/dL LAB CHEMISTRY METHOD 06/29/2024 10:10 AM [facility] eGFR 88 >=60 mL/min/1. 73m2 LAB CHEMISTRY METHOD 06/29/2024 10:10 AM [facility] Comment:Calculation based on the Chronic Kidney Disease Epidemiology Collaboration (CKD-EPI) equation refit without adjustment for race. BUN/Creatinine Ratio 27.3 LAB CHEMISTRY METHOD 06/29/2024 10:10 AM [facility] Calcium 8.9 8.5 - 10.5 mg/dL LAB CHEMISTRY METHOD 06/29/2024 10:10 AM [facility] AST (SGOT) 36 10 - 42 unit/L LAB CHEMISTRY METHOD 06/29/2024 10:10 AM [facility] ALT (SGPT) 69(H) 10 - 60 unit/L LAB CHEMISTRY METHOD 06/29/2024 10:10 AM [facility] Alkaline Phosphatase 141(H) 42 - 121 unit/L LAB CHEMISTRY METHOD 06/29/2024 10:10 AM [facility] Total Protein 5.9(L) 6.0 - 8.0 g/dL LAB CHEMISTRY METHOD 06/29/2024 10:10 AM [facility] Albumin 3.2 3.2 - 5.0 g/dL LAB CHEMISTRY METHOD 06/29/2024 10:10 AM [facility] Total Bilirubin 0.8 0.0 - 1.4 mg/dL LAB CHEMISTRY METHOD 06/29/2024 10:10 AM EST [facility] Blood Venous blood specimen / Unknown Venipuncture / Unknown 06/29/2024 5:48 AM EST 06/29/2024 8:27 AM EST us Chris Barlow MD LAB BLOOD ORDERABLES Final Resu lt [facility] [address] [place] [address], documented in this encounter Visit Diagnoses Diagnosis Encounter for other general examination documented in this encounter Additional Health Concerns Infection Onset Date Last Indicated Resolved Time Respiratory Rule-Out 07/26/2024 07/26/2024 025 3:02 AM EST COVID-19 Rule-Out 07/26/2024 07/26/2024 07/26/2024 3:02 AM EST documented as of this encounter Care Teams Accountant Auditor Relationship Specialty Start Date End Date Leonardo García MD [address] [place] [id number] PCP - General Internal Medicine 06/30/24 documented as of this encounter
--- OUTSIDE RECORDS SUMMARY | 2025-04-22 17:20 | XMS_ITS | Encounter Summary ---
Author Organization [facility] Address [address] [place] [address] Care Team Providers Care Forging Press Lever Tender Name Role Phone Leonardo García MD Primary Care Provider [phone] Encounter Details Date Type Department Care Team (Late st Contact Info) Description 07/07/2024 Lab Requisition [facility] - Main Lab [address] [facility] [place] [phone] Chris Barlow MD [address] [place] [address] Encounter for other general examination Social History [...] CBC auto differential (07/07/2024 6:34 AM EST) [facility] WBC 6.0 4.8 - 10.8 K/mcL LAB HEMETOLOGY METHOD 07/07/2024 10:40 AM [facility] RBC 3.20(L) 3.80 - 4.80 M/mcL LAB HEMETOLOGY METHOD 07/07/2024 10:40 AM [facility] Hemoglobin 10.1(L) 11.5 - 16.0 g/dL LAB HEMETOLOGY METHOD 07/07/2024 10:40 AM [facility] Hematocrit 30.7(L) 35.0 - 47.0 % LAB HEMETOLOGY METHOD 07/07/2024 10:40 AM [facility] MCV 94.8 79.0 - 98.0 FL LAB HEMETOLOGY METHOD 07/07/2024 10:40 AM [facility] MCH 31.2 27.0 - 32.0 pcg LAB HEMETOLOGY METHOD 07/07/2024 10:40 AM [facility] MCHC 32.9 32.0 - 37.0 g/dL LAB HEMETOLOGY METHOD 07/07/2024 10:40 AM [facility] RDW 14.2 11.0 - 15.0 % LAB HEMETOLOGY METHOD 07/07/2024 10:40 AM [facility] Platelets 415(H) 130 - 400 K/mcL LAB HEMETOLOGY METHOD 07/07/2024 10:40 AM [facility] MPV 9.2 7.0 - 11.0 FL LAB HEMETOLOGY METHOD 07/07/2024 10:40 AM [facility] NRBC 0.0 <1.0 % LAB HEMETOLOGY METHOD 07/07/2024 10:40 AM [facility] NRBC Absolute 0.00 <0.10 K/mcL LAB HEMETOLOGY METHOD 07/07/2024 10:40 AM [facility] Neutrophils Relative 57.2 % LAB HEMETOLOGY METHOD 07/07/2024 10:40 AM [facility] Lymphocytes Relative 25.4 % LAB HEMETOLOGY METHOD 07/07/2024 10:40 AM [facility] Monocytes Relative 12.5 % LAB HEMETOLOGY METHOD 07/07/2024 10:40 AM [facility] Eosinophils Relative 3.8 % LAB HEMETOLOGY METHOD 07/07/2024 10:40 AM [facility] Basophils Relative 0.8 % LAB HEMETOLOGY METHOD 07/07/2024 10:40 AM [facility] Immature Granulocytes Relative 0.3 % LAB HEMETOLOGY METHOD 07/07/2024 10:40 AM [facility] Neutrophils Absolute 3.42 1.50 - 7.00 K/mcL LAB HEMETOLOGY METHOD 07/07/2024 10:40 AM [facility] Lymphocytes Absolute 1.52 1.00 - 5.00 K/mcL LAB HEMETOLOGY METHOD 07/07/2024 10:40 AM [facility] Monocytes Absolute 0.75 0.20 - 1.00 K/mcL LAB HEMETOLOGY METHOD 07/07/2024 10:40 AM [facility] Eosinophils Absolute 0.23 0.00 - 0.50 K/mcL LAB HEMETOLOGY METHOD 07/07/2024 10:40 AM [facility] Basophils Absolute 0.05 0.00 - 0.20 K/mcL LAB HEMETOLOGY METHOD 07/07/2024 10:40 AM [facility] Immature Granulocytes Absolute 0.02 0.00 - 0.03 K/mcL LAB HEMETOLOGY METHOD 07/07/2024 10:40 AM [facility] Blood Venous blood specimen / Unknown Venipuncture / Unknown 07/07/2024 6:34 AM EST 07/07/2024 9:05 AM EST us Chris Barlow MD LAB BLOOD ORDERABLES Final Resu lt [facility] [address] [place] [address], * Basic metabolic panel (07/07/2024 6:34 AM EST) Sodium 135 133 - 145 mmol/L LAB CHEMISTRY METHOD 07/07/2024 11:20 AM [facility] Potassium 4.2 3.5 - 5.5 mmol/L LAB CHEMISTRY METHOD 07/07/2024 11:20 AM [facility] Chloride 100 96 - 110 mmol/L LAB CHEMISTRY METHOD 07/07/2024 11:20 AM [facility] CO2 28 21 - 32 mmol/L LAB CHEMISTRY METHOD 07/07/2024 11:20 AM [facility] Anion Gap 7 3 - 11 LAB CHEMISTRY METHOD 07/07/2024 11:20 AM [facility] Glucose 92 70 - 100 mg/dL LAB CHEMISTRY METHOD 07/07/2024 11:20 AM [facility] BUN 19 5 - 25 mg/dL LAB CHEMISTRY METHOD 07/07/2024 11:20 AM [facility] Creatinine 0.70 0.50 - 1.10 mg/dL LAB CHEMISTRY METHOD 07/07/2024 11:20 AM [facility] eGFR 86 >=60 mL/min/1. 73m2 LAB CHEMISTRY METHOD 07/07/2024 11:20 AM [facility] Comment:Calculation based on the Chronic Kidney Disease Epidemiology Collaboration (CKD-EPI) equation refit without adjustment for race. BUN/Creatinine Ratio 27.1 LAB CHEMISTRY METHOD 07/07/2024 11:20 AM EST [facility] Calcium 9.0 8.5 - 10.5 mg/dL LAB CHEMISTRY METHOD 07/07/2024 11:20 AM EST [facility] Blood Venous blood specimen / Unknown Venipuncture / Unknown 07/07/2024 6:34 AM EST 07/07/2024 9:05 AM EST us Chris Barlow MD LAB BLOOD ORDERABLES Final Resu lt [facility] [address] [place] [address], documented in this encounter Visit Diagnoses Diagnosis Encounter for other general examination documented in this encounter Additional Health Concerns Infection Onset Date Last Indicated Resolved Time Respiratory Rule-Out 07/26/2024 07/26/2024 025 3:02 AM EST COVID-19 Rule-Out 07/26/2024 07/26/2024 07/26/2024 3:02 AM EST documented as of this encounter Care Teams Forging Press Lever Tender Relationship Specialty Start Date End Date Leonardo García MD [address] [place] [id number] PCP - General Internal Medicine 06/30/24 documented as of this encounter
--- OUTSIDE RECORDS SUMMARY | 2025-04-22 17:20 | XMS_ITS | Data Portability ---
Author Organization [facility], Telehealth Patient Home Address [address] [place] [address] Assessment Encounter Date Assessment Date Assessment LastModified [...] None recorded. Lab lipid panel, blood 2020 [facility], [address] [place] [address], [place], [address], 13:17:16 CMP, serum or plasma 2020 [facility], [address] [place] [address], [address], 13:17:16 CBC w/ auto diff 122020 [facility], [address] [place] [address], [place], [address], 1 13:17:16 CMP, serum or plasma 2019 [facility], [address] [place] [address], [address], 0 15:24:12 CBC w/ auto diff 2019 [facility], [address] [place] [address], [address], 0 15:24:12 CMP, serum or plasma 2019 [...] By Organization Details Last Modified Time 03/12/2020 51532 rhythm strip, EKG* VON Not available 03/12/2020 17:29:18 Reason for Referral None Reported. Results Created Date Observation Date Name Description Value Unit Range Abnormal Flag Note LastModifiedBy Organization Detail LastModifiedTime 03/12/20 20 03/12/2020 rhyth m strip , EKG* No observ ation record ed. [facility] [address] [place], [address], 03/16/2020 09:55:12 09/02/19 21 08/31/2020 MAMMO , scree andres, digit al, bilat eral No observ ation record ed. [address] [place], [address], 09/01/2020 14:06:45 01/04/20 21 01/03/2021 XR, knee No observ ation record ed. [facility] [address] [place] [address], [address], 01/03/2021 16:03:47 09/06/19 22 09/02/2021 MAMMO , scree andres, digit al, bilat eral No observ ation record ed. [address] [place], [address], 09/05/2021 12:30:19 Result Notes None recorded. Problems Name Problem SNOMED Code Status Onset Date Resolution Date Notes Provider Name and Address Organization Details Recorded Time Essential hypertensi on 53461769 Active 2017 Not Available [facility] 0 11:57:35 Hyperchole sterolemia 67645228 Active 2017 Not Available [facility] 0 11:57:35 Gastric reflux 844536265 Active 2017 Not Available [facility] 0 11:57:35 Degenerati on of interverte bral disc 26610867 Active 2017 Not Available [facility] 0 11:57:35 Insomnia 466652044 Active 2018 Not Available [facility] 0 11:57:35 Rosacea 563990269 Active 2021 [facility] [address] [address] [place], [address], [facility] 2 11:27:44 Problem Notes None recorded. Procedures Surgical History Date Name Laterality Status Provider Name and Address Organization Details Recorded Time 018 Most Recent Mammogram completed Hamida Pinedo [facility] 05/06/2019 09:57:25 04/04/2 018 laminectomy completed Brigette Cates NP, [address] [place], [address], [facility] Internal [facility] 05/01/2018 14:57:46 014 Colonoscopy completed [facility] 04/30/2018 14:53:24 Cataract Surgery completed [facility] 04/30/2018 14:51:58 complete repair of rotator cuff completed [facility] 04/30/2018 14:52:29 Appendectomy completed Brigette grullon NP, [address] [place], [address], [facility] 04/30/2018 16:37:33 tonsillectomy completed Brigette menendez NP, [address] [place], [address], [facility] 04/30/2018 16:38:54 Imaging Results None recorded. Procedure Notes None recorded. Medical Equipment None Reported. Allergies Allergen ID Allergen Name Allergen Category Reaction Reaction Severity Criticality Documentation Date Start Date Code Code System Note Provider Name and Address Organization Details Recorded Time 2553 ampicilli n medicatio n Not available Not available Not available 04/30/[address] [facility] 8 14:43:03 2554 tetracycl ine medicatio n Not available Not available Not available 04/30/2018 10004 [facility] 14:43:18 2555 Chloromyc etin medicatio n Not available Not available Not available 04/30/2018 54260 8 [facility] 8 14:51:28 3665 adhesive tape environme nt,medica tion rash Not available Not available 06/10/2019 [facility] 0 10:05:05 Medications Name Sig Start [...] completed Not Available Not Available Not Available [place] 3 02/16 completed Not Available Not Available [...] % 74 /min 158/90 mm[Hg] Lianna Combs [facility] 2 11:16:48 Date Recorded Body height Body mass index (BMI) Body weight Heart rate Oxygen saturation Oxygen saturation in Arterial blood by Pulse oximetry Systolic And Diastolic Provider Name and Address Organization Details Last Updated DateTime 0 160.02 cm 32.8 kg/m2 57117.6 7 g 78 /min 98 % 98 % 148/92 mm[Hg] Hamida [facility] 0 10:29:24 Date Recorded Body height Body mass index (BMI) Body weight Heart rate Oxygen saturation Oxygen saturation in Arterial blood by Pulse oximetry Systolic And Diastolic Provider Name and Address Organization Details Last Updated DateTime 0 160.02 cm 32.9 kg/m2 62943.8 2 g 78 /min 97 % 97 % 130/82 mm[Hg] [facility] 0 14:26:47 Date Recorded Body height Body mass index (BMI) Body weight Oxygen saturation Oxygen saturation in Arterial blood by Pulse oximetry Heart rate Systolic And Diastolic Provider Name and Address Organization Details Last Updated DateTime 1 160.02 cm 33.4 kg/m2 14782.2 4 g 97 % 97 % 83 /min 158/90 mm[Hg] Lianna Combs [facility] 1 11:28:23 Social History Question Answer Notes LastModified by Organizat ion Details LastModified Time Tobacco Smoking Status Former Smoker Not Available [facility] 04/06/2020 03:36:23 What Was The Date Of [...] virus, quadrivalent, preservative 8 completed Hamida valencia [facility] 03/12/2020 14:22:57 Influenza, split virus, quadrivalent, preservative 1 completed Lianna valencia [facility] 05/10/2021 08:45:09 COVID-19, mRNA, LNP-S, PF, 30 mcg/0.3 mL dose 1 completed Lianna valencia [facility] 05/10/2021 08:45:31 COVID-19, mRNA, LNP-S, PF, 30 mcg/0.3 mL dose 1 completed Lianna valencia [facility] 05/10/2021 08:45:46 Td(adult) unspecified formulation 9 completed Lianna valencia [facility] 05/10/2021 08:46:19 Influenza, split virus, quadrivalent, preservative 9 completed Hamida valencia [facility] 03/12/2020 14:22:57 Influenza, split virus, quadrivalent, preservative 0 completed Hamida valencia [facility] 03/12/2020 14:22:57 Past Encounters Encounter ID Performer Location Encounter Start Date Encounter Closed Date Diagnosis/Indication Diagnosis SNOMED-CT Code Diagnosis ICD10 Code Diagnosis IMO Codes Diagnosis Note [id number] Fernie Fernandes DO [facility] [address] [facility],[place] [address] 05/01/2018 13:37:32 05/01/2018 15:16:02 Essential hypertension 66675664 I10 Degenerati on of intervertebral disc 50894779 M51.9 S/P laminectom y Hypercholesterolemia 136 45657 E78.00 Decreased hearing 906695 001 H91.93 [id number] Fernie Fernandes DO [facility] [address] [facility],[place] [address] 11/01/2018 11:36:08 11/01/2018 12:10:37 Essential hypertension 16019398 I10 stable Degenerati on of intervertebral disc 97040297 M51.9 S/P laminectom y Hypercholesterolemia 136 00865 E78.00 taking lovastatin every other day - would really like to get off the med discussed diet for weight loss Insomnia G47.0 0 takes a half at bedtime to help her sleep lots of stress Body mass index 30+ - obesity 808481688 Z68.33 discussed diet strategies cutting out sugar [...] to have water and tea while fasting [id number] Fernie Fernandes DO [facility] [address] [facility],[place] [address] 06/10/2019 09:46:55 06/10/2019 10:42:39 Essential hypertension 57164105 I10 mildly elevated d/c hctz start lisinopril 10 mg Degenerati on of intervertebral disc 93677165 M51.9 S/P laminectom y Hypercholesterolemia 136 41877 E78.00 taking lovastatin every other day - would really like to get off the med discussed diet for weight loss Insomnia G47.0 0 takes a half at bedtime to help her sleep as needed lots of stress Body mass index 30+ - obesity 707159295 Z68.33 has lost about 10 lbs! has cut back her sugar intake due to her high bs last time Gastric reflux 543361294 K21.9 Hearing loss 98671965 H9 1.93 Advance care planning 71 2869097 Z71.89 HCP - planning to re-do her will/trust and update HCP [id number] Fernie Fernandes [facility] [address] [facility] [address] [address] 02/17/2020 10:22:21 02/17/2020 11:04:06 Essential hypertension 31669586 I10 will switch off losartan as patient states it makes her thirsty and dry mouth the patient would like to go back on HTCZ, will just monitor her kidney function more frequently Adult heal th examination 790603967 Z00.00 BP is elevated has been since switch from HTCZ to losartan will switch back and just watch kidneys closer never had issue with kidney function before on it Active or passive immunization 571292711 Z23 has shingle shot, old one long time ago getting flu shot at pharmacy [id number] Fernie Fernandes [facility] [address] [facility] [address] [address] 03/12/2020 14:10:33 03/12/2020 15:07:44 Pre-surgery evaluation 449174441 Z01.818 based on exam and history will clear for surgery pending labs and EKG will fax EKG separately after reading results [id number] Fernie Fernandes [facility] [address] [facility] 7 05/18/2020 08:44:16 05/18/2020 10:08:45 Essential hypertension 00589359 I10 BP has been stable on the HTCZ, no side effects CMP looks good as well Osteoarthritis 317414045 M19.90 improvemen t with surgery and PT, if need surgeon will clear out arthritis behind her patella [id number] Fernie Fernandes [facility] [address] [facility] [address] [address] 05/13/2021 10:59:04 05/13/2021 12:18:39 Essential hypertension 51243565 I10 BP has been stable with other checks and with recheck in office Hypercholesterolemia 136 67053 E78.2 will recheck labsdiscus sed stopping as she has muscle aches with it constantly [id number] Fernie Fernandes [facility] [address] [facility] [address] [address] 09/07/2021 11:09:39 09/12/2021 09:03:07 Hypercholesterolemia 28041468 E78.2 will recheck labsdiscus sed stopping as she has muscle aches with it constantly Essential hypertension 48837219 I10 BP has been stable with other checks and with recheck in office Degenerati on of intervertebral disc 67887403 M51.06 seeing PT for the next 6 weeks Insomnia 834569113 G47.0 0 stable Rosacea 632671457 L71.8 will trial a course of metronidaz ole cream for use Health Concerns Section Related Observation LastModified by Organization Detai ls LastModified Time None Recorded Concern Status LastModified by Organization Details LastModified Time None Recorded Advance Directives Directive None Recorded Payers Insurance Date Sequence Insurance Name Policy Number Policy Dotson Covered Member ID Dotson Member ID Guarantor Name 02/07/2022 2 [employer] Crystal Holly [id number] Crystal Collbran 07/11/2023 1 MEDICARE B-CO: [facility] Crystal G Holly [id number] Crystal Holly Notes Date Note Type Note [...] andgood lighting in the home. DICKSON STONE [address] [place] [address], [address], [facility] 02/17/2020 10:47:42 0 [...] be performed, (left knee arthroscopy dr. larson, [place] [facility]). [facility] STONE [address] [place], [address], [facility] 03/12/2020 15:56:29 0 text/html ROS [...] sore throat, no fatigue [facility]ICK[facility] STONE [address] [place], [address], [facility] 05/18/2020 10:08:45 1 text/html ROS [...] to her side effects [facility]ICK[facility] STONE [address] [place], [address], [facility] 05/13/2021 11:43:58 2 text/html ROS [...] questions and concerns answered today [facility]ICK[facility] STONE [address] [place] [address], [place], [address], [facility] 09/07/2021 11:39:36 OBGyn Episode No OBEpisode recorded.
--- OUTSIDE RECORDS SUMMARY | 2025-04-22 17:21 | XMS_ITS | Encounter Summary ---
Author Organization [facility] Address [address] [place] [address] Care Team Providers Care Car Customizer Name Role Phone Leonardo García MD Primary Care Provider [phone] Encounter Details Date Type Department Care Team (Late st Contact Info) Description 07/06/2024 Lab Requisition [facility] - Main Lab [address] [facility] [place] [phone] Chris Barlwo MD [address] [place] [address] Encounter for other general examination Social History [...] Escherichia coli(A) JUDIE 07/08/2024 8:28 AM EST [facility] Urine Urine [...] JUDIE <=4 ug/ml: Susceptible Escherichia coli Ceftazidime JUIDE <=0.5 ug/ml: Susceptible Escherichia coli Ceftriaxone JUDIE [...] MICROBIOLOGY - GENERAL ALONDRA ROTH Final Result [facility] [address] [place] [address], * Jay urine culture tube (07/06/2024 10:07 AM EST) [facility] Extra Tube Hold for add-ons. 07/06/2024 4:[address] [facility] Comment:Auto resulted. Urine Urine specimen obtained by clean catch procedure / Unknown 07/06/2024 10:07 AM EST 07/06/2024 2:09 PM EST us Chris Barlow MD LAB URINE ORDERABLES Final Resu lt [facility] [address] [place] [address], [place] [phone] * (ABNORMAL) Urinalysis with reflex microscopic and culture (07/06/2024 10:07 AM EST) [facility] Specific [place] Urine 1.022 1.003 - 1.030 LAB URINALYSIS - AUTOMATED METHOD 07/06/2024 3:[address] [facility] pH, Urine 5.5 5.0 - 8.0 pH LAB URINALYSIS - AUTOMATED METHOD 07/06/2024 3:[address] [facility] Leukocytes, Urine Large(A) Negative LAB URINALYSIS - AUTOMATED METHOD 07/06/2024 3:[address] [facility] Nitrite, Urine Positive(A) Negative LAB URINALYSIS - AUTOMATED METHOD 07/06/2024 3:[address] [facility] Protein, Urine Negative <=Trace mg/dL LAB URINALYSIS - AUTOMATED METHOD 07/06/2024 3:[address] [facility] Glucose, Urine Negative Negative mg/dL LAB URINALYSIS - AUTOMATED METHOD 07/06/2024 3:[address] [facility] Ketones, Urine Negative Negative mg/dL LAB URINALYSIS - AUTOMATED METHOD 07/06/2024 3:[address] [facility] Urobilinogen , Urine 1.0 0.2 - 1.0 mg/dL LAB URINALYSIS - AUTOMATED METHOD 07/06/2024 3:05 PM EST [facility] Bilirubin, Urine Negative Negative LAB URINALYSIS - AUTOMATED METHOD 07/06/2024 3:05 PM EST [facility] Blood, Urine Trace(A) Negative LAB URINALYSIS - AUTOMATED METHOD 07/06/2024 3:05 PM EST [facility] Urine Urine specimen obtained by clean catch procedure / Unknown 07/06/2024 10:07 AM EST 07/06/2024 2:07 PM EST us Chris Barlow MD LAB URINE ORDERABLES Final Resu lt [facility] [address] [place] [address], documented in this encounter Visit Diagnoses Diagnosis Encounter for other general examination documented in this encounter Additional Health Concerns Infection Onset Date Last Indicated Resolved Time Respiratory Rule-Out 07/26/2024 07/26/2024 025 3:02 AM EST COVID-19 Rule-Out 07/26/2024 07/26/2024 07/26/2024 3:02 AM EST documented as of this encounter Care Teams Car Customizer Relationship Specialty Start Date End Date Leonardo García MD [address] [place] [address] PCP - General Internal Medicine 06/30/24 documented as of this encounter
--- OUTSIDE RECORDS SUMMARY | 2025-04-22 17:21 | XMS_ITS | Encounter Summary ---
Author Organization [facility] Address [address] [place] [address] Care Team Providers Care Safety Teacher Name Role Phone Leonardo García MD Primary Care Provider [phone] Encounter Details Date Type Department Care Team (Late st Contact Info) Description 06/21/2024 Lab Requisition [facility] - Main Lab [address] [facility] [place] [phone] Chris Barlow MD [address] [place] [address] Encounter for other general examination Social History [...] CBC auto differential (06/21/2024 7:13 AM EST) [facility] WBC 8.0 4.8 - 10.8 K/mcL LAB HEMETOLOGY METHOD 06/21/2024 10:55 AM [facility] RBC 3.50(L) 3.80 - 4.80 M/mcL LAB HEMETOLOGY METHOD 06/21/2024 10:55 AM [facility] Hemoglobin 10.5(L) 11.5 - 16.0 g/dL LAB HEMETOLOGY METHOD 06/21/2024 10:55 AM [facility] Hematocrit 30.6(L) 35.0 - 47.0 % LAB HEMETOLOGY METHOD 06/21/2024 10:55 AM [facility] MCV 88.7 79.0 - 98.0 FL LAB HEMETOLOGY METHOD 06/21/2024 10:55 AM [facility] MCH 30.4 27.0 - 32.0 pcg LAB HEMETOLOGY METHOD 06/21/2024 10:55 AM [facility] MCHC 34.3 32.0 - 37.0 g/dL LAB HEMETOLOGY METHOD 06/21/2024 10:55 AM [facility] RDW 13.4 11.0 - 15.0 % LAB HEMETOLOGY METHOD 06/21/2024 10:55 AM [facility] Platelets 257 130 - 400 K/mcL LAB HEMETOLOGY METHOD 06/21/2024 10:55 AM [facility] MPV 9.7 7.0 - 11.0 FL LAB HEMETOLOGY METHOD 06/21/2024 10:55 AM [facility] NRBC 0.0 <1.0 % LAB HEMETOLOGY METHOD 06/21/2024 10:55 AM [facility] NRBC Absolute 0.00 <0.10 K/mcL LAB HEMETOLOGY METHOD 06/21/2024 10:55 AM [facility] Neutrophils Relative 73.2 % LAB HEMETOLOGY METHOD 06/21/2024 10:55 AM [facility] Lymphocytes Relative 16.0 % LAB HEMETOLOGY METHOD 06/21/2024 10:55 AM [facility] Monocytes Relative 7.3 % LAB HEMETOLOGY METHOD 06/21/2024 10:55 AM [facility] Eosinophils Relative 2.3 % LAB HEMETOLOGY METHOD 06/21/2024 10:55 AM [facility] Basophils Relative 0.6 % LAB HEMETOLOGY METHOD 06/21/2024 10:55 AM [facility] Immature Granulocytes Relative 0.6 % LAB HEMETOLOGY METHOD 06/21/2024 10:55 AM [facility] Neutrophils Absolute 5.84 1.50 - 7.00 K/mcL LAB HEMETOLOGY METHOD 06/21/2024 10:55 AM [facility] Lymphocytes Absolute 1.28 1.00 - 5.00 K/mcL LAB HEMETOLOGY METHOD 06/21/2024 10:55 AM [facility] Monocytes Absolute 0.58 0.20 - 1.00 K/mcL LAB HEMETOLOGY METHOD 06/21/2024 10:55 AM [facility] Eosinophils Absolute 0.18 0.00 - 0.50 K/mcL LAB HEMETOLOGY METHOD 06/21/2024 10:55 AM [facility] Basophils Absolute 0.05 0.00 - 0.20 K/mcL LAB HEMETOLOGY METHOD 06/21/2024 10:55 AM [facility] Immature Granulocytes Absolute 0.05(H) 0.00 - 0.03 K/mcL LAB HEMETOLOGY METHOD 06/21/2024 10:55 AM EST [facility] Blood Venous blood specimen / Unknown Venipuncture / Unknown 06/21/2024 7:13 AM EST 06/21/2024 10:03 AM EST us Chris Barlow MD LAB BLOOD ORDERABLES Final Resu lt Performing Organization Address City/[facility]/ZIP Co de Phone Number [facility] [address] [place] [address], [place] [phone] * (ABNORMAL) Magnesium (06/21/2024 7:13 AM EST) Magnesium 1.7(L) 1.9 - 2.6 mg/dL LAB CHEMISTRY METHOD 06/21/2024 11:21 AM EST [facility] Blood Venous blood specimen / Unknown Venipuncture / Unknown 06/21/2024 7:13 AM EST 06/21/2024 10:03 AM EST us Chris Barlow MD LAB BLOOD ORDERABLES Final Resu lt Performing Organization Address [facility] Co de Phone Number [facility] [address] [place] [address], [place] [phone] * (ABNORMAL) Comprehensive metabolic panel (06/21/2024 7:13 AM EST) Sodium 138 133 - 145 mmol/L LAB CHEMISTRY METHOD 06/21/2024 11:50 AM EST [facility] Potassium 2.8(LL) 3.5 - 5.5 mmol/L LAB CHEMISTRY METHOD 06/21/2024 11:50 AM EST [facility] Chloride 103 96 - 110 mmol/L LAB CHEMISTRY METHOD 06/21/2024 11:50 AM EST [facility] CO2 30 21 - 32 mmol/L LAB CHEMISTRY METHOD 06/21/2024 11:50 AM [facility] Anion Gap 5 3 - 11 LAB CHEMISTRY METHOD 06/21/2024 11:50 AM [facility] Glucose 109(H) 70 - 100 mg/dL LAB CHEMISTRY METHOD 06/21/2024 11:50 AM [facility] BUN 8 5 - 25 mg/dL LAB CHEMISTRY METHOD 06/21/2024 11:50 AM [facility] Creatinine 0.62 0.50 - 1.10 mg/dL LAB CHEMISTRY METHOD 06/21/2024 11:50 AM [facility] eGFR 89 >=60 mL/min/1. 73m2 LAB CHEMISTRY METHOD 06/21/2024 11:50 AM [facility] Comment:Calculation based on the Chronic Kidney Disease Epidemiology Collaboration (CKD-EPI) equation refit without adjustment for race. BUN/Creatinine Ratio 12.9 LAB CHEMISTRY METHOD 06/21/2024 11:50 AM [facility] Calcium 8.4(L) 8.5 - 10.5 mg/dL LAB CHEMISTRY METHOD 06/21/2024 11:50 AM [facility] AST (SGOT) 71(H) 10 - 42 unit/L LAB CHEMISTRY METHOD 06/21/2024 11:50 AM [facility] ALT (SGPT) 46 10 - 60 unit/L LAB CHEMISTRY METHOD 06/21/2024 11:50 AM [facility] Alkaline Phosphatase 95 42 - 121 unit/L LAB CHEMISTRY METHOD 06/21/2024 11:50 AM [facility] Total Protein 5.6(L) 6.0 - 8.0 g/dL LAB CHEMISTRY METHOD 06/21/2024 11:50 AM [facility] Albumin 2.9(L) 3.2 - 5.0 g/dL LAB CHEMISTRY METHOD 06/21/2024 11:50 AM [facility] Total Bilirubin 0.7 0.0 - 1.4 mg/dL LAB CHEMISTRY METHOD 06/21/2024 11:50 AM EST [facility] Blood Venous blood specimen / Unknown Venipuncture / Unknown 06/21/2024 7:13 AM EST 06/21/2024 10:03 AM EST us Chris Barlow MD LAB BLOOD ORDERABLES Final Resu lt [facility] [address] [place] [address], documented in this encounter Visit Diagnoses Diagnosis Encounter for other general examination documented in this encounter Additional Health Concerns Infection Onset Date Last Indicated Resolved Time Respiratory Rule-Out 07/26/2024 07/26/2024 025 3:02 AM EST COVID-19 Rule-Out 07/26/2024 07/26/2024 07/26/2024 3:02 AM EST documented as of this encounter Care Teams Safety Teacher Relationship Specialty Start Date End Date Leonardo García MD [address] [place] [address] PCP - General Internal Medicine 06/30/24 documented as of this encounter
--- OUTSIDE RECORDS SUMMARY | 2025-04-22 17:21 | XMS_ITS | Encounter Summary ---
Author Organization [facility] Address [address] [place] [address] Care Team Providers Care Counter Top Maker Name Role Phone Leonardo García MD Primary Care Provider [phone] Encounter Details Date Type Department Care Team (Late st Contact Info) Description 06/22/[address] [facility] - Main Lab [address] [facility] [place] [address] Chris Barlow MD [address] [place] [address] Encounter for other general examination Social History [...] mmol/L LAB CHEMISTRY METHOD 06/22/2024 9:17 AM [facility] Potassium 3.4(L) 3.5 - 5.5 mmol/L LAB CHEMISTRY METHOD 06/22/2024 9:17 AM [facility] Chloride 101 96 - 110 mmol/L LAB CHEMISTRY METHOD 06/22/2024 9:17 AM [facility] CO2 28 21 - 32 mmol/L LAB CHEMISTRY METHOD 06/22/2024 9:17 AM [facility] Anion Gap 8 3 - 11 LAB CHEMISTRY METHOD 06/22/2024 9:17 AM [facility] Glucose 128(H) 70 - 100 mg/dL LAB CHEMISTRY METHOD 06/22/2024 9:17 AM [facility] BUN 14 5 - 25 mg/dL LAB CHEMISTRY METHOD 06/22/2024 9:17 AM [facility] Creatinine 0.60 0.50 - 1.10 mg/dL LAB CHEMISTRY METHOD 06/22/2024 9:17 AM [facility] eGFR 90 >=60 mL/min/1. 73m2 LAB CHEMISTRY METHOD 06/22/2024 9:17 AM [facility] Comment:Calculation based on the Chronic Kidney Disease Epidemiology Collaboration (CKD-EPI) equation refit without adjustment for race. BUN/Creatinine Ratio 23.3 LAB CHEMISTRY METHOD 06/22/2024 9:17 AM [facility] Calcium 8.3(L) 8.5 - 10.5 mg/dL LAB CHEMISTRY METHOD 06/22/2024 9:17 AM [facility] Blood Venous blood specimen / Unknown Venipuncture / Unknown 06/22/2024 6:05 AM EST 06/22/2024 8:27 AM EST us Chris Barlow MD LAB BLOOD ORDERABLES Final Resu lt [facility] [address] [place] [address], [place] [phone] documented in this encounter Visit Diagnoses Diagnosis Encounter for other general examination documented in this encounter Additional Health Concerns Infection Onset Date Last Indicated Resolved Time Respiratory Rule-Out 07/26/2024 07/26/2024 025 3:02 AM EST COVID-19 Rule-Out 07/26/2024 07/26/2024 07/26/2024 3:02 AM EST documented as of this encounter Care Teams Counter Top Maker Relationship Specialty Start Date End Date Leonardo García MD [address] [place] [address] PCP - General Internal Medicine 06/30/24 documented as of this encounter
--- OUTSIDE RECORDS SUMMARY | 2025-04-22 17:21 | XMS_ITS | Clinical Summary ---
Author Organization [facility] Address [address] [place] [address] Care Team Providers Care Run Boat Operator Name Role Phone Unavailable Primary Care [...]
--- OUTSIDE RECORDS SUMMARY | 2025-04-22 17:21 | XMS_ITS | Clinical Summary ---
Author Organization [facility] Address [address] [place] [address] Care Team Providers Care Steel Rule Die Maker Name Role Phone Ashleigh Grullon MD Primary Care Provider [phone] Allergies Active Allergy Reactions Criticality Noted Date Comments Ampicillin Anaphylaxis High 08/15/2017 Chloramphenicol Anaphylaxis High 08/15/2017 Cossayuna 08/30/2017 Tape Rash Medium 08/30/2017 Paper tape, [...] MORNING AND IN THE EVENING 0 Active [place]-3 Fatty Acids (OMEGA-3 FISH OIL PO) Take [...] Immunizations Name Administration Dates Next Due Covid-19 ([employer]) Dilution Required 05/11/2021,0 08/04/2020,07/14/2020 Social History Tobacco [...] this topic Medical Devices Implanted Type Area Manufacturing Chief Engineer Device Identifier Shelf Expiration Date Model / Serial / Lot Screw 6.5 X 45.Mm - [id number] - [id number] Implanted:Qty : 1 on 08/30/2017 by Emeka Lopez MD at [facility] Posterior: Spine Lumbar [employer] 1067.1645 / / 6.5 X 50mm Screw Modular Creo Amp - [id number] - [id number] Implanted:Qty : 3 on 08/30/2017 by Emeka Lopez MD at [facility] Posterior: Spine Lumbar [employer] 1067.1650 / / 5.5 Polyaxial Tulip Threaded Creo Amp - [id number] - [id number] Implanted:Qty : 4 on 08/30/2017 by Emeka Lopez MD at [facility] Posterior: Spine Lumbar [employer] 1119.0110 / / 5.5 Threaded Locking Cap Creo - [id number] - [id number] Implanted:Qty : 4 on 08/30/2017 by Emeka Lopez MD at [facility] Posterior: Spine Lumbar [employer] 1119.0010 / / 5.5mm Curved Gurpreet Titanium Alloy 40mm Length - [id number] - [id number] Implanted:Qty : 2 on 08/30/2017 by Emeka Lopez MD at [facility] Posterior: Spine Lumbar [facility] 1119.7040 / / Lp Hex Screw 6.5x20mm Stry-Howm 3927-0066-220 457 - [id number] Implanted:Qty : 1 on 02/16/2022 by Ottoniel Wells MD at [facility] Left: Hip [facility] [id number] 11/23/2026 5036-7566 / / [id number] Hip Insrt X3 Trident 0d 36mm E Stry-How 395-71-47a-20 0921 - [id number] Implanted:Qty : 1 on 02/16/2022 by Ottoniel Wells MD at [facility] Left: Hip [facility] [id number] 09/24/2025 623-10-36 E / / [id number] Hip Stm Parveen 127 #2 30 124 Stry-How 6859-1937t-99 7932 - [id number] Implanted:Qty : 1 on 02/16/2022 by Ottoniel Wells MD at [facility] Left: Hip [facility] [id number] 10/21/2026 0261-1093 D / / [id number] Plug Bone Sm Stry-How 8866-5-931-14 3871 - [id number] Implanted:Qty : 1 on 02/16/2022 by Ottoniel Wells MD at [facility] Left: Hip [facility] [id number] 11/16/2026 6215-5-00 1 / / [id number] E Hip Dist Spacer [facility]8 Stry-Howm 4627-8249-109 590 - [id number] Implanted:Qty : 1 on 02/16/2022 by Ottoniel Wells MD at [facility] Left: Hip [facility] [id number] 01/19/2027 5423-7207 / / [id number] Hip Head Delta Biolox 36mm-2.5 Stry-Howm 0468-3-946-54 9191 - [id number] Implanted:Qty : 1 on 02/16/2022 by Ottoniel Wells MD at [facility] Left: Hip [facility] [id number] 11/10/2026 6570-0-43 6 / / [id number] Cement Bone Surg Simplex Radiopq Stry-Howm 8635-3-788-11 4092 - [id number] Implanted:Qty : 1 on 02/16/2022 by Ottoniel Wells MD at [facility] Left: Hip [facility] [id number] 05/03/2023 6190-06-04 0 / / [id number] Cement Bone Surg Simplex Radiopq Stry-Howm 6128-3-017-11 4092 - [id number] Implanted:Qty : 1 on 02/16/2022 by Ottoniel Wells MD at [facility] Left: Hip [facility] [id number] 05/03/2023 6190-06-04 0 / / [id number] Lp Hex Screw 6.5x30mm Stry-Howm 7467-2276-127 478 - [id number] Implanted:Qty : 1 on 02/16/2022 by Ottoniel Wells MD at [facility] Left: Hip [facility] [id number] 12/15/2026 1450-0713 / / [id number] Tritanium Cluster Hole Shell 52mm Stry-Howm 029-68-85o-77 0473 - [id number] Implanted:Qty : 1 on 02/16/2022 by Ottoniel Wells MD at [facility] Left: Hip [facility] [id number] 09/28/2026 702-04-52 E / / [id number] Advance Directives For more information, please contact: [phone] Documents on File Type Date Recorded Patient Loss Prevention Analyst Expl anation Advance Directive and Living Will [...] way: discussion with patient . Care Teams Steel Rule Die Maker Relationship Specialty Start Date End Date Ashleigh Grullon MD [address] [place] [facility] [place] [address] PCP - General Research & Analytics Manager 01/02/22
--- OUTSIDE RECORDS SUMMARY | 2025-04-22 17:21 | XMS_ITS | Clinical Summary ---
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 ([facility] V24, [facility] V28) 07/18/2024 Gastro-esophageal reflux disease without esophag [...] LAMINECTOMY DECOMPRESSION; Surgeon: Emeka Lopez MD; Location: [facility]; Service: Spine; Laterality: Bilateral Posterior; LUMBAR FUSION 08/30/2017 Bilateral Posterior PROCEDURE:LUMBAR FUSION;COMMENT:Procedure: L4 - 5 FUSION SPINE LUMBAR POSTERIOR, INSTRUMENTED ARTHRODESIS; Surgeon: Emeka Lopez MD; Location: [facility]; Service: Spine; Laterality: Bilateral Posterior; AUTOGRAFT/SPINE SURGERY 08/30/2017 Left PROCEDURE:AUTOGRAFT/SPINE SURGERY;COMMENT:Procedure: AUTOGRAFT BONE SPINE; Surgeon: Emeka Lopez MD; Location: [facility]; Service: Spine; Laterality: Left; TOTAL KNEE ARTHROPLASTY 01/03/2021 Left PROCEDURE:TOTAL KNEE ARTHROPLASTY TOTAL HIP ARTHROPLASTY 02/16/2022 Left PROCEDURE:TOTAL HIP ARTHROPLASTY;COMMENT:Proce dure: REPLACEMENT TOTAL HIP; Surgeon: Ottoniel Wells MD; Location: [facility] Service: Orthopedics; Laterality: Left; Medical History Medical History Date Comments Bronchitis, chronic ([facility] V24, [facility] V28) DX:Bronchitis, chronic ([facility]);COMMENT:May 2017 GERD (gastroesophageal reflux disease) DX:GERD (gastroesophageal [...] Safety Answer Date Record ed Physical Abuse Unrecognized value 07/25/2024 Verbal Abuse Unrecognized value 07/25/2024 Comments Unknown Sex and Gender Information [...] this topic Medical Devices Implanted Type Area Service Developer Device Identifier Shelf Expiration Date Model / Serial / Lot Cement Bone Surg Simplex Radiopq [facility] 6735-4-805-114 092 Implanted:Qty: 1 on 02/16/2022 by Ottoniel Wells MD Left: Hip [employer] [id number] 05/03/2023 6191-1-010 / / [id number] Hip Head Delta Biolox 36mm-2.5 [facility] 6124-9-958-549 191 Implanted:Qty: 1 on 02/16/2022 by Ottoniel Wells MD Left: Hip [employer] [id number] 11/10/2026 6570-0-436 / / [id number] Cement Bone Surg Simplex Radiopq Stry-Howm 8001-1-785-114 092 Implanted:Qty: 1 on 02/16/2022 by Ottoniel Wells MD Left: Hip [employer] [id number] 05/03/2023 6191-1-010 / / [id number] Lp Hex Screw 6.5x30mm Stry-Howm 5426-1750-2212 78 Implanted:Qty: 1 on 02/16/2022 by Ottoniel Wells MD Left: Hip [employer] [id number] 12/15/2026 5059-2603 / / XH8 Tritanium Cluster Hole Shell 52mm Stry-Howm 257-31-79d-770 473 Implanted:Qty: 1 on 02/16/2022 by Ottoniel Wells MD Left: Hip [employer] [id number] 09/28/2026 702-04-52E / / [id number] Lp Hex Screw 6.5x20mm Stry-Howm 7957-5694-9558 57 Implanted:Qty: 1 on 02/16/2022 by Ottoniel Wells MD Left: Hip [employer] [id number] 11/23/2026 5295-1060 / / [id number] Hip Insrt X3 Trident 0d 36mm E Stry-Howm 377-59-25l-200 921 Implanted:Qty: 1 on 02/16/2022 by Ottoniel Wells MD Left: Hip [employer] [id number] 09/24/2025 623-10-36E / / [id number] Hip Stm Parveen 127 #2 30 124 Stry-Howm 1449-3585b-469 932 Implanted:Qty: 1 on 02/16/2022 by Ottoniel Wells MD Left: Hip [employer] [id number] 10/21/2026 6057-0230D / / [id number] Plug Bone Sm Stry-Howm 5114-1-943-143 871 Implanted:Qty: 1 on 02/16/2022 by Ottoniel Wells MD Left: Hip [employer] [id number] 11/16/2026 6215-5-001 / / [id number] Hip Dist Spacer [facility] #8 Stry-Ana 8701-6398-2224 90 Implanted:Qty: 1 on 02/16/2022 by Ottoniel Wells MD Left: Hip [employer] [id number] 01/19/2027 2707-7437 / / [id number] Procedures Procedure Name Priority Date/Time Associated Diagnosis Comments BASIC METABOLIC PANEL Routine 07/27/2024 6:22 AM EST from Last 3 Months or Most Recently Relevant to Health Maintenance Results * (ABNORMAL) Basic metabolic panel (07/27/2024 6:22 AM EST) Sodium 137 133 - 145 mmol/L LAB CHEMISTRY METHOD 07/27/2024 7:47 AM [facility] Potassium 3.6 3.5 - 5.5 mmol/L LAB CHEMISTRY METHOD 07/27/2024 7:47 AM [facility] Chloride 103 96 - 110 mmol/L LAB CHEMISTRY METHOD 07/27/2024 7:47 AM [facility] CO2 29 21 - 32 mmol/L LAB CHEMISTRY METHOD 07/27/2024 7:47 AM [facility] Anion Gap 5 3 - 11 LAB CHEMISTRY METHOD 07/27/2024 7:47 AM [facility] Glucose 110(H) 70 - 100 mg/dL LAB CHEMISTRY METHOD 07/27/2024 7:47 AM [facility] BUN 10 5 - 25 mg/dL LAB CHEMISTRY METHOD 07/27/2024 7:47 AM [facility] Creatinine 0.49(L) 0.50 - 1.10 mg/dL LAB CHEMISTRY METHOD 07/27/2024 7:47 AM [facility] eGFR 94 >=60 mL/min/1. 73m2 LAB CHEMISTRY METHOD 07/27/2024 7:47 AM EST [facility] Comment:Calculation based on the Chronic Kidney Disease Epidemiology Collaboration (CKD-EPI) equation refit without adjustment for race. BUN/Creatinine Ratio 20.4 LAB CHEMISTRY METHOD 07/27/2024 7:47 AM EST [facility] Calcium 9.4 8.5 - 10.5 mg/dL LAB CHEMISTRY METHOD 07/27/2024 7:47 AM EST [facility] Blood Venous blood specimen / Unknown Venipuncture / Unknown 07/27/2024 6:22 AM EST 07/27/2024 7:10 AM EST Jeannie FORMAN LAB BLOOD ORDERABLES Final Result [facility] [address] [place] [address], from Last 3 Months or Most Recently Relevant to Health Maintenance Insurance MEDICARE [facility] Advance Directives Documents on File Type Date Recorded Patient Engine Builder Expl anation Health Care Decision (hx) 02/16/2022 [...] currently active code status orders. Care Teams Beam Builder Relationship Specialty Start Date End Date Leonardo García MD [address] [place] [address] PCP - General Internal Medicine 06/30/24
--- OUTSIDE RECORDS SUMMARY | 2025-04-22 17:21 | XMS_ITS | Encounter Summary ---
Author Organization [facility] Address [address] [place] [address] Care Team Providers Care Battalion Fire Chief Name Role Phone Leonardo García MD Primary Care Provider [phone] Encounter Details Date Type Department Care Team (Late st Contact Info) Description 07/05/[address] [facility] - Main Lab [address] [facility] [place] [phone] Chris Barlow MD [address] [place] [address] Encounter for other general examination Social History [...] auto differential (07/05/2024 7:00 AM EST) [facility] WBC 9.9 4.8 - 10.8 K/mcL LAB HEMETOLOGY METHOD 07/05/2024 11:42 AM [facility] RBC 3.60(L) 3.80 - 4.80 M/mcL LAB HEMETOLOGY METHOD 07/05/2024 11:42 AM [facility] Hemoglobin 10.7(L) 11.5 - 16.0 g/dL LAB HEMETOLOGY METHOD 07/05/2024 11:42 AM [facility] Hematocrit 32.8(L) 35.0 - 47.0 % LAB HEMETOLOGY METHOD 07/05/2024 11:42 AM [facility] MCV 92.1 79.0 - 98.0 FL LAB HEMETOLOGY METHOD 07/05/2024 11:42 AM [facility] MCH 30.1 27.0 - 32.0 pcg LAB HEMETOLOGY METHOD 07/05/2024 11:42 AM [facility] MCHC 32.6 32.0 - 37.0 g/dL LAB HEMETOLOGY METHOD 07/05/2024 11:42 AM [facility] RDW 14.2 11.0 - 15.0 % LAB HEMETOLOGY METHOD 07/05/2024 11:42 AM [facility] Platelets 439(H) 130 - 400 K/mcL LAB HEMETOLOGY METHOD 07/05/2024 11:42 AM [facility] MPV 8.9 7.0 - 11.0 FL LAB HEMETOLOGY METHOD 07/05/2024 11:42 AM EST [facility] NRBC 0.0 <1.0 % LAB HEMETOLOGY METHOD 07/05/2024 11:42 AM [facility] NRBC Absolute 0.00 <0.10 K/mcL LAB HEMETOLOGY METHOD 07/05/2024 11:42 AM [facility] Neutrophils Relative 71.2 % LAB HEMETOLOGY METHOD 07/05/2024 11:42 AM [facility] Lymphocytes Relative 16.3 % LAB HEMETOLOGY METHOD 07/05/2024 11:42 AM [facility] Monocytes Relative 10.4 % LAB HEMETOLOGY METHOD 07/05/2024 11:42 AM [facility] Eosinophils Relative 1.2 % LAB HEMETOLOGY METHOD 07/05/2024 11:42 AM [facility] Basophils Relative 0.4 % LAB HEMETOLOGY METHOD 07/05/2024 11:42 AM [facility] Immature Granulocytes Relative 0.5 % LAB HEMETOLOGY METHOD 07/05/2024 11:42 AM [facility] Neutrophils Absolute 7.06(H) 1.50 - 7.00 K/mcL LAB HEMETOLOGY METHOD 07/05/2024 11:42 AM [facility] Lymphocytes Absolute 1.62 1.00 - 5.00 K/mcL LAB HEMETOLOGY METHOD 07/05/2024 11:42 AM [facility] Monocytes Absolute 1.03(H) 0.20 - 1.00 K/mcL LAB HEMETOLOGY METHOD 07/05/2024 11:42 AM [facility] Eosinophils Absolute 0.12 0.00 - 0.50 K/mcL LAB HEMETOLOGY METHOD 07/05/2024 11:42 AM [facility] Basophils Absolute 0.04 0.00 - 0.20 K/mcL LAB HEMETOLOGY METHOD 07/05/2024 11:42 AM [facility] Immature Granulocytes Absolute 0.05(H) 0.00 - 0.03 K/mcL LAB HEMETOLOGY METHOD 07/05/2024 11:[address] [facility] Blood Venous blood specimen / Unknown Venipuncture / Unknown 07/05/2024 7:00 AM EST 07/05/2024 10:39 AM EST Chris Barlow MD LAB BLOOD ORDERABLES Final Resu lt Performing Organization Address City/[facility]/ZIP Co de Phone Number [facility] [address] [place] [address], [place] [phone] * Magnesium (07/05/2024 7:00 AM EST) Pathologist [facility] Magnesium 2.4 1.9 - 2.6 mg/dL LAB CHEMISTRY METHOD 07/05/2024 12:[address] [facility] Blood Venous blood specimen / Unknown Venipuncture / Unknown 07/05/2024 7:00 AM EST 07/05/2024 10:39 AM EST Chris Barlow MD LAB BLOOD ORDERABLES Final Resu lt Performing Organization Address [facility]/ZIP Co de Phone Number [facility] [address] [place] [address], [place] [phone] * (ABNORMAL) Comprehensive metabolic panel (07/05/2024 7:00 AM EST) Sodium 132(L) 133 - 145 mmol/L LAB CHEMISTRY METHOD 07/05/2024 12:[address] [facility] Potassium 4.3 3.5 - 5.5 mmol/L LAB CHEMISTRY METHOD 07/05/2024 12:[address] [facility] Chloride 98 96 - 110 mmol/L LAB CHEMISTRY METHOD 07/05/2024 12:[address] [facility] CO2 28 21 - 32 mmol/L LAB CHEMISTRY METHOD 07/05/2024 12:14 PM [facility] Anion Gap 6 3 - 11 LAB CHEMISTRY METHOD 07/05/2024 12:14 PM [facility] Glucose 95 70 - 100 mg/dL LAB CHEMISTRY METHOD 07/05/2024 12:14 PM [facility] BUN 21 5 - 25 mg/dL LAB CHEMISTRY METHOD 07/05/2024 12:14 PM [facility] Creatinine 0.80 0.50 - 1.10 mg/dL LAB CHEMISTRY METHOD 07/05/2024 12:14 PM [facility] eGFR 74 >=60 mL/min/1. 73m2 LAB CHEMISTRY METHOD 07/05/2024 12:14 PM [facility] Comment:Calculation based on the Chronic Kidney Disease Epidemiology Collaboration (CKD-EPI) equation refit without adjustment for race. BUN/Creatinine Ratio 26.3 LAB CHEMISTRY METHOD 07/05/2024 12:14 PM [facility] Calcium 8.9 8.5 - 10.5 mg/dL LAB CHEMISTRY METHOD 07/05/2024 12:14 PM [facility] AST (SGOT) 20 10 - 42 unit/L LAB CHEMISTRY METHOD 07/05/2024 12:14 PM [facility] ALT (SGPT) 50 10 - 60 unit/L LAB CHEMISTRY METHOD 07/05/2024 12:14 PM [facility] Alkaline Phosphatase 203(H) 42 - 121 unit/L LAB CHEMISTRY METHOD 07/05/2024 12:14 PM [facility] Total Protein 6.1 6.0 - 8.0 g/dL LAB CHEMISTRY METHOD 07/05/2024 12:14 PM [facility] Albumin 3.5 3.2 - 5.0 g/dL LAB CHEMISTRY METHOD 07/05/2024 12:14 PM [facility] Total Bilirubin 0.9 0.0 - 1.4 mg/dL LAB CHEMISTRY METHOD 07/05/2024 12:14 PM EST [facility] Blood Venous blood specimen / Unknown Venipuncture / Unknown 07/05/2024 7:00 AM EST 07/05/2024 10:39 AM EST us Chris Barlow MD LAB BLOOD ORDERABLES Final Resu lt [facility] [address] [place] [address], documented in this encounter Visit Diagnoses Diagnosis Encounter for other general examination documented in this encounter Additional Health Concerns Infection Onset Date Last Indicated Resolved Time Respiratory Rule-Out 07/26/2024 07/26/2024 025 3:02 AM EST COVID-19 Rule-Out 07/26/2024 07/26/2024 07/26/2024 3:02 AM EST documented as of this encounter Care Teams Battalion Fire Chief Relationship Specialty Start Date End Date Leonardo García MD [address] [place] [address] PCP - General Internal Medicine 06/30/24 documented as of this encounter
--- OUTSIDE RECORDS SUMMARY | 2025-04-22 17:21 | XMS_ITS | Patient Health Record ---
Author Organization [facility] Address [address] [place] [address] Care Team Providers Care Manager Property Name Role Phone Ashleigh Grullon MD Primary Care Provider Mukesh Taveras [phone] Allergies Allergen (clinical drug ingredient) Drug/Non Drug Allergy documented on EMR Reaction Allergy Type Onset Date Status ampicillin Ampicillin Unknown Drug Allergy Activ e tetracycline Tetracycline HCl Unknown Drug Allergy Active Reason For Referral No Information Medications Medication SIG (Take, Route, Frequency, Duration) Notes Start Date End Date Status amLODIPine Besylate 5 MG Tablet Oral; Duration: 60 Active Celecoxib 200 MG Capsule Oral; Duration: 30 Active Multivitamin - Tablet 1 tablet Orally On ce a day; Duration: 30 day(s) Active Omeprazole 40 MG Capsule Delayed Release 1 Oral Active tylenol Active Social History Social History Additional Details Category Social Info Options Details Miscellaneous: Marital status: Occupation: retired Section Notes: Nonsmoker; no sig alcohol Nonsmoker; no sig alcohol Problems Problem Type SNOMED Code ICD Code Onset Dates Problem Status W/U Status Risk Notes Problem Acute hemorrhagic gastritis (5806708) Acute gastritis with bleeding (K29.01) Active confirmed Problem Diverticular disease of colon (812492006) Diverticulosis of large intestine without perforation or abscess without bleeding (K57.30) Active confirmed Problem Iron deficiency anemia (02370797) Iron deficiency anemia (D50.9) Active confirmed Problem Hiatal hernia (81920052) Hiatal hernia (K44.9) Active confirmed Problem Chronic diarrhea (563839651) Chronic diarrhea (K52.9) Active confirmed Problem Chronic antral gastritis with hemorrhage (disorder) (400326503) Chronic gastritis with bleeding, unspecified gastritis type (K29.51) Active confirmed Problem Gastric ulcer (752831116) Gastric ulcer (K25.9) Active confirmed Problem Erosive gastritis (751932808796222 0) Gastritis, erosive (K29.60) Active confirmed Plan Of Treatment Future Test Test Name Order Date UPPER GI ENDOSCOPY 02/26/2014 COLONOSCOPY 02/26/2014 Insurance Providers Payer Name Payer Address Payer Phone Subscriber Number Group Number Insured Name Patient Relationship to Insured Coverage Start Date Coverage End Date MEDICARE OF [place] [address] [place] [id number] SRINIVASAN ALVARADO Self - patient is the insured [facility] SUPPLEMENTAL PLAN [address] [place] [address] [phone] [id number] SRINIVASAN ALVARADO Self - patient is the insured Medical (General) History Medical History History ICD Code Denies NH,DM,CVA,Lung [...]
== END ==
LOC: HO.SL 09:25
PROVIDERS: PCP Internal Medicine; Visit Provider Psychiatry & Neurology Neurology
DX: G47.33 Obstructive sleep apnea (adult) (pediatric) (principal); G47.10 Hypersomnia, unspecified; R06.83 Snoring
CPT/HCPCS: 95806

== ENCOUNTER → 2025-04-22 09:39 | Outpatient (BNV) | payer MEDICARE, SELFPAY | PROVIDERS: PCP Internal Medicine; Visit Provider Psychiatry & Neurology Neurology | DX: G47.33 Obstructive sleep apnea (adult) (pediatric) (principal) | CPT/HCPCS: 95806 ==